=== PATIENT | male | born 1935 | race Caucasian/White ===

== ENCOUNTER → 2016-10-24 | Outpatient (CLI) | payer BC ==
[~2016-10-24] MED LIST: ADVIN25/60 INH; ALBU1AER9 INH; ALEN70TA4 PO; AMOX875T PO; ASPI81TA85 PO; CALC500C70 PO; CELE100C PO; CELE1CAP30 PO; CHOL100010 PO; CLB100 PO; DOXY100C76 PO; FBR PO; FERR325T51 PO; FLUO20CA35 PO; FURO40TA3 PO; IPRASOL4 INH; LEVO150T9 PO; MCRK20 PO; MULT-845 PO; OMEP20CA9 PO; OXGN; POTA20TA16 PO; PRVHFAIN INH; SPRIN/30 INH; SULF800T23 PO; TAMS0.4C59 PO; VERA1TAB53 PO
[2016-10-24 12:26] LABS: ALT/SGPT 86 U/L (12-78); BLOOD UREA NITROGEN 23 mg/dl (7-18); BUN/CREATININE RATIO 17.8 (10-20); CALCIUM 8.8 mg/dl (8.5-10.1); CARBON DIOXIDE 26 mmol/L (21-32); CHLORIDE 109 mmol/L (98-107); GLUCOSE 76 mg/dl (70-99); MAGNESIUM 2.1 mg/dl (1.8-2.4); POTASSIUM 3.9 mmol/L (3.5-5.1); SODIUM 144 mmol/L (136-145)
[2016-10-24 12:29] LABS: ALKALINE PHOSPHATASE 66 U/L (45-117); AST/SGOT 42 U/L (15-37)
== END | disposition home or self-care (01) ==
LOC: C.LAB1850 10:48
PROVIDERS: ATTEND Internal Medicine
DX: E77.8 Other disorders of glycoprotein metabolism (principal)

== ENCOUNTER → 2016-12-01 | Outpatient (CLI) | payer BC ==
--- NOTE | 2016-12-01 16:40 | DIAGNOSTIC IMAGING REPORT ---
CHEST 2 VIEWS ROUTINE CLINICAL HISTORY: R05 [id number] Wheezing dyspnea COMPARISON STUDY: 05/20/2016 FINDINGS: Mild stable cardiomegaly. Chronic atelectatic change versus basilar fibrotic change left base. Lungs otherwise appear clear. Diaphragms smooth. IMPRESSION: Mild cardia megaly. Chronic change left base. No acute process. Electronically signed by: Jose Boogie M.D. 12/01/2016 4:39 PM Dictated Date/Time: 12/01/2016 4:38 PM
== END | disposition home or self-care (01) ==
LOC: C.RAD1850 16:19
PROVIDERS: ATTEND Nurse Practitioner Adult Health
DX: R06.2 Wheezing (principal); R05 Cough; R74.0 Nonspecific elevation of levels of transaminase and lactic acid dehydrogenase [LDH]

== ENCOUNTER → 2016-12-01 | Outpatient (CLI) | payer BC | END | disposition home or self-care (01) | LOC: C.LAB1850 14:34 | PROVIDERS: ATTEND Internal Medicine | DX: R74.0 Nonspecific elevation of levels of transaminase and lactic acid dehydrogenase [LDH] (principal) ==

== ENCOUNTER → 2017-01-01 | Outpatient (CLI) | payer BC ==
[~2017-01-01] MED LIST changes: +ASPI81TA28 PO; +CALC600T9 PO; +CLB/200 PO; +FRS/40 PO; +FSM70 PO; +MULT-1093 PO; +PRLSR20 PO; +RANI150T3 PO; +VNTHFA/IN INH; +VRPSR180 PO
== END | disposition home or self-care (01) ==
LOC: C.LAB1850 10:36
PROVIDERS: ATTEND Internal Medicine Pulmonary Disease
DX: J44.0 Chronic obstructive pulmonary disease with (acute) lower respiratory infection (principal)

== ENCOUNTER → 2017-03-26 | Outpatient (CLI) | payer BC ==
[~2017-03-26] MED LIST changes: -ASPI81TA28 PO; -CALC600T9 PO; -CELE100C PO; -CLB/200 PO; -FERR325T51 PO; -FLUO20CA35 PO; -FRS/40 PO; -FSM70 PO; -MULT-1093 PO; -PRLSR20 PO; -RANI150T3 PO; -SULF800T23 PO; -VNTHFA/IN INH; -VRPSR180 PO
[2017-03-26 12:23] LABS: BASO % 0.3 %; BASO ABS # 0.03 K/uL (0-0.2); COMPLETE YES; EOS % 1.5 %; HEMATOCRIT 45.2 % (42-52); IG% 0.8 %; LYMPH % 13.9 %; LYMPH ABS # 1.49 K/uL (1.2-3.4); MEAN CELL VOLUME 93.2 fL (80-100); MEAN CORPUSCULAR HEMOGLOBIN 30.1 pg (25-34); MEAN CORPUSCULAR HGB CONC 32.3 g/dl (32-36); MEAN PLATELET VOLUME 12.5 fL (7.4-10.4); MONO % 11.8 %; NEUT % 71.7 %; PLATELET COUNT 228 K/uL (130-400); RED BLOOD COUNT 4.85 M/uL (4.7-6.1); WHITE BLOOD COUNT 10.73 K/uL (4.8-10.8)
[2017-03-26 12:43] LABS: ALT/SGPT 30 U/L (12-78); AST/SGOT 19 U/L (15-37); BLOOD UREA NITROGEN 20 mg/dl (7-18); BUN/CREATININE RATIO 14.1 (10-20); CARBON DIOXIDE 29 mmol/L (21-32); CHLORIDE 109 mmol/L (98-107); GLUCOSE 81 mg/dl (70-99); MAGNESIUM 2.3 mg/dl (1.8-2.4); SODIUM 144 mmol/L (136-145)
[2017-03-26 12:54] LABS: ALB/GLOB RATIO 0.8 (0.9-2); ALKALINE PHOSPHATASE 67 U/L (45-117)
== END | disposition home or self-care (01) ==
LOC: C.LAB1850 10:22
PROVIDERS: ATTEND Internal Medicine
DX: L03.116 Cellulitis of left lower limb (principal); R25.2 Cramp and spasm; E03.9 Hypothyroidism, unspecified; R23.8 Other skin changes

== ENCOUNTER → 2017-03-26 | Day surgery (SDC) | payer BC ==
[2017-03-03 15:03] VITALS: Ht 177.8 cm; Wt 105.5 kg
[~2017-03-26] VITALS: Ht 177.8 cm; Wt 105.5 kg
[~2017-03-26] MED LIST changes: +BUPIVACAINE 0.25% 2.5MG/ML PF 10 ML VIAL ONE; +CELE100C PO; +FLUO20CA35 PO; +LIDOCAINE HCL 1% MPF 5 ML VIAL ONE; +SULF800T23 PO
--- NOTE | 2017-03-26 14:42 | History & Physical Bridge - SC ---
H&P Re-Evaluation Bridge Note: I have examined the patient, reviewed the History & Physical and in the interval since the performance of the History & Physical I have noted the following changes of clinical significance: No changes noted
[2017-03-26 15:13] VITALS: TEMP 36.6
--- NOTE | 2017-03-26 15:24 | [facility] Operative Report ---
Operative Report Date of Service Mar 26, 2017. Operative Report DATE OF OPERATION: 03/26/2017 PREOPERATIVE DIAGNOSES: Chronic low back pain, bilateral L4-L5 and L5-S1 facet arthropathy. POSTOPERATIVE DIAGNOSIS: Same. PROCEDURE: Bialteral L4-L5 and L5-S1 medial branch blocks. INDICATIONS: The patient is a 81-year-old white male who presents with chronic low back pain. Decision was meant that this is also a pain generator at these facet levels and he presents today for a medial branch block to confirm that this is indeed generating the pain for the patient. PHYSICAL EXAMINATION: Pleasant male seated comfortably, in no apparent distress. He has discomfort with extension, and extension/rotation. He has normal lower extremity strength and sensation. Negative seated straight leg raises. CONSENT: Verbal and written consent was obtained from the patient. Risks and benefits were reviewed. Risks include but are not limited to epidural abscess and allergic reaction and wishes to proceed. PROCEDURE: The patient was taken back to the special procedures room of the [facility] where he was maintained in a prone position. Backside was cleansed with Betadine x3 and a dry sterile dressing was applied. Fluoroscope was used to identify the left L4, L5 transverse process junctions and sacral ala and the overlying skin was anesthetized with 2.5 mL of lidocaine 1% with a 25 gauge 1.5-inch needle. A 25 gauge 3.5 inch spinal needle was then directed targeting each transverse process junction, first at L4 then at L5, then the sacral ala He then underwent injection after negative aspiration of 1 mL of bupivacaine 0.25%. At each level, injection was well tolerated. Fluoroscope was used to identify the right L4, L5 transverse process junctions and sacral ala and the overlying skin was anesthetized with 2.5 mL of lidocaine 1% with a 25 gauge 1.5-inch needle. A 25 gauge 3.5 inch spinal needle was then directed targeting each transverse process junction, first at L4 then at L5, then the sacral ala He then underwent injection after negative aspiration of 1 mL of bupivacaine 0.25%. At each level, injection was well tolerated. DISPOSITION: 1. The patient is taken out into the discharge recovery area where he will be discharged home once discharge criteria have been met. 2. Follow up in the [facility] office in 2-4 weeks. I attest to the content of the Intraoperative Record and any orders documented therein. Any exceptions are noted below. I attest to the content of the Intraoperative Record and any orders documented therein. Any exceptions are noted below.
--- NOTE | 2017-03-26 15:26 | Discharge Instructions ---
Discharge Instructions Date of Service Mar 26, 2017. Visit Reason for Visit: Low Back Pain Discharge Discharge Diagnosis / Problem: Low back pain Discharge Goals Goal(s): Decrease discomfort, Improve function Activity Recommendations Activity Limitations: resume your previous activity Anesthesia . Post Anesthesia Instructions: If you have had General Anesthesia or IV Sedation: * Do not drive today. * Resume driving when surgeon permits. * Do not make important decisions or sign legal documents today. * Call surgeon for: 1. Temperature elevations greater than 101 degrees F. 2. Uncontrollable pain. 3. Excessive bleeding. 4. Persistent nausea and vomiting. 5. Medication intolerance (nausea, vomiting or rash). * For nausea and vomiting use only clear liquids such as: tea, soda, bouillon until nausea subsides, then gradually increase diet as tolerated. * If you have any concerns or questions, call your surgeon's office. If physician is unavailable and it is an emergency, call 911 or go to the nearest emergency room. . Diet Recommendations Recommended Home Diet: resume previous diet Procedures Procedures Performed: Bilateral L4-5, L5-S1 Medial branch Blocks. Pending Studies Studies pending at discharge: no Medical Emergencies . Who to Call and When: Medical Emergencies: If at any time you feel your situation is an emergency, please call 911 immediately. . Non-Emergent Contact Non-Emergency issues call your: Specialist . . "Provider Documentation" section prepared by Cody Mclaughlin. .
[2017-03-26 15:28] VITALS: BP 148/89; PULSE 86; O2SAT 95
== END | disposition home or self-care (01) ==
LOC: X.SURG 13:56
PROVIDERS: ATTEND Physical Medicine & Rehabilitation
DX: M54.5 Low back pain (principal); M12.9 Arthropathy, unspecified; E03.9 Hypothyroidism, unspecified; I10 Essential (primary) hypertension; J44.9 Chronic obstructive pulmonary disease, unspecified; Z79.82 Long term (current) use of aspirin; Z79.899 Other long term (current) drug therapy; L03.116 Cellulitis of left lower limb; R25.2 Cramp and spasm; R23.8 Other skin changes

== ENCOUNTER 2017-03-31 17:39 | Inpatient (IN) | payer BC, OTHER ==
[~2017-03-31] VITALS: Ht 177.8 cm; Wt 104.7 kg
[~2017-03-31 17:39] MED LIST changes: -AMOX875T PO; -BUPIVACAINE 0.25% 2.5MG/ML PF 10 ML VIAL ONE; -CELE100C PO; -CELE1CAP30 PO; -FLUO20CA35 PO; -LIDOCAINE HCL 1% MPF 5 ML VIAL ONE; -POTA20TA16 PO; -PRVHFAIN INH; -SULF800T23 PO; -TAMS0.4C59 PO
[2017-03-31] MEDS ORDERED: CEFTRIAXONE SOD INJ 1 GM ADDVIAL IV STA (18:20)
[2017-03-31] MEDS ORDERED: VANCOMYCIN INJ 2,000 MG in SODIUM CHLORIDE 0.9% 250ML 250 ML IV STA (18:28)
[2017-03-31] MEDS ORDERED: VANCOMYCIN INJ 2,000 MG in SODIUM CHLORIDE 0.9% 500ML 500 ML IV STA (19:02)
[2017-03-31] MEDS ORDERED: CHOL100010 PO (19:03)
[2017-03-31] MEDS ORDERED: CELE1CAP30 PO (19:03)
[2017-03-31] MEDS ORDERED: AMOX875T PO (19:03)
[2017-03-31] MEDS ORDERED: PRVHFAIN INH (19:03)
[2017-03-31] MEDS ORDERED: POTA20TA16 PO (19:03)
[2017-03-31 19:31] LABS: BASO % 0.2 %; BASO ABS # 0.02 K/uL (0-0.2); COMPLETE YES; EOS % 1.1 %; IG% 0.5 %; LYMPH % 13.7 %; LYMPH ABS # 1.25 K/uL (1.2-3.4); MEAN CELL VOLUME 90.6 fL (80-100); MEAN CORPUSCULAR HEMOGLOBIN 29.4 pg (25-34); MEAN CORPUSCULAR HGB CONC 32.5 g/dl (32-36); MEAN PLATELET VOLUME 12.1 fL (7.4-10.4); MONO % 11.4 %; NEUT % 73.1 %; PLATELET COUNT 220 K/uL (130-400); WHITE BLOOD COUNT 9.12 K/uL (4.8-10.8)
[2017-03-31 19:53] LABS: BUN/CREATININE RATIO 15.3 (10-20); CALCIUM 8.8 mg/dl (8.5-10.1); CREATININE 1.3 mg/dl (0.60-1.40); POTASSIUM 3.7 mmol/L (3.5-5.1)
--- NOTE | 2017-03-31 20:37 | EMERGENCY ROOM VISIT NOTE ---
History First contact with patient: 17:56 Chief Complaint: LEG PAIN,LEG INJURY Stated Complaint: INFECTED RIGHT LEG History of Present Illness The patient is a 81 year old male with Hx significant for MRSA in previous encounter who presents to the Emergency Room with complaints of RLE Cellulitis. Patient was seen by PCP a week ago and was placed on 7 day course of Augmentin of which patient was due to finish tmr. While on Augmentin, RLE cellulitis has worsened with associated pain , drainage of pus from an erupted vesicle. Patient has been dressing it daily without applying any medication and has already been referred to outpatient wound clinic. Patient talked to Dr. Hawkins yesterday who advised him to go into ED. No fever, chills, N/V, abdominal pain , change in stool He has no hx of Diabetes or PVD. Review of Systems Pt denies headache, change in vision, fevers, chest pain, shortness of breath, nausea, vomiting, diarrhea, pain with urination, and melena. Past Medical/Surgical History Medical Problems: (1) Benign hypertension (2) Chronic obstructive lung disease Social History Smoking Status: Former Smoker Alcohol Use: none Drug Use: none Marital Status: Housing Status: lives with family Occupation Status: employed Current/Historical Medications Scheduled Alendronate Sodium (Fosamax), 70 MG PO WK Amoxicillin & Pot Clavulanate (Augmentin 875-125 mg), 1 TAB PO Q12 Aspirin (Aspirin Dr), 81 MG PO HS Calcium/Vitamin D (Os-Ash 500 Plus D), 1 TAB PO QAM Celecoxib (Celecoxib), 200 MG PO BID Cholecalciferol (Vitamin D), 1,000 UNITS PO HS Doxycycline Monohydrate (Monodox), 100 MG PO UD Fluticasone Prop/Salmeterol (Advair Diskus 250/50 60 Dose), 1 PUFF INH BID Furosemide (Lasix), 40 MG PO QAM Home O2 Therapy (Oxygen), 2 LITERS NA HS Ipratropium-Albuterol (Duoneb), 1 TREATMENT INH QID Levothyroxine Sodium (Levothyroxine Sodium), 150 MCG PO QAM Multiple Vitamins W/ Minerals (Centrum Silver Adult 50+), 1 TAB PO QAM Omeprazole (Prilosec), 20 MG PO Q2D Potassium Ext Rel (Klor-Con), 20 MEQ PO QAM Tiotropium [place] (Spiriva Handihaler), 1 CAP INH QAM Verapamil Hcl (Verapamil Hcl Er), 180 MG PO HS Scheduled PRN Albuterol (Ventolin Hfa), 2 PUFFS INH Q4 PRN for SOB/Wheezing Allergies Coded Allergies: Clarithromycin (Verified Allergy, Intermediate, RASH, 03/31/17) Physical Exam Vital Signs Date Time Temp Pulse Resp B/P (MAP) Pulse Ox O2 Delivery O2 Flow Rate FiO2 03/31/17 19:35 98 20 139/91 90 Room Air 03/31/17 17:45 36.6 103 20 143/87 93 Room Air Physical Exam GENERAL: alert, well appearing, , no distress, non-toxic EYE EXAM: normal conjunctiva, PERRL and EOM's grossly intact OROPHARYNX: no exudate, no erythema, lips, buccal mucosa, and tongue normal and mucous membranes are moist NECK: supple, no adenopathy, non-tender LUNGS: Clear to auscultation. Normal chest wall mechanics HEART: no murmurs, S1 normal and S2 normal ABDOMEN: abdomen soft, non-tender, normo-active bowel sounds, no masses, no rebound or guarding. BACK: Back is symmetrical on inspection and there is no deformity, no midline tenderness, no CVA tenderness. SKIN: Distal anterior RLE; 4x5 cm area of ruptured vesicle, surrounding erythema, tenderness to palpation UPPER EXTREMITIES: upper extremities are grossly normal. NEURO EXAM: Normal sensorium, cranial nerves II-XII grossly intact, normal speech, no gross weakness of arms, no gross weakness of legs. Medical Decision & Procedures Laboratory Results 03/31/17 19:07 Red Blood Count 5.30, Mean Corpuscular Volume 90.6, Mean Corpuscular Hemoglobin 29.4, Mean Corpuscular Hemoglobin Concent 32.5, Mean Platelet Volume 12.1, Neutrophils (%) (Auto) 73.1, Lymphocytes (%) (Auto) 13.7, Monocytes (%) (Auto) 11.4, Eosinophils (%) (Auto) 1.1, Basophils (%) (Auto) 0.2, Neutrophils # (Auto ) 6.66, Lymphocytes # (Auto) 1.25, Monocytes # (Auto) 1.04, Eosinophils # (Auto ) 0.10, Basophils # (Auto) 0.02 03/31/17 19:07 Test 03/31/17 19:07 White Blood Count 9.12 K/uL (4.8-10.8) Red Blood Count 5.30 M/uL (4.7-6.1) Hemoglobin 15.6 g/dL (14.0-18.0) Hematocrit 48.0 % (42-52) Mean Corpuscular Volume 90.6 fL (80-100) Mean Corpuscular Hemoglobin 29.4 pg (25-34) Mean Corpuscular Hemoglobin Concent 32.5 g/dl (32-36) Platelet Count 220 K/uL (130-400) Mean Platelet Volume 12.1 fL (7.4-10.4) Neutrophils (%) (Auto) 73.1 % Lymphocytes (%) (Auto) 13.7 % Monocytes (%) (Auto) 11.4 % Eosinophils (%) (Auto) 1.1 % Basophils (%) (Auto) 0.2 % Neutrophils # (Auto) 6.66 K/uL (1.4-6.5) Lymphocytes # (Auto) 1.25 K/uL (1.2-3.4) Monocytes # (Auto) 1.04 K/uL (0.11-0.59) Eosinophils # (Auto) 0.10 K/uL (0-0.5) Basophils # (Auto) 0.02 K/uL (0-0.2) RDW Standard Deviation 44.8 fL (36.4-46.3) RDW Coefficient of Variation 13.7 % (11.5-14.5) Immature Granulocyte % (Auto) 0.5 % Immature Granulocyte # (Auto) 0.05 K/uL (0.00-0.02) Anion Gap 6.0 mmol/L (3-11) Est Creatinine Clear Calc Drug Dose 55.3 ml/min Estimated GFR () 59.7 Estimated GFR (Non- 51.5 BUN/Creatinine Ratio 15.3 (10-20) Calcium Level 8.8 mg/dl (8.5-10.1) Medications Administered Medications (Trade) Dose Ordered Sig/Kellie Route Start Time Stop Time Status Last Admin Dose Admin Ceftriaxone Sodium (Rocephin Inj) 1 gm NOW STAT IV 03/31/17 18:20 03/31/17 18:27 DC 03/31/17 19:37 1 GM Vancomycin HCl 2000 mg/Sodium Chloride 540 ml @ 200 mls/hr NOW STAT IV 03/31/17 19:02 03/31/17 21:43 03/31/17 19:37 200 MLS/HR Medical Decision 81 yo M with hx significant for Postive MRSA, presenting with RLE Cellulitis after failed outpatient treatment with Augmentin, nontoxic, afebrile with normal white count CBC unremarkable Blood cx's ordered Started IV Rocephin 1 gm Started Vancomycin 2 gm Wound cx ordered Based on failure of outpatient treatment and progressive nature of cellulitis, the decision was made that patient would benefit from admission. I discussed case with Dr. Maradiaga who agreed to evaluate patient for admission. Impression Primary Impression: Cellulitis of right leg Departure Information Dispostion Admitted as an inpatient Referrals Pro,Tyler Gomez M.D. (PCP) Patient Instructions My [facility] Resident Tracking Resident Involvement: Resident Care Provided Care Provided: Adult ED
--- NOTE | 2017-03-31 21:32 | EMERGENCY ROOM VISIT NOTE ---
History Report prepared by Nael: Domenica Simpson Under the Supervision of: Dr. Mark Rubio M.D. First contact with patient: 17:50 Chief Complaint: LEG PAIN,LEG INJURY Stated Complaint: INFECTED RIGHT LEG History of Present Illness The patient is a 81 year old male who presents to the Emergency Room with complaints of a constant right leg infection beginning 1 week ago. The patient states that the wound started as a blister that may have come from a bug bite and gradually worsened. He complains of redness, drainage, and pain in the surrounding area. He reports that he saw his doctor 5 days ago and had the wound lanced. He notes that he has been on a 7 day course of Augmentin for 6 days and has not had relief of his symptoms. The patient does not believe that his doctor cultured the wound. He notes a history of COPD and MRSA in his lungs. Pt denies LOC, headache, fevers, chills, diaphoresis, visual changes, neck pain, chest pain, breathing difficulties, nausea, vomiting, abdominal pain , back pain, melena, hematochezia, urinary symptoms, numbness, weakness, lymphadenopathy, rash, or other complaints. Source of History: patient Onset: 1 week ago Position: leg (right) Quality: other (infection) Timing: constant, worsening Note: He complains of redness, drainage, and pain in the surrounding area. Review of Systems See HPI for pertinent positives and negatives. A total of ten systems were reviewed and were otherwise negative. Past Medical & Surgical Medical Problems: (1) Benign hypertension (2) Chronic obstructive lung disease Family History No pertinent family history stated. Social History Smoking Status: Former Smoker Alcohol Use: none Drug Use: none Marital Status: Housing Status: lives with family Occupation Status: employed Current/Historical Medications Scheduled Alendronate Sodium (Fosamax), 70 MG PO WK Amoxicillin & Pot Clavulanate (Augmentin 875-125 mg), 1 TAB PO Q12 Aspirin (Aspirin Dr), 81 MG PO HS Calcium/Vitamin D (Os-Ash 500 Plus D), 1 TAB PO QAM Celecoxib (Celecoxib), 200 MG PO BID Cholecalciferol (Vitamin D), 1,000 UNITS PO HS Doxycycline Monohydrate (Monodox), 100 MG PO UD Fluticasone Prop/Salmeterol (Advair Diskus 250/50 60 Dose), 1 PUFF INH BID Furosemide (Lasix), 40 MG PO QAM Home O2 Therapy (Oxygen), 2 LITERS NA HS Ipratropium-Albuterol (Duoneb), 1 TREATMENT INH QID Levothyroxine Sodium (Levothyroxine Sodium), 150 MCG PO QAM Multiple Vitamins W/ Minerals (Centrum Silver Adult 50+), 1 TAB PO QAM Omeprazole (Prilosec), 20 MG PO Q2D Potassium Ext Rel (Klor-Con), 20 MEQ PO QAM Tiotropium [place] (Spiriva Handihaler), 1 CAP INH QAM Verapamil Hcl (Verapamil Hcl Er), 180 MG PO HS Scheduled PRN Albuterol (Ventolin Hfa), 2 PUFFS INH Q4 PRN for SOB/Wheezing Allergies Coded Allergies: Clarithromycin (Verified Allergy, Intermediate, RASH, 03/31/17) Physical Exam Vital Signs Date Time Temp Pulse Resp B/P (MAP) Pulse Ox O2 Delivery O2 Flow Rate FiO2 03/31/17 19:35 98 20 139/91 90 Room Air 03/31/17 17:45 36.6 103 20 143/87 93 Room Air Physical Exam GENERAL: Awake, alert, well-appearing, in no distress HENT: Normocephalic, atraumatic. Oropharynx unremarkable. EYES: Normal conjunctiva. Sclera non-icteric. NECK: Supple. No nuchal rigidity. FROM. No JVD. RESPIRATORY: Scattered rhonchi CARDIAC: Regular rate, normal rhythm. Extremities warm and well perfused. Pulses equal. ABDOMEN: Soft, non-distended. No tenderness to palpation. No rebound or guarding. No masses. RECTAL: Deferred. MUSCULOSKELETAL: Chest examination reveals no tenderness. The back is symmetrical on inspection without obvious abnormality. There is no CVA tenderness to palpation. No joint edema. LOWER EXTREMITIES: 2+ lower extremity edema, slightly worse on the right. Erythema from the right knee to ankle joint anteriorly. Grade 2 ulcer 4 by 5cm, mild serous drainage, warm and slightly tender to the touch. NEURO: Normal sensorium. No sensory or motor deficits noted. SKIN: No rash or jaundice noted. Medical Decision & Procedures Laboratory Results 03/31/17 19:07 Red Blood Count 5.30, Mean Corpuscular Volume 90.6, Mean Corpuscular Hemoglobin 29.4, Mean Corpuscular Hemoglobin Concent 32.5, Mean Platelet Volume 12.1, Neutrophils (%) (Auto) 73.1, Lymphocytes (%) (Auto) 13.7, Monocytes (%) (Auto) 11.4, Eosinophils (%) (Auto) 1.1, Basophils (%) (Auto) 0.2, Neutrophils # (Auto ) 6.66, Lymphocytes # (Auto) 1.25, Monocytes # (Auto) 1.04, Eosinophils # (Auto ) 0.10, Basophils # (Auto) 0.02 03/31/17 19:07 Test 03/31/17 19:07 White Blood Count 9.12 K/uL (4.8-10.8) Red Blood Count 5.30 M/uL (4.7-6.1) Hemoglobin 15.6 g/dL (14.0-18.0) Hematocrit 48.0 % (42-52) Mean Corpuscular Volume 90.6 fL (80-100) Mean Corpuscular Hemoglobin 29.4 pg (25-34) Mean Corpuscular Hemoglobin Concent 32.5 g/dl (32-36) Platelet Count 220 K/uL (130-400) Mean Platelet Volume 12.1 fL (7.4-10.4) Neutrophils (%) (Auto) 73.1 % Lymphocytes (%) (Auto) 13.7 % Monocytes (%) (Auto) 11.4 % Eosinophils (%) (Auto) 1.1 % Basophils (%) (Auto) 0.2 % Neutrophils # (Auto) 6.66 K/uL (1.4-6.5) Lymphocytes # (Auto) 1.25 K/uL (1.2-3.4) Monocytes # (Auto) 1.04 K/uL (0.11-0.59) Eosinophils # (Auto) 0.10 K/uL (0-0.5) Basophils # (Auto) 0.02 K/uL (0-0.2) RDW Standard Deviation 44.8 fL (36.4-46.3) RDW Coefficient of Variation 13.7 % (11.5-14.5) Immature Granulocyte % (Auto) 0.5 % Immature Granulocyte # (Auto) 0.05 K/uL (0.00-0.02) Anion Gap 6.0 mmol/L (3-11) Est Creatinine Clear Calc Drug Dose 55.3 ml/min Estimated GFR () 59.7 Estimated GFR (Non- 51.5 BUN/Creatinine Ratio 15.3 (10-20) Calcium Level 8.8 mg/dl (8.5-10.1) Laboratory results reviewed by me Medications Administered Medications (Trade) Dose Ordered Sig/Kellie Route Start Time Stop Time Status Last Admin Dose Admin Ceftriaxone Sodium (Rocephin Inj) 1 gm NOW STAT IV 03/31/17 18:20 03/31/17 18:27 DC 03/31/17 19:37 1 GM Vancomycin HCl 2000 mg/Sodium Chloride 540 ml @ 200 mls/hr NOW STAT IV 03/31/17 19:02 03/31/17 21:43 03/31/17 19:37 200 MLS/HR ED Course 1750: The patient was evaluated in room B9. A complete history and physical exam was performed. 0: Rocephin Inj 1gm IV. 1827: Vancomycin HCl 2000mg/Sodium Chloride 290ml @ 25mls/hr IV. 2015: Discussed the patient's case with Dr. Maradiaga of [facility] [place]. The patient will be evaluated for further treatment and disposition. 2123: Upon reexamination, the patient was doing well. I discussed the test results and treatment plan with him. The patient will be evaluated for further management. Medical Decision Medication Reconciliation: I attest that I have personally reviewed the patient' s current medication list Patient was found to have a slightly elevated blood pressure due to circumstances. I do not believe that the patient requires hypertension monitoring. Triage Nursing notes reviewed. The patient's presentation and history were concerning for leg swelling. Etiologies such as cellulitis, DVT, joint effusion, infection, trauma, muscular , lymphedema, idiopathic, CHF, as well as others were entertained. The patient was evaluated. His leg was erythematous. His condition is worsening despite 6 days of oral antibiotics as an outpatient. His history is concerning for MRSA. Cultures were obtained. Labs performed. His CBC and chemistry panel were unremarkable. The patient was given Rocephin and vancomycin. I discussed further treatment in the hospital as he is failing outpatient management. The patient was in agreement. Consultation was made with internal medicine. The patient was evaluated in the Emergency Room for further management. The patient was seen and examined with Dr. Bucio, resident physician. We discussed the case and treatments ordered, reviewed the results, and determine the disposition. Please refer to the resident's note for additional details. I have been directly involved with the management and disposition as well as independently evaluated the patient as documented in this note. Consults Time Called: 2011 Consulting Physician: Dr. Maradiaga - [facility] [place] Returned Call: 2015 Discussed the patient's case with Dr. Maradiaga of [facility] [place]. The patient will be evaluated for further treatment and disposition. Impression Primary Impression: Cellulitis of right leg Additional Impression: Failure of outpatient treatment Scribe Attestation The scribe's documentation has been prepared under my direction and personally reviewed by me in its entirety. I confirm that the note above accurately reflects all work, treatment, procedures, and medical decision making performed by me. Departure Information Dispostion Being Evaluated By Hospitalist Referrals Tyler Hawkins M.D. (PCP) Patient Instructions My [facility] Problem Qualifiers
[2017-03-31] MEDS ORDERED: ACETAMINOPHEN 325 MG TAB PO PRN (21:45)
[2017-03-31] MEDS ORDERED: ONDANSETRON INJ 2 MG/ML 2 ML VIAL IV PRN (21:45)
--- NOTE | 2017-03-31 22:10 | History and Physical ---
History & Physical Date & Time of Service: Mar 31, 2017 at 21:53 Chief Complaint: Infected Right Leg Primary Care Physician: Tyler Hawkins M.D. History of Present Illness Source: patient Mr Wesley is an 81 year old male with bilateral lower extremity venous stasis who presents with worsening cellulitis despite outpatient oral antibiotics therapy. He initially noticed an ulcer on his right lower nielsen on March 16. He say his PCP who tried to take off a fluid sample on March 19 but it ended up popping and it was fully drained. He followed up on March 26 and had some surrounding erythematous changes so was started on augmentin. He has been compliant on this since then however the erythema has increased in size. He was seen by his PCP again yesterday and made a referral to wound care clinic (appt on Thursday), however it has continued to get worse since then and so he was advised by his PCP to come to the ER. He had a previous respiratory sputum sample growing MRSA in December performed due to chronic bronchitis but he was unaware of this result until last week when he saw Dr Mclaughlin for his spinal stenosis. He denies any increase in his back pain since the injections for spinal stenosis. He notes increased leg swelling over the last month by around 20-25%. He notes being less active during this time due to spinal stenosis and this ongoing infection. He denies any liver, heart of kidney problems. His PCP did increase his dose of lasix during this time but it has not made any difference. The patient intermittently wears compression stockings. He denies any fevers, joint or muscle pains. Past Medical/Surgical History Medical Problems: COPD Night time oxygen requirement of 2L Benign HTN Spinal stenosis Bilateral venous stasis Hypothyroidism Osteoporosis Surgical History: Bilateral cataract surgery Left intertrochanteric fracture s/p repair with IM nail Left knee medial hemiarthroplasty Social History Smoking Status: Former Smoker (30-40 pack-years) Smokeless Tobacco Use: No Alcohol Use: socially Drug Use: none Marital Status: Occupational Status: employed Immunizations History of Influenza Vaccine: N/A History of Tetanus Vaccine?: Yes History of Pneumococcal: Yes History of Hepatitis B Vaccine: No Multi-Drug Resistant Organisms History of MDRO: Yes Type of MDRO: MRSA Allergies Coded Allergies: Clarithromycin (Verified Allergy, Intermediate, RASH, 03/31/17) Home Medications Scheduled Alendronate Sodium (Fosamax), 70 MG PO WK Amoxicillin & Pot Clavulanate (Augmentin 875-125 mg), 1 TAB PO Q12 Aspirin (Aspirin Dr), 81 MG PO HS Calcium/Vitamin D (Os-Ash 500 Plus D), 1 TAB PO QAM Celecoxib (Celecoxib), 200 MG PO BID Cholecalciferol (Vitamin D), 1,000 UNITS PO HS Doxycycline Monohydrate (Monodox), 100 MG PO UD Fluticasone Prop/Salmeterol (Advair Diskus 250/50 60 Dose), 1 PUFF INH BID Furosemide (Lasix), 40 MG PO QAM Home O2 Therapy (Oxygen), 2 LITERS NA HS Ipratropium-Albuterol (Duoneb), 1 TREATMENT INH QID Levothyroxine Sodium (Levothyroxine Sodium), 150 MCG PO QAM Multiple Vitamins W/ Minerals (Centrum Silver Adult 50+), 1 TAB PO QAM Omeprazole (Prilosec), 20 MG PO Q2D Potassium Ext Rel (Klor-Con), 20 MEQ PO QAM Tiotropium [place] (Spiriva Handihaler), 1 CAP INH QAM Verapamil Hcl (Verapamil Hcl Er), 180 MG PO HS Scheduled PRN Albuterol (Ventolin Hfa), 2 PUFFS INH Q4 PRN for SOB/Wheezing Review of Systems Constitutional: No fever, No chills Eyes: No worsening of vision Respiratory: + dyspnea on exertion (chronic, no worse than normal, COPD), No cough, No shortness of breath Cardiovascular: No chest pain Abdomen: No pain, No nausea, No vomiting, No diarrhea, No constipation, No GI bleeding Musculoskeletal: No joint pain, No muscle pain Genitourinary - Male: No hematuria, No dysuria, No urinary frequency, No urinary urgency Physical Exam Vital Signs Date Time Temp Pulse Resp B/P (MAP) Pulse Ox O2 Delivery O2 Flow Rate FiO2 03/31/17 21:35 84 20 152/87 96 Room Air 03/31/17 19:35 98 20 139/91 90 Room Air 03/31/17 17:45 36.6 103 20 143/87 93 Room Air General Appearance: no apparent distress, + obese Eyes: normal inspection (pupils equal) Neck: supple, no JVD Respiratory/Chest: chest non-tender, lungs clear, normal breath sounds, no respiratory distress, no accessory muscle use Cardiovascular: regular rate, rhythm, no murmur, normal peripheral pulses Abdomen/GI: normal bowel sounds, non tender, soft Extremities/Musculoskelatal: no calf tenderness, normal capillary refill, + pedal edema (3+ bilaterally to mid thigh) Neurologic/Psych: manager library II-XII nml as tested (no facial droop), no motor/sensory deficits (no peripheral neuropathy or foot ulcers noted) Skin: + pertinent finding (erythematous region marked covering 25-50% of RLE around a 4cm circular anterior ulcer on right nielsen) Diagnostics Laboratory Results Results Past 24 Hours Test 03/31/17 19:07 Range/Units White Blood Count 9.12 4.8-10.8 K/uL Red Blood Count 5.30 4.7-6.1 M/uL Hemoglobin 15.6 14.0-18.0 g/dL Hematocrit 48.0 42-52 % Mean Corpuscular Volume 90.6 80-100 fL Mean Corpuscular Hemoglobin 29.4 25-34 pg Mean Corpuscular Hemoglobin Concent 32.5 32-36 g/dl Platelet Count 220 130-400 K/uL Mean Platelet Volume 12.1 7.4-10.4 fL Neutrophils (%) (Auto) 73.1 % Lymphocytes (%) (Auto) 13.7 % Monocytes (%) (Auto) 11.4 % Eosinophils (%) (Auto) 1.1 % Basophils (%) (Auto) 0.2 % Neutrophils # (Auto) 6.66 1.4-6.5 K/uL Lymphocytes # (Auto) 1.25 1.2-3.4 K/uL Monocytes # (Auto) 1.04 0.11-0.59 K/uL Eosinophils # (Auto) 0.10 0-0.5 K/uL Basophils # (Auto) 0.02 0-0.2 K/uL RDW Standard Deviation 44.8 36.4-46.3 fL RDW Coefficient of Variation 13.7 11.5-14.5 % Immature Granulocyte % (Auto) 0.5 % Immature Granulocyte # (Auto) 0.05 0.00-0.02 K/uL Sodium Level 140 136-145 mmol/L Potassium Level 3.7 3.5-5.1 mmol/L Chloride Level 106 98-107 mmol/L Carbon Dioxide Level 28 21-32 mmol/L Anion Gap 6.0 3-11 mmol/L Blood Urea Nitrogen 20 7-18 mg/dl Creatinine 1.30 0.60-1.40 mg/dl Est Creatinine Clear Calc Drug Dose 55.3 ml/min Estimated GFR () 59.7 Estimated GFR (Non- 51.5 BUN/Creatinine Ratio 15.3 10-20 Random Glucose 91 70-99 mg/dl Calcium Level 8.8 8.5-10.1 mg/dl Microbiology Results 03/31/17 Blood Culture, Received Pending 03/31/17 Blood Culture, Received Pending 03/31/17 Gram Stain, Received Pending 03/31/17 Wound Culture, Received Pending Impression Assessment and Plan 81 year old male, not immunosuppressed, failed outpatient treatment for cellulitis with augmentin, Hx of MRSA sputum sample in December (no previous MRSA soft tissue infections), complicated by bilateral venous stasis and nielsen ulcer. Cellulitis - need for MRSA coverage given previous sputum sample positive - Vanc + ceftriaxone given in the ER. Will continue treatment with IV vancomycin - Suspect he can be transitioned to PO antibiotics in the next 1-2 days to cover MRSA - blood cultures taken Ulcer of right nielsen - consult wound care nurse for dressing regimen. - elevate leg as below - wound culture taken Bilateral leg edema - venous stasis - cut down lasix back to 20 mg daily as no real benefit with venous stasis and likely to make CKD worse. Echo with mild diastolic dysfunction in May 2016, LVEF 70%, no significant right heart failure to explain the longstanding swelling. Recent LFTs normal with mildly reduced albumin also unlikely to be a major cause. CKD stage 3a also unlikely to be major cause. - b/l venous doppler to rule out DVT - elevate legs - if US for DVT b/l negative then can use compression stocking/MANAN/SCD on left leg. Non acute medical problems - osteoporosis, HTN, COPD, spinal stenosis, hypothyroidism - no change to outpatient medical regimens VTE Prophylaxis - enoxaparin 40 mg SQ daily Code - Full as dully discussed with the patient and his . Disposition - admission criteria met for cellulitis with failed outpatient antibiotics Resident Physician Supervision Note: I was present with Dr. Wu during the history and exam. I discussed the case with the resident and agree with the findings and plan as documented in the note. Any exceptions or clarifications are listed here: 81 y/o M Hx chronic LE edema, CKD and MRSA infection. Developed cellulitis of RLE 1 week prior which was treated with Augmentin to no avail. He has a large shallow ulcer on his L nielsen - denies fevers or rigors. OE AAO x 3 S1,2 R - very faint sounds CTAB NT, ND, BS+ Edema cellulitis and shallow ulcer of LLE P: Placed on Vanc and Ceftriaxone - area delineated CKD may be worsening vs acute injury - IVF - recheck BMP AM Wound care consulted Documented By: Ivan Maradiaga Level of Care Telemetry Resuscitation Status FULL RESUSCITATION VTE Prophylaxis VTE Risk Assessment Done? Y/N: Yes Risk Level: High Given or contraindicated: Enoxaparin (Lovenox)SQ Additional Copies To Tyler Hawkins M.D. Resident Tracking Resident Involvement: Resident Care Provided Care Provided: Adult ED
[2017-03-31] MEDS ORDERED: ALBUTEROL HFA 8 GM INHALER INH PRN (22:15)
[2017-03-31 23:00] VITALS: BP 145/93; PULSE 89; TEMP 36.6; O2SAT 94; Ht 177.8 cm; Wt 104.7 kg
[2017-03-31] MEDS ORDERED: VANCOMYCIN CONSULT ACTIVE PRN (23:45)
[2017-04-01] MEDS: FLUTICASONE/SALMETEROL 250/50 (ADVAIR) 14 PUFF/1 INHALER INH SCH ×3 (00:27→20:09)
[2017-04-01] MEDS: CHOLECALCIFEROL 1000 INTER.UNIT TAB PO SCH ×2 (00:28→21:51)
[2017-04-01] MEDS: VERAPAMIL HCL 180 MG TABCR PO SCH ×2 (00:28→21:51)
[2017-04-01] MEDS: CeleBREX 200 MG CAP PO SCH ×3 (00:28→20:10)
[2017-04-01] MEDS: ASPIRIN 81 MG ECTAB PO SCH ×2 (00:28→21:51)
[2017-04-01] MEDS ORDERED: VANCOMYCIN INJ 1,500 MG in SODIUM CHLORIDE 0.9% 500ML 500 ML IV SCH ×2 (06:00→22:00)
[2017-04-01] MEDS: LEVOTHYROXINE 150 MCG TAB PO SCH (06:10)
--- NOTE | 2017-04-01 07:17 | DIAGNOSTIC IMAGING REPORT ---
VENOUS DOPPLER LWR EXT BILA CLINICAL HISTORY: 81 years-old Male presenting with bilateral edematous legs with right sided cellulitis. TECHNIQUE: Real-time grayscale and color and spectral Doppler ultrasound imaging of the bilateral lower extremities was performed. Compression and augmentation were also utilized. COMPARISON: 07/30/2015. FINDINGS: Right: Common femoral vein: Patent. Femoral vein: Patent. Greater saphenous vein: Patent. Popliteal vein: Patent. Calf veins: Poorly visualized secondary to subcutaneous edema. Left: Common femoral vein: Patent. Femoral vein: Patent. Greater saphenous vein: Patent. Popliteal vein: Patent. Calf veins: Poorly visualized secondary to subcutaneous edema. IMPRESSION: No evidence of deep venous thrombosis. Electronically signed by: Tony Caal M.D. 04/01/2017 7:16 AM Dictated Date/Time: 04/01/2017 7:15 AM
[2017-04-01 07:25] VITALS: BP 111/71; PULSE 83; TEMP 36.6; O2SAT 91
[2017-04-01] MEDS ORDERED: IV FLUIDS COMPLETED PRN (07:45)
[2017-04-01] MEDS: CEROVITE ADV FORMULA TAB PO SCH (08:04)
[2017-04-01] MEDS: TIOTROPIUM BROMIDE 5 PUFF/90 MCG INH INH SCH (08:04)
[2017-04-01] MEDS: FUROSEMIDE 20 MG TAB PO SCH (08:04)
[2017-04-01] MEDS: POTASSIUM CHLORIDE 20 MEQ TABCR PO SCH (08:04)
[2017-04-01] MEDS: CALCIUM 600MG + VIT D 400 IU TAB PO SCH (08:04)
[2017-04-01] MEDS: PANTOprazole SOD 40 MG TAB PO SCH (08:04)
[2017-04-01 08:17] LABS: PARTIAL THROMBOPLASTIN RATIO 1.2; PROTHROMBIN TIME (PATIENT) 10.7 SECONDS (9.0-12.0)
[2017-04-01] MEDS: ENOXAPARIN 40 MG/0.4 ML SYR SQ SCH (09:01)
[2017-04-01 10:08] LABS: HEMATOCRIT 40.7 % (42-52); MEAN CELL VOLUME 90.6 fL (80-100); MEAN CORPUSCULAR HEMOGLOBIN 30.7 pg (25-34); MEAN CORPUSCULAR HGB CONC 33.9 g/dl (32-36); MEAN PLATELET VOLUME 12.2 fL (7.4-10.4); PLATELET COUNT 188 K/uL (130-400); RED BLOOD COUNT 4.49 M/uL (4.7-6.1); WHITE BLOOD COUNT 12.03 K/uL (4.8-10.8)
[2017-04-01 10:17] LABS: CREATININE 1.1 mg/dl (0.60-1.40)
[2017-04-01 10:18] LABS: CALCIUM 8.4 mg/dl (8.5-10.1); POTASSIUM 3.9 mmol/L (3.5-5.1)
--- NOTE | 2017-04-01 11:01 | Pharmacy Progress Note ---
Pharmacy Abx Initial Consult Date of Service Apr 01, 2017. Pharmacy Dosing Scope Date of Consult: 03/31/17 Consultation requested by: Dr. Wu Pharmacy is consulted to initiate vancomycin IV dosing therapy, order appropriate labs and adjust drug dose/frequency. Subjective The patient is a 81 year old male admitted on Mar 31, 2017. Objective Height (Feet): 5 Height (Inches): 10.00 Weight (Kilograms): 104.700 (BMI 33.1) Vital Signs (Past 12Hrs) Vital Signs Past 12 Hours Date Time Temp Pulse Resp B/P (MAP) Pulse Ox O2 Delivery O2 Flow Rate FiO2 04/01/17 08:00 Room Air 04/01/17 07:25 36.6 83 20 111/71 (84) 91 Room Air 03/31/17 23:00 36.6 89 16 145/93 94 Room Air Lab Results (24Hrs) Laboratory Tests (24 Hours) Test 03/31/17 19:07 04/01/17 07:39 White Blood Count 9.12 K/uL (4.8-10.8) 12.03 K/uL (4.8-10.8) H Red Blood Count 5.30 M/uL (4.7-6.1) Hemoglobin 15.6 g/dL (14.0-18.0) Hematocrit 48.0 % (42-52) Mean Corpuscular Volume 90.6 fL (80-100) Mean Corpuscular Hemoglobin 29.4 pg (25-34) Mean Corpuscular Hemoglobin Concent 32.5 g/dl (32-36) Platelet Count 220 K/uL (130-400) Mean Platelet Volume 12.1 fL (7.4-10.4) H Neutrophils (%) (Auto) 73.1 % Lymphocytes (%) (Auto) 13.7 % Monocytes (%) (Auto) 11.4 % Eosinophils (%) (Auto) 1.1 % Basophils (%) (Auto) 0.2 % Neutrophils # (Auto) 6.66 K/uL (1.4-6.5) H Lymphocytes # (Auto) 1.25 K/uL (1.2-3.4) Monocytes # (Auto) 1.04 K/uL (0.11-0.59) H Eosinophils # (Auto) 0.10 K/uL (0-0.5) Basophils # (Auto) 0.02 K/uL (0-0.2) Micro Results Date/Time Source Procedure Growth Status 03/31/17 19:21 Blood Blood Culture Pending Received 03/31/17 19:07 Blood Blood Culture Pending Received 03/31/17 19:30 Skin Leg Right Lower Gram Stain - Final Resulted 03/31/17 19:30 Skin Leg Right Lower Wound Culture Pending Resulted Risk Factors for Resistance * History of infection with a multidrug-resistant organism: MRSA sputum 12/2016 * Antimicrobial use within the last 90 days: Augmentin since 03/26/17 for cellulitis Assessment & Plan Assessment 81 year old male admitted with b/l LE cellulitis, failed outpatient treatment with Augmentin With history of MRSA, patient initiated on vancomycin Plan Vancomycin IV * Loading dose: 2000 mg (19 mg/kg) - given last night * Maintenance dose: 1500 mg IV (14 mg/kg) every 18 hours initially ordered; however, I have changed this to q16h for improvement in SCr * Est PK parameters: Vd ~ 0.7 L/kg, Terry ~0.058, t1/2 ~ 11.9 hrs * Goal trough level for cellulitis : 10 to 15 mcg/mL * Trough level ordered for 04/03/17 prior to the 5th overall dose * A less than traditional dose and/or extended dosing interval have been selected due to likelihood of drug accumulation in obese patient Pharmacy will continue to follow and will adjust dose/frequency as necessary. Thank you.
--- NOTE | 2017-04-01 14:25 | Hospitalist Progress Note ---
Hospitalist Progress Note Date of Service Apr 01, 2017. Subjective Pt evaluation today including: conversation w/ patient, physical exam, chart review, lab review, review of inpatient medication list PO Intake: Tolerating PO diet Voiding: no voiding problems Patient reports feeling much better compared to when he first arrived. He states that when he came to the ER, he was not able to walk on his right leg due to the pain and swelling, but he has been able to walk today. He states that he only has intermittent pain in the RLE now. He describes the pain as an intermittent sharp, shooting pain that varies in intensity, but can be as severe as a 8 or 9 out of 10. He denies any pain at this moment. He states the erythema has also improved. The patient admits to some wheezing, but he states this is at his baseline secondary to his COPD. The patient denies fevers , chills, sweats, chest pain, palpitations, claudication, cough, shortness of breath, nausea, vomiting, abdominal pain, dysuria, hematuria, urinary retention , paralysis, weakness, numbness and tingling. Additional Comments: See HPI for pertinent positives and negatives. All other systems reviewed and negative. Objective Vital Signs Date Time Temp Pulse Resp B/P (MAP) Pulse Ox O2 Delivery O2 Flow Rate FiO2 04/01/17 08:00 Room Air 04/01/17 07:25 36.6 83 20 111/71 (84) 91 Room Air 03/31/17 23:00 36.6 89 16 145/93 94 Room Air 03/31/17 21:35 84 20 152/87 96 Room Air 03/31/17 19:35 98 20 139/91 90 Room Air 03/31/17 17:45 36.6 103 20 143/87 93 Room Air Physical Exam Notes: General appearance: +Obese. Well-developed, well-nourished, no apparent distress Head: Normocephalic, atraumatic Eyes: Normal inspection, PERRL, EOMI ENT: Normal ENT inspection, hearing grossly normal, pharynx normal Neck: Supple, no JVD, trachea midline Respiratory/Chest: +Diffuse wheezing. Normal breath sounds, no respiratory distress Cardiovascular: Regular rate & rhythm, no gallop, no murmur Abdomen/GI: Normal bowel sounds, non-tender, soft Extremities/Musculoskeletal: +2-3+ pitting edema in lower extremities bilaterally, R>L from feet up the lower legs. Erythema of RLE improved, original erythema delineated with marker. Non-tender to palpation. Neurological/Psych: Alert, normal mood/affect, oriented x 3 Skin: Normal color, warm/dry, no rash Laboratory Results Last 24 Hours Test 03/31/17 19:07 04/01/17 07:39 White Blood Count 9.12 K/uL 12.03 K/uL Red Blood Count 5.30 M/uL 4.49 M/uL Hemoglobin 15.6 g/dL 13.8 g/dL Hematocrit 48.0 % 40.7 % Mean Corpuscular Volume 90.6 fL 90.6 fL Mean Corpuscular Hemoglobin 29.4 pg 30.7 pg Mean Corpuscular Hemoglobin Concent 32.5 g/dl 33.9 g/dl Platelet Count 220 K/uL 188 K/uL Mean Platelet Volume 12.1 fL 12.2 fL Neutrophils (%) (Auto) 73.1 % Lymphocytes (%) (Auto) 13.7 % Monocytes (%) (Auto) 11.4 % Eosinophils (%) (Auto) 1.1 % Basophils (%) (Auto) 0.2 % Neutrophils # (Auto) 6.66 K/uL Lymphocytes # (Auto) 1.25 K/uL Monocytes # (Auto) 1.04 K/uL Eosinophils # (Auto) 0.10 K/uL Basophils # (Auto) 0.02 K/uL RDW Standard Deviation 44.8 fL 45.0 fL RDW Coefficient of Variation 13.7 % 13.6 % Immature Granulocyte % (Auto) 0.5 % Immature Granulocyte # (Auto) 0.05 K/uL Sodium Level 140 mmol/L 142 mmol/L Potassium Level 3.7 mmol/L 3.9 mmol/L Chloride Level 106 mmol/L 110 mmol/L Carbon Dioxide Level 28 mmol/L 26 mmol/L Anion Gap 6.0 mmol/L 6.0 mmol/L Blood Urea Nitrogen 20 mg/dl 19 mg/dl Creatinine 1.30 mg/dl 1.10 mg/dl Est Creatinine Clear Calc Drug Dose 55.3 ml/min 64.9 ml/min Estimated GFR () 59.7 73.1 Estimated GFR (Non- 51.5 63.1 BUN/Creatinine Ratio 15.3 17.0 Random Glucose 91 mg/dl 98 mg/dl Calcium Level 8.8 mg/dl 8.4 mg/dl Prothrombin Time 10.7 SECONDS Prothromb Time International Ratio 1.0 Activated Partial Thromboplast Time 31.3 SECONDS Partial Thromboplastin Ratio 1.2 Assessment and Plan 81 y/o male with a history of COPD, HTN, CKD stage II-III, spinal stenosis, bilateral venous stasis, hypothyroidism and osteoporosis who presents with RLE cellulitis and R nielsen ulcer after failing outpatient treatment. RLE cellulitis and R nielsen ulcer--improving -Admitted to med/surg -Continue vancomycin IV -Blood cultures pending -H/o MRSA -Wound care nurse on board for ulcer, covered in Optifoam -Wound culture positive for staph aureus, sensitivities pending -Pt scheduled to f/u at wound care clinic ThursdayApril 06 COPD--stable -Continue Spiriva qd and Advair BID -Oxygen 2L NC at night HTN--stable -Continue verapamil 180 mg PO qhs CKD stage III--stable -Baseline creatinine 1.1-1.3, remains stable at baseline Bilateral venous stasis w/edema--stable -Continue Lasix 20 mg PO qd -Continue MANAN hose -Doppler ultrasound negative for DVT bilaterally Hypothyroidism -Continue Synthroid 150 mcg PO qd Osteoporosis -Fosamax 70 mg PO weekly -Continue calcium and vitamin D supplements DVT prophylaxis -Enoxaparin 40 mg SC q24h -MANAN lozano Code Status -Level I, FULL RESUSCITATION STATUS
[2017-04-01 15:45] VITALS: BP 130/80; PULSE 77; TEMP 36.5; O2SAT 90
[2017-04-01 23:56] VITALS: BP 124/80; PULSE 90; TEMP 36.2; O2SAT 90
[2017-04-02 00:15] VITALS: O2SAT 94
[2017-04-02] MEDS: LEVOTHYROXINE 150 MCG TAB PO SCH (06:15)
[2017-04-02 07:19] VITALS: BP 114/70; PULSE 77; TEMP 36.8; O2SAT 93
[2017-04-02 07:19] LABS: HEMATOCRIT 41.1 % (42-52); MEAN CELL VOLUME 90.3 fL (80-100); MEAN CORPUSCULAR HEMOGLOBIN 29.9 pg (25-34); MEAN CORPUSCULAR HGB CONC 33.1 g/dl (32-36); MEAN PLATELET VOLUME 12.4 fL (7.4-10.4); PLATELET COUNT 200 K/uL (130-400); RED BLOOD COUNT 4.55 M/uL (4.7-6.1)
[2017-04-02 07:58] LABS: BUN/CREATININE RATIO 13.8 (10-20); CALCIUM 8.6 mg/dl (8.5-10.1); CREATININE 1.2 mg/dl (0.60-1.40); POTASSIUM 3.8 mmol/L (3.5-5.1)
[2017-04-02] MEDS: CALCIUM 600MG + VIT D 400 IU TAB PO SCH (08:15)
[2017-04-02] MEDS: CeleBREX 200 MG CAP PO SCH (08:15)
[2017-04-02] MEDS: POTASSIUM CHLORIDE 20 MEQ TABCR PO SCH (08:15)
[2017-04-02] MEDS: FLUTICASONE/SALMETEROL 250/50 (ADVAIR) 14 PUFF/1 INHALER INH SCH (08:15)
[2017-04-02] MEDS: TIOTROPIUM BROMIDE 5 PUFF/90 MCG INH INH SCH (08:15)
[2017-04-02] MEDS: FUROSEMIDE 20 MG TAB PO SCH (08:16)
[2017-04-02] MEDS: PANTOprazole SOD 40 MG TAB PO SCH (08:16)
[2017-04-02] MEDS: CEROVITE ADV FORMULA TAB PO SCH (08:16)
[2017-04-02] MEDS: ENOXAPARIN 40 MG/0.4 ML SYR SQ SCH (08:16)
--- NOTE | 2017-04-02 09:29 | Progress Note ---
Subjective Date of Service: Apr 02, 2017. 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 Review of Systems Constitutional: No fever, No chills, No sweats, No weight loss, No weakness, No fatigue, No problem reported Eyes: No worsening of vision, No eye pain, No redness, No discharge, No diplopia ENT: No hearing loss, No unusual epistaxis, No nasal symptoms, No sore throat, No tinnitus, No dental problems, No trouble swallowing Respiratory: No cough, No sputum, No wheezing, No shortness of breath, No dyspnea on exertion, No dyspnea at rest, No hemoptysis Cardiac: No chest pain, No orthopnea, No PND, No edema, No claudication, No palpitations Abdomen: No pain, No nausea, No vomiting, No diarrhea, No constipation Musculoskeletal: No joint pain, No muscle pain, No swelling, No calf pain Male : No dysuria, No urinary frequency, No incontinence, No nocturia more than once/night, No slowing stream, No hematuria Neurologic: No memory loss, No paralysis, No weakness, No numbness/tingling, No vertigo, No balance problems Psychiatric: No depression symptoms, No anhedonism, No anxiety, No insomnia, No substance abuse Heme: No abnormal bleeding/bruising, No clotting problems, No swollen lymph nodes, No night sweats Endo: No fatigue, No excessive thirst, No excessive urination Skin: + see HPI, + rash, No itch, No new/changing skin lesions, No color change , No bleeding Objective Vital Signs Date Time Temp Pulse Resp B/P (MAP) Pulse Ox O2 Delivery O2 Flow Rate FiO2 04/02/17 08:00 Room Air 04/02/17 07:19 36.8 77 18 114/70 (85) 93 Room Air 04/02/17 00:15 94 Room Air 2.0 Nasal Cannula 04/01/17 23:56 36.2 90 20 124/80 (95) 90 Room Air 04/01/17 16:00 Room Air 04/01/17 15:45 36.5 77 20 130/80 (97) 90 Room Air Physical Exam General Appearance: WD/WN, no apparent distress Eyes: normal inspection, PERRL, EOMI, sclerae normal ENT: normal ENT inspection, hearing grossly normal, pharynx normal Neck: supple, no adenopathy, thyroid normal, no JVD, no carotid bruits, trachea midline Respiratory/Chest: chest non-tender, lungs clear, normal breath sounds, no respiratory distress, no accessory muscle use Cardiovascular: regular rate, rhythm, no edema, no gallop, no JVD, no murmur Abdomen: normal bowel sounds, non tender, soft, no organomegaly, no pulsatile mass Extremities: normal range of motion, non-tender, normal inspection, no pedal edema, no calf tenderness, normal capillary refill, pelvis stable Neurologic/Psychiatric: extra hand II-XII nml as tested, no motor/sensory deficits, alert, normal mood/affect, oriented x 3 Skin: normal color, warm/dry, + rash (right lower extremity swelling and erythema has improved, anterior nielsen 1.51.5 cm laceration still has a lot of drainage associated with local red, drainage is not yellow) Lymphatic: no adenopathy Laboratory Results Last 24 Hours Test 04/02/17 06:38 White Blood Count 9.40 K/uL Red Blood Count 4.55 M/uL Hemoglobin 13.6 g/dL Hematocrit 41.1 % Mean Corpuscular Volume 90.3 fL Mean Corpuscular Hemoglobin 29.9 pg Mean Corpuscular Hemoglobin Concent 33.1 g/dl RDW Standard Deviation 44.9 fL RDW Coefficient of Variation 13.6 % Platelet Count 200 K/uL Mean Platelet Volume 12.4 fL Sodium Level 142 mmol/L Potassium Level 3.8 mmol/L Chloride Level 111 mmol/L Carbon Dioxide Level 23 mmol/L Anion Gap 8.0 mmol/L Blood Urea Nitrogen 17 mg/dl Creatinine 1.20 mg/dl Est Creatinine Clear Calc Drug Dose 59.5 ml/min Estimated GFR () 65.8 Estimated GFR (Non- 56.8 BUN/Creatinine Ratio 13.8 Random Glucose 101 mg/dl Calcium Level 8.6 mg/dl Assessment and Plan 81 y/o male with admitted on 03/31/2017 with RLE cellulitis and R nielsen ulcer after failing outpatient treatment. has a history of COPD, HTN, CKD stage II-III, spinal stenosis, bilateral venous stasis, hypothyroidism and osteoporosis RLE cellulitis and R anterior nielsen ulcer-- stable /improving Wound culture shows gram-positive staph aureus, final sensitivity is pending Patient has a history of MRSA, and failed outpatient Augmentin treatment -Continue med/surg -Continue vancomycin IV -Blood cultures pending -H/o MRSA -Wound care nurse on board for ulcer, covered in Optifoam -Wound culture positive for staph aureus, continue follow-up sensitivities -Pt scheduled to f/u at wound care clinic ThursdayApril 06, I encouraged patient to keep the appointment - Has rule out DVT COPD chronic O2 needed and nighttime when sleep, stable HTN- CKD stage III- Bilateral venous stasis w/edema Hypothyroidism Osteoporosis The above condition is stable continue current medication DVT prophylaxis -Enoxaparin 40 mg SC q24h -MANAN lozano Code Status -Level I, FULL RESUSCITATION STATUS Discussed with patient and about a care plan, answer all questions, planning to discharge home after the sensitivity come back, options include Bactrim or Zyvox, if dc with Zyvox , which possible need to communication with insurance company for their co-pay Continued [facility] stay due to: home environment unsafe for pt Discharge planning: home
[2017-04-02] MEDS ORDERED: SULF800T23 PO (11:19)
--- NOTE | 2017-04-02 11:19 | Discharge Instructions ---
Discharge Instructions Date of Service Apr 02, 2017. Admission Reason for Admission: Cellulitis Of Rt Leg, Failure Of Outpatient... Discharge Discharge Diagnosis / Problem: RLE cellulitis and R anterior nielsen ulcer MRSA infection Discharge Goals Goal(s): Decrease discomfort, Improve function, Increase independence, Improve disease control, Improve nutritional status, Learn about illness, Diagnostic testing, Therapeutic intervention, Prevent Disease Progression, Specific goals Activity Recommendations Activity Limitations: resume your previous activity . Instructions / Follow-Up Instructions / Follow-Up you have right lower ext cellulitis and Right anterior nielsen ulcer- with MRSA infection Wound culture shows MRSA sensitive to Bactrim you need to continue with Bactrim for 10 days -Wound care nurse on board for ulcer, covered in Optifoam -Wound culture positive for staph aureus, continue follow-up sensitivities - has scheduled to f/u at wound care clinic ThursdayApril 06, I am planning to move the appointment to tomorrow if possible. please keep the appointment you have COPD chronic O2 needed and nighttime when sleep, you need to keep using oxygen - you need to follow up with your primary care physician in 1 week, - take medication as instructed, never overdose or any misuse, or take with alcohol, because misuse of medicine may cause organ damage or , call your primary care physician if have questions of medicaitons. - call your primary care physician OR go to local emergency room if has any fever/chill, chest pain, shortness of breathing, nausea/vomiting/abdominal pain , facial droop/slurry speech/local weakness, or if has any questions. - fall precaution - diet as instructed - you need to follow up with your subspecialist - you should understand that it is important to follow up the above instruction , and "not following the above instruction" may cause delayed or missed care of your medical conditions which may cause permanent organ damage and even . Current Hospital Diet Patient's current hospital diet: Regular Diet, Low Sodium Diet (2gm Na) Discharge Diet Recommended Diet: Low Sodium Diet (2gm Na) Procedures Procedures Performed: no Pending Studies Studies pending at discharge: no Medical Emergencies . Who to Call and When: Medical Emergencies: If at any time you feel your situation is an emergency, please call 911 immediately. . Non-Emergent Contact Non-Emergency issues call your: Primary Care Provider . . "Provider Documentation" section prepared by Taiwo Beltrán. . VTE Core Measure Inpt VTE Proph given/why not?: Enoxaparin (Lovenox)SQ
[2017-04-02 11:27] VITALS: BP 114/70; PULSE 77; TEMP 36.8; O2SAT 93
--- NOTE | 2017-04-02 11:30 | Discharge Summary ---
Discharge Summary Date of Service Apr 02, 2017. Discharge Summary Admission Date: Mar 31, 2017 at 21:49 Discharge Date: Apr 02, 2017 Discharge Disposition: Home Principal Diagnosis: right lower ext cellulitis and Right anterior nielsen ulcer- with MRSA infecti Problems/Secondary Diagnoses: (1) Venous stasis dermatitis of both lower extremities Status: Chronic Immunizations: Have You Had Influenza Vaccine: N/A History of Tetanus Vaccine?: Yes History of Pneumococcal: Yes History of Hepatitis B Vaccine: No Procedures: No Consultations: No Medication Reconciliation New Medications: Sulfamethoxazole-Trimethoprim (Bactrim Ds 800MG/160MG) 1 Tab Tab 1 TAB PO BID for 10 Days, #20 TAB Continued Medications: Albuterol (Ventolin Hfa) 60 Puffs/5400 Mcg Aers 2 PUFFS INH Q4 PRN for SOB/Wheezing Alendronate Sodium (Fosamax) 70 Mg Tab 70 MG PO WK, TAB Aspirin (Aspirin Dr) 81 Mg Tab 81 MG PO HS Calcium/Vitamin D (Os-Ash 500 Plus D) Tab 1 TAB PO QAM, TAB Celecoxib (Celecoxib) 200 Mg Cap 200 MG PO BID Cholecalciferol (Vitamin D) 1,000 Unit Tab 1000 UNITS PO HS Fluticasone Prop/Salmeterol (Advair Diskus 250/50 60 Dose) 1 Ea Aerp 1 PUFF INH BID, INHALER Furosemide (Lasix) 40 Mg Tab 40 MG PO QAM, TAB Home O2 Therapy (Oxygen) Gas 2 LITERS NA HS Ipratropium-Albuterol (Duoneb) 3 Ml Nebu 1 TREATMENT INH QID, INHA Levothyroxine Sodium (Levothyroxine Sodium) 150 Mcg Tab 150 MCG PO QAM Multiple Vitamins W/ Minerals (Centrum Silver Adult 50+) 1 Tab Tab 1 TAB PO QAM Omeprazole (Prilosec) 20 Mg Cap 20 MG PO Q2D, CAP Potassium Ext Rel (Klor-Con) 20 Meq Tabcr 20 MEQ PO QAM, TAB Tiotropium Napavine (Spiriva Handihaler) 30 Puff/540 Mcg Aerp 1 CAP INH QAM, INHALER Verapamil Hcl (Verapamil Hcl Er) 180 Mg Tab 180 MG PO HS Discontinued Medications: Amoxicillin & Pot Clavulanate (Augmentin 875-125 mg) 1 Tab Tab 1 TAB PO Q12, #14 TAB Doxycycline Monohydrate (Monodox) 100 Mg Cap 100 MG PO UD, CAP TAKE ONE CAP 2X PER DAY FOR THE FIRST TEN DAYS OF EACH MONTH Discharge Exam See today's progress note Physical Exam: General Appearance: + pertinent finding (See today's progress note) Hospital Course 81 y/o male with admitted on 03/31/2017 with RLE cellulitis and R nielsen ulcer after failing outpatient treatment. has a history of COPD, HTN, CKD stage II-III, spinal stenosis, bilateral venous stasis, hypothyroidism and osteoporosis RLE cellulitis and R anterior nielsen ulcer-- stable /improving Wound culture shows gram-positive staph aureus, which is MRSA, sensitive to Bactrim Patient has a history of MRSA, and failed outpatient Augmentin treatment -Continue med/surg -Continue vancomycin IV -Blood cultures pending -H/o MRSA -Wound care nurse on board for ulcer, covered in Optifoam -Wound culture positive for staph aureus, which is MRSA infection, sensitive to Bactrim, will give 1 dose of Bactrim now and discharged home with oral Bactrim for 10 days -Pt scheduled to f/u at wound care clinic ThursdayApril 06, has talked to Navigator to move the appointment to tomorrow , I encouraged patient to keep the appointment - Has rule out DVT COPD chronic O2 needed and nighttime when sleep, stable HTN- CKD stage III- Bilateral venous stasis w/edema Hypothyroidism Osteoporosis The above condition is stable continue current medication DVT prophylaxis -Enoxaparin 40 mg SC q24h -MANAN marta Code Status -Level I, FULL RESUSCITATION STATUS Discussed with patient and about a care plan, answer all questions, planning to discharge home after the sensitivity come back, options include Bactrim or Zyvox, if dc with Zyvox , I belt picker Bactrim because no sensitivity come back which is MRSA and sensitive to Bactrim Instructions / Follow-Up you have right lower ext cellulitis and Right anterior nielsen ulcer- with MRSA infection Wound culture shows MRSA sensitive to Bactrim you need to continue with Bactrim for 10 days -Wound care nurse on board for ulcer, covered in Optifoam -Wound culture positive for staph aureus, continue follow-up sensitivities - has scheduled to f/u at wound care clinic ThursdayApril 06, I am planning to move the appointment to tomorrow if possible. please keep the appointment you have COPD chronic O2 needed and nighttime when sleep, you need to keep using oxygen - you need to follow up with your primary care physician in 1 week, - take medication as instructed, never overdose or any misuse, or take with alcohol, because misuse of medicine may cause organ damage or , call your primary care physician if have questions of medicaitons. - call your primary care physician OR go to local emergency room if has any fever/chill, chest pain, shortness of breathing, nausea/vomiting/abdominal pain , facial droop/slurry speech/local weakness, or if has any questions. - fall precaution - diet as instructed - you need to follow up with your subspecialist - you should understand that it is important to follow up the above instruction , and "not following the above instruction" may cause delayed or missed care of your medical conditions which may cause permanent organ damage and even . Total Time Spent: Less than 30 minutes This includes examination of the patient, discharge planning, medication reconciliation, and communication with other providers. Discharge Instructions Please refer to the electronic Patient Visit Report (Discharge Instructions) for additional information.
[2017-04-02] MEDS ORDERED: SULFAMETHOXAZOLE/TRIMETHOPRIM DS 800/160MG TAB PO ONE (12:00)
[2017-04-02] MEDS ORDERED: SULFAMETHOXAZOLE/TRIMETHOPRIM DS 800/160MG TAB PO SCH (21:00)
[2017-04-03] MEDS ORDERED: VANCOMYCIN TROUGH SCH (05:30)
[2017-04-03] MEDS ORDERED: CELE100C PO (13:18)
[2017-04-03] MEDS ORDERED: DOXY100C76 PO (13:18)
[2017-04-06] MEDS ORDERED: ALENDRONATE SODIUM 70 MG TAB PO SCH (06:00)
[2017-05-07] MEDS ORDERED: FLUO20CA35 PO (07:49)
== END 2017-04-02 12:05 | disposition home or self-care (01) | DRG 603 ==
LOC: C.EDB 17:41 → C.MS4W 21:49 → ENRESERV 22:12
PROVIDERS: ADMIT Internal Medicine; ATTEND Hospitalist
DX: L03.115 Cellulitis of right lower limb (principal); L97.919 Non-pressure chronic ulcer of unspecified part of right lower leg with unspecified severity; B95.62 Methicillin resistant Staphylococcus aureus infection as the cause of diseases classified elsewhere; I87.8 Other specified disorders of veins; J44.9 Chronic obstructive pulmonary disease, unspecified; E03.9 Hypothyroidism, unspecified; M81.0 Age-related osteoporosis without current pathological fracture; I12.9 Hypertensive chronic kidney disease with stage 1 through stage 4 chronic kidney disease, or unspecified chronic kidney disease; N18.3 Chronic kidney disease, stage 3 (moderate); E66.9 Obesity, unspecified; Z51.81 Encounter for therapeutic drug level monitoring; Z79.899 Other long term (current) drug therapy; Z79.82 Long term (current) use of aspirin; Z86.14 Personal history of Methicillin resistant Staphylococcus aureus infection; Z68.33 Body mass index [BMI] 33.0-33.9, adult; Z87.891 Personal history of nicotine dependence

== ENCOUNTER → 2017-04-13 | Outpatient (CLI) | payer BC, OTHER ==
[~2017-04-13] MED LIST changes: -ALBU1AER9 INH; +CELE100C PO; +CELE1CAP30 PO; -CLB100 PO; -FBR PO; +FLUO20CA35 PO; -MCRK20 PO; +POTA20TA16 PO; +PRVHFAIN INH; +SULF800T23 PO
--- NOTE | 2017-04-14 06:37 | PAP/PSG TECHNICIAN REPORT ---
[facility] Mine Surveyor Polysomnogram Report Study name: None Report date: 04/14/2017 Study date: 04/13/2017 Referring Physician: JOSE EDWARDS DO, DO Name: NICOLAS WESLEY Interpreting Physician: Jose Edwards D.O. Date of : 1935 Mine Surveyor: [facility]. Sex: Male Age: 81 Study Type: PSG Weight: 234 lbs Height: 81 years, Height 5' 11" BMI: 32.63 Medications: ADVAIR DISKUS 500-50 MCG/DOSE, ALENDRONATE 70 MG, ASPIRIN 81 MG, CALCIUM+D, CELECOXIB 200 MG, DOXYCYCLINE HYCLATE 100 MG, FUROSEMIDE 40 MG, LEVOTHYROXINE 150 MCG, MULTI VIT, OMEPRAZOLE 20 MG, O2 2 LPM WITH EXERTION, POTASSIUM CHLORIDE 20 MEQ, SPIRIVA HANDIHALER 18 MCG, VETOLIN HFA, VERAPAMIL 180 MG, VIT D 1000 UNIT Patient History 81 yr-old male here for a baseline study. He has a history of COPD and longstanding respiratory problems. His Monroe scale is 7. The test was started on room air. ETCO2 testing was not utilized during this study. Room 5 Parameters Monitored NPSG: E1-M2, E2-M1, Fp1-M2, Fp2-M1, F3-M2, F4-M2, F4-M1, C3-M2, C4-M2, C4-M1, O1-M2, O2-M2, O2-M1, T3-M2, T4-M1, P3-M2, P4-M1, CHIN1, CHIN2, HR, EKG, Legs, PFLOW, SNOR, FLOW, CFLOW, Tidal Volume, THOR, ABDO, SpO2, PLTH, CPRESS, ETCO2 Wave, ETCO2, pH Sleep Architecture Sleep Stages Time at Lights Off 10:59:44 PM STAGES Time (min.) TST (%) Time at Lights On 5:51:44 AM Wake 124.0 -- Total Recording Time (TRT) 412.00 min. N1 46.5 16 Total Sleep Period (TSP) 336.5 min. N2 209.5 73 Total Sleep Time (TST) 288.0min. N3 0.0 0 Awake Time 124.0 min. REM 32.0 11 Wake after Sleep Onset 48.5 min. Sleep Efficiency (SE) 70 % Sleep Onset Latency (CHRIS) 75.5 min. Number of Stage 1 Shifts None Awakenings 17 Stage Changes 79 Number of REM periods 3 REM 32.0 11 REM Latency 84.0 min. NREM 256.0 89 Body Position Analysis Supine Right Left Side Prone Vertical Total Sleep Time (min.) 1.6 28.0 260.0 288.00 0.0 3.7 Total Sleep Time (%) 0% 10% 90% 100 0% N/A% Total Sleep Time REM (min.) 0.0 0.0 32.0 None 0.0 0.0 Total Sleep Time NREM (min.) 0.0 28.0 228.0 None 0.0 0.0 Intermittent Wake (min.) 1.6 42.8 75.9 None 0.0 3.7 Total Sleep Period (%) 0% None None None None None Arousals Myoclonus (PLM) * Events Count Index Events Count Index Spontaneous 19 4 Events Awake (PLMW) 208 100.6 Respiratory 4 1.5 Events Asleep w/ Arousal (PLMA) 29 6.0 PLM 29 6 Events Asleep w/o Arousal (PLMS) 448 93.3 Snoring 7 1 Total Asleep 477 99.4 Total 59 12 Total 685 100 Respiratory Analysis * CA OA MA CH H RERA Total Count 0 0 0 0 37 3 37 Index 0.0 0.0 0.0 0 7.7 1 8.3 Mean Duration 0.0 0.0 0.0 0.00 20.2 20.2 20.2 Longest Duration 0.0 0.0 0.0 0.00 0.0 21.9 52.6 Respiratory Event Summary Total Supine ~Supine Right Left Prone REM NREM Apneas Count 0 N/A 0 0 0 N/A 0 0 Index 0.0 N/A 0 0.0 0.0 N/A 0 0 Hypopneas (4% Desat) Count 37 N/A 37 1 36 N/A 20 17 Index 7.7 N/A 8 2.1 8.3 N/A 37.5 4.0 Apneas & All Hypopneas Count 37 N/A 37 1 36 N/A 20 17 Index 7.7 N/A 8 2 8 N/A 37.5 4.0 Respiratory Events (Shirt Folding Machine Operator+All Hyp+RERA) Count 37 N/A 40 1 39 N/A 20 17 Index 8.3 N/A 8 2.1 9.0 N/A 39.4 4.5 Respiratory Related Arousal Count 4 N/A 7 0 7 N/A 2 5 Index 1.5 N/A 1 0 2 N/A 4 1 Snoring Analysis Supine Right Left Prone REM NREM Total Snore duration 5.3 min Snores count N/A 11 168 N/A 5 174 179 Snore mean duration 1.8 Sec Snores index N/A 24 39 N/A 9.4 40.8 37.3 TST with snoring (%) 1.8% Desaturation Event Summary: Minimum %SpO2 Event Count Mean/Min/Max Duration(sec.) Desaturation Index % Time In Bed > 90 6 28.7 / 12.0 / 50.5 65.6 1.3 86 - 90 43 30.0 / 8.3 / 60.0 13.2 47.9 81 - 85 22 29.1 / 9.3 / 59.8 6.9 46.6 76 - 80 5 27.9 / 11.0 / 47.5 23.2 3.1 71 - 75 0 N/A 0.0 1.0 66 - 70 0 N/A 0.0 0.0 61 - 65 0 N/A 0.0 0.0 56 - 60 0 N/A 0.0 0.0 51 - 55 0 N/A 0.0 0.0 < 50 0 N/A 0.0 0.0 Total REM NREM Awake <50% 0.0 min. 0.0 min. 0.0 min. 0.0 min. 51 - 60% 0.0 min. 0.0 min. 0.0 min. 0.0 min. 61 - 70% 0.0 min. 0.0 min. 0.0 min. 0.0 min. 71 - 80% 17.1 min. 14.5 min. 0.0 min. 2.6 min. 81 - 90% 387.1 min. 17.5 min. 256.0 min. 113.6 min. 91 - 100% 5.5 min. 0.0 min. 0.0 min. 5.5 min. Average 86 81 85 87 Minimum SpO2 73 73 82 73 Desaturation Event Index 9.0 35.6 5.9 9.2 # Desat. Events below 89% 60 19 24 17 Time(%) with Saturation below 89% 89.6 7.7 61.3 20.6 Time(min.) with Saturation below 89% 367.3 31.7 251.3 84.3 Time (mins) REM (mins) NREM (mins) % of TST SpO2 Below 90% 43 19 N24 99.6 SpO2 Below 88% 21 0 0 91 Heart Rate Analysis Min (bpm) Max (bpm) Average (bpm) Awake 61 145 93 NREM 67 105 89 REM 69 105 92 Overall 67 105 89 Supplemental O2 Values Minimum O2 level: None Value Start Time End Time Mine Surveyor Comments Mr. Wesley slept in the right and left positions. Cardiac arrhythmias were noted (please refer to the printouts). PLMs were noted throughout the study. No bruxism noted. Snoring was noted and scored as a 2 on a scale of 1 through 5. (0=no snoring, 5=snoring loud enough to be heard through a closed door or down the rueda way) He did not wake up to use the restroom during the night. Mr. Wesley stated that he slept about the same as usual. The final report will be interpreted and signed by a sleep physician. The completed physician report will then be placed in the patient medical record. Therapy (cm H2O) 0 TIB (min.) 412.0 TST (min.) 288.0 Sleep Onset (min.) 75.5 REM Onset From Sleep (min.) 84.0 Sleep Efficiency % 70 Wakefulness (%) 30 Wakefulness (min.) 124.0 NREM 1 (%) 16 NREM 1 (min.) 46.5 NREM 2 (%) 73 NREM 2 (min.) 209.5 NREM 3 (%) 0 NREM 3 (min.) 0.0 REM (%) 11 REM (min.) 32.0 # Arousals 59 Arousal Index 12 # Snore 179 Snore Index 37.3 AHI 7.7 AHI Supine N/A AHI Non-Supine 8 NREM AHI 4.0 REM AHI 37.5 RDI 8.3 # Obstructive Apnea 0 # Central Apnea 0 # Mixed Apnea 0 # Hypopneas 37 RERAs 3 Total Respiratory Events 40 Time Below SpO2 89% (min.) 283.0 Mean NREM SpO2 (%) 85 Mean REM SpO2 (%) 81 Mean Sleep SpO2 (%) 85 Min NREM SpO2 (%) 82 Min REM SpO2 (%) 73 Position Supine (min.) 1.6 Position Non-supine (min.) 288.0 LM Index Sleep 99.4 LM Index NREM 106.6 LM Index REM 41.3 Mean Heart Rate (bpm) 89 Min Heart Rate (bpm) 67
--- NOTE | 2017-04-23 15:13 | Sleep Study ---
Sleep Study Report Date of Service: 04/13/2017 Sleep Study Report Clinical data: The patient is an 81-year-old male with COPD. He does have nocturnal hypoxia, shortness of breath, and peripheral edema. He snores. His BMI is 32.63. The Orlando score is 7 out of a possible 24. This was an in-lab diagnostic sleep study. Sleep architecture: The total sleep period was 336.5 minutes. The total sleep time was 288 minutes. The sleep efficiency was moderately reduced to 70%. The sleep latency was prolonged to 75.5 minutes. Wake after sleep onset was 48.5 minutes. The REM latency was 84 minutes. Sleep consisted of stage N1 16%, stage N2 73%, stage N3 0%, stage REM 11%. Arousal data: The patient had a total of 59 arousals including 19 spontaneous arousals, 4 respiratory arousals, 29 PLM arousals, and 7 snoring arousals. The arousal index was 12. PLM data: The patient had a total of 477 periodic limb movements of sleep for an index of 99.4. There were 29 arousals associated with limb movements for a PLM arousal index of 6.0. EKG: The underlying cardiac rhythm was normal sinus. There were frequent PACs throughout the study. The cardiac rates ranged from 67-105. The average heart rate was 89 beats per minute. Respiratory data: Patient had a total of 37 respiratory events, all hypopneas. Hypopneas were scored according to the 4% desaturation rule. The mean duration of the hypopneas was 20.2 seconds. He also had 3 RERAs. The apnea-hypopnea index was mildly elevated at 7.7. This reflects mild sleep apnea. Oximetry data: The average saturation was 86%. The minimum saturation was 73%. The patient had a total of 367.3 minutes with saturations less than 89%. Snow Removal/Plowing comments: The patient slept in the right and left positions. Cardiac arrhythmias were noted. PLMS were noted. No bruxism noted. Snoring was noted and scored as a 2 on a scale of 1 through 5. He did not wake up to use the restroom during the night. The patient stated that he slept about the same as usual. Impressions: 1. Obstructive sleep apnea-mild 2. Periodic limb movement disorder 3. Cardiac arrhythmia-PACs Comments: The patient had a moderate decrease in sleep efficiency. This was in large part related to his difficulty falling asleep. The sleep latency was severely prolonged to 75.5 minutes. There was just a modest number of arousals. The apnea-hypopnea index was mildly elevated. This would reflect mild sleep apnea. This may be more significant however in a patient who has COPD. His oxygen saturation was low for almost the entire night. The patient does have hypertension as a comorbidity. Treatment would be advised in light of his apnea associated with COPD. Recommendations: 1. Consideration is given to a trial of nasal CPAP. 2. Weight loss is advised in light of the elevation of body mass index of 32.63. 3. Further suggestions will be made following the trial of nasal CPAP. 4. It is suggested that a serum ferritin level be checked to rule out iron deficiency as a contributing cause to his limb movement disorder. 5. Would treat the underlying sleep disordered breathing 1st. Then assess any effect of the limb movement disorder and decide about treatment later on. Copies To 1: Jose Bedoya DO; ,Tyler Gomez M.D.
== END | disposition home or self-care (01) ==
LOC: C.NEUR 21:00
PROVIDERS: ATTEND Internal Medicine Pulmonary Disease
DX: G47.33 Obstructive sleep apnea (adult) (pediatric) (principal)

== ENCOUNTER → 2017-05-28 | Day surgery (SDC) | payer BC ==
[2017-05-07 07:49] VITALS: Ht 177.8 cm; Wt 105.5 kg
[~2017-05-28] VITALS: Ht 177.8 cm; Wt 105.5 kg
[~2017-05-28] MED LIST changes: +BUPIVACAINE 0.25% 2.5MG/ML PF 10 ML VIAL ONE; -CELE100C PO; -DOXY100C76 PO; +IOPAMIDOL INJ 61% 15 ML VIAL ONE; +LIDOCAINE HCL 1% MPF 5 ML VIAL ONE; +SODIUM CHLORIDE 0.9% INJ 10 ML VIAL ONE; -SULF800T23 PO
[2017-05-28 14:06] VITALS: TEMP 36.5
--- NOTE | 2017-05-28 14:10 | Discharge Instructions ---
Discharge Instructions Date of Service May 28, 2017. Visit Reason for Visit: Lumbar Facet Arthropathy Discharge Discharge Diagnosis / Problem: low back pain Discharge Goals Goal(s): Decrease discomfort, Improve function Activity Recommendations Activity Limitations: resume your previous activity Anesthesia . Post Anesthesia Instructions: If you have had General Anesthesia or IV Sedation: * Do not drive today. * Resume driving when surgeon permits. * Do not make important decisions or sign legal documents today. * Call surgeon for: 1. Temperature elevations greater than 101 degrees F. 2. Uncontrollable pain. 3. Excessive bleeding. 4. Persistent nausea and vomiting. 5. Medication intolerance (nausea, vomiting or rash). * For nausea and vomiting use only clear liquids such as: tea, soda, bouillon until nausea subsides, then gradually increase diet as tolerated. * If you have any concerns or questions, call your surgeon's office. If physician is unavailable and it is an emergency, call 911 or go to the nearest emergency room. . Diet Recommendations Recommended Home Diet: no limitations Procedures Procedures Performed: Lumbar Epidural Steroid Injection Pending Studies Studies pending at discharge: no Medical Emergencies . Who to Call and When: Medical Emergencies: If at any time you feel your situation is an emergency, please call 911 immediately. . Non-Emergent Contact Non-Emergency issues call your: Specialist . . "Provider Documentation" section prepared by Cody Mclaughlin. .
[2017-05-28 14:18] VITALS: BP 159/88; PULSE 96; O2SAT 94
--- NOTE | 2017-05-28 14:37 | OPERATIVE REPORT ---
DATE OF OPERATION: 05/28/2017 PREOPERATIVE DIAGNOSIS: Chronic low back pain, lumbar facet arthropathy. POSTOPERATIVE DIAGNOSIS: Same. PROCEDURE: Bilateral L4-L5, L5-S1 medial branch blocks under fluoroscopic guidance. SURGEON: Dr. Cody Mclaughlin. INDICATIONS: The patient is an 82-year-old white male who presents today for a second diagnostic medial branch block. He had one done a little more than a month ago and he had good relief of pain following the block. The next morning the pain returned. He presents today for a second block as required by his insurance company to confirm it. PHYSICAL EXAMINATION: GENERAL: Pleasant male seated comfortably in no apparent distress. MUSCULOSKELETAL EXAMINATION: Lumbar paraspinal muscles were palpated. He has some facet tenderness that is worse with extension. He had no issues with forward flexion. He had normal motor and sensory examination of the lower extremities. CONSENT: Verbal and written consent was obtained from the patient. Risks and benefits were reviewed. Risks include but are not limited to epidural abscess and allergic reaction. He wishes to proceed. PROCEDURE: The patient was taken back to the special procedures room of the [facility] where he was maintained in a prone position. Backside was cleansed with Betadine x3 and a dry sterile dressing was applied. Fluoroscope was used to identify the left L4 transverse process junction, left L5 transverse process junction and the left sacral ala. The overlying skin was anesthetized with 1.5 mL of lidocaine 1% with a 25 gauge 1.5-inch needle at each site. A 25 gauge 3.5 inch spinal needle was then directed to the bony target at each area and then injected with negative aspiration with 1 mL of bupivacaine 0.25% at the L4 transverse process junction, L5 transverse process junction and the sacral ala. The right L4 transverse process junction and the right L5 transverse process junction and the right sacral ala were then fluoroscopically identified. Overlying skin was anesthetized with 1.5 mL of lidocaine 1% with a 25 gauge 1.5-inch needle at each site. A 25 gauge 3.5 inch spinal needle was then directed under fluoroscopic guidance contacting bone at each site, injected with 1 mL bupivacaine 0.25% at the L4 transverse process junction, L5 transverse process junction and right sacral ala. Injections were well tolerated. DISPOSITION: He was taken out into the discharge recovery area where he has been asked to keep a pain diary for the next 24 hours and he will follow up in the office to determine the efficacy of the block. I attest to the content of the Intraoperative Record and any orders documented therein. Any exception s are noted below.
== END | disposition home or self-care (01) ==
LOC: X.SURG 12:31
PROVIDERS: ATTEND Physical Medicine & Rehabilitation
DX: M47.897 Other spondylosis, lumbosacral region (principal); Z79.899 Other long term (current) drug therapy

== ENCOUNTER → 2017-06-09 | Outpatient (CLI) | payer BC ==
[~2017-06-09] MED LIST changes: -BUPIVACAINE 0.25% 2.5MG/ML PF 10 ML VIAL ONE; -IOPAMIDOL INJ 61% 15 ML VIAL ONE; -LIDOCAINE HCL 1% MPF 5 ML VIAL ONE; -SODIUM CHLORIDE 0.9% INJ 10 ML VIAL ONE
[2017-06-09 09:32] LABS: BASO % 0.2 %; BASO ABS # 0.02 K/uL (0-0.2); COMPLETE YES; EOS % 1.2 %; HEMATOCRIT 46.2 % (42-52); IG% 0.5 %; LYMPH % 18.6 %; LYMPH ABS # 1.61 K/uL (1.2-3.4); MEAN CELL VOLUME 90.8 fL (80-100); MEAN CORPUSCULAR HEMOGLOBIN 28.7 pg (25-34); MEAN CORPUSCULAR HGB CONC 31.6 g/dl (32-36); MEAN PLATELET VOLUME 12.2 fL (7.4-10.4); MONO % 12.6 %; NEUT % 66.9 %; PLATELET COUNT 178 K/uL (130-400); RED BLOOD COUNT 5.09 M/uL (4.7-6.1); WHITE BLOOD COUNT 8.67 K/uL (4.8-10.8)
[2017-06-09 09:58] LABS: ALB/GLOB RATIO 0.9 (0.9-2); ALKALINE PHOSPHATASE 61 U/L (45-117); ALT/SGPT 28 U/L (12-78); AST/SGOT 16 U/L (15-37); BLOOD UREA NITROGEN 18 mg/dl (7-18); BUN/CREATININE RATIO 14.2 (10-20); CALCIUM 8.8 mg/dl (8.5-10.1); CARBON DIOXIDE 29 mmol/L (21-32); CHLORIDE 109 mmol/L (98-107); CHOLESTEROL 118 mg/dl (0-200); CHOLESTEROL/HDL RATIO 2.5; GLUCOSE 89 mg/dl (70-99); HDL CHOLESTEROL 47 mg/dl; LDL CHOLESTEROL CALCULATED 58 mg/dl; SODIUM 143 mmol/L (136-145); TRIGLYCERIDES 66 mg/dl (0-150); URIC ACID 7.3 mg/dl (2.6-7.2); VERY LOW DENSITY LIPOPROT CALC 13 mg/dl
[2017-06-09 10:07] LABS: FERRITIN 31.8 ng/ml (8.0-388.0)
== END | disposition home or self-care (01) ==
LOC: C.LAB1850 07:55
PROVIDERS: ATTEND Internal Medicine
DX: G47.61 Periodic limb movement disorder (principal); E77.8 Other disorders of glycoprotein metabolism; N40.1 Benign prostatic hyperplasia with lower urinary tract symptoms; E03.9 Hypothyroidism, unspecified; M10.9 Gout, unspecified

== ENCOUNTER → 2017-07-10 | Outpatient (CLI) | payer BC ==
[~2017-07-10] MED LIST changes: -ALEN70TA4 PO; +ASPI81TA28 PO; -ASPI81TA85 PO; -CALC500C70 PO; +CALC600T9 PO; -CELE1CAP30 PO; +CLB/200 PO; +DOXY100C76 PO; +FRS/40 PO; +FSM70 PO; -FURO40TA3 PO; +MULT-1093 PO; -MULT-845 PO; -OMEP20CA9 PO; +PRLSR20 PO; -PRVHFAIN INH; +RANI150T3 PO; -VERA1TAB53 PO; +VNTHFA/IN INH; +VRPSR180 PO
[2017-07-10 10:08] LABS: BASO % 0.1 %; BASO ABS # 0.01 K/uL (0-0.2); COMPLETE YES; HEMATOCRIT 43.6 % (42-52); IG% 0.4 %; LYMPH % 16.4 %; LYMPH ABS # 1.51 K/uL (1.2-3.4); MEAN CELL VOLUME 90.1 fL (80-100); MEAN CORPUSCULAR HGB CONC 34.4 g/dl (32-36); MEAN PLATELET VOLUME 12.6 fL (7.4-10.4); MONO % 11.8 %; NEUT % 70.3 %; PLATELET COUNT 191 K/uL (130-400); RED BLOOD COUNT 4.84 M/uL (4.7-6.1); WHITE BLOOD COUNT 9.18 K/uL (4.8-10.8)
== END | disposition home or self-care (01) ==
LOC: C.LAB1850 09:30
PROVIDERS: ATTEND Internal Medicine Pulmonary Disease
DX: J44.9 Chronic obstructive pulmonary disease, unspecified (principal)

== ENCOUNTER → 2017-07-29 | Day surgery (SDC) | payer BC ==
[2017-07-06 09:48] VITALS: Ht 177.8 cm; Wt 105.5 kg
[~2017-07-29] VITALS: Ht 177.8 cm; Wt 105.5 kg
[~2017-07-29] MED LIST changes: +BUPIVACAINE 0.25% 2.5MG/ML PF 10 ML VIAL ONE; +LIDOCAINE HCL 1% 20 ML VIAL ONE
[2017-07-29 15:05] VITALS: TEMP 37.2
--- NOTE | 2017-07-29 15:09 | Discharge Instructions ---
Discharge Instructions Date of Service Jul 29, 2017. Visit Reason for Visit: Lumbar Facet Arthropathy Discharge Discharge Diagnosis / Problem: low back pain Discharge Goals Goal(s): Decrease discomfort, Improve function Activity Recommendations Activity Limitations: resume your previous activity Anesthesia . Post Anesthesia Instructions: If you have had General Anesthesia or IV Sedation: * Do not drive today. * Resume driving when surgeon permits. * Do not make important decisions or sign legal documents today. * Call surgeon for: 1. Temperature elevations greater than 101 degrees F. 2. Uncontrollable pain. 3. Excessive bleeding. 4. Persistent nausea and vomiting. 5. Medication intolerance (nausea, vomiting or rash). * For nausea and vomiting use only clear liquids such as: tea, soda, bouillon until nausea subsides, then gradually increase diet as tolerated. * If you have any concerns or questions, call your surgeon's office. If physician is unavailable and it is an emergency, call 911 or go to the nearest emergency room. . Diet Recommendations Recommended Home Diet: resume previous diet Procedures Procedures Performed: BILATERAL L4-5, L5-S1 RADIO FREQUENCY DENERVATION Pending Studies Studies pending at discharge: no Medical Emergencies . Who to Call and When: Medical Emergencies: If at any time you feel your situation is an emergency, please call 911 immediately. . Non-Emergent Contact Non-Emergency issues call your: Specialist . . "Provider Documentation" section prepared by Cody Mclaughlin. .
[2017-07-29 15:15] VITALS: BP 145/91; PULSE 88; O2SAT 93
--- NOTE | 2017-07-29 15:22 | OPERATIVE REPORT ---
DATE OF OPERATION: 07/29/2017 PREOPERATIVE DIAGNOSIS: Chronic low back pain, lumbar facet arthropathy. POSTOPERATIVE DIAGNOSIS: Same. PROCEDURE: Bilateral L4-L5, L5-S1 radiofrequency facet denervations. SURGEON: Dr. Cody Mclaughlin. INDICATIONS: The patient is an 82-year-old white male who underwent bilateral L4-L5, L5-S1 medial branch blocks x2 that were successful with relieving his pain 80% relief. He presents today for a denervation to be done at the same sites. PHYSICAL EXAMINATION: Pleasant male seated comfortably. He has some tenderness to palpation of his lower lumbar paraspinal muscles, extension, rotation causes increased discomfort, no issues with flexion. He has normal lower extremity strength. CONSENT: Verbal and written consent was obtained from the patient. Risks and benefits were reviewed. Risks include but are not limited to abscess, allergic reaction, nerve denervation. He wishes to proceed. PROCEDURE: The patient was taken back to the special procedures room of the [facility] where he was maintained in a prone position. Backside was cleansed with Betadine x3 and a dry sterile dressing was applied. Fluoroscope was used to identify the left L4 transverse process junction and the left L5 transverse process junction and the left sacral ala. The overlying skin was anesthetized with mL lidocaine 1% with a 25 gauge 1.5-inch needle at each site. A 22 gauge 10 cm Gwyn needle contacted the bony target at each site. He had sensory stimulation done and it was able to provoke discomfort at a level of 0.2 at L4, 0.3 at L5 and 0.4 volts at the sacral ala. Motor stimulation did not provoke any lower extremity motion but robust paraspinal spasms more apparent at L4 and L5 than the ala. He underwent anesthetization with 1 mL lidocaine at each site prior to denervation. Denervation was done at each site x2, first at L4, then 5, then the sacral ala, 100 seconds, 80 degrees x2. This was followed by bupivacaine 0.25% 1 mL at each site following the denervation. Then the right sacral ala, the right L5 transverse process junction and the right L4 transverse process junction were fluoroscopically identified. Overlying skin was anesthetized with 1 mL lidocaine 1% with a 25 gauge 1.5-inch needle at each site. A 10 cm Gwyn needle was then contacting bony target at each site. Sensory stimulation was noted to provoke symptoms at L4 0.2 volts, 0.2 volts at L5 and 0.3 volts at the right sacral ala. Each site was then anesthetized with additional 1 mL lidocaine 1% and a denervation was done first at L4, then L5 and then the sacral ala, 100 seconds, 80 degrees x2 at each site and then this was followed by bupivacaine 0.25% 1 mL injection. He tolerated the procedure well. DISPOSITION: 1. The patient is discharged to the discharge recovery area where he will be discharged home once discharge criteria have been met. 2. Follow up in the [facility] office in 2-4 weeks. I attest to the content of the Intraoperative Record and any orders documented therein. Any exception s are noted below.
== END | disposition home or self-care (01) ==
LOC: X.SURG 12:55
PROVIDERS: ATTEND Physical Medicine & Rehabilitation
DX: M47.817 Spondylosis without myelopathy or radiculopathy, lumbosacral region (principal)

== ENCOUNTER → 2017-08-31 | Outpatient (CLI) | payer BC ==
[~2017-08-31] MED LIST changes: -BUPIVACAINE 0.25% 2.5MG/ML PF 10 ML VIAL ONE; -FLUO20CA35 PO; -LIDOCAINE HCL 1% 20 ML VIAL ONE
--- NOTE | 2017-08-31 15:16 | DIAGNOSTIC IMAGING REPORT ---
CHEST 2 VIEWS ROUTINE CLINICAL HISTORY: J44.9 Chronic obstructive pulmonary [id number] Atypical chest pain COMPARISON STUDY: 12/01/2016, October 2015 FINDINGS: The heart is mildly enlarged. There is stable bibasilar atelectasis/scarring. There is no failure. There is no focal pulmonary consolidation. A 12 mm density projected over the mid posterior dorsal spine remains unchanged from October 2015. This likely represents a bony summation[. There are no pleural effusions. IMPRESSION: No active disease in the chest. Electronically signed by: Mike Goff M.D. 08/31/2017 3:14 PM Dictated Date/Time: 08/31/2017 3:13 PM
[2017-08-31 15:54] LABS: BASO % 0.1 %; BASO ABS # 0.02 K/uL (0-0.2); COMPLETE YES; EOS % 0.1 %; HEMATOCRIT 42.7 % (42-52); IG% 1.4 %; LYMPH % 10.2 %; LYMPH ABS # 1.39 K/uL (1.2-3.4); MEAN CELL VOLUME 91.8 fL (80-100); MEAN CORPUSCULAR HEMOGLOBIN 30.8 pg (25-34); MEAN CORPUSCULAR HGB CONC 33.5 g/dl (32-36); MEAN PLATELET VOLUME 12.2 fL (7.4-10.4); MONO % 12.7 %; NEUT % 75.5 %; PLATELET COUNT 165 K/uL (130-400); RED BLOOD COUNT 4.65 M/uL (4.7-6.1); WHITE BLOOD COUNT 13.66 K/uL (4.8-10.8)
[2017-08-31 16:16] LABS: BLOOD UREA NITROGEN 26 mg/dl (7-18); BUN/CREATININE RATIO 24.8 (10-20); CALCIUM 8.9 mg/dl (8.5-10.1); CARBON DIOXIDE 28 mmol/L (21-32); CHLORIDE 108 mmol/L (98-107); CREATININE 1.03 mg/dl (0.60-1.40); GLUCOSE 101 mg/dl (70-99); POTASSIUM 4.2 mmol/L (3.5-5.1); SODIUM 139 mmol/L (136-145)
== END | disposition home or self-care (01) ==
LOC: C.RAD1850 15:02
PROVIDERS: ATTEND Nurse Practitioner Adult Health
DX: E03.9 Hypothyroidism, unspecified (principal); J44.9 Chronic obstructive pulmonary disease, unspecified; R07.89 Other chest pain

== ENCOUNTER → 2017-09-04 | Outpatient (CLI) | payer BC ==
--- NOTE | 2017-09-04 13:01 | DIAGNOSTIC IMAGING REPORT ---
LUMBAR SPINE W/O CONTRAST CLINICAL HISTORY: 82 years-old Male with LUMBAR FACET ARTHROPATHY. Chronic low back pain COMPARISON: CT abdomen and pelvis 06/10/2007. TECHNIQUE: Multiplanar, multi sequence MRI of the lumbar spine was performed without intravenous contrast. FINDINGS: The large field view tester equipment localizer images demonstrate mild urinary bladder distention and urinary bladder wall thickening. Intratrochanteric nail of the left femur is noted. No aortic aneurysm, acute intra-abdominal or paraspinal abnormality identified. Nonspecific mildly enlarged right periaortic lymph node measures 1.4 x 1.2 cm seen on image 7 series 6, previously measuring 1.3 x 1.0 cm on study dated 06/10/2007. 4 mm retrolisthesis L2 on L3 and 3 mm retrolisthesis L3 on L4 is unchanged dating back to at least 2006. These findings are likely secondary to long-standing facet disease as described below. Multilevel discogenic degenerative changes, endplate spurring and facet arthropathy. Signal within the cord is within normal limits. No significant bone marrow or soft tissue edema, acute fracture or subluxation. Endplate degenerative changes are seen most prominently at L2-L3 and L3-L4. T12-L1: No central canal or neural foraminal stenosis. Mild spondylosis and moderate facet arthropathy. L1-L2: Mild intervertebral disc space narrowing with mild spondylitic spurring and moderate facet arthrosis. No central canal or foraminal narrowing. L2-L3: Moderate intervertebral disc space narrowing with spondylitic spurring, retrolisthesis and broad-based posterior disc bulge with moderate facet arthrosis and mild ligamentum flavum thickening. Mild central canal, mild right and mild to moderate left foraminal narrowing. L3-L4: Posterior spondylitic spurring with moderate to severe intervertebral disc space narrowing, moderate facet arthrosis with small right facet effusion and ligamentum flavum thickening. Broad-based posterior disc bulge with superimposed central disc protrusion which extends caudally 7 mm causing moderate to severe central canal stenosis with central canal narrowed to 6 mm in AP dimension. Severe left and moderate to severe right foraminal narrowing. L4-L5: Moderate intervertebral disc space narrowing with spondylitic spurring, circumferential annular disc bulge and left paracentral/left foraminal disc protrusion and annular fissure with severe facet arthrosis and ligamentum flavum thickening. Findings cause severe central canal narrowing measuring 5 mm in AP dimension. There is also severe left lateral recess narrowing with moderate to severe left and mild to moderate right foraminal narrowing. L5-S1: Severe facet arthrosis with small facet effusions, small circumferential annular disc bulge with posterior spondylitic spurring. Mild inferior foraminal narrowing on the right. Left foramen and central canal are patent. IMPRESSION: 1. At L4-L5 circumferential annular disc bulge and left paracentral/left foraminal disc protrusion, annular fissure with severe facet arthrosis and ligamentum flavum thickening causes severe central canal and severe left lateral recess narrowing with moderate to severe left and mild to moderate right foraminal narrowing. 2. At L3-L4 discogenic degeneration, facet arthrosis and ligamentum flavum thickening with superimposed central disc protrusion causes moderate to severe central canal stenosis with severe left and moderate to severe right foraminal narrowing. 3. No acute fracture or subluxation identified. The above report was generated using voice recognition software. It may contain grammatical, syntax or spelling errors. Electronically signed by: Ady Will M.D. 09/04/2017 1:00 PM Dictated Date/Time: 09/04/2017 10:05 AM
== END | disposition home or self-care (01) ==
LOC: C.MRI 08:53
PROVIDERS: ATTEND Physical Medicine & Rehabilitation
DX: M12.88 Other specific arthropathies, not elsewhere classified, other specified site (principal); M51.26 Other intervertebral disc displacement, lumbar region

== ENCOUNTER → 2017-09-25 | Outpatient (CLI) | payer BC ==
[2017-09-25 09:37] LABS: BASO % 0.3 %; BASO ABS # 0.02 K/uL (0-0.2); EOS % 2.6 %; EOS ABS # 0.18 K/uL (0-0.5); HEMATOCRIT 43.8 % (42-52); HEMOGLOBIN 14.8 g/dL (14.0-18.0); IG# 0.03 K/uL (0.00-0.02); LYMPH % 22.4 %; LYMPH ABS # 1.57 K/uL (1.2-3.4); MEAN CELL VOLUME 91.6 fL (80-100); MEAN CORPUSCULAR HGB CONC 33.8 g/dl (32-36); MEAN PLATELET VOLUME 12.2 fL (7.4-10.4); MONO % 13.7 %; MONO ABS # 0.96 K/uL (0.11-0.59); NEUT % 60.6 %; NEUT ABS # 4.26 K/uL (1.4-6.5); PLATELET COUNT 226 K/uL (130-400); RED CELL DISTRIBUTION WIDTH CV 14.2 % (11.5-14.5); RED CELL DISTRIBUTION WIDTH SD 48.2 fL (36.4-46.3); WHITE BLOOD COUNT 7.02 K/uL (4.8-10.8)
[2017-09-25 10:03] LABS: ALT/SGPT 25 U/L (12-78); BLOOD UREA NITROGEN 27 mg/dl (7-18); CALCIUM 8.8 mg/dl (8.5-10.1); CARBON DIOXIDE 24 mmol/L (21-32); CHOLESTEROL 113 mg/dl (0-200); CREATININE 1.16 mg/dl (0.60-1.40); GLUCOSE 94 mg/dl (70-99); POTASSIUM 3.8 mmol/L (3.5-5.1); SODIUM 142 mmol/L (136-145); URIC ACID 8.2 mg/dl (2.6-7.2)
[2017-09-25 10:12] LABS: ALKALINE PHOSPHATASE 55 U/L (45-117); AST/SGOT 16 U/L (15-37); LDL CHOLESTEROL CALCULATED 60 mg/dl; TOTAL PROTEIN 6.7 gm/dl (6.4-8.2)
== END | disposition home or self-care (01) ==
LOC: C.LAB1850 08:38
PROVIDERS: ATTEND Internal Medicine
DX: E03.9 Hypothyroidism, unspecified (principal); M10.9 Gout, unspecified; N40.1 Benign prostatic hyperplasia with lower urinary tract symptoms; G47.61 Periodic limb movement disorder

== ENCOUNTER → 2017-10-29 | Outpatient (CLI) | payer BC ==
--- NOTE | 2017-10-29 15:30 | DIAGNOSTIC IMAGING REPORT ---
LEG LENGTH STUDY (WHOLE LEG) HISTORY: 82 years-old Male LEG LENTH DISCREPANCY COMPARISON: None available TECHNIQUE: 5 radiographs of the lower extremities were obtained for a length length study FINDINGS: Left hip hardware is present with an intratrochanteric nail with intramedullary maddy. Left hip medial joint space hemiarthroplasty is noted. Degenerative changes are seen within the bilateral femoral acetabular joints and knees. The right lower extremity measured from the femoral head to the tibial plafond measures 93.4 cm. The left lower extremity measured from the femoral head to the tibial plafond measures 92.2 cm. IMPRESSION: The right lower extremity measures 1.2 cm longer than the left. The above report was generated using voice recognition software. It may contain grammatical, syntax or spelling errors. Electronically signed by: Ady Will M.D. 10/29/2017 3:29 PM Dictated Date/Time: 10/29/2017 3:26 PM
== END | disposition home or self-care (01) ==
LOC: C.RAD 14:47
PROVIDERS: ATTEND Neuromusculoskeletal Medicine & OMM
DX: M21.70 Unequal limb length (acquired), unspecified site (principal)

== ENCOUNTER 2018-10-05 18:15 | Inpatient (IN) ==
[2018-10-05] MEDS ORDERED: methylPREDNISolone 125 MG/2 ML VIAL IV STA (18:35)
[2018-10-05] MEDS ORDERED: ALBUT/IPRATROP 3MG/0.5MG NEB 3 ML VIAL NEB STA ×3 (18:35→20:53)
[2018-10-05 19:37] LABS: Basophils # (auto) 0.02 K/uL (0-0.2); Basophils % (auto) 0.2 %; Eosinophils # (auto) 0.13 K/uL (0-0.5); Eosinophils % (auto) 1.5 %; Hematocrit (blood only) 41.4 % (42-52); Hemoglobin 13.8 g/dL (14.0-18.0); Immature Granulocytes # (auto) 0.04 K/uL (0.00-0.02); Immature Granulocytes % (auto) 0.5 %; Lymphocytes # (auto) 1.57 K/uL (1.2-3.4); Lymphocytes % (auto) 18.3 %; Mean Corpuscular Hgb Conc 33.3 g/dL (32-36); Mean Corpuscular Volume 93.7 fL (80-100); Mean Platelet Volume 11.9 fL (7.4-10.4); Monocytes # (auto) 1.05 K/uL (0.11-0.59); Monocytes % (auto) 12.2 %; Neutrophils # (auto) 5.77 K/uL (1.4-6.5); Neutrophils % (auto) 67.3 %; Platelet Count 165 K/uL (130-400); RDW Coefficient of Variation 14.1 % (11.5-14.5); Red Blood Count 4.42 M/uL (4.7-6.1); White Blood Count 8.58 K/uL (4.8-10.8)
[2018-10-05 20:04] LABS: BUN Creatinine Ratio 16.5 (10-20); Blood Urea Nitrogen 24 mg/dl (7-18); Calcium 8.8 mg/dl (8.5-10.1); Carbon Dioxide 25 mmol/L (21-32); Chloride 108 mmol/L (98-107); Creatinine Clr Calc Pharmacy 47.5 ml/min; Est GFR (African American) 52.5; Est GFR (Non-African American) 45.3; Glucose 93 mg/dl (70-99); NT Pro B Type Natriuretic Pept 136 pg/ml (0-1800); Potassium 4.1 mmol/L (3.5-5.1); Sodium 141 mmol/L (136-145); Troponin I < 0.015 ng/ml (0-0.045)
[2018-10-05 20:06] LABS: Influenza A virus by PCR Neg for Influ A (Neg); Influenza B virus by PCR Neg for Influ B (Neg)
--- NOTE | 2018-10-05 21:02 | XRay Report ---
XR chest 2V routine CLINICAL HISTORY: Shortness of breath. COMPARISON STUDY: Chest radiograph August 31, 2017. FINDINGS: There is no pneumothorax or pleural effusion. Linear bibasilar opacities favor atelectasis. There is no evidence for pulmonary edema. Elevation/eventration of the right hemidiaphragm is unchan ged. Cardiomediastinal silhouette is stable. There is no evidence for pulmonary edema. IMPRESSION: 1. No acute cardiopulmonary findings. 2. Linear bibasilar opacities suggestive of atelectasis. Electronically signed by: Conner Villalpando M.D. 10/05/2018 9:01 PM
--- NOTE | 2018-10-05 22:03 | Emergency Department Note ---
Entered by Nichelle Caceres acting as a scribe for History of Present Illness General Chief complaint: Cough Stated complaint: DEEP COUGH, LOW OXYGEN Time Seen by Provider: 10/05/18 18:30 Source: patient Mode of arrival: ambulatory Limitations: no limitations History of Present Illness Provider complaint: Cough Onset (ago): day(s) (5-7 days) Location: chest Severity: moderate Pain Consistency: + constant Exacerbated By: + none Associated symptoms: + denies other symptoms Patient is a 83 year old male presenting to the ED with cough beginning 5-7 days ago. Patient was sent in by PCP after his cough has been moderate and worsening since onset. Patient states that he does have a history of COPD, and is on Advair and albuterol. He shares that his oxygen sats were 88% and he only uses oxygen at home during the night. Patient denies any chest pain, coughing up phlegm or blood, nausea, vomiting, swelling in the legs, abd pain, or any other complaints or concerns at this time. He lastly shares he is on baby aspirin. Patient did receive the flu shot. Home Medications Home Medications Medication Instructions Recorded Confirmed Type albuterol sulfate 2 puff INHALATION QID PRN 08/02/18 10/05/18 History aspirin 81 mg PO HS 08/02/18 10/05/18 History calcium carbonate-vitamin D3 1 tab PO QAM 08/02/18 10/05/18 History [Calcium 500 + D] celecoxib [Celebrex] 200 mg PO BID 08/02/18 10/05/18 History cholecalciferol (vitamin D3) 1,000 units PO Q2D 08/02/18 10/05/18 History furosemide 40 mg PO QAM 08/02/18 10/05/18 History levothyroxine 150 mcg PO QAM 08/02/18 10/05/18 History magnesium 250 mg PO Q2D 08/02/18 10/05/18 History multivitamin 1 tab PO QPM 08/02/18 10/05/18 History verapamil 180 mg PO QPM 08/02/18 10/05/18 History alendronate 70 mg PO WK 10/05/18 10/05/18 History doxycycline hyclate 100 mg PO BID 10/05/18 10/05/18 History fluticasone-salmeterol [Advair 1 puff INHALATION BID 10/05/18 10/05/18 History Diskus] gabapentin See Label Instructions .ROUTE 10/05/18 10/05/18 History .COMPLEX methocarbamol 500 mg PO Q8H PRN 10/05/18 10/05/18 History potassium chloride 20 meq PO QAM 10/05/18 10/05/18 History ranitidine HCl 300 mg PO AMHS 10/05/18 10/05/18 History tiotropium bromide [Spiriva with 18 mcg INHALATION QAM 10/05/18 10/05/18 History HandiHaler] Allergies Allergy/AdvReac Type Severity Reaction Status Date / Time clarithromycin Allergy Intermediate RASH Verified 08/19/18 12:43 Past Med/Surg History Medical History Chronic obstructive pulmonary disease Fluid retention in legs GERD (gastroesophageal reflux disease) Hypertension Hypothyroidism Osteoarthritis Sleep apnea cpap Surgical History History of cholecystectomy History of colonoscopy History of herniorrhaphy left inguinal History of partial knee replacement left History of tonsillectomy History of tooth extraction Family History Other No significant family history Social History Current Living Situation: Spouse Feels Safe at Home: Yes Smoking Status: Former smoker Second Hand Exposure: No Hx Alcohol Use: No Hx Substance Use: No Beliefs That Will Affect Care: None Preferred Language: Qatari Communication Ability: Effective Review of Systems See HPI for pertinent positives & negatives. and A total of 10 systems reviewed and were otherwise negative Physical Exam Vital Signs Vital Signs - 24 hr 10/05/18 18:25 10/05/18 19:43 Temperature 36.6 C Temperature Source Oral Sepsis Recent Fever Within 48 Hours No Sepsis New/Unexplained Change in Mental Status No Sepsis Action Taken by Nursing No Action Required Pulse Rate 88 Pulse Rate [Apical] 79 Pulse Rhythm [Apical] Regular Pulse Strength [Apical] Normal Respiratory Rate 20 16 Respiratory Effort / Characteristics Non-Labored Spontaneous Non-Labored Respiratory Depth Normal Normal Respiratory Pattern Regular Blood Pressure 149/91 H Blood Pressure [Right Arm] 145/93 H Blood Pressure Mean 110 Blood Pressure Mean [Right Arm] 110 Blood Pressure Position Sitting Blood Pressure Position [Right Arm] Lying Pulse Oximetry 88 L 100 Oxygen Delivery Method Room Air Aerosol Mask GENERAL: He is oriented to person, place, and time. He appears well-developed and well-nourished. He does not appear distressed. HENT: Exam performed. Head: Normocephalic and atraumatic. Right Ear: External ear normal. No mastoid tenderness. Left Ear: External ear normal. No mastoid tenderness. Mouth/Throat: The oropharynx is clear and moist. No trismus in the jaw. No dental abscesses or uvula swelling. No oropharyngeal exudate or tonsillar abscesses. EYES: Conjunctivae and EOM are normal. Pupils are equal, round, and reactive to light. Right eye exhibits no discharge. Left eye exhibits no discharge. No scleral icterus. NECK: Normal range of motion. Neck supple. No JVD present. No spinous process tenderness present. No carotid bruit present. No rigidity. No tracheal deviation and normal range of motion present. No Brudzinski's sign and no Kernig 's sign noted. CV: Normal rate, regular rhythm, normal heart sounds and intact distal pulses. There is no peripheral edema. Palpable radial pulses bue. PULM/CHEST: Effort normal and breath sounds normal. No respiratory distress. No stridor. He has no rales. Diffuse expiratory wheezes. Chest Wall: He exhibits no tenderness. ABD: The abdomen is soft. Bowel sounds are normal. He has no distension. No mass is present. There is no tenderness. There is no rebound, no guarding, no Yuan's sign and no tenderness at McBurney's point. Rovsig negative. MUSC/SKEL: Normal range of motion. There is no tenderness or deformity. 1+ bilateral pitting edema LYMPH: No cervical adenopathy. NEURO: He is alert and oriented to person, place, and time. He has normal strength. No cranial nerve deficit or sensory deficit. Coordination and gait normal. GCS eye subscore is 4. GCS verbal subscore is 5. GCS motor subscore is 6. cerbellar tests wnl. SKIN: Skin is warm and dry. He is not diaphoretic. PSYCH: He has a normal mood and affect. His behavior is normal. Judgment and thought content normal. Course 180: Took command call regarding patient case. Patient has been having cough and worsening SOB. Patient has a history of COPD. Patient is on advair and albuterol. Ox sat was 88%. Patient is on oxygen at home at night 183: Past medical records reviewed. The patient was evaluated in room B12B, and a complete history and physical examination were performed. 1937: Reassessed patient who reports mild improvement in breathing status post nebulizer. Repeat lung exam shows diffuse expiratory wheezes. Repeat nebulizer. 2054: Labs and imaging within normal limits. Repeat lung exam shows few expiratory wheezes. Labs and imaging within normal limits. Patient will be admitted under Dr. Theodore service. Administered Medications Discontinued Medications Albuterol (Duoneb) 3 ml NEB NOW STA Stop: 10/05/18 18:36 Last Admin: 10/05/18 19:23 Dose: 3 ml Albuterol (Duoneb) 3 ml NEB NOW STA Stop: 10/05/18 19:39 Last Admin: 10/05/18 19:42 Dose: 3 ml Albuterol (Duoneb) 3 ml NEB NOW STA Stop: 10/05/18 20:54 Last Admin: 10/05/18 21:28 Dose: 3 ml Methylprednisolone (Solumedrol) 125 mg IV NOW STA Stop: 10/05/18 18:36 Last Admin: 10/05/18 19:24 Dose: 125 mg Medical Decision Making Medical Records Attestation: I reviewed the patient's medical records. Home Medications Current Medication List: was personally reviewed by me Laboratory Data Attestation: I reviewed the patient's lab results. Result diagrams: 10/05/18 19:20 10/05/18 19:20 Lab Results 10/05/18 10/05/18 10/05/18 Range/Units 19:20 19:20 19:26 WBC 8.58 (4.8-10.8) K/uL RBC 4.42 L (4.7-6.1) M/uL Hgb 13.8 L (14.0-18.0) g/dL Hct 41.4 L (42-52) % MCV 93.7 (80-100) fL MCH 31.2 (25-34) pg MCHC 33.3 (32-36) g/dL RDW Std Deviation 48.0 H (36.4-46.3) fL RDW Coeff of Jordan 14.1 (11.5-14.5) % Plt Count 165 (130-400) K/uL MPV 11.9 H (7.4-10.4) fL Immature Gran % (Auto) 0.5 % Neut % (Auto) 67.3 % Lymph % (Auto) 18.3 % [place] % (Auto) 12.2 % Eos % (Auto) 1.5 % Baso % (Auto) 0.2 % Immature Gran # (Auto) 0.04 H (0.00-0.02) K/uL Neut # (Auto) 5.77 (1.4-6.5) K/uL Lymph # (Auto) 1.57 (1.2-3.4) K/uL [place] # (Auto) 1.05 H (0.11-0.59) K/uL Eos # (Auto) 0.13 (0-0.5) K/uL Baso # (Auto) 0.02 (0-0.2) K/uL Sodium 141 (136-145) mmol/L Potassium 4.1 (3.5-5.1) mmol/L Chloride 108 H (98-107) mmol/L Carbon Dioxide 25 (21-32) mmol/L Anion Gap 8.0 (3-11) BUN 24 H (7-18) mg/dl Creatinine 1.43 H (0.6-1.4) mg/dl Est Cr Clr Drug Dosing 47.5 ml/min Est GFR ( Amer) 52.5 Est GFR (Non-Af Amer) 45.3 BUN/Creatinine Ratio 16.5 (10-20) Glucose 93 (70-99) mg/dl Calcium 8.8 (8.5-10.1) mg/dl Troponin I < 0.015 (0-0.045) ng/ml NT-Pro-B Natriuret Pep 136 (0-1800) pg/ml Influenza Type A (PCR) Neg for Influ A (Neg) Influenza Type B (PCR) Neg for Influ B (Neg) Imaging Data Radiologist's Impression: XR chest 2V routine CLINICAL HISTORY: Shortness of breath. COMPARISON STUDY: Chest radiograph August 31, 2017. FINDINGS: There is no pneumothorax or pleural effusion. Linear bibasilar opacities favor atelectasis. There is no evidence for pulmonary edema. Elevation /eventration of the right hemidiaphragm is unchanged. Cardiomediastinal silhouette is stable. There is no evidence for pulmonary edema. IMPRESSION: 1. No acute cardiopulmonary findings. 2. Linear bibasilar opacities suggestive of atelectasis. Electronically signed by: Conner Villalpando M.D. 10/05/2018 9:01 PM ECG Data Attestation: I personally reviewed and interpreted this ECG as follows: Indication: other (cough) Rate (beats per minute): 78 Rhythm: sinus rhythm Findings: + other (PRS, QRS, & QTC within normal limits); no ST depression and no ST elevation MDM Narrative 180: Took command call regarding patient case. Patient has been having cough and worsening SOB. Patient has a history of COPD. Patient is on advair and albuterol. Ox sat was 88%. Patient is on oxygen at home at night 1831: Past medical records reviewed. The patient was evaluated in room B12B, and a complete history and physical examination were performed. 1937: Reassessed patient who reports mild improvement in breathing status post nebulizer. Repeat lung exam shows diffuse expiratory wheezes. Repeat nebulizer. 2054: Labs and imaging within normal limits. Repeat lung exam shows few expiratory wheezes. Labs and imaging within normal limits. Patient will be admitted under Dr. Theodore service. Impression & Plan Hypoxia, COPD exacerbation Discharge Plan Visit Data Chief Complaint: Cough Stated Complaint: DEEP COUGH, LOW OXYGEN ED Provider: Rich Orozco Discharge Problem: Hypoxia, COPD exacerbation Forms Stand Alone Forms: My [facility] Prescriptions Prescriptions: No Action methocarbamol 500 mg tablet 500 mg PO Q8H PRN (Reason: Pain) RF: 0 ranitidine HCl 300 mg tablet 300 mg PO AMHS RF: 0 alendronate 70 mg tablet 70 mg PO WK RF: 0 potassium chloride 20 mEq tablet,ER particles/crystals 20 meq PO QAM RF: 0 fluticasone-salmeterol [Advair Diskus] 500-50 mcg/dose blister with device 1 puff Inhalation BID RF: 0 gabapentin 100 mg capsule See Label Instructions .ROUTE .COMPLEX RF: 0 doxycycline hyclate 100 mg tablet 100 mg PO BID RF: 0 tiotropium bromide [Spiriva with HandiHaler] 18 mcg capsule, w/inhalation device 18 mcg Inhalation QAM RF: 0 multivitamin Tablet 1 tab PO QPM RF: 0 celecoxib [Celebrex] 200 mg Capsule 200 mg PO BID RF: 0 furosemide 40 mg Tablet 40 mg PO QAM RF: 0 verapamil 180 mg Tablet Extended Release 180 mg PO QPM RF: 0 aspirin 81 mg Tablet,Delayed Release (Dr/Ec) 81 mg PO HS RF: 0 magnesium 250 mg Tablet 250 mg PO Q2D RF: 0 albuterol sulfate 90 mcg/actuation Hfa Aerosol Inhaler 2 puff INHALATION QID PRN (Reason: Shortness Of Breath Or Wheezing) RF: 0 calcium carbonate-vitamin D3 [Calcium 500 + D] 500 mg(1,250mg) -200 unit Tablet 1 tab PO QAM RF: 0 cholecalciferol (vitamin D3) 1,000 unit Tablet 1,000 units PO Q2D RF: 0 levothyroxine 150 mcg Capsule 150 mcg PO QAM RF: 0 The scribe's documentation has been prepared under my direction and personally reviewed by me in its entirety. I confirm that the note above accurately reflects all work, treatment, procedures, and medical decision making performed by me.
--- NOTE | 2018-10-05 23:17 | History & Physical Report ---
Date of Service October 05, 2018 Assessment & Plan (1) COPD exacerbation: COPD exacerbation with hypoxia-- Admit to telemetry for close oxygen monitoring. Patient was given Solu-Medrol 125 mg IV in the ED along with duo nebs x3. Placed on Solu-Medrol 40 mg IV every 8 hours, Pulmicort Respules 0.5 mg inhaled twice daily. Duonebs every 4 hours while awake and every 2 hours when necessary. Guaifenesin extended release 600 mg p.o. twice daily. Sputum Gram stain and culture Continue doxycycline 100 mg p.o. twice daily. Nasal cannula 2 L oxygen, titrate to keep pulse ox around 94% Present on Admission?: Yes (2) Hypoxia: See above Present on Admission?: Yes (3) Acute kidney injury: Hypertension/acute kidney injury/fluid overload-- Creatinine mildly increased to 1.43 upon admission. Repeat laboratories in the a.m. Continue verapamil 80 mg p.o. every afternoon Hold oral furosemide. Give furosemide 40 mg IV now and every morning. Continue potassium and magnesium supplements. Present on Admission?: Yes (4) Hypertension: See above Present on Admission?: Yes (5) Hypothyroidism: Continue levothyroxine sodium 150 mcg p.o. every morning Present on Admission?: Yes (6) GERD (gastroesophageal reflux disease): Continue ranitidine 300 mg p.o. twice daily Present on Admission?: Yes History of Present Illness Chief Complaint: Presents emergency department with shortness of breath and nonproductive cough over the past week. Primary Care Provider: Tyler Hawkins MD The patient is a 83-year-old male with a past medical history including COPD, who reports 1 week of persistent shortness of breath and nonproductive cough, worse with exercise. He does use 2 L nasal cannula of oxygen at bedtime, and also uses Advair twice daily, and albuterol nebulizers in the morning and in the evening on a regular basis. He has not increased either of these during this sick interval. He has NOT had any recent travels or sick exposures. He follows with Dr. bedoya from pulmonology and Dr. Hawkins from internal medicine. Allergies Allergy/AdvReac Type Severity Reaction Status Date / Time clarithromycin Allergy Intermediate RASH Verified 08/19/18 12:43 Home Medications Home Medications Medication Instructions Recorded Confirmed Type albuterol sulfate 2 puff INHALATION QID PRN 08/02/18 10/05/18 History aspirin 81 mg PO HS 08/02/18 10/05/18 History calcium carbonate-vitamin D3 1 tab PO QAM 08/02/18 10/05/18 History [Calcium 500 + D] celecoxib [Celebrex] 200 mg PO BID 08/02/18 10/05/18 History cholecalciferol (vitamin D3) 1,000 units PO Q2D 08/02/18 10/05/18 History furosemide 40 mg PO QAM 08/02/18 10/05/18 History levothyroxine 150 mcg PO QAM 08/02/18 10/05/18 History magnesium 250 mg PO Q2D 08/02/18 10/05/18 History multivitamin 1 tab PO QPM 08/02/18 10/05/18 History verapamil 180 mg PO QPM 08/02/18 10/05/18 History alendronate 70 mg PO WK 10/05/18 10/05/18 History doxycycline hyclate 100 mg PO BID 10/05/18 10/05/18 History fluticasone-salmeterol [Advair 1 puff INHALATION BID 10/05/18 10/05/18 History Diskus] gabapentin See Label Instructions .ROUTE 10/05/18 10/05/18 History .COMPLEX methocarbamol 500 mg PO Q8H PRN 10/05/18 10/05/18 History potassium chloride 20 meq PO QAM 10/05/18 10/05/18 History ranitidine HCl 300 mg PO AMHS 10/05/18 10/05/18 History tiotropium bromide [Spiriva with 18 mcg INHALATION QAM 10/05/18 10/05/18 History HandiHaler] Past Med/Surg History Medical History Chronic obstructive pulmonary disease Fluid retention in legs GERD (gastroesophageal reflux disease) Hypertension Hypothyroidism Osteoarthritis Sleep apnea cpap Surgical History History of cholecystectomy History of colonoscopy History of herniorrhaphy left inguinal History of partial knee replacement left History of tonsillectomy History of tooth extraction Family History Other No significant family history Social History Current Living Situation: Spouse Other Information That Helps Us Care for You: No Feels Safe at Home: Yes Safety Concerns: Feels Safe At This Time Smoking Status: Unknown if ever smoked Hx Alcohol Use: No Hx Substance Use: No Beliefs That Will Affect Care: None Preferred Language: Frisian Communication Ability: Effective Campus Administrative Assistant Required: No Review of Systems The patient denies chest pain, palpitations, lower extremity swelling, sore throat, fevers, chills, sweats, weight change, fatigue, nausea, vomiting, diarrhea , constipation, abdominal pain, pelvic pain, blood in urine or stool, dysuria, urinary frequency or urgency, lightheadedness, dizziness, headache, memory loss, loss of consciousness, rash, abnormal bruising or bleeding, imbalance, focal or generalized weakness, numbness or tingling in arms or legs, generalized arthralgias or myalgias, back or neck pain, or night sweats. The review of systems is otherwise negative other than for that already noted above, and at least 10 systems have been reviewed. Physical Exam 2 Vital Signs (Past 24 Hours): Last Vital Signs Temp 36.6 C 10/05/18 18:25 Pulse 85 10/05/18 22:07 Resp 16 10/05/18 22:07 BP 147/84 H 10/05/18 22:07 Pulse Ox 97 10/05/18 22:07 Physical Exam: The patient is awake, alert and oriented 3, well developed and well nourished, normocephalic and atraumatic, lying in bed and in no acute distress. HEENT--PERRL, EOMI, mucous membranes and oropharynx dry. Neck--supple. No JVD. No bruits. Thyroid normal, trachea midline, no adenopathy. Heart--normal S1 and S2. No murmurs, rubs or gallops. Lungs--few coarse breath sounds with scattered wheezes bilaterally. Overall diminished. Abdomen--normal bowel sounds and soft. Nontender. Nondistended, no hernias or masses, no organomegaly. Extremities--no cyanosis or clubbing. No edema. There are good distal pulses b/ l. Dermatologic--normal skin turgor, normal color, no abnormal lymph nodes, no rash. Neurologic--cranial nerves II through XII grossly intact. Rheumatologic--normal range of motion. Psychiatric--normal affect. Results & Data Laboratory Results Laboratory Results WBC 8.58 K/uL (4.8-10.8) 10/05/18 19:20 RBC 4.42 M/uL (4.7-6.1) L 10/05/18 19:20 Hgb 13.8 g/dL (14.0-18.0) L 10/05/18 19:20 Hct 41.4 % (42-52) L 10/05/18 19:20 MCV 93.7 fL (80-100) 10/05/18 19:20 MCH 31.2 pg (25-34) 10/05/18 19:20 MCHC 33.3 g/dL (32-36) 10/05/18 19:20 RDW Std Deviation 48.0 fL (36.4-46.3) H 10/05/18: RDW Coeff of [place] 14.1 % (11.5-14.5) 10/05/18 19:20 Plt Count 165 K/uL (130-400) 10/05/18 19:20 MPV 11.9 fL (7.4-10.4) H 10/05/18 19:20 Immature Gran % (Auto) 0.5 % 10/05/18 19:20 Neut % (Auto) 67.3 % 10/05/18 19:20 Lymph % (Auto) 18.3 % 10/05/18 19:20 [place] % (Auto) 12.2 % 10/05/18 19:20 Eos % (Auto) 1.5 % 10/05/18 19:20 Baso % (Auto) 0.2 % 10/05/18 19:20 Immature Gran # (Auto) 0.04 K/uL (0.00-0.02) H 10/05/18 19:20 Neut # (Auto) 5.77 K/uL (1.4-6.5) 10/05/18 19:20 Lymph # (Auto) 1.57 K/uL (1.2-3.4) 10/05/18 19:20 [place] # (Auto) 1.05 K/uL (0.11-0.59) H 10/05/18 19:20 Eos # (Auto) 0.13 K/uL (0-0.5) 10/05/18 19:20 Baso # (Auto) 0.02 K/uL (0-0.2) 10/05/18 19:20 Sodium 141 mmol/L (136-145) 10/05/18 19:20 Potassium 4.1 mmol/L (3.5-5.1) 10/05/18 19:20 Chloride 108 mmol/L (98-107) H 10/05/18 19:20 Carbon Dioxide 25 mmol/L (21-32) 10/05/18 19:20 Anion Gap 8.0 (3-11) 10/05/18 19:20 BUN 24 mg/dl (7-18) H 10/05/18 19:20 Creatinine 1.43 mg/dl (0.6-1.4) H 10/05/18 19:20 Est Cr Clr Drug Dosing 47.5 ml/min 10/05/18 19:20 Est GFR ( Amer) 52.5 10/05/18 19:20 Est GFR (Non-Af Amer) 45.3 10/05/18 19:20 BUN/Creatinine Ratio 16.5 (10-20) 10/05/18 19:20 Glucose 93 mg/dl (70-99) 10/05/18 19:20 Calcium 8.8 mg/dl (8.5-10.1) 10/05/18 19:20 Troponin I < 0.015 ng/ml (0-0.045) 10/05/18 19:20 NT-Pro-B Natriuret Pep 136 pg/ml (0-1800) 10/05/18 19:20 Influenza Type A (PCR) Neg for Influ A (Neg) 10/05/18 19:26 Influenza Type B (PCR) Neg for Influ B (Neg) 10/05/18 19:26 [phone] Report Patient: NICOLAS YU FAdmit Date: 10/05/18 MR#: [id number] Acct ID:[id number]: Date: [facility] Zip: [place] [id number] Age: 83Location: ED Sex: M Room/Bed: Att Phy: Diagnosis: DEEP COUGH, LOW OXYGEN [place] Phy: Tyler Hawkins, MDService Date: 10/05/18 Fam Phy: Jose Bedoya, DOInterpreting Phy: Conner Villalpando MD Admit Phy: Ordering Phy: Rich Orozco M.D. cc: ~ XR chest 2V routine CLINICAL HISTORY: Shortness of breath. COMPARISON STUDY: Chest radiograph August 31, 2017. FINDINGS: There is no pneumothorax or pleural effusion. Linear bibasilar opacities favor atelectasis. There is no evidence for pulmonary edema. Elevation /eventration of the right hemidiaphragm is unchanged. Cardiomediastinal silhouette is stable. There is no evidence for pulmonary edema. IMPRESSION: 1. No acute cardiopulmonary findings. 2. Linear bibasilar opacities suggestive of atelectasis. Electronically signed by: Conner Villalpando M.D. 10/05/2018 9:01 PM Dictated: 10/05/182058 Transcribed: 10/05/182058 Code Status & VTE Plan Code Status Full code VTE Prophylaxis Plan VTE Prophylaxis will be ordered: Yes
[2018-10-06] MEDS ORDERED: ACETAMINOPHEN 325 MG TAB PO PRN (00:34)
[2018-10-06] MEDS ORDERED: POLYETHYLENE (MIRALAX) 17 GM PACK PO PRN (00:34)
[2018-10-06] MEDS ORDERED: MAGNESIUM HYDROXIDE SUSP 30 ML UDC PO PRN (00:34)
[2018-10-06] MEDS ORDERED: METHOCARBAMOL 500 MG TABLET PO PRN (00:34)
[2018-10-06] MEDS ORDERED: ONDANSETRON INJ 2 MG/ML 2 ML VIAL IV PRN (00:34)
[2018-10-06] MEDS ORDERED: ACETAMINOPHEN 1000 MG/100 ML IV IV PRN (00:34)
[2018-10-06] MEDS ORDERED: ALUMINUM/MAGNESIUM SUSP 30 ML UDC PO PRN (00:34)
[2018-10-06] MEDS ORDERED: FUROSEMIDE 40 MG in SYRINGE 0 ML IV SCH ×2 (00:34→09:00)
[2018-10-06] MEDS: LEVOTHYROXINE SODIUM 150 MCG TABLET PO SCH (05:27)
[2018-10-06] MEDS: methylPREDNISolone 40 MG in SYRINGE 0 ML IV SCH ×2 (05:27→11:32)
[2018-10-06] MEDS: ALBUT/IPRATROP 3MG/0.5MG NEB 3 ML VIAL NEB SCH ×4 (06:55→20:02)
[2018-10-06] MEDS: BUDESONIDE 0.5 MG/2 ML VIAL (PULMICORT) NEB SCH ×2 (06:55→20:02)
[2018-10-06 07:26] LABS: Hematocrit (blood only) 45.3 % (42-52); Hemoglobin 15.1 g/dL (14.0-18.0); Immature Granulocytes # (auto) 0.02 K/uL (0.00-0.02); Immature Granulocytes % (auto) 0.2 %; Lymphocytes # (auto) 0.72 K/uL (1.2-3.4); Mean Corpuscular Hgb Conc 33.3 g/dL (32-36); Mean Corpuscular Volume 92.4 fL (80-100); Monocytes # (auto) 0.04 K/uL (0.11-0.59); Monocytes % (auto) 0.4 %; Neutrophils # (auto) 8.23 K/uL (1.4-6.5); Neutrophils % (auto) 91.4 %; Platelet Count 189 K/uL (130-400); RDW Coefficient of Variation 13.8 % (11.5-14.5); RDW Standard Deviation 46.6 fL (36.4-46.3); White Blood Count 9.01 K/uL (4.8-10.8)
[2018-10-06 07:40] LABS: INR 1.1 (0.9-1.1); Partial Thromboplastin Ratio 1.1; Partial Thromboplastin Time 29.4 Seconds (21.0-31.0); Prothrombin Time 10.6 Seconds (9.0-12.0)
[2018-10-06 07:58] LABS: Albumin Level 3.3 gm/dl (3.4-5.0); BUN Creatinine Ratio 14.5 (10-20); Calcium 8.8 mg/dl (8.5-10.1); Creatinine Clr Calc Pharmacy 42.8 ml/min; Est GFR (African American) 46.5; Est GFR (Non-African American) 40.1; Potassium 4.4 mmol/L (3.5-5.1)
[2018-10-06 08:01] LABS: Albumin Globulin Ratio 0.8 (0.9-2); Bilirubin,Total 0.7 mg/dl (0.2-1); Globulin 4.2 gm/dl (2.5-4.0); Total Protein 7.5 gm/dl (6.4-8.2)
[2018-10-06] MEDS: POTASSIUM CHLORIDE 20 MEQ TABCR PO SCH (08:58)
[2018-10-06] MEDS: GABAPENTIN 300 MG CAP PO SCH ×3 (08:58→21:23)
[2018-10-06] MEDS: CALCIUM 600MG + VIT D 400 IU TAB PO SCH (08:58)
[2018-10-06] MEDS: CeleBREX 200 MG CAP PO SCH ×2 (08:58→21:22)
[2018-10-06] MEDS: DOXYCYCLINE HYCLATE 100 MG CAP PO SCH ×2 (08:59→21:21)
[2018-10-06] MEDS ORDERED: MAGNESIUM OXIDE 400 MG TAB PO SCH (09:00)
[2018-10-06] MEDS ORDERED: CHOLECALCIFEROL 1,000 UNITS TAB PO SCH (09:00)
--- NOTE | 2018-10-06 15:51 | Hospitalist Progress Note ---
Date of Service October 06, 2018 Assessment & Plan (1) COPD exacerbation: COPD exacerbation with hypoxia-- much improved today, no wheezing on exam, no respiratory distress oxygen titrated down to 1L will continue Solu Medrol 40mg IV q8 today, start Prednisone tomorrow AM continue Duonebs every 4 hours while awake and every 2 hours when necessary. Guaifenesin extended release 600 mg p.o. twice daily. Continue doxycycline 100 mg p.o. twice daily (takes chronically, no signs of purulence so would not provide additional coverage) (2) Acute on chronic diastolic (congestive) heart failure: presumed to have diastolic HF, no known history of systolic dysfunction will check echo excellent response to Lasix 40mg IV last night and this morning will hold off on further IV diuretics check Cr tomorrow AM as it went up to 1.58 today (3) Hypoxia: due to both COPD exacerbation and acute heart failure in honesty, could all be due to volume overload titrate oxygen as tolerated (4) Acute kidney injury: Cr was 1.3 on admission, lily to 1.58 with Lasix IV volume overloaded on admission repeat Cr tomorrow (5) Hypertension: stable on Verapamil (6) Hypothyroidism: Continue levothyroxine sodium 150 mcg p.o. every morning (7) GERD (gastroesophageal reflux disease): Continue ranitidine 300 mg p.o. twice daily Subjective patient says his breathing is much improved he responded really well to the lasix, urinating all night and all morning edema in legs is down a lot says his weight was up by about 7 lbs when checked at his PCP office says his breathing got really bad 4 days ago with non-productive cough asked him about chronic Doxycycline use, says Dr. Silva put him on it years ago, since then he has not had bronchitis reviewed labs, Cr up to 1.58 with the Lasix IV electrolytes stable, CBC normal Review of Systems All systems reviewed & are unremarkable except as noted in HPI & below Constitutional: + fatigue and + weakness; no fever and no sweats Respiratory: + cough and + dyspnea on exertion Cardiovascular: + edema (much less) Physical Exam 2 Vital Signs (Past 24 Hours): Last Vital Signs Temp 36.8 C 10/06/18 15:37 Pulse 104 H 10/06/18 15:37 Resp 19 10/06/18 15:37 BP 113/70 10/06/18 15:37 Pulse Ox 95 10/06/18 15:37 Constitutional: WD/WN, vitals as above Eyes: PERRL, conjunctivae normal, anicteric sclerae ENMT: external ear and nose normal, oropharynx normal Neck: trachea midline, no thyromegaly Respiratory: normal respiratory effort, lungs clear to auscultation Auscultation: no rales and no wheezes Cardiovascular: Rate/Rhythm: regular rate and regular rhythm Heart Sounds: normal S1 and normal S2 Vessels: normal peripheral pulses Extremities: + edema (1+ pitting in ankles) Gastrointestinal (Abdomen): normal bowel sounds, soft, nontender, no hepatosplenomegaly Musculoskeletal: no cyanosis or clubbing, extremities motor strength 5/5 Skin: no rashes, warm and dry Neurologic: patellar DTR's 2+ bilat, sensation intact and PERRL, EOMI, accommodation nl, no face palsy, no dysarthria Psychiatric: A+Ox3, euthymic affect Lymphatic: no cervical or axillary lymphadenopathy Results & Data Laboratory Results Laboratory Results - last 24 hr 10/05/18 10/05/18 10/05/18 19:20 19:20 19:26 WBC 8.58 RBC 4.42 L Hgb 13.8 L Hct 41.4 L MCV 93.7 MCH 31.2 MCHC 33.3 RDW Std Deviation 48.0 H RDW Coeff of [place] 14.1 Plt Count 165 MPV 11.9 H Immature Gran % (Auto) 0.5 Neut % (Auto) 67.3 Lymph % (Auto) 18.3 [place] % (Auto) 12.2 Eos % (Auto) 1.5 Baso % (Auto) 0.2 Immature Gran # (Auto) 0.04 H Neut # (Auto) 5.77 Lymph # (Auto) 1.57 [place] # (Auto) 1.05 H Eos # (Auto) 0.13 Baso # (Auto) 0.02 PT INR APTT PTT Ratio Sodium 141 Potassium 4.1 Chloride 108 H Carbon Dioxide 25 Anion Gap 8.0 BUN 24 H Creatinine 1.43 H Est Cr Clr Drug Dosing 47.5 Est GFR ( Amer) 52.5 Est GFR (Non-Af Amer) 45.3 BUN/Creatinine Ratio 16.5 Glucose 93 Calcium 8.8 Total Bilirubin AST ALT Alkaline Phosphatase Troponin I < 0.015 NT-Pro-B Natriuret Pep 136 Total Protein Albumin Globulin Albumin/Globulin Ratio Influenza Type A (PCR) Neg for Influ A Influenza Type B (PCR) Neg for Influ B 10/06/18 10/06/18 10/06/18 07:05 07:05 07:05 WBC 9.01 RBC 4.90 Hgb 15.1 Hct 45.3 MCV 92.4 MCH 30.8 MCHC 33.3 RDW Std Deviation 46.6 H RDW Coeff of [place] 13.8 Plt Count 189 MPV 12.0 H Immature Gran % (Auto) 0.2 Neut % (Auto) 91.4 Lymph % (Auto) 8.0 [place] % (Auto) 0.4 Eos % (Auto) 0.0 Baso % (Auto) 0.0 Immature Gran # (Auto) 0.02 Neut # (Auto) 8.23 H Lymph # (Auto) 0.72 L [place] # (Auto) 0.04 L Eos # (Auto) 0.00 Baso # (Auto) 0.00 PT 10.6 INR 1.1 APTT 29.4 PTT Ratio 1.1 Sodium 139 Potassium 4.4 Chloride 107 Carbon Dioxide 26 Anion Gap 6.0 BUN 23 H Creatinine 1.58 H Est Cr Clr Drug Dosing 42.8 Est GFR ( Amer) 46.5 Est GFR (Non-Af Amer) 40.1 BUN/Creatinine Ratio 14.5 Glucose 148 H Calcium 8.8 Total Bilirubin 0.7 AST 16 ALT 23 Alkaline Phosphatase 61 Troponin I NT-Pro-B Natriuret Pep Total Protein 7.5 Albumin 3.3 L Globulin 4.2 H Albumin/Globulin Ratio 0.8 L Influenza Type A (PCR) Influenza Type B (PCR) Medications Administered Current Inpatient Medications Acetaminophen (Ofirmev) 1,000 mg IV Q8H PRN PRN Reason: Pain or Fever Stop: 11/05/18 00:33 Acetaminophen (Tylenol) 650 mg PO Q4H PRN PRN Reason: Pain or Fever Stop: 11/05/18 00:33 Last Admin: 10/06/18 09:03 Dose: 650 mg Al Hydrox/Mg Hydrox/Simethicone (Maalox) 15 ml PO Q4H PRN PRN Reason: Dyspepsia Stop: 11/05/18 00:33 Albuterol (Duoneb) 3 ml NEB QIDR [facility] Stop: 11/05/18 07:59 Last Admin: 10/06/18 15:18 Dose: 3 ml Aspirin (Ecotrin Ectab) 81 mg PO HS [facility] Stop: 11/05/18 20:59 Budesonide (Pulmicort Respules) 0.5 mg NEB BIDR [facility] Stop: 11/05/18 07:59 Last Admin: 10/06/18 06:55 Dose: 0.5 mg Celecoxib (Celebrex) 200 mg PO BID [facility] Stop: 11/05/18 08:59 Last Admin: 10/06/18 08:58 Dose: 200 mg Doxycycline Hyclate (Vibramycin) 100 mg PO BID [facility] Stop: 10/13/18 08:59 Last Admin: 10/06/18 08:59 Dose: 100 mg Furosemide (Lasix) 40 mg PO QAM [facility] Stop: 11/06/18 08:59 Gabapentin (Neurontin) 300 mg PO TID [facility] Stop: 11/05/18 08:59 Last Admin: 10/06/18 13:17 Dose: 300 mg Methylprednisolone 40 mg/ (Syringe) 0.64 mls @ 1.5 mls/min IV Q8H [facility] Stop: 11/05/18 03:59 Last Admin: 10/06/18 11:32 Dose: 1.5 mls/min Levothyroxine Sodium (Synthroid) 150 mcg PO DAILYBB [facility] Stop: 11/05/18 06:29 Last Admin: 10/06/18 05:27 Dose: 150 mcg Magnesium Hydroxide (Milk Of Magnesia) 30 ml PO Q12H PRN PRN Reason: Constipation Stop: 11/05/18 00:33 Magnesium Oxide (Mag-Ox) 400 mg PO Q2D@0900 [facility] Stop: 11/05/18 08:59 Last Admin: 10/06/18 08:58 Dose: 400 mg Methocarbamol (Robaxin) 500 mg PO Q8H PRN PRN Reason: Pain Stop: 11/05/18 00:33 Multivitamins (Multivitamin Tab) 1 tab PO QPM [facility] Stop: 11/05/18 20:59 Multivitamins/Minerals (Caltrate Plus) 1 tab PO QAM [facility] Stop: 11/05/18 08:59 Last Admin: 10/06/18 08:58 Dose: 1 tab Ondansetron HCl (Zofran) 4 mg IV Q6H PRN PRN Reason: NAUSEA/VOMITING Stop: 11/05/18 00:33 Polyethylene Glycol (Miralax Powder Packet) 17 gm PO DAILY PRN PRN Reason: Constipation Stop: 11/05/18 00:33 Potassium Chloride (Klor-Con M20) 20 meq PO QAM [facility] Stop: 11/05/18 08:59 Last Admin: 10/06/18 08:58 Dose: 20 meq Ranitidine HCl (Zantac) 300 mg PO AMHS [facility] Stop: 11/05/18 08:59 Last Admin: 10/06/18 08:57 Dose: 300 mg Verapamil HCl (Calan Sr) 180 mg PO QPM [facility] Stop: 11/05/18 20:59 Vitamin D (Vitamin D3) 1,000 units PO Q2D [facility] Stop: 11/05/18 08:59 Last Admin: 10/06/18 08:58 Dose: 1,000 units
--- NOTE | 2018-10-06 17:56 | Pulmonary Consultation ---
Date of Consultation October 06, 2018 Assessment & Plan (1) COPD exacerbation: Impression: 1. Mild acute exacerbation of COPD, gold level 2, grade B. 2. Bibasilar linear atelectasis secondary to mucoid impaction. 3. History of diastolic heart failure. Plan: 1. Continue with prednisone 40 mg p.o. daily, for 7 days, then stop it, no need to taper. 2. May discontinue doxycycline after 5 days. Treatment for possible acute on chronic bronchitis. 3. No evidence of pneumonia. 4. Continue current bronchodilators. 5. Wean the oxygen to off and do pulse oximetry on exercise. 6. Patient can be discharged home. 7. Thank you for the kind referral, will follow as needed. History of Present Illness Reason for Consultation: Shortness of breath Requesting Physician: Dr. Wyatt Attending Physician: Henry Wyatt, DO History of Present Illness Dear Dr. Wyatt: Thank you for your kind referral Mrs. Wesley to pulmonary service. This is 83- year-old gentleman with a history of COPD, has been followed by Dr. kim, has been on oxygen only at night, was intubated several years ago for pneumonia in our institution, presented to the hospital with increasing shortness of breath, accompanied with dry cough for the past week. He denies any travel and has not been visited by sick contact. The patient has been using his inhaler which include Advair and albuterol. Recently he was started also on Spiriva. The patient did not have any chest pain, no hemoptysis reported. No abdominal pain no heartburn no nausea or vomiting no change in bowel movements or urine habits and no increased swelling in his lower extremities. The rest of his review of system otherwise was unremarkable. Allergies Allergy/AdvReac Type Severity Reaction Status Date / Time clarithromycin Allergy Intermediate RASH Verified 08/19/18 12:43 Home Medications Home Medications Medication Instructions Recorded Confirmed Type albuterol sulfate 2 puff INHALATION QID PRN 08/02/18 10/05/18 History aspirin 81 mg PO HS 08/02/18 10/05/18 History calcium carbonate-vitamin D3 1 tab PO QAM 08/02/18 10/05/18 History [Calcium 500 + D] celecoxib [Celebrex] 200 mg PO BID 08/02/18 10/05/18 History cholecalciferol (vitamin D3) 1,000 units PO Q2D 08/02/18 10/05/18 History furosemide 40 mg PO QAM 08/02/18 10/05/18 History levothyroxine 150 mcg PO QAM 08/02/18 10/05/18 History magnesium 250 mg PO Q2D 08/02/18 10/05/18 History multivitamin 1 tab PO QPM 08/02/18 10/05/18 History verapamil 180 mg PO QPM 08/02/18 10/05/18 History alendronate 70 mg PO WK 10/05/18 10/05/18 History doxycycline hyclate 100 mg PO BID 10/05/18 10/05/18 History fluticasone-salmeterol [Advair 1 puff INHALATION BID 10/05/18 10/05/18 History Diskus] gabapentin See Label Instructions .ROUTE 10/05/18 10/05/18 History .COMPLEX methocarbamol 500 mg PO Q8H PRN 10/05/18 10/05/18 History potassium chloride 20 meq PO QAM 10/05/18 10/05/18 History ranitidine HCl 300 mg PO AMHS 10/05/18 10/05/18 History tiotropium bromide [Spiriva with 18 mcg INHALATION QAM 10/05/18 10/05/18 History HandiHaler] Patient History Medical History Hypertension (Chronic) Chronic obstructive pulmonary disease Fluid retention in legs GERD (gastroesophageal reflux disease) Hypothyroidism Osteoarthritis Sleep apnea cpap Surgical History History of cholecystectomy History of colonoscopy History of herniorrhaphy left inguinal History of partial knee replacement left History of tonsillectomy History of tooth extraction Family History Other No significant family history Social History marital status: Current Living Situation: Spouse Other Information That Helps Us Care for You: No Feels Safe at Home: Yes Safety Concerns: Feels Safe At This Time Smoking Status: Unknown if ever smoked Hx Alcohol Use: No Hx Substance Use: No Beliefs That Will Affect Care: None Communication Ability: Effective Review of Systems Review of system otherwise was unremarkable including 14 systems. Physical Exam 2 Vital Signs (Past 24 Hours): Last Vital Signs Temp 36.8 C 10/06/18 15:37 Pulse 100 H 10/06/18 17:37 Resp 19 10/06/18 15:37 BP 113/70 10/06/18 15:37 Pulse Ox 95 10/06/18 15:37 Physical Exam: Vital signs are stable, O2 saturation 95% on 1 L, S1-S2 regular rate and rhythm, rhonchi bilaterally, abdomen is benign, no edema. Results & Data Laboratory Results His labs were reviewed which showed stable CBC, CO2 of 26 and BUN/creatinine 23 and 1.58. The rest of his labs are acceptable. Diagnostic Findings Chest x-ray with hyperinflated lungs, small linear atelectasis noted.
[2018-10-06] MEDS ORDERED: MULTIVITAMIN TAB PO SCH (21:00)
[2018-10-06] MEDS ORDERED: VERAPAMIL HCL 180 MG TABCR PO SCH (21:00)
[2018-10-06] MEDS ORDERED: ASPIRIN 81 MG ECTAB PO SCH (21:00)
[2018-10-07] MEDS: LEVOTHYROXINE SODIUM 150 MCG TABLET PO SCH (05:55)
[2018-10-07] MEDS: BUDESONIDE 0.5 MG/2 ML VIAL (PULMICORT) NEB SCH (06:59)
[2018-10-07] MEDS: ALBUT/IPRATROP 3MG/0.5MG NEB 3 ML VIAL NEB SCH ×2 (07:00→11:01)
[2018-10-07] MEDS: CeleBREX 200 MG CAP PO SCH (07:50)
[2018-10-07] MEDS: CALCIUM 600MG + VIT D 400 IU TAB PO SCH (07:50)
[2018-10-07] MEDS: DOXYCYCLINE HYCLATE 100 MG CAP PO SCH (07:51)
[2018-10-07] MEDS: GABAPENTIN 300 MG CAP PO SCH (07:51)
[2018-10-07] MEDS: POTASSIUM CHLORIDE 20 MEQ TABCR PO SCH (07:51)
[2018-10-07 07:59] LABS: Hematocrit (blood only) 41.1 % (42-52); Hemoglobin 13.7 g/dL (14.0-18.0); Immature Granulocytes # (auto) 0.08 K/uL (0.00-0.02); Immature Granulocytes % (auto) 0.4 %; Lymphocytes # (auto) 1.03 K/uL (1.2-3.4); Lymphocytes % (auto) 5.3 %; Mean Corpuscular Hgb Conc 33.3 g/dL (32-36); Mean Corpuscular Volume 92.6 fL (80-100); Mean Platelet Volume 12.4 fL (7.4-10.4); Monocytes # (auto) 1.81 K/uL (0.11-0.59); Monocytes % (auto) 9.4 %; Neutrophils # (auto) 16.37 K/uL (1.4-6.5); Neutrophils % (auto) 84.9 %; Platelet Count 179 K/uL (130-400); RDW Coefficient of Variation 14.1 % (11.5-14.5); RDW Standard Deviation 47.7 fL (36.4-46.3); Red Blood Count 4.44 M/uL (4.7-6.1); White Blood Count 19.29 K/uL (4.8-10.8)
[2018-10-07 08:11] LABS: Albumin Level 2.9 gm/dl (3.4-5.0); BUN Creatinine Ratio 22.9 (10-20); Calcium 8.7 mg/dl (8.5-10.1); Creatinine Clr Calc Pharmacy 45.5 ml/min; Est GFR (African American) 50.3; Est GFR (Non-African American) 43.4; Magnesium 2.6 mg/dl (1.8-2.4); Potassium 4.4 mmol/L (3.5-5.1)
[2018-10-07 08:14] LABS: Albumin Globulin Ratio 0.8 (0.9-2); Bilirubin,Total 0.4 mg/dl (0.2-1); Globulin 3.6 gm/dl (2.5-4.0); Total Protein 6.5 gm/dl (6.4-8.2)
[2018-10-07 08:20] LABS: INR 1.1 (0.9-1.1); Prothrombin Time 10.6 Seconds (9.0-12.0)
[2018-10-07] MEDS ORDERED: FUROSEMIDE 40 MG TAB PO SCH (09:00)
[2018-10-07] MEDS ORDERED: predniSONE 20 MG TAB PO SCH (09:00)
--- NOTE | 2018-10-07 13:02 | Pulmonology Progress Note ---
Date of Service October 07, 2018 Assessment & Plan (1) COPD exacerbation: Impression: 1. Mild acute exacerbation of COPD, gold level 2, grade B. 2. Bibasilar linear atelectasis secondary to mucoid impaction. 3. History of diastolic heart failure. Plan: 1. Continue with prednisone 40 mg p.o. daily, for 7 days, then stop it, no need to taper. 2. May discontinue doxycycline after 5 days. Treatment for possible acute on chronic bronchitis. 3. No evidence of pneumonia. 4. Continue current bronchodilators. 5. Continue oxygen nocturnally. 6. Patient can be discharged home. 7. Ambulate the patient off oxygen. 8. Follow-up with Dr. kim as an outpatient. Thank you, will follow as needed. Subjective Improving, ambulatory, off oxygen, no events overnight. He is 91% on room air. Physical Exam 2 Vital Signs (Past 24 Hours): Last Vital Signs Temp 36.7 C 10/07/18 11:46 Pulse 87 10/07/18 11:46 Resp 18 10/07/18 11:46 BP 111/64 10/07/18 11:46 Pulse Ox 91 10/07/18 11:46 Physical Exam: Vital signs are stable, S1-S2 regular rate and rhythm, lungs are distant clear, minimal rhonchi due to mucoid impaction, abdomen is benign, no edema. Neurologically he is intact. Results & Data Laboratory Results Labs showed leukocytosis, this is steroids related, BUN/creatinine 34-1.48. Diagnostic Findings No new imaging.
--- NOTE | 2018-10-12 15:03 | Discharge Summary ---
Date of Service October 07, 2018 Admission HPI Per Admitting Provider The patient is a 83-year-old male with a past medical history including COPD, who reports 1 week of persistent shortness of breath and nonproductive cough, worse with exercise. He does use 2 L nasal cannula of oxygen at bedtime, and also uses Advair twice daily, and albuterol nebulizers in the morning and in the evening on a regular basis. He has not increased either of these during this sick interval. He has NOT had any recent travels or sick exposures. He follows with Dr. kim from pulmonology and Dr. Hawkins from internal medicine. Admission Exam Per Admitting Provider The patient is awake, alert and oriented 3, well developed and well nourished, normocephalic and atraumatic, lying in bed and in no acute distress. HEENT--PERRL, EOMI, mucous membranes and oropharynx dry. Neck--supple. No JVD. No bruits. Thyroid normal, trachea midline, no adenopathy. Heart--normal S1 and S2. No murmurs, rubs or gallops. Lungs--few coarse breath sounds with scattered wheezes bilaterally. Overall diminished. Abdomen--normal bowel sounds and soft. Nontender. Nondistended, no hernias or masses, no organomegaly. Extremities--no cyanosis or clubbing. No edema. There are good distal pulses b/ l. Dermatologic--normal skin turgor, normal color, no abnormal lymph nodes, no rash. Neurologic--cranial nerves II through XII grossly intact. Rheumatologic--normal range of motion. Psychiatric--normal affect. Principal Diagnosis COPD exacerbation Discharge Exam Constitutional WD/WN, vitals as above Eyes PERRL, conjunctivae normal, anicteric sclerae ENMT external ear and nose normal, oropharynx normal Neck trachea midline, no thyromegaly Respiratory normal respiratory effort, lungs clear to auscultation Auscultation: no rales and no wheezes Cardiovascular Rate/Rhythm: regular rate and regular rhythm Heart Sounds: normal S1 and normal S2 Vessels: normal peripheral pulses Gastrointestinal (Abdomen) normal bowel sounds, soft, nontender, no hepatosplenomegaly Musculoskeletal no cyanosis or clubbing, extremities motor strength 5/5 Skin no rashes, warm and dry Neurologic patellar DTR's 2+ bilat, sensation intact and PERRL, EOMI, accommodation nl, no face palsy, no dysarthria Psychiatric A+Ox3, euthymic affect Lymphatic no cervical or axillary lymphadenopathy Discharge Data Allergies Allergy/AdvReac Type Severity Reaction Status Date / Time clarithromycin Allergy Intermediate RASH Verified 08/19/18 12:43 Consultations 10/05/18 20:53 ED Decision to Admit Stat 10/06/18 00:34 Consult Case Management - Discharge Planning Routine Consult Pulmonology Routine Hospital Course (1) COPD exacerbation: COPD exacerbation with hypoxia-- resolving on the day of discharge, no wheezing on exam, no respiratory distress breathing room air without distress treated with Solu Medrol 40mg IV q8, change to Prednisone 40mg daily, complete a 7 day total course, no need to taper treated with nebulizers while admitted, no need to continue on discharge Guaifenesin extended release 600 mg p.o. twice daily. Continue doxycycline 100 mg p.o. twice daily (takes chronically, no signs of purulence so would not provide additional coverage) (2) Acute on chronic diastolic (congestive) heart failure: presumed to have diastolic HF, no known history of systolic dysfunction ECHO: EF 65-70%, no significant valve disease, mild pulmonary hypertension excellent response to Lasix 40mg IV for two doses will hold off on further IV diuretics Cr stable on discharge recommend continuing Lasix 40mg PO daily to maintain euvolemia instructions for heart failure given recommend following 2L daily fluid restriction patient will buy a new scale with digital readout and weigh himself daily weight dropped by 4 pounds during admission (3) Hypoxia: due to both COPD exacerbation and acute heart failure in honesty, could all be due to volume overload titrated off of oxygen, breathing room air on discharge (4) Acute kidney injury: Cr was 1.3 on admission, lily to 1.58 with Lasix IV volume overloaded on admission Cr 1.4 on discharge, ALFONSO resolved (5) Hypertension: stable on Verapamil (6) Hypothyroidism: Continue levothyroxine sodium 150 mcg p.o. every morning (7) GERD (gastroesophageal reflux disease): Continue ranitidine 300 mg p.o. twice daily Total Time Total Time Spent Total Time Spent (In Minutes): 40 minutes Total Time Includes: Examination of the Patient, Discharge Planning, Medication Reconciliation and Communication With Other Providers (DR. Kenney) Discharge Plan Discharge Items Patient Disposition: Home - Self-Care Reason For Visit: COPD EXACERBATION Discharge Diagnosis: COPD exacerbation/bronchitis Acute diastolic heart failure, volume retention Condition: Good Discharge Goals: Decrease discomfort, Improve disease control and Learn about illness Activity: Resume your previous activity Non-emergency contact: Primary Care Provider and Sales Associate Fishing Call non-emergency contact if: you have any medication questions, your symptoms worsen and you have a fever Follow-up/Referrals: Tyler Hawkins MD [Primary Care Provider] - 10/13/18 11:00 am (Please, follow up at Dr. Hawkins's office with his associate, Katrina NOBLE, on ThursdayOctober 13 at 11:00 am. *If you need to change this appointment, call their office at [phone].) Diet: Heart Healthy and Low Sodium (2gm) Fluids: 2000ml (8 cups) Other Ambulatory Orders: Basic Metabolic Panel (Routine) Timeframe: 1 Week Location: Determined by Patient Ordered By: Henry Girard Provider Instructions: Medications: - PREDNISONE: 40mg daily, starting tomorrow, take for 5 days total, no need to taper - LASIX: use 40mg daily as prescribed COPD exacerbation, acute bronchitis based off of increased cough, increased shortness of breath responded well to steroids and breathing treatments finish 5 more days of Prednisone, continue taking doxycycline Acute diastolic heart failure, volume overload your weight was 230 lbs when you were admitted treated with Lasix 40mg IV for two doses with excellent response weight is 126 lbs today as we discussed, you need to get a new scale with digital read out step on the scale every morning after you urinate, before you eat/drink if your weight is up by 2-3 pounds from your baseline, then that represents fluid retention call Dr. Hawkins for recommendations, can likely double up on lasix that day to get fluid off follow a low salt diet, follow a fluid restriction of 2000mL a day follow up with Dr. Hawkins next week, call his office today to schedule a hospital follow up recommend checking BMP next week at his office Prescriptions: Continue methocarbamol 500 mg tablet 500 mg PO Q8H PRN (Reason: Pain) RF: 0 ranitidine HCl 300 mg tablet 300 mg PO AMHS RF: 0 alendronate 70 mg tablet 70 mg PO WK RF: 0 potassium chloride 20 mEq tablet,ER particles/crystals 20 meq PO QAM RF: 0 fluticasone-salmeterol 500-50 mcg/dose blister with device 1 puff Inhalation BID RF: 0 gabapentin 100 mg capsule See Label Instructions .ROUTE .COMPLEX RF: 0 doxycycline hyclate 100 mg tablet 100 mg PO BID RF: 0 tiotropium bromide 18 mcg capsule, w/inhalation device 18 mcg Inhalation QAM RF: 0 multivitamin Tablet 1 tab PO QPM RF: 0 celecoxib [Celebrex] 200 mg Capsule 200 mg PO BID RF: 0 furosemide 40 mg Tablet 40 mg PO QAM RF: 0 verapamil 180 mg Tablet Extended Release 180 mg PO QPM RF: 0 aspirin 81 mg Tablet,Delayed Release (Dr/Ec) 81 mg PO HS RF: 0 magnesium 250 mg Tablet 250 mg PO Q2D RF: 0 albuterol sulfate 90 mcg/actuation Hfa Aerosol Inhaler 2 puff INHALATION QID PRN (Reason: Shortness Of Breath Or Wheezing) RF: 0 calcium carbonate-vitamin D3 [Calcium 500 + D] 500 mg(1,250mg) -200 unit Tablet 1 tab PO QAM RF: 0 cholecalciferol (vitamin D3) 1,000 unit Tablet 1,000 units PO Q2D RF: 0 levothyroxine 150 mcg Capsule 150 mcg PO QAM RF: 0 Stand-Alone Forms: [facility]/Other Patient Handouts: Prednisone Oral tablet Discharge Orders: Discharge Order (Routine); Ordered 10/07/18 Ordered By: Henry Wyatt Admission Data Admit Date/Time: 10/05/18 23:16 Attending Provider: Henry Wyatt Admit Provider: Jimmie Baires Primary Care Provider: Tyler Hawkins Other Providers: Alice Kenney Service: Telemetry Other Interventions: Discharge Summary Assessment (RN) Last Done: 10/07/18 13:39 DC Date/Time DO NOT enter until pt leaves facility: 10/07/18 14:18
== END 2018-10-07 14:18 | disposition home or self-care (01) | DRG 190 ==
LOC: ED 18:15 → SUATTDRO 23:16 → 2S 23:16
DX: Z87.891 Personal history of nicotine dependence; Z79.51 Long term (current) use of inhaled steroids; Z88.1 Allergy status to other antibiotic agents; Z79.2 Long term (current) use of antibiotics; Z79.82 Long term (current) use of aspirin; I11.0 Hypertensive heart disease with heart failure; I50.33 Acute on chronic diastolic (congestive) heart failure; J98.09 Other diseases of bronchus, not elsewhere classified; K21.9 Gastro-esophageal reflux disease without esophagitis; Z79.1 Long term (current) use of non-steroidal anti-inflammatories (NSAID); J44.1 Chronic obstructive pulmonary disease with (acute) exacerbation; R09.02 Hypoxemia; E03.9 Hypothyroidism, unspecified; J44.0 Chronic obstructive pulmonary disease with (acute) lower respiratory infection; J98.11 Atelectasis; N17.9 Acute kidney failure, unspecified; J20.9 Acute bronchitis, unspecified; Z99.81 Dependence on supplemental oxygen; Z79.899 Other long term (current) drug therapy

== ENCOUNTER 2020-06-22 14:24 | Inpatient (IN) ==
[2020-06-22] MEDS ORDERED: IBUPROFEN 600 MG TAB PO STA (15:03)
[2020-06-22] MEDS ORDERED: SODIUM CHLORIDE 0.9% 500 ML IV ONE (15:06)
--- NOTE | 2020-06-22 15:12 | Emergency Department Note ---
Impression & Plan Weakness, Sepsis, Breathlessness, Pneumonia ED Provider Note Provider: Shaggy Cooper MD DATE OF SERVICE:06/22/2020 CHIEF COMPLAINT: Weakness, shortness of breath HISTORY OF PRESENT ILLNESS: Patient is a 85-year-old gentleman history of COPD, hypothyroidism, diastolic heart failure, cellulitis, hypertension presenting here from home today with the onset of shortness of breath and weakness after breakfast today. Patient is doing well yesterday and this morning he was sat down to have breakfast. Patient states he need to go the bathroom and upon trying to get up from the table to go to the bathroom he felt significantly weak. Denies any trauma or falls. Denies any syncope. Denies any pain including chest pain or abdominal pain. Denies focal numbness or weakness states his legs just felt like rubber. States he is active and losing weight of last several months denies significant fluid gain. States his breathing began to feel short. Patient states he normally wears oxygen at night but not during the day. States he felt a bit feverish and took Tylenol at 11 AM. REVIEW OF SYSTEMS: A total of 10 review of systems was obtained and negative except as stated above in the HPI. PAST MEDICAL HISTORY: As noted above MEDICATIONS: Reviewed home medication list SOCIAL HISTORY: Lives at home by himself, former smoker PHYSICAL EXAM: GENERAL: alert and oriented sitting on stretcher with mask in place. Head: normocephalic and atraumatic EYES: No injection, discharge or icterus. NECK: Trachea midline. Supple. ENT: Mucous membranes pink and moist. Pharynx without exudate but some slight erythema. LUNGS: Airway patent. No retractions with some mild tachypnea. Diffuse expiratory wheeze appreciated. HEART: Regular and tachycardic rate and rhythm. No chest wall tenderness ABDOMEN: Soft and non-tender, without guarding or rebound. SKIN: Acyanotic, warm, dry, without rashes EXTREMITIES: Lower extremities and compression stockings bilaterally without significant tenderness. NEUROLOGICAL: No focal deficits. No aphasia. No facial droop or slurred speech. EK bpm sinus tachycardia with occasional PAC and PVC. No acute ST segment elevation or depression. CONTINUOUS CARDIAC MONITORING: was ordered and showed a heart rate of 120's bpm in sinus tachycardia with PVC PAC, later into the 110's Patient's laboratory studies and imaging reviewed. Differential includes Viral syndrome, otitis, pharyngitis, pneumonia, influenza, meningitis, urinary tract infection, sepsis, bacteremia, as well as other pathologies. IMPRESSION/MEDICAL DECISION MAKING: Patient presents and is now febrile with tachycardia and some shortness of breath and generalized weakness. Concern for possible infectious source. Cultures and lactate ordered. Coronavirus testing ordered. Benign abdomen. Denies chest pain. EKG appears to show sinus tach with ectopy but do not lavonne rly see evidence of atrial fibrillation at this point. Given a small fluid bolus. VBG was obtained. D-dimer sent to help include PE. Chest x-ray questions a possible left basilar opacity versus atelectasis per radiology and on my review. White blood cell count of almost 21 noted with shift. No significant lactate abnormality. However given his fever tachycardia tachypnea concern for infection given empiric dose of cefepime. Patient noted to have normal renal function. proBNP not significantly and troponin is within normal eyes. Given IV fluid. D-dimer was significantly elevated and CT of the chest was completed to look for possible PE and further defy pulmonary parenchymal process. PE negative per radiology. Groundglass opacities left greater than right noted at the base of the lungs question atelectasis but in this clinical context concern for possible infection/pneumonia. Changes consistent with bronchitis are noted. He is wheezy on exam and given albuterol/ipratropium now coronavirus rapid test is negative. Procalcitonin mildly elevated. Lactate slightly elevated. Given the patient's symptoms believe further inpatient treatment and monitoring is indicated. Discussed with the patient who is in agreement and the hospitalist was contacted. Fever has broken with some Motrin here. Patient again is not been significantly hypotensive here. Patient continues to be tachycardic while with regular ectopy but does not appear again to be in atrial fibrillation. Patient states he will call and update his family via the phone in the room. DIAGNOSIS: sepsis, weakness, shortness of breath, pneumonia DISPOSITION: Hospitalist will evaluate Patient was agreeable with this plan. Past Med/Surg History Medical History (Updated 06/22/20 @ 17:21 by Shaggy Cooper M.D.) BPH (benign prostatic hyperplasia) Chronic obstructive pulmonary disease Diastolic CHF Fluid retention in legs GERD (gastroesophageal reflux disease) History of cellulitis Hypertension Hypothyroidism Left lumbar radiculopathy Lumbar spinal stenosis On home oxygen therapy 02 2LPM AT Osteoarthritis Osteoporosis, unspecified Personal history of MRSA (methicillin resistant Staphylococcus aureus) Sleep apnea cpap Spinal stenosis Surgical History History of cardiac cath 12/2019 - [place] - increased edema - no stents/angioplasty History of cholecystectomy History of colonoscopy History of herniorrhaphy left inguinal History of partial knee replacement left History of tonsillectomy History of tooth extraction Hx of surgical procedure LEFT FEMUR FX WITH REPAIR Family History Mother Cerebral atherosclerosis Father Diverticulosis Other No significant family history Denies family history of Ovarian cancer Prostate cancer Myocardial infarction Breast cancer Colorectal cancer Social History Smoking Status: Former smoker packs per day: 1; Cigarettes Per Day: 20; Number of Years Since Quit: 14; Second Hand Exposure: No; Hx Alcohol Use: Yes Alcohol type: beer Hx Substance Use: No Preferred Language: Finnish Communication Ability: Effective Visual Impairment: No Limitations Hearing Ability: Normal Certified Juvenile Probation Officer Required: No Beliefs That Will Affect Care: None marital status: Current Living Situation: Spouse current occupational status: retired Feels Safe at Home: Yes Dental Care, Regularly: No Physical Activity Frequency: 1-2 Times per Week Seatbelt Use: always Sunscreen Use: Yes Assistive Devices: Cane, Denture - Upper, Denture - Lower and Oxygen - Continuous Allergies Allergies Allergy/AdvReac Type Severity Reaction Status Date / Time clarithromycin Allergy Intermediate RASH Verified 06/22/20 16:53 Home Meds Home Medications Medication Instructions Recorded Confirmed albuterol sulfate 2 puff INHALATION QID PRN 08/02/18 06/22/20 magnesium 250 mg PO DAILY 08/02/18 06/22/20 multivitamin 1 tab PO WK 08/02/18 06/22/20 cholecalciferol (vitamin D3) 25 1,000 units PO DAILY tab 05/30/19 06/22/20 mcg (1,000 unit) tablet gabapentin 300 mg capsule 300 mg PO TID 05/30/19 06/22/20 Oxygen Home #1 ea 08/17/19 06/12/20 levothyroxine 150 mcg PO QAM 05/07/20 06/22/20 Trelegy Ellipta 1 puffs INH Q24W 06/22/20 06/22/20 calcium carbonate-vitamin D3 1 tab PO QAM 06/22/20 06/22/20 [Calcium 500 With D] psyllium husk (with sugar) [Fiber 1 tbsp PO DAILY 06/22/20 06/22/20 (psyllium husk/sugar)] verapamil 180 mg PO HS 06/22/20 06/22/20 Previous Rx's Medication Instructions Recorded ipratropium 0.5 mg-albuterol 3 mg 3 ml INH QID PRN #1080 ml 08/17/19 (2.5 mg base)/3 mL nebulization soln omeprazole magnesium 20 mg 20 mg PO QAM #90 tab 10/05/19 tablet,delayed release potassium chloride 20 mEq 20 meq PO QAM #90 tab 10/05/19 tablet,extended release(part/cryst) doxycycline hyclate 100 mg tablet 100 mg PO BID #60 tab 02/21/20 ciclopirox 8 % topical solution 1 applic TOPICAL DAILY #6.6 ml 06/12/20 Results & Data (ED) Vital Signs Vital Signs - 24 hr 06/22/20 14:50 06/22/20 15:14 06/22/20 15:20 Temperature 38.2 C H Temperature Source Oral Pulse Rate 117 H 124 H Respiratory Rate 22 24 Respiratory Effort / Characteristics Non-Labored Spontaneous Respiratory Depth Normal Respiratory Pattern Regular Blood Pressure 130/83 109/64 Blood Pressure Mean 98 75 Pulse Oximetry 99 99 98 Oxygen Delivery Method Nasal Cannula Nasal Cannula Nasal Cannula Oxygen Flow Rate 4 4 3 Sepsis Recent Fever Within 48 Hours Yes Sepsis New/Unexplained Change in Mental Status N/A Sepsis Action Taken by Nursing Physician Notified 06/22/20 15:30 06/22/20 16:15 06/22/20 16:21 Temperature 37.1 C Temperature Source Oral Pulse Rate 129 H 117 H Respiratory Rate 22 24 Respiratory Effort / Characteristics Respiratory Depth Respiratory Pattern Blood Pressure 112/65 99/59 L Blood Pressure Mean 79 63 Pulse Oximetry 98 99 Oxygen Delivery Method Nasal Cannula Nasal Cannula Oxygen Flow Rate 3 3 Sepsis Recent Fever Within 48 Hours Sepsis New/Unexplained Change in Mental Status Sepsis Action Taken by Nursing 06/22/20 16:30 Temperature Temperature Source Pulse Rate 117 H Respiratory Rate 24 Respiratory Effort / Characteristics Respiratory Depth Respiratory Pattern Blood Pressure 109/63 Blood Pressure Mean 86 Pulse Oximetry 99 Oxygen Delivery Method Nasal Cannula Oxygen Flow Rate 2 Sepsis Recent Fever Within 48 Hours Sepsis New/Unexplained Change in Mental Status Sepsis Action Taken by Nursing Laboratory Data Result diagrams: 06/22/20 14:42 06/22/20 14:42 Lab Results 06/22/20 06/22/20 06/22/20 Range/Units 14:42 14:42 14:42 WBC 20.97 H (4.8-10.8) K/uL RBC 5.04 (4.7-6.1) M/uL Hgb 15.6 (14.0-18.0) g/dL Hct 46.2 (42-52) % MCV 91.7 (80-100) fL MCH 31.0 (25-34) pg MCHC 33.8 (32-36) g/dL RDW Std Deviation 45.8 (36.4-46.3) fL RDW Coeff of [place] 13.7 (11.5-14.5) % Plt Count 154 (130-400) K/uL MPV 11.5 H (7.4-10.4) fL Immature Gran % (Auto) 0.3 % Neut % (Auto) 94.1 % Lymph % (Auto) 3.4 % [place] % (Auto) 2.1 % Eos % (Auto) 0.1 % Baso % (Auto) 0.0 % Neut # (Auto) 19.70 H (1.4-6.5) K/uL Lymph # (Auto) 0.71 L (1.2-3.4) K/uL [place] # (Auto) 0.45 (0.11-0.59) K/uL Eos # (Auto) 0.03 (0-0.5) K/uL Baso # (Auto) 0.01 (0-0.2) K/uL Immature Gran # (Auto) 0.07 H (0.00-0.02) K/uL PT 10.4 (9.0-12.0) Seconds INR 1.0 (0.9-1.1) APTT 28.8 (21.0-31.0) Seconds PTT Ratio 1.0 D-Dimer 5690 H* (0-500) ug/L FEU VBG pH (7.36-7.41) VBG pCO2 (38-50) mmHg VBG pO2 mmHg VBG HCO3 mmol/L VBG O2 Saturation % VBG Base Excess mEq/L Barometric Pressure mm/Hg Sodium 140 (136-145) mmol/L Potassium 3.6 (3.5-5.1) mmol/L Chloride 110 H (98-107) mmol/L Carbon Dioxide 25 (21-32) mmol/L Anion Gap 5.0 (3-11) BUN 26 H (7-18) mg/dl Creatinine 1.04 (0.6-1.4) mg/dl Est Cr Clr Drug Dosing 61.6 ml/min Est GFR ( Amer) 76.1 Est GFR (Non-Af Amer) 65.6 BUN/Creatinine Ratio 25.2 H (10-20) Glucose 85 (70-99) mg/dl Lactate (0.4-2.0) mmol/L Calcium 8.8 (8.5-10.1) mg/dl Magnesium 2.0 (1.8-2.4) mg/dl Total Bilirubin 1.2 H (0.2-1) mg/dl AST 18 (15-37) U/L ALT 25 (12-78) U/L Alkaline Phosphatase 61 (45-117) U/L Troponin I < 0.015 (0-0.045) ng/ml NT-Pro-B Natriuret Pep 296 (0-1800) pg/ml Total Protein 6.7 (6.4-8.2) gm/dl Albumin 2.9 L (3.4-5.0) gm/dl Globulin 3.8 (2.5-4.0) gm/dl Albumin/Globulin Ratio 0.8 L (0.9-2) Procalcitonin (0-0.5) ng/ml COVID-19 Eval Order COVID-19 PCR (Negative) Influ A Molecular Assay (Negative) Influ B Molecular Assay (Negative) 06/22/20 06/22/20 06/22/20 Range/Units 14:42 14:42 14:42 WBC (4.8-10.8) K/uL RBC (4.7-6.1) M/uL Hgb (14.0-18.0) g/dL Hct (42-52) % MCV (80-100) fL MCH (25-34) pg MCHC (32-36) g/dL RDW Std Deviation (36.4-46.3) fL RDW Coeff of Jordan (11.5-14.5) % Plt Count (130-400) K/uL MPV (7.4-10.4) fL Immature Gran % (Auto) % Neut % (Auto) % Lymph % (Auto) % [place] % (Auto) % Eos % (Auto) % Baso % (Auto) % Neut # (Auto) (1.4-6.5) K/uL Lymph # (Auto) (1.2-3.4) K/uL [place] # (Auto) (0.11-0.59) K/uL Eos # (Auto) (0-0.5) K/uL Baso # (Auto) (0-0.2) K/uL Immature Gran # (Auto) (0.00-0.02) K/uL PT (9.0-12.0) Seconds INR (0.9-1.1) APTT (21.0-31.0) Seconds PTT Ratio D-Dimer (0-500) ug/L FEU VBG pH (7.36-7.41) VBG pCO2 (38-50) mmHg VBG pO2 mmHg VBG HCO3 mmol/L VBG O2 Saturation % VBG Base Excess mEq/L Barometric Pressure mm/Hg Sodium (136-145) mmol/L Potassium (3.5-5.1) mmol/L Chloride (98-107) mmol/L Carbon Dioxide (21-32) mmol/L Anion Gap (3-11) BUN (7-18) mg/dl Creatinine (0.6-1.4) mg/dl Est Cr Clr Drug Dosing ml/min Est GFR ( Amer) Est GFR (Non-Af Amer) BUN/Creatinine Ratio (10-20) Glucose (70-99) mg/dl Lactate (0.4-2.0) mmol/L Calcium (8.5-10.1) mg/dl Magnesium (1.8-2.4) mg/dl Total Bilirubin (0.2-1) mg/dl AST (15-37) U/L ALT (12-78) U/L Alkaline Phosphatase (45-117) U/L Troponin I (0-0.045) ng/ml NT-Pro-B Natriuret Pep (0-1800) pg/ml Total Protein (6.4-8.2) gm/dl Albumin (3.4-5.0) gm/dl Globulin (2.5-4.0) gm/dl Albumin/Globulin Ratio (0.9-2) Procalcitonin 0.87 H (0-0.5) ng/ml COVID-19 Eval Order Covid19 Done at [facility] COVID-19 PCR NEGATIVE (Negative) Influ A Molecular Assay (Negative) Influ B Molecular Assay (Negative) 06/22/20 06/22/20 06/22/20 Range/Units 15:52 15:52 Unknown WBC (4.8-10.8) K/uL RBC (4.7-6.1) M/uL Hgb (14.0-18.0) g/dL Hct (42-52) % MCV (80-100) fL MCH (25-34) pg MCHC (32-36) g/dL RDW Std Deviation (36.4-46.3) fL RDW Coeff of Jordan (11.5-14.5) % Plt Count (130-400) K/uL MPV (7.4-10.4) fL Immature Gran % (Auto) % Neut % (Auto) % Lymph % (Auto) % [place] % (Auto) % Eos % (Auto) % Baso % (Auto) % Neut # (Auto) (1.4-6.5) K/uL Lymph # (Auto) (1.2-3.4) K/uL [place] # (Auto) (0.11-0.59) K/uL Eos # (Auto) (0-0.5) K/uL Baso # (Auto) (0-0.2) K/uL Immature Gran # (Auto) (0.00-0.02) K/uL PT (9.0-12.0) Seconds INR (0.9-1.1) APTT (21.0-31.0) Seconds PTT Ratio D-Dimer (0-500) ug/L FEU VBG pH 7.35 L (7.36-7.41) VBG pCO2 50 (38-50) mmHg VBG pO2 23 mmHg VBG HCO3 27 mmol/L VBG O2 Saturation < 60.0 % VBG Base Excess 0.4 mEq/L Barometric Pressure 734.0 mm/Hg Sodium (136-145) mmol/L Potassium (3.5-5.1) mmol/L Chloride (98-107) mmol/L Carbon Dioxide (21-32) mmol/L Anion Gap (3-11) BUN (7-18) mg/dl Creatinine (0.6-1.4) mg/dl Est Cr Clr Drug Dosing ml/min Est GFR ( Amer) Est GFR (Non-Af Amer) BUN/Creatinine Ratio (10-20) Glucose (70-99) mg/dl Lactate 2.2 H* (0.4-2.0) mmol/L Calcium (8.5-10.1) mg/dl Magnesium (1.8-2.4) mg/dl Total Bilirubin (0.2-1) mg/dl AST (15-37) U/L ALT (12-78) U/L Alkaline Phosphatase (45-117) U/L Troponin I (0-0.045) ng/ml NT-Pro-B Natriuret Pep (0-1800) pg/ml Total Protein (6.4-8.2) gm/dl Albumin (3.4-5.0) gm/dl Globulin (2.5-4.0) gm/dl Albumin/Globulin Ratio (0.9-2) Procalcitonin (0-0.5) ng/ml COVID-19 Eval Order COVID-19 PCR (Negative) Influ A Molecular Assay Negative (Negative) Influ B Molecular Assay Negative (Negative) Administered Medications Discontinued Medications Sodium Chloride (Nss) 500 mls @ 999 mls/hr IV .Q31M ONE Stop: 06/22/20 15:36 Last Infusion: 06/22/20 16:15 Dose: 0 mls/hr Documented by: [id number] Admin: 06/22/20 15:20 Dose: 999 mls/hr Documented by: [id number] Cefepime HCl (Maxipime) 2,000 mg in 20 mls @ 5 mls/min IV NOW STA; Protocol Stop: 06/22/20 15:43 Last Admin: 06/22/20 16:15 Dose: 5 mls/min Documented by: [id number] Sodium Chloride (Nss 1000ml) 1,000 mls @ 999 mls/hr IV .Q1H1M ONE Stop: 06/22/20 16:58 Last Admin: 06/22/20 16:15 Dose: 999 mls/hr Documented by: [id number] Ibuprofen (Ibuprofen 600 Mg Tab) 600 mg PO NOW STA Stop: 06/22/20 15:04 Last Admin: 06/22/20 15:20 Dose: 600 mg Documented by: [id number] Ioversol (Optiray 320 125ml) 115 ml IV ONCE ONE Stop: 06/22/20 16:47 Last Admin: 06/22/20 16:47 Dose: 115 ml Documented by: [id number] Discharge Plan Visit Data Chief Complaint: Illness ED Provider: Shaggy Cooper Discharge Problem: Weakness, Sepsis, Breathlessness, Pneumonia Patient Disposition: Being Evaluated by Hospitalist Forms Stand Alone Forms: My [facility] Prescriptions Prescriptions: No Action gabapentin 300 mg capsule 300 mg PO TID RF: 0 ciclopirox 8 % solution 1 applic topical DAILY Qty: 6.6 RF: 2 (DME) Oxygen Home Liters Per Minute See Rx Instructions .ROUTE .MEDSUPPLY Qty: 1 RF: 0 ipratropium-albuterol 0.5 mg-3 mg(2.5 mg base)/3 mL solution for nebulization 3 ml INH QID PRN (Reason: shortness of breath) Qty: 1080 RF: 3 Prilosec OTC 20 mg tablet,delayed release (DR/EC) 20 mg PO QAM Qty: 90 RF: 3 potassium chloride 20 mEq tablet,ER particles/crystals 20 meq PO QAM Qty: 90 RF: 3 doxycycline hyclate 100 mg tablet 100 mg PO BID Qty: 60 RF: 3 levothyroxine 150 mcg tablet 150 mcg PO QAM RF: 0 calcium carbonate-vitamin D3 [Calcium 500 With D] 500 mg(1,250mg) -400 unit Tablet 1 tab PO QAM RF: 0 Fiber (psyllium husk/sugar) 3.4 gram/11 gram Powder 1 tbsp PO DAILY RF: 0 verapamil 180 mg tablet extended release 180 mg PO HS RF: 0 Trelegy Ellipta 100-62.5-25 mcg blister with device 1 puffs INH Q24W RF: 0 multivitamin Tablet 1 tab PO WK RF: 0 magnesium 250 mg Tablet 250 mg PO DAILY RF: 0 albuterol sulfate 90 mcg/actuation Hfa Aerosol Inhaler 2 puff INHALATION QID PRN (Reason: Shortness Of Breath Or Wheezing) RF: 0 cholecalciferol (vitamin D3) 1,000 unit (25 mcg) tablet 1,000 units PO DAILY RF: 0 Referrals Referrals: Tyler Hawkins MD [Primary Care Provider] - Discharge Problem: Sepsis Qualifiers: Sepsis type: sepsis due to unspecified organism Sepsis acute organ dysfunction status: unspecified Qualified Code(s): A41.9 - Sepsis, unspecified organism Pneumonia Qualifiers: Pneumonia type: due to unspecified organism Laterality: bilateral Lung location: lower lobe of lung Qualified Code(s): J18.9 - Pneumonia, unspecified organism
--- NOTE | 2020-06-22 15:23 | XRay Report ---
XR chest 1V portable CLINICAL HISTORY: SEPSIS COMPARISON STUDY: 12/21/2019 FINDINGS: The heart is enlarged. There are chronic reticulonodular opacities. There are increasing op acities the left lung base, likely atelectatic although an infectious/inflammatory process cannot be excluded. There is no overt failure. There is no lobar consolidation IMPRESSION: 1. Cardiomegaly 2. Chronic reticulonodular opacities 3. Increasing left basilar opacities likely atelectatic although a superimposed infectious/inflammato ry process cannot be excluded ACT 112: Negative or not required by law. Electronically signed by: Mike Goff M.D. 06/22/2020 3:21 PM
[2020-06-22 15:34] LABS: Basophils # (auto) 0.01 K/uL (0-0.2); Eosinophils # (auto) 0.03 K/uL (0-0.5); Eosinophils % (auto) 0.1 %; Hematocrit (blood only) 46.2 % (42-52); Hemoglobin 15.6 g/dL (14.0-18.0); Immature Granulocytes # (auto) 0.07 K/uL (0.00-0.02); Immature Granulocytes % (auto) 0.3 %; Lymphocytes # (auto) 0.71 K/uL (1.2-3.4); Lymphocytes % (auto) 3.4 %; Mean Corpuscular Hgb Conc 33.8 g/dL (32-36); Mean Corpuscular Volume 91.7 fL (80-100); Mean Platelet Volume 11.5 fL (7.4-10.4); Monocytes # (auto) 0.45 K/uL (0.11-0.59); Monocytes % (auto) 2.1 %; Neutrophils % (auto) 94.1 %; Platelet Count 154 K/uL (130-400); RDW Coefficient of Variation 13.7 % (11.5-14.5); RDW Standard Deviation 45.8 fL (36.4-46.3); Red Blood Count 5.04 M/uL (4.7-6.1); White Blood Count 20.97 K/uL (4.8-10.8)
[2020-06-22 15:35] LABS: Alanine Aminotransferase 25 U/L (12-78); Albumin Level 2.9 gm/dl (3.4-5.0); Aspartate Aminotransferase 18 U/L (15-37); BUN Creatinine Ratio 25.2 (10-20); Blood Urea Nitrogen 26 mg/dl (7-18); Calcium 8.8 mg/dl (8.5-10.1); Carbon Dioxide 25 mmol/L (21-32); Chloride 110 mmol/L (98-107); Creatinine Clr Calc Pharmacy 61.6 ml/min; Est GFR (African American) 76.1; Est GFR (Non-African American) 65.6; Glucose 85 mg/dl (70-99); Potassium 3.6 mmol/L (3.5-5.1); Sodium 140 mmol/L (136-145)
[2020-06-22] MEDS ORDERED: CEFEPIME 2,000 MG/20 ML VIAL IV STA (15:40)
[2020-06-22 15:42] LABS: Albumin Globulin Ratio 0.8 (0.9-2); Alkaline Phosphatase 61 U/L (45-117); Bilirubin,Total 1.2 mg/dl (0.2-1); Globulin 3.8 gm/dl (2.5-4.0); NT Pro B Type Natriuretic Pept 296 pg/ml (0-1800); Total Protein 6.7 gm/dl (6.4-8.2); Troponin I < 0.015 ng/ml (0-0.045)
[2020-06-22] MEDS ORDERED: SODIUM CHLORIDE 0.9% 1000ML 1,000 ML IV ONE (15:58)
[2020-06-22 16:12] LABS: Base Excess VBG 0.4 mEq/L; HCO3 VBG 27 mmol/L; Oxygen Saturation VBG < 60.0 %; PCO2 VBG 50 mmHg (38-50); PO2 VBG 23 mmHg; pH VBG 7.35 (7.36-7.41)
[2020-06-22 16:14] LABS: Partial Thromboplastin Time 28.8 Seconds (21.0-31.0); Prothrombin Time 10.4 Seconds (9.0-12.0)
[2020-06-22 16:20] LABS: D Dimer 5690 ug/L FEU (0-500)
[2020-06-22 16:21] LABS: Influenza A virus by PCR Negative (Negative); Influenza B virus by PCR Negative (Negative)
--- NOTE | 2020-06-22 16:34 | Electrocardiogram Report ---
Test Reason : Blood Pressure : / mmHG Vent. Rate : 119 BPM Atrial Rate : 119 BPM P-R Int : 132 ms QRS Dur : 066 ms QT Int : 312 ms P-R-T Axes : 022 -43 028 degrees QTc Int : 438 ms Sinus tachycardia with Premature supraventricular complexes and with occasional Premature ventricular complexes Left axis deviation Anterior infarct , age undetermined Abnormal ECG When compared with ECG of 25-SEP-2019 11:24, Premature ventricular complexes are now Present Confirmed by Stas Patton ([id number]) on 06/22/2020 4:34:08 PM Referred By: REFERRED SELF Confirmed By:Yefri Patton
[2020-06-22] MEDS ORDERED: OPTIRAY 320 125ml IV ONE (16:46)
--- NOTE | 2020-06-22 17:07 | CT Scan Report ---
CT angio chest PE protocol CT DOSE: 566.40 mGycm HISTORY: 85 years-old Male with PE, tachy, sob, +dimer. Acute tachycardia with shortness of breath and elevated d-dimer level TECHNIQUE: Multiple CTA images of the chest were obtained after the intravenous administration of 115 ml Optiray 320. Coronal and sagittal MIPS were obtained from the axial data set and were submitted for review. All measurements were obtained according to NASCET criteria. A dose lowering technique w as utilized adhering to the principles of ALARA. COMPARISON: Chest radiograph of same day, CT abdomen 06/10/2007 FINDINGS: CTA: Mild cardiomegaly. There is no pericardial effusion. Moderate mixed plaque of the thoracic aorta with out aneurysm or dissection. Patency of the imaged great vessels. The pulmonary artery is opacified to the level of the segmental branches. The subsegmental branches are not well evaluated the lung bases secondary to contrast bolus timing and respiratory motion. No filling defects identified to suggest thromboembolic disease. CT CHEST: No adenopathy. No pneumothorax or pleural effusion. Moderate emphysema with bronchial wall thickening . Left greater than right bibasilar groundglass densities. Lingula 8 mm subpleural nodule of the ling airam, image 142 series 4 is new from prior. Central airways are patent. No acute process of the imaged upper abdomen. Hepatic steatosis. Soft tissues are unremarkable. 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 Degenerative changes of the shoulders and spine. IMPRESSION: 1. Cardiomegaly without evidence of pulmonary thromboembolic disease. 2. Moderate emphysema with bronchitis. 3. Left greater than right bibasilar groundglass densities suggest atelectasis. 4. No adenopathy or pleural effusion. 5. 8 mm subpleural solid nodule of the lingula is new from 2011. Follow-up guidelines provided below. 6. Hepatic steatosis. Please refer to below summary of Fleischner criteria recommendations for follow-up of incidental CT n odules (Raymundo Trinh, Guidelines for management of small pulmonary nodules detected on CT scans: A sta tement from the Fleischner Society, Radiology 237: [phone].) SOLID NODULES Solitary nodule size: 6-8 mm * Low risk patients: follow-up at 6-12 months, then consider further follow-up at 18-24 months * high risk patients: initial follow-up CT at 6-12 months and then at 18-24 months if no change Solitary nodule size: >8 mm * either low or high risk patients - consider follow-up CT at 3 months, and/or CT-PET, and/or biopsy Note: newly detected indeterminate nodule in persons 35 years of age or older. * Low risk patients: minimal or absent history of smoking and/or other known risk factors * high risk patients: history of smoking or of other known risk factors (e.g. first degree relative with lung cancer, or exposure to asbestos, radon, uranium) * if a nodule up to 8 mm is partly solid or is ground glass further follow-up is required after 24 m onths to exclude possible slow growing adenocarcinoma (DINORAH) ACT 112: Negative or not required by law. The above report was generated using voice recognition software. It may contain grammatical, syntax o r spelling errors. Electronically signed by: Ady Will M.D. 06/22/2020 5:06 PM
[2020-06-22] MEDS ORDERED: ALBUT/IPRATROP 3MG/0.5MG NEB 3 ML VIAL NEB STA (17:17)
--- NOTE | 2020-06-22 17:57 | History & Physical Report ---
Date of Service June 22, 2020 Assessment & Plan (1) Sepsis: - Admit to med surg with tele - tachycardic, febrile, with leukocytosis, hypoxic requiring increased supplemental O2, lactic acid elevated, pro calcitonin elevated, hypotensive with BP of 99/59 - Possible source is pna with history of COPD, bronchitis - ruling out other sources of infection including urinary tract infection, UA has not yet been obtained but is ordered - Sputum culture, mucinex, xopenex QID and Q2H prn - Wean O2 prn, wears 2 L HS at baseline, currently sats at 96% on RA after second neb treatment, he does have a neb machine at home but did not use it today - Influenza swab neg, MRSA swab ordered, COVID-19 neg - WBC at time of admission = 20.97 - BCx x 2, follow - given dose of cefepime in the ER, continue IV cefepime and IV Vanco for broad coverage given history of MRSA - Febrile with T-max = 38.2 on admission, now improved - Lactic acid = 2.2 on admission, Procalcitonin 0.87-follow lactate - CXR reviewed, CTA reviewed and neg for PE, emphysema-possible underlying infectious etiology however patient is without respiratory symptoms other than initial oxygen requirement which is now improved - Given 1.5 L NSS total, continue NSS @ 80ml/hr x 1L. Monitor leg edema. (2) Weakness: Full strength and examination Most likely secondary to febrile illness No evidence of focal neurological deficit or cauda equina syndrome (3) Pneumonia: -Possible with history of COPD, bronchitis - ruling out other sources of infection as well -Check MRSA swab, hx of such on cultures Check sputum culture, follow blood cultures Antibiotics as above with cefepime and vancomycin Hold home doxycycline (4) Hypoxia: With acute respiratory failure with hypoxia secondary to COPD exacerbation and pneumonia Supplemental O2, bronchodilators and steroids as below (5) COPD exacerbation: - Started IV solumedrol, give 60 mg IV now and continue with BID dosing - Cont Trelegy ellipta - Sputum culture - Supportive therapy as above (6) Diastolic CHF: - Chronic - Hx of BLE edema and has been on Lasix 40 mg p.o. daily for this, last taken yesterday. He has significant 2+ leg edema on exam however with sepsis presentation we will continue volume resuscitation as above Hold home Lasix (7) Hypertension: -History of such, with low blood pressures here secondary to sepsis -Hold home verapamil 180 mg at bedtime, holding lasix (8) Hypoalbuminemia: -History of such, consider nutrition consult, 2.9 on admission - initiate boost (9) Osteoporosis, unspecified: - hx of such, cont Vit D and calcium supplements (10) Spinal stenosis: - Hx of such - no pain, able to perform straight leg raise without pain or difficulty. (11) BPH (benign prostatic hyperplasia): - Follow UA and Ucx (12) DVT prophylaxis: - teds, scds, heparin subq CODE: Full Dispo: From home, likely to remain in the hospital x 2 days History of Present Illness Chief Complaint: Lower extremity weakness Primary Care Provider: Tyler Hawkins MD This is an 85-year-old male with PMHx of COPD, emphysema, bronchitis, PRISCILA, on supplemental oxygen at bedtime, HTN, lower extremity swelling, osteoporosis, BPH, spinal stenosis, hypothyroidism, obesity, GERD who presents to the ER with acute onset of weakness. Patient was at home in his normal state of health earlier this morning when he suddenly developed leg weakness bilaterally this afternoon. Pt was attempting to go to the bathroom and nearly collapsed because he was so weak. He denies lightheadedness, dizziness, or LOC. He notes that his former PCP had given him a routine prescription to take doxycycline 100 mg twice daily once a month years ago, for recurrent bronchitis, and that he recently completed his monthly regimen of this 1 week ago. He admits to a bout of shortness of breath this afternoon where he felt that he was hyperventilating. He denies any complaints of fever, chills or sweats. He denies any chest pain, chest heaviness, palpitations or flutter. He denies any cough, runny nose, sneezing, or fever, however he was found to be febrile upon arrival in the ER. COVID-19 test was conducted in the ER and is negative. He denies any known sick contacts. He denies gastric symptoms and denies urinary incontinence, frequency or burning. Interestingly, he reports weight loss of 20 lbs within the past 3 months. He weighed 229 pounds at the end of February during a visit with his PCP, Dr. Hawkins and weighed himself today and he was 209 pounds. He denies attempting to lose weight on purpose, has a fairly good appetite, and attributes this to increased activity. In the ER, he was febrile, tachycardic, hypotensive borderline, had an elevated lactate and leukocytosis at 20,000. He was also found to be hypoxic and had an elevated d-dimer. His procalcitonin was also mildly elevated. A CT angiogram of the chest showed left greater than right bibasilar groundglass densities, 8 mm lingula pulmonary nodule, and was negative for PE. He was given a nebulizer treatment, cefepime, and IV fluids with improvement. He will be admitted for sepsis most likely secondary to pneumonia. Allergies Allergy/AdvReac Type Severity Reaction Status Date / Time clarithromycin Allergy Intermediate RASH Verified 06/22/20 16:53 Home Medications Home Medications Medication Instructions Recorded Confirmed Type albuterol sulfate 2 puff INHALATION QID PRN 08/02/18 06/22/20 History magnesium 250 mg PO DAILY 08/02/18 06/22/20 History multivitamin 1 tab PO WK 08/02/18 06/22/20 History cholecalciferol (vitamin D3) 25 1,000 units PO DAILY tab 05/30/19 06/22/20 History mcg (1,000 unit) tablet gabapentin 300 mg capsule 300 mg PO TID 05/30/19 06/22/20 History Oxygen Home #1 ea 08/17/19 06/12/20 History ipratropium 0.5 mg-albuterol 3 mg 3 ml INH QID PRN #1080 ml 08/17/19 06/22/20 Rx (2.5 mg base)/3 mL nebulization soln omeprazole magnesium 20 mg 20 mg PO QAM #90 tab 10/05/19 06/22/20 Rx tablet,delayed release potassium chloride 20 mEq 20 meq PO QAM #90 tab 10/05/19 06/22/20 Rx tablet,extended release(part/cryst) doxycycline hyclate 100 mg tablet 100 mg PO BID #60 tab 02/21/20 06/22/20 Rx levothyroxine 150 mcg PO QAM 05/07/20 06/22/20 History ciclopirox 8 % topical solution 1 applic TOPICAL DAILY #6.6 ml 06/12/20 06/22/20 Rx Trelegy Ellipta 1 puffs INH Q24W 06/22/20 06/22/20 History calcium carbonate-vitamin D3 1 tab PO QAM 06/22/20 06/22/20 History [Calcium 500 With D] furosemide 40 mg PO DAILY 06/22/20 06/22/20 History psyllium husk (with sugar) [Fiber 1 tbsp PO DAILY 06/22/20 06/22/20 History (psyllium husk/sugar)] verapamil 180 mg PO HS 06/22/20 06/22/20 History Past Med/Surg History Medical History (Updated 06/22/20 @ 18:13 by Coni Kelly PA-C) BPH (benign prostatic hyperplasia) Chronic obstructive pulmonary disease Diastolic CHF Fluid retention in legs GERD (gastroesophageal reflux disease) History of cellulitis Hypertension Hypothyroidism Left lumbar radiculopathy Lumbar spinal stenosis On home oxygen therapy 02 2LPM AT HS Osteoarthritis Osteoporosis, unspecified Personal history of MRSA (methicillin resistant Staphylococcus aureus) Sleep apnea cpap Spinal stenosis Surgical History History of cardiac cath 12/2019 - [place] - increased edema - no stents/angioplasty History of cholecystectomy History of colonoscopy History of herniorrhaphy left inguinal History of partial knee replacement left History of tonsillectomy History of tooth extraction Hx of surgical procedure LEFT FEMUR FX WITH REPAIR Family History Mother Cerebral atherosclerosis Father Diverticulosis Other No significant family history Denies family history of Ovarian cancer Prostate cancer Myocardial infarction Breast cancer Colorectal cancer Social History Smoking Status: Former smoker packs per day: 1; Cigarettes Per Day: 20; Number of Years Since Quit: 14; Second Hand Exposure: No; Hx Alcohol Use: Yes Alcohol type: beer Hx Substance Use: No Preferred Language: Latvian Communication Ability: Effective Visual Impairment: No Limitations Hearing Ability: Normal Energy Director Required: No Beliefs That Will Affect Care: None marital status: Current Living Situation: Spouse current occupational status: retired Feels Safe at Home: Yes Dental Care, Regularly: No Physical Activity Frequency: 1-2 Times per Week Seatbelt Use: always Sunscreen Use: Yes Assistive Devices: Cane, Denture - Upper, Denture - Lower and Oxygen - Continuous Review of Systems Review of Systems: Constitutional: No fever, sweats or chills Eyes: No diplopia, no worsening or blurred vision ENT: normal hearing, no trouble swallowing Respiratory: As per HPI- no cough, sputum, dyspnea at rest or on exertion Cardiovascular: No chest pain, tightness or palpitations Abdomen: No pain, nausea, vomiting, diarrhea or constipation Musculoskeletal: No joint pain, calf pain, + BLE swelling, takes oral water pill daily Neurologic: + BLE weakness as described in HPI, numbness/tingling, or balance problems Psychiatric: No anxiety or depression Skin: No rash or itch Physical Exam Physical Exam: General: awake, alert, no apparent distress, obese, BMI 32.6 Head: Normocephalic, atraumatic ENT: PERRL, EOMI, no pharyngeal exudate, mucous membranes moist Chest: + Getting nebulizer at beginning of visit, diffuse wheezing throughout lung brown, inspiratory and expiratory, + rales left >right, on room air with O2 sats at 96% Cardiac: + Sinus tachycardic with HR in the 110s, no murmur, no JVD, normal peripheral pulses, good capillary refill Abdominal: NABS x 4 quadrants, soft, nondistended, nontender to palpation, no rebound or guarding Extremities: Normal inspection, 2+ pitting edema BLE, no erythema, calfs nontender to palpation Psych: Normal mood and affect Neuro: AAO x 3, strength intact bilaterally and rated 5/5, able to perform straight leg raise, no motor deficits, speech is clear, no peripheral sensory deficits Results & Data Results & Data ([facility]) Vital Signs (Past 12 Hours) Vital Signs Temp Pulse Resp BP Pulse Ox 06/22/20 17:36 26 H 95 06/22/20 17:30 114 H 19 100/66 95 06/22/20 17:00 113 H 22 117/73 92 06/22/20 16:30 117 H 24 109/63 99 06/22/20 16:21 37.1 C 06/22/20 16:15 117 H 24 99/59 L 99 06/22/20 15:30 129 H 22 112/65 98 06/22/20 15:20 124 H 24 109/64 98 06/22/20 15:14 99 06/22/20 14:50 38.2 C H 117 H 22 130/83 99 Laboratory Results 06/22/20 06/22/20 06/22/20 Range/Units Unknown 17:56 15:52 WBC (4.8-10.8) K/uL RBC (4.7-6.1) M/uL Hgb (14.0-18.0) g/dL Hct (42-52) % MCV (80-100) fL MCH (25-34) pg MCHC (32-36) g/dL RDW Std Deviation (36.4-46.3) fL RDW Coeff of Jordan (11.5-14.5) % Plt Count (130-400) K/uL MPV (7.4-10.4) fL Immature Gran % (Auto) % Neut % (Auto) % Lymph % (Auto) % [place] % (Auto) % Eos % (Auto) % Baso % (Auto) % Neut # (Auto) (1.4-6.5) K/uL Lymph # (Auto) (1.2-3.4) K/uL [place] # (Auto) (0.11-0.59) K/uL Eos # (Auto) (0-0.5) K/uL Baso # (Auto) (0-0.2) K/uL Immature Gran # (Auto) (0.00-0.02) K/uL PT (9.0-12.0) Seconds INR (0.9-1.1) APTT (21.0-31.0) Seconds PTT Ratio D-Dimer (0-500) ug/L FEU VBG pH 7.35 L (7.36-7.41) VBG pCO2 50 (38-50) mmHg VBG pO2 23 mmHg VBG HCO3 27 mmol/L VBG O2 Saturation < 60.0 % VBG Base Excess 0.4 mEq/L Barometric Pressure 734.0 mm/Hg Sodium (136-145) mmol/L Potassium (3.5-5.1) mmol/L Chloride (98-107) mmol/L Carbon Dioxide (21-32) mmol/L Anion Gap (3-11) BUN (7-18) mg/dl Creatinine (0.6-1.4) mg/dl Est Cr Clr Drug Dosing ml/min Est GFR ( Amer) Est GFR (Non-Af Amer) BUN/Creatinine Ratio (10-20) Glucose (70-99) mg/dl Lactate 3.6 H* (0.4-2.0) mmol/L Calcium (8.5-10.1) mg/dl Magnesium (1.8-2.4) mg/dl Total Bilirubin (0.2-1) mg/dl AST (15-37) U/L ALT (12-78) U/L Alkaline Phosphatase (45-117) U/L Troponin I (0-0.045) ng/ml NT-Pro-B Natriuret Pep (0-1800) pg/ml Total Protein (6.4-8.2) gm/dl Albumin (3.4-5.0) gm/dl Globulin (2.5-4.0) gm/dl Albumin/Globulin Ratio (0.9-2) Procalcitonin (0-0.5) ng/ml COVID-19 Eval Order COVID-19 PCR (Negative) Influ A Molecular Assay Negative (Negative) Influ B Molecular Assay Negative (Negative) 06/22/20 06/22/20 06/22/20 Range/Units 15:52 14:42 14:42 WBC (4.8-10.8) K/uL RBC (4.7-6.1) M/uL Hgb (14.0-18.0) g/dL Hct (42-52) % MCV (80-100) fL MCH (25-34) pg MCHC (32-36) g/dL RDW Std Deviation (36.4-46.3) fL RDW Coeff of Jordan (11.5-14.5) % Plt Count (130-400) K/uL MPV (7.4-10.4) fL Immature Gran % (Auto) % Neut % (Auto) % Lymph % (Auto) % [place] % (Auto) % Eos % (Auto) % Baso % (Auto) % Neut # (Auto) (1.4-6.5) K/uL Lymph # (Auto) (1.2-3.4) K/uL [place] # (Auto) (0.11-0.59) K/uL Eos # (Auto) (0-0.5) K/uL Baso # (Auto) (0-0.2) K/uL Immature Gran # (Auto) (0.00-0.02) K/uL PT (9.0-12.0) Seconds INR (0.9-1.1) APTT (21.0-31.0) Seconds PTT Ratio D-Dimer (0-500) ug/L FEU VBG pH (7.36-7.41) VBG pCO2 (38-50) mmHg VBG pO2 mmHg VBG HCO3 mmol/L VBG O2 Saturation % VBG Base Excess mEq/L Barometric Pressure mm/Hg Sodium (136-145) mmol/L Potassium (3.5-5.1) mmol/L Chloride (98-107) mmol/L Carbon Dioxide (21-32) mmol/L Anion Gap (3-11) BUN (7-18) mg/dl Creatinine (0.6-1.4) mg/dl Est Cr Clr Drug Dosing ml/min Est GFR ( Amer) Est GFR (Non-Af Amer) BUN/Creatinine Ratio (10-20) Glucose (70-99) mg/dl Lactate 2.2 H* (0.4-2.0) mmol/L Calcium (8.5-10.1) mg/dl Magnesium (1.8-2.4) mg/dl Total Bilirubin (0.2-1) mg/dl AST (15-37) U/L ALT (12-78) U/L Alkaline Phosphatase (45-117) U/L Troponin I (0-0.045) ng/ml NT-Pro-B Natriuret Pep (0-1800) pg/ml Total Protein (6.4-8.2) gm/dl Albumin (3.4-5.0) gm/dl Globulin (2.5-4.0) gm/dl Albumin/Globulin Ratio (0.9-2) Procalcitonin (0-0.5) ng/ml COVID-19 Eval Order Covid19 Done at [facility] COVID-19 PCR NEGATIVE (Negative) Influ A Molecular Assay (Negative) Influ B Molecular Assay (Negative) 06/22/20 06/22/20 06/22/20 Range/Units 14:42 14:42 14:42 WBC (4.8-10.8) K/uL RBC (4.7-6.1) M/uL Hgb (14.0-18.0) g/dL Hct (42-52) % MCV (80-100) fL MCH (25-34) pg MCHC (32-36) g/dL RDW Std Deviation (36.4-46.3) fL RDW Coeff of Jordan (11.5-14.5) % Plt Count (130-400) K/uL MPV (7.4-10.4) fL Immature Gran % (Auto) % Neut % (Auto) % Lymph % (Auto) % [place] % (Auto) % Eos % (Auto) % Baso % (Auto) % Neut # (Auto) (1.4-6.5) K/uL Lymph # (Auto) (1.2-3.4) K/uL [place] # (Auto) (0.11-0.59) K/uL Eos # (Auto) (0-0.5) K/uL Baso # (Auto) (0-0.2) K/uL Immature Gran # (Auto) (0.00-0.02) K/uL PT 10.4 (9.0-12.0) Seconds INR 1.0 (0.9-1.1) APTT 28.8 (21.0-31.0) Seconds PTT Ratio 1.0 D-Dimer 5690 H* (0-500) ug/L FEU VBG pH (7.36-7.41) VBG pCO2 (38-50) mmHg VBG pO2 mmHg VBG HCO3 mmol/L VBG O2 Saturation % VBG Base Excess mEq/L Barometric Pressure mm/Hg Sodium 140 (136-145) mmol/L Potassium 3.6 (3.5-5.1) mmol/L Chloride 110 H (98-107) mmol/L Carbon Dioxide 25 (21-32) mmol/L Anion Gap 5.0 (3-11) BUN 26 H (7-18) mg/dl Creatinine 1.04 (0.6-1.4) mg/dl Est Cr Clr Drug Dosing 61.6 ml/min Est GFR ( Amer) 76.1 Est GFR (Non-Af Amer) 65.6 BUN/Creatinine Ratio 25.2 H (10-20) Glucose 85 (70-99) mg/dl Lactate (0.4-2.0) mmol/L Calcium 8.8 (8.5-10.1) mg/dl Magnesium 2.0 (1.8-2.4) mg/dl Total Bilirubin 1.2 H (0.2-1) mg/dl AST 18 (15-37) U/L ALT 25 (12-78) U/L Alkaline Phosphatase 61 (45-117) U/L Troponin I < 0.015 (0-0.045) ng/ml NT-Pro-B Natriuret Pep 296 (0-1800) pg/ml Total Protein 6.7 (6.4-8.2) gm/dl Albumin 2.9 L (3.4-5.0) gm/dl Globulin 3.8 (2.5-4.0) gm/dl Albumin/Globulin Ratio 0.8 L (0.9-2) Procalcitonin 0.87 H (0-0.5) ng/ml COVID-19 Eval Order COVID-19 PCR (Negative) Influ A Molecular Assay (Negative) Influ B Molecular Assay (Negative) 06/22/20 Range/Units 14:42 WBC 20.97 H (4.8-10.8) K/uL RBC 5.04 (4.7-6.1) M/uL Hgb 15.6 (14.0-18.0) g/dL Hct 46.2 (42-52) % MCV 91.7 (80-100) fL MCH 31.0 (25-34) pg MCHC 33.8 (32-36) g/dL RDW Std Deviation 45.8 (36.4-46.3) fL RDW Coeff of Jordan 13.7 (11.5-14.5) % Plt Count 154 (130-400) K/uL MPV 11.5 H (7.4-10.4) fL Immature Gran % (Auto) 0.3 % Neut % (Auto) 94.1 % Lymph % (Auto) 3.4 % [place] % (Auto) 2.1 % Eos % (Auto) 0.1 % Baso % (Auto) 0.0 % Neut # (Auto) 19.70 H (1.4-6.5) K/uL Lymph # (Auto) 0.71 L (1.2-3.4) K/uL [place] # (Auto) 0.45 (0.11-0.59) K/uL Eos # (Auto) 0.03 (0-0.5) K/uL Baso # (Auto) 0.01 (0-0.2) K/uL Immature Gran # (Auto) 0.07 H (0.00-0.02) K/uL PT (9.0-12.0) Seconds INR (0.9-1.1) APTT (21.0-31.0) Seconds PTT Ratio D-Dimer (0-500) ug/L FEU VBG pH (7.36-7.41) VBG pCO2 (38-50) mmHg VBG pO2 mmHg VBG HCO3 mmol/L VBG O2 Saturation % VBG Base Excess mEq/L Barometric Pressure mm/Hg Sodium (136-145) mmol/L Potassium (3.5-5.1) mmol/L Chloride (98-107) mmol/L Carbon Dioxide (21-32) mmol/L Anion Gap (3-11) BUN (7-18) mg/dl Creatinine (0.6-1.4) mg/dl Est Cr Clr Drug Dosing ml/min Est GFR ( Amer) Est GFR (Non-Af Amer) BUN/Creatinine Ratio (10-20) Glucose (70-99) mg/dl Lactate (0.4-2.0) mmol/L Calcium (8.5-10.1) mg/dl Magnesium (1.8-2.4) mg/dl Total Bilirubin (0.2-1) mg/dl AST (15-37) U/L ALT (12-78) U/L Alkaline Phosphatase (45-117) U/L Troponin I (0-0.045) ng/ml NT-Pro-B Natriuret Pep (0-1800) pg/ml Total Protein (6.4-8.2) gm/dl Albumin (3.4-5.0) gm/dl Globulin (2.5-4.0) gm/dl Albumin/Globulin Ratio (0.9-2) Procalcitonin (0-0.5) ng/ml COVID-19 Eval Order COVID-19 PCR (Negative) Influ A Molecular Assay (Negative) Influ B Molecular Assay (Negative) Diagnostic Findings CT angio chest PE protocol CT DOSE: 566.40 mGycm HISTORY: 85 years-old Male with PE, tachy, sob, +dimer. Acute tachycardia with shortness of breath and elevated d-dimer level TECHNIQUE: Multiple CTA images of the chest were obtained after the intravenous administration of 115 ml Optiray 320. Coronal and sagittal MIPS were obtained from the axial data set and were submitted for review. All measurements were obtained according to NASCET criteria. A dose lowering technique was utilized adhering to the principles of ALARA. COMPARISON: Chest radiograph of same day, CT abdomen 06/10/2007 FINDINGS: CTA: Mild cardiomegaly. There is no pericardial effusion. Moderate mixed plaque of the thoracic aorta without aneurysm or dissection. Patency of the imaged great vessels. The pulmonary artery is opacified to the level of the segmental branches. The subsegmental branches are not well evaluated the lung bases secondary to contrast bolus timing and respiratory motion. No filling defects identified to suggest thromboembolic disease. CT CHEST: No adenopathy. No pneumothorax or pleural effusion. Moderate emphysema with bronchial wall thickening. Left greater than right bibasilar groundglass densities. Lingula 8 mm subpleural nodule of the lingula, image 142 series 4 is new from prior. Central airways are patent. No acute process of the imaged upper abdomen. Hepatic steatosis. Soft tissues are unremarkable. 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 Degenerative changes of the shoulders and spine. IMPRESSION: 1. Cardiomegaly without evidence of pulmonary thromboembolic disease. 2. Moderate emphysema with bronchitis. 3. Left greater than right bibasilar groundglass densities suggest atelectasis. 4. No adenopathy or pleural effusion. 5. 8 mm subpleural solid nodule of the lingula is new from 2011. Follow-up guidelines provided below. 6. Hepatic steatosis. XR chest 1V portable CLINICAL HISTORY: SEPSIS COMPARISON STUDY: 12/21/2019 FINDINGS: The heart is enlarged. There are chronic reticulonodular opacities. There are increasing opacities the left lung base, likely atelectatic although an infectious/inflammatory process cannot be excluded. There is no overt failure . There is no lobar consolidation IMPRESSION: 1. Cardiomegaly 2. Chronic reticulonodular opacities 3. Increasing left basilar opacities likely atelectatic although a superimposed infectious/inflammatory process cannot be excluded ECG Additional Comments: ECG on 06/22/2020 at 1439 with sinus tachycardia with PACs and PVCs left axis deviation, anterior infarct, age undetermined Code Status & VTE Plan Code Status Full code-discussed with the patient at bedside VTE Prophylaxis Plan VTE Prophylaxis will be ordered: Yes Supervising Physician Co-Signing Physician Notes PA Supervision Note: I personally saw and examined the patient. I verified all huerta points and agree with ODALIS Kelly with the following exceptions and/or additions: This patient is an 85-year-old male with a history of COPD, GERD, spinal stenosis, here with lower extremity weakness and shortness of breath. Found to be hypoxic, septic with likely pneumonia. Also with lactic acidosis. He denies any acute lower back pain, no bowel or bladder symptoms. No numbness or tingling in the legs. He feels generally weak like he cannot stand up, however he is easily able to move his extremities during strength testing and has pretty good strength throughout. He reports cough with sputum production which is not much different from before. No urinary symptoms. History and ROS reviewed as above Vitals reviewed Gen: AAOx3, NAD HEENT: Anicteric sclerae, EOMI, oropharynx clear CV: Regular rhythm, mildly tachycardic, no mgr nl S1S2 Pulm: With positive crackles and rhonchi at the left lower lung field, otherwise a few expiratory wheezes in the upper airways Abd: +BS soft NT ND no masses or hernias, with large incisional right upper quadrant surgical scar as well as right sided periumbilical vertical incisional scar Ext: 2+ pitting edema legs to the knees bilaterally Skin: No rashes, warm/dry Neuro: Full strength throughout lower extremities, sensation intact light touch throughout Laboratory values reviewed Imaging reviewed ECG reviewed 85-year-old male with history as above, here with sepsis likely pneumonia with acute respiratory failure with hypoxia. IV fluids for volume resuscitation and hold home antihypertensives -Broad-spectrum antibiotics with cefepime and vancomycin given history of MRSA and chronic lung disease Follow sputum cultures, blood cultures Awaiting UA with urine culture as needed Pulmonary toilet as above PG Care Time/CCT Total # of Minutes Spent Total Time Spent with Patient: Total time spent is greater than 50% in coordination of care (as documented) at patient's floor/unit and/or counseling patient: Coding Level of Care Code 18529 Initial Inpt Care Lvl 3 Diagnoses Sepsis A41.9 Sepsis acute organ dysfunction status: unspecified Sepsis type: sepsis due to unspecified organism Weakness R53.1 Pneumonia J18.9 Laterality: bilateral Lung location: lower lobe of lung Pneumonia type: due to unspecified organism Hypoxia R09.02 COPD exacerbation J44.1 Diastolic CHF I50.30 Hypertension I10 Hypoalbuminemia E88.09 Osteoporosis, unspecified M81.0 Spinal stenosis M48.00 BPH (benign prostatic hyperplasia) N40.0 DVT prophylaxis Z29.9 (1) Sepsis Sepsis acute organ dysfunction status: unspecified Sepsis type: sepsis due to unspecified organism Qualified Code(s): A41.9 - Sepsis, unspecified organism (2) Pneumonia Laterality: bilateral Lung location: lower lobe of lung Pneumonia type: due to unspecified organism Qualified Code(s): J18.9 - Pneumonia, unspecified organism
[2020-06-22] MEDS ORDERED: methylPREDNISolone 125 MG/2 ML VIAL IV STA (18:01)
[2020-06-22] MEDS ORDERED: SODIUM CHLORIDE 0.9% 1000ML 1,000 ML IV SCH (18:30)
[2020-06-22] MEDS ORDERED: ALBUT/IPRATROP 3MG/0.5MG NEB 3 ML VIAL INH PRN (20:14)
[2020-06-22] MEDS ORDERED: VANCOMYCIN CONSULT ACTIVE PRN (20:14)
[2020-06-22] MEDS ORDERED: ALBUTEROL HFA 8 GM INHALER INH PRN (20:14)
[2020-06-22] MEDS ORDERED: NON-FORMULARY MEDICATION (Doxycycline Hyclate 100 MG) PO SCH ×2 (20:14→21:00)
[2020-06-22] MEDS ORDERED: NON-FORMULARY MEDICATION (Fluticasone-Umeclidin-Vilanter [Trelegy Ellipta] 1 PUFFS) INH SCH (20:14)
[2020-06-22] MEDS ORDERED: ACETAMINOPHEN 325 MG TAB PO PRN (20:14)
[2020-06-22] MEDS ORDERED: ONDANSETRON INJ 2 MG/ML 2 ML VIAL IV PRN (20:14)
[2020-06-22] MEDS ORDERED: VERAPAMIL HCL 180 MG TABCR PO SCH (21:00)
[2020-06-22] MEDS ORDERED: DOXYCYCLINE HYCLATE 100 MG CAP PO SCH (21:00)
[2020-06-22] MEDS ORDERED: VANCOMYCIN HCL 2,000 MG in SODIUM CHLORIDE 0.9% 500 ML IV ONE (21:30)
[2020-06-22] MEDS: LEVALBUTEROL HCL 1.25 MG/3 ML NEB NEB SCH (22:15)
[2020-06-22] MEDS: guaiFENesin 600 MG TABCR PO SCH (22:24)
[2020-06-22] MEDS: GABAPENTIN 300 MG CAP PO SCH (22:25)
[2020-06-22] MEDS: HEPARIN SOD 5,000 UNIT/0.5 ML VIAL SQ SCH (22:26)
[2020-06-22 22:51] LABS: Appearance Urine Clear (Clear); Bilirubin Urine Negative (Negative); Blood Urine Negative (Negative); Color Urine Yellow; Glucose Urine UA Negative (Negative); Ketones Urine Negative (Negative); Leukocyte Esterase Urine Negative (Negative); Nitrite Urine Negative (Negative); Protein Urine Negative (Negative); Specific Gravity Urine > 1.045 (1.000-1.030); Urobilinogen Urine Negative (Negative); pH Urine 6.5 (4.5-7.5)
[2020-06-23] MEDS: LEVALBUTEROL HCL 1.25 MG/3 ML NEB NEB SCH ×4 (01:19→19:17)
[2020-06-23] MEDS: CEFEPIME 2,000 MG in SYRINGE 0 ML IV SCH ×2 (04:17→16:02)
[2020-06-23] MEDS: methylPREDNISolone 60 MG in SYRINGE 0 ML IV SCH ×2 (05:23→17:38)
[2020-06-23] MEDS: HEPARIN SOD 5,000 UNIT/0.5 ML VIAL SQ SCH ×3 (05:23→21:03)
[2020-06-23] MEDS: LEVOTHYROXINE SODIUM 150 MCG TABLET PO SCH (05:23)
[2020-06-23] MEDS ORDERED: methylPREDNISolone 40 MG in SYRINGE 0 ML IV SCH (06:00)
[2020-06-23 06:09] LABS: Hematocrit (blood only) 40.6 % (42-52); Hemoglobin 13.4 g/dL (14.0-18.0); Mean Corpuscular Hemoglobin 30.7 pg (25-34); Mean Corpuscular Volume 92.9 fL (80-100); Mean Platelet Volume 11.6 fL (7.4-10.4); Platelet Count 152 K/uL (130-400); RDW Coefficient of Variation 13.9 % (11.5-14.5); RDW Standard Deviation 47.4 fL (36.4-46.3); Red Blood Count 4.37 M/uL (4.7-6.1); White Blood Count 29.09 K/uL (4.8-10.8)
[2020-06-23 06:52] LABS: Albumin Globulin Ratio 0.6 (0.9-2); Albumin Level 2.1 gm/dl (3.4-5.0); BUN Creatinine Ratio 20.7 (10-20); Bilirubin,Total 1.1 mg/dl (0.2-1); Calcium 7.4 mg/dl (8.5-10.1); Creatinine Clr Calc Pharmacy 57.3 ml/min; Est GFR (African American) 71.1; Est GFR (Non-African American) 61.3; Globulin 3.4 gm/dl (2.5-4.0); Potassium 4.4 mmol/L (3.5-5.1); Total Protein 5.5 gm/dl (6.4-8.2)
[2020-06-23] MEDS: guaiFENesin 600 MG TABCR PO SCH ×2 (07:52→21:02)
[2020-06-23] MEDS: CHOLECALCIFEROL 1,000 UNITS 25 MCG TAB PO SCH (07:52)
[2020-06-23] MEDS: PANTOprazole 40 MG TAB PO SCH (07:52)
[2020-06-23] MEDS: FLUTICASONE FUROATE 100MCG 14 PUFFS/INHALER INH SCH (07:52)
[2020-06-23] MEDS: UMECLIDINIUM/VILANTEROL 62.5/25MCG 7 PUFFS/INHALER INH SCH (07:52)
[2020-06-23] MEDS: PSYLLIUM 58.6% POWDER PACKET PO SCH (07:53)
[2020-06-23] MEDS: MULTIVITAMIN TAB PO SCH (07:53)
[2020-06-23] MEDS: CALCIUM 600MG + VIT D 400 IU TAB PO SCH (07:53)
[2020-06-23] MEDS: MAGNESIUM OXIDE 400 MG TAB PO SCH (07:53)
[2020-06-23] MEDS: GABAPENTIN 300 MG CAP PO SCH ×3 (07:53→21:04)
[2020-06-23] MEDS ORDERED: POTASSIUM CHLORIDE 20 MEQ TABCR PO SCH (09:00)
--- NOTE | 2020-06-23 11:23 | Pharmacy Report ---
Pharmacy Abx Initial Consult - Date of Service June 23, 2020 - Pharmacy Dosing Scope Date of Consult: 06/22 Consultation requested by: Chayito Kelly Pharmacy is consulted to initiate vancomyinc/cefepime IV/PO dosing therapy, order appropriate labs and adjust drug dose/frequency. - Subjective The patient is a 85 year old M admitted on 06/22/20 17:35. - Objective Height: 5 ft 8 in Weight: 100 kg Vital Signs (Past 12hrs): Vital Signs Temp Pulse Pulse Resp BP Pulse Ox 06/23/20 07:52 36.6 C 100 H 18 123/79 98 06/23/20 07:30 89 06/23/20 07:12 88 19 93 06/23/20 03:26 36.5 C 98 H 19 102/65 96 06/23/20 01:28 112 H 06/23/20 01:20 95 H 16 95 Lab Results (24hrs): Laboratory Tests (24 Hours) 06/23/20 06/23/20 06/22/20 05:43 05:43 14:42 WBC 29.09 H Neut # (Auto) Creatinine 1.10 Est Cr Clr Drug Dosing 57.3 Procalcitonin 0.87 H 06/22/20 06/22/20 14:42 14:42 WBC 20.97 H Neut # (Auto) 19.70 H Creatinine 1.04 Est Cr Clr Drug Dosing 61.6 Procalcitonin Micro Results: 06/22/20 15:52 Aerobic Blood Culture - Pending Blood Anaerobic Blood Culture - Pending 06/22/20 15:36 Aerobic Blood Culture - Pending Blood Anaerobic Blood Culture - Pending - Assessment & Plan Assessment 85 year old male started empirically on vancomycin/cefepime for possible pneumonia. MRSA swab positive, blood cultures pending. Plan Vancomycin IV * Received vancomycin 2000 mg x 1 last evening as loading dose (~20 mg/kg) * Started on vancomycin 1500 (~15 mg/kg) iv q 18 hrs to achieve estimated trough ~15-20 mcg/ml * Estimated kinetics: t1/2~14 hrs, ke~0.06hr-1, CrCl ~57 ml/min * Plan to obtain trough if continued >48 hrs Pharmacy will continue to follow and will adjust dose/frequency as necessary. Thank you.
--- NOTE | 2020-06-23 12:40 | Hospitalist Progress Note ---
Date of Service June 23, 2020 Assessment & Plan (1) Sepsis: - Admit to med surg with tele - tachycardic, febrile, with leukocytosis, hypoxic requiring increased supplemental O2, lactic acid elevated, pro calcitonin elevated, hypotensive with BP of 99/59 -Most likely source is pna with history of COPD, bronchitis -with rhonchi and crackles left greater than right on examination Chest x-ray with chronic reticulonodular opacities and increasing left basilar opacities likely atelectatic although a superimposed infectious/inflammatory process cannot be excluded. CT angiogram negative for PE and with Left greater than right bibasilar groundglass densities MRSA swab is positive. COVID-19 and influenza swabs are negative. Procalcitonin was mildly elevated at 0.87. Lactate was also elevated Now weaned off oxygen during daytime Leukocytosis worsened by corticosteroid use. Is now afebrile -Collect sputum culture -Follow blood cultures-no growth to date -Continue mucinex, xopenex QID and Q2H prn -Follow CBC -Continue cefepime and vancomycin for now -Received IV fluids for hypotension which is now resolved and fluids have since been discontinued (2) Weakness: Presented with bilateral lower extremity weakness that came on fairly acutely in the setting of a febrile illness Is now much improved Full strength upon examination Most likely secondary to febrile illness No evidence of focal neurological deficit or cauda equina syndrome PT/OT consultations (3) Pneumonia: -Left lower lobe -As above Check sputum culture, follow blood cultures Antibiotics as above with cefepime and vancomycin. He just completed his usual 10 days of doxycycline for the month at home prior to admission-no need to cover further with atypicals (4) Hypoxia: With acute on chronic respiratory failure with hypoxia secondary to COPD exacerbation and pneumonia Normally wears O2 at bedtime but was requiring it during the day when he first came here Now weaned off oxygen Supplemental O2, bronchodilators and steroids as below (5) COPD exacerbation: With diffuse wheezing upon admission Now improved with starting IV solumedrol, will continue with 60 mg IV BID dosing - Cont Trelegy ellipta - Sputum culture - Supportive therapy as above Mucinex Nebulizer (6) Diastolic CHF: - Chronic - Hx of BLE edema and has been on Lasix 40 mg p.o. daily for this, last taken the day prior to admission. He has significant 2+ leg edema on exam however with sepsis presentation was given volume resuscitation as above Continue to hold home Lasix but can likely restart tomorrow (7) Hypertension: -History of such, with low blood pressures here secondary to sepsis which are now improved with volume resuscitation -Continue to hold home verapamil 180 mg at bedtime, holding lasix but may restart tomorrow (8) Hypoalbuminemia: -History of such, albumin 2.9 on admission - initiate boost (9) Osteoporosis, unspecified: - hx of such, cont Vit D and calcium supplements (10) Spinal stenosis: - Hx of such - no pain, able to perform straight leg raise without pain or difficulty. Full strength in lower extremities Continue home gabapentin (11) BPH (benign prostatic hyperplasia): No acute issues Urinalysis without evidence for infection (12) Pulmonary nodule: 8 mm lingular nodule Needs follow-up as an outpatient (13) GERD (gastroesophageal reflux disease): Continue PPI (14) Hypothyroidism: Continue levothyroxine (15) DVT prophylaxis: - teds, scds, heparin subq CODE: Full Dispo: From home, likely to remain in the hospital x 2 days Admission and Anticipated Discharge Date Admission Date: June 22, 2020 Subjective Patient feeling much stronger today. He was able to walk with a walker to the bathroom get washed up and back. He is still coughing up sputum. Is weaned off oxygen and reports he only wears it at nighttime. Denies any chest pains or shortness of breath. No abdominal pains. No nausea vomiting. He is eating lunch when I saw him. Denies any diarrhea. Telemetry with normal sinus rhythm, sinus tachycardia, rates 90s to 100s, PACs Review of Systems Review of Systems: All systems reviewed & are unremarkable except as noted in HPI & below Physical Exam Constitutional: WD/WN, vitals as above Eyes: + anicteric sclerae Neck: trachea midline, no thyromegaly Respiratory: normal respiratory effort Auscultation: + crackles (Bibasilar) and + rhonchi (Left base); no wheezes Cardiovascular: Rate/Rhythm: regular rate and regular rhythm Heart Sounds: no murmur Extremities: + edema (1+ pitting edema in the legs to the knees bilaterally unchanged from previous, with compression stockings in place) Chest (Breasts): Chest: normal inspection of chest Gastrointestinal (Abdomen): normal bowel sounds, soft, nontender, no hepatosplenomegaly Musculoskeletal: Extremities: extremities normal to inspection; no cyanosis and no clubbing Skin: no rashes, warm and dry Neurologic: moves all extremities and awake; no focal motor deficits Psychiatric: A+Ox3, euthymic affect Lymphatic: no lymphedema Results & Data Results & Data ([facility]) Vital Signs (Past 12 Hours) Vital Signs Temp Pulse Pulse Resp BP Pulse Ox 06/23/20 11:32 36.4 C L 105 H 18 127/81 97 06/23/20 07:52 36.6 C 100 H 18 123/79 98 06/23/20 07:30 89 06/23/20 07:12 88 19 93 06/23/20 03:26 36.5 C 98 H 19 102/65 96 06/23/20 01:28 112 H 06/23/20 01:20 95 H 16 95 Laboratory Results 06/23/20 06/23/20 06/22/20 Range/Units 05:43 05:43 Unknown WBC 29.09 H (4.8-10.8) K/uL RBC 4.37 L (4.7-6.1) M/uL Hgb 13.4 L (14.0-18.0) g/dL Hct 40.6 L (42-52) % MCV 92.9 (80-100) fL MCH 30.7 (25-34) pg MCHC 33.0 (32-36) g/dL RDW Std Deviation 47.4 H (36.4-46.3) fL RDW Coeff of [place] 13.9 (11.5-14.5) % Plt Count 152 (130-400) K/uL MPV 11.6 H (7.4-10.4) fL Immature Gran % (Auto) % Neut % (Auto) % Lymph % (Auto) % [place] % (Auto) % Eos % (Auto) % Baso % (Auto) % Neut # (Auto) (1.4-6.5) K/uL Lymph # (Auto) (1.2-3.4) K/uL [place] # (Auto) (0.11-0.59) K/uL Eos # (Auto) (0-0.5) K/uL Baso # (Auto) (0-0.2) K/uL Immature Gran # (Auto) (0.00-0.02) K/uL PT (9.0-12.0) Seconds INR (0.9-1.1) APTT (21.0-31.0) Seconds PTT Ratio D-Dimer (0-500) ug/L FEU VBG pH (7.36-7.41) VBG pCO2 (38-50) mmHg VBG pO2 mmHg VBG HCO3 mmol/L VBG O2 Saturation % VBG Base Excess mEq/L Barometric Pressure mm/Hg Sodium 143 (136-145) mmol/L Potassium 4.4 D (3.5-5.1) mmol/L Chloride 114 H (98-107) mmol/L Carbon Dioxide 22 (21-32) mmol/L Anion Gap 7.0 (3-11) BUN 23 H (7-18) mg/dl Creatinine 1.10 (0.6-1.4) mg/dl Est Cr Clr Drug Dosing 57.3 ml/min Est GFR ( Amer) 71.1 Est GFR (Non-Af Amer) 61.3 BUN/Creatinine Ratio 20.7 H (10-20) Glucose 143 H (70-99) mg/dl Lactate (0.4-2.0) mmol/L Calcium 7.4 L D (8.5-10.1) mg/dl Magnesium (1.8-2.4) mg/dl Total Bilirubin 1.1 H (0.2-1) mg/dl AST 13 L (15-37) U/L ALT 19 (12-78) U/L Alkaline Phosphatase 44 L (45-117) U/L Troponin I (0-0.045) ng/ml NT-Pro-B Natriuret Pep (0-1800) pg/ml Total Protein 5.5 L (6.4-8.2) gm/dl Albumin 2.1 L (3.4-5.0) gm/dl Globulin 3.4 (2.5-4.0) gm/dl Albumin/Globulin Ratio 0.6 L (0.9-2) Procalcitonin (0-0.5) ng/ml Urine Color Yellow Urine Appearance Clear (Clear) Urine pH 6.5 (4.5-7.5) Ur Specific [place] > 1.045 H (1.000-1.030) Urine Protein Negative (Negative) Urine Glucose (UA) Negative (Negative) Urine Ketones Negative (Negative) Urine Blood Negative (Negative) Urine Nitrite Negative (Negative) Urine Bilirubin Negative (Negative) Urine Urobilinogen Negative (Negative) Ur Leukocyte Esterase Negative (Negative) Nasal Screen MRSA (PCR) (Negative) COVID-19 Eval Order COVID-19 PCR (Negative) Influ A Molecular Assay (Negative) Influ B Molecular Assay (Negative) 06/22/20 06/22/20 06/22/20 Range/Units Unknown Unknown 17:56 WBC (4.8-10.8) K/uL RBC (4.7-6.1) M/uL Hgb (14.0-18.0) g/dL Hct (42-52) % MCV (80-100) fL MCH (25-34) pg MCHC (32-36) g/dL RDW Std Deviation (36.4-46.3) fL RDW Coeff of [place] (11.5-14.5) % Plt Count (130-400) K/uL MPV (7.4-10.4) fL Immature Gran % (Auto) % Neut % (Auto) % Lymph % (Auto) % [place] % (Auto) % Eos % (Auto) % Baso % (Auto) % Neut # (Auto) (1.4-6.5) K/uL Lymph # (Auto) (1.2-3.4) K/uL [place] # (Auto) (0.11-0.59) K/uL Eos # (Auto) (0-0.5) K/uL Baso # (Auto) (0-0.2) K/uL Immature Gran # (Auto) (0.00-0.02) K/uL PT (9.0-12.0) Seconds INR (0.9-1.1) APTT (21.0-31.0) Seconds PTT Ratio D-Dimer (0-500) ug/L FEU VBG pH (7.36-7.41) VBG pCO2 (38-50) mmHg VBG pO2 mmHg VBG HCO3 mmol/L VBG O2 Saturation % VBG Base Excess mEq/L Barometric Pressure mm/Hg Sodium (136-145) mmol/L Potassium (3.5-5.1) mmol/L Chloride (98-107) mmol/L Carbon Dioxide (21-32) mmol/L Anion Gap (3-11) BUN (7-18) mg/dl Creatinine (0.6-1.4) mg/dl Est Cr Clr Drug Dosing ml/min Est GFR ( Amer) Est GFR (Non-Af Amer) BUN/Creatinine Ratio (10-20) Glucose (70-99) mg/dl Lactate 3.6 H* (0.4-2.0) mmol/L Calcium (8.5-10.1) mg/dl Magnesium (1.8-2.4) mg/dl Total Bilirubin (0.2-1) mg/dl AST (15-37) U/L ALT (12-78) U/L Alkaline Phosphatase (45-117) U/L Troponin I (0-0.045) ng/ml NT-Pro-B Natriuret Pep (0-1800) pg/ml Total Protein (6.4-8.2) gm/dl Albumin (3.4-5.0) gm/dl Globulin (2.5-4.0) gm/dl Albumin/Globulin Ratio (0.9-2) Procalcitonin (0-0.5) ng/ml Urine Color Urine Appearance (Clear) Urine pH (4.5-7.5) Ur Specific [place] (1.000-1.030) Urine Protein (Negative) Urine Glucose (UA) (Negative) Urine Ketones (Negative) Urine Blood (Negative) Urine Nitrite (Negative) Urine Bilirubin (Negative) Urine Urobilinogen (Negative) Ur Leukocyte Esterase (Negative) Nasal Screen MRSA (PCR) Positive A (Negative) COVID-19 Eval Order COVID-19 PCR (Negative) Influ A Molecular Assay Negative (Negative) Influ B Molecular Assay Negative (Negative) 06/22/20 06/22/20 06/22/20 Range/Units 15:52 15:52 14:42 WBC (4.8-10.8) K/uL RBC (4.7-6.1) M/uL Hgb (14.0-18.0) g/dL Hct (42-52) % MCV (80-100) fL MCH (25-34) pg MCHC (32-36) g/dL RDW Std Deviation (36.4-46.3) fL RDW Coeff of [place] (11.5-14.5) % Plt Count (130-400) K/uL MPV (7.4-10.4) fL Immature Gran % (Auto) % Neut % (Auto) % Lymph % (Auto) % [place] % (Auto) % Eos % (Auto) % Baso % (Auto) % Neut # (Auto) (1.4-6.5) K/uL Lymph # (Auto) (1.2-3.4) K/uL [place] # (Auto) (0.11-0.59) K/uL Eos # (Auto) (0-0.5) K/uL Baso # (Auto) (0-0.2) K/uL Immature Gran # (Auto) (0.00-0.02) K/uL PT (9.0-12.0) Seconds INR (0.9-1.1) APTT (21.0-31.0) Seconds PTT Ratio D-Dimer (0-500) ug/L FEU VBG pH 7.35 L (7.36-7.41) VBG pCO2 50 (38-50) mmHg VBG pO2 23 mmHg VBG HCO3 27 mmol/L VBG O2 Saturation < 60.0 % VBG Base Excess 0.4 mEq/L Barometric Pressure 734.0 mm/Hg Sodium (136-145) mmol/L Potassium (3.5-5.1) mmol/L Chloride (98-107) mmol/L Carbon Dioxide (21-32) mmol/L Anion Gap (3-11) BUN (7-18) mg/dl Creatinine (0.6-1.4) mg/dl Est Cr Clr Drug Dosing ml/min Est GFR ( Amer) Est GFR (Non-Af Amer) BUN/Creatinine Ratio (10-20) Glucose (70-99) mg/dl Lactate 2.2 H* (0.4-2.0) mmol/L Calcium (8.5-10.1) mg/dl Magnesium (1.8-2.4) mg/dl Total Bilirubin (0.2-1) mg/dl AST (15-37) U/L ALT (12-78) U/L Alkaline Phosphatase (45-117) U/L Troponin I (0-0.045) ng/ml NT-Pro-B Natriuret Pep (0-1800) pg/ml Total Protein (6.4-8.2) gm/dl Albumin (3.4-5.0) gm/dl Globulin (2.5-4.0) gm/dl Albumin/Globulin Ratio (0.9-2) Procalcitonin (0-0.5) ng/ml Urine Color Urine Appearance (Clear) Urine pH (4.5-7.5) Ur Specific [place] (1.000-1.030) Urine Protein (Negative) Urine Glucose (UA) (Negative) Urine Ketones (Negative) Urine Blood (Negative) Urine Nitrite (Negative) Urine Bilirubin (Negative) Urine Urobilinogen (Negative) Ur Leukocyte Esterase (Negative) Nasal Screen MRSA (PCR) (Negative) COVID-19 Eval Order COVID-19 PCR NEGATIVE (Negative) Influ A Molecular Assay (Negative) Influ B Molecular Assay (Negative) 06/22/20 06/22/20 06/22/20 Range/Units 14:42 14:42 14:42 WBC (4.8-10.8) K/uL RBC (4.7-6.1) M/uL Hgb (14.0-18.0) g/dL Hct (42-52) % MCV (80-100) fL MCH (25-34) pg MCHC (32-36) g/dL RDW Std Deviation (36.4-46.3) fL RDW Coeff of [place] (11.5-14.5) % Plt Count (130-400) K/uL MPV (7.4-10.4) fL Immature Gran % (Auto) % Neut % (Auto) % Lymph % (Auto) % [place] % (Auto) % Eos % (Auto) % Baso % (Auto) % Neut # (Auto) (1.4-6.5) K/uL Lymph # (Auto) (1.2-3.4) K/uL [place] # (Auto) (0.11-0.59) K/uL Eos # (Auto) (0-0.5) K/uL Baso # (Auto) (0-0.2) K/uL Immature Gran # (Auto) (0.00-0.02) K/uL PT (9.0-12.0) Seconds INR (0.9-1.1) APTT (21.0-31.0) Seconds PTT Ratio D-Dimer (0-500) ug/L FEU VBG pH (7.36-7.41) VBG pCO2 (38-50) mmHg VBG pO2 mmHg VBG HCO3 mmol/L VBG O2 Saturation % VBG Base Excess mEq/L Barometric Pressure mm/Hg Sodium 140 (136-145) mmol/L Potassium 3.6 (3.5-5.1) mmol/L Chloride 110 H (98-107) mmol/L Carbon Dioxide 25 (21-32) mmol/L Anion Gap 5.0 (3-11) BUN 26 H (7-18) mg/dl Creatinine 1.04 (0.6-1.4) mg/dl Est Cr Clr Drug Dosing 61.6 ml/min Est GFR ( Amer) 76.1 Est GFR (Non-Af Amer) 65.6 BUN/Creatinine Ratio 25.2 H (10-20) Glucose 85 (70-99) mg/dl Lactate (0.4-2.0) mmol/L Calcium 8.8 (8.5-10.1) mg/dl Magnesium 2.0 (1.8-2.4) mg/dl Total Bilirubin 1.2 H (0.2-1) mg/dl AST 18 (15-37) U/L ALT 25 (12-78) U/L Alkaline Phosphatase 61 (45-117) U/L Troponin I < 0.015 (0-0.045) ng/ml NT-Pro-B Natriuret Pep 296 (0-1800) pg/ml Total Protein 6.7 (6.4-8.2) gm/dl Albumin 2.9 L (3.4-5.0) gm/dl Globulin 3.8 (2.5-4.0) gm/dl Albumin/Globulin Ratio 0.8 L (0.9-2) Procalcitonin 0.87 H (0-0.5) ng/ml Urine Color Urine Appearance (Clear) Urine pH (4.5-7.5) Ur Specific [place] (1.000-1.030) Urine Protein (Negative) Urine Glucose (UA) (Negative) Urine Ketones (Negative) Urine Blood (Negative) Urine Nitrite (Negative) Urine Bilirubin (Negative) Urine Urobilinogen (Negative) Ur Leukocyte Esterase (Negative) Nasal Screen MRSA (PCR) (Negative) COVID-19 Eval Order Covid19 Done at [facility] COVID-19 PCR (Negative) Influ A Molecular Assay (Negative) Influ B Molecular Assay (Negative) 06/22/20 06/22/20 Range/Units 14:42 14:42 WBC 20.97 H (4.8-10.8) K/uL RBC 5.04 (4.7-6.1) M/uL Hgb 15.6 (14.0-18.0) g/dL Hct 46.2 (42-52) % MCV 91.7 (80-100) fL MCH 31.0 (25-34) pg MCHC 33.8 (32-36) g/dL RDW Std Deviation 45.8 (36.4-46.3) fL RDW Coeff of [place] 13.7 (11.5-14.5) % Plt Count 154 (130-400) K/uL MPV 11.5 H (7.4-10.4) fL Immature Gran % (Auto) 0.3 % Neut % (Auto) 94.1 % Lymph % (Auto) 3.4 % [place] % (Auto) 2.1 % Eos % (Auto) 0.1 % Baso % (Auto) 0.0 % Neut # (Auto) 19.70 H (1.4-6.5) K/uL Lymph # (Auto) 0.71 L (1.2-3.4) K/uL [place] # (Auto) 0.45 (0.11-0.59) K/uL Eos # (Auto) 0.03 (0-0.5) K/uL Baso # (Auto) 0.01 (0-0.2) K/uL Immature Gran # (Auto) 0.07 H (0.00-0.02) K/uL PT 10.4 (9.0-12.0) Seconds INR 1.0 (0.9-1.1) APTT 28.8 (21.0-31.0) Seconds PTT Ratio 1.0 D-Dimer 5690 H* (0-500) ug/L FEU VBG pH (7.36-7.41) VBG pCO2 (38-50) mmHg VBG pO2 mmHg VBG HCO3 mmol/L VBG O2 Saturation % VBG Base Excess mEq/L Barometric Pressure mm/Hg Sodium (136-145) mmol/L Potassium (3.5-5.1) mmol/L Chloride (98-107) mmol/L Carbon Dioxide (21-32) mmol/L Anion Gap (3-11) BUN (7-18) mg/dl Creatinine (0.6-1.4) mg/dl Est Cr Clr Drug Dosing ml/min Est GFR ( Amer) Est GFR (Non-Af Amer) BUN/Creatinine Ratio (10-20) Glucose (70-99) mg/dl Lactate (0.4-2.0) mmol/L Calcium (8.5-10.1) mg/dl Magnesium (1.8-2.4) mg/dl Total Bilirubin (0.2-1) mg/dl AST (15-37) U/L ALT (12-78) U/L Alkaline Phosphatase (45-117) U/L Troponin I (0-0.045) ng/ml NT-Pro-B Natriuret Pep (0-1800) pg/ml Total Protein (6.4-8.2) gm/dl Albumin (3.4-5.0) gm/dl Globulin (2.5-4.0) gm/dl Albumin/Globulin Ratio (0.9-2) Procalcitonin (0-0.5) ng/ml Urine Color Urine Appearance (Clear) Urine pH (4.5-7.5) Ur Specific [place] (1.000-1.030) Urine Protein (Negative) Urine Glucose (UA) (Negative) Urine Ketones (Negative) Urine Blood (Negative) Urine Nitrite (Negative) Urine Bilirubin (Negative) Urine Urobilinogen (Negative) Ur Leukocyte Esterase (Negative) Nasal Screen MRSA (PCR) (Negative) COVID-19 Eval Order COVID-19 PCR (Negative) Influ A Molecular Assay (Negative) Influ B Molecular Assay (Negative) PG Care Time/CCT Total # of Minutes Spent Total Time Spent with Patient: Total time spent is greater than 50% in coordination of care (as documented) at patient's floor/unit and/or counseling patient: Coding Level of Care Code 77140 Subseq Hosp Care Lvl 3 Diagnoses Sepsis A41.9 Sepsis acute organ dysfunction status: unspecified Sepsis type: sepsis due to unspecified organism Weakness R53.1 Pneumonia J18.9 Laterality: bilateral Lung location: lower lobe of lung Pneumonia type: due to unspecified organism Hypoxia R09.02 COPD exacerbation J44.1 Diastolic CHF I50.30 Hypertension I10 Hypoalbuminemia E88.09 Osteoporosis, unspecified M81.0 Spinal stenosis M48.00 BPH (benign prostatic hyperplasia) N40.0 Pulmonary nodule R91.1 GERD (gastroesophageal reflux disease) K21.9 Hypothyroidism E03.9 DVT prophylaxis Z29.9 (1) Sepsis Sepsis acute organ dysfunction status: unspecified Sepsis type: sepsis due to unspecified organism Qualified Code(s): A41.9 - Sepsis, unspecified organism (2) Pneumonia Laterality: bilateral Lung location: lower lobe of lung Pneumonia type: due to unspecified organism Qualified Code(s): J18.9 - Pneumonia, unspecified organism
[2020-06-23] MEDS: VANCOMYCIN HCL 1,500 MG in SODIUM CHLORIDE 0.9% 500 ML IV SCH (16:02)
[2020-06-24] MEDS: LEVALBUTEROL HCL 1.25 MG/3 ML NEB NEB SCH ×3 (00:33→13:15)
[2020-06-24] MEDS: CEFEPIME 2,000 MG in SYRINGE 0 ML IV SCH (04:49)
[2020-06-24] MEDS: LEVOTHYROXINE SODIUM 150 MCG TABLET PO SCH (04:50)
[2020-06-24] MEDS: HEPARIN SOD 5,000 UNIT/0.5 ML VIAL SQ SCH (04:50)
[2020-06-24] MEDS: methylPREDNISolone 60 MG in SYRINGE 0 ML IV SCH (05:20)
[2020-06-24] MEDS: PANTOprazole 40 MG TAB PO SCH (05:21)
[2020-06-24 07:59] LABS: Hematocrit (blood only) 38.9 % (42-52); Hemoglobin 12.9 g/dL (14.0-18.0); Mean Corpuscular Hemoglobin 30.3 pg (25-34); Mean Corpuscular Hgb Conc 33.2 g/dL (32-36); Mean Corpuscular Volume 91.3 fL (80-100); Mean Platelet Volume 11.7 fL (7.4-10.4); Platelet Count 154 K/uL (130-400); RDW Coefficient of Variation 14.2 % (11.5-14.5); RDW Standard Deviation 46.9 fL (36.4-46.3); Red Blood Count 4.26 M/uL (4.7-6.1); White Blood Count 26.17 K/uL (4.8-10.8)
[2020-06-24 08:27] LABS: BUN Creatinine Ratio 21.8 (10-20); Calcium 8.3 mg/dl (8.5-10.1); Creatinine Clr Calc Pharmacy 48.1 ml/min; Est GFR (Non-African American) 49.2
[2020-06-24] MEDS: FLUTICASONE FUROATE 100MCG 14 PUFFS/INHALER INH SCH (08:38)
[2020-06-24] MEDS: CALCIUM 600MG + VIT D 400 IU TAB PO SCH (08:38)
[2020-06-24] MEDS: guaiFENesin 600 MG TABCR PO SCH (08:38)
[2020-06-24] MEDS: UMECLIDINIUM/VILANTEROL 62.5/25MCG 7 PUFFS/INHALER INH SCH (08:38)
[2020-06-24] MEDS: GABAPENTIN 300 MG CAP PO SCH (08:39)
[2020-06-24] MEDS: MAGNESIUM OXIDE 400 MG TAB PO SCH (08:39)
[2020-06-24] MEDS: CHOLECALCIFEROL 1,000 UNITS 25 MCG TAB PO SCH (08:39)
[2020-06-24] MEDS: PSYLLIUM 58.6% POWDER PACKET PO SCH (08:39)
[2020-06-24] MEDS: MULTIVITAMIN TAB PO SCH (08:39)
[2020-06-24] MEDS ORDERED: NON-FORMULARY MEDICATION (Fluticasone-Umeclidin-Vilanter [Trelegy Ellipta] 1 PUFFS) INH SCH (09:00)
[2020-06-24] MEDS: VANCOMYCIN HCL 1,500 MG in SODIUM CHLORIDE 0.9% 500 ML IV SCH (10:49)
--- NOTE | 2020-06-24 12:35 | Discharge Summary ---
Date of Service June 24, 2020 Admission HPI Per Admitting Provider This is an 85-year-old male with PMHx of COPD, emphysema, bronchitis, PRISCILA, on supplemental oxygen at bedtime, HTN, lower extremity swelling, osteoporosis, BPH, spinal stenosis, hypothyroidism, obesity, GERD who presents to the ER with acute onset of weakness. Patient was at home in his normal state of health earlier this morning when he suddenly developed leg weakness bilaterally this afternoon. Pt was attempting to go to the bathroom and nearly collapsed because he was so weak. He denies lightheadedness, dizziness, or LOC. He notes that his former PCP had given him a routine prescription to take doxycycline 100 mg twice daily once a month years ago, for recurrent bronchitis, and that he recently completed his monthly regimen of this 1 week ago. He admits to a bout of shortness of breath this afternoon where he felt that he was hyperventilating. He denies any complaints of fever, chills or sweats. He denies any chest pain, chest heaviness, palpitations or flutter. He denies any cough, runny nose, sneezing, or fever, however he was found to be febrile upon arrival in the ER. COVID-19 test was conducted in the ER and is negative. He denies any known sick contacts. He denies gastric symptoms and denies urinary incontinence, frequency or burning. Interestingly, he reports weight loss of 20 lbs within the past 3 months. He weighed 229 pounds at the end of February during a visit with his PCP, Dr. Hawkins and weighed himself today and he was 209 pounds. He denies attempting to lose weight on purpose, has a fairly good appetite, and attributes this to increased activity. In the ER, he was febrile, tachycardic, hypotensive borderline, had an elevated lactate and leukocytosis at 20,000. He was also found to be hypoxic and had an elevated d-dimer. His procalcitonin was also mildly elevated. A CT angiogram of the chest showed left greater than right bibasilar groundglass densities, 8 mm lingula pulmonary nodule, and was negative for PE. He was given a nebulizer treatment, cefepime, and IV fluids with improvement. He will be admitted for sepsis most likely secondary to pneumonia. Principal Diagnosis Sepsis, pneumonia, lower extremity weakness Discharge Exam Constitutional WD/WN, vitals as above Eyes + anicteric sclerae Neck trachea midline, no thyromegaly Respiratory normal respiratory effort Auscultation: + crackles (Bibasilar, mild and improved from previous) and + wheezes (Mild bilateral wheezes in the middle lung brown); no rhonchi Cardiovascular Rate/Rhythm: regular rate and regular rhythm Heart Sounds: no murmur Extremities: + edema (Trace pitting edema in the legs to the knees bilaterally improved from previous, with compression stockings in place) Chest (Breasts) Chest: normal inspection of chest Gastrointestinal (Abdomen) normal bowel sounds, soft, nontender, no hepatosplenomegaly Musculoskeletal Extremities: extremities normal to inspection; no cyanosis and no clubbing Skin no rashes, warm and dry Neurologic moves all extremities and awake; no focal motor deficits Psychiatric A+Ox3, euthymic affect Lymphatic no lymphedema Discharge Data Allergies Allergy/AdvReac Type Severity Reaction Status Date / Time clarithromycin Allergy Intermediate RASH Verified 06/22/20 16:53 Consultations 06/22/20 17:20 ED Decision to Admit Stat 06/22/20 20:14 Consult Case Management - Discharge Planning Routine Ordered Studies 06/22/20 16:21 CT angio chest PE protocol Stat Chest x-ray Hospital Course (1) Sepsis: -Patient presented with generalized weakness especially in the lower extremities and was found to be tachycardic, febrile, with leukocytosis, hypoxic requiring increased supplemental O2, lactic acid elevated, pro calcitonin elevated, hypotensive with BP of 99/59 on admission -Most likely source is pna with history of COPD, bronchitis -with rhonchi and crackles left greater than right on examination Chest x-ray with chronic reticulonodular opacities and increasing left basilar opacities likely atelectatic although a superimposed infectious/inflammatory process cannot be excluded. CT angiogram negative for PE and with Left greater than right bibasilar groundglass densities MRSA swab is positive. COVID-19 and influenza swabs are negative. Procalcitonin was mildly elevated at 0.87. Lactate was also elevated Now weaned off oxygen during daytime and doing much better Lung exam is improved, generalized weakness is significantly improved Remains afebrile blood cultures are without growth at the 48-hour hdarmesh prior to discharge Leukocytosis worsened by corticosteroid use Sputum culture was contaminated with saliva and was not recollected Hypotension improved with IV fluid resuscitation -Follow blood cultures after discharge-no growth to date -Continue mucinex, bronchodilators and usual home inhalers at home Received cefepime and vancomycin but will discharged home on 5 more days of renally dosed levofloxacin and 5 more days of doxycycline to cover for MRSA Stable for discharge to home (2) Weakness: Presented with bilateral lower extremity weakness that came on fairly acutely in the setting of a febrile illness Is now much improved and he is walking independently. PT/OT saw him and recommends returning home Full strength upon examination Most likely secondary to febrile illness No evidence of focal neurological deficit or cauda equina syndrome He declines having home health services (3) Pneumonia: -Left lower lobe -As above Check sputum culture, follow blood cultures Antibiotics as above Should follow chest x-ray to resolution as an outpatient (4) Hypoxia: With acute on chronic respiratory failure with hypoxia secondary to COPD exacerbation and pneumonia Normally wears O2 at bedtime but was requiring it during the day when he first came here Now weaned off oxygen during the daytime Supplemental O2, bronchodilators and steroids as below (5) COPD exacerbation: With diffuse wheezing upon admission which is now improved but still continues and he reports chronic daily wheezing Received IV Solu-Medrol will send home with prednisone burst of 40 mg once daily for 3 more days - Cont Trelegy ellipta -Continue Mucinex Has flutter valve Nebulizer at home (6) Diastolic CHF: - Chronic - Hx of BLE edema and has been on Lasix 40 mg p.o. daily for this, last taken the day prior to admission. Restart home Lasix which was held on admission for hypotension (7) Hypertension: -History of such, with low blood pressures here secondary to sepsis which are now improved with volume resuscitation -His home verapamil 180 mg at bedtime was held for hypotension and can be restarted upon discharge-holding this may have contributed to a mild sinus tachycardia Continue home Lasix upon discharge (8) Hypoalbuminemia: -History of such, albumin 2.9 on admission - initiate boost (9) Osteoporosis, unspecified: - hx of such, cont Vit D and calcium supplements (10) Spinal stenosis: - Hx of such - no pain, able to perform straight leg raise without pain or difficulty. Full strength in lower extremities Continue home gabapentin (11) BPH (benign prostatic hyperplasia): No acute issues Urinalysis without evidence for infection (12) Pulmonary nodule: 8 mm lingular nodule Needs follow-up as an outpatient Will refer to lung nodule clinic (13) GERD (gastroesophageal reflux disease): Continue PPI (14) Hypothyroidism: Continue levothyroxine (15) DVT prophylaxis: - teds, scds, heparin subq CODE: Full Dispo: Stable for discharge to home. He declines having home health services initiated as he feels he does not need it. Total Time Total Time Spent Total Time Spent (In Minutes): 35 minutes Total Time Includes: Examination of the Patient, Discharge Planning and Medication Reconciliation Discharge Plan Discharge Items Patient Disposition: Home - Self-Care Reason For Visit: PNEUMONIA Discharge Diagnosis: Pneumonia, sepsis, lower extremity weakness Condition on Discharge: Good Activity: As commented below Lifting: Gradually increase as tolerated Bathing: No limitations Exercise/Sports: Gradually increase as tolerated Weightbearing: Full weightbearing Non-emergency contact: Primary Care Provider Call non-emergency contact if: you have any medication questions, your symptoms worsen, you have a fever and your temperature is above 101 Follow-up/Referrals: Pro,Tyler Gomez MD [Primary Care Provider] - (Please follow-up within 1-2 weeks) Diet: Heart Healthy Addtl Attending Provider Instructions: You were admitted with pneumonia and sepsis. This was the cause of the weakness and near legs as you had a fever. Your fevers have resolved and you are not growing any bacteria so far in your bloodstream. Your pneumonia is improving. You will be discharged home with 2 antibiotics: 1 is called levofloxacin 750 mg by mouth every other day with the first dose being on the morning of 06/1220 and the last dose being on the morning of 06/29/2020. The other one is doxycycline 100 mg please take this twice daily for 5 more days and then return to your usual once a month cycle of 10 days. Please also finish out a course of prednisone for 3 more days. Please follow-up with your primary care physician within 1 to 2 weeks after discharge. Pending Studies at Discharge: Yes (Final blood culture results-no growth to date) Stand-Alone Forms: [facility] Medications and DC Order Prescriptions: New guaifenesin [Mucinex] 600 mg Tablet Extended Release 12hr 1,200 mg PO Q12 7 Days Qty: 28 RF: 0 prednisone 20 mg tablet 40 mg PO DAILY 3 Days Qty: 6 RF: 0 doxycycline hyclate 100 mg tablet 100 mg PO BID 5 Days Qty: 10 RF: 0 levofloxacin 750 mg tablet 750 mg PO Q48H Qty: 3 RF: 0 Continued gabapentin 300 mg capsule 300 mg PO TID RF: 0 ciclopirox 8 % solution 1 applic topical DAILY Qty: 6.6 RF: 2 (DME) Oxygen Home Liters Per Minute See Rx Instructions .ROUTE .MEDSUPPLY Qty: 1 RF: 0 ipratropium-albuterol 0.5 mg-3 mg(2.5 mg base)/3 mL solution for nebulization 3 ml INH QID PRN (Reason: shortness of breath) Qty: 1080 RF: 3 Prilosec OTC 20 mg tablet,delayed release (DR/EC) 20 mg PO QAM Qty: 90 RF: 3 potassium chloride 20 mEq tablet,ER particles/crystals 20 meq PO QAM Qty: 90 RF: 3 levothyroxine 150 mcg tablet 150 mcg PO QAM RF: 0 calcium carbonate-vitamin D3 [Calcium 500 With D] 500 mg(1,250mg) -400 unit Tablet 1 tab PO QAM RF: 0 Fiber (psyllium husk/sugar) 3.4 gram/11 gram Powder 1 tbsp PO DAILY RF: 0 verapamil 180 mg tablet extended release 180 mg PO HS RF: 0 Trelegy Ellipta 100-62.5-25 mcg blister with device 1 puffs INH Q24W RF: 0 furosemide 40 mg tablet 40 mg PO DAILY RF: 0 multivitamin Tablet 1 tab PO WK RF: 0 magnesium 250 mg Tablet 250 mg PO DAILY RF: 0 albuterol sulfate 90 mcg/actuation Hfa Aerosol Inhaler 2 puff INHALATION QID PRN (Reason: Shortness Of Breath Or Wheezing) RF: 0 cholecalciferol (vitamin D3) 1,000 unit (25 mcg) tablet 1,000 units PO DAILY RF: 0 doxycycline hyclate 100 mg tablet 100 mg PO BID Qty: 60 RF: 3 Discharge Orders: Discharge Order (Routine); Ordered 06/24/20 Ordered By: Lien Urban Admission Data Admit Date/Time: 06/22/20 17:35 Attending Provider: Lien Urban Admit Provider: Lien Urban Primary Care Provider: Tyler Hawkins Other Providers: Edmundo Pickett Coding Level of Care Code D/C Day Management >30 mins Diagnoses Sepsis A41.9 Sepsis acute organ dysfunction status: unspecified Sepsis type: sepsis due to unspecified organism Weakness R53.1 Pneumonia J18.9 Laterality: bilateral Lung location: lower lobe of lung Pneumonia type: due to unspecified organism Hypoxia R09.02 COPD exacerbation J44.1 Diastolic CHF I50.30 Hypertension I10 Hypoalbuminemia E88.09 Osteoporosis, unspecified M81.0 Spinal stenosis M48.00 BPH (benign prostatic hyperplasia) N40.0 Pulmonary nodule R91.1 GERD (gastroesophageal reflux disease) K21.9 Hypothyroidism E03.9 DVT prophylaxis Z29.9
[2020-06-25] MEDS ORDERED: VANCOMYCIN TROUGH ONE (03:30)
== END 2020-06-24 14:30 | disposition home or self-care (01) | DRG 871 ==
LOC: ED 14:24 → 2N 17:35

== ENCOUNTER 2020-10-18 22:24 | Inpatient (IN) ==
[2020-10-18] MEDS ORDERED: ACETAMINOPHEN 500 MG TAB PO STA (23:05)
[2020-10-18] MEDS ORDERED: SODIUM CHLORIDE 0.9% 1000ML 1,000 ML IV ONE (23:05)
--- NOTE | 2020-10-18 23:15 | Emergency Department Note ---
Impression & Plan Cellulitis of left leg, Sepsis ED Provider Note Name: NICOLAS YU Age: 85 Sex: M Arrives Via: Walk-In Informant: Patient ED Provider: Taiwo Valle MD Chief Complaint: Left leg pain Impression: Cellulitis of left leg Sepsis Medical Decision Makin yr old male with history of COPD, PRISCILA, CHF, GERD, Hypothyroid, MRSA, Spinal Stenosis, Gout who notes previous episodes of cellulitis left leg but nothing recently. Arrives for evaluation of left leg pain. On exam cellulitis left leg from ankle to mid thich. Edema noted but no compartment syndrome no crepitus at this time. Labs with elevated WBC consistent with infection and in setting of leukocytosis, tachycardia and infection he is septic though not shock. Lactate OK, BP OK thus would not given 30ml/kg IV fluids as with CHF history could cause more harm. Was given some IV fluids with improvement of HR. Broad spectrum abx given as well after cultures obtained. US left leg negative for DVT. Hospitalist in to evaluate further. Prior Medical Record and Triage/Nursing Notes reviewed by Me Additional history obtained from chart Differentials:Cellulitis, sepsis, lymphedema, DVT, Compartment, Nec fasc, chf, amongst others Vital Signs: reviewed and remarkable for tachycarida Interventions: IV lock , nss bolus, vanco iv, cefepime IV, tylenol po Labs:Reviewed and remarkable for WBC 19, lactate & procal Imaging:X ray results are stated below per my interpretation: Chest: 1 view: No infiltrate, no effusion, large cardiac border, US doppler left leg: per stat rad no DVT. Edema noted EKG:Per My Interpretation: Indication Sepsis: Sinus Tach 109 bpm, qtc 460. PAC noted. No Ischemia. Compared to EKG 06/22/20, no significant changes. Cardiac/Tele Monitoring: Cardiac Monitoring: An Order was placed for continuous cardiac monitoring. The monitor shows a rate of 120 with a sinus tach rhythm. Consults:Dr Dequan ZAMORA Hospitalist Plan: Disposition:Hospitalization. Condition: Fair History of Present Illness:85 yr old male arrives for evaluation of left leg pain. Patient notes increasing left calf pain this evening. When he looked at it he realized there was redness spreading to his inner thigh. Notes pain gradually worsening throughout the evening. It improved with laying back, worse with sitting up. No inciting evening. Recalls no injury. No medications prior to arrival. Denies fevers, chills, nausea, vomiting, cp, sob, syncope, diaphoresis, headache, abdominal pain, back pain, urinary/bowel issues, nor other symptoms. No history of DVT. Usually wears compressions socks due to CHF history. Admits history of cellulitis on legs, but has never been hospitalized and can not recall last time he was on any antibiotics. ROS: See above HPI for pertinent positives & negatives. A total of 10 systems reviewed and were otherwise negative. Past Medical History:COPD, PRISCILA, CHF, GERD, Hypothyroid, MRSA, Spinal Stenosis, Gout Past Surgical History:Lumbar surgeryamongst others, see below Family History:Mother CVA, Father Diverticulitis Social History:Retired, former smoker, no drugs, no alcohol. Home Medications:See Below Allergies:Clarithromycin Vitals:Blood Pressure: 165/96, Pulse 122, RR 20, T 37.0C, O2 90% on RA Physical Exam: GENERAL: Patient is uncomfortable appearing and in mild distress. EYES: No scleral icterus, unremarkable pupils. ENT: Mucous membranes moist, no nasal congestion. NECK: No masses appreciated, nomeningismus, trachea is midline. RESPIRATORY: No dyspnea. Clear to auscultation and equal bilaterally. No wheeze, no rhonchi. CARDIOVASCULAR: Tachy.No murmurs, rubs, gallops appreciated. GASTROINTESTINAL: Abdomen soft, non-tender, no peritonitis.Bowel sounds positive.No masses appreciated. BACK: Mild edema low back. No midline tenderness, no CVA tenderness EXTREMITIES: Mild edema right leg, moderate edema left leg. Cellulitis like red rash from ankle to inner mid thigh left leg. Mild left calf TTP. No crepitus. Normal motion all extremities, no cyanosis NEUROLOGIC: Alert and oriented, no acute motor or sensory deficits, no focal weakness, cranial nerves grossly intact. SKIN: No rash, no jaundice, no diaphoresis. PSYCH: Appropriate GCS: 15 ED Course: Times/Reassessments: improving heart rate, mild spread of cellulitis noted, no crepitus nor compartment syndrome on exam Taiwo Valle MD Past Med/Surg History Medical History (Updated 10/19/20 @ 05:23 by Taiwo Valle MD) BPH (benign prostatic hyperplasia) Chronic obstructive pulmonary disease Diastolic CHF Fluid retention in legs GERD (gastroesophageal reflux disease) History of cellulitis Hypertension Hypothyroidism Hypothyroidism (acquired) Left lumbar radiculopathy Lumbar spinal stenosis On home oxygen therapy 02 2LPM AT HS Osteoarthritis Osteoporosis, unspecified Personal history of MRSA (methicillin resistant Staphylococcus aureus) Pulmonary nodule Sleep apnea cpap Spinal stenosis Surgical History History of cardiac cath 12/2019 - [place] - increased edema - no stents/angioplasty History of cholecystectomy History of colonoscopy History of herniorrhaphy left inguinal History of partial knee replacement left History of tonsillectomy History of tooth extraction Hx of surgical procedure LEFT FEMUR FX WITH REPAIR Family History Mother Cerebral atherosclerosis Father Diverticulosis Other No significant family history Denies family history of Ovarian cancer Prostate cancer Myocardial infarction Breast cancer Colorectal cancer Social History Smoking Status: Former smoker packs per day: 1; Years Smoked: 40; Cigarettes Per Day: 20; Number of Years Since Quit: 14; Second Hand Exposure: No; Hx Alcohol Use: Yes Alcohol type: beer Hx Substance Use: No Preferred Language: Monegasque Communication Ability: Effective Visual Impairment: No Limitations Hearing Ability: Normal Continuing Education Director Required: No Beliefs That Will Affect Care: None marital status: Current Living Situation: Spouse current occupational status: retired Feels Safe at Home: Yes Dental Care, Regularly: No Physical Activity Frequency: 1-2 Times per Week Seatbelt Use: always Sunscreen Use: Yes Assistive Devices: Cane, CPAP, Denture - Upper, Denture - Lower and Glasses Allergies Allergies Allergy/AdvReac Type Severity Reaction Status Date / Time clarithromycin Allergy Intermediate RASH Verified 10/18/20 23:49 Home Meds Home Medications Medication Instructions Recorded Confirmed albuterol sulfate 2 puff INHALATION QID PRN 08/02/18 10/18/20 magnesium 250 mg PO DAILY 08/02/18 10/18/20 cholecalciferol (vitamin D3) 25 1,000 units PO DAILY tab 05/30/19 10/18/20 mcg (1,000 unit) tablet Oxygen Home #1 ea 08/17/19 10/05/20 levothyroxine 150 mcg PO QAM 05/07/20 10/18/20 Fiber (psyllium husk/sugar) 1 tbsp PO DAILY 06/22/20 10/18/20 Trelegy Ellipta 1 puffs INH DAILY 06/22/20 10/18/20 calcium carbonate-vitamin D3 1 tab PO QAM 06/22/20 10/18/20 [Calcium 500 With D] furosemide 40 mg PO DAILY 06/22/20 10/18/20 verapamil 180 mg PO HS 06/22/20 10/18/20 multivitamin 1 tab PO DAILY tab 09/04/20 10/18/20 Previous Rx's Medication Instructions Recorded ipratropium 0.5 mg-albuterol 3 mg 3 ml INH QID PRN #1080 ml 08/17/19 (2.5 mg base)/3 mL nebulization soln omeprazole magnesium 20 mg 20 mg PO QAM #90 tab 10/05/19 tablet,delayed release potassium chloride 20 mEq 20 meq PO QAM #90 tab 10/05/19 tablet,extended release(part/cryst) ciclopirox 8 % topical solution 1 applic TOPICAL DAILY #6.6 ml 06/12/20 doxycycline hyclate 100 mg PO BID #60 tab 06/24/20 Results & Data (ED) Vital Signs Vital Signs - 24 hr 10/18/20 22:28 10/18/20 23:47 10/19/20 00:00 Temperature 37.0 C Temperature Source Temporal Artery Scan Pulse Rate 122 H 90 99 H Pulse Rate from SpO2 Sensor 99 H 100 H Respiratory Rate 20 21 21 Respiratory Depth Normal Blood Pressure 165/96 H 140/81 150/88 H Blood Pressure Mean 119 100 108 Pulse Oximetry 90 93 92 Oxygen Delivery Method Room Air Sepsis Recent Fever Within 48 Hours No Sepsis New/Unexplained Change in Mental Status N/A Sepsis Action Taken by Nursing No Action Required 10/19/20 00:50 10/19/20 01:00 Temperature Temperature Source Pulse Rate 96 H Pulse Rate from SpO2 Sensor 96 H 101 H Respiratory Rate 23 25 H Respiratory Depth Blood Pressure 147/88 H 158/97 H Blood Pressure Mean 107 117 Pulse Oximetry 93 90 Oxygen Delivery Method Sepsis Recent Fever Within 48 Hours Sepsis New/Unexplained Change in Mental Status Sepsis Action Taken by Nursing Laboratory Data Result diagrams: 10/18/20 23:24 10/18/20 23:24 Lab Results 02/04/21 02/04/21 02/04/21 Range/Units 23:24 23:24 23:24 WBC (4.8-10.8) K/uL RBC (4.7-6.1) M/uL Hgb (14.0-18.0) g/dL Hct (42-52) % MCV (80-100) fL MCH (25-34) pg MCHC (32-36) g/dL RDW Std Deviation (36.4-46.3) fL RDW Coeff of [place] (11.5-14.5) % Plt Count (130-400) K/uL MPV (7.4-10.4) fL Immature Gran % (Auto) % Neut % (Auto) % Lymph % (Auto) % [place] % (Auto) % Eos % (Auto) % Baso % (Auto) % Neut # (Auto) (1.4-6.5) K/uL Lymph # (Auto) (1.2-3.4) K/uL [place] # (Auto) (0.11-0.59) K/uL Eos # (Auto) (0-0.5) K/uL Baso # (Auto) (0-0.2) K/uL Immature Gran # (Auto) (0.00-0.02) K/uL PT (9.0-12.0) Seconds INR (0.9-1.1) Sodium 147 H (136-145) mmol/L Potassium 4.1 (3.5-5.1) mmol/L Chloride 115 H (98-107) mmol/L Carbon Dioxide 29 (21-32) mmol/L Anion Gap 3.0 (3-11) BUN 21 H (7-18) mg/dl Creatinine 1.05 (0.6-1.4) mg/dl Est Cr Clr Drug Dosing 60.2 ml/min Est GFR ( Amer) 75.2 Est GFR (Non-Af Amer) 64.9 BUN/Creatinine Ratio 20.1 H (10-20) Glucose 105 H (70-99) mg/dl Lactate 1.7 (0.4-2.0) mmol/L Calcium 8.6 (8.5-10.1) mg/dl Magnesium 2.2 (1.8-2.4) mg/dl Total Bilirubin 0.7 (0.2-1) mg/dl Direct Bilirubin 0.2 (0-0.2) mg/dl AST 13 L (15-37) U/L ALT 21 (12-78) U/L Alkaline Phosphatase 63 (45-117) U/L Troponin I < 0.015 (0-0.045) ng/ml NT-Pro-B Natriuret Pep 228 (0-1800) pg/ml Total Protein 7.5 (6.4-8.2) gm/dl Albumin 3.1 L (3.4-5.0) gm/dl Procalcitonin 0.10 (0-0.5) ng/ml Urine Color Urine Appearance (Clear) Urine pH (4.5-7.5) Ur Specific [place] (1.000-1.030) Urine Protein (Negative) Urine Glucose (UA) (Negative) Urine Ketones (Negative) Urine Blood (Negative) Urine Nitrite (Negative) Urine Bilirubin (Negative) Urine Urobilinogen (Negative) Ur Leukocyte Esterase (Negative) COVID-19 Eval Order SARS-CoV-2, RNA, NAAT (NEGATIVE) 10/18/20 10/18/20 10/18/20 Range/Units 23:24 23:24 23:44 WBC 19.18 H (4.8-10.8) K/uL RBC 4.99 (4.7-6.1) M/uL Hgb 15.2 (14.0-18.0) g/dL Hct 46.3 (42-52) % MCV 92.8 (80-100) fL MCH 30.5 (25-34) pg MCHC 32.8 (32-36) g/dL RDW Std Deviation 49.4 H (36.4-46.3) fL RDW Coeff of [place] 14.7 H (11.5-14.5) % Plt Count 225 (130-400) K/uL MPV 11.7 H (7.4-10.4) fL Immature Gran % (Auto) 0.3 % Neut % (Auto) 87.8 % Lymph % (Auto) 5.7 % [place] % (Auto) 5.8 % Eos % (Auto) 0.3 % Baso % (Auto) 0.1 % Neut # (Auto) 16.83 H (1.4-6.5) K/uL Lymph # (Auto) 1.09 L (1.2-3.4) K/uL [place] # (Auto) 1.12 H (0.11-0.59) K/uL Eos # (Auto) 0.06 (0-0.5) K/uL Baso # (Auto) 0.02 (0-0.2) K/uL Immature Gran # (Auto) 0.06 H (0.00-0.02) K/uL PT 9.8 (9.0-12.0) Seconds INR 1.0 (0.9-1.1) Sodium (136-145) mmol/L Potassium (3.5-5.1) mmol/L Chloride (98-107) mmol/L Carbon Dioxide (21-32) mmol/L Anion Gap (3-11) BUN (7-18) mg/dl Creatinine (0.6-1.4) mg/dl Est Cr Clr Drug Dosing ml/min Est GFR ( Amer) Est GFR (Non-Af Amer) BUN/Creatinine Ratio (10-20) Glucose (70-99) mg/dl Lactate (0.4-2.0) mmol/L Calcium (8.5-10.1) mg/dl Magnesium (1.8-2.4) mg/dl Total Bilirubin (0.2-1) mg/dl Direct Bilirubin (0-0.2) mg/dl AST (15-37) U/L ALT (12-78) U/L Alkaline Phosphatase (45-117) U/L Troponin I (0-0.045) ng/ml NT-Pro-B Natriuret Pep (0-1800) pg/ml Total Protein (6.4-8.2) gm/dl Albumin (3.4-5.0) gm/dl Procalcitonin (0-0.5) ng/ml Urine Color Urine Appearance (Clear) Urine pH (4.5-7.5) Ur Specific [place] (1.000-1.030) Urine Protein (Negative) Urine Glucose (UA) (Negative) Urine Ketones (Negative) Urine Blood (Negative) Urine Nitrite (Negative) Urine Bilirubin (Negative) Urine Urobilinogen (Negative) Ur Leukocyte Esterase (Negative) COVID[facility]19 [facility] SARS-CoV-2, RNA, NAAT (NEGATIVE) 10/18/20 10/18/20 Range/Units 23:44 23:45 WBC (4.8-10.8) K/uL RBC (4.7-6.1) M/uL Hgb (14.0-18.0) g/dL Hct (42-52) % MCV (80-100) fL MCH (25-34) pg MCHC (32-36) g/dL RDW Std Deviation (36.4-46.3) fL RDW Coeff of [place] (11.5-14.5) % Plt Count (130-400) K/uL MPV (7.4-10.4) fL Immature Gran % (Auto) % Neut % (Auto) % Lymph % (Auto) % [place] % (Auto) % Eos % (Auto) % Baso % (Auto) % Neut # (Auto) (1.4-6.5) K/uL Lymph # (Auto) (1.2-3.4) K/uL [place] # (Auto) (0.11-0.59) K/uL Eos # (Auto) (0-0.5) K/uL Baso # (Auto) (0-0.2) K/uL Immature Gran # (Auto) (0.00-0.02) K/uL PT (9.0-12.0) Seconds INR (0.9-1.1) Sodium (136-145) mmol/L Potassium (3.5-5.1) mmol/L Chloride (98-107) mmol/L Carbon Dioxide (21-32) mmol/L Anion Gap (3-11) BUN (7-18) mg/dl Creatinine (0.6-1.4) mg/dl Est Cr Clr Drug Dosing ml/min Est GFR ( Amer) Est GFR (Non-Af Amer) BUN/Creatinine Ratio (10-20) Glucose (70-99) mg/dl Lactate (0.4-2.0) mmol/L Calcium (8.5-10.1) mg/dl Magnesium (1.8-2.4) mg/dl Total Bilirubin (0.2-1) mg/dl Direct Bilirubin (0-0.2) mg/dl AST (15-37) U/L ALT (12-78) U/L Alkaline Phosphatase (45-117) U/L Troponin I (0-0.045) ng/ml NT-Pro-B Natriuret Pep (0-1800) pg/ml Total Protein (6.4-8.2) gm/dl Albumin (3.4-5.0) gm/dl Procalcitonin (0-0.5) ng/ml Urine Color Dark Yellow Urine Appearance Clear (Clear) Urine pH 6.5 (4.5-7.5) Ur Specific [place] 1.022 (1.000-1.030) Urine Protein Negative (Negative) Urine Glucose (UA) Negative (Negative) Urine Ketones Negative (Negative) Urine Blood Negative (Negative) Urine Nitrite Negative (Negative) Urine Bilirubin Negative (Negative) Urine Urobilinogen Negative (Negative) Ur Leukocyte Esterase Negative (Negative) COVID-19 Eval Order SARS-CoV-2, RNA, NAAT NEGATIVE (NEGATIVE) Administered Medications Discontinued Medications Acetaminophen (Acetaminophen 500 Mg Tab) 1,000 mg PO NOW STA Stop: 10/18/20 23:06 Last Admin: 10/18/20 23:58 Dose: 1,000 mg Documented by: [id number] Sodium Chloride (Nss 1000ml) 1,000 mls @ 999 mls/hr IV .[id number] ONE Stop: 10/19/20 00:05 Last Infusion: 10/19/20 01:06 Dose: 0 mls/hr Documented by: [id number] Admin: 10/19/20 00:03 Dose: 999 mls/hr Documented by: [id number] Cefepime HCl (Maxipime) 2,000 mg in 20 mls @ 5 mls/min IV NOW STA Stop: 10/18/20 23:51 Last Admin: 10/18/20 23:58 Dose: 5 mls/min Documented by: [id number] Vancomycin HCl 2,000 mg/ (Sodium Chloride) 540 mls @ 200 mls/hr IV NOW ONE Stop: 10/19/20 02:29 Last Infusion: 10/19/20 04:39 Dose: 0 mls/hr Documented by: [id number] Admin: 10/19/20 01:06 Dose: 200 mls/hr Documented by: [id number] Piperacillin Sod/Tazobactam (Sod 3.375 gm/ Dextrose) 115 mls @ 230 mls/hr IV ONE ONE Stop: 10/19/20 04:29 Last Infusion: 10/19/20 05:14 Dose: 0 mls/hr Documented by: [id number] Admin: 10/19/20 04:34 Dose: 230 mls/hr Documented by: [id number] Discharge Plan Visit Data Chief Complaint: Leg Injury/Pain Stated Complaint: LEFT LEG PAIN ED Provider: Taiwo Valle Discharge Problem: Cellulitis of left leg, Sepsis Patient Disposition: Admitted As Inpatient Discharge Instructions Interventions: ED Discharge Assessment Last Done: 10/19/20 02:12 Discharge Problem: Sepsis Qualifiers: Sepsis type: sepsis due to unspecified organism Sepsis acute organ dysfunction status: without acute organ dysfunction Qualified Code(s): A41.9 - Sepsis, unspecified organism
[2020-10-18 23:39] LABS: Basophils # (auto) 0.02 K/uL (0-0.2); Basophils % (auto) 0.1 %; Eosinophils # (auto) 0.06 K/uL (0-0.5); Eosinophils % (auto) 0.3 %; Hematocrit (blood only) 46.3 % (42-52); Hemoglobin 15.2 g/dL (14.0-18.0); Immature Granulocytes # (auto) 0.06 K/uL (0.00-0.02); Immature Granulocytes % (auto) 0.3 %; Lymphocytes # (auto) 1.09 K/uL (1.2-3.4); Lymphocytes % (auto) 5.7 %; Mean Corpuscular Hemoglobin 30.5 pg (25-34); Mean Corpuscular Hgb Conc 32.8 g/dL (32-36); Mean Corpuscular Volume 92.8 fL (80-100); Mean Platelet Volume 11.7 fL (7.4-10.4); Monocytes # (auto) 1.12 K/uL (0.11-0.59); Monocytes % (auto) 5.8 %; Neutrophils # (auto) 16.83 K/uL (1.4-6.5); Neutrophils % (auto) 87.8 %; Platelet Count 225 K/uL (130-400); RDW Coefficient of Variation 14.7 % (11.5-14.5); RDW Standard Deviation 49.4 fL (36.4-46.3); Red Blood Count 4.99 M/uL (4.7-6.1); White Blood Count 19.18 K/uL (4.8-10.8)
[2020-10-18 23:47] LABS: Prothrombin Time 9.8 Seconds (9.0-12.0)
[2020-10-18] MEDS ORDERED: VANCOMYCIN CONSULT ACTIVE PRN (23:48)
[2020-10-18] MEDS ORDERED: VANCOMYCIN HCL 2,000 MG in SODIUM CHLORIDE 0.9% 500 ML IV ONE (23:48)
[2020-10-18] MEDS ORDERED: CEFEPIME 2,000 MG/20 ML VIAL IV STA (23:48)
[2020-10-18 23:54] LABS: Appearance Urine Clear (Clear); Bilirubin Urine Negative (Negative); Blood Urine Negative (Negative); Color Urine Dark Yellow; Glucose Urine UA Negative (Negative); Ketones Urine Negative (Negative); Leukocyte Esterase Urine Negative (Negative); Nitrite Urine Negative (Negative); Protein Urine Negative (Negative); Specific Gravity Urine 1.022 (1.000-1.030); Urobilinogen Urine Negative (Negative); pH Urine 6.5 (4.5-7.5)
[2020-10-19 00:01] LABS: Alanine Aminotransferase 21 U/L (12-78); Albumin Level 3.1 gm/dl (3.4-5.0); Aspartate Aminotransferase 13 U/L (15-37); BUN Creatinine Ratio 20.1 (10-20); Bilirubin Direct 0.2 mg/dl (0-0.2); Blood Urea Nitrogen 21 mg/dl (7-18); Calcium 8.6 mg/dl (8.5-10.1); Carbon Dioxide 29 mmol/L (21-32); Chloride 115 mmol/L (98-107); Creatinine Clr Calc Pharmacy 60.2 ml/min; Est GFR (African American) 75.2; Est GFR (Non-African American) 64.9; Glucose 105 mg/dl (70-99); Magnesium 2.2 mg/dl (1.8-2.4); Potassium 4.1 mmol/L (3.5-5.1); Sodium 147 mmol/L (136-145)
[2020-10-19 00:06] LABS: Alkaline Phosphatase 63 U/L (45-117); Bilirubin,Total 0.7 mg/dl (0.2-1); NT Pro B Type Natriuretic Pept 228 pg/ml (0-1800); Total Protein 7.5 gm/dl (6.4-8.2); Troponin I < 0.015 ng/ml (0-0.045)
--- NOTE | 2020-10-19 01:08 | History & Physical Report ---
Date of Service October 19, 2020 Assessment & Plan (1) Cellulitis of left lower extremity: Cellulitis of left lower extremity/chronic venous stasis dermatitis- Placed on vancomycin IV and Zosyn IV Continue furosemide 40 mg p.o. daily. May need to be increased Present on Admission?: Yes (2) Hypothyroidism: Continue levothyroxine sodium 50 mcg Present on Admission?: Yes (3) GERD (gastroesophageal reflux disease): Change omeprazole to pantoprazole per formulary interchange Present on Admission?: Yes (4) Diastolic CHF: Continue furosemide Present on Admission?: Yes (5) COPD (chronic obstructive pulmonary disease): Continue Duonebs every 2 hours when necessary. Present on Admission?: Yes (6) PRISCILA (obstructive sleep apnea): CPAP at at bedtime as needed Present on Admission?: Yes (7) Gout: Monitor for potential flareup Present on Admission?: Yes (8) Hypertension: Continue verapamil Present on Admission?: Yes History of Present Illness Chief Complaint: She presents to the emergency department for assessment of left leg pain and swelling, with erythema extending from ankle to to knee and then up medially along thigh. Primary Care Provider: Tyler Hawkins MD The patient is an 85-year-old male with a past medical history including overlap syndrome, hypothyroidism, GERD, pulmonary nodule, diastolic CHF, pneumonia, left lower extremity radiculopathy, chronic venous stasis dermatitis, COPD, PRISCILA, hypoalbuminemia, gout, periodic limb movement, gait disturbance, status post left partial knee replacement, spinal stenosis, osteoporosis, BPH, history of MRSA and hypertension. Patient presents with symptoms as noted above, that developed earlier in the day and worsened throughout the day and into the evening. He reports that he does wear compression socks routinely. He denies any recent trauma or travel. He has had a history of cellulitis in the past, but has never required hospitalization Allergies Allergy/AdvReac Type Severity Reaction Status Date / Time clarithromycin Allergy Intermediate RASH Verified 10/18/20 23:49 Home Medications Medication Instructions Recorded Confirmed Type albuterol sulfate 2 puff INHALATION QID PRN 08/02/18 10/18/20 History magnesium 250 mg PO DAILY 08/02/18 10/18/20 History cholecalciferol (vitamin D3) 25 1,000 units PO DAILY tab 05/30/19 10/18/20 History mcg (1,000 unit) tablet Oxygen Home #1 ea 12/04/19 01/22/21 History ipratropium 0.5 mg-albuterol 3 mg 3 ml INH QID PRN #1080 ml 08/17/19 10/18/20 Rx (2.5 mg base)/3 mL nebulization soln omeprazole magnesium 20 mg 20 mg PO QAM #90 tab 10/05/19 10/18/20 Rx tablet,delayed release potassium chloride 20 mEq 20 meq PO QAM #90 tab 10/05/19 10/18/20 Rx tablet,extended release(part/cryst) levothyroxine 150 mcg PO QAM 05/07/20 10/18/20 History ciclopirox 8 % topical solution 1 applic TOPICAL DAILY #6.6 ml 06/12/20 10/18/20 Rx Fiber (psyllium husk/sugar) 1 tbsp PO DAILY 06/22/20 10/18/20 History Trelegy Ellipta 1 puffs INH DAILY 06/22/20 10/18/20 History calcium carbonate-vitamin D3 1 tab PO QAM 06/22/20 10/18/20 History [Calcium 500 With D] furosemide 40 mg PO DAILY 06/22/20 10/18/20 History verapamil 180 mg PO HS 06/22/20 10/18/20 History doxycycline hyclate 100 mg PO BID #60 tab 06/24/20 10/18/20 Rx multivitamin 1 tab PO DAILY tab 09/04/20 10/18/20 History Past Med/Surg History Medical History (Updated 10/19/20 @ 01:46 by Jimmie Baires MD) BPH (benign prostatic hyperplasia) Chronic obstructive pulmonary disease Diastolic CHF Fluid retention in legs GERD (gastroesophageal reflux disease) History of cellulitis Hypertension Hypothyroidism Hypothyroidism (acquired) Left lumbar radiculopathy Lumbar spinal stenosis On home oxygen therapy 02 2LPM AT HS Osteoarthritis Osteoporosis, unspecified Personal history of MRSA (methicillin resistant Staphylococcus aureus) Pulmonary nodule Sleep apnea cpap Spinal stenosis Surgical History History of cardiac cath 12/2019 - [place] - increased edema - no stents/angioplasty History of cholecystectomy History of colonoscopy History of herniorrhaphy left inguinal History of partial knee replacement left History of tonsillectomy History of tooth extraction Hx of surgical procedure LEFT FEMUR FX WITH REPAIR Family History Mother Cerebral atherosclerosis Father Diverticulosis Other No significant family history Denies family history of Ovarian cancer Prostate cancer Myocardial infarction Breast cancer Colorectal cancer Social History Smoking Status: Former smoker packs per day: 1; Years Smoked: 40; Cigarettes Per Day: 20; Number of Years Since Quit: 14; Second Hand Exposure: No; Hx Alcohol Use: Yes Alcohol type: beer Hx Substance Use: No Preferred Language: [place] Communication Ability: Effective Visual Impairment: No Limitations Hearing Ability: Normal 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 Insoles Required: No Beliefs That Will Affect Care: None marital status: Current Living Situation: Spouse current occupational status: retired Feels Safe at Home: Yes Dental Care, Regularly: No Physical Activity Frequency: 1-2 Times per Week Seatbelt Use: always Sunscreen Use: Yes Assistive Devices: Glasses, Oxygen - at Night and Walker Review of Systems Review of Systems: The patient denies chest pain, palpitations, shortness of breath, dyspnea on exertion, cough, sore throat, fevers, chills, sweats, fatigue, nausea, vomiting, diarrhea , constipation, abdominal pain, pelvic pain, blood in urine or stool, dysuria, urinary frequency or urgency, lightheadedness, dizziness, headache, memory loss, loss of consciousness, abnormal bruising or bleeding, imbalance, focal or generalized weakness, numbness or tingling in arms , generalized arthralgias or myalgias, back or neck pain, or night sweats. The review of systems is otherwise negative other than for that already noted above, and at least 10 systems have been reviewed. Physical Exam Physical Exam: The patient is awake, alert and oriented 3, well developed and well nourished, normocephalic and atraumatic, lying in bed and in no acute distress. HEENT--PERRL, EOMI, mucous membranes and oropharynx normal. Neck--supple. No JVD. No bruits. Thyroid normal, trachea midline, no adenopathy. Heart--normal S1 and S2. No murmurs, rubs or gallops. Lungs--clear bilaterally, no respiratory distress, no accessory muscle use. Abdomen--normal bowel sounds and soft. Nontender. Nondistended, no hernias or masses, no organomegaly. Extremities/dermatologic--no cyanosis or clubbing. Left lower extremity with 2+ pretibial pitting edema, vacuoles, moderately severe erythema extending from ankle to knee and then medially up thigh. --Right lower extremity with a few small vacuoles and 1+ pretibial pitting edema Neurologic--cranial nerves II through XII grossly intact. Rheumatologic--normal range of motion. Psychiatric--normal affect. Results & Data Results & Data ([facility]) Vital Signs (Past 12 Hours) Vital Signs Temp Pulse Resp BP Pulse Ox 10/18/20 22:28 98.6 F 122 H 20 165/96 H 90 Laboratory Results Laboratory Results WBC 19.18 K/uL (4.8-10.8) H 10/18/20 23:24 RBC 4.99 M/uL (4.7-6.1) 10/18/20 23:24 Hgb 15.2 g/dL (14.0-18.0) 10/18/20 23:24 Hct 46.3 % (42-52) 10/18/20 23:24 MCV 92.8 fL (80-100) 10/18/20 23:24 MCH 30.5 pg (25-34) 10/18/20 23:24 MCHC 32.8 g/dL (32-36) 10/18/20 23:24 RDW Std Deviation 49.4 fL (36.4-46.3) H 10/18/20 23:24 RDW Coeff of [place] 14.7 % (11.5-14.5) H 10/18/20 23:24 Plt Count 225 K/uL (130-400) 10/18/20 23:24 MPV 11.7 fL (7.4-10.4) H 10/18/20 23:24 Immature Gran % (Auto) 0.3 % 10/18/20 23:24 Neut % (Auto) 87.8 % 10/18/20 23:24 Lymph % (Auto) 5.7 % 10/18/20 23:24 [place] % (Auto) 5.8 % 10/18/20 23:24 Eos % (Auto) 0.3 % 10/18/20 23:24 Baso % (Auto) 0.1 % 10/18/20 23:24 Neut # (Auto) 16.83 K/uL (1.4-6.5) H 10/18/20 23:24 Lymph # (Auto) 1.09 K/uL (1.2-3.4) L 10/18/20 23:24 [place] # (Auto) 1.12 K/uL (0.11-0.59) H 10/18/20 23:24 Eos # (Auto) 0.06 K/uL (0-0.5) 10/18/20 23:24 Baso # (Auto) 0.02 K/uL (0-0.2) 10/18/20 23:24 Immature Gran # (Auto) 0.06 K/uL (0.00-0.02) H 10/18/20 23:24 PT 9.8 Seconds (9.0-12.0) 10/18/20 23:24 INR 1.0 (0.9-1.1) 10/18/20 23:24 Sodium 147 mmol/L (136-145) H 10/18/20 23:24 Potassium 4.1 mmol/L (3.5-5.1) 10/18/20 23:24 Chloride 115 mmol/L (98-107) H 10/18/20 23:24 Carbon Dioxide 29 mmol/L (21-32) 10/18/20 23:24 Anion Gap 3.0 (3-11) 10/18/20 23:24 BUN 21 mg/dl (7-18) H 10/18/20 23:24 Creatinine 1.05 mg/dl (0.6-1.4) 10/18/20 23:24 Est Cr Clr Drug Dosing 60.2 ml/min 10/18/20 23:24 Est GFR ( Amer) 75.2 10/18/20 23:24 Est GFR (Non-Af Amer) 64.9 10/18/20 23:24 BUN/Creatinine Ratio 20.1 (10-20) H 10/18/20 23:24 Glucose 105 mg/dl (70-99) H 10/18/20 23:24 Lactate 1.7 mmol/L (0.4-2.0) 10/18/20 23:24 Calcium 8.6 mg/dl (8.5-10.1) 10/18/20 23:24 Magnesium 2.2 mg/dl (1.8-2.4) 10/18/20 23:24 Total Bilirubin 0.7 mg/dl (0.2-1) 10/18/20 23:24 Direct Bilirubin 0.2 mg/dl (0-0.2) 10/18/20 23:24 AST 13 U/L (15-37) L 10/18/20 23:24 ALT 21 U/L (12-78) 10/18/20 23:24 Alkaline Phosphatase 63 U/L (45-117) 10/18/20 23:24 Troponin I < 0.015 ng/ml (0-0.045) 10/18/20 23:24 NT-Pro-B Natriuret Pep 228 pg/ml (0-1800) 10/18/20 23:24 Total Protein 7.5 gm/dl (6.4-8.2) 10/18/20 23:24 Albumin 3.1 gm/dl (3.4-5.0) L 10/18/20 23:24 Procalcitonin 0.10 ng/ml (0-0.5) 10/18/20 23:24 Urine Color Dark Yellow 10/18/20 23:45 Urine Appearance Clear (Clear) 10/18/20 23:45 Urine pH 6.5 (4.5-7.5) 10/18/20 23:45 Ur Specific [place] 1.022 (1.000-1.030) 10/18/20 23:45 Urine Protein Negative (Negative) 10/18/20 23:45 Urine Glucose (UA) Negative (Negative) 10/18/20 23:45 Urine Ketones Negative (Negative) 10/18/20 23:45 Urine Blood Negative (Negative) 10/18/20 23:45 Urine Nitrite Negative (Negative) 10/18/20 23:45 Urine Bilirubin Negative (Negative) 10/18/20 23:45 Urine Urobilinogen Negative (Negative) 10/18/20 23:45 Ur Leukocyte Esterase Negative (Negative) 10/18/20 23:45 COVID-19 Eval Order Covid19 [facility]Now [facility] 10/18/20 23:44 SARS-CoV-2, RNA, NAAT NEGATIVE (NEGATIVE) 10/18/20 23:44 Code Status & VTE Plan Code Status Full code VTE Prophylaxis Plan VTE Prophylaxis will be ordered: Yes PG Care Time/CCT Total # of Minutes Spent Total Time Spent with Patient: Total time spent is greater than 50% in coordination of care (as documented) at patient's floor/unit and/or counseling patient: Coding Level of Care Code 49583 Initial Inpt Care Lvl 3 Diagnoses Cellulitis of left lower extremity L03.116 Hypothyroidism E03.9 GERD (gastroesophageal reflux disease) K21.9 Diastolic CHF I50.30 COPD (chronic obstructive pulmonary disease) J44.9 PRISCILA (obstructive sleep apnea) G47.33 Gout M10.9 Hypertension I10
[2020-10-19] MEDS ORDERED: VANCOMYCIN CONSULT ACTIVE PRN (03:08)
[2020-10-19] MEDS ORDERED: ALBUT/IPRATROP 3MG/0.5MG NEB 3 ML VIAL INH PRN (03:08)
[2020-10-19] MEDS ORDERED: ACETAMINOPHEN 325 MG TAB PO PRN (03:08)
[2020-10-19] MEDS ORDERED: ONDANSETRON INJ 2 MG/ML 2 ML VIAL IV PRN (03:08)
[2020-10-19] MEDS ORDERED: VANCOMYCIN HCL 1,000 MG in SODIUM CHLORIDE 0.9% 250 ML IV SCH (03:08)
[2020-10-19] MEDS ORDERED: PIPERACILL/TAZOBAC CONSULT ACTIVE PRN (03:08)
[2020-10-19] MEDS ORDERED: PIPERACILLIN/TAZOBACTAM 3.375 GM in DEXTROSE 5% 100 ML IV ONE (04:00)
[2020-10-19] MEDS: LEVOTHYROXINE SODIUM 150 MCG TABLET PO SCH (06:31)
--- NOTE | 2020-10-19 07:14 | Ultrasound Report ---
ULTRASOUND LEFT LOWER EXTREMITY VENOUS CLINICAL HISTORY: Left leg swelling. Cellulitis. COMPARISON STUDY: Bilateral lower extremity venous ultrasound dated 09/25/2019. TECHNIQUE: Real-time, grayscale, and color Doppler sonography of the deep veins of the left lower ext remity was performed from the inguinal crease to the calf. Compression and augmentation were utilized . FINDINGS: There is no sonographic evidence of deep venous thrombosis identified in the left lower ext remity. The common femoral, superficial femoral, and popliteal veins are patent and normally compress ible. The greater saphenous vein and the profunda femoris vein at the junction with the common femora l vein are clear. The visualized calf veins are patent. Soft tissue edema is noted in the calf. IMPRESSION: There is no sonographic evidence of deep venous thrombosis identified in the left lower e xtremity. ACT 112: Negative or not required by law. Electronically signed by: Roosevelt Hairston M.D. 10/19/2020 7:13 AM
--- NOTE | 2020-10-19 07:50 | XRay Report ---
SINGLE VIEW CHEST CLINICAL HISTORY: Sepsis. FINDINGS: An AP, portable, upright chest radiograph is compared to study dated 07/20/2020 and correlat ed with chest CT dated 06/22/2020. The heart is enlarged noting atherosclerotic calcification of the t horacic aorta. There is prominence of the pulmonary vasculature. Emphysema and chronic interstitial t hickening are similar to previous. There is bibasilar scarring/atelectasis. No airspace consolidation is seen typical for pneumonia and there is no large pleural effusion. No pneumothorax is seen. The s keletal structures are osteopenic. The bony thorax is grossly intact. Degenerative change is noted in the shoulders and thoracic spine. IMPRESSION: 1. Cardiomegaly, emphysema, and chronic parenchymal changes as above. 2. There is prominence of the pulmonary vasculature. Correlate clinically for evidence of mild conges tive failure. 3. No airspace consolidation or large pleural effusion is identified. ACT 112: Negative or not required by law. Electronically signed by: Roosevelt Hairston M.D. 10/19/2020 7:49 AM
[2020-10-19] MEDS: CICLOPIROX~ORDER AWAITING ACTION SCH ×3 (08:46→23:28)
[2020-10-19] MEDS: FLUTICASONE FUROATE 100MCG 14 PUFFS/INHALER INH SCH (08:48)
[2020-10-19] MEDS: UMECLIDINIUM/VILANTEROL 62.5/25MCG 7 PUFFS/INHALER INH SCH (08:48)
[2020-10-19] MEDS: FUROSEMIDE 40 MG TAB PO SCH (08:49)
[2020-10-19] MEDS: PSYLLIUM 58.6% POWDER PACKET PO SCH (08:49)
[2020-10-19] MEDS: CHOLECALCIFEROL 1,000 UNITS 25 MCG TAB PO SCH (08:49)
[2020-10-19] MEDS: POTASSIUM CHLORIDE CRTAB 20 MEQ TABCR PO SCH (08:49)
[2020-10-19] MEDS: PANTOprazole 40 MG TAB PO SCH (08:49)
[2020-10-19] MEDS: MAGNESIUM OXIDE 400 MG TAB PO SCH (08:49)
[2020-10-19] MEDS: CALCIUM 600MG + VIT D 400 IU TAB PO SCH (08:49)
[2020-10-19] MEDS: MULTIVITAMIN TAB PO SCH (08:49)
[2020-10-19] MEDS: ENOXAPARIN INJ 40 MG/0.4 ML SYR SQ SCH (08:50)
[2020-10-19] MEDS: SODIUM CHLORIDE 0.45 % 1,000 ML IV SCH ×2 (09:05→21:59)
[2020-10-19] MEDS: PIPERACILLIN/TAZOBACTAM 3.375 GM in DEXTROSE 5% 100 ML IV SCH ×2 (09:07→17:06)
--- NOTE | 2020-10-19 09:33 | Pharmacy Report ---
Pharmacy Abx Dose Short Note - Date of Service October 19, 2020 - Assessment & Plan Assessment 85 year old M admitted wit LE cellulitis. Started on vancomycin and zosyn. Blood cultures x 2 are pending. Hx of MRSA in leg cx's Plan Vancomycin * Received loading dose of vancomycin 2000 mg x 1 (~20 mg/kg) x 1 this AM * Will start maintenance dose of vancomycin 1250 mg (~13 mg/kg) IV q 16 hrs to achieve an estimated trough ~15 mcg/ml (goal for cellulitis) * Estimated kinetics: t1/2~13 hrs, ke~0.05hr-1, CrCl ~60.2 * Will order trough if plan is to continue >48 hrs or sooner if renal function changes Zosyn * 3.375 gm iv q 8 hrs - crcl >20 / no change Pharmacy will continue to follow and will adjust dose/frequency as necessary. Thank you.
--- NOTE | 2020-10-19 13:32 | Electrocardiogram Report ---
Test Reason : Blood Pressure : / mmHG Vent. Rate : 109 BPM Atrial Rate : 109 BPM P-R Int : 158 ms QRS Dur : 076 ms QT Int : 342 ms P-R-T Axes : 030 -32 013 degrees QTc Int : 460 ms Sinus tachycardia with Premature supraventricular complexes Left axis deviation Anterior infarct (cited on or before 22-JUN-2020) Abnormal ECG When compared with ECG of 22-JUN-2020 14:39, Premature ventricular complexes are no longer Present Confirmed by Tyler Ward ([id number]) on 10/19/2020 1:32:19 PM Referred By: REFERRED SELF Confirmed By:Tyler Ward
--- NOTE | 2020-10-19 14:34 | Hospitalist Progress Note ---
Date of Service October 19, 2020 Assessment & Plan (1) Cellulitis of left lower extremity: Cellulitis of left lower extremity/chronic venous stasis dermatitis- Continue vancomycin IV and Zosyn IV Left lower extremity venous Doppler negative for DVT . Continue furosemide 40 mg p.o. daily. (2) Hypothyroidism: Continue levothyroxine sodium 50 mcg (3) GERD (gastroesophageal reflux disease): Change omeprazole to pantoprazole per formulary interchange (4) Diastolic CHF: Continue furosemide. Chronic. Stable (5) COPD (chronic obstructive pulmonary disease): Continue Duonebs every 2 hours when necessary. (6) PRISCILA (obstructive sleep apnea): CPAP at at bedtime as needed (7) Gout: Monitor for potential flareup (8) Hypertension: Continue verapamil (9) Hypernatremia: Serum osmolarity pending. Hypotonic IV fluids. Serial labs Disposition: Eventual discharge to home Admission and Anticipated Discharge Date Admission Date: October 19, 2020 Subjective Alert and pleasant. No complaints. White blood cell count noted to be 19,000. Sodium 147 and chloride 115. Hypotonic IV fluids ordered. Serial lab studies also ordered. Left lower extremity venous Doppler negative for DVT. He remains on vancomycin and Zosyn, day 1. Review of Systems Review of Systems: Constitutional-no fever or chills ENT-no blurred vision, no double vision, no epistaxis, no sore throat Respiratory-no cough, no wheezing, no shortness of breath Cardiac-no palpitations, no chest pain, no syncope GI-no nausea, vomiting, diarrhea, melena, hematochezia -no urinary retention, no urinary incontinence, no dysuria, no hematuria Musculoskeletal-tender, swollen left lower extremity below the knee Skin-no bruising, no rashes, no pruritus Neuro-no isolated weakness, no paresthesia, no weakness Psych-no depression, no anxiety Physical Exam Physical Exam: General-alert and oriented x3, no fevers, no chills HEENT-head atraumatic and normocephalic, TMs intact bilaterally, pupils equal and reactive to light, extraocular muscles intact Neck-no lymphadenopathy or thyromegaly, trachea midline Chest-clear to auscultation percussion. No rales wheezing or rhonchi Cardiac-regular rate and rhythm, normal S1 and S2, no murmurs Abdomen-normal bowel sounds, nontender, no hepatosplenomegaly Extremities-swollen, tender, erythematous left lower extremity below the knee Neuro-cranial nerves II through XII intact, motor and sensory function within normal limits, strength symmetrical 5/5, no focal deficits Psych-normal affect, normal mood Results & Data Results & Data ([facility]) Vital Signs (Past 12 Hours) Vital Signs Temp Pulse Resp BP Pulse Ox 10/19/20 07:56 37 C 84 16 133/78 93 10/19/20 03:45 36.8 C 101 H 16 145/79 H 92 Laboratory Results 10/18/20 23:24 10/18/20 23:24 PG Care Time/CCT Total # of Minutes Spent Total Time Spent with Patient: Total time spent is greater than 50% in coordination of care (as documented) at patient's floor/unit and/or counseling patient: Coding Level of Care Code 67224 Subseq Hosp Care Lvl 3 Diagnoses Cellulitis of left lower extremity L03.116 Hypothyroidism E03.9 GERD (gastroesophageal reflux disease) K21.9 Diastolic CHF I50.30 COPD (chronic obstructive pulmonary disease) J44.9 PRISCILA (obstructive sleep apnea) G47.33 Gout M10.9 Hypertension I10 Hypernatremia E87.0
[2020-10-19] MEDS: VANCOMYCIN HCL 1,250 MG in SODIUM CHLORIDE 0.9% 250 ML IV SCH (15:36)
[2020-10-19] MEDS: VERAPAMIL HCL 180 MG TABCR PO SCH (20:39)
[2020-10-20] MEDS: PIPERACILLIN/TAZOBACTAM 3.375 GM in DEXTROSE 5% 100 ML IV SCH ×3 (00:05→16:11)
[2020-10-20] MEDS: LEVOTHYROXINE SODIUM 150 MCG TABLET PO SCH (05:48)
[2020-10-20 05:56] LABS: Basophils # (auto) 0.01 K/uL (0-0.2); Basophils % (auto) 0.1 %; Hematocrit (blood only) 41.9 % (42-52); Hemoglobin 13.7 g/dL (14.0-18.0); Immature Granulocytes # (auto) 0.04 K/uL (0.00-0.02); Immature Granulocytes % (auto) 0.4 %; Lymphocytes # (auto) 1.14 K/uL (1.2-3.4); Lymphocytes % (auto) 11.5 %; Mean Corpuscular Hgb Conc 32.7 g/dL (32-36); Mean Corpuscular Volume 91.7 fL (80-100); Mean Platelet Volume 11.9 fL (7.4-10.4); Monocytes # (auto) 0.99 K/uL (0.11-0.59); Neutrophils # (auto) 7.62 K/uL (1.4-6.5); Platelet Count 205 K/uL (130-400); RDW Coefficient of Variation 14.8 % (11.5-14.5); RDW Standard Deviation 49.7 fL (36.4-46.3); Red Blood Count 4.57 M/uL (4.7-6.1)
[2020-10-20 06:45] LABS: BUN Creatinine Ratio 12.3 (10-20); Calcium 8.1 mg/dl (8.5-10.1); Creatinine Clr Calc Pharmacy 55.8 ml/min; Est GFR (African American) 69.5; Potassium 3.9 mmol/L (3.5-5.1)
[2020-10-20] MEDS: VANCOMYCIN HCL 1,250 MG in SODIUM CHLORIDE 0.9% 250 ML IV SCH (08:25)
[2020-10-20] MEDS: UMECLIDINIUM/VILANTEROL 62.5/25MCG 7 PUFFS/INHALER INH SCH (08:26)
[2020-10-20] MEDS: FLUTICASONE FUROATE 100MCG 14 PUFFS/INHALER INH SCH (08:26)
[2020-10-20] MEDS: ENOXAPARIN INJ 40 MG/0.4 ML SYR SQ SCH (08:26)
[2020-10-20] MEDS: PANTOprazole 40 MG TAB PO SCH (08:26)
[2020-10-20] MEDS: MAGNESIUM OXIDE 400 MG TAB PO SCH (08:27)
[2020-10-20] MEDS: CALCIUM 600MG + VIT D 400 IU TAB PO SCH (08:27)
[2020-10-20] MEDS: POTASSIUM CHLORIDE CRTAB 20 MEQ TABCR PO SCH (08:28)
[2020-10-20] MEDS: CHOLECALCIFEROL 1,000 UNITS 25 MCG TAB PO SCH (08:28)
[2020-10-20] MEDS: FUROSEMIDE 40 MG TAB PO SCH (08:28)
[2020-10-20] MEDS: PSYLLIUM 58.6% POWDER PACKET PO SCH (08:29)
[2020-10-20] MEDS: MULTIVITAMIN TAB PO SCH (08:29)
[2020-10-20] MEDS: CICLOPIROX~ORDER AWAITING ACTION SCH ×2 (08:31→16:47)
[2020-10-20] MEDS: SODIUM CHLORIDE 0.45 % 1,000 ML IV SCH (11:03)
--- NOTE | 2020-10-20 16:30 | Hospitalist Progress Note ---
Date of Service October 20, 2020 Assessment & Plan (1) Cellulitis of left lower extremity: Cellulitis of left lower extremity/chronic venous stasis dermatitis- Started on vancomycin IV and Zosyn IV on admission, will d/c vanco (last dose 10/20 10am) given prelim blood cx neg Left lower extremity venous Doppler negative for DVT . Continue furosemide 40 mg p.o. daily. (2) Hypothyroidism: Continue levothyroxine sodium 50 mcg (3) GERD (gastroesophageal reflux disease): Change omeprazole to pantoprazole per formulary interchange (4) Diastolic CHF: Continue furosemide. Chronic. Stable (5) COPD (chronic obstructive pulmonary disease): Continue Duonebs every 2 hours when necessary. (6) PRISCILA (obstructive sleep apnea): CPAP at at bedtime as needed (7) Gout: Monitor for potential flareup (8) Hypertension: Continue verapamil (9) Hypernatremia: Serum osmolarity pending. Hypotonic IV fluids. Serial labs Disposition: Eventual discharge to home PT recs for HHPT, OT without further needs Admission and Anticipated Discharge Date Admission Date: October 19, 2020 Subjective Pt states the LLE redness is somewhat improved, but the swelling is about the same or slightly better. He states he has not had pain to the LE, just tightness with the swelling. He has not been on abx with this. Otherwise feels fine. Pt denies fever, SOB, chest pain, abd pain, n/v/c/d. Review of Systems Review of Systems: Pertinent positives and negatives reviewed in HPI--all others negative Physical Exam Constitutional: WD/WN, vitals as above Eyes: normal visual brown by confrontation and + anicteric sclerae Neck: normal visual inspection and trachea midline Respiratory: normal respiratory effort, lungs clear to auscultation Cardiovascular: Rate/Rhythm: regular rate and regular rhythm Extremities: + edema (LLE) Gastrointestinal (Abdomen): Inspection/Auscultation: abdomen not distended Percussion/Palpation: abdomen soft; abdomen nontender Musculoskeletal: Head/Neck/Chest: normocephalic and head atraumatic peripheral pulses intact Skin: + skin tightening and + erythema (appears to be regressing from marker lines) Neurologic: awake; not confused Speech / Cognition: normal speech Psychiatric: A+Ox3, euthymic affect Results & Data Results & Data ([facility]) Vital Signs (Past 12 Hours) Vital Signs Temp Pulse Pulse Resp BP Pulse Ox 10/20/20 15:47 36.7 C 90 19 118/74 93 10/20/20 07:41 36.7 C 59 L 18 136/80 91 PG Care Time/CCT Total # of Minutes Spent Total Time Spent with Patient: Total time spent is greater than 50% in coordination of care (as documented) at patient's floor/unit and/or counseling patient: Coding Level of Care Code 62276 Subseq Hosp Care Lvl 3 Diagnoses Cellulitis of left lower extremity L03.116 Hypothyroidism E03.9 GERD (gastroesophageal reflux disease) K21.9 Diastolic CHF I50.30 COPD (chronic obstructive pulmonary disease) J44.9 PRISCILA (obstructive sleep apnea) G47.33 Gout M10.9 Hypertension I10 Hypernatremia E87.0
[2020-10-20] MEDS: VERAPAMIL HCL 180 MG TABCR PO SCH (20:06)
[2020-10-21] MEDS: PIPERACILLIN/TAZOBACTAM 3.375 GM in DEXTROSE 5% 100 ML IV SCH ×4 (00:01→23:09)
[2020-10-21] MEDS: SODIUM CHLORIDE 0.45 % 1,000 ML IV SCH ×2 (00:01→13:10)
[2020-10-21] MEDS: CICLOPIROX~ORDER AWAITING ACTION SCH ×4 (00:02→23:08)
[2020-10-21] MEDS: LEVOTHYROXINE SODIUM 150 MCG TABLET PO SCH (05:26)
[2020-10-21 06:36] LABS: Basophils # (auto) 0.01 K/uL (0-0.2); Basophils % (auto) 0.1 %; Eosinophils # (auto) 0.22 K/uL (0-0.5); Eosinophils % (auto) 2.2 %; Hematocrit (blood only) 42.5 % (42-52); Hemoglobin 13.9 g/dL (14.0-18.0); Immature Granulocytes # (auto) 0.06 K/uL (0.00-0.02); Immature Granulocytes % (auto) 0.6 %; Lymphocytes % (auto) 12.8 %; Mean Corpuscular Hgb Conc 32.7 g/dL (32-36); Mean Corpuscular Volume 91.8 fL (80-100); Mean Platelet Volume 11.9 fL (7.4-10.4); Monocytes % (auto) 12.8 %; Neutrophils # (auto) 7.24 K/uL (1.4-6.5); Neutrophils % (auto) 71.5 %; Platelet Count 205 K/uL (130-400); RDW Coefficient of Variation 14.8 % (11.5-14.5); RDW Standard Deviation 50.1 fL (36.4-46.3); Red Blood Count 4.63 M/uL (4.7-6.1); White Blood Count 10.13 K/uL (4.8-10.8)
[2020-10-21 07:07] LABS: BUN Creatinine Ratio 9.8 (10-20); Calcium 8.6 mg/dl (8.5-10.1); Creatinine Clr Calc Pharmacy 53.4 ml/min; Est GFR (Non-African American) 56.9; Potassium 3.6 mmol/L (3.5-5.1)
[2020-10-21] MEDS: FLUTICASONE FUROATE 100MCG 14 PUFFS/INHALER INH SCH (08:13)
[2020-10-21] MEDS: UMECLIDINIUM/VILANTEROL 62.5/25MCG 7 PUFFS/INHALER INH SCH (08:13)
[2020-10-21] MEDS: PSYLLIUM 58.6% POWDER PACKET PO SCH (08:21)
[2020-10-21] MEDS: ENOXAPARIN INJ 40 MG/0.4 ML SYR SQ SCH (08:21)
[2020-10-21] MEDS: CHOLECALCIFEROL 1,000 UNITS 25 MCG TAB PO SCH (08:22)
[2020-10-21] MEDS: POTASSIUM CHLORIDE CRTAB 20 MEQ TABCR PO SCH (08:22)
[2020-10-21] MEDS: PANTOprazole 40 MG TAB PO SCH (08:22)
[2020-10-21] MEDS: FUROSEMIDE 40 MG TAB PO SCH (08:22)
[2020-10-21] MEDS: MULTIVITAMIN TAB PO SCH (08:22)
[2020-10-21] MEDS: MAGNESIUM OXIDE 400 MG TAB PO SCH (08:23)
[2020-10-21] MEDS: CALCIUM 600MG + VIT D 400 IU TAB PO SCH (08:23)
--- NOTE | 2020-10-21 15:16 | Hospitalist Progress Note ---
Date of Service October 21, 2020 Assessment & Plan (1) Cellulitis of left lower extremity: Cellulitis of left lower extremity/chronic venous stasis dermatitis- Started on vancomycin IV and Zosyn IV on admission, will d/c vanco (last dose 10/20 10am) given prelim blood cx neg Left lower extremity venous Doppler negative for DVT . Continue furosemide 40 mg p.o. daily. Pt tolerating PO without issue, d/c IVF (2) Hypothyroidism: Continue levothyroxine sodium 50 mcg (3) GERD (gastroesophageal reflux disease): Change omeprazole to pantoprazole per formulary interchange (4) Diastolic CHF: Continue furosemide. Chronic. Stable (5) COPD (chronic obstructive pulmonary disease): Continue Duonebs every 2 hours when necessary. (6) PRISCILA (obstructive sleep apnea): CPAP at at bedtime as needed (7) Gout: Monitor for potential flareup (8) Hypertension: Continue verapamil (9) Hypernatremia: Serum osmolarity pending. Hypotonic IV fluids. Serial labs Disposition: Eventual discharge to home PT recs for HHPT, OT without further needs Admission and Anticipated Discharge Date Admission Date: October 19, 2020 Subjective Pt feels much better today. L LE swelling is more improved. He also noted that his L LE redness was better. His LE are both bright red while he is sitting bedside. He states that this happens when he is on his feet for a prolonged period of time, which he had just come back from the bathroom and washing up. He states it will improve over time with being seated and/or legs up. Pt denies fever, SOB, chest pain, abd pain, n/v/c/d, LE pain. Review of Systems Review of Systems: Pertinent positives and negatives reviewed in HPI--all others negative Physical Exam Constitutional: WD/WN, vitals as above Eyes: normal visual brown by confrontation and + anicteric sclerae Neck: normal visual inspection and trachea midline Respiratory: normal respiratory effort, lungs clear to auscultation Cardiovascular: Rate/Rhythm: regular rate and regular rhythm Extremities: + edema (LLE is improving) Gastrointestinal (Abdomen): Inspection/Auscultation: abdomen not distended Percussion/Palpation: abdomen soft; abdomen nontender Musculoskeletal: Head/Neck/Chest: normocephalic and head atraumatic Skin: + skin tightening and + erythema (b/l LE redness that is improving from the thighs down as pt is seated) Neurologic: awake; not confused Speech / Cognition: normal speech Psychiatric: A+Ox3, euthymic affect Results & Data Results & Data ([facility]) Vital Signs (Past 12 Hours) Vital Signs Temp Pulse Resp BP Pulse Ox 10/21/20 14:42 37.0 C 90 16 137/89 94 10/21/20 07:23 36.8 C 99 H 16 138/93 90 PG Care Time/CCT Total # of Minutes Spent Total Time Spent with Patient: Total time spent is greater than 50% in coordination of care (as documented) at patient's floor/unit and/or counseling patient: Coding Level of Care Code 22434 Subseq Hosp Care Lvl 3 Diagnoses Cellulitis of left lower extremity L03.116 Hypothyroidism E03.9 GERD (gastroesophageal reflux disease) K21.9 Diastolic CHF I50.30 COPD (chronic obstructive pulmonary disease) J44.9 PRISCILA (obstructive sleep apnea) G47.33 Gout M10.9 Hypertension I10 Hypernatremia E87.0
[2020-10-21] MEDS: VERAPAMIL HCL 180 MG TABCR PO SCH (20:37)
[2020-10-22] MEDS: LEVOTHYROXINE SODIUM 150 MCG TABLET PO SCH (05:46)
[2020-10-22 06:06] LABS: Basophils # (auto) 0.01 K/uL (0-0.2); Basophils % (auto) 0.1 %; Eosinophils # (auto) 0.22 K/uL (0-0.5); Eosinophils % (auto) 2.4 %; Hematocrit (blood only) 43.8 % (42-52); Hemoglobin 14.3 g/dL (14.0-18.0); Immature Granulocytes # (auto) 0.05 K/uL (0.00-0.02); Immature Granulocytes % (auto) 0.5 %; Lymphocytes # (auto) 1.46 K/uL (1.2-3.4); Lymphocytes % (auto) 15.7 %; Mean Corpuscular Hemoglobin 29.9 pg (25-34); Mean Corpuscular Hgb Conc 32.6 g/dL (32-36); Mean Corpuscular Volume 91.6 fL (80-100); Mean Platelet Volume 11.4 fL (7.4-10.4); Monocytes # (auto) 1.24 K/uL (0.11-0.59); Monocytes % (auto) 13.4 %; Neutrophils # (auto) 6.29 K/uL (1.4-6.5); Neutrophils % (auto) 67.9 %; Platelet Count 213 K/uL (130-400); RDW Coefficient of Variation 14.6 % (11.5-14.5); RDW Standard Deviation 49.5 fL (36.4-46.3); Red Blood Count 4.78 M/uL (4.7-6.1); White Blood Count 9.27 K/uL (4.8-10.8)
[2020-10-22 06:32] LABS: BUN Creatinine Ratio 10.3 (10-20); Calcium 8.7 mg/dl (8.5-10.1); Creatinine Clr Calc Pharmacy 53.8 ml/min; Est GFR (African American) 66.7; Est GFR (Non-African American) 57.5; Potassium 3.6 mmol/L (3.5-5.1)
[2020-10-22] MEDS: PIPERACILLIN/TAZOBACTAM 3.375 GM in DEXTROSE 5% 100 ML IV SCH (08:03)
[2020-10-22] MEDS: CICLOPIROX~ORDER AWAITING ACTION SCH ×3 (08:03→22:00)
[2020-10-22] MEDS: CALCIUM 600MG + VIT D 400 IU TAB PO SCH (08:05)
[2020-10-22] MEDS: POTASSIUM CHLORIDE CRTAB 20 MEQ TABCR PO SCH (08:06)
[2020-10-22] MEDS: FUROSEMIDE 40 MG TAB PO SCH (08:06)
[2020-10-22] MEDS: MULTIVITAMIN TAB PO SCH (08:07)
[2020-10-22] MEDS: ENOXAPARIN INJ 40 MG/0.4 ML SYR SQ SCH (08:07)
[2020-10-22] MEDS: MAGNESIUM OXIDE 400 MG TAB PO SCH (08:07)
[2020-10-22] MEDS: PANTOprazole 40 MG TAB PO SCH (08:08)
[2020-10-22] MEDS: CHOLECALCIFEROL 1,000 UNITS 25 MCG TAB PO SCH (08:08)
[2020-10-22] MEDS: UMECLIDINIUM/VILANTEROL 62.5/25MCG 7 PUFFS/INHALER INH SCH (08:09)
[2020-10-22] MEDS: PSYLLIUM 58.6% POWDER PACKET PO SCH (08:11)
[2020-10-22] MEDS: FLUTICASONE FUROATE 100MCG 14 PUFFS/INHALER INH SCH (08:11)
--- NOTE | 2020-10-22 11:06 | Hospitalist Progress Note ---
Date of Service October 22, 2020 Assessment & Plan (1) Cellulitis of left lower extremity: Cellulitis of left lower extremity/chronic venous stasis dermatitis- Started on vancomycin IV and Zosyn IV on admission, will d/c vanco (last dose 10/20 10am) given blood cx neg, d/c zosyn on 10/22 with last dose around 8a -> keflex QID Left lower extremity venous Doppler negative for DVT Continue furosemide 40 mg p.o. daily. Should likely f/u with [facility] on d/c. Pt has been active with them in the past Pt with chronic LE discoloration that appears gravity dependent. It is most marked when or after pt has been standing. Less severe with seated with LE propped. Resolves with lying down. Pt states he has been worked up for this with cardiology in the past and there is no clear reason for the skin color changes. (2) Hypothyroidism: Continue levothyroxine sodium 50 mcg (3) GERD (gastroesophageal reflux disease): Change omeprazole to pantoprazole per formulary interchange (4) Diastolic CHF: Continue furosemide. Chronic. Stable (5) COPD (chronic obstructive pulmonary disease): Continue Duonebs every 2 hours PRN (6) PRISCILA (obstructive sleep apnea): CPAP at at bedtime as needed (7) Gout: Monitor for potential flareup (8) Hypertension: Continue verapamil (9) Hypernatremia: Improved Disposition: Eventual discharge to home PT recs for HHPT, OT without further needs Admission and Anticipated Discharge Date Admission Date: October 19, 2020 Subjective Pt feels his LE swelling is much better today. He has been OOB to chair this AM, so he has the b/l LE purplish discoloration that he notes when he is not lying down. He states he did not really look closely at his legs this AM to note the regression from marker lines, but he felt it was definitely better last night. Pt denies fever, SOB, chest pain, abd pain, n/v/c/d, LE pain. Review of Systems Review of Systems: Pertinent positives and negatives reviewed in HPI--all others negative Physical Exam Constitutional: WD/WN, vitals as above Eyes: normal visual brown by confrontation and + anicteric sclerae Neck: normal visual inspection and trachea midline Respiratory: normal respiratory effort, lungs clear to auscultation Cardiovascular: Rate/Rhythm: regular rate and regular rhythm Extremities: + edema (LLE is improved to 1+, noted b/l) Gastrointestinal (Abdomen): Inspection/Auscultation: abdomen not distended Percussion/Palpation: abdomen soft; abdomen nontender Musculoskeletal: Head/Neck/Chest: normocephalic and head atraumatic Skin: + skin tightening and + erythema (b/l LE redness that is less than yesterday given pt is seated with feet up) Cannot assess regression from marker lines due to gravity dependent discoloration Neurologic: awake; not confused Speech / Cognition: normal speech Psychiatric: A+Ox3, euthymic affect Results & Data Results & Data ([facility]) Vital Signs (Past 12 Hours) Vital Signs Temp Pulse Resp BP Pulse Ox 10/22/20 08:02 36.4 C L 79 16 137/88 93 PG Care Time/CCT Total # of Minutes Spent Total Time Spent with Patient: Total time spent is greater than 50% in coordination of care (as documented) at patient's floor/unit and/or counseling patient: Coding Level of Care Code 28231 Subseq Hosp Care Lvl 3 Diagnoses Cellulitis of left lower extremity L03.116 Hypothyroidism E03.9 GERD (gastroesophageal reflux disease) K21.9 Diastolic CHF I50.30 COPD (chronic obstructive pulmonary disease) J44.9 PRISCILA (obstructive sleep apnea) G47.33 Gout M10.9 Hypertension I10 Hypernatremia E87.0
[2020-10-22] MEDS: cephALEXin 500 MG CAP PO SCH ×3 (13:49→20:47)
[2020-10-22] MEDS: VERAPAMIL HCL 180 MG TABCR PO SCH (20:47)
[2020-10-23] MEDS: LEVOTHYROXINE SODIUM 150 MCG TABLET PO SCH (05:46)
--- NOTE | 2020-10-23 07:54 | Discharge Summary ---
Date of Service October 23, 2020 Admission HPI Per Admitting Provider The patient is an 85-year-old male with a past medical history including overlap syndrome, hypothyroidism, GERD, pulmonary nodule, diastolic CHF, pneumonia, left lower extremity radiculopathy, chronic venous stasis dermatitis, COPD, PRISCILA, hypoalbuminemia, gout, periodic limb movement, gait disturbance, status post left partial knee replacement, spinal stenosis, osteoporosis, BPH, history of MRSA and hypertension. Patient presents with symptoms as noted above, that developed earlier in the day and worsened throughout the day and into the evening. He reports that he does wear compression socks routinely. He denies any recent trauma or travel. He has had a history of cellulitis in the past, but has never required hospitalization Principal Diagnosis cellulitis Discharge Exam Constitutional well developed and well nourished; no acute distress Eyes PERRL, conjunctivae normal, anicteric sclerae ENMT Mouth: oral mucous membranes not dry Respiratory normal respiratory effort; no respiratory distress and no labored breathing Auscultation: lungs clear to auscultation bilaterally; no crackles, no rales, no rhonchi and no wheezes Cardiovascular Rate/Rhythm: regular rate and regular rhythm Heart Sounds: no murmur and no cardiac rub Vessels: normal peripheral pulses and radial pulses present; no JVD Extremities: no edema Gastrointestinal (Abdomen) Inspection/Auscultation: abdomen normal to inspection and normal bowel sounds; abdomen not distended Percussion/Palpation: abdomen soft; abdomen nontender, no guarding, abdomen not rigid and no hepatosplenomegaly Musculoskeletal Head/Neck/Chest: normocephalic and head atraumatic Spine: no cervical spinal tenderness, no cervical muscular tenderness, no thoracic spinal tenderness and no lumbar spinal tenderness Skin no rashes, warm and dry Neurologic CN's II-XI intact bilaterally and moves all extremities Motor/Sensory: no tremor and no sensory deficit Psychiatric Orientation: alert, oriented to person, oriented to place and oriented to time Apperance: appropriately groomed; not disheveled Affect: euthymic affect; no anxious affect and no tearful affect Discharge Data Allergies Allergy/AdvReac Type Severity Reaction Status Date / Time clarithromycin Allergy Intermediate RASH Verified 10/18/20 23:49 Consultations 10/19/20 00:41 ED Decision to Admit Stat 10/19/20 03:08 Consult Case Management - Discharge Planning Routine Ordered Studies 10/18/20 23:05 US venous doppler LE LT Urgent Hospital Course (1) Cellulitis of left lower extremity: Cellulitis of left lower extremity/chronic venous stasis dermatitis- Started on vancomycin IV and Zosyn IV on admission, will d/c vanco (last dose 10/20 10am) given blood cx neg, d/c zosyn on 10/22 with last dose around 8a -> keflex QID for 7 more days after discharge Left lower extremity venous Doppler negative for DVT Continue furosemide 40 mg p.o. daily. Should likely f/u with [facility] on d/c. Pt has been active with them in the past Pt with chronic LE discoloration that appears gravity dependent. It is most marked when or after pt has been standing. Less severe with seated with LE propped. Resolves with lying down. Pt states he has been worked up for this with cardiology in the past and there is no clear reason for the skin color changes. Referral to outpatient infectious disease for discussion of prevention of cellulitis (2) Hypothyroidism: Continue levothyroxine sodium 50 mcg (3) GERD (gastroesophageal reflux disease): Change omeprazole to pantoprazole per formulary interchange (4) Diastolic CHF: Continue furosemide. Chronic. Stable (5) COPD (chronic obstructive pulmonary disease): Continue Duonebs every 2 hours PRN (6) PRISCILA (obstructive sleep apnea): CPAP at at bedtime as needed (7) Gout: Monitor for potential flareup (8) Hypertension: Continue verapamil (9) Hypernatremia: Improved Disposition: Eventual discharge to home PT recs for HHPT, OT without further needs Total Time Total Time Spent Total Time Spent (In Minutes): 40 Total Time Includes: Examination of the Patient, Discharge Planning, Medication Reconciliation and Communication With Other Providers Discharge Plan Discharge Items Patient Disposition: Home - Home Health Services Reason For Visit: LLE CELLULITIS Discharge Diagnosis: skin infection (cellulitis) Activity: Resume your previous activity Non-emergency contact: Primary Care Provider Call non-emergency contact if: you have any medication questions Follow-up/Referrals: Tyler Hawkins MD [Primary Care Provider] - Diet: Regular Addtl Attending Provider Instructions: Continue to take keflex 500mg four times per daily for a total of 7 days You can resume doxycycline after finishing the keflex See infectious disease physician for discussion of snf prevention of leg cellulitis We have faxed a referral to a local infectious disease physician who will be contacting you to make an appointment Pending Studies at Discharge: No Stand-Alone Forms: My [facility], Smoking Cessation Medications and DC Order Prescriptions: New cephalexin 500 mg Capsule 500 mg PO QID 7 Days Qty: 28 RF: 0 Continued ciclopirox 8 % solution 1 applic topical DAILY Qty: 6.6 RF: 2 (DME) Oxygen Home Liters Per Minute See Rx Instructions .ROUTE .MEDSUPPLY Qty: 1 RF: 0 ipratropium-albuterol 0.5 mg-3 mg(2.5 mg base)/3 mL solution for nebulization 3 ml INH QID PRN (Reason: shortness of breath) Qty: 1080 RF: 3 Prilosec OTC 20 mg tablet,delayed release (DR/EC) 20 mg PO QAM Qty: 90 RF: 3 potassium chloride 20 mEq tablet,ER particles/crystals 20 meq PO QAM Qty: 90 RF: 3 levothyroxine 150 mcg tablet 150 mcg PO QAM RF: 0 calcium carbonate-vitamin D3 [Calcium 500 With D] 500 mg(1,250mg) -400 unit Tablet 1 tab PO QAM RF: 0 Fiber (psyllium husk/sugar) 3.4 gram/11 gram Powder 1 tbsp PO DAILY RF: 0 verapamil 180 mg tablet extended release 180 mg PO HS RF: 0 Trelegy Ellipta 100-62.5-25 mcg blister with device 1 puffs INH DAILY RF: 0 furosemide 40 mg tablet 40 mg PO DAILY RF: 0 doxycycline hyclate 100 mg tablet 100 mg PO BID Qty: 60 RF: 3 magnesium 250 mg Tablet 250 mg PO DAILY RF: 0 albuterol sulfate 90 mcg/actuation Hfa Aerosol Inhaler 2 puff INHALATION QID PRN (Reason: Shortness Of Breath Or Wheezing) RF: 0 cholecalciferol (vitamin D3) 1,000 unit (25 mcg) tablet 1,000 units PO DAILY RF: 0 multivitamin Tablet 1 tab PO DAILY RF: 0 Discharge Orders: Discharge Order (Routine); Ordered 10/23/20 Ordered By: Jesusita Shetty Admission Data Admit Date/Time: 10/19/20 01:07 Attending Provider: Jesusita Shetty Admit Provider: Jimmie Baires Primary Care Provider: Tyler Hawkins Other Providers: Jimmie Baires Coding Level of Care Code D/C Day Management >30 mins Diagnoses Cellulitis of left lower extremity L03.116 Hypothyroidism E03.9 GERD (gastroesophageal reflux disease) K21.9 Diastolic CHF I50.30 COPD (chronic obstructive pulmonary disease) J44.9 PRISCILA (obstructive sleep apnea) G47.33 Gout M10.9 Hypertension I10 Hypernatremia E87.0
[2020-10-23] MEDS: CICLOPIROX~ORDER AWAITING ACTION SCH ×2 (08:05→13:43)
[2020-10-23 08:19] LABS: Hematocrit (blood only) 45.8 % (42-52); Mean Corpuscular Hemoglobin 29.8 pg (25-34); Mean Corpuscular Hgb Conc 32.8 g/dL (32-36); Mean Corpuscular Volume 91.1 fL (80-100); Platelet Count 264 K/uL (130-400); RDW Coefficient of Variation 14.6 % (11.5-14.5); RDW Standard Deviation 49.2 fL (36.4-46.3); Red Blood Count 5.03 M/uL (4.7-6.1); White Blood Count 9.46 K/uL (4.8-10.8)
[2020-10-23 08:50] LABS: BUN Creatinine Ratio 15.6 (10-20); Creatinine Clr Calc Pharmacy 53.8 ml/min; Est GFR (African American) 66.7; Est GFR (Non-African American) 57.5; Potassium 3.6 mmol/L (3.5-5.1)
[2020-10-23] MEDS: UMECLIDINIUM/VILANTEROL 62.5/25MCG 7 PUFFS/INHALER INH SCH (09:05)
[2020-10-23] MEDS: FLUTICASONE FUROATE 100MCG 14 PUFFS/INHALER INH SCH (09:05)
[2020-10-23] MEDS: cephALEXin 500 MG CAP PO SCH ×2 (09:05→13:43)
[2020-10-23] MEDS: ENOXAPARIN INJ 40 MG/0.4 ML SYR SQ SCH (09:06)
[2020-10-23] MEDS: MAGNESIUM OXIDE 400 MG TAB PO SCH (09:07)
[2020-10-23] MEDS: PANTOprazole 40 MG TAB PO SCH (09:07)
[2020-10-23] MEDS: POTASSIUM CHLORIDE CRTAB 20 MEQ TABCR PO SCH (09:07)
[2020-10-23] MEDS: MULTIVITAMIN TAB PO SCH (09:08)
[2020-10-23] MEDS: PSYLLIUM 58.6% POWDER PACKET PO SCH (09:08)
[2020-10-23] MEDS: CHOLECALCIFEROL 1,000 UNITS 25 MCG TAB PO SCH (09:08)
[2020-10-23] MEDS: CALCIUM 600MG + VIT D 400 IU TAB PO SCH (09:08)
[2020-10-23] MEDS: FUROSEMIDE 40 MG TAB PO SCH (09:57)
[2020-10-23] MEDS ORDERED: cephALEXin 250 MG CAP PO SCH (17:00)
== END 2020-10-23 14:30 | disposition home health service (06) | DRG 603 ==
LOC: ED 22:24 → SUATTDRO 10-19 01:07 → 3N 10-19 01:07

== ENCOUNTER 2021-01-16 08:54 | Inpatient (IN) ==
[2021-01-16 09:49] LABS: Hematocrit (blood only) 47.5 % (42-52); Mean Corpuscular Hemoglobin 30.7 pg (25-34); Mean Corpuscular Hgb Conc 33.7 g/dL (32-36); Mean Corpuscular Volume 91.2 fL (80-100); Mean Platelet Volume 12.6 fL (7.4-10.4); Platelet Count 214 K/uL (130-400); RDW Standard Deviation 50.3 fL (36.4-46.3); Red Blood Count 5.21 M/uL (4.7-6.1); White Blood Count 28.79 K/uL (4.8-10.8)
[2021-01-16] MEDS ORDERED: ACETAMINOPHEN 500 MG TAB PO STA (09:49)
--- NOTE | 2021-01-16 09:56 | XRay Report ---
XR chest 1V portable CLINICAL HISTORY: Dyspnea COMPARISON STUDY: Chest radiograph October 18, 2020. FINDINGS: There is no pneumothorax or pleural effusion. Lung volumes are diminished. Enlargement of t he cardiac silhouette is unchanged. There is underlying emphysema, better depicted on prior chest CT. Right mid and upper lung airspace opacity is present. IMPRESSION: 1. Right mid and upper lung airspace opacity which favors pneumonia. Asymmetric pulmonary edema could appear similar although is considered less likely. Radiographic follow-up is recommended. 2. Emphysema. ACT 112: Negative or not required by law. Electronically signed by: Conner Villalpando M.D. 01/16/2021 9:55 AM
[2021-01-16 09:57] LABS: Alanine Aminotransferase 26 U/L (12-78); Albumin Level 2.8 gm/dl (3.4-5.0); Aspartate Aminotransferase 18 U/L (15-37); BUN Creatinine Ratio 17.7 (10-20); Blood Urea Nitrogen 24 mg/dl (7-18); Calcium 9.2 mg/dl (8.5-10.1); Carbon Dioxide 21 mmol/L (21-32); Chloride 109 mmol/L (98-107); Creatinine Clr Calc Pharmacy 45.2 ml/min; Est GFR (Non-African American) 47.4; Glucose 104 mg/dl (70-99); Potassium 4.1 mmol/L (3.5-5.1); Sodium 139 mmol/L (136-145)
[2021-01-16 10:02] LABS: Albumin Globulin Ratio 0.6 (0.9-2); Alkaline Phosphatase 74 U/L (45-117); Bilirubin,Total 1.7 mg/dl (0.2-1); Globulin 4.5 gm/dl (2.5-4.0); NT Pro B Type Natriuretic Pept 557 pg/ml (0-1800); Total Protein 7.3 gm/dl (6.4-8.2); Troponin I < 0.015 ng/ml (0-0.045)
[2021-01-16 10:09] LABS: Basophils # (auto) 0.02 K/uL (0-0.2); Basophils % (auto) 0.1 %; Eosinophils # (auto) 0.04 K/uL (0-0.5); Eosinophils % (auto) 0.1 %; Immature Granulocytes # (auto) 0.13 K/uL (0.00-0.02); Immature Granulocytes % (auto) 0.5 %; Lymphocytes # (auto) 1.32 K/uL (1.2-3.4); Lymphocytes % (auto) 4.6 %; Monocytes # (auto) 1.93 K/uL (0.11-0.59); Monocytes % (auto) 6.7 %; Neutrophils # (auto) 25.35 K/uL (1.4-6.5)
[2021-01-16] MEDS ORDERED: CEFEPIME 2,000 MG/20 ML VIAL IV STA (10:15)
[2021-01-16] MEDS ORDERED: DOXYCYCLINE HYCLATE 100 MG in DEXTROSE 5% 100 ML IV STA (10:15)
[2021-01-16] MEDS ORDERED: SODIUM CHLORIDE 0.9% 1000ML 1,000 ML IV STA (10:15)
[2021-01-16 10:16] LABS: INR 1.1 (0.9-1.1); Partial Thromboplastin Ratio 1.2; Partial Thromboplastin Time 31.9 Seconds (21.0-31.0); Prothrombin Time 10.7 Seconds (9.0-12.0)
[2021-01-16] MEDS ORDERED: SODIUM CHLORIDE 0.9% 1000ML 500 ML IV ONE (10:16)
--- NOTE | 2021-01-16 10:20 | Emergency Department Note ---
Impression & Plan Pneumonia, SIRS (systemic inflammatory response syndrome), Leukocytosis ED Provider Note INFORMANT: Patient ED PROVIDER(S): Mark Rubio MD CHIEF COMPLAINT: Shortness of breath PLAN: Disposition: Admitted Condition: Good Outpatient prescription management: none Referral: None MEDICAL DECISION MAKING: Patient presented with a productive cough. He was febrile. Vital signs were co ncerning. Chest x-ray was concerning for pneumonia. Patient has a significant leukocytosis. He was given cefepime and doxycycline after blood cultures. Patient is a mild lactic acidosis. He was gently hydrated. Remainder of his laboratory testing was unremarkable. His ECG did show a moderate tachycardia. Consultation was made with the hospitalist service. The patient was evaluated in the ER and admitted for further management. Triage Nursing notes reviewed and agree them. Vital Signs: reviewed and remarkable for hypoxia, fever and tachycardia Differential diagnosis: Reactive airway disease, pneumonia, pneumothorax, COPD, CHF, infections, cardiac ischemia, pulmonary embolism, musculoskeletal, gastrointestinal, as well as other pathologies. Diagnostics interpreted by me: ECG: Twelve-lead ECG reveals sinus tachycardia with premature supraventricular complexes at 133 bpm. There is anterior Q waves. Left axis deviation. No ST elevation or depression. Cardiac Monitoring: Cardiac monitoring ordered by me: The patient was placed on continuous cardiac monitoring and observed. It revealed a sinus tachycardic rhythm at 117 beats per minute without evidence of dysrhythmia. Imaging studies: Chest x-ray performed and is concerning for right-sided infiltrates. I refer you to the EMR for further details. HPI: The patient is a 85 year old male who presents to the Emergency Room with complaints of shortness of breath. This started a few days ago and is worsening. The patient also notes the following associated symptoms, productive cough with yellow-green sputum, fever. The patient has found no relieving factors. Current pain is rated as 0/10. Patient denies any sick contacts. Has a history of pneumonia last fall. This feels similar. Pt denies LOC, headache, diaphoresis, visual changes, neck pain, chest pain, nausea, vomiting, abdominal pain, back pain, melena, hematochezia, urinary symptoms, numbness, weakness, lymphadenopathy, rash, or other complaints. ROS: See above HPI for pertinent positives & negatives. A total of 10 systems reviewed and were otherwise negative. PAST MEDICAL HISTORY:See Below , pneumonia, COPD PAST SURGICAL HISTORY:See Below, FAMILY HISTORY:See Below SOCIAL HISTORY:See Below, retired HOME MEDICATIONS:See Below ALLERGIES:See Below VITALS:See Below PHYSICAL EXAMINATION: GENERAL: Awake, alert, dyspneic-appearing, in no distress HENT: Normocephalic, atraumatic. Oropharynx unremarkable. EYES: Normal conjunctiva. Sclera non-icteric. NECK: Inspection normal. Non-tender. Supple. No nuchal rigidity. FROM. No masses. RESPIRATORY: Clear to auscultation. No wheezes. No rales. Normal respiratory effort. CARDIAC: Tachycardic rate. Normal rhythm. No murmurs. No rubs. Extremities warm and well perfused. Pulses equal. No JVD. GI: Soft, non-distended. No tenderness to palpation. No rebound or guarding. No masses. RECTAL: Deferred. MUSCULOSKELETAL: Atraumatic. Chest examination reveals no tenderness. The back is symmetrical on inspection without obvious abnormality. There is no CVA tend erness to palpation. No joint edema. LOWER EXTREMITIES: Calves are equal size bilaterally and non-tender. 2+ edema. NEURO: Normal sensorium. No sensory or motor deficits noted. SKIN: Warm to the touch no rash or jaundice noted. Mark Rubio MD Past Med/Surg History Medical History BPH (benign prostatic hyperplasia) Cellulitis of left leg Chronic obstructive pulmonary disease Diastolic CHF Fluid retention in legs GERD (gastroesophageal reflux disease) History of bronchitis History of cellulitis Hypertension Hypothyroidism Hypothyroidism (acquired) Left lumbar radiculopathy Leg length discrepancy Lumbar spinal stenosis On home oxygen therapy 02 2LPM AT HS Osteoarthritis Osteoporosis, unspecified Personal history of MRSA (methicillin resistant Staphylococcus aureus) Pulmonary nodule Sepsis Sleep apnea cpap Spinal stenosis Urethral stricture Vitamin D deficiency Surgical History History of cardiac cath 12/2019 - [place] - increased edema - no stents/angioplasty History of cholecystectomy History of colonoscopy History of herniorrhaphy left inguinal History of partial knee replacement left History of tonsillectomy History of tooth extraction Hx of surgical procedure LEFT FEMUR FX WITH REPAIR Family History Mother Cerebral atherosclerosis Father Diverticulosis Other No significant family history Denies family history of Ovarian cancer Prostate cancer Myocardial infarction Breast cancer Colorectal cancer Social History Smoking Status: Former smoker Tobacco Type: Cigarettes packs per day: 1; Years Smoked: 40; Cigarettes Per Day: 20; Number of Years Since Quit: 14; Second Hand Exposure: No; Hx Alcohol Use: Yes Alcohol type: beer Hx Substance Use: No Preferred Language: Estonian Communication Ability: Effective Visual Impairment: No Limitations Hearing Ability: Normal Premium Representative Required: No Beliefs That Will Affect Care: None marital status: Current Living Situation: Spouse current occupational status: retired Other Information That Helps Us Care for You: No Feels Safe at Home: Yes Safety Concerns: Feels Safe At This Time Dental Care, Regularly: No Physical Activity Frequency: 1-2 Times per Week Seatbelt Use: always Sunscreen Use: Yes Assistive Devices: Cane, CPAP, Denture - Upper, Denture - Lower, Glasses and Walker Allergies Allergies Allergy/AdvReac Type Severity Reaction Status Date / Time clarithromycin Allergy Intermediate RASH Verified 01/16/21 11:09 Home Meds Home Medications Medication Instructions Recorded Confirmed magnesium 250 mg PO 3XWK 08/02/18 01/16/21 cholecalciferol (vitamin D3) 25 1,000 units PO QAM tab 05/30/19 01/16/21 mcg (1,000 unit) tablet Oxygen Home #1 ea 08/17/19 01/16/21 levothyroxine 150 mcg PO QAM 05/07/20 01/16/21 Fiber (psyllium husk-sugar) 1 tbsp PO QAM 06/22/20 01/16/21 calcium carbonate-vitamin D3 1 tab PO QAM 06/22/20 01/16/21 [Calcium 500 With D] furosemide 40 mg PO QAM 06/22/20 01/16/21 multivitamin 1 tab PO QAM tab 09/04/20 01/16/21 [id number] 1 inh INH QAM 01/16/21 01/16/21 [Trelegy Ellipta] Previous Rx's Medication Instructions Recorded ipratropium 0.5 mg-albuterol 3 mg 3 ml INH QID PRN #1080 ml 12/04/19 (2.5 mg base)/3 mL nebulization soln ciclopirox 8 % topical solution 1 applic TOPICAL DAILY #6.6 ml 06/12/20 omeprazole magnesium 20 mg 20 mg PO QAM #90 tab 10/29/20 tablet,delayed release potassium chloride 20 mEq 20 meq PO QAM #90 tab 10/29/20 tablet,extended release(part/cryst) albuterol sulfate 90 mcg/actuation 2 puff INHALATION Q4H PRN #8.5 g 10/30/20 aerosol inhaler verapamil 180 mg tablet,extended 180 mg PO HS #90 tab 12/27/20 release Results & Data (ED) Vital Signs Vital Signs - 24 hr 01/16/21 09:09 01/16/21 09:17 01/16/21 09:30 Temperature 37.7 C H Temperature Source Oral Pulse Rate 117 H 110 H Pulse Rate from SpO2 Sensor 125 H Respiratory Rate 24 34 H Respiratory Effort / Characteristics Spontaneous Labored Respiratory Depth Normal Respiratory Pattern Regular Blood Pressure 118/67 126/87 Blood Pressure Mean 84 100 Pulse Oximetry 89 L 87 L 96 Oxygen Delivery Method Room Air Nasal Cannula Oxygen Flow Rate 2 Sepsis Recent Fever Within 48 Hours No Sepsis New/Unexplained Change in Mental Status N/A Sepsis Action Taken by Nursing No Action Required Oxygen Flow Rate - Titration 2 Pulse Oximetry Post Tiitration 95 01/16/21 09:39 01/16/21 09:53 01/16/21 10:09 Temperature Temperature Source Pulse Rate 134 H 131 H Pulse Rate from SpO2 Sensor 112 H 124 H Respiratory Rate 23 21 Respiratory Effort / Characteristics Respiratory Depth Respiratory Pattern Blood Pressure 135/102 H 145/87 H Blood Pressure Mean 113 106 Pulse Oximetry 96 97 95 Oxygen Delivery Method Nasal Cannula Oxygen Flow Rate 2 2 2 Sepsis Recent Fever Within 48 Hours Sepsis New/Unexplained Change in Mental Status Sepsis Action Taken by Nursing Oxygen Flow Rate - Titration Pulse Oximetry Post Tiitration 01/16/21 10:30 01/16/21 11:00 01/16/21 11:30 Temperature Temperature Source Pulse Rate 115 H 111 H 103 H Pulse Rate from SpO2 Sensor 125 H 103 H 116 H Respiratory Rate 30 H 24 24 Respiratory Effort / Characteristics Respiratory Depth Respiratory Pattern Blood Pressure 122/86 130/76 122/89 Blood Pressure Mean 98 94 100 Pulse Oximetry 91 96 98 Oxygen Delivery Method Oxygen Flow Rate 2 3 3 Sepsis Recent Fever Within 48 Hours Sepsis New/Unexplained Change in Mental Status Sepsis Action Taken by Nursing Oxygen Flow Rate - Titration Pulse Oximetry Post Tiitration 01/16/21 12:00 01/16/21 13:00 Temperature Temperature Source Pulse Rate 90 87 Pulse Rate from SpO2 Sensor 113 H 112 H Respiratory Rate 24 24 Respiratory Effort / Characteristics Respiratory Depth Respiratory Pattern Blood Pressure 114/93 124/77 Blood Pressure Mean 100 92 Pulse Oximetry 99 96 Oxygen Delivery Method Oxygen Flow Rate 3 3 Sepsis Recent Fever Within 48 Hours Sepsis New/Unexplained Change in Mental Status Sepsis Action Taken by Nursing Oxygen Flow Rate - Titration Pulse Oximetry Post Tiitration Laboratory Data Result diagrams: 01/16/21 09:00 01/16/21 09:00 Lab Results 01/16/21 01/16/21 01/16/21 Range/Units 09:00 09:00 09:00 WBC 28.79 H (4.8-10.8) K/uL RBC 5.21 (4.7-6.1) M/uL Hgb 16.0 (14.0-18.0) g/dL Hct 47.5 (42-52) % MCV 91.2 (80-100) fL MCH 30.7 (25-34) pg MCHC 33.7 (32-36) g/dL RDW Std Deviation 50.3 H (36.4-46.3) fL RDW Coeff of [place] 15.0 H (11.5-14.5) % Plt Count 214 (130-400) K/uL MPV 12.6 H (7.4-10.4) fL Immature Gran % (Auto) 0.5 % Neut % (Auto) 88.0 % Lymph % (Auto) 4.6 % [place] % (Auto) 6.7 % Eos % (Auto) 0.1 % Baso % (Auto) 0.1 % Neut # (Auto) 25.35 H (1.4-6.5) K/uL Lymph # (Auto) 1.32 (1.2-3.4) K/uL [place] # (Auto) 1.93 H (0.11-0.59) K/uL Eos # (Auto) 0.04 (0-0.5) K/uL Baso # (Auto) 0.02 (0-0.2) K/uL Immature Gran # (Auto) 0.13 H (0.00-0.02) K/uL PT 10.7 (9.0-12.0) Seconds INR 1.1 (0.9-1.1) APTT 31.9 H (21.0-31.0) Seconds PTT Ratio 1.2 Sodium 139 (136-145) mmol/L Potassium 4.1 (3.5-5.1) mmol/L Chloride 109 H (98-107) mmol/L Carbon Dioxide 21 (21-32) mmol/L Anion Gap 10.0 (3-11) BUN 24 H (7-18) mg/dl Creatinine 1.36 (0.6-1.4) mg/dl Est Cr Clr Drug Dosing 45.2 ml/min Est GFR ( Amer) 55.0 Est GFR (Non-Af Amer) 47.4 BUN/Creatinine Ratio 17.7 (10-20) Glucose 104 H (70-99) mg/dl Lactate (0.4-2.0) mmol/L Calcium 9.2 (8.5-10.1) mg/dl Total Bilirubin 1.7 H (0.2-1) mg/dl AST 18 (15-37) U/L ALT 26 (12-78) U/L Alkaline Phosphatase 74 (45-117) U/L Troponin I < 0.015 (0-0.045) ng/ml NT-Pro-B Natriuret Pep 557 (0-1800) pg/ml Total Protein 7.3 (6.4-8.2) gm/dl Albumin 2.8 L (3.4-5.0) gm/dl Globulin 4.5 H (2.5-4.0) gm/dl Albumin/Globulin Ratio 0.6 L (0.9-2) COVID-19 Eval Order SARS-CoV-2 (PCR) (Negative) Influenza Type A (PCR) (Neg) Influenza Type B (PCR) (Neg) RSV (RT-PCR) (Neg) 01/16/21 01/16/21 01/16/21 Range/Units 09:48 09:48 10:05 WBC (4.8-10.8) K/uL RBC (4.7-6.1) M/uL Hgb (14.0-18.0) g/dL Hct (42-52) % MCV (80-100) fL MCH (25-34) pg MCHC (32-36) g/dL RDW Std Deviation (36.4-46.3) fL RDW Coeff of [place] (11.5-14.5) % Plt Count (130-400) K/uL MPV (7.4-10.4) fL Immature Gran % (Auto) % Neut % (Auto) % Lymph % (Auto) % [place] % (Auto) % Eos % (Auto) % Baso % (Auto) % Neut # (Auto) (1.4-6.5) K/uL Lymph # (Auto) (1.2-3.4) K/uL [place] # (Auto) (0.11-0.59) K/uL Eos # (Auto) (0-0.5) K/uL Baso # (Auto) (0-0.2) K/uL Immature Gran # (Auto) (0.00-0.02) K/uL PT (9.0-12.0) Seconds INR (0.9-1.1) APTT (21.0-31.0) Seconds PTT Ratio Sodium (136-145) mmol/L Potassium (3.5-5.1) mmol/L Chloride (98-107) mmol/L Carbon Dioxide (21-32) mmol/L Anion Gap (3-11) BUN (7-18) mg/dl Creatinine (0.6-1.4) mg/dl Est Cr Clr Drug Dosing ml/min Est GFR ( Amer) Est GFR (Non-Af Amer) BUN/Creatinine Ratio (10-20) Glucose (70-99) mg/dl Lactate 2.5 H* (0.4-2.0) mmol/L Calcium (8.5-10.1) mg/dl Total Bilirubin (0.2-1) mg/dl AST (15-37) U/L ALT (12-78) U/L Alkaline Phosphatase (45-117) U/L Troponin I (0-0.045) ng/ml NT-Pro-B Natriuret Pep (0-1800) pg/ml Total Protein (6.4-8.2) gm/dl Albumin (3.4-5.0) gm/dl Globulin (2.5-4.0) gm/dl Albumin/Globulin Ratio (0.9-2) COVID-19 Eval Order CovFluRsv at [facility] SARS-CoV-2 (PCR) NEGATIVE (Negative) Influenza Type A (PCR) Negative (Neg) Influenza Type B (PCR) Negative (Neg) RSV (RT-PCR) Negative (Neg) 01/16/21 Range/Units 12:13 WBC (4.8-10.8) K/uL RBC (4.7-6.1) M/uL Hgb (14.0-18.0) g/dL Hct (42-52) % MCV (80-100) fL MCH (25-34) pg MCHC (32-36) g/dL RDW Std Deviation (36.4-46.3) fL RDW Coeff of [place] (11.5-14.5) % Plt Count (130-400) K/uL MPV (7.4-10.4) fL Immature Gran % (Auto) % Neut % (Auto) % Lymph % (Auto) % [place] % (Auto) % Eos % (Auto) % Baso % (Auto) % Neut # (Auto) (1.4-6.5) K/uL Lymph # (Auto) (1.2-3.4) K/uL [place] # (Auto) (0.11-0.59) K/uL Eos # (Auto) (0-0.5) K/uL Baso # (Auto) (0-0.2) K/uL Immature Gran # (Auto) (0.00-0.02) K/uL PT (9.0-12.0) Seconds INR (0.9-1.1) APTT (21.0-31.0) Seconds PTT Ratio Sodium (136-145) mmol/L Potassium (3.5-5.1) mmol/L Chloride (98-107) mmol/L Carbon Dioxide (21-32) mmol/L Anion Gap (3-11) BUN (7-18) mg/dl Creatinine (0.6-1.4) mg/dl Est Cr Clr Drug Dosing ml/min Est GFR ( Amer) Est GFR (Non-Af Amer) BUN/Creatinine Ratio (10-20) Glucose (70-99) mg/dl Lactate 1.2 (0.4-2.0) mmol/L Calcium (8.5-10.1) mg/dl Total Bilirubin (0.2-1) mg/dl AST (15-37) U/L ALT (12-78) U/L Alkaline Phosphatase (45-117) U/L Troponin I (0-0.045) ng/ml NT-Pro-B Natriuret Pep (0-1800) pg/ml Total Protein (6.4-8.2) gm/dl Albumin (3.4-5.0) gm/dl Globulin (2.5-4.0) gm/dl Albumin/Globulin Ratio (0.9-2) COVID-19 Eval Order SARS-CoV-2 (PCR) (Negative) Influenza Type A (PCR) (Neg) Influenza Type B (PCR) (Neg) RSV (RT-PCR) (Neg) Administered Medications Albuterol (Albut/Ipratrop 3mg/0.5mg Neb 3 Ml Vial) 3 ml INH QID PRN PRN Reason: shortness of breath Stop: 02/15/21 15:08 Last Admin: 01/16/21 16:09 Dose: 3 ml Documented by: [id number] Enoxaparin Sodium (Enoxaparin Inj 40 Mg/0.4 Ml Syr) 40 mg SQ Q24H ROSE Stop: 02/15/21 15:08 Last Admin: 01/16/21 16:54 Dose: 40 mg Documented by: [id number] Discontinued Medications Acetaminophen (Acetaminophen 500 Mg Tab) 1,000 mg PO NOW STA Stop: 01/16/21 09:50 Last Admin: 01/16/21 10:11 Dose: 1,000 mg Documented by: [id number] Sodium Chloride (Nss 1000ml) 1,000 mls @ 125 mls/hr IV .Q8H STA Stop: 01/16/21 18:14 Last Admin: 01/16/21 12:15 Dose: 125 mls/hr Documented by: [id number] Cefepime HCl (Maxipime) 2,000 mg in 20 mls @ 5 mls/min IV NOW STA; Protocol Stop: 01/16/21 10:18 Last Admin: 01/16/21 11:03 Dose: 5 mls/min Documented by: [id number] Doxycycline Hyclate 100 mg/ (Dextrose) 110 mls @ 50 mls/hr IV NOW STA Stop: 01/16/21 12:26 Last Infusion: 01/16/21 15:10 Dose: 0 mls/hr Documented by: [id number] Admin: 01/16/21 11:03 Dose: 50 mls/hr Documented by: [id number] Sodium Chloride (Nss 1000ml) 500 mls @ 999 mls/hr IV .Q31M ONE Stop: 01/16/21 10:46 Last Infusion: 01/16/21 15:10 Dose: 0 mls/hr Documented by: [id number] Admin: 01/16/21 11:03 Dose: 999 mls/hr Documented by: [id number] Imaging Data Radiologist's Impression: Chest X-Ray 01/16/21 09:36 XR chest 1V portable CLINICAL HISTORY: Dyspnea COMPARISON STUDY: Chest radiograph October 18, 2020. FINDINGS: There is no pneumothorax or pleural effusion. Lung volumes are diminished. Enlargement of the cardiac silhouette is unchanged. There is underlying emphysema, better depicted on prior chest CT. Right mid and upper lung airspace opacity is present. IMPRESSION: 1. Right mid and upper lung airspace opacity which favors pneumonia. Asymmetric pulmonary edema could appear similar although is considered less likely. Radiographic follow-up is recommended. 2. Emphysema. ACT 112: Negative or not required by law. Electronically signed by: Conner Villalpando M.D. 01/16/2021 9:55 AM Discharge Plan Visit Data Chief Complaint: Shortness of Breath/Dyspnea ED Provider: Mark Rubio Discharge Problem: Pneumonia, SIRS (systemic inflammatory response syndrome), Leukocytosis Patient Disposition: Admitted As Inpatient Discharge Instructions Interventions: ED Discharge Assessment Last Done: 01/16/21 14:35 Discharge Problem: Pneumonia Qualifiers: Pneumonia type: due to unspecified organism Laterality: right Lung location: unspecified part of lung Qualified Code(s): J18.9 - Pneumonia, unspecified organism Leukocytosis Qualifiers: Leukocytosis type: bandemia Qualified Code(s): D72.825 - Bandemia
--- NOTE | 2021-01-16 11:29 | Electrocardiogram Report ---
Test Reason : Blood Pressure : / mmHG Vent. 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
[2021-01-16 12:00] LABS: Influenza A virus by PCR Negative (Neg); Influenza B virus by PCR Negative (Neg); RSV by PCR Negative (Neg); SARS CoV2 RNA(COVID-19) InHosp NEGATIVE (Negative)
--- NOTE | 2021-01-16 12:40 | History & Physical Report ---
Date of Service January 16, 2021 Assessment & Plan (1) Pneumonia: With Sepsis Right middle and upper lobe pneumonia with productive green sputum, elevated WBC, and increase in oxygen on arrival - SIRS 3 QSofa- 1, Lactate 1.2- received 1L 0.9% saline in the ER with excellent response to sepsis on presentation - Mild increase in BUN and APTT - no evidence of further organ dysfunction - PORT score 104 Class IV after treatment - Continue Cefepime and Doxycycline- atypical and MRSA adequate - Sputum culture pending - blood culture pending - Can add steroids if patient respiratory status changes - No pleural effusion noted on XRay (2) Leukocytosis: Leukocytosis noted to 28 with predominant neutrophil of 25- was similar response to his previous PNA - favoring leukemoid reaction- recheck in the morning and if remains elevated will get peripheral smear - rest of cell lineage is normal (3) COPD (chronic obstructive pulmonary disease): Patient with overlap syndrome with COPD and Asthma componenet, with chronic respiratory failure with hypoxia, wears 2L with CPAP qhs - Continue Albuterol 2 Puff q6 scheduled for 24 hours - Continue Trelegy 1 puff daily - Continue Combivent nebs QID PRN - Continue home oxygen - Goal SPO2 88-92% (4) PRISCILA (obstructive sleep apnea): No acute needs - CPAP at night 4CM H20 or titrate to comfort and adequate VT (5) Diastolic CHF: No acute decompensation at this time - Appears slightly hypovolemic on exam - Continue lasix 40 mg daily- should be adequalty resuscitated by morning - Continue Verapamil (6) Hypertension: As above - Keep MAPS >65 - Continue medications as long as euvolemic and perfusion indices remain normal (7) Hypothyroidism: No acute needs - continue Synthroid (8) GERD (gastroesophageal reflux disease): Continue Omeprazole 20 daily - no acute needs (9) PVD (peripheral vascular disease): Chronic venous insufficiency with dermatitis and cellulitis in the past - He has venostasis changes to his legs but no open areas or signs of infection from this standpoint - He is wearing his compression hose- not prescription strength - Continue those with SCD's - He just received his SCD machine for home use yesterday but has not used it (10) MRSA (methicillin resistant Staphylococcus aureus): MRSA swab 07/03 positive - no repeat screening available - will resend nasal swab - contact precautions - blood and sputum cultures pending (11) Pulmonary nodule: The patient had a new nodule identified in June. Following with pulmonary, with planned repeat CT scan in 6 months which should have been in December -could consider getting CT Chest here (12) Osteoporosis, unspecified: No acute needs continue with Calcium Lisa D (13) DVT prophylaxis: Lovenox SQ, SCDs, TEDs Dispo-admit to med/surg History of Present Illness Chief Complaint: cough, fever, chills Primary Care Provider: Tyler Hawkins MD 85 YOM with past medical history of COPD, PRISCILA(CPAP 4), hypothyroidism, hfPref, HTN, GERD, PVD with chronic dermatitis, BPH, pulmonary nodule, pneumonia, gout, left partial knee replacement, spinal stenosis with osteopetrosis, MRSA history. Patient comes to the emergency room today after feeling fevers and chills on Thursday that progressed to cough and shortness of breath. The patient endorses that he started coughing up green colored sputum at that time. He started having more fevers and chills through Thursday and as above progressed through Thursday. In the ER he was tachypneic, tachycardic, and with SPO2 of 89. He is on home oxygen for COPD/PRISCILA only at nighttime. He had blood cultures drawn, was started on Cefepime and Doxycycline in the ER and given 1L 0.9% saline. He has responded well to IV antibiotics and resuscitation, with HR 90, stabilized RR in the 20s with SPO2 99%, no rigors, and is not conversationally dyspneic. Will send repeat MRSA swab as last one in May-Jun was positive. He will be admitted to medical surgical floor for antibiotic therapy. Patient has previously been on doxycycline for 1 month for chronic cellulitis of his bilateral feet, and recently doxy and Augmentin for left jaw pain/infection by his PCP. Currently no need to change therapy but will follow his response. Allergies Allergy/AdvReac Type Severity Reaction Status Date / Time clarithromycin Allergy Intermediate RASH Verified 01/16/21 11:09 Home Medications Medication Instructions Recorded Confirmed Type magnesium 250 mg PO 3XWK 08/02/18 01/16/21 History cholecalciferol (vitamin D3) 25 1,000 units PO QAM tab 05/30/19 01/16/21 History mcg (1,000 unit) tablet Oxygen Home #1 ea 08/17/19 01/16/21 History ipratropium 0.5 mg-albuterol 3 mg 3 ml INH QID PRN #1080 ml 08/17/19 01/16/21 Rx (2.5 mg base)/3 mL nebulization soln levothyroxine 150 mcg PO QAM 05/07/20 01/16/21 History ciclopirox 8 % topical solution 1 applic TOPICAL DAILY #6.6 ml 06/12/20 01/16/21 Rx Fiber (psyllium husk-sugar) 1 tbsp PO QAM 06/22/20 01/16/21 History calcium carbonate-vitamin D3 1 tab PO QAM 06/22/20 01/16/21 History [Calcium 500 With D] furosemide 40 mg PO QAM 06/22/20 01/16/21 History multivitamin 1 tab PO QAM tab 09/04/20 01/16/21 History omeprazole magnesium 20 mg 20 mg PO QAM #90 tab 10/29/20 01/16/21 Rx tablet,delayed release potassium chloride 20 mEq 20 meq PO QAM #90 tab 10/29/20 01/16/21 Rx tablet,extended release(part/cryst) albuterol sulfate 90 mcg/actuation 2 puff INHALATION Q4H PRN #8.5 g 10/30/20 01/16/21 Rx aerosol inhaler verapamil 180 mg tablet,extended 180 mg PO HS #90 tab 12/27/20 01/16/21 Rx release phkebjeosgh-dvcuzqxen-gieqanbu 1 inh INH QAM 01/16/21 01/16/21 History [Shazia Kimball] Past Med/Surg History Medical History BPH (benign prostatic hyperplasia) Cellulitis of left leg Chronic obstructive pulmonary disease Diastolic CHF Fluid retention in legs GERD (gastroesophageal reflux disease) History of bronchitis History of cellulitis Hypertension Hypothyroidism Hypothyroidism (acquired) Left lumbar radiculopathy Leg length discrepancy Lumbar spinal stenosis On home oxygen therapy 02 2LPM AT HS Osteoarthritis Osteoporosis, unspecified Personal history of MRSA (methicillin resistant Staphylococcus aureus) Pulmonary nodule Sepsis Sleep apnea cpap Spinal stenosis Urethral stricture Vitamin D deficiency Surgical History History of cardiac cath 12/2019 - [place] - increased edema - no stents/angioplasty History of cholecystectomy History of colonoscopy History of herniorrhaphy left inguinal History of partial knee replacement left History of tonsillectomy History of tooth extraction Hx of surgical procedure LEFT FEMUR FX WITH REPAIR Family History Mother Cerebral atherosclerosis Father Diverticulosis Other No significant family history Denies family history of Ovarian cancer Prostate cancer Myocardial infarction Breast cancer Colorectal cancer Social History Smoking Status: Former smoker Tobacco Type: Cigarettes packs per day: 1; Years Smoked: 40; Cigarettes Per Day: 20; Number of Years Since Quit: 14; Second Hand Exposure: No; Hx Alcohol Use: Yes Alcohol type: beer Hx Substance Use: No Preferred Language: Italian Communication Ability: Effective Visual Impairment: No Limitations Hearing Ability: Normal Electronic 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 Required: No Beliefs That Will Affect Care: None marital status: Current Living Situation: Spouse current occupational status: retired Other Information That Helps Us Care for You: No Feels Safe at Home: Yes Safety Concerns: Feels Safe At This Time Dental Care, Regularly: No Physical Activity Frequency: 1-2 Times per Week Seatbelt Use: always Sunscreen Use: Yes Assistive Devices: Cane, CPAP, Denture - Upper, Denture - Lower, Glasses and Walker Review of Systems Review of Systems: REVIEW OF SYSTEMS: Constitutional: (+) fever, sweats or chills Eyes: No diplopia, no worsening or blurred vision ENT: (+) difficulty hearing, no trouble swallowing Respiratory: (+) cough, sputum, dyspnea at rest or on exertion Cardiovascular: No chest pain, tightness or palpitations Abdomen: No pain, nausea, vomiting, diarrhea or constipation Musculoskeletal: No joint pain, calf pain, swelling Neurologic: No weakness, numbness/tingling, or balance problems Psychiatric: No anxiety or depression Skin: venous rubor to mid calf, no rash or itch Physical Exam Physical Exam: PHYSICAL EXAM: General: awake, alert, no apparent distress Head: Normocephalic, atraumatic ENT: PERRLA, EOMI, no pharyngeal exudate, mucous membranes moist Neuro: AAO x 3, speech clear and appropriate, strength intact bilaterally 5/5, sensation intact and equal all extremities and dermatomes, no pronator drift Chest: equal rise and fall of the chest, no accessory muscle use, no heaves or thrills, Rhonchi throughout with egophony right > left on auscultation, on 2lNC, Cardiac: Regular rate and rhythm, telemetry reviewed, skin warm dry, cap refill <3 seconds, peripheral pulses +2 no JVD, no murmur. +2 edema to lower bilateral extremities GI: NABS x 4 quadrants, soft, nontender to palpation, no rebound, guarding or tenderness : Spontaneously voiding, no pain, no CVA tenderness, Extremities: Normal inspection, no peripheral edema or erythema, calfs nontender to palpation Psych: Normal mood and affect Skin: no rash or erythema Results & Data Results & Data ([facility]) Vital Signs (Past 12 Hours) Vital Signs Temp Pulse Resp BP Pulse Ox 01/16/21 12:00 90 24 114/93 99 01/16/21 11:30 103 H 24 122/89 98 01/16/21 11:00 111 H 24 130/76 96 01/16/21 10:30 115 H 30 H 122/86 91 01/16/21 10:09 131 H 21 145/87 H 95 01/16/21 09:53 134 H 23 135/102 H 97 01/16/21 09:39 96 01/16/21 09:30 110 H 34 H 126/87 96 01/16/21 09:17 87 L 01/16/21 09:09 37.7 C H 117 H 24 118/67 89 L Laboratory Results Abnormal lab results 01/16/21 01/16/21 01/16/21 Range/Units 09:00 09:00 09:00 WBC 28.79 H (4.8-10.8) K/uL RDW Std Deviation 50.3 H (36.4-46.3) fL RDW Coeff of Jordan 15.0 H (11.5-14.5) % MPV 12.6 H (7.4-10.4) fL Neut # (Auto) 25.35 H (1.4-6.5) K/uL Aurora # (Auto) 1.93 H (0.11-0.59) K/uL Immature Gran # (Auto) 0.13 H (0.00-0.02) K/uL APTT 31.9 H (21.0-31.0) Seconds Chloride 109 H (98-107) mmol/L BUN 24 H (7-18) mg/dl Glucose 104 H (70-99) mg/dl Lactate (0.4-2.0) mmol/L Total Bilirubin 1.7 H (0.2-1) mg/dl Albumin 2.8 L (3.4-5.0) gm/dl Globulin 4.5 H (2.5-4.0) gm/dl Albumin/Globulin Ratio 0.6 L (0.9-2) 01/16/21 Range/Units 10:05 WBC (4.8-10.8) K/uL RDW Std Deviation (36.4-46.3) fL RDW Coeff of Jordan (11.5-14.5) % MPV (7.4-10.4) fL Neut # (Auto) (1.4-6.5) K/uL Aurora # (Auto) (0.11-0.59) K/uL Immature Gran # (Auto) (0.00-0.02) K/uL APTT (21.0-31.0) Seconds Chloride (98-107) mmol/L BUN (7-18) mg/dl Glucose (70-99) mg/dl Lactate 2.5 H* (0.4-2.0) mmol/L Total Bilirubin (0.2-1) mg/dl Albumin (3.4-5.0) gm/dl Globulin (2.5-4.0) gm/dl Albumin/Globulin Ratio (0.9-2) Diagnostic Findings Chest X-Ray 01/16/21 09:36 XR chest 1V portable CLINICAL HISTORY: Dyspnea COMPARISON STUDY: Chest radiograph October 18, 2020. FINDINGS: There is no pneumothorax or pleural effusion. Lung volumes are diminished. Enlargement of the cardiac silhouette is unchanged. There is underlying emphysema, better depicted on prior chest CT. Right mid and upper lung airspace opacity is present. IMPRESSION: 1. Right mid and upper lung airspace opacity which favors pneumonia. Asymmetric pulmonary edema could appear similar although is considered less likely. Radiographic follow-up is recommended. 2. Emphysema. Electronically signed by: Conner Villalpando M.D. 01/16/2021 9:55 AM Medications Administered Sodium Chloride (Nss 1000ml) 1,000 mls @ 125 mls/hr IV .Q8H STA Stop: 01/16/21 18:14 Last Admin: 01/16/21 12:15 Dose: 125 mls/hr Documented by: [id number] Discontinued Medications Acetaminophen (Acetaminophen 500 Mg Tab) 1,000 mg PO NOW STA Stop: 01/16/21 09:50 Last Admin: 01/16/21 10:11 Dose: 1,000 mg Documented by: [id number] Cefepime HCl (Maxipime) 2,000 mg in 20 mls @ 5 mls/min IV NOW STA; Protocol Stop: 01/16/21 10:18 Last Admin: 01/16/21 11:03 Dose: 5 mls/min Documented by: [id number] Doxycycline Hyclate 100 mg/ (Dextrose) 110 mls @ 50 mls/hr IV NOW STA Stop: 01/16/21 12:26 Last Admin: 01/16/21 11:03 Dose: 50 mls/hr Documented by: [id number] Sodium Chloride (Nss 1000ml) 500 mls @ 999 mls/hr IV .Q31M ONE Stop: 01/16/21 10:46 Last Admin: 01/16/21 11:03 Dose: 999 mls/hr Documented by: [id number] Home Medications magnesium 250 mg PO 3XWK 08/02/18 [History Confirmed 01/16/21] cholecalciferol (vitamin D3) 25 mcg (1,000 unit) tablet 1,000 units PO QAM tab 05/30/19 [History Confirmed 01/16/21] Oxygen Home #1 ea 08/17/19 [History Confirmed 01/16/21] ipratropium 0.5 mg-albuterol 3 mg (2.5 mg base)/3 mL nebulization soln 3 ml INH QID PRN #1080 ml 08/17/19 [Rx Confirmed 01/16/21] levothyroxine 150 mcg PO QAM 05/07/20 [History Confirmed 01/16/21] ciclopirox 8 % topical solution 1 applic TOPICAL DAILY #6.6 ml 06/12/20 [Rx Confirmed 01/16/21] Fiber (psyllium husk-sugar) 1 tbsp PO QAM 06/22/20 [History Confirmed 01/16/21] calcium carbonate-vitamin D3 [Calcium 500 With D] 1 tab PO QAM 06/22/20 [History Confirmed 01/16/21] furosemide 40 mg PO QAM 06/22/20 [History Confirmed 01/16/21] multivitamin 1 tab PO QAM tab 09/04/20 [History Confirmed 01/16/21] omeprazole magnesium 20 mg tablet,delayed release 20 mg PO QAM #90 tab 10/29/20 [Rx Confirmed 01/16/21] potassium chloride 20 mEq tablet,extended release(part/cryst) 20 meq PO QAM #90 tab 10/29/20 [Rx Confirmed 01/16/21] albuterol sulfate 90 mcg/actuation aerosol inhaler 2 puff INHALATION Q4H PRN #8.5 g 10/30/20 [Rx Confirmed 01/16/21] verapamil 180 mg tablet,extended release 180 mg PO HS #90 tab 12/27/20 [Rx Confirmed 01/16/21] cmyzmsobsue-gkmqmbctx-rilwfmlp [Trelegy Ellipta] 1 inh INH QAM 01/16/21 [History Confirmed 01/16/21] Active Medications Sodium Chloride (Nss 1000ml) 1,000 mls @ 125 mls/hr IV .Q8H STA Stop: 01/16/21 18:14 Last Admin: 01/16/21 12:15 Dose: 125 mls/hr Documented by: ECG Additional Comments: Vent. 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) Abnormal ECG When compared with ECG of 18-OCT-2020 23:32, No significant change was found Confirmed by Refugio Lynch ([id number]) on 01/16/2021 11:28:55 AM Code Status & VTE Plan Code Status CODE: FULL VTE: SCD's, TEDs, Lovenox 40 daily VTE Prophylaxis Plan VTE Prophylaxis will be ordered: Yes Supervising Physician Co-Signing Physician Notes AIDE Supervision note: I have personally seen and examined the patient and discussed and verified the huerta points of the history and physical along with the plan with AIDE Lee with the following exceptions and/or additions: Pt here with increasing cough and sputum production, SOB, headache and fevers at home for 4-5 days, found ot have RML and RUL PNA on CXR and sepsis. BPs stable. Is wheezing, coughing, requiring 3LNC here. Denies chest pain or nausea, no abd pain. History and ROS reviewed Vitals reviewed NAD, no facial swelling or masses RRR no mgr +diffuse wheezing and rhonchi with +crackles in right middle lung field, unlbaored breathing, on 3LNC currently Abd +BS SOft NT ND Ext 2+ pitting edema with compression stockings in place Labs and CXR reviewed personally, ECG reviewed 85 yo male with h/o COPD on chronic O2 hs, PRISCILA on CPAP, HTN, chroni diastolic CHF, here w/ Pneumonia and sepsis. volume resuscitate, continue Cefepime and doxy but could narrow coverage to ceftriaxone from Cefepime if improving tomorrow follow CBC, CMP, MRSA swab check Sputum cx, BCxs pending supplemental O2 and wean off as tolerated needs bronchodilators for diffuse wheezing, may need steroids if worsens PG Care Time/CCT Total # of Minutes Spent Total Time Spent with Patient: Total time spent is greater than 50% in coordination of care (as documented) at patient's floor/unit and/or counseling patient: Coding Level of Care Code 12668 Initial Inpt Care Lvl 3 Diagnoses Pneumonia J18.9 Laterality: right Lung location: unspecified part of lung Pneumonia type: due to unspecified organism Leukocytosis D72.825 Leukocytosis type: bandemia COPD (chronic obstructive pulmonary disease) 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 PRISCILA (obstructive sleep apnea) G47.33 Diastolic CHF I50.32 Heart failure chronicity: chronic Hypertension I10 Hypertension type: essential hypertension Hypothyroidism E03.9 Hypothyroidism type: unspecified GERD (gastroesophageal reflux disease) K21.9 Esophagitis presence: esophagitis presence not specified PVD (peripheral vascular disease) I73.9 MRSA (methicillin resistant Staphylococcus aureus) A49.02 Pulmonary nodule R91.1 Osteoporosis, unspecified M81.0 Osteoporosis type: unspecified Presence of current pathological fracture: unspecified DVT prophylaxis Z29.9 (1) Diastolic CHF Heart failure chronicity: chronic Qualified Code(s): I50.32 - Chronic diastolic (congestive) heart failure (2) Osteoporosis, unspecified Osteoporosis type: unspecified Presence of current pathological fracture: unspecified Qualified Code(s): M81.0 - Age-related osteoporosis without current pathological fracture (3) Hypothyroidism Hypothyroidism type: unspecified Qualified Code(s): E03.9 - Hypothyroidism, unspecified (4) Leukocytosis Leukocytosis type: bandemia Qualified Code(s): D72.825 - Bandemia (5) COPD (chronic obstructive pulmonary disease) COPD type: emphysema Emphysema type: unspecified Qualified Code(s): J43.9 - Emphysema, unspecified (6) GERD (gastroesophageal reflux disease) Esophagitis presence: esophagitis presence not specified Qualified Code(s): K21.9 - Gastro-esophageal reflux disease without esophagitis (7) Hypertension Hypertension type: essential hypertension Qualified Code(s): I10 - Essential (primary) hypertension (8) Pneumonia Laterality: right Lung location: unspecified part of lung Pneumonia type: due to unspecified organism Qualified Code(s): J18.9 - Pneumonia, unspecified organism
[2021-01-16] MEDS ORDERED: CEFEPIME CONSULT ACTIVE PRN (15:09)
[2021-01-16] MEDS ORDERED: ALBUT/IPRATROP 3MG/0.5MG NEB 3 ML VIAL INH PRN (15:09)
[2021-01-16] MEDS ORDERED: ONDANSETRON INJ 2 MG/ML 2 ML VIAL IV PRN (15:09)
[2021-01-16] MEDS ORDERED: POLYETHYLENE (MIRALAX) 17 GM PACK PO PRN (15:09)
[2021-01-16] MEDS: ENOXAPARIN INJ 40 MG/0.4 ML SYR SQ SCH (16:54)
[2021-01-16] MEDS ORDERED: ALBUTEROL HFA 8 GM INHALER INH SCH (18:00)
[2021-01-16 18:41] LABS: Appearance Urine Clear (Clear); Bacteria Urine Automated Negative (Negative); Bilirubin Urine Negative (Negative); Blood Urine Negative (Negative); Cast Urine Automated 0 /lpf (0-5); Color Urine Dark Yellow; Glucose Urine UA Negative (Negative); Ketones Urine Trace (Negative); Leukocyte Esterase Urine Negative (Negative); Nitrite Urine Negative (Negative); RBC Urine Automated 0-4 /hpf (0-4); Specific Gravity Urine 1.022 (1.000-1.030); Urobilinogen Urine Negative (Negative); pH Urine 7.5 (4.5-7.5)
[2021-01-16 18:54] LABS: Protein Urine Trace (Negative)
[2021-01-16] MEDS: ALBUTEROL HFA 8 GM INHALER INH SCH (19:33)
[2021-01-16] MEDS: DOXYCYCLINE HYCLATE 100 MG CAP PO SCH (20:50)
[2021-01-16] MEDS ORDERED: CEFEPIME 1,000 MG in SYRINGE 0 ML IV SCH (21:00)
[2021-01-16] MEDS: VERAPAMIL HCL 180 MG TABCR PO SCH (21:03)
[2021-01-17] MEDS: ALBUTEROL HFA 8 GM INHALER INH SCH ×4 (01:13→19:33)
[2021-01-17] MEDS: LEVOTHYROXINE SODIUM 150 MCG TABLET PO SCH (06:02)
[2021-01-17 06:25] LABS: BUN Creatinine Ratio 21.4 (10-20); Calcium 7.9 mg/dl (8.5-10.1); Creatinine Clr Calc Pharmacy 59.7 ml/min; Est GFR (Non-African American) 66.4; Magnesium 2.2 mg/dl (1.8-2.4); Potassium 4.1 mmol/L (3.5-5.1)
[2021-01-17 06:48] LABS: Basophils # (auto) 0.01 K/uL (0-0.2); Basophils % (auto) 0.1 %; Eosinophils # (auto) 0.02 K/uL (0-0.5); Eosinophils % (auto) 0.1 %; Hematocrit (blood only) 40.6 % (42-52); Hemoglobin 13.6 g/dL (14.0-18.0); Immature Granulocytes # (auto) 0.11 K/uL (0.00-0.02); Immature Granulocytes % (auto) 0.6 %; Lymphocytes # (auto) 0.88 K/uL (1.2-3.4); Lymphocytes % (auto) 4.6 %; Mean Corpuscular Hemoglobin 30.4 pg (25-34); Mean Corpuscular Hgb Conc 33.5 g/dL (32-36); Mean Corpuscular Volume 90.6 fL (80-100); Mean Platelet Volume 12.5 fL (7.4-10.4); Monocytes # (auto) 1.78 K/uL (0.11-0.59); Monocytes % (auto) 9.2 %; Neutrophils % (auto) 85.4 %; Platelet Count 176 K/uL (130-400); RDW Coefficient of Variation 15.2 % (11.5-14.5); RDW Standard Deviation 50.9 fL (36.4-46.3); Red Blood Count 4.48 M/uL (4.7-6.1)
[2021-01-17] MEDS ORDERED: ACETAMINOPHEN 500 MG TAB PO PRN (07:27)
[2021-01-17] MEDS: DOXYCYCLINE HYCLATE 100 MG CAP PO SCH ×2 (07:46→20:25)
[2021-01-17] MEDS ORDERED: NON-FORMULARY MEDICATION (Ciclopirox 8 % solution) TOP SCH (09:00)
[2021-01-17] MEDS: FLUTICASONE FUROATE 100MCG 14 PUFFS/INHALER INH SCH (09:26)
[2021-01-17] MEDS: UMECLIDINIUM/VILANTEROL 62.5/25MCG 7 PUFFS/INHALER INH SCH (09:27)
[2021-01-17] MEDS: POTASSIUM CHLORIDE CRTAB 20 MEQ TABCR PO SCH (09:27)
[2021-01-17] MEDS: CALCIUM 600MG + VIT D 400 IU TAB PO SCH (09:27)
[2021-01-17] MEDS: CHOLECALCIFEROL 1,000 UNITS 25 MCG TAB PO SCH (09:27)
[2021-01-17] MEDS ORDERED: CEFEPIME 2,000 MG in SYRINGE 0 ML IV SCH (10:00)
--- NOTE | 2021-01-17 10:09 | Hospitalist Progress Note ---
Date of Service January 17, 2021 Assessment & Plan (1) Pneumonia: With Sepsis Similar on presentation to his pneumonia last Temp 37.6 C last evening, 5/5 WBC improved to 19.3K from 28K on admission Blood cultures pending Chest x-ray with right upper lobe/right middle lobe opacity suggestive of pneumonia Repeat chest x-ray with progression of this pneumonia however patient states improvement since admission Continue on cefepime/doxycycline but could consider ceftriaxone if improvement tomorrow course worsening on chest x-ray (previously on Doxy/Augmentin for b/l LE cellulitis and jaw pain/infection) added flutter valve, incentive spirometer Mucinex 600 mg p.o. twice daily may need to increase to 1200 mg twice daily if needed We will discontinue IV fluids at this time sputum culture pending DuoNebs as needed Supplemental oxygen to maintain O2 sat greater than 92%currently 94% on 3 L nasal cannula (does utilize oxygen at night with his CPAP and has a portable concentrator at home if needed at discharge) Given diffuse wheezing -- will order prednisone 50mg daily for short burst/5 days given prior hospitalization with improvement requiring steroids as well Continue to monitor and provide supportive care (2) Leukocytosis: Leukocytosis noted to 28 with predominant neutrophil of 25- was similar response to his previous PNA [id number] on a.m. labs we will continue to monitor No further fever since last evening Continue to monitor (3) COPD (chronic obstructive pulmonary disease): Patient with overlap syndrome with COPD and Asthma component, with chronic respiratory failure with hypoxia, wears 2L with CPAP qhs - Continue Albuterol 2 Puff q6 scheduled for 24 hours - Continue Trelegy 1 puff daily - Continue Combivent nebs QID PRN - Continue home oxygen HS w CPAP QHS - Goal SPO2 88-92% Follows locally with Dr. Burt and will ask to weigh in if condition declines or sooner if needed (4) PRISCILA (obstructive sleep apnea): No acute needs - CPAP at night 4CM H20 or titrate to comfort and adequate VT (5) Diastolic CHF: No acute decompensation at this time however did have increased wheezing and resumed lasix this afternoon 40mg daily - Continue Verapamil 180mg HS Continue to monitor (6) Hypertension: As above - Keep MAPS >65 BP stable 134/80 Continue to monitor (7) Hypothyroidism: Last TSH 1.06 Sep 2020. Will repeat with AM labs Continue levothyroxine 150mcg daily (8) GERD (gastroesophageal reflux disease): Omeprazole 20 daily [facility] -- will place on protonix 40mg daily while inpatient Continue to monitor (9) PVD (peripheral vascular disease): Chronic venous insufficiency with dermatitis and cellulitis in the past - He has venostasis changes to his legs but no open areas or signs of infection from this standpoint - He is wearing his compression hose- not prescription strength - Continue those with SCD's - He just received his SCD machine for home use but has not used it (10) MRSA (methicillin resistant Staphylococcus aureus): MRSA swab 07/03 positive, repeat also positive. On Doxy as above which should help with MRSA coverage, but if condition worsens consider switching to Vancomycin - contact precautions - blood and sputum cultures pending as above (11) Pulmonary nodule: The patient had a new nodule identified in June. Following with pulmonary, with planned repeat CT scan in 6 months which should have been in December -could consider getting CT Chest here -- will hold off for now and see if needing input from pulm tomorrow (follows with Dr. Burt) and can obtain while inpatient if needed (12) Osteoporosis, unspecified: No acute needs continue with Calcium Lisa D (13) DVT prophylaxis: Lovenox SQ SCDs, TEDs Tbili -- elevated on admission, likely from dehydration. All other LFTs wnl. Repeat Tbili improved but will continue to monitor on AM labs PT/OT evals pending Dispo: continued inpatient stay Admission and Anticipated Discharge Date Admission Date: January 16, 2021 Subjective Patient evaluated this afternoon. He states that his breathing is improved from admission. Shortness of breath is decreased. He does have oxygen at home that he uses at night with his CPAP but does also have a portable concentrator if needed at discharge.. Continues to have a cough with productive sputum and sputum culture and Gram stain is pending at this time. He notes that he had similar symptoms of weakness when attempting to get out of bed last year when he also was diagnosed with pneumonia and spent approximately 3 to 4 days in the hospital.. He has been eating and drinking without difficulty. No chest pain, fevers since last evening, abdominal pain, nausea, vomiting, dysuria at this time. Discussed continuing incentive spirometer and flutter valve with addition of Mucinex to help thin secretions. Discussed chest x-ray with progression of right sided pneumonia however reported improvement may suggest lack of radiographic imaging and will repeat in the morning and ask pulmonary to weigh in if his condition declines. He typically follows with Dr. Burt from pulmo nology and he is on service this week. Questions and concerns addressed at this time. Review of Systems Review of Systems: All systems reviewed & are unremarkable except as noted in HPI & below Physical Exam Physical Exam: General: awake, alert, no apparent distress, sitting up in chair Head: Normocephalic, atraumatic ENT: PERRLA, EOMI, no pharyngeal exudate, mucous membranes moist Neuro: AAO x 3, speech clear and appropriate, strength intact bilaterally 5/5, sensation intact and equal all extremities and dermatomes, no pronator drift Chest: equal rise and fall of the chest, no accessory muscle use, no heaves or thrills, egophony right > left on auscultation, on 3L via NC, diffuse wheezing noted, primarily in upper anterior chest brown and diffusely posterior right lobe along with rhonchi Cardiac: Regular rate and rhythm, telemetry reviewed, skin warm dry, cap refill <3 seconds, peripheral pulses +2 no JVD, no murmur. +2 edema to lower bilateral extremities GI: NABS x 4 quadrants, soft, nontender to palpation, no rebound, guarding or tenderness : Spontaneously voiding, no pain, no CVA tenderness, Extremities: Normal inspection, no peripheral edema or erythema, calfs nontender to palpation Psych: Normal mood and affect Skin: no rash or erythema Results & Data Results & Data ([facility]) Vital Signs (Past 12 Hours) Vital Signs Temp Pulse Pulse Resp BP Pulse Ox Pulse Ox 01/17/21 07:39 37.2 C 114 H 18 134/80 91 01/17/21 07:37 96 H 18 91 01/17/21 07:26 91 01/17/21 01:14 106 H 108 H 18 90 01/16/21 22:24 37.6 C H 109 H 18 143/80 H 93 Laboratory Results 01/17/21 01/17/21 01/16/21 Range/Units 05:19 05:19 18:00 WBC 19.30 H (4.8-10.8) K/uL RBC 4.48 L (4.7-6.1) M/uL Hgb 13.6 L (14.0-18.0) g/dL Hct 40.6 L (42-52) % MCV 90.6 (80-100) fL MCH 30.4 (25-34) pg MCHC 33.5 (32-36) g/dL RDW Std Deviation 50.9 H (36.4-46.3) fL RDW Coeff of Jordan 15.2 H (11.5-14.5) % Plt Count 176 (130-400) K/uL MPV 12.5 H (7.4-10.4) fL Immature Gran % (Auto) 0.6 % Neut % (Auto) 85.4 % Lymph % (Auto) 4.6 % [place]oup % (Auto) 9.2 % Eos % (Auto) 0.1 % Baso % (Auto) 0.1 % Neut # (Auto) 16.50 H (1.4-6.5) K/uL Lymph # (Auto) 0.88 L (1.2-3.4) K/uL Loup # (Auto) 1.78 H (0.11-0.59) K/uL Eos # (Auto) 0.02 (0-0.5) K/uL Baso # (Auto) 0.01 (0-0.2) K/uL Immature Gran # (Auto) 0.11 H (0.00-0.02) K/uL PT (9.0-12.0) Seconds INR (0.9-1.1) APTT (21.0-31.0) Seconds PTT Ratio Sodium 143 (136-145) mmol/L Potassium 4.1 (3.5-5.1) mmol/L Chloride 113 H (98-107) mmol/L Carbon Dioxide 22 (21-32) mmol/L Anion Gap 8.0 (3-11) BUN 22 H (7-18) mg/dl Creatinine 1.03 (0.6-1.4) mg/dl Est Cr Clr Drug Dosing 59.7 ml/min Est GFR ( Amer) 77.0 Est GFR (Non-Af Amer) 66.4 BUN/Creatinine Ratio 21.4 H (10-20) Glucose 92 (70-99) mg/dl Lactate (0.4-2.0) mmol/L Calcium 7.9 L (8.5-10.1) mg/dl Magnesium 2.2 (1.8-2.4) mg/dl Urine Color Dark Yellow Urine Appearance Clear (Clear) Urine pH 7.5 (4.5-7.5) Ur Specific [place] 1.022 (1.000-1.030) Urine Protein Trace H (Negative) Urine Glucose (UA) Negative (Negative) Urine Ketones Trace H (Negative) Urine Blood Negative (Negative) Urine Nitrite Negative (Negative) Urine Bilirubin Negative (Negative) Urine Urobilinogen Negative (Negative) Ur Leukocyte Esterase Negative (Negative) Urine WBC (Auto) 1-5 (0-5) /hpf Urine RBC (Auto) 0-4 (0-4) /hpf U Hyaline Cast (Auto) 0 (0-5) /lpf U Epithel Cells (Auto) 10-20 H (0-5) /lpf Urine Bacteria (Auto) Negative (Negative) Nasal Screen MRSA (PCR) (Negative) COVID-19 Eval Order SARS-CoV-2 (PCR) (Negative) Influenza Type A (PCR) (Neg) Influenza Type B (PCR) (Neg) RSV (RT-PCR) (Neg) 01/16/21 01/16/21 01/16/21 Range/Units 17:00 12:13 10:05 WBC (4.8-10.8) K/uL RBC (4.7-6.1) M/uL Hgb (14.0-18.0) g/dL Hct (42-52) % MCV (80-100) fL MCH (25-34) pg MCHC (32-36) g/dL RDW Std Deviation (36.4-46.3) fL RDW Coeff of Jordan (11.5-14.5) % Plt Count (130-400) K/uL MPV (7.4-10.4) fL Immature Gran % (Auto) % Neut % (Auto) % Lymph % (Auto) % [place]oup % (Auto) % Eos % (Auto) % Baso % (Auto) % Neut # (Auto) (1.4-6.5) K/uL Lymph # (Auto) (1.2-3.4) K/uL Loup # (Auto) (0.11-0.59) K/uL Eos # (Auto) (0-0.5) K/uL Baso # (Auto) (0-0.2) K/uL Immature Gran # (Auto) (0.00-0.02) K/uL PT (9.0-12.0) Seconds INR (0.9-1.1) APTT (21.0-31.0) Seconds PTT Ratio Sodium (136-145) mmol/L Potassium (3.5-5.1) mmol/L Chloride (98-107) mmol/L Carbon Dioxide (21-32) mmol/L Anion Gap (3-11) BUN (7-18) mg/dl Creatinine (0.6-1.4) mg/dl Est Cr Clr Drug Dosing ml/min Est GFR ( Amer) Est GFR (Non-Af Amer) BUN/Creatinine Ratio (10-20) Glucose (70-99) mg/dl Lactate 1.2 2.5 H* (0.4-2.0) mmol/L Calcium (8.5-10.1) mg/dl Magnesium (1.8-2.4) mg/dl Urine Color Urine Appearance (Clear) Urine pH (4.5-7.5) Ur Specific [place] (1.000-1.030) Urine Protein (Negative) Urine Glucose (UA) (Negative) Urine Ketones (Negative) Urine Blood (Negative) Urine Nitrite (Negative) Urine Bilirubin (Negative) Urine Urobilinogen (Negative) Ur Leukocyte Esterase (Negative) Urine WBC (Auto) (0-5) /hpf Urine RBC (Auto) (0-4) /hpf U Hyaline Cast (Auto) (0-5) /lpf U Epithel Cells (Auto) (0-5) /lpf Urine Bacteria (Auto) (Negative) Nasal Screen MRSA (PCR) Positive A (Negative) COVID-19 Eval Order SARS-CoV-2 (PCR) (Negative) Influenza Type A (PCR) (Neg) Influenza Type B (PCR) (Neg) RSV (RT-PCR) (Neg) 01/16/21 01/16/21 01/16/21 Range/Units 09:48 09:48 09:00 WBC (4.8-10.8) K/uL RBC (4.7-6.1) M/uL Hgb (14.0-18.0) g/dL Hct (42-52) % MCV (80-100) fL MCH (25-34) pg MCHC (32-36) g/dL RDW Std Deviation (36.4-46.3) fL RDW Coeff of Jordan (11.5-14.5) % Plt Count (130-400) K/uL MPV (7.4-10.4) fL Immature Gran % (Auto) % Neut % (Auto) % Lymph % (Auto) % [place] % (Auto) % Eos % (Auto) % Baso % (Auto) % Neut # (Auto) (1.4-6.5) K/uL Lymph # (Auto) (1.2-3.4) K/uL [place]oup # (Auto) (0.11-0.59) K/uL Eos # (Auto) (0-0.5) K/uL Baso # (Auto) (0-0.2) K/uL Immature Gran # (Auto) (0.00-0.02) K/uL PT 10.7 (9.0-12.0) Seconds INR 1.1 (0.9-1.1) APTT 31.9 H (21.0-31.0) Seconds PTT Ratio 1.2 Sodium (136-145) mmol/L Potassium (3.5-5.1) mmol/L Chloride (98-107) mmol/L Carbon Dioxide (21-32) mmol/L Anion Gap (3-11) BUN (7-18) mg/dl Creatinine (0.6-1.4) mg/dl Est Cr Clr Drug Dosing ml/min Est GFR ( Amer) Est GFR (Non-Af Amer) BUN/Creatinine Ratio (10-20) Glucose (70-99) mg/dl Lactate (0.4-2.0) mmol/L Calcium (8.5-10.1) mg/dl Magnesium (1.8-2.4) mg/dl Urine Color Urine Appearance (Clear) Urine pH (4.5-7.5) Ur Specific [place] (1.000-1.030) Urine Protein (Negative) Urine Glucose (UA) (Negative) Urine Ketones (Negative) Urine Blood (Negative) Urine Nitrite (Negative) Urine Bilirubin (Negative) Urine Urobilinogen (Negative) Ur Leukocyte Esterase (Negative) Urine WBC (Auto) (0-5) /hpf Urine RBC (Auto) (0-4) /hpf U Hyaline Cast (Auto) (0-5) /lpf U Epithel Cells (Auto) (0-5) /lpf Urine Bacteria (Auto) (Negative) Nasal Screen MRSA (PCR) (Negative) COVID-19 Eval Order [facility]sv at [facility] SARS-CoV-2 (PCR) NEGATIVE (Negative) Influenza Type A (PCR) Negative (Neg) Influenza Type B (PCR) Negative (Neg) RSV (RT-PCR) Negative (Neg) 01/16/21 Range/Units 09:00 WBC (4.8-10.8) K/uL RBC (4.7-6.1) M/uL Hgb (14.0-18.0) g/dL Hct (42-52) % MCV (80-100) fL MCH (25-34) pg MCHC (32-36) g/dL RDW Std Deviation (36.4-46.3) fL RDW Coeff of Jordan (11.5-14.5) % Plt Count (130-400) K/uL MPV (7.4-10.4) fL Immature Gran % (Auto) 0.5 % Neut % (Auto) 88.0 % Lymph % (Auto) 4.6 % [place] % (Auto) 6.7 % Eos % (Auto) 0.1 % Baso % (Auto) 0.1 % Neut # (Auto) 25.35 H (1.4-6.5) K/uL Lymph # (Auto) 1.32 (1.2-3.4) K/uL [place] # (Auto) 1.93 H (0.11-0.59) K/uL Eos # (Auto) 0.04 (0-0.5) K/uL Baso # (Auto) 0.02 (0-0.2) K/uL Immature Gran # (Auto) 0.13 H (0.00-0.02) K/uL PT (9.0-12.0) Seconds INR (0.9-1.1) APTT (21.0-31.0) Seconds PTT Ratio Sodium (136-145) mmol/L Potassium (3.5-5.1) mmol/L Chloride (98-107) mmol/L Carbon Dioxide (21-32) mmol/L Anion Gap (3-11) BUN (7-18) mg/dl Creatinine (0.6-1.4) mg/dl Est Cr Clr Drug Dosing ml/min Est GFR ( Amer) Est GFR (Non-Af Amer) BUN/Creatinine Ratio (10-20) Glucose (70-99) mg/dl Lactate (0.4-2.0) mmol/L Calcium (8.5-10.1) mg/dl Magnesium (1.8-2.4) mg/dl Urine Color Urine Appearance (Clear) Urine pH (4.5-7.5) Ur Specific [place] (1.000-1.030) Urine Protein (Negative) Urine Glucose (UA) (Negative) Urine Ketones (Negative) Urine Blood (Negative) Urine Nitrite (Negative) Urine Bilirubin (Negative) Urine Urobilinogen (Negative) Ur Leukocyte Esterase (Negative) Urine WBC (Auto) (0-5) /hpf Urine RBC (Auto) (0-4) /hpf U Hyaline Cast (Auto) (0-5) /lpf U Epithel Cells (Auto) (0-5) /lpf Urine Bacteria (Auto) (Negative) Nasal Screen MRSA (PCR) (Negative) COVID-19 Eval Order SARS-CoV-2 (PCR) (Negative) Influenza Type A (PCR) (Neg) Influenza Type B (PCR) (Neg) RSV (RT-PCR) (Neg) Diagnostic Findings Chest X-Ray 01/17/21 10:08 XR chest 1V portable CLINICAL HISTORY: Pneumonia. Follow-up study. COMPARISON STUDY: 01/16/2021 FINDINGS: The cardiac and mediastinal contours remain stable. There are aggressive right upper lobe pulmonary airspace opacities consistent with a pneumonia. There are also progressive airspace opacities at the right lung base.[ IMPRESSION: 1. Progressive right lung pulmonary airspace opacities consistent with a worsening pneumonia. ACT 112: Negative or not required by law. Electronically signed by: Mike Goff M.D. 01/17/2021 11:27 AM PG Care Time/CCT Total # of Minutes Spent Total Time Spent with Patient: Total time spent is greater than 50% in coordination of care (as documented) at patient's floor/unit and/or counseling patient: Coding Level of Care Code 31003 Subseq Hosp Care Lvl 3 Diagnoses Pneumonia J18.9 Laterality: right Lung location: unspecified part of lung Pneumonia type: due to unspecified organism Leukocytosis D72.825 Leukocytosis type: bandemia COPD (chronic obstructive pulmonary disease) 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 PRISCILA (obstructive sleep apnea) G47.33 Diastolic CHF I50.32 Heart failure chronicity: chronic Hypertension I10 Hypertension type: essential hypertension Hypothyroidism E03.9 Hypothyroidism type: unspecified GERD (gastroesophageal reflux disease) K21.9 Esophagitis presence: esophagitis presence not specified PVD (peripheral vascular disease) I73.9 MRSA (methicillin resistant Staphylococcus aureus) A49.02 Pulmonary nodule R91.1 Osteoporosis, unspecified M81.0 Osteoporosis type: unspecified Presence of current pathological fracture: unspecified DVT prophylaxis Z29.9 (1) Pneumonia Laterality: right Lung location: unspecified part of lung Pneumonia type: due to unspecified organism Qualified Code(s): J18.9 - Pneumonia, unspecified organism (2) Leukocytosis Leukocytosis type: bandemia Qualified Code(s): D72.825 - Bandemia (3) COPD (chronic obstructive pulmonary disease) COPD type: emphysema Emphysema type: unspecified Qualified Code(s): J43.9 - Emphysema, unspecified (4) Diastolic CHF Heart failure chronicity: chronic Qualified Code(s): I50.32 - Chronic diastolic (congestive) heart failure (5) Hypertension Hypertension type: essential hypertension Qualified Code(s): I10 - Essential (primary) hypertension (6) Hypothyroidism Hypothyroidism type: unspecified Qualified Code(s): E03.9 - Hypothyroidism, unspecified (7) GERD (gastroesophageal reflux disease) Esophagitis presence: esophagitis presence not specified Qualified Code(s): K21.9 - Gastro-esophageal reflux disease without esophagitis (8) Osteoporosis, unspecified Osteoporosis type: unspecified Presence of current pathological fracture: unspecified Qualified Code(s): M81.0 - Age-related osteoporosis without current pathological fracture
[2021-01-17] MEDS ORDERED: SODIUM CHLORIDE 0.45 % 1,000 ML IV SCH (10:15)
[2021-01-17 10:42] LABS: Albumin Level 2.2 gm/dl (3.4-5.0); Bilirubin Direct 0.3 mg/dl (0-0.2); Bilirubin,Total 1.1 mg/dl (0.2-1); Total Protein 6.1 gm/dl (6.4-8.2)
--- NOTE | 2021-01-17 11:29 | XRay Report ---
XR chest 1V portable CLINICAL HISTORY: Pneumonia. Follow-up study. COMPARISON STUDY: 01/16/2021 FINDINGS: The cardiac and mediastinal contours remain stable. There are aggressive right upper lobe p ulmonary airspace opacities consistent with a pneumonia. There are also progressive airspace opacitie s at the right lung base.[ IMPRESSION: 1. Progressive right lung pulmonary airspace opacities consistent with a worsening pneumonia. ACT 112: Negative or not required by law. Electronically signed by: Mike Goff M.D. 01/17/2021 11:27 AM
[2021-01-17] MEDS: ENOXAPARIN INJ 40 MG/0.4 ML SYR SQ SCH (16:06)
[2021-01-17] MEDS: PANTOprazole 40 MG TAB PO SCH (16:07)
[2021-01-17] MEDS: FUROSEMIDE 40 MG TAB PO SCH (16:07)
[2021-01-17] MEDS: predniSONE 50 MG TAB PO SCH (16:07)
[2021-01-17] MEDS ORDERED: OPTIRAY 300 100mL IV ONE (17:41)
--- NOTE | 2021-01-17 18:05 | CT Scan Report ---
CT OF THE CHEST WITH IV CONTRAST CLINICAL HISTORY: f/u lingular nodule, pneumonia COMPARISON STUDY: Chest CT June 22, 2020. Chest radiograph performed earlier today. TECHNIQUE: Following IV administration of 89 mL of Optiray, helical axial images of the chest were o btained. Sagittal and coronal reconstructions were viewed as well as maximal intensity projections o n an independent 3-D workstation. Automated exposure control was utilized for the study. A dose low ering technique was utilized adhering to the principles of ALARA. CT DOSE: 617.88 mGy.cm FINDINGS: There has been interval development of multiple mildly enlarged mediastinal and bilateral hilar lymph nodes. Index right paratracheal lymph node on image 89 of 276 measures 1.5 cm. Index righ t hilar node on image 126 measures 1.4 cm in short axis diameter. There is moderate cardiomegaly. No thoracic aortic dissection is noted. There is no central pulmonary embolus. A small right pleural eff usion is noted. There is no pneumothorax. An 8 mm lingular nodule on image 143 is unchanged since cody or CT of June 22, 2020. There is moderate emphysema. Extensive right upper lobe consolidation is no dante. There are scattered additional airspace opacities within the lungs. Note is made of moderate bro nchial wall thickening with multifocal mucus plugging. No suspicious lesion is identified within visu alized portions of the bony thorax. Hepatic steatosis is noted. This exam is mildly compromised by mo tion artifact. IMPRESSION: 1. Extensive right upper lobe consolidation with additional mild multifocal opacities within the sharon noris of the lungs consistent with multifocal pneumonia. Follow-up chest CT in 3 months to ensure res olution is recommended. 2. No change in an 8 mm lingular nodule. This can be assessed on follow-up chest CT. 3. Moderate emphysema. 4. Small right pleural effusion. 5. Multiple mildly enlarged mediastinal and bilateral hilar lymph nodes which are likely reactive. Th kelsey should be assessed on follow-up chest CT. ACT 112: Negative or not required by law. Electronically signed by: Conner Villalpando M.D. 01/17/2021 6:03 PM
[2021-01-17] MEDS: guaiFENesin 600 MG TABCR PO SCH (20:25)
[2021-01-17] MEDS: BENZONATATE 100 MG CAPSULE PO SCH (20:25)
[2021-01-17] MEDS: VERAPAMIL HCL 180 MG TABCR PO SCH (20:25)
[2021-01-17] MEDS: CEFEPIME 2,000 MG in SYRINGE 0 ML IV SCH (22:03)
[2021-01-18] MEDS: ALBUTEROL HFA 8 GM INHALER INH SCH ×4 (00:02→18:20)
[2021-01-18] MEDS: LEVOTHYROXINE SODIUM 150 MCG TABLET PO SCH (05:47)
[2021-01-18 08:44] LABS: Hematocrit (blood only) 40.9 % (42-52); Hemoglobin 14.2 g/dL (14.0-18.0); Immature Granulocytes # (auto) 0.06 K/uL (0.00-0.02); Immature Granulocytes % (auto) 0.4 %; Lymphocytes # (auto) 0.74 K/uL (1.2-3.4); Lymphocytes % (auto) 5.4 %; Mean Corpuscular Hemoglobin 30.7 pg (25-34); Mean Corpuscular Hgb Conc 34.7 g/dL (32-36); Mean Corpuscular Volume 88.3 fL (80-100); Mean Platelet Volume 12.7 fL (7.4-10.4); Monocytes # (auto) 1.14 K/uL (0.11-0.59); Monocytes % (auto) 8.3 %; Neutrophils % (auto) 85.9 %; Platelet Count 179 K/uL (130-400); RDW Standard Deviation 48.6 fL (36.4-46.3); Red Blood Count 4.63 M/uL (4.7-6.1); White Blood Count 13.74 K/uL (4.8-10.8)
[2021-01-18] MEDS: DOXYCYCLINE HYCLATE 100 MG CAP PO SCH ×2 (08:55→20:27)
[2021-01-18 08:56] LABS: Albumin Level 1.9 gm/dl (3.4-5.0); BUN Creatinine Ratio 24.7 (10-20); Bilirubin,Total 0.9 mg/dl (0.2-1); Calcium 8.5 mg/dl (8.5-10.1); Creatinine Clr Calc Pharmacy 63.9 ml/min; Est GFR (African American) 81.7; Est GFR (Non-African American) 70.5; Thyroid Stimulating Hormone 0.651 uIu/ml (0.300-4.500); Total Protein 6.6 gm/dl (6.4-8.2)
--- NOTE | 2021-01-18 09:01 | Hospitalist Progress Note ---
Date of Service January 18, 2021 Assessment & Plan (1) Pneumonia: With Sepsis Similar on presentation to his pneumonia last * Temp 37.6 C 01/16 (no further temp) * WBC improved to 13.7K from 28K on admission * Blood cultures NGTD 48 hours -- follow * Chest x-ray with right upper lobe/right middle lobe opacity suggestive of pneumonia * Repeat chest x-ray with progression of this pneumonia however patient states improvement since admission * CT [facility] * -- will review with pulmonary today but discussed last evening to continue on current abx for now given improvement--> CAP and to continue current treatment course as outlined * Prednisone 50mg daily x 5 days * Continue on cefepime/doxycycline (day 3) but could consider ceftriaxone if improvement (previously on Doxy/Augmentin for b/l LE cellulitis and jaw pain/infection) * added flutter valve, incentive spirometer * Mucinex 600 mg p.o. twice daily may need to increase to 1200 mg twice daily if needed * Tessalon pearls prn cough * sputum culture pending -- light normal victor hugo, final report to follow * DuoNebs as needed * Supplemental oxygen to maintain O2 sat greater than 90% * -down to 2L today with SpO2 93% but was increased to 3L by RN. * -- patient typically around 91% at rest at home. Consider 2 step prior to d/c (already uses O2 with CPAP at night and has a portable concentrator at home if needed at discharge) Legionella urine antigen pending Continue to monitor and provide supportive care (2) Leukocytosis: Leukocytosis noted to 28 with predominant neutrophil of 25- was similar response to his previous PNA Improving Currently 13.7k -- also note patient now on prednisone as well No further fever since 01/16 Continue to monitor (3) COPD (chronic obstructive pulmonary disease): Patient with overlap syndrome with COPD and Asthma component, with chronic respiratory failure with hypoxia, wears 2L with CPAP qhs - Continue Albuterol 2 Puff q6 scheduled for 24 hours - Continue Trelegy 1 puff daily - Continue Combivent nebs QID PRN - Continue home oxygen HS w CPAP QHS - Goal SPO2 88-90% Prednisone 50mg daily for 5 days as above Follows locally with Dr. Burt and will ask to weigh in if condition declines or sooner if needed -- feels CT with CAP and continue current treatment (4) PRISCILA (obstructive sleep apnea): No acute needs - CPAP at night 4CM H20 or titrate to comfort and adequate VT (5) Diastolic CHF: No acute decompensation at this time however did have increased wheezing and resumed lasix 40mg daily Continue Verapamil 180mg HS Continue to monitor (6) Hypertension: As above BP stable 146/81 Continued verapamil 180mg HS Continue to monitor (7) Hypothyroidism: Last TSH 1.06 Sep 2020. 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 On Doxy as above which should help with MRSA coverage, but if condition worsens consider switching to Vancomycin - contact precautions - blood and sputum cultures as above (11) Pulmonary nodule: The patient had a new nodule identified in June. Following with pulmonary, with planned repeat CT scan in 6 months which should have been in December CT chest with 1. Extensive right upper lobe consolidation with additional mild multifocal opacities within the remainder of the lungs consistent with multifocal pn eumonia. Follow-up chest CT in 3 months to ensure resolution is recommended. 2. No change in an 8 mm lingular nodule. This can be assessed on follow-up chest CT. 3. Moderate emphysema. 4. Small right pleural effusion. 5. Multiple mildly enlarged mediastinal and bilateral hilar lymph nodes which are likely reactive. These should be assessed on follow-up chest CT. Will need follow up appointment with Dr. Burt at discharge (12) Osteoporosis, unspecified: No acute needs continue with Calcium, Vit D (13) DVT prophylaxis: Lovenox SQ SCDs, TEDs Tbili elevated on admission, likely from dehydration. All other LFTs wnl. R epeat Tbili improved but will continue to monitor on AM labs --> Resolved on repeat PT/OT evals -- recs for return home at d/c Dispo: continued inpatient stay (14) Acute and chronic respiratory failure: Admission and Anticipated Discharge Date Admission Date: January 16, 2021 Subjective Patient evaluated this afternoon. Breathing much improved. Tessalon pearls effective at helping with cough but wears off -- discussed can get several times daily and will have RN give dose now. He was on 2L NC this morning but unsure why increased to 3L. He denied having worsening shortness of breath and frequently checks his O2 sat at home. Typically at rest he runs around 91% and this does drop into the 80s with ambulation. Will have RN titrate back down as tolerated to maintain O2 sat 90% or supplemental for symptoms. No fever, chills, chest pain, abdominal pain, nausea or vomiting. Does use antifungal to nails and will have his bring that in today to resume treatment for onychomycosis. Review of Systems Review of Systems: All systems reviewed & are unremarkable except as noted in HPI & below Physical Exam Physical Exam: General: awake, alert, no apparent distress, sitting up in chair Head: Normocephalic, atraumatic ENT: PERRLA, EOMI, no pharyngeal exudate, mucous membranes moist Neuro: AAO x 3, speech clear and appropriate, strength intact bilaterally 5/5, sensation intact and equal all extremities and dermatomes, no pronator drift Chest: equal rise and fall of the chest, no accessory muscle use, no heaves or thrills, egophony right > left on auscultation, on 2L via NC, decreased wheezing noted, primarily in upper anterior chest brown and diffusely posterior right lobe along with rhonchi (also decreased) Cardiac: Regular rate and rhythm, telemetry reviewed, skin warm dry, cap refill <3 seconds, peripheral pulses +2 no JVD, no murmur. +1 edema to lower bilateral extremities GI: NABS x 4 quadrants, soft, nontender to palpation, no rebound, guarding or tenderness : Spontaneously voiding, no pain, no CVA tenderness, Extremities: Normal inspection, no peripheral edema or erythema, calfs nontender to palpation Psych: Normal mood and affect Skin: no rash or erythema Results & Data Results & Data ([facility]) Vital Signs (Past 12 Hours) Vital Signs Temp Pulse Resp BP BP Pulse Ox 01/18/21 07:54 36.7 C 87 16 146/81 H 93 01/18/21 07:14 86 16 95 01/18/21 00:03 99 H 20 90 01/17/21 22:34 37.1 C 101 H 18 134/83 91 Laboratory Results 01/18/21 01/18/21 01/18/21 Range/Units 08:09 08:09 00:54 WBC 13.74 H (4.8-10.8) K/uL RBC 4.63 L (4.7-6.1) M/uL Hgb 14.2 (14.0-18.0) g/dL Hct 40.9 L (42-52) % MCV 88.3 (80-100) fL MCH 30.7 (25-34) pg MCHC 34.7 (32-36) g/dL RDW Std Deviation 48.6 H (36.4-46.3) fL RDW Coeff of Jordan 15.0 H (11.5-14.5) % Plt Count 179 (130-400) K/uL MPV 12.7 H (7.4-10.4) fL Immature Gran % (Auto) 0.4 % Neut % (Auto) 85.9 % Lymph % (Auto) 5.4 % [place] % (Auto) 8.3 % Eos % (Auto) 0.0 % Baso % (Auto) 0.0 % Neut # (Auto) 11.80 H (1.4-6.5) K/uL Lymph # (Auto) 0.74 L (1.2-3.4) K/uL [place] # (Auto) 1.14 H (0.11-0.59) K/uL Eos # (Auto) 0.00 (0-0.5) K/uL Baso # (Auto) 0.00 (0-0.2) K/uL Immature Gran # (Auto) 0.06 H (0.00-0.02) K/uL Sodium 137 (136-145) mmol/L Potassium (3.5-5.1) mmol/L Chloride 108 H (98-107) mmol/L Carbon Dioxide 20 L (21-32) mmol/L Anion Gap 8.0 (3-11) BUN 24 H (7-18) mg/dl Creatinine 0.98 (0.6-1.4) mg/dl Est Cr Clr Drug Dosing 63.9 ml/min Est GFR ( Amer) 81.7 Est GFR (Non-Af Amer) 70.5 BUN/Creatinine Ratio 24.7 H (10-20) Glucose 113 H (70-99) mg/dl Calcium 8.5 (8.5-10.1) mg/dl Magnesium (1.8-2.4) mg/dl Total Bilirubin 0.9 (0.2-1) mg/dl Direct Bilirubin (0-0.2) mg/dl AST (15-37) U/L ALT 19 (12-78) U/L Alkaline Phosphatase 55 (45-117) U/L Total Protein 6.6 (6.4-8.2) gm/dl Albumin 1.9 L (3.4-5.0) gm/dl TSH 0.651 (0.300-4.500) uIu/ml Urine Legionella Ag Pending 01/17/21 Range/Units 05:19 WBC (4.8-10.8) K/uL RBC (4.7-6.1) M/uL Hgb (14.0-18.0) g/dL Hct (42-52) % MCV (80-100) fL MCH (25-34) pg MCHC (32-36) g/dL RDW Std Deviation (36.4-46.3) fL RDW Coeff of Jordan (11.5-14.5) % Plt Count (130-400) K/uL MPV (7.4-10.4) fL Immature Gran % (Auto) % Neut % (Auto) % Lymph % (Auto) % [place] % (Auto) % Eos % (Auto) % Baso % (Auto) % Neut # (Auto) (1.4-6.5) K/uL Lymph # (Auto) (1.2-3.4) K/uL [place] # (Auto) (0.11-0.59) K/uL Eos # (Auto) (0-0.5) K/uL Baso # (Auto) (0-0.2) K/uL Immature Gran # (Auto) (0.00-0.02) K/uL Sodium (136-145) mmol/L Potassium (3.5-5.1) mmol/L Chloride (98-107) mmol/L Carbon Dioxide (21-32) mmol/L Anion Gap (3-11) BUN (7-18) mg/dl Creatinine (0.6-1.4) mg/dl Est Cr Clr Drug Dosing ml/min Est GFR ( Amer) Est GFR (Non-Af Amer) BUN/Creatinine Ratio (10-20) Glucose (70-99) mg/dl Calcium (8.5-10.1) mg/dl Magnesium (1.8-2.4) mg/dl Total Bilirubin 1.1 H (0.2-1) mg/dl Direct Bilirubin 0.3 H (0-0.2) mg/dl AST 13 L (15-37) U/L ALT 21 (12-78) U/L Alkaline Phosphatase 55 (45-117) U/L Total Protein 6.1 L (6.4-8.2) gm/dl Albumin 2.2 L (3.4-5.0) gm/dl TSH (0.300-4.500) uIu/ml Urine Legionella Ag PG Care Time/CCT Total # of Minutes Spent Total Time Spent with Patient: Total time spent is greater than 50% in co ordination of care (as documented) at patient's floor/unit and/or counseling patient: Coding Level of Care Code 45507 Subseq Hosp Care Lvl 3 Diagnoses Pneumonia J18.9 Laterality: right Lung location: unspecified part of lung Pneumonia type: due to unspecified organism Leukocytosis D72.825 Leukocytosis type: bandemia COPD (chronic obstructive pulmonary disease) 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 PRISCILA (obstructive sleep apnea) G47.33 Diastolic CHF I50.32 Heart failure chronicity: chronic Hypertension I10 Hypertension type: essential hypertension Hypothyroidism E03.9 Hypothyroidism type: unspecified GERD (gastroesophageal reflux disease) K21.9 Esophagitis presence: esophagitis presence not specified PVD (peripheral vascular disease) I73.9 MRSA (methicillin resistant Staphylococcus aureus) A49.02 Pulmonary nodule R91.1 Osteoporosis, unspecified M81.0 Osteoporosis type: unspecified Presence of current pathological fracture: unspecified DVT prophylaxis Z29.9 Acute and chronic respiratory failure J96.20 (1) Diastolic CHF Heart failure chronicity: chronic Qualified Code(s): I50.32 - Chronic diastolic (congestive) heart failure (2) Osteoporosis, unspecified Osteoporosis type: unspecified Presence of current pathological fracture: unspecified Qualified Code(s): M81.0 - Age-related osteoporosis without current pathological fracture (3) Hypothyroidism Hypothyroidism type: unspecified Qualified Code(s): E03.9 - Hypothyroidism, unspecified (4) Leukocytosis Leukocytosis type: bandemia Qualified Code(s): D72.825 - Bandemia (5) COPD (chronic obstructive pulmonary disease) COPD type: emphysema Emphysema type: unspecified Qualified Code(s): J43.9 - Emphysema, unspecified (6) GERD (gastroesophageal reflux disease) Esophagitis presence: esophagitis presence not specified Qualified Code(s): K21.9 - Gastro-esophageal reflux disease without esophagitis (7) Hypertension Hypertension type: essential hypertension Qualified Code(s): I10 - Essential (primary) hypertension (8) Pneumonia Laterality: right Lung location: unspecified part of lung Pneumonia type: due to unspecified organism Qualified Code(s): J18.9 - Pneumonia, unspecified organism
[2021-01-18] MEDS: BENZONATATE 100 MG CAPSULE PO SCH ×3 (09:46→20:27)
[2021-01-18] MEDS: CALCIUM 600MG + VIT D 400 IU TAB PO SCH (09:47)
[2021-01-18] MEDS: CHOLECALCIFEROL 1,000 UNITS 25 MCG TAB PO SCH (09:47)
[2021-01-18] MEDS: FUROSEMIDE 40 MG TAB PO SCH (09:48)
[2021-01-18] MEDS: FLUTICASONE FUROATE 100MCG 14 PUFFS/INHALER INH SCH (09:48)
[2021-01-18] MEDS: guaiFENesin 600 MG TABCR PO SCH ×2 (09:48→20:28)
[2021-01-18] MEDS: PANTOprazole 40 MG TAB PO SCH (09:48)
[2021-01-18] MEDS: POTASSIUM CHLORIDE CRTAB 20 MEQ TABCR PO SCH (09:49)
[2021-01-18] MEDS: UMECLIDINIUM/VILANTEROL 62.5/25MCG 7 PUFFS/INHALER INH SCH (09:49)
[2021-01-18] MEDS: predniSONE 50 MG TAB PO SCH (09:49)
[2021-01-18] MEDS: CEFEPIME 2,000 MG in SYRINGE 0 ML IV SCH ×2 (10:44→18:21)
[2021-01-18 11:06] LABS: Potassium 3.8 mmol/L (3.5-5.1)
[2021-01-18 11:13] LABS: Bilirubin Direct 0.2 mg/dl (0-0.2); Magnesium 2.3 mg/dl (1.8-2.4)
[2021-01-18] MEDS: ENOXAPARIN INJ 40 MG/0.4 ML SYR SQ SCH (14:58)
[2021-01-18] MEDS: VERAPAMIL HCL 180 MG TABCR PO SCH (20:27)
[2021-01-19] MEDS: ALBUTEROL HFA 8 GM INHALER INH SCH ×4 (01:05→18:54)
[2021-01-19] MEDS: CEFEPIME 2,000 MG in SYRINGE 0 ML IV SCH ×2 (02:49→08:54)
[2021-01-19] MEDS: LEVOTHYROXINE SODIUM 150 MCG TABLET PO SCH (06:01)
[2021-01-19 07:05] LABS: Basophils # (auto) 0.01 K/uL (0-0.2); Basophils % (auto) 0.1 %; Hematocrit (blood only) 39.2 % (42-52); Hemoglobin 13.3 g/dL (14.0-18.0); Immature Granulocytes # (auto) 0.06 K/uL (0.00-0.02); Immature Granulocytes % (auto) 0.4 %; Lymphocytes # (auto) 0.62 K/uL (1.2-3.4); Lymphocytes % (auto) 4.5 %; Mean Corpuscular Hemoglobin 30.3 pg (25-34); Mean Corpuscular Hgb Conc 33.9 g/dL (32-36); Mean Corpuscular Volume 89.3 fL (80-100); Mean Platelet Volume 11.6 fL (7.4-10.4); Monocytes # (auto) 1.54 K/uL (0.11-0.59); Monocytes % (auto) 11.1 %; Neutrophils # (auto) 11.62 K/uL (1.4-6.5); Neutrophils % (auto) 83.9 %; Platelet Count 197 K/uL (130-400); RDW Coefficient of Variation 14.8 % (11.5-14.5); RDW Standard Deviation 48.2 fL (36.4-46.3); Red Blood Count 4.39 M/uL (4.7-6.1); White Blood Count 13.85 K/uL (4.8-10.8)
[2021-01-19 07:27] LABS: BUN Creatinine Ratio 26.5 (10-20); Calcium 8.5 mg/dl (8.5-10.1); Creatinine Clr Calc Pharmacy 47.1 ml/min; Est GFR (African American) 56.5; Est GFR (Non-African American) 48.7; Magnesium 2.4 mg/dl (1.8-2.4); Potassium 4.1 mmol/L (3.5-5.1)
[2021-01-19] MEDS: DOXYCYCLINE HYCLATE 100 MG CAP PO SCH ×2 (08:48→21:00)
[2021-01-19] MEDS: guaiFENesin 600 MG TABCR PO SCH ×2 (08:48→21:00)
[2021-01-19] MEDS: FLUTICASONE FUROATE 100MCG 14 PUFFS/INHALER INH SCH (08:48)
[2021-01-19] MEDS: UMECLIDINIUM/VILANTEROL 62.5/25MCG 7 PUFFS/INHALER INH SCH (08:48)
[2021-01-19] MEDS: BENZONATATE 100 MG CAPSULE PO SCH ×3 (08:48→21:00)
[2021-01-19] MEDS: FUROSEMIDE 40 MG TAB PO SCH (08:49)
[2021-01-19] MEDS: POTASSIUM CHLORIDE CRTAB 20 MEQ TABCR PO SCH (08:49)
[2021-01-19] MEDS: CALCIUM 600MG + VIT D 400 IU TAB PO SCH (08:50)
[2021-01-19] MEDS: CHOLECALCIFEROL 1,000 UNITS 25 MCG TAB PO SCH (08:50)
[2021-01-19] MEDS: predniSONE 50 MG TAB PO SCH (08:50)
[2021-01-19] MEDS: PANTOprazole 40 MG TAB PO SCH (08:50)
--- NOTE | 2021-01-19 09:35 | Hospitalist Progress Note ---
Date of Service January 19, 2021 Assessment & Plan (1) Pneumonia: With Sepsis Similar on presentation to his pneumonia last * Temp 37.6 C 01/16 (no further temp) * WBC improved to 13.7K from 28K on admission -- about the same today but on steroids, no fever * Blood cultures NGTD 48 hours -- follow * Chest x-ray with right upper lobe/right middle lobe opacity suggestive of pneumonia * Repeat chest x-ray with progression of this pneumonia however patient states improvement since admission * CT Chest * -- will review with pulmonary--> agreed CAP and to continue current treatment course as outlined * Prednisone 50mg daily x 5 days (on day 3) * Continue on cefepime/doxycycline (day 4) but could consider ceftriaxone if improvement (previously on Doxy/Augmentin for b/l LE cellulitis and jaw pain/infection in past couple months) --> will place on PO 01/20 to complete 7- 10 day course * added flutter valve, incentive spirometer * Mucinex 600 mg p.o. twice daily may need to increase to 1200 mg twice daily if needed * Tessalon pearls prn cough * sputum culture pending -- light normal victor hugo, final report to follow * DuoNebs as needed * Supplemental oxygen to maintain O2 sat greater than 90% * -down to room air with SpO2 91% * -- patient typically around 91% at rest at home. * Will get 2 step prior to d/c (already uses O2 with CPAP at night and has a portable concentrator at home if needed at discharge) Legionella urine antigen pending Continue to monitor and provide supportive care (2) Leukocytosis: Leukocytosis noted to 28 with predominant neutrophil of 25- was similar response to his previous PNA Improving Currently 13k -- also note patient now on prednisone as well No further fever since 01/16 Continue to monitor (3) COPD (chronic obstructive pulmonary disease): Patient with overlap syndrome with COPD and Asthma component, with chronic respiratory failure with hypoxia, wears 2L with CPAP qhs - Continue Albuterol 2 Puff q6 scheduled for 24 hours - Continue Trelegy 1 puff daily - Continue Combivent nebs QID PRN - Continue home oxygen HS w CPAP QHS - Goal SPO2 88-90% Prednisone 50mg daily for 5 days as above Follows locally with Dr. Burt and will ask to weigh in if condition declines or sooner if needed -- feels CT with CAP and continue current treatment (4) PRISCILA (obstructive sleep apnea): No acute needs - CPAP at night 4CM H20 or titrate to comfort and adequate VT (5) Diastolic CHF: No acute decompensation at this time however did have increased wheezing and resumed lasix 40mg daily Continue Verapamil 180mg HS Continue to monitor (6) Hypertension: As above BP stable 132/76 Continued verapamil 180mg HS Continue to monitor (7) Hypothyroidism: Last TSH 1.06 Sep 2020. 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 On Doxy as above which should help with MRSA coverage, but if condition worsens consider switching to Vancomycin - contact precautions - blood and sputum cultures as above (11) Pulmonary nodule: The patient had a new nodule identified in June. Following with pulmonary, with planned repeat CT scan in 6 months which should have been in December CT chest with 1. Extensive right upper lobe consolidation with additional mild multifocal opacities within the remainder of the lungs consistent with multifocal pneumonia. Follow-up chest CT in 3 months to ensure resolution is recommended. 2. No change in an 8 mm lingular nodule. This can be assessed on follow-up chest CT. 3. Moderate emphysema. 4. Small right pleural effusion. 5. Multiple mildly enlarged mediastinal and bilateral hilar lymph nodes which are likely reactive. These should be assessed on follow-up chest CT. Will need follow up appointment with Dr. Burt at discharge (12) Osteoporosis, unspecified: No acute needs continue with Calcium, Vit D (13) DVT prophylaxis: Lovenox SQ SCDs, TEDs Tbili elevated on admission, likely from dehydration. All other LFTs wnl. R epeat Tbili improved but will continue to monitor on AM labs --> Resolved on repeat PT/OT evals -- recs for return home at d/c Dispo: continued inpatient stay possible d/c tomorrow on oral agents CM arranged home health (14) Acute and chronic respiratory failure: Admission and Anticipated Discharge Date Admission Date: January 16, 2021 Subjective Patient evaluated this afternoon. Feeling better. Breathing improved. Now off of oxygen. Cough controlled, decreased. No fever, chills, chest pain, abdominal pain, nausea, vomiting, dysuria at this time. Plans on possible d/c on oral abx tomorrow and will get 2step prior to d/c. Home health set up. Questions/concerns addressed. Review of Systems Review of Systems: All systems reviewed & are unremarkable except as noted in HPI & below Physical Exam Physical Exam: General: awake, alert, no apparent distress, sitting up in chair Head: Normocephalic, atraumatic ENT: PERRLA, EOMI, no pharyngeal exudate, mucous membranes moist Neuro: AAO x 3, speech clear and appropriate, strength intact bilaterally 5/5, sensation intact and equal all extremities and dermatomes, no pronator drift Chest: equal rise and fall of the chest, no accessory muscle use, no heaves or thrills, egophony right > left on auscultation, on ROOM AIR, decreased wheezing noted, primarily in upper POSTERIOR lung brown (minimal anterior upper wheezing) and RLL rhonchi imporved Cardiac: Regular rate and rhythm, skin warm dry, cap refill <3 seconds, peripheral pulses +2 no JVD, no murmur. +1 edema to lower bilateral extremities GI: NABS x 4 quadrants, soft, nontender to palpation, no rebound, guarding or tenderness : Spontaneously voiding, no pain, no CVA tenderness, using urinal currently Extremities: Normal inspection, no peripheral erythema, calfs nontender to palpation. 1+ edema b/l LE with SCDs on Psych: Normal mood and affect Skin: no rash or erythema Results & Data Results & Data ([facility]) Vital Signs (Past 12 Hours) Vital Signs Temp Pulse Resp BP Pulse Ox 01/19/21 08:00 36.6 C 91 H 16 132/76 91 01/19/21 07:46 86 18 95 01/19/21 01:05 94 H 18 90 01/18/21 23:42 36.3 C L 94 H 16 128/78 93 Laboratory Results 01/19/21 01/19/21 01/18/21 Range/Units 06:46 06:46 10:30 WBC 13.85 H (4.8-10.8) K/uL RBC 4.39 L (4.7-6.1) M/uL Hgb 13.3 L (14.0-18.0) g/dL Hct 39.2 L (42-52) % MCV 89.3 (80-100) fL MCH 30.3 (25-34) pg MCHC 33.9 (32-36) g/dL RDW Std Deviation 48.2 H (36.4-46.3) fL RDW Coeff of Jordan 14.8 H (11.5-14.5) % Plt Count 197 (130-400) K/uL MPV 11.6 H (7.4-10.4) fL Immature Gran % (Auto) 0.4 % Neut % (Auto) 83.9 % Lymph % (Auto) 4.5 % [place] % (Auto) 11.1 % Eos % (Auto) 0.0 % Baso % (Auto) 0.1 % Neut # (Auto) 11.62 H (1.4-6.5) K/uL Lymph # (Auto) 0.62 L (1.2-3.4) K/uL [place] # (Auto) 1.54 H (0.11-0.59) K/uL Eos # (Auto) 0.00 (0-0.5) K/uL Baso # (Auto) 0.01 (0-0.2) K/uL Immature Gran # (Auto) 0.06 H (0.00-0.02) K/uL Sodium 140 (136-145) mmol/L Potassium 4.1 3.8 (3.5-5.1) mmol/L Chloride 110 H (98-107) mmol/L Carbon Dioxide 24 (21-32) mmol/L Anion Gap 6.0 (3-11) BUN 35 H (7-18) mg/dl Creatinine 1.33 D (0.6-1.4) mg/dl Est Cr Clr Drug Dosing 47.1 ml/min Est GFR ( Amer) 56.5 Est GFR (Non-Af Amer) 48.7 BUN/Creatinine Ratio 26.5 H (10-20) Glucose 119 H (70-99) mg/dl Calcium 8.5 (8.5-10.1) mg/dl Magnesium 2.4 2.3 (1.8-2.4) mg/dl Direct Bilirubin 0.2 (0-0.2) mg/dl AST 11 L (15-37) U/L PG Care Time/CCT Total # of Minutes Spent Total Time Spent with Patient: Total time spent is greater than 50% in coordination of care (as documented) at patient's floor/unit and/or counseling patient: Coding Level of Care Code 67412 Subseq Hosp Care Lvl 3 Diagnoses Pneumonia J18.9 Laterality: right Lung location: unspecified part of lung Pneumonia type: due to unspecified organism Leukocytosis D72.825 Leukocytosis type: bandemia COPD (chronic obstructive pulmonary disease) 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 PRISCILA (obstructive sleep apnea) G47.33 Diastolic CHF I50.32 Heart failure chronicity: chronic Hypertension I10 Hypertension type: essential hypertension Hypothyroidism E03.9 Hypothyroidism type: unspecified GERD (gastroesophageal reflux disease) K21.9 Esophagitis presence: esophagitis presence not specified PVD (peripheral vascular disease) I73.9 MRSA (methicillin resistant Staphylococcus aureus) A49.02 Pulmonary nodule R91.1 Osteoporosis, unspecified M81.0 Osteoporosis type: unspecified Presence of current pathological fracture: unspecified DVT prophylaxis Z29.9 Acute and chronic respiratory failure J96.20 (1) Diastolic CHF Heart failure chronicity: chronic Qualified Code(s): I50.32 - Chronic diastolic (congestive) heart failure (2) Osteoporosis, unspecified Osteoporosis type: unspecified Presence of current pathological fracture: unspecified Qualified Code(s): M81.0 - Age-related osteoporosis without current pathological fracture (3) Hypothyroidism Hypothyroidism type: unspecified Qualified Code(s): E03.9 - Hypothyroidism, unspecified (4) Leukocytosis Leukocytosis type: bandemia Qualified Code(s): D72.825 - Bandemia (5) COPD (chronic obstructive pulmonary disease) COPD type: emphysema Emphysema type: unspecified Qualified Code(s): J43.9 - Emphysema, unspecified (6) GERD (gastroesophageal reflux disease) Esophagitis presence: esophagitis presence not specified Qualified Code(s): K21.9 - Gastro-esophageal reflux disease without esophagitis (7) Hypertension Hypertension type: essential hypertension Qualified Code(s): I10 - Essential (primary) hypertension (8) Pneumonia Laterality: right Lung location: unspecified part of lung Pneumonia type: due to unspecified organism Qualified Code(s): J18.9 - Pneumonia, unspecified organism
[2021-01-19] MEDS ORDERED: SODIUM CHLORIDE 0.9% 1000ML 1,000 ML IV SCH (10:00)
[2021-01-19] MEDS: ENOXAPARIN INJ 40 MG/0.4 ML SYR SQ SCH (14:45)
[2021-01-19] MEDS: AMOXICILLIN/CLAVULANATE 875 MG TAB PO SCH (17:14)
[2021-01-19] MEDS: VERAPAMIL HCL 180 MG TABCR PO SCH (21:00)
[2021-01-19] MEDS ORDERED: CEFEPIME 2,000 MG in SYRINGE 0 ML IV SCH (22:00)
[2021-01-20] MEDS: ALBUTEROL HFA 8 GM INHALER INH SCH ×2 (01:11→07:33)
[2021-01-20] MEDS: LEVOTHYROXINE SODIUM 150 MCG TABLET PO SCH (05:42)
[2021-01-20 06:58] LABS: Basophils # (auto) 0.01 K/uL (0-0.2); Basophils % (auto) 0.1 %; Hematocrit (blood only) 42.9 % (42-52); Hemoglobin 14.2 g/dL (14.0-18.0); Immature Granulocytes # (auto) 0.11 K/uL (0.00-0.02); Immature Granulocytes % (auto) 0.8 %; Lymphocytes % (auto) 6.1 %; Mean Corpuscular Hemoglobin 30.4 pg (25-34); Mean Corpuscular Hgb Conc 33.1 g/dL (32-36); Mean Corpuscular Volume 91.9 fL (80-100); Mean Platelet Volume 12.1 fL (7.4-10.4); Monocytes # (auto) 1.65 K/uL (0.11-0.59); Monocytes % (auto) 12.5 %; Neutrophils # (auto) 10.59 K/uL (1.4-6.5); Neutrophils % (auto) 80.5 %; Platelet Count 273 K/uL (130-400); RDW Coefficient of Variation 14.9 % (11.5-14.5); RDW Standard Deviation 50.2 fL (36.4-46.3); Red Blood Count 4.67 M/uL (4.7-6.1); White Blood Count 13.16 K/uL (4.8-10.8)
[2021-01-20 07:31] LABS: Albumin Level 2.4 gm/dl (3.4-5.0); BUN Creatinine Ratio 25.9 (10-20); Calcium 9.1 mg/dl (8.5-10.1); Creatinine Clr Calc Pharmacy 50.9 ml/min; Est GFR (African American) 62.1; Est GFR (Non-African American) 53.6
[2021-01-20 07:35] LABS: Albumin Globulin Ratio 0.5 (0.9-2); Bilirubin,Total 0.5 mg/dl (0.2-1); Globulin 4.6 gm/dl (2.5-4.0)
[2021-01-20] MEDS: AMOXICILLIN/CLAVULANATE 875 MG TAB PO SCH (07:39)
[2021-01-20] MEDS: DOXYCYCLINE HYCLATE 100 MG CAP PO SCH (07:39)
[2021-01-20] MEDS: UMECLIDINIUM/VILANTEROL 62.5/25MCG 7 PUFFS/INHALER INH SCH (07:39)
[2021-01-20] MEDS: FLUTICASONE FUROATE 100MCG 14 PUFFS/INHALER INH SCH (07:39)
[2021-01-20] MEDS: guaiFENesin 600 MG TABCR PO SCH (07:40)
[2021-01-20] MEDS: BENZONATATE 100 MG CAPSULE PO SCH (07:40)
[2021-01-20] MEDS: predniSONE 50 MG TAB PO SCH (07:40)
[2021-01-20] MEDS: POTASSIUM CHLORIDE CRTAB 20 MEQ TABCR PO SCH (07:40)
[2021-01-20] MEDS: CALCIUM 600MG + VIT D 400 IU TAB PO SCH (07:41)
[2021-01-20] MEDS: PANTOprazole 40 MG TAB PO SCH (07:41)
[2021-01-20] MEDS: CHOLECALCIFEROL 1,000 UNITS 25 MCG TAB PO SCH (07:41)
--- NOTE | 2021-01-20 08:27 | Discharge Summary ---
Date of Service January 20, 2021 Admission HPI Per Admitting Provider 85 YOM with past medical history of COPD, PRISCILA(CPAP 4), hypothyroidism, hfPref, HTN, GERD, PVD with chronic dermatitis, BPH, pulmonary nodule, pneumonia, gout, left partial knee replacement, spinal stenosis with osteopetrosis, MRSA history. Patient comes to the emergency room today after feeling fevers and chills on Thursday that progressed to cough and shortness of breath. The patient endorses that he started coughing up green colored sputum at that time. He started having more fevers and chills through Thursday and as above progressed through Thursday. In the ER he was tachypneic, tachycardic, and with SPO2 of 89. He is on home oxygen for COPD/PRISCILA only at nighttime. He had blood cultures drawn, was started on Cefepime and Doxycycline in the ER and given 1L 0.9% saline. He has responded well to IV antibiotics and resuscitation, with HR 90, stabilized RR in the 20s with SPO2 99%, no rigors, and is not conversationally dyspneic. Will send repeat MRSA swab as last one in May-Jun was positive. He will be admitted to medical surgical floor for antibiotic therapy. Patient has previously been on doxycycline for 1 month for chronic cellulitis of his bilateral feet, and recently doxy and Augmentin for left jaw pain/infection by his PCP. Currently no need to change therapy but will follow his response. Admission Exam Per Admitting Provider PHYSICAL EXAM: General: awake, alert, no apparent distress Head: Normocephalic, atraumatic ENT: PERRLA, EOMI, no pharyngeal exudate, mucous membranes moist Neuro: AAO x 3, speech clear and appropriate, strength intact bilaterally 5/5, sensation intact and equal all extremities and dermatomes, no pronator drift Chest: equal rise and fall of the chest, no accessory muscle use, no heaves or thrills, Rhonchi throughout with egophony right > left on auscultation, on 2lNC, Cardiac: Regular rate and rhythm, telemetry reviewed, skin warm dry, cap refill <3 seconds, peripheral pulses +2 no JVD, no murmur. +2 edema to lower bilateral extremities GI: NABS x 4 quadrants, soft, nontender to palpation, no rebound, guarding or tenderness : Spontaneously voiding, no pain, no CVA tenderness, Extremities: Normal inspection, no peripheral edema or erythema, calfs nontender to palpation Psych: Normal mood and affect Skin: no rash or erythema Principal Diagnosis COMMUNITY ACQUIRED PNEUMONIA Discharge Exam General: awake, alert, NAD, dressed and sitting up in chair eating breakfast. Head: Normocephalic, atraumatic ENT: PERRLA, EOMI, no pharyngeal exudate, mucous membranes slightly dry Neuro: AAO x 3, speech clear and appropriate, strength intact bilaterally 5/5, sensation intact and equal all extremities and dermatomes, no pronator drift Resp: equal rise and fall of the chest, no accessory muscle use, no heaves or thrills, no cough, on ROOM AIR. Faint posterior RUL crackles, minimal faint RUL anterior wheezing. RLL rhonchi Cardiac: RRR, no r/m/g, chronic venous insufficiency, non-pitting edema LE, trace pedal edema. cap refill <3 seconds. GI: NABS x 4 quadrants, soft, nontender to palpation, no rebound, guarding or tenderness : Spontaneously voiding, no pain, no CVA tenderness, using urinal currently Extremities: Normal inspection, no peripheral erythema, calfs nontender to palpation. trace edema dante hose on Psych: Normal mood and affect, AOx3 Skin: no rash or erythema Discharge Data Allergies Allergy/AdvReac Type Severity Reaction Status Date / Time clarithromycin Allergy Intermediate RASH Verified 01/16/21 11:09 Consultations 01/16/21 10:49 ED Decision to Admit Stat Ordered Studies 01/16 ECHO 01/17/21 15:42 CT chest diagnostic w con Routine CXR 01/20 CXR Hospital Course (1) Pneumonia: With Sepsis Similar on presentation to his pneumonia last * Temp 37.6 C 01/16 * WBC 28k on admission and continued to improve * No further fever * BCx NGTD -- final still pending. Legionella urine antigen pending at d/c * CXR with RUL/RML opacity c/w PNA, repeat improving * CT Chest obtained -- reviewed by pulmonary and c/w CAP * Cefepime/Doxy with transition to Augmentin/Doxy 01/19 and continued at discharge to complete course * Prednisone 50mg x 5 days -- 1 more day at d/c * Flutter valve, incentive spirometer, Mucinex BID, albuterol * Tessalon pearls prn cough * Duonebs * Sputum cx light normal victor hugo * Supplemental O2 as needed * -- titrated to room air, 95%. 2step prior to d/c without need with ambulation (2) Leukocytosis: * WBC 28k on admission and continued to decline with treatment. See above (3) COPD (chronic obstructive pulmonary disease): * Patient with overlap syndrome with COPD and Asthma component, with chronic respiratory failure with hypoxia, wears 2L with CPAP qhs * - Continue Albuterol 2 Puff q6 scheduled for 24 hours * - Continue Trelegy 1 puff daily * - Continue Combivent nebs QID PRN * - Continue home oxygen HS w CPAP QHS Prednisone 50mg daily for 5 days as above Follows locally with Dr. Burt and will ask to weigh in if condition declines or sooner if needed -- feels CT with CAP and continue current treatment. Follow up routine outpatient and will need follow-up CT for multiple mildly enlarged mediastinal/bilateral hilar lymph nodes (likely reactive) (4) PRISCILA (obstructive sleep apnea): * No acute needs * CPAP at night 4CM H20 or titrate to comfort and adequate VT (5) Diastolic CHF: * No acute decompensation * Lasix 40mg daily (held day of d/c for some mild dehydration and to resume in AM) * Continue Verapamil 180mg HS (6) Hypertension: * As above * BP stable * Continued verapamil 180mg HS, lasix (7) Hypothyroidism: * Last TSH 1.06 Sep 2020. Repeat wnl * Continued levothyroxine 150mcg daily (8) GERD (gastroesophageal reflux disease): * Omeprazole 20 daily [employer]ILDING [employer] -- protonix 40mg daily while inpatient (9) PVD (peripheral vascular disease): * Chronic venous insufficiency with dermatitis and cellulitis in the past * - He has venostasis changes to his legs but no open areas or signs of infection from this standpoint * - He is wearing his compression hose- not prescription strength * - Continue those with SCD's * - He just received his SCD machine for home use but has not used it -- to continue at d/c (10) MRSA (methicillin resistant Staphylococcus aureus): * MRSA swab 07/03 positive, repeat also positive. * On Doxy as above which should help with MRSA coverage * Contact precautions maintained. BCx, sputum as above * Consider tx w mupirocin in future to help get rid (11) Pulmonary nodule: * The patient had a new nodule identified in June. * Following with pulmonary, with planned repeat CT scan in 6 months which should have been in December * CT chest with * 1. Extensive right upper lobe consolidation with additional mild multifocal opacities within the remainder of the lungs consistent with multifocal pneumonia. Follow-up chest CT in 3 months to ensure resolution is recommended. * 2. No change in an 8 mm lingular nodule. This can be assessed on follow-up chest CT. * 3. Moderate emphysema. * 4. Small right pleural effusion. * 5. Multiple mildly enlarged mediastinal and bilateral hilar lymph nodes which are likely reactive. These should be assessed on follow-up chest CT. * Will need follow up appointment with Dr. Burt at discharge (12) Osteoporosis, unspecified: * No acute needs continue with Calcium, Vit D (instructed to hold while on Doxy) (13) Acute and chronic respiratory failure: (14) DVT prophylaxis: * Lovenox SQ while inpatient * SCDs, TEDs Discharged home with home health arranged by case management. I certify that this patient is under my care and that I, or a physicians reading assistant working with me, had a face to-face encounter that meets the home health [id number] encounter requirements with this patient. The encounter with the patient was in whole, or in part, for the following medical condition, which is the primary reason for home health care (list medical condition): pneumonia I certify that, based on my findings, the following services are medically necessary home health services: My clinical findings support the need for the above services because: PT Assessment for Endurance / Balance / Strength PT Eval for Safety and Mobility PT Gait and Balance Training, Strengthening and Safety Further, I certify that my clinical findings support that this patient is homebound (i.e. absences from home require considerable and taxing effort and are for medical reasons or yazdanism services or infrequently or of short duration when for other reasons) because: Assistance of 1 Person for Ambulation/Activities Certification for Home Health Services: Based on the above findings, I certify that this patient is confined to the home and needs intermittent halfway care, physical therapy and/or speech therapy or continues to need occupational therapy. The patient is under my care, and I have initiated the establishment of the plan of care. This patient will be followed by a physician who will periodically review the plan of care. Total Time Total Time Spent Total Time Spent (In Minutes): 70 Discharge Plan Discharge Items Patient Disposition: Home - Home Health Services Reason For Visit: PNEUMONIA Discharge Diagnosis: Community acquired pneumonia Goals: You have been hospitalized for an acute medical problem. During your stay at [facility], we have made an effort to correct the problem that brought you to the hospital while keeping you as comfortable as possible. Medications were used to bring your condition under control and your discharge instructions will include directions for any medications you should take after leaving the hospital. Please make sure you see your Primary Care Provider as part of your follow up plan. Activity: Resume your previous activity Non-emergency contact: Primary Care Provider and Non Profit Job Titles Call non-emergency contact if: you have any medication questions, your symptoms worsen and you have a fever Follow-up/Referrals: Tyler Hawkins MD [Primary Care Provider] - Cody Burt MD [Physician] - (2-4 weeks) Diet: Heart Healthy Addtl Attending Provider Instructions: You have been hospitalized and found to have a pneumonia. You were placed on IV antibiotics and oral steroids and are being sent home on the following: * Augmentin 1 tablet by mouth twice daily for another 5 days after this evenings dose (you have been provided with tablet of this for tonight and can brass pickler prescription tomorrow to continue for 5 more days/10 pills total) * Doxycycline 100mg tablet by mouth twice daily for another 2 days after this evening's dose (please hold your calcium supplementations while completing this course and take with a full glass of water) * Prednisone 50mg by mouth for another 1 day * You should continue mucinex twice daily during this time to help thin secretions as well. Your Lasix was held today due to some dehydration but you may resume this tomorrow. You may continue to use your inhaler every 6 hours as needed and would strongly encourage you to use your nebulizer several times daily for the next couple of days until you are feeling better. CAT scan of your chest was done while inpatient which did not show any increase in the size of nodule from prior study. Imaging was reviewed by Dr. Burt during hospitalization and he felt this was community acquired pneumonia and to continue current antibiotics. A 2 step was done prior to discharge to see if he needs supplemental oxygen use at discharge with activity and this was negative. You will need to have follow up with Dr. Burt in the next couple weeks to monitor your progress. You have been set up for home health at discharge. Please follow up with your primary care provider in the next week to monitor your progress post-discharge. Please return to the emergency department with any worsening shortness of breath, fever, chest pain, or for any other symptoms that are concerning for you. It has been a pleasure being a part of the medical team providing for you while you have been in the hospital. Take care! Pending Studies at Discharge: Yes Studies:: Blood cultures -- no growth to date Legionella Urine Antigen Stand-Alone Forms: My [facility] Medications and DC Order Prescriptions: New doxycycline hyclate 100 mg Capsule 100 mg PO BID@0800,2000 2 Days Qty: 5 RF: 0 benzonatate [Tessalon Perles] 100 mg Capsule 100 mg PO TID PRN (Reason: cough) Qty: 12 RF: 0 prednisone 50 mg Tablet 50 mg PO QAM 1 Days Qty: 1 RF: 0 amoxicillin-pot clavulanate [Augmentin] 875-125 mg Tablet 1 tab PO BIDM 5 Days Qty: 11 RF: 0 guaifenesin [Mucinex] 600 mg Tablet Extended Release 12hr 600 mg PO Q12 5 Days Qty: 10 RF: 0 Continued potassium chloride 20 mEq tablet,ER particles/crystals 20 meq PO QAM Qty: 90 RF: 3 Prilosec OTC 20 mg tablet,delayed release (DR/EC) 20 mg PO QAM Qty: 90 RF: 3 albuterol sulfate [Ventolin HFA] 90 mcg/actuation HFA aerosol inhaler 2 puff inhalation Q4H PRN (Reason: shortness of breath or wheezing) Qty: 8.5 RF: 5 verapamil 180 mg tablet extended release 180 mg PO HS Qty: 90 RF: 3 ciclopirox 8 % solution 1 applic topical DAILY Qty: 6.6 RF: 2 (DME) Oxygen Home Liters Per Minute See Rx Instructions .ROUTE .MEDSUPPLY Qty: 1 RF: 0 ipratropium-albuterol 0.5 mg-3 mg(2.5 mg base)/3 mL solution for nebulization 3 ml INH QID PRN (Reason: shortness of breath) Qty: 1080 RF: 3 levothyroxine 150 mcg tablet 150 mcg PO QAM RF: 0 calcium carbonate-vitamin D3 [Calcium 500 With D] 500 mg(1,250mg) -400 unit Tablet 1 tab PO QAM RF: 0 Fiber (psyllium husk-sugar) 3.4 gram/11 gram Powder 1 tbsp PO QAM RF: 0 furosemide 40 mg tablet 40 mg PO QAM RF: 0 magnesium 250 mg Tablet 250 mg PO 3XWK RF: 0 cholecalciferol (vitamin D3) 1,000 unit (25 mcg) tablet 1,000 units PO QAM RF: 0 multivitamin Tablet 1 tab PO QAM RF: 0 Trelegy Ellipta 100-62.5-25 mcg blister with device 1 inh INH QAM RF: 0 Discharge Orders: Discharge Order (Routine); Ordered 01/20/21 Ordered By: Fanny Silveira/Other Patient Handouts: Preventing Pneumonia Admission Data Admit Date/Time: 01/16/21 13:01 Attending Provider: Edmundo Pickett Admit Provider: Lien Urban Primary Care Provider: Tyler Hawkins Other Providers: Lien Urban Other Interventions: Discharge Summary Assessment (RN) Last Done: 01/20/21 10:42 Coding Level of Care Code D/C Day Management >30 mins Diagnoses Pneumonia J18.9 Laterality: right Lung location: unspecified part of lung Pneumonia type: due to unspecified organism Leukocytosis D72.825 Leukocytosis type: bandemia COPD (chronic obstructive pulmonary disease) 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 PRISCILA (obstructive sleep apnea) G47.33 Diastolic CHF I50.32 Heart failure chronicity: chronic Hypertension I10 Hypertension type: essential hypertension Hypothyroidism E03.9 Hypothyroidism type: unspecified GERD (gastroesophageal reflux disease) K21.9 Esophagitis presence: esophagitis presence not specified PVD (peripheral vascular disease) I73.9 MRSA (methicillin resistant Staphylococcus aureus) A49.02 Pulmonary nodule R91.1 Osteoporosis, unspecified M81.0 Osteoporosis type: unspecified Presence of current pathological fracture: unspecified Acute and chronic respiratory failure J96.20 DVT prophylaxis Z29.9
--- NOTE | 2021-01-20 09:03 | XRay Report ---
XR chest 1V portable CLINICAL HISTORY: f/u PNA COMPARISON STUDY: Chest radiograph and chest CT January 17, 2021. FINDINGS: There is no pneumothorax. Right upper lobe consolidation has slightly improved. Additional bibasilar opacities are similar to prior exam. There is no evidence for pulmonary edema. Cardiomegaly is noted. Underlying emphysema is better depicted on prior chest CT. There are trace bilateral pleur al effusions. IMPRESSION: 1. Mild improvement in right upper lobe consolidation suggestive of pneumonia. Continued radiographic follow-up to ensure complete resolution is recommended. No significant change in bibasilar opacities . 2. Trace bilateral pleural effusions ACT 112: Negative or not required by law. Electronically signed by: Conner Villalpando M.D. 01/20/2021 9:02 AM
[2021-01-20] MEDS ORDERED: AMOXICILLIN/CLAVULANATE 875 MG TAB PO SCH (10:45)
== END 2021-01-20 12:27 | disposition home health service (06) | DRG 871 ==
LOC: ED 08:54 → SUATTDRO 13:01 → 3N 13:01

== ENCOUNTER 2021-02-23 19:43 | Inpatient (IN) ==
[2021-02-23] MEDS ORDERED: MoRPHine SULFATE 2 MG/ML CARP IV PRN (20:56)
[2021-02-23] MEDS ORDERED: MoRPHine SULFATE 4 MG/ML 1 ML CARP\\VIAL IV PRN (20:56)
[2021-02-23] MEDS ORDERED: SODIUM CHLORIDE 0.9% 1000ML 1,000 ML IV SCH (21:00)
[2021-02-23 22:04] LABS: Basophils # (auto) 0.01 K/uL (0-0.2); Basophils % (auto) 0.1 %; Eosinophils # (auto) 0.14 K/uL (0-0.5); Eosinophils % (auto) 1.2 %; Hematocrit (blood only) 45.9 % (42-52); Immature Granulocytes # (auto) 0.17 K/uL (0.00-0.02); Immature Granulocytes % (auto) 1.5 %; Lymphocytes # (auto) 1.08 K/uL (1.2-3.4); Lymphocytes % (auto) 9.5 %; Mean Corpuscular Hemoglobin 30.5 pg (25-34); Mean Corpuscular Hgb Conc 32.7 g/dL (32-36); Mean Corpuscular Volume 93.3 fL (80-100); Mean Platelet Volume 12.2 fL (7.4-10.4); Monocytes # (auto) 1.16 K/uL (0.11-0.59); Monocytes % (auto) 10.2 %; Neutrophils # (auto) 8.81 K/uL (1.4-6.5); Neutrophils % (auto) 77.5 %; Platelet Count 257 K/uL (130-400); RDW Coefficient of Variation 15.3 % (11.5-14.5); RDW Standard Deviation 52.6 fL (36.4-46.3); Red Blood Count 4.92 M/uL (4.7-6.1); White Blood Count 11.37 K/uL (4.8-10.8)
[2021-02-23 22:16] LABS: INR 0.9 (0.9-1.1); Partial Thromboplastin Time 25.2 Seconds (21.0-31.0); Prothrombin Time 9.5 Seconds (9.0-12.0)
[2021-02-23 22:20] LABS: Albumin Level 2.9 gm/dl (3.4-5.0); BUN Creatinine Ratio 23.9 (10-20); Calcium 8.9 mg/dl (8.5-10.1); Creatinine Clr Calc Pharmacy 63.7 ml/min; Est GFR (African American) 84.9 ml/min; Est GFR (Non-African American) 73.2 ml/min; Potassium 4.2 mmol/L (3.5-5.1)
[2021-02-23 22:23] LABS: Albumin Globulin Ratio 0.6 (0.9-2); Bilirubin,Total 0.8 mg/dl (0.2-1); Globulin 4.6 gm/dl (2.5-4.0); Total Protein 7.5 gm/dl (6.4-8.2)
[2021-02-23 23:04] LABS: Appearance Urine Clear (Clear); Bacteria Urine Automated Negative (Negative); Blood Urine Negative (Negative); Cast Urine Automated 0 /lpf (0-5); Color Urine Dark Yellow; Glucose Urine UA Negative (Negative); Ketones Urine Trace (Negative); Leukocyte Esterase Urine Negative (Negative); Nitrite Urine Negative (Negative); Protein Urine Trace (Negative); RBC Urine Automated 0-4 /hpf (0-4); Specific Gravity Urine 1.024 (1.000-1.030); Urobilinogen Urine Negative (Negative); pH Urine 6.5 (4.5-7.5)
[2021-02-23 23:05] LABS: Bilirubin Urine 1+ (Negative)
--- NOTE | 2021-02-24 00:12 | History & Physical Report ---
Date of Service February 24, 2021 Assessment & Plan (1) Closed hip fracture: Isma Wesley is a 85-year-old male with past medical history significant for COPD, GERD, hypertension, obstructive sleep apnea, recent pneumonia; who presents following a mechanical fall while trying to walk up steps earlier today. Right femoral neck fracture: -XR in ED of pelvis demonstrating concern for right femoral neck fracture -Orthopedic surgery consulted: Recommended XR femur and CT pelvis; potential fix ation in a.m. dependent on dedicated femur films and CT -CT pelvis demonstrating right femoral neck fracture that is displaced, angulated, and impacted; no acute pelvic fractures -NPO for potential surgery in a.m. COPD: -Transition home inhalers to hospital formulary -At baseline utilizes 2 L nasal cannula at night and with activity Hypothyroidism: -Hold home oral regimen GERD: -Hold home oral regimen Hypertension: -Hold home oral regimen CODE STATUS: Full code Diet: NPO for surgery (2) Hypothyroidism (acquired): (3) GERD (gastroesophageal reflux disease): (4) Hypertension: History of Present Illness Primary Care Provider: Tyler Hawkins MD Isma Wesley is a 85-year-old male with past medical history significant for COPD, GERD, hypertension, obstructive sleep apnea, recent pneumonia; who presents following a mechanical fall while trying to walk up steps earlier today. Was walking up the steps when he missed a step and landed on his right side. Had no loss of consciousness, dizziness, heart palpitations, chest pain, shortness of breath. Remembers the entirety of the event, had no bowel or bladder incontinence. X-ray of the pelvis demonstrating femoral neck fracture in ED. Allergies Allergy/AdvReac Type Severity Reaction Status Date / Time clarithromycin Allergy Intermediate RASH Verified 01/16/21 11:09 Home Medications Medication Instructions Recorded Confirmed Type magnesium 250 mg PO 3XWK 08/02/18 02/23/21 History cholecalciferol (vitamin D3) 25 1,000 units PO QAM tab 05/30/19 02/23/21 History mcg (1,000 unit) tablet Oxygen Home #1 ea 08/17/19 02/23/21 History ipratropium 0.5 mg-albuterol 3 mg 3 ml INH QID PRN #1080 ml 08/17/19 02/23/21 Rx (2.5 mg base)/3 mL nebulization soln levothyroxine 150 mcg PO QAM 05/07/20 02/23/21 History calcium carbonate-vitamin D3 1 tab PO QAM 06/22/20 02/23/21 History [Calcium 500 With D] multivitamin 1 tab PO QAM tab 09/04/20 02/23/21 History omeprazole magnesium 20 mg 20 mg PO QAM #90 tab 10/29/20 02/23/21 Rx tablet,delayed release potassium chloride 20 mEq 20 meq PO QAM #90 tab 10/29/20 02/23/21 Rx tablet,extended release(part/cryst) verapamil 180 mg tablet,extended 180 mg PO HS #90 tab 12/27/20 02/23/21 Rx release Trelegy Ellipta 1 inh INH QAM 01/16/21 02/23/21 History albuterol sulfate 90 mcg/actuation 2 puff INHALATION Q4H PRN #8.5 g 02/04/21 02/23/21 Rx aerosol inhaler benzonatate 100 mg capsule 100 mg PO TID PRN #12 cap 02/04/21 02/23/21 Rx furosemide 40 mg tablet 40 mg PO QAM #90 tab 02/13/21 02/23/21 Rx Past Med/Surg History Medical History BPH (benign prostatic hyperplasia) Cellulitis of left leg Chronic obstructive pulmonary disease Diastolic CHF Fluid retention in legs GERD (gastroesophageal reflux disease) History of bronchitis History of cellulitis Hypertension Hypothyroidism Hypothyroidism (acquired) Left lumbar radiculopathy Leg length discrepancy Lumbar spinal stenosis On home oxygen therapy 02 2LPM AT HS Osteoarthritis Osteoporosis, unspecified Personal history of MRSA (methicillin resistant Staphylococcus aureus) Pulmonary nodule Sepsis Sleep apnea cpap Spinal stenosis Urethral stricture Vitamin D deficiency Surgical History History of cardiac cath 12/2019 - [place] - increased edema - no stents/angioplasty History of cholecystectomy History of colonoscopy History of herniorrhaphy left inguinal History of partial knee replacement left History of tonsillectomy History of tooth extraction Hx of surgical procedure LEFT FEMUR FX WITH REPAIR Family History Mother Cerebral atherosclerosis Father Diverticulosis Other No significant family history Denies family history of Ovarian cancer Prostate cancer Myocardial infarction Breast cancer Colorectal cancer Social History Smoking Status: Former smoker Tobacco Type: Cigarettes and Pipe packs per day: 1; Years Smoked: 40; Cigarettes Per Day: 20; Number of Years Since Quit: 14; Second Hand Exposure: No; Do You Dip or Chew Tobacco: No; Hx Alcohol Use: Yes Alcohol type: beer Hx Substance Use: No Preferred Language: Tajik Communication Ability: Effective Visual Impairment: No Limitations Hearing Ability: Normal Grain Scooper Required: No Beliefs That Will Affect Care: None marital status: Current Living Situation: Spouse current occupational status: retired Other Information That Helps Us Care for You: No Feels Safe at Home: Yes Safety Concerns: Feels Safe At This Time Dental Care, Regularly: No Physical Activity Frequency: 1-2 Times per Week Seatbelt Use: always Sunscreen Use: Yes Assistive Devices: Cane, CPAP, Denture - Upper, Denture - Lower, Glasses and Walker Review of Systems Review of Systems: All systems reviewed & are unremarkable except as noted in HPI & below Physical Exam Constitutional: WD/WN, vitals as above Eyes: PERRL, conjunctivae normal, anicteric sclerae Respiratory: normal respiratory effort, lungs clear to auscultation Auscultation: no crackles, no rales, no rhonchi and no wheezes Cardiovascular: Rate/Rhythm: regular rate and regular rhythm Heart Sounds: no gallop, no murmur and no cardiac rub Vessels: normal peripheral pulses Extremities: + edema Gastrointestinal (Abdomen): Inspection/Auscultation: normal bowel sounds; abdomen not distended Percussion/Palpation: abdomen soft; abdomen nontender and no guarding Musculoskeletal: Hip: no effusion, no skin erythema, no ecchymosis and no surgical incision Skin: no rashes, warm and dry Neurologic: PERRL, EOMI, accommodation nl, no face palsy, no dysarthria CN's II-XI intact bilaterally and moves all extremities Psychiatric: Orientation: alert and oriented x 3 Results & Data Results & Data ([facility]) Vital Signs (Past 12 Hours) Vital Signs Temp Pulse Resp BP BP Pulse Ox 02/23/21 23:09 101 H 23 94 02/23/21 23:08 101 H 21 165/105 H 93 02/23/21 23:00 103 H 16 175/100 H 165/105 H 95 02/23/21 22:30 100 H 27 H 165/128 H 93 02/23/21 22:00 86 27 H 93 02/23/21 21:30 97 H 21 180/111 H 93 02/23/21 21:00 88 18 180/107 H 02/23/21 20:30 91 H 15 176/131 H 02/23/21 20:00 91 H 17 170/105 H 95 02/23/21 19:48 96 H 19 164/122 H 95 02/23/21 19:44 85 L 02/23/21 19:43 36.7 C 109 H 16 175/112 H 85 L Laboratory Results 02/23/21 02/23/21 02/23/21 Range/Units 22:41 21:53 21:53 WBC (4.8-10.8) K/uL RBC (4.7-6.1) M/uL Hgb (14.0-18.0) g/dL Hct (42-52) % MCV (80-100) fL MCH (25-34) pg MCHC (32-36) g/dL RDW Std Deviation (36.4-46.3) fL RDW Coeff of Jordan (11.5-14.5) % Plt Count (130-400) K/uL MPV (7.4-10.4) fL Immature Gran % (Auto) % Neut % (Auto) % Lymph % (Auto) % [place] % (Auto) % Eos % (Auto) % Baso % (Auto) % Neut # (Auto) (1.4-6.5) K/uL Lymph # (Auto) (1.2-3.4) K/uL Coryell # (Auto) (0.11-0.59) K/uL Eos # (Auto) (0-0.5) K/uL Baso # (Auto) (0-0.2) K/uL Immature Gran # (Auto) (0.00-0.02) K/uL PT 9.5 (9.0-12.0) Seconds INR 0.9 (0.9-1.1) APTT 25.2 (21.0-31.0) Seconds PTT Ratio 1.0 Sodium 142 (136-145) mmol/L Potassium 4.2 (3.5-5.1) mmol/L Chloride 111 H (98-107) mmol/L Carbon Dioxide 24 (21-32) mmol/L Anion Gap 7.0 (3-11) BUN 23 H (7-18) mg/dl Creatinine 0.95 (0.6-1.4) mg/dl Est Cr Clr Drug Dosing 63.7 ml/min Est GFR ( Amer) 84.9 ml/min Est GFR (Non-Af Amer) 73.2 ml/min BUN/Creatinine Ratio 23.9 H (10-20) Glucose 96 (70-99) mg/dl Calcium 8.9 (8.5-10.1) mg/dl Total Bilirubin 0.8 (0.2-1) mg/dl AST 26 (15-37) U/L ALT 23 (12-78) U/L Alkaline Phosphatase 61 (45-117) U/L Total Protein 7.5 (6.4-8.2) gm/dl Albumin 2.9 L (3.4-5.0) gm/dl Globulin 4.6 H (2.5-4.0) gm/dl Albumin/Globulin Ratio 0.6 L (0.9-2) Urine Color Dark Yellow Urine Appearance Clear (Clear) Urine pH 6.5 (4.5-7.5) Ur Specific Wood 1.024 (1.000-1.030) Urine Protein Trace H (Negative) Urine Glucose (UA) Negative (Negative) Urine Ketones Trace H (Negative) Urine Blood Negative (Negative) Urine Nitrite Negative (Negative) Urine Bilirubin 1+ H (Negative) Urine Urobilinogen Negative (Negative) Ur Leukocyte Esterase Negative (Negative) Urine WBC (Auto) 1-5 (0-5) /hpf Urine RBC (Auto) 0-4 (0-4) /hpf U Hyaline Cast (Auto) 0 (0-5) /lpf U Epithel Cells (Auto) 5-10 H (0-5) /lpf Urine Bacteria (Auto) Negative (Negative) COVID-19 Eval Order SARS-CoV-2 (PCR) (Negative) Blood Type Antibody Screen 02/23/21 02/23/21 02/23/21 Range/Units 21:53 21:53 21:30 WBC 11.37 H (4.8-10.8) K/uL RBC 4.92 (4.7-6.1) M/uL Hgb 15.0 (14.0-18.0) g/dL Hct 45.9 (42-52) % MCV 93.3 (80-100) fL MCH 30.5 (25-34) pg MCHC 32.7 (32-36) g/dL RDW Std Deviation 52.6 H (36.4-46.3) fL RDW Coeff of Jordan 15.3 H (11.5-14.5) % Plt Count 257 (130-400) K/uL MPV 12.2 H (7.4-10.4) fL Immature Gran % (Auto) 1.5 % Neut % (Auto) 77.5 % Lymph % (Auto) 9.5 % Coryell % (Auto) 10.2 % Eos % (Auto) 1.2 % Baso % (Auto) 0.1 % Neut # (Auto) 8.81 H (1.4-6.5) K/uL Lymph # (Auto) 1.08 L (1.2-3.4) K/uL Coryell # (Auto) 1.16 H (0.11-0.59) K/uL Eos # (Auto) 0.14 (0-0.5) K/uL Baso # (Auto) 0.01 (0-0.2) K/uL Immature Gran # (Auto) 0.17 H (0.00-0.02) K/uL PT (9.0-12.0) Seconds INR (0.9-1.1) APTT (21.0-31.0) Seconds PTT Ratio Sodium (136-145) mmol/L Potassium (3.5-5.1) mmol/L Chloride (98-107) mmol/L Carbon Dioxide (21-32) mmol/L Anion Gap (3-11) BUN (7-18) mg/dl Creatinine (0.6-1.4) mg/dl Est Cr Clr Drug Dosing ml/min Est GFR ( Amer) ml/min Est GFR (Non-Af Amer) ml/min BUN/Creatinine Ratio (10-20) Glucose (70-99) mg/dl Calcium (8.5-10.1) mg/dl Total Bilirubin (0.2-1) mg/dl AST (15-37) U/L ALT (12-78) U/L Alkaline Phosphatase (45-117) U/L Total Protein (6.4-8.2) gm/dl Albumin (3.4-5.0) gm/dl Globulin (2.5-4.0) gm/dl Albumin/Globulin Ratio (0.9-2) Urine Color Urine Appearance (Clear) Urine pH (4.5-7.5) Ur Specific Wood (1.000-1.030) Urine Protein (Negative) Urine Glucose (UA) (Negative) Urine Ketones (Negative) Urine Blood (Negative) Urine Nitrite (Negative) Urine Bilirubin (Negative) Urine Urobilinogen (Negative) Ur Leukocyte Esterase (Negative) Urine WBC (Auto) (0-5) /hpf Urine RBC (Auto) (0-4) /hpf U Hyaline Cast (Auto) (0-5) /lpf U Epithel Cells (Auto) (0-5) /lpf Urine Bacteria (Auto) (Negative) COVID-19 Eval Order SARS-CoV-2 (PCR) NEGATIVE (Negative) Blood Type A Positive Antibody Screen NEGATIVE 02/23/21 Range/Units 21:30 WBC (4.8-10.8) K/uL RBC (4.7-6.1) M/uL Hgb (14.0-18.0) g/dL Hct (42-52) % MCV (80-100) fL MCH (25-34) pg MCHC (32-36) g/dL RDW Std Deviation (36.4-46.3) fL RDW Coeff of Jordan (11.5-14.5) % Plt Count (130-400) K/uL MPV (7.4-10.4) fL Immature Gran % (Auto) % Neut % (Auto) % Lymph % (Auto) % [place] % (Auto) % Eos % (Auto) % Baso % (Auto) % Neut # (Auto) (1.4-6.5) K/uL Lymph # (Auto) (1.2-3.4) K/uL [place] # (Auto) (0.11-0.59) K/uL Eos # (Auto) (0-0.5) K/uL Baso # (Auto) (0-0.2) K/uL Immature Gran # (Auto) (0.00-0.02) K/uL PT (9.0-12.0) Seconds INR (0.9-1.1) APTT (21.0-31.0) Seconds PTT Ratio Sodium (136-145) mmol/L Potassium (3.5-5.1) mmol/L Chloride (98-107) mmol/L Carbon Dioxide (21-32) mmol/L Anion Gap (3-11) BUN (7-18) mg/dl Creatinine (0.6-1.4) mg/dl Est Cr Clr Drug Dosing ml/min Est GFR ( Amer) ml/min Est GFR (Non-Af Amer) ml/min BUN/Creatinine Ratio (10-20) Glucose (70-99) mg/dl Calcium (8.5-10.1) mg/dl Total Bilirubin (0.2-1) mg/dl AST (15-37) U/L ALT (12-78) U/L Alkaline Phosphatase (45-117) U/L Total Protein (6.4-8.2) gm/dl Albumin (3.4-5.0) gm/dl Globulin (2.5-4.0) gm/dl Albumin/Globulin Ratio (0.9-2) Urine Color Urine Appearance (Clear) Urine pH (4.5-7.5) Ur Specific Wood (1.000-1.030) Urine Protein (Negative) Urine Glucose (UA) (Negative) Urine Ketones (Negative) Urine Blood (Negative) Urine Nitrite (Negative) Urine Bilirubin (Negative) Urine Urobilinogen (Negative) Ur Leukocyte Esterase (Negative) Urine WBC (Auto) (0-5) /hpf Urine RBC (Auto) (0-4) /hpf U Hyaline Cast (Auto) (0-5) /lpf U Epithel Cells (Auto) (0-5) /lpf Urine Bacteria (Auto) (Negative) COVID-19 Eval Order Covid19 at [facility] SARS-CoV-2 (PCR) (Negative) Blood Type Antibody Screen Diagnostic Findings CT HEAD: Involutional and chronic small vessel ischemic changes. No ICH, mass-effect, or edema. No skull fracture. Sinuses and mastoid air cells are clear. Radiologist: Lulú Boggs M.D. CT C SPINE: Osteopenia and degenerative changes. No acute fracture or subluxation. Radiologist: Lulú Boggs M.D. CT PELVIS: Displaced, angled, and impacted fracture of the right femoral neck. There is diffuse osteopenia. Severe degenerative facet arthrosis is seen in the lumbosacral junction. Left hip screw attached to femur maddy spanning an old healed left proximal femur fracture. No acute pelvic fracture is seen. Severe diverticulosis of the sigmoid colon. No acute inflammatory changes are seen involving the bowel. The urinary bladder is decompressed by Carrero catheter. Radiologist: Shaggy Valerio MD Supervising Physician Co-Signing Physician Notes Attending addendum: I have physically seen this patient, have supervised the medical residents activities, and agree with the H&P unless as otherwise noted. Assessment and Plan: Closed right hip fracture- N.p.o. after midnight Geriatric hip fracture protocol order set COPD- Baseline 2 L nasal cannula oxygen, with pulse ox target 92% DuoNebs every 2 hours as needed Continue home inhalers GERD- Famotidine 20 mg IV every 12 hours- Hypertension- Medications on hold due to relatively low blood pressure- Remaining orders and notations as noted Resident Activity Tracking Resident Involvement: Resident Care Provided Care Provided: Adult Hospital Medicine (1) Closed hip fracture Encounter type: initial encounter Laterality: right Qualified Code(s): S72.001A - Fracture of unspecified part of neck of right femur, initial encounter for closed fracture (2) GERD (gastroesophageal reflux disease) Esophagitis presence: esophagitis presence not specified Qualified Code(s): K21.9 - Gastro-esophageal reflux disease without esophagitis (3) Hypertension Hypertension type: essential hypertension Qualified Code(s): I10 - Essential (primary) hypertension
[2021-02-24] MEDS ORDERED: MoRPHine SULFATE 2 MG/ML CARP IV PRN (00:47)
[2021-02-24] MEDS ORDERED: MoRPHine SULFATE 4 MG/ML 1 ML CARP\\VIAL IV PRN (00:47)
--- NOTE | 2021-02-24 00:49 | Emergency Department Note ---
History of Present Illness General Chief complaint: Fall Stated complaint: FALL/HIP PAIN Time Seen by Provider: 02/23/21 20:10 History of Present Illness Provider complaint: Fall right hip pain Onset (ago): hour(s) 1 Location: lower extremity and right Radiation: non-radiation Severity: mild Pain Consistency: + constant Maximum Pain Intensity: 1 Current Pain Intensity: 1 Quality: + stabbing, + aching, + sharp and + dull Relieved By: + none Exacerbated By: + none Associated symptoms: no chest pain, no cough, no diaphoresis, no fever/chills, no headaches, no nausea/vomiting, no rash, no shortness of breath, no syncope and no weakness 85-year-old male presents emergency department status post fall.Patient reports he fell from his RV and tripped approximately 1 hour ago. Patient reporting pain in his right hip. Patient reports he did hit his head but did not have any loss of consciousness. Patient is not on any blood thinners. Patient reports no headache. Patient reports he also hit his elbow but is not having any elbow pain. Home Medications Medication Instructions Recorded Confirmed Type magnesium 250 mg PO 3XWK 08/02/18 02/23/21 History cholecalciferol (vitamin D3) 25 1,000 units PO QAM tab 05/30/19 02/23/21 History mcg (1,000 unit) tablet Oxygen Home #1 ea 08/17/19 02/23/21 History ipratropium 0.5 mg-albuterol 3 mg 3 ml INH QID PRN #1080 ml 08/17/19 02/23/21 Rx (2.5 mg base)/3 mL nebulization soln levothyroxine 150 mcg PO QAM 05/07/20 02/23/21 History calcium carbonate-vitamin D3 1 tab PO QAM 06/22/20 02/23/21 History [Calcium 500 With D] multivitamin 1 tab PO QAM tab 09/04/20 02/23/21 History omeprazole magnesium 20 mg 20 mg PO QAM #90 tab 10/29/20 02/23/21 Rx tablet,delayed release potassium chloride 20 mEq 20 meq PO QAM #90 tab 10/29/20 02/23/21 Rx tablet,extended release(part/cryst) verapamil 180 mg tablet,extended 180 mg PO HS #90 tab 12/27/20 02/23/21 Rx release Trelegy Ellipta 1 inh INH QAM 01/16/21 02/23/21 History albuterol sulfate 90 mcg/actuation 2 puff INHALATION Q4H PRN #8.5 g 02/04/21 02/23/21 Rx aerosol inhaler benzonatate 100 mg capsule 100 mg PO TID PRN #12 cap 02/04/21 02/23/21 Rx furosemide 40 mg tablet 40 mg PO QAM #90 tab 02/13/21 02/23/21 Rx Allergies Allergy/AdvReac Type Severity Reaction Status Date / Time clarithromycin Allergy Intermediate RASH Verified 01/16/21 11:09 Past Med/Surg History Medical History BPH (benign prostatic hyperplasia) Cellulitis of left leg Chronic obstructive pulmonary disease Diastolic CHF Fluid retention in legs GERD (gastroesophageal reflux disease) History of bronchitis History of cellulitis Hypertension Hypothyroidism Hypothyroidism (acquired) Left lumbar radiculopathy Leg length discrepancy Lumbar spinal stenosis On home oxygen therapy 02 2LPM AT HS Osteoarthritis Osteoporosis, unspecified Personal history of MRSA (methicillin resistant Staphylococcus aureus) Pulmonary nodule Sepsis Sleep apnea cpap Spinal stenosis Urethral stricture Vitamin D deficiency Surgical History History of cardiac cath 12/2019 - [place] - increased edema - no stents/angioplasty History of cholecystectomy History of colonoscopy History of herniorrhaphy left inguinal History of partial knee replacement left History of tonsillectomy History of tooth extraction Hx of surgical procedure LEFT FEMUR FX WITH REPAIR Family History Mother Cerebral atherosclerosis Father Diverticulosis Other No significant family history Denies family history of Ovarian cancer Prostate cancer Myocardial infarction Breast cancer Colorectal cancer Social History Smoking Status: Former smoker Tobacco Type: Cigarettes and Pipe packs per day: 1; Years Smoked: 40; Cigarettes Per Day: 20; Number of Years Since Quit: 14; Second Hand Exposure: No; Hx Alcohol Use: Yes Alcohol type: beer Hx Substance Use: No Preferred Language: Danish Communication Ability: Effective Visual Impairment: No Limitations Hearing Ability: Normal 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 Required: No Beliefs That Will Affect Care: None marital status: Current Living Situation: Spouse current occupational status: retired Feels Safe at Home: Yes Dental Care, Regularly: No Physical Activity Frequency: 1-2 Times per Week Seatbelt Use: always Sunscreen Use: Yes Assistive Devices: None Review of Systems A total of 10 systems reviewed and were otherwise negative Physical Exam Vital Signs Vital Signs - 24 hr 02/23/21 19:43 02/23/21 19:44 02/23/21 19:48 Temperature 36.7 C Temperature Source Oral Pulse Rate 109 H 96 H Pulse Rate from SpO2 Sensor 96 H Respiratory Rate 16 19 Respiratory Effort / Characteristics Non-Labored Spontaneous Respiratory Depth Normal Respiratory Pattern Regular Blood Pressure 175/112 H 164/122 H Blood Pressure [Right Arm] Blood Pressure Mean 133 136 Blood Pressure Mean [Right Arm] Blood Pressure Position Lying Blood Pressure Position [Right Arm] Pulse Oximetry 85 L 85 L 95 Oxygen Delivery Method Room Air Nasal Cannula Oxygen Flow Rate 3 Sepsis Recent Fever Within 48 Hours No Sepsis New/Unexplained Change in Mental Status No Sepsis Action Taken by Nursing No Action Required Oxygen Flow Rate - Titration 3 Pulse Oximetry Post Tiitration 95 02/23/21 20:00 02/23/21 20:30 02/23/21 21:00 Temperature Temperature Source Pulse Rate 91 H 91 H 88 Pulse Rate from SpO2 Sensor 91 H Respiratory Rate 17 15 18 Respiratory Effort / Characteristics Respiratory Depth Respiratory Pattern Blood Pressure 170/105 H 176/131 H 180/107 H Blood Pressure [Right Arm] Blood Pressure Mean 126 146 131 Blood Pressure Mean [Right Arm] Blood Pressure Position Blood Pressure Position [Right Arm] Pulse Oximetry 95 Oxygen Delivery Method Oxygen Flow Rate 3 Sepsis Recent Fever Within 48 Hours Sepsis New/Unexplained Change in Mental Status Sepsis Action Taken by Nursing Oxygen Flow Rate - Titration Pulse Oximetry Post Tiitration 02/23/21 21:30 02/23/21 22:00 02/23/21 22:30 Temperature Temperature Source Pulse Rate 97 H 86 100 H Pulse Rate from SpO2 Sensor 100 H 97 H 102 H Respiratory Rate 21 27 H 27 H Respiratory Effort / Characteristics Respiratory Depth Respiratory Pattern Blood Pressure 180/111 H 165/128 H Blood Pressure [Right Arm] Blood Pressure Mean 134 140 Blood Pressure Mean [Right Arm] Blood Pressure Position Blood Pressure Position [Right Arm] Pulse Oximetry 93 93 93 Oxygen Delivery Method Nasal Cannula Oxygen Flow Rate 3 3 3 Sepsis Recent Fever Within 48 Hours Sepsis New/Unexplained Change in Mental Status Sepsis Action Taken by Nursing Oxygen Flow Rate - Titration Pulse Oximetry Post Tiitration 02/23/21 23:00 02/23/21 23:08 02/23/21 23:09 Temperature Temperature Source Pulse Rate 103 H 101 H 101 H Pulse Rate from SpO2 Sensor 96 H 99 H 100 H Respiratory Rate 16 21 23 Respiratory Effort / Characteristics Non-Labored Spontaneous Respiratory Depth Normal Respiratory Pattern Blood Pressure 175/100 H 165/105 H Blood Pressure [Right Arm] 165/105 H Blood Pressure Mean 125 125 Blood Pressure Mean [Right Arm] 125 Blood Pressure Position Blood Pressure Position [Right Arm] Lying Pulse Oximetry 95 93 94 Oxygen Delivery Method Nasal Cannula Oxygen Flow Rate 3 3 Sepsis Recent Fever Within 48 Hours Sepsis New/Unexplained Change in Mental Status Sepsis Action Taken by Nursing Oxygen Flow Rate - Titration Pulse Oximetry Post Tiitration 02/24/21 00:00 02/24/21 00:30 Temperature Temperature Source Pulse Rate 103 H 103 H Pulse Rate from SpO2 Sensor 103 H 100 H Respiratory Rate 26 H 23 Respiratory Effort / Characteristics Respiratory Depth Respiratory Pattern Blood Pressure 173/89 H Blood Pressure [Right Arm] Blood Pressure Mean 117 Blood Pressure Mean [Right Arm] Blood Pressure Position Blood Pressure Position [Right Arm] Pulse Oximetry 93 95 Oxygen Delivery Method Oxygen Flow Rate Sepsis Recent Fever Within 48 Hours Sepsis New/Unexplained Change in Mental Status Sepsis Action Taken by Nursing Oxygen Flow Rate - Titration Pulse Oximetry Post Tiitration Physical Exam GENERAL: He is oriented to person, place, and time. He appears well-developed and well-nourished. He does not appear distressed. HENT: Exam performed. - Head: Normocephalic and atraumatic. - Right Ear: External ear normal. No mastoid tenderness. - Left Ear: External ear normal. No mastoid tenderness. - Mouth/Throat: The oropharynx is clear and moist. No trismus in the jaw. No dental abscesses or uvula swelling. No oropharyngeal exudate or tonsillar abscesses. EYES: Conjunctivae and EOM are normal. Pupils are equal, round, and reactive to light. Right eye exhibits no discharge. Left eye exhibits no discharge. No scleral icterus. NECK: Normal range of motion. Neck supple. No JVD present. No spinous process tenderness present. No carotid bruit present. No rigidity. No tracheal deviation and normal range of motion present. No Brudzinski's sign and no Kernig's sign noted. CV: Normal rate, regular rhythm, normal heart sounds and intact distal pulses. There is no peripheral edema. Palpable radial pulses bue. PULM/CHEST: Effort normal and breath sounds normal. No respiratory distress. No stridor. He has no wheezes. He has no rales. - Chest Wall: He exhibits no tenderness. ABD: The abdomen is soft. Bowel sounds are normal. He has no distension. No mass is present. There is no tenderness. There is no rebound, no guarding, no Yuan's sign and no tenderness at McBurney's point. Rovsig negative. MUSC/SKEL: Pain on palpation of the right hip. Right lower extremity is sh ortened and externally rotated. Left elbow skin tear full range of motion of left elbow. NEURO: GCS eye subscore is 4. GCS verbal subscore is 5. GCS motor subscore is 6. Course Course 2010: The patient was evaluated in room B5. A complete history and physical exam was performed Cardiac monitoring: An order was placed for continuous cardiac monitoring. The monitor shows a rate of 100 with sinus rhythm Patient hypoxic on arrival. Patient reports he does wear oxygen at night. Clinically the patient has a right hip fracture. We will plan on admitting the patient to the hospital service. Patient states he has Dr. Valerio is an orthopedist who did his previous hip. We will admit the patient to the medicine service after labs and CT of the head and C-spine are cleared Dr. Valerio will be on consult. 0047: CT of the head and C-spine within normal limits. X-ray does show right hip fracture. Chest x-ray negative for pneumothorax or rib fracture. Labs within normal limits. Patient will be admitted to the [facility] hospitalist team. Administered Medications Sodium Chloride (Nss 1000ml) 1,000 mls @ 75 mls/hr IV .[id number] [facility] Stop: 02/24/21 10:19 Last Admin: 02/23/21 22:26 Dose: 75 mls/hr Documented by: [id number] Morphine Sulfate (Morphine Sulfate 2 Mg/Ml Carp) 2 mg IV Q4 PRN PRN Reason: Moderate Pain (Rating 3,4,5,6) Stop: 03/09/21 20:55 Last Admin: 02/23/21 22:27 Dose: 2 mg Documented by: [id number] Medical Decision Making Laboratory Data Result diagrams: 02/23/21 21:53 02/23/21 21:53 Lab Results 02/23/21 02/23/21 02/23/21 Range/Units 21:30 21:30 21:53 WBC (4.8-10.8) K/uL RBC (4.7-6.1) M/uL Hgb (14.0-18.0) g/dL Hct (42-52) % MCV (80-100) fL MCH (25-34) pg MCHC (32-36) g/dL RDW Std Deviation (36.4-46.3) fL RDW Coeff of [place] (11.5-14.5) % Plt Count (130-400) K/uL MPV (7.4-10.4) fL Immature Gran % (Auto) % Neut % (Auto) % Lymph % (Auto) % [place] % (Auto) % Eos % (Auto) % Baso % (Auto) % Neut # (Auto) (1.4-6.5) K/uL Lymph # (Auto) (1.2-3.4) K/uL [place] # (Auto) (0.11-0.59) K/uL Eos # (Auto) (0-0.5) K/uL Baso # (Auto) (0-0.2) K/uL Immature Gran # (Auto) (0.00-0.02) K/uL PT (9.0-12.0) Seconds INR (0.9-1.1) APTT (21.0-31.0) Seconds PTT Ratio Sodium (136-145) mmol/L Potassium (3.5-5.1) mmol/L Chloride (98-107) mmol/L Carbon Dioxide (21-32) mmol/L Anion Gap (3-11) BUN (7-18) mg/dl Creatinine (0.6-1.4) mg/dl Est Cr Clr Drug Dosing ml/min Est GFR ( Amer) ml/min Est GFR (Non-Af Amer) ml/min BUN/Creatinine Ratio (10-20) Glucose (70-99) mg/dl Calcium (8.5-10.1) mg/dl Total Bilirubin (0.2-1) mg/dl AST (15-37) U/L ALT (12-78) U/L Alkaline Phosphatase (45-117) U/L Total Protein (6.4-8.2) gm/dl Albumin (3.4-5.0) gm/dl Globulin (2.5-4.0) gm/dl Albumin/Globulin Ratio (0.9-2) Urine Color Urine Appearance (Clear) Urine pH (4.5-7.5) Ur Specific [place] (1.000-1.030) Urine Protein (Negative) Urine Glucose (UA) (Negative) Urine Ketones (Negative) Urine Blood (Negative) Urine Nitrite (Negative) Urine Bilirubin (Negative) Urine Urobilinogen (Negative) Ur Leukocyte Esterase (Negative) Urine WBC (Auto) (0-5) /hpf Urine RBC (Auto) (0-4) /hpf U Hyaline Cast (Auto) (0-5) /lpf U Epithel Cells (Auto) (0-5) /lpf Urine Bacteria (Auto) (Negative) COVID-19 Eval Order Covid19 at [facility] SARS-CoV-2 (PCR) NEGATIVE (Negative) Blood Type A Positive Antibody Screen NEGATIVE 02/23/21 02/23/21 02/23/21 Range/Units 21:53 21:53 21:53 WBC 11.37 H (4.8-10.8) K/uL RBC 4.92 (4.7-6.1) M/uL Hgb 15.0 (14.0-18.0) g/dL Hct 45.9 (42-52) % MCV 93.3 (80-100) fL MCH 30.5 (25-34) pg MCHC 32.7 (32-36) g/dL RDW Std Deviation 52.6 H (36.4-46.3) fL RDW Coeff of [place] 15.3 H (11.5-14.5) % Plt Count 257 (130-400) K/uL MPV 12.2 H (7.4-10.4) fL Immature Gran % (Auto) 1.5 % Neut % (Auto) 77.5 % Lymph % (Auto) 9.5 % [place] % (Auto) 10.2 % Eos % (Auto) 1.2 % Baso % (Auto) 0.1 % Neut # (Auto) 8.81 H (1.4-6.5) K/uL Lymph # (Auto) 1.08 L (1.2-3.4) K/uL [place] # (Auto) 1.16 H (0.11-0.59) K/uL Eos # (Auto) 0.14 (0-0.5) K/uL Baso # (Auto) 0.01 (0-0.2) K/uL Immature Gran # (Auto) 0.17 H (0.00-0.02) K/uL PT 9.5 (9.0-12.0) Seconds INR 0.9 (0.9-1.1) APTT 25.2 (21.0-31.0) Seconds PTT Ratio 1.0 Sodium 142 (136-145) mmol/L Potassium 4.2 (3.5-5.1) mmol/L Chloride 111 H (98-107) mmol/L Carbon Dioxide 24 (21-32) mmol/L Anion Gap 7.0 (3-11) BUN 23 H (7-18) mg/dl Creatinine 0.95 (0.6-1.4) mg/dl Est Cr Clr Drug Dosing 63.7 ml/min Est GFR ( Amer) 84.9 ml/min Est GFR (Non-Af Amer) 73.2 ml/min BUN/Creatinine Ratio 23.9 H (10-20) Glucose 96 (70-99) mg/dl Calcium 8.9 (8.5-10.1) mg/dl Total Bilirubin 0.8 (0.2-1) mg/dl AST 26 (15-37) U/L ALT 23 (12-78) U/L Alkaline Phosphatase 61 (45-117) U/L Total Protein 7.5 (6.4-8.2) gm/dl Albumin 2.9 L (3.4-5.0) gm/dl Globulin 4.6 H (2.5-4.0) gm/dl Albumin/Globulin Ratio 0.6 L (0.9-2) Urine Color Urine Appearance (Clear) Urine pH (4.5-7.5) Ur Specific [place] (1.000-1.030) Urine Protein (Negative) Urine Glucose (UA) (Negative) Urine Ketones (Negative) Urine Blood (Negative) Urine Nitrite (Negative) Urine Bilirubin (Negative) Urine Urobilinogen (Negative) Ur Leukocyte Esterase (Negative) Urine WBC (Auto) (0-5) /hpf Urine RBC (Auto) (0-4) /hpf U Hyaline Cast (Auto) (0-5) /lpf U Epithel Cells (Auto) (0-5) /lpf Urine Bacteria (Auto) (Negative) COVID-19 Eval Order SARS-CoV-2 (PCR) (Negative) Blood Type Antibody Screen 02/23/21 Range/Units 22:41 WBC (4.8-10.8) K/uL RBC (4.7-6.1) M/uL Hgb (14.0-18.0) g/dL Hct (42-52) % MCV (80-100) fL MCH (25-34) pg MCHC (32-36) g/dL RDW Std Deviation (36.4-46.3) fL RDW Coeff of [place] (11.5-14.5) % Plt Count (130-400) K/uL MPV (7.4-10.4) fL Immature Gran % (Auto) % Neut % (Auto) % Lymph % (Auto) % [place] % (Auto) % Eos % (Auto) % Baso % (Auto) % Neut # (Auto) (1.4-6.5) K/uL Lymph # (Auto) (1.2-3.4) K/uL [place] # (Auto) (0.11-0.59) K/uL Eos # (Auto) (0-0.5) K/uL Baso # (Auto) (0-0.2) K/uL Immature Gran # (Auto) (0.00-0.02) K/uL PT (9.0-12.0) Seconds INR (0.9-1.1) APTT (21.0-31.0) Seconds PTT Ratio Sodium (136-145) mmol/L Potassium (3.5-5.1) mmol/L Chloride (98-107) mmol/L Carbon Dioxide (21-32) mmol/L Anion Gap (3-11) BUN (7-18) mg/dl Creatinine (0.6-1.4) mg/dl Est Cr Clr Drug Dosing ml/min Est GFR ( Amer) ml/min Est GFR (Non-Af Amer) ml/min BUN/Creatinine Ratio (10-20) Glucose (70-99) mg/dl Calcium (8.5-10.1) mg/dl Total Bilirubin (0.2-1) mg/dl AST (15-37) U/L ALT (12-78) U/L Alkaline Phosphatase (45-117) U/L Total Protein (6.4-8.2) gm/dl Albumin (3.4-5.0) gm/dl Globulin (2.5-4.0) gm/dl Albumin/Globulin Ratio (0.9-2) Urine Color Dark Yellow Urine Appearance Clear (Clear) Urine pH 6.5 (4.5-7.5) Ur Specific [place] 1.024 (1.000-1.030) Urine Protein Trace H (Negative) Urine Glucose (UA) Negative (Negative) Urine Ketones Trace H (Negative) Urine Blood Negative (Negative) Urine Nitrite Negative (Negative) Urine Bilirubin 1+ H (Negative) Urine Urobilinogen Negative (Negative) Ur Leukocyte Esterase Negative (Negative) Urine WBC (Auto) 1-5 (0-5) /hpf Urine RBC (Auto) 0-4 (0-4) /hpf U Hyaline Cast (Auto) 0 (0-5) /lpf U Epithel Cells (Auto) 5-10 H (0-5) /lpf Urine Bacteria (Auto) Negative (Negative) COVID-19 Eval Order SARS-CoV-2 (PCR) (Negative) Blood Type Antibody Screen Imaging Data My Impression: Pelvis x-ray: Right hip fracture Chest x-ray negative. Airway clear. No pneumothorax. No consolidation. No cardiomegaly or cephalization.. No free air under the diaphragm. No fractures of the skeletal structures. Radiologist's Impression: Preliminary Findings Only See Final Report For Complete Findings CT C SPINE: Osteopenia and degenerative changes. No acute fracture or subluxation. Radiologist: Lulú Boggs M.D. Study ready at 23:17 and initial results transmitted at 23:44 Preliminary Findings Only See Final Report For Complete Findings CT HEAD: Involutional and chronic small vessel ischemic changes. No ICH, mass-effect, or edema. No skull fracture. Sinuses and mastoid air cells are clear. Radiologist: Lulú Boggs M.D. Study ready at 23:22 and initial results transmitted at 23:44 ECG Data Indication: + other (preop) Rate (beats per minute): 97 Rhythm: + normal sinus ECG Intervals/blocks: + Normal QRS, + Normal SC and + Normal QT-c ECG ST segments: + Normal ST segments [facility] Narrative 2009: The patient was evaluated in room B5. A complete history and physical exam was performed Cardiac monitoring: An order was placed for continuous cardiac monitoring. The monitor shows a rate of 100 with sinus rhythm Patient hypoxic on arrival. Patient reports he does wear oxygen at night. Clinically the patient has a right hip fracture. We will plan on admitting the patient to the hospital service. Patient states he has Dr. Valerio is an orthopedist who did his previous hip. We will admit the patient to the medicine service after labs and CT of the head and C-spine are cleared Dr. Valerio will be on consult. 0047: CT of the head and C-spine within normal limits. X-ray does show right hip fracture. Chest x-ray negative for pneumothorax or rib fracture. Labs within nor mal limits. Patient will be admitted to the [facility] hospitalist team. Impression & Plan Closed hip fracture Discharge Plan Visit Data Chief Complaint: Fall Stated Complaint: FALL/HIP PAIN ED Provider: Rich Orozco Discharge Problem: Closed hip fracture Patient Disposition: Admitted As Inpatient Forms Stand Alone Forms: My [facility] Prescriptions Prescriptions: No Action potassium chloride 20 mEq tablet,ER particles/crystals 20 meq PO QAM Qty: 90 RF: 3 Prilosec OTC 20 mg tablet,delayed release (DR/EC) 20 mg PO QAM Qty: 90 RF: 3 verapamil 180 mg tablet extended release 180 mg PO HS Qty: 90 RF: 3 benzonatate [Tessalon Perles] 100 mg capsule 100 mg PO TID PRN (Reason: cough) Qty: 12 RF: 0 albuterol sulfate [Ventolin HFA] 90 mcg/actuation HFA aerosol inhaler 2 puff inhalation Q4H PRN (Reason: shortness of breath or wheezing) Qty: 8.5 RF: 5 furosemide 40 mg tablet 40 mg PO QAM Qty: 90 RF: 3 (DME) Oxygen Home Liters Per Minute See Rx Instructions .ROUTE .MEDSUPPLY Qty: 1 RF: 0 ipratropium-albuterol 0.5 mg-3 mg(2.5 mg base)/3 mL solution for nebulization 3 ml INH QID PRN (Reason: shortness of breath) Qty: 1080 RF: 3 levothyroxine 150 mcg tablet 150 mcg PO QAM RF: 0 calcium carbonate-vitamin D3 [Calcium 500 With D] 500 mg(1,250mg) -400 unit Tablet 1 tab PO QAM RF: 0 magnesium 250 mg Tablet 250 mg PO 3XWK RF: 0 cholecalciferol (vitamin D3) 1,000 unit (25 mcg) tablet 1,000 units PO QAM RF: 0 multivitamin Tablet 1 tab PO QAM RF: 0 Trelegy Ellipta 100-62.5-25 mcg blister with device 1 inh INH QAM RF: 0 Referrals Referrals: Tyler Hawkins MD [Primary Care Provider] - Discharge Problem: Closed hip fracture Qualifiers: Encounter type: initial encounter Laterality: right Qualified Code(s): S72.001A - Fracture of unspecified part of neck of right femur, initial encounter for closed fracture
[2021-02-24] MEDS ORDERED: ALBUTEROL HFA 8 GM INHALER INH PRN (02:13)
[2021-02-24] MEDS ORDERED: ALBUT/IPRATROP 3MG/0.5MG NEB 3 ML VIAL INH PRN (02:13)
[2021-02-24 06:03] LABS: Basophils # (auto) 0.01 K/uL (0-0.2); Basophils % (auto) 0.1 %; Eosinophils % (auto) 1.6 %; Hematocrit (blood only) 42.6 % (42-52); Hemoglobin 13.7 g/dL (14.0-18.0); Immature Granulocytes # (auto) 0.06 K/uL (0.00-0.02); Immature Granulocytes % (auto) 0.5 %; Lymphocytes # (auto) 0.82 K/uL (1.2-3.4); Lymphocytes % (auto) 6.6 %; Mean Corpuscular Hgb Conc 32.2 g/dL (32-36); Mean Corpuscular Volume 93.2 fL (80-100); Monocytes # (auto) 1.49 K/uL (0.11-0.59); Monocytes % (auto) 11.9 %; Neutrophils # (auto) 9.92 K/uL (1.4-6.5); Neutrophils % (auto) 79.3 %; Platelet Count 204 K/uL (130-400); RDW Standard Deviation 51.5 fL (36.4-46.3); Red Blood Count 4.57 M/uL (4.7-6.1)
[2021-02-24 06:26] LABS: BUN Creatinine Ratio 24.5 (10-20); Calcium 8.3 mg/dl (8.5-10.1); Creatinine Clr Calc Pharmacy 85.9 ml/min; Est GFR (African American) 98.2 ml/min; Est GFR (Non-African American) 84.7 ml/min; Phosphorus 2.8 mg/dl (2.5-4.9); Potassium 3.9 mmol/L (3.5-5.1)
--- NOTE | 2021-02-24 07:01 | XRay Report ---
XR chest 1V portable CLINICAL HISTORY: Trauma COMPARISON STUDY: 01/20/2021 FINDINGS: The heart is enlarged. There are persistent but improving multifocal airspace opacities. Tr sonja pleural effusions are suspected. There is no pneumothorax.[ IMPRESSION: Cardiomegaly and persistent but improving bilateral pulmonary airspace opacities. Trace p leural effusions. ACT 112: Negative or not required by law. Electronically signed by: Mike Goff M.D. 02/24/2021 7:00 AM
--- NOTE | 2021-02-24 07:15 | CT Scan Report ---
CT head/brain wo con CLINICAL HISTORY: Head pain status post trauma COMPARISON STUDY: No previous studies for comparison. TECHNIQUE: Axial CT of the brain is performed from the vertex to the skull base. IV contrast was not administered for this examination. A dose lowering technique was utilized adhering to the principles of ALARA. CT DOSE: FINDINGS: No intra or extra-axial mass lesions are visualized. There is no CT evidence of acute cortical infarc tion. There is no evidence of midline shift. There is no acute hemorrhage. No calvarial fractures ar e visualized. There are patchy white matter hypodensities likely on a small vessel basis. There is mild ventricular prominence, finding which is felt to be secondary to volume loss There is no evidence of acute sinusitis IMPRESSION: No acute intracranial findings ACT 112: Negative or not required by law. Electronically signed by: Mike Goff M.D. 02/24/2021 7:14 AM
--- NOTE | 2021-02-24 07:28 | Hospitalist Progress Note ---
Date of Service February 24, 2021 Assessment & Plan (1) Closed hip fracture: Isma Wesley is a 85-year-old male with past medical history significant for COPD, GERD, hypertension, obstructive sleep apnea, recent pneumonia, who was admitted to [facility] on 02/24 for right femoral neck fracture s/p mechanical fall. Right femoral neck fracture: - XR in ED of pelvis/femur demonstrating concern for right femoral neck fracture, CT pelvis confirming displaced/angulated/impacted R fem neck fx without other fractures - Orthopedic surgery consulted: planning for right hemiarthroplasty this morning - NPO for surgery today COPD with chronic respiratory failure: - Transition home inhalers to hospital formulary - At baseline utilizes 2 L nasal cannula at night and with activity Hypothyroidism: - Hold home oral regimen for now, re-start Synthroid 150mcg PO QAM after surgery GERD: -Hold home oral regimen for now, start Protonix 20mg PO QAM after surgery Hypertension: -Hold home oral regimen for now, re-start Verapamil/Lasix/Potassium after surgery Hypoalbuminemia -Dietary consult. CODE STATUS: Full code DVT ppx: will be started after surgery FEN/GI: NPO for surgery today Dispo: med/tele (2) Hypothyroidism (acquired): (3) GERD (gastroesophageal reflux disease): (4) Hypertension: Admission and Anticipated Discharge Date Admission Date: February 24, 2021 Supervising Physician Co-Signing Physician Notes Resident Physician Supervision Note: I independently interviewed and examined the patient and verified the huerta history and physical, reviewed labs and image studies and agree with resident Dr. Sweeney findings and care plan. Subjective Pain controlled with total of Morphine 8mg IV overnight. Patient reports minimal pain currently. Denies fever/chills, chest pain, palpitations, SOB, N/V, abdominal pain. Review of Systems Review of Systems: Pertinent positives and negatives mentioned in HPI. Physical Exam Physical Exam: See today's H&P for physical exam Results & Data Results & Data ([facility]) Vital Signs (Past 12 Hours) Vital Signs Temp Pulse Pulse Resp BP BP Pulse Ox 02/24/21 02:22 36.9 C 114 H 20 159/99 H 93 02/24/21 02:13 36.9 C 114 H 20 159/99 H 93 02/24/21 01:43 106 H 16 167/114 H 98 02/24/21 01:11 110 H 24 02/24/21 01:00 103 H 24 143/91 H 96 02/24/21 00:30 103 H 23 95 02/24/21 00:00 103 H 26 H 173/89 H 93 02/23/21 23:09 101 H 23 94 02/23/21 23:08 101 H 21 165/105 H 93 02/23/21 23:00 103 H 16 175/100 H 165/105 H 95 02/23/21 22:30 100 H 27 H 165/128 H 93 02/23/21 22:00 86 27 H 93 02/23/21 21:30 97 H 21 180/111 H 93 02/23/21 21:00 88 18 180/107 H 02/23/21 20:30 91 H 15 176/131 H 02/23/21 20:00 91 H 17 170/105 H 95 02/23/21 19:48 96 H 19 164/122 H 95 02/23/21 19:44 85 L 02/23/21 19:43 36.7 C 109 H 16 175/112 H 85 L Resident Activity Tracking Resident Involvement: Resident Care Provided Care Provided: Adult Hospital Medicine (1) Closed hip fracture Encounter type: initial encounter Laterality: right Qualified Code(s): S72.001A - Fracture of unspecified part of neck of right femur, initial encounter for closed fracture (2) GERD (gastroesophageal reflux disease) Esophagitis presence: esophagitis presence not specified Qualified Code(s): K21.9 - Gastro-esophageal reflux disease without esophagitis (3) Hypertension Hypertension type: essential hypertension Qualified Code(s): I10 - Essential (primary) hypertension
[2021-02-24] MEDS ORDERED: VANCOMYCIN CONSULT ACTIVE PRN ×2 (07:53→13:11)
[2021-02-24] MEDS ORDERED: METOPROLOL TARTRATE 1 MG/ML VIAL IV STA (08:01)
--- NOTE | 2021-02-24 08:01 | Orthopedic Consultation ---
Date of Consultation February 24, 2021 Assessment & Plan (1) Closed hip fracture: Discussed the diagnosis with the patient. He is a candidate for hemiarthroplasty of the right hip in order to regain the ability to walk. He is at elevated risk for complication because of his age, venous stasis changes in that leg, low albumin level, and history of MRSA. We will plan on using Ancef and vancomycin for perioperative antibiotics. After reviewing the risks and benefits of surgery, alternatives to surgery, and expected outcomes he elects to proceed. All questions were answered. Informed consent was signed. Surgical site was marked. Plan on taking him to the operating room this morning. He has been n.p.o. since midnight last night. He will be readmitted to the floor after surgery to the internal medicine service. Present on Admission?: Yes (2) MRSA (methicillin resistant Staphylococcus aureus): (3) Venous stasis dermatitis of both lower extremities: (4) Hypoalbuminemia: History of Present Illness Reason for Consultation: Right femoral neck fracture Attending Physician: Ernestine Peng MD History of Present Illness Isma Wesley is a 85-year-old male with past medical history significant for COPD, GERD, hypertension, obstructive sleep apnea, recent pneumonia; who presents following a mechanical fall while trying to walk up steps earlier today. Was walking up the steps when he missed a step and landed on his right side. Had no loss of consciousness, dizziness, heart palpitations, chest pain, shortness of breath. Remembers the entirety of the event, had no bowel or bladder incontinence. X-ray of the pelvis demonstrating femoral neck fracture in ED. he was admitted to internal medicine overnight. Orthopedics was consulted for management of his femoral neck fracture. Patient was seen and examined on the floor this morning. He reports pain in the right hip but not in any other locations in his body. Denies any numbness or tingling down his leg. He reports that the redness he has in the lower leg and swelling is something he has had for a long period of time. He says he wears compression stockings for this. Denies any fevers or chills. Denies numbness or tingling down in the leg. Says he uses a cane at baseline. Lives with his in a house where he says he can live on one floor but the house actually has 3 stories. Allergies Allergy/AdvReac Type Severity Reaction Status Date / Time clarithromycin Allergy Intermediate RASH Verified 01/16/21 11:09 Home Medications Medication Instructions Recorded Confirmed Type magnesium 250 mg PO 3XWK 08/02/18 02/23/21 History cholecalciferol (vitamin D3) 25 1,000 units PO QAM tab 05/30/19 02/23/21 History mcg (1,000 unit) tablet Oxygen Home #1 ea 08/17/19 02/23/21 History ipratropium 0.5 mg-albuterol 3 mg 3 ml INH QID PRN #1080 ml 08/17/19 02/23/21 Rx (2.5 mg base)/3 mL nebulization soln levothyroxine 150 mcg PO QAM 05/07/20 02/23/21 History calcium carbonate-vitamin D3 1 tab PO QAM 06/22/20 02/23/21 History [Calcium 500 With D] multivitamin 1 tab PO QAM tab 09/04/20 02/23/21 History omeprazole magnesium 20 mg 20 mg PO QAM #90 tab 10/29/20 02/23/21 Rx tablet,delayed release potassium chloride 20 mEq 20 meq PO QAM #90 tab 10/29/20 02/23/21 Rx tablet,extended release(part/cryst) verapamil 180 mg tablet,extended 180 mg PO HS #90 tab 12/27/20 02/23/21 Rx release Trelegy Ellipta 1 inh INH QAM 01/16/21 02/23/21 History albuterol sulfate 90 mcg/actuation 2 puff INHALATION Q4H PRN #8.5 g 02/04/21 02/23/21 Rx aerosol inhaler benzonatate 100 mg capsule 100 mg PO TID PRN #12 cap 02/04/21 02/23/21 Rx furosemide 40 mg tablet 40 mg PO QAM #90 tab 02/13/21 02/23/21 Rx Patient History Medical History BPH (benign prostatic hyperplasia) Cellulitis of left leg Chronic obstructive pulmonary disease Diastolic CHF Fluid retention in legs GERD (gastroesophageal reflux disease) History of bronchitis History of cellulitis Hypertension Hypothyroidism Hypothyroidism (acquired) Left lumbar radiculopathy Leg length discrepancy Lumbar spinal stenosis On home oxygen therapy 02 2LPM AT HS Osteoarthritis Osteoporosis, unspecified Personal history of MRSA (methicillin resistant Staphylococcus aureus) Pulmonary nodule Sepsis Sleep apnea cpap Spinal stenosis Urethral stricture Vitamin D deficiency Surgical History History of cardiac cath 12/2019 - [place] - increased edema - no stents/angioplasty History of cholecystectomy History of colonoscopy History of herniorrhaphy left inguinal History of partial knee replacement left History of tonsillectomy History of tooth extraction Hx of surgical procedure LEFT FEMUR FX WITH REPAIR Family History Mother Cerebral atherosclerosis Father Diverticulosis Other No significant family history Denies family history of Ovarian cancer Prostate cancer Myocardial infarction Breast cancer Colorectal cancer Social History Smoking Status: Former smoker Tobacco Type: Cigarettes and Pipe packs per day: 1; Years Smoked: 40; Cigarettes Per Day: 20; Number of Years Since Quit: 14; Second Hand Exposure: No; Do You Dip or Chew Tobacco: No; Hx Alcohol Use: Yes Alcohol type: beer Hx Substance Use: No Preferred Language: Bahamian Communication Ability: Effective Visual Impairment: No Limitations Hearing Ability: Normal Qa Auditor Required: No Beliefs That Will Affect Care: None marital status: Current Living Situation: Spouse current occupational status: retired Other Information That Helps Us Care for You: No Feels Safe at Home: Yes Safety Concerns: Feels Safe At This Time Dental Care, Regularly: No Physical Activity Frequency: 1-2 Times per Week Seatbelt Use: always Sunscreen Use: Yes Assistive Devices: Cane, CPAP, Denture - Upper, Denture - Lower, Glasses and Walker Review of Systems Review of Systems: All systems reviewed & are unremarkable except as noted in HPI & below Physical Exam Physical Exam: Pleasant male, sitting up in bed in no acute distress. Alert and oriented x3. Wearing his nasal cannula oxygen. Right lower extremity exam reveals the patient to have shortened and externally rotated right leg. He has some erythema along the leg below the knee that appears to be consistent with venous stasis changes. He has significant pitting edema below the knee and onto the dorsum of the foot. He has some scaly dry skin along the toes that appears consistent with tinea pedis. He is able to wiggle his toes. He has a palpable dorsalis pedis pulse. Sensation intact in the dorsal and plantar aspects of the foot to light touch. Skin is intact around the hip with no lacerations or redness. Results & Data ([facility]) Vital Signs (Past 12 Hours) Vital Signs Temp Pulse Pulse Resp BP BP Pulse Ox 02/24/21 02:22 36.9 C 114 H 20 159/99 H 93 02/24/21 02:13 36.9 C 114 H 20 159/99 H 93 02/24/21 01:43 106 H 16 167/114 H 98 02/24/21 01:11 110 H 24 02/24/21 01:00 103 H 24 143/91 H 96 02/24/21 00:30 103 H 23 95 02/24/21 00:00 103 H 26 H 173/89 H 93 02/23/21 23:09 101 H 23 94 02/23/21 23:08 101 H 21 165/105 H 93 02/23/21 23:00 103 H 16 175/100 H 165/105 H 95 02/23/21 22:30 100 H 27 H 165/128 H 93 02/23/21 22:00 86 27 H 93 02/23/21 21:30 97 H 21 180/111 H 93 02/23/21 21:00 88 18 180/107 H 02/23/21 20:30 91 H 15 176/131 H 02/23/21 20:00 91 H 17 170/105 H 95 Diagnostic Findings X-rays done of the pelvis and right femur yesterday are reviewed. I also reviewed his CT scan of his pelvis. He has a displaced right femoral neck fracture. (1) Closed hip fracture Encounter type: initial encounter Laterality: right Qualified Code(s): S72.001A - Fracture of unspecified part of neck of right femur, initial encounter for closed fracture
--- NOTE | 2021-02-24 08:05 | CT Scan Report ---
CT OF THE CERVICAL SPINE CLINICAL HISTORY: Neck pain status post trauma COMPARISON STUDY: No previous studies for comparison. CT DOSE: 1101.57 mGy.cm TECHNIQUE: CT scan of the cervical spine was performed from the skull base to the thoracic inlet. Claudine ges are reviewed in the axial, sagittal, and coronal planes. IV contrast was not administered for thi s examination. A dose lowering technique was utilized adhering to the principles of ALARA. FINDINGS: The visualized portions of the lung apices reveal no evidence of pneumothorax. There is apical emphys tracy with presumed areas of apical scarring The prevertebral soft tissues are normal. No fractures or subluxations are visualized. There are moderate multilevel degenerative changes. There is multilevel spinal stenosis. IMPRESSION: No evidence of acute fracture or traumatic subluxation. ACT 112: Negative or not required by law. Electronically signed by: Mike Goff M.D. 02/24/2021 8:03 AM
--- NOTE | 2021-02-24 08:24 | XRay Report ---
XR elbow LT min 3V routine CLINICAL HISTORY: Left elbow pain status post trauma COMPARISON: None. DISCUSSION: There is slight prominence of the anterior humeral fat pad. No acute fractures or disloca tions are visualized on the provided images. There is mild soft tissue edema. If symptoms persist, re peat imaging could be obtained to help exclude an occult fracture. There are tiny subcutaneous calcif ications within the soft tissues medial and posterior to the proximal ulna. IMPRESSION: 1. Slight prominence of the anterior humeral fat pad, but no fractures or dislocations are visualized on the provided images. ACT 112: Negative or not required by law. Electronically signed by: Mike Goff M.D. 02/24/2021 8:22 AM
--- NOTE | 2021-02-24 08:27 | CT Scan Report ---
CT pelvis wo con CLINICAL HISTORY: Right femur fracture. COMPARISON STUDY: Pelvis radiograph February 23, 2021. Right femur radiographs February 24, 2021. TECHNIQUE: Axial images of the pelvis and hips were obtained without intravenous contrast. Sagittal a nd coronal reconstructed reviewed. Automated exposure control was utilized for the study. A dose low ering technique was utilized adhering to the principles of ALARA. FINDINGS: A Carrero balloon within the bladder is noted. The bladder is collapsed. There is extensive s igmoid diverticulosis. The sacroiliac joints and symphysis pubis are intact. Old, healed intertrochan teric fracture of the left femur is noted. Trochanteric nail is in place. There is an acute comminute d displaced and angulated right femoral neck fracture. This represents a subcapital fracture which ex tends into the femoral head. No additional acute fractures are identified on this examination. There are no suspicious osseous lesions. IMPRESSION: Acute comminuted displaced and angulated right femoral neck fracture. ACT 112: Negative or not required by law. Electronically signed by: Conner Villalpando M.D. 02/24/2021 8:26 AM
--- NOTE | 2021-02-24 08:29 | XRay Report ---
XR femur RT 2V routine CLINICAL HISTORY: Right femur pain status post trauma COMPARISON: None DISCUSSION: There is a mildly displaced impacted subcapital right hip fracture. No additional fractur es are visualized. IMPRESSION: Acute subcapital right hip fracture. ACT 112: Negative or not required by law. Electronically signed by: Mike Goff M.D. 02/24/2021 8:28 AM
[2021-02-24] MEDS ORDERED: VANCOMYCIN HCL 2,000 MG in SODIUM CHLORIDE 0.9% 500 ML IV SCH (08:30)
[2021-02-24] MEDS ORDERED: ceFAZolin 2000MG 2,000 MG/15 ML SYR IV SCH (08:30)
--- NOTE | 2021-02-24 08:32 | XRay Report ---
XR pelvis 1-2V routine CLINICAL HISTORY: Pain status post trauma COMPARISON: 02/17/2013 DISCUSSION: There is an old internally fixated intertrochanteric left hip fracture with a femoral nec k nail and intramedullary maddy. There is an acute right femoral neck fracture. IMPRESSION: 1. Acute displaced right femoral neck fracture 2. Postsurgical changes of an old internally fixated intertrochanteric left hip fracture ACT 112: Negative or not required by law. Electronically signed by: Mike Goff M.D. 02/24/2021 8:31 AM
[2021-02-24] MEDS ORDERED: ROPIVACAINE 0.5% HCL/PF 150 MG, BUPIVACAINE 0.75% MPF 20 ML, EPINEPHrine 0.15 MG, Ketor... INFIL SCH (09:00)
--- NOTE | 2021-02-24 10:01 | Electrocardiogram Report ---
Test Reason : Blood Pressure : / mmHG Vent. Rate : 097 BPM Atrial Rate : 097 BPM P-R Int : 142 ms QRS Dur : 078 ms QT Int : 368 ms P-R-T Axes : 037 -30 008 degrees QTc Int : 467 ms Normal sinus rhythm Left axis deviation Poor R wave progression, consider anterior CA vs. lead placement vs. LVH Abnormal ECG When compared with ECG of 16-JAN-2021 09:11, Premature supraventricular complexes are no longer Present Confirmed by Yovani Izquierdo ([id number]) on 02/24/2021 10:01:21 AM Referred By: REFERRED SELF Confirmed By:Yovani Izquierdo
--- NOTE | 2021-02-24 10:25 | Anesthesiology Consultation ---
Date of Service February 24, 2021 Assessment & Plan Chart Review Chart Review: Acceptable Risk for Surgery and Patient NOT seen in Pre Admission Testing Consults Requested none ASA ASA4 History Surgery Operation Date: 02/24/21 11:00 Proposed Procedures p Right Total Hip Arthroplasty Uncemented - Tony Pradhan MD Height/Weight Height: 5 ft 8 in Weight: 101.741 kg Allergies Allergy/AdvReac Type Severity Reaction Status Date / Time clarithromycin Allergy Intermediate RASH Verified 01/16/21 11:09 Medications Home Medications Medication Instructions Recorded Confirmed Last Taken magnesium 250 mg PO 3XWK 08/02/18 02/23/21 01/14/21 cholecalciferol (vitamin D3) 25 1,000 units PO QAM tab 05/30/19 02/23/2101/02 mcg (1,000 unit) tablet Oxygen Home #1 ea 08/17/19 02/23/21 08/31/19 ipratropium 0.5 mg-albuterol 3 mg 3 ml INH QID PRN #1080 ml 08/17/19 02/23/21 01/14/21 (2.5 mg base)/3 mL nebulization soln levothyroxine 150 mcg PO QAM 05/07/20 02/23/21 01/15/21 calcium carbonate-vitamin D3 1 tab PO QAM 06/22/20 02/23/21 01/15/21 [Calcium 500 With D] multivitamin 1 tab PO QAM tab 09/04/20 02/23/21 01/15/21 omeprazole magnesium 20 mg 20 mg PO QAM #90 tab 10/29/20 02/23/21 01/15/21 tablet,delayed release potassium chloride 20 mEq 20 meq PO QAM #90 tab 10/29/20 02/23/21 01/15/21 tablet,extended release(part/cryst) verapamil 180 mg tablet,extended 180 mg PO HS #90 tab 12/27/20 02/23/21 01/15/21 release Trelegy Ellipta 1 inh INH QAM 01/16/21 02/23/21 01/15/21 albuterol sulfate 90 mcg/actuation 2 puff INHALATION Q4H PRN #8.5 g 02/04/21 02/23/21 Unknown aerosol inhaler benzonatate 100 mg capsule 100 mg PO TID PRN #12 cap 02/04/21 02/23/21 Unknown furosemide 40 mg tablet 40 mg PO QAM #90 tab 02/13/21 02/23/21 Unknown Active Medications Generic Name Dose Route Start Last Admin Trade Name Freq PRN Reason Stop Dose Admin Morphine Sulfate 2 mg 02/24/21 00:47 02/24/21 05:31 Morphine Sulfate 2 Mg/Ml Carp IV 03/10/21 00:46 2 mg Q2H PRN Administration Pain (3,4,5,6) Past Medical History Medical History BPH (benign prostatic hyperplasia) Cellulitis of left leg Chronic obstructive pulmonary disease Diastolic CHF Fluid retention in legs GERD (gastroesophageal reflux disease) History of bronchitis History of cellulitis Hypertension Hypothyroidism Hypothyroidism (acquired) Left lumbar radiculopathy Leg length discrepancy Lumbar spinal stenosis On home oxygen therapy 02 2LPM AT HS Osteoarthritis Osteoporosis, unspecified Personal history of MRSA (methicillin resistant Staphylococcus aureus) Pulmonary nodule Sepsis Sleep apnea cpap Spinal stenosis Urethral stricture Vitamin D deficiency Exercise / Class Metabolic Activity III < 4 Walking/Shop/Light housework Past Family History Family History Mother Cerebral atherosclerosis Father Diverticulosis Other No significant family history Denies family history of Ovarian cancer Prostate cancer Myocardial infarction Breast cancer Colorectal cancer Past Surgical History Surgical History History of cardiac cath 12/2019 - [place] - [place] edema - no stents/angioplasty History of cholecystectomy History of colonoscopy History of herniorrhaphy left inguinal History of partial knee replacement left History of tonsillectomy History of tooth extraction Hx of surgical procedure LEFT FEMUR FX WITH REPAIR Past Anesthesia History No Hx of Anesthesia Complications and No Family Hx of Anesthesia Complications History of PONV No Hx of PONV and No Hx of Motion Sickness Social History Smoking Status: Former smoker Smoking cigarettes per day: 20 Do You Dip or Chew Tobacco: No Hx Alcohol Use: Yes Alcohol type: beer alcohol intake frequency: holidays/special occasions only Hx Substance Use: No substance use type: does not use Physical Exam Vital Signs Last Vital Signs Temp 37.3 C 02/24/21 08:37 Pulse 104 H 02/24/21 08:37 Resp 16 02/24/21 08:37 BP 154/98 H 02/24/21 08:37 Pulse Ox 96 02/24/21 08:37 Testing Laboratory Results 02/24/21 05:37 02/24/21 05:37 PT 9.5 Seconds (9.0-12.0) 02/23/21 21:53 INR 0.9 (0.9-1.1) 02/23/21 21:53 APTT 25.2 Seconds (21.0-31.0) 02/23/21 21:53 Urine Color Dark Yellow 02/23/21 22:41 Urine Appearance Clear (Clear) 02/23/21 22:41 Urine pH 6.5 (4.5-7.5) 02/23/21 22:41 Ur Specific [place] 1.024 (1.000-1.030) 02/23/21 22:41 Urine Protein Trace (Negative) H 02/23/21 22:41 Urine Glucose (UA) Negative (Negative) 02/23/21 22:41 Urine Ketones Trace (Negative) H 02/23/21 22:41 Urine Nitrite Negative (Negative) 02/23/21 22:41 Ur Leukocyte Esterase Negative (Negative) 02/23/21 22:41 Urine WBC (Auto) 1-5 /hpf (0-5) 02/23/21 22:41 Urine RBC (Auto) 0-4 /hpf (0-4) 02/23/21 22:41 U Hyaline Cast (Auto) 0 /lpf (0-5) 02/23/21 22:41 U Epithel Cells (Auto) 5-10 /lpf (0-5) H 02/23/21 22:41 Urine Bacteria (Auto) Negative (Negative) 02/23/21 22:41 Blood Type A Positive 02/23/21 21:53 Antibody Screen NEGATIVE 02/23/21 21:53 Electrocardiogram Date: 02/23/21 Findings: + NSR @ (at 97) and + poor R wave progression Chest X-Ray Date: 02/23/21 Findings: + cardiomegaly and + infiltrate (improving B/L airspace opacities) Echocardiogram Date: 10/07/18 EF: 65% LV Function: normal RWMA: + none Valvular Disease: + no significant valvular disease and + pertinent finding (mild pulmonary HTN) Pulmonary Function Test Date: 12/22/20 Findings: no responds to Bronchodilators (no response to bronchodilators) moderate airflow obstruction
[2021-02-24] MEDS ORDERED: MIDAZOLAM HCL 1 MG/ML 2ML VIAL ONE (10:37)
[2021-02-24] MEDS ORDERED: fentaNYL citrate 100 MCG/2 ML VIAL ONE (10:37)
[2021-02-24] MEDS ORDERED: ESMOLOL HCL INJ 10 MG/ML 10ML VIAL IV ONE (12:03)
[2021-02-24] MEDS ORDERED: KETAMINE 50 MG/5 ML SYRINGE ONE (12:33)
[2021-02-24] MEDS ORDERED: PROPOFOL IV EMULSION 10 MG/ML 20 ML VIAL IV ONE (12:34)
[2021-02-24] MEDS: UMECLIDINIUM/VILANTEROL 62.5/25MCG 7 PUFFS/INHALER INH SCH (12:41)
[2021-02-24] MEDS: FLUTICASONE FUROATE 100MCG 14 PUFFS/INHALER INH SCH (12:41)
--- NOTE | 2021-02-24 12:57 | Post Operative Brief Note ---
Immediate Post Op Note v1 Date of Surgery February 24, 2021 Pre & Post Diagnosis Operation Date: 02/24/21 11:00 Pre-Op Diagnosis: RIGHT HIP FRACTURE Post-Op Diagnosis: RIGHT HIP FRACTURE I identified the patient and participated in the time-out.: Yes Procedure Operation Date: 02/24/21 11:00 Actual Procedures p Right Bipolar Hip Hemiarthroplasty Uncemented(Right) - Tony Pradhan MD Surgeon Tony Pradhan MD Knock Out Hand MADAY Ruth PA-C. No resident or fellow was available to assist. Estimated Blood Loss 100 Findings Consistent with Post-Op Diagnosis
[2021-02-24] MEDS ORDERED: ALUMINUM/MAGNESIUM SUSP 30 ML UDC PO PRN (13:11)
[2021-02-24] MEDS ORDERED: ONDANSETRON INJ 2 MG/ML 2 ML VIAL IV PRN ×2 (13:11→13:25)
[2021-02-24] MEDS ORDERED: MAGNESIUM HYDROXIDE SUSP 30 ML UDC PO PRN (13:11)
[2021-02-24] MEDS ORDERED: oxyCODONE HCL IR 5 MG TAB (IMMEDIATE RELEASE) PO PRN (13:11)
[2021-02-24] MEDS ORDERED: diphenhydrAMINE 50 MG/ML VIAL IV PRN (13:11)
[2021-02-24] MEDS ORDERED: bisacodyL 10 MG SUPP PR PRN (13:11)
[2021-02-24] MEDS ORDERED: METOCLOPRAMIDE HCL INJ 5 MG/ML 2 ML VIAL IV PRN (13:11)
[2021-02-24] MEDS ORDERED: NALOXONE HCL 0.4 MG/1 ML VIAL/CARP IV PRN ×2 (13:11→13:25)
--- NOTE | 2021-02-24 13:11 | Operative Report ---
Post Operative Report Pre & Post Diagnosis Operation Date: 02/24/21 11:00 Pre-Op Diagnosis: RIGHT HIP FRACTURE Post-Op Diagnosis: RIGHT HIP FRACTURE I identified the patient and participated in the time-out.: Yes Procedure Operation Date: 02/24/21 11:00 Actual Procedures p Right Bipolar Hip Hemiarthroplasty Uncemented(Right) - Tony Pradhan MD Surgeon Tony Pradhan MD Canceling Machine Operator MADAY Ruth PA-C. No resident or fellow was available to assist. Estimated Blood Loss 100 Findings Consistent with Post-Op Diagnosis Specimens femoral head Complications none Disposition Accompanied Patient To Recovery: No Disposition: PCU Description of Procedure I was present during the entire case assisting with positioning, prepping, draping, retraction, wound closure, dressing and abduction pillow placement. No fellow present. Please see Dr. Pradhan procedure note for specifics of the case. I attest to the content of the Intraoperative Record and any orders documented therein. Any exceptions are noted below.
[2021-02-24] MEDS ORDERED: BENZONATATE 100 MG CAPSULE PO PRN (13:17)
[2021-02-24] MEDS: METOPROLOL TARTRATE 1 MG/ML VIAL IV PRN ×2 (13:21→13:35)
[2021-02-24] MEDS ORDERED: LABETALOL HCL IV 5 MG/ML 20ML IV PRN (13:25)
[2021-02-24] MEDS ORDERED: PROMETHAZINE HCL 12.5 MG in SODIUM CHLORIDE 0.9% 50 ML IV PRN (13:25)
[2021-02-24] MEDS ORDERED: FLUMAZENIL 0.1 MG/1 ML 10 ML VIAL IV PRN (13:25)
[2021-02-24] MEDS ORDERED: METOPROLOL TARTRATE 1 MG/ML VIAL IV ONE (13:25)
[2021-02-24] MEDS ORDERED: ATROPINE SULFATE 0.1 MG/ML 10ML SYR IV PRN (13:25)
[2021-02-24] MEDS ORDERED: ePHEDrine sulfate 50 MG/ML AMP IV PRN (13:25)
[2021-02-24] MEDS ORDERED: NON-FORMULARY MEDICATION (Oxygen Home Liters per Minute) SCH (13:30)
--- NOTE | 2021-02-24 13:44 | XRay Report ---
XR pelvis 1-2V routine CLINICAL HISTORY: Post Surgical COMPARISON: CT of the pelvis February 24, 2021. FINDINGS: Alignment of the right hip arthroplasty is anatomic. There is no periprosthetic fracture o r unexpected radiopaque foreign body. Healed intertrochanteric fracture of the left femur status post internal fixation is noted. IMPRESSION: Expected findings following right hip arthroplasty. ACT 112: Negative or not required by law. Electronically signed by: Conner Villalpando M.D. 02/24/2021 1:42 PM
--- NOTE | 2021-02-24 14:08 | Anesthesiology Progress Note ---
Date of Service February 24, 2021 Anesthesia Post Procedure Vital Signs Vital Signs: Temp Pulse Pulse Pulse Resp BP BP 02/24/21 14:00 103 H 24 111/66 02/24/21 13:50 106 H 24 99/67 L 02/24/21 13:40 108 H 24 94/67 L 02/24/21 13:35 112 H 117/74 02/24/21 13:30 100 H 22 117/74 02/24/21 13:21 125 H 103/62 02/24/21 13:20 120 H 22 103/62 02/24/21 13:12 36.7 C 118 H 20 100/68 02/24/21 08:37 37.3 C 104 H 16 154/98 H 02/24/21 08:09 37.2 C 02/24/21 07:50 115 H 18 161/102 H 02/24/21 02:22 36.9 C 114 H 20 159/99 H 02/24/21 02:13 36.9 C 114 H 20 159/99 H 02/24/21 01:43 106 H 16 167/114 H 02/24/21 01:11 110 H 24 02/24/21 01:00 103 H 24 143/91 H 02/24/21 00:30 103 H 23 02/24/21 00:00 103 H 26 H 173/89 H 02/23/21 23:09 101 H 23 02/23/21 23:08 101 H 21 165/105 H 02/23/21 23:00 103 H 16 175/100 H 165/105 H 02/23/21 22:30 100 H 27 H 165/128 H 02/23/21 22:00 86 27 H 02/23/21 21:30 97 H 21 180/111 H 02/23/21 21:00 88 18 180/107 H 02/23/21 20:30 91 H 15 176/131 H 02/23/21 20:00 91 H 17 170/105 H 02/23/21 19:48 96 H 19 164/122 H 02/23/21 19:44 02/23/21 19:43 36.7 C 109 H 16 175/112 H Pulse Ox 02/24/21 14:00 94 02/24/21 13:50 94 02/24/21 13:40 94 02/24/21 13:35 02/24/21 13:30 95 02/24/21 13:21 02/24/21 13:20 96 02/24/21 13:12 97 02/24/21 08:37 96 02/24/21 08:09 02/24/21 07:50 96 02/24/21 02:22 93 02/24/21 02:13 93 02/24/21 01:43 98 02/24/21 01:11 02/24/21 01:00 96 02/24/21 00:30 95 02/24/21 00:00 93 02/23/21 23:09 94 02/23/21 23:08 93 02/23/21 23:00 95 02/23/21 22:30 93 02/23/21 22:00 93 02/23/21 21:30 93 02/23/21 21:00 02/23/21 20:30 02/23/21 20:00 95 02/23/21 19:48 95 02/23/21 19:44 85 L 02/23/21 19:43 85 L Pain Intensity Right Hip: Pain Intensity: 5 Transfer of Care Handoff Completed per policy Notes Mental Status: alert / awake / arousable Patient Amnestic to Procedure: Yes Nausea / Vomiting: adequately controlled Pain: adequately controlled Airway Patency, RR, SpO2: stable & adequate BP & HR: stable & adequate Hydration State: stable & adequate Neuraxial Anesthesia: was administered and sensory block is resolving Anesthetic Complications: no major complications apparent
[2021-02-24] MEDS: SODIUM CHLORIDE 0.9% 1000ML 1,000 ML IV SCH (15:26)
[2021-02-24] MEDS: ACETAMINOPHEN 500 MG TAB PO SCH ×2 (15:35→21:03)
[2021-02-24] MEDS: KETOROLAC TROMETHAMINE 15 MG/ML VIAL IV SCH ×2 (15:36→21:02)
[2021-02-24] MEDS: ceFAZolin 2000MG 2,000 MG/15 ML SYR IV SCH (17:35)
[2021-02-24] MEDS ORDERED: TRANEXAMIC ACID / 0.7% NACL 1,000 MG/100 ML BAG IV SCH (19:14)
--- NOTE | 2021-02-24 19:42 | Billing Data ---
Date of Service February 24, 2021 Coding Level of Care Code 58872 Initial Inpt Care Lvl 3
[2021-02-24] MEDS: VERAPAMIL HCL 180 MG TABCR PO SCH (21:01)
[2021-02-24] MEDS: ASPIRIN 81 MG ECTAB PO SCH (21:01)
[2021-02-24] MEDS: DOCUSATE SODIUM 100 MG CAP PO SCH (21:02)
[2021-02-24] MEDS: SENNA 8.6 MG TAB PO SCH (21:02)
[2021-02-24] MEDS ORDERED: VANCOMYCIN HCL 1,500 MG in SODIUM CHLORIDE 0.9% 500 ML IV SCH (22:00)
--- NOTE | 2021-02-24 22:28 | Operative Report (OR) ---
DATE OF OPERATION: 02/24/2021 PREOPERATIVE DIAGNOSIS: Right displaced femoral neck fracture. POSTOPERATIVE DIAGNOSIS: Right displaced femoral neck fracture. OPERATION PERFORMED: Right hip hemiarthroplasty, uncemented. SURGEON: Tony rPadhan MD SHIPPING MANAGER: Traci Ruth PA-C. No resident or fellow was available to assist. ESTIMATED BLOOD LOSS: 100 mL. INTRAVENOUS FLUIDS: 1000 mL of crystalloid. SPECIMENS: None. COMPLICATIONS: None. IMPLANTS: 1. [place] size 5 standard offset femoral stem. 2. Articul/Nap[place]on metal femoral head, 28 mm outer diameter with a +1.5 mm offset. 3. 50 mm bipolar self centering head. INDICATIONS: The patient is an 85-year-old male who fell at home yesterday evening. He was brought to the Emergency Room with inability to ambulate. Complained of right hip pain. X-rays were obtained demonstrating a displaced femoral neck fracture. He was admitted to the hospital to the internal medicine service. I saw him this morning. Discussed diagnosis with him. Surgery is indicated to restore his ability to ambulate. I had a long discussion with him about the risks and benefits of surgery, alternatives to surgery, and expected outcomes. After reviewing all these, he elected to proceed with surgery. All questions were answered. Informed consent was signed. OPERATIVE FINDINGS: Bipolar hemiarthroplasty was performed through a posterior approach. DESCRIPTION OF THE OPERATION: The patient was identified in the preoperative holding area where surgical site was marked. He was brought to the main operating room where spinal anesthesia was performed in his hospital bed. He was then carefully moved on to the operating room table. He was moved up into the lateral decubitus position. Axillary roll was placed. All bony prominences were padded. Perioperative antibiotics were administered. He was prepped and draped in normal sterile fashion. 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 Prior to incision, multidisciplinary timeout was called. All in the room were in agreement. We began by making a 12 cm long incision for posterior approach of the hip. I dissected down through subcutaneous tissues to the level of fascia. Fascia was incised in line with the incision. Charnley bow was placed. Trochanteric bursa and fatty tissues were bluntly swept off of the piriformis and short external rotators to expose the posterior aspect of the hip. Piriformis and short external rotators were then released off the capsule. An L-shaped capsulotomy was made. The hip was dislocated out through the femoral neck fracture, which was immediately visible. A saw was used to freshen up his femoral neck. We then exposed the acetabulum. The femoral head was removed with a corkscrew. We inspected the acetabulum. There was no ligamentum teres that needed to be removed. We irrigated out the acetabulum and then trialed with a 50 mm bipolar trial. This gave us a good suction fit. Next, the proximal femur was exposed. The boxing and pressing supervisor was used followed by the intramedullary guide. Lateralizing reamer was used. We then reamed all the way up to a size 5, which had a good cortical chatter. We then broached him all the way up to a size 5. This had excellent torsional stability. It sat at the level of the neck cut. We did use a calcar planer. We then trialed with a +1.5 offset head. The hip was reduced. Leg lengths showed him to be just a touch longer on this side than the other side. However, he was shortened from a previous intramedullary nail on his contralateral side, so this was not unexpected. He had excellent stability, being stable in the sleeper position. No impingement in external rotation and extension. At 90 degrees of hip flexion, he could be internally rotated approximately 75 degrees before levering out of the cup. I was very happy with the stability exam. Therefore, I removed the femoral trial. I irrigated out the femoral canal. The femoral canal was dried. The real size 5 standard offset [place] femoral stem was opened up and gently impacted down into the femur. It sat at the same level as the broach. Therefore, the bipolar was assembled on the back table and was tapped down on the trunnion. The hip was atraumatically reduced. The wound was then irrigated out with copious amounts of sterile Betadine solution. Periarticular injection cocktail was placed in the soft tissues. We then began to close. #2 Vicryl was used to close the piriformis, short external rotators and posterior capsule of the limb back through 2 drill holes in the posterior aspect of the greater trochanter. Fascia was run with a looped #1 PDS. The subcutaneous layer was closed with running #1 PDS. The skin was closed with a 2-0 Vicryl in the deep dermis and Dermabond and ZipLine for the skin. Silverlon dressing was placed followed by a compressive dressing. He was then placed in the supine position, transferred to the hospital bed and then moved to the recovery room in stable condition. POSTOPERATIVE COURSE: The patient will be readmitted to the hospital. He will be weightbearing as tolerated with posterior hip precautions. He will be on aspirin for DVT prophylaxis. I attest to the content of the Intraoperative Record and any orders documented therein. Any exception s are noted below.
[2021-02-25] MEDS: ceFAZolin 2000MG 2,000 MG/15 ML SYR IV SCH (01:14)
[2021-02-25] MEDS: KETOROLAC TROMETHAMINE 15 MG/ML VIAL IV SCH ×2 (01:14→08:21)
[2021-02-25] MEDS: SODIUM CHLORIDE 0.9% 1000ML 1,000 ML IV SCH (01:39)
[2021-02-25] MEDS: ACETAMINOPHEN 500 MG TAB PO SCH ×3 (05:59→21:14)
[2021-02-25] MEDS: LEVOTHYROXINE SODIUM 150 MCG TABLET PO SCH (06:00)
[2021-02-25 06:06] LABS: Eosinophils # (auto) 0.01 K/uL (0-0.5); Eosinophils % (auto) 0.1 %; Hematocrit (blood only) 39.4 % (42-52); Hemoglobin 12.6 g/dL (14.0-18.0); Immature Granulocytes # (auto) 0.06 K/uL (0.00-0.02); Immature Granulocytes % (auto) 0.4 %; Lymphocytes # (auto) 0.72 K/uL (1.2-3.4); Lymphocytes % (auto) 5.1 %; Mean Corpuscular Hemoglobin 30.1 pg (25-34); Mean Platelet Volume 11.9 fL (7.4-10.4); Monocytes # (auto) 1.07 K/uL (0.11-0.59); Monocytes % (auto) 7.6 %; Neutrophils # (auto) 12.28 K/uL (1.4-6.5); Neutrophils % (auto) 86.8 %; Platelet Count 188 K/uL (130-400); RDW Coefficient of Variation 14.9 % (11.5-14.5); RDW Standard Deviation 51.2 fL (36.4-46.3); Red Blood Count 4.19 M/uL (4.7-6.1); White Blood Count 14.14 K/uL (4.8-10.8)
[2021-02-25 06:44] LABS: Creatinine Clr Calc Pharmacy 56.8 ml/min; Est GFR (African American) 69.5 ml/min; Magnesium 2.1 mg/dl (1.8-2.4); Potassium 4.4 mmol/L (3.5-5.1)
[2021-02-25 06:48] LABS: Phosphorus 3.9 mg/dl (2.5-4.9)
[2021-02-25] MEDS ORDERED: dexAMETHasone 4 MG TAB PO SCH (08:00)
[2021-02-25] MEDS ORDERED: MULTIVITAMIN TAB PO SCH (09:00)
[2021-02-25] MEDS: ASPIRIN 81 MG ECTAB PO SCH ×2 (09:13→20:55)
[2021-02-25] MEDS: CALCIUM 600MG + VIT D 400 IU TAB PO SCH (09:14)
[2021-02-25] MEDS: CHOLECALCIFEROL 1,000 UNITS 25 MCG TAB PO SCH (09:14)
[2021-02-25] MEDS: DOCUSATE SODIUM 100 MG CAP PO SCH ×2 (09:14→20:57)
[2021-02-25] MEDS: PANTOprazole 40 MG TAB PO SCH (09:15)
[2021-02-25] MEDS: POTASSIUM CHLORIDE CRTAB 20 MEQ TABCR PO SCH (09:15)
[2021-02-25] MEDS: FUROSEMIDE 40 MG TAB PO SCH (09:15)
[2021-02-25] MEDS: MULTIVITAMIN TAB PO SCH (09:15)
[2021-02-25] MEDS: MAGNESIUM OXIDE 400 MG TAB PO SCH (09:15)
[2021-02-25] MEDS: FLUTICASONE FUROATE 100MCG 14 PUFFS/INHALER INH SCH (09:16)
[2021-02-25] MEDS: UMECLIDINIUM/VILANTEROL 62.5/25MCG 7 PUFFS/INHALER INH SCH (09:17)
--- NOTE | 2021-02-25 10:21 | Hospitalist Progress Note ---
Date of Service February 25, 2021 Assessment & Plan (1) Closed hip fracture: Isma Wesley is a 85-year-old male with past medical history significant for COPD, GERD, hypertension, obstructive sleep apnea, recent pneumonia, who was admitted to [facility] on 02/24 for right femoral neck fracture s/p mechanical fall. Right femoral neck fracture s/p hemiarthroplasty Right hemiarthroplasty performed 02/24 Plan per ortho: Weightbearing as tolerated with walker assistance Abduction pillow use x6 weeks Ice with EZ wrap Keep silverlon dressing in place Total hip precautions DVT ppx with MANAN stockings and aspirin Plan for discharge to rehab facility for at least one week before transitioning home with home health services Follow up at [facility] in two weeks Continue oxycodone 5-10mg PO q4h prn COPD Patient is on 2L NC at nighttime and none during the day nor with exertion Patient currently satting well on 4L NC; wean as tolerated Transition home inhalers to hospital formulary Hypothyroidism Continue synthroid GERD Continue protonix Hold home oral regimen for now, start Protonix 20mg PO QAM after surgery Hypertension Continue verapamil, lasix FEN: heart healthy diet Code status: full code DVT ppx: MANAN stockings Isolation: none Dispo: med/surg tele (2) Hypothyroidism (acquired): (3) GERD (gastroesophageal reflux disease): (4) Hypertension: Admission and Anticipated Discharge Date Admission Date: February 24, 2021 Supervising Physician Co-Signing Physician Notes I also saw the patient concur with the resident physician and confirmed huerta portions of history and physical examination. Agree with the impression and plan as noted in the resident documentation. Upon our visit this morning, the patient states that his pain is well controlled. He walked with physical therapy around the room and to the bathroom. He does have chronic venous stasis changes of the lower extremities bilaterally; trace amount edema which she states is his usual. Exam 144/88, 89, 20, 36.5, 95% on nasal cannula 4 L/min Of note the patient is on 2 L/min of nocturnal oxygen at home Heart regular rate and rhythm Lungs clear throughout Chronic venous stasis changes of the lower extremities bilaterally; no tenderness or warmth appreciated. Trace edema of the lower extremities bilaterally Data Hemoglobin 12.6, white blood count 14.4 BUN 26, creatinine 1.12 Assessment and Plan Closed right hip fracture Status post hemiarthroplasty Physical therapy Pain control COPD Baseline 2 L nasal cannula oxygen, with pulse ox target 92% DuoNebs every 2 hours as needed Continue home inhalers Else per resident documentation Subjective Patient seen and evaluated at bedside this morning. RN reported low urine output overnight; this morning, patient is on his second tall cup of water and reports urinating without issue. Patient feels well and has no acute complaints. Denies CP, SOB, nausea, vomiting, worsening edema, leg pain, dizziness, confusion, or other symptoms. Review of Systems Review of Systems: See HPI Physical Exam Physical Exam: Constitutional: well-appearing, no acute distress CV: regular rhythm, no murmur appreciated, extremities well-perfused Resp: CTABL, no wheezes/rales/rhonchi appreciated, no increased work of breathing MSK: right hip dressing CDI, see ortho progress note for strength testing Skin: thickened reddish skin on BL LE, 2+ pitting edema BL Neuro: AOx4, no focal neurological deficits appreciated Results & Data Results & Data ([facility]) Vital Signs (Past 12 Hours) Vital Signs Temp Pulse Pulse Resp BP BP Pulse Ox 02/25/21 09:11 110/71 02/25/21 07:32 36.4 C L 88 20 129/72 91 02/25/21 06:15 83 16 90 02/25/21 03:37 37.0 C 90 18 122/77 92 Resident Activity Tracking Resident Involvement: Resident Care Provided Care Provided: Adult Hospital Medicine (1) Closed hip fracture Encounter type: initial encounter Laterality: right Qualified Code(s): S72.001A - Fracture of unspecified part of neck of right femur, initial encounter for closed fracture (2) GERD (gastroesophageal reflux disease) Esophagitis presence: esophagitis presence not specified Qualified Code(s): K21.9 - Gastro-esophageal reflux disease without esophagitis (3) Hypertension Hypertension type: essential hypertension Qualified Code(s): I10 - Essential (primary) hypertension
--- NOTE | 2021-02-25 15:02 | Orthopedic Progress Note ---
Date of Service February 25, 2021 Assessment & Plan (1) S/P hip hemiarthroplasty: PT/OT Weightbearing as tolerated with walker assistance Abduction pillow use x6 weeks Ice with E Z wrap Keep Silverlon dressing in place DVT prophylaxis with MANAN stockings and aspirin Pain control with p.o. medication Total hip precautions Patient plans on being discharged to a rehab facility for least 1 week and then May transition to in-home health services Follow-up at [facility] in 2 weeks. With questions contact clinic at [phone] Admission and Anticipated Discharge Date Admission Date: February 24, 2021 Subjective This 85-year-old male is day 1 status post right hip hemiarthroplasty following a fracture. Patient states his pain is well controlled with p.o. pain m edication. He states that he has been up moving around easily with his walker. At times he does experience some pain in the hip when he is ambulating. Patient denies chest pain, shortness of breath, fever, chills, sweats, lethargy, numbness or tingling in his right lower extremity, nausea, vomiting or diarrhea. He states he has moved his bowels twice and urinated multiple times. He states that he is chronically short of breath due to COPD but has not experienced anything out of the ordinary. Review of Systems Review of Systems: All systems reviewed & are unremarkable except as noted in Subjective Physical Exam Physical Exam: Right hip: Silverlon dressing is clean dry and intact. Patient is able to perform an active straight leg raise test. He is able to actively dorsi and plantarflex his foot and has no pain with applied resistance. Light passive internal rotation causes some tension. Passive external rotation causes no pain. Knee range of motion from 0 to 90 degrees. Quad strength 3 out of 5. Patient does have venous stasis dermatitis in both lower extremities with 2+ pitting edema. Peripheral pulses are palpable. He is neurovascularly intact in right lower extremity. Results & Data ([facility]) Vital Signs (Past 12 Hours) Vital Signs Temp Pulse Pulse Resp BP BP Pulse Ox 02/25/21 11:13 02/25/21 11:03 36.4 C L 98 H 24 115/77 02/25/21 09:11 110/71 02/25/21 07:32 36.4 C L 88 20 129/72 91 02/25/21 06:15 83 16 90 02/25/21 03:37 37.0 C 90 18 122/77 92 Pulse Ox Pulse Ox Pulse Ox 02/25/21 11:13 94 92 77 L 02/25/21 11:03 02/25/21 09:11 02/25/21 07:32 02/25/21 06:15 02/25/21 03:37 Laboratory Results 02/25/21 02/25/21 Range/Units 05:46 05:46 WBC 14.14 H (4.8-10.8) K/uL RBC 4.19 L (4.7-6.1) M/uL Hgb 12.6 L (14.0-18.0) g/dL Hct 39.4 L (42-52) % MCV 94.0 (80-100) fL MCH 30.1 (25-34) pg MCHC 32.0 (32-36) g/dL RDW Std Deviation 51.2 H (36.4-46.3) fL RDW Coeff of Jordan 14.9 H (11.5-14.5) % Plt Count 188 (130-400) K/uL MPV 11.9 H (7.4-10.4) fL Immature Gran % (Auto) 0.4 % Neut % (Auto) 86.8 % Lymph % (Auto) 5.1 % Aiken % (Auto) 7.6 % Eos % (Auto) 0.1 % Baso % (Auto) 0.0 % Neut # (Auto) 12.28 H (1.4-6.5) K/uL Lymph # (Auto) 0.72 L (1.2-3.4) K/uL Aiken # (Auto) 1.07 H (0.11-0.59) K/uL Eos # (Auto) 0.01 (0-0.5) K/uL Baso # (Auto) 0.00 (0-0.2) K/uL Immature Gran # (Auto) 0.06 H (0.00-0.02) K/uL Sodium 141 (136-145) mmol/L Potassium 4.4 (3.5-5.1) mmol/L Chloride 111 H (98-107) mmol/L Carbon Dioxide 23 (21-32) mmol/L Anion Gap 7.0 (3-11) BUN 26 H (7-18) mg/dl Creatinine 1.12 D (0.6-1.4) mg/dl Est Cr Clr Drug Dosing 56.8 ml/min Est GFR ( Amer) 69.5 ml/min Est GFR (Non-Af Amer) 60.0 ml/min BUN/Creatinine Ratio 23.0 H (10-20) Glucose 102 H (70-99) mg/dl Calcium 8.0 L (8.5-10.1) mg/dl Phosphorus 3.9 D (2.5-4.9) mg/dl Magnesium 2.1 (1.8-2.4) mg/dl
[2021-02-25] MEDS: SENNA 8.6 MG TAB PO SCH (20:55)
[2021-02-25] MEDS: VERAPAMIL HCL 180 MG TABCR PO SCH (20:56)
[2021-02-25] MEDS: CeleBREX 200 MG CAP PO SCH (20:57)
[2021-02-26] MEDS: ACETAMINOPHEN 500 MG TAB PO SCH ×3 (05:45→21:59)
[2021-02-26] MEDS: LEVOTHYROXINE SODIUM 150 MCG TABLET PO SCH (05:46)
--- NOTE | 2021-02-26 08:05 | Hospitalist Progress Note ---
Date of Service February 26, 2021 Assessment & Plan (1) Closed hip fracture: Isma Wesley is a 85-year-old male with past medical history significant for COPD, GERD, hypertension, obstructive sleep apnea, recent pneumonia, who was admitted to [facility] on 02/24 for right femoral neck fracture s/p mechanical fall. Right femoral neck fracture s/p hemiarthroplasty Right hemiarthroplasty performed 02/24 Plan per ortho: Weightbearing as tolerated with walker assistance Abduction pillow use x6 weeks Ice with EZ wrap Keep silverlon dressing in place Total hip precautions DVT ppx with MANAN stockings and aspirin Plan for discharge to rehab facility for at least one week before transitioning home with home health services Follow up at [facility] in two weeks Continue oxycodone 5-10mg PO q4h prn PE Patient with exertional desaturation to mid-70s on 02/26 CTA (02/26) notable for small nonocclusive thrombus within left upper lobe branch of pulmonary artery which could represent subacute or old pulmonary embolus BL LE doppler ordered (02/26) Will discuss with orthopedics Holding off on further anticoagulation at this time Pulmonary opacities on CTA CTA (02/26) with multifocal pulmonary opacities, slightly improved, within the right upper lobe a new within inferior peripheral aspect of the right upper lobe - most likely represent infectious/inflammatory process Patient afebrile and without other signs/symptoms of infection Per radiology recommendation, follow-up in 4-6 weeks to document resolution COPD Patient is on 2L NC at nighttime and none during the day nor with exertion Patient currently satting well on 4L NC; wean as tolerated Transition home inhalers to hospital formulary Hypothyroidism Continue synthroid GERD Continue protonix Hypertension Continue verapamil, lasix FEN: heart healthy diet Code status: full code DVT ppx: MANAN stockings, ASA Isolation: none Dispo: med/surg tele (2) Hypothyroidism (acquired): (3) GERD (gastroesophageal reflux disease): (4) Hypertension: Admission and Anticipated Discharge Date Admission Date: February 24, 2021 Supervising Physician Co-Signing Physician Notes I saw the patient independent of the resident physician performed my own history and exam. I discussed the patient with the resident physician. I agree with the impression plan as noted in the resident documentation and as summarized below. Upon my visit this morning, he was working with physical therapy. It was noted that during ambulation from the bedside chair to the desk, approximately 10 feet, the patient's pulse oximetry reading dropped from greater than 95% to the upper 70s, despite being on oxygen. Additionally, the patient was speaking on the phone he was noted to have conversational dyspnea. The patient tells me that it would not be unusual for him to have dyspnea with exertion or an occasional pause during conversation, but he also symptoms today are slightly worse than his baseline. Based on his decreased oxygenation, ordered a CT scan to exclude pulmonary embolism. Exam 135/82, 95, 16, 36.5, 96% on nasal cannula 2 L/min Heart regular rate and rhythm Lungs with mid to end expiratory wheezing; decreased air exchange Chronic venous stasis changes of the lower extremities bilaterally; no tenderness or warmth appreciated. Trace edema of the lower extremities bilaterally Data CT scan of the chest done this afternoon shows small, nonocclusive thrombus within the left upper branch of pulmonary artery possibly representing subacute or old pulmonary emboli. Multifocal pulmonary opacities Small bilateral pleural effusion Slightly prominent mediastinal lymph nodes, suggestive of reactive lymphadenopathy. Assessment and Plan Hypoxia History of COPD, acute aspiration on chronic Subacute nonocclusive thrombus I think given the patient's significant drop in oxygenation with minimal activity, have to consider the pulmonary emboli as the source He does have a multifocal pulmonary opacities, though suspect if this was infection, he would have other signs or symptoms consistent with pulmonary infection By examination today, also seems to be in a COPD flare (tight, mid and expiratory wheezing). Begin systemic anticoagulation with Lovenox Add intravenous steroids for COPD exacerbation Incentive spirometry Low threshold to add antibiotics should clinical course suggest infection Check lower extremity Dopplers; this information may help determine chronicity of pulmonary emboli Closed right hip fracture Status post hemiarthroplasty Physical therapy Pain control Else per resident documentation Subjective Patient seen and evaluated at bedside this morning. No acute events overnight. Patient feels well this morning and has no complaints. Patient's hip pain and back pain are improving. Patient was found to be hypoxic this morning and CTA was ordered. Patient notes his SOB feels like it is at baseline, and has not been any better or worse today or recently. Denies CP, abdominal pain, lightheadedness, dizziness, calf pain/tenderness, palpitations, sweating, or other symptoms. Review of Systems Review of Systems: See HPI Physical Exam Physical Exam: Constitutional: well-appearing, no acute distress CV: regular rhythm, no murmur appreciated, extremities well-perfused Resp: CTABL, no wheezes/rales/rhonchi appreciated, no increased work of breathing MSK: right hip dressing CDI, see ortho progress note for strength testing Skin: thickened reddish skin on BL LE, 2+ pitting edema BL Neuro: AOx4, no focal neurological deficits appreciated Results & Data Results & Data ([facility]) Vital Signs (Past 12 Hours) Vital Signs Temp Pulse Resp BP Pulse Ox 02/26/21 06:09 36.7 C 88 16 146/84 H 91 02/25/21 22:53 37.1 C 74 16 126/79 91 Resident Activity Tracking Resident Involvement: Resident Care Provided Care Provided: Adult Hospital Medicine (1) Closed hip fracture Encounter type: initial encounter Laterality: right Qualified Code(s): S72.001A - Fracture of unspecified part of neck of right femur, initial encounter for closed fracture (2) GERD (gastroesophageal reflux disease) Esophagitis presence: esophagitis presence not specified Qualified Code(s): K21.9 - Gastro-esophageal reflux disease without esophagitis (3) Hypertension Hypertension type: essential hypertension Qualified Code(s): I10 - Essential (primary) hypertension
[2021-02-26] MEDS: ASPIRIN 81 MG ECTAB PO SCH ×2 (08:34→21:57)
[2021-02-26] MEDS: MULTIVITAMIN TAB PO SCH (08:34)
[2021-02-26] MEDS: CeleBREX 200 MG CAP PO SCH ×2 (08:34→21:58)
[2021-02-26] MEDS: PANTOprazole 40 MG TAB PO SCH (08:35)
[2021-02-26] MEDS: CHOLECALCIFEROL 1,000 UNITS 25 MCG TAB PO SCH (08:35)
[2021-02-26] MEDS: POTASSIUM CHLORIDE CRTAB 20 MEQ TABCR PO SCH (08:35)
[2021-02-26] MEDS: DOCUSATE SODIUM 100 MG CAP PO SCH ×2 (08:35→21:58)
[2021-02-26] MEDS: TAMSULOSIN HCL 0.4 MG CAP PO PRN (08:36)
[2021-02-26] MEDS: FUROSEMIDE 40 MG TAB PO SCH (08:37)
[2021-02-26] MEDS: CALCIUM 600MG + VIT D 400 IU TAB PO SCH (08:37)
[2021-02-26] MEDS: UMECLIDINIUM/VILANTEROL 62.5/25MCG 7 PUFFS/INHALER INH SCH (08:38)
[2021-02-26] MEDS: FLUTICASONE FUROATE 100MCG 14 PUFFS/INHALER INH SCH (08:38)
--- NOTE | 2021-02-26 09:18 | Orthopedic Progress Note ---
Date of Service February 26, 2021 Assessment & Plan (1) S/P hip hemiarthroplasty: PT/OT Weightbearing as tolerated with walker assistance Abduction pillow use x6 weeks Ice with E Z wrap Keep Silverlon dressing in place DVT prophylaxis with MANAN stockings and aspirin Pain control with p.o. medication Total hip precautions Patient plans on being discharged to a rehab facility for least 1 week and then May transition to in-home health services Follow-up at [facility] orthopedics in 2 weeks. With questions contact clinic at [phone] Admission and Anticipated Discharge Date Admission Date: February 24, 2021 Subjective This 85-year-old male is day 2 status post right hip hemiarthroplasty following fracture. States he is doing very well. States his pain is well controlled with p.o. medication. He states that he prefers to go to [facility] for rehab but is awaiting insurance approval. Currently he denies chest pain, shortness of breath, fever, chills, sweats, lethargy, numbness or tingling in his right lower extremity, nausea, vomiting or diarrhea Review of Systems Review of Systems: All systems reviewed & are unremarkable except as noted in Subjective Physical Exam Physical Exam: Right hip: Silverlon dressing is clean dry and intact. Patient is able to perform an active straight leg raise test. He is able to actively dorsi and plantarflex his foot and has no pain with applied resistance. Light passive internal rotation causes some tension. Passive external rotation causes no pain. Knee range of motion from 0 to 90 degrees. Quad strength 3 out of 5. Patient does have venous stasis dermatitis in both lower extremities with 2+ pitting edema. Peripheral pulses are palpable. He is neurovascularly intact in right lower extremity. Results & Data ([facility]) Vital Signs (Past 12 Hours) Vital Signs Temp Pulse Resp BP Pulse Ox 02/26/21 06:09 36.7 C 88 16 146/84 H 91 02/25/21 22:53 37.1 C 74 16 126/79 91
[2021-02-26] MEDS ORDERED: OPTIRAY 350 500ml IV ONE (11:02)
--- NOTE | 2021-02-26 11:31 | CT Scan Report ---
CT ANGIOGRAM OF THE CHEST CLINICAL HISTORY: PE SHORTNESS OF BREATH COMPARISON STUDY: February 13, 2021 TECHNIQUE: Following the IV administration of 118 mL of Optiray, CT angiogram of the thorax was perfo rmed from the thoracic inlet to the lung bases utilizing the pulmonary embolus protocol. Images are r eviewed in the axial, sagittal, and coronal planes. IV contrast was administered without complication . MIP imaging was performed. A dose lowering technique was utilized adhering to the principles of [place] CORNELIO. CT DOSE: 839.62 mGy.cm FINDINGS: There is small nonocclusive thrombosis is seen within left upper lobe pulmonary artery branch. Overal l evaluation is limited due to suboptimal opacification within main pulmonary artery. Evaluation of s mall peripheral branches of the pulmonary arteries limited due to respiratory motion artifact. Mild interval dilatation of the main pulmonary artery is seen measuring 3.4 cm in diameter when obdulio red to recent prior study. No evidence of right heart strain. No cardiomegaly or pericardial effusion seen. Severe coronary calc ifications are seen. There is no axillary, supra clavicle or internal mammary lymphadenopathy seen. Multiple mediastinal a nd hilar lymph nodes are slightly prominent measuring up to 1.1 cm in short axis. Thoracic aorta is normal in caliber with extensive partially calcified plaques within its wall. Tracheobronchial tree is patent. Mild diffuse thickening of bronchial rios are seen bilaterally. Moderate centrilobular upper lobe predominant emphysema is seen. Previously seen irregular mass within right upper lobe appear less dense since prior study and show o pacified vessels coursing through it most likely representing improvement of infectious/inflammatory process. Previously seen satellite nodule is again demonstrated and seen on image 201, series 4. Interval development of peripheral groundglass attenuation at the inferior aspect of the right upper lobe which might represent infiltrative process/pneumonia. Interval development of the small bilateral pleural effusion. Evaluation of pulmonary parenchyma is limited due to respiratory motion artifact. Limited evaluation of upper abdominal viscera shows no evidence of acute abnormalities. Evaluation of osseous structures shows multilevel degenerative changes of the spine and diffuse osteo penia. IMPRESSION: 1. Small nonocclusive thrombus is seen within left upper lobe branch of pulmonary artery which could represent subacute or old pulmonary embolus. 2. Interval dilatation of the main pulmonary artery which could be seen in pulmonary hypertension. N o evidence of right heart strain. 3. Multifocal pulmonary opacities, slightly improved within the right upper lobe a new within inferi or peripheral aspect of the right upper lobe most likely represent infectious/inflammatory process. S hort-term follow-up in 4-6 weeks is recommended to document resolution. 4. Interval development of small bilateral pleural effusion. 5. Emphysema. 6. Slightly prominent mediastinal lymph nodes, likely reactive. ACT 112: Negative or not required by law. The above report was generated using voice recognition software. It may contain grammatical, syntax o r spelling errors. Electronically signed by: Kayla Orellana DO 02/26/2021 11:30 AM
[2021-02-26] MEDS ORDERED: methylPREDNISolone 60 MG in SYRINGE 0 ML IV ONE (17:15)
--- NOTE | 2021-02-26 17:49 | Ultrasound Report ---
BILATERAL LOWER EXTREMITY VENOUS DOPPLER CLINICAL HISTORY: subacute PE COMPARISON STUDY: Left lower extremity venous Doppler ultrasound October 19, 2020. Right lower extre mity venous Doppler ultrasound November 02, 2019. TECHNIQUE: Sonography of the deep venous system of the bilateral lower extremities was performed. Co mpression and augmentation were evaluated. FINDINGS: This exam is mildly compromised due to difficulty positioning. The bilateral common femoral , superficial femoral and popliteal veins were compressible. Augmentation was normal. Flow was shown within the deep calf vessels. IMPRESSION: No evidence of deep venous thrombus within the bilateral lower extremities. ACT 112: Negative or not required by law. Electronically signed by: Conner Villalpando M.D. 02/26/2021 5:48 PM
[2021-02-26] MEDS ORDERED: ENOXAPARIN 100 MG/1ML SYR SQ SCH (18:00)
[2021-02-26] MEDS: SENNA 8.6 MG TAB PO SCH (21:58)
[2021-02-26] MEDS: VERAPAMIL HCL 180 MG TABCR PO SCH (21:58)
[2021-02-27] MEDS: LEVOTHYROXINE SODIUM 150 MCG TABLET PO SCH (05:27)
[2021-02-27] MEDS: ACETAMINOPHEN 500 MG TAB PO SCH ×3 (05:27→22:25)
[2021-02-27 06:18] LABS: Basophils # (auto) 0.01 K/uL (0-0.2); Basophils % (auto) 0.1 %; Immature Granulocytes # (auto) 0.13 K/uL (0.00-0.02); Immature Granulocytes % (auto) 0.9 %; Lymphocytes # (auto) 0.85 K/uL (1.2-3.4); Lymphocytes % (auto) 6.1 %; Mean Corpuscular Hemoglobin 30.8 pg (25-34); Mean Corpuscular Hgb Conc 33.3 g/dL (32-36); Mean Corpuscular Volume 92.3 fL (80-100); Mean Platelet Volume 12.3 fL (7.4-10.4); Monocytes # (auto) 1.26 K/uL (0.11-0.59); Neutrophils % (auto) 83.9 %; Platelet Count 245 K/uL (130-400); RDW Coefficient of Variation 14.6 % (11.5-14.5); RDW Standard Deviation 49.5 fL (36.4-46.3); Red Blood Count 4.55 M/uL (4.7-6.1); White Blood Count 13.95 K/uL (4.8-10.8)
[2021-02-27 06:54] LABS: BUN Creatinine Ratio 24.3 (10-20); Calcium 8.8 mg/dl (8.5-10.1); Creatinine Clr Calc Pharmacy 51.3 ml/min; Est GFR (African American) 61.5 ml/min; Est GFR (Non-African American) 53.1 ml/min
[2021-02-27] MEDS: CHOLECALCIFEROL 1,000 UNITS 25 MCG TAB PO SCH (08:59)
[2021-02-27] MEDS: CALCIUM 600MG + VIT D 400 IU TAB PO SCH (08:59)
[2021-02-27] MEDS: MAGNESIUM OXIDE 400 MG TAB PO SCH (08:59)
[2021-02-27] MEDS: PANTOprazole 40 MG TAB PO SCH (08:59)
[2021-02-27] MEDS: ASPIRIN 81 MG ECTAB PO SCH ×2 (08:59→20:35)
[2021-02-27] MEDS: FUROSEMIDE 40 MG TAB PO SCH (09:00)
[2021-02-27] MEDS: POTASSIUM CHLORIDE CRTAB 20 MEQ TABCR PO SCH (09:00)
[2021-02-27] MEDS: CeleBREX 200 MG CAP PO SCH ×2 (09:00→20:35)
[2021-02-27] MEDS: DOCUSATE SODIUM 100 MG CAP PO SCH ×2 (09:00→20:34)
[2021-02-27] MEDS: UMECLIDINIUM/VILANTEROL 62.5/25MCG 7 PUFFS/INHALER INH SCH (09:01)
[2021-02-27] MEDS: MULTIVITAMIN TAB PO SCH (09:01)
[2021-02-27] MEDS: FLUTICASONE FUROATE 100MCG 14 PUFFS/INHALER INH SCH (09:01)
[2021-02-27] MEDS: predniSONE 20 MG TAB PO SCH (09:02)
--- NOTE | 2021-02-27 09:26 | Orthopedic Progress Note ---
Date of Service February 27, 2021 Assessment & Plan (1) S/P hip hemiarthroplasty: PT/OT Weightbearing as tolerated with walker assistance Abduction pillow use x6 weeks Ice with E Z wrap Keep Silverlon dressing in place DVT prophylaxis with MANAN stockings and aspirin Pain control with p.o. medication Total hip precautions Patient plans on being discharged to a rehab facility for least 1 week and then May transition to in-home health services Follow-up at [facility] orthopedics in 2 weeks. With questions contact clinic at [phone] Admission and Anticipated Discharge Date Admission Date: February 24, 2021 Subjective Patient sitting up in bed, no complaints of pain right hip. Tolerating regular diet. Denies shortness of breath, chest pain, lightheadedness, dizziness. Physical Exam Physical Exam: Right hip incision clean, dry and intact. Silverlon in place. 1+ Edema in right leg to foot. No calf or thigh tenderness. Strength 5/5 at ankle. Distal pulses 1+, sensation normal. Calf supple. Able to actively do gentle flexion and extension of right knee and right ankle ankle. No pain with log rolling of his right hip. Results & Data ([facility]) Vital Signs (Past 12 Hours) Vital Signs Temp Pulse Resp BP Pulse Ox 02/27/21 08:06 36.5 C 95 H 20 148/89 H 93 02/26/21 22:00 36.9 C 85 20 152/94 H 95 Laboratory Results 02/27/21 02/27/21 02/27/21 Range/Units 06:53 05:58 05:58 WBC 13.95 H (4.8-10.8) K/uL RBC 4.55 L (4.7-6.1) M/uL Hgb 14.0 (14.0-18.0) g/dL Hct 42.0 (42-52) % MCV 92.3 (80-100) fL MCH 30.8 (25-34) pg MCHC 33.3 (32-36) g/dL RDW Std Deviation 49.5 H (36.4-46.3) fL RDW Coeff of Jordan 14.6 H (11.5-14.5) % Plt Count 245 (130-400) K/uL MPV 12.3 H (7.4-10.4) fL Immature Gran % (Auto) 0.9 % Neut % (Auto) 83.9 % Lymph % (Auto) 6.1 % Montague % (Auto) 9.0 % Eos % (Auto) 0.0 % Baso % (Auto) 0.1 % Neut # (Auto) 11.70 H (1.4-6.5) K/uL Lymph # (Auto) 0.85 L (1.2-3.4) K/uL Montague # (Auto) 1.26 H (0.11-0.59) K/uL Eos # (Auto) 0.00 (0-0.5) K/uL Baso # (Auto) 0.01 (0-0.2) K/uL Immature Gran # (Auto) 0.13 H (0.00-0.02) K/uL Sodium 137 (136-145) mmol/L Potassium 4.8 (3.5-5.1) mmol/L Chloride 108 H (98-107) mmol/L Carbon Dioxide 23 (21-32) mmol/L Anion Gap 6.0 (3-11) BUN 30 H (7-18) mg/dl Creatinine 1.24 (0.6-1.4) mg/dl Est Cr Clr Drug Dosing 51.3 ml/min Est GFR ( Amer) 61.5 ml/min Est GFR (Non-Af Amer) 53.1 ml/min BUN/Creatinine Ratio 24.3 H (10-20) Glucose 106 H (70-99) mg/dl Calcium 8.8 (8.5-10.1) mg/dl
--- NOTE | 2021-02-27 09:44 | Hospitalist Progress Note ---
Date of Service February 27, 2021 Assessment & Plan (1) Closed hip fracture: Isma Wesley is a 85-year-old male with past medical history significant for COPD, GERD, hypertension, obstructive sleep apnea, recent pneumonia, who was admitted to [facility] on 02/24 for right femoral neck fracture s/p mechanical fall. Right femoral neck fracture s/p hemiarthroplasty Right hemiarthroplasty performed 02/24 Plan per ortho: Weightbearing as tolerated with walker assistance Abduction pillow use x6 weeks Ice with EZ wrap Keep silverlon dressing in place Total hip precautions DVT ppx with MANAN stockings and aspirin Plan for discharge to rehab facility for at least one week before transitioning home with home health services Follow up at [facility] Orthopedics in two weeks Continue oxycodone 5-10mg PO q4h prn Pulmonary embolism Patient with exertional desaturation to mid-70s on 02/26 CTA (02/26) notable for small nonocclusive thrombus within left upper lobe branch of pulmonary artery which could represent subacute or old pulmonary embolus BL LE doppler (02/26) without evidence of DVT Per discussion with pulmonology, given LE doppler findings, reasonable to withhold anticoagulation beyond ASA and MANAN stockings Pulmonary opacities on CTA CTA (02/26) with multifocal pulmonary opacities, slightly improved, within the right upper lobe a new within inferior peripheral aspect of the right upper lobe - most likely represent infectious/inflammatory process Patient afebrile and without other signs/symptoms of infection Per radiology recommendation, follow-up in 4-6 weeks to document resolution COPD Home oxygen regimen: 2L NC at nighttime and none during the day nor with exertion Patient currently satting well on 4L NC; wean as tolerated Short steroid course - IV solumedrol discontinued, continue prednisone 40mg qd Transition home inhalers to hospital formulary Positive MRSA nasal swab MRSA nasal swab positive 01/16/21 Contact precautions Hypothyroidism Continue synthroid GERD Continue protonix Hypertension Continue verapamil, lasix FEN: [regular diet], [LR @ 80mL/hr] Code status: full code DVT ppx: ASA, MANAN stockings Isolation: contact Dispo: med/surg (2) Hypothyroidism (acquired): (3) GERD (gastroesophageal reflux disease): (4) Hypertension: Admission and Anticipated Discharge Date Admission Date: February 24, 2021 Supervising Physician Co-Signing Physician Notes I saw the patient independent of the resident physician performed my own history and exam. I discussed the patient with the resident physician. I agree with the impression plan as noted in the resident documentation and as summarized below. Patient tells me this morning that he had less shortness of breath with ambulation; he describes making 3 trips between his bed and the desk in his room (yesterday one trip caused significant dyspnea). Exam 148/89, 95, 20, 36.5, 93% on nasal cannula 3 L/min Heart regular rate and rhythm Lungs are improved -wheezing heard yesterday has essentially resolved, except for some very mild end expiratory wheeze. Chronic venous stasis changes of the lower extremities bilaterally; no tenderness or warmth appreciated. Assessment and Plan Hypoxia History of COPD, acute aspiration on chronic Subacute nonocclusive thrombus The patient has marked improvement in his dyspnea today. Upon my examination, the wheezing noted on yesterday's exam has essentially resolved. Reviewed CT scan with his blast setter; with his improvement, and the subacute, nonocclusive thrombus, reasonable to discontinue systemic anticoagulation. Continue post arthroplasty DVT prophylaxis I suspect the addition of steroids provided the improvement Closed right hip fracture Status post hemiarthroplasty Physical therapy Pain control Else per resident documentation Subjective Patient seen and evaluated at bedside this morning. No acute events overnight. Patient feels well this morning. Reports hip pain is 0/10 at rest and 3-4/10 with exertion. Reports SOB unchanged from baseline, no better nor worse than . Patient denies CP, abdominal pain, nausea, vomiting, lightheadedness, dizziness, or other symptoms. Review of Systems Review of Systems: See HPI Results & Data Results & Data ([facility]) Vital Signs (Past 12 Hours) Vital Signs Temp Pulse Resp BP Pulse Ox 02/27/21 08:06 36.5 C 95 H 20 148/89 H 93 02/26/21 22:00 36.9 C 85 20 152/94 H 95 Resident Activity Tracking Resident Involvement: Resident Care Provided Care Provided: Adult Hospital Medicine (1) Closed hip fracture Encounter type: initial encounter Laterality: right Qualified Code(s): S72.001A - Fracture of unspecified part of neck of right femur, initial encounter for closed fracture (2) GERD (gastroesophageal reflux disease) Esophagitis presence: esophagitis presence not specified Qualified Code(s): K21.9 - Gastro-esophageal reflux disease without esophagitis (3) Hypertension Hypertension type: essential hypertension Qualified Code(s): I10 - Essential (primary) hypertension
[2021-02-27] MEDS ORDERED: ENOXAPARIN 100 MG/1ML SYR SQ SCH (12:00)
[2021-02-27] MEDS: SENNA 8.6 MG TAB PO SCH (20:34)
[2021-02-27] MEDS: VERAPAMIL HCL 180 MG TABCR PO SCH (20:36)
[2021-02-28] MEDS: ACETAMINOPHEN 500 MG TAB PO SCH ×3 (05:50→20:46)
[2021-02-28] MEDS: LEVOTHYROXINE SODIUM 150 MCG TABLET PO SCH (05:50)
[2021-02-28 06:15] LABS: BUN Creatinine Ratio 31.3 (10-20); Calcium 8.5 mg/dl (8.5-10.1); Creatinine Clr Calc Pharmacy 64.2 ml/min; Est GFR (African American) 80.7 ml/min; Est GFR (Non-African American) 69.6 ml/min; Potassium 4.5 mmol/L (3.5-5.1)
[2021-02-28] MEDS: CHOLECALCIFEROL 1,000 UNITS 25 MCG TAB PO SCH (08:21)
[2021-02-28] MEDS: MULTIVITAMIN TAB PO SCH (08:21)
[2021-02-28] MEDS: UMECLIDINIUM/VILANTEROL 62.5/25MCG 7 PUFFS/INHALER INH SCH (08:21)
[2021-02-28] MEDS: FUROSEMIDE 40 MG TAB PO SCH (08:21)
[2021-02-28] MEDS: ASPIRIN 81 MG ECTAB PO SCH ×2 (08:21→20:45)
[2021-02-28] MEDS: FLUTICASONE FUROATE 100MCG 14 PUFFS/INHALER INH SCH (08:21)
[2021-02-28] MEDS: PANTOprazole 40 MG TAB PO SCH (08:21)
[2021-02-28] MEDS: CALCIUM 600MG + VIT D 400 IU TAB PO SCH (08:21)
[2021-02-28] MEDS: CeleBREX 200 MG CAP PO SCH ×2 (08:21→20:46)
[2021-02-28] MEDS: DOCUSATE SODIUM 100 MG CAP PO SCH ×2 (08:22→20:45)
[2021-02-28] MEDS: POTASSIUM CHLORIDE CRTAB 20 MEQ TABCR PO SCH (08:22)
[2021-02-28] MEDS: predniSONE 20 MG TAB PO SCH (08:22)
--- NOTE | 2021-02-28 10:19 | Orthopedic Progress Note ---
Date of Service February 28, 2021 Assessment & Plan (1) S/P hip hemiarthroplasty: Patient is awaiting transfer to [facility]. A bed is available tomorrow. He is hoping to go. Continue PT/OT. Leave the Silverlon dressing in place until rechecked in the office for staple removal. Patient's O2 sat is 85% on 3 L nasal cannula this morning. This will be addressed by the hospitalist service. Patient currently states he has no hip pain and is only sore. He also denies being significantly short of breath this morning. We will recheck him tomorrow prior to any discharge. Admission and Anticipated Discharge Date Admission Date: February 24, 2021 Subjective Patient is seen in his room this morning. He currently denies any complaints. States his hip is sore but denies any shalini pain. He currently has a cough. He states he is hoping to go to [facility] tomorrow. Review of Systems Review of Systems: Unchanged from yesterday. Physical Exam Physical Exam: General: Well-developed, elderly white male, in no acute distress. Sitting in a chair. Finishing breakfast. Alert and conversive. Skin: Warm and dry with good turgor. Right hip has a Silverlon dressing in plac e. No bleedthrough. Moderate ecchymosis present around the hip incision. Expected postsurgical edema. No skin breakdown. Musculoskeletal: Patient has intact motor function actively with the right hip. He is able to actively flex as well as Adduct and Abduct the hip. Intact motor function to the knee and ankle as well. Neurologic: Gross sensation is intact across the right leg by soft touch. Peripheral pulses are 1+. Results & Data ([facility]) Vital Signs (Past 12 Hours) Vital Signs Temp Pulse Resp BP Pulse Ox 02/28/21 08:05 115 H 85 L 02/28/21 07:41 36.4 C L 89 18 158/89 H 97 02/27/21 22:56 36.4 C L 87 18 151/91 H 96
--- NOTE | 2021-02-28 15:09 | Hospitalist Progress Note ---
Date of Service February 28, 2021 Assessment & Plan (1) Closed hip fracture: Isma Wesley is a 85-year-old male with past medical history significant for COPD, GERD, hypertension, obstructive sleep apnea, recent pneumonia, who was admitted to [facility] on 02/24 for right femoral neck fracture s/p mechanical fall. Right femoral neck fracture s/p hemiarthroplasty Right hemiarthroplasty performed 02/24 Plan per ortho: Weightbearing as tolerated with walker assistance Abduction pillow use x6 weeks Ice with EZ wrap Keep silverlon dressing in place Total hip precautions DVT ppx with MANAN stockings and aspirin bid Plan for discharge to rehab facility for at least one week before transitioning home with home health services Follow up at [facility] Orthopedics in two weeks Continue oxycodone 5-10mg PO q4h prn Pulmonary embolism Patient with exertional desaturation to mid-70s on 02/26 CTA (02/26) notable for small nonocclusive thrombus within left upper lobe branch of pulmonary artery which could represent subacute or old pulmonary embolus BL LE doppler (02/26) without evidence of DVT Per discussion with pulmonology, given LE doppler findings, reasonable to withhold anticoagulation beyond ASA and MANAN stockings Pulmonary opacities on CTA CTA (02/26) with multifocal pulmonary opacities, slightly improved, within the right upper lobe a new within inferior peripheral aspect of the right upper lobe - most likely represent infectious/inflammatory process Patient afebrile and without other signs/symptoms of infection Per radiology recommendation, follow-up in 4-6 weeks to document resolution COPD Home oxygen regimen: 2L NC at nighttime and none during the day nor with exertion Patient currently satting well on 4L NC; wean as tolerated Short steroid course - IV solumedrol discontinued, continue prednisone 40mg qd through 03/02 Transition home inhalers to hospital formulary Positive MRSA nasal swab MRSA nasal swab positive 01/16/21 Contact precautions Hypothyroidism Continue synthroid GERD Continue protonix Hypertension Continue verapamil, lasix FEN: heart healthy diet Code status: full code DVT ppx: ASA, MANAN stockings Isolation: contact Dispo: med/surg (2) Hypothyroidism (acquired): (3) GERD (gastroesophageal reflux disease): (4) Hypertension: Admission and Anticipated Discharge Date Admission Date: February 24, 2021 Supervising Physician Co-Signing Physician Notes I saw the patient independent of the resident physician performed my own history and exam. I discussed the patient with the resident physician. I agree with the impression plan as noted in the resident documentation and as summarized below. Patient continues to feel better with less shortness of breath with ambulation. Patient was ambulatory in the hallway today; per his report, his oxygen level remained in the low 90s. Exam 158/99, 90, 20, 36.6, 99% on 3 L via nasal cannula Heart regular rate and rhythm Lungs slightly rhonchorous, transmitted upper airway sounds; very and expiratory wheeze. No crackles. Chronic venous stasis changes of the lower extremities bilaterally; pressure stockings are applied Data BUN 31, creatinine 0.99. Assessment and Plan Hypoxia History of COPD, acute aspiration on chronic Subacute nonocclusive thrombus Continues to improve from a pulmonary standpoint; he has been on nocturnal oxygen prior to his admission, but I suspect when he goes home he may need oxygen with activity as well He will need follow-up with pulmonary medicine after he is discharged from inpatient rehabilitation Continue post arthroplasty DVT prophylaxis I suspect the addition of steroids provided the greatest improvement in terms of his pulmonary status over the past couple days Closed right hip fracture Status post hemiarthroplasty Physical therapy -awaiting authorization for inpatient rehabilitation Pain control seems good Else per resident documentation Subjective Patient seen and evaluated at bedside this morning. No acute events overnight. Patient feels well today and has no complaints. Reports feeling the same today as he has the past few days. SOB unchanged. Hip pain well-controlled. Has been working well with PT and is eager for DC. Awaiting insurance authorization for [employer]. Patient denies CP, SOB, abdominal pain, nausea, vomiting, lightheadedness, dizziness, confusion, dysuria, diarrhea, or other symptoms. Review of Systems Review of Systems: See HPI Physical Exam Physical Exam: Constitutional: well-appearing, no acute distress CV: regular rhythm, no murmur appreciated, extremities well-perfused Resp: CTABL, no wheezes/rales/rhonchi appreciated, no increased work of breathing MSK: right hip dressing CDI, see ortho progress note for strength testing Skin: thickened reddish skin on BL LE, pitting edema BL Neuro: AOx4, no focal neurological deficits appreciated Results & Data Results & Data ([facility]) Vital Signs (Past 12 Hours) Vital Signs Temp Pulse Resp BP Pulse Ox 02/28/21 08:05 115 H 85 L 06/17/21 07:41 36.4 C L 89 18 158/89 H 97 Resident Activity Tracking Resident Involvement: Resident Care Provided Care Provided: Adult Hospital Medicine (1) Closed hip fracture Encounter type: initial encounter Laterality: right Qualified Code(s): S72.001A - Fracture of unspecified part of neck of right femur, initial encounter for closed fracture (2) GERD (gastroesophageal reflux disease) Esophagitis presence: esophagitis presence not specified Qualified Code(s): K21.9 - Gastro-esophageal reflux disease without esophagitis (3) Hypertension Hypertension type: essential hypertension Qualified Code(s): I10 - Essential (primary) hypertension
[2021-02-28] MEDS: SENNA 8.6 MG TAB PO SCH (20:46)
[2021-02-28] MEDS: VERAPAMIL HCL 180 MG TABCR PO SCH (20:46)
[2021-03-01] MEDS: LEVOTHYROXINE SODIUM 150 MCG TABLET PO SCH (05:32)
[2021-03-01] MEDS: ACETAMINOPHEN 500 MG TAB PO SCH ×3 (05:32→21:59)
[2021-03-01] MEDS: MULTIVITAMIN TAB PO SCH (08:46)
[2021-03-01] MEDS: CeleBREX 200 MG CAP PO SCH ×2 (08:46→20:46)
[2021-03-01] MEDS: predniSONE 20 MG TAB PO SCH (08:46)
[2021-03-01] MEDS: FUROSEMIDE 40 MG TAB PO SCH (08:47)
[2021-03-01] MEDS: CALCIUM 600MG + VIT D 400 IU TAB PO SCH (08:47)
[2021-03-01] MEDS: CHOLECALCIFEROL 1,000 UNITS 25 MCG TAB PO SCH (08:47)
[2021-03-01] MEDS: PANTOprazole 40 MG TAB PO SCH (08:47)
[2021-03-01] MEDS: POTASSIUM CHLORIDE CRTAB 20 MEQ TABCR PO SCH (08:47)
[2021-03-01] MEDS: DOCUSATE SODIUM 100 MG CAP PO SCH ×2 (08:47→20:46)
[2021-03-01] MEDS: ASPIRIN 81 MG ECTAB PO SCH ×2 (08:47→20:45)
[2021-03-01] MEDS: MAGNESIUM OXIDE 400 MG TAB PO SCH (08:48)
--- NOTE | 2021-03-01 11:23 | Orthopedic Progress Note ---
Date of Service March 01, 2021 Assessment & Plan (1) S/P hip hemiarthroplasty: PT/OT Weightbearing as tolerated with walker assistance Abduction pillow use x6 weeks Ice with E Z wrap Keep Silverlon dressing in place DVT prophylaxis with MANAN stockings and aspirin Pain control with p.o. medication Total hip precautions Plan on discharge to [facility] today for inpatient rehab Follow-up at [facility] orthopedics in 2 weeks. With questions contact clinic at [phone] Admission and Anticipated Discharge Date Admission Date: February 24, 2021 Subjective This 85-year-old male is day 5 status post right hip hemiarthroplasty following fracture. He states that he still feels short of breath but states it is hip pain is well controlled. He states that he talk with case management this morning and was advised that there is a bed available [facility] and he plans on going there for inpatient rehab. Currently he denies any chest pain, fever, chills, sweats, lethargy, numbness or tingling in his right lower extremity, nausea, vomiting, diarrhea or difficulty urinating Review of Systems Review of Systems: All systems reviewed & are unremarkable except as noted in Subjective Physical Exam Physical Exam: Right hip: Silverlon dressing is clean dry and intact. Patient is able to perform an active straight leg raise test. He is able to actively dorsi and plantarflex his foot and has no pain with applied resistance. Light passive internal rotation causes some tension. Passive external rotation causes no pain. Knee range of motion from 0 to 90 degrees. Quad strength 3 out of 5. Patient does have venous stasis dermatitis in both lower extremities with 2+ pitting edema. Peripheral pulses are palpable. He is neurovascularly intact in right lower extremity. Results & Data ([facility]) Vital Signs (Past 12 Hours) Vital Signs Temp Pulse Resp BP Pulse Ox 03/01/21 08:59 97 03/01/21 08:55 97 03/01/21 07:15 36.7 C 96 H 18 147/82 H 95
[2021-03-01] MEDS: FLUTICASONE FUROATE 100MCG 14 PUFFS/INHALER INH SCH (11:36)
[2021-03-01] MEDS: UMECLIDINIUM/VILANTEROL 62.5/25MCG 7 PUFFS/INHALER INH SCH (11:37)
--- NOTE | 2021-03-01 14:42 | Hospitalist Progress Note ---
Date of Service March 01, 2021 Assessment & Plan (1) Closed hip fracture: Isma Wesley is a 85-year-old male with past medical history significant for COPD, GERD, hypertension, obstructive sleep apnea, recent pneumonia, who was admitted to [facility] on 02/24 for right femoral neck fracture s/p mechanical fall. Right femoral neck fracture s/p hemiarthroplasty Right hemiarthroplasty performed 02/24 Plan per ortho: Weightbearing as tolerated with walker assistance Abduction pillow use x6 weeks Ice with EZ wrap Keep silverlon dressing in place Total hip precautions DVT ppx with MANAN stockings and aspirin bid Plan for discharge to rehab facility for at least one week before transitioning home with home health services Follow up at [facility] in two weeks Continue PT/OT Continue oxycodone 5-10mg PO q4h prn Pulmonary embolism 02/26: Patient with exertional desaturation to mid-70s; CTA notable for small nonocclusive thrombus within left upper lobe branch of pulmonary artery which could represent subacute or old pulmonary embolus BL LE doppler (02/26) without evidence of DVT Per discussion with pulmonology, given LE doppler findings, reasonable to withhold anticoagulation beyond ASA and MANAN stockings Pulmonary opacities on CTA CTA (02/26) with multifocal pulmonary opacities, slightly improved, within the right upper lobe a new within inferior peripheral aspect of the right upper lobe - most likely represent infectious/inflammatory process Patient afebrile and without other signs/symptoms of infection Per radiology recommendation, follow-up in 4-6 weeks to document resolution COPD Home oxygen regimen: 2L NC at nighttime and none during the day nor with exertion Patient currently satting well on 4L NC; wean as tolerated Short steroid course - IV solumedrol discontinued, continue prednisone 40mg qd through 03/02 Transition home inhalers to hospital formulary Positive MRSA nasal swab MRSA nasal swab positive 01/16/21 Contact precautions Hypothyroidism Continue synthroid GERD Continue protonix Hypertension Continue verapamil, lasix FEN: heart healthy diet Code status: full code DVT ppx: ASA, MANAN stockings Isolation: contact Dispo: med/surg (2) Hypothyroidism (acquired): (3) GERD (gastroesophageal reflux disease): (4) Hypertension: Admission and Anticipated Discharge Date Admission Date: February 24, 2021 Supervising Physician Co-Signing Physician Notes Patient seen and examined with PGY-1 Dr. Parada. Agree with history, exam findings, assessment and plan of care. In brief, Mr. Wesley ia 85 year old male with history of COPD, GERD, HTN, PRISCILA admitted with right femoral neck fracture following a mechanical fall. Feeling well. No complaints today. VS and nursing notes reviewed. Well appearing. Heart with regular rate and rhythm. Lungs are clear to auscultation. No wheezes, ronchi or rales. 1. Right femoral neck fracture s/p right hemiarthroplasty on 02/24. Care per ortho. Follow up in 2 weeks with ortho. 2. PE. Small thrombus in left upper lobe branch of pulmonary arterysubacute or old PE. No DVT on Doppler. Ok to not anticoagulated beyond ASA? 3. COPD. Home O2 is 2L. continue pred 40mg--end date 03/02. Dispo: pending bed at [facility]. Subjective Patient seen and evaluated at bedside this morning. No acute events overnight. Patient reports no change in symptoms or new symptoms. Again, patient reports his SOB is unchanged from baseline. Patient reports his hip pain is well- controlled at this time. Patient worked with PT yesterday and was able to walk a bit farther than he had been able to the day before. Patient denies any dizziness, lightheadedness, or CP during his walk. Patient has no complaints or new symptoms today. Patient was scheduled for discharge today to [facility], but [facility] notified CM that they had to give patient's bed to a community member. Patient has been told he will "definitely" have a bed at [facility] tomorrow. CM following. Patient denies CP, bdominal pain, nausea, vomiting, lightheadedness, dizziness, back pain, weakness, confusion, dysuria, diarrhea, or other symptoms. Review of Systems Review of Systems: See HPI Physical Exam Physical Exam: Constitutional: well-appearing, no acute distress CV: regular rhythm, no murmur appreciated, extremities well-perfused Resp: CTABL, no wheezes/rales/rhonchi appreciated, no increased work of breathing MSK: right hip dressing CDI, see ortho progress note for strength testing Skin: thickened reddish skin on BL LE, pitting edema BL Neuro: AOx4, no focal neurological deficits appreciated Results & Data Results & Data ([facility]) Vital Signs (Past 12 Hours) Vital Signs Temp Pulse Resp BP Pulse Ox 03/01/21 08:59 97 03/01/21 08:55 97 03/01/21 07:15 36.7 C 96 H 18 147/82 H 95 Resident Activity Tracking Resident Involvement: Resident Care Provided Care Provided: Adult Hospital Medicine (1) Closed hip fracture Encounter type: initial encounter Laterality: right Qualified Code(s): S72.001A - Fracture of unspecified part of neck of right femur, initial encounter for closed fracture (2) GERD (gastroesophageal reflux disease) Esophagitis presence: esophagitis presence not specified Qualified Code(s): K21.9 - Gastro-esophageal reflux disease without esophagitis (3) Hypertension Hypertension type: essential hypertension Qualified Code(s): I10 - Essential (primary) hypertension
[2021-03-01] MEDS: SENNA 8.6 MG TAB PO SCH (20:47)
[2021-03-01] MEDS: VERAPAMIL HCL 180 MG TABCR PO SCH (20:47)
[2021-03-02] MEDS: ACETAMINOPHEN 500 MG TAB PO SCH ×2 (05:37→13:59)
[2021-03-02] MEDS: LEVOTHYROXINE SODIUM 150 MCG TABLET PO SCH (05:37)
[2021-03-02] MEDS: FLUTICASONE FUROATE 100MCG 14 PUFFS/INHALER INH SCH (09:28)
[2021-03-02] MEDS: FUROSEMIDE 40 MG TAB PO SCH (09:29)
[2021-03-02] MEDS: PANTOprazole 40 MG TAB PO SCH (09:29)
[2021-03-02] MEDS: UMECLIDINIUM/VILANTEROL 62.5/25MCG 7 PUFFS/INHALER INH SCH (09:29)
[2021-03-02] MEDS: POTASSIUM CHLORIDE CRTAB 20 MEQ TABCR PO SCH (09:29)
[2021-03-02] MEDS: CHOLECALCIFEROL 1,000 UNITS 25 MCG TAB PO SCH (09:29)
[2021-03-02] MEDS: ASPIRIN 81 MG ECTAB PO SCH (09:30)
[2021-03-02] MEDS: TAMSULOSIN HCL 0.4 MG CAP PO PRN (09:30)
[2021-03-02] MEDS: MULTIVITAMIN TAB PO SCH (09:30)
[2021-03-02] MEDS: CALCIUM 600MG + VIT D 400 IU TAB PO SCH (09:30)
[2021-03-02] MEDS: predniSONE 20 MG TAB PO SCH (09:30)
[2021-03-02] MEDS: DOCUSATE SODIUM 100 MG CAP PO SCH (09:30)
[2021-03-02] MEDS: CeleBREX 200 MG CAP PO SCH (09:30)
--- NOTE | 2021-03-02 16:45 | Discharge Summary ---
Date of Service March 02, 2021 Admission HPI Per Admitting Provider Isma Wesley is a 85-year-old male with past medical history significant for COPD, GERD, hypertension, obstructive sleep apnea, recent pneumonia; who presents following a mechanical fall while trying to walk up steps earlier today. Was walking up the steps when he missed a step and landed on his right side. Had no loss of consciousness, dizziness, heart palpitations, chest pain, shortness of breath. Remembers the entirety of the event, had no bowel or bladder incontinence. X-ray of the pelvis demonstrating femoral neck fracture in ED. Admission Exam Per Admitting Provider Constitutional: WD/WN, vitals as above Eyes: PERRL, conjunctivae normal, anicteric sclerae Respiratory: normal respiratory effort, lungs clear to auscultation Auscultation: no crackles, no rales, no rhonchi and no wheezes Cardiovascular: Rate/Rhythm: regular rate and regular rhythm Heart Sounds: no gallop, no murmur and no cardiac rub Vessels: normal peripheral pulses Extremities: + edema Gastrointestinal (Abdomen): Inspection/Auscultation: normal bowel sounds; abdomen not distended Percussion/Palpation: abdomen soft; abdomen nontender and no guarding Musculoskeletal: Hip: no effusion, no skin erythema, no ecchymosis and no surgical incision Skin: no rashes, warm and dry Neurologic: PERRL, EOMI, accommodation nl, no face palsy, no dysarthria CN's II-XI intact bilaterally and moves all extremities Psychiatric: Orientation: alert and oriented x 3 Principal Diagnosis Hip fracture Discharge Exam Constitutional: well-appearing, no acute distress CV: regular rhythm, no murmur appreciated, extremities well-perfused Resp: CTABL, no wheezes/rales/rhonchi appreciated, no increased work of breathing MSK: right hip dressing CDI, see ortho progress note for strength testing Skin: thickened reddish skin on BL LE, pitting edema BL Neuro: AOx4, no focal neurological deficits appreciated Discharge Data Allergies Allergy/AdvReac Type Severity Reaction Status Date / Time clarithromycin Allergy Intermediate RASH Verified 01/16/21 11:09 Consultations 02/23/21 23:51 ED Decision to Admit Stat 02/24/21 02:13 Consult Orthopedic Surgery Stat Procedures Performed Operation Date: 02/24/21 11:00 Actual Procedures p Right Bipolar Hip Hemiarthroplasty Uncemented(Right) - Tony Pradhan MD Ordered Studies 02/23/21 20:16 CT cervical spine wo con Urgent CT head/brain wo con Stat 02/24/21 00:07 CT pelvis wo con Urgent 02/26/21 10:18 CT angio chest PE protocol Stat 02/26/21 16:05 US venous doppler LE BI Stat Hospital Course (1) Closed hip fracture: Isma Wesley is a 85-year-old male with past medical history significant for COPD, GERD, hypertension, obstructive sleep apnea, recent pneumonia, who was admitted to [facility] on 02/24 for right femoral neck fracture s/p mechanical fall. Right femoral neck fracture s/p hemiarthroplasty Right hemiarthroplasty performed 02/24 Plan per ortho: Weightbearing as tolerated with walker assistance Abduction pillow use x6 weeks Ice with EZ wrap Keep silverlon dressing in place Total hip precautions DVT ppx with MANAN stockings and aspirin bid Plan for discharge to rehab facility for at least one week before transitioning home with home health services Follow up at [facility] in two weeks Continue PT/OT Pain has been adequately controlled with APAP 650mg PO q6h prn Pulmonary embolism 02/26: Patient with exertional desaturation to mid-70s; CTA notable for small nonocclusive thrombus within left upper lobe branch of pulmonary artery which could represent subacute or old pulmonary embolus BL LE doppler (02/26) without evidence of DVT Per discussion with pulmonology, given LE doppler findings, reasonable to withhold anticoagulation beyond ASA and MANAN stockings Pulmonary opacities on CTA CTA (02/26) with multifocal pulmonary opacities, slightly improved, within the right upper lobe a new within inferior peripheral aspect of the right upper lobe - most likely represent infectious/inflammatory process Patient afebrile and without other signs/symptoms of infection Per radiology recommendation, follow-up in 4-6 weeks to document resolution COPD Home oxygen regimen: 2L NC at nighttime and none during the day nor with exertion Patient currently satting well on 4L NC; wean as tolerated Short steroid course - IV solumedrol discontinued, continue prednisone 40mg qd through 03/02 Transition home inhalers to hospital formulary Positive MRSA nasal swab MRSA nasal swab positive 01/16/21 Contact precautions Hypothyroidism Continue synthroid GERD Continue protonix Hypertension Continue verapamil, lasix FEN: heart healthy diet Code status: full code DVT ppx: ASA, MANAN stockings Isolation: contact Dispo: med/surg (2) Hypothyroidism (acquired): (3) GERD (gastroesophageal reflux disease): (4) Hypertension: Total Time Total Time Spent Total Time Spent (In Minutes): see attending documentation Discharge Plan Discharge Items Patient Disposition: Transfer Custodial Fac Reason For Visit: RIGHT HIP Discharge Diagnosis: Right hip fracture Activity: Resume your previous activity Non-emergency contact: Primary Care Provider Call non-emergency contact if: your symptoms worsen Follow-up/Referrals: Tyler Hawkins MD [Primary Care Provider] - Diet: Heart Healthy Addtl Attending Provider Instructions: Isma Wesley is a 85-year-old male with past medical history significant for COPD, GERD, hypertension, obstructive sleep apnea, recent pneumonia, who was admitted to [facility] on 02/24 for right femoral neck fracture s/p mechanical fall. Right femoral neck fracture s/p hemiarthroplasty Right hemiarthroplasty performed 02/24 Plan per ortho: Weightbearing as tolerated with walker assistance Abduction pillow use x6 weeks Ice with EZ wrap Keep silverlon dressing in place Total hip precautions DVT ppx with MANAN stockings and aspirin Plan for discharge to rehab facility for at least one week before transitioning home with home health services Follow up at [facility] in two weeks Continue oxycodone 5-10mg PO q4h prn PE Patient with exertional desaturation to mid-70s on 02/26 CTA (02/26) notable for small nonocclusive thrombus within left upper lobe branch of pulmonary artery which could represent subacute or old pulmonary embolus BL LE doppler (02/26) without evidence of DVT Discussed case with pulmonology - given negative LE doppler, patient does not require anticoagulation beyond prior plan of ASA and MANAN stockings Pulmonary opacities on CTA CTA (02/26) with multifocal pulmonary opacities, slightly improved, within the right upper lobe a new within inferior peripheral aspect of the right upper lobe - most likely represent infectious/inflammatory process Patient afebrile and without other signs/symptoms of infection Per radiology recommendation, follow-up in 4-6 weeks to document resolution COPD Patient is on 2L NC at nighttime and none during the day nor with exertion Desaturation noted as above, possibly 2/2 to COPD rather than PE; patient currently satting well on 3L NC; wean as tolerated Solumedrol 60mg IV given once (02/26) resulting in improvement in SOB and clearer lung sounds; converted on 02/27 to oral prednisone 40mg, continue x4 days Transition home inhalers to hospital formulary Hypothyroidism Continue synthroid GERD Continue protonix Hypertension Continue verapamil, lasix Pending Studies at Discharge: No Stand-Alone Forms: [facility] Skilled Items Patient informed of condition?: Yes DNR: No Discharge Level of Care: Skilled Communicable Disease: No Discharge Prognosis: Stable Lines: None Urinary Catheter: No Medications and DC Order Prescriptions: Continued potassium chloride 20 mEq tablet,ER particles/crystals 20 meq PO QAM Qty: 90 RF: 3 Prilosec OTC 20 mg tablet,delayed release (DR/EC) 20 mg PO QAM Qty: 90 RF: 3 verapamil 180 mg tablet extended release 180 mg PO HS Qty: 90 RF: 3 benzonatate [Tessalon Perles] 100 mg capsule 100 mg PO TID PRN (Reason: cough) Qty: 12 RF: 0 albuterol sulfate [Ventolin HFA] 90 mcg/actuation HFA aerosol inhaler 2 puff inhalation Q4H PRN (Reason: shortness of breath or wheezing) Qty: 8.5 RF: 5 furosemide 40 mg tablet 40 mg PO QAM Qty: 90 RF: 3 (DME) Oxygen Home Liters Per Minute See Rx Instructions .ROUTE .MEDSUPPLY Qty: 1 RF: 0 ipratropium-albuterol 0.5 mg-3 mg(2.5 mg base)/3 mL solution for nebulization 3 ml INH QID PRN (Reason: shortness of breath) Qty: 1080 RF: 3 levothyroxine 150 mcg tablet 150 mcg PO QAM RF: 0 calcium carbonate-vitamin D3 [Calcium 500 With D] 500 mg(1,250mg) -400 unit Tablet 1 tab PO QAM RF: 0 magnesium 250 mg Tablet 250 mg PO 3XWK RF: 0 cholecalciferol (vitamin D3) 1,000 unit (25 mcg) tablet 1,000 units PO QAM RF: 0 multivitamin Tablet 1 tab PO QAM RF: 0 Trelegy Ellipta 100-62.5-25 mcg blister with device 1 inh INH QAM RF: 0 Discharge Orders: Discharge Order (Routine); Ordered 03/02/21 Ordered By: Roque Parada Admission Data Admit Date/Time: 02/24/21 00:50 Attending Provider: Bailee Mac Admit Provider: Antonio Beasley Primary Care Provider: Tyler Hawkins Other Providers: Jimmie Baires ; Tony Pradhan ; [facility] ; [facility] [place] Other Interventions: Discharge Summary Assessment (RN) Last Done: 03/02/21 11:57 Resident Activity Tracking Resident Involvement: Resident Care Provided Care Provided: Adult Hospital Medicine
== END 2021-03-02 15:17 | DRG 521 ==
LOC: ED 19:43 → 3E 02-24 00:50 → SUATTDRO 02-24 00:50 → 3E 02-24 01:43

== ENCOUNTER 2021-03-25 16:54 | Inpatient (IN) ==
--- NOTE | 2021-03-25 18:50 | Emergency Department Note ---
Impression & Plan CHF (congestive heart failure), Dependence on nocturnal oxygen therapy, Cellulitis ED Provider Note NAME: NICOLAS YU AGE: 85 SEX: M : 1935 ARRIVES VIA: Walk-In INFORMANT: patient, ED PROVIDER(S): Roque Diaz MD Chief Complaint: Lower extremity swelling HPI: Patient does present with concern for increasing lower extremity swelling. The patient has noticed this over the last 4 to 5 days. The patient did have a weight that was taken on Thursday which was 225 pounds and the patient states befo re that he was 221. The patient had doubled up on his Lasix 40 mg taking 80 mg daily for the last 3 days without much improvement in symptoms. Patient does have chronic shortness of breath which is relatively unchanged. The patient does follow with Dr. Burt for history of COPD. The patient does have a "COPD cough" which the patient states is not atypical for him. The patient denies any known sick contacts or recent travel. Patient denies any fevers or chills. The patient has noticed increasing lower extremity swelling but without increase in urine output. Patient denies any fevers or chills. He has noticed increasing redness to the lower extremities. The patient denies any recent trauma. 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 The patient is on nighttime oxygen but does not feel as though he needs that right now. ROS: See HPI for pertinent positives and negatives. A total of 10 systems were reviewed and otherwise negative. Past medical history: See below Surgical history: See below Social history: See below Physical Exam: GENERAL: NAD, non-toxic. EYE EXAM: Normal conjunctiva. PERRL, no anisocoria and EOM's grossly intact w/o pain. NECK: Supple, no nuchal rigidity, no adenopathy, non-tender. No signs of meningismus. LUNGS: Expiratory wheezing throughout. Normal chest wall mechanics. HEART: NSR, no MRG. ABDOMEN: Abdomen soft, non-tender, normo-active bowel sounds, no masses, no rebound or guarding. BACK: No CVA TTP. SKIN: No rashes and no bruising. UPPER EXTREMITIES: Upper extremities are grossly normal. LOWER EXTREMITIES: Grossly normal, 3+ bilateral lower extremity edema with blanching erythema, no crepitus, mild discomfort. Compartments are soft. NEURO EXAM: A&O x3, cranial nerves II-XII grossly intact, normal speech, moves all 4 extremities on command w/o issue. Differential diagnoses: Reactive airway disease, pneumonia, pneumothorax, COPD, CHF, infections, cardiac ischemia, pulmonary embolism, musculoskeletal, gastrointestinal, as well as other pathologies. Course: Patient was seen and evaluated the bedside. Full history physical exam was performed. EKG interpreted by me Sinus tachycardia, rate of 120, normal intervals, left axis deviation. No obvious ST changes. Imaging Studies: See below Cardiac monitoring: An order was placed for continuous cardiac monitoring. The monitor shows a rate of 110 with sinus tachycardia rhythm. MDM: Patient was seen due to concern for increasing lower extremity edema. The patient does not complain of acute shortness of breath at this time and is oxygen dependent at nighttime. The patient does complain of some chronic cough but was unchanged from prior. The patient does not complain of acute dyspnea. Patient has been tried to double up on his Lasix for the last 3 days without i mprovement is lower extremity edema. Blood work is obtained. Patient was also started on Rocephin due to concern for cellulitis. As per the on-call hospitalist and the patient was admitted to the medicine service by Dr. Jo. Past Med/Surg History Medical History BPH (benign prostatic hyperplasia) Cellulitis of left leg Chronic obstructive pulmonary disease Diastolic CHF Fluid retention in legs GERD (gastroesophageal reflux disease) History of bronchitis History of cellulitis Hypertension Hypothyroidism Hypothyroidism (acquired) Left lumbar radiculopathy Leg length discrepancy Lumbar spinal stenosis On home oxygen therapy 02 2LPM AT HS Osteoarthritis Osteoporosis, unspecified Personal history of MRSA (methicillin resistant Staphylococcus aureus) Pulmonary nodule Sepsis Sleep apnea cpap Spinal stenosis Urethral stricture Vitamin D deficiency Surgical History History of cardiac cath 12/2019 - [place] - increased edema - no stents/angioplasty History of cholecystectomy History of colonoscopy History of herniorrhaphy left inguinal History of partial knee replacement left History of tonsillectomy History of tooth extraction Hx of surgical procedure LEFT FEMUR FX WITH REPAIR Family History Mother Cerebral atherosclerosis Father Diverticulosis Other No significant family history Denies family history of Ovarian cancer Prostate cancer Myocardial infarction Breast cancer Colorectal cancer Social History Smoking Status: Former smoker Tobacco Type: Cigarettes and Pipe packs per day: 1; Years Smoked: 40; Cigarettes Per Day: 20; Number of Years Since Quit: 14; Second Hand Exposure: No; Do You Dip or Chew Tobacco: No; Hx Alcohol Use: No Hx Substance Use: No Preferred Language: Upper Sorbian Communication Ability: Effective Visual Impairment: No Limitations Hearing Ability: Normal Supervisor Electric Required: No Beliefs That Will Affect Care: None marital status: Current Living Situation: Spouse current occupational status: retired Other Information That Helps Us Care for You: No Feels Safe at Home: Yes Safety Concerns: Feels Safe At This Time Dental Care, Regularly: No Physical Activity Frequency: 1-2 Times per Week Seatbelt Use: always Sunscreen Use: Yes Assistive Devices: None, Denture - Upper, Denture - Lower and Oxygen - Continuous Allergies Allergies Allergy/AdvReac Type Severity Reaction Status Date / Time clarithromycin Allergy Intermediate RASH Verified 03/25/21 19:25 Home Meds Home Medications Medication Instructions Recorded Confirmed magnesium 250 mg PO 3XWK 08/02/18 03/25/21 cholecalciferol (vitamin D3) 25 1,000 units PO QAM tab 05/30/19 03/25/21 mcg (1,000 unit) tablet Oxygen Home #1 ea 08/17/19 03/21/21 levothyroxine 150 mcg PO QAM 05/07/20 03/25/21 calcium carbonate-vitamin D3 1 tab PO QAM 06/22/20 03/25/21 [Calcium 500 With D] multivitamin 1 tab PO QAM tab 09/04/20 03/25/21 Trelegy Ellipta 1 inh INH QAM 01/16/21 03/25/21 acetaminophen [Tylenol Extra 1,000 mg PO DIRECTED PRN 03/25/21 03/25/21 Strength] oxycodone 2.5 mg PO Q4H PRN 03/25/21 03/25/21 psyllium husk 1 tbsp PO DAILY 03/25/21 03/25/21 Previous Rx's Medication Instructions Recorded ipratropium 0.5 mg-albuterol 3 mg 3 ml INH QID PRN #1080 ml 08/17/19 (2.5 mg base)/3 mL nebulization soln omeprazole magnesium 20 mg 20 mg PO QAM #90 tab 10/29/20 tablet,delayed release potassium chloride 20 mEq 20 meq PO QAM #90 tab 10/29/20 tablet,extended release(part/cryst) verapamil 180 mg tablet,extended 180 mg PO HS #90 tab 12/27/20 release albuterol sulfate 90 mcg/actuation 2 puff INHALATION Q4H PRN #8.5 g 02/04/21 aerosol inhaler furosemide 40 mg tablet 40 mg PO QAM #90 tab 02/13/21 benzonatate 100 mg capsule 100 mg PO TID PRN #12 cap 03/21/21 promethazine-DM 6.25 mg-15 mg/5 mL 5 ml PO Q6H PRN #473 ml 03/21/21 oral syrup Results & Data (ED) Vital Signs Vital Signs - 24 hr 03/25/21 19:37 03/25/21 19:56 03/25/21 20:00 Pulse Rate 118 H 118 H Pulse Rate from SpO2 Sensor 117 H Pulse Rhythm Regular Respiratory Rate 30 H 30 H Blood Pressure 143/88 H Blood Pressure Mean 106 Pulse Oximetry Oxygen Delivery Method Room Air Oxygen Flow Rate 03/25/21 20:10 03/25/21 20:30 03/25/21 21:00 Pulse Rate 114 H 115 H Pulse Rate from SpO2 Sensor 113 H 114 H Pulse Rhythm Respiratory Rate 31 H 20 Blood Pressure 132/86 160/81 H Blood Pressure Mean 101 107 Pulse Oximetry 93 98 97 Oxygen Delivery Method Nasal Cannula Oxygen Flow Rate 3 03/25/21 21:30 Pulse Rate Pulse Rate from SpO2 Sensor 126 H Pulse Rhythm Respiratory Rate Blood Pressure 155/117 H Blood Pressure Mean 129 Pulse Oximetry 98 Oxygen Delivery Method Oxygen Flow Rate Home Medications Current Medication List: was personally reviewed by me Laboratory Data Attestation: I reviewed the patient's lab results. Result diagrams: 03/26/21 07:04 03/26/21 07:04 Lab Results 03/25/21 03/25/21 03/25/21 Range/Units 19:44 19:44 19:44 WBC 13.47 H (4.8-10.8) K/uL RBC 4.26 L (4.7-6.1) M/uL Hgb 12.7 L (14.0-18.0) g/dL Hct 40.4 L (42-52) % MCV 94.8 (80-100) fL MCH 29.8 (25-34) pg MCHC 31.4 L (32-36) g/dL RDW Std Deviation 49.8 H (36.4-46.3) fL RDW Coeff of [place] 14.4 (11.5-14.5) % Plt Count 431 H (130-400) K/uL MPV 11.1 H (7.4-10.4) fL Immature Gran % (Auto) 0.5 % Neut % (Auto) 72.9 % Lymph % (Auto) 13.1 % [place] % (Auto) 12.4 % Eos % (Auto) 1.0 % Baso % (Auto) 0.1 % Neut # (Auto) 9.80 H (1.4-6.5) K/uL Lymph # (Auto) 1.77 (1.2-3.4) K/uL [place] # (Auto) 1.67 H (0.11-0.59) K/uL Eos # (Auto) 0.14 (0-0.5) K/uL Baso # (Auto) 0.02 (0-0.2) K/uL Immature Gran # (Auto) 0.07 H (0.00-0.02) K/uL ESR (0-20) mm/hr Sodium 140 (136-145) mmol/L Potassium (3.5-5.1) mmol/L Chloride 107 (98-107) mmol/L Carbon Dioxide 28 (21-32) mmol/L Anion Gap 5.0 (3-11) BUN 19 H (7-18) mg/dl Creatinine 1.13 (0.6-1.4) mg/dl Est Cr Clr Drug Dosing Not Reportable Est GFR ( Amer) 68.8 ml/min Est GFR (Non-Af Amer) 59.4 ml/min BUN/Creatinine Ratio 16.7 (10-20) Glucose 86 (70-99) mg/dl Lactate (0.4-2.0) mmol/L Calcium 8.5 (8.5-10.1) mg/dl Magnesium (1.8-2.4) mg/dl Total Bilirubin 0.8 (0.2-1) mg/dl AST (15-37) U/L ALT 12 (12-78) U/L Alkaline Phosphatase 69 (45-117) U/L Troponin I < 0.015 (0-0.045) ng/ml C-Reactive Protein (0-0.29) mg/dl NT-Pro-B Natriuret Pep 496 (0-1800) pg/ml Total Protein 7.8 (6.4-8.2) gm/dl Albumin 2.2 L (3.4-5.0) gm/dl Globulin 5.6 H (2.5-4.0) gm/dl Albumin/Globulin Ratio 0.4 L (0.9-2) COVID-19 Eval Order Covid19 at [facility] SARS-CoV-2 (PCR) (Negative) 03/25/21 03/25/21 03/25/21 Range/Units 19:44 21:26 21:26 WBC (4.8-10.8) K/uL RBC (4.7-6.1) M/uL Hgb (14.0-18.0) g/dL Hct (42-52) % MCV (80-100) fL MCH (25-34) pg MCHC (32-36) g/dL RDW Std Deviation (36.4-46.3) fL RDW Coeff of Jordan (11.5-14.5) % Plt Count (130-400) K/uL MPV (7.4-10.4) fL Immature Gran % (Auto) % Neut % (Auto) % Lymph % (Auto) % [place] % (Auto) % Eos % (Auto) % Baso % (Auto) % Neut # (Auto) (1.4-6.5) K/uL Lymph # (Auto) (1.2-3.4) K/uL [place] # (Auto) (0.11-0.59) K/uL Eos # (Auto) (0-0.5) K/uL Baso # (Auto) (0-0.2) K/uL Immature Gran # (Auto) (0.00-0.02) K/uL ESR (0-20) mm/hr Sodium (136-145) mmol/L Potassium 3.5 (3.5-5.1) mmol/L Chloride (98-107) mmol/L Carbon Dioxide (21-32) mmol/L Anion Gap (3-11) BUN (7-18) mg/dl Creatinine (0.6-1.4) mg/dl Est Cr Clr Drug Dosing Est GFR ( Amer) ml/min Est GFR (Non-Af Amer) ml/min BUN/Creatinine Ratio (10-20) Glucose (70-99) mg/dl Lactate 1.3 (0.4-2.0) mmol/L Calcium (8.5-10.1) mg/dl Magnesium 2.1 (1.8-2.4) mg/dl Total Bilirubin (0.2-1) mg/dl AST 13 L (15-37) U/L ALT (12-78) U/L Alkaline Phosphatase (45-117) U/L Troponin I (0-0.045) ng/ml C-Reactive Protein 13.40 H (0-0.29) mg/dl NT-Pro-B Natriuret Pep (0-1800) pg/ml Total Protein (6.4-8.2) gm/dl Albumin (3.4-5.0) gm/dl Globulin (2.5-4.0) gm/dl Albumin/Globulin Ratio (0.9-2) COVID-19 Eval Order SARS-CoV-2 (PCR) NEGATIVE (Negative) 03/25/21 Range/Units 21:26 WBC (4.8-10.8) K/uL RBC (4.7-6.1) M/uL Hgb (14.0-18.0) g/dL Hct (42-52) % MCV (80-100) fL MCH (25-34) pg MCHC (32-36) g/dL RDW Std Deviation (36.4-46.3) fL RDW Coeff of [place] (11.5-14.5) % Plt Count (130-400) K/uL MPV (7.4-10.4) fL Immature Gran % (Auto) % Neut % (Auto) % Lymph % (Auto) % [place] % (Auto) % Eos % (Auto) % Baso % (Auto) % Neut # (Auto) (1.4-6.5) K/uL Lymph # (Auto) (1.2-3.4) K/uL [place] # (Auto) (0.11-0.59) K/uL Eos # (Auto) (0-0.5) K/uL Baso # (Auto) (0-0.2) K/uL Immature Gran # (Auto) (0.00-0.02) K/uL ESR 112 H (0-20) mm/hr Sodium (136-145) mmol/L Potassium (3.5-5.1) mmol/L Chloride (98-107) mmol/L Carbon Dioxide (21-32) mmol/L Anion Gap (3-11) BUN (7-18) mg/dl Creatinine (0.6-1.4) mg/dl Est Cr Clr Drug Dosing Est GFR ( Amer) ml/min Est GFR (Non-Af Amer) ml/min BUN/Creatinine Ratio (10-20) Glucose (70-99) mg/dl Lactate (0.4-2.0) mmol/L Calcium (8.5-10.1) mg/dl Magnesium (1.8-2.4) mg/dl Total Bilirubin (0.2-1) mg/dl AST (15-37) U/L ALT (12-78) U/L Alkaline Phosphatase (45-117) U/L Troponin I (0-0.045) ng/ml C-Reactive Protein (0-0.29) mg/dl NT-Pro-B Natriuret Pep (0-1800) pg/ml Total Protein (6.4-8.2) gm/dl Albumin (3.4-5.0) gm/dl Globulin (2.5-4.0) gm/dl Albumin/Globulin Ratio (0.9-2) COVID-19 Eval Order SARS-CoV-2 (PCR) (Negative) Administered Medications Acetaminophen (Acetaminophen 325 Mg Tab) 650 mg PO Q4H PRN PRN Reason: Pain or Fever Stop: 04/24/21 23:20 Last Admin: 03/26/21 14:11 Dose: 650 mg Documented by: [id number] Fluticasone Furoate (Fluticasone Furoate 100mcg 14 Puffs/Inhaler) 1 puffs INH DAILY [facility] Stop: 04/25/21 08:59 Last Admin: 03/26/21 08:31 Dose: 1 puffs Documented by: [id number] Guaifenesin/Dextromethorphan (Guaifenesin/Dextrom Syrup 100mg/10mg 5ml Udc) 5 ml PO Q6H PRN PRN Reason: cough Last Admin: 03/26/21 08:32 Dose: 5 ml Documented by: [id number] Heparin Sodium (Porcine) (Heparin Sod 5,000 Unit/0.5 Ml Vial) 5,000 units SQ Q8 [facility] Stop: 04/24/21 23:20 Last Admin: 03/26/21 14:11 Dose: 5,000 units Documented by: [id number] Admin: 03/26/21 05:53 Dose: 5,000 units Documented by: [id number] Admin: 03/26/21 00:58 Dose: 5,000 units Documented by: [id number] Ceftriaxone Sodium 2,000 mg/ (Dextrose) 70 mls @ 140 mls/hr IV Q24H [facility]; Protocol Stop: 04/02/21 17:59 Last Admin: 03/26/21 18:15 Dose: 140 mls/hr Documented by: [id number] Vancomycin HCl 1,250 mg/ (Sodium Chloride) 275 mls @ 200 mls/hr IV Q18H [facility] Stop: 04/02/21 13:59 Last Infusion: 03/26/21 15:40 Dose: 0 mls/hr Documented by: [id number] Admin: 03/26/21 14:15 Dose: 200 mls/hr Documented by: [id number] Levothyroxine Sodium (Levothyroxine Sodium 150 Mcg Tablet) 150 mcg PO DAILYBB [facility] Stop: 04/25/21 06:29 Last Admin: 03/26/21 05:50 Dose: 150 mcg Documented by: [id number] Multivitamins/Minerals (Calcium 600mg + Vit D 400 Iu Tab) 1 tab PO QAM [facility] Stop: 04/25/21 08:59 Last Admin: 03/26/21 08:30 Dose: 1 tab Documented by: [id number] Pantoprazole Sodium (Pantoprazole 40 Mg Tab) 40 mg PO QAM [facility] Stop: 04/25/21 08:59 Last Admin: 03/26/21 08:31 Dose: 40 mg Documented by: [id number] Umeclidinium/Vilanterol (Umeclidinium/Vilanterol 62.5/25mcg 7 Puffs/Inhaler) 1 puffs INH DAILY [facility] Stop: 04/25/21 08:59 Last Admin: 03/26/21 08:31 Dose: 1 puffs Documented by: [id number] Discontinued Medications Furosemide (Furosemide 40 Mg/4 Ml Vial) 40 mg IV NOW STA Stop: 03/25/21 20:38 Last Admin: 03/25/21 20:55 Dose: 40 mg Documented by: [id number] Ceftriaxone Sodium (Rocephin) 2,000 mg in 70 mls @ 140 mls/hr IV NOW STA Stop: 03/25/21 19:29 Last Infusion: 03/25/21 20:48 Dose: 140 mls/hr Documented by: [id number] Admin: 03/25/21 19:46 Dose: 140 mls/hr Documented by: [id number] Albumin Human (Albumin 25%) 12.5 gm in 50 mls @ 50 mls/hr IV Q1H [facility] Stop: 03/25/21 22:44 Last Infusion: 03/25/21 22:46 Dose: 50 mls/hr Documented by: [id number] Admin: 03/25/21 21:43 Dose: 50 mls/hr Documented by: [id number] Infusion: 03/25/21 21:43 Dose: 50 mls/hr Documented by: [id number] Admin: 03/25/21 20:55 Dose: 50 mls/hr Documented by: [id number] Lactated Ringer's (Lr) 250 mls @ 999 mls/hr IV .Q16M ONE Stop: 03/25/21 22:11 Last Infusion: 03/26/21 00:42 Dose: 0 mls/hr Documented by: [id number] Admin: 03/26/21 00:27 Dose: 999 mls/hr Documented by: [id number] Vancomycin HCl 2,500 mg/ (Sodium Chloride) 550 mls @ 190 mls/hr IV NOW ONE Stop: 03/26/21 02:38 Last Infusion: 03/26/21 04:09 Dose: 0 mls/hr Documented by: [id number] Admin: 03/26/21 01:03 Dose: 190 mls/hr Documented by: [id number] Lactated Ringer's (Lr) 1,000 mls @ 100 mls/hr IV .Q10H ONE Stop: 03/26/21 09:20 Last Infusion: 03/26/21 10:22 Dose: 0 mls/hr Documented by: [id number] Admin: 03/26/21 00:28 Dose: 100 mls/hr Documented by: [id number] Ioversol (Optiray 320 100ml) 120 ml IV ONCE ONE Stop: 03/26/21 16:41 Last Admin: 03/26/21 16:40 Dose: 120 ml Documented by: [id number] Potassium Chloride (Potassium Chloride Crtab 20 Meq Tabcr) 40 meq PO NOW STA Stop: 03/25/21 23:22 Last Admin: 03/26/21 00:56 Dose: 40 meq Documented by: [id number] Discharge Plan Visit Data Chief Complaint: Swelling/Edema to Extremity Stated Complaint: REFERRED BY PCP, SWELLING IN LEGS ED Provider: Roque Diaz Discharge Problem: CHF (congestive heart failure), Dependence on nocturnal oxygen therapy, Cellulitis Patient Disposition: Admitted As Inpatient Discharge Instructions Interventions: ED Discharge Assessment Last Done: 03/25/21 22:23 Discharge Problem: CHF (congestive heart failure) Qualifiers: Heart failure type: unspecified Heart failure chronicity: acute on chronic Qualified Code(s): I50.9 - Heart failure, unspecified Cellulitis Qualifiers: Site of cellulitis: extremity Site of cellulitis of extremity: lower extremity Laterality: unspecified laterality Qualified Code(s): L03.119 - Cellulitis of unspecified part of limb
[2021-03-25] MEDS ORDERED: cefTRIAXone SODIUM 2,000 MG/70 ML BAG IV STA (19:00)
--- NOTE | 2021-03-25 19:41 | XRay Report ---
XR chest 1V portable CLINICAL HISTORY: Dyspnea COMPARISON STUDY: Chest CT February 26, 2021. FINDINGS: Right upper lobe airspace opacity is noted. This has decreased since chest radiograph and c hest CT of January 17, 2021. This is similar or slightly improved since chest CT of February 26, 2021. A 3.2 c m left suprahilar opacity is noted. There is cardiomegaly. No pneumothorax is present. Equivocal left pleural effusion is present. There is emphysema. Cardiomediastinal silhouette is stable. Kyphotic po sitioning is noted. IMPRESSION: 1. Interval development of a 3.2 cm left suprahilar opacity. This could reflect mild airspace diseas e or pulmonary vessels. 2. Persistent right upper lobe airspace opacity which favors a resolving infectious process however r adiographic follow up to ensure complete resolution is recommended. ACT 112: Negative or not required by law. Electronically signed by: Conner Villalpando M.D. 03/25/2021 7:40 PM
[2021-03-25 20:01] LABS: Basophils # (auto) 0.02 K/uL (0-0.2); Basophils % (auto) 0.1 %; Eosinophils # (auto) 0.14 K/uL (0-0.5); Hematocrit (blood only) 40.4 % (42-52); Hemoglobin 12.7 g/dL (14.0-18.0); Immature Granulocytes # (auto) 0.07 K/uL (0.00-0.02); Immature Granulocytes % (auto) 0.5 %; Lymphocytes # (auto) 1.77 K/uL (1.2-3.4); Lymphocytes % (auto) 13.1 %; Mean Corpuscular Hemoglobin 29.8 pg (25-34); Mean Corpuscular Hgb Conc 31.4 g/dL (32-36); Mean Corpuscular Volume 94.8 fL (80-100); Mean Platelet Volume 11.1 fL (7.4-10.4); Monocytes # (auto) 1.67 K/uL (0.11-0.59); Monocytes % (auto) 12.4 %; Neutrophils % (auto) 72.9 %; Platelet Count 431 K/uL (130-400); RDW Coefficient of Variation 14.4 % (11.5-14.5); RDW Standard Deviation 49.8 fL (36.4-46.3); Red Blood Count 4.26 M/uL (4.7-6.1); White Blood Count 13.47 K/uL (4.8-10.8)
[2021-03-25 20:28] LABS: Alanine Aminotransferase 12 U/L (12-78); Albumin Level 2.2 gm/dl (3.4-5.0); BUN Creatinine Ratio 16.7 (10-20); Blood Urea Nitrogen 19 mg/dl (7-18); Calcium 8.5 mg/dl (8.5-10.1); Carbon Dioxide 28 mmol/L (21-32); Chloride 107 mmol/L (98-107); Est GFR (African American) 68.8 ml/min; Est GFR (Non-African American) 59.4 ml/min; Glucose 86 mg/dl (70-99); Sodium 140 mmol/L (136-145)
[2021-03-25 20:34] LABS: Albumin Globulin Ratio 0.4 (0.9-2); Alkaline Phosphatase 69 U/L (45-117); Bilirubin,Total 0.8 mg/dl (0.2-1); Globulin 5.6 gm/dl (2.5-4.0); NT Pro B Type Natriuretic Pept 496 pg/ml (0-1800); Total Protein 7.8 gm/dl (6.4-8.2); Troponin I < 0.015 ng/ml (0-0.045)
[2021-03-25] MEDS ORDERED: FUROSEMIDE 40 MG/4 ML VIAL IV STA (20:37)
[2021-03-25] MEDS: ALBUMIN 25% 12.5 GM/50 ML VIAL IV SCH ×2 (20:55→21:43)
[2021-03-25 21:48] LABS: Potassium 3.5 mmol/L (3.5-5.1)
--- NOTE | 2021-03-25 21:51 | History & Physical Report ---
Date of Service March 25, 2021 Assessment & Plan (1) Cellulitis: Bilateral lower extremity cellulitis - Component of PVD with vascular congestion - beefy red erythema extending proximal - CRP-13, ESR-112, PCT, Lactate-1.3 - Rocephin 1gm daily - Vancomycin pharmacy to dose - MRSA history- repeat MRSA swab - LRINEC- 1 (2) Sepsis: SIRS- 3, qSOFA- 1 - source leg cellulitis - ABX as above - WBC 13, NLR 5:1 - LR 250 ml bolus - Continue with LR 100 ml overnight - no other evidence of organ involvement- resuscitate accordingly with UO and perfusion - warm and dry (3) S/P hip hemiarthroplasty: Stable completed rehab - continue with PT/OT while in house (4) Diastolic CHF: As above - Continue verapamil as long as hemodynamically stable - Continue diuresing for lower extremity edema as long as hemodynamically stable - received 40mg Lasix in EMD- K3.5- replete with 40meq K orally (5) Hypertension: As above (6) COPD (chronic obstructive pulmonary disease): Continue albuterol/atrovent HFA - albuterol prn - Continue trelegy or equivalent - not an acute exacerbation - Would repeat diagnostic CT scan of the chest to evaluate RUL and MING (7) PRISCILA (obstructive sleep apnea): CPAP while in house (8) Hypothyroidism (acquired): Continue synthroid (9) PVD (peripheral vascular disease): Bilateral Doppler of lower extremity (10) Pulmonary embolism: Non-occlusive left upper lobe branch PE following hip replacement - evaluated and continue with ASA was recommended (11) MRSA (methicillin resistant Staphylococcus aureus): Chronic- last tested in January - repeat nasal swab - isolation precautions - Vancomycin added as above History of Present Illness Primary Care Provider: Tyler Hawkins MD 85f YOM with past medical history of: MRSA, GERD, PVD, hypothyroidism, HFpEF, HTN, COPD, PRISCILA, Pneumonia, s/p fracture of right hip repair, subacute PE in MING pulmonary branch. Patient comes in today for 3 day history of worsening lower extremity leg swelling, progressive errythma and pain, and increase in cough. Patient is s/p right hip arthroplasty that went to [facility] for rehab and was discharged to home on . He endorses that he has not had on his MANAN hose or compression stockings for the past week, but noticed increase in swelling and erythema to the legs over the past 3 days. This is associated with felling chilled. He feels as his breathing is about the same and no change in his dyspnea, cough, or sputum production. In the EMD he received routing labs, CXR, ECG, performed. He was given 40mg IV Lasix, 1GM Ceftriaxone, and albumin. Patient will be admitted to PCU for lower extremity cellulitis treatment, intravascular repleted through PM, following of biomarkers. Blood cultures being obtained(after abx administration), CRP, Lactate, ESR and PCT. Allergies Allergy/AdvReac Type Severity Reaction Status Date / Time clarithromycin Allergy Intermediate RASH Verified 03/25/21 19:25 Home Medications Medication Instructions Recorded Confirmed Type magnesium 250 mg PO 3XWK 08/02/18 03/25/21 History cholecalciferol (vitamin D3) 25 1,000 units PO QAM tab 05/30/19 03/25/21 History mcg (1,000 unit) tablet Oxygen Home #1 ea 08/17/19 03/21/21 History ipratropium 0.5 mg-albuterol 3 mg 3 ml INH QID PRN #1080 ml 08/17/19 03/25/21 Rx (2.5 mg base)/3 mL nebulization soln levothyroxine 150 mcg PO QAM 05/07/20 03/25/21 History calcium carbonate-vitamin D3 1 tab PO QAM 06/22/20 03/25/21 History [Calcium 500 With D] multivitamin 1 tab PO QAM tab 09/04/20 03/25/21 History omeprazole magnesium 20 mg 20 mg PO QAM #90 tab 10/29/20 03/25/21 Rx tablet,delayed release potassium chloride 20 mEq 20 meq PO QAM #90 tab 10/29/20 03/25/21 Rx tablet,extended release(part/cryst) verapamil 180 mg tablet,extended 180 mg PO HS #90 tab 12/27/20 03/25/21 Rx release Trelegy Ellipta 1 inh INH QAM 01/16/21 03/25/21 History albuterol sulfate 90 mcg/actuation 2 puff INHALATION Q4H PRN #8.5 g 02/04/21 03/25/21 Rx aerosol inhaler furosemide 40 mg tablet 40 mg PO QAM #90 tab 02/13/21 03/25/21 Rx benzonatate 100 mg capsule 100 mg PO TID PRN #12 cap 03/21/21 03/25/21 Rx promethazine-DM 6.25 mg-15 mg/5 mL 5 ml PO Q6H PRN #473 ml 03/21/21 03/25/21 Rx oral syrup acetaminophen [Tylenol Extra 1,000 mg PO DIRECTED PRN 03/25/21 03/25/21 History Strength] oxycodone 2.5 mg PO Q4H PRN 03/25/21 03/25/21 History psyllium husk 1 tbsp PO DAILY 03/25/21 03/25/21 History Past Med/Surg History Medical History BPH (benign prostatic hyperplasia) Cellulitis of left leg Chronic obstructive pulmonary disease Diastolic CHF Fluid retention in legs GERD (gastroesophageal reflux disease) History of bronchitis History of cellulitis Hypertension Hypothyroidism Hypothyroidism (acquired) Left lumbar radiculopathy Leg length discrepancy Lumbar spinal stenosis On home oxygen therapy 02 2LPM AT Osteoarthritis Osteoporosis, unspecified Personal history of MRSA (methicillin resistant Staphylococcus aureus) Pulmonary nodule Sepsis Sleep apnea cpap Spinal stenosis Urethral stricture Vitamin D deficiency Surgical History History of cardiac cath 12/2019 - [place] - increased edema - no stents/angioplasty History of cholecystectomy History of colonoscopy History of herniorrhaphy left inguinal History of partial knee replacement left History of tonsillectomy History of tooth extraction Hx of surgical procedure LEFT FEMUR FX WITH REPAIR Family History Mother Cerebral atherosclerosis Father Diverticulosis Other No significant family history Denies family history of Ovarian cancer Prostate cancer Myocardial infarction Breast cancer Colorectal cancer Social History Smoking Status: Former smoker Tobacco Type: Cigarettes and Pipe packs per day: 1; Years Smoked: 40; Cigarettes Per Day: 20; Number of Years Since Quit: 14; Second Hand Exposure: No; Do You Dip or Chew Tobacco: No; Hx Alcohol Use: No Hx Substance Use: No Preferred Language: Kiswahili Communication Ability: Effective Visual Impairment: No Limitations Hearing Ability: Normal Licensing Analyst Required: No Beliefs That Will Affect Care: None marital status: Current Living Situation: Spouse current occupational status: retired Other Information That Helps Us Care for You: No Feels Safe at Home: Yes Safety Concerns: Feels Safe At This Time Dental Care, Regularly: No Physical Activity Frequency: 1-2 Times per Week Seatbelt Use: always Sunscreen Use: Yes Assistive Devices: None, Denture - Upper, Denture - Lower and Oxygen - Continuous Review of Systems Review of Systems: REVIEW OF SYSTEMS: Constitutional: (+) chills, No fever, sweats Eyes: No diplopia, no worsening or blurred vision ENT: normal hearing, no trouble swallowing Respiratory: (+) cough, sputum, NO increase in dyspnea at rest or on exertion Cardiovascular: No chest pain, tightness or palpitations Abdomen: No pain, nausea, vomiting, diarrhea or constipation Musculoskeletal: (+) chronic back pain, and right hip pain controlled, (+) calf pain, swelling Neurologic: No weakness, numbness/tingling, or balance problems Psychiatric: No anxiety or depression Skin:(+) errythema and tenderness Physical Exam Physical Exam: PHYSICAL EXAM: General: awake, alert, no apparent distress Head: Normocephalic, atraumatic ENT: PERRL, EOMI, no pharyngeal exudate, mucous membranes moist Neuro: AAO x 3, speech clear and appropriate, strength intact bilaterally 5/5, sensation intact and equal all extremities and dermatomes, no pronator drift Chest: equal rise and fall of the chest, no accessory muscle use, no heaves or thrills, Clear to auscultation, on room air, Cardiac: Regular rate and rhythm, telemetry reviewed, skin warm dry, cap refill <3 seconds, peripheral pulses +2 no JVD, no murmur, no JVD, no edema GI: NABS x 4 quadrants, soft, nontender to palpation, no rebound, guarding or tenderness, tympany on percussion : Spontaneously voiding, no pain, no CVA tenderness, condom catheter in place Extremities: Normal inspection, no peripheral edema or erythema, calfs nontender to palpation Psych: Normal mood and affect Skin: erythema extending from midfoot proximal to the knees with surrounding mottling to knees Results & Data Results & Data ([facility]) Vital Signs (Past 12 Hours) Vital Signs Temp Pulse Resp BP Pulse Ox 03/25/21 20:30 114 H 31 H 132/86 98 03/25/21 20:10 93 03/25/21 20:00 118 H 30 H 143/88 H 03/25/21 19:37 118 H 30 H 03/25/21 16:57 37.3 C 112 H 20 118/73 93 Laboratory Results Abnormal Labs 03/25/21 03/25/21 03/25/21 19:44 19:44 21:26 WBC 13.47 H RBC 4.26 L Hgb 12.7 L Hct 40.4 L MCHC 31.4 L RDW Std Deviation 49.8 H Plt Count 431 H MPV 11.1 H Neut # (Auto) 9.80 H [place] # (Auto) 1.67 H Immature Gran # (Auto) 0.07 H ESR BUN 19 H AST 13 L C-Reactive Protein 13.40 H Albumin 2.2 L Globulin 5.6 H Albumin/Globulin Ratio 0.4 L 03/25/21 21:26 WBC RBC Hgb Hct MCHC RDW Std Deviation Plt Count MPV Neut # (Auto) [place] # (Auto) Immature Gran # (Auto) ESR 112 H BUN AST C-Reactive Protein Albumin Globulin Albumin/Globulin Ratio Diagnostic Findings Chest X-Ray 03/25/21 18:59 XR chest 1V portable CLINICAL HISTORY: Dyspnea COMPARISON STUDY: Chest CT February 26, 2021. FINDINGS: Right upper lobe airspace opacity is noted. This has decreased since chest radiograph and chest CT of January 17, 2021. This is similar or slightly improved since chest CT of February 26, 2021. A 3.2 cm left suprahilar opacity is noted. There is cardiomegaly. No pneumothorax is present. Equivocal left pleural effusion is present. There is emphysema. Cardiomediastinal silhouette is stable. Kyphotic positioning is noted. IMPRESSION: 1. Interval development of a 3.2 cm left suprahilar opacity. This could reflect mild airspace disease or pulmonary vessels. 2. Persistent right upper lobe airspace opacity which favors a resolving infectious process however radiographic follow up to ensure complete resolution is recommended. ACT 112: Negative or not required by law. Electronically signed by: Conner Villalpando M.D. 03/25/2021 7:40 PM Medications Administered Albumin Human (Albumin 25%) 12.5 gm in 50 mls @ 50 mls/hr IV Q1H ROSE Stop: 03/25/21 22:44 Last Admin: 03/25/21 21:43 Dose: 50 mls/hr Documented by: [id number] Infusion: 03/25/21 21:43 Dose: 50 mls/hr Documented by: [id number] Admin: 03/25/21 20:55 Dose: 50 mls/hr Documented by: [id number] Discontinued Medications Furosemide (Furosemide 40 Mg/4 Ml Vial) 40 mg IV NOW STA Stop: 03/25/21 20:38 Last Admin: 03/25/21 20:55 Dose: 40 mg Documented by: [id number] Ceftriaxone Sodium (Rocephin) 2,000 mg in 70 mls @ 140 mls/hr IV NOW STA Stop: 03/25/21 19:29 Last Infusion: 03/25/21 20:48 Dose: 140 mls/hr Documented by: [id number] Admin: 03/25/21 19:46 Dose: 140 mls/hr Documented by: [id number] ECG Additional Comments: sinus tachycardia with PAC and left axis deviation. Code Status & VTE Plan Code Status CODE: FULL VTE: SCD, Heparin 5000units q8 subq VTE Prophylaxis Plan VTE Prophylaxis will be ordered: Yes Supervising Physician Co-Signing Physician Notes Attending addendum: I have physically seen this patient, have supervised the PER's activities, and agree with the H&P unless as otherwise noted. Assessment and Plan: Bilateral lower extremity cellulitis- Vancomycin IV and ceftriaxone IV Control lower extremity edema HFpEF/hypertension- Continue verapamil. Continue Lasix IV for diuresis of lower extremity edema Follow serial BMP and magnesium level Remaining orders and notations as noted PG Care Time/CCT Total # of Minutes Spent Total Time Spent with Patient: Total time spent is greater than 50% in coordination of care (as documented) at patient's floor/unit and/or counseling patient: Coding Level of Care Code 89672 Initial Inpt Care Lvl 3 Diagnoses Cellulitis L03.119 Laterality: unspecified laterality Site of cellulitis: extremity Site of cellulitis of extremity: lower extremity Sepsis A41.9 Sepsis acute organ dysfunction status: unspecified Sepsis type: sepsis due to unspecified organism S/P hip hemiarthroplasty Z96.649 Diastolic CHF I50.32 Heart failure chronicity: chronic Hypertension I10 Hypertension type: essential hypertension COPD (chronic obstructive pulmonary disease) 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 PRISCILA (obstructive sleep apnea) G47.33 Hypothyroidism (acquired) E03.9 PVD (peripheral vascular disease) I73.9 Pulmonary embolism I26.99 Acute cor pulmonale presence: unspecified Chronicity: unspecified Pulmonary embolism type: unspecified MRSA (methicillin resistant Staphylococcus aureus) A49.02 (1) Diastolic CHF Heart failure chronicity: chronic Qualified Code(s): I50.32 - Chronic diastolic (congestive) heart failure (2) Cellulitis Laterality: unspecified laterality Site of cellulitis: extremity Site of cellulitis of extremity: lower extremity Qualified Code(s): L03.119 - Cellulitis of unspecified part of limb (3) Sepsis Sepsis acute organ dysfunction status: unspecified Sepsis type: sepsis due to unspecified organism Qualified Code(s): A41.9 - Sepsis, unspecified organism (4) COPD (chronic obstructive pulmonary disease) COPD type: emphysema Emphysema type: unspecified Qualified Code(s): J43.9 - Emphysema, unspecified (5) Pulmonary embolism Acute cor pulmonale presence: unspecified Chronicity: unspecified Pulmonary embolism type: unspecified Qualified Code(s): I26.99 - Other pulmonary embolism without acute cor pulmonale (6) Hypertension Hypertension type: essential hypertension Qualified Code(s): I10 - Essential (primary) hypertension
[2021-03-25 21:53] LABS: C Reactive Protein 13.4 mg/dl (0-0.29); Magnesium 2.1 mg/dl (1.8-2.4)
[2021-03-25] MEDS ORDERED: LACTATED RINGER'S 250 ML IV ONE (21:56)
[2021-03-25] MEDS ORDERED: VANCOMYCIN CONSULT ACTIVE PRN ×2 (22:01→23:21)
[2021-03-25] MEDS ORDERED: LACTATED RINGER'S 1,000 ML IV ONE (23:21)
[2021-03-25] MEDS ORDERED: ONDANSETRON INJ 2 MG/ML 2 ML VIAL IV PRN (23:21)
[2021-03-25] MEDS ORDERED: ALBUTEROL HFA 8 GM INHALER INH PRN (23:21)
[2021-03-25] MEDS ORDERED: POLYETHYLENE (MIRALAX) 17 GM PACK PO PRN (23:21)
[2021-03-25] MEDS ORDERED: POTASSIUM CHLORIDE CRTAB 20 MEQ TABCR PO STA (23:21)
[2021-03-25] MEDS ORDERED: ACETAMINOPHEN HOME PACK 500 MG TABLET PO PRN (23:21)
[2021-03-25] MEDS ORDERED: ALBUT/IPRATROP 3MG/0.5MG NEB 3 ML VIAL INH PRN (23:21)
[2021-03-25] MEDS ORDERED: VANCOMYCIN HCL 2,500 MG in SODIUM CHLORIDE 0.9% 500 ML IV ONE (23:45)
[2021-03-25] MEDS ORDERED: PATIENT'S WEIGHT NEEDED SCH (23:45)
[2021-03-26] MEDS: HEPARIN SOD 5,000 UNIT/0.5 ML VIAL SQ SCH ×3 (00:58→14:11)
[2021-03-26] MEDS: LEVOTHYROXINE SODIUM 150 MCG TABLET PO SCH (05:50)
--- NOTE | 2021-03-26 07:07 | Ultrasound Report ---
BILATERAL LOWER EXTREMITY VENOUS DOPPLER HISTORY: Bilateral lower extremity edema. cellulitis evaluate for DVT COMPARISON STUDY: None. FINDINGS: There is normal compressibility, flow, and augmentation within the bilateral lower extremit y deep venous systems. IMPRESSION: No DVT within the right or left lower extremity. ACT 112: Negative or not required by law. Electronically signed by: Amandeep Monsivais M.D. 03/26/2021 7:06 AM
[2021-03-26 07:27] LABS: Basophils # (auto) 0.02 K/uL (0-0.2); Basophils % (auto) 0.2 %; Eosinophils # (auto) 0.14 K/uL (0-0.5); Eosinophils % (auto) 1.5 %; Hematocrit (blood only) 34.7 % (42-52); Immature Granulocytes # (auto) 0.04 K/uL (0.00-0.02); Immature Granulocytes % (auto) 0.4 %; Lymphocytes # (auto) 1.04 K/uL (1.2-3.4); Lymphocytes % (auto) 11.1 %; Mean Corpuscular Hgb Conc 31.7 g/dL (32-36); Mean Corpuscular Volume 91.6 fL (80-100); Mean Platelet Volume 10.7 fL (7.4-10.4); Monocytes # (auto) 1.36 K/uL (0.11-0.59); Monocytes % (auto) 14.6 %; Neutrophils # (auto) 6.73 K/uL (1.4-6.5); Neutrophils % (auto) 72.2 %; Platelet Count 353 K/uL (130-400); RDW Coefficient of Variation 14.3 % (11.5-14.5); RDW Standard Deviation 47.5 fL (36.4-46.3); Red Blood Count 3.79 M/uL (4.7-6.1); White Blood Count 9.33 K/uL (4.8-10.8)
[2021-03-26 07:55] LABS: BUN Creatinine Ratio 16.2 (10-20); Creatinine Clr Calc Pharmacy 64.9 ml/min; Est GFR (African American) 81.7 ml/min; Est GFR (Non-African American) 70.5 ml/min; Potassium 3.6 mmol/L (3.5-5.1)
[2021-03-26] MEDS: CALCIUM 600MG + VIT D 400 IU TAB PO SCH (08:30)
[2021-03-26] MEDS: FLUTICASONE FUROATE 100MCG 14 PUFFS/INHALER INH SCH (08:31)
[2021-03-26] MEDS: PANTOprazole 40 MG TAB PO SCH (08:31)
[2021-03-26] MEDS: UMECLIDINIUM/VILANTEROL 62.5/25MCG 7 PUFFS/INHALER INH SCH (08:31)
[2021-03-26] MEDS: guaiFENesin/DEXTROM SYRUP 100MG/10MG 5ML UDC PO PRN (08:32)
[2021-03-26] MEDS ORDERED: NON-FORMULARY MEDICATION (Fluticasone-Umeclidin-Vilanter [Trelegy Ellipta] 100-62.5-25 mcg INH SCH (09:00)
--- NOTE | 2021-03-26 09:26 | Pharmacy Report ---
Pharmacy Abx Dose Short Note - Date of Service March 26, 2021 - Assessment & Plan Assessment 85 year old M ordered vancomycin and ceftriaxone IV for treatment of b/l lower extremity cellulitis * history of MRSA (MRSA isolated from L leg culture December 2019), MRSA nasal swab drawn this admission was positive * recent admission in February 2021 for right femoral neck fracture s/p hemiarthroplasty with discharge to group home facility * pending Plan Vancomycin * 2500 mg IV loading dose administered 03/26 @ 0103 * Start 1250 mg (12.5 mg/kg) IV q18h * predicted AUC = 512, trough = 16.3 mcg/mL * Goal trough level ~ 15 mcg/mL, Goal AUC 400 - 600 * Trough level ordered for 03/27 @ 0730 Pharmacy will continue to follow and will adjust dose/frequency as necessary. Thank you.
[2021-03-26] MEDS ORDERED: VANCOMYCIN HCL 1,250 MG in SODIUM CHLORIDE 0.9% 250 ML IV SCH (14:00)
[2021-03-26] MEDS: ACETAMINOPHEN 325 MG TAB PO PRN ×2 (14:11→21:14)
[2021-03-26] MEDS: VANCOMYCIN HCL 1,250 MG in SODIUM CHLORIDE 0.9% 250 ML IV SCH (14:15)
[2021-03-26] MEDS ORDERED: OPTIRAY 320 100ml IV ONE (16:40)
--- NOTE | 2021-03-26 17:16 | CT Scan Report ---
CT ANGIOGRAPHY OF THE CHEST, PULMONARY EMBOLUS PROTOCOL CLINICAL HISTORY: tachy; PE/infiltrates on CT 02/26 COMPARISON STUDY: Chest CT February 26, 2021. Chest radiograph March 25, 2021. TECHNIQUE: Following IV administration of 120 mL of Optiray, helical axial images of the chest were o btained utilizing the pulmonary embolus protocol. Maximal intensity projections and sagittal and cor onal reformats were viewed on an independent 3D workstation. IV contrast was administered without co mplication. Automated exposure control was utilized for the study. A dose lowering technique was ut ilized adhering to the principles of ALARA. CT DOSE: 519.24 mGycm FINDINGS: No central pulmonary embolus is present. A linear filling defect within a segmental branch to the anterior segment of the left upper lobe on axial image 134 of [address] of February 26, 2021. No additional pulmonary emboli are identified. Mild cardiomegaly is noted. There is no pericar dial effusion. There are small bilateral pleural effusions. These have slightly decreased. No pneumot horax is present. Lungs are suboptimally assessed due to respiratory motion. Underlying emphysema is again noted. Secretions within the airways are noted with diffuse bronchial wall thickening, most neno dent within the lower lobes. Left upper lobe airspace opacity has developed since CT of February 26, 2021 . Persistent right upper lobe airspace opacity is noted. This has decreased since CT of January 17, 2021 a nd is similar or slightly increased since prior chest CT of February 26, 2021. Bilateral lower lobe and l ingular opacities have mildly increased. Multiple mildly enlarged mediastinal and is of slightly incr eased in size. IMPRESSION: 1. No central pulmonary embolus. Interval development of a small linear filling defect within a segme ntal branch of the left upper lobe since CT of February 26, 2021. This represents a small pulmonary embol us, likely subacute. 2. Upper lobe airspace opacity, new since chest CT of February 26, 2021. Persistent right upper lobe airs pace opacity which also favors an infectious process. Increase in bilateral lower lobe and lingular o pacities which are also likely infectious. A follow up chest CT in 3 months to ensure resolution is r ecommended. 3. Diffuse bronchial wall thickening with multifocal secretions, most pronounced within the bilateral lower lobes and lingula. 4. Emphysema. 5. Small bilateral pleural effusions. 6. Mildly enlarged mediastinal lymph nodes which are likely reactive. These can be assessed on follow -up chest CT. ACT 112: Negative or not required by law. Electronically signed by: Conner Villalpando M.D. 03/26/2021 5:15 PM
[2021-03-26] MEDS: cefTRIAXone SODIUM 2,000 MG in DEXTROSE 5% 50 ML IV SCH (18:15)
--- NOTE | 2021-03-26 18:23 | Electrocardiogram Report ---
Test Reason : Blood Pressure : / mmHG Vent. Rate : 120 BPM Atrial Rate : 120 BPM P-R Int : 136 ms QRS Dur : 072 ms QT Int : 330 ms P-R-T Axes : 095 -31 052 degrees QTc Int : 466 ms Poor data quality, interpretation may be adversely affected Sinus tachycardia with Premature supraventricular complexes Left axis deviation Poor R wave progression, consider anterior IA vs. lead placement vs. LVH Abnormal ECG When compared with ECG of 23-FEB-2021 22:21, Premature supraventricular complexes are now Present Confirmed by Stas Patton ([id number]) on 03/26/2021 6:23:44 PM Referred By: Carmella Davalos Confirmed By:Yefri Patton
[2021-03-26] MEDS ORDERED: Heparin IV Adult Wt-Based Standard *NO* Bolus Protocol ONE (19:35)
[2021-03-26] MEDS: VERAPAMIL HCL 180 MG TABCR PO SCH (21:14)
[2021-03-26 21:50] LABS: Partial Thromboplastin Ratio 1.2; Partial Thromboplastin Time 30.6 Seconds (21.0-31.0)
[2021-03-26] MEDS: HEPARIN SODIUM/DEXTROSE 25,000 UNITS/500 ML BAG IV SCH (22:06)
[2021-03-26] MEDS: DOXYCYCLINE HYCLATE 100 MG in DEXTROSE 5% 100 ML IV SCH (23:34)
--- NOTE | 2021-03-27 01:12 | Hospitalist Progress Note ---
Date of Service March 26, 2021 Assessment & Plan (1) Cellulitis: b/l legs. cont rocephin. cont vanco for MRSA Coverage ([employer] swab indeed is positive for MRSA). elevate the legs. diurese as tolerated. (of note - doxy being added is for atypical coverage of lungs). (2) Pulmonary embolism: Non-occlusive left upper lobe branch PE following hip replacement was found on 02/26/21. Not treated with anticoagulation at that time. Tachycardia may be reflective of new, additional PEs. Certainly at risk of more VTE given his immobility, etc. THUS - CTA chest obtained -- another MING PE was found, felt to be separate/new from the other PE seen on 02/26/21. Will place on heparin infusion, no bolus, and ask for Dr Burt's opinion tomorrow re: the solitary PE. (3) Sepsis: 2nd cellulitis b/l legs. can't rule out pneumonia. follow cultures. (4) S/P hip hemiarthroplasty: right, s/p fall. 02/24/21 by [facility]. from ortho standpoint doing ok with hip and completed a course of rehab at [facility] recently. (5) Diastolic CHF: clinically he has significant LE edema - this is chronic - and doesn't necessarily reflect decompensation of his diastolic CHF. consider IV lasix tomorrow, however, for removal of edema from legs. edema control will hasten his cellulitis. (6) Hypertension: controlled (7) COPD (chronic obstructive pulmonary disease): cont nebs/inhalers I believe that the wheezes & rales heard in both lungs today are due to the pneumonia in b/l upper lobes as seen on CT chest this is in a background of heavy tobacco use and COPD (8) PRISCILA (obstructive sleep apnea): CPAP (9) Hypothyroidism (acquired): Continue synthroid TSH wnl 01/2021 (10) Abnormal chest CT: in February [address] showed a RUL infiltrate. Given his lung sounds on exam, the February CT, and his cxr findings I obtained a repeat CTA chest today. There are now b/l upper lobe infiltrates. There is also a new PE in the MING. Cause of infiltrates?? sed rate >100, CRP also high. inflammatory ([employer]PER[employer])? bacterial? viral? other? rocephin/vanco are for cellulitis but will also cover the lungs for pneumonia. doxycycline added for atypical coverage for lungs. will ask Dr Burt from pulmonary to see tomorrow to comment on CT chest, labs, etc. (11) Lymphedema: chronic, severe, bilateral venogram of legs during heart cath in 2019 showed normal venous flow, etc. no DVT either leg this admission cont diuretics will need to see lymphedema specialist post-d/c for compression, etc. (12) DVT prophylaxis: stop SC heparin placing on IV heparin as above updated at bedside today Admission and Anticipated Discharge Date Admission Date: March 25, 2021 Subjective patient states he has had LE edema for 20-30 years. reports he had a normal venogram of legs in the last year (no venous insufficiency?). both he and ( at bedside during the visit) report legs look similar in comparison to yesterday (significant b/l erythema). although patient has cough and dyspnea he states both are at baseline he usually only uses NC O2 at night-time after getting home from [facility] (was rehabbing there s/p ORIF of right hip Fx) he was quite immobile per eating well per the nursing flow sheets tele - sinus tach with ectopy; no flutter or fib Review of Systems Constitutional: + fatigue; no fever, no chills and no anorexia Respiratory: + cough, + dyspnea and + wheezing Cardiovascular: + edema; no chest pain Gastrointestinal: no abdominal pain Genitourinary: no difficulty urinating Physical Exam Constitutional: no acute distress and no altered mental status sitting in chair comfortably ENMT: external ear and nose normal, oropharynx normal Respiratory: no respiratory distress Auscultation: + crackles (extensive b/l ), + rhonchi (with course BS b/l ) and + wheezes (b/l ) Cardiovascular: Rate/Rhythm: + tachycardic and + irregularly irregular Heart Sounds: normal S1 and normal S2; no murmur Vessels: posterior tibial pulses present and dorsalis pedis pulses present; no JVD Extremities: + edema (3+ edema b/l, all the way to the knees); + abnormal capillary refill (mottling noted of b/l distal thighs and knee regions ) Gastrointestinal (Abdomen): normal bowel sounds, soft, nontender, no hepato splenomegaly Musculoskeletal: right hip incision well-healed Skin: deep, warm erythema of both shins extending from just above the ankles proximally to the tibial plateau region b/l; no skin openings/ulcers; background of venous stasis changes Psychiatric: A+Ox3, euthymic affect Results & Data Results & Data ([facility]) Vital Signs (Past 12 Hours) Vital Signs Temp Pulse Pulse Resp BP Pulse Ox 03/26/21 23:32 93 H 97 03/26/21 23:00 36.4 C L 93 H 18 115/82 98 03/26/21 19:27 37.0 C 106 H 32 H 113/90 96 03/26/21 15:19 36.5 C 110 H 20 109/70 95 03/26/21 14:58 115 H Laboratory Results Laboratory Results - last 24 hr 03/25/21 03/26/21 03/26/21 23:20 07:04 07:04 WBC 9.33 RBC 3.79 L Hgb 11.0 L Hct 34.7 L MCV 91.6 MCH 29.0 MCHC 31.7 L RDW Std Deviation 47.5 H RDW Coeff of [place] 14.3 Plt Count 353 MPV 10.7 H Immature Gran % (Auto) 0.4 Neut % (Auto) 72.2 Lymph % (Auto) 11.1 [place] % (Auto) 14.6 Eos % (Auto) 1.5 Baso % (Auto) 0.2 Neut # (Auto) 6.73 H Lymph # (Auto) 1.04 L [place] # (Auto) 1.36 H Eos # (Auto) 0.14 Baso # (Auto) 0.02 Immature Gran # (Auto) 0.04 H APTT PTT Ratio Sodium 140 Potassium 3.6 Chloride 107 Carbon Dioxide 27 Anion Gap 6.0 BUN 16 Creatinine 0.98 Est Cr Clr Drug Dosing 64.9 Est GFR ( Amer) 81.7 Est GFR (Non-Af Amer) 70.5 BUN/Creatinine Ratio 16.2 Glucose 82 Calcium 8.0 L Magnesium 2.0 Procalcitonin Nasal Screen MRSA (PCR) Positive A 03/26/21 03/26/21 07:04 21:29 WBC RBC Hgb Hct MCV MCH MCHC RDW Std Deviation RDW Coeff of [place] Plt Count MPV Immature Gran % (Auto) Neut % (Auto) Lymph % (Auto) [place] % (Auto) Eos % (Auto) Baso % (Auto) Neut # (Auto) Lymph # (Auto) [place] # (Auto) Eos # (Auto) Baso # (Auto) Immature Gran # (Auto) APTT 30.6 PTT Ratio 1.2 Sodium Potassium Chloride Carbon Dioxide Anion Gap BUN Creatinine Est Cr Clr Drug Dosing Est GFR ( Amer) Est GFR (Non-Af Amer) BUN/Creatinine Ratio Glucose Calcium Magnesium Procalcitonin 0.15 Nasal Screen MRSA (PCR) PG Care Time/CCT Total # of Minutes Spent Total Time Spent with Patient: Total time spent is greater than 50% in coordination of care (as documented) at patient's floor/unit and/or counseling patient: Coding Level of Care Code 28881 Subseq Hosp Care Lvl 3 Diagnoses Cellulitis L03.119 Site of cellulitis: extremity Site of cellulitis of extremity: lower extremity Laterality: unspecified laterality Pulmonary embolism I26.99 Pulmonary embolism type: unspecified Chronicity: unspecified Acute cor pulmonale presence: unspecified Sepsis A41.9 Sepsis type: sepsis due to unspecified organism Sepsis acute organ dysfunction status: unspecified S/P hip hemiarthroplasty Z96.649 Diastolic CHF I50.32 Heart failure chronicity: chronic Hypertension I10 Hypertension type: essential hypertension COPD (chronic obstructive pulmonary disease) 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 PRISCILA (obstructive sleep apnea) G47.33 Hypothyroidism (acquired) E03.[address] R93.89 Lymphedema I89.0 DVT prophylaxis Z29.9 (1) Cellulitis Site of cellulitis: extremity Site of cellulitis of extremity: lower extremity Laterality: unspecified laterality Qualified Code(s): L03.119 - Cellulitis of unspecified part of limb (2) Sepsis Sepsis type: sepsis due to unspecified organism Sepsis acute organ dysfunction status: unspecified Qualified Code(s): A41.9 - Sepsis, unspecified organism (3) Diastolic CHF Heart failure chronicity: chronic Qualified Code(s): I50.32 - Chronic diastolic (congestive) heart failure (4) Hypertension Hypertension type: essential hypertension Qualified Code(s): I10 - Essential (primary) hypertension (5) COPD (chronic obstructive pulmonary disease) COPD type: emphysema Emphysema type: unspecified Qualified Code(s): J43.9 - Emphysema, unspecified (6) Pulmonary embolism Pulmonary embolism type: unspecified Chronicity: unspecified Acute cor pulmonale presence: unspecified Qualified Code(s): I26.99 - Other pulmonary embolism without acute cor pulmonale
[2021-03-27 04:26] LABS: Basophils # (auto) 0.02 K/uL (0-0.2); Basophils % (auto) 0.2 %; Eosinophils # (auto) 0.31 K/uL (0-0.5); Eosinophils % (auto) 3.5 %; Hematocrit (blood only) 33.9 % (42-52); Hemoglobin 10.8 g/dL (14.0-18.0); Immature Granulocytes % (auto) 1.1 %; Lymphocytes # (auto) 1.08 K/uL (1.2-3.4); Lymphocytes % (auto) 12.2 %; Mean Corpuscular Hgb Conc 31.9 g/dL (32-36); Mean Corpuscular Volume 90.9 fL (80-100); Mean Platelet Volume 10.3 fL (7.4-10.4); Monocytes # (auto) 1.33 K/uL (0.11-0.59); Platelet Count 324 K/uL (130-400); RDW Coefficient of Variation 14.1 % (11.5-14.5); RDW Standard Deviation 46.9 fL (36.4-46.3); Red Blood Count 3.73 M/uL (4.7-6.1); White Blood Count 8.84 K/uL (4.8-10.8)
[2021-03-27 04:44] LABS: BUN Creatinine Ratio 18.8 (10-20); Calcium 7.9 mg/dl (8.5-10.1); Creatinine Clr Calc Pharmacy 71.5 ml/min; Est GFR (Non-African American) 78.5 ml/min; Magnesium 1.9 mg/dl (1.8-2.4); Potassium 3.5 mmol/L (3.5-5.1)
[2021-03-27 05:00] LABS: Partial Thromboplastin Ratio 2.1
[2021-03-27] MEDS: LEVOTHYROXINE SODIUM 150 MCG TABLET PO SCH (05:52)
[2021-03-27] MEDS ORDERED: VANCOMYCIN TROUGH ONE (07:30)
[2021-03-27] MEDS: ACETAMINOPHEN 325 MG TAB PO PRN (08:33)
[2021-03-27] MEDS: UMECLIDINIUM/VILANTEROL 62.5/25MCG 7 PUFFS/INHALER INH SCH (08:33)
[2021-03-27] MEDS: FLUTICASONE FUROATE 100MCG 14 PUFFS/INHALER INH SCH (08:33)
[2021-03-27] MEDS: PANTOprazole 40 MG TAB PO SCH (08:34)
[2021-03-27] MEDS: guaiFENesin/DEXTROM SYRUP 100MG/10MG 5ML UDC PO PRN ×2 (08:34→20:49)
[2021-03-27] MEDS: CALCIUM 600MG + VIT D 400 IU TAB PO SCH (08:34)
[2021-03-27] MEDS: VANCOMYCIN HCL 1,250 MG in SODIUM CHLORIDE 0.9% 250 ML IV SCH (08:35)
--- NOTE | 2021-03-27 08:42 | Pulmonary Consultation ---
Date of Consultation March 27, 2021 Assessment & Plan (1) Abnormal chest CT: Impression: 85-year-old male with obstructive lung disease and sleep disordered breathing/overlap syndrome admitted with lower extremity swelling and erythema, possibly due to cellulitis. He has evidence of volume overload on his exam. He has a history of heart failure with preserved ejection fraction. He was noted to have bilateral upper lobe patchy opacities as well as some mediastinal adenopathy and some narrowing of his bronchus intermedius. The differential of the upper lobe opacities would include etiologies such as atypical pulmonary edema, pulmonary hemorrhage, diffuse parenchymal lung disease, interstitial lung disease. Aspiration would be less likely given the location of the infiltrates. Recommendations: 1. Abnormal CT scan: I did discussion with the patient. Options at this point time would be to aggressively treat him with antibiotics diuretics and steroids and follow him clinically. Alternatively, we could pursue bronchoscopy with BAL and endobronchial ultrasound with transbronchial needle aspiration of the mediastinal nodes. Given the patient's advanced age, he would like to pursue a conservative approach which I think is reasonable. We will hold off on bronchoscopy for now. Patient is already on with aggressive antibiotics and with a normal procalcitonin normal white blood cell count and lack of fever, I do not think additional antibiotics or broadening antibiotics are required to cover pulmonary source. Management of the patient's cellulitis is deferred to the primary admitting service 2. We will check echocardiogram as well as BNP level. Initiate diuretics with Lasix 40 mg IV daily. Follow kidney function and electrolytes. 3. Start prednisone 40 mg a day. Anticipate 5-day course. Continue inhalers, currently on Flovent as well as Anoro. Initiate mucus and hypertonic saline with flutter valve for pulmonary toilet 4. Continue supplemental oxygen titrated to keep oxygen saturations at or above 88%. 5. Continue CPAP at night. 6. Patient will require a follow-up CT scan in approximately 6 to 8 weeks. If these abnormalities persist would have a low threshold for proceeding with PET scanning and consideration for invasive procedures such as bronchoscopy at that point time. 7. Subsegmental PE: Agree with anticoagulation. Would recommend 3 months of anticoagulation given the subsegmental location of the filling defect. We will follow up on echocardiogram and BNP level. The above recommendations and plan were discussed with the patient in detail at the time of evaluation. He expressed understanding and is in agreement with the plan. (2) CHF (congestive heart failure): Heart failure chronicity: acute on chronic Heart failure type: unspecified Qualified Code(s): I50.9 - Heart failure, unspecified (3) Pulmonary embolism: Pulmonary embolism type: unspecified Chronicity: unspecified Acute cor pulmonale presence: unspecified Qualified Code(s): I26.99 - Other pulmonary embolism without acute cor pulmonale History of Present Illness Attending Physician: Uday Kong History of Present Illness Asked by hospitalist to evaluate this patient with known obstructive lung disease and recent diagnosis of PE with abnormal chest CT. History is obtained from review electronic medical record as well as discussion with patient. This 85-year-old male has a history of moderate obstructive lung disease and overlap syndrome with mild sleep disordered breathing. He is on CPAP at home. He uses oxygen conjunction with his CPAP. I last saw him about 6 months ago. He was doing relatively well at that point time his PFTs have been stable. Unfortunately since I saw him last he suffered a fall with an associated hip fracture which required surgical repair. He was [place] to [place] [facility]. While there he was not using his CPAP only supplemental oxygen. He was diagnosed with pneumonia and a small PE about a month ago. He was elected to not be treated for the PE. He presented to the emergency room 2 days ago with progressive lower extremity edema with erythema and pain and coughing. He was diagnosed with lower extremity cellulitis and placed on Rocephin doxycycline and vancomycin. His ESR and CRP were elevated. He continued to have an oxygen requirement remained tachycardic so repeat CT angiogram was performed which showed a persistent filling defect and an upper lobe subsegmental pulmonary artery. He has been initiated on heparin. He denies syncope presyncope or palpitations. He has not been diuresed. The CT scan also demonstrated persistent upper lobe infiltrates on the right with new upper lobe infiltrates on the left as well as some nonspecific mediastinal adenopathy. The patient reports that his breathing is actually doing pretty good. He is coughing a small amount of clear to green phlegm in the morning. He does report some wheezing. Allergies Allergy/AdvReac Type Severity Reaction Status Date / Time clarithromycin Allergy Intermediate RASH Verified 03/25/21 19:25 Home Medications Medication Instructions Recorded Confirmed Type magnesium 250 mg tablet 250 mg PO [id number] 08/02/18 03/25/21 History cholecalciferol (vitamin D3) 25 1,000 units PO QAM tab 05/30/19 03/25/21 History mcg (1,000 unit) tablet Oxygen Home #1 ea 08/17/19 03/21/21 History ipratropium 0.5 mg-albuterol 3 mg 3 ml INH QID PRN #1080 ml 08/17/19 03/25/21 Rx (2.5 mg base)/3 mL nebulization soln levothyroxine 150 mcg tablet 150 mcg PO QAM 05/07/20 03/25/21 History calcium carbonate 500 mg (1,250 1 tab PO QAM 06/22/20 03/25/21 History mg)-vitamin D3 400 unit tablet (Calcium 500 With D) multivitamin 1 tab PO QAM tab 09/04/20 03/25/21 History omeprazole magnesium 20 mg 20 mg PO QAM #90 tab 10/29/20 03/25/21 Rx tablet,delayed release (Prilosec OTC) potassium chloride 20 mEq 20 meq PO QAM #90 tab 10/29/20 03/25/21 Rx tablet,extended release(part/cryst) verapamil 180 mg tablet,extended 180 mg PO HS #90 tab 12/27/20 03/25/21 Rx release fluticasone fur. 100 mcg-umeclid 1 inh INH QAM 01/16/21 03/25/21 History 62.5 mcg-vilant 25 mcg inhalat.powder (Trelegy Ellipta) albuterol sulfate 90 mcg/actuation 2 puff INHALATION Q4H PRN #8.5 g 02/04/21 03/25/21 Rx aerosol inhaler (Ventolin HFA) furosemide 40 mg tablet 40 mg PO QAM #90 tab 02/13/21 03/25/21 Rx benzonatate 100 mg capsule 100 mg PO TID PRN #12 cap 03/21/21 03/25/21 Rx (Tessalon Perles) promethazine-DM 6.25 mg-15 mg/5 mL 5 ml PO Q6H PRN #473 ml 03/21/21 03/25/21 Rx oral syrup acetaminophen 500 mg tablet 1,000 mg PO DIRECTED PRN 03/25/21 03/25/21 History (Tylenol Extra Strength) oxycodone 5 mg tablet 2.5 mg PO Q4H PRN 03/25/21 03/25/21 History psyllium husk 3 gram/5.4 gram oral 1 tbsp PO DAILY 03/25/21 03/25/21 History powder Patient History Medical History BPH (benign prostatic hyperplasia) Cellulitis of left leg Chronic obstructive pulmonary disease Diastolic CHF Fluid retention in legs GERD (gastroesophageal reflux disease) History of bronchitis History of cellulitis Hypertension Hypothyroidism Hypothyroidism (acquired) Left lumbar radiculopathy Leg length discrepancy Lumbar spinal stenosis On home oxygen therapy 02 2LPM AT Osteoarthritis Osteoporosis, unspecified Personal history of MRSA (methicillin resistant Staphylococcus aureus) Pulmonary nodule Sepsis Sleep apnea cpap Spinal stenosis Urethral stricture Vitamin D deficiency Surgical History History of cardiac cath 12/2019 - [place] - increased edema - no stents/angioplasty History of cholecystectomy History of colonoscopy History of herniorrhaphy left inguinal History of partial knee replacement left History of tonsillectomy History of tooth extraction Hx of surgical procedure LEFT FEMUR FX WITH REPAIR Family History Mother Cerebral atherosclerosis Father Diverticulosis Other No significant family history Denies family history of Ovarian cancer Prostate cancer Myocardial infarction Breast cancer Colorectal cancer Social History Smoking Status: Former smoker Tobacco Type: Cigarettes and Pipe packs per day: 1; Years Smoked: 40; Cigarettes Per Day: 20; Number of Years Since Quit: 14; Second Hand Exposure: No; Do You Dip or Chew Tobacco: No; Hx Alcohol Use: No Hx Substance Use: No Preferred Language: Malay Communication Ability: Effective Visual Impairment: No Limitations Hearing Ability: Normal 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 No additions or deletions Physical Exam Constitutional: WD/WN, vitals as above Neck: trachea midline, no thyromegaly Respiratory: normal respiratory effort, lungs clear to auscultation no respiratory distress and no labored breathing Auscultation: + wheezes Cardiovascular: RRR, no murmur, no edema Gastrointestinal (Abdomen): normal bowel sounds, soft, nontender, no hepatosplenomegaly Musculoskeletal: Extremities: extremities normal to inspection Skin: no rashes, warm and dry Neurologic: Nonfocal exam Lymphatic: no cervical lymphadenopathy Results & Data Results & Data ([facility]) Vital Signs (Past 12 Hours) Vital Signs Temp Pulse Pulse Resp BP Pulse Ox 03/27/21 08:27 36.9 C 107 H 27 H 133/69 93 03/27/21 07:44 91 H 03/27/21 04:00 37.1 C 96 H 18 123/76 99 03/26/21 23:32 93 H 97 03/26/21 23:00 36.4 C L 93 H 18 115/82 98 Laboratory Results 03/27/21 04:17 03/27/21 04:[address] scan independently reviewed. Small linear filling defect consistent with subacute PE identified. Some nonspecific mediastinal and hilar adenopathy. Airway thickening throughout with specific focal area of narrowing within the bronchus intermedius. Patchy parenchymal airspace opacities in the bilateral u pper lobes slightly progressed compared to prior CT scan from about a month ago. PG Care Time/CCT Total # of Minutes Spent Total Time Spent with Patient: Total time spent is greater than 50% in coordin ation of care (as documented) at patient's floor/unit and/or counseling patient: Coding Level of Care Code 31640 Initial Inpt Care Lvl [address] R93.89 CHF (congestive heart failure) I50.9 Heart failure chronicity: acute on chronic Heart failure type: unspecified Pulmonary embolism I26.99 Pulmonary embolism type: unspecified Chronicity: unspecified Acute cor pulmonale presence: unspecified Time Spent (min) 45
[2021-03-27] MEDS ORDERED: FUROSEMIDE 40 MG in SYRINGE 0 ML IV SCH (09:00)
[2021-03-27] MEDS: guaiFENesin 600 MG TABCR PO SCH ×2 (09:36→20:42)
[2021-03-27] MEDS: predniSONE 20 MG TAB PO SCH ×2 (09:36→20:41)
--- NOTE | 2021-03-27 10:18 | Pharmacy Report ---
Pharmacy Abx Dose Short Note - Date of Service March 27, 2021 - Assessment & Plan Assessment 85 year old M ordered vancomycin and ceftriaxone IV for treatment of b/l lower extremity cellulitis, possible pneumonia * history of MRSA (MRSA isolated from L leg culture December 2019), MRSA nasal swab drawn this admission was positive * recent admission in February 2021 for right femoral neck fracture s/p hemiarthroplasty with discharge to custodial facility * doxycycline added on 03/26 for coverage of atypical pneumonia Plan Vancomycin * Trough level drawn this AM resulted at 15 mcg/mL. Calculated AUC = 457. * Goal AUC = 400 - 600 * Continue dose of 1250 mg IV every 18 hours * Will repeat trough will continued therapy Pharmacy will continue to follow and will adjust dose/frequency as necessary. Thank you.
[2021-03-27] MEDS: DOXYCYCLINE HYCLATE 100 MG in DEXTROSE 5% 100 ML IV SCH ×2 (11:34→22:58)
[2021-03-27] MEDS: HEPARIN SODIUM/DEXTROSE 25,000 UNITS/500 ML BAG IV SCH (16:19)
[2021-03-27] MEDS: cefTRIAXone SODIUM 2,000 MG in DEXTROSE 5% 50 ML IV SCH (17:11)
[2021-03-27] MEDS: SODIUM CHLOR 7% 4 ML NEB NEB SCH (19:20)
[2021-03-27] MEDS: VERAPAMIL HCL 180 MG TABCR PO SCH (20:41)
--- NOTE | 2021-03-27 23:03 | Hospitalist Progress Note ---
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 (5) Diastolic CHF: Plan: acute/chronic (6) Hypertension: Plan: controlled (7) COPD (chronic obstructive pulmonary disease): Plan: with exacerbation improved today (8) PRISCILA (obstructive sleep apnea): Plan: on CPAP (9) Hypothyroidism (acquired): Plan: TSH wnl 01/2021 (10) Abnormal chest CT: Plan: b/l upper lobe infiltrates, with some new infiltration since 02/26/[address] Burt's consultation (11) Lymphedema: Plan: chronic for several decades once cellulitis is improved - compression no DVT on duplex studies (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 autoimmune disease? (13) DVT prophylaxis: Plan: 1. cellulitis - cont rocephin, cont vanco. 2. ?bacterial pneumonia b/l upper lobes - cont rocephin, doxy (atypical coverage), vanco (pt is MRSA+). 3. cont PO prednisone for COPD. 4. mouth soreness - magic mouthwash qid swish/spit. 5. PT, OT. 6. cont diuresis. 7. cont heparin for PE; check roman of novel agents tomorrow and switch to such if cost is not an issue. Plan - 3 months of Rx. updated at bedside Admission and Anticipated Discharge Date Admission Date: March 25, 2021 Subjective patient feeling better today thinks legs are less red today no significant pain coughing, mild dyspnea - but thinks it is close to "normal" for him remains on NC O2 tolerating heparin - no bleeding from any location eating very well - 100% of meals tele overnight wnl at bedside questions answered Review of Systems Constitutional: no fever, no chills and no anorexia Ear, Nose, Mouth, Throat: sore "gums" Respiratory: + cough, + dyspnea and + wheezing; no hemoptysis Cardiovascular: + edema; no chest pain Gastrointestinal: no abdominal pain, no nausea and no vomiting Integumentary: + erythema Physical Exam Constitutional: no acute distress and no altered mental status ENMT: Mouth: + oral mucosal abnormality (no obvious thrush but mucosa minimally irritated) Respiratory: no respiratory distress Auscultation: + crackles (bases - improved today ), + rhonchi (much improved today) and + wheezes (b/l - improved today) Cardiovascular: Rate/Rhythm: + tachycardic and + irregularly irregular Heart Sounds: normal S1 and normal S2; no murmur Vessels: posterior tibial pulses present and dorsalis pedis pulses present; no JVD Extremities: + edema (3+ edema b/l, all the way to the knees) Gastrointestinal (Abdomen): normal bowel sounds, soft, nontender, no hepatosplenomegaly Skin: cellulitis b/l shins -- less intensely red today b/l; receding at superior most portions of the cellulitis. ??livedo reticularis b/l distal thighs?? -- mottled appearing skin b/l -- symmetric Psychiatric: A+Ox3, euthymic affect Results & Data Results & Data ([facility]) Vital Signs (Past 12 Hours) Vital Signs Temp Pulse Pulse Resp BP Pulse Ox 03/27/21 19:38 36.8 C 101 H 18 125/81 93 03/27/21 18:56 102 H 18 96 03/27/21 15:56 92 H 03/27/21 15:36 36.3 C L 93 H 27 H 136/76 96 03/27/21 11:40 36.3 C L 97 H 18 152/95 H 96 Laboratory Results Laboratory Results - last 24 hr 03/27/21 03/27/21 03/27/21 04:17 04:17 04:17 WBC 8.84 RBC 3.73 L Hgb 10.8 L Hct 33.9 L MCV 90.9 MCH 29.0 MCHC 31.9 L RDW Std Deviation 46.9 H RDW Coeff of [place] 14.1 Plt Count 324 MPV 10.3 Immature Gran % (Auto) 1.1 Neut % (Auto) 68.0 Lymph % (Auto) 12.2 [place] % (Auto) 15.0 Eos % (Auto) 3.5 Baso % (Auto) 0.2 Neut # (Auto) 6.00 Lymph # (Auto) 1.08 L [place] # (Auto) 1.33 H Eos # (Auto) 0.31 Baso # (Auto) 0.02 Immature Gran # (Auto) 0.10 H APTT 54.0 H* PTT Ratio 2.1 Sodium 139 Potassium 3.5 Chloride 107 Carbon Dioxide 29 Anion Gap 3.0 BUN 17 Creatinine 0.89 Est Cr Clr Drug Dosing 71.5 Est GFR ( Amer) 91.0 Est GFR (Non-Af Amer) 78.5 BUN/Creatinine Ratio 18.8 Glucose 104 H Calcium 7.9 L Magnesium 1.9 NT-Pro-B Natriuret Pep Vancomycin Trough 03/27/21 03/27/21 07:26 07:26 WBC RBC Hgb Hct MCV MCH MCHC RDW Std Deviation RDW Coeff of [place] Plt Count MPV Immature Gran % (Auto) Neut % (Auto) Lymph % (Auto) [place] % (Auto) Eos % (Auto) Baso % (Auto) Neut # (Auto) Lymph # (Auto) [place] # (Auto) Eos # (Auto) Baso # (Auto) Immature Gran # (Auto) APTT PTT Ratio Sodium Potassium Chloride Carbon Dioxide Anion Gap BUN Creatinine Est Cr Clr Drug Dosing Est GFR ( Amer) Est GFR (Non-Af Amer) BUN/Creatinine Ratio Glucose Calcium Magnesium NT-Pro-B Natriuret Pep 435 Vancomycin Trough 15.0 PG Care Time/CCT Total # of Minutes Spent Total Time Spent with Patient: Total time spent is greater than 50% in coordination of care (as documented) at patient's floor/unit and/or counseling patient: Coding Level of Care Code 00305 Subseq Hosp Care Lvl 3 Diagnoses Cellulitis L03.119 Laterality: unspecified laterality Site of cellulitis: extremity Site of cellulitis of extremity: lower extremity Pulmonary embolism I26.99 Acute cor pulmonale presence: unspecified Chronicity: unspecified Pulmonary embolism type: unspecified Sepsis A41.9 Sepsis acute organ dysfunction status: unspecified Sepsis type: sepsis due to unspecified organism S/P hip hemiarthroplasty Z96.649 Diastolic CHF I50.32 Heart failure chronicity: chronic Hypertension I10 Hypertension type: essential hypertension COPD (chronic obstructive pulmonary disease) 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 PRISCILA (obstructive sleep apnea) G47.33 Hypothyroidism (acquired) E03.[address] R93.89 Lymphedema I89.0 DVT prophylaxis Z29.9 Livedo reticularis R23.1 (1) Diastolic CHF Heart failure chronicity: chronic Qualified Code(s): I50.32 - Chronic diastolic (congestive) heart failure (2) Cellulitis Laterality: unspecified laterality Site of cellulitis: extremity Site of cellulitis of extremity: lower extremity Qualified Code(s): L03.119 - Cellulitis of unspecified part of limb (3) Sepsis Sepsis acute organ dysfunction status: unspecified Sepsis type: sepsis due to unspecified organism Qualified Code(s): A41.9 - Sepsis, unspecified organism (4) COPD (chronic obstructive pulmonary disease) COPD type: emphysema Emphysema type: unspecified Qualified Code(s): J43.9 - Emphysema, unspecified (5) Pulmonary embolism Acute cor pulmonale presence: unspecified Chronicity: unspecified Pulmonary embolism type: unspecified Qualified Code(s): I26.99 - Other pulmonary embolism without acute cor pulmonale (6) Hypertension Hypertension type: essential hypertension Qualified Code(s): I10 - Essential (primary) hypertension
[2021-03-28] MEDS: VANCOMYCIN HCL 1,250 MG in SODIUM CHLORIDE 0.9% 250 ML IV SCH ×2 (02:00→19:39)
[2021-03-28] MEDS: LEVOTHYROXINE SODIUM 150 MCG TABLET PO SCH (05:12)
[2021-03-28] MEDS: SODIUM CHLOR 7% 4 ML NEB NEB SCH ×2 (07:07→19:07)
[2021-03-28 08:02] LABS: Partial Thromboplastin Ratio 2.5
[2021-03-28 08:22] LABS: BUN Creatinine Ratio 13.2 (10-20); Calcium 8.1 mg/dl (8.5-10.1); Creatinine Clr Calc Pharmacy 62.2 ml/min; Est GFR (Non-African American) 66.4 ml/min; Potassium 4.3 mmol/L (3.5-5.1)
--- NOTE | 2021-03-28 08:47 | Pulmonology Progress Note ---
Date of Service March 28, 2021 Assessment & Plan (1) Abnormal chest CT: Plan: Impression: 85-year-old male with obstructive lung disease and sleep disordered breathing/overlap syndrome admitted with lower extremity swelling and erythema, possibly due to cellulitis. He has evidence of volume overload on his exam. He has a history of heart failure with preserved ejection fraction. He was noted to have bilateral upper lobe patchy opacities as well as some medias tinal adenopathy and some narrowing of his bronchus intermedius. The differential of the upper lobe opacities would include etiologies such as atypical pulmonary edema, pulmonary hemorrhage, diffuse parenchymal lung disease, interstitial lung disease. Aspiration would be less likely given the location of the infiltrates. He is clinically improved with diuresis. Recommendations: 1. Abnormal CT scan: Patient I have elected to pursue a conservative approach with diuresis and clinical follow-up. Please refer to prior notes. 2. BNP was normal. Echocardiogram not yet resulted. His I's and O's remain positive despite initiation of Lasix yesterday 3. Continue prednisone 40 mg a day. Anticipate 5-day course. Continue inhalers, currently on Flovent as well as Anoro. Continue Mucinex and hypertonic saline with flutter valve for pulmonary toilet 4. Continue supplemental oxygen titrated to keep oxygen saturations at or above 88%. Oxygenation improved today 5. Continue CPAP at night. 6. Patient will require a follow-up CT scan in approximately 6 to 8 weeks. If these abnormalities persist would have a low threshold for proceeding with PET scanning and consideration for invasive procedures such as bronchoscopy at that point time. 7. Subsegmental PE: Agree with anticoagulation. Would recommend 3 months of anticoagulation given the subsegmental location of the filling defect. When he is felt to be clinically appropriate, he can be dismissed to rehab and I would be happy to see him back in the outpatient clinical setting with follow-up imaging in 6 to 8 weeks as noted (2) CHF (congestive heart failure): Heart failure chronicity: acute on chronic Heart failure type: unspecified Qualified Code(s): I50.9 - Heart failure, unspecified (3) Pulmonary embolism: Pulmonary embolism type: unspecified Chronicity: unspecified Acute cor pulmonale presence: unspecified Qualified Code(s): I26.99 - Other pulmonary embolism without acute cor pulmonale Admission and Anticipated Discharge Date Admission Date: March 25, 2021 Subjective Patient seen and examined. EMR reviewed. He states he feels better this morning. He is coughing less. His oxygen requirement has been weaned down. Continues to report intermittent wheezing. He has been up to the chair and ambulatory. No chest pain or palpitations. Review of Systems Review of Systems: Unchanged from prior and negative except as noted in HPI Physical Exam Constitutional: WD/WN, vitals as above Neck: trachea midline, no thyromegaly Respiratory: normal respiratory effort, lungs clear to auscultation no respiratory distress and no labored breathing Auscultation: + wheezes Cardiovascular: RRR, no murmur, no edema Gastrointestinal (Abdomen): normal bowel sounds, soft, nontender, no hepatosplenomegaly Musculoskeletal: Extremities: extremities normal to inspection Skin: no rashes, warm and dry Neurologic: Nonfocal exam Lymphatic: no cervical lymphadenopathy Results & Data Results & Data ([facility]) Vital Signs (Past 12 Hours) Vital Signs Temp Pulse Pulse Resp BP Pulse Ox 03/28/21 08:03 36.8 C 66 20 141/58 H 100 03/28/21 07:08 91 H 20 95 03/28/21 04:33 36.8 C 89 18 112/67 97 03/28/21 00:13 37.1 C 103 H 20 133/74 94 03/27/21 23:43 100 H I/O: +1.7 L last 24 hours, cumulative 2.25 L since admission Laboratory Results 03/27/21 04:17 03/28/21 07:18 Diagnostic Findings No new imaging PG Care Time/CCT Total # of Minutes Spent Total Time Spent with Patient: Total time spent is greater than 50% in coordination of care (as documented) at patient's floor/unit and/or counseling patient: Coding Level of Care Code 55104 Subseq Hosp Care Lvl [address] R93.89 CHF (congestive heart failure) I50.9 Heart failure chronicity: acute on chronic Heart failure type: unspecified Pulmonary embolism I26.99 Pulmonary embolism type: unspecified Chronicity: unspecified Acute cor pulmonale presence: unspecified
[2021-03-28] MEDS ORDERED: FUROSEMIDE 40 MG in SYRINGE 0 ML IV SCH (09:00)
[2021-03-28] MEDS: HEPARIN SODIUM/DEXTROSE 25,000 UNITS/500 ML BAG IV SCH (09:13)
[2021-03-28] MEDS: guaiFENesin 600 MG TABCR PO SCH ×2 (09:16→20:32)
[2021-03-28] MEDS: predniSONE 20 MG TAB PO SCH ×2 (09:16→20:32)
[2021-03-28] MEDS: CALCIUM 600MG + VIT D 400 IU TAB PO SCH (09:16)
[2021-03-28] MEDS: FLUTICASONE FUROATE 100MCG 14 PUFFS/INHALER INH SCH (09:16)
[2021-03-28] MEDS: PANTOprazole 40 MG TAB PO SCH (09:16)
[2021-03-28] MEDS: UMECLIDINIUM/VILANTEROL 62.5/25MCG 7 PUFFS/INHALER INH SCH (09:17)
[2021-03-28] MEDS: DOXYCYCLINE HYCLATE 100 MG in DEXTROSE 5% 100 ML IV SCH ×2 (11:51→22:37)
--- NOTE | 2021-03-28 12:27 | XCELERA ---
[id number]
[2021-03-28] MEDS ORDERED: VANCOMYCIN TROUGH ONE (13:30)
[2021-03-28] MEDS: cefTRIAXone SODIUM 2,000 MG in DEXTROSE 5% 50 ML IV SCH (17:15)
[2021-03-28] MEDS ORDERED: FUROSEMIDE 40 MG in SYRINGE 0 ML IV ONE (18:15)
[2021-03-28] MEDS: VERAPAMIL HCL 180 MG TABCR PO SCH (20:31)
--- NOTE | 2021-03-28 21:16 | Hospitalist Progress Note ---
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 inflammatory? other? 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 autoimmune disease? improved on exam today, with right leg more improved than left leg (13) DVT prophylaxis: Plan: 1. cellulitis - cont rocephin, cont vanco. 2. ?bacterial pneumonia b/l upper lobes - cont rocephin, doxy (atypical coverage), vanco (pt is MRSA+). Plan 5 days of Rx for this. 3. cont PO prednisone for COPD. 4. mouth soreness - magic mouthwash qid swish/spit. this issue is better today. 5. PT, OT. 6. cont diuresis. increase lasix to 40mg am, 40mg afternoon. 7. cont heparin for PE today and change to ?eliquis or xarelto in am. 8. labs in am. updated at bedside yesterday Admission and Anticipated Discharge Date Admission Date: March 25, 2021 Subjective tele overnight sinus tach w/ ectopy pt sitting in chair during visit states he is overall feeling good thinks legs have improved once again especially on right leg denies pain in any location coughing, but no dyspnea at rest; REID is at baseline eating well Review of Systems Constitutional: no fever, no chills and no anorexia Respiratory: + dyspnea on exertion, + sputum production and + wheezing; no hemoptysis Cardiovascular: + edema; no chest pain, no dyspnea at rest and no orthopnea Gastrointestinal: no abdominal pain, no nausea and no vomiting Physical Exam Constitutional: no acute distress and no altered mental status ENMT: external ear and nose normal, oropharynx normal Respiratory: Auscultation: + diminished lung sounds (Bases), + crackles (Bases) and + wheezes Cardiovascular: Rate/Rhythm: + tachycardic and + irregularly irregular Heart Sounds: normal S1 and normal S2; no murmur Vessels: posterior tibial pulses present and dorsalis pedis pulses present; no JVD Extremities: + edema (2-3+ edema b/l, all the way to the knees) Gastrointestinal (Abdomen): normal bowel sounds, soft, nontender, no hepatosplenomegaly Skin: cellulitis b/l legs much improved with erythema receding from the knees b/l; less intensely red; there is a ?small hematoma area on the left lateral nielsen; there is hyperpigmentation in a large patch on proximal left nielsen; ?livedo reticularis b/l distal thighs, L>R, improved today Psychiatric: A+Ox3, euthymic affect Results & Data Results & Data ([facility]) Vital Signs (Past 12 Hours) Vital Signs Temp Pulse Pulse Resp BP Pulse Ox 03/28/21 19:57 36.7 C 99 H 18 147/86 H 98 03/28/21 19:07 86 18 94 03/28/21 16:00 36.5 C 66 18 129/65 98 03/28/21 12:17 86 03/28/21 11:53 36.8 C 108 H 20 125/79 95 Laboratory Results Laboratory Results - last 24 hr 03/28/21 03/28/21 03/28/21 07:18 07:18 15:49 APTT 66.0 H* PTT Ratio 2.5 Sodium 138 Potassium 4.3 D Chloride 105 Carbon Dioxide 28 Anion Gap 5.0 BUN 14 Creatinine 1.03 Est Cr Clr Drug Dosing 62.2 Est GFR ( Amer) 77.0 Est GFR (Non-Af Amer) 66.4 BUN/Creatinine Ratio 13.2 Glucose 128 H Calcium 8.1 L Magnesium 2.0 Vancomycin Trough 17.4 Diagnostic Findings echo - preserve EF, preserved RV function, pulm HTN PG Care Time/CCT Total # of Minutes Spent Total Time Spent with Patient: Total time spent is greater than 50% in coordination of care (as documented) at patient's floor/unit and/or counseling patient: Coding Level of Care Code 18315 Subseq Hosp Care Lvl 3 Diagnoses Cellulitis L03.119 Laterality: unspecified laterality Site of cellulitis: extremity Site of cellulitis of extremity: lower extremity Pulmonary embolism I26.99 Acute cor pulmonale presence: unspecified Chronicity: unspecified Pulmonary embolism type: unspecified Sepsis A41.9 Sepsis acute organ dysfunction status: unspecified Sepsis type: sepsis due to unspecified organism S/P hip hemiarthroplasty Z96.649 Diastolic CHF I50.32 Heart failure chronicity: chronic Hypertension I10 Hypertension type: essential hypertension COPD (chronic obstructive pulmonary disease) 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 PRISCILA (obstructive sleep apnea) G47.33 Hypothyroidism (acquired) E03.[address] R93.89 Lymphedema I89.0 Livedo reticularis R23.1 DVT prophylaxis Z29.9 (1) Diastolic CHF Heart failure chronicity: chronic Qualified Code(s): I50.32 - Chronic diastolic (congestive) heart failure (2) Cellulitis Laterality: unspecified laterality Site of cellulitis: extremity Site of cellulitis of extremity: lower extremity Qualified Code(s): L03.119 - Cellulitis of unspecified part of limb (3) Sepsis Sepsis acute organ dysfunction status: unspecified Sepsis type: sepsis due to unspecified organism Qualified Code(s): A41.9 - Sepsis, unspecified organism (4) COPD (chronic obstructive pulmonary disease) COPD type: emphysema Emphysema type: unspecified Qualified Code(s): J43.9 - Emphysema, unspecified (5) Pulmonary embolism Acute cor pulmonale presence: unspecified Chronicity: unspecified Pulmonary embolism type: unspecified Qualified Code(s): I26.99 - Other pulmonary embolism without acute cor pulmonale (6) Hypertension Hypertension type: essential hypertension Qualified Code(s): I10 - Essential (primary) hypertension
[2021-03-28] MEDS: ACETAMINOPHEN 325 MG TAB PO PRN (23:37)
[2021-03-29] MEDS: HEPARIN SODIUM/DEXTROSE 25,000 UNITS/500 ML BAG IV SCH ×2 (00:25→17:35)
[2021-03-29] MEDS: LEVOTHYROXINE SODIUM 150 MCG TABLET PO SCH (05:29)
[2021-03-29 06:42] LABS: Partial Thromboplastin Ratio 2.5; Partial Thromboplastin Time 65.5 Seconds (21.0-31.0)
[2021-03-29 06:52] LABS: BUN Creatinine Ratio 18.6 (10-20); Est GFR (African American) 75.2 ml/min; Est GFR (Non-African American) 64.9 ml/min; Potassium 3.7 mmol/L (3.5-5.1)
[2021-03-29 06:54] LABS: C Reactive Protein 5.41 mg/dl (0-0.29)
[2021-03-29] MEDS: SODIUM CHLOR 7% 4 ML NEB NEB SCH ×2 (07:09→19:15)
--- NOTE | 2021-03-29 08:51 | Pulmonology Progress Note ---
Date of Service March 29, 2021 Assessment & Plan (1) Abnormal chest CT: Plan: Impression: 85-year-old male with obstructive lung disease and sleep disordered breathing/overlap syndrome admitted with lower extremity swelling and erythema, possibly due to cellulitis. He has evidence of volume overload on his exam. He has a history of heart failure with preserved ejection fraction. He was noted to have bilateral upper lobe patchy opacities as well as some medias tinal adenopathy and some narrowing of his bronchus intermedius. The differential of the upper lobe opacities would include etiologies such as atypical pulmonary edema, pulmonary hemorrhage, diffuse parenchymal lung disease, interstitial lung disease. Aspiration would be less likely given the location of the infiltrates. He is clinically improved with diuresis. Recommendations: 1. Abnormal CT scan: Patient I have elected to pursue a conservative approach with diuresis and clinical follow-up. Please refer to prior notes. 2. BNP was normal. Echocardiogram not yet resulted. His I's and O's are now even. Follow renal function. 3. Continue prednisone 40 mg a day. Anticipate 5-day course. Continue inhalers, currently on Flovent as well as Anoro. Continue Mucinex and hypertonic saline with flutter valve for pulmonary toilet 4. Continue supplemental oxygen titrated to keep oxygen saturations at or above 88%. Oxygenation improved today 5. Continue CPAP at night. 6. Patient will require a follow-up CT scan in approximately 6 to 8 weeks. If these abnormalities persist would have a low threshold for proceeding with PET scanning and consideration for invasive procedures such as bronchoscopy at that point time. 7. Subsegmental PE: Agree with anticoagulation. Would recommend 3 months of anticoagulation given the subsegmental location of the filling defect. Okay to transition to oral anticoagulants at this point time. 8. Pulmonary hypertension: Suspect secondary WHO class II and III. Could be adversely affected by the current PE. Consideration for repeat echocardiogram in 3 to 6 months may be appropriate. Do not think the patient requires vasodilators or right heart catheterization at this point time. Continue diuretics as tolerated. When he is felt to be clinically appropriate, he can be dismissed to rehab and I would be happy to see him back in the outpatient clinical setting with follow-up imaging in 6 to 8 weeks as noted (2) CHF (congestive heart failure): Heart failure chronicity: acute on chronic Heart failure type: unspecified Qualified Code(s): I50.9 - Heart failure, unspecified (3) Pulmonary embolism: Pulmonary embolism type: unspecified Chronicity: unspecified Acute cor pulmonale presence: unspecified Qualified Code(s): I26.99 - Other pulmonary embolism without acute cor pulmonale Admission and Anticipated Discharge Date Admission Date: March 25, 2021 Subjective Patient seen and examined. EMR reviewed. He states he is feeling better this morning. He was able to ambulate for short distances yesterday without difficulty. He remains on oxygen. He is coughing less. He continues to experience intermittent wheezing. He is tolerating a diet. He overall feels that his respiratory status and overall clinical status are improved. Review of Systems Review of Systems: Unchanged from prior and negative except as noted in HPI Physical Exam Constitutional: WD/WN, vitals as above Neck: trachea midline, no thyromegaly Respiratory: normal respiratory effort, lungs clear to auscultation no respiratory distress and no labored breathing Auscultation: + wheezes Cardiovascular: RRR, no murmur, no edema Gastrointestinal (Abdomen): normal bowel sounds, soft, nontender, no hepatosplenomegaly Musculoskeletal: Extremities: extremities normal to inspection Skin: no rashes, warm and dry Lymphatic: no cervical lymphadenopathy Results & Data Results & Data ([facility]) Vital Signs (Past 12 Hours) Vital Signs Temp Pulse Pulse Resp BP BP Pulse Ox 03/29/21 07:56 93 H 03/29/21 07:44 36.8 C 90 22 133/72 99 03/29/21 07:09 81 18 98 03/29/21 03:58 36.4 C L 110 H 18 137/75 94 03/29/21 00:53 95 H 03/28/21 23:22 36.8 C 93 H 18 134/89 94 Laboratory Results 03/27/21 04:17 03/29/21 06:01 Diagnostic Findings Echocardiogram showed an ejection fraction of 50 to 55% with normal LV motion. Right ventricle was borderline enlarged with normal right ventricular systolic function. Study was technically limited by acoustic windows. Mild aortic insufficiency was noted. Right ventricular systolic pressure estimated at 40-50 PG Care Time/CCT Total # of Minutes Spent Total Time Spent with Patient: Total time spent is greater than 50% in coordination of care (as documented) at patient's floor/unit and/or counseling patient: Coding Level of Care Code 26630 Subseq Hosp Care Lvl [address] R93.89 CHF (congestive heart failure) I50.9 Heart failure chronicity: acute on chronic Heart failure type: unspecified Pulmonary embolism I26.99 Pulmonary embolism type: unspecified Chronicity: unspecified Acute cor pulmonale presence: unspecified
[2021-03-29] MEDS: FUROSEMIDE 40 MG in SYRINGE 0 ML IV SCH ×2 (08:54→17:35)
[2021-03-29] MEDS: UMECLIDINIUM/VILANTEROL 62.5/25MCG 7 PUFFS/INHALER INH SCH (08:54)
[2021-03-29] MEDS: FLUTICASONE FUROATE 100MCG 14 PUFFS/INHALER INH SCH (08:54)
[2021-03-29] MEDS: CALCIUM 600MG + VIT D 400 IU TAB PO SCH (09:00)
[2021-03-29] MEDS: guaiFENesin 600 MG TABCR PO SCH ×2 (09:00→20:08)
[2021-03-29] MEDS: PANTOprazole 40 MG TAB PO SCH (09:00)
[2021-03-29] MEDS: predniSONE 20 MG TAB PO SCH ×2 (09:00→20:08)
[2021-03-29] MEDS: guaiFENesin/DEXTROM SYRUP 100MG/10MG 5ML UDC PO PRN (09:00)
--- NOTE | 2021-03-29 09:42 | Pharmacy Report ---
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) Day # 4 IV Vancomycin Day # 3 Doxycycline (changed to PO today) Day # 5 IV Ceftriaxone Procal negative, WBC normal, afebrile Plan Vancomycin * Trough level of 17.4 mcg/mL is therapeutic, this was drawn 3 hours early, but will still be therapeutic for dose * Continue dose of 1250 mg IV every 18 hours * Goal trough level for cellulitis : 15 mcg/mL * Further levels to be ordered based on duration of therapy, currently ordered for 7 days Doxycycline 100mg PO BID, continue until 03/31 for 5 days treatment Ceftriaxone 2g IV Q24H x 5 days, treatment complete after dose today at 1800 Pharmacy will continue to follow and will adjust dose/frequency as necessary. Thank you.
[2021-03-29] MEDS: DOXYCYCLINE HYCLATE 100 MG CAP PO SCH ×2 (11:54→20:08)
[2021-03-29] MEDS ORDERED: VANCOMYCIN TROUGH ONE (13:30)
[2021-03-29] MEDS: VANCOMYCIN HCL 1,250 MG in SODIUM CHLORIDE 0.9% 250 ML IV SCH (14:33)
[2021-03-29] MEDS: cefTRIAXone SODIUM 2,000 MG in DEXTROSE 5% 50 ML IV SCH (17:34)
[2021-03-29] MEDS: VERAPAMIL HCL 180 MG TABCR PO SCH (20:08)
[2021-03-29] MEDS: APIXABAN 5 MG TABLET PO SCH (20:08)
--- NOTE | 2021-03-29 20:54 | Hospitalist Progress Note ---
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 (6) Hypertension: Plan: controlled (7) COPD (chronic obstructive pulmonary disease): Plan: with exacerbation improving (8) PRISCILA (obstructive sleep apnea): Plan: on CPAP (9) Hypothyroidism (acquired): Plan: TSH wnl 01/2021 (10) Abnormal chest CT: Plan: b/l upper lobe infiltrates, with some new infiltration since 02/26/[address] Burt's consultation ?pneumonia? inflammatory? other? 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 autoimmune disease? again improved on exam today, with right leg more improved than left leg (13) DVT prophylaxis: Plan: 1. cellulitis - can stop rocephin. cont vanco 1 more day. 2. ?bacterial pneumonia b/l upper lobes - can stop rocephin (5-day course). cont doxy (atypical coverage) for 5 total days. vanco (pt is MRSA+) remains which will cover lungs & legs. 3. cont PO prednisone for COPD. 4. mouth soreness - magic mouthwash qid swish/spit. this issue is better today. 5. cont PT, OT. 6. cont diuresis with lasix 40mg am, 40mg afternoon. fluid restrict to 1500cc/day. 7. eliquis cost $20/month; start eliquis tonight 5mg BID. stop heparin IV. 8. labs in am. updated by phone this evening Admission and Anticipated Discharge Date Admission Date: March 25, 2021 Subjective patient feeling good again states his legs are improved no pain in any location breathing is near-baseline; states that walking to bathroom causes REID eating well cough unchanged denies cp, abd pain telemetry - HRs improving, now lower 100s Review of Systems Constitutional: no fever, no chills, no fatigue and no anorexia Respiratory: + cough, + dyspnea on exertion and + wheezing Cardiovascular: + edema; no chest pain Gastrointestinal: no abdominal pain, no nausea and no vomiting Physical Exam Constitutional: no acute distress and no altered mental status ENMT: external ear and nose normal, oropharynx normal Respiratory: no respiratory distress Auscultation: + diminished lung sounds (Bases), + crackles (Bases, about 1/[address] up back posteriorly) and + wheezes (present b/l, but improving ) Cardiovascular: Rate/Rhythm: + tachycardic and + irregularly irregular Heart Sounds: normal S1 and normal S2; no murmur Vessels: posterior tibial pulses present and dorsalis pedis pulses present; no JVD Extremities: + edema (2-3+ edema b/l-- no change ) Gastrointestinal (Abdomen): normal bowel sounds, soft, nontender, no hepatospl enomegaly Skin: lacy, mottled appearance of thighs - L>R - modestly improved from prior exams. b/l LE cellulitis IMPROVED - no warmth, redness resolving, retreating. Psychiatric: A+Ox3, euthymic affect Results & Data Results & Data ([facility]) Vital Signs (Past 12 Hours) Vital Signs Temp Pulse Pulse Resp BP Pulse Ox 03/29/21 19:42 36.9 C 93 H 19 138/73 97 03/29/21 19:15 87 18 98 03/29/21 15:25 90 03/29/21 15:17 36.7 C 91 H 22 160/87 H 97 03/29/21 12:05 36.8 C 97 H 22 137/73 99 Laboratory Results Laboratory Results - last 24 hr 03/29/21 03/29/21 03/29/21 06:01 06:01 06:01 ESR 67 H APTT 65.5 H* PTT Ratio 2.5 Sodium 137 Potassium 3.7 Chloride 105 Carbon Dioxide 29 Anion Gap 3.0 BUN 20 H Creatinine 1.05 Est Cr Clr Drug Dosing 61.0 Est GFR ( Amer) 75.2 Est GFR (Non-Af Amer) 64.9 BUN/Creatinine Ratio 18.6 Glucose 124 H Calcium 8.0 L C-Reactive Protein 5.41 H PG Care Time/CCT Total # of Minutes Spent Total Time Spent with Patient: Total time spent is greater than 50% in coordination of care (as documented) at patient's floor/unit and/or counseling patient: Coding Level of Care Code 32001 Subseq Hosp Care Lvl 3 Diagnoses Cellulitis L03.119 Laterality: unspecified laterality Site of cellulitis: extremity Site of cellulitis of extremity: lower extremity Pulmonary embolism I26.99 Acute cor pulmonale presence: unspecified Chronicity: unspecified Pulmonary embolism type: unspecified Sepsis A41.9 Sepsis acute organ dysfunction status: unspecified Sepsis type: sepsis due to unspecified organism S/P hip hemiarthroplasty Z96.649 Diastolic CHF I50.32 Heart failure chronicity: chronic Hypertension I10 Hypertension type: essential hypertension COPD (chronic obstructive pulmonary disease) 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 PRISCILA (obstructive sleep apnea) G47.33 Hypothyroidism (acquired) E03.[address] R93.89 Lymphedema I89.0 Livedo reticularis R23.1 DVT prophylaxis Z29.9 (1) Diastolic CHF Heart failure chronicity: chronic Qualified Code(s): I50.32 - Chronic diastolic (congestive) heart failure (2) Cellulitis Laterality: unspecified laterality Site of cellulitis: extremity Site of cellulitis of extremity: lower extremity Qualified Code(s): L03.119 - Cellulitis of unspecified part of limb (3) Sepsis Sepsis acute organ dysfunction status: unspecified Sepsis type: sepsis due to unspecified organism Qualified Code(s): A41.9 - Sepsis, unspecified organism (4) COPD (chronic obstructive pulmonary disease) COPD type: emphysema Emphysema type: unspecified Qualified Code(s): J43.9 - Emphysema, unspecified (5) Pulmonary embolism Acute cor pulmonale presence: unspecified Chronicity: unspecified Pulmonary embolism type: unspecified Qualified Code(s): I26.99 - Other pulmonary embolism without acute cor pulmonale (6) Hypertension Hypertension type: essential hypertension Qualified Code(s): I10 - Essential (primary) hypertension
[2021-03-30] MEDS: LEVOTHYROXINE SODIUM 150 MCG TABLET PO SCH (06:44)
[2021-03-30] MEDS: SODIUM CHLOR 7% 4 ML NEB NEB SCH ×2 (07:14→19:29)
[2021-03-30 07:46] LABS: BUN Creatinine Ratio 22.1 (10-20); Calcium 8.4 mg/dl (8.5-10.1); Creatinine Clr Calc Pharmacy 58.6 ml/min; Est GFR (African American) 71.9 ml/min
[2021-03-30] MEDS: VANCOMYCIN HCL 1,250 MG in SODIUM CHLORIDE 0.9% 250 ML IV SCH (08:32)
[2021-03-30] MEDS: predniSONE 20 MG TAB PO SCH ×2 (08:32→20:13)
[2021-03-30] MEDS: guaiFENesin 600 MG TABCR PO SCH ×2 (08:32→20:12)
[2021-03-30] MEDS: PANTOprazole 40 MG TAB PO SCH (08:32)
[2021-03-30] MEDS: FUROSEMIDE 40 MG in SYRINGE 0 ML IV SCH (08:33)
[2021-03-30] MEDS: CALCIUM 600MG + VIT D 400 IU TAB PO SCH (08:33)
[2021-03-30] MEDS: UMECLIDINIUM/VILANTEROL 62.5/25MCG 7 PUFFS/INHALER INH SCH (08:33)
[2021-03-30] MEDS: APIXABAN 5 MG TABLET PO SCH ×2 (08:33→20:12)
[2021-03-30] MEDS: FLUTICASONE FUROATE 100MCG 14 PUFFS/INHALER INH SCH (08:33)
[2021-03-30] MEDS: DOXYCYCLINE HYCLATE 100 MG CAP PO SCH ×2 (10:55→20:12)
--- NOTE | 2021-03-30 14:21 | Hospitalist Progress Note ---
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 inflammatory? other? 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 autoimmune disease? still remains on b/l anterior thighs sed rate and crp both improved yesterday (13) DVT prophylaxis: Plan: 1. cellulitis - stop IV vanco. Transition to keflex with doxy. 2. ?bacterial pneumonia b/l upper lobes - s/p 5-day course of rocephin, now discontinued. s/p 6 days of IV vanco - to be stopped tonight. cont doxy -- will provide some MRSA coverage of lungs and atypical coverage. 3. cont PO prednisone for COPD. 4. mouth soreness - magic mouthwash qid swish/spit. this issue is better today. 5. cont PT, OT. 6. cont diuresis with lasix but increase to 60mg am, 60mg afternoon. fluid restrict to 1500cc/day. 7. cont eliquis 10mg BID x 7 days, then 5mg BID thereafter. plan 3 months of Rx for MING pulmonary embolus. 8. labs in am. updated by phone 03/29 Admission and Anticipated Discharge Date Admission Date: March 25, 2021 Subjective tele stable overnight sinus tach - low 100s sitting in chair -states he is feeling well during my visit I took off his O2 waited 5-10 minutes -- O2 sats stayed 97% in RA cough improved dyspnea improved eating well LE edema modestly improved especially on right Review of Systems Constitutional: no fever and no chills Respiratory: + dyspnea on exertion (no worse than baseline) Cardiovascular: no chest pain Gastrointestinal: no abdominal pain, no nausea, no vomiting and no diarrhea/loose stools Physical Exam Constitutional: no acute distress and no altered mental status ENMT: external ear and nose normal, oropharynx normal Respiratory: no respiratory distress Auscultation: + diminished lung sounds (Bases), + crackles (Bases - modestly improved today ) and + wheezes (minimal today b/l ) Cardiovascular: Rate/Rhythm: + tachycardic and + irregularly irregular Heart Sounds: normal S1 and normal S2; no murmur Vessels: posterior tibial pulses present and dorsalis pedis pulses present; no JVD Extremities: + edema (2+ edema b/l; minimal amount of hematoma left lateral distal leg ) Gastrointestinal (Abdomen): normal bowel sounds, soft, nontender, no hepatosplenomegaly Skin: cellulitis right nielsen much improved; no warmth; pink in color. cellulitis left nielsen also improving albeit not as quickly as RLE. [id number] there is less intensely red skin. slight hematoma left lateral distal leg. area of hyperpigmentation left mid-nielsen. again seen is mottled skin distal thighs, L>R -- livedo reticularis ?? Psychiatric: A+Ox3, euthymic affect Results & Data Results & Data ([facility]) Vital Signs (Past 12 Hours) Vital Signs Temp Pulse Pulse Resp BP Pulse Ox 03/30/21 11:45 36.4 C L 47 L 24 136/76 91 03/30/21 08:00 87 03/30/21 07:40 36.5 C 86 20 127/68 99 03/30/21 07:14 94 H 18 95 03/30/21 02:50 36.8 C 107 H 21 157/95 H 96 Laboratory Results Laboratory Results - last 24 hr 03/30/21 06:39 Sodium 141 Potassium 4.0 Chloride 108 H Carbon Dioxide 29 Anion Gap 4.0 BUN 24 H Creatinine 1.09 Est Cr Clr Drug Dosing 58.6 Est GFR ( Amer) 71.9 Est GFR (Non-Af Amer) 62.0 BUN/Creatinine Ratio 22.1 H Glucose 111 H Calcium 8.4 L PG Care Time/CCT Total # of Minutes Spent Total Time Spent with Patient: Total time spent is greater than 50% in coordination of care (as documented) at patient's floor/unit and/or counseling patient: Coding Level of Care Code 31434 Subseq Hosp Care Lvl 3 Diagnoses Cellulitis L03.119 Laterality: unspecified laterality Site of cellulitis: extremity Site of cellulitis of extremity: lower extremity Pulmonary embolism I26.99 Acute cor pulmonale presence: unspecified Chronicity: unspecified Pulmonary embolism type: unspecified Sepsis A41.9 Sepsis acute organ dysfunction status: unspecified Sepsis type: sepsis due to unspecified organism S/P hip hemiarthroplasty Z96.649 Diastolic CHF I50.32 Heart failure chronicity: chronic Hypertension I10 Hypertension type: essential hypertension COPD (chronic obstructive pulmonary disease) 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 PRISCILA (obstructive sleep apnea) G47.33 Hypothyroidism (acquired) E03.[address] R93.89 Lymphedema I89.0 Livedo reticularis R23.1 DVT prophylaxis Z29.9 (1) Diastolic CHF Heart failure chronicity: chronic Qualified Code(s): I50.32 - Chronic diastolic (congestive) heart failure (2) Cellulitis Laterality: unspecified laterality Site of cellulitis: extremity Site of cellulitis of extremity: lower extremity Qualified Code(s): L03.119 - Cellulitis of unspecified part of limb (3) Sepsis Sepsis acute organ dysfunction status: unspecified Sepsis type: sepsis due to unspecified organism Qualified Code(s): A41.9 - Sepsis, unspecified organism (4) COPD (chronic obstructive pulmonary disease) COPD type: emphysema Emphysema type: unspecified Qualified Code(s): J43.9 - Emphysema, unspecified (5) Pulmonary embolism Acute cor pulmonale presence: unspecified Chronicity: unspecified Pulmonary embolism type: unspecified Qualified Code(s): I26.99 - Other pulmonary embolism without acute cor pulmonale (6) Hypertension Hypertension type: essential hypertension Qualified Code(s): I10 - Essential (primary) hypertension
[2021-03-30] MEDS: ACETAMINOPHEN 325 MG TAB PO PRN (15:14)
--- NOTE | 2021-03-30 15:24 | XRay Report ---
XR chest 2V PA/lateral HISTORY: b/l infiltrates, interval change COMPARISON: Chest 03/25/2021. Chest CTA 03/26/2021. FINDINGS: There are low lung volumes. No pneumothorax. No pleural fusions. The cardiac silhouette rem ains mildly enlarged. Emphysema. Biapical and bibasilar airspace opacities are similar to the prior s tudy. The interstitial thickening/edema has resolved. IMPRESSION: No change in the biapical and bibasilar airspace opacities. However, the interstitial edema has resol frank in the interval. ACT 112: Negative or not required by law. Electronically signed by: Amandeep Monsivais M.D. 03/30/2021 3:23 PM
[2021-03-30] MEDS: FUROSEMIDE 60 MG in SYRINGE 0 ML IV SCH (18:31)
[2021-03-30] MEDS: VERAPAMIL HCL 180 MG TABCR PO SCH (20:12)
[2021-03-31] MEDS: LEVOTHYROXINE SODIUM 150 MCG TABLET PO SCH (05:55)
[2021-03-31] MEDS: SODIUM CHLOR 7% 4 ML NEB NEB SCH ×2 (06:58→19:38)
[2021-03-31 07:22] LABS: Hematocrit (blood only) 35.6 % (42-52); Hemoglobin 11.2 g/dL (14.0-18.0); Mean Corpuscular Hemoglobin 28.6 pg (25-34); Mean Corpuscular Hgb Conc 31.5 g/dL (32-36); Mean Platelet Volume 11.1 fL (7.4-10.4); Platelet Count 363 K/uL (130-400); RDW Coefficient of Variation 13.9 % (11.5-14.5); RDW Standard Deviation 45.8 fL (36.4-46.3); Red Blood Count 3.91 M/uL (4.7-6.1); White Blood Count 15.75 K/uL (4.8-10.8)
[2021-03-31 07:39] LABS: BUN Creatinine Ratio 29.8 (10-20); Calcium 8.3 mg/dl (8.5-10.1); Creatinine Clr Calc Pharmacy 65.8 ml/min; Est GFR (African American) 82.7 ml/min; Est GFR (Non-African American) 71.4 ml/min; Potassium 3.7 mmol/L (3.5-5.1)
[2021-03-31] MEDS: ADVANCED PROBIOTIC 1250 MG CAPSULE PO SCH (08:11)
[2021-03-31] MEDS: cephALEXin 500 MG CAP PO SCH ×3 (08:11→21:25)
[2021-03-31] MEDS: FUROSEMIDE 60 MG in SYRINGE 0 ML IV SCH ×2 (08:12→16:36)
[2021-03-31] MEDS: CALCIUM 600MG + VIT D 400 IU TAB PO SCH (08:12)
[2021-03-31] MEDS: guaiFENesin 600 MG TABCR PO SCH ×2 (08:12→21:25)
[2021-03-31] MEDS: predniSONE 20 MG TAB PO SCH ×2 (08:12→21:25)
[2021-03-31] MEDS: APIXABAN 5 MG TABLET PO SCH ×2 (08:12→21:25)
[2021-03-31] MEDS: UMECLIDINIUM/VILANTEROL 62.5/25MCG 7 PUFFS/INHALER INH SCH (08:13)
[2021-03-31] MEDS: FLUTICASONE FUROATE 100MCG 14 PUFFS/INHALER INH SCH (08:13)
[2021-03-31] MEDS: PANTOprazole 40 MG TAB PO SCH (08:13)
[2021-03-31] MEDS: DOXYCYCLINE HYCLATE 100 MG CAP PO SCH ×2 (11:11→21:25)
--- NOTE | 2021-03-31 14:10 | Pulmonology Progress Note ---
Date of Service March 31, 2021 Assessment & Plan (1) Abnormal chest CT: Plan: Impression: 85-year-old male with obstructive lung disease and sleep disordered breathing/overlap syndrome admitted with lower extremity swelling and erythema, possibly due to cellulitis. He has evidence of volume overload on his exam. He has a history of heart failure with preserved ejection fraction. He was noted to have bilateral upper lobe patchy opacities as well as some medias tinal adenopathy and some narrowing of his bronchus intermedius. The differential of the upper lobe opacities would include etiologies such as atypical pulmonary edema, pulmonary hemorrhage, diffuse parenchymal lung disease, interstitial lung disease. Aspiration would be less likely given the location of the infiltrates. He is clinically improved with diuresis. Recommendations: 1. Abnormal CT scan: Patient I have elected to pursue a conservative approach with diuresis and clinical follow-up. Please refer to prior notes. 2. Continue diuresis. He is almost 2 L negative over the last 48 hours with no increase in serum creatinine. Would continue attempts at diuresis as tolerated. 3. Continue prednisone 40 mg a day. Anticipate 5-day course. Continue inhalers, currently on Flovent as well as Anoro. Continue Mucinex and hypertonic saline with flutter valve for pulmonary toilet 4. Continue supplemental oxygen titrated to keep oxygen saturations at or above 88%. Oxygenation improved today 5. Continue CPAP at night. 6. Patient will require a follow-up CT scan in approximately 6 to 8 weeks. If these abnormalities persist would have a low threshold for proceeding with PET s dmitriy and consideration for invasive procedures such as bronchoscopy at that point time. 7. Subsegmental PE: Agree with anticoagulation. Would recommend 3 months of anticoagulation given the subsegmental location of the filling defect. Okay to transition to oral anticoagulants at this point time. 8. Pulmonary hypertension: Suspect secondary WHO class II and III. Could be adversely affected by the current PE. Consideration for repeat echocardiogram in 3 to 6 months may be appropriate. Do not think the patient requires vasodilators or right heart catheterization at this point time. Continue diuretics as tolerated. Patient appears to be stable from a pulmonary standpoint close to his baseline. I would be happy to see him back in the clinic with follow-up imaging as noted above. I think his antibiotics can be discontinued from a pulmonary standpoint once he is completed 5 days. Pulmonary will sign off at this point in time. Feel free to contact us if we can be of additional assistance. (2) CHF (congestive heart failure): Heart failure chronicity: acute on chronic Heart failure type: unspecified Qualified Code(s): I50.9 - Heart failure, unspecified (3) Pulmonary embolism: Pulmonary embolism type: unspecified Chronicity: unspecified Acute cor pulmonale presence: unspecified Qualified Code(s): I26.99 - Other pulmonary embolism without acute cor pulmonale Admission and Anticipated Discharge Date Admission Date: March 25, 2021 Subjective Patient seen and examined. He is awake alert and conversant sitting up in a chair at bedside. He is off oxygen. He feels his respiratory status is improved. He is not coughing. He is not expectorating phlegm. He is unclear if he is wheezing. He remains fairly sedentary currently. Review of Systems Review of Systems: Unchanged from prior and negative except as noted in HPI Physical Exam Constitutional: WD/WN, vitals as above Neck: trachea midline, no thyromegaly Respiratory: normal respiratory effort, lungs clear to auscultation no respiratory distress and no labored breathing Auscultation: + wheezes Cardiovascular: Rate/Rhythm: regular rate Heart Sounds: normal S1 and normal S2; no murmur Extremities: + edema Gastrointestinal (Abdomen): normal bowel sounds, soft, nontender, no hepatosplenomegaly Musculoskeletal: Extremities: extremities normal to inspection Skin: no rashes, warm and dry Lymphatic: no cervical lymphadenopathy Results & Data Results & Data ([facility]) Vital Signs (Past 12 Hours) Vital Signs Temp Pulse Pulse Resp BP BP Pulse Ox 03/31/21 11:47 36.6 C 97 H 24 154/85 H 93 03/31/21 09:25 88 03/31/21 07:57 36.4 C L 92 H 24 132/76 98 03/31/21 06:59 94 H 18 95 03/31/21 03:00 36.5 C 88 18 150/92 H 97 I/O: -1218 Laboratory Results 03/31/21 06:51 03/31/21 06:51 Diagnostic Findings No updated imaging PG Care Time/CCT Total # of Minutes Spent Total Time Spent with Patient: Total time spent is greater than 50% in coordination of care (as documented) at patient's floor/unit and/or counseling patient: Coding Level of Care Code 23881 Subseq Hosp Care Lvl [address] R93.89 CHF (congestive heart failure) I50.9 Heart failure chronicity: acute on chronic Heart failure type: unspecified Pulmonary embolism I26.99 Pulmonary embolism type: unspecified Chronicity: unspecified Acute cor pulmonale presence: unspecified
--- NOTE | 2021-03-31 21:07 | Hospitalist Progress Note ---
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 inflammatory? other? 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 autoimmune disease? still remains on b/l anterior thighs despite diuresis, prednisone, etc continue to follow (13) DVT prophylaxis: Plan: 1. cellulitis - cont keflex with doxy x 5 days then stop. day #1/5 today. 2. ?bacterial pneumonia b/l upper lobes - s/p 5-day course of rocephin, now discontinued. s/p 6 days of IV vanco - now stopped. will be on doxy for #1 -- this will provide some MRSA coverage of lungs and aty pical coverage. 3. cont PO prednisone for COPD. last dose TONIGHT then stop. 4. mouth soreness - magic mouthwash qid swish/spit. this issue seems resolved. oral exam today wnl. 5. cont PT, OT. last set of notes indicate he can go home with HH at discharge. 6. cont diuresis with lasix 60mg am, 60mg afternoon. fluid restrict to 1500cc/day. 7. cont eliquis 10mg BID x 7 days, then 5mg BID thereafter. plan 3 months of Rx for MING pulmonary embolus. day #2 today of the 10mg dose. 8. labs in am. updated by phone 03/29, and at bedside today Admission and Anticipated Discharge Date Admission Date: March 25, 2021 Subjective patient feeling well today no complaints eating well less dyspnea less cough legs feeling good remains in RA during the day; using NC O2 at HS (does this at home as well) tele with NSR or sinus tach low 100s no dysrhythmia Review of Systems Constitutional: no fever, no chills, no fatigue and no anorexia Respiratory: + cough and + wheezing; no hemoptysis Cardiovascular: + edema; no chest pain and no orthopnea Gastrointestinal: no abdominal pain, no nausea, no vomiting and no diarrhea/loose stools Physical Exam Constitutional: no acute distress and no altered mental status ENMT: external ear and nose normal, oropharynx normal (no thrush plaques seen ) Respiratory: no respiratory distress Auscultation: + crackles (Bases - no change today) and + wheezes (b/l - no change today ) Cardiovascular: Rate/Rhythm: regular rate and + irregularly irregular Heart Sounds: normal S1 and normal S2; no murmur Vessels: posterior tibial pulses present and dorsalis pedis pulses present; no JVD Extremities: + edema (2+ edema b/l; minimal amount of unchanged hematoma left lateral distal leg ) Gastrointestinal (Abdomen): normal bowel sounds, soft, nontender, no hepatosplenomegaly Skin: 1. resolved cellulitis RLE nielsen. 2. minimal cellulitis left nielsen. hyperpigmented skin on the superior most portion of the pink skin region on nielsen - this has improved from previous. mild hematoma on left lateral nielsen - no changes. 3. no warmth either leg. 4. still with mild mottling b/l thighs, L>R Psychiatric: A+Ox3, euthymic affect Results & Data Results & Data ([facility]) Vital Signs (Past 12 Hours) Vital Signs Temp Pulse Pulse Resp BP Pulse Ox 03/31/21 19:38 76 18 91 03/31/21 19:30 36.5 C 99 H 18 142/91 H 94 03/31/21 15:09 36.9 C 94 H 18 134/80 93 03/31/21 14:57 96 H 03/31/21 11:47 36.6 C 97 H 24 154/85 H 93 03/31/21 09:25 88 Laboratory Results Laboratory Results - last 24 hr 03/31/21 03/31/21 06:51 06:51 WBC 15.75 H RBC 3.91 L Hgb 11.2 L Hct 35.6 L MCV 91.0 MCH 28.6 MCHC 31.5 L RDW Std Deviation 45.8 RDW Coeff of Jordan 13.9 Plt Count 363 MPV 11.1 H Sodium 141 Potassium 3.7 Chloride 108 H Carbon Dioxide 29 Anion Gap 5.0 BUN 29 H Creatinine 0.97 Est Cr Clr Drug Dosing 65.8 Est GFR ( Amer) 82.7 Est GFR (Non-Af Amer) 71.4 BUN/Creatinine Ratio 29.8 H Glucose 112 H Calcium 8.3 L PG Care Time/CCT Total # of Minutes Spent Total Time Spent with Patient: Total time spent is greater than 50% in coordination of care (as documented) at patient's floor/unit and/or counseling patient: Coding Level of Care Code 50271 Subseq Hosp Care Lvl 3 Diagnoses Cellulitis L03.119 Site of cellulitis: extremity Site of cellulitis of extremity: lower extremity Laterality: unspecified laterality Pulmonary embolism I26.99 Pulmonary embolism type: unspecified Chronicity: unspecified Acute cor pulmonale presence: unspecified Sepsis A41.9 Sepsis type: sepsis due to unspecified organism Sepsis acute organ dysfunction status: unspecified S/P hip hemiarthroplasty Z96.649 Diastolic CHF I50.32 Heart failure chronicity: chronic Hypertension I10 Hypertension type: essential hypertension COPD (chronic obstructive pulmonary disease) 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 PRISCILA (obstructive sleep apnea) G47.33 Hypothyroidism (acquired) E03.[address] R93.89 Lymphedema I89.0 Livedo reticularis R23.1 DVT prophylaxis Z29.9 (1) Cellulitis Site of cellulitis: extremity Site of cellulitis of extremity: lower extremity Laterality: unspecified laterality Qualified Code(s): L03.119 - Cellulitis of unspecified part of limb (2) Pulmonary embolism Pulmonary embolism type: unspecified Chronicity: unspecified Acute cor pulmonale presence: unspecified Qualified Code(s): I26.99 - Other pulmonary embolism without acute cor pulmonale (3) Sepsis Sepsis type: sepsis due to unspecified organism Sepsis acute organ dysfunction status: unspecified Qualified Code(s): A41.9 - Sepsis, unspecified organism (4) Diastolic CHF Heart failure chronicity: chronic Qualified Code(s): I50.32 - Chronic diastolic (congestive) heart failure (5) Hypertension Hypertension type: essential hypertension Qualified Code(s): I10 - Essential (primary) hypertension (6) COPD (chronic obstructive pulmonary disease) COPD type: emphysema Emphysema type: unspecified Qualified Code(s): J43.9 - Emphysema, unspecified
[2021-03-31] MEDS: VERAPAMIL HCL 180 MG TABCR PO SCH (21:26)
[2021-04-01] MEDS: LEVOTHYROXINE SODIUM 150 MCG TABLET PO SCH (06:42)
[2021-04-01] MEDS: SODIUM CHLOR 7% 4 ML NEB NEB SCH ×2 (07:36→19:20)
[2021-04-01] MEDS: ADVANCED PROBIOTIC 1250 MG CAPSULE PO SCH (08:14)
[2021-04-01] MEDS: APIXABAN 5 MG TABLET PO SCH ×2 (08:14→21:50)
[2021-04-01] MEDS: cephALEXin 500 MG CAP PO SCH ×3 (08:14→21:51)
[2021-04-01] MEDS: PANTOprazole 40 MG TAB PO SCH (08:14)
[2021-04-01] MEDS: guaiFENesin 600 MG TABCR PO SCH ×2 (08:15→21:53)
[2021-04-01] MEDS: CALCIUM 600MG + VIT D 400 IU TAB PO SCH (08:15)
[2021-04-01] MEDS: FLUTICASONE FUROATE 100MCG 14 PUFFS/INHALER INH SCH (08:16)
[2021-04-01] MEDS: UMECLIDINIUM/VILANTEROL 62.5/25MCG 7 PUFFS/INHALER INH SCH (08:17)
[2021-04-01] MEDS: FUROSEMIDE 60 MG in SYRINGE 0 ML IV SCH ×2 (08:17→16:45)
[2021-04-01] MEDS: DOXYCYCLINE HYCLATE 100 MG CAP PO SCH ×2 (08:17→21:52)
[2021-04-01] MEDS: ACETAMINOPHEN 325 MG TAB PO PRN (09:44)
--- NOTE | 2021-04-01 09:48 | Hospitalist Progress Note ---
Date of Service April 01, 2021 Assessment & Plan (1) Cellulitis: Plan: b/l legs - shins Appears as venous status dermatitis changes at present, patient reports much improved since admission Will monitor small hematoma on left leg now on Eliquis s/p 5 days of IV rocephin, now switched to Keflex s/p 6 days of IV vanco - now switched to doxycycline cont keflex with doxy x 5 days then stop. day #1/5 today. 8. labs in am. updated by phone 03/29, and at bedside today (2) Pulmonary embolism: Plan: MING b/l LE venous duplex neg for DVT recent right hip ORIF for hip fracture cont eliquis 10mg BID x 7 days, then 5mg BID thereafter. plan 3 months of Rx for MING pulmonary embolus. day #3 today of the 10mg dose. 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 (8) Acute heart failure with preserved ejection fraction: Plan: cont diuresis with lasix 60mg am, 60mg afternoon. fluid restrict to 1500cc/day. BUN increasing however this may be due to steroids. Cr stable. Patient reports urine output has dropped off with lasix today. (9) Hematoma of left lower leg: Plan: Continue to monitor while on Eliquis. If expanding may need to discontinue for a few days. (10) PRISCILA (obstructive sleep apnea): Plan: on CPAP with 2 L O2 (11) Hypothyroidism (acquired): Plan: TSH wnl 01/2021 (12) Abnormal chest CT: Plan: b/l upper lobe infiltrates, with some new infiltration since 02/26/[address] Burt's consultation Possible pneumonia - doxy + ceftriaxone/keflex as above inflammatory? other? most recent cxr continues to show these upper lobe infiltrates see Dr Burt's note - he likely will need repeat CT chest in 6-8 weeks with plans for PET-CT or bronch if these areas persist (13) Lymphedema: Plan: chronic for several decades no DVT on duplex studies (14) Livedo reticularis: Plan: b/l thighs - suspected patient just noted this in the last couple of weeks with high sed rate -- vasculitis?? autoimmune disease? still remains on b/l anterior thighs despite diuresis, prednisone, etc continue to follow (15) DVT prophylaxis: Plan: Eliquis as above Admission and Anticipated Discharge Date Admission Date: March 25, 2021 Subjective Less shortness of breath. No chest pain. Feeling well. Does note some pain on lateral left calf. Sinus tachy in 140-150s with minimal exertion but otherwise in 90s at rest. Physical Exam Constitutional: well developed and well nourished; no acute distress and no altered mental status Eyes: + anicteric sclerae; normal pupil size ENMT: external ear and nose normal, oropharynx normal Respiratory: normal respiratory effort; no respiratory distress Auscultation: + diminished lung sounds (bibasal) and + crackles (to mid-zone); no wheezes Cardiovascular: Rate/Rhythm: regular rate and regular rhythm Heart Sounds: no murmur Vessels: no JVD Extremities: + edema (2+ edema b/l; hematoma left lateral distal leg (reported on prior exams)) Gastrointestinal (Abdomen): normal bowel sounds, soft, nontender, no hepatosplenomegaly Skin: B/L venous dematitis changes. No warmth to either leg. Mild hematoma on left lateral leg (noted on prior exams) Neurologic: awake; not confused Psychiatric: A+Ox3, euthymic affect Results & Data Results & Data ([facility]) Vital Signs (Past 12 Hours) Vital Signs Temp Pulse Pulse Resp BP BP Pulse Ox 04/01/21 08:40 36.5 C 104 H 18 152/89 H 95 04/01/21 08:00 89 04/01/21 07:32 96 H 18 97 04/01/21 03:00 36.8 C 82 19 148/83 H 97 03/31/21 23:42 101 H 03/31/21 23:01 36.8 C 95 H 19 162/92 H 92 PG Care Time/CCT Total # of Minutes Spent Total Time Spent with Patient: Total time spent is greater than 50% in coordination of care (as documented) at patient's floor/unit and/or counseling patient: Coding Level of Care Code 93662 Subseq Hosp Care Lvl 2 Diagnoses Cellulitis L03.119 Laterality: unspecified laterality Site of cellulitis: extremity Site of cellulitis of extremity: lower extremity Pulmonary embolism I26.99 Acute cor pulmonale presence: unspecified Chronicity: unspecified Pulmonary embolism type: unspecified Sepsis A41.9 Sepsis acute organ dysfunction status: unspecified Sepsis type: sepsis due to unspecified organism S/P hip hemiarthroplasty Z96.649 Diastolic CHF I50.32 Heart failure chronicity: chronic Hypertension I10 Hypertension type: essential hypertension COPD (chronic obstructive pulmonary disease) 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 PRISCILA (obstructive sleep apnea) G47.33 Hypothyroidism (acquired) E03.[address] R93.89 Lymphedema I89.0 Livedo reticularis R23.1 DVT prophylaxis Z29.9 Acute heart failure with preserved ejection fraction I50.31 Hematoma of left lower leg S80.12XA (1) Diastolic CHF Heart failure chronicity: chronic Qualified Code(s): I50.32 - Chronic diastolic (congestive) heart failure (2) Cellulitis Laterality: unspecified laterality Site of cellulitis: extremity Site of cellulitis of extremity: lower extremity Qualified Code(s): L03.119 - Cellulit is of unspecified part of limb (3) Sepsis Sepsis acute organ dysfunction status: unspecified Sepsis type: sepsis due to unspecified organism Qualified Code(s): A41.9 - Sepsis, unspecified organism (4) COPD (chronic obstructive pulmonary disease) COPD type: emphysema Emphysema type: unspecified Qualified Code(s): J43.9 - Emphysema, unspecified (5) Pulmonary embolism Acute cor pulmonale presence: unspecified Chronicity: unspecified Pulmonary embolism type: unspecified Qualified Code(s): I26.99 - Other pulmonary embolism without acute cor pulmonale (6) Hypertension Hypertension type: essential hypertension Qualified Code(s): I10 - Essential (primary) hypertension
[2021-04-01] MEDS: VERAPAMIL HCL 180 MG TABCR PO SCH (21:55)
[2021-04-02] MEDS: LEVOTHYROXINE SODIUM 150 MCG TABLET PO SCH (05:37)
[2021-04-02] MEDS: SODIUM CHLOR 7% 4 ML NEB NEB SCH (07:06)
[2021-04-02 08:09] LABS: Basophils # (auto) 0.02 K/uL (0-0.2); Basophils % (auto) 0.1 %; Eosinophils # (auto) 0.05 K/uL (0-0.5); Eosinophils % (auto) 0.3 %; Hematocrit (blood only) 37.8 % (42-52); Hemoglobin 11.9 g/dL (14.0-18.0); Immature Granulocytes # (auto) 0.47 K/uL (0.00-0.02); Immature Granulocytes % (auto) 3.1 %; Lymphocytes # (auto) 1.47 K/uL (1.2-3.4); Lymphocytes % (auto) 9.7 %; Mean Corpuscular Hemoglobin 29.2 pg (25-34); Mean Corpuscular Hgb Conc 31.5 g/dL (32-36); Mean Corpuscular Volume 92.6 fL (80-100); Mean Platelet Volume 11.2 fL (7.4-10.4); Monocytes # (auto) 1.98 K/uL (0.11-0.59); Monocytes % (auto) 13.1 %; Neutrophils % (auto) 73.7 %; Platelet Count 351 K/uL (130-400); RDW Coefficient of Variation 14.2 % (11.5-14.5); RDW Standard Deviation 48.2 fL (36.4-46.3); Red Blood Count 4.08 M/uL (4.7-6.1); White Blood Count 15.09 K/uL (4.8-10.8)
[2021-04-02 08:27] VITALS: TEMP 97.7
[2021-04-02 08:36] LABS: BUN Creatinine Ratio 34.3 (10-20); Calcium 8.4 mg/dl (8.5-10.1); Creatinine Clr Calc Pharmacy 63.4 ml/min; Est GFR (African American) 80.7 ml/min; Est GFR (Non-African American) 69.6 ml/min; Potassium 3.2 mmol/L (3.5-5.1)
[2021-04-02] MEDS: APIXABAN 5 MG TABLET PO SCH (09:32)
[2021-04-02] MEDS: cephALEXin 500 MG CAP PO SCH ×2 (09:33→12:59)
[2021-04-02] MEDS: CALCIUM 600MG + VIT D 400 IU TAB PO SCH (09:33)
[2021-04-02] MEDS: ADVANCED PROBIOTIC 1250 MG CAPSULE PO SCH (09:34)
[2021-04-02] MEDS: guaiFENesin 600 MG TABCR PO SCH (09:34)
[2021-04-02] MEDS: DOXYCYCLINE HYCLATE 100 MG CAP PO SCH (09:36)
[2021-04-02] MEDS: PANTOprazole 40 MG TAB PO SCH (09:37)
[2021-04-02] MEDS: UMECLIDINIUM/VILANTEROL 62.5/25MCG 7 PUFFS/INHALER INH SCH (09:38)
[2021-04-02] MEDS: FLUTICASONE FUROATE 100MCG 14 PUFFS/INHALER INH SCH (09:39)
[2021-04-02] MEDS: guaiFENesin/DEXTROM SYRUP 100MG/10MG 5ML UDC PO PRN (12:05)
[2021-04-02 12:19] VITALS: BP 125/73; O2SAT 92
--- NOTE | 2021-04-02 13:58 | Discharge Summary ---
Date of Service April 02, 2021 Admission HPI Per Admitting Provider 85f YOM with past medical history of: MRSA, GERD, PVD, hypothyroidism, HFpEF, HTN, COPD, PRISCILA, Pneumonia, s/p fracture of right hip repair, subacute PE in MING pulmonary branch. Patient comes in today for 3 day history of worsening lower extremity leg swelling, progressive errythma and pain, and increase in cough. Patient is s/p right hip arthroplasty that went to [facility] for rehab and was discharged to home on . He endorses that he has not had on his MANAN hose or compression stockings for the past week, but noticed increase in swelling and erythema to the legs over the past 3 days. This is associated with felling chilled. He feels as his breathing is about the same and no change in his dyspnea, cough, or sputum production. In the EMD he received routing labs, CXR, ECG, performed. He was given 40mg IV Lasix, 1GM Ceftriaxone, and albumin. Patient will be admitted to PCU for lower extremity cellulitis treatment, intravascular repleted through PM, following of biomarkers. Blood cultures being obtained(after abx administration), CRP, Lactate, ESR and PCT. Admission Exam Per Admitting Provider General: awake, alert, no apparent distress Head: Normocephalic, atraumatic ENT: PERRL, EOMI, no pharyngeal exudate, mucous membranes moist Neuro: AAO x 3, speech clear and appropriate, strength intact bilaterally 5/5, sensation intact and equal all extremities and dermatomes, no pronator drift Chest: equal rise and fall of the chest, no accessory muscle use, no heaves or thrills, Clear to auscultation, on room air, Cardiac: Regular rate and rhythm, telemetry reviewed, skin warm dry, cap refill <3 seconds, peripheral pulses +2 no JVD, no murmur, no JVD, no edema GI: NABS x 4 quadrants, soft, nontender to palpation, no rebound, guarding or tenderness, tympany on percussion : Spontaneously voiding, no pain, no CVA tenderness, condom catheter in place Extremities: Normal inspection, no peripheral edema or erythema, calfs nontender to palpation Psych: Normal mood and affect Skin: erythema extending from midfoot proximal to the knees with surrounding mottling to knees Principal Diagnosis Cellulitis Pulmonary embolism Bacterial pneumonia Acute heart failure with preserved ejection fraction Discharge Exam Constitutional well developed and well nourished; no acute distress and no altered mental status Eyes + anicteric sclerae; normal pupil size ENMT external ear and nose normal, oropharynx normal Respiratory normal respiratory effort; no respiratory distress Auscultation: + diminished lung sounds (bibasal) and + crackles (to mid-zone); no wheezes Cardiovascular Rate/Rhythm: regular rate and regular rhythm Heart Sounds: no murmur Vessels: no JVD Extremities: + edema (2+ edema b/l; hematoma left lateral distal leg (reported on prior exams)) Gastrointestinal (Abdomen) normal bowel sounds, soft, nontender, no hepatosplenomegaly Neurologic awake; not confused Psychiatric A+Ox3, euthymic affect Discharge Data Allergies Allergy/AdvReac Type Severity Reaction Status Date / Time clarithromycin Allergy Intermediate RASH Verified 03/25/21 19:25 Consultations 03/25/21 20:37 ED Decision to Admit Stat 03/26/21 19:52 Consult Pulmonology Routine Ordered Studies 03/25/21 21:52 US venous doppler LE BI Routine IMPRESSION: No DVT within the right or left lower extremity. 03/26/21 14:41 CT angio chest PE protocol Routine IMPRESSION: 1. No central pulmonary embolus. Interval development of a small linear filling defect within a segmental branch of the left upper lobe since CT of February 26, 2021. This represents a small pulmonary embolus, likely subacute. 2. Upper lobe airspace opacity, new since chest CT of February 26, 2021. Persistent right upper lobe airspace opacity which also favors an infectious process. Increase in bilateral lower lobe and lingular opacities which are also likely infectious. A follow up chest CT in 3 months to ensure resolution is recommended. 3. Diffuse bronchial wall thickening with multifocal secretions, most pronounced within the bilateral lower lobes and lingula. 4. Emphysema. 5. Small bilateral pleural effusions. 6. Mildly enlarged mediastinal lymph nodes which are likely reactive. These can be assessed on follow-up chest CT. Hospital Course (1) Cellulitis: (2) Pulmonary embolism: (3) Sepsis: (4) S/P hip hemiarthroplasty: (5) Diastolic CHF: (6) Hypertension: (7) COPD (chronic obstructive pulmonary disease): (8) Acute heart failure with preserved ejection fraction: (9) Hematoma of left lower leg: (10) PRISCILA (obstructive sleep apnea): (11) Hypothyroidism (acquired): (12) Abnormal chest CT: (13) Lymphedema: (14) Livedo reticularis: (15) DVT prophylaxis: Isma Wesley is an 85 year old male admitted to [facility] from March 25-2020 due to bilateral leg swelling, pain and cough. He was diagnosed with the following: Cellulitis treated with IV ceftraixone and vancomycin switched to Keflex and doxycycline on discharge for a further three days. Pulmonary embolism treated with intravenous heparin during admission and switched to Eliquis on discharge. Recommend continuation of Eliquis for 3 months per pulmonology recommendations. Bacterial pneumonia seen on CT. Treated with antibiotics as above COPD exacerbation treated with nebulizers and steroids. Steroids course completed prior to discharge. He should have a follow up CT scan in approximately 6 to 8 weeks per pulmonology recommendations. Acute heart failure with preserved ejection fraction treated with increased doses of Lasix and will be discharged on slightly elevated Lasix dosing of 60mg PO daily. Acute hypoxic respiratory failure - Continue to use O2 as needed for exertion and at night. Left leg hematoma - small, not getting worse on heparin or Eliquis, follow up as outpatient Total Time Total Time Spent Total Time Spent (In Minutes): 45 Discharge Plan Discharge Items Patient Disposition: Home - Home Health Services Reason For Visit: CELLULITIS Discharge Diagnosis: Cellulitis Pulmonary embolism Bacterial pneumonia Acute heart failure with preserved ejection fraction Activity: Resume your previous activity Non-emergency contact: Primary Care Provider Call non-emergency contact if: you have any medication questions and your symptoms worsen Follow-up/Referrals: Tyler Hawkins MD [Primary Care Provider] - 04/10/21 2:15 pm Diet: Heart Healthy and Low Sodium (2gm) Addtl Attending Provider Instructions: You were admitted to [facility] from March 25-2020 due to bilateral leg swelling, pain and cough. You were diagnosed with the following: Cellulitis treated with intravenous antibiotics switched to Keflex and doxycycline on discharge. Please continue antibiotics for 3 more days as prescribed. Pulmonary embolism treated with intravenous heparin during admission and switched to Eliquis on discharge. Recommend continuation of Eliquis for 3 hilton hs. Bacterial pneumonia seen on CT. Treated with antibiotics as above COPD exacerbation treated with nebulizers and steroids. Steroids discontinued da y prior to discharge. Use nebulizers as needed. Please have follow up CT scan in approximately 6 to 8 weeks per pulmonology recommendations. Acute heart failure with preserved ejection fraction treated with increased doses of Lasix and will be discharged on slightly elevated Lasix dosing of 60mg PO daily. Continue to use O2 as needed for exertion and at night. Please follow up with you primary care physician in the next 1-2 weeks Pending Studies at Discharge: No Stand-Alone Forms: [facility], Smoking Cessation Medications and DC Order Prescriptions: New apixaban 5 mg tablet See Rx Instructions .ROUTE .COMPLEX Qty: 60 RF: 0 Continued potassium chloride 20 mEq tablet,ER particles/crystals 20 meq PO QAM Qty: 90 RF: 3 Prilosec OTC 20 mg tablet,delayed release (DR/EC) 20 mg PO QAM Qty: 90 RF: 3 verapamil 180 mg tablet extended release 180 mg PO HS Qty: 90 RF: 3 albuterol sulfate [Ventolin HFA] 90 mcg/actuation HFA aerosol inhaler 2 puff inhalation Q4H PRN (Reason: shortness of breath or wheezing) Qty: 8.5 RF: 5 (DME) Oxygen Home Liters Per Minute See Rx Instructions .ROUTE .MEDSUPPLY Qty: 1 RF: 0 ipratropium-albuterol 0.5 mg-3 mg(2.5 mg base)/3 mL solution for nebulization 3 ml INH QID PRN (Reason: shortness of breath) Qty: 1080 RF: 3 benzonatate [Tessalon Perles] 100 mg capsule 100 mg PO TID PRN (Reason: cough) Qty: 12 RF: 0 promethazine-DM 6.25-15 mg/5 mL syrup 5 ml PO Q6H PRN (Reason: cough) Qty: 473 RF: 0 levothyroxine 150 mcg tablet 150 mcg PO QAM RF: 0 calcium carbonate-vitamin D3 [Calcium 500 With D] 500 mg(1,250mg) -400 unit Tablet 1 tab PO QAM RF: 0 magnesium 250 mg Tablet 250 mg PO 3XWK RF: 0 cholecalciferol (vitamin D3) 1,000 unit (25 mcg) tablet 1,000 units PO QAM RF: 0 multivitamin Tablet 1 tab PO QAM RF: 0 Trelegy Ellipta 100-62.5-25 mcg blister with device 1 inh INH QAM RF: 0 acetaminophen [Tylenol Extra Strength] 500 mg Tablet 1,000 mg PO DIRECTED PRN (Reason: Pain) RF: 0 oxycodone 5 mg tablet 2.5 mg PO Q4H PRN (Reason: Pain) RF: 0 psyllium husk 3 gram/5.4 gram Powder 1 tbsp PO DAILY RF: 0 Changed furosemide 40 mg tablet 60 mg PO QAM Qty: 90 RF: 3 Discharge Orders: Discharge Order (Routine); Ordered 04/02/21 Ordered By: Uday Wu Admission Data Admit Date/Time: 03/25/21 21:38 Attending Provider: Uday Wu Admit Provider: Cruzito Lee Primary Care Provider: Tyler Hawkins Other Providers: Jimmie Baires ; Cody Burt Other Interventions: Discharge Summary Assessment (RN) Last Done: 04/02/21 14:01 Coding Level of Care Code D/C DAY MANAGEMENT >30 MINS Diagnoses Cellulitis L03.119 Laterality: unspecified laterality Site of cellulitis: extremity Site of cellulitis of extremity: lower extremity Pulmonary embolism I26.99 Acute cor pulmonale presence: unspecified Chronicity: unspecified Pulmonary embolism type: unspecified Sepsis A41.9 Sepsis acute organ dysfunction status: unspecified Sepsis type: sepsis due to unspecified organism S/P hip hemiarthroplasty Z96.649 Diastolic CHF I50.32 Heart failure chronicity: chronic Hypertension I10 Hypertension type: essential hypertension COPD (chronic obstructive pulmonary disease) 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 Acute heart failure with preserved ejection fraction I50.31 Hematoma of left lower leg S80.12XA PRISCILA (obstructive sleep apnea) G47.33 Hypothyroidism (acquired) E03.[address] R93.89 Lymphedema I89.0 Livedo reticularis R23.1 DVT prophylaxis Z29.9
[2021-04-02 14:02] VITALS: PULSE 105
== END 2021-04-02 14:57 | disposition home health service (06) | DRG 871 ==
LOC: ED 16:54 → 2S 21:38 → SUATTDRO 21:38 → 2S 22:23 → 2N 04-01 18:45

== ENCOUNTER 2021-04-23 13:42 | Inpatient (IN) ==
[2021-04-23 16:06] LABS: Basophils # (auto) 0.01 K/uL (0-0.2); Basophils % (auto) 0.1 %; Eosinophils # (auto) 0.43 K/uL (0-0.5); Eosinophils % (auto) 3.5 %; Hematocrit (blood only) 36.7 % (42-52); Hemoglobin 11.6 g/dL (14.0-18.0); Immature Granulocytes # (auto) 0.04 K/uL (0.00-0.02); Immature Granulocytes % (auto) 0.3 %; Lymphocytes # (auto) 1.08 K/uL (1.2-3.4); Lymphocytes % (auto) 8.7 %; Mean Corpuscular Hemoglobin 28.4 pg (25-34); Mean Corpuscular Hgb Conc 31.6 g/dL (32-36); Mean Corpuscular Volume 89.7 fL (80-100); Mean Platelet Volume 10.6 fL (7.4-10.4); Monocytes # (auto) 1.57 K/uL (0.11-0.59); Monocytes % (auto) 12.7 %; Neutrophils # (auto) 9.25 K/uL (1.4-6.5); Neutrophils % (auto) 74.7 %; Platelet Count 382 K/uL (130-400); RDW Coefficient of Variation 15.3 % (11.5-14.5); RDW Standard Deviation 49.6 fL (36.4-46.3); Red Blood Count 4.09 M/uL (4.7-6.1); White Blood Count 12.38 K/uL (4.8-10.8)
--- NOTE | 2021-04-23 16:10 | XRay Report ---
XR chest 1V portable HISTORY: Shortness of breath. COMPARISON: Chest 04/02/2021. FINDINGS: There are low lung volumes. No pneumothorax. The cardiac silhouette remains mildly enlarged . Small bilateral pleural effusions. There is diffuse interstitial/vascular thickening consistent wit h mild pulmonary edema. Left basilar densities are noted. IMPRESSION: 1. Cardiomegaly with small bilateral pleural effusions and mild interstitial pulmonary edema. 2. Left basilar densities are nonspecific but favor atelectasis from the pleural effusion. A pneumoni a could also have a similar appearance in the appropriate clinical setting. ACT 112: Negative or not required by law. Electronically signed by: Amandeep Monsivais M.D. 04/23/2021 4:09 PM
[2021-04-23 16:33] LABS: Alanine Aminotransferase 11 U/L (12-78); Albumin Level 2.3 gm/dl (3.4-5.0); Aspartate Aminotransferase 16 U/L (15-37); BUN Creatinine Ratio 14.3 (10-20); Blood Urea Nitrogen 17 mg/dl (7-18); Calcium 8.6 mg/dl (8.5-10.1); Carbon Dioxide 27 mmol/L (21-32); Chloride 106 mmol/L (98-107); Creatinine Clr Calc Pharmacy 54.6 ml/min; Est GFR (African American) 64.6 ml/min; Est GFR (Non-African American) 55.8 ml/min; Glucose 98 mg/dl (70-99); Potassium 3.7 mmol/L (3.5-5.1); Sodium 141 mmol/L (136-145)
[2021-04-23 16:38] LABS: Albumin Globulin Ratio 0.5 (0.9-2); Alkaline Phosphatase 66 U/L (45-117); Bilirubin,Total 0.4 mg/dl (0.2-1); Globulin 4.8 gm/dl (2.5-4.0); NT Pro B Type Natriuretic Pept 490 pg/ml (0-1800); Total Protein 7.1 gm/dl (6.4-8.2); Troponin I < 0.015 ng/ml (0-0.045)
[2021-04-23] MEDS ORDERED: VANCOMYCIN CONSULT ACTIVE PRN ×2 (17:16→20:38)
[2021-04-23] MEDS ORDERED: VANCOMYCIN HCL 2,250 MG in SODIUM CHLORIDE 0.9% 500 ML IV ONE (17:16)
--- NOTE | 2021-04-23 17:25 | Emergency Department Note ---
History of Present Illness General Chief complaint: Swelling/Edema to Extremity Stated complaint: SEEPING EDEMA Time Seen by Provider: 04/23/21 15:13 Source: patient Mode of arrival: wheelchair Limitations: no limitations History of Present Illness Provider complaint: Increased leg swelling and weakness Onset (ago): week(s) 2 Severity: moderate Exacerbated By: + movement Associated symptoms: + denies other symptoms Treatments prior to arrival: other This is an 85-year-old male presents emergency department at the direction of his PCP due to concern for increasing volume overload and worsening lower extremity edema and erythema. Patient states he has chronic lower extremity edema, he does typically wear compression stockings. He states last week they increased his Lasix dosing from 40 to 80 mg. He states that has not helped. He states the chronic redness he has to his legs seems worse this week and they also began weeping. Patient denies fevers and chills. States he has been slightly more short of breath and has had a slightly worsening cough. Patient states he wears oxygen at night only, not during the day. Patient was noted here to be hypoxic and was placed on oxygen and reports he is feeling better. Patient does have a history of MRSA. Patient does have a history of COPD and does take breathing treatments daily. Pt seen during a time of high acuity and national emergency pandemic while wearing PPE. Home Medications Medication Instructions Recorded Confirmed Type magnesium 250 mg tablet 250 mg PO [id number] 08/02/18 04/23/21 History cholecalciferol (vitamin D3) 25 1,000 units PO QAM tab 05/30/19 04/23/21 History mcg (1,000 unit) tablet Oxygen Home #1 ea 08/17/19 04/18/21 History ipratropium 0.5 mg-albuterol 3 mg 3 ml INH QID PRN #1080 ml 08/17/19 04/23/21 Rx (2.5 mg base)/3 mL nebulization soln levothyroxine 150 mcg tablet 150 mcg PO QAM 05/07/20 04/23/21 History calcium carbonate 500 mg (1,250 1 tab PO QAM 06/22/20 04/23/21 History mg)-vitamin D3 400 unit tablet (Calcium 500 With D) multivitamin 1 tab PO QAM tab 09/04/20 04/23/21 History omeprazole magnesium 20 mg 20 mg PO QAM #90 tab 10/29/20 04/23/21 Rx tablet,delayed release (Prilosec OTC) potassium chloride 20 mEq 20 meq PO QAM #90 tab 10/29/20 04/23/21 Rx tablet,extended release(part/cryst) verapamil 180 mg tablet,extended 180 mg PO HS #90 tab 12/27/20 04/23/21 Rx release fluticasone fur. 100 mcg-umeclid 1 inh INH QAM 01/16/21 04/23/21 History 62.5 mcg-vilant 25 mcg inhalat.powder (Trelegy Ellipta) albuterol sulfate 90 mcg/actuation 2 puff INHALATION Q4H PRN #8.5 g 02/04/21 04/23/21 Rx aerosol inhaler (Ventolin HFA) benzonatate 100 mg capsule 100 mg PO TID PRN #12 cap 03/21/21 04/23/21 Rx (Tessalon Perles) promethazine-DM 6.25 mg-15 mg/5 mL 5 ml PO Q6H PRN #473 ml 03/21/21 04/23/21 Rx oral syrup acetaminophen 500 mg tablet 1,000 mg PO Q6 PRN 03/25/21 04/23/21 History (Tylenol Extra Strength) oxycodone 5 mg tablet 2.5 mg PO Q4H PRN 03/25/21 04/23/21 History psyllium husk 3 gram/5.4 gram oral 1 tbsp PO DAILY 03/25/21 04/23/21 History powder apixaban 5 mg tablet 5 mg PO BID 04/23/21 04/23/21 History furosemide 40 mg tablet 80 mg PO QAM 04/23/21 04/23/21 History Allergies Allergy/AdvReac Type Severity Reaction Status Date / Time clarithromycin Allergy Intermediate RASH Verified 04/23/21 16:37 Past Med/Surg History Medical History BPH (benign prostatic hyperplasia) Cellulitis of left leg Chronic obstructive pulmonary disease Diastolic CHF Fluid retention in legs GERD (gastroesophageal reflux disease) History of bronchitis History of cellulitis Hypertension Hypothyroidism Hypothyroidism (acquired) Left lumbar radiculopathy Leg length discrepancy Lumbar spinal stenosis On home oxygen therapy 02 2LPM AT HS Osteoarthritis Osteoporosis, unspecified Personal history of MRSA (methicillin resistant Staphylococcus aureus) Pulmonary nodule Sepsis Sleep apnea cpap Spinal stenosis Urethral stricture Vitamin D deficiency Surgical History History of cardiac cath 12/2019 - [place] - increased edema - no stents/angioplasty History of cholecystectomy History of colonoscopy History of herniorrhaphy left inguinal History of partial knee replacement left History of tonsillectomy History of tooth extraction Hx of surgical procedure LEFT FEMUR FX WITH REPAIR Family History Mother Cerebral atherosclerosis Father Diverticulosis Other No significant family history Denies family history of Ovarian cancer Prostate cancer Myocardial infarction Breast cancer Colorectal cancer Social History Smoking Status: Former smoker (1 PACK/DAY, FURTHER DETAILS NOT KNOWN) Tobacco Type: Cigarettes and Pipe packs per day: 1; Years Smoked: 40; Cigarettes Per Day: 20; Number of Years Since Quit: 14; Second Hand Exposure: No; Hx Alcohol Use: No Hx Substance Use: No Preferred Language: [place] Citizen Communication Ability: Effective Visual Impairment: No Limitations Hearing Ability: Normal Underwriting Intern Required: No Beliefs That Will Affect Care: None marital status: Current Living Situation: Spouse current occupational status: retired Feels Safe at Home: Yes Dental Care, Regularly: No Physical Activity Frequency: 1-2 Times per Week Seatbelt Use: always Sunscreen Use: Yes Assistive Devices: None, Denture - Upper, Denture - Lower and Oxygen - Continuous Review of Systems A total of 10 systems reviewed and were otherwise negative All systems reviewed & are unremarkable except as noted in HPI & below Physical Exam Vital Signs Vital Signs - 24 hr 04/23/21 13:45 04/23/21 14:58 04/23/21 16:16 Temperature 36.7 C Temperature Source Temporal Artery Scan Pulse Rate 109 H 105 H 103 H Pulse Rate from SpO2 Sensor Pulse Rhythm Regular Respiratory Rate 20 26 H 23 Respiratory Effort / Characteristics Non-Labored Spontaneous Respiratory Depth Normal Respiratory Pattern Regular Blood Pressure 100/62 123/73 Blood Pressure Mean 74 89 Pulse Oximetry 90 78 L 96 Oxygen Delivery Method Room Air Room Air Nasal Cannula Oxygen Flow Rate 3 Sepsis Recent Fever Within 48 Hours No Sepsis New/Unexplained Change in Mental Status No Sepsis Action Taken by Nursing No Action Required 04/23/21 17:36 04/23/21 18:00 Temperature Temperature Source Pulse Rate 104 H 103 H Pulse Rate from SpO2 Sensor 103 H 96 H Pulse Rhythm Respiratory Rate 21 17 Respiratory Effort / Characteristics Respiratory Depth Respiratory Pattern Blood Pressure 124/71 108/66 Blood Pressure Mean 88 80 Pulse Oximetry 96 97 Oxygen Delivery Method Oxygen Flow Rate Sepsis Recent Fever Within 48 Hours Sepsis New/Unexplained Change in Mental Status Sepsis Action Taken by Nursing GENERAL: alert, well appearing, well nourished, no distress, non-toxic, wearing NC EYE EXAM: normal conjunctiva, PERRL and EOM's grossly intact OROPHARYNX: no exudate, no erythema, lips, buccal mucosa, and tongue normal and mucous membranes are moist NECK: supple, no nuchal rigidity, no adenopathy, non-tender LUNGS: Clear to auscultation. Normal chest wall mechanics, b/l scattered rhonchi and rales HEART: no murmurs, S1 normal and S2 normal ABDOMEN: abdomen soft, non-tender, normo-active bowel sounds, no masses, no rebound or guarding. Pitting edema noted presacral and around lower abdominal wall. BACK: Back is symmetrical on inspection and there is no deformity, no midline tenderness, no CVA tenderness. SKIN: no rashes and no bruising UPPER EXTREMITIES: upper extremities are grossly normal. FROM, nml pulses b/l. LOWER EXTREMITIES: 4+ b/l pitting edema extending up into bilateral proximal lower extremities. Erythema nearly circumferential. Wraps noted to bilateral lower extremities with faint yellow fluid absorbed into the dressing. No open ulcerations. FROM, nml pulses b/l. NEURO EXAM: Normal sensorium, cranial nerves II-XII grossly intact, normal speech, no gross weakness of arms, no gross weakness of legs. No pronator drift. Finger to nose intact. Gross sensation intact. Course Administered Medications Acetaminophen (Acetaminophen 325 Mg Tab) 650 mg PO Q4H PRN PRN Reason: Pain or Fever Stop: 05/23/21 20:37 Last Admin: 04/24/21 21:33 Dose: 650 mg Documented by: [id number] Admin: 04/24/21 04:33 Dose: 650 mg Documented by: [id number] Albuterol (Albut/Ipratrop 3mg/0.5mg Neb 3 Ml Vial) 3 ml NEB QIDR [facility] Stop: 05/23/21 18:59 Last Admin: 04/24/21 19:30 Dose: 3 ml Documented by: [id number] Admin: 04/24/21 15:12 Dose: 3 ml Documented by: [id number] Admin: 04/24/21 11:01 Dose: 3 ml Documented by: [id number] Admin: 04/24/21 07:09 Dose: 3 ml Documented by: [id number] Admin: 04/23/21 19:25 Dose: 3 ml Documented by: [id number] Apixaban (Apixaban 5 Mg Tablet) 5 mg PO BID [facility] Stop: 05/23/21 20:59 Last Admin: 04/24/21 20:42 Dose: 5 mg Documented by: [id number] Admin: 04/24/21 09:10 Dose: 5 mg Documented by: [id number] Admin: 04/23/21 21:35 Dose: 5 mg Documented by: [id number] Benzonatate (Benzonatate 100 Mg Capsule) 100 mg PO TID PRN PRN Reason: cough Stop: 05/23/21 20:37 Last Admin: 04/24/21 21:30 Dose: 100 mg Documented by: [id number] Fluticasone Furoate (Fluticasone Furoate 100mcg 14 Puffs/Inhaler) 1 puffs INH DAILY [facility] Stop: 05/24/21 08:59 Last Admin: 04/24/21 09:11 Dose: 1 puffs Documented by: [id number] Vancomycin HCl 1,250 mg/ (Sodium Chloride) 275 mls @ 200 mls/hr IV Q16H [facility] Stop: 05/01/21 05:59 Last Infusion: 04/24/21 10:47 Dose: 0 mls/hr Documented by: [id number] Admin: 04/24/21 09:06 Dose: 200 mls/hr Documented by: [id number] Ceftriaxone Sodium 2,000 mg/ (Dextrose) 70 mls @ 100 mls/hr IV DAILY@2130 [facility]; Protocol Stop: 04/30/21 21:29 Last Infusion: 04/24/21 21:32 Dose: 0 mls/hr Documented by: [id number] Admin: 04/24/21 20:47 Dose: 100 mls/hr Documented by: [id number] Infusion: 04/24/21 00:57 Dose: 0 mls/hr Documented by: [id number] Admin: 04/24/21 00:13 Dose: 100 mls/hr Documented by: [id number] Furosemide 40 mg/ Syringe 4 mls @ 4 mls/min IV [id number] [facility] Stop: 05/24/21 16:59 Last Admin: 04/24/21 17:39 Dose: 4 mls/min Documented by: [id number] Levothyroxine Sodium (Levothyroxine Sodium 150 Mcg Tablet) 150 mcg PO DAILYBB [facility] Stop: 05/24/21 06:29 Last Admin: 04/24/21 06:27 Dose: 150 mcg Documented by: [id number] Magnesium Oxide (Magnesium Oxide 400 Mg Tab) 400 mg PO MoWeFr@0900 [facility] Stop: 05/24/21 08:59 Last Admin: 04/24/21 09:12 Dose: 400 mg Documented by: [id number] Multivitamins (Multivitamin Tab) 1 tab PO QAM [facility] Stop: 05/24/21 08:59 Last Admin: 04/24/21 09:12 Dose: 1 tab Documented by: [id number] Multivitamins/Minerals (Calcium 600mg + Vit D 400 Iu Tab) 1 tab PO QAM [facility] Stop: 05/24/21 08:59 Last Admin: 04/24/21 09:10 Dose: 1 tab Documented by: [id number] Nystatin (Nystatin Powder 15gm Btl) 1 appln EXT TID [facility] Stop: 05/24/21 13:59 Last Admin: 04/24/21 20:43 Dose: 1 appln Documented by: [id number] Admin: 04/24/21 14:04 Dose: 1 appln Documented by: [id number] Pantoprazole Sodium (Pantoprazole 40 Mg Tab) 40 mg PO QAM [facility] Stop: 05/24/21 08:59 Last Admin: 04/24/21 09:12 Dose: 40 mg Documented by: [id number] Potassium Chloride (Potassium Chloride Crtab 20 Meq Tabcr) 40 meq PO TID [facility] Stop: 05/24/21 13:59 Last Admin: 04/24/21 20:42 Dose: 40 meq Documented by: [id number] Admin: 04/24/21 14:02 Dose: 40 meq Documented by: [id number] Psyllium Hydrophilic Mucilloid (Psyllium 58.6% Powder Packet) 1 pkt PO DAILY [facility] Stop: 05/24/21 08:59 Last Admin: 04/24/21 09:11 Dose: 1 pkt Documented by: [id number] Umeclidinium/Vilanterol (Umeclidinium/Vilanterol 62.5/25mcg 7 Puffs/Inhaler) 1 puffs INH DAILY [facility] Stop: 05/24/21 08:59 Last Admin: 04/24/21 09:12 Dose: 1 puffs Documented by: [id number] Verapamil HCl (Verapamil Hcl 180 Mg Tabcr) 180 mg PO HS [facility] Stop: 05/23/21 20:59 Last Admin: 04/24/21 20:43 Dose: 180 mg Documented by: [id number] Admin: 04/23/21 21:35 Dose: 180 mg Documented by: [id number] Vitamin D (Cholecalciferol 1,000 Units 25 Mcg Tab) 1,000 units PO QAM [facility] Stop: 05/24/21 08:59 Last Admin: 04/24/21 09:10 Dose: 1,000 units Documented by: [id number] Discontinued Medications Furosemide (Furosemide 40 Mg/4 Ml Vial) Confirm Administered Dose 40 mg IV .STK- MED ONE Stop: 04/24/21 17:39 Last Admin: 04/24/21 17:39 Dose: Not Given Documented by: [id number] Vancomycin HCl 2,250 mg/ (Sodium Chloride) 545 mls @ 200 mls/hr IV NOW ONE Stop: 04/23/21 19:59 Last Infusion: 04/23/21 23:20 Dose: 0 mls/hr Documented by: [id number] Admin: 04/23/21 18:31 Dose: 200 mls/hr Documented by: [id number] Albumin Human (Albumin 25%) 12.5 gm in 50 mls @ 50 mls/hr IV Q6H [facility] Stop: 04/24/21 03:59 Last Infusion: 04/24/21 06:05 Dose: 0 mls/hr Documented by: [id number] Admin: 04/24/21 04:27 Dose: 50 mls/hr Documented by: [id number] Infusion: 04/23/21 23:04 Dose: 0 mls/hr Documented by: [id number] Admin: 04/23/21 21:19 Dose: 50 mls/hr Documented by: [id number] Furosemide 40 mg/ Syringe 4 mls @ 4 mls/min IV Q12H [facility] Stop: 05/23/21 20:59 Last Admin: 04/24/21 09:11 Dose: 4 mls/min Documented by: [id number] Admin: 04/23/21 21:19 Dose: 4 mls/min Documented by: [id number] Potassium Chloride (Potassium Chloride Crtab 20 Meq Tabcr) 20 meq PO BID [facility] Stop: 05/23/21 20:59 Last Admin: 04/24/21 09:12 Dose: 20 meq Documented by: [id number] Admin: 04/23/21 21:35 Dose: 20 meq Documented by: [id number] Medical Decision Making Differential Diagnosis Differential diagnosis includees etiologies such as cellulitis, abscess, MRSA infection, DVT, necrotizing fasciitis, dermatitis, drug eruption, as well as others were entertained. Medical Records Attestation: I reviewed the patient's medical records. Home Medications Current Medication List: was personally reviewed by me Laboratory Data Attestation: I reviewed the patient's lab results. Result diagrams: 04/24/21 08:12 04/24/21 08:12 Lab Results 04/23/21 04/23/21 04/23/21 Range/Units 15:42 15:42 15:42 WBC 12.38 H (4.8-10.8) K/uL RBC 4.09 L (4.7-6.1) M/uL Hgb 11.6 L (14.0-18.0) g/dL Hct 36.7 L (42-52) % MCV 89.7 (80-100) fL MCH 28.4 (25-34) pg MCHC 31.6 L (32-36) g/dL RDW Std Deviation 49.6 H (36.4-46.3) fL RDW Coeff of [place] 15.3 H (11.5-14.5) % Plt Count 382 (130-400) K/uL MPV 10.6 H (7.4-10.4) fL Immature Gran % (Auto) 0.3 % Neut % (Auto) 74.7 % Lymph % (Auto) 8.7 % [place] % (Auto) 12.7 % Eos % (Auto) 3.5 % Baso % (Auto) 0.1 % Neut # (Auto) 9.25 H (1.4-6.5) K/uL Lymph # (Auto) 1.08 L (1.2-3.4) K/uL [place] # (Auto) 1.57 H (0.11-0.59) K/uL Eos # (Auto) 0.43 (0-0.5) K/uL Baso # (Auto) 0.01 (0-0.2) K/uL Immature Gran # (Auto) 0.04 H (0.00-0.02) K/uL Sodium 141 (136-145) mmol/L Potassium 3.7 (3.5-5.1) mmol/L Chloride 106 (98-107) mmol/L Carbon Dioxide 27 (21-32) mmol/L Anion Gap 8.0 (3-11) BUN 17 (7-18) mg/dl Creatinine 1.19 (0.6-1.4) mg/dl Est Cr Clr Drug Dosing 54.6 ml/min Est GFR ( Amer) 64.6 ml/min Est GFR (Non-Af Amer) 55.8 ml/min BUN/Creatinine Ratio 14.3 (10-20) Glucose 98 (70-99) mg/dl Calcium 8.6 (8.5-10.1) mg/dl Magnesium 2.0 (1.8-2.4) mg/dl Total Bilirubin 0.4 (0.2-1) mg/dl AST 16 (15-37) U/L ALT 11 L (12-78) U/L Alkaline Phosphatase 66 (45-117) U/L Troponin I < 0.015 (0-0.045) ng/ml NT-Pro-B Natriuret Pep 490 (0-1800) pg/ml Total Protein 7.1 (6.4-8.2) gm/dl Albumin 2.3 L (3.4-5.0) gm/dl Globulin 4.8 H (2.5-4.0) gm/dl Albumin/Globulin Ratio 0.5 L (0.9-2) Procalcitonin 0.24 (0-0.5) ng/ml COVID-19 Eval Order SARS-CoV-2 (PCR) (Negative) 04/23/21 04/23/21 Range/Units 16:15 16:15 WBC (4.8-10.8) K/uL RBC (4.7-6.1) M/uL Hgb (14.0-18.0) g/dL Hct (42-52) % MCV (80-100) fL MCH (25-34) pg MCHC (32-36) g/dL RDW Std Deviation (36.4-46.3) fL RDW Coeff of [place] (11.5-14.5) % Plt Count (130-400) K/uL MPV (7.4-10.4) fL Immature Gran % (Auto) % Neut % (Auto) % Lymph % (Auto) % [place] % (Auto) % Eos % (Auto) % Baso % (Auto) % Neut # (Auto) (1.4-6.5) K/uL Lymph # (Auto) (1.2-3.4) K/uL [place] # (Auto) (0.11-0.59) K/uL Eos # (Auto) (0-0.5) K/uL Baso # (Auto) (0-0.2) K/uL Immature Gran # (Auto) (0.00-0.02) K/uL Sodium (136-145) mmol/L Potassium (3.5-5.1) mmol/L Chloride (98-107) mmol/L Carbon Dioxide (21-32) mmol/L Anion Gap (3-11) BUN (7-18) mg/dl Creatinine (0.6-1.4) mg/dl Est Cr Clr Drug Dosing ml/min Est GFR ( Amer) ml/min Est GFR (Non-Af Amer) ml/min BUN/Creatinine Ratio (10-20) Glucose (70-99) mg/dl Calcium (8.5-10.1) mg/dl Magnesium (1.8-2.4) mg/dl Total Bilirubin (0.2-1) mg/dl AST (15-37) U/L ALT (12-78) U/L Alkaline Phosphatase (45-117) U/L Troponin I (0-0.045) ng/ml NT-Pro-B Natriuret Pep (0-1800) pg/ml Total Protein (6.4-8.2) gm/dl Albumin (3.4-5.0) gm/dl Globulin (2.5-4.0) gm/dl Albumin/Globulin Ratio (0.9-2) Procalcitonin (0-0.5) ng/ml COVID-19 Eval Order Covid19 at [facility] SARS-CoV-2 (PCR) NEGATIVE (Negative) Imaging Data Radiologist's Impression: Chest X-Ray 04/23/21 15:37 XR chest 1V portable HISTORY: Shortness of breath. COMPARISON: Chest 04/02/2021. FINDINGS: There are low lung volumes. No pneumothorax. The cardiac silhouette remains mildly enlarged. Small bilateral pleural effusions. There is diffuse interstitial/vascular thickening consistent with mild pulmonary edema. Left basilar densities are noted. IMPRESSION: 1. Cardiomegaly with small bilateral pleural effusions and mild interstitial pulmonary edema. 2. Left basilar densities are nonspecific but favor atelectasis from the pleural effusion. A pneumonia could also have a similar appearance in the appropriate clinical setting. ACT 112: Negative or not required by law. Electronically signed by: Amandeep Monsivais M.D. 04/23/2021 4:09 PM ECG Data Attestation: I personally reviewed and interpreted this ECG as follows: Indication: + back/shoulder pain Rate (beats per minute): 105 Rhythm: + sinus tachycardia ECG Intervals/blocks: + Normal QRS and + Prolonged QT ECG [place]: + Left axis deviation ECG ST segments: + Normal ST segments MDM Narrative This is an 85-year-old male presents emergency department complaining of increased lower extremity edema, redness, and being instructed by his PCP to come to the emergency room as a precaution due to concern for failure of outpatient treatment and worsening infection. Patient has previously had cellulitis of his lower extremities. Patient does have history of MRSA. C oncerned due to increased edema patient does have evolving anasarca here. Patient does have history of CHF as well as COPD, does require chronic oxygen therapy. Patient typically does not require oxygen during the day however due to noted hypoxia at triage she was placed on oxygen here and did feel markedly improved. Patient started on vancomycin due to history of MRSA. No evidence of bacteremia/sepsis at this time. Patient's Lasix had recently been increased and patient has not had any improvement in his edema. I suspect some of this is from his hypoalbuminemia in addition. Patient's renal function intact, H&H stable compared to prior. No evidence of ACS. Discussed all results with patient and at bedside, they verbalized understanding and were in agreement with plan. Case discussed with hospitalist. An order was placed for continuous cardiac monitoring. The monitor shows a rate of _101_ with _sinus tachycardia_ rhythm. Impression & Plan Cellulitis of both lower extremities, Chronic respiratory failure with hypoxia, Acute on chronic diastolic (congestive) heart failure, Pulmonary edema, Failure of outpatient treatment Discharge Plan Visit Data Chief Complaint: Swelling/Edema to Extremity Stated Complaint: SEEPING EDEMA ED Provider: Chery Pires Discharge Problem: Cellulitis of both lower extremities, Chronic respiratory failure with hypoxia, Acute on chronic diastolic (congestive) heart failure, Pulmonary edema, Failure of outpatient treatment Patient Disposition: Admitted As Inpatient Discharge Instructions Interventions: ED Discharge Assessment Last Done: 04/23/21 20:17 Discharge Problem: Pulmonary edema Qualifiers: Chronicity: chronic Qualified Code(s): J81.1 - Chronic pulmonary edema
--- NOTE | 2021-04-23 18:35 | History & Physical Report ---
Date of Service April 23, 2021 Assessment & Plan (1) Cellulitis of both lower extremities: Plan: Cellulitis of bilateral lower extremities/MRSA/lymphedema/generalized edema- Vancomycin IV per pharmacokinetic monitoring Ceftriaxone 2 g IV daily Furosemide 40 mg IV every 12 hours Albumin 25 g IV every 6 hours x4 doses Increase Klor-Con from 20 mEq every morning to twice daily Follow serial CBC with differential, magnesium and chemistry profile (2) MRSA (methicillin resistant Staphylococcus aureus): Plan: See above (3) Edema due to hypoalbuminemia: Plan: See above (4) Lymphedema: Plan: See above Patient would likely benefit long-term from application of UNNA boots (5) Hypertension: Plan: Continue verapamil (6) Pulmonary embolism: Plan: Continue apixaban (7) GERD (gastroesophageal reflux disease): Plan: Continue omeprazole/pantoprazole (8) COPD (chronic obstructive pulmonary disease): Plan: Duonebs every 4 hours while awake and every 2 hours when necessary. (9) PRISCILA (obstructive sleep apnea): Plan: CPAP at bedtime as needed (10) Hypothyroidism: Plan: Continue levothyroxine 50 mcg daily History of Present Illness Chief Complaint: The patient presents to the emergency department due to worsening lower extremity swelling, seeping, redness and warmth Primary Care Provider: Tyler Hawkins MD The patient is an 85-year-old male with a past medical history including HFpEF, livedo reticularis, lymphedema, pulmonary embolism, sepsis, pulmonary nodule, MRSA, PVD, SIRS, vitamin D deficiency, hypothyroidism, overlap syndrome, GERD, COPD O2 dependency, hypoalbuminemia, gout, BPH with LUTS and hypertension. Patient presents to the emergency department with progressively worsening swelling and seepage of lower extremities along with redness and warmth. His is been bandaging his lower extremities bilaterally. In general he feels fatigued and generally weak. Allergies Allergy/AdvReac Type Severity Reaction Status Date / Time clarithromycin Allergy Intermediate RASH Verified 04/23/21 16:37 Home Medications Medication Instructions Recorded Confirmed Type magnesium 250 mg tablet 250 mg PO 3XWK 08/02/18 04/23/21 History cholecalciferol (vitamin D3) 25 1,000 units PO QAM tab 05/30/19 04/23/21 History mcg (1,000 unit) tablet Oxygen Home #1 ea 08/17/19 04/18/21 History ipratropium 0.5 mg-albuterol 3 mg 3 ml INH QID PRN #1080 ml 08/17/19 04/23/21 Rx (2.5 mg base)/3 mL nebulization soln levothyroxine 150 mcg tablet 150 mcg PO QAM 05/07/20 04/23/21 History calcium carbonate 500 mg (1,250 1 tab PO QAM 06/22/20 04/23/21 History mg)-vitamin D3 400 unit tablet (Calcium 500 With D) multivitamin 1 tab PO QAM tab 09/04/20 04/23/21 History omeprazole magnesium 20 mg 20 mg PO QAM #90 tab 10/29/20 04/23/21 Rx tablet,delayed release (Prilosec OTC) potassium chloride 20 mEq 20 meq PO QAM #90 tab 10/29/20 04/23/21 Rx tablet,extended release(part/cryst) verapamil 180 mg tablet,extended 180 mg PO HS #90 tab 12/27/20 04/23/21 Rx release fluticasone fur. 100 mcg-umeclid 1 inh INH QAM 01/16/21 04/23/21 History 62.5 mcg-vilant 25 mcg inhalat.powder (Trelegy Ellipta) albuterol sulfate 90 mcg/actuation 2 puff INHALATION Q4H PRN #8.5 g 02/04/21 04/23/21 Rx aerosol inhaler (Ventolin HFA) benzonatate 100 mg capsule 100 mg PO TID PRN #12 cap 03/21/21 04/23/21 Rx (Haim Keith) promethazine-DM 6.25 mg-15 mg/5 mL 5 ml PO Q6H PRN #473 ml 03/21/21 04/23/21 Rx oral syrup acetaminophen 500 mg tablet 1,000 mg PO Q6 PRN 03/25/21 04/23/21 History (Tylenol Extra Strength) oxycodone 5 mg tablet 2.5 mg PO Q4H PRN 03/25/21 04/23/21 History psyllium husk 3 gram/5.4 gram oral 1 tbsp PO DAILY 03/25/21 04/23/21 History powder apixaban 5 mg tablet 5 mg PO BID 04/23/21 04/23/21 History furosemide 40 mg tablet 80 mg PO QAM 04/23/21 04/23/21 History Past Med/Surg History Medical History BPH (benign prostatic hyperplasia) Cellulitis of left leg Chronic obstructive pulmonary disease Diastolic CHF Fluid retention in legs GERD (gastroesophageal reflux disease) History of bronchitis History of cellulitis Hypertension Hypothyroidism Hypothyroidism (acquired) Left lumbar radiculopathy Leg length discrepancy Lumbar spinal stenosis On home oxygen therapy 02 2LPM AT HS Osteoarthritis Osteoporosis, unspecified Personal history of MRSA (methicillin resistant Staphylococcus aureus) Pulmonary nodule Sepsis Sleep apnea cpap Spinal stenosis Urethral stricture Vitamin D deficiency Surgical History History of cardiac cath 12/2019 - [place] - increased edema - no stents/angioplasty History of cholecystectomy History of colonoscopy History of herniorrhaphy left inguinal History of partial knee replacement left History of tonsillectomy History of tooth extraction Hx of surgical procedure LEFT FEMUR FX WITH REPAIR Family History Mother Cerebral atherosclerosis Father Diverticulosis Other No significant family history Denies family history of Ovarian cancer Prostate cancer Myocardial infarction Breast cancer Colorectal cancer Social History Smoking Status: Never smoker Tobacco Type: Cigarettes and Pipe packs per day: 1; Years Smoked: 40; Cigarettes Per Day: 20; Number of Years Since Quit: 14; Second Hand Exposure: No; Hx Alcohol Use: No Hx Substance Use: No Preferred Language: Mosotho Communication Ability: Effective Visual Impairment: No Limitations Hearing Ability: Normal Tax Professional Required: No Beliefs That Will Affect Care: None marital status: Current Living Situation: Spouse current occupational status: retired Feels Safe at Home: Yes Dental Care, Regularly: No Physical Activity Frequency: 1-2 Times per Week Seatbelt Use: always Sunscreen Use: Yes Assistive Devices: Glasses, Oxygen - at Night and Walker Review of Systems 2 Review of Systems: The patient denies chest pain, palpitations, cough, lower extremity swelling, sore throat, fevers, chills, sweats, nausea, vomiting, diarrhea , constipation, abdominal pain, pelvic pain, blood in urine or stool, dysuria, urinary frequency or urgency, lightheadedness, dizziness, headache, memory loss, loss of consciousness, focal weakness, numbness or tingling in arms, generalized arthralgias or myalgias, back or neck pain, or night sweats. The review of systems is otherwise negative other than for that already noted above, and at least 10 systems have been reviewed. Physical Exam Physical Exam: The patient is awake, alert and oriented 3, well developed and well nourished, normocephalic and atraumatic, lying in bed and in no acute distress. HEENT--PERRL, EOMI, mucous membranes and oropharynx dry. Neck--supple. No JVD. No bruits. Thyroid normal, trachea midline, no adenopathy. Heart--normal S1 and S2. No murmurs, rubs or gallops. Lungs--Few coarse breath sounds bilaterally. No respiratory distress, no accessory muscle use. Abdomen--normal bowel sounds and soft. Nontender. Nondistended. Morbidly obese Extremities/Dermatologic-3+ bilateral pretibial pitting edema. Moderately severe erythema and warmth. Weeping lesions anterior shins wrapped bilaterally Neurologic--cranial nerves II through XII grossly intact. Rheumatologic--limited range of motion due to body habitus Psychiatric--normal affect. Results & Data Results & Data ([facility]) Vital Signs (Past 12 Hours) Vital Signs Temp Pulse Resp BP Pulse Ox 04/23/21 17:36 104 H 21 124/71 96 04/23/21 16:16 103 H 23 123/73 96 04/23/21 14:58 105 H 26 H 78 L 04/23/21 13:45 98.1 F 109 H 20 100/62 90 Laboratory Results Laboratory Results WBC 12.38 K/uL (4.8-10.8) H 04/23/21 15:42 RBC 4.09 M/uL (4.7-6.1) L 04/23/21 15:42 Hgb 11.6 g/dL (14.0-18.0) L 04/23/21 15:42 Hct 36.7 % (42-52) L 04/23/21 15:42 MCV 89.7 fL (80-100) 04/23/21 15:42 MCH 28.4 pg (25-34) 04/23/21 15:42 MCHC 31.6 g/dL (32-36) L 04/23/21 15:42 RDW Std Deviation 49.6 fL (36.4-46.3) H 04/23/21 15:42 RDW Coeff of Jordan 15.3 % (11.5-14.5) H 04/23/21 15:42 Plt Count 382 K/uL (130-400) 04/23/21 15:42 MPV 10.6 fL (7.4-10.4) H 04/23/21 15:42 Immature Gran % (Auto) 0.3 % 04/23/21 15:42 Neut % (Auto) 74.7 % 04/23/21 15:42 Lymph % (Auto) 8.7 % 04/23/21 15:42 Mayes % (Auto) 12.7 % 04/23/21 15:42 Eos % (Auto) 3.5 % 04/23/21 15:42 Baso % (Auto) 0.1 % 04/23/21 15:42 Neut # (Auto) 9.25 K/uL (1.4-6.5) H 04/23/21 15:42 Lymph # (Auto) 1.08 K/uL (1.2-3.4) L 04/23/21 15:42 Mayes # (Auto) 1.57 K/uL (0.11-0.59) H 04/23/21 15:42 Eos # (Auto) 0.43 K/uL (0-0.5) 04/23/21 15:42 Baso # (Auto) 0.01 K/uL (0-0.2) 04/23/21 15:42 Immature Gran # (Auto) 0.04 K/uL (0.00-0.02) H 04/23/21 15:42 Sodium 141 mmol/L (136-145) 04/23/21 15:42 Potassium 3.7 mmol/L (3.5-5.1) 04/23/21 15:42 Chloride 106 mmol/L (98-107) 04/23/21 15:42 Carbon Dioxide 27 mmol/L (21-32) 04/23/21 15:42 Anion Gap 8.0 (3-11) 04/23/21 15:42 BUN 17 mg/dl (7-18) 04/23/21 15:42 Creatinine 1.19 mg/dl (0.6-1.4) 04/23/21 15:42 Est Cr Clr Drug Dosing 54.6 ml/min 04/23/21 15:42 Est GFR ( Amer) 64.6 ml/min 04/23/21 15:42 Est GFR (Non-Af Amer) 55.8 ml/min 04/23/21 15:42 BUN/Creatinine Ratio 14.3 (10-20) 04/23/21 15:42 Glucose 98 mg/dl (70-99) 04/23/21 15:42 Calcium 8.6 mg/dl (8.5-10.1) 04/23/21 15:42 Magnesium 2.0 mg/dl (1.8-2.4) 04/23/21 15:42 Total Bilirubin 0.4 mg/dl (0.2-1) 04/23/21 15:42 AST 16 U/L (15-37) 04/23/21 15:42 ALT 11 U/L (12-78) L 04/23/21 15:42 Alkaline Phosphatase 66 U/L (45-117) 04/23/21 15:42 Troponin I < 0.015 ng/ml (0-0.045) 04/23/21 15:42 NT-Pro-B Natriuret Pep 490 pg/ml (0-1800) 04/23/21 15:42 Total Protein 7.1 gm/dl (6.4-8.2) 04/23/21 15:42 Albumin 2.3 gm/dl (3.4-5.0) L 04/23/21 15:42 Globulin 4.8 gm/dl (2.5-4.0) H 04/23/21 15:42 Albumin/Globulin Ratio 0.5 (0.9-2) L 04/23/21 15:42 Procalcitonin 0.24 ng/ml (0-0.5) 04/23/21 15:42 COVID-19 Eval Order Covid19 at [facility] [place] 04/23/21 16:15 SARS-CoV-2 (PCR) NEGATIVE (Negative) 04/23/21 16:15 Impressions Chest X-Ray 04/23/21 15:37 XR chest 1V portable HISTORY: Shortness of breath. COMPARISON: Chest 04/02/2021. FINDINGS: There are low lung volumes. No pneumothorax. The cardiac silhouette remains mildly enlarged. Small bilateral pleural effusions. There is diffuse interstitial/vascular thickening consistent with mild pulmonary edema. Left basilar densities are noted. IMPRESSION: 1. Cardiomegaly with small bilateral pleural effusions and mild interstitial pulmonary edema. 2. Left basilar densities are nonspecific but favor atelectasis from the pleural effusion. A pneumonia could also have a similar appearance in the appropriate clinical setting. ACT 112: Negative or not required by law. Electronically signed by: Amandeep Monsivais M.D. 04/23/2021 4:09 PM Code Status & VTE Plan Code Status Full code VTE Prophylaxis Plan VTE Prophylaxis will be ordered: Yes PG Care Time/CCT Total # of Minutes Spent Total Time Spent with Patient: Total time spent is greater than 50% in coordination of care (as documented) at patient's floor/unit and/or counseling patient: Coding Level of Care Code 68059 Initial Inpt Care Lvl 3 Diagnoses Pulmonary embolism I26.99 Pulmonary embolism type: unspecified Chronicity: unspecified Acute cor pulmonale presence: unspecified Cellulitis of both lower extremities L03.115; L03.116 MRSA (methicillin resistant Staphylococcus aureus) A49.02 Hypothyroidism E03.9 Hypothyroidism type: unspecified GERD (gastroesophageal reflux disease) K21.9 Esophagitis presence: esophagitis presence not specified COPD (chronic obstructive pulmonary disease) 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 Hypertension I10 Hypertension type: essential hypertension Lymphedema I89.0 PRISCILA (obstructive sleep apnea) G47.33 Edema due to hypoalbuminemia E88.09 (1) Pulmonary embolism Pulmonary embolism type: unspecified Chronicity: unspecified Acute cor pulmonale presence: unspecified Qualified Code(s): I26.99 - Other pulmonary embolism without acute cor pulmonale (2) Hypothyroidism Hypothyroidism type: unspecified Qualified Code(s): E03.9 - Hypothyroidism, unspecified (3) GERD (gastroesophageal reflux disease) Esophagitis presence: esophagitis presence not specified Qualified Code(s): K21.9 - Gastro-esophageal reflux disease without esophagitis (4) COPD (chronic obstructive pulmonary disease) COPD type: emphysema Emphysema type: unspecified Qualified Code(s): J43.9 - Emphysema, unspecified (5) Hypertension Hypertension type: essential hypertension Qualified Code(s): I10 - Essential (primary) hypertension
[2021-04-23] MEDS: ALBUT/IPRATROP 3MG/0.5MG NEB 3 ML VIAL NEB SCH (19:25)
[2021-04-23] MEDS ORDERED: oxyCODONE HCL IR 5 MG TAB (IMMEDIATE RELEASE) PO PRN (20:38)
[2021-04-23] MEDS ORDERED: ONDANSETRON INJ 2 MG/ML 2 ML VIAL IV PRN (20:38)
[2021-04-23] MEDS ORDERED: BENZONATATE 100 MG CAPSULE PO PRN (20:38)
[2021-04-23] MEDS ORDERED: ACETAMINOPHEN 500 MG TAB PO PRN (20:41)
[2021-04-23] MEDS ORDERED: PROMETHAZINE HCL SYRUP 6.25 MG/5 ML PO PRN (20:52)
[2021-04-23] MEDS: FUROSEMIDE 40 MG in SYRINGE 0 ML IV SCH (21:19)
[2021-04-23] MEDS: ALBUMIN 25% 12.5 GM/50 ML VIAL IV SCH (21:19)
[2021-04-23] MEDS: POTASSIUM CHLORIDE CRTAB 20 MEQ TABCR PO SCH (21:35)
[2021-04-23] MEDS: APIXABAN 5 MG TABLET PO SCH (21:35)
[2021-04-23] MEDS: VERAPAMIL HCL 180 MG TABCR PO SCH (21:35)
[2021-04-24] MEDS: cefTRIAXone SODIUM 2,000 MG in DEXTROSE 5% 50 ML IV SCH ×2 (00:13→20:47)
[2021-04-24] MEDS: ALBUMIN 25% 12.5 GM/50 ML VIAL IV SCH (04:27)
[2021-04-24] MEDS: ACETAMINOPHEN 325 MG TAB PO PRN ×2 (04:33→21:33)
[2021-04-24] MEDS: LEVOTHYROXINE SODIUM 150 MCG TABLET PO SCH (06:27)
[2021-04-24] MEDS: ALBUT/IPRATROP 3MG/0.5MG NEB 3 ML VIAL NEB SCH ×4 (07:09→19:30)
--- NOTE | 2021-04-24 08:58 | Pharmacy Report ---
Pharmacy Abx Dose Short Note - Date of Service April 24, 2021 - Assessment & Plan Assessment 85 year old M receiving IV Vancomycin + Ceftriaxone for treatment of bilateral lower extremity cellulitis. Pt was therapeutic last month on Vancomycin 1250mg IV Q18h, will continue similar dosing based on current renal function. Also treated with IV Doxy and Ceftriaxone during admission last month for cellulitis. Hx MRSA BC pending, afebrile, WBC 12.38 Plan Vancomycin * 2250mg IV (21mg/kg) x1 dose on 04/23 at 1830, then * 1250mg IV Q16H starting today at 0800 * Goal trough level for cellulitis : ~15 mcg/mL * Trough level ordered for: 04/25/21 Ceftriaxone 2g IV Q24H for wt> 80kg Pharmacy will continue to follow and will adjust dose/frequency as necessary. Thank you.
[2021-04-24] MEDS ORDERED: MAGNESIUM OXIDE 400 MG TAB PO SCH (09:00)
[2021-04-24] MEDS ORDERED: NON-FORMULARY MEDICATION (Fluticasone-Umeclidin-Vilanter [Trelegy Ellipta] 100-62.5-25 mcg INH SCH (09:00)
[2021-04-24] MEDS: VANCOMYCIN HCL 1,250 MG in SODIUM CHLORIDE 0.9% 250 ML IV SCH (09:06)
[2021-04-24] MEDS: APIXABAN 5 MG TABLET PO SCH ×2 (09:10→20:42)
[2021-04-24] MEDS: CHOLECALCIFEROL 1,000 UNITS 25 MCG TAB PO SCH (09:10)
[2021-04-24] MEDS: CALCIUM 600MG + VIT D 400 IU TAB PO SCH (09:10)
[2021-04-24] MEDS: FUROSEMIDE 40 MG in SYRINGE 0 ML IV SCH ×2 (09:11→17:39)
[2021-04-24] MEDS: FLUTICASONE FUROATE 100MCG 14 PUFFS/INHALER INH SCH (09:11)
[2021-04-24] MEDS: PSYLLIUM 58.6% POWDER PACKET PO SCH (09:11)
[2021-04-24] MEDS: UMECLIDINIUM/VILANTEROL 62.5/25MCG 7 PUFFS/INHALER INH SCH (09:12)
[2021-04-24] MEDS: PANTOprazole 40 MG TAB PO SCH (09:12)
[2021-04-24] MEDS: MULTIVITAMIN TAB PO SCH (09:12)
[2021-04-24] MEDS: POTASSIUM CHLORIDE CRTAB 20 MEQ TABCR PO SCH ×3 (09:12→20:42)
[2021-04-24 09:15] LABS: Basophils # (auto) 0.02 K/uL (0-0.2); Basophils % (auto) 0.3 %; Eosinophils # (auto) 0.35 K/uL (0-0.5); Eosinophils % (auto) 5.3 %; Hematocrit (blood only) 34.8 % (42-52); Hemoglobin 10.7 g/dL (14.0-18.0); Immature Granulocytes # (auto) 0.01 K/uL (0.00-0.02); Immature Granulocytes % (auto) 0.2 %; Lymphocytes # (auto) 0.83 K/uL (1.2-3.4); Lymphocytes % (auto) 12.5 %; Mean Corpuscular Hemoglobin 27.4 pg (25-34); Mean Corpuscular Hgb Conc 30.7 g/dL (32-36); Monocytes # (auto) 0.69 K/uL (0.11-0.59); Monocytes % (auto) 10.4 %; Neutrophils # (auto) 4.73 K/uL (1.4-6.5); Neutrophils % (auto) 71.3 %; Platelet Count 354 K/uL (130-400); RDW Coefficient of Variation 15.3 % (11.5-14.5); RDW Standard Deviation 49.2 fL (36.4-46.3); Red Blood Count 3.91 M/uL (4.7-6.1); White Blood Count 6.63 K/uL (4.8-10.8)
[2021-04-24 09:46] LABS: Albumin Level 2.4 gm/dl (3.4-5.0); BUN Creatinine Ratio 17.5 (10-20); Calcium 8.2 mg/dl (8.5-10.1); Creatinine Clr Calc Pharmacy 63.4 ml/min; Est GFR (African American) 78.8 ml/min; Magnesium 1.8 mg/dl (1.8-2.4); Potassium 3.4 mmol/L (3.5-5.1)
[2021-04-24 09:49] LABS: Albumin Globulin Ratio 0.6 (0.9-2); Bilirubin,Total 0.6 mg/dl (0.2-1); Globulin 3.9 gm/dl (2.5-4.0); Total Protein 6.3 gm/dl (6.4-8.2)
--- NOTE | 2021-04-24 13:08 | Hospitalist Progress Note ---
Date of Service April 24, 2021 Assessment & Plan (1) Cellulitis of both lower extremities: Plan: Admitted to [facility] in March for same. During that admission - Rx with rocephin/vanco. 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 Cont rocephin/vanco. Chronic lymphedema is a big culprit in this issue. (2) Edema due to hypoalbuminemia: Plan: 2nd to low albumin, lymphedema, acute/chronic diastolic CHF, etc. Cont IV lasix BID. (3) Lymphedema: Plan: See above (4) Hypertension: Plan: Continue verapamil Could be contributing to edema (5) Pulmonary embolism: Plan: Continue apixaban Dx March with such (6) GERD (gastroesophageal reflux disease): Plan: Continue PPI (7) COPD (chronic obstructive pulmonary disease): Plan: cont NC O2. cont diuresis - may have component of pulmonary edema. had very abnormal CT chest 1 month ago with b/l upper lobe infiltrates of uncertain etiology. associated with VERY HIGH sed rate. repeat ESR and CRP. Consider repeat chest CT this admission. cont inhalers/nebs. (8) PRISCILA (obstructive sleep apnea): Plan: CPAP at bedtime (9) Hypothyroidism: Plan: Continue levothyroxine 50 mcg daily TSH January 2021 wnl (10) Chronic respiratory failure with hypoxia: Plan: stable on home O2 amount (11) Acute on chronic diastolic (congestive) heart failure: Plan: cont IV lasix (12) Candidal diaper rash: Plan: nystatin powder TID apply to penile head (balanitis) as well Plan: increase K supplementation due to diuresis will need PT, OT dysuria -- check u/a Admission and Anticipated Discharge Date Admission Date: April 23, 2021 Subjective patient reports breathing is "ok" plenty of cough - some sputum production REID is at baseline wheezing is at baseline c/o dysuria - "I might have a kidney infection" also w/ rash in groin b/l legs with red skin - no change from yesterday per him no pain in legs edema persists Review of Systems Review of Systems: gen - no fevers/chills CV - no chest pain pulm - no hemoptysis abd/gi - no pain, nausea, or emesis Physical Exam Physical Exam: gen - coughing, audible wheezing, NAD; frail-appearing mouth - no thrush neck - no JVD heart - tachy, irregular, s1 s2 lungs - diffuse wheezing b/l; diffuse rales b/l; course BS throughout abd - soft NT ND BS+ - uncircumcised; mild balanitis ext - 3+ edema to the thighs, pulses 2+ b/l skin - candidal rash in groin, penis; b/l cellulitis with warm erythema from ankles to just below the knees; mild extension of pink erythema lateral right thigh psych - a/o x 3 Results & Data Results & Data ([facility]) Vital Signs (Past 12 Hours) Vital Signs Temp Pulse Pulse Resp BP Pulse Ox 04/24/21 11:34 37.0 C 106 H 18 123/78 91 04/24/21 11:02 103 H 16 76 L 04/24/21 08:13 36.7 C 103 H 18 116/67 96 04/24/21 07:57 92 H 04/24/21 07:10 94 H 19 97 04/24/21 04:00 36.8 C 88 18 97/62 L 100 Laboratory Results Laboratory Results - last 24 hr 04/23/21 04/23/21 04/23/21 15:42 15:42 15:42 WBC 12.38 H RBC 4.09 L Hgb 11.6 L Hct 36.7 L MCV 89.7 MCH 28.4 MCHC 31.6 L RDW Std Deviation 49.6 H RDW Coeff of Jordan 15.3 H Plt Count 382 MPV 10.6 H Immature Gran % (Auto) 0.3 Neut % (Auto) 74.7 Lymph % (Auto) 8.7 Bay % (Auto) 12.7 Eos % (Auto) 3.5 Baso % (Auto) 0.1 Neut # (Auto) 9.25 H Lymph # (Auto) 1.08 L Bay # (Auto) 1.57 H Eos # (Auto) 0.43 Baso # (Auto) 0.01 Immature Gran # (Auto) 0.04 H Sodium 141 Potassium 3.7 Chloride 106 Carbon Dioxide 27 Anion Gap 8.0 BUN 17 Creatinine 1.19 Est Cr Clr Drug Dosing 54.6 Est GFR ( Amer) 64.6 Est GFR (Non-Af Amer) 55.8 BUN/Creatinine Ratio 14.3 Glucose 98 Calcium 8.6 Magnesium 2.0 Total Bilirubin 0.4 AST 16 ALT 11 L Alkaline Phosphatase 66 Troponin I < 0.015 C-Reactive Protein NT-Pro-B Natriuret Pep 490 Total Protein 7.1 Albumin 2.3 L Globulin 4.8 H Albumin/Globulin Ratio 0.5 L Procalcitonin 0.24 COVID-19 Eval Order SARS-CoV-2 (PCR) 04/23/21 04/23/21 04/24/21 16:15 16:15 08:12 WBC 6.63 RBC 3.91 L Hgb 10.7 L Hct 34.8 L MCV 89.0 MCH 27.4 MCHC 30.7 L RDW Std Deviation 49.2 H RDW Coeff of Jordan 15.3 H Plt Count 354 MPV 11.0 H Immature Gran % (Auto) 0.2 Neut % (Auto) 71.3 Lymph % (Auto) 12.5 Bay % (Auto) 10.4 Eos % (Auto) 5.3 Baso % (Auto) 0.3 Neut # (Auto) 4.73 Lymph # (Auto) 0.83 L Bay # (Auto) 0.69 H Eos # (Auto) 0.35 Baso # (Auto) 0.02 Immature Gran # (Auto) 0.01 Sodium Potassium Chloride Carbon Dioxide Anion Gap BUN Creatinine Est Cr Clr Drug Dosing Est GFR ( Amer) Est GFR (Non-Af Amer) BUN/Creatinine Ratio Glucose Calcium Magnesium Total Bilirubin AST ALT Alkaline Phosphatase Troponin I C-Reactive Protein NT-Pro-B Natriuret Pep Total Protein Albumin Globulin Albumin/Globulin Ratio Procalcitonin COVID-19 Eval Order Covid19 at [facility] SARS-CoV-2 (PCR) NEGATIVE 04/24/21 04/24/21 08:12 08:12 WBC RBC Hgb Hct MCV MCH MCHC RDW Std Deviation RDW Coeff of Jordan Plt Count MPV Immature Gran % (Auto) Neut % (Auto) Lymph % (Auto) Bay % (Auto) Eos % (Auto) Baso % (Auto) Neut # (Auto) Lymph # (Auto) Bay # (Auto) Eos # (Auto) Baso # (Auto) Immature Gran # (Auto) Sodium 141 Potassium 3.4 L Chloride 108 H Carbon Dioxide 25 Anion Gap 8.0 BUN 18 Creatinine 1.01 Est Cr Clr Drug Dosing 63.4 Est GFR ( Amer) 78.8 Est GFR (Non-Af Amer) 68.0 BUN/Creatinine Ratio 17.5 Glucose 88 Calcium 8.2 L Magnesium 1.8 Total Bilirubin 0.6 AST 11 L ALT 9 L Alkaline Phosphatase 50 Troponin I C-Reactive Protein 9.21 H NT-Pro-B Natriuret Pep Total Protein 6.3 L Albumin 2.4 L Globulin 3.9 Albumin/Globulin Ratio 0.6 L Procalcitonin COVID-19 Eval Order SARS-CoV-2 (PCR) PG Care Time/CCT Total # of Minutes Spent Total Time Spent with Patient: Total time spent is greater than 50% in coordination of care (as documented) at patient's floor/unit and/or counseling patient: Coding Level of Care Code 25150 Subseq Hosp Care Lvl 3 Diagnoses Cellulitis of both lower extremities L03.115; L03.116 Edema due to hypoalbuminemia E88.09 Lymphedema I89.0 Hypertension I10 Hypertension type: essential hypertension Pulmonary embolism I26.99 Acute cor pulmonale presence: unspecified Chronicity: unspecified Pulmonary embolism type: unspecified GERD (gastroesophageal reflux disease) K21.9 Esophagitis presence: esophagitis presence not specified COPD (chronic obstructive pulmonary disease) 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 PRISCILA (obstructive sleep apnea) G47.33 Hypothyroidism E03.9 Hypothyroidism type: unspecified Chronic respiratory failure with hypoxia J96.11 Acute on chronic diastolic (congestive) heart failure I50.33 Candidal diaper rash B37.2; L22 (1) Hypothyroidism Hypothyroidism type: unspecified Qualified Code(s): E03.9 - Hypothyroidism, unspecified (2) COPD (chronic 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
--- NOTE | 2021-04-24 14:01 | Electrocardiogram Report ---
Test Reason : Blood Pressure : / mmHG Vent. Rate : 096 BPM Atrial Rate : 096 BPM P-R Int : 160 ms QRS Dur : 078 ms QT Int : 416 ms P-R-T Axes : 051 -22 004 degrees QTc Int : 525 ms Sinus rhythm Poor R wave progression, consider anterior OH vs. lead placement vs. LVH Prolonged QT Abnormal ECG Confirmed by Stas Patton ([id number]) on 04/24/2021 2:01:17 PM Referred By: Tyler Hawkins Confirmed By:Yefri Patton
[2021-04-24] MEDS: NYSTATIN POWDER 15GM BTL EXT SCH ×2 (14:04→20:43)
--- NOTE | 2021-04-24 14:08 | Electrocardiogram Report ---
Test Reason : Blood Pressure : / mmHG Vent. Rate : 105 BPM Atrial Rate : 105 BPM P-R Int : 142 ms QRS Dur : 080 ms QT Int : 376 ms P-R-T Axes : 025 -28 017 degrees QTc Int : 496 ms Poor data quality, interpretation may be adversely affected Sinus tachycardia Poor R wave progression, consider anterior NM vs. lead placement vs. LVH Abnormal ECG When compared with ECG of 25-MAR-2021 19:32, Premature supraventricular complexes are no longer Present Confirmed by Stas Patton ([id number]) on 04/24/2021 2:07:03 PM Referred By: Tyler Hawkins Confirmed By:Yefri Patton
[2021-04-24] MEDS ORDERED: FUROSEMIDE 40 MG/4 ML VIAL IV ONE (17:38)
[2021-04-24] MEDS: VERAPAMIL HCL 180 MG TABCR PO SCH (20:43)
[2021-04-25] MEDS: VANCOMYCIN HCL 1,250 MG in SODIUM CHLORIDE 0.9% 250 ML IV SCH ×2 (00:01→17:14)
[2021-04-25] MEDS: LEVOTHYROXINE SODIUM 150 MCG TABLET PO SCH (06:03)
[2021-04-25] MEDS: ALBUT/IPRATROP 3MG/0.5MG NEB 3 ML VIAL NEB SCH ×3 (07:00→19:55)
[2021-04-25 08:42] LABS: BUN Creatinine Ratio 13.3 (10-20); Calcium 8.2 mg/dl (8.5-10.1); Creatinine Clr Calc Pharmacy 62.3 ml/min; Est GFR (African American) 77.9 ml/min; Est GFR (Non-African American) 67.2 ml/min; Magnesium 1.6 mg/dl (1.8-2.4); Potassium 3.8 mmol/L (3.5-5.1)
[2021-04-25] MEDS: CHOLECALCIFEROL 1,000 UNITS 25 MCG TAB PO SCH (09:19)
[2021-04-25] MEDS: PSYLLIUM 58.6% POWDER PACKET PO SCH (09:19)
[2021-04-25] MEDS: FUROSEMIDE 40 MG in SYRINGE 0 ML IV SCH ×2 (09:19→16:49)
[2021-04-25] MEDS: MULTIVITAMIN TAB PO SCH (09:20)
[2021-04-25] MEDS: CALCIUM 600MG + VIT D 400 IU TAB PO SCH (09:20)
[2021-04-25] MEDS: APIXABAN 5 MG TABLET PO SCH ×2 (09:20→20:30)
[2021-04-25] MEDS: NYSTATIN POWDER 15GM BTL EXT SCH ×3 (09:20→20:31)
[2021-04-25] MEDS: PANTOprazole 40 MG TAB PO SCH (09:20)
[2021-04-25] MEDS: POTASSIUM CHLORIDE CRTAB 20 MEQ TABCR PO SCH ×3 (09:21→20:31)
[2021-04-25] MEDS: MAGNESIUM SULFATE / D5W 1 GM/100 ML BAG IV SCH ×2 (10:30→12:34)
[2021-04-25 11:34] LABS: Appearance Urine Clear (Clear); Bilirubin Urine Negative (Negative); Blood Urine Negative (Negative); Color Urine Yellow; Glucose Urine UA Negative (Negative); Ketones Urine Negative (Negative); Leukocyte Esterase Urine Negative (Negative); Nitrite Urine Negative (Negative); Protein Urine Negative (Negative); Urobilinogen Urine Negative (Negative)
[2021-04-25] MEDS: MAGNESIUM OXIDE 400 MG TAB PO SCH (11:58)
[2021-04-25] MEDS: FLUTICASONE FUROATE 100MCG 14 PUFFS/INHALER INH SCH (11:59)
[2021-04-25] MEDS: UMECLIDINIUM/VILANTEROL 62.5/25MCG 7 PUFFS/INHALER INH SCH (11:59)
--- NOTE | 2021-04-25 13:28 | Electrocardiogram Report ---
Test Reason : Blood Pressure : / mmHG Vent. Rate : 082 BPM Atrial Rate : 082 BPM P-R Int : 154 ms QRS Dur : 080 ms QT Int : 404 ms P-R-T Axes : 038 -26 013 degrees QTc Int : 472 ms Sinus rhythm with Fusion complexes and Premature atrial complexes Abnormal ECG When compared with ECG of 24-APR-2021 06:34, Fusion complexes are now Present Premature atrial complexes are now Present QT has shortened Confirmed by Stas Patton ([id number]) on 04/25/2021 1:27:55 PM Referred By: Tyler Hawkins Confirmed By:Yefri Patton
[2021-04-25] MEDS ORDERED: VANCOMYCIN TROUGH ONE (15:30)
[2021-04-25] MEDS: BENZONATATE 100 MG CAPSULE PO SCH ×2 (17:14→20:30)
--- NOTE | 2021-04-25 19:18 | Pharmacy Report ---
Pharmacy Abx Dose Short Note - Date of Service April 25, 2021 - Assessment & Plan Assessment 85 year old M receiving Vancomycin + Ceftriaxone for treatment of SST Day # 3 of antimicrobial therapy. Plan Vancomycin * Trough level of 18.8 mcg/mL is therapeutic; however, this level was obtained 1.5 hrs later than indicated therefore true trough is likely higher * BMI is close to 35 putting patient at risk for vancomycin accumulation once stead state is reached. * Will decrease dose and lengthen interval slightly; new regimen: 1000 mg every 18 hours * Start time: 11:00 on 04/26/2021 * Exposure target: AUC24 (range)400-600 mg/L.hr * AUC24,ss: 470 mg/L.hr * PAUC*: 79 % * Ctrough,ss: 15.3 mg/L * Pconc*: 17 % * Tox.: 11 % * Will recheck trough level prior to the 4th dose on 04/28 @ 1630 Pharmacy will continue to follow and will adjust dose/frequency as necessary. Thank you.
[2021-04-25] MEDS: guaiFENesin 600 MG TABCR PO SCH (20:31)
[2021-04-25] MEDS: VERAPAMIL HCL 180 MG TABCR PO SCH (20:33)
[2021-04-25] MEDS: cefTRIAXone SODIUM 2,000 MG in DEXTROSE 5% 50 ML IV SCH (20:36)
--- NOTE | 2021-04-25 22:42 | Hospitalist Progress Note ---
Date of Service April 25, 2021 Assessment & Plan (1) Cellulitis of both lower extremities: Plan: Admitted to [facility] in March for same. During that admission - Rx with rocephin/vanco. Cellulitis improved w/ that combo then. And he is improving once again- legs better today. 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 Cont rocephin/vanco. Chronic lymphedema is a big culprit in this recurrent issue. Cont diuresis as tolerated. (2) Edema due to hypoalbuminemia: Plan: 2nd to low albumin, lymphedema, acute/chronic diastolic CHF, etc. Cont IV lasix BID. daily bmp. (3) Lymphedema: Plan: See above (4) Hypertension: Plan: Continue verapamil Could be contributing to edema (5) Pulmonary embolism: Plan: Continue apixaban Dx March with such Rx - [address] Burt (6) GERD (gastroesophageal reflux disease): Plan: Continue PPI (7) COPD (chronic obstructive pulmonary disease): Plan: cont NC O2. cont diuresis - likely has component of pulmonary edema. had very abnormal CT chest 1 month ago with b/l upper lobe infiltrates of uncertain etiology. associated with VERY HIGH sed rate then (112). 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 if pulmonary exam and symptoms don't improve w/ diuresis then REPEAT CHEST CT this admission (8) PRISCILA (obstructive sleep apnea): Plan: CPAP at bedtime (9) Hypothyroidism: Plan: Continue levothyroxine 50 mcg daily TSH January 2021 wnl (10) Chronic respiratory failure with hypoxia: Plan: stable on home O2 amount (11) Acute on chronic diastolic (congestive) heart failure: Plan: cont IV lasix improving (12) Candidal diaper rash: Plan: nystatin powder TID apply to penile head (balanitis) as well (13) Elevated sed rate: Plan: see #7 above strongly consider repeat chest CT this admission Plan: dysuria improving ua not suggestive of UTI updated at bedside PT, OT Admission and Anticipated Discharge Date Admission Date: April 23, 2021 Subjective patient continues with cough and wheezing he states that throughout the summer his breathing has never really returned to baseline if anything it has been worse, chronically, for much of this summer he is pleased that his edema of the arms/legs is better he thinks his legs look better still eating well tele - sinus tach was at bedside -- asks for PT/OT Review of Systems Constitutional: + fatigue; no fever, no chills and no anorexia Respiratory: + cough, + sputum production and + wheezing; no hemoptysis Cardiovascular: + edema; no chest pain Gastrointestinal: no abdominal pain, no nausea and no vomiting Genitourinary: no dysuria (resolved ) Physical Exam Physical Exam: gen - coughing, audible wheezing, NAD; frail-appearing - but no worse than previous mouth - no thrush neck - no JVD heart - tachy, irregular, s1 s2, no murmur lungs - diffuse wheezing b/l; moderate rales b/l; course BS throughout but airation improved from yesterday abd - soft NT ND BS+ ext - 2-3+ edema to the thighs, pulses 2+ b/l skin - b/l cellulitis with warm, pink erythema from ankles to just below the knees -- improved today; mild extension of pink erythema lateral right thigh but this is improved; background of stasis changes b/l legs; previous (suspected) levido reticularis of thighs not present psych - a/o x 3 Results & Data Results & Data ([facility]) Vital Signs (Past 12 Hours) Vital Signs Temp Pulse Pulse Resp BP BP Pulse Ox 04/25/21 19:56 103 H 18 98 04/25/21 19:26 37.0 C 104 H 20 127/81 94 04/25/21 15:39 105 H 04/25/21 14:57 37.5 C 109 H 16 124/63 90 04/25/21 11:51 36.7 C 104 H 20 124/73 100 04/25/21 11:02 104 H 20 79 L Laboratory Results Laboratory Results - last 24 hr 04/25/21 04/25/21 04/25/21 07:41 07:41 10:35 ESR 93 H Sodium 140 Potassium 3.8 Chloride 109 H Carbon Dioxide 26 Anion Gap 5.0 BUN 14 Creatinine 1.02 Est Cr Clr Drug Dosing 62.3 Est GFR ( Amer) 77.9 Est GFR (Non-Af Amer) 67.2 BUN/Creatinine Ratio 13.3 Glucose 91 Calcium 8.2 L Magnesium 1.6 L Urine Color Yellow Urine Appearance Clear Urine pH 7.0 Ur Specific [place] 1.010 Urine Protein Negative Urine Glucose (UA) Negative Urine Ketones Negative Urine Blood Negative Urine Nitrite Negative Urine Bilirubin Negative Urine Urobilinogen Negative Ur Leukocyte Esterase Negative Vancomycin Trough 04/25/21 16:50 ESR Sodium Potassium Chloride Carbon Dioxide Anion Gap BUN Creatinine Est Cr Clr Drug Dosing Est GFR ( Amer) Est GFR (Non-Af Amer) BUN/Creatinine Ratio Glucose Calcium Magnesium Urine Color Urine Appearance Urine pH Ur Specific [place] Urine Protein Urine Glucose (UA) Urine Ketones Urine Blood Urine Nitrite Urine Bilirubin Urine Urobilinogen Ur Leukocyte Esterase Vancomycin Trough 18.8 PG Care Time/CCT Total # of Minutes Spent Total Time Spent with Patient: Total time spent is greater than 50% in coordination of care (as documented) at patient's floor/unit and/or counseling patient: Coding Level of Care Code 31712 Subseq Hosp Care Lvl 3 Diagnoses Cellulitis of both lower extremities L03.115; L03.116 Edema due to hypoalbuminemia E88.09 Lymphedema I89.0 Hypertension I10 Hypertension type: essential hypertension Pulmonary embolism I26.99 Acute cor pulmonale presence: unspecified Chronicity: unspecified Pulmonary embolism type: unspecified GERD (gastroesophageal reflux disease) K21.9 Esophagitis presence: esophagitis presence not specified COPD (chronic obstructive pulmonary disease) 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 PRISCILA (obstructive sleep apnea) G47.33 Hypothyroidism E03.9 Hypothyroidism type: unspecified Chronic respiratory failure with hypoxia J96.11 Acute on chronic diastolic (congestive) heart failure I50.33 Candidal diaper rash B37.2; L22 Elevated sed rate R70.0 (1) Hypothyroidism Hypothyroidism type: unspecified Qualified Code(s): E03.9 - Hypothyroidism, unspecified (2) COPD (chronic 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
[2021-04-26] MEDS: LEVOTHYROXINE SODIUM 150 MCG TABLET PO SCH (05:36)
[2021-04-26] MEDS: ALBUT/IPRATROP 3MG/0.5MG NEB 3 ML VIAL NEB SCH ×2 (07:30→19:40)
[2021-04-26] MEDS: FUROSEMIDE 40 MG in SYRINGE 0 ML IV SCH ×2 (08:03→16:07)
[2021-04-26] MEDS: PSYLLIUM 58.6% POWDER PACKET PO SCH (08:04)
[2021-04-26] MEDS: APIXABAN 5 MG TABLET PO SCH ×2 (08:04→22:27)
[2021-04-26] MEDS: CHOLECALCIFEROL 1,000 UNITS 25 MCG TAB PO SCH (08:04)
[2021-04-26] MEDS: CALCIUM 600MG + VIT D 400 IU TAB PO SCH (08:04)
[2021-04-26] MEDS: BENZONATATE 100 MG CAPSULE PO SCH ×3 (08:04→22:27)
[2021-04-26] MEDS: ACETAMINOPHEN 325 MG TAB PO PRN (08:04)
[2021-04-26] MEDS: POTASSIUM CHLORIDE CRTAB 20 MEQ TABCR PO SCH ×3 (08:04→22:29)
[2021-04-26] MEDS: MAGNESIUM OXIDE 400 MG TAB PO SCH (08:05)
[2021-04-26] MEDS: PANTOprazole 40 MG TAB PO SCH (08:05)
[2021-04-26] MEDS: UMECLIDINIUM/VILANTEROL 62.5/25MCG 7 PUFFS/INHALER INH SCH (08:05)
[2021-04-26] MEDS: NYSTATIN POWDER 15GM BTL EXT SCH ×3 (08:05→22:28)
[2021-04-26] MEDS: MULTIVITAMIN TAB PO SCH (08:05)
[2021-04-26] MEDS: FLUTICASONE FUROATE 100MCG 14 PUFFS/INHALER INH SCH (08:05)
[2021-04-26] MEDS: guaiFENesin 600 MG TABCR PO SCH ×2 (08:05→22:27)
[2021-04-26 09:05] LABS: BUN Creatinine Ratio 13.7 (10-20); Calcium 8.5 mg/dl (8.5-10.1); Creatinine Clr Calc Pharmacy 59.9 ml/min; Est GFR (African American) 74.3 ml/min; Est GFR (Non-African American) 64.1 ml/min; Magnesium 2.1 mg/dl (1.8-2.4); Potassium 4.3 mmol/L (3.5-5.1)
[2021-04-26] MEDS: VANCOMYCIN HCL 1,000 MG in SODIUM CHLORIDE 0.9% 250 ML IV SCH (10:51)
--- NOTE | 2021-04-26 19:38 | Hospitalist Progress Note ---
Date of Service April 26, 2021 Assessment & Plan (1) Cellulitis of both lower extremities: Plan: Isma is an 85-year-old male with a past medical history of bilateral cellulitis, COPD, diastolic CHF, and chronic lymphedema who presents with evidence of fluid overload and bilateral cellulitis. Bilateral cellulitis Recent admission to [facility] in March 2021 for similar Patient treated with Rocephin/Vanco with improvement at that time Patient currently on Rocephin/Vanco and improving. 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 - No history of Pseudomonas colonization or DM, trial conversion of Keflex/doxycycline tomorrow anticipate 7-day course with extension as needed on clinical progression Chronic lymphedema management as below Continue Lasix 40 mg twice daily, (2) Edema due to hypoalbuminemia: Plan: 2nd to low albumin, lymphedema, acute/chronic diastolic CHF, etc. -Cont IV lasix BID, patient not euvolemic -daily bmp. (3) COPD (chronic obstructive pulmonary disease): Plan: With superimposed pulmonary edema, progressing well Continue nasal cannula oxygen as needed goal greater than 90% Patient with abnormal CT 1 month ago with bilateral pleural infiltrates and very high sed rate. Sed rate downtrending, will to interpret in the setting of acute cellulitis Continue inhalers/nebs Patient with continued O2 requirement, will repeat sed rate and repeat CT chest tomorrow (4) Lymphedema: Plan: See above (5) Hypertension: Plan: Continue verapamil Could be contributing to edema (6) Pulmonary embolism: Plan: -Continue apixaban -Dx March with such -Rx - [address] Burt (7) GERD (gastroesophageal reflux disease): Plan: Continue PPI (8) PRISCILA (obstructive sleep apnea): Plan: CPAP at bedtime (9) Hypothyroidism: Plan: Continue levothyroxine 50 mcg daily TSH January 2021 wnl (10) Chronic respiratory failure with hypoxia: Plan: stable on home O2 amount (11) Acute on chronic diastolic (congestive) heart failure: Plan: cont IV lasix improving (12) Candidal diaper rash: Plan: nystatin powder TID apply to penile head (balanitis) as well (13) Elevated sed rate: Plan: Repeat a.m. CT-chest repeat pending Plan: Per PT when medically ready can return home with home health services Admission and Anticipated Discharge Date Admission Date: April 23, 2021 Poncho Ashby is seen at the bedside this afternoon. he reports he feels well, and the swelling in his legs have improved but is still present. He reports that he is not in pain today, and overall feels well. Reports no shortness of breath at time of assessment. Denies chest pain/chest pressure. Denies fever and chills. Reports that he is so far happy with his progress, and feels 90 to 95% back to his baseline. Is able to walk with PT OT today, see assessment and plan for further Review of Systems Review of Systems: 10 point review of systems negative except as noted in HPI Physical Exam Physical Exam: General: A&Ox3. NAD. Cooperative. HEENT: Atraumatic, normocephalic. Pulm: Bibasilar left greater than right crackles appreciated, moderate air movement. No respiratory distress. Cardiac: Intermittently irregular, mildly tachycardic, -mrg. Radial pulses intact and symmetrical. Abdominal: Nontender, nondistended, soft. BS present. Extremities: Bilateral lower leg thickening, signs of chronic venous stasis, dressings in place clean and dry. Dressings lifted, skin warm and pink bilaterally, minimally tender to the touch. Pitting edema without weeping present. PT pulse 2+ bilaterally. Results & Data Results & Data ([facility]) Vital Signs (Past 12 Hours) Vital Signs Temp Pulse Pulse Resp BP BP Pulse Ox 04/26/21 15:28 36.8 C 107 H 20 120/80 91 04/26/21 15:06 104 H 04/26/21 13:57 90 04/26/21 11:53 36.4 C L 104 H 20 107/73 93 04/26/21 08:00 37.0 C 103 H 20 122/74 90 04/26/21 07:32 37.0 C 103 H 20 122/74 90 04/26/21 07:31 102 H 16 90 04/26/21 07:29 100 H PG Care Time/CCT Total # of Minutes Spent Total Time Spent with Patient: Total time spent is greater than 50% in coordination of care (as documented) at patient's floor/unit and/or counseling patient: Coding Level of Care Code 13023 Subseq Hosp Care Lvl 3 Diagnoses Cellulitis of both lower extremities L03.115; L03.116 Edema due to hypoalbuminemia E88.09 Lymphedema I89.0 Hypertension I10 Hypertension type: essential hypertension Pulmonary embolism I26.99 Pulmonary embolism type: unspecified Chronicity: unspecified Acute cor pulmonale presence: unspecified GERD (gastroesophageal reflux disease) K21.9 Esophagitis presence: esophagitis presence not specified COPD (chronic obstructive pulmonary disease) 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 PRISCILA (obstructive sleep apnea) G47.33 Hypothyroidism E03.9 Hypothyroidism type: unspecified Chronic respiratory failure with hypoxia J96.11 Acute on chronic diastolic (congestive) heart failure I50.33 Candidal diaper rash B37.2; L22 Elevated sed rate R70.0 (1) Hypertension Hypertension type: essential hypertension Qualified Code(s): I10 - Essential (primary) hypertension (2) Pulmonary embolism Pulmonary embolism type: unspecified Chronicity: unspecified Acute cor pulmonale presence: unspecified Qualified Code(s): I26.99 - Other pulmonary embolism without acute cor pulmonale (3) GERD (gastroesophageal reflux disease) Esophagitis presence: esophagitis presence not specified Qualified Code(s): K21.9 - Gastro-esophageal reflux disease without esophagitis (4) COPD (chronic obstructive pulmonary disease) COPD type: emphysema Emphysema type: unspecified Qualified Code(s): J43.9 - Emphysema, unspecified (5) Hypothyroidism Hypothyroidism type: unspecified Qualified Code(s): E03.9 - Hypothyroidism, unspecified
[2021-04-26] MEDS: VERAPAMIL HCL 180 MG TABCR PO SCH (22:30)
[2021-04-26] MEDS: cefTRIAXone SODIUM 2,000 MG in DEXTROSE 5% 50 ML IV SCH (22:47)
[2021-04-27] MEDS: VANCOMYCIN HCL 1,000 MG in SODIUM CHLORIDE 0.9% 250 ML IV SCH ×2 (04:22→23:10)
[2021-04-27 06:08] LABS: Basophils # (auto) 0.02 K/uL (0-0.2); Basophils % (auto) 0.2 %; Eosinophils # (auto) 0.36 K/uL (0-0.5); Eosinophils % (auto) 3.4 %; Hematocrit (blood only) 35.3 % (42-52); Hemoglobin 10.9 g/dL (14.0-18.0); Immature Granulocytes # (auto) 0.04 K/uL (0.00-0.02); Immature Granulocytes % (auto) 0.4 %; Lymphocytes # (auto) 0.99 K/uL (1.2-3.4); Lymphocytes % (auto) 9.4 %; Mean Corpuscular Hemoglobin 27.4 pg (25-34); Mean Corpuscular Hgb Conc 30.9 g/dL (32-36); Mean Corpuscular Volume 88.7 fL (80-100); Mean Platelet Volume 11.2 fL (7.4-10.4); Monocytes # (auto) 1.31 K/uL (0.11-0.59); Monocytes % (auto) 12.4 %; Neutrophils # (auto) 7.82 K/uL (1.4-6.5); Neutrophils % (auto) 74.2 %; Platelet Count 370 K/uL (130-400); RDW Coefficient of Variation 15.1 % (11.5-14.5); RDW Standard Deviation 48.8 fL (36.4-46.3); Red Blood Count 3.98 M/uL (4.7-6.1); White Blood Count 10.54 K/uL (4.8-10.8)
[2021-04-27] MEDS: LEVOTHYROXINE SODIUM 150 MCG TABLET PO SCH (06:26)
[2021-04-27 06:28] LABS: BUN Creatinine Ratio 16.7 (10-20); C Reactive Protein 9.15 mg/dl (0-0.29); Calcium 8.5 mg/dl (8.5-10.1); Est GFR (African American) 71.9 ml/min; Potassium 4.4 mmol/L (3.5-5.1)
--- NOTE | 2021-04-27 07:03 | Hospitalist Progress Note ---
Date of Service April 27, 2021 Assessment & Plan (1) Cellulitis of both lower extremities: Plan: Isma is an 85-year-old male with a past medical history of bilateral cellulitis, COPD, diastolic CHF, and chronic lymphedema who presents with evidence of fluid overload and bilateral cellulitis. Bilateral cellulitis Recent admission to [facility] in March 2021 for similar Patient treated with Rocephin/Vanco with improvement at that time Patient currently on Rocephin/Vanco and improving. 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 - No history of Pseudomonas colonization or DM, antibiotics converted to Unasyn/doxycycline for coverage of anaerobes as noted in my consolidation section, if doing well may convert to Augmentin/doxycycline on discharge Chronic lymphedema management as below Continue Lasix 40 mg twice daily, (2) Lung consolidation: Plan: - CT:C: Emphysema with chronic bronchitis comment tracheobronchial secretions and bibasilar mucous plugging. Biapical airspace opacities appear similar to mildly improved from 03/26/2021, likely on an infectious or inflammatory basis. Persistent bibasilar consolidation with new airspace opacities of the superior segment left lower lobe. Findings are suggestive of pneumonia versus aspiration pneumonitis. Unchanged mediastinal and hilar adenopathy, likely reactive. Small pleural effusions. - CRP approximately [address] re-demonstrates biapical airspace opacities mildly improved, but with persistent bibasilar consolidation and new airspace opacities of the left lower lobe which could be consistent with pneumonia versus aspiration pneumonitis. Patient endorses chronic cough which may have worsened in the last week or 2. Current antibiotic regimen does not cover anaerobes, Rocephin broadened to Unasyn for additional coverage.CRP interpretation complicated by bilateral cellulitis. Patient previously discussed CT findings with pulmonology, low threshold for proceeding with PET scan versus bronchoscopy discussed, patient prefers to proceed with conservative measures but may consider as outpatient pending clinical course. (3) Edema due to hypoalbuminemia: Plan: 2nd to low albumin, lymphedema, acute/chronic diastolic CHF, etc. -Cont IV lasix BID, patient not euvolemic -daily bmp. (4) COPD (chronic obstructive pulmonary disease): Plan: With superimposed pulmonary edema, progressing well Continue nasal cannula oxygen as needed goal greater than 90% Patient with abnormal CT 1 month ago with bilateral pleural infiltrates and very high sed rate. Sed rate previously downtrending,difficult to interpret in the setting of acute cellulitis Continue inhalers/nebs Patient with continued O2 requirement, CT as noted in consolidation section (5) Lymphedema: Plan: See above (6) Hypertension: Plan: Continue verapamil Could be contributing to edema (7) Pulmonary embolism: Plan: -Continue apixaban -Dx March with such -Rx - [address] Burt (8) GERD (gastroesophageal reflux disease): Plan: Continue PPI (9) PRISCILA (obstructive sleep apnea): Plan: CPAP at bedtime (10) Hypothyroidism: Plan: Continue levothyroxine 50 mcg daily TSH January 2021 wnl (11) Chronic respiratory failure with hypoxia: Plan: stable on home O2 amount (12) Acute on chronic diastolic (congestive) heart failure: Plan: cont IV lasix improving (13) Candidal diaper rash: Plan: nystatin powder TID apply to penile head (balanitis) as well Plan: Per PT when medically ready can return home with home health services Admission and Anticipated Discharge Date Admission Date: April 23, 2021 Subjective Mr. Wesley is seen at bedside. He reports he continues to feel "okay ", feels his legs are doing well. He denies pain in his legs or extremities at time of visit. Reports no new cough, endorses that he has a chronic intermittent cough from COPD. On further history he reports he thinks the cough worsened in the last week to month and has become somewhat more frequent, but minimally productive. He denies difficulty eating/swallowing, and denies any aspiration events. Reports that he is aware that there were some opacities on his chest CT scan in March but had not had follow-up on these since.Denies fever, chills overnight. Denies nausea/vomiting. No additional questions or concerns at time of bedside visit Review of Systems Review of Systems: Constitutional: Denies fever, chills, malaise Eyes: Denies vision change ENT: Denies ear pain, sore throat, sinus pain Cardiovascular: Denies Chest pain, chest pressure, palpitations Respiratory: See HPI gastrointestinal: Denies abdominal pain, nausea, vomiting, constipation, diarrhea Genitourinary: Denies dysuria, urinary frequency Musculoskeletal: Denies acute focal weakness, muscle aches/pain, joint aches/pain Integumentary: Versus bilateral leg cellulitis, denies other skin changes. Neurological: Denies headache, numbness, tingling, focal weakness Physical Exam Physical Exam: General: A&Ox3. NAD. Cooperative. HEENT: Atraumatic, normocephalic. Pulm: Poor air movement in the bases bilaterally, some crackles. Otherwise moderate air movement, no rhonchi symmetrical chest rise. No increase work of breathing. No respiratory distress. Cardiac: RRR, -mrg. Radial pulses intact and symmetrical. Abdominal: Nontender, nondistended, soft. BS present. Extremities: Bilateral lower leg warmth/erythema with dressings in place clean dry and intact. During the dressings skin continues to be warm and pink, minimally tender, with slightly increased warmth on exam. Pitting edema is present. PT pulse intact bilaterally. Results & Data Results & Data ([facility]) Vital Signs (Past 12 Hours) Vital Signs Temp Pulse Pulse Resp BP Pulse Ox 04/27/21 04:18 37.0 C 106 H 18 97/60 L 90 04/27/21 01:26 120 H 04/26/21 23:32 37.0 C 115 H 20 148/87 H 90 04/26/21 19:51 36.9 C 111 H 18 106/70 91 04/26/21 19:40 120 H 24 95 PG Care Time/CCT Total # of Minutes Spent Total Time Spent with Patient: Total time spent is greater than 50% in coordination of care (as documented) at patient's floor/unit and/or counseling patient: Coding Level of Care Code 12163 Subseq Hosp Care Lvl 3 Diagnoses Cellulitis of both lower extremities L03.115; L03.116 Edema due to hypoalbuminemia E88.09 COPD (chronic obstructive pulmonary disease) 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 Lymphedema I89.0 Hypertension I10 Hypertension type: essential hypertension Pulmonary embolism I26.99 Acute cor pulmonale presence: unspecified Chronicity: unspecified Pulmonary embolism type: unspecified GERD (gastroesophageal reflux disease) K21.9 Esophagitis presence: esophagitis presence not specified PRISCILA (obstructive sleep apnea) G47.33 Hypothyroidism E03.9 Hypothyroidism type: unspecified Chronic respiratory failure with hypoxia J96.11 Acute on chronic diastolic (congestive) heart failure I50.33 Candidal diaper rash B37.2; L22 Lung consolidation J18.1 (1) Hypothyroidism Hypothyroidism type: unspecified Qualified Code(s): E03.9 - Hypothyroidism, unspecified (2) COPD (chronic 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
[2021-04-27] MEDS: ALBUT/IPRATROP 3MG/0.5MG NEB 3 ML VIAL NEB SCH ×2 (07:40→19:22)
[2021-04-27] MEDS: UMECLIDINIUM/VILANTEROL 62.5/25MCG 7 PUFFS/INHALER INH SCH (08:23)
[2021-04-27] MEDS: FLUTICASONE FUROATE 100MCG 14 PUFFS/INHALER INH SCH (08:23)
[2021-04-27] MEDS: NYSTATIN POWDER 15GM BTL EXT SCH ×3 (08:23→21:48)
[2021-04-27] MEDS: PSYLLIUM 58.6% POWDER PACKET PO SCH (08:24)
[2021-04-27] MEDS: BENZONATATE 100 MG CAPSULE PO SCH ×3 (08:24→21:46)
[2021-04-27] MEDS: APIXABAN 5 MG TABLET PO SCH ×2 (08:24→21:46)
[2021-04-27] MEDS: MULTIVITAMIN TAB PO SCH (08:24)
[2021-04-27] MEDS: guaiFENesin 600 MG TABCR PO SCH ×2 (08:24→21:47)
[2021-04-27] MEDS: FUROSEMIDE 40 MG in SYRINGE 0 ML IV SCH ×2 (08:24→17:19)
[2021-04-27] MEDS: POTASSIUM CHLORIDE CRTAB 20 MEQ TABCR PO SCH ×3 (08:25→21:48)
[2021-04-27] MEDS: CALCIUM 600MG + VIT D 400 IU TAB PO SCH (08:25)
[2021-04-27] MEDS: CHOLECALCIFEROL 1,000 UNITS 25 MCG TAB PO SCH (08:25)
[2021-04-27] MEDS: PANTOprazole 40 MG TAB PO SCH (08:25)
[2021-04-27] MEDS: MAGNESIUM OXIDE 400 MG TAB PO SCH (08:25)
--- NOTE | 2021-04-27 09:19 | CT Scan Report ---
CT chest diagnostic wo con CT DOSE: 484.73 mGy.cm CLINICAL HISTORY: 85 years-old Male with Hypoxia, past bilateral infiltrates with elev CRP. Acute hy poxia with pulmonary opacities TECHNIQUE: Multiaxial CT images of the chest were performed without contrast. A dose lowering techni que was utilized adhering to the principles of ALARA. COMPARISON: Chest radiograph 04/23/2021, CTA chest 03/26/2021 FINDINGS: Unremarkable thyroid. Mildly enlarged paratracheal, subcarinal and hilar lymph nodes redemo nstrated which appear unchanged from comparison including index right paratracheal lymph node on imag e 107 measuring 1.3 cm. Subcarinal lymph nodes measure up to 1.3 cm. The heart is mildly enlarged. No pericardial effusion. Moderate coronary artery and thoracic aortic calcifications without thoracic a ortic aneurysm. Small layering pleural effusions. Emphysema. No pneumothorax. Respiratory motion artifact limits eval uation of the lung parenchyma. Bilateral upper lobe airspace opacities are redemonstrated which have slightly improved from comparison study. There are new airspace opacities of the superior segment lef t lower lobe with bibasilar consolidation, similar to the comparison study with slightly improved aer ation of the basal right lower lobe. Bronchial wall thickening suggestive of bronchitis with mild bib asilar mucous plugging. Tracheobronchial secretions. No pneumoperitoneum. No acute process of the imaged upper abdomen. Hepatic steatosis. Heterogeneity o f the liver is partially imaged and may be secondary to fatty infiltration. Unremarkable soft tissues . No acute fracture. Degenerative changes of the shoulders and spine. IMPRESSION: 1. Emphysema with chronic bronchitis comment tracheobronchial secretions and bibasilar mucous pluggin g. 2. Biapical airspace opacities appear similar to mildly improved from 03/26/2021, likely on an infecti ous or inflammatory basis. 3. Persistent bibasilar consolidation with new airspace opacities of the superior segment left lower lobe. Findings are suggestive of pneumonia versus aspiration pneumonitis. 4. Unchanged mediastinal and hilar adenopathy, likely reactive. 5. Small pleural effusions. ACT 112: Negative or not required by law. Electronically signed by: Denver Will M.D. 04/27/2021 9:17 AM
[2021-04-27] MEDS: AMPICILLIN/SULBACTAM SOD 3,000 MG in 0.9 % SODIUM CHLORIDE 100 ML IV SCH ×3 (11:57→23:04)
[2021-04-27] MEDS: VERAPAMIL HCL 180 MG TABCR PO SCH (21:47)
[2021-04-28] MEDS: AMPICILLIN/SULBACTAM SOD 3,000 MG in 0.9 % SODIUM CHLORIDE 100 ML IV SCH ×4 (05:34→23:59)
[2021-04-28] MEDS: LEVOTHYROXINE SODIUM 150 MCG TABLET PO SCH (05:35)
[2021-04-28 06:18] LABS: Basophils # (auto) 0.02 K/uL (0-0.2); Basophils % (auto) 0.2 %; Eosinophils # (auto) 0.53 K/uL (0-0.5); Eosinophils % (auto) 6.5 %; Hematocrit (blood only) 32.5 % (42-52); Hemoglobin 10.2 g/dL (14.0-18.0); Immature Granulocytes # (auto) 0.05 K/uL (0.00-0.02); Immature Granulocytes % (auto) 0.6 %; Lymphocytes # (auto) 1.05 K/uL (1.2-3.4); Lymphocytes % (auto) 12.8 %; Mean Corpuscular Hemoglobin 27.8 pg (25-34); Mean Corpuscular Hgb Conc 31.4 g/dL (32-36); Mean Corpuscular Volume 88.6 fL (80-100); Mean Platelet Volume 10.6 fL (7.4-10.4); Monocytes # (auto) 0.96 K/uL (0.11-0.59); Monocytes % (auto) 11.7 %; Neutrophils # (auto) 5.57 K/uL (1.4-6.5); Neutrophils % (auto) 68.2 %; Platelet Count 323 K/uL (130-400); RDW Coefficient of Variation 15.3 % (11.5-14.5); RDW Standard Deviation 49.4 fL (36.4-46.3); Red Blood Count 3.67 M/uL (4.7-6.1); White Blood Count 8.18 K/uL (4.8-10.8)
[2021-04-28 06:53] LABS: BUN Creatinine Ratio 19.2 (10-20); C Reactive Protein 7.84 mg/dl (0-0.29); Calcium 8.3 mg/dl (8.5-10.1); Creatinine Clr Calc Pharmacy 58.2 ml/min; Est GFR (African American) 71.9 ml/min; Potassium 4.3 mmol/L (3.5-5.1)
--- NOTE | 2021-04-28 07:03 | Discharge Summary ---
Date of Service April 28, 2021 Admission HPI Per Admitting Provider The patient is an 85-year-old male with a past medical history including HFpEF, livedo reticularis, lymphedema, pulmonary embolism, sepsis, pulmonary nodule, MRSA, PVD, SIRS, vitamin D deficiency, hypothyroidism, overlap syndrome, GERD, COPD O2 dependency, hypoalbuminemia, gout, BPH with LUTS and hypertension. Patient presents to the emergency department with progressively worsening swelling and seepage of lower extremities along with redness and warmth. His is been bandaging his lower extremities bilaterally. In general he feels fatigued and generally weak. Discharge Data Allergies Allergy/AdvReac Type Severity Reaction Status Date / Time clarithromycin Allergy Intermediate RASH Verified 04/23/21 16:37 Consultations 04/23/21 17:43 ED Decision to Admit Stat Ordered Studies 04/27/21 19:38 CT chest diagnostic wo con Routine Hospital Course (1) Cellulitis of both lower extremities: Isma is an 85-year-old male with a past medical history of bilateral cellulitis, COPD, diastolic CHF, and chronic lymphedema who presents with evidence of fluid overload and bilateral cellulitis. Bilateral cellulitis Recent admission to [facility] in March 2021 for similar Patient treated with Rocephin/Vanco with improvement at that time Patient currently on Rocephin/Vanco and improving. 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 - No history of Pseudomonas colonization or DM, antibiotics converted to Unasyn/doxycycline for coverage of anaerobes as noted in my consolidation section, if doing well may convert to Augmentin/doxycycline on discharge Chronic lymphedema management as below Continue Lasix 40 mg twice daily, (2) Lung consolidation: - CT:C: Emphysema with chronic bronchitis comment tracheobronchial secretions and bibasilar mucous plugging. Biapical airspace opacities appear similar to mildly improved from 03/26/2021, likely on an infectious or inflammatory basis. Persistent bibasilar consolidation with new airspace opacities of the superior segment left lower lobe. Findings are suggestive of pneumonia versus aspiration pneumonitis. Unchanged mediastinal and hilar adenopathy, likely reactive. Small pleural effusions. - CRP approximately [address] re-demonstrates biapical airspace opacities mildly improved, but with persistent bibasilar consolidation and new airspace opacities of the left lower lobe which could be consistent with pneumonia versus aspiration pneumonitis. Patient endorses chronic cough which may have worsened in the last week or 2. Current antibiotic regimen does not cover anaerobes, Rocephin broadened to Unasyn for additional coverage.CRP interpretation complicated by bilateral cellulitis. Patient previously discussed CT findings with pulmonology, low threshold for proceeding with PET scan versus bronchoscopy discussed, patient prefers to proceed with conservative measures but may consider as outpatient pending clinical course. (3) Edema due to hypoalbuminemia: 2nd to low albumin, lymphedema, acute/chronic diastolic CHF, etc. -Cont IV lasix BID, patient not euvolemic -daily bmp. (4) COPD (chronic obstructive pulmonary disease): With superimposed pulmonary edema, progressing well Continue nasal cannula oxygen as needed goal greater than 90% Patient with abnormal CT 1 month ago with bilateral pleural infiltrates and very high sed rate. Sed rate previously downtrending,difficult to interpret in the setting of acute cellulitis Continue inhalers/nebs Patient with continued O2 requirement, CT as noted in consolidation section (5) Lymphedema: See above (6) Hypertension: Continue verapamil Could be contributing to edema (7) Pulmonary embolism: -Continue apixaban -Dx March with such -Rx - [address] Burt (8) GERD (gastroesophageal reflux disease): Continue PPI (9) PRISCILA (obstructive sleep apnea): CPAP at bedtime (10) Hypothyroidism: Continue levothyroxine 50 mcg daily TSH January 2021 wnl (11) Chronic respiratory failure with hypoxia: stable on home O2 amount (12) Acute on chronic diastolic (congestive) heart failure: cont IV lasix improving (13) Candidal diaper rash: nystatin powder TID apply to penile head (balanitis) as well Per PT when medically ready can return home with home health services Discharge Plan Discharge Items Reason For Visit: B/L LE CELLULITIS Follow-up/Referrals: ProTyler MD [Primary Care Provider] - Medications and DC Order Prescriptions: No Action potassium chloride 20 mEq tablet,ER particles/crystals 20 meq PO QAM Qty: 90 RF: 3 Prilosec OTC 20 mg tablet,delayed release (DR/EC) 20 mg PO QAM Qty: 90 RF: 3 verapamil 180 mg tablet extended release 180 mg PO HS Qty: 90 RF: 3 albuterol sulfate [Ventolin HFA] 90 mcg/actuation HFA aerosol inhaler 2 puff inhalation Q4H PRN (Reason: shortness of breath or wheezing) Qty: 8.5 RF: 5 (DME) Oxygen Home Liters Per Minute See Rx Instructions .ROUTE .MEDSUPPLY Qty: 1 RF: 0 ipratropium-albuterol 0.5 mg-3 mg(2.5 mg base)/3 mL solution for nebulization 3 ml INH QID PRN (Reason: shortness of breath) Qty: 1080 RF: 3 benzonatate [Tessalon Perles] 100 mg capsule 100 mg PO TID PRN (Reason: cough) Qty: 12 RF: 0 promethazine-DM 6.25-15 mg/5 mL syrup 5 ml PO Q6H PRN (Reason: cough) Qty: 473 RF: 0 levothyroxine 150 mcg tablet 150 mcg PO QAM RF: 0 calcium carbonate-vitamin D3 [Calcium 500 With D] 500 mg(1,250mg) -400 unit Tablet 1 tab PO QAM RF: 0 magnesium 250 mg Tablet 250 mg PO 3XWK RF: 0 cholecalciferol (vitamin D3) 1,000 unit (25 mcg) tablet 1,000 units PO QAM RF: 0 multivitamin Tablet 1 tab PO QAM RF: 0 Trelegy Ellipta 100-62.5-25 mcg blister with device 1 inh INH QAM RF: 0 apixaban 5 mg tablet 5 mg PO BID RF: 0 furosemide 40 mg tablet 80 mg PO QAM RF: 0 acetaminophen [Tylenol Extra Strength] 500 mg Tablet 1,000 mg PO Q6 PRN (Reason: Pain) RF: 0 oxycodone 5 mg tablet 2.5 mg PO Q4H PRN (Reason: Pain) RF: 0 psyllium husk 3 gram/5.4 gram Powder 1 tbsp PO DAILY RF: 0 Admission Data Admit Date/Time: 04/23/21 18:15 Attending Provider: Tony Mcqueen Admit Provider: Jimmie Baires Primary Care Provider: Tyler Hawkins Other Providers: Jimmie Baires Coding Diagnoses Cellulitis of both lower extremities L03.115; L03.116 Lung consolidation J18.1 Edema due to hypoalbuminemia E88.09 COPD (chronic obstructive pulmonary disease) 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 Lymphedema I89.0 Hypertension I10 Hypertension type: essential hypertension Pulmonary embolism I26.99 Pulmonary embolism type: unspecified Chronicity: unspecified Acute cor pulmonale presence: unspecified GERD (gastroesophageal reflux disease) K21.9 Esophagitis presence: esophagitis presence not specified PRISCILA (obstructive sleep apnea) G47.33 Hypothyroidism E03.9 Hypothyroidism type: unspecified Chronic respiratory failure with hypoxia J96.11 Acute on chronic diastolic (congestive) heart failure I50.33 Candidal diaper rash B37.2; L22
[2021-04-28] MEDS: ALBUT/IPRATROP 3MG/0.5MG NEB 3 ML VIAL NEB SCH ×2 (07:26→20:04)
[2021-04-28] MEDS: NYSTATIN POWDER 15GM BTL EXT SCH ×3 (08:28→20:18)
[2021-04-28] MEDS: MAGNESIUM OXIDE 400 MG TAB PO SCH (08:28)
[2021-04-28] MEDS: APIXABAN 5 MG TABLET PO SCH ×2 (08:28→20:16)
[2021-04-28] MEDS: CALCIUM 600MG + VIT D 400 IU TAB PO SCH (08:28)
[2021-04-28] MEDS: MULTIVITAMIN TAB PO SCH (08:28)
[2021-04-28] MEDS: BENZONATATE 100 MG CAPSULE PO SCH ×3 (08:28→20:16)
[2021-04-28] MEDS: FLUTICASONE FUROATE 100MCG 14 PUFFS/INHALER INH SCH (08:28)
[2021-04-28] MEDS: guaiFENesin 600 MG TABCR PO SCH ×2 (08:28→20:17)
[2021-04-28] MEDS: CHOLECALCIFEROL 1,000 UNITS 25 MCG TAB PO SCH (08:28)
[2021-04-28] MEDS: FUROSEMIDE 40 MG in SYRINGE 0 ML IV SCH ×2 (08:28→17:15)
[2021-04-28] MEDS: PANTOprazole 40 MG TAB PO SCH (08:29)
[2021-04-28] MEDS: POTASSIUM CHLORIDE CRTAB 20 MEQ TABCR PO SCH ×3 (08:29→20:15)
[2021-04-28] MEDS: UMECLIDINIUM/VILANTEROL 62.5/25MCG 7 PUFFS/INHALER INH SCH (08:29)
[2021-04-28] MEDS: PSYLLIUM 58.6% POWDER PACKET PO SCH (08:29)
--- NOTE | 2021-04-28 16:11 | Hospitalist Progress Note ---
Date of Service April 28, 2021 Assessment & Plan (1) Cellulitis of both lower extremities: Plan: Isma is an 85-year-old male with a past medical history of bilateral cellulitis, COPD, diastolic CHF, and chronic lymphedema who presents with evidence of fluid overload and bilateral cellulitis. Bilateral cellulitis Recent admission to [facility] in March 2021 for similar Patient treated with Rocephin/Vanco with improvement at that time Patient currently on Rocephin/Vanco and improving. 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 - No history of Pseudomonas colonization or DM, antibiotics converted to Unasyn/doxycycline for coverage of anaerobes as noted in my consolidation section, if doing well anticipate convert to Augmentin/doxycycline on discharge Chronic lymphedema management as below Continue Lasix 40 mg twice daily, (2) Lung consolidation: Plan: - CT:C: Emphysema with chronic bronchitis comment tracheobronchial secretions and bibasilar mucous plugging. Biapical airspace opacities appear similar to mildly improved from 03/26/2021, likely on an infectious or inflammatory basis. Persistent bibasilar consolidation with new airspace opacities of the superior segment left lower lobe. Findings are suggestive of pneumonia versus aspiration pneumonitis. Unchanged mediastinal and hilar adenopathy, likely reactive. Small pleural effusions. - CRP improved today, continue to trend as outpatient Chest CT re-demonstrates biapical airspace opacities mildly improved, but with persistent bibasilar consolidation and new airspace opacities of the left lower lobe which could be consistent with pneumonia versus aspiration pneumonitis. Patient endorses chronic cough which may have worsened in the last week or 2. Current antibiotic regimen does not cover anaerobes, Rocephin broadened to Unasyn for additional coverage.CRP interpretation complicated by bilateral cellulitis. Patient previously discussed CT findings with pulmonology, low threshold for proceeding with PET scan versus bronchoscopy discussed, patient prefers to proceed with conservative measures but may consider as outpatient pending clinical course. (3) Edema due to hypoalbuminemia: Plan: 2nd to low albumin, lymphedema, acute/chronic diastolic CHF -daily bmp. - Baseline weight ~96-97kg by review, currently remains 101kg with approximately 500 cc output every shift -Creatinine stable, continue Lasix twice daily and steady diuresis (4) COPD (chronic obstructive pulmonary disease): Plan: With superimposed pulmonary edema, progressing well Continue nasal cannula oxygen as needed goal greater than 90% Patient with abnormal CT 1 month ago with bilateral pleural infiltrates and very high sed rate. Continue inhalers/nebs Patient with continued O2 requirement, CT as noted in consolidation section, see discussion and lung consolidation (5) Lymphedema: Plan: See above (6) Hypertension: Plan: Continue verapamil Could be contributing to edema (7) Pulmonary embolism: Plan: -Continue apixaban -Dx March with such -Rx - [address] Burt (8) GERD (gastroesophageal reflux disease): Plan: Continue PPI (9) PRISCILA (obstructive sleep apnea): Plan: CPAP at bedtime (10) Hypothyroidism: Plan: Continue levothyroxine 50 mcg daily TSH January 2021 wnl (11) Chronic respiratory failure with hypoxia: Plan: stable on home O2 amount (12) Acute on chronic diastolic (congestive) heart failure: Plan: -cont IV lasix -improving (13) Candidal diaper rash: Plan: -nystatin powder TID -apply to penile head (balanitis) as well Plan: Per PT when medically ready can return home with home health services. Appears improved from it awaiting return to baseline oxygen requirements with steady diuresis for fluid overload Admission and Anticipated Discharge Date Admission Date: April 23, 2021 Poncho Ashby reports that he feels "okay "today, slightly better than yesterday. He reports his breathing is improving, but he continues to need oxygen and reports he only needs oxygen at night at home. He is not short of breath at rest. Has not had chest pain, chest pressure, sweats, fever, chills today. His legs are comfortable, and denies pain from these. Continues to have a cough productive for clearyellow sputum. Denies leg pain, feels his legs are still more swollen than normal but is elevating them for at least 20 minutes several times a day which seems to help Review of Systems Review of Systems: Constitutional: Denies fever, chills, malaise Eyes: Denies vision change ENT: Denies ear pain, sore throat, sinus pain Cardiovascular: Denies Chest pain, chest pressure, palpitations Respiratory: See HPI gastrointestinal: Denies abdominal pain, nausea, vomiting, constipation, diarrhea Genitourinary: Denies dysuria, urinary frequency Musculoskeletal: Denies acute focal weakness, muscle aches/pain, joint aches/pain Integumentary: Endorses bilateral leg cellulitis, denies other skin changes. Neurological: Denies headache, numbness, tingling, focal weakness Physical Exam Physical Exam: General: A&Ox3. NAD. Cooperative. HEENT: Atraumatic, normocephalic. Pulm: Improved aeration today, better air movement in bases but increased crackles/rales appreciated. No increase in work of breathing. No respiratory distress. Cardiac: RRR, -mrg. Radial pulses intact and symmetrical. Abdominal: Nontender, nondistended, soft. BS present. Extremities: Bilateral lower leg warmth/erythema with dressings in place clean dry and intact. Underneath dressings skin is warm, dry, nontender today, no overlying erythema.. Pitting edema is present. PT pulse intact bilaterally. Results & Data Results & Data ([facility]) Vital Signs (Past 12 Hours) Vital Signs Temp Pulse Pulse Resp BP BP Pulse Ox 04/28/21 15:27 36.8 C 99 H 18 108/63 94 04/28/21 11:29 36.4 C L 97 H 16 112/63 93 04/28/21 07:37 36.9 C 100 H 18 125/73 98 04/28/21 07:26 102 H 20 95 04/28/21 07:22 84 PG Care Time/CCT Total # of Minutes Spent Total Time Spent with Patient: Total time spent is greater than 50% in coordination of care (as documented) at patient's floor/unit and/or counseling patient: Coding Level of Care Code 84055 Subseq Hosp Care Lvl 3 Diagnoses Cellulitis of both lower extremities L03.115; L03.116 Lung consolidation J18.1 Edema due to hypoalbuminemia E88.09 COPD (chronic obstructive pulmonary disease) 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 Lymphedema I89.0 Hypertension I10 Hypertension type: essential hypertension Pulmonary embolism I26.99 Acute cor pulmonale presence: unspecified Chronicity: unspecified Pulmonary embolism type: unspecified GERD (gastroesophageal reflux disease) K21.9 Esophagitis presence: esophagitis presence not specified PRISCILA (obstructive sleep apnea) G47.33 Hypothyroidism E03.9 Hypothyroidism type: unspecified Chronic respiratory failure with hypoxia J96.11 Acute on chronic diastolic (congestive) heart failure I50.33 Candidal diaper rash B37.2; L22 (1) Hypothyroidism Hypothyroidism type: unspecified Qualified Code(s): E03.9 - Hypothyroidism, unspecified (2) COPD (chronic 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
[2021-04-28] MEDS ORDERED: VANCOMYCIN TROUGH ONE (16:30)
[2021-04-28] MEDS: DOXYCYCLINE HYCLATE 100 MG in DEXTROSE 5% 100 ML IV SCH (17:15)
[2021-04-28] MEDS: VERAPAMIL HCL 180 MG TABCR PO SCH (20:16)
[2021-04-29] MEDS: DOXYCYCLINE HYCLATE 100 MG in DEXTROSE 5% 100 ML IV SCH (04:04)
[2021-04-29] MEDS: LEVOTHYROXINE SODIUM 150 MCG TABLET PO SCH (06:03)
[2021-04-29] MEDS: AMPICILLIN/SULBACTAM SOD 3,000 MG in 0.9 % SODIUM CHLORIDE 100 ML IV SCH ×2 (06:03→11:51)
[2021-04-29] MEDS: ALBUT/IPRATROP 3MG/0.5MG NEB 3 ML VIAL NEB SCH ×2 (07:07→19:26)
[2021-04-29] MEDS: PANTOprazole 40 MG TAB PO SCH (08:24)
[2021-04-29] MEDS: MULTIVITAMIN TAB PO SCH (08:24)
[2021-04-29] MEDS: CALCIUM 600MG + VIT D 400 IU TAB PO SCH (08:24)
[2021-04-29] MEDS: CHOLECALCIFEROL 1,000 UNITS 25 MCG TAB PO SCH (08:24)
[2021-04-29] MEDS: BENZONATATE 100 MG CAPSULE PO SCH ×3 (08:24→20:30)
[2021-04-29] MEDS: guaiFENesin 600 MG TABCR PO SCH ×2 (08:24→20:32)
[2021-04-29] MEDS: POTASSIUM CHLORIDE CRTAB 20 MEQ TABCR PO SCH ×3 (08:25→20:32)
[2021-04-29] MEDS: APIXABAN 5 MG TABLET PO SCH ×2 (08:25→20:30)
[2021-04-29] MEDS: MAGNESIUM OXIDE 400 MG TAB PO SCH (08:25)
[2021-04-29] MEDS: UMECLIDINIUM/VILANTEROL 62.5/25MCG 7 PUFFS/INHALER INH SCH (08:26)
[2021-04-29] MEDS: FLUTICASONE FUROATE 100MCG 14 PUFFS/INHALER INH SCH (08:26)
[2021-04-29] MEDS: NYSTATIN POWDER 15GM BTL EXT SCH ×3 (08:27→20:32)
[2021-04-29] MEDS: FUROSEMIDE 40 MG in SYRINGE 0 ML IV SCH (08:27)
[2021-04-29] MEDS: PSYLLIUM 58.6% POWDER PACKET PO SCH (08:27)
[2021-04-29 08:36] LABS: Calcium 8.3 mg/dl (8.5-10.1); Creatinine Clr Calc Pharmacy 56.9 ml/min; Est GFR (African American) 70.3 ml/min; Est GFR (Non-African American) 60.7 ml/min
[2021-04-29 09:18] LABS: Basophils # (auto) 0.02 K/uL (0-0.2); Basophils % (auto) 0.3 %; Eosinophils # (auto) 0.52 K/uL (0-0.5); Eosinophils % (auto) 7.4 %; Hematocrit (blood only) 33.8 % (42-52); Hemoglobin 10.6 g/dL (14.0-18.0); Immature Granulocytes # (auto) 0.03 K/uL (0.00-0.02); Immature Granulocytes % (auto) 0.4 %; Lymphocytes # (auto) 1.18 K/uL (1.2-3.4); Lymphocytes % (auto) 16.8 %; Mean Corpuscular Hemoglobin 27.9 pg (25-34); Mean Corpuscular Hgb Conc 31.4 g/dL (32-36); Mean Corpuscular Volume 88.9 fL (80-100); Monocytes # (auto) 0.91 K/uL (0.11-0.59); Neutrophils # (auto) 4.36 K/uL (1.4-6.5); Neutrophils % (auto) 62.1 %; Platelet Count 326 K/uL (130-400); RDW Coefficient of Variation 15.3 % (11.5-14.5); RDW Standard Deviation 48.8 fL (36.4-46.3); White Blood Count 7.02 K/uL (4.8-10.8)
--- NOTE | 2021-04-29 15:35 | Hospitalist Progress Note ---
Date of Service April 29, 2021 Assessment & Plan (1) Cellulitis of both lower extremities: Plan: Isma is an 85-year-old male with a past medical history of bilateral cellulitis, COPD, diastolic CHF, and chronic lymphedema who presents with evidence of fluid overload and bilateral cellulitis. Bilateral cellulitis Recent admission to [facility] in March 2021 for similar Patient treated with Rocephin/Vanco with improvement at that time Patient initially on Rocephin/Vanco and improving. 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 - No history of Pseudomonas colonization or DM, antibiotics converted to Unasyn/doxycycline for coverage of anaerobes as noted in my consolidation section, change to Augmentin/doxycycline today Chronic lymphedema management as below Continue Lasix 80mg PO BID for time being to remove excess fluid (2) Lung consolidation: Plan: - CT:C: Emphysema with chronic bronchitis comment tracheobronchial secretions and bibasilar mucous plugging. Biapical airspace opacities appear similar to mildly improved from 03/26/2021, likely on an infectious or inflammatory basis. Persistent bibasilar consolidation with new airspace opacities of the superior segment left lower lobe. Findings are suggestive of pneumonia versus aspiration pneumonitis. Unchanged mediastinal and hilar adenopathy, likely reactive. Small pleural effusions. - CRP improved today, continue to trend as outpatient Chest CT re-demonstrates biapical airspace opacities mildly improved, but with persistent bibasilar consolidation and new airspace opacities of the left lower lobe which could be consistent with pneumonia versus aspiration pneumonitis. Patient endorses chronic cough which may have worsened in the last week or two. should follow up with pulmonology, consider PET vs bronchoscopy outpatient will discharge on Doxy and Augmentin (3) Edema due to hypoalbuminemia: Plan: 2nd to low albumin, lymphedema, acute/chronic diastolic CHF -daily bmp, Cr is stable today - Baseline weight ~96-97kg by review, currently remains 100kg -Creatinine stable, continue Lasix 80mg PO twice daily and steady diuresis (4) COPD (chronic obstructive pulmonary disease): Plan: With superimposed pulmonary edema, progressing well Continue nasal cannula oxygen as needed goal greater than 90% Patient with abnormal CT 1 month ago with bilateral pleural infiltrates and very high sed rate. Continue inhalers/nebs Patient with continued O2 requirement, CT as noted in consolidation section, see discussion and lung consolidation likely needs a two step tomorrow prior to discharge (5) Lymphedema: Plan: See above (6) Hypertension: Plan: Continue verapamil Could be contributing to edema (7) Pulmonary embolism: Plan: -Continue apixaban -Dx March with such -Rx - [address] Burt (8) GERD (gastroesophageal reflux disease): Plan: Continue PPI (9) PRISCILA (obstructive sleep apnea): Plan: CPAP at bedtime (10) Hypothyroidism: Plan: Continue levothyroxine 50 mcg daily TSH January 2021 wnl (11) Chronic respiratory failure with hypoxia: Plan: normally only wears 2L at night will get two step in AM (12) Acute on chronic diastolic (congestive) heart failure: Plan: -cont Lasix 80mg PO BID -improving (13) Candidal diaper rash: Plan: -nystatin powder TID -apply to penile head (balanitis) as well Plan: two step in AM and discharge to home will need pulm follow up Admission and Anticipated Discharge Date Admission Date: April 23, 2021 Subjective patient doing okay, ambulated with therapy, HR running in 100's and saturations dropped to 83% on exertion while on 2L he says that he really does not feel any different in terms of breathing no chest pain or pressure, eating fairly well making a little more urine than normal with the Lasix 40mg IV BID his legs are not sore, no fever/chills, no nausea c/o IV site burning, discussed changing to PO medications will try to get down to room air as he only uses oxygen at night at baseline, might need a two step tomorrow Review of Systems Review of Systems: All systems reviewed & are unremarkable except as noted in Subjective Respiratory: + dyspnea on exertion; no cough, no dyspnea and no wheezing Cardiovascular: + edema; no chest pain Integumentary: + erythema (lower legs bilaterally) Physical Exam Constitutional: well developed, well nourished and comfortable; no acute distress Neck: trachea midline, no thyromegaly Respiratory: normal respiratory effort; no respiratory distress, no labored breathing, no cough and not tachypneic Auscultation: lungs clear to auscultation bilaterally Cardiovascular: Rate/Rhythm: regular rhythm and + tachycardic Heart Sounds: normal S1 and normal S2; no murmur Extremities: normal capillary refill and + edema Gastrointestinal (Abdomen): normal bowel sounds, soft, nontender, no hepatosplenomegaly Musculoskeletal: no cyanosis or clubbing, extremities motor strength 5/5 Skin: + erythema (lower legs bilaterally, wrapped, warm, not tender) Neurologic: normal touch/pain/proprioception, CN's II-XI intact bilaterally, moves all extremities and awake; no focal motor deficits Psychiatric: A+Ox3, euthymic affect Results & Data Results & Data ([facility]) Vital Signs (Past 12 Hours) Vital Signs Temp Pulse Pulse Resp BP BP Pulse Ox 04/29/21 14:00 108 H 04/29/21 11:01 37.0 C 105 H 20 128/72 93 04/29/21 08:06 37.1 C 101 H 18 116/71 91 04/29/21 07:07 103 H 17 93 04/29/21 07:00 95 H 04/29/21 05:50 74 165/69 H 04/29/21 04:38 36.8 C 99 H 20 111/67 90 Laboratory Results Laboratory Results - last 24 hr 04/29/21 04/29/21 07:16 07:16 WBC 7.02 RBC 3.80 L Hgb 10.6 L Hct 33.8 L MCV 88.9 MCH 27.9 MCHC 31.4 L RDW Std Deviation 48.8 H RDW Coeff of [place] 15.3 H Plt Count 326 MPV 11.0 H Immature Gran % (Auto) 0.4 Neut % (Auto) 62.1 Lymph % (Auto) 16.8 [place] % (Auto) 13.0 Eos % (Auto) 7.4 Baso % (Auto) 0.3 Neut # (Auto) 4.36 Lymph # (Auto) 1.18 L [place] # (Auto) 0.91 H Eos # (Auto) 0.52 H Baso # (Auto) 0.02 Immature Gran # (Auto) 0.03 H Sodium 140 Potassium 4.0 Chloride 108 H Carbon Dioxide 25 Anion Gap 7.0 BUN 19 H Creatinine 1.11 Est Cr Clr Drug Dosing 56.9 Est GFR ( Amer) 70.3 Est GFR (Non-Af Amer) 60.7 BUN/Creatinine Ratio 17.0 Glucose 88 Calcium 8.3 L Medications Administered Current Inpatient Medications Acetaminophen (Acetaminophen 325 Mg Tab) 650 mg PO Q4H PRN PRN Reason: Pain or Fever Stop: 05/23/21 20:37 Last Admin: 04/26/21 08:04 Dose: 650 mg Documented by: Albuterol (Albut/Ipratrop 3mg/0.5mg Neb 3 Ml Vial) 3 ml NEB BIDR [facility] Stop: 05/25/21 18:59 Last Admin: 04/29/21 07:07 Dose: 3 ml Documented by: Apixaban (Apixaban 5 Mg Tablet) 5 mg PO BID [facility] Stop: 05/23/21 20:59 Last Admin: 04/29/21 08:25 Dose: 5 mg Documented by: Benzonatate (Benzonatate 100 Mg Capsule) 100 mg PO TID [facility] Stop: 05/25/21 15:59 Last Admin: 04/29/21 14:13 Dose: 100 mg Documented by: Fluticasone Furoate (Fluticasone Furoate 100mcg 14 Puffs/Inhaler) 1 puffs INH DAILY [facility] Stop: 05/24/21 08:59 Last Admin: 04/29/21 08:26 Dose: 1 puffs Documented by: Guaifenesin (Guaifenesin 600 Mg Tabcr) 1,200 mg PO Q12 [facility] Stop: 05/25/21 20:59 Last Admin: 04/29/21 08:24 Dose: 1,200 mg Documented by: Furosemide 40 mg/ Syringe 4 mls @ 4 mls/min IV BID17 [facility] Stop: 05/24/21 16:59 Last Admin: 04/29/21 08:27 Dose: 4 mls/min Documented by: Ampicillin Sodium/Sulbactam Sodium 3,000 mg/ Sodium Chloride 108 mls @ 200 mls/hr IV Q6H [facility]; Protocol Stop: 05/04/21 11:59 Last Infusion: 04/29/21 12:24 Dose: Infused Documented by: Doxycycline Hyclate 100 mg/ (Dextrose) 110 mls @ 50 mls/hr IV Q12H [facility]; Protocol Stop: 05/05/21 16:59 Last Infusion: 04/29/21 06:18 Dose: Infused Documented by: Levothyroxine Sodium (Levothyroxine Sodium 150 Mcg Tablet) 150 mcg PO DAILYBB [facility] Stop: 05/24/21 06:29 Last Admin: 04/29/21 06:03 Dose: 150 mcg Documented by: Magnesium Oxide (Magnesium Oxide 400 Mg Tab) 400 mg PO DAILY [facility] Stop: 05/25/21 10:29 Last Admin: 04/29/21 08:25 Dose: 400 mg Documented by: Multivitamins (Multivitamin Tab) 1 tab PO QAM [facility] Stop: 05/24/21 08:59 Last Admin: 04/29/21 08:24 Dose: 1 tab Documented by: Multivitamins/Minerals (Calcium 600mg + Vit D 400 Iu Tab) 1 tab PO QAM [facility] Stop: 05/24/21 08:59 Last Admin: 04/29/21 08:24 Dose: 1 tab Documented by: Nystatin (Nystatin Powder 15gm Btl) 1 appln EXT TID [facility] Stop: 05/24/21 13:59 Last Admin: 04/29/21 14:13 Dose: 1 appln Documented by: Ondansetron HCl (Ondansetron Inj 2 Mg/Ml 2 Ml Vial) 4 mg IV Q6H PRN PRN Reason: Nausea Stop: 05/23/21 20:37 Oxycodone HCl (Oxycodone Hcl Ir 5 Mg Tab (Immediate Release)) 2.5 mg PO Q4H PRN PRN Reason: Pain Stop: 05/07/21 20:37 Pantoprazole Sodium (Pantoprazole 40 Mg Tab) 40 mg PO QAM [facility] Stop: 05/24/21 08:59 Last Admin: 04/29/21 08:24 Dose: 40 mg Documented by: Potassium Chloride (Potassium Chloride Crtab 20 Meq Tabcr) 40 meq PO TID [facility] Stop: 05/24/21 13:59 Last Admin: 04/29/21 14:13 Dose: 40 meq Documented by: Promethazine HCl (Promethazine Hcl Syrup 6.25 Mg/5 Ml) 6.25 mg PO Q6H PRN PRN Reason: cough Stop: 05/23/21 20:51 Psyllium Hydrophilic Mucilloid (Psyllium 58.6% Powder Packet) 1 pkt PO DAILY [facility] Stop: 05/24/21 08:59 Last Admin: 04/29/21 08:27 Dose: 1 pkt Documented by: Umeclidinium/Vilanterol (Umeclidinium/Vilanterol 62.5/25mcg 7 Puffs/Inhaler) 1 puffs INH DAILY [facility] Stop: 05/24/21 08:59 Last Admin: 04/29/21 08:26 Dose: 1 puffs Documented by: Verapamil HCl (Verapamil Hcl 180 Mg Tabcr) 180 mg PO HS [facility] Stop: 05/23/21 20:59 Last Admin: 04/28/21 20:16 Dose: 180 mg Documented by: Vitamin D (Cholecalciferol 1,000 Units 25 Mcg Tab) 1,000 units PO QAM [facility] Stop: 05/24/21 08:59 Last Admin: 04/29/21 08:24 Dose: 1,000 units Documented by: PG Care Time/CCT Total # of Minutes Spent Total Time Spent with Patient: Total time spent is greater than 50% in coordination of care (as documented) at patient's floor/unit and/or counseling patient: Coding Level of Care Code 27553 Subseq Hosp Care Lvl 3 Diagnoses Cellulitis of both lower extremities L03.115; L03.116 Lung consolidation J18.1 Edema due to hypoalbuminemia E88.09 COPD (chronic obstructive pulmonary disease) 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 Lymphedema I89.0 Hypertension I10 Hypertension type: essential hypertension Pulmonary embolism I26.99 Acute cor pulmonale presence: unspecified Chronicity: unspecified Pulmonary embolism type: unspecified GERD (gastroesophageal reflux disease) K21.9 Esophagitis presence: esophagitis presence not specified PRISCILA (obstructive sleep apnea) G47.33 Hypothyroidism E03.9 Hypothyroidism type: unspecified Chronic respiratory failure with hypoxia J96.11 Acute on chronic diastolic (congestive) heart failure I50.33 Candidal diaper rash B37.2; L22 (1) Hypothyroidism Hypothyroidism type: unspecified Qualified Code(s): E03.9 - Hypothyroidism, unspecified (2) COPD (chronic 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
[2021-04-29] MEDS: FUROSEMIDE 80 MG TAB PO SCH (17:24)
[2021-04-29] MEDS: AMOXICILLIN/CLAVULANATE 875 MG TAB PO SCH (17:24)
[2021-04-29] MEDS: DOXYCYCLINE HYCLATE 100 MG CAP PO SCH (20:31)
[2021-04-29] MEDS: VERAPAMIL HCL 180 MG TABCR PO SCH (21:44)
[2021-04-30] MEDS: LEVOTHYROXINE SODIUM 150 MCG TABLET PO SCH (06:01)
[2021-04-30] MEDS: ALBUT/IPRATROP 3MG/0.5MG NEB 3 ML VIAL NEB SCH ×2 (07:35→19:30)
[2021-04-30] MEDS: AMOXICILLIN/CLAVULANATE 875 MG TAB PO SCH ×2 (08:00→17:45)
[2021-04-30] MEDS: MAGNESIUM OXIDE 400 MG TAB PO SCH (08:02)
[2021-04-30] MEDS: BENZONATATE 100 MG CAPSULE PO SCH ×3 (08:02→21:05)
[2021-04-30] MEDS: POTASSIUM CHLORIDE CRTAB 20 MEQ TABCR PO SCH ×3 (08:02→21:06)
[2021-04-30] MEDS: guaiFENesin 600 MG TABCR PO SCH ×2 (08:03→22:17)
[2021-04-30] MEDS: FUROSEMIDE 80 MG TAB PO SCH ×2 (08:03→17:45)
[2021-04-30] MEDS: APIXABAN 5 MG TABLET PO SCH ×2 (08:03→21:05)
[2021-04-30] MEDS: DOXYCYCLINE HYCLATE 100 MG CAP PO SCH ×2 (08:03→22:17)
[2021-04-30] MEDS: UMECLIDINIUM/VILANTEROL 62.5/25MCG 7 PUFFS/INHALER INH SCH (08:04)
[2021-04-30] MEDS: FLUTICASONE FUROATE 100MCG 14 PUFFS/INHALER INH SCH (08:04)
[2021-04-30] MEDS: PSYLLIUM 58.6% POWDER PACKET PO SCH (08:06)
[2021-04-30] MEDS: CALCIUM 600MG + VIT D 400 IU TAB PO SCH (08:06)
[2021-04-30] MEDS: CHOLECALCIFEROL 1,000 UNITS 25 MCG TAB PO SCH (08:07)
[2021-04-30] MEDS: NYSTATIN POWDER 15GM BTL EXT SCH ×3 (08:07→21:07)
[2021-04-30] MEDS: PANTOprazole 40 MG TAB PO SCH (08:07)
[2021-04-30] MEDS: MULTIVITAMIN TAB PO SCH (08:07)
[2021-04-30 08:18] LABS: BUN Creatinine Ratio 15.7 (10-20); Calcium 8.3 mg/dl (8.5-10.1); Creatinine Clr Calc Pharmacy 53.8 ml/min; Est GFR (Non-African American) 56.9 ml/min; Potassium 3.7 mmol/L (3.5-5.1)
[2021-04-30] MEDS: dilTIAZem ER 180 MG CAPCR PO SCH (08:29)
--- NOTE | 2021-04-30 10:09 | Hospitalist Progress Note ---
Date of Service April 30, 2021 Assessment & Plan (1) Acute on chronic diastolic (congestive) heart failure: Plan: -cont Lasix 80mg PO BID -add Zaroxolyn 5mg qAM fluid restrict to 1500mL day daily weight, I/O's suspect he has a few more liters to give until euvolemic (2) Cellulitis of both lower extremities: Plan: Isma is an 85-year-old male with a past medical history of bilateral cellulitis, COPD, diastolic CHF, and chronic lymphedema who presents with evidence of fluid overload and bilateral cellulitis. Bilateral cellulitis Recent admission to [facility] in March 2021 for similar Patient treated with Rocephin/Vanco with improvement at that time Patient initially on Rocephin/Vanco and improving. 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 - No history of Pseudomonas colonization or DM, antibiotics converted to Unasyn/doxycycline for coverage of anaerobes as noted in my consolidation section, change to Augmentin/doxycycline on 04/29, would complete a full two weeks of treatment, last day 05/07 Chronic lymphedema management as below Continue Lasix 80mg PO BID for time being to remove excess fluid, still with pitting edema, will make him prone to infections (3) Lung consolidation: Plan: - CT:C: Emphysema with chronic bronchitis comment tracheobronchial secretions and bibasilar mucous plugging. Biapical airspace opacities appear similar to mildly improved from 03/26/2021, likely on an infectious or inflammatory basis. Persistent bibasilar consolidation with new airspace opacities of the superior segment left lower lobe. Findings are suggestive of pneumonia versus aspiration pneumonitis. Unchanged mediastinal and hilar adenopathy, likely reactive. Small pleural effusions. - CRP improved today, continue to trend as outpatient Chest CT re-demonstrates biapical airspace opacities mildly improved, but with persistent bibasilar consolidation and new airspace opacities of the left lower lobe which could be consistent with pneumonia versus aspiration pneumonitis. Patient endorses chronic cough which may have worsened in the last week or two. should follow up with pulmonology, consider PET vs bronchoscopy outpatient will discharge on Doxy and Augmentin (4) Edema due to hypoalbuminemia: Plan: 2nd to low albumin, lymphedema, acute/chronic diastolic CHF -daily bmp, Cr is stable today - Baseline weight ~96-97kg by review, today he is 99kg -Creatinine stable, continue Lasix 80mg PO twice daily and steady diuresis add Zaroxolyn 5mg qAM prior to Lasix fluid restrict to 1500mL a day (5) COPD (chronic obstructive pulmonary disease): Plan: With superimposed pulmonary edema, progressing well Continue nasal cannula oxygen as needed goal greater than 90% Patient with abnormal CT 1 month ago with bilateral pleural infiltrates and very high sed rate. Continue inhalers/nebs Patient with continued O2 requirement, CT as noted in consolidation section, see discussion and lung consolidation 2 step today, he required 3L at rest and 6L on exertion, not ready to go home, too much oxygen required try to improve with diuresis and antibiotics (6) Lymphedema: Plan: See above (7) Hypertension: Plan: change Verapamil to Diltiazem to try to provide better HR control slightly tachy in 100's monitor BP, stable this morning at 8am (8) Pulmonary embolism: Plan: -Continue apixaban -Dx March with such -Rx - [address] Burt (9) GERD (gastroesophageal reflux disease): Plan: Continue PPI (10) PRISCILA (obstructive sleep apnea): Plan: CPAP at bedtime (11) Hypothyroidism: Plan: Continue levothyroxine 50 mcg daily TSH January 2021 wnl (12) Chronic respiratory failure with hypoxia: Plan: normally only wears 2L at night this morning he needed 3L at rest and 6L on exertion can arrange for home oxygen but need to tune him up further (13) Candidal diaper rash: Plan: -nystatin powder TID -apply to penile head (balanitis) as well Plan: keep in hospital for further diuresis, home in 2 days potentially Admission and Anticipated Discharge Date Admission Date: April 23, 2021 Subjective patient had 2 step this morning, required 3L at rest and 6L on exertion still breathing heavy, recovering he admits that he is more short of breath than normal, typically he does not wear oxygen at home legs with pitting edema to knees, still volume overloaded discussed that he has been in and out of the hospital, if we let him go home he will be back I would like to keep him, aggressively diurese him and monitor renal function, he agrees with plan no chest pain/pressure, no fever, admits to dyspnea at rest and worse on exertion able to walk in the room with no assistance Review of Systems Review of Systems: All systems reviewed & are unremarkable except as noted in Subjective Physical Exam Constitutional: well developed, well nourished and comfortable; no acute distress Neck: trachea midline, no thyromegaly Respiratory: normal respiratory effort; no respiratory distress, no labored breathing, no cough and not tachypneic Auscultation: lungs clear to a uscultation bilaterally Cardiovascular: Rate/Rhythm: regular rhythm and + tachycardic Heart Sounds: normal S1 and normal S2; no murmur Extremities: normal capillary refill and + edema (pitting to the knees bilaterally) Gastrointestinal (Abdomen): normal bowel sounds, soft, nontender, no hepatosplenomegaly Musculoskeletal: no cyanosis or clubbing, extremities motor strength 5/5 Skin: + erythema (lower legs bilaterally, wrapped, warm, not tender) Neurologic: normal touch/pain/proprioception, CN's II-XI intact bilaterally, moves all extremities and awake; no focal motor deficits Psychiatric: A+Ox3, euthymic affect Results & Data Results & Data ([facility]) Vital Signs (Past 12 Hours) Vital Signs Temp Pulse Pulse Pulse Pulse Pulse Pulse 04/30/21 07:35 04/30/21 07:34 36.8 C 04/30/21 07:00 103 H 105 H 104 H 129 H 128 H 130 H 04/29/21 23:08 36.9 C Pulse Pulse Pulse Pulse Resp Resp Resp 04/30/21 07:35 73 23 04/30/21 07:34 101 H 20 04/30/21 07:00 122 H 101 H 106 H 18 18 04/29/21 23:08 113 H 22 Resp Resp Resp Resp Resp Resp Resp 04/30/21 07:35 04/30/21 07:34 04/30/21 07:00 18 24 24 25 H 24 19 18 04/29/21 23:08 BP Pulse Ox Pulse Ox Pulse Ox Pulse Ox Pulse Ox Pulse Ox 04/30/21 07:35 95 04/30/21 07:34 121/69 92 04/30/21 07:00 83 L 87 L 91 87 L 87 L 04/29/21 23:08 118/64 92 Pulse Ox Pulse Ox Pulse Ox Pulse Ox 04/30/21 07:35 04/30/21 07:34 04/30/21 07:00 90 86 L 95 81 L 04/29/21 23:08 Laboratory Results Laboratory Results - last 24 hr 04/30/21 07:18 Sodium 140 Potassium 3.7 Chloride 107 Carbon Dioxide 27 Anion Gap 6.0 BUN 18 Creatinine 1.17 Est Cr Clr Drug Dosing 53.8 Est GFR ( Amer) 66.0 Est GFR (Non-Af Amer) 56.9 BUN/Creatinine Ratio 15.7 Glucose 89 Calcium 8.3 L Medications Administered Current Inpatient Medications Acetaminophen (Acetaminophen 325 Mg Tab) 650 mg PO Q4H PRN PRN Reason: Pain or Fever Stop: 05/23/21 20:37 Last Admin: 04/26/21 08:04 Dose: 650 mg Documented by: Albuterol (Albut/Ipratrop 3mg/0.5mg Neb 3 Ml Vial) 3 ml NEB BIDR [facility] Stop: 05/25/21 18:59 Last Admin: 04/30/21 07:35 Dose: 3 ml Documented by: Amoxicillin/Clavulanate Potassium (Amoxicillin/Clavulanate 875 Mg Tab) 1 tab PO BIDM [facility] Stop: 05/04/21 16:59 Last Admin: 04/30/21 08:00 Dose: 1 tab Documented by: Apixaban (Apixaban 5 Mg Tablet) 5 mg PO BID [facility] Stop: 05/23/21 20:59 Last Admin: 04/30/21 08:03 Dose: 5 mg Documented by: Benzonatate (Benzonatate 100 Mg Capsule) 100 mg PO TID [facility] Stop: 05/25/21 15:59 Last Admin: 04/30/21 08:02 Dose: 100 mg Documented by: Diltiazem HCl (Diltiazem Er 180 Mg Capcr) 180 mg PO QAM [facility] Stop: 05/30/21 08:59 Last Admin: 04/30/21 08:29 Dose: 180 mg Documented by: Doxycycline Hyclate (Doxycycline Hyclate 100 Mg Cap) 100 mg PO BID [facility] Stop: 05/05/21 20:59 Last Admin: 04/30/21 08:03 Dose: 100 mg Documented by: Fluticasone Furoate (Fluticasone Furoate 100mcg 14 Puffs/Inhaler) 1 puffs INH DAILY [facility] Stop: 05/24/21 08:59 Last Admin: 04/30/21 08:04 Dose: 1 puffs Documented by: Furosemide (Furosemide 80 Mg Tab) 80 mg PO BID17 [facility] Stop: 05/29/21 16:59 Last Admin: 04/30/21 08:03 Dose: 80 mg Documented by: Guaifenesin (Guaifenesin 600 Mg Tabcr) 1,200 mg PO Q12 [facility] Stop: 05/25/21 20:59 Last Admin: 04/30/21 08:03 Dose: 1,200 mg Documented by: Levothyroxine Sodium (Levothyroxine Sodium 150 Mcg Tablet) 150 mcg PO DAILYBB [facility] Stop: 05/24/21 06:29 Last Admin: 04/30/21 06:01 Dose: 150 mcg Documented by: Magnesium Oxide (Magnesium Oxide 400 Mg Tab) 400 mg PO DAILY [facility] Stop: 05/25/21 10:29 Last Admin: 04/30/21 08:02 Dose: 400 mg Documented by: Metolazone (Metolazone 5 Mg Tablet) 5 mg PO QAM [facility] Stop: 05/31/21 08:59 Multivitamins (Multivitamin Tab) 1 tab PO QAM [facility] Stop: 05/24/21 08:59 Last Admin: 04/30/21 08:07 Dose: 1 tab Documented by: Multivitamins/Minerals (Calcium 600mg + Vit D 400 Iu Tab) 1 tab PO QAM [facility] Stop: 05/24/21 08:59 Last Admin: 04/30/21 08:06 Dose: 1 tab Documented by: Nystatin (Nystatin Powder 15gm Btl) 1 appln EXT TID [facility] Stop: 05/24/21 13:59 Last Admin: 04/30/21 08:07 Dose: 1 appln Documented by: Ondansetron HCl (Ondansetron Inj 2 Mg/Ml 2 Ml Vial) 4 mg IV Q6H PRN PRN Reason: Nausea Stop: 05/23/21 20:37 Oxycodone HCl (Oxycodone Hcl Ir 5 Mg Tab (Immediate Release)) 2.5 mg PO Q4H PRN PRN Reason: Pain Stop: 05/07/21 20:37 Pantoprazole Sodium (Pantoprazole 40 Mg Tab) 40 mg PO QAM [facility] Stop: 05/24/21 08:59 Last Admin: 04/30/21 08:07 Dose: 40 mg Documented by: Potassium Chloride (Potassium Chloride Crtab 20 Meq Tabcr) 20 meq PO TID [facility] Stop: 05/30/21 13:59 Promethazine HCl (Promethazine Hcl Syrup 6.25 Mg/5 Ml) 6.25 mg PO Q6H PRN PRN Reason: cough Stop: 05/23/21 20:51 Psyllium Hydrophilic Mucilloid (Psyllium 58.6% Powder Packet) 1 pkt PO DAILY [facility] Stop: 05/24/21 08:59 Last Admin: 04/30/21 08:06 Dose: 1 pkt Documented by: Umeclidinium/Vilanterol (Umeclidinium/Vilanterol 62.5/25mcg 7 Puffs/Inhaler) 1 puffs INH DAILY [facility] Stop: 05/24/21 08:59 Last Admin: 04/30/21 08:04 Dose: 1 puffs Documented by: Vitamin D (Cholecalciferol 1,000 Units 25 Mcg Tab) 1,000 units PO QAM [facility] Stop: 05/24/21 08:59 Last Admin: 04/30/21 08:07 Dose: 1,000 units Documented by: PG Care Time/CCT Total # of Minutes Spent Total Time Spent with Patient: Total time spent is greater than 50% in coordination of care (as documented) at patient's floor/unit and/or counseling patient: Coding Level of Care Code 84300 Subseq Hosp Care Lvl 3 Diagnoses Cellulitis of both lower extremities L03.115; L03.116 Lung consolidation J18.1 Edema due to hypoalbuminemia E88.09 COPD (chronic obstructive pulmonary disease) 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 Lymphedema I89.0 Hypertension I10 Hypertension type: essential hypertension Pulmonary embolism I26.99 Acute cor pulmonale presence: unspecified Chronicity: unspecified Pulmonary embolism type: unspecified GERD (gastroesophageal reflux disease) K21.9 Esophagitis presence: esophagitis presence not specified PRISCILA (obstructive sleep apnea) G47.33 Hypothyroidism E03.9 Hypothyroidism type: unspecified Chronic respiratory failure with hypoxia J96.11 Acute on chronic diastolic (congestive) heart failure I50.33 Candidal diaper rash B37.2; L22 (1) Hypothyroidism Hypothyroidism type: unspecified Qualified Code(s): E03.9 - Hypothyroidism, unspecified (2) COPD (chronic 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
[2021-05-01] MEDS: LEVOTHYROXINE SODIUM 150 MCG TABLET PO SCH (05:34)
[2021-05-01] MEDS: ALBUT/IPRATROP 3MG/0.5MG NEB 3 ML VIAL NEB SCH ×2 (07:21→19:46)
[2021-05-01] MEDS: PSYLLIUM 58.6% POWDER PACKET PO SCH (07:43)
[2021-05-01] MEDS: UMECLIDINIUM/VILANTEROL 62.5/25MCG 7 PUFFS/INHALER INH SCH (07:43)
[2021-05-01] MEDS: FLUTICASONE FUROATE 100MCG 14 PUFFS/INHALER INH SCH (07:43)
[2021-05-01] MEDS: NYSTATIN POWDER 15GM BTL EXT SCH ×3 (07:44→20:04)
[2021-05-01] MEDS: CHOLECALCIFEROL 1,000 UNITS 25 MCG TAB PO SCH (07:44)
[2021-05-01] MEDS: BENZONATATE 100 MG CAPSULE PO SCH ×3 (07:45→20:01)
[2021-05-01] MEDS: POTASSIUM CHLORIDE CRTAB 20 MEQ TABCR PO SCH ×3 (07:45→20:04)
[2021-05-01] MEDS: guaiFENesin 600 MG TABCR PO SCH ×2 (07:45→20:02)
[2021-05-01] MEDS: MULTIVITAMIN TAB PO SCH (07:45)
[2021-05-01] MEDS: FUROSEMIDE 80 MG TAB PO SCH ×2 (07:45→16:19)
[2021-05-01] MEDS: dilTIAZem ER 180 MG CAPCR PO SCH (07:45)
[2021-05-01] MEDS: DOXYCYCLINE HYCLATE 100 MG CAP PO SCH ×2 (07:45→20:02)
[2021-05-01] MEDS: metOLazone 5 MG TABLET PO SCH (07:45)
[2021-05-01] MEDS: PANTOprazole 40 MG TAB PO SCH (07:45)
[2021-05-01] MEDS: APIXABAN 5 MG TABLET PO SCH ×2 (07:46→20:01)
[2021-05-01] MEDS: CALCIUM 600MG + VIT D 400 IU TAB PO SCH (07:46)
[2021-05-01] MEDS: AMOXICILLIN/CLAVULANATE 875 MG TAB PO SCH ×2 (07:46→16:19)
[2021-05-01] MEDS: MAGNESIUM OXIDE 400 MG TAB PO SCH (07:47)
[2021-05-01 08:09] LABS: BUN Creatinine Ratio 14.8 (10-20); Calcium 8.5 mg/dl (8.5-10.1); Creatinine Clr Calc Pharmacy 50.2 ml/min; Est GFR (African American) 62.3 ml/min; Est GFR (Non-African American) 53.7 ml/min; Potassium 3.5 mmol/L (3.5-5.1)
--- NOTE | 2021-05-01 10:38 | Hospitalist Progress Note ---
Date of Service May 01, 2021 Assessment & Plan (1) Acute on chronic diastolic (congestive) heart failure: Plan: -cont Lasix 80mg PO BID -continue Zaroxolyn 5mg qAM fluid restrict to 1500mL day daily weight, I/O's, he is negative 1000mL the past 24 hours Cr is 1.2 and K is 3.5, repeat BMP tomorrow likely send home on increased Lasix dose for a few days at home will need to weigh himself every morning (2) Cellulitis of both lower extremities: Plan: Isma is an 85-year-old male with a past medical history of bilateral cellulitis, COPD, diastolic CHF, and chronic lymphedema who presents with evidence of fluid overload and bilateral cellulitis. Bilateral cellulitis Recent admission to [facility] in March 2021 for similar Patient treated with Rocephin/Vanco with improvement at that time Patient initially on Rocephin/Vanco and improving. 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 - No history of Pseudomonas colonization or DM, antibiotics converted to Unas yn/doxycycline for coverage of anaerobes as noted in my consolidation section, change to Augmentin/doxycycline on 04/29, would complete a full two weeks of treatment, last day 05/07 Chronic lymphedema management as below Continue Lasix 80mg PO BID for time being to remove excess fluid, still with pitting edema, will make him prone to infections (3) Lung consolidation: Plan: - CT:C: Emphysema with chronic bronchitis comment tracheobronchial secretions and bibasilar mucous plugging. Biapical airspace opacities appear similar to mildly improved from 03/26/2021, likely on an infectious or inflammatory basis. Persistent bibasilar consolidation with new airspace opacities of the superior segment left lower lobe. Findings are suggestive of pneumonia versus aspiration pneumonitis. Unchanged mediastinal and hilar adenopathy, likely reactive. Small pleural effusions. - CRP improved today, continue to trend as outpatient Chest CT re-demonstrates biapical airspace opacities mildly improved, but with persistent bibasilar consolidation and new airspace opacities of the left lower lobe which could be consistent with pneumonia versus aspiration pneumonitis. Patient endorses chronic cough which may have worsened in the last week or two. should follow up with pulmonology, consider PET vs bronchoscopy outpatient will discharge on Doxy and Augmentin, take until 05/07 (4) Edema due to hypoalbuminemia: Plan: 2nd to low albumin, lymphedema, acute/chronic diastolic CHF -daily bmp, Cr is stable today - Baseline weight ~96-97kg by review, today he is 97.8kg but has edema, so maybe his dry weight is a little less than previously thought -Creatinine stable, continue Lasix 80mg PO twice daily and steady diuresis continue Zaroxolyn 5mg qAM prior to Lasix fluid restrict to 1500mL a day (5) COPD (chronic obstructive pulmonary disease): Plan: With superimposed pulmonary edema, progressing well Continue nasal cannula oxygen as needed goal greater than 90% Patient with abnormal CT 1 month ago with bilateral pleural infiltrates and very high sed rate. Continue inhalers/nebs Patient with continued O2 requirement, CT as noted in consolidation section, see discussion and lung consolidation 2 step 04/30, he required 3L at rest and 6L on exertion, not ready to go home, too much oxygen required try to improve with diuresis and antibiotics down to room air today at rest, improving (6) Lymphedema: Plan: See above (7) Hypertension: Plan: change Verapamil to Diltiazem to try to provide better HR control still slightly tachy in 100's monitor BP, stable this morning at 8am prior EKG showed sinus tachycardia, PACs, never found to have afib (8) Pulmonary embolism: Plan: -Continue apixaban -Dx March with such -Rx - [address] Burt (9) GERD (gastroesophageal reflux disease): Plan: Continue PPI (10) PRISCILA (obstructive sleep apnea): Plan: CPAP at bedtime (11) Hypothyroidism: Plan: Continue levothyroxine 50 mcg daily TSH January 2021 wnl (12) Chronic respiratory failure with hypoxia: Plan: normally only wears 2L at night this morning down to room air at rest (13) Candidal diaper rash: Plan: -nystatin powder TID -apply to penile head (balanitis) as well Plan: keep in hospital for further diuresis, home tomorrow is likely Admission and Anticipated Discharge Date Admission Date: April 23, 2021 Subjective reviewed labs, Cr is 1.2 and K is 3.5, tolerating diuresis, negative 1000mL based on I/O breathing is stable, eating fairly well coughing less he still has erythema and edema in his legs, he has them elevated with recliner no fever/chills, no nausea, no diarrhea discussed going home tomorrow as he is off oxygen at this time, he agrees with plan Review of Systems Review of Systems: All systems reviewed & are unremarkable except as noted in Subjective Respiratory: + cough and + dyspnea on exertion; no dyspnea Cardiovascular: + edema; no chest pain and no palpitations Integumentary: + erythema (bilateral lower legs) Physical Exam Constitutional: well developed, well nourished and comfortable; no acute distress Neck: trachea midline, no thyromegaly Respiratory: normal respiratory effort; no respiratory distress, no labored breathing, no cough and not tachypneic Auscultation: lungs clear to auscultation bilaterally Cardiovascular: Rate/Rhythm: regular rhythm and + tachycardic Heart Sounds: normal S1 and normal S2; no murmur Extremities: normal capillary refill and + edema (pitting to the knees bilaterally) Gastrointestinal (Abdomen): normal bowel sounds, soft, nontender, no hepatosplenomegaly Musculoskeletal: no cyanosis or clubbing, extremities motor strength 5/5 Skin: + erythema (lower legs bilaterally, wrapped, warm, not tender) Neurologic: normal touch/pain/proprioception, CN's II-XI intact bilaterally, moves all extremities and awake; no focal motor deficits Psychiatric: A+Ox3, euthymic affect Results & Data Results & Data ([facility]) Vital Signs (Past 12 Hours) Vital Signs Temp Pulse Resp BP BP Pulse Ox 05/01/21 07:35 36.7 C 105 H 20 122/75 95 05/01/21 07:21 101 H 20 93 04/30/21 23:00 36.9 C 104 H 20 100/59 L 92 Laboratory Results Laboratory Results - last 24 hr 05/01/21 07:07 Sodium 141 Potassium 3.5 Chloride 106 Carbon Dioxide 28 Anion Gap 6.0 BUN 18 Creatinine 1.22 Est Cr Clr Drug Dosing 50.2 Est GFR ( Amer) 62.3 Est GFR (Non-Af Amer) 53.7 BUN/Creatinine Ratio 14.8 Glucose 92 Calcium 8.5 Medications Administered Current Inpatient Medications Acetaminophen (Acetaminophen 325 Mg Tab) 650 mg PO Q4H PRN PRN Reason: Pain or Fever Stop: 05/23/21 20:37 Last Admin: 04/26/21 08:04 Dose: 650 mg Documented by: Albuterol (Albut/Ipratrop 3mg/0.5mg Neb 3 Ml Vial) 3 ml NEB BIDR [facility] Stop: 05/25/21 18:59 Last Admin: 05/01/21 07:21 Dose: 3 ml Documented by: Amoxicillin/Clavulanate Potassium (Amoxicillin/Clavulanate 875 Mg Tab) 1 tab PO BIDM [facility] Stop: 05/04/21 16:59 Last Admin: 05/01/21 07:46 Dose: 1 tab Documented by: Apixaban (Apixaban 5 Mg Tablet) 5 mg PO BID [facility] Stop: 05/23/21 20:59 Last Admin: 05/01/21 07:46 Dose: 5 mg Documented by: Benzonatate (Benzonatate 100 Mg Capsule) 100 mg PO TID [facility] Stop: 05/25/21 15:59 Last Admin: 05/01/21 07:45 Dose: 100 mg Documented by: Diltiazem HCl (Diltiazem Er 180 Mg Capcr) 180 mg PO QAM [facility] Stop: 05/30/21 08:59 Last Admin: 05/01/21 07:45 Dose: 180 mg Documented by: Doxycycline Hyclate (Doxycycline Hyclate 100 Mg Cap) 100 mg PO BID [facility] Stop: 05/05/21 20:59 Last Admin: 05/01/21 07:45 Dose: 100 mg Documented by: Fluticasone Furoate (Fluticasone Furoate 100mcg 14 Puffs/Inhaler) 1 puffs INH DAILY [facility] Stop: 05/24/21 08:59 Last Admin: 05/01/21 07:43 Dose: 1 puffs Documented by: Furosemide (Furosemide 80 Mg Tab) 80 mg PO BID17 [facility] Stop: 05/29/21 16:59 Last Admin: 05/01/21 07:45 Dose: 80 mg Documented by: Guaifenesin (Guaifenesin 600 Mg Tabcr) 1,200 mg PO Q12 [facility] Stop: 05/25/21 20:59 Last Admin: 05/01/21 07:45 Dose: 1,200 mg Documented by: Levothyroxine Sodium (Levothyroxine Sodium 150 Mcg Tablet) 150 mcg PO DAILYBB [facility] Stop: 05/24/21 06:29 Last Admin: 05/01/21 05:34 Dose: 150 mcg Documented by: Magnesium Oxide (Magnesium Oxide 400 Mg Tab) 400 mg PO DAILY [facility] Stop: 05/25/21 10:29 Last Admin: 05/01/21 07:47 Dose: 400 mg Documented by: Metolazone (Metolazone 5 Mg Tablet) 5 mg PO Q24H [facility] Stop: 05/31/21 08:29 Last Admin: 05/01/21 07:45 Dose: 5 mg Documented by: Multivitamins (Multivitamin Tab) 1 tab PO QAM [facility] Stop: 05/24/21 08:59 Last Admin: 05/01/21 07:45 Dose: 1 tab Documented by: Multivitamins/Minerals (Calcium 600mg + Vit D 400 Iu Tab) 1 tab PO QAM [facility] Stop: 05/24/21 08:59 Last Admin: 05/01/21 07:46 Dose: 1 tab Documented by: Nystatin (Nystatin Powder 15gm Btl) 1 appln EXT TID [facility] Stop: 05/24/21 13:59 Last Admin: 05/01/21 07:44 Dose: 1 appln Documented by: Ondansetron HCl (Ondansetron Inj 2 Mg/Ml 2 Ml Vial) 4 mg IV Q6H PRN PRN Reason: Nausea Stop: 05/23/21 20:37 Oxycodone HCl (Oxycodone Hcl Ir 5 Mg Tab (Immediate Release)) 2.5 mg PO Q4H PRN PRN Reason: Pain Stop: 05/07/21 20:37 Pantoprazole Sodium (Pantoprazole 40 Mg Tab) 40 mg PO QAM [facility] Stop: 05/24/21 08:59 Last Admin: 05/01/21 07:45 Dose: 40 mg Documented by: Potassium Chloride (Potassium Chloride Crtab 20 Meq Tabcr) 20 meq PO TID [facility] Stop: 05/30/21 13:59 Last Admin: 05/01/21 07:45 Dose: 20 meq Documented by: Promethazine HCl (Promethazine Hcl Syrup 6.25 Mg/5 Ml) 6.25 mg PO Q6H PRN PRN Reason: cough Stop: 05/23/21 20:51 Psyllium Hydrophilic Mucilloid (Psyllium 58.6% Powder Packet) 1 pkt PO DAILY [facility] Stop: 05/24/21 08:59 Last Admin: 05/01/21 07:43 Dose: 1 pkt Documented by: Umeclidinium/Vilanterol (Umeclidinium/Vilanterol 62.5/25mcg 7 Puffs/Inhaler) 1 puffs INH DAILY [facility] Stop: 05/24/21 08:59 Last Admin: 05/01/21 07:43 Dose: 1 puffs Documented by: Vitamin D (Cholecalciferol 1,000 Units 25 Mcg Tab) 1,000 units PO QAM [facility] Stop: 05/24/21 08:59 Last Admin: 05/01/21 07:44 Dose: 1,000 units Documented by: PG Care Time/CCT Total # of Minutes Spent Total Time Spent with Patient: Total time spent is greater than 50% in coordination of care (as documented) at patient's floor/unit and/or counseling patient: Coding Level of Care Code 51789 Subseq Hosp Care Lvl 3 Diagnoses Acute on chronic diastolic (congestive) heart failure I50.33 Cellulitis of both lower extremities L03.115; L03.116 Lung consolidation J18.1 Edema due to hypoalbuminemia E88.09 COPD (chronic obstructive pulmonary disease) 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 Lymphedema I89.0 Hypertension I10 Hypertension type: essential hypertension Pulmonary embolism I26.99 Pulmonary embolism type: unspecified Chronicity: unspecified Acute cor pulmonale presence: unspecified GERD (gastroesophageal reflux disease) K21.9 Esophagitis presence: esophagitis presence not specified PRISCILA (obstructive sleep apnea) G47.33 Hypothyroidism E03.9 Hypothyroidism type: unspecified Chronic respiratory failure with hypoxia J96.11 Candidal diaper rash B37.2; L22 (1) COPD (chronic obstructive pulmonary disease) COPD type: emphysema Emphysema type: unspecified Qualified Code(s): J43.9 - Emphysema, unspecified (2) Hypertension Hypertension type: essential hypertension Qualified Code(s): I10 - Essential (primary) hypertension (3) Pulmonary embolism Pulmonary embolism type: unspecified Chronicity: unspecified Acute cor pulmonale presence: unspecified Qualified Code(s): I26.99 - Other pulmonary embolism without acute cor pulmonale (4) GERD (gastroesophageal reflux disease) Esophagitis presence: esophagitis presence not specified Qualified Code(s): K21.9 - Gastro-esophageal reflux disease without esophagitis (5) Hypothyroidism Hypothyroidism type: unspecified Qualified Code(s): E03.9 - Hypothyroidism, unspecified
[2021-05-02] MEDS: LEVOTHYROXINE SODIUM 150 MCG TABLET PO SCH (05:29)
[2021-05-02] MEDS: ALBUT/IPRATROP 3MG/0.5MG NEB 3 ML VIAL NEB SCH (07:10)
[2021-05-02 08:02] LABS: Hematocrit (blood only) 34.8 % (42-52); Hemoglobin 10.9 g/dL (14.0-18.0); Mean Corpuscular Hemoglobin 27.3 pg (25-34); Mean Corpuscular Hgb Conc 31.3 g/dL (32-36); Mean Corpuscular Volume 87.2 fL (80-100); Mean Platelet Volume 10.7 fL (7.4-10.4); Platelet Count 340 K/uL (130-400); RDW Coefficient of Variation 15.2 % (11.5-14.5); RDW Standard Deviation 48.4 fL (36.4-46.3); Red Blood Count 3.99 M/uL (4.7-6.1); White Blood Count 10.41 K/uL (4.8-10.8)
[2021-05-02] MEDS: POTASSIUM CHLORIDE CRTAB 20 MEQ TABCR PO SCH ×2 (08:18→13:55)
[2021-05-02] MEDS: APIXABAN 5 MG TABLET PO SCH (08:18)
[2021-05-02] MEDS: CALCIUM 600MG + VIT D 400 IU TAB PO SCH (08:18)
[2021-05-02] MEDS: guaiFENesin 600 MG TABCR PO SCH (08:18)
[2021-05-02] MEDS: dilTIAZem ER 180 MG CAPCR PO SCH (08:19)
[2021-05-02] MEDS: PANTOprazole 40 MG TAB PO SCH (08:19)
[2021-05-02] MEDS: PSYLLIUM 58.6% POWDER PACKET PO SCH (08:19)
[2021-05-02] MEDS: AMOXICILLIN/CLAVULANATE 875 MG TAB PO SCH (08:19)
[2021-05-02] MEDS: metOLazone 5 MG TABLET PO SCH (08:20)
[2021-05-02] MEDS: DOXYCYCLINE HYCLATE 100 MG CAP PO SCH (08:20)
[2021-05-02] MEDS: MULTIVITAMIN TAB PO SCH (08:20)
[2021-05-02] MEDS: CHOLECALCIFEROL 1,000 UNITS 25 MCG TAB PO SCH (08:20)
[2021-05-02] MEDS: MAGNESIUM OXIDE 400 MG TAB PO SCH (08:20)
[2021-05-02] MEDS: BENZONATATE 100 MG CAPSULE PO SCH ×2 (08:20→13:55)
[2021-05-02] MEDS: UMECLIDINIUM/VILANTEROL 62.5/25MCG 7 PUFFS/INHALER INH SCH (08:21)
[2021-05-02] MEDS: FLUTICASONE FUROATE 100MCG 14 PUFFS/INHALER INH SCH (08:21)
[2021-05-02] MEDS: FUROSEMIDE 80 MG TAB PO SCH (08:21)
[2021-05-02] MEDS: NYSTATIN POWDER 15GM BTL EXT SCH ×2 (08:22→13:56)
[2021-05-02 08:38] LABS: BUN Creatinine Ratio 15.6 (10-20); Calcium 8.9 mg/dl (8.5-10.1); Creatinine Clr Calc Pharmacy 47.2 ml/min; Est GFR (African American) 57.7 ml/min; Est GFR (Non-African American) 49.8 ml/min; Magnesium 2.2 mg/dl (1.8-2.4)
--- NOTE | 2021-05-03 22:13 | Discharge Summary ---
Date of Service May 02, 2021 Admission HPI Per Admitting Provider The patient is an 85-year-old male with a past medical history including HFpEF, livedo reticularis, lymphedema, pulmonary embolism, sepsis, pulmonary nodule, MRSA, PVD, SIRS, vitamin D deficiency, hypothyroidism, overlap syndrome, GERD, COPD O2 dependency, hypoalbuminemia, gout, BPH with LUTS and hypertension. Patient presents to the emergency department with progressively worsening swelling and seepage of lower extremities along with redness and warmth. His is been bandaging his lower extremities bilaterally. In general he feels fatigued and generally weak. Principal Diagnosis Bilateral lower extremity cellulitis Acute on chronic diastolic heart failure Acute on chronic hypoxic respiratory failure Discharge Exam Constitutional well developed, well nourished and comfortable; no acute distress Neck trachea midline, no thyromegaly Respiratory normal respiratory effort; no respiratory distress, no labored breathing, no cough and not tachypneic Auscultation: lungs clear to auscultation bilaterally Cardiovascular Rate/Rhythm: regular rate and regular rhythm Heart Sounds: normal S1 and normal S2; no murmur Extremities: normal capillary refill and + edema (pitting to mid shins, ankles bilaterally, much improved) Gastrointestinal (Abdomen) normal bowel sounds, soft, nontender, no hepatosplenomegaly Musculoskeletal no cyanosis or clubbing, extremities motor strength 5/5 Skin + turgor decreased, + crusts, + dry skin (no open ulcers or wounds) and + erythema (lower legs bilaterally, venous stasis changes); no rashes and no wound Neurologic normal touch/pain/proprioception, CN's II-XI intact bilaterally, moves all extremities and awake; no focal motor deficits Psychiatric A+Ox3, euthymic affect Discharge Data Allergies Allergy/AdvReac Type Severity Reaction Status Date / Time clarithromycin Allergy Intermediate RASH Verified 04/23/21 16:37 Consultations 04/23/21 17:43 ED Decision to Admit Stat Ordered Studies 04/27/21 19:38 CT chest diagnostic wo con Routine Hospital Course (1) Acute on chronic diastolic (congestive) heart failure: - treated with Lasix 80mg PO BID for several days, he normally takes 80mg daily - for two days prior to discharge, added Zaroxolyn 5mg qAM 30 minutes prior to Lasix, worked quite well fluid restrict to 1500mL day daily weight, I/O's, negative fluid balance and weight is trending down Cr is stable and K is > 3.5 plan for home: daily weights, fluid restrict to 1800mL a day, CHF instructions provided Lasix 80mg daily on MWF will use Zaroxolyn 5mg 30 min prior to Lasix follow up with PCP next week, recommend checking BMP apply compression stockings during the day, keep legs elevated often, whenever sitting (2) Cellulitis of both lower extremities: Isma is an 85-year-old male with a past medical history of bilateral cellulitis, COPD, diastolic CHF, and chronic lymphedema who presents with evidence of fluid overload and bilateral cellulitis. Bilateral cellulitis Recent admission to [facility] in March 2021 for similar Patient treated with Rocephin/Vanco with improvement at that time Patient initially on Rocephin/Vanco and improving. 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 - No history of Pseudomonas colonization or DM, antibiotics converted to Unasyn/doxycycline for coverage of anaerobes as noted in my consolidation section, change to Augmentin/doxycycline on 04/29 7 more days on discharge legs are red but not hot, skin is dry, flaking skin, no evidence of open wounds or ulcers compression during the day, keep legs elevated home nursing will be arranged to help patient use Lasix and Zaroxolyn to keep fluid levels down, prevent excessive edema that could lead to blistering and more infection (3) Lung consolidation: - CT:C: Emphysema with chronic bronchitis comment tracheobronchial secretions and bibasilar mucous plugging. Biapical airspace opacities appear similar to mildly improved from 03/26/2021, likely on an infectious or inflammatory basis. Persistent bibasilar consolidation with new airspace opaci ties of the superior segment left lower lobe. Findings are suggestive of pneumonia versus aspiration pneumonitis. Unchanged mediastinal and hilar adenopathy, likely reactive. Small pleural effusions. - CRP improved today, continue to trend as outpatient Chest CT re-demonstrates biapical airspace opacities mildly improved, but with persistent bibasilar consolidation and new airspace opacities of the left lower lobe which could be consistent with pneumonia versus aspiration pneumonitis. Patient endorses chronic cough which may have worsened in the last week or two. should follow up with pulmonology, consider PET vs bronchoscopy outpatient (4) Edema due to hypoalbuminemia: 2nd to low albumin, lymphedema, acute/chronic diastolic CHF -daily bmp, Cr has been stable despite aggressive diuresis, volume overloaded - Baseline weight ~96-97kg by review, today he is 97.8kg but has edema, so maybe his dry weight is a little less than previously thought see diastolic HF above for plan (5) COPD (chronic obstructive pulmonary disease): With superimposed pulmonary edema, progressing well Continue nasal cannula oxygen as needed goal greater than 90% Patient with abnormal CT 1 month ago with bilateral pleural infiltrates and very high sed rate. Continue inhalers/nebs Patient with continued O2 requirement, CT as noted in consolidation section, see discussion and lung consolidation 2 step 8/, he required 3L at rest and 6L on exertion, not ready to go home, too much oxygen required now down to room air at rest at times but using 2L intermittently will go home on 2L at rest and 4L on exertion suspect he has progressed to point of needing continuous oxygen (6) Lymphedema: See above (7) Hypertension: changed Verapamil to Diltiazem to try to provide better HR control HR is 80-100 at rest monitor BP, stable several EKG showed sinus tachycardia, PACs, never found to have afib was also on monitor for a few days, no afib (8) Pulmonary embolism: -Continue apixaban -Dx March with such -Rx - [address] Burt (9) GERD (gastroesophageal reflux disease): Continue PPI (10) PRISCILA (obstructive sleep apnea): CPAP at bedtime (11) Hypothyroidism: Continue levothyroxine 50 mcg daily TSH January 2021 wnl (12) Chronic respiratory failure with hypoxia: formerly on 2L at night and with activity now will be on 2L continuous, increase to 4L on exertion (13) Candidal diaper rash: -nystatin powder TID -apply to penile head (balanitis) as well continue for a week after discharge discharge to home, home health follow up with PCP next week should check BMP needs to follow up with pulmonology in next few weeks for lung consolidation, saw Dr. Burt in the past I certify that this patient is under my care and that I, or a physicians casting assistant working with me, had a face to-face encounter that meets the home health [id number] encounter requirements with this patient. The encounter with the patient was in whole, or in part, for the following medical condition, which is the primary reason for home health care (list medical condition): I certify that, based on my findings, the following services are medically necessary home health services: My clinical findings support the need for the above services because: OT Assess ADL Status and Restore Function w ADLs PT Assessment for Endurance / Balance / Strength Skilled Nsg Assessment Further, I certify that my clinical findings support that this patient is homebound (i.e. absences from home require considerable and taxing effort and are for medical reasons or jewish services or infrequently or of short duration when for other reasons) because: Certification for Home Health Services: Based on the above findings, I certify that this patient is confined to the home and needs intermittent nursing home care, physical therapy and/or speech therapy or continues to need occupational therapy. The patient is under my care, and I have initiated the establishment of the plan of care. This patient will be followed by a physician who will periodically review the plan of care. Total Time Total Time Spent Total Time Spent (In Minutes): 35 Total Time Includes: Examination of the Patient, Discharge Planning and Medication Reconciliation Discharge Plan Discharge Items Patient Disposition: Home - Home Health Services Reason For Visit: B/L LE CELLULITIS Discharge Diagnosis: Bilateral lower extremity cellulitis Acute on chronic diastolic heart failure Condition on Discharge: Good Goals: use Lasix and Zaroxolyn to keep fluid off complete course of antibiotics use compression stockings on legs during the day Activity: Resume your previous activity Weightbearing: Full weightbearing Non-emergency contact: Primary Care Provider Call non-emergency contact if: you have any medication questions Follow-up/Referrals: Tyler Hawkins MD [Primary Care Provider] - 05/08/21 10:15 am Diet: Heart Healthy Fluids: 1800ml (7 cups) Addtl Attending Provider Instructions: Medications: - DOXYCYCLINE and AUGMENTIN: antibiotics for lower extremity cellulitis, take for 7 more days, next doses due this evening - ZAROXOLYN: this is diuretic that will help Lasix work more effectively take on Thursday, Thursday and Thursday only, make sure you take this 30 minutes prior to Lasix to maximize the effect - DILTIAZEM: this replaces Verapamil, better at controlling heart rate and you responded well to it, 180mg daily - NYSTATIN: continue to use powder for fungal rash, apply to areas that are affected Lower extremity cellulitis, edema no open wounds, recommend using compression stockings during the day and keeping legs elevated whenever you are seated finish 7 more days of antibiotics no fever/chills, normal WBC and skin looks much better Acute on chronic diastolic heart failure responded well to Lasix 80mg twice a day and the addition of Zaroxolyn in the morning on discharge, can go back to Lasix 80mg daily I want you to take the Zaroxolyn on Thursday, Thursday and Thursday mornings, 30 minutes prior to Lasix you can start this tomorrow since it is Thursday and next dose would be Thursday I want you to take extra potassium on Thursday and Thursday as well, 40mEq in the morning follow up with Dr. Hawkins next week home health will resume visits also, you qualify to use oxygen now continuously, use 2L at all times, you can increase to 4L on exertion Pending Studies at Discharge: No Stand-Alone Forms: My [facility] [employer], Smoking Cessation Medications and DC Order Prescriptions: New doxycycline hyclate 100 mg Capsule 100 mg PO BID 7 Days Qty: 14 RF: 0 diltiazem HCl [Tiazac] 180 mg Capsule,Extended Release 24 Hr 180 mg PO QAM 30 Days Qty: 30 RF: 3 metolazone 5 mg Tablet 5 mg PO 3XWK Qty: 30 RF: 3 amoxicillin-pot clavulanate [Augmentin] 875-125 mg Tablet 1 tab PO BIDM 7 Days Qty: 14 RF: 0 nystatin [Nystop] 100,000 unit/gram Powder 1 applic EXT TID 7 Days Qty: 60 RF: 1 Continued Prilosec OTC 20 mg tablet,delayed release (DR/EC) 20 mg PO QAM Qty: 90 RF: 3 albuterol sulfate [Ventolin HFA] 90 mcg/actuation HFA aerosol inhaler 2 puff inhalation Q4H PRN (Reason: shortness of breath or wheezing) Qty: 8.5 RF: 5 ipratropium-albuterol 0.5 mg-3 mg(2.5 mg base)/3 mL solution for nebulization 3 ml INH QID PRN (Reason: shortness of breath) Qty: 1080 RF: 3 benzonatate [Tessalon Perles] 100 mg capsule 100 mg PO TID PRN (Reason: cough) Qty: 12 RF: 0 promethazine-DM 6.25-15 mg/5 mL syrup 5 ml PO Q6H PRN (Reason: cough) Qty: 473 RF: 0 levothyroxine 150 mcg tablet 150 mcg PO QAM RF: 0 calcium carbonate-vitamin D3 [Calcium 500 With D] 500 mg(1,250mg) -400 unit Tablet 1 tab PO QAM RF: 0 magnesium 250 mg Tablet 250 mg PO 3XWK RF: 0 cholecalciferol (vitamin D3) 1,000 unit (25 mcg) tablet 1,000 units PO QAM RF: 0 multivitamin Tablet 1 tab PO QAM RF: 0 Trelegy Ellipta 100-62.5-25 mcg blister with device 1 inh INH QAM RF: 0 furosemide 40 mg tablet 80 mg PO QAM RF: 0 potassium chloride 20 mEq tablet,ER particles/crystals 20 meq PO QAM Qty: 90 RF: 3 acetaminophen [Tylenol Extra Strength] 500 mg Tablet 1,000 mg PO Q6 PRN (Reason: Pain) RF: 0 oxycodone 5 mg tablet 2.5 mg PO Q4H PRN (Reason: Pain) RF: 0 psyllium husk 3 gram/5.4 gram Powder 1 tbsp PO DAILY RF: 0 Discontinued verapamil 180 mg tablet extended release 180 mg PO HS Qty: 90 RF: 3 (DME) Oxygen Home Liters Per Minute See Rx Instructions .ROUTE .MEDSUPPLY Qty: 1 RF: 0 No Action apixaban 5 mg tablet 5 mg PO BID Qty: 60 RF: 2 (DME) Oxygen Home Liters Per Minute See Rx Instructions .ROUTE RF: 0 Discharge Orders: Discharge Order (Routine); Ordered 05/02/21 Ordered By: Henry Wyatt Admission Data Admit Date/Time: 04/23/21 18:15 Attending Provider: Henry Wyatt Admit Provider: Jimmie Baires Primary Care Provider: Tyler Hawkins. Other Providers: Jimmie Baires Other Interventions: Discharge Summary Assessment (RN) Last Done: 05/02/21 15:42 Coding Level of Care Code D/C DAY MANAGEMENT >30 MINS Diagnoses Acute on chronic diastolic (congestive) heart failure I50.33 Cellulitis of both lower extremities L03.115; L03.116 Lung consolidation J18.1 Edema due to hypoalbuminemia E88.09 COPD (chronic obstructive pulmonary disease) 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 Lymphedema I89.0 Hypertension I10 Hypertension type: essential hypertension Pulmonary embolism I26.99 Acute cor pulmonale presence: unspecified Chronicity: unspecified Pulmonary embolism type: unspecified GERD (gastroesophageal reflux disease) K21.9 Esophagitis presence: esophagitis presence not specified PRISCILA (obstructive sleep apnea) G47.33 Hypothyroidism E03.9 Hypothyroidism type: unspecified Chronic respiratory failure with hypoxia J96.11 Candidal diaper rash B37.2; L22
== END 2021-05-02 16:22 | disposition home health service (06) | DRG 602 ==
LOC: ED 13:42 → SUATTDRO 18:15 → 2N 18:15
DX: Z86.14 Personal history of Methicillin resistant Staphylococcus aureus infection; L03.115 Cellulitis of right lower limb; I11.0 Hypertensive heart disease with heart failure; Z88.1 Allergy status to other antibiotic agents; E03.9 Hypothyroidism, unspecified; N40.0 Benign prostatic hyperplasia without lower urinary tract symptoms; I27.82 Chronic pulmonary embolism; I50.33 Acute on chronic diastolic (congestive) heart failure; L22 Diaper dermatitis; J43.9 Emphysema, unspecified; E88.09 Other disorders of plasma-protein metabolism, not elsewhere classified; J96.11 Chronic respiratory failure with hypoxia; Z87.891 Personal history of nicotine dependence; L03.116 Cellulitis of left lower limb; I89.0 Lymphedema, not elsewhere classified; K21.9 Gastro-esophageal reflux disease without esophagitis

== ENCOUNTER 2022-10-04 05:17 | Inpatient (IN) ==
[2022-10-04 06:05] LABS: Basophils # (auto) 0.05 K/uL (0-0.2); Basophils % (auto) 0.4 %; Eosinophils # (auto) 0.13 K/uL (0-0.50); Eosinophils % (auto) 1.1 %; Hematocrit (blood only) 45.1 % (40.1-51.0); Hemoglobin 14.6 g/dl (14.0-18.0); Immature Granulocytes # (auto) 0.17 K/uL (0.00-0.02); Immature Granulocytes % (auto) 1.5 %; Lymphocytes # (auto) 2.09 K/uL (1.2-3.4); Lymphocytes % (auto) 18.3 %; Mean Corpuscular Hemoglobin 28.1 pg (25.0-34.0); Mean Corpuscular Hgb Conc 32.4 g/dL (32.0-36.0); Mean Corpuscular Volume 86.9 fL (80.0-100.0); Mean Platelet Volume 12.6 fL (9.4-12.4); Monocytes % (auto) 10.5 %; Neutrophils # (auto) 7.77 K/uL (1.4-6.5); Neutrophils % (auto) 68.2 %; Platelet Count 284 K/uL (130-400); RDW Coefficient of Variation 14.7 % (11.5-14.5); RDW Standard Deviation 46.8 fL (36.4-46.3); Red Blood Count 5.19 M/uL (4.63-6.08); White Blood Count 11.41 K/ul (4.8-10.8)
[2022-10-04 06:11] LABS: Calcium 8.9 mg/dl (8.5-10.1); Potassium 2.8 mmol/L (3.5-5.1)
[2022-10-04 06:16] LABS: BUN Creatinine Ratio 16.8 (10-20); Creatinine Clr Calc Pharmacy 39.8 ml/min; Est GFR (African American) 48.6 ml/min; Est GFR (Non-African American) 41.9 ml/min
[2022-10-04 06:19] LABS: Partial Thromboplastin Ratio 1.1; Partial Thromboplastin Time 29.1 Seconds (21.0-31.0); Prothrombin Time 10.8 Seconds (9.0-12.0)
--- NOTE | 2022-10-04 07:38 | Emergency Department Note ---
Impression & Plan CHI (closed head injury), Contusion of face, Contusion of elbow, Skin tear, Syncope, Elbow fracture, Elevated troponin, Cellulitis, Acute hypokalemia ED Provider Note ED Provider Note NAME: NICOLAS YU AGE:87 SEX: Male : 1935 ARRIVES VIA: EMS INFORMANT: Patient ED PROVIDER(s): Chery Pires DO CHIEF COMPLAINT: Fall, head injury, elbow pain HPI: This is an 87-year-old male presents from home after a fall. Patient states he woke and needed to use the bathroom. He states he got to the bathroom and remembers sitting on the toilet and the next thing he knew he was laying on the bathroom floor. He does not recall feeling dizzy or lightheaded while walking to the bathroom or upon being seated. He states he had difficulty getting up and realized he was bleeding. Patient states he does not use on a anticoagulation. He states he has pain at the right elbow and at the left shoulder. He denies headaches, dizziness, vision changes, vomiting, chest pain, shortness of breath. He denies any lower extremity pain or injury. PAST MEDICAL HISTORY:See Below PAST SURGICAL HISTORY:See Below FAMILY HISTORY:See Below SOCIAL HISTORY:See Below HOME MEDICATIONS:See Below ALLERGIES:See Below VITALS:See Below PHYSICAL EXAMINATION: GENERAL: alert, well appearing, well nourished, no distress, non-toxic HEAD: nc, multiple areas of facial contusion and dried blood present, mild facial bone tenderness along the right zygomatic arch, and no midface instability, no hall signs, no raccoon eyes EYE EXAM: normal conjunctiva, PERRL and EOM's grossly intact OROPHARYNX: no exudate, no erythema, lips, buccal mucosa, and tongue normal and mucous membranes are moist NECK: supple, no nuchal rigidity, no adenopathy, non-tender LUNGS: Clear to auscultation. Normal chest wall mechanics, no w/r/r HEART: no murmurs, S1 normal and S2 normal ABDOMEN: abdomen soft, non-tender, normo-active bowel sounds, no masses, no rebound or guarding. BACK: Back is symmetrical on inspection and there is no deformity, no midline tenderness, no CVA tenderness. SKIN: no rashes, petechiae, orbruising UPPER EXTREMITIES: upper extremities are grossly normal. FROM, nml pulses b/l. Contusions noted bilaterally to hands, forearms, and elbow, skin tear noted over right lateral elbow, small skin tears noted along dorsal aspect of hands bilaterally, no joint effusions, no obvious deformities, pain with palpation over the lateral epicondyle the right upper extremity LOWER EXTREMITIES: 2+ pitting edema. FROM, nml pulses b/l. Bilateral erythema noted nearly circumferential and extending superiorly along the lateral aspect of the knee with diffuse scaly dermatitis bilaterally NEURO EXAM: Normal sensorium, cranial nerves II-XII grossly intact, normal speech, no facial droop,nogross weakness of arms, no gross weakness of legs. Gross sensation intact. No ataxia. Vital Signs: reviewed and remarkable Differential Diagnosis: Closed head injury, fracture, cellulitis, CHF, ICH, subluxation, dislocation, syncope, as well as others were considered MEDICAL DECISION MAKING: This is an 87-year-old male presents emergency department following a syncopal event and fall at home. Patient had no prodromal symptoms, no prior similar episodes. Due to head injury, bruising, and skin tear, and concern for events patient contacted 911 and was brought to the emergency room. Patient was afebrile and hemodynamically stable. He does wear oxygen chronically. Patient sent for CT and x-ray imaging to rule out acute traumatic injury. Possible avulsion fracture noted on x-ray of the right elbow. Skin tears repaired at bedside mostly with Steri-Strips however a few stitches to loosely approximate the skin tear on the right upper extremity were also placed. The right upper extremity was splinted due to concern for possible fracture noted and accompanying pain on exam. CBC and BMP had been ordered and sent by night shift supervisor prior to my arrival and evaluation. Additional labs were added after discussion with the patient due to concern for the syncope with no prodromal symptoms and no obvious etiology. Patient found to have a markedly elevated troponin although denied chest pain and shortness of breath, and EKG did not reveal any acute changes. Patient then sent for CT angiography of the chest. This did not reveal any acute pathology. Case discussed with hospitalist for additional evaluation and management. Patient was made aware of all results, verbalized understanding, and was in agreement with the plan. Patient was also given IV antibiotics due to concern for evolving cellulitis of the lower extremities and urinalysis still pending at that time in case of occult UTI. Patient given oral potassium repletion. Consultation(s): 1352: Discussed with Dr. Mcqueen. ER Treatment Provided: See below Diagnostics Interpreted By Me: -ECG: Sinus tachycardia at 108, normal QRS, prolonged QTC, leftward axis, PVCs, nonspecific ST/T wave change -Cardiac Monitoring: An order was placed for continuous cardiac monitoring. The monitor shows a rate of 95 with normal sinus rhythm. -Laboratory studies: As stated above and show below. -Imaging studies: [] Triage Nursing Note Reviewed Prior/Outside Records Reviewed Procedures: skin tear repair Skin tear at right forearm copiously irrigated and skin reapproximated. Skin tear measured 4cm x 7cm. Lidocaine used for local anesthetic which patient tolerated well, total of 8 mL of lidocaine was injected. Steri-Strips used to outline the skin tear and to reinforce placement of stitches for loose approximation. 4 stitches placed using 4-0 nylon in interrupted fashion. Patient tolerated the procedure well. Area was then dressed with Xeroform and bandage prior to splinting of the right upper extremity. Critical Care: Critical care of 42 min performed to assess and manage high likelihood of life- threatening cardiac or vascular emergency, involving labs and imaging performed with assessment to evaluate syncope diagnosis with frequent reassessment. This time includes bedside time, treatment discussions with patient/family/consultants, documentation time and excludes procedure time. Past Med/Surg History Medical History Acute on chronic diastolic (congestive) heart failure Back problem BPH (benign prostatic hyperplasia) Candidal diaper rash Cellulitis Cellulitis Cellulitis of both lower extremities Cellulitis of left leg Chronic obstructive pulmonary disease Fluid retention in legs GERD (gastroesophageal reflux disease) History of bronchitis History of cellulitis Hypertension Hypothyroidism Hypothyroidism (acquired) Left lumbar radiculopathy Leg length discrepancy Livedo reticularis Lumbar spinal stenosis On home oxygen therapy 02 2LPM AT HS Osteoarthritis Osteoporosis, unspecified Personal history of MRSA (methicillin resistant Staphylococcus aureus) Pulmonary edema Pulmonary nodule Sepsis Sepsis Sleep apnea cpap Spinal stenosis Urethral stricture Vitamin D deficiency Surgical History History of cardiac cath 12/2019 - [place] - increased edema - no stents/angioplasty History of cholecystectomy History of colonoscopy History of herniorrhaphy left inguinal History of partial knee replacement left History of tonsillectomy History of tooth extraction Hx of surgical procedure LEFT FEMUR FX WITH REPAIR Family History Mother Cerebral atherosclerosis Father Diverticulosis Other No significant family history Denies family history of Ovarian cancer Prostate cancer Myocardial infarction Breast cancer Colorectal cancer Social History Smoking Status: Never smoker Tobacco Type: Cigarettes Age Started Using Tobacco: 22; packs per day: 1; Cigarettes Per Day: 20; Second Hand Exposure: No; Hx Alcohol Use: No Hx Substance Use: Yes Last Used Substance: Hours (ago) Last Used Substance Other:: medical marijuana for back pain last used at 0400 Preferred Language: Cameroonian Communication Ability: Effective Visual Impairment: No Limitations Hearing Ability: Normal 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: No Beliefs That Will Affect Care: None marital status: Current Living Situation: Spouse current occupational status: retired Feels Safe at Home: Yes Safety Concerns: Feels Safe At This Time Dental Care, Regularly: No Physical Activity Frequency: 1-2 Times per Week Seatbelt Use: always Sunscreen Use: Yes Assistive Devices: Denture - Upper, Denture - Lower, Glasses, Oxygen - at Night and Walker Allergies Allergies Allergy/AdvReac Type Severity Reaction Status Date / Time clarithromycin Allergy Intermediate RASH Verified 10/04/22 14:47 Home Meds Home Medications Medication Instructions Recorded Confirmed magnesium 250 mg tablet 250 mg PO 3XWK 08/02/18 10/04/22 cholecalciferol (vitamin D3) 25 1,000 units PO QAM 05/30/19 10/04/22 mcg (1,000 unit) tablet calcium carbonate 500 mg-vitamin 1 tab PO QAM 06/22/20 10/04/22 D3 10 mcg (400 unit) tablet (Calcium 500 With D) multivitamin 1 tab PO QAM 09/04/20 10/04/22 acetaminophen 500 mg tablet 1,000 mg PO Q6 PRN Pain 03/25/21 10/04/22 (Tylenol Extra Strength) Oxygen Home 05/03/21 09/17/22 psyllium husk 3 gram/5.4 gram oral 1 tbsp PO DAILY PRN Constipation 08/31/21 01/21/23 powder oxycodone 5 mg tablet 2.5 mg PO Q4H PRN Pain 10/04/22 10/04/22 Previous Rx's Medication Instructions Recorded furosemide 40 mg tablet 80 mg PO DAILY #180 tabs 07/16/21 ciclopirox 8 % topical solution 1 applic topical DAILY #6.6 mL 08/06/21 promethazine-DM 6.25 mg-15 mg/5 mL 5 ml PO Q6H PRN cough #473 mL 09/24/21 oral syrup omeprazole magnesium 20 mg 20 mg PO QAM #90 tabs 11/08/21 tablet,delayed release (Prilosec OTC) levothyroxine 150 mcg tablet 150 mcg PO QAM #90 tabs 02/03/22 potassium chloride 20 mEq 40 meq PO 3XWK #72 tabs 03/25/22 tablet,extended release(part/cryst) albuterol sulfate 90 mcg/actuation 2 puff inhalation Q4H PRN 04/18/22 aerosol inhaler (Ventolin HFA) shortness of breath or wheezing #8.5 grams diltiazem HCl 180 mg capsule,24 180 mg PO QAM 90 days #90 caps 04/22/22 hr,extended release (Tiazac) fluticasone fur. 100 mcg-umeclid 1 inh inhalation QAM #3 Inhalers 08/26/22 62.5 mcg-vilant 25 mcg inhalat.powder (Trelegy Ellipta) Results & Data (ED) Vital Signs Vital Signs - 24 hr 10/04/22 05:27 10/04/22 05:47 10/04/22 07:26 Temperature 36.8 C Temperature Source Oral Pulse Rate 97 H 95 H Pulse Rate [Apical] 96 H Pulse Rhythm Regular Regular Pulse Rhythm [Apical] Pulse Strength Normal Respiratory Rate 20 20 20 Respiratory Effort / Characteristics Non-Labored Spontaneous Non-Labored Spontaneous Respiratory Depth Normal Normal Respiratory Pattern Regular Regular Blood Pressure 149/87 H Blood Pressure [Left Arm] 137/84 Blood Pressure Mean 107 Blood Pressure Mean [Left Arm] 101 Blood Pressure Position Lying Blood Pressure Position [Left Arm] Sitting Pulse Oximetry 93 93 96 Oxygen Delivery Method Nasal Cannula Nasal Cannula Room Air Oxygen Flow Rate 2 3 Sepsis Recent Fever Within 48 Hours No Sepsis New/Unexplained Change in Mental Status N/A Sepsis Action Taken by Nursing No Action Required 10/04/22 09:26 10/04/22 11:00 Temperature Temperature Source Pulse Rate Pulse Rate [Apical] 84 114 H Pulse Rhythm Pulse Rhythm [Apical] Irregular Pulse Strength Respiratory Rate 18 14 Respiratory Effort / Characteristics Non-Labored Spontaneous Respiratory Depth Normal Respiratory Pattern Regular Blood Pressure Blood Pressure [Left Arm] 113/72 Blood Pressure Mean Blood Pressure Mean [Left Arm] 85 Blood Pressure Position Blood Pressure Position [Left Arm] Pulse Oximetry 97 98 Oxygen Delivery Method Room Air Room Air Oxygen Flow Rate Sepsis Recent Fever Within 48 Hours Sepsis New/Unexplained Change in Mental Status Sepsis Action Taken by Nursing Laboratory Data 10/04/22 05:27 10/04/22 05:27 Lab Results 10/04/22 10/04/22 10/04/22 Range/Units 05:27 05:27 05:27 WBC 11.41 H (4.8-10.8) K/ul RBC 5.19 (4.63-6.08) M/uL Hgb 14.6 (14.0-18.0) g/dl Hct 45.1 (40.1-51.0) % MCV 86.9 (80.0-100.0) fL MCH 28.1 (25.0-34.0) pg MCHC 32.4 (32.0-36.0) g/dL RDW Std Deviation 46.8 H (36.4-46.3) fL RDW Coeff of Jordan 14.7 H (11.5-14.5) % Plt Count 284 (130-400) K/uL MPV 12.6 H (9.4-12.4) fL Immature Gran % (Auto) 1.5 % Neut % (Auto) 68.2 % Lymph % (Auto) 18.3 % [place] % (Auto) 10.5 % Eos % (Auto) 1.1 % Baso % (Auto) 0.4 % Neut # (Auto) 7.77 H (1.4-6.5) K/uL Lymph # (Auto) 2.09 (1.2-3.4) K/uL [place] # (Auto) 1.20 H (0.24-0.82) K/uL Eos # (Auto) 0.13 (0-0.50) K/uL Baso # (Auto) 0.05 (0-0.2) K/uL Immature Gran # (Auto) 0.17 H (0.00-0.02) K/uL PT 10.8 (9.0-12.0) Seconds INR 1.0 (0.9-1.1) APTT 29.1 (21.0-31.0) Seconds PTT Ratio 1.1 Sodium 139 (136-145) mmol/L Potassium 2.8 L (3.5-5.1) mmol/L Chloride 97 L (98-107) mmol/L Carbon Dioxide 33 H (21-32) mmol/L Anion Gap 9 (3-11) BUN 25 H (6-23) mg/dl Creatinine 1.49 H (0.6-1.4) mg/dl Est Cr Clr Drug Dosing 39.8 ml/min Est GFR ( Amer) 48.6 ml/min Est GFR (Non-Af Amer) 41.9 ml/min BUN/Creatinine Ratio 16.8 (10-20) Glucose 110 H (70-99(Fasting)) mg/dl Calcium 8.9 (8.5-10.1) mg/dl Magnesium (1.7-2.4) mg/dl Total Bilirubin (0.2-1.0) mg/dl Direct Bilirubin (0-0.2) mg/dl AST (13-39) U/L ALT (7-52) U/L Alkaline Phosphatase (34-104) U/L Troponin I High Sens (0-20) pg/ml Total Protein (6.0-8.3) gm/dl Albumin (3.4-5.0) gm/dl 10/04/22 Range/Units 05:27 WBC (4.8-10.8) K/ul RBC (4.63-6.08) M/uL Hgb (14.0-18.0) g/dl Hct (40.1-51.0) % MCV (80.0-100.0) fL MCH (25.0-34.0) pg MCHC (32.0-36.0) g/dL RDW Std Deviation (36.4-46.3) fL RDW Coeff of Jordan (11.5-14.5) % Plt Count (130-400) K/uL MPV (9.4-12.4) fL Immature Gran % (Auto) % Neut % (Auto) % Lymph % (Auto) % [place] % (Auto) % Eos % (Auto) % Baso % (Auto) % Neut # (Auto) (1.4-6.5) K/uL Lymph # (Auto) (1.2-3.4) K/uL [place] # (Auto) (0.24-0.82) K/uL Eos # (Auto) (0-0.50) K/uL Baso # (Auto) (0-0.2) K/uL Immature Gran # (Auto) (0.00-0.02) K/uL PT (9.0-12.0) Seconds INR (0.9-1.1) APTT (21.0-31.0) Seconds PTT Ratio Sodium (136-145) mmol/L Potassium (3.5-5.1) mmol/L Chloride (98-107) mmol/L Carbon Dioxide (21-32) mmol/L Anion Gap (3-11) BUN (6-23) mg/dl Creatinine (0.6-1.4) mg/dl Est Cr Clr Drug Dosing ml/min Est GFR ( Amer) ml/min Est GFR (Non-Af Amer) ml/min BUN/Creatinine Ratio (10-20) Glucose (70-99(Fasting)) mg/dl Calcium (8.5-10.1) mg/dl Magnesium 2.4 (1.7-2.4) mg/dl Total Bilirubin 1.1 H (0.2-1.0) mg/dl Direct Bilirubin 0.3 H (0-0.2) mg/dl AST 17 (13-39) U/L ALT 8 (7-52) U/L Alkaline Phosphatase 77 (34-104) U/L Troponin I High Sens 559.8 H* (0-20) pg/ml Total Protein 7.3 (6.0-8.3) gm/dl Albumin 3.4 (3.4-5.0) gm/dl Administered Medications Calcium Carbonate (Calcium Carbonate 500 Mg Chewable Tab) 500 mg PO Q4H PRN PRN Reason: Indigestion Stop: 11/04/22 11:05 Last Admin: 10/05/22 11:19 Dose: 500 mg Documented By: [id number] Calcium/Vitamin D (Calcium 600mg + Vit D 400 Iu Tab) 1 tab PO QAM [facility] Stop: 11/04/22 08:59 Last Admin: 10/05/22 08:07 Dose: 1 tab Documented By: [id number] Diltiazem HCl (Diltiazem Hcl 180 Mg Capcr) 180 mg PO QAM [facility] Stop: 11/04/22 08:59 Last Admin: 10/05/22 08:07 Dose: 180 mg Documented By: [id number] Enoxaparin Sodium (Enoxaparin Inj 40 Mg/0.4 Ml Syr) 40 mg SQ Q24H [facility] Stop: 11/03/22 16:59 Last Admin: 10/04/22 17:50 Dose: 40 mg Documented By: [id number] Fluticasone Furoate (Fluticasone Furoate 100mcg 14 Puffs/Inhaler) 1 puffs INH QAM [facility] Stop: 11/04/22 08:59 Last Admin: 10/05/22 08:08 Dose: 1 puffs Documented By: [id number] Potassium Chloride/Sodium Chloride (Normal Saline W/20 Meq Kcl) 20 meq in 1,000 mls @ 80 mls/hr IV .[id number] [facility]; Protocol Stop: 11/04/22 08:44 Last Admin: 10/05/22 10:00 Dose: 80 mls/hr Documented By: [id number] Levothyroxine Sodium (Levothyroxine Sodium 150 Mcg Tablet) [facility] Stop: 11/04/22 06:29 Last Admin: 10/05/22 06:31 Dose: 150 mcg Documented By: MARIELA Miscellaneous (Order Awaiting Actio:Ciclopirox 8 % Solution) 1 each N/A QS [facility] Stop: 11/04/22 00:00 Last Admin: 10/05/22 07:47 Dose: Not Given Documented By: [id number] Admin: 10/05/22 01:41 Dose: Not Given Documented By: MARIELA Oxycodone HCl (Oxycodone Hcl Ir 5 Mg Tab (Immediate Release)) 5 mg PO Q4H PRN PRN Reason: moderate-severe pain Stop: 10/18/22 16:33 Last Admin: 10/05/22 11:36 Dose: 5 mg Documented By: [id number] Admin: 10/04/22 18:07 Dose: 5 mg Documented By: [id number] Pantoprazole Sodium (Pantoprazole 40 Mg Tab) 40 mg PO DAILY [facility] Stop: 11/04/22 08:59 Last Admin: 10/05/22 08:07 Dose: 40 mg Documented By: [id number] Potassium Chloride (Potassium Chloride Crtab 20 Meq Tabcr) 20 meq PO BID [facility] Stop: 11/03/22 20:59 Last Admin: 10/05/22 08:07 Dose: 20 meq Documented By: [id number] Admin: 10/04/22 20:30 Dose: 20 meq Documented By: MARIELA Psyllium Hydrophilic Mucilloid (Psyllium Or Guar Gum Fiber Powder Packet) 1 pkt PO DAILY PRN PRN Reason: Constipation Stop: 11/03/22 16:58 Last Admin: 10/05/22 08:13 Dose: 1 pkt Documented By: [id number] Umeclidinium/Vilanterol (Umeclidinium/Vilanterol 62.5/25mcg 7 Puffs/Inhaler) 1 puffs INH DAILY [facility] Stop: 11/04/22 08:59 Last Admin: 10/05/22 08:08 Dose: 1 puffs Documented By: [id number] Vitamin D (Cholecalciferol 1,000 Units 25 Mcg Tab) 1,000 units PO QAM [facility] Stop: 11/04/22 08:59 Last Admin: 10/05/22 08:07 Dose: 1,000 units Documented By: [id number] Discontinued Medications Sodium Chloride (Nss 1000ml) 1,000 mls @ 125 mls/hr IV .Q8H [facility] Stop: 11/03/22 06:59 Last Infusion: 10/04/22 17:00 Dose: 0 mls/hr Documented By: [id number] Admin: 10/04/22 16:58 Dose: Not Given Documented By: [id number] Admin: 10/04/22 08:51 Dose: 125 mls/hr Documented By: RAIZA Acetaminophen (Ofirmev) 1,000 mg in 100 mls @ 400 mls/hr IV NOW STA Stop: 10/04/22 09:17 Last Infusion: 10/04/22 10:27 Dose: 0 mls/hr Documented By: Admin: 10/04/22 09:42 Dose: 400 mls/hr Documented By: RAIZA Ceftriaxone Sodium 1,000 mg/ (Dextrose) 50 mls @ 100 mls/hr IV NOW STA Stop: 10/04/22 10:41 Last Infusion: 10/04/22 11:49 Dose: 0 mls/hr Documented By: Admin: 10/04/22 11:15 Dose: 100 mls/hr Documented By: [email or web address] Lactated Ringer's (Lr) 1,000 mls @ 125 mls/hr IV .Q8H [facility] Stop: 10/05/22 00:33 Last Infusion: 10/05/22 01:42 Dose: 0 mls/hr Documented By: Admin: 10/04/22 17:50 Dose: 125 mls/hr Documented By: [id number] Ioversol (Optiray 320 500ml) 102 ml IV ONCE ONE Stop: 10/04/22 13:04 Last Admin: 10/04/22 13:03 Dose: 102 ml Documented By: [email or web address] Lidocaine HCl (Lidocaine 2% Local 50 Ml Vial) Confirm Administered Dose 50 ml .ROUTE .STK-MED ONE Stop: 10/04/22 10:03 Last Admin: 10/04/22 10:35 Dose: Not Given Documented By: RAIZA Oxycodone HCl (Oxycodone Hcl Ir 5 Mg Tab (Immediate Release)) 5 mg PO NOW STA Stop: 10/04/22 10:13 Last Admin: 10/04/22 10:33 Dose: 5 mg Documented By: RAIZA Potassium Chloride (Potassium Chloride Crtab 20 Meq Tabcr) 40 meq PO NOW STA Stop: 10/04/22 11:46 Last Admin: 10/04/22 14:02 Dose: Not Given Documented By: TRUNG Potassium Chloride (Potassium Chloride 10 Meq Tabcr) Confirm Administered Dose 40 meq PO .STK-MED ONE Stop: 10/04/22 14:01 Last Admin: 10/04/22 14:02 Dose: 40 meq Documented By: TRUNG Imaging Data Radiologist's Impression: Cervical Spine CT 10/04/22 05:50 CT cervical spine wo con CLINICAL HISTORY: fall with head strike. TECHNIQUE: Multidetector row helical CT of the cervical spine was performed without administration of intravenous contrast. Coronal and sagittal reformations were obtained. Automated dose lowering techniques and/or adjustment according to patient size were utilized for this exam. Comparison: None available at the time of this dictation CT cervical spine 02/23/2021 FINDINGS: No acute fractures or subluxations are identified. Degenerative changes are seen in the visualized spine. The alignment is normal. Biapical scarring is seen. IMPRESSION: Degenerative changes without evidence of acute bony injury. ACT 112: Negative or not required by law. Electronically signed by: Henry Ellsworth M.D. 10/04/2022 9:[address] 10/04/22 05:51 CT head/brain wo con CLINICAL HISTORY: fall with head strike Technique: Contiguous axial CT images of the head were acquired from the base of the skull to the vertex without intravenous contrast administration. Images were viewed in brain, subdural and bone windows. Automated dose lowering techniques and/or adjustment according to patient size were utilized for this exam. Comparison: Comparison is made to CT head 02/23/2021 Findings: Areas of decreased attenuation are present in the periventricular and subcortical white matter bilaterally consistent with small vessel ischemic disease. Generalized cerebral atrophy with commensurate enlargement of the ventricles, sulci, and cisterns is also present. There is no acute intracranial hemorrhage or evidence of acute territorial infarction. No shift of the midline structures, mass effect, or extra-axial abnormalities are shown. Atherosclerotic calcifications are present in the intracranial segments of the internal carotid arteries. Right maxillary fluid is noted. The orbits appear normal. There are no acute fractures of the calvaria. Scalp swelling is seen in the right maxilla. Impression: Right maxillary soft tissue swelling and maxillary sinus disease. ACT 112: Negative or not required by law. Electronically signed by: Henry Ellsworth M.D. 10/04/2022 9:41 AM Chest X-Ray 10/04/22 06:58 XR chest 1V portable CLINICAL HISTORY: trauma TECHNIQUE: Single frontal radiograph of the chest was obtained. Comparison: Comparison is made to rib series 09/17/2022 FINDINGS: No lines and tubes are seen. The cardiomediastinal silhouette is normal. Atelectasis is seen in the right lung base. Mild emphysema is seen. No evidence of pleural effusion or pneumothorax. IMPRESSION: No acute chest disease. ACT 112: Negative or not required by law. Electronically signed by: Henry Ellsworth M.D. 10/04/2022 8:06 AM Elbow X-Ray 10/04/22 06:58 XR elbow RT min 3V routine CLINICAL HISTORY: trauma TECHNIQUE: 3 views of the right elbow were obtained. Comparison: Comparison is made to left elbow radiograph 02/23/2021 FINDINGS: There is a bony fragment about the lateral epicondyle with a questionable linear lucency in the upper condyle. Joint spaces are well-preserved. There is slight prominence of the anterior humeral fat pad. No soft tissue abnormality is seen. IMPRESSION: Slight prominence of the anterior humeral fat pad. There is an age-indeterminate calcific density about the lateral condyle. Recommend correlation with physical exam to exclude avulsion fracture. ACT 112: Negative or not required by law. Electronically signed by: Henry Ellsworth M.D. 10/04/2022 8:14 AM Hand X-Ray 10/04/22 06:58 XR hand RT min 3V routine CLINICAL HISTORY: trauma TECHNIQUE: 3 views of the right hand were obtained. Comparison: None available at the time of this dictation. FINDINGS: There is no evidence of an acute fracture. Degenerative changes are seen in the joints. Soft tissue swelling is seen most prominently in the second digit. IMPRESSION: Degenerative changes are seen without evidence of acute abnormality. ACT 112: Negative or not required by law. Electronically signed by: Hnery Ellsworth M.D. 10/04/2022 8:21 AM Pelvis X-Ray 10/04/22 06:58 XR pelvis 1-2V routine CLINICAL HISTORY: trauma TECHNIQUE: A single frontal view of the pelvis was obtained. Comparison: Comparison is made to pelvis radiograph 10/22/2021 FINDINGS: Right hip total arthroplasty and left trochanteric nail are seen. Degenerative changes are seen in the visualized spine. No soft tissue abnormality is seen. IMPRESSION: Degenerative changes without evidence of acute abnormality. ACT 112: Negative or not required by law. Electronically signed by: Henry Ellsworth M.D. 10/04/2022 8:03 AM Shoulder X-Ray 10/04/22 06:58 XR shoulder LT min 2V routine CLINICAL HISTORY: trauma TECHNIQUE: 3 views of the left shoulder were obtained. Comparison: None available at the time of this dictation. FINDINGS: There is no evidence of an acute fracture. Joint spaces are well-preserved. The overlying soft tissues are unremarkable. The visualized portions of the lungs are clear. IMPRESSION: No evidence of acute osseous injury. ACT 112: Negative or not required by law. Electronically signed by: Henry Ellsworth M.D. 10/04/2022 8:[address] 10/04/22 10:12 CT facial bones wo con CLINICAL HISTORY: trauma TECHNIQUE: Multidetector row helical CT of the maxillofacial bones was performed without administration of intravenous contrast, and processed with bone and soft tissue algorithms. Coronal and sagittal reformations were obtained. Automated dose lowering techniques and/or adjustment according to patient size were utilized for this exam. CT DOSE: 718.91 mGy.cm Comparison: Comparison is made to CT head 10/04/2022 FINDINGS: Nasal bones are normal. The mandible is intact. The temporomandibular joints are anatomically aligned. Pterygoid plates are intact. Zygomatic arches are intact. The globes are normal and symmetric, without proptosis, obvious disruption or lens dislocation. There is no orbital radiopaque foreign body. The orbital rios are intact. The retrobulbar fat is without evidence of disruption. Extraocular muscles are normal and symmetric. Optic nerve sheath complexes are normal in course and caliber. Right maxillary sinus disease is seen. IMPRESSION: No acute facial fracture. Right maxillary sinus disease. ACT 112: Negative or not required by law. Electronically signed by: Henry Ellsworht M.D. 10/04/2022 11:09 AM Chest CTA 10/04/22 12:28 CT angio chest PE protocol CLINICAL HISTORY: PE TECHNIQUE: Multidetector row helical CT of the chest was performed with angiographic protocol. Coronal and sagittal reformations were obtained. Coronal and sagittal MIPS were obtained from the axial data set and were submitted for review. Automated dose lowering techniques and/or adjustment according to patient size were utilized for this exam. CT DOSE: 492.10 mGy.cm Comparison: Comparison is made to CT chest 05/31/2021 FINDINGS: Lungs and pleura: Diffuse centrilobular emphysema is seen most prominent in the upper lobes. Bronchial wall thickening and atelectasis are seen most prominently in the lower lobes. Scattered groundglass opacities are seen. Heart and pericardium: There is cardiomegaly without evidence of pericardial effusion. Vessels: No evidence of pulmonary embolism. Pulmonary trunk measures 34 mm in diameter. Mediastinum and marsha: Subcentimeter lymph nodes are seen. Chest wall and lower neck: Unremarkable. Abdomen: Unremarkable. Bones: Degenerative changes in the thoracic spine. IMPRESSION: 1. No pulmonary embolus is seen. 2. A few scattered groundglass opacities may represent pneumonia with reactive mediastinal lymph nodes. 3. Cardiomegaly and pulmonary hypertension. ACT 112: Negative or not required by law. Electronically signed by: Henry Ellsworth M.D. 10/04/2022 1:18 PM Discharge Plan Visit Data Chief Complaint: Fall Stated Complaint: FALL w/ MULTIPLE SKIN TEARS AND ABRASIONS ED Provider: Chery Pires Discharge Problem: CHI (closed head injury), Contusion of face, Contusion of elbow, Skin tear, Syncope, Elbow fracture, Elevated troponin, Cellulitis, Acute hypokalemia Patient Disposition: Admitted As Inpatient Discharge Instructions Interventions: ED Discharge Assessment Last Done: 10/04/22 16:15
--- NOTE | 2022-10-04 08:05 | XRay Report ---
XR pelvis 1-2V routine CLINICAL HISTORY: trauma TECHNIQUE: A single frontal view of the pelvis was obtained. Comparison: Comparison is made to pelvis radiograph 10/22/2021 FINDINGS: Right hip total arthroplasty and left trochanteric nail are seen. Degenerative changes are seen in th e visualized spine. No soft tissue abnormality is seen. IMPRESSION: Degenerative changes without evidence of acute abnormality. ACT 112: Negative or not required by law. Electronically signed by: Henry Ellsworth M.D. 10/04/2022 8:03 AM
--- NOTE | 2022-10-04 08:07 | XRay Report ---
XR chest 1V portable CLINICAL HISTORY: trauma TECHNIQUE: Single frontal radiograph of the chest was obtained. Comparison: Comparison is made to rib series 09/17/2022 FINDINGS: No lines and tubes are seen. The cardiomediastinal silhouette is normal. Atelectasis is seen in the r ight lung base. Mild emphysema is seen. No evidence of pleural effusion or pneumothorax. IMPRESSION: No acute chest disease. ACT 112: Negative or not required by law. Electronically signed by: Henry Ellsworth M.D. 10/04/2022 8:06 AM
--- NOTE | 2022-10-04 08:08 | XRay Report ---
XR shoulder LT min 2V routine CLINICAL HISTORY: trauma TECHNIQUE: 3 views of the left shoulder were obtained. Comparison: None available at the time of this dictation. FINDINGS: There is no evidence of an acute fracture. Joint spaces are well-preserved. The overlying soft tissue s are unremarkable. The visualized portions of the lungs are clear. IMPRESSION: No evidence of acute osseous injury. ACT 112: Negative or not required by law. Electronically signed by: Henry Ellsworth M.D. 10/04/2022 8:06 AM
--- NOTE | 2022-10-04 08:16 | XRay Report ---
XR elbow RT min 3V routine CLINICAL HISTORY: trauma TECHNIQUE: 3 views of the right elbow were obtained. Comparison: Comparison is made to left elbow radiograph 02/23/2021 FINDINGS: There is a bony fragment about the lateral epicondyle with a questionable linear lucency in the upper condyle. Joint spaces are well-preserved. There is slight prominence of the anterior humeral fat pad . No soft tissue abnormality is seen. IMPRESSION: Slight prominence of the anterior humeral fat pad. There is an age-indeterminate calcific density abo ut the lateral condyle. Recommend correlation with physical exam to exclude avulsion fracture. ACT 112: Negative or not required by law. Electronically signed by: Henry Ellsworth M.D. 10/04/2022 8:14 AM
--- NOTE | 2022-10-04 08:24 | XRay Report ---
XR hand RT min 3V routine CLINICAL HISTORY: trauma TECHNIQUE: 3 views of the right hand were obtained. Comparison: None available at the time of this dictation. FINDINGS: There is no evidence of an acute fracture. Degenerative changes are seen in the joints. Soft tissue s welling is seen most prominently in the second digit. IMPRESSION: Degenerative changes are seen without evidence of acute abnormality. ACT 112: Negative or not required by law. Electronically signed by: Henry Ellsworth M.D. 10/04/2022 8:21 AM
[2022-10-04] MEDS: SODIUM CHLORIDE 0.9% 1000ML 1,000 ML IV SCH ×2 (08:51→16:58)
[2022-10-04] MEDS ORDERED: ACETAMINOPHEN 1,000 MG/100 ML VIAL IV STA (09:03)
--- NOTE | 2022-10-04 09:42 | CT Scan Report ---
CT head/brain wo con CLINICAL HISTORY: fall with head strike Technique: Contiguous axial CT images of the head were acquired from the base of the skull to the yg lanette without intravenous contrast administration. Images were viewed in brain, subdural and [facility]. Automated dose lowering techniques and/or adjustment according to patient size were utilized for this exam. Comparison: Comparison is made to CT head 02/23/2021 Findings: Areas of decreased attenuation are present in the periventricular and subcortical white matter bilate rally consistent with small vessel ischemic disease. Generalized cerebral atrophy with commensurate e nlargement of the ventricles, sulci, and cisterns is also present. There is no acute intracranial hem orrhage or evidence of acute territorial infarction. No shift of the midline structures, mass effect, or extra-axial abnormalities are shown. Atherosclerotic calcifications are present in the intracran ial segments of the internal carotid arteries. Right maxillary fluid is noted. The orbits appear normal. There are no acute fractures of the calvar ia. Scalp swelling is seen in the right maxilla. Impression: Right maxillary soft tissue swelling and maxillary sinus disease. ACT 112: Negative or not required by law. Electronically signed by: Henry Ellsworth M.D. 10/04/2022 9:41 AM
--- NOTE | 2022-10-04 09:48 | CT Scan Report ---
CT cervical spine wo con CLINICAL HISTORY: fall with head strike. TECHNIQUE: Multidetector row helical CT of the cervical spine was performed without administration of intravenous contrast. Coronal and sagittal reformations were obtained. Automated dose lowering techn iques and/or adjustment according to patient size were utilized for this exam. Comparison: None available at the time of this dictation CT cervical spine 02/23/2021 FINDINGS: No acute fractures or subluxations are identified. Degenerative changes are seen in the visualized sp ine. The alignment is normal. Biapical scarring is seen. IMPRESSION: Degenerative changes without evidence of acute bony injury. ACT 112: Negative or not required by law. Electronically signed by: Henry Ellsworth M.D. 10/04/2022 9:45 AM
[2022-10-04] MEDS ORDERED: LIDOCAINE 2% LOCAL 50 ML VIAL ONE (10:02)
[2022-10-04] MEDS ORDERED: oxyCODONE HCL IR 5 MG TAB (IMMEDIATE RELEASE) PO STA (10:12)
[2022-10-04] MEDS ORDERED: cefTRIAXone SODIUM 1,000 MG in DEXTROSE 5% AD-VAN 50 ML IV STA (10:12)
--- NOTE | 2022-10-04 11:11 | CT Scan Report ---
CT facial bones wo con CLINICAL HISTORY: trauma TECHNIQUE: Multidetector row helical CT of the maxillofacial bones was performed without administrati on of intravenous contrast, and processed with bone and soft tissue algorithms. Coronal and sagittal reformations were obtained. Automated dose lowering techniques and/or adjustment according to patient size were utilized for this exam. CT DOSE: 718.91 mGy.cm Comparison: Comparison is made to CT head 10/04/2022 FINDINGS: Nasal bones are normal. The mandible is intact. The temporomandibular joints are anatomically aligned . Pterygoid plates are intact. Zygomatic arches are intact. The globes are normal and symmetric, without proptosis, obvious disruption or lens dislocation. Ther e is no orbital radiopaque foreign body. The orbital rios are intact. The retrobulbar fat is without evidence of disruption. Extraocular muscles are normal and symmetric. Optic nerve sheath complexes are normal in course and caliber. Right maxillary sinus disease is seen. IMPRESSION: No acute facial fracture. Right maxillary sinus disease. ACT 112: Negative or not required by law. Electronically signed by: Henry Ellsworth M.D. 10/04/2022 11:09 AM
[2022-10-04] MEDS ORDERED: POTASSIUM CHLORIDE CRTAB 20 MEQ TABCR PO STA (11:45)
[2022-10-04 12:06] LABS: Albumin Level 3.4 gm/dl (3.4-5.0); Bilirubin Direct 0.3 mg/dl (0-0.2); Bilirubin,Total 1.1 mg/dl (0.2-1.0); Magnesium 2.4 mg/dl (1.7-2.4); Total Protein 7.3 gm/dl (6.0-8.3)
--- NOTE | 2022-10-04 12:12 | History & Physical Report ---
Date of Service October 04, 2022 Assessment & Plan (1) Syncope: Plan: - Patient synopsized last evening while on the toilet at home having a BM. - Initial suspicion was for PE due to elevated trop of 500 and a history of subsegmental PE in March 2021, He is tachycardic without hypoxia or hypotension. - Chest CTA: No pulmonary embolus is seen. A few scattered ground-glass opacities may represent pneumonia with reactive mediastinal lymph nodes. Cardiomegaly and pulmonary hypertension. - Suspect syncope 2/2 dehydration/volume loss with laxative use over past day in combo with Lasix 80mg daily and metolazone 3x/week. - Initial troponin 559, EKG showing sinus tach with PACs, QTc 522. Patient without any chest pain, palpitations, shortness of breath, lightheadedness, dizziness. - With lymphedema but no evidence to date of HF or cardiac component to edema. His renal function is elevated and potassium low. Appears dry on exam. - IVF LR 125cc/hr,potassium repletion. Hold diuretics for now - Update echo. Carotid dopplers. Trend troponin. - Orthostatic VS daily. (2) Acute on chronic kidney failure: Plan: - Creatinine 1.49, baseline over the past year 1.21.3. - Hold Lasix, metolazone for now. - IVF 125 cc/hour x1 L. - BMP in a.m. - Avoid nephrotoxins, renally dose medications as able. (3) Lymphedema: Plan: - PSYCHIATRIC LPN--> Lasix 80 mg, metolazone 5 mg daily with potassium 40 mill equivalents 3 times/week. - Hold diuretics for now given ALFONSO and hyperkalemia, no evidence of volume overload on exam. - Patient has been evaluated by vascular in the past. He does have some evidence of mild reflux which may be amenable to ablation. - Echo March 2021: LV SF normal, borderline RV enlargement, mild AR, RVSP elevated 40 to 50 mmHg. EF 50-55%. - Seen by heart failure clinic in April 2021, his leg edema is not felt to be cardiac, rather thought to be 2/2 lymphedema as his proBNP has been normal, echo with preserved EF and no valvular disease. Right heart cath in 2019: Normal right and left sided filling pressures. Normal PA pressures. Normal cardiac output. No IVC/bilateral iliac obstructive venous disease. - Strict I/Os, daily weights. (4) Lower leg edema: (5) Hypokalemia: Plan: - Potassium 2.8, on Lasix and metolazone with potassium supplementation. Ordered 4meq KCl in ED; will follow w/ KCl 20 mEq BID. - BMP in AM. - QTc 522, monitor K and Mg daily. Avoid meds known to prolong QT. (6) Avulsion injury of right elbow region: Plan: - Pain in right elbow after a syncopal episode last evening. - Elbow XR: Slight prominence of the anterior humeral fat pad. There is an age- indeterminate calcific density about the lateral condyle. Recommend correlation with physical exam to exclude avulsion fracture. - He is having ongoing pain in the right elbow,received Tylenol and oxycodone so far, pain now minimal. In sling. Continue tylenol for now wit oxycodone for moderate-severe pain. - Orthopedic surgery consulted, appreciate their assistance and recommendations. (7) COPD (chronic obstructive pulmonary disease): (8) PRISCILA (obstructive sleep apnea): (9) Chronic respiratory failure with hypoxia: Plan: - COPD/PRISCILA/chronic respiratory failure with hypoxia. - On his usual 2 L NC on arrival,now room air 98%. No evidence of exacerbation. CXR shows no acute chest disease. - Continue home inhalers, 23 L NC as needed. - Incentive spirometry. (10) Hypertension: Plan: -Continue diltiazem. (11) Hypothyroidism: Plan: - Continue levothyroxine. (12) BPH (benign prostatic hyperplasia): Plan: - Monitor output, bladder scan prn. - Straight cath for >300 cc PVR. Carrero catheter is staigfht cath requires 2+times. (13) GERD (gastroesophageal reflux disease): Plan: -Continue PPI daily. Plan - Admit to medicine with telemetry. - SCDs, Lovenox for VTE ppx. - Full Code. History of Present Illness Chief Complaint: syncopal event last evening Primary Care Provider: Tyler Hawkins MD Isma Wesley is an 87-year-old male with a past medical history of COPD, PRISCILA, chronic respiratory failure with hypoxia on oxygen at night, HFpEF, hypertension, GERD, and hypothyroidism who is presenting today after fall at home. Patient was walking to the bathroom last evening and made it to the toilet, was having a bowel movement when he suddenly passed out to the floor, with near immediate regain of consciousness. He notes he took 2 stool softeners last evening due to constipation. He denies experiencing any chest pain, palpit ations, shortness of breath, lightheadedness, dizziness, abdominal pain, nausea, or vomiting prior to the episode or since. He was able to get himself off the floor with some difficulty and pain specifically to his left shoulder and right elbow and had some bleeding from his arm due to a skin tear. Did not hit his head, not having any head pain. He is not on any blood thinners. No other complaints at this time besides the slightly elevated 1.49, baseline over past year 1.21.3. On presentation, patient has been tachycardic 90-110s, he is mildly hypertensive otherwise vital signs within normal limits, he is on his usual 2 LNC and afebrile. Labs notable for a white count of 11 with a mild left shift, potassium 2.8, creatinine up to 1.49, baseline 1.21.3. Glucose 110. No other electrolyte abnormalities. Imaging which included head CT, face CT, left shoulder x-ray, pelvis x-ray, right hand and right elbow x-ray, CXR is only remarkable for slight prominence of the anterior humeral fat pad and an age-indeterminate calcific density about the lateral condyle, concerning for possible avulsion fracture. Allergies Allergy/AdvReac Type Severity Reaction Status Date / Time clarithromycin Allergy Intermediate RASH Verified 10/04/22 14:47 Home Medications Medication Instructions Recorded Confirmed Type magnesium 250 mg tablet 250 mg PO 3XWK 08/02/18 10/04/22 History cholecalciferol (vitamin D3) 25 1,000 units PO QAM 05/30/19 10/04/22 History mcg (1,000 unit) tablet calcium carbonate 500 mg-vitamin 1 tab PO QAM 06/22/20 10/04/22 History D3 10 mcg (400 unit) tablet (Calcium 500 With D) multivitamin 1 tab PO QAM 09/04/20 10/04/22 History acetaminophen 500 mg tablet 1,000 mg PO Q6 PRN Pain 03/25/21 10/04/22 History (Tylenol Extra Strength) Oxygen Home 05/03/21 09/17/22 History psyllium husk 3 gram/5.4 gram oral 1 tbsp PO DAILY PRN Constipation 05/14/21 10/04/22 History powder furosemide 40 mg tablet 80 mg PO DAILY #180 tabs 07/16/21 10/04/22 Rx ciclopirox 8 % topical solution 1 applic topical DAILY #6.6 mL 08/06/21 10/04/22 Rx promethazine-DM 6.25 mg-15 mg/5 mL 5 ml PO Q6H PRN cough #473 mL 09/24/21 10/04/22 Rx oral syrup omeprazole magnesium 20 mg 20 mg PO QAM #90 tabs 11/08/21 10/04/22 Rx tablet,delayed release (Prilosec OTC) levothyroxine 150 mcg tablet 150 mcg PO QAM #90 tabs 02/03/22 10/04/22 Rx potassium chloride 20 mEq 40 meq PO 3XWK #72 tabs 03/25/22 10/04/22 Rx tablet,extended release(part/cryst) albuterol sulfate 90 mcg/actuation 2 puff inhalation Q4H PRN 04/18/22 10/04/22 Rx aerosol inhaler (Ventolin HFA) shortness of breath or wheezing #8.5 grams diltiazem HCl 180 mg capsule,24 180 mg PO QAM 90 days #90 caps 04/22/22 10/04/22 Rx hr,extended release (Tiazac) fluticasone fur. 100 mcg-umeclid 1 inh inhalation QAM #3 Inhalers 08/26/22 10/04/22 Rx 62.5 mcg-vilant 25 mcg inhalat.powder (Trelegy Ellipta) oxycodone 5 mg tablet 2.5 mg PO Q4H PRN Pain 10/04/22 10/04/22 History Past Med/Surg History Medical History Acute on chronic diastolic (congestive) heart failure Back problem BPH (benign prostatic hyperplasia) Candidal diaper rash Cellulitis Cellulitis Cellulitis of both lower extremities Cellulitis of left leg Chronic obstructive pulmonary disease Fluid retention in legs GERD (gastroesophageal reflux disease) History of bronchitis History of cellulitis Hypertension Hypothyroidism Hypothyroidism (acquired) Left lumbar radiculopathy Leg length discrepancy Livedo reticularis Lumbar spinal stenosis On home oxygen therapy 02 2LPM AT Osteoarthritis Osteoporosis, unspecified Personal history of MRSA (methicillin resistant Staphylococcus aureus) Pulmonary edema Pulmonary nodule Sepsis Sepsis Sleep apnea cpap Spinal stenosis Urethral stricture Vitamin D deficiency Surgical History History of cardiac cath 12/2019 - [place] - increased edema - no stents/angioplasty History of cholecystectomy History of colonoscopy History of herniorrhaphy left inguinal History of partial knee replacement left History of tonsillectomy History of tooth extraction Hx of surgical procedure LEFT FEMUR FX WITH REPAIR Family History Mother Cerebral atherosclerosis Father Diverticulosis Other No significant family history Denies family history of Ovarian cancer Prostate cancer Myocardial infarction Breast cancer Colorectal cancer Social History Smoking Status: Never smoker Tobacco Type: Cigarettes Age Started Using Tobacco: 22; packs per day: 1; Cigarettes Per Day: 20; Second Hand Exposure: No; Hx Alcohol Use: No Hx Substance Use: No Preferred Language: Kosovan Communication Ability: Effective Visual Impairment: No Limitations Hearing Ability: Normal 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 Required: No Beliefs That Will Affect Care: None marital status: Current Living Situation: Spouse current occupational status: retired Feels Safe at Home: Yes Dental Care, Regularly: No Physical Activity Frequency: 1-2 Times per Week Seatbelt Use: always Sunscreen Use: Yes Assistive Devices: Oxygen - Continuous Review of Systems Review of Systems: Constitutional: No fever/chills, weakness, fatigue, myalgias, anorexia, night sweats Eyes: No diplopia, no worsening or blurred vision ENT: normal hearing, no trouble swallowing Respiratory: No cough, sputum, dyspnea at rest or on exertion Cardiovascular: No chest pain, tightness or palpitations Abdomen: No pain, nausea, vomiting, diarrhea or constipation : Denies dysuria, hematuria, increased urgency/frequency, urinary retention Musculoskeletal: Has bilateral chronic shoulder pain, new right elbow pain s/p fall; no other joint pain, calf pain, swelling Neurologic: No weakness, numbness/tingling, or balance problems Psychiatric: No anxiety or depression Skin: No rash or itch Physical Exam Physical Exam: General: awake, alert, no apparent distress Head: Normocephalic, atraumatic ENT: PERRL, EOMI, no pharyngeal exudate, mucous membranes moist Chest: Clear to auscultation, on room air, no adventitious breath sounds Cardiac: Regular rate and rhythm, no murmur, no JVD, normal peripheral pulses, good capillary refill Abdominal: NABS x 4 quadrants, soft, nontender to palpation, no rebound, guarding or tenderness Extremities: right arm in sign with some TTP of elbow, ROM limited secondary to pain; b/l le edema, erythema without pain; otherwise normal inspection, no peripheral edema or erythema elswehere, calfs nontender to palpation Psych: Normal mood and affect Neuro: AAO x 3, strength intact bilaterally and rated 5/5, no motor deficits, speech is clear, no peripheral sensory deficits Skin: no rash or erythema Results & Data Results & Data ([facility]) Vital Signs (Past 12 Hours) Vital Signs Temp Pulse Pulse Resp BP BP Pulse Ox 10/04/22 11:00 114 H 14 113/72 98 10/04/22 09:26 84 18 97 10/04/22 07:26 96 H 20 137/84 96 10/04/22 05:47 95 H 20 93 10/04/22 05:27 36.8 C 97 H 20 149/87 H 93 O2 Del Method O2 Flow Rate 10/04/22 11:00 Room Air 10/04/22 09:26 Room Air 10/04/22 07:26 Room Air 10/04/22 05:47 Nasal Cannula 3 10/04/22 05:27 Nasal Cannula 2 Laboratory Results Abnormal lab results 10/04/22 10/04/22 10/04/22 Range/Units 05:27 05:27 05:27 WBC 11.41 H (4.8-10.8) K/ul RDW Std Deviation 46.8 H (36.4-46.3) fL RDW Coeff of Jordan 14.7 H (11.5-14.5) % MPV 12.6 H (9.4-12.4) fL Neut # (Auto) 7.77 H (1.4-6.5) K/uL Harding # (Auto) 1.20 H (0.24-0.82) K/uL Immature Gran # (Auto) 0.17 H (0.00-0.02) K/uL Potassium 2.8 L (3.5-5.1) mmol/L Chloride 97 L (98-107) mmol/L Carbon Dioxide 33 H (21-32) mmol/L BUN 25 H (6-23) mg/dl Creatinine 1.49 H (0.6-1.4) mg/dl Glucose 110 H (70-99(Fasting)) mg/dl Total Bilirubin 1.1 H (0.2-1.0) mg/dl Direct Bilirubin 0.3 H (0-0.2) mg/dl Troponin I High Sens 559.8 H* (0-20) pg/ml Diagnostic Findings Cervical Spine CT 10/04/22 05:50 CT cervical spine wo con CLINICAL HISTORY: fall with head strike. TECHNIQUE: Multidetector row helical CT of the cervical spine was performed without administration of intravenous contrast. Coronal and sagittal reformations were obtained. Automated dose lowering techniques and/or adjustment according to patient size were utilized for this exam. Comparison: None available at the time of this dictation CT cervical spine 02/23/2021 FINDINGS: No acute fractures or subluxations are identified. Degenerative changes are seen in the visualized spine. The alignment is normal. Biapical scarring is seen. IMPRESSION: Degenerative changes without evidence of acute bony injury. ACT 112: Negative or not required by law. Electronically signed by: Henry Ellsworth M.D. 10/04/2022 9:[address] 10/04/22 05:51 CT head/brain wo con CLINICAL HISTORY: fall with head strike Technique: Contiguous axial CT images of the head were acquired from the base of the skull to the vertex without intravenous contrast administration. Images were viewed in brain, subdural and bone windows. Automated dose lowering techniques and/or adjustment according to patient size were utilized for this exam. Comparison: Comparison is made to CT head 02/23/2021 Findings: Areas of decreased attenuation are present in the periventricular and subcortical white matter bilaterally consistent with small vessel ischemic disease. Generalized cerebral atrophy with commensurate enlargement of the ventricles, sulci, and cisterns is also present. There is no acute intracranial hemorrhage or evidence of acute territorial infarction. No shift of the midline structures, mass effect, or extra-axial abnormalities are shown. Atherosclerotic calcifications are present in the intracranial segments of the internal carotid arteries. Right maxillary fluid is noted. The orbits appear normal. There are no acute fractures of the calvaria. Scalp swelling is seen in the right maxilla. Impression: Right maxillary soft tissue swelling and maxillary sinus disease. ACT 112: Negative or not required by law. Electronically signed by: Henry Ellsworth M.D. 10/04/2022 9:41 AM Chest X-Ray 10/04/22 06:58 XR chest 1V portable CLINICAL HISTORY: trauma TECHNIQUE: Single frontal radiograph of the chest was obtained. Comparison: Comparison is made to rib series 09/17/2022 FINDINGS: No lines and tubes are seen. The cardiomediastinal silhouette is normal. Atelectasis is seen in the right lung base. Mild emphysema is seen. No evidence of pleural effusion or pneumothorax. IMPRESSION: No acute chest disease. ACT 112: Negative or not required by law. Electronically signed by: Henry Ellsworth M.D. 10/04/2022 8:06 AM Elbow X-Ray 10/04/22 06:58 XR elbow RT min 3V routine CLINICAL HISTORY: trauma TECHNIQUE: 3 views of the right elbow were obtained. Comparison: Comparison is made to left elbow radiograph 02/23/2021 FINDINGS: There is a bony fragment about the lateral epicondyle with a questionable linear lucency in the upper condyle. Joint spaces are well-preserved. There is slight prominence of the anterior humeral fat pad. No soft tissue abnormality is seen. IMPRESSION: Slight prominence of the anterior humeral fat pad. There is an age-indeterminate calcific density about the lateral condyle. Recommend correlation with physical exam to exclude avulsion fracture. ACT 112: Negative or not required by law. Electronically signed by: Henry Ellsworth M.D. 10/04/2022 8:14 AM Hand X-Ray 10/04/22 06:58 XR hand RT min 3V routine CLINICAL HISTORY: trauma TECHNIQUE: 3 views of the right hand were obtained. Comparison: None available at the time of this dictation. FINDINGS: There is no evidence of an acute fracture. Degenerative changes are seen in the joints. Soft tissue swelling is seen most prominently in the second digit. IMPRESSION: Degenerative changes are seen without evidence of acute abnormality. ACT 112: Negative or not required by law. Electronically signed by: Henry Ellsworth M.D. 10/04/2022 8:21 AM Pelvis X-Ray 10/04/22 06:58 XR pelvis 1-2V routine CLINICAL HISTORY: trauma TECHNIQUE: A single frontal view of the pelvis was obtained. Comparison: Comparison is made to pelvis radiograph 10/22/2021 FINDINGS: Right hip total arthroplasty and left trochanteric nail are seen. Degenerative changes are seen in the visualized spine. No soft tissue abnormality is seen. IMPRESSION: Degenerative changes without evidence of acute abnormality. ACT 112: Negative or not required by law. Electronically signed by: Henry Ellsworth M.D. 10/04/2022 8:03 AM Shoulder X-Ray 10/04/22 06:58 XR shoulder LT min 2V routine CLINICAL HISTORY: trauma TECHNIQUE: 3 views of the left shoulder were obtained. Comparison: None available at the time of this dictation. FINDINGS: There is no evidence of an acute fracture. Joint spaces are well-preserved. The overlying soft tissues are unremarkable. The visualized portions of the lungs are clear. IMPRESSION: No evidence of acute osseous injury. ACT 112: Negative or not required by law. Electronically signed by: Henry Ellsworth M.D. 10/04/2022 8:[address] 10/04/22 10:12 CT facial bones wo con CLINICAL HISTORY: trauma TECHNIQUE: Multidetector row helical CT of the maxillofacial bones was performed without administration of intravenous contrast, and processed with bone and soft tissue algorithms. Coronal and sagittal reformations were obtained. Automated dose lowering techniques and/or adjustment according to patient size were utilized for this exam. CT DOSE: 718.91 mGy.cm Comparison: Comparison is made to CT head 10/04/2022 FINDINGS: Nasal bones are normal. The mandible is intact. The temporomandibular joints are anatomically aligned. Pterygoid plates are intact. Zygomatic arches are intact. The globes are normal and symmetric, without proptosis, obvious disruption or lens dislocation. There is no orbital radiopaque foreign body. The orbital rios are intact. The retrobulbar fat is without evidence of disruption. Extraocular muscles are normal and symmetric. Optic nerve sheath complexes are normal in course and caliber. Right maxillary sinus disease is seen. IMPRESSION: No acute facial fracture. Right maxillary sinus disease. ACT 112: Negative or not required by law. Electronically signed by: Henry Ellsworth M.D. 10/04/2022 11:09 AM Chest CTA 10/04/22 12:28 CT angio chest PE protocol CLINICAL HISTORY: PE TECHNIQUE: Multidetector row helical CT of the chest was performed with angiographic protocol. Coronal and sagittal reformations were obtained. Coronal and sagittal MIPS were obtained from the axial data set and were submitted for review. Automated dose lowering techniques and/or adjustment according to patient size were utilized for this exam. CT DOSE: 492.10 mGy.cm Comparison: Comparison is made to CT chest 05/31/2021 FINDINGS: Lungs and pleura: Diffuse centrilobular emphysema is seen most prominent in the upper lobes. Bronchial wall thickening and atelectasis are seen most prominently in the lower lobes. Scattered groundglass opacities are seen. Heart and pericardium: There is cardiomegaly without evidence of pericardial effusion. Vessels: No evidence of pulmonary embolism. Pulmonary trunk measures 34 mm in diameter. Mediastinum and marsha: Subcentimeter lymph nodes are seen. Chest wall and lower neck: Unremarkable. Abdomen: Unremarkable. Bones: Degenerative changes in the thoracic spine. IMPRESSION: 1. No pulmonary embolus is seen. 2. A few scattered groundglass opacities may represent pneumonia with reactive mediastinal lymph nodes. 3. Cardiomegaly and pulmonary hypertension. ACT 112: Negative or not required by law. Electronically signed by: Henry Ellsworth M.D. 10/04/2022 1:18 PM ECG Additional Comments: Sinus tachycardia with frequent Premature ventricular complexes Left axis deviation Anterolateral infarct (cited on or before 04-OCT-2022) Abnormal ECG When compared with ECG of 18-MAR-2022 17:18, Significant changes have occurred. Code Status & VTE Plan Code Status Full Code. Supervising Physician Co-Signing Physician Notes Patient seen and examined, chart reviewed, case discussed with Salina Cleveland PA-C and I agree with the assessment and plan as above except as otherwise noted Labs and images reviewed Isma is a 87-year-old male with history of PRISCILA, chronic respiratory failure on home oxygen, heart failure with preserved ejection fraction, hypertension, COPD, GERD, thyroidism who presented after an episode of syncope while on the toilet and which occurred without chest pain, chest pressure, shortness of breath, difficulty breathing, lightheadedness, dizziness, or prodrome. He reports he often misses some doses of diuresis, but did take all doses last week and is felt dry despite some residual leg swelling in ER CT head without acute findings. Patient with past history of PE which completed 3 months of anticoagulation, repeat CTA does not show evidence of CT. Given negative CTA, lack of chest pain, symptoms with episode occurring with micturition and walking? Orthostatic versus vasovagal in the setting of diuresis and hypovolemia. Clinically patient is with bilateral pitting edema at the bedside, lungs are clear. Suspect has venous stasis, discussed venous stasis precautions leg wrapping and elevations. Troponins trended, patient is chest pain-free. DDx does include cardiac arrhythmia with episode of hypoperfusion, continue on telemetry. XR with possible avulsion injury of right elbow, orthopedics fo llowing. Neurovascularly intact. No evidence of acute COPD exacerbation. Acute on chronic CKD with evidence of hypovolemia, hold diuretics. Renally adjust as needed. PG Care Time/CCT Total # of Minutes Spent Total Time Spent with Patient: Total time spent is greater than 50% in coordination of care (as documented) at patient's floor/unit and/or counseling patient: Coding Level of Care Code 19982 INT INP/OBS CARE 2/55MIN Diagnoses Syncope R55 Acute on chronic kidney failure N17.9; N18.9 Lymphedema I89.0 Lower leg edema R60.0 Hypokalemia E87.6 Avulsion injury of right elbow region COPD (chronic obstructive pulmonary disease) 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 PRISCILA (obstructive sleep apnea) G47.33 Chronic respiratory failure with hypoxia J96.11 Hypertension I10 Hypertension type: essential hypertension Hypothyroidism E03.9 Hypothyroidism type: unspecified BPH (benign prostatic hyperplasia) N40.0 GERD (gastroesophageal reflux disease) K21.9 Esophagitis presence: esophagitis presence not specified (1) Hypothyroidism Hypothyroidism type: unspecified Qualified Code(s): E03.9 - Hypothyroidism, unspecified (2) COPD (chronic 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
[2022-10-04 12:30] LABS: Troponin I High Sensitivity 559.8 pg/ml (0-20)
[2022-10-04] MEDS ORDERED: OPTIRAY 320 500ml IV ONE (13:03)
--- NOTE | 2022-10-04 13:21 | CT Scan Report ---
CT angio chest PE protocol CLINICAL HISTORY: PE TECHNIQUE: Multidetector row helical CT of the chest was performed with angiographic protocol. Hayden l and sagittal reformations were obtained. Coronal and sagittal MIPS were obtained from the axial ruslan a set and were submitted for review. Automated dose lowering techniques and/or adjustment according to patient size were utilized for this exam. CT DOSE: 492.10 mGy.cm Comparison: Comparison is made to CT chest 05/31/2021 FINDINGS: Lungs and pleura: Diffuse centrilobular emphysema is seen most prominent in the upper lobes. Bronchia l wall thickening and atelectasis are seen most prominently in the lower lobes. Scattered groundglass opacities are seen. Heart and pericardium: There is cardiomegaly without evidence of pericardial effusion. Vessels: No evidence of pulmonary embolism. Pulmonary trunk measures 34 mm in diameter. Mediastinum and marsha: Subcentimeter lymph nodes are seen. Chest wall and lower neck: Unremarkable. Abdomen: Unremarkable. Bones: Degenerative changes in the thoracic spine. IMPRESSION: 1. No pulmonary embolus is seen. 2. A few scattered groundglass opacities may represent pneumonia with reactive mediastinal lymph nod es. 3. Cardiomegaly and pulmonary hypertension. ACT 112: Negative or not required by law. Electronically signed by: Henry Ellsworth M.D. 10/04/2022 1:18 PM
[2022-10-04] MEDS ORDERED: POTASSIUM CHLORIDE 10 MEQ TABCR PO ONE (14:00)
--- NOTE | 2022-10-04 15:37 | Electrocardiogram Report ---
Test Reason : Blood Pressure : / mmHG Vent. Rate : 108 BPM Atrial Rate : 108 BPM P-R Int : 162 ms QRS Dur : 092 ms QT Int : 390 ms P-R-T Axes : 045 -38 016 degrees QTc Int : 522 ms Sinus tachycardia with frequent Premature ventricular complexes and PAC's Left axis deviation Anterolateral infarct (cited on or before 04-OCT-2022)vs lead placement Abnormal ECG When compared with ECG of 18-MAR-2022 17:18, PVc's are present Confirmed by Yovani Izquierdo ([id number]) on 10/04/2022 3:36:51 PM Referred By: REFERRED SELF Confirmed By:Yovani Izquierdo
[2022-10-04] MEDS ORDERED: LACTATED RINGER'S 1,000 ML IV SCH (16:34)
[2022-10-04] MEDS ORDERED: ALBUTEROL HFA 8 GM INHALER INH PRN (16:34)
[2022-10-04] MEDS ORDERED: PSYLLIUM or GUAR GUM FIBER POWDER PACKET PO PRN (16:59)
[2022-10-04] MEDS: ENOXAPARIN INJ 40 MG/0.4 ML SYR SQ SCH (17:50)
--- NOTE | 2022-10-04 17:55 | Ultrasound Report ---
ULTRASOUND OF THE CAROTID ARTERIES CLINICAL HISTORY: syncope, elevated troponin COMPARISON: None available at the time of this dictation. TECHNIQUE: Real-time, grayscale, and color Doppler sonography of the carotid arteries is performed. I mages are reviewed in the transverse and longitudinal planes. FINDINGS: The carotid arteries are patent bilaterally and demonstrate antegrade flow. There is mild atheroscler otic plaque on the right and mild atherosclerotic plaque on the left. Normal doppler arterial wavefor ms are seen throughout. Velocity measurements are listed below. Common carotid peak systolic velocity (cm/sec): RIGHT: 42 LEFT: 40 ICA peak systolic velocity (cm/sec): RIGHT: 64 LEFT: 76 ICA/CC peak systolic ratio: RIGHT: 1.5 LEFT: 1.9 Antegrade flow was shown in the vertebral arteries. The external carotid arteries are patent. IMPRESSION: 1. There is no sonographic evidence of hemodynamically significant stenosis in the right or left car otid arterial system. 2. Antegrade flow is shown in the vertebral arteries. Society of Radiologists in Ultrasound consensus guidelines: Normal: ICA PSV is <125 cm/sec and no plaque or intimal thickening is visible sonographically additional criteria include ICA/CCA PSV ratio <2.0 and ICA EDV <40 cm/sec <50% ICA stenosis: ICA PSV is <125 cm/sec and plaque or intimal thickening is visible sonographically additional criteria include ICA/CCA PSV ratio <2.0 and ICA EDV <40 cm/sec 50-69% ICA stenosis: ICA PSV is 125-230 cm/sec and plaque is visible sonographically additional criteria include ICA/CCA PSV ratio of 2.0-4.0 and ICA EDV of 40-100 cm/sec ?70% ICA stenosis but less than near occlusion: ICA PSV is >230 cm/sec and visible plaque and luminal narrowing are seen at lockett-scale and color Dopp ler ultrasound (the higher the Doppler parameters lie above the threshold of 230 cm/sec, the greater the likelihood of severe disease) additional criteria include ICA/CCA PSV ratio >4 and ICA EDV >100 cm/sec ACT 112: Negative or not required by law. Electronically signed by: Henry Ellsworth M.D. 10/04/2022 5:53 PM
[2022-10-04] MEDS: oxyCODONE HCL IR 5 MG TAB (IMMEDIATE RELEASE) PO PRN (18:07)
[2022-10-04] MEDS: POTASSIUM CHLORIDE CRTAB 20 MEQ TABCR PO SCH (20:30)
[2022-10-04 23:03] LABS: Appearance Urine Clear (Clear); Bacteria Urine Automated Negative (Negative); Bilirubin Urine Negative (Negative); Blood Urine Negative (Negative); Color Urine Yellow; Glucose Urine UA Negative (Negative); Ketones Urine Trace (Negative); Leukocyte Esterase Urine Negative (Negative); Nitrite Urine Negative (Negative); Protein Urine Trace (Negative); RBC Urine Automated 0-4 /hpf (0-4); Specific Gravity Urine > 1.045 (1.000-1.030); Urobilinogen Urine Negative (Negative); pH Urine 6.5 (4.5-7.5)
[2022-10-05] MEDS: [UNRECOGNIZED DRUG - REMARK] SCH ×3 (01:41→15:02)
[2022-10-05 04:50] LABS: Basophils # (auto) 0.03 K/uL (0-0.2); Basophils % (auto) 0.3 %; Eosinophils # (auto) 0.19 K/uL (0-0.50); Hematocrit (blood only) 41.2 % (40.1-51.0); Hemoglobin 13.2 g/dl (14.0-18.0); Immature Granulocytes # (auto) 0.05 K/uL (0.00-0.02); Immature Granulocytes % (auto) 0.5 %; Lymphocytes # (auto) 0.87 K/uL (1.2-3.4); Lymphocytes % (auto) 9.3 %; Mean Corpuscular Hemoglobin 28.2 pg (25.0-34.0); Mean Platelet Volume 11.8 fL (9.4-12.4); Monocytes # (auto) 1.12 K/uL (0.24-0.82); Neutrophils # (auto) 7.05 K/uL (1.4-6.5); Neutrophils % (auto) 75.9 %; Platelet Count 240 K/uL (130-400); RDW Coefficient of Variation 14.8 % (11.5-14.5); RDW Standard Deviation 47.7 fL (36.4-46.3); Red Blood Count 4.68 M/uL (4.63-6.08); White Blood Count 9.31 K/ul (4.8-10.8)
[2022-10-05 05:16] LABS: BUN Creatinine Ratio 15.8 (10-20); Calcium 8.5 mg/dl (8.5-10.1); Creatinine Clr Calc Pharmacy 43.8 ml/min; Est GFR (African American) 55.7 ml/min; Est GFR (Non-African American) 48.1 ml/min; Magnesium 2.2 mg/dl (1.7-2.4); Potassium 3.3 mmol/L (3.5-5.1)
[2022-10-05] MEDS: LEVOTHYROXINE SODIUM 150 MCG TABLET PO SCH (06:31)
[2022-10-05] MEDS: PANTOprazole 40 MG TAB PO SCH (08:07)
[2022-10-05] MEDS: CALCIUM 600MG + VIT D 400 IU TAB PO SCH (08:07)
[2022-10-05] MEDS: CHOLECALCIFEROL 1,000 UNITS 25 MCG TAB PO SCH (08:07)
[2022-10-05] MEDS: dilTIAZem HCL 180 MG CAPCR PO SCH (08:07)
[2022-10-05] MEDS: POTASSIUM CHLORIDE CRTAB 20 MEQ TABCR PO SCH ×2 (08:07→20:39)
[2022-10-05] MEDS: UMECLIDINIUM/VILANTEROL 62.5/25MCG 7 PUFFS/INHALER INH SCH (08:08)
[2022-10-05] MEDS: FLUTICASONE FUROATE 100MCG 14 PUFFS/INHALER INH SCH (08:08)
[2022-10-05] MEDS: NSS + 20MEQ KCL 20 MEQ/1,000 ML BAG IV SCH ×2 (10:00→22:55)
[2022-10-05] MEDS: CALCIUM CARBONATE 500 MG CHEWABLE TAB PO PRN (11:19)
[2022-10-05] MEDS: oxyCODONE HCL IR 5 MG TAB (IMMEDIATE RELEASE) PO PRN ×2 (11:36→22:28)
--- NOTE | 2022-10-05 11:53 | Hospitalist Progress Note ---
Date of Service October 05, 2022 Assessment & Plan (1) Syncope: Plan: Appears to be due to transient hypotension although ventricular dysrhythmia cannot be ruled out especially with elevated troponin that is not trending and does not appear related to acute coronary syndrome. I wonder if the COVID- vaccine caused subclinical myocarditis and resultant elevated troponin levels. He states he passed out before he was straining to have a bowel movement, although vasovagal syncope is in the differential. Chest CTA negative for PE and carotid Dopplers revealed no significant stenoses. Cardiac echo results noted. Moderate LVH with normal ejection fraction and no regional wall motion abnormalities noted. Continue telemetry. OT and PT evaluations ordered. (2) Acute on chronic kidney failure: Plan: Continue IV fluids. Hold diuretics. Monitor intake and output. Serial lab studies. (3) Lymphedema: Plan: Chronic bilateral lower extremity venous stasis changes and mild edema. This does not appear to be due to CHF. Diuretics are on hold. Leg elevation should help. (4) Lower leg edema: Plan: Appears to be due to chronic venous insufficiency and stasis rather than CHF. Diuretics are currently on hold. Leg elevation should help (5) Hypokalemia: Plan: Improving with replacement therapy. Diuretics are on hold. Serial lab studies. (6) Avulsion injury of right elbow region: Plan: He has no current pain and he has normal range of motion. I doubt if he has an acute evulsion fracture. Appreciate orthopedic consultation and recommendations. Immobilizing brace has been removed. (7) COPD (chronic obstructive pulmonary disease): Plan: COPD is currently stable. However, he appears to have bronchitis. Sputum culture has been requested. If there is any significant growth, he may be a candidate for antibiotic therapy (8) PRISCILA (obstructive sleep apnea): Plan: Will use CPAP as needed at bedtime (9) Chronic respiratory failure with hypoxia: Plan: Currently stable. Continue oxygen per nasal cannula to maintain saturation greater than 90%. (10) Hypertension: Plan: Treated with diltiazem and diuretics. Diuretics are now on hold. (11) Hypothyroidism: Plan: Continue levothyroxine replacement therapy (12) BPH (benign prostatic hyperplasia): Plan: Currently voiding without incident. We will follow. (13) GERD (gastroesophageal reflux disease): Plan: Continue PPI daily. Plan To be determined. OT and PT assessments requested Admission and Anticipated Discharge Date Admission Date: October 04, 2022 Subjective Alert and oriented. No distress. He denies any pain in the right elbow and has normal range of motion. I doubt if he has suffered an acute avulsion fracture. Orthopedic evaluation noted. Immobilizing brace has been removed. He has symptoms consistent with bronchitis. Sputum culture will be obtained. He may need IV antibiotics while hospitalized. We will continue IV hydration with potassium supplementation. He has some nausea and Zofran has been ordered along with Tums. Cardiac echo reveals moderate LVH with no regional wall motion abnormalities and normal systolic function. Carotid Dopplers negative for significant stenosis. Chest CTA negative for PE. Creatinine down slightly to 1.3 with rehydration. Potassium improved to 3.3. We will follow. Troponin elevation is not trending and could possibly be related to recent COVID-vaccine. No evidence of acute coronary syndrome. OT and PT assessments requested Review of Systems Review of Systems: Constitutional-no fever or chills ENT-no blurred vision, no double vision, no epistaxis, no sore throat Respiratory-occasionally productive cough with purulent sputum. No hemoptysis. No wheezing, no shortness of breath Cardiac-no palpitations, no chest pain GI-no vomiting, diarrhea, melena, hematochezia. Currently complaining of nausea -no urinary retention, no urinary incontinence, no dysuria, no hematuria Musculoskeletal-denies right elbow pain despite x-ray appearance. Tenderness in the right facial area from falling and bruising. Skin-right facial ecchymoses noted from falling Neuro-no isolated weakness, no paresthesia, no weakness Psych-no depression, no anxiety Physical Exam Physical Exam: General-alert and oriented x3, no fevers, no chills HEENT-right facial bruising noted from recent fall. Pupils equal and reactive to light, extraocular muscles intact Neck-no lymphadenopathy or thyromegaly, trachea midline Chest-midline rhonchi. No wheezing. No dullness Cardiac-regular rate and rhythm, normal S1 and S2 Abdomen-normal bowel sounds, nontender, no hepatosplenomegaly Extremities-mild chronic bilateral lower extremity edema unchanged per patient Neuro-cranial nerves II through XII intact, motor and sensory function within normal limits, strength symmetrical , no focal deficits Psych-normal affect, normal mood Results & Data Results & Data ([facility]) Vital Signs (Past 12 Hours) Vital Signs Temp Pulse Pulse Resp BP Pulse Ox O2 Del Method 01/22/23 11:18 36.7 C 99 H 22 137/91 95 Nasal Cannula 10/05/22 08:00 Nasal Cannula 10/05/22 07:53 93 H 10/05/22 07:36 36.5 C 103 H 17 143/87 H 95 Nasal Cannula 10/05/22 03:39 36.4 C L 101 H 20 119/75 96 Nasal Cannula O2 Flow Rate 10/05/22 11:18 2 10/05/22 08:00 2 10/05/22 07:53 10/05/22 07:36 2 10/05/22 03:39 2 Laboratory Results 10/05/22 04:43 10/05/22 04:43 PG Care Time/CCT Total # of Minutes Spent Total Time Spent with Patient: Total time spent is greater than 50% in coordination of care (as documented) at patient's floor/unit and/or counseling patient: Coding Level of Care Code 59283 SUB INP/OBS CARE 3/50MIN Diagnoses Syncope R55 Acute on chronic kidney failure N17.9; N18.9 Lymphedema I89.0 Lower leg edema R60.0 Hypokalemia E87.6 Avulsion injury of right elbow region COPD (chronic obstructive pulmonary disease) 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 PRISCILA (obstructive sleep apnea) G47.33 Chronic respiratory failure with hypoxia J96.11 Hypertension I10 Hypertension type: essential hypertension Hypothyroidism E03.9 Hypothyroidism type: unspecified BPH (benign prostatic hyperplasia) N40.0 GERD (gastroesophageal reflux disease) K21.9 Esophagitis presence: esophagitis presence not specified (1) COPD (chronic obstructive pulmonary disease) COPD type: emphysema Emphysema type: unspecified Qualified Code(s): J43.9 - Emphysema, unspecified (2) Hypertension Hypertension type: essential hypertension Qualified Code(s): I10 - Essential (primary) hypertension (3) Hypothyroidism Hypothyroidism type: unspecified Qualified Code(s): E03.9 - Hypothyroidism, unspecified (4) GERD (gastroesophageal reflux disease) Esophagitis presence: esophagitis presence not specified Qualified Code(s): K21.9 - Gastro-esophageal reflux disease without esophagitis
--- NOTE | 2022-10-05 12:33 | Orthopedic Consultation ---
Date of Service October 05, 2022 Assessment & Plan (1) Avulsion injury of right elbow region: Stable impact-type injury to lateral epicondyle of right elbow. Stable joint. Treat symptomatically. - Removed splint - may be WBAT and ROMAT. - Sling for comfort - Wound care to olecranon skin laceration - daily dressing changes. Wound check for sutures in 2-3 weeks. - Contact with further questions. Dispo: Established care with [facility]. Cross. Was scheduled 10/06 for R shoulder evaluation. Should contact clinic to reschedule 2 weeks from discharge to ensure elbow followup. History of Present Illness Reason for Consultation: right elbow injury Requesting Physician: . Attending Physician: Sukhjinder Cheung MD 87 yo M PMHx COPD, PRISCILA, chronic respiratory failure with hypoxia on oxygen at night, HFpEF, admitted after syncope and fall in his bathroom. Impacted his right side onto tub, include face, right arm, and flank. Sustained facial and R elbow laceration. Small cortical avulsion finding on radiographs for elbow pain. Patient reports no prior history of elbow pain or injury. Extensive bruising and swelling. Elbow lac treated in ED with debridement and closure. Denies numbness and tingling. Elbow splinted in ED. Separately, he was scheduled for shoulder evaluation this week with Dr. Cross. Wants to reschedule. Allergies Allergy/AdvReac Type Severity Reaction Status Date / Time clarithromycin Allergy Intermediate RASH Verified 10/04/22 14:47 Home Medications Medication Instructions Recorded Confirmed Type magnesium 250 mg tablet 250 mg PO 3XWK 08/02/18 10/04/22 History cholecalciferol (vitamin D3) 25 1,000 units PO QAM 05/30/19 10/04/22 History mcg (1,000 unit) tablet calcium carbonate 500 mg-vitamin 1 tab PO QAM 06/22/20 10/04/22 History D3 10 mcg (400 unit) tablet (Calcium 500 With D) multivitamin 1 tab PO QAM 09/04/20 10/04/22 History acetaminophen 500 mg tablet 1,000 mg PO Q6 PRN Pain 03/25/21 10/04/22 History (Tylenol Extra Strength) Oxygen Home 05/03/21 09/17/22 History psyllium husk 3 gram/5.4 gram oral 1 tbsp PO DAILY PRN Constipation 05/14/21 10/04/22 History powder furosemide 40 mg tablet 80 mg PO DAILY #180 tabs 07/16/21 10/04/22 Rx ciclopirox 8 % topical solution 1 applic topical DAILY #6.6 mL 08/06/21 10/04/22 Rx promethazine-DM 6.25 mg-15 mg/5 mL 5 ml PO Q6H PRN cough #473 mL 09/24/21 10/04/22 Rx oral syrup omeprazole magnesium 20 mg 20 mg PO QAM #90 tabs 11/08/21 10/04/22 Rx tablet,delayed release (Prilosec OTC) levothyroxine 150 mcg tablet 150 mcg PO QAM #90 tabs 02/03/22 10/04/22 Rx potassium chloride 20 mEq 40 meq PO 3XWK #72 tabs 03/25/22 10/04/22 Rx tablet,extended release(part/cryst) albuterol sulfate 90 mcg/actuation 2 puff inhalation Q4H PRN 04/18/22 10/04/22 Rx aerosol inhaler (Ventolin HFA) shortness of breath or wheezing #8.5 grams diltiazem HCl 180 mg capsule,24 180 mg PO QAM 90 days #90 caps 04/22/22 10/04/22 Rx hr,extended release (Tiazac) fluticasone fur. 100 mcg-umeclid 1 inh inhalation QAM #3 Inhalers 08/26/22 10/04/22 Rx 62.5 mcg-vilant 25 mcg inhalat.powder (Trelegy Ellipta) oxycodone 5 mg tablet 2.5 mg PO Q4H PRN Pain 10/04/22 10/04/22 History Past Med/Surg History Medical History Acute on chronic diastolic (congestive) heart failure Back problem BPH (benign prostatic hyperplasia) Candidal diaper rash Cellulitis Cellulitis Cellulitis of both lower extremities Cellulitis of left leg Chronic obstructive pulmonary disease Fluid retention in legs GERD (gastroesophageal reflux disease) History of bronchitis History of cellulitis Hypertension Hypothyroidism Hypothyroidism (acquired) Left lumbar radiculopathy Leg length discrepancy Livedo reticularis Lumbar spinal stenosis On home oxygen therapy 02 2LPM AT Osteoarthritis Osteoporosis, unspecified Personal history of MRSA (methicillin resistant Staphylococcus aureus) Pulmonary edema Pulmonary nodule Sepsis Sepsis Sleep apnea cpap Spinal stenosis Urethral stricture Vitamin D deficiency Surgical History History of cardiac cath 12/2019 - [place] - increased edema - no stents/angioplasty History of cholecystectomy History of colonoscopy History of herniorrhaphy left inguinal History of partial knee replacement left History of tonsillectomy History of tooth extraction Hx of surgical procedure LEFT FEMUR FX WITH REPAIR Family History Mother Cerebral atherosclerosis Father Diverticulosis Other No significant family history Denies family history of Ovarian cancer Prostate cancer Myocardial infarction Breast cancer Colorectal cancer Social History Smoking Status: Never smoker Tobacco Type: Cigarettes Age Started Using Tobacco: 22; packs per day: 1; Cigarettes Per Day: 20; Second Hand Exposure: No; Hx Alcohol Use: No Hx Substance Use: Yes Last Used Substance: Hours (ago) Last Used Substance Other:: medical marijuana for back pain last used at 0400 Preferred Language: Macanese Communication Ability: Effective Visual Impairment: No Limitations Hearing Ability: Normal Weaver Dobby Loom Required: No Beliefs That Will Affect Care: None marital status: Current Living Situation: Spouse current occupational status: retired Feels Safe at Home: Yes Safety Concerns: Feels Safe At This Time Dental Care, Regularly: No Physical Activity Frequency: 1-2 Times per Week Seatbelt Use: always Sunscreen Use: Yes Assistive Devices: Denture - Upper, Denture - Lower, Glasses, Oxygen - at Night and Walker Review of Systems All systems reviewed & are unremarkable except as noted in HPI & below. Physical Exam Gen: Facial ecchymosis and closed laceration, pleasant, NAD, good historian with exception of LOC after fall. RUE: splint taken down for exam. Ecchymosis about elbow and dependent/ulnar forearm. FAROM digits/wrist against resistance with no pain. FAROM of elbow flex/ex/pro/sup with no discomfort. Focal tenderness at site of fracture, just proximal to lateral epicondyle. Laceration is more distal and dorsal elbow. Elbow is stable to varus/valgus stress at 0 and 30deg. No significant/palpable effusion. Constitutional WD/WN, vitals as above Respiratory normal respiratory effort; no respiratory distress Cardiovascular Extremities: normal capillary refill; no edema Chest (Breasts) Chest: normal inspection of chest Skin no rashes, warm and dry Psychiatric A+Ox3, euthymic affect Results & Data Results & Data Laboratory Results . Diagnostic Findings Right shoulder, elbow, hand radiographs reviewed. Agree with radiologist. The R elbow views show cortical irregularity and a mineralized fragment near lateral epicondyle. He is tender in this area. Appears to be an impact type fracture/avulsion. Joint is congruent. PG Care Time/CCT Total # of Minutes Spent Total Time Spent with Patient: Total time spent is greater than 50% in coordination of care (as documented) at patient's floor/unit and/or counseling patient: Coding Level of Care Code INP/OBS CONSULT LVL 3, 45 MIN Diagnoses Avulsion injury of right elbow region
[2022-10-05] MEDS: ENOXAPARIN INJ 40 MG/0.4 ML SYR SQ SCH (18:15)
[2022-10-05] MEDS: ONDANSETRON INJ 2 MG/ML 2 ML VIAL IV PRN (22:22)
[2022-10-06] MEDS: [UNRECOGNIZED DRUG - REMARK] SCH ×3 (01:20→15:15)
[2022-10-06] MEDS: LEVOTHYROXINE SODIUM 150 MCG TABLET PO SCH (06:01)
[2022-10-06 06:44] LABS: BUN Creatinine Ratio 14.3 (10-20); Creatinine Clr Calc Pharmacy 40.2 ml/min; Est GFR (African American) 49.4 ml/min; Est GFR (Non-African American) 42.6 ml/min; Potassium 4.4 mmol/L (3.5-5.1)
[2022-10-06] MEDS: PANTOprazole 40 MG TAB PO SCH (07:58)
[2022-10-06] MEDS: POTASSIUM CHLORIDE CRTAB 20 MEQ TABCR PO SCH (07:58)
[2022-10-06] MEDS: CHOLECALCIFEROL 1,000 UNITS 25 MCG TAB PO SCH (07:58)
[2022-10-06] MEDS: MAGNESIUM OXIDE 400 MG TAB PO SCH (07:58)
[2022-10-06] MEDS: dilTIAZem HCL 180 MG CAPCR PO SCH (07:59)
[2022-10-06] MEDS: UMECLIDINIUM/VILANTEROL 62.5/25MCG 7 PUFFS/INHALER INH SCH (07:59)
[2022-10-06] MEDS: FLUTICASONE FUROATE 100MCG 14 PUFFS/INHALER INH SCH (07:59)
[2022-10-06] MEDS: CALCIUM 600MG + VIT D 400 IU TAB PO SCH (07:59)
[2022-10-06] MEDS: NSS + 20MEQ KCL 20 MEQ/1,000 ML BAG IV SCH (10:13)
--- NOTE | 2022-10-06 14:28 | Hospitalist Progress Note ---
Date of Service October 06, 2022 Assessment & Plan (1) Syncope: Plan: Appears to be due to transient hypotension although ventricular dysrhythmia cannot be ruled out especially with elevated troponin that is not trending and does not appear related to acute coronary syndrome. No arrhythmias noted thus far He states he passed out before he was straining to have a bowel movement, therefore vasovagal syncope is in the differential. May have been somewhat over diuresed Received some IV fluids here but will now restart Lasix Chest CTA negative for PE and carotid Dopplers revealed no significant stenoses. Cardiac echo results noted. Moderate LVH with normal ejection fraction and no regional wall motion abnormalities noted. Continue telemetry. (2) Acute on chronic kidney failure: Plan: Creatinine slightly up to 1.4 but I feel that he needs diuresis Restart Lasix Stop all IV fluids Follow BMP Avoid nephrotoxins and renally dose medications (3) Cellulitis: Plan: Bilateral lower extremity cellulitis with significant erythema and warmth No fevers, no leukocytosis Start ceftriaxone and daptomycin Monitor for improvement Start ammonium lactate for ichthyosis Start clotrimazole on the feet for tinea pedis (4) Lymphedema: Plan: Thought to be lymphedema but unclear reason? Could be venous reflux as per patient he is seen by vascular medicine in the past Restart diuretics (5) Elevated troponin: Plan: Persistently elevated in the 500s to 600s No wall motion abnormalities on echocardiogram Consult cardiology appreciated No chest pain, no ECG changes (6) Early satiety: Plan: Reports gaseous distention and low appetite for many months Seen by PCP and was referred to GI but has no appointment to the end of November Check CT abdomen/pelvis Keep follow-up appointment with GI as an outpatient (7) Lower leg edema: Plan: Appears to be due to chronic venous insufficiency and stasis Restart Lasix only at this point MANAN Brown during the day after cellulitis resolved (8) Hypokalemia: Plan: Improved with replacement Holding metolazone Restarting Lasix Follow BMP (9) Avulsion injury of right elbow region: Plan: He has no current pain and he has normal range of motion. Appreciate orthopedic surgery consultation-recommend treating symptomatically, no need for splint but can use sling for comfort Can be weight-bear as tolerated and range of motion as tolerated Continue wound care to skin laceration over olecranon with daily dressing changes, wound check for sutures in 2-3 weeks Already had appointment scheduled with Dr. Cross which will need to be rescheduled for right shoulder evaluation-he can follow-up with Dr. Cross for the elbow as well (10) COPD (chronic obstructive pulmonary disease): Plan: COPD is currently stable. However, he appears to have bronchitis. Sputum culture has been requested. Starting ceftriaxone as above for cellulitis which may also cover for this (11) PRISCILA (obstructive sleep apnea): Plan: Will use O2 hs (12) Chronic respiratory failure with hypoxia: Plan: Acute on chronic. Usually only needs nocturnal O2 With PULM HTN on ECHO, preserved EF requiring daytime 1L NC O2 Has a h/o COPD could be volume overload-restarting diuretics Continue oxygen per nasal cannula to maintain saturation greater than 90%. (13) Hypertension: Plan: Treated with diltiazem and diuretics. (14) Hypothyroidism: Plan: Continue levothyroxine replacement therapy TSH 2.8 in 05/2022 (15) BPH (benign prostatic hyperplasia): Plan: Currently voiding without incident. We will follow. (16) GERD (gastroesophageal reflux disease): Plan: Continue PPI daily. Plan DVT prophylaxis-Lovenox Disposition-continued stay on telemetry PT/OT consults placed Admission and Anticipated Discharge Date Admission Date: October 04, 2022 Subjective Patient reports the redness and heat in his legs is new from previous. He has a long history of recurrent cellulitis. Denies any further lightheadedness, no shortness of breath but remains on oxygen during the day. Has a long history of COPD. No significant pain in the right elbow. Telemetry with normal sinus rhythm and PACs, rates in the 90s Review of Systems Review of Systems: All systems reviewed & are unremarkable except as noted in HPI & below Physical Exam Constitutional: WD/WN, vitals as above Eyes: + anicteric sclerae Neck: trachea midline, no thyromegaly Respiratory: normal respiratory effort; no cough Auscultation: + wheezes; no crackles and no rhonchi Cardiovascular: Rate/Rhythm: regular rate and regular rhythm Extremities: + edema (2+ pitting edema of the lower extremities bilaterally to the thighs) Chest (Breasts): Chest: normal inspection of chest Gastrointestinal (Abdomen): normal bowel sounds, soft, nontender, no hepatosplenomegaly Skin: + lesion (Multiple small blister lesions on legs), + dry skin (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) Vital Signs (Past 12 Hours) Vital Signs Temp Pulse Pulse Resp BP Pulse Ox O2 Del Method 10/06/22 12:05 37.1 C 98 H 24 120/75 92 Nasal Cannula 10/06/22 10:35 Nasal Cannula 10/06/22 08:57 100 H 10/06/22 06:25 36.8 C 99 H 18 100/67 96 Nasal Cannula 10/06/22 03:21 36.7 C 126 H 22 135/79 92 Nasal Cannula 10/06/22 02:53 91 H O2 Flow Rate 10/06/22 12:05 2 10/06/22 10:35 1 10/06/22 08:57 10/06/22 06:25 2 10/06/22 03:21 6 10/06/22 02:53 Laboratory Results Labs reviewed PG Care Time/CCT Total # of Minutes Spent Total Time Spent with Patient: Total time spent is greater than 50% in coordination of care (as documented) at patient's floor/unit and/or counseling patient: Coding Level of Care Code 06356 SUB INP/OBS CARE 3/50MIN Diagnoses Syncope R55 Acute on chronic kidney failure N17.9; N18.9 Cellulitis L03.90 Lymphedema I89.0 Elevated troponin R77.8 Early satiety R68.81 Lower leg edema R60.0 Hypokalemia E87.6 Avulsion injury of right elbow region COPD (chronic obstructive pulmonary disease) 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 PRISCILA (obstructive sleep apnea) G47.33 Chronic respiratory failure with hypoxia J96.11 Hypertension I10 Hypertension type: essential hypertension Hypothyroidism E03.9 Hypothyroidism type: unspecified BPH (benign prostatic hyperplasia) N40.0 GERD (gastroesophageal reflux disease) K21.9 Esophagitis presence: esophagitis presence not specified (1) Hypothyroidism Hypothyroidism type: unspecified Qualified Code(s): E03.9 - Hypothyroidism, unspecified (2) COPD (chronic 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
[2022-10-06] MEDS: CLOTRIMAZOLE 1% CR 15 GM TUBE EXT SCH ×2 (14:59→21:54)
[2022-10-06] MEDS: FUROSEMIDE 40 MG TAB PO SCH (14:59)
[2022-10-06] MEDS: DAPTOmycin 325 MG in SYRINGE 0 ML IV SCH (14:59)
[2022-10-06] MEDS: cefTRIAXone SODIUM 2,000 MG in DEXTROSE 5% 50 ML IV SCH (15:51)
[2022-10-06] MEDS: oxyCODONE HCL IR 5 MG TAB (IMMEDIATE RELEASE) PO PRN ×2 (15:53→23:30)
--- NOTE | 2022-10-06 16:08 | CT Scan Report ---
CT OF THE ABDOMEN AND PELVIS WITHOUT CONTRAST CLINICAL HISTORY: Lower extremity edema,low appetite,assess for mass. COMPARISON STUDY: CT of the pelvis February 24, 2021. Abdominal series September 17, 2022. CT of the abdomen June 10, 2007. TECHNIQUE: Axial images of the abdomen and pelvis were obtained without IV contrast. Images were revi ewed in the axial, sagittal, and coronal planes. Automated exposure control was utilized for the flakita dy. A dose lowering technique was utilized adhering to the principles of ALARA. FINDINGS: Emphysema, bronchiectasis, bronchial wall thickening and scattered nodular opacities within the lower lungs are similar to prior chest CT. The opacities may be chronic. There is a trace left p leural effusion. No pneumatosis, free air or portal venous gas is present. Evaluation of the abdomen and pelvis is suboptimal on this unenhanced exam. Geographic hepatic steatosis is greatest within the right hepatic lobe. There is no biliary or pancreatic ductal dilatation. The gallbladder is not visu alized. Patchy enhancement of the kidneys is noted from recent contrast-enhanced CT. There is contras t within the bladder. Bladder wall is irregular with numerous bladder diverticula. These findings are chronic. There is no hydronephrosis. Unenhanced images of the spleen, adrenal glands and pancreas ar e unremarkable with exception of pancreatic glandular atrophy. There is no evidence for a bowel obstr uction. Extensive colonic diverticulosis is noted without evidence for acute diverticulitis. Body wal l edema is noted. There is trace presacral edema. There is no lymphadenopathy. No mass is present. Pr oximal left femoral internal fixation and right hip arthroplasty are present. There is an old L5 comp ression fracture. No acute fractures within the visualized skeletal structures are noted. IMPRESSION: 1. No abdominal mass or lymphadenopathy. 2. No bowel obstruction. No bowel wall thickening. 3. Colonic diverticulosis without evidence for acute diverticulitis. 4. Hepatic steatosis. 5. Body wall edema. Trace left pleural effusion. ACT 112: Negative or not required by law. Electronically signed by: Conner Villalpando M.D. 10/06/2022 4:07 PM
[2022-10-06] MEDS: ENOXAPARIN INJ 40 MG/0.4 ML SYR SQ SCH (17:07)
--- NOTE | 2022-10-06 17:14 | Cardiology Consultation ---
Date of Consultation October 06, 2022 Assessment & Plan (1) Syncope: (2) Elevated troponin: Plan 1. Syncope: Very possibly vagally mediated given the circumstances. Also possibly orthostatic or even hypoxemia related. However, from a cardiac standpoint there is some concern about an arrhythmia. He does have some ectopy on his EKG. No significant arrhythmias on telemetry. Given the episode and the elevated biomarkers would seem reasonable to provide some outpatient monitoring and repeat troponins. 2. Elevated troponin: Unclear etiology. No symptoms suggestive of an acute coronary syndrome. No rise and fall typical of an acute coronary syndrome or recent event. I do not believe this is related to overt heart failure. Possibly a myocarditis, but again no other symptoms. Preserved LV systolic function and wall motion. 3. Cor pulmonale: Does have some element of right ventricular enlargement. Likely secondary to his lung disease. This may account for some element of lower extremity edema as well. Treatment will be adequate oxygenation and p.r.n. diuretics History of Present Illness Reason for Consultation: Elevated troponin Requesting Physician: Wilmar Attending Physician: Lien Urban MD History of Present Illness The patient is an 87-year-old gentleman with a history of spinal stenosis who was admitted to the hospital with an episode of syncope. Patient states that for few weeks sees had some gastrointestinal disturbance that may have been eating and drinking somewhat less than usual. At nighttime he also wears supplemental oxygen due to COPD. Last evening he took his oxygen off to go to the bathroom. He states that he had just begun to have a bowel movement when he fell off of the toilet. He cannot remember many of these events but did suffer an injury to the right side of his body. Afterwards he felt poorly due to the injury but did not endorse symptoms of dizziness or palpitations. He has not had symptoms of chest pain or worsening shortness of breath recently. He recalls 1 episode of syncope quite remotely. He generally does not have symptoms of palpitations or dizziness. His ambulation is significantly curtailed both by his lung disease and spinal stenosis. He generally uses a walker for ambulation. Allergies Allergy/AdvReac Type Severity Reaction Status Date / Time clarithromycin Allergy Intermediate RASH Verified 10/04/22 14:47 Home Medications Medication Instructions Recorded Confirmed Type magnesium 250 mg tablet 250 mg PO 3XWK 08/02/18 10/04/22 History cholecalciferol (vitamin D3) 25 1,000 units PO QAM 05/30/19 10/04/22 History mcg (1,000 unit) tablet calcium carbonate 500 mg-vitamin 1 tab PO QAM 06/22/20 10/04/22 History D3 10 mcg (400 unit) tablet (Calcium 500 With D) multivitamin 1 tab PO QAM 09/04/20 10/04/22 History acetaminophen 500 mg tablet 1,000 mg PO Q6 PRN Pain 03/25/21 10/04/22 History (Tylenol Extra Strength) Oxygen Home 05/03/21 09/17/22 History psyllium husk 3 gram/5.4 gram oral 1 tbsp PO DAILY PRN Constipation 05/14/21 10/04/22 History powder furosemide 40 mg tablet 80 mg PO DAILY #180 tabs 07/16/21 10/04/22 Rx ciclopirox 8 % topical solution 1 applic topical DAILY #6.6 mL 08/06/21 10/04/22 Rx promethazine-DM 6.25 mg-15 mg/5 mL 5 ml PO Q6H PRN cough #473 mL 09/24/21 10/04/22 Rx oral syrup omeprazole magnesium 20 mg 20 mg PO QAM #90 tabs 11/08/21 10/04/22 Rx tablet,delayed release (Prilosec OTC) levothyroxine 150 mcg tablet 150 mcg PO QAM #90 tabs 02/03/22 10/04/22 Rx potassium chloride 20 mEq 40 meq PO 3XWK #72 tabs 03/25/22 10/04/22 Rx tablet,extended release(part/cryst) albuterol sulfate 90 mcg/actuation 2 puff inhalation Q4H PRN 04/18/22 10/04/22 Rx aerosol inhaler (Ventolin HFA) shortness of breath or wheezing #8.5 grams diltiazem HCl 180 mg capsule,24 180 mg PO QAM 90 days #90 caps 04/22/22 10/04/22 Rx hr,extended release (Tiazac) fluticasone fur. 100 mcg-umeclid 1 inh inhalation QAM #3 Inhalers 08/26/22 10/04/22 Rx 62.5 mcg-vilant 25 mcg inhalat.powder (Trelegy Ellipta) oxycodone 5 mg tablet 2.5 mg PO Q4H PRN Pain 10/04/22 10/04/22 History Patient History Medical History Acute on chronic diastolic (congestive) heart failure Back problem BPH (benign prostatic hyperplasia) Candidal diaper rash Cellulitis Cellulitis Cellulitis of both lower extremities Cellulitis of left leg Chronic obstructive pulmonary disease Fluid retention in legs GERD (gastroesophageal reflux disease) History of bronchitis History of cellulitis Hypertension Hypothyroidism Hypothyroidism (acquired) Left lumbar radiculopathy Leg length discrepancy Livedo reticularis Lumbar spinal stenosis On home oxygen therapy 02 2LPM AT HS Osteoarthritis Osteoporosis, unspecified Personal history of MRSA (methicillin resistant Staphylococcus aureus) Pulmonary edema Pulmonary nodule Sepsis Sepsis Sleep apnea cpap Spinal stenosis Urethral stricture Vitamin D deficiency Surgical History History of cardiac cath 12/2019 - [place] - increased edema - no stents/angioplasty History of cholecystectomy History of colonoscopy History of herniorrhaphy left inguinal History of partial knee replacement left History of tonsillectomy History of tooth extraction Hx of surgical procedure LEFT FEMUR FX WITH REPAIR Family History Mother Cerebral atherosclerosis Father Diverticulosis Other No significant family history Denies family history of Ovarian cancer Prostate cancer Myocardial infarction Breast cancer Colorectal cancer Social History Smoking Status: Never smoker Tobacco Type: Cigarettes Age Started Using Tobacco: 22; packs per day: 1; Cigarettes Per Day: 20; Second Hand Exposure: No; Hx Alcohol Use: No Hx Substance Use: Yes Last Used Substance: Hours (ago) Last Used Substance Other:: medical marijuana for back pain last used at 0400 Preferred Language: Palauan Communication Ability: Effective Visual Impairment: No Limitations Hearing Ability: Normal Dialysis Registered Nurse Required: No Beliefs That Will Affect Care: None marital status: Current Living Situation: Spouse current occupational status: retired Feels Safe at Home: Yes Safety Concerns: Feels Safe At This Time Dental Care, Regularly: No Physical Activity Frequency: 1-2 Times per Week Seatbelt Use: always Sunscreen Use: Yes Assistive Devices: Cane, Oxygen - at Night and Walker Review of Systems Review of Systems: Per HPI. He did not endorse any recent constitutional symptoms such as fevers or chills. No upper respiratory symptoms. He does not do work outside. He does have some lower extremity edema and erythema. Physical Exam Physical Exam: The patient is alert and oriented. Mood and affect appeared normal. He answered all questions appropriately. HEENT: Pupils are equal and reactive to light and accommodation. Extraocular movements are intact. The sclerae are anicteric. Neuro: Cranial nerves intact Lungs: Clear to auscultation bilaterally. He has good air movement without use of accessory muscles. No rales wheezes or rhonchi. Cardiac: Heart demonstrates a regular rate and rhythm. Normal S1 and S2. No murmurs on examination. Pulses: The patient has palpable radial pulses bilaterally that are equal in intensity Extremities: There was no evidence of hypoperfusion. There is no cyanosis or clubbing. Moderate lower extremity edema with some weeping and significant erythema bilaterally. Skin: I did not appreciate any rashes on examination today. Results & Data ([facility]) Vital Signs (Past 12 Hours) Vital Signs Temp Pulse Pulse Resp BP Pulse Ox O2 Del Method 10/06/22 16:00 36.2 C L 90 18 117/71 91 Nasal Cannula 10/06/22 15:16 83 10/06/22 12:05 37.1 C 98 H 24 120/75 92 Nasal Cannula 10/06/22 10:35 Nasal Cannula 10/06/22 08:57 100 H 10/06/22 06:25 36.8 C 99 H 18 100/67 96 Nasal Cannula O2 Flow Rate 10/06/22 16:00 1 10/06/22 15:16 10/06/22 12:05 2 10/06/22 10:35 1 10/06/22 08:57 10/06/22 06:25 2 Laboratory Results Abnormal Lab Results 10/06/22 06:08 Sodium 136 Potassium 4.4 D Chloride 104 Carbon Dioxide 27 Anion Gap 5 BUN 21 Creatinine 1.47 H Est Cr Clr Drug Dosing 40.2 Est GFR ( Amer) 49.4 Est GFR (Non-Af Amer) 42.6 BUN/Creatinine Ratio 14.3 Glucose 105 H Calcium 8.0 L Diagnostic Findings Echocardiogram performed 10/05/2022: Normal LV systolic function with ejection fraction of 50-55%. Moderate LVH. Normal left ventricular wall motion. No significant valvular heart disease. ECG Additional Comments: EKG demonstrated normal sinus rhythm with occasional ectopy. Some PACs conducted with aberrancy and 1 PVC. PG Care Time/CCT Total # of Minutes Spent Total Time Spent with Patient: Total time spent is greater than 50% in coordination of care (as documented) at patient's floor/unit and/or counseling patient: Coding Level of Care Code 68282 INT INP/OBS CARE 3/75MIN Diagnoses Syncope R55 Elevated troponin R77.8
[2022-10-06] MEDS: AMMONIUM LACTATE 12% LOTION 225 GM BTL EXT SCH (21:53)
[2022-10-07] MEDS: [UNRECOGNIZED DRUG - REMARK] SCH ×3 (00:09→15:44)
[2022-10-07 06:32] LABS: Calcium 8.2 mg/dl (8.5-10.1)
[2022-10-07 06:37] LABS: BUN Creatinine Ratio 15.3 (10-20); Creatinine Clr Calc Pharmacy 43.3 ml/min; Est GFR (African American) 53.7 ml/min; Est GFR (Non-African American) 46.4 ml/min
[2022-10-07] MEDS: LEVOTHYROXINE SODIUM 150 MCG TABLET PO SCH (06:38)
[2022-10-07] MEDS: CHOLECALCIFEROL 1,000 UNITS 25 MCG TAB PO SCH (08:52)
[2022-10-07] MEDS: PANTOprazole 40 MG TAB PO SCH (08:52)
[2022-10-07] MEDS: CALCIUM 600MG + VIT D 400 IU TAB PO SCH (08:52)
[2022-10-07] MEDS: AMMONIUM LACTATE 12% LOTION 225 GM BTL EXT SCH ×2 (08:52→21:34)
[2022-10-07] MEDS: dilTIAZem HCL 180 MG CAPCR PO SCH (08:52)
[2022-10-07] MEDS: UMECLIDINIUM/VILANTEROL 62.5/25MCG 7 PUFFS/INHALER INH SCH (08:53)
[2022-10-07] MEDS: FUROSEMIDE 40 MG TAB PO SCH (08:53)
[2022-10-07] MEDS: FLUTICASONE FUROATE 100MCG 14 PUFFS/INHALER INH SCH (08:53)
[2022-10-07] MEDS: CLOTRIMAZOLE 1% CR 15 GM TUBE EXT SCH ×2 (08:53→21:34)
[2022-10-07] MEDS: cefTRIAXone SODIUM 2,000 MG in DEXTROSE 5% 50 ML IV SCH (09:04)
[2022-10-07] MEDS: oxyCODONE HCL IR 5 MG TAB (IMMEDIATE RELEASE) PO PRN (09:19)
[2022-10-07] MEDS: DAPTOmycin 325 MG in SYRINGE 0 ML IV SCH (15:33)
--- NOTE | 2022-10-07 15:36 | Hospitalist Progress Note ---
Date of Service October 07, 2022 Assessment & Plan (1) Syncope: Plan: Appears to be due to transient hypotension although ventricular dysrhythmia cannot be ruled out especially with elevated troponin that is not trending and does not appear related to acute coronary syndrome. No arrhythmias noted thus far He states he passed out before he was straining to have a bowel movement, therefore vasovagal syncope is in the differential. May have been somewhat over diuresed Received some IV fluids here initially but have since restarted Lasix for significant volume overload Chest CTA negative for PE but showed bronchial wall thickening and atelectasis with groundglass opacities scattered Carotid Dopplers revealed no significant stenoses. Cardiac echo results noted. Moderate LVH with normal ejection fraction and no regional wall motion abnormalities noted. Continue telemetry. (2) Acute on chronic kidney failure: Plan: CKD stage III Creatinine slightly up to 1.4 but has actually improved with diuresis today down to 1.3 Continue Lasix at lower dose of 40 mg daily Hold home metolazone Follow BMP Avoid nephrotoxins and renally dose medications (3) Cellulitis: Plan: Bilateral lower extremity cellulitis with significant erythema and warmth noted on 10/06-started ceftriaxone and daptomycin No fevers, no leukocytosis Now with gram-negative rods growing out of sputum-change ceftriaxone to cefepime and will continue daptomycin Monitor for improvement Continue ammonium lactate for ichthyosis Continue clotrimazole on the feet for tinea pedis Follow CBC (4) Lymphedema: Plan: Thought to be lymphedema but unclear reason? Could be venous reflux as per patient he is seen by vascular medicine in the past Continue Lasix and watch renal function Follow-up with interventional cardiology potentially as an outpatient (5) Elevated troponin: Plan: Persistently elevated in the 500s to 600s No wall motion abnormalities on echocardiogram Consult cardiology appreciated-Possible ACUTE myocarditis No chest pain, no ECG changes (6) Early satiety: Plan: Reports gaseous distention and low appetite for many months Seen by PCP and was referred to GI but has no appointment to the end of November Checked CT abdomen/pelvis which showed fatty liver but no other significant findings Keep follow-up appointment with GI as an outpatient for endoscopy Patient requests simethicone and will also start laxative for constipation (7) Lower leg edema: Plan: Appears to be due to chronic venous insufficiency and stasis Continue Lasix Elevation, MANAN hose during the day after cellulitis resolved (8) Hypokalemia: Plan: Resolved with replacement and with holding metolazone Continue Lasix Follow BMP, magnesium (9) Avulsion injury of right elbow region: Plan: He has no current pain and he has normal range of motion. Appreciate orthopedic surgery consultation-recommend treating symptomatically, no need for splint but can use sling for comfort Can be weight-bear as tolerated and range of motion as tolerated Continue wound care to skin laceration over olecranon with daily dressing changes, wound check for sutures in 2-3 weeks Already had appointment scheduled with Dr. Cross which will need to be rescheduled for right shoulder evaluation-he can follow-up with Dr. Cross for the elbow as well (10) COPD (chronic obstructive pulmonary disease): Plan: COPD is currently stable. However, he appears to have bronchitis. Sputum culture now growing gram-negative rods With a history of Pseudomonas in the urine-switch ceftriaxone to cefepime Follow final sputum culture (11) PRISCILA (obstructive sleep apnea): Plan: Will use O2 hs (12) Chronic respiratory failure with hypoxia: Plan: Acute on chronic. Usually only needs nocturnal O2 With PULM HTN on ECHO, preserved EF requiring daytime 1L NC O2 Has a h/o COPD could be volume overload-restarting diuretics Continue oxygen per nasal cannula to maintain saturation greater than 90%. Will need two-step walk test prior to discharge if goes home but if goes to rehab this can be done there (13) Hypertension: Plan: Treated with diltiazem and diuretics. (14) Hypothyroidism: Plan: Continue levothyroxine replacement therapy TSH 2.8 in 05/2022 (15) BPH (benign prostatic hyperplasia): Plan: Currently voiding without incident. We will follow. (16) GERD (gastroesophageal reflux disease): Plan: Continue PPI daily. (17) Skin tear: Plan: As above, needs suture removal in 2 weeks (18) Contusion of face: Plan: Ecchymosis on right side of the face from fall Monitor Plan DVT prophylaxis-Lovenox Disposition-continued stay on telemetry PT/OT consults placed, referrals made to rehab. Not medically stable for discharge yet but perhaps in the next 2 days Discussed all care with his at the bedside on 10/07 Admission and Anticipated Discharge Date Admission Date: October 04, 2022 Subjective Patient reports feeling a little bit better. Still having redness and warmth in the legs. Denies shortness of breath. Is coughing up a lot more sputum today and was able to give a sample. No chest pains. Telemetry with normal sinus rhythm and PACs with rates in the 90s Review of Systems Review of Systems: All systems reviewed & are unremarkable except as noted in HPI & below Physical Exam Constitutional: WD/WN, vitals as above Eyes: + anicteric sclerae Neck: trachea midline, no thyromegaly Respiratory: normal respiratory effort; no cough Auscultation: no crackles, no rhonchi and no wheezes Cardiovascular: Rate/Rhythm: regular rate and regular rhythm Extremities: + edema (2+ pitting edema of the lower extremities bilaterally to the thighs) Chest (Breasts): Chest: normal inspection of chest Gastrointestinal (Abdomen): normal bowel sounds, soft, nontender, no hepatosplenomegaly Skin: + lesion (Multiple small blister lesions on legs), + dry skin (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) and + erythema (Bilateral legs circumferential erythema, not improved) Neurologic: moves all extremities and awake; no focal motor deficits Psychiatric: A+Ox3, euthymic affect Results & Data Results & Data ([facility]) Vital Signs (Past 12 Hours) Vital Signs Temp Pulse Resp BP Pulse Ox O2 Del Method O2 Flow Rate 10/07/22 15:08 36.4 C L 97 H 17 115/75 95 Nasal Cannula 2 10/07/22 10:51 36.4 C L 93 H 18 126/76 96 Nasal Cannula 2 10/07/22 07:08 36.4 C L 85 18 101/68 96 Room Air 10/07/22 03:58 36.8 C 86 137/90 99 Nasal Cannula 2 Laboratory Results Labs reviewed PG Care Time/CCT Total # of Minutes Spent Total Time Spent with Patient: Total time spent is greater than 50% in coordination of care (as documented) at patient's floor/unit and/or counseling patient: Coding Level of Care Code 32268 SUB INP/OBS CARE 3/50MIN Diagnoses Syncope R55 Acute on chronic kidney failure N17.9; N18.9 Cellulitis L03.90 Lymphedema I89.0 Elevated troponin R77.8 Early satiety R68.81 Lower leg edema R60.0 Hypokalemia E87.6 Avulsion injury of right elbow region COPD (chronic obstructive pulmonary disease) 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 PRISCILA (obstructive sleep apnea) G47.33 Chronic respiratory failure with hypoxia J96.11 Hypertension I10 Hypertension type: essential hypertension Hypothyroidism E03.9 Hypothyroidism type: unspecified BPH (benign prostatic hyperplasia) N40.0 GERD (gastroesophageal reflux disease) K21.9 Esophagitis presence: esophagitis presence not specified Skin tear Contusion of face S00.83XA (1) Hypothyroidism Hypothyroidism type: unspecified Qualified Code(s): E03.9 - Hypothyroidism, unspecified (2) COPD (chronic 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
[2022-10-07] MEDS: CEFEPIME 2,000 MG in SYRINGE 0 ML IV SCH (16:45)
[2022-10-07] MEDS: SENNA 8.6 MG TAB PO SCH (16:45)
[2022-10-07] MEDS: ENOXAPARIN INJ 40 MG/0.4 ML SYR SQ SCH (16:45)
[2022-10-08] MEDS: [UNRECOGNIZED DRUG - REMARK] SCH ×4 (00:14→23:01)
[2022-10-08] MEDS: CEFEPIME 2,000 MG in SYRINGE 0 ML IV SCH ×2 (05:58→16:12)
[2022-10-08] MEDS: LEVOTHYROXINE SODIUM 150 MCG TABLET PO SCH (05:59)
[2022-10-08 07:38] LABS: BUN Creatinine Ratio 15.6 (10-20); Calcium 8.6 mg/dl (8.5-10.1); Est GFR (African American) 54.7 ml/min; Est GFR (Non-African American) 47.2 ml/min; Potassium 3.8 mmol/L (3.5-5.1)
[2022-10-08] MEDS: AMMONIUM LACTATE 12% LOTION 225 GM BTL EXT SCH ×2 (12:42→20:22)
--- NOTE | 2022-10-08 12:43 | Hospitalist Progress Note ---
Date of Service October 08, 2022 Assessment & Plan (1) Syncope: Plan: Appears to be due to transient hypotension although ventricular dysrhythmia cannot be ruled out especially with elevated troponin that is not trending and does not appear related to acute coronary syndrome. No arrhythmias noted thus far He states he passed out before he was straining to have a bowel movement, therefore vasovagal syncope is in the differential. May have been somewhat over diuresed Received some IV fluids here initially but have since restarted Lasix for significant volume overload Chest CTA negative for PE but showed bronchial wall thickening and atelectasis with groundglass opacities scattered Carotid Dopplers revealed no significant stenoses. Cardiac echo results noted. Moderate LVH with normal ejection fraction and no regional wall motion abnormalities noted. Continue telemetry. Plan for outpt 30 day cardiac event monitor-arranged through Nurse Navigator -also will arrange outpt Cardiology follow up (2) Acute on chronic kidney failure: Plan: CKD stage III Creatinine slightly up to 1.4 but has actually continued to improve each day with diuresis today down to 1.3 and stable Continue Lasix but increase back to home dose of 80 mg daily continue to hold home metolazone Follow BMP Avoid nephrotoxins and renally dose medications (3) Cellulitis: Plan: Bilateral lower extremity cellulitis with significant erythema and warmth noted on 10/06-started ceftriaxone and daptomycin No fevers, no leukocytosis Erythema and warmth improving on 10/08 Ceftriaxone changed to Cefepime to cover for Pseudomonas growing in sputum -continue daptomycin -continue to monitor for improvement -Continue ammonium lactate for ichthyosis -Continue clotrimazole on the feet for tinea pedis -Follow CBC, BMP (4) Lymphedema: Plan: Thought to be lymphedema but unclear reason? Could be venous reflux as per patient he is seen by vascular medicine in the past Continue Lasix and watch renal function Follow-up with interventional cardiology potentially as an outpatient (5) Elevated troponin: Plan: Persistently elevated in the 500s to 600s No wall motion abnormalities on echocardiogram Consult cardiology appreciated-Possible ACUTE myocarditis No chest pain, no ECG changes f/u with Cardiology as an outpt (6) Early satiety: Plan: Reports gaseous distention and low appetite for many months Seen by PCP and was referred to GI but has no appointment to the end of November Checked CT abdomen/pelvis which showed fatty liver but no other significant findings Keep follow-up appointment with GI as an outpatient for endoscopy -continue simethicone and will also continue laxative for constipation (7) Lower leg edema: Plan: Appears to be due to chronic venous insufficiency and stasis 3L positive on I/Os increase Lasix to home dose of 80mg Stephanie, MANAN osullivane during the day after cellulitis resolved (8) Hypokalemia: Plan: Resolved with replacement and with holding metolazone Continue Lasix Follow BMP, magnesium (9) Avulsion injury of right elbow region: Plan: He has no current pain and he has normal range of motion. Appreciate orthopedic surgery consultation-recommend treating symptomatically, no need for splint but can use sling for comfort Can be weight-bear as tolerated and range of motion as tolerated Continue wound care to skin laceration over olecranon with daily dressing changes, wound check for sutures in 2-3 weeks Already had appointment scheduled with Dr. Cross which will need to be rescheduled for right shoulder evaluation-he can follow-up with Dr. Cross for the elbow as well (10) COPD (chronic obstructive pulmonary disease): Plan: COPD is currently stable. However, he appears to have bronchitis. Sputum culture now growing Pseudomonas -continue cefepime for now nad will convert to po Levaquin on discharge to complete 7 day course (11) PRISCILA (obstructive sleep apnea): Plan: Will use O2 hs (12) Chronic respiratory failure with hypoxia: Plan: Acute on chronic. Usually only needs nocturnal O2 With PULM HTN on ECHO, preserved EF requiring daytime 1L NC O2 Has a h/o COPD could be volume overload-restarting diuretics Continue oxygen per nasal cannula to maintain saturation greater than 90%. Will need two-step walk test prior to discharge if goes home but if goes to rehab this can be done there (13) Hypertension: Plan: Treated with diltiazem and diuretics. (14) Hypothyroidism: Plan: Continue levothyroxine replacement therapy TSH 2.8 in 05/2022 (15) BPH (benign prostatic hyperplasia): Plan: Currently voiding without incident. We will follow. (16) GERD (gastroesophageal reflux disease): Plan: Continue PPI daily. (17) Skin tear: Plan: As above, needs suture removal in 2 weeks (18) Contusion of face: Plan: Ecchymosis on right side of the face from fall Monitor Plan DVT prophylaxis-Lovenox Disposition-continued stay on telemetry PT/OT consults placed, referrals made to rehab. Not medically stable for discharge yet but perhaps in the next 2 days Discussed all care with his at the bedside on 10/07 Admission and Anticipated Discharge Date Admission Date: October 04, 2022 Subjective Pt reports feeling a little better each day, legs less red today. Not coughing up as much sputum today. No SOB or CP. Eating well. Still no BM and never received the Gas X for gas ordered yesterday. Tele with NSR, PACs, rate 80-100s Review of Systems Review of Systems: All systems reviewed & are unremarkable except as noted in HPI & below Physical Exam Constitutional: WD/WN, vitals as above Eyes: + anicteric sclerae Neck: trachea midline, no thyromegaly Respiratory: normal respiratory effort; no cough Auscultation: + rhonchi (bilat) and + wheezes (bilat); no crackles Cardiovascular: Rate/Rhythm: regular rate and regular rhythm Extremities: + edema (2+ pitting edema of the lower extremities bilaterally,slightly improved) Chest (Breasts): Chest: normal inspection of chest Gastrointestinal (Abdomen): normal bowel sounds, soft, nontender, no hepatosplenomegaly Skin: + lesion (Multiple small blister lesions on legs), + dry skin (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) and + erythema (Bilateral legs circumferential erythema but less than previous) Neurologic: moves all extremities and awake; no focal motor deficits Psychiatric: A+Ox3, euthymic affect Results & Data Results & Data ([facility]) Vital Signs (Past 12 Hours) Vital Signs Temp Pulse Resp BP Pulse Ox O2 Del Method O2 Flow Rate 10/08/22 11:54 Nasal Cannula 2 10/08/22 11:20 36.3 C L 99 H 17 131/77 91 Nasal Cannula 2 10/08/22 07:19 36.5 C 94 H 19 147/72 H 96 Nasal Cannula 2 10/08/22 04:00 36.3 C L 89 20 127/77 95 Nasal Cannula 2 Laboratory Results 10/08/22 Range/Units 06:29 Sodium 135 L (136-145) mmol/L Potassium 3.8 (3.5-5.1) mmol/L Chloride 100 (98-107) mmol/L Carbon Dioxide 30 (21-32) mmol/L Anion Gap 5 (3-11) BUN 21 (6-23) mg/dl Creatinine 1.35 (0.6-1.4) mg/dl Est Cr Clr Drug Dosing 44.0 ml/min Est GFR ( Amer) 54.7 ml/min Est GFR (Non-Af Amer) 47.2 ml/min BUN/Creatinine Ratio 15.6 (10-20) Glucose 91 (70-99(Fasting)) mg/dl Calcium 8.6 (8.5-10.1) mg/dl PG Care Time/CCT Total # of Minutes Spent Total Time Spent with Patient: Total time spent is greater than 50% in coordination of care (as documented) at patient's floor/unit and/or counseling patient: Coding Level of Care Code 48182 SUB INP/OBS CARE 2/35MIN Diagnoses Syncope R55 Acute on chronic kidney failure N17.9; N18.9 Cellulitis L03.90 Lymphedema I89.0 Elevated troponin R77.8 Early satiety R68.81 Lower leg edema R60.0 Hypokalemia E87.6 Avulsion injury of right elbow region COPD (chronic obstructive pulmonary disease) 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 PRISCILA (obstructive sleep apnea) G47.33 Chronic respiratory failure with hypoxia J96.11 Hypertension I10 Hypertension type: essential hypertension Hypothyroidism E03.9 Hypothyroidism type: unspecified BPH (benign prostatic hyperplasia) N40.0 GERD (gastroesophageal reflux disease) K21.9 Esophagitis presence: esophagitis presence not specified Skin tear Contusion of face S00.83XA (1) Hypothyroidism Hypothyroidism type: unspecified Qualified Code(s): E03.9 - Hypothyroidism, unspecified (2) COPD (chronic 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
[2022-10-08] MEDS: CALCIUM 600MG + VIT D 400 IU TAB PO SCH (12:51)
[2022-10-08] MEDS: CHOLECALCIFEROL 1,000 UNITS 25 MCG TAB PO SCH (12:51)
[2022-10-08] MEDS: CLOTRIMAZOLE 1% CR 15 GM TUBE EXT SCH ×2 (12:52→20:22)
[2022-10-08] MEDS: dilTIAZem HCL 180 MG CAPCR PO SCH (12:52)
[2022-10-08] MEDS: FLUTICASONE FUROATE 100MCG 14 PUFFS/INHALER INH SCH (12:52)
[2022-10-08] MEDS: PANTOprazole 40 MG TAB PO SCH (12:53)
[2022-10-08] MEDS: UMECLIDINIUM/VILANTEROL 62.5/25MCG 7 PUFFS/INHALER INH SCH (12:53)
[2022-10-08] MEDS: FUROSEMIDE 80 MG TAB PO SCH (12:53)
[2022-10-08] MEDS: SENNA 8.6 MG TAB PO SCH (12:53)
[2022-10-08] MEDS: MAGNESIUM OXIDE 400 MG TAB PO SCH (12:53)
[2022-10-08] MEDS: DAPTOmycin 325 MG in SYRINGE 0 ML IV SCH (16:11)
[2022-10-08] MEDS: ENOXAPARIN INJ 40 MG/0.4 ML SYR SQ SCH (16:12)
[2022-10-08] MEDS: ONDANSETRON INJ 2 MG/ML 2 ML VIAL IV PRN (17:43)
[2022-10-08] MEDS: oxyCODONE HCL IR 5 MG TAB (IMMEDIATE RELEASE) PO PRN (17:43)
[2022-10-09] MEDS: CEFEPIME 2,000 MG in SYRINGE 0 ML IV SCH ×2 (05:30→17:28)
[2022-10-09] MEDS: LEVOTHYROXINE SODIUM 150 MCG TABLET PO SCH (05:48)
[2022-10-09 08:10] LABS: BUN Creatinine Ratio 16.1 (10-20); Calcium 8.3 mg/dl (8.5-10.1); Creatinine Clr Calc Pharmacy 47.7 ml/min; Est GFR (African American) 60.6 ml/min; Est GFR (Non-African American) 52.3 ml/min; Magnesium 1.8 mg/dl (1.7-2.4); Potassium 3.6 mmol/L (3.5-5.1)
[2022-10-09] MEDS: FLUTICASONE FUROATE 100MCG 14 PUFFS/INHALER INH SCH (08:40)
[2022-10-09] MEDS: PANTOprazole 40 MG TAB PO SCH (08:40)
[2022-10-09] MEDS: UMECLIDINIUM/VILANTEROL 62.5/25MCG 7 PUFFS/INHALER INH SCH (08:40)
[2022-10-09] MEDS: FUROSEMIDE 80 MG TAB PO SCH (08:41)
[2022-10-09] MEDS: CHOLECALCIFEROL 1,000 UNITS 25 MCG TAB PO SCH (08:41)
[2022-10-09] MEDS: CALCIUM 600MG + VIT D 400 IU TAB PO SCH (08:41)
[2022-10-09] MEDS: SENNA 8.6 MG TAB PO SCH (08:41)
[2022-10-09] MEDS: CLOTRIMAZOLE 1% CR 15 GM TUBE EXT SCH ×2 (08:42→21:02)
[2022-10-09] MEDS: [UNRECOGNIZED DRUG - REMARK] SCH ×2 (08:42→17:28)
[2022-10-09] MEDS: AMMONIUM LACTATE 12% LOTION 225 GM BTL EXT SCH ×2 (08:42→21:01)
[2022-10-09] MEDS: dilTIAZem HCL 180 MG CAPCR PO SCH (08:42)
[2022-10-09] MEDS: SIMETHICONE 80 MG CHEW PO PRN (08:46)
[2022-10-09] MEDS: POLYETHYLENE (MIRALAX) 17 GM PACK PO PRN (08:46)
[2022-10-09] MEDS ORDERED: MAGNESIUM SULFATE / D5W 1 GM/100 ML BAG IV ONE (09:11)
[2022-10-09 09:28] LABS: Basophils # (auto) 0.03 K/uL (0-0.2); Basophils % (auto) 0.4 %; Eosinophils # (auto) 0.19 K/uL (0-0.50); Eosinophils % (auto) 2.5 %; Hematocrit (blood only) 35.9 % (42.0-52.0); Hemoglobin 11.6 g/dl (14.0-18.0); Immature Granulocytes # (auto) 0.05 K/uL (0.01-0.20); Immature Granulocytes % (auto) 0.7 %; Lymphocytes # (auto) 0.87 K/uL (1.2-3.4); Lymphocytes % (auto) 11.6 %; Mean Corpuscular Hemoglobin 28.2 pg (25.0-34.0); Mean Corpuscular Hgb Conc 32.3 g/dL (32.0-36.0); Mean Corpuscular Volume 87.1 fL (80.0-100.0); Mean Platelet Volume 12.5 fL (9.4-12.4); Monocytes # (auto) 0.95 K/uL (0.11-0.59); Monocytes % (auto) 12.7 %; Neutrophils # (auto) 5.41 K/uL (1.40-6.50); Neutrophils % (auto) 72.1 %; Platelet Count 255 K/uL (130-400); RDW Coefficient of Variation 14.6 % (11.5-14.5); RDW Standard Deviation 46.7 fL (36.4-46.3); Red Blood Count 4.12 M/uL (4.70-6.10)
[2022-10-09] MEDS: oxyCODONE HCL IR 5 MG TAB (IMMEDIATE RELEASE) PO PRN (13:37)
[2022-10-09] MEDS: DAPTOmycin 325 MG in SYRINGE 0 ML IV SCH (14:40)
[2022-10-09] MEDS: ENOXAPARIN INJ 40 MG/0.4 ML SYR SQ SCH (17:28)
--- NOTE | 2022-10-09 19:19 | Hospitalist Progress Note ---
Date of Service October 09, 2022 Assessment & Plan (1) Syncope: Plan: Appears to be due to transient hypotension although ventricular dysrhythmia cannot be ruled out-no ventricular arrhythmias thus far on telemetry He states he passed out before he was straining to have a bowel movement, therefore vasovagal syncope is in the differential. May have been somewhat over diuresed Received some IV fluids here initially but have since restarted Lasix for significant volume overload Chest CTA negative for PE but showed bronchial wall thickening and atelectasis with groundglass opacities scattered Carotid Dopplers revealed no significant stenoses. Cardiac echo results noted. Moderate LVH with normal ejection fraction and no regional wall motion abnormalities noted. Continue telemetry. Plan for outpt 30 day cardiac event monitor-arranged through Nurse Navigator -also will arrange outpt Cardiology follow up (2) Acute on chronic kidney failure: Plan: CKD stage III Creatinine slightly up to 1.4 but has actually continued to improve each day with diuresis today down to 1.2 Continue Lasix 80 mg daily continue to hold home metolazone Follow BMP Avoid nephrotoxins and renally dose medications (3) Cellulitis: Plan: Bilateral lower extremity cellulitis with significant erythema and warmth from ankles up to knees bilaterally noted on 10/06-started ceftriaxone and daptomycin No fevers, no leukocytosis Erythema and warmth improving Ceftriaxone changed to Cefepime to cover for Pseudomonas growing in sputum -continue daptomycin -continue to monitor for improvement -Continue ammonium lactate for ichthyosis -Continue clotrimazole on the feet for tinea pedis -Follow CBC, BMP (4) Lymphedema: Plan: Thought to be lymphedema but unclear reason? Could be venous reflux -seen by vascular medicine in the past with only mild reflux of the greater saphenous veins Had right and left-sided heart catheterization in 2019-normal right-sided pressures at that time Continue Lasix and watch renal function Follow-up with interventional cardiology potentially as an outpatient for repeat venous studies of the lower extremities (5) Elevated troponin: Plan: Persistently elevated in the 500s to 600s No wall motion abnormalities on echocardiogram Consult cardiology appreciated-Possible ACUTE myocarditis No chest pain, no ECG changes f/u with Cardiology as an outpt (6) Early satiety: Plan: Reports gaseous distention and low appetite for many months Seen by PCP and was referred to GI but has no appointment to the end of November Checked CT abdomen/pelvis which showed fatty liver but no other significant findings Keep follow-up appointment with GI as an outpatient for endoscopy -continue simethicone and will also continue laxative for constipation Advised to discontinue home fiber supplement-as this can cause a lot of gas (7) Lower leg edema: Plan: Appears to be due to chronic venous insufficiency and stasis versus lymphedema Now only 800 mL positive on I/Os for the hospital stay which is much improved Continue Lasix home dose of 80mg Stephanie MANAN hose during the day after cellulitis resolved (8) Hypokalemia: Plan: Resolved with replacement and with holding metolazone Continue Lasix Follow BMP, magnesium (9) Avulsion injury of right elbow region: Plan: He has no current pain and he has normal range of motion. Appreciate orthopedic surgery consultation-recommend treating symptomatically, no need for splint but can use sling for comfort Can be weight-bear as tolerated and range of motion as tolerated Continue wound care to skin laceration over olecranon with daily dressing changes, wound check for sutures in 2-3 weeks Already had appointment scheduled with Dr. Cross which will need to be rescheduled for right shoulder evaluation-he can follow-up with Dr. Cross for the elbow as well (10) COPD (chronic obstructive pulmonary disease): Plan: COPD is currently stable. However, he appears to have bronchitis. Sputum culture now growing Pseudomonas -Received cefepime times 3 days and now will convert to po Levaquin to complete 7 day course-last day of treatment will be 10/13 (11) PRISCILA (obstructive sleep apnea): Plan: Will use O2 hs (12) Chronic respiratory failure with hypoxia: Plan: Acute on chronic. Usually only needs nocturnal O2 With PULM HTN on ECHO, preserved EF requiring daytime 1-2 L NC O2 Has a h/o COPD Continue diuretics Continue oxygen per nasal cannula to maintain saturation greater than 90%. Will need two-step walk test prior to discharge if goes home but if goes to rehab this can be done there (13) Hypertension: Plan: Treated with diltiazem and diuretics. (14) Hypothyroidism: Plan: Continue levothyroxine replacement therapy TSH 2.8 in 05/2022 (15) BPH (benign prostatic hyperplasia): Plan: Currently voiding without incident. We will follow. (16) GERD (gastroesophageal reflux disease): Plan: Continue PPI daily. (17) Skin tear: Plan: As above, needs suture removal in 2 weeks from the arm (18) Contusion of face: Plan: Ecchymosis on right side of the face from fall Monitor Plan DVT prophylaxis-Lovenox Disposition-continued stay on telemetry PT/OT consults placed, referrals made to rehab. Not medically stable for discharge yet but perhaps in the next 2 days Discussed all care with his at the bedside on 10/07 Admission and Anticipated Discharge Date Admission Date: October 04, 2022 Subjective Patient feeling fine today. Still has a cough but not bringing up as much sputum. No chest pains. No shortness of breath over his usual. Reports he is always wheezing. Still no bowel movement in 4 days. Telemetry with normal sinus rhythm, sinus tachycardia, PACs and PVCs. Rates in the 90s to 100s. Review of Systems Review of Systems: All systems reviewed & are unremarkable except as noted in HPI & below Physical Exam Constitutional: WD/WN, vitals as above Eyes: + anicteric sclerae Neck: trachea midline, no thyromegaly Respiratory: normal respiratory effort; no cough Auscultation: + rhonchi (bilat) and + wheezes (bilat); no crackles Cardiovascular: Rate/Rhythm: regular rate and regular rhythm Extremities: + edema (2+ pitting edema of the lower extremities bilaterally,slightly improved) Chest (Breasts): Chest: normal inspection of chest Gastrointestinal (Abdomen): normal bowel sounds, soft, nontender, no hepatosplenomegaly Skin: + lesion (Multiple small blister lesions on legs), + dry skin (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10) M/uL Hgb 11.6 L (14.0-18.0) g/dl Hct 35.9 L (42.0-52.0) % MCV 87.1 (80.0-100.0) fL MCH 28.2 (25.0-34.0) pg MCHC 32.3 (32.0-36.0) g/dL RDW Std Deviation 46.7 H (36.4-46.3) fL RDW Coeff of Jordan 14.6 H (11.5-14.5) % Plt Count 255 (130-400) K/uL MPV 12.5 H (9.4-12.4) fL Immature Gran % (Auto) 0.7 % Neut % (Auto) 72.1 % Lymph % (Auto) 11.6 % Dewitt % (Auto) 12.7 % Eos % (Auto) 2.5 % Baso % (Auto) 0.4 % Neut # (Auto) 5.41 (1.40-6.50) K/uL Lymph # (Auto) 0.87 L (1.2-3.4) K/uL Dewitt # (Auto) 0.95 H (0.11-0.59) K/uL Eos # (Auto) 0.19 (0-0.50) K/uL Baso # (Auto) 0.03 (0-0.2) K/uL Immature Gran # (Auto) 0.05 (0.01-0.20) K/uL Sodium 137 (136-145) mmol/L Potassium 3.6 (3.5-5.1) mmol/L Chloride 100 (98-107) mmol/L Carbon Dioxide 32 (21-32) mmol/L Anion Gap 5 (3-11) BUN 20 (6-23) mg/dl Creatinine 1.24 (0.6-1.4) mg/dl Est Cr Clr Drug Dosing 47.7 ml/min Est GFR ( Amer) 60.6 ml/min Est GFR (Non-Af Amer) 52.3 ml/min BUN/Creatinine Ratio 16.1 (10-20) Glucose 89 (70-99(Fasting)) mg/dl Calcium 8.3 L (8.5-10.1) mg/dl Magnesium 1.8 (1.7-2.4) mg/dl PG Care Time/CCT Total # of Minutes Spent Total Time Spent with Patient: Total time spent is greater than 50% in coordination of care (as documented) at patient's floor/unit and/or counseling patient: Coding Level of Care Code 89023 SUB INP/OBS CARE 2/35MIN Diagnoses Syncope R55 Acute on chronic kidney failure N17.9; N18.9 Cellulitis L03.90 Lymphedema I89.0 Elevated troponin R77.8 Early satiety R68.81 Lower leg edema R60.0 Hypokalemia E87.6 Avulsion injury of right elbow region COPD (chronic obstructive pulmonary disease) 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 PRISCILA (obstructive sleep apnea) G47.33 Chronic respiratory failure with hypoxia J96.11 Hypertension I10 Hypertension type: essential hypertension Hypothyroidism E03.9 Hypothyroidism type: unspecified BPH (benign prostatic hyperplasia) N40.0 GERD (gastroesophageal reflux disease) K21.9 Esophagitis presence: esophagitis presence not specified Skin tear Contusion of face S00.83XA (1) Hypothyroidism Hypothyroidism type: unspecified Qualified Code(s): E03.9 - Hypothyroidism, unspecified (2) COPD (chronic 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
[2022-10-10] MEDS: [UNRECOGNIZED DRUG - REMARK] SCH ×3 (00:24→15:15)
[2022-10-10] MEDS: LEVOTHYROXINE SODIUM 150 MCG TABLET PO SCH (05:26)
[2022-10-10] MEDS: MAGNESIUM OXIDE 400 MG TAB PO SCH (08:00)
[2022-10-10] MEDS: FUROSEMIDE 80 MG TAB PO SCH (08:01)
[2022-10-10] MEDS: dilTIAZem HCL 180 MG CAPCR PO SCH (08:01)
[2022-10-10] MEDS: PANTOprazole 40 MG TAB PO SCH (08:01)
[2022-10-10] MEDS: CHOLECALCIFEROL 1,000 UNITS 25 MCG TAB PO SCH (08:01)
[2022-10-10] MEDS: CALCIUM 600MG + VIT D 400 IU TAB PO SCH (08:01)
[2022-10-10] MEDS: SENNA 8.6 MG TAB PO SCH (08:01)
[2022-10-10] MEDS: FLUTICASONE FUROATE 100MCG 14 PUFFS/INHALER INH SCH (08:01)
[2022-10-10] MEDS: UMECLIDINIUM/VILANTEROL 62.5/25MCG 7 PUFFS/INHALER INH SCH (08:01)
[2022-10-10] MEDS: POLYETHYLENE (MIRALAX) 17 GM PACK PO PRN (08:06)
[2022-10-10] MEDS: AMMONIUM LACTATE 12% LOTION 225 GM BTL EXT SCH ×2 (08:07→19:50)
[2022-10-10] MEDS: CLOTRIMAZOLE 1% CR 15 GM TUBE EXT SCH ×2 (08:07→19:50)
[2022-10-10 09:16] LABS: Calcium 8.7 mg/dl (8.5-10.1); Magnesium 1.9 mg/dl (1.7-2.4); Potassium 3.8 mmol/L (3.5-5.1)
[2022-10-10 09:21] LABS: BUN Creatinine Ratio 17.3 (10-20); Creatinine Clr Calc Pharmacy 46.9 ml/min; Est GFR (African American) 58.9 ml/min; Est GFR (Non-African American) 50.8 ml/min
[2022-10-10] MEDS: levoFLOXacin 750 MG TAB PO SCH (11:06)
[2022-10-10] MEDS: CALCIUM CARBONATE 500 MG CHEWABLE TAB PO PRN (11:10)
[2022-10-10] MEDS: SIMETHICONE 80 MG CHEW PO PRN (12:20)
--- NOTE | 2022-10-10 12:35 | Hospitalist Progress Note ---
Date of Service October 10, 2022 Assessment & Plan (1) Syncope: Plan: Appears to be due to transient hypotension although ventricular dysrhythmia cannot be ruled out-no ventricular arrhythmias thus far on telemetry He states he passed out before he was straining to have a bowel movement, therefore vasovagal syncope is in the differential. May have been somewhat over diuresed Received some IV fluids here initially but have since restarted Lasix for significant volume overload Chest CTA negative for PE but showed bronchial wall thickening and atelectasis with groundglass opacities scattered Carotid Dopplers revealed no significant stenoses. Cardiac echo results noted. Moderate LVH with normal ejection fraction and no regional wall motion abnormalities noted. Continue telemetry. Plan for outpt 30 day cardiac event monitor-arranged through Nurse Navigator -also will arrange outpt Cardiology follow up Currently stable (2) Acute on chronic kidney failure: Plan: CKD stage III Creatinine slightly up to 1.4 but has actually continued to improve each day with diuresis today down to 1.2 Continue Lasix 80 mg daily continue to hold home metolazone Follow BMP Avoid nephrotoxins and renally dose medications Currently stable (3) Cellulitis: Plan: Bilateral lower extremity cellulitis with significant erythema and warmth from ankles up to knees bilaterally noted on 10/06-started ceftriaxone and daptomycin No fevers, no leukocytosis Erythema and warmth improving Ceftriaxone changed to Cefepime to cover for Pseudomonas growing in sputum -continue daptomycin. Will discontinue at discharge. Continue oral Levaquin -continue to monitor for improvement -Continue ammonium lactate for ichthyosis -Continue clotrimazole on the feet for tinea pedis -Follow CBC, BMP (4) Lymphedema: Plan: Thought to be lymphedema but unclear reason? Could be venous reflux -seen by vascular medicine in the past with only mild reflux of the greater saphenous veins Had right and left-sided heart catheterization in 2019-normal right-sided pressures at that time Continue Lasix and watch renal function Follow-up with interventional cardiology potentially as an outpatient for repeat venous studies of the lower extremities (5) Elevated troponin: Plan: Persistently elevated in the 500s to 600s No wall motion abnormalities on echocardiogram Consult cardiology appreciated-asymptomatic myocarditis is a consideration No chest pain, no ECG changes f/u with Cardiology as an outpt (6) Early satiety: Plan: Reports gaseous distention and low appetite for many months Seen by PCP and was referred to GI but has no appointment to the end of November Checked CT abdomen/pelvis which showed fatty liver but no other significant fi ndings Keep follow-up appointment with GI as an outpatient for endoscopy -continue simethicone and will also continue laxative for constipation Advised to discontinue home fiber supplement-as this can cause a lot of gas (7) Lower leg edema: Plan: Appears to be due to chronic venous insufficiency and stasis versus lymphedema Now only 800 mL positive on I/Os for the hospital stay which is much improved Continue Lasix home dose of 80mg Elevation, MANAN hose during the day after cellulitis resolved (8) Hypokalemia: Plan: Resolved with replacement and with holding metolazone Continue Lasix Follow BMP, magnesium (9) Avulsion injury of right elbow region: Plan: He has no current pain and he has normal range of motion. Appreciate orthopedic surgery consultation-recommend treating symptomatically, no need for splint but can use sling for comfort Can be weight-bear as tolerated and range of motion as tolerated Continue wound care to skin laceration over olecranon with daily dressing martinez es, wound check for sutures in 2-3 weeks Already had appointment scheduled with Dr. Cross which will need to be rescheduled for right shoulder evaluation-he can follow-up with Dr. Cross for the elbow as well (10) COPD (chronic obstructive pulmonary disease): Plan: COPD is currently stable. However, he appears to have bronchitis. Sputum culture now growing Pseudomonas -Received cefepime times 3 days and now will convert to po Levaquin to complete 7 day course-last day of treatment will be 10/13 (11) PRISCILA (obstructive sleep apnea): Plan: Will use O2 hs (12) Chronic respiratory failure with hypoxia: Plan: Acute on chronic. Usually only needs nocturnal O2 With PULM HTN on ECHO, preserved EF requiring daytime 1-2 L NC O2 Has a h/o COPD Continue diuretics Continue oxygen per nasal cannula to maintain saturation greater than 90%. (13) Hypertension: Plan: Treated with diltiazem and diuretics. (14) Hypothyroidism: Plan: Continue levothyroxine replacement therapy TSH 2.8 in 05/2022 (15) BPH (benign prostatic hyperplasia): Plan: Currently voiding without incident. We will follow. (16) GERD (gastroesophageal reflux disease): Plan: Continue PPI daily. (17) Skin tear: Plan: As above. Needs suture removal in 2 weeks from the arm (18) Contusion of face: Plan: Ecchymosis on right side of the face from fall. Expect this to eventually resolve Plan DVT prophylaxis-Lovenox Disposition- peer to peer evaluation requested today, October 10. Hopeful discharge to inpatient rehab at [facility] Discussed all care with his at the bedside on 10/07 Admission and Anticipated Discharge Date Admission Date: October 04, 2022 Subjective Alert and oriented. Peer to peer conversation pending so he can get discharged to inpatient rehab program. No new problems. He remains on intravenous daptomycin at this time along with oral Levaquin. IV daptomycin will be discontinued at discharge. White blood cell count is trending down. Review of Systems Review of Systems: Constitutional-no fever or chills ENT-no blurred vision, no double vision, no epistaxis, no sore throat Respiratory-no cough, no wheezing, no shortness of breath Cardiac-no palpitations, no chest pain, no syncope GI-no nausea, vomiting, diarrhea, melena, hematochezia -no urinary retention, no urinary incontinence, no dysuria, no hematuria Musculoskeletal-no joint pain, no muscle tenderness Skin- chronic venous stasis changes bilateral lower extremities below the knees. Erythema has improved greatly with antibiotic therapy Neuro-no isolated weakness, no paresthesia, no weakness Psych-no depression, no anxiety Physical Exam Physical Exam: General-alert and oriented x3, no fevers, no chills HEENT-right facial bruising noted from recent fall. Pupils equal and reactive to light, extraocular muscles intact Neck-no lymphadenopathy or thyromegaly, trachea midline Chest-midline rhonchi. No wheezing. No dullness Cardiac-regular rate and rhythm, normal S1 and S2 Abdomen-normal bowel sounds, nontender, no hepatosplenomegaly Extremities-mild chronic bilateral lower extremity edema unchanged per patient . Bilateral lower extremity erythema has improved considerably with antibiotic therapy Neuro-cranial nerves II through XII intact, motor and sensory function within normal limits, strength symmetrical , no focal deficits Psych-normal affect, normal mood Results & Data Results & Data ([facility]) Vital Signs (Past 12 Hours) Vital Signs Temp Pulse Pulse Resp BP Pulse Ox O2 Del Method 10/10/22 11:07 36.4 C L 103 H 24 130/81 97 Nasal Cannula 10/10/22 09:00 Nasal Cannula 10/10/22 07:49 94 H 10/10/22 06:54 36.5 C 89 19 127/78 98 Nasal Cannula 10/10/22 02:58 36.8 C 75 18 117/79 96 Nasal Cannula O2 Flow Rate 10/10/22 11:07 2 10/10/22 09:00 2 10/10/22 07:49 10/10/22 06:54 10/10/22 02:58 2 Laboratory Results 10/09/22 06:36 10/10/22 08:30 PG Care Time/CCT Total # of Minutes Spent Total Time Spent with Patient: Total time spent is greater than 50% in coordination of care (as documented) at patient's floor/unit and/or counseling patient: Coding Level of Care Code 82594 SUB INP/OBS CARE 3/50MIN Diagnoses Syncope R55 Acute on chronic kidney failure N17.9; N18.9 Cellulitis L03.90 Lymphedema I89.0 Elevated troponin R77.8 Early satiety R68.81 Lower leg edema R60.0 Hypokalemia E87.6 Avulsion injury of right elbow region COPD (chronic obstructive pulmonary disease) 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 PRISCILA (obstructive sleep apnea) G47.33 Chronic respiratory failure with hypoxia J96.11 Hypertension I10 Hypertension type: essential hypertension Hypothyroidism E03.9 Hypothyroidism type: unspecified BPH (benign prostatic hyperplasia) N40.0 GERD (gastroesophageal reflux disease) K21.9 Esophagitis presence: esophagitis presence not specified Skin tear Contusion of face S00.83XA (1) COPD (chronic obstructive pulmonary disease) COPD type: emphysema Emphysema type: unspecified Qualified Code(s): J43.9 - Emphysema, unspecified (2) Hypertension Hypertension type: essential hypertension Qualified Code(s): I10 - Essential (primary) hypertension (3) Hypothyroidism Hypothyroidism type: unspecified Qualified Code(s): E03.9 - Hypothyroidism, unspecified (4) GERD (gastroesophageal reflux disease) Esophagitis presence: esophagitis presence not specified Qualified Code(s): K21.9 - Gastro-esophageal reflux disease without esophagitis
[2022-10-10] MEDS: ONDANSETRON INJ 2 MG/ML 2 ML VIAL IV PRN ×2 (13:06→19:43)
[2022-10-10] MEDS: DAPTOmycin 325 MG in SYRINGE 0 ML IV SCH (14:53)
[2022-10-10] MEDS: ENOXAPARIN INJ 40 MG/0.4 ML SYR SQ SCH (18:18)
[2022-10-10] MEDS: ACETAMINOPHEN 325 MG TAB PO PRN (19:42)
[2022-10-11] MEDS: LEVOTHYROXINE SODIUM 150 MCG TABLET PO SCH (05:36)
[2022-10-11] MEDS: [UNRECOGNIZED DRUG - REMARK] SCH ×3 (07:37→15:05)
[2022-10-11] MEDS: dilTIAZem HCL 180 MG CAPCR PO SCH (08:20)
[2022-10-11] MEDS: AMMONIUM LACTATE 12% LOTION 225 GM BTL EXT SCH ×2 (08:20→20:49)
[2022-10-11] MEDS: FUROSEMIDE 80 MG TAB PO SCH (08:20)
[2022-10-11] MEDS: CALCIUM 600MG + VIT D 400 IU TAB PO SCH (08:20)
[2022-10-11] MEDS: CHOLECALCIFEROL 1,000 UNITS 25 MCG TAB PO SCH (08:20)
[2022-10-11] MEDS: UMECLIDINIUM/VILANTEROL 62.5/25MCG 7 PUFFS/INHALER INH SCH (08:21)
[2022-10-11] MEDS: SENNA 8.6 MG TAB PO SCH (08:21)
[2022-10-11] MEDS: CLOTRIMAZOLE 1% CR 15 GM TUBE EXT SCH ×2 (08:21→20:49)
[2022-10-11] MEDS: FLUTICASONE FUROATE 100MCG 14 PUFFS/INHALER INH SCH (08:21)
[2022-10-11] MEDS: PANTOprazole 40 MG TAB PO SCH (08:21)
[2022-10-11] MEDS ORDERED: OPTIRAY 350 100ml IV ONE (12:17)
--- NOTE | 2022-10-11 12:28 | CT Scan Report ---
RIGHT TIBIA/FIBULAR CT with intravenous contrast CT DOSE: 266.33 mGy.cm HISTORY: Right lower leg swelling, erythema, tenderness TECHNIQUE: Multiaxial CT images of the right tibia/fibula were performed and reformatted in the sagit aundrea and coronal plane following the intravenous administration of 87 cc of Optiray 350. A dose lower ing technique was utilized adhering to the principles of ALARA. COMPARISON: None. FINDINGS: No fracture or dislocation within the right tibia or fibula. No destructive changes to sugg est an osteomyelitis. Small pretibial calcifications which may be vascular. Mild diffuse muscular atr ophy. Otherwise, the muscular compartments are within normal limits. Mild vascular calcifications are noted. There is diffuse skin thickening and extensive subcutaneous edema throughout the right lower leg. No peripheral enhancing fluid collections to suggest an abscess. Within the proximal anterolater al subcutaneous soft tissues there is a lobular hyperdense collection measuring approximately 9.0 x 5 .4 x 1.6 cm. This favors a subcutaneous hematoma. No soft tissue gas identified. IMPRESSION: 1. Diffuse skin thickening and extensive subcutaneous edema throughout the right lower leg. 2. Within the proximal anterolateral subcutaneous soft tissues there is a lobular hyperdense collecti on measuring approximately 9.0 x 5.4 x 1.6 cm. This favors a subcutaneous hematoma. No definite absce ss at this time. 3. No fracture or dislocation within the right lower leg. ACT 112: Negative or not required by law. Electronically signed by: mAandeep Monsivais M.D. 10/11/2022 12:26 PM
[2022-10-11] MEDS: FUROSEMIDE 40 MG/4 ML VIAL IV SCH (12:48)
--- NOTE | 2022-10-11 12:59 | Hospitalist Progress Note ---
Date of Service October 11, 2022 Assessment & Plan (1) Syncope: Plan: Appears to be due to transient hypotension although ventricular dysrhythmia cannot be ruled out-no ventricular arrhythmias thus far on telemetry He states he passed out before he was straining to have a bowel movement, therefore vasovagal syncope is in the differential. May have been somewhat over diuresed Received some IV fluids here initially but have since restarted Lasix for significant volume overload Chest CTA negative for PE but showed bronchial wall thickening and atelectasis with groundglass opacities scattered Carotid Dopplers revealed no significant stenoses. Cardiac echo results noted. Moderate LVH with normal ejection fraction and no regional wall motion abnormalities noted. Continue telemetry. Plan for outpt 30 day cardiac event monitor-arranged through Nurse Navigator -also will arrange outpt Cardiology follow up Currently stable (2) Acute on chronic kidney failure: Plan: CKD stage III Creatinine slightly up to 1.4 but has actually continued to improve each day with diuresis today down to 1.2 Continue Lasix 80 mg daily continue to hold home metolazone Follow BMP Avoid nephrotoxins and renally dose medications Currently stable (3) Cellulitis: Plan: Bilateral lower extremity cellulitis with significant erythema and warmth from ankles up to knees bilaterally noted on 10/06-started ceftriaxone and daptomycin No fevers, no leukocytosis Erythema and warmth improving Ceftriaxone changed to Cefepime to cover for Pseudomonas growing in sputum -continue daptomycin. Will discontinue at discharge. Continue oral Levaquin -continue to monitor for improvement -Continue ammonium lactate for ichthyosis -Continue clotrimazole on the feet for tinea pedis -Follow CBC, BMP (4) Lymphedema: Plan: Thought to be lymphedema but unclear reason? Could be venous reflux -seen by vascular medicine in the past with only mild reflux of the greater saphenous veins Had right and left-sided heart catheterization in 2019-normal right-sided pressures at that time Continue Lasix and watch renal function Follow-up with interventional cardiology potentially as an outpatient for repeat venous studies of the lower extremities (5) Elevated troponin: Plan: Persistently elevated in the 500s to 600s No wall motion abnormalities on echocardiogram Consult cardiology appreciated-asymptomatic myocarditis is a consideration No chest pain, no ECG changes f/u with Cardiology as an outpt (6) Early satiety: Plan: Reports gaseous distention and low appetite for many months Seen by PCP and was referred to GI but has no appointment to the end of November Checked CT abdomen/pelvis which showed fatty liver but no other significant fi ndings Keep follow-up appointment with GI as an outpatient for endoscopy -continue simethicone and will also continue laxative for constipation Advised to discontinue home fiber supplement-as this can cause a lot of gas (7) Lower leg edema: Plan: Appears to be due to chronic venous insufficiency and stasis versus lymphedema Now only 800 mL positive on I/Os for the hospital stay which is much improved Continue Lasix home dose of 80mg Elevation, MANAN hose during the day after cellulitis resolved (8) Hypokalemia: Plan: Resolved with replacement and with holding metolazone Continue Lasix Follow BMP, magnesium (9) Avulsion injury of right elbow region: Plan: He has no current pain and he has normal range of motion. Appreciate orthopedic surgery consultation-recommend treating symptomatically, no need for splint but can use sling for comfort. Can be weight-bear as tolerated and range of motion as tolerated. Continue wound care to skin laceration over olecranon with daily dressing changes, wound check for sutures in 2-3 weeks. Already had appointment scheduled with Dr. Cross which will need to be rescheduled for right shoulder evaluation-he can follow-up with Dr. Cross for the elbow as well (10) COPD (chronic obstructive pulmonary disease): Plan: COPD is currently stable. However, he appears to have bronchitis. Sputum culture now growing Pseudomonas. Received cefepime times 3 days and now on po Levaquin to complete 7 day course-last day of treatment will be 10/13 (11) PRISCILA (obstructive sleep apnea): Plan: Will use O2 hs (12) Chronic respiratory failure with hypoxia: Plan: Acute on chronic. Usually only needs nocturnal O2. With PULM HTN on ECHO, preserved EF . Requiring daytime 1-2 L NC O2. Continue diuretics. Continue oxygen per nasal cannula to maintain saturation greater than 90%. (13) Hypertension: Plan: Treated with diltiazem and diuretics. (14) Hypothyroidism: Plan: Continue levothyroxine replacement therapy. TSH 2.8 in 05/2022 (15) BPH (benign prostatic hyperplasia): Plan: Currently voiding without incident. We will follow. (16) GERD (gastroesophageal reflux disease): Plan: Continue PPI daily. (17) Skin tear: Plan: As above. Needs suture removal in 2 weeks from the arm (18) Contusion of face: Plan: Ecchymosis on right side of the face from fall. Expect this to eventually resolve (19) Hematoma of right lower extremity: Plan: No intervention needed at this time. We will follow Plan DVT prophylaxis-Lovenox Disposition- insurance denied IPR placement. Case management pursuing SNF placement. Admission and Anticipated Discharge Date Admission Date: October 04, 2022 Subjective Alert and oriented. He did mention the penile edema and what appears to be anasarca elsewhere. We will switch oral Lasix to IV Lasix for diuresis. The right lateral lower leg fluid collection appears to be hematoma rather than abscess. No intervention needed at this time. IPR placement was denied by insurance. Case management pursuing SNF placement. Review of Systems Review of Systems: Constitutional-no fever or chills ENT-no blurred vision, no double vision, no epistaxis, no sore throat Respiratory-no cough, no wheezing, no shortness of breath Cardiac-no palpitations, no chest pain, no syncope GI-no nausea, vomiting, diarrhea, melena, hematochezia -no urinary retention, no urinary incontinence, no dysuria, no hematuria Musculoskeletal-diffuse erythema involving bilateral lower extremities below the knees associated with edema. Fluctuant tender area right lateral lower ex tremity just below the knee. Skin- chronic venous stasis changes bilateral lower extremities below the knees. Erythema has improved with antibiotic therapy Neuro-no isolated weakness, no paresthesia, no weakness Psych-no depression, no anxiety Physical Exam Physical Exam: General-alert and oriented x3, no fevers, no chills HEENT-right facial bruising noted from recent fall. Pupils equal and reactive to light, extraocular muscles intact Neck-no lymphadenopathy or thyromegaly, trachea midline Chest-midline rhonchi. No wheezing. No dullness Cardiac-regular rate and rhythm, normal S1 and S2 Abdomen-normal bowel sounds, nontender, no hepatosplenomegaly Extremities-mild chronic bilateral lower extremity edema unchanged per patient . Bilateral lower extremity erythema has improved considerably with antibiotic therapy. There is a tender fluctuant area along the lateral aspect of the right lower extremity Neuro-cranial nerves II through XII intact, motor and sensory function within normal limits, strength symmetrical , no focal deficits Psych-normal affect, normal mood Results & Data Results & Data ([facility]) Vital Signs (Past 12 Hours) Vital Signs Temp Pulse Pulse Resp BP Pulse Ox O2 Del Method 10/11/22 08:00 Nasal Cannula 10/11/22 07:36 36.7 C 103 H 20 140/84 96 Nasal Cannula 10/11/22 07:16 94 H 10/11/22 03:02 36.5 C 94 H 18 120/71 94 Nasal Cannula O2 Flow Rate 10/11/22 08:00 2 10/11/22 07:36 2 10/11/22 07:16 10/11/22 03:02 Laboratory Results 10/09/22 06:36 10/10/22 08:30 PG Care Time/CCT Total # of Minutes Spent Total Time Spent with Patient: Total time spent is greater than 50% in coordination of care (as documented) at patient's floor/unit and/or counseling patient: Coding Level of Care Code 88803 SUB INP/OBS CARE 3/50MIN Diagnoses Syncope R55 Acute on chronic kidney failure N17.9; N18.9 Cellulitis L03.90 Lymphedema I89.0 Elevated troponin R77.8 Early satiety R68.81 Lower leg edema R60.0 Hypokalemia E87.6 Avulsion injury of right elbow region COPD (chronic obstructive pulmonary disease) 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 PRISCILA (obstructive sleep apnea) G47.33 Chronic respiratory failure with hypoxia J96.11 Hypertension I10 Hypertension type: essential hypertension Hypothyroidism E03.9 Hypothyroidism type: unspecified BPH (benign prostatic hyperplasia) N40.0 GERD (gastroesophageal reflux disease) K21.9 Esophagitis presence: esophagitis presence not specified Skin tear Contusion of face S00.83XA Hematoma of right lower extremity S80.11XA (1) COPD (chronic obstructive pulmonary disease) COPD type: emphysema Emphysema type: unspecified Qualified Code(s): J43.9 - Emphysema, unspecified (2) Hypertension Hypertension type: essential hypertension Qualified Code(s): I10 - Essential (primary) hypertension (3) Hypothyroidism Hypothyroidism type: unspecified Qualified Code(s): E03.9 - Hypothyroidism, unspecified (4) GERD (gastroesophageal reflux disease) Esophagitis presence: esophagitis presence not specified Qualified Code(s): K21.9 - Gastro-esophageal reflux disease without esophagitis
[2022-10-11] MEDS: ENOXAPARIN INJ 30 MG/0.3 ML SYR SQ SCH (14:29)
[2022-10-11] MEDS: DAPTOmycin 325 MG in SYRINGE 0 ML IV SCH (14:29)
[2022-10-11] MEDS: ACETAMINOPHEN 325 MG TAB PO PRN (14:37)
[2022-10-12] MEDS: [UNRECOGNIZED DRUG - REMARK] SCH ×3 (00:39→14:14)
[2022-10-12] MEDS: FUROSEMIDE 40 MG/4 ML VIAL IV SCH ×2 (05:25→16:55)
[2022-10-12] MEDS: LEVOTHYROXINE SODIUM 150 MCG TABLET PO SCH (05:29)
[2022-10-12] MEDS: UMECLIDINIUM/VILANTEROL 62.5/25MCG 7 PUFFS/INHALER INH SCH (08:21)
[2022-10-12] MEDS: FLUTICASONE FUROATE 100MCG 14 PUFFS/INHALER INH SCH (08:21)
[2022-10-12] MEDS: AMMONIUM LACTATE 12% LOTION 225 GM BTL EXT SCH ×2 (08:21→21:17)
[2022-10-12] MEDS: CLOTRIMAZOLE 1% CR 15 GM TUBE EXT SCH ×2 (08:22→21:18)
[2022-10-12] MEDS: CALCIUM 600MG + VIT D 400 IU TAB PO SCH (08:22)
[2022-10-12] MEDS: dilTIAZem HCL 180 MG CAPCR PO SCH (08:22)
[2022-10-12] MEDS: PANTOprazole 40 MG TAB PO SCH (08:22)
[2022-10-12] MEDS: SENNA 8.6 MG TAB PO SCH (08:22)
[2022-10-12] MEDS: CHOLECALCIFEROL 1,000 UNITS 25 MCG TAB PO SCH (08:22)
[2022-10-12 10:00] LABS: Basophils # (auto) 0.03 K/uL (0-0.2); Basophils % (auto) 0.4 %; Eosinophils # (auto) 0.16 K/uL (0-0.50); Hematocrit (blood only) 38.8 % (42.0-52.0); Hemoglobin 12.5 g/dl (14.0-18.0); Immature Granulocytes # (auto) 0.09 K/uL (0.01-0.20); Immature Granulocytes % (auto) 1.1 %; Lymphocytes # (auto) 1.26 K/uL (1.2-3.4); Lymphocytes % (auto) 15.5 %; Mean Corpuscular Hemoglobin 27.9 pg (25.0-34.0); Mean Corpuscular Hgb Conc 32.2 g/dL (32.0-36.0); Mean Corpuscular Volume 86.6 fL (80.0-100.0); Mean Platelet Volume 11.5 fL (9.4-12.4); Monocytes # (auto) 1.24 K/uL (0.11-0.59); Monocytes % (auto) 15.3 %; Neutrophils # (auto) 5.33 K/uL (1.40-6.50); Neutrophils % (auto) 65.7 %; Platelet Count 304 K/uL (130-400); RDW Coefficient of Variation 14.7 % (11.5-14.5); RDW Standard Deviation 46.7 fL (36.4-46.3); Red Blood Count 4.48 M/uL (4.70-6.10); White Blood Count 8.11 K/ul (4.8-10.8)
[2022-10-12] MEDS: ENOXAPARIN INJ 30 MG/0.3 ML SYR SQ SCH (12:35)
[2022-10-12 13:58] LABS: Calcium 8.7 mg/dl (8.5-10.1); Potassium 3.3 mmol/L (3.5-5.1)
[2022-10-12 14:04] LABS: BUN Creatinine Ratio 16.9 (10-20); Creatinine Clr Calc Pharmacy 43.3 ml/min; Est GFR (African American) 54.2 ml/min; Est GFR (Non-African American) 46.8 ml/min
[2022-10-12] MEDS: levoFLOXacin 750 MG TAB PO SCH (14:09)
[2022-10-12] MEDS: DAPTOmycin 325 MG in SYRINGE 0 ML IV SCH (14:09)
--- NOTE | 2022-10-12 14:36 | Hospitalist Progress Note ---
Date of Service October 12, 2022 Assessment & Plan (1) Syncope: Plan: Appears to be due to transient hypotension. no recurrence. Telemetry. Chest CTA negative for PE. Carotid Dopplers revealed no significant stenoses. Cardiac echo results noted. Moderate LVH with normal ejection fraction and no regional wall motion abnormalities noted. (2) Acute on chronic kidney failure: Plan: CKD stage III. Now resolved. Monitor intake and output. Serial labs (3) Cellulitis: Plan: Bilateral lower extremity cellulitis with significant erythema and warmth from ankles up to knees bilaterally noted on 10/06-started ceftriaxone and daptomycin No fevers, no leukocytosis. Improving.Ceftriaxone changed to Cefepime to cover for Pseudomonas growing in sputum. Continue daptomycin. Will discontinue at discharge. Continue oral Levaquin (4) Lymphedema: Plan: Bilateral lower extremities due to chronic venous insufficiency. Continue Lasix and watch renal function. (5) Elevated troponin: Plan: No evidence of acute coronary syndrome. No wall motion abnormalities on echocardiogram. No acute EKG changes. No chest pain (6) Early satiety: Plan: Reports gaseous distention and low appetite for many months. Seen by PCP and was referred to GI but has no appointment to the end of November. Checked CT abdomen/pelvis which showed fatty liver but no other significant findings. Keep follow-up appointment with GI as an outpatient for endoscopy. Continue simethicone and will also continue laxative for constipation (7) Lower leg edema: Plan: Appears to be due to chronic venous insufficiency and stasis versus lymphedema. Continue diuresis with IV Lasix. Elevation, MANAN hose during the day after cellulitis resolved (8) Hypokalemia: Plan: Oral potassium replacement. Serial labs (9) Avulsion injury of right elbow region: Plan: He has no current pain and he has normal range of motion. Appreciate orthopedic surgery consultation-recommend treating symptomatically, no need for splint but can use sling for comfort. Can be weight-bear as tolerated and range of motion as tolerated. Continue wound care to skin laceration over olecranon with daily dressing changes, wound check for sutures in 2-3 weeks. Already had appointment scheduled with Dr. Cross which will need to be rescheduled for right shoulder evaluation-he can follow-up with Dr. Cross for the elbow as well (10) COPD (chronic obstructive pulmonary disease): Plan: COPD is currently stable. However, he appears to have bronchitis. Sputum culture growing Pseudomonas. Received cefepime times 3 days and now on po Levaquin to complete 7 day course-last day of treatment will be 10/13 (11) PRISCILA (obstructive sleep apnea): Plan: Will use O2 hs (12) Chronic respiratory failure with hypoxia: Plan: Acute on chronic. Usually only needs nocturnal O2. With PULM HTN on ECHO, preserved EF . Requiring daytime 1-2 L NC O2. Continue diuretics. Continue oxygen per nasal cannula to maintain saturation greater than 90%. (13) Hypertension: Plan: Treated with diltiazem and diuretics. (14) Hypothyroidism: Plan: Continue levothyroxine replacement therapy. TSH 2.8 in 05/2022 (15) BPH (benign prostatic hyperplasia): Plan: Currently voiding without incident. We will follow. (16) GERD (gastroesophageal reflux disease): Plan: Continue PPI daily. (17) Skin tear: Plan: As above. Needs suture removal in 2 weeks from the arm (18) Contusion of face: Plan: Ecchymosis on right side of the face from fall. Expect this to eventually r esolve (19) Hematoma of right lower extremity: Plan: No intervention needed at this time. We will follow Plan DVT prophylaxis-Lovenox Disposition- insurance denied IPR placement. Case management pursuing SNF placement. Admission and Anticipated Discharge Date Admission Date: October 04, 2022 Subjective Alert and oriented. No acute distress. Brisk diuresis with IV Lasix. Hemodynamically stable. Potassium is slightly low at 3.3 and will be replaced Review of Systems Review of Systems: Constitutional-no fever or chills ENT-no blurred vision, no double vision, no epistaxis, no sore throat Respiratory-no cough, no wheezing, no shortness of breath Cardiac-no palpitations, no chest pain, no syncope GI-no nausea, vomiting, diarrhea, melena, hematochezia -no urinary retention, no urinary incontinence, no dysuria, no hematuria Musculoskeletal-diffuse erythema involving bilateral lower extremities below the knees associated with edema. Fluctuant tender area right lateral lower extremity just below the knee. Skin- chronic venous stasis changes bilateral lower extremities below the knees. Erythema has improved with antibiotic therapy Neuro-no isolated weakness, no paresthesia, no weakness Psych-no depression, no anxiety Physical Exam Physical Exam: General-alert and oriented x3, no fevers, no chills HEENT-right facial bruising noted from recent fall. Pupils equal and reactive to light, extraocular muscles intact Neck-no lymphadenopathy or thyromegaly, trachea midline Chest-midline rhonchi. No wheezing. No dullness Cardiac-regular rate and rhythm, normal S1 and S2 Abdomen-normal bowel sounds, nontender, no hepatosplenomegaly Extremities-mild chronic bilateral lower extremity edema unchanged per patient . Bilateral lower extremity erythema has improved considerably with antibiotic therapy. There is a tender fluctuant area along the lateral aspect of the right lower extremity Neuro-cranial nerves II through XII intact, motor and sensory function within normal limits, strength symmetrical , no focal deficits Psych-normal affect, normal mood Results & Data Results & Data ([facility]) Vital Signs (Past 12 Hours) Vital Signs Temp Pulse Pulse Resp BP Pulse Ox O2 Del Method 10/12/22 13:35 92 H 10/12/22 11:34 36.5 C 98 H 20 116/67 98 Nasal Cannula 10/12/22 07:36 Nasal Cannula 10/12/22 07:36 36.5 C 98 H 20 118/61 97 Nasal Cannula 10/12/22 07:12 92 H 10/12/22 03:25 37.0 C 86 18 132/76 97 Nasal Cannula O2 Flow Rate 10/12/22 13:35 10/12/22 11:34 2 10/12/22 07:36 2 10/12/22 07:36 2 10/12/22 07:12 10/12/22 03:25 Laboratory Results 10/12/22 09:37 10/12/22 09:37 PG Care Time/CCT Total # of Minutes Spent Total Time Spent with Patient: Total time spent is greater than 50% in coordination of care (as documented) at patient's floor/unit and/or counseling patient: Coding Level of Care Code 07680 SUB INP/OBS CARE 3/50MIN Diagnoses Syncope R55 Acute on chronic kidney failure N17.9; N18.9 Cellulitis L03.90 Lymphedema I89.0 Elevated troponin R77.8 Early satiety R68.81 Lower leg edema R60.0 Hypokalemia E87.6 Avulsion injury of right elbow region COPD (chronic obstructive pulmonary disease) 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 PRISCILA (obstructive sleep apnea) G47.33 Chronic respiratory failure with hypoxia J96.11 Hypertension I10 Hypertension type: essential hypertension Hypothyroidism E03.9 Hypothyroidism type: unspecified BPH (benign prostatic hyperplasia) N40.0 GERD (gastroesophageal reflux disease) K21.9 Esophagitis presence: esophagitis presence not specified Skin tear Contusion of face S00.83XA Hematoma of right lower extremity S80.11XA (1) Hypothyroidism Hypothyroidism type: unspecified Qualified Code(s): E03.9 - Hypothyroidism, unspecified (2) COPD (chronic 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
[2022-10-12] MEDS: POTASSIUM CHLORIDE CRTAB 20 MEQ TABCR PO SCH (21:18)
[2022-10-13] MEDS: [UNRECOGNIZED DRUG - REMARK] SCH ×3 (00:03→17:08)
[2022-10-13] MEDS: oxyCODONE HCL IR 5 MG TAB (IMMEDIATE RELEASE) PO PRN (00:47)
[2022-10-13] MEDS: FUROSEMIDE 40 MG/4 ML VIAL IV SCH ×2 (05:56→17:42)
[2022-10-13] MEDS: LEVOTHYROXINE SODIUM 150 MCG TABLET PO SCH (05:56)
[2022-10-13 08:17] LABS: Calcium 8.5 mg/dl (8.5-10.1); Potassium 3.2 mmol/L (3.5-5.1)
[2022-10-13 08:23] LABS: Creatinine Clr Calc Pharmacy 46.2 ml/min; Est GFR (African American) 58.3 ml/min; Est GFR (Non-African American) 50.3 ml/min
[2022-10-13] MEDS: SENNA 8.6 MG TAB PO SCH (08:42)
[2022-10-13] MEDS: MAGNESIUM OXIDE 400 MG TAB PO SCH (08:42)
[2022-10-13] MEDS: dilTIAZem HCL 180 MG CAPCR PO SCH (08:42)
[2022-10-13] MEDS: CALCIUM 600MG + VIT D 400 IU TAB PO SCH (08:42)
[2022-10-13] MEDS: POTASSIUM CHLORIDE CRTAB 20 MEQ TABCR PO SCH ×3 (08:42→21:48)
[2022-10-13] MEDS: PANTOprazole 40 MG TAB PO SCH (08:42)
[2022-10-13] MEDS: CHOLECALCIFEROL 1,000 UNITS 25 MCG TAB PO SCH (08:42)
[2022-10-13] MEDS: AMMONIUM LACTATE 12% LOTION 225 GM BTL EXT SCH ×2 (08:43→21:48)
[2022-10-13] MEDS: CLOTRIMAZOLE 1% CR 15 GM TUBE EXT SCH ×2 (08:43→21:48)
[2022-10-13] MEDS: FLUTICASONE FUROATE 100MCG 14 PUFFS/INHALER INH SCH (08:43)
[2022-10-13] MEDS: UMECLIDINIUM/VILANTEROL 62.5/25MCG 7 PUFFS/INHALER INH SCH (08:43)
[2022-10-13] MEDS: ENOXAPARIN INJ 30 MG/0.3 ML SYR SQ SCH (14:36)
--- NOTE | 2022-10-13 14:59 | Hospitalist Progress Note ---
Date of Service October 13, 2022 Assessment & Plan (1) Syncope: Plan: Appears to be due to transient hypotension. No recurrence. Continue telemetry. Chest CTA negative for PE. Carotid Dopplers revealed no significant stenoses. Cardiac echo results noted. Moderate LVH with normal ejection fraction and no regional wall motion abnormalities noted. (2) Acute on chronic kidney failure: Plan: CKD stage III. Now resolved. Monitor intake and output. Serial labs (3) Cellulitis: Plan: Bilateral lower extremity cellulitis with significant erythema and warmth from ankles up to knees bilaterally noted on 10/06-started ceftriaxone and daptomycin No fevers, no leukocytosis. Improving. Ceftriaxone has been changed to Cefepime to cover for Pseudomonas growing in sputum. Continue daptomycin. Will discontinue daptomycin at discharge. Continue oral Levaquin (4) Lymphedema: Plan: Bilateral lower extremities due to chronic venous insufficiency. Continue Lasix and watch renal function. (5) Elevated troponin: Plan: No evidence of acute coronary syndrome. No wall motion abnormalities on echocardiogram. No acute EKG changes. No chest pain (6) Early satiety: Plan: Reports gaseous distention and low appetite for many months. Seen by PCP and was referred to GI but has no appointment to the end of November. Checked CT abdomen/pelvis which showed fatty liver but no other significant findings. Keep follow-up appointment with GI as an outpatient for endoscopy. Continue simethicone and will also continue laxative for constipation (7) Lower leg edema: Plan: Appears to be due to chronic venous insufficiency and stasis versus lymphedema. Continue diuresis with IV Lasix. Elevation (8) Hypokalemia: Plan: Oral potassium replacement uptitrated today, October 13. Serial labs (9) Avulsion injury of right elbow region: Plan: He has no current pain and he has normal range of motion. Appreciate orthopedic surgery consultation-recommend treating symptomatically, no need for splint but can use sling for comfort. Can be weight-bear as tolerated and range of motion as tolerated. Continue wound care to skin laceration over olecranon with daily dressing changes, wound check for sutures in 2-3 weeks. Already had appointment scheduled with Dr. Cross which will need to be rescheduled for right shoulder evaluation-he can follow-up with Dr. Cross for the elbow as well (10) COPD (chronic obstructive pulmonary disease): Plan: COPD is currently stable. However, he appears to have bronchitis. Sputum culture growing Pseudomonas. Received cefepime times 3 days and now on po Levaquin to complete 7 day course-last day of treatment will be 10/13 (11) PRISCILA (obstructive sleep apnea): Plan: Will use O2 hs (12) Chronic respiratory failure with hypoxia: Plan: Acute on chronic. Usually only needs nocturnal O2. Pulm HTN noted on ECHO, preserved EF . Requiring 1-2 L NC O2. Continue diuretics. Continue oxygen per nasal cannula to maintain saturation greater than 90%. (13) Hypertension: Plan: Treated with diltiazem and diuretics. (14) Hypothyroidism: Plan: Continue levothyroxine replacement therapy. TSH 2.8 in 05/2022 (15) BPH (benign prostatic hyperplasia): Plan: Currently voiding without incident. We will follow. (16) GERD (gastroesophageal reflux disease): Plan: Continue PPI daily. (17) Skin tear: Plan: As above. Needs suture removal in 2 weeks from the arm (18) Contusion of face: Plan: Ecchymosis on right side of the face from fall. Expect this to eventually resolve (19) Hematoma of right lower extremity: Plan: Noted on lateral aspect of right calf. No intervention needed at this time. We will follow Plan DVT prophylaxis-Lovenox Disposition- insurance denied IPR placement. Case management pursuing SNF placement. Possible discharge to [facility] tomorrow, October 14 Admission and Anticipated Discharge Date Admission Date: October 04, 2022 Subjective Alert and oriented. No new problems. Potassium remains low at 3.2 and oral supplementation dosing increased. Possible discharge to [facility] tomorrow, October 14. Insurance denied inpatient rehabilitation. He remains on intravenous daptomycin which will be discontinued at discharge. He is also on oral Levaquin which will be continued. Intravenous Lasix will continue until discharge then he can be switched back to oral dosing. He remains on oxygen at 2 L/min with saturation 96%. This is his baseline. Cardiac echo reveals moderate LVH with normal ejection fraction. Review of Systems Review of Systems: Constitutional-no fever or chills ENT-no blurred vision, no double vision, no epistaxis, no sore throat Respiratory-no cough, no wheezing, no shortness of breath Cardiac-no palpitations, no chest pain, no syncope GI-no nausea, vomiting, diarrhea, melena, hematochezia -no urinary retention, no urinary incontinence, no dysuria, no hematuria Musculoskeletal-diffuse erythema involving bilateral lower extremities below the knees associated with edema. Fluctuant tender area right lateral lower extremity just below the knee. Skin- chronic venous stasis changes bilateral lower extremities below the knees. Erythema has improved with antibiotic therapy Neuro-no isolated weakness, no paresthesia, no weakness Psych-no depression, no anxiety Physical Exam Physical Exam: General-alert and oriented x3, no fevers, no chills HEENT-right facial bruising noted from recent fall. Pupils equal and reactive to light, extraocular muscles intact Neck-no lymphadenopathy or thyromegaly, trachea midline Chest-midline rhonchi. No wheezing. No dullness Cardiac-regular rate and rhythm, normal S1 and S2 Abdomen-normal bowel sounds, nontender, no hepatosplenomegaly Extremities-mild chronic bilateral lower extremity edema unchanged per patient . Bilateral lower extremity erythema has improved considerably with antibiotic therapy. There is a tender fluctuant area along the lateral aspect of the right lower extremity Neuro-cranial nerves II through XII intact, motor and sensory function within normal limits, strength symmetrical , no focal deficits Psych-normal affect, normal mood Results & Data Results & Data ([facility]) Vital Signs (Past 12 Hours) Vital Signs Temp Pulse Pulse Resp BP BP Pulse Ox 10/13/22 11:51 36.6 C 101 H 19 123/64 92 10/13/22 07:42 36.7 C 102 H 18 129/77 96 10/13/22 07:00 90 10/13/22 05:55 93 H 107/69 10/13/22 03:35 36.7 C 91 H 18 126/78 97 O2 Del Method O2 Flow Rate 10/13/22 11:51 Nasal Cannula 2 10/13/22 07:42 Nasal Cannula 2 10/13/22 07:00 10/13/22 05:55 10/13/22 03:35 Nasal Cannula Laboratory Results 10/12/22 09:37 10/13/22 07:10 PG Care Time/CCT Total # of Minutes Spent Total Time Spent with Patient: Total time spent is greater than 50% in coordination of care (as documented) at patient's floor/unit and/or counseling patient: Coding Level of Care Code 37819 SUB INP/OBS CARE 3/50MIN Diagnoses Syncope R55 Acute on chronic kidney failure N17.9; N18.9 Cellulitis L03.90 Lymphedema I89.0 Elevated troponin R77.8 Early satiety R68.81 Lower leg edema R60.0 Hypokalemia E87.6 Avulsion injury of right elbow region COPD (chronic obstructive pulmonary disease) 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 PRISCILA (obstructive sleep apnea) G47.33 Chronic respiratory failure with hypoxia J96.11 Hypertension I10 Hypertension type: essential hypertension Hypothyroidism E03.9 Hypothyroidism type: unspecified BPH (benign prostatic hyperplasia) N40.0 GERD (gastroesophageal reflux disease) K21.9 Esophagitis presence: esophagitis presence not specified Skin tear Contusion of face S00.83XA Hematoma of right lower extremity S80.11XA (1) Hypothyroidism Hypothyroidism type: unspecified Qualified Code(s): E03.9 - Hypothyroidism, unspecified (2) COPD (chronic 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
[2022-10-14] MEDS: [UNRECOGNIZED DRUG - REMARK] SCH ×3 (00:05→15:23)
[2022-10-14] MEDS: LEVOTHYROXINE SODIUM 150 MCG TABLET PO SCH (06:00)
[2022-10-14] MEDS: FUROSEMIDE 40 MG/4 ML VIAL IV SCH ×2 (06:00→16:28)
[2022-10-14 07:26] LABS: BUN Creatinine Ratio 21.8 (10-20); Calcium 8.7 mg/dl (8.5-10.1); Creatinine Clr Calc Pharmacy 49.6 ml/min; Est GFR (African American) 63.7 ml/min; Potassium 3.7 mmol/L (3.5-5.1)
[2022-10-14] MEDS: AMMONIUM LACTATE 12% LOTION 225 GM BTL EXT SCH ×2 (07:48→21:46)
[2022-10-14] MEDS: UMECLIDINIUM/VILANTEROL 62.5/25MCG 7 PUFFS/INHALER INH SCH (07:49)
[2022-10-14] MEDS: CLOTRIMAZOLE 1% CR 15 GM TUBE EXT SCH ×2 (07:49→21:45)
[2022-10-14] MEDS: SENNA 8.6 MG TAB PO SCH (07:50)
[2022-10-14] MEDS: CALCIUM 600MG + VIT D 400 IU TAB PO SCH (07:50)
[2022-10-14] MEDS: POTASSIUM CHLORIDE CRTAB 20 MEQ TABCR PO SCH ×2 (07:50→21:46)
[2022-10-14] MEDS: PANTOprazole 40 MG TAB PO SCH (07:51)
[2022-10-14] MEDS: dilTIAZem HCL 180 MG CAPCR PO SCH (07:51)
[2022-10-14] MEDS: CHOLECALCIFEROL 1,000 UNITS 25 MCG TAB PO SCH (07:51)
[2022-10-14] MEDS: FLUTICASONE FUROATE 100MCG 14 PUFFS/INHALER INH SCH (07:52)
--- NOTE | 2022-10-14 11:13 | Hospitalist Progress Note ---
Date of Service October 14, 2022 Assessment & Plan (1) Syncope: Plan: Likely vagally mediated. Had used the bathroom and had a BM at home, then proceeded to pass out. Chest CTA negative for PE. Carotid Dopplers without significant stenoses. Echo - preserved EF and no significant valvular idseae. Tele without arrhythmia. No recurrent events while hospitalized. (2) Acute on chronic kidney failure: Plan: Peak Cr 1.49 Today - 1.17 Thus, ALFONSO on CKD stage IIIa at baseline. BMP am in light of ongoing diuresis. (3) Cellulitis: Plan: b/l legs (shins) - extensive. 10/06-started ceftriaxone and daptomycin. Then Ceftriaxone changed to Cefepime to cover for Pseudomonas in sputum. Cefepime then changed to levaquin. Has completed 7+ days of IV therapy for gram negative coverage. 7 days of daptomycin. Given ongoing cellulitis added back abx today -- keflex TID + doxy BID. serial exams. (4) Lymphedema: Plan: Cont lasix (5) Elevated troponin: Plan: Patient with reproducible chest wall pain on exam today. Troponin remains elevated but only mildly. Troponin has never fully normalized while here. Significance and cause of such unceratin. Did see Dr Patton earlier in stay - see his note. No wall motion abnormalities on echocardiogram. No acute EKG changes today on repeat EKG. Plan to repeat the troponin in am. (6) Early satiety: Plan: Checked CT abdomen/pelvis which showed fatty liver but no other significant findings. Has f/u with GI within the next few weeks. EGD?? (7) Hypokalemia: Plan: replaced (8) Avulsion injury of right elbow region: Plan: Seen by ortho earlier this admission. no need for splint but can use sling for comfort. Can weight-bear as tolerated and range of motion as tolerated. Continue wound care to skin laceration. I applied 2 new steri-strips over the central portion of wound today to keep approximation intact. Other areas with sutures remain intact. wound check for sutures after d/c with orthopedics. Already had appointment scheduled with Dr. Cross which will need to be rescheduled for right shoulder evaluation-he can follow-up with Dr. Cross for the elbow as well. probably 1 week post-d/c. (9) COPD (chronic obstructive pulmonary disease): Plan: WITH EXACERBATION. 2nd to pseudomonas, pansens. 7 days of IV cefepime then PO levaquin. CXR today without significant findings but very poor air movement on exam. Added duonebs qid + saline nebs bid. Add solumedrol 40mg IV BID. (10) PRISCILA (obstructive sleep apnea): Plan: Will use O2 hs (11) Chronic respiratory failure with hypoxia: Plan: Usually only needs nocturnal O2. Now requiring [id number]. Suspect continuous need is due to #9. (12) Hypertension: Plan: Cont diltiazem and diuretics. (13) Hypothyroidism: Plan: Continue levothyroxine replacement therapy. TSH 2.8 in 05/2022 (14) BPH (benign prostatic hyperplasia): Plan: no LUTS (15) GERD (gastroesophageal reflux disease): Plan: Continue PPI daily. (16) Skin tear: Plan: Right elbow region - as above. Left hand dorsum - dressing changes. (17) Contusion of face: Plan: Ecchymosis on right side of the face from fall. Resolving. (18) Hematoma of right lower extremity: Plan: Noted on lateral aspect of right calf. No intervention needed at this time except warm compresses to hasten recovery. (19) Acute on chronic diastolic (congestive) heart failure: Plan: cont lasix 80mg BID labs in am re-eval in am Plan DVT prophylaxis-Lovenox dispo - [facility]- hold off on d/c today - too many active issues present left message for pt's on voicemail today Admission and Anticipated Discharge Date Admission Date: October 04, 2022 Subjective patient laying in recliner chair during the visit he continues with cough some sputum production has shortness of breath states all pulmonary symptoms are similar to baseline he does have home O2 but typically only uses such at night-time; here he has required it [id number] has mild leg pain on right near hematoma states legs are always a bit pink but the color today is worse than baseline (but improved from a few days ago when the legs were intensely red) continues mild right elbow pain also c/o pain over left hand at site of a skin ulceration eating fair Review of Systems Review of Systems: gen - no fevers or chills cv - had episode of chest discomfort when he was moving around and getting ready to go to radiology for cxr pulm - continued SOB/cough/wheezing GI - no abd pain or nausea/vomiting Physical Exam Physical Exam: gen - NAD, coughing at times mouth - MMM neck - no JVD heart - RRR, s1 s2 lungs - wheezing b/l, very poor air movement most of right lung, occasional crackle abd - soft NT ND BS+ ext - 1+ edema b/l ankles/distal legs; pulses 2+ b/l skin - healing skin tear/laceration right elbow region with sutures/steri strips in place; middle portion of wound with poor approximation; left hand dorsum - ulcer present between 4/5th fingers; no cellulitis; background of venous stasis b/l shins; cellulitis b/l legs; bruising right side of face chest - tender to palpation over sternum and sterno-costal margin b/l musculo - tender lateral epicondyle right elbow; mild swelling about the right elbow; large hematoma just below right knee, lateral aspect and wrapping posteriorly Results & Data Results & Data ([facility]) Vital Signs (Past 12 Hours) Vital Signs Temp Pulse Pulse Resp BP BP Pulse Ox 10/14/22 07:00 88 10/14/22 07:45 10/14/22 07:32 36.5 C 89 19 146/87 H 93 10/14/22 04:00 36.8 C 92 H 18 116/69 95 O2 Del Method O2 Flow Rate 10/14/22 07:00 10/14/22 07:45 Nasal Cannula 2 10/14/22 07:32 Nasal Cannula 2 10/14/22 04:00 Nasal Cannula Laboratory Results Laboratory Results - last 24 hr 10/14/22 06:41 Sodium 140 Potassium 3.7 Chloride 99 Carbon Dioxide 36 H Anion Gap 5 BUN 26 H Creatinine 1.19 Est Cr Clr Drug Dosing 49.6 Est GFR ( Amer) 63.7 Est GFR (Non-Af Amer) 55.0 BUN/Creatinine Ratio 21.8 H Glucose 95 Calcium 8.7 Diagnostic Findings Chest X-Ray 10/14/22 11:10 XR chest 2V PA/lateral HISTORY: 87 years-old Male decreased bs right, diffuse wheezing acute chest pain with wheezing COMPARISON: Chest radiograph 10/04/2022, CT abdomen pelvis 10/06/2022. TECHNIQUE: PA and lateral views of the chest FINDINGS: Cardiac silhouette is enlarged. No pneumothorax, large pleural effusion or overt pulmonary edema. Degenerative changes of the shoulders and spine. Chronic interstitial coarsening with mild subsegmental bibasilar densities. Degenerative changes of the shoulders and spine. IMPRESSION: 1. Cardiomegaly without pulmonary edema. 2. Emphysema with unchanged subsegmental bibasilar opacities favoring atelectasis/scarring. A mild pneumonitis could appear similarly. ACT 112: Negative or not required by law. The above report was generated using voice recognition software. It may contain grammatical, syntax or spelling errors. Electronically signed by: Denver Will M.D. 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 PRISCILA (obstructive sleep apnea) G47.33 Chronic respiratory failure with hypoxia J96.11 Hypertension I10 Hypertension type: essential hypertension Hypothyroidism E03.9 Hypothyroidism type: unspecified BPH (benign prostatic hyperplasia) N40.0 GERD (gastroesophageal reflux disease) K21.9 Esophagitis presence: esophagitis presence not specified Skin tear Contusion of face S00.83XA Hematoma of right lower extremity S80.11XA Acute on chronic diastolic (congestive) heart failure I50.33 (1) Hypothyroidism Hypothyroidism type: unspecified Qualified Code(s): E03.9 - Hypothyroidism, unspecified (2) COPD (chronic 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
[2022-10-14] MEDS: guaiFENesin 600 MG TABCR PO SCH ×2 (12:41→21:46)
[2022-10-14] MEDS: DOXYCYCLINE HYCLATE 100 MG CAP PO SCH ×2 (12:41→21:45)
[2022-10-14] MEDS: cephALEXin 500 MG CAP PO SCH ×2 (12:41→21:45)
[2022-10-14] MEDS: ENOXAPARIN INJ 30 MG/0.3 ML SYR SQ SCH (12:41)
[2022-10-14] MEDS: SODIUM CHLOR 7% 4 ML NEB NEB SCH ×2 (12:53→19:53)
--- NOTE | 2022-10-14 12:53 | XRay Report ---
XR chest 2V PA/lateral HISTORY: 87 years-old Male decreased bs right, diffuse wheezing acute chest pain with wheezing COMPARISON: Chest radiograph 10/04/2022, CT abdomen pelvis 10/06/2022. TECHNIQUE: PA and lateral views of the chest FINDINGS: Cardiac silhouette is enlarged. No pneumothorax, large pleural effusion or overt pulmonary edema. Deg enerative changes of the shoulders and spine. Chronic interstitial coarsening with mild subsegmental bibasilar densities. Degenerative changes of the shoulders and spine. IMPRESSION: 1. Cardiomegaly without pulmonary edema. 2. Emphysema with unchanged subsegmental bibasilar opacities favoring atelectasis/scarring. A mild pn eumonitis could appear similarly. ACT 112: Negative or not required by law. The above report was generated using voice recognition software. It may contain grammatical, syntax o r spelling errors. Electronically signed by: Denver Will M.D. 10/14/2022 12:52 PM
[2022-10-14] MEDS: oxyCODONE HCL IR 5 MG TAB (IMMEDIATE RELEASE) PO PRN (12:58)
[2022-10-14] MEDS: ALBUT/IPRATROP 3MG/0.5MG NEB 3 ML VIAL NEB SCH ×3 (13:06→19:53)
[2022-10-14] MEDS: methylPREDNISolone 40 MG in SYRINGE 0 ML IV SCH ×2 (14:17→21:45)
--- NOTE | 2022-10-14 16:10 | Electrocardiogram Report ---
Test Reason : Blood Pressure : / mmHG Vent. Rate : 101 BPM Atrial Rate : 127 BPM P-R Int : 000 ms QRS Dur : 078 ms QT Int : 394 ms P-R-T Axes : 000 -36 029 degrees QTc Int : 510 ms Sinus tachycardia with frequent , and consecutive Premature atrial complexes Left axis deviation Low voltage QRS Nonspecific ST abnormality Abnormal ECG When compared with ECG of 04-OCT-2022 12:34, No significant change Confirmed by Tyler Ward ([id number]) on 10/14/2022 4:10:12 PM Referred By: REFERRED SELF Confirmed By:Tyler Ward
--- NOTE | 2022-10-14 16:11 | Electrocardiogram Report ---
Test Reason : Blood Pressure : / mmHG Vent. Rate : 100 BPM Atrial Rate : 100 BPM P-R Int : 120 ms QRS Dur : 084 ms QT Int : 378 ms P-R-T Axes : 085 -35 006 degrees QTc Int : 487 ms Sinus rhythm with Premature atrial complexes in a pattern of bigeminy Left axis deviation Possible Anterior infarct , age undetermined Abnormal ECG When compared with ECG of 14-OCT-2022 12:50, (unconfirmed) Sinus rhythm has replaced Atrial fibrillation Confirmed by Tyler Ward ([id number]) on 10/14/2022 4:11:20 PM Referred By: REFERRED SELF Confirmed By:Tyler Ward
[2022-10-14] MEDS: DICLOFENAC SOD 1% GEL 100 GM TUBE EXT SCH ×2 (16:26→21:45)
[2022-10-15] MEDS: [UNRECOGNIZED DRUG - REMARK] SCH ×3 (02:17→17:44)
[2022-10-15] MEDS: LEVOTHYROXINE SODIUM 150 MCG TABLET PO SCH (05:53)
[2022-10-15] MEDS: SODIUM CHLOR 7% 4 ML NEB NEB SCH ×2 (07:12→22:15)
[2022-10-15] MEDS: ALBUT/IPRATROP 3MG/0.5MG NEB 3 ML VIAL NEB SCH ×4 (07:12→22:15)
[2022-10-15 07:38] LABS: Hematocrit (blood only) 37.7 % (42.0-52.0); Hemoglobin 12.5 g/dl (14.0-18.0); Mean Corpuscular Hemoglobin 28.2 pg (25.0-34.0); Mean Corpuscular Hgb Conc 33.2 g/dL (32.0-36.0); Mean Corpuscular Volume 85.1 fL (80.0-100.0); Mean Platelet Volume 11.8 fL (9.4-12.4); Platelet Count 304 K/uL (130-400); RDW Coefficient of Variation 14.6 % (11.5-14.5); RDW Standard Deviation 45.3 fL (36.4-46.3); Red Blood Count 4.43 M/uL (4.70-6.10); White Blood Count 12.62 K/ul (4.8-10.8)
[2022-10-15 08:16] LABS: BUN Creatinine Ratio 24.5 (10-20); Calcium 8.9 mg/dl (8.5-10.1); Creatinine Clr Calc Pharmacy 41.2 ml/min; Potassium 4.8 mmol/L (3.5-5.1); Troponin I High Sensitivity 346.7 pg/ml (0-20)
[2022-10-15] MEDS: DICLOFENAC SOD 1% GEL 100 GM TUBE EXT SCH ×4 (08:40→21:42)
[2022-10-15] MEDS: CLOTRIMAZOLE 1% CR 15 GM TUBE EXT SCH ×2 (08:40→21:42)
[2022-10-15] MEDS: FUROSEMIDE 40 MG/4 ML VIAL IV SCH (08:40)
[2022-10-15] MEDS: methylPREDNISolone 40 MG in SYRINGE 0 ML IV SCH ×2 (08:40→21:42)
[2022-10-15] MEDS: dilTIAZem HCL 180 MG CAPCR PO SCH (08:41)
[2022-10-15] MEDS: DOXYCYCLINE HYCLATE 100 MG CAP PO SCH ×2 (08:41→21:41)
[2022-10-15] MEDS: SENNA 8.6 MG TAB PO SCH (08:41)
[2022-10-15] MEDS: CALCIUM 600MG + VIT D 400 IU TAB PO SCH (08:41)
[2022-10-15] MEDS: guaiFENesin 600 MG TABCR PO SCH ×2 (08:41→21:41)
[2022-10-15] MEDS: MAGNESIUM OXIDE 400 MG TAB PO SCH (08:41)
[2022-10-15] MEDS: PANTOprazole 40 MG TAB PO SCH (08:41)
[2022-10-15] MEDS: AMMONIUM LACTATE 12% LOTION 225 GM BTL EXT SCH ×2 (08:41→21:42)
[2022-10-15] MEDS: POTASSIUM CHLORIDE CRTAB 20 MEQ TABCR PO SCH (08:41)
[2022-10-15] MEDS: cephALEXin 500 MG CAP PO SCH ×2 (08:41→21:43)
[2022-10-15] MEDS: CHOLECALCIFEROL 1,000 UNITS 25 MCG TAB PO SCH (08:41)
[2022-10-15] MEDS: UMECLIDINIUM/VILANTEROL 62.5/25MCG 7 PUFFS/INHALER INH SCH (08:42)
[2022-10-15] MEDS: FLUTICASONE FUROATE 100MCG 14 PUFFS/INHALER INH SCH (08:42)
[2022-10-15] MEDS: ENOXAPARIN INJ 30 MG/0.3 ML SYR SQ SCH (12:22)
[2022-10-15] MEDS: TRIAMCINOLONE ACET 0.1% CR 15 GM TUBE EXT SCH ×2 (13:35→21:42)
--- NOTE | 2022-10-15 20:47 | Hospitalist Progress Note ---
Date of Service October 15, 2022 Assessment & Plan (1) Syncope: Plan: Likely vagally mediated. Had used the bathroom and had a BM at home, then proceeded to pass out. Chest CTA negative for PE. Carotid Dopplers without significant stenoses. Echo - preserved EF and no significant valvular idseae. Tele without arrhythmia. No recurrent events while hospitalized. (2) Acute on chronic kidney failure: Plan: Peak Cr 1.49 Had normalized to 1.1 Now 1.4 today - likely from over-diuresis HOLD FURTHER IV LASIX repeat BMP am Thus, ALFONSO on CKD stage IIIa at baseline. BMP am in light of ongoing diuresis. (3) Cellulitis: Plan: b/l legs (shins) - extensive. 10/06-started ceftriaxone and daptomycin. Then Ceftriaxone changed to Cefepime to cover for Pseudomonas in sputum. Cefepime then changed to levaquin. Has completed 7+ days of IV therapy for gram negative coverage. 7 days of daptomycin - now d/c. Given ongoing cellulitis added back keflex TID + doxy BID on 10/14 - thus, day #2 of both. Probably will do 5-7 days of both abx. (4) Lymphedema: Plan: improved s/p aggressive diuresis while here (5) Elevated troponin: Plan: Patient with reproducible chest wall pain. Troponin remains elevated but only mildly. Troponin has never fully normalized while here. Significance and cause of such uncertain. Did see Dr Patton earlier in stay - see his note. No wall motion abnormalities on echocardiogram. Repeat troponin today is lower. Chest wall pain better with voltaren gel. Cont latter. (6) Early satiety: Plan: Checked CT abdomen/pelvis which showed fatty liver but no other significant findings. Has f/u with GI within the next few weeks. EGD?? (7) Hypokalemia: Plan: replaced resolved (8) Avulsion injury of right elbow region: Plan: Seen by ortho earlier this admission. no need for splint but can use sling for comfort. Can weight-bear as tolerated and range of motion as tolerated. Continue wound care to skin laceration. I applied 2 new steri-strips over the central portion of wound today to keep approximation intact. Other areas with sutures remain intact. wound check for sutures after d/c with orthopedics. Already had appointment scheduled with Dr. Cross which will need to be rescheduled for right shoulder evaluation-he can follow-up with Dr. Cross for the elbow as well. probably 1 week post-d/c. (9) COPD (chronic obstructive pulmonary disease): Plan: WITH EXACERBATION. 2nd to pseudomonas, pansens. 7 days of IV cefepime then PO levaquin. Added duonebs qid + saline nebs bid. Added solumedrol 40mg IV BID. After tonight's dose of solumedrol will stop and place on prednisone taper starting tomorrow. (10) PRISCILA (obstructive sleep apnea): Plan: O2 hs (11) Chronic respiratory failure with hypoxia: Plan: Usually only needs nocturnal O2. Now requiring [id number]. Suspect continuous need is due to #9. (12) Hypertension: Plan: Cont diltiazem (13) Hypothyroidism: Plan: Continue levothyroxine replacement therapy. TSH 2.8 in 05/2022 (14) BPH (benign prostatic hyperplasia): Plan: no LUTS (15) GERD (gastroesophageal reflux disease): Plan: Continue PPI daily. (16) Skin tear: Plan: Right elbow region - as above. Left hand dorsum - dressing changes. (17) Contusion of face: Plan: Ecchymosis on right side of the face from fall. Resolving. (18) Hematoma of right lower extremity: Plan: Noted on lateral aspect of right calf. No intervention needed at this time except warm compresses to hasten recovery. (19) Acute on chronic diastolic (congestive) heart failure: Plan: creatinine bumped overnight - resolved stop diuretics re-eval in am Plan DVT prophylaxis-Lovenox dispo - [facility] updated pt's by phone today hopefully d/c tomorrow Admission and Anticipated Discharge Date Admission Date: October 04, 2022 Subjective patient again sitting in recliner during the visit he overall feels decent today tele overnight NSR or sinus tach breathing is better still with mild cough but sputum is minimal chest wall pain is better with voltaren gel did use warm compress to RLE hematoma last pm - this helped discomfort feels that LE cellulitis is improved no new issues Review of Systems Review of Systems: gen - no fevers or chills cv - no orthopnea or PND pulm - no dyspnea at rest GI - no abd pain or nausea Physical Exam Physical Exam: gen - NAD, looks better today mouth - MMM neck - no JVD heart - RRR, s1 s2 lungs - wheezing but better than yesterday; air movement much improved; minimal crackles bases abd - soft NT ND BS+; body wall/left flank edema ext - <1+ edema b/l ankles/distal legs; pulses 2+ b/l skin - healing skin tear/laceration right elbow region with sutures/steri strips in place; background of venous stasis b/l shins; cellulitis b/l legs MUCH better - skin is pink and NOT warm; bruising right side of face chest - tenderness to palpation over sternum and sterno-costal margin b/l improved today musculo - large hematoma just below right knee, lateral aspect unchanged Results & Data Results & Data ([facility]) Vital Signs (Past 12 Hours) Vital Signs Temp Pulse Pulse Resp BP Pulse Ox O2 Del Method 10/15/22 16:30 107 H 10/15/22 16:30 Nasal Cannula 10/15/22 15:36 36.8 C 106 H 20 113/61 94 Nasal Cannula 10/15/22 14:55 104 H 18 94 Nasal Cannula 10/15/22 11:35 36.6 C 112 H 18 108/68 93 Nasal Cannula 10/15/22 10:45 110 H 20 93 Nasal Cannula O2 Flow Rate 10/15/22 16:30 10/15/22 16:30 2 10/15/22 15:36 2 10/15/22 14:55 2 10/15/22 11:35 2 10/15/22 10:45 2 Laboratory Results Laboratory Results - last 24 hr 10/15/22 10/15/22 06:51 06:51 WBC 12.62 H RBC 4.43 L Hgb 12.5 L Hct 37.7 L MCV 85.1 MCH 28.2 MCHC 33.2 RDW Std Deviation 45.3 RDW Coeff of [place] 14.6 H Plt Count 304 MPV 11.8 Sodium 138 Potassium 4.8 D Chloride 100 Carbon Dioxide 32 Anion Gap 6 BUN 35 H Creatinine 1.43 H Est Cr Clr Drug Dosing 41.2 Est GFR ( Amer) 51.0 Est GFR (Non-Af Amer) 44.0 BUN/Creatinine Ratio 24.5 H Glucose 149 H Calcium 8.9 Troponin I High Sens 346.7 H* PG Care Time/CCT Total # of Minutes Spent Total Time Spent with Patient: Total time spent is greater than 50% in coordination of care (as documented) at patient's floor/unit and/or counseling patient: Coding Level of Care Code 34608 SUB INP/OBS CARE 3/50MIN Diagnoses Syncope R55 Acute on chronic kidney failure N17.9; N18.9 Cellulitis L03.90 Lymphedema I89.0 Elevated troponin R77.8 Early satiety R68.81 Hypokalemia E87.6 Avulsion injury of right elbow region COPD (chronic obstructive pulmonary disease) 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 PRISCILA (obstructive sleep apnea) G47.33 Chronic respiratory failure with hypoxia J96.11 Hypertension I10 Hypertension type: essential hypertension Hypothyroidism E03.9 Hypothyroidism type: unspecified BPH (benign prostatic hyperplasia) N40.0 GERD (gastroesophageal reflux disease) K21.9 Esophagitis presence: esophagitis presence not specified Skin tear Contusion of face S00.83XA Hematoma of right lower extremity S80.11XA Acute on chronic diastolic (congestive) heart failure I50.33 (1) Hypothyroidism Hypothyroidism type: unspecified Qualified Code(s): E03.9 - Hypothyroidism, unspecified (2) COPD (chronic 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
[2022-10-16] MEDS: [UNRECOGNIZED DRUG - REMARK] SCH ×3 (04:12→16:25)
[2022-10-16] MEDS: LEVOTHYROXINE SODIUM 150 MCG TABLET PO SCH (05:57)
[2022-10-16] MEDS: ALBUT/IPRATROP 3MG/0.5MG NEB 3 ML VIAL NEB PRN ×2 (07:24→19:30)
[2022-10-16] MEDS: SODIUM CHLOR 7% 4 ML NEB NEB SCH ×2 (07:24→19:30)
[2022-10-16 09:00] LABS: Calcium 8.7 mg/dl (8.5-10.1); Potassium 4.5 mmol/L (3.5-5.1)
[2022-10-16 09:06] LABS: Creatinine Clr Calc Pharmacy 40.7 ml/min; Est GFR (African American) 50.2 ml/min; Est GFR (Non-African American) 43.3 ml/min
[2022-10-16] MEDS: PANTOprazole 40 MG TAB PO SCH (10:30)
[2022-10-16] MEDS: CHOLECALCIFEROL 1,000 UNITS 25 MCG TAB PO SCH (10:30)
[2022-10-16] MEDS: DOXYCYCLINE HYCLATE 100 MG CAP PO SCH ×2 (10:30→21:09)
[2022-10-16] MEDS: dilTIAZem HCL 180 MG CAPCR PO SCH (10:30)
[2022-10-16] MEDS: cephALEXin 500 MG CAP PO SCH ×2 (10:30→21:09)
[2022-10-16] MEDS: guaiFENesin 600 MG TABCR PO SCH ×2 (10:30→21:08)
[2022-10-16] MEDS: CALCIUM 600MG + VIT D 400 IU TAB PO SCH (10:30)
[2022-10-16] MEDS: SENNA 8.6 MG TAB PO SCH (10:30)
[2022-10-16] MEDS: FLUTICASONE FUROATE 100MCG 14 PUFFS/INHALER INH SCH (10:31)
[2022-10-16] MEDS: UMECLIDINIUM/VILANTEROL 62.5/25MCG 7 PUFFS/INHALER INH SCH (10:31)
[2022-10-16] MEDS: DICLOFENAC SOD 1% GEL 100 GM TUBE EXT SCH ×4 (10:32→21:09)
[2022-10-16] MEDS: CLOTRIMAZOLE 1% CR 15 GM TUBE EXT SCH ×2 (10:32→21:10)
[2022-10-16] MEDS: TRIAMCINOLONE ACET 0.1% CR 15 GM TUBE EXT SCH ×3 (10:32→21:10)
[2022-10-16] MEDS: AMMONIUM LACTATE 12% LOTION 225 GM BTL EXT SCH ×2 (10:33→21:09)
[2022-10-16] MEDS: ENOXAPARIN INJ 30 MG/0.3 ML SYR SQ SCH (13:29)
[2022-10-16] MEDS: ACETAMINOPHEN 325 MG TAB PO PRN (15:59)
[2022-10-16] MEDS: predniSONE 20 MG TAB PO SCH (15:59)
--- NOTE | 2022-10-16 22:02 | Hospitalist Progress Note ---
Date of Service October 16, 2022 Assessment & Plan (1) Syncope: Plan: Likely vagally mediated. Had used the bathroom and had a BM at home, then proceeded to pass out. Chest CTA negative for PE. Carotid Dopplers without significant stenoses. Echo - preserved EF and no significant valvular idseae. Tele without arrhythmia. No recurrent events while hospitalized. (2) Acute on chronic kidney failure: Plan: Peak Cr 1.49 Had normalized to 1.1 Then 1.4 again from over-diuresis cont to HOLD LASIX repeat BMP am BMP am in light of ongoing diuresis. baseline renal function is c/w stage 3 CKD (3) Cellulitis: Plan: b/l legs (shins) - resolved 10/06-started ceftriaxone and daptomycin. Then Ceftriaxone changed to Cefepime to cover for Pseudomonas in sputum. Cefepime then changed to levaquin. Has completed 7+ days of IV therapy for gram negative coverage. 7 days of daptomycin - now d/c. Added back keflex TID + doxy BID on 10/14 - thus, day #3 of both. Probably will do 7 days of both abx. (4) Lymphedema: Plan: improved s/p aggressive diuresis while here (5) Elevated troponin: Plan: Patient with reproducible chest wall pain. Troponin remains elevated but only mildly. Troponin has never fully normalized while here. Significance and cause of such uncertain. Did see Dr Patton earlier in stay - see his note. No wall motion abnormalities on echocardiogram. Chest wall pain essentially resolved with voltaren gel. (6) Early satiety: Plan: Checked CT abdomen/pelvis which showed fatty liver but no other significant findings. Has f/u with GI within the next few weeks. EGD?? other w/u? (7) Hypokalemia: Plan: replaced resolved (8) Avulsion injury of right elbow region: Plan: Seen by ortho earlier this admission. no need for splint but can use sling for comfort. Can weight-bear as tolerated and range of motion as tolerated. Continue wound care to skin laceration. I applied 2 new steri-strips over the central portion of wound today to keep approximation intact. Other areas with sutures remain intact. wound check for sutures after d/c with orthopedics. Already had appointment scheduled with Dr. Cross which will need to be rescheduled for right shoulder evaluation-he can follow-up with Dr. Cross for the elbow as well. probably 1 week post-d/c. (9) COPD (chronic obstructive pulmonary disease): Plan: WITH EXACERBATION. 2nd to pseudomonas, pansens. 7 days of IV cefepime then PO levaquin. Cont saline nebs. Stopped solumedrol 40mg IV BID --> changed to po prednisone this am 40mg daily. taper over 7 days or so. (10) PRISCILA (obstructive sleep apnea): Plan: O2 hs (11) Chronic respiratory failure with hypoxia: Plan: Usually only needs nocturnal O2. Now requiring [id number]. Suspect continuous need is due to #9. Cont continuous NC O2. (12) Hypertension: Plan: Cont diltiazem (13) Hypothyroidism: Plan: Continue levothyroxine replacement therapy. TSH 2.8 in 05/2022 (14) BPH (benign prostatic hyperplasia): Plan: no LUTS (15) GERD (gastroesophageal reflux disease): Plan: Continue PPI daily. (16) Skin tear: Plan: Right elbow region - as above. Left hand dorsum - dressing changes. (17) Contusion of face: Plan: Ecchymosis on right side of the face from fall. Resolving. (18) Hematoma of right lower extremity: Plan: Noted on lateral aspect of right calf. No intervention needed at this time except warm compresses to hasten recovery. improving slowly. (19) Acute on chronic diastolic (congestive) heart failure: Plan: acute component resolved hold diuretics due to rise in creatinine resume lasix once creatinine has improved Plan DVT prophylaxis-Lovenox dispo - [facility] - hopefully tomorrow updated pt's by phone yesterday and at bedside today sinus tach - chronic per records, and probably worsened by albuterol d/c albuterol Admission and Anticipated Discharge Date Admission Date: October 04, 2022 Subjective no changes overnight tele - sinus tach or NSR he feels decent today - breathing is about baseline mild cough only sputum has essentially resolved right elbow pain controlled he is pleased with appearance of his legs (cellulitis) used warm compress on RLE hematoma and this helped Review of Systems Review of Systems: gen - no fevers cv - chest wall musculoskeletal pain improved/nearly resolved pulm - no change in chronic REID GI - no nausea/emesis Physical Exam Physical Exam: gen - NAD, looks good today; sitting in recliner mouth - MMM neck - no JVD heart - RRR, s1 s2 lungs - mild wheezing but better than yesterday once again; air movement good; no rales today; decreased BS bases abd - soft NT ND BS+; body wall/b/l flank edema worse on Left ext - <1+ edema b/l ankles/distal legs; pulses 2+ b/l skin - healing skin tear/laceration right elbow region with sutures/steri strips in place; background of venous stasis b/l shins; cellulitis b/l legs resolved - skin is pink and NOT warm; bruising right side of face resolving; ulceration left hand dorsum scabbed over chest - tenderness to palpation over sternum resolved musculo - large hematoma just below right knee, lateral aspect -- smaller today Results & Data Results & [facility] ([facility]) Vital Signs (Past 12 Hours) Vital Signs Temp Pulse Pulse Resp BP BP Pulse Ox 10/16/22 19:43 36.5 C 97 H 20 121/72 97 10/16/22 19:31 96 H 16 96 10/16/22 16:00 112 H 10/16/22 15:20 36.5 C 100 H 20 134/85 98 10/16/22 10:58 36.4 C L 106 H 18 133/75 96 O2 Del Method O2 Flow Rate 10/16/22 19:43 Nasal Cannula 2.0 10/16/22 19:31 Nasal Cannula 2 10/16/22 16:00 10/16/22 15:20 Nasal Cannula 2 10/16/22 10:58 Nasal Cannula 2 Laboratory Results Laboratory Results - last 24 hr 10/16/22 06:54 Sodium 137 Potassium 4.5 Chloride 99 Carbon Dioxide 32 Anion Gap 6 BUN 45 H Creatinine 1.45 H Est Cr Clr Drug Dosing 40.7 Est GFR ( Amer) 50.2 Est GFR (Non-Af Amer) 43.3 BUN/Creatinine Ratio 31.0 H Glucose 141 H Calcium 8.7 PG Care Time/CCT Total # of Minutes Spent Total Time Spent with Patient: Total time spent is greater than 50% in coordination of care (as documented) at patient's floor/unit and/or counseling patient: Coding Level of Care Code 08537 SUB INP/OBS CARE 3/50MIN Diagnoses Syncope R55 Acute on chronic kidney failure N17.9; N18.9 Cellulitis L03.90 Lymphedema I89.0 Elevated troponin R77.8 Early satiety R68.81 Hypokalemia E87.6 Avulsion injury of right elbow region COPD (chronic obstructive pulmonary disease) 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 PRISCILA (obstructive sleep apnea) G47.33 Chronic respiratory failure with hypoxia J96.11 Hypertension I10 Hypertension type: essential hypertension Hypothyroidism E03.9 Hypothyroidism type: unspecified BPH (benign prostatic hyperplasia) N40.0 GERD (gastroesophageal reflux disease) K21.9 Esophagitis presence: esophagitis presence not specified Skin tear Contusion of face S00.83XA Hematoma of right lower extremity S80.11XA Acute on chronic diastolic (congestive) heart failure I50.33 (1) Hypothyroidism Hypothyroidism type: unspecified Qualified Code(s): E03.9 - Hypothyroidism, unspecified (2) COPD (chronic 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
[2022-10-17] MEDS: [UNRECOGNIZED DRUG - REMARK] SCH ×2 (00:20→08:32)
[2022-10-17] MEDS: LEVOTHYROXINE SODIUM 150 MCG TABLET PO SCH (05:42)
[2022-10-17] MEDS: SODIUM CHLOR 7% 4 ML NEB NEB SCH (06:49)
[2022-10-17 07:49] LABS: Hematocrit (blood only) 38.7 % (42.0-52.0); Hemoglobin 12.5 g/dl (14.0-18.0); Mean Corpuscular Hgb Conc 32.3 g/dL (32.0-36.0); Mean Corpuscular Volume 86.6 fL (80.0-100.0); Mean Platelet Volume 11.6 fL (9.4-12.4); Platelet Count 304 K/uL (130-400); RDW Coefficient of Variation 14.5 % (11.5-14.5); RDW Standard Deviation 46.1 fL (36.4-46.3); Red Blood Count 4.47 M/uL (4.70-6.10); White Blood Count 15.76 K/ul (4.8-10.8)
[2022-10-17] MEDS: AMMONIUM LACTATE 12% LOTION 225 GM BTL EXT SCH (08:32)
[2022-10-17] MEDS: ACETAMINOPHEN 325 MG TAB PO PRN (08:32)
[2022-10-17] MEDS: TRIAMCINOLONE ACET 0.1% CR 15 GM TUBE EXT SCH ×2 (08:33→12:30)
[2022-10-17] MEDS: CLOTRIMAZOLE 1% CR 15 GM TUBE EXT SCH (08:33)
[2022-10-17] MEDS: DICLOFENAC SOD 1% GEL 100 GM TUBE EXT SCH ×2 (08:33→12:30)
[2022-10-17] MEDS: DOXYCYCLINE HYCLATE 100 MG CAP PO SCH (08:34)
[2022-10-17] MEDS: dilTIAZem HCL 180 MG CAPCR PO SCH (08:34)
[2022-10-17] MEDS: CALCIUM 600MG + VIT D 400 IU TAB PO SCH (08:34)
[2022-10-17] MEDS: predniSONE 20 MG TAB PO SCH (08:34)
[2022-10-17] MEDS: guaiFENesin 600 MG TABCR PO SCH (08:34)
[2022-10-17] MEDS: cephALEXin 500 MG CAP PO SCH (08:34)
[2022-10-17] MEDS: SENNA 8.6 MG TAB PO SCH (08:34)
[2022-10-17] MEDS: CHOLECALCIFEROL 1,000 UNITS 25 MCG TAB PO SCH (08:34)
[2022-10-17] MEDS: MAGNESIUM OXIDE 400 MG TAB PO SCH (08:34)
[2022-10-17] MEDS: PANTOprazole 40 MG TAB PO SCH (08:35)
[2022-10-17] MEDS: UMECLIDINIUM/VILANTEROL 62.5/25MCG 7 PUFFS/INHALER INH SCH (08:35)
[2022-10-17] MEDS: FLUTICASONE FUROATE 100MCG 14 PUFFS/INHALER INH SCH (08:36)
[2022-10-17 08:50] LABS: BUN Creatinine Ratio 38.8 (10-20); Calcium 9.4 mg/dl (8.5-10.1); Est GFR (African American) 55.2 ml/min; Est GFR (Non-African American) 47.6 ml/min
[2022-10-17] MEDS ORDERED: FUROSEMIDE 80 MG TAB PO STA (11:25)
[2022-10-17] MEDS: ENOXAPARIN INJ 30 MG/0.3 ML SYR SQ SCH (12:30)
--- NOTE | 2022-10-17 15:18 | Discharge Summary ---
Date of Service October 17, 2022 Admission HPI Per Admitting Provider Isma Wesley is an 87-year-old male with a past medical history of COPD, PRISCILA, chronic respiratory failure with hypoxia on oxygen at night, HFpEF, hypertension, GERD, and hypothyroidism who is presenting today after fall at home. Patient was walking to the bathroom last evening and made it to the toilet, was having a bowel movement when he suddenly passed out to the floor, with near immediate regain of consciousness. He notes he took 2 stool softeners last evening due to constipation. He denies experiencing any chest pain, palpitations, shortness of breath, lightheadedness, dizziness, abdominal pain, nausea, or vomiting prior to the episode or since. He was able to get himself off the floor with some difficulty and pain specifically to his left shoulder and right elbow and had some bleeding from his arm due to a skin tear. Did not hit his head, not having any head pain. He is not on any blood thinners. No other complaints at this time besides the slightly elevated 1.49, baseline over past year 1.21.3. On presentation, patient has been tachycardic 90-110s, he is mildly hypertensive otherwise vital signs within normal limits, he is on his usual 2 LNC and afebrile. Labs notable for a white count of 11 with a mild left shift, potassium 2.8, creatinine up to 1.49, baseline 1.21.3. Glucose 110. No other electrolyte abnormalities. Imaging which included head CT, face CT, left shoulder x-ray, pelvis x-ray, right hand and right elbow x-ray, CXR is only remarkable for slight prominence of the anterior humeral fat pad and an age-indeterminate calcific density about the lateral condyle, concerning for possible avulsion fracture. Discharge Exam gen - NAD, looks good today; sitting in recliner mouth - MMM neck - no JVD heart - RRR, s1 s2 lungs - mild wheezing but better than yesterday once again; air movement good; no rales today; decreased BS bases abd - soft NT ND BS+; body wall/b/l flank edema worse on Left ext - <1+ edema b/l ankles/distal legs; pulses 2+ b/l skin - healing skin tear/laceration right elbow region with sutures/steri strips in place; background of venous stasis b/l shins; cellulitis b/l legs resolved - skin is pink and NOT warm; bruising right side of face resolving; ulceration left hand dorsum scabbed over chest - tenderness to palpation over sternum resolved musculo - large hematoma just below right knee, lateral aspect -- smaller today Discharge Data Allergies Allergy/AdvReac Type Severity Reaction Status Date / Time clarithromycin Allergy Intermediate RASH Verified 10/04/22 14:47 Consultations 10/04/22 14:10 ED Decision to Admit Stat 10/04/22 16:34 Consult Orthopedic Surgery Routine 10/06/22 14:28 Consult Cardiology Routine Ordered Studies 10/04/22 05:50 CT cervical spine wo con Urgent 10/04/22 05:51 CT head/brain wo con Urgent 10/04/22 10:12 CT facial bones wo con Stat 10/04/22 12:28 CT angio chest PE protocol Stat 10/04/22 16:34 US carotid doppler BI Routine 10/06/22 14:20 CT abd pelvis wo con Routine 10/11/22 11:46 CT leg [CT tib/fib RT w con] Urgent 10/17/22 12:02 US venous doppler LE Urgent Hospital Course (1) Syncope: Likely vagally mediated. Had used the bathroom and had a BM at home, then proceeded to pass out. Chest CTA negative for PE. Carotid Dopplers without significant stenoses. Echo - preserved EF and no significant valvular idseae. Tele without arrhythmia. No recurrent events while hospitalized. (2) Acute on chronic kidney failure: Peak Cr 1.49 Had normalized to 1.1 Then 1.4 again from over-diuresis cont to HOLD LASIX repeat BMP am BMP am in light of ongoing diuresis. baseline renal function is c/w stage 3 CKD (3) Cellulitis: b/l legs (shins) - resolved 10/06-started ceftriaxone and daptomycin. Then Ceftriaxone changed to Cefepime to cover for Pseudomonas in sputum. Cefepime then changed to levaquin. Has completed 7+ days of IV therapy for gram negative coverage. 7 days of daptomycin - now d/c. Added back keflex TID + doxy BID on 10/14 - thus, day #3 of both. Probably will do 7 days of both abx. (4) Lymphedema: improved s/p aggressive diuresis while here (5) Elevated troponin: Patient with reproducible chest wall pain. Troponin remains elevated but only mildly. Troponin has never fully normalized while here. Significance and cause of such uncertain. Did see Dr Patton earlier in stay - see his note. No wall motion abnormalities on echocardiogram. Chest wall pain essentially resolved with voltaren gel. (6) Early satiety: Checked CT abdomen/pelvis which showed fatty liver but no other significant findings. Has f/u with GI within the next few weeks. EGD?? other w/u? (7) Hypokalemia: replaced resolved (8) Avulsion injury of right elbow region: Seen by ortho earlier this admission. no need for splint but can use sling for comfort. Can weight-bear as tolerated and range of motion as tolerated. Continue wound care to skin laceration. I applied 2 new steri-strips over the central portion of wound today to keep approximation intact. Other areas with sutures remain intact. wound check for sutures after d/c with orthopedics. Already had appointment scheduled with Dr. Cross which will need to be rescheduled for right shoulder evaluation-he can follow-up with Dr. Cross for the elbow as well. probably 1 week post-d/c. (9) COPD (chronic obstructive pulmonary disease): WITH EXACERBATION. 2nd to pseudomonas, pansens. 7 days of IV cefepime then PO levaquin. Cont saline nebs. Stopped solumedrol 40mg IV BID --> changed to po prednisone this am 40mg daily. taper over 7 days or so. (10) PRISCILA (obstructive sleep apnea): O2 hs (11) Chronic respiratory failure with hypoxia: Usually only needs nocturnal O2. Now requiring [id number]. Suspect continuous need is due to #9. Cont continuous NC O2. (12) Hypertension: Cont diltiazem (13) Hypothyroidism: Continue levothyroxine replacement therapy. TSH 2.8 in 05/2022 (14) BPH (benign prostatic hyperplasia): no LUTS (15) GERD (gastroesophageal reflux disease): Continue PPI daily. (16) Skin tear: Right elbow region - as above. Left hand dorsum - dressing changes. (17) Contusion of face: Ecchymosis on right side of the face from fall. Resolving. (18) Hematoma of right lower extremity: Noted on lateral aspect of right calf. No intervention needed at this time except warm compresses to hasten recovery. improving slowly. (19) Acute on chronic diastolic (congestive) heart failure: acute component resolved hold diuretics due to rise in creatinine resume lasix once creatinine has improved Plan DVT prophylaxis-Lovenox dispo - [facility] - hopefully tomorrow updated pt's by phone yesterday and at bedside today sinus tach - chronic per records, and probably worsened by albuterol d/c albuterol Discharge Plan Discharge Items Patient Disposition: Transfer [facility] Reason For Visit: FALL WITH MULTIPLE SKIN TEARS AND ABRASIONS Discharge Diagnosis: 1. syncope after using the bathroom at home - vasovagal syncope suspected 2. fall with multiple skin tears, abrasions, and a right elbow laceration requiring suture repair 3. suspected avulsion fracture of right elbow 4. right leg hematoma due to fall 5. acute/chronic diastolic CHF 6. COPD exacerbation due to pseudomonas 7. bilateral leg cellulitis - resolving 8. acute hypoxic respiratory failure 2nd to #6 - resolved, stable in room air at rest at time of discharge; needs 2-step to determine if ambulatory oxygen is needed 9. hypothyroidism 10. contusion of face due to fall Activity: Resume your previous activity Activity Comment: as tolerated Weightbearing Comment: R arm: weight-bear as tolerated; range of motion as tolerated; sling prn Non-emergency contact: Primary Care Provider and Surgeon Call non-emergency contact if: you have any medication questions, your symptoms worsen and your pain is not controlled Follow-up/Referrals: Yariel Alfonso DO [Physician] - (first available appt; dx - early satiety. ) Pro,Tyler Gomez MD [Primary Care Provider] - Grabiel Cross DO [Physician] - (7-10 days for f/u of shoulder issues and recheck of right elbow laceration and right elbow avulsion fracture. ) Diet: Heart Healthy Fluids: 1800ml (7 cups) Addtl Attending Provider Instructions: Mr Wesley was hospitalized after having had a syncopal episode at home. He had a bowel movement which was followed by the syncope. He fell to the ground causing facial contusion, skin abrasions, laceration of the right elbow, avulsion fracture of right elbow, hematoma of right leg, and ulcer on left hand dorsum. Suspect vasovagal episode caused his syncope. Stay was complicated by COPD flare due to pseudomonas infection, acute/chronic diastolic CHF, bilateral leg cellulitis, and chest wall pain - thought to be due to his fall. Recommendations - 1. daily weights if possible please; please notify medical transcription editor if any weight gain of more than 2-3 pounds in 1-2 days. 2. NC O2 - 2 liters with sleep/naps; he may need O2 with activity/ambulation - will need walking ambulatory O2 test to determine. Ok to remove O2 when sitt ing, watching TV, etc. 3. warm compresses to right leg hematoma several times a day. 4. optifoam to left hand dorsum ulceration. 5. local wound care, if needed, to right elbow laceration. leave all sutures intact at this time. allow steri strips to naturally fall off. 6. sling to the right arm for comfort, if desired by patient. 7. consider 30-day event monitor to rule out arrhythmia as cause of syncope, but again I suspect it was a vasovagal episode. 8. CBC, BMP, and magnesium in 3-4 days for stability. Pending Studies at Discharge: No Stand-Alone Forms: My [facility] Skilled Items Patient informed of condition?: Yes DNR: No Discharge Level of Care: Skilled Communicable Disease: No Discharge Prognosis: Stable Lines: None Urinary Catheter: No Medications and DC Order Prescriptions: New doxycycline hyclate 100 mg Capsule 100 mg PO BID 4 Days Qty: 8 0RF ipratropium-albuterol 0.5 mg-3 mg(2.5 mg base)/3 mL Solution For Nebulization 3 ml NEB Q6H PRN (Reason: cough/wheeze/dyspnea) Qty: 1 0RF cephalexin 500 mg Capsule 500 mg PO BID 4 Days Qty: 8 0RF sodium chloride 7 % Solution For Nebulization 4 ml NEB BIDR 3 Days Qty: 120 0RF Rx Instructions: use twice daily for 3 days, then BID prn thereafter for cough/congestion/wheezing. diclofenac sodium [Voltaren Arthritis Pain] 1 % Gel 4 g EXT QID 5 Days Qty: 1 0RF Rx Instructions: apply to central chest wall at site of pain. sennosides [Senokot] 8.6 mg Tablet 8.6 mg PO QAM Qty: 30 0RF prednisone 10 mg tablet 10 mg PO .daily as directed Qty: 12 0RF Rx Instructions: start 2/4/23: 3 tabs daily x 2 days; 2 tabs daily x 2 days; 1 tab daily x 2 days. take w/ food. pantoprazole 40 mg Tablet,Delayed Release (Dr/Ec) 40 mg PO DAILY Qty: 30 2RF Continued furosemide 40 mg tablet 80 mg PO DAILY Qty: 180 3RF promethazine-DM 6.25-15 mg/5 mL syrup 5 ml PO Q6H PRN (Reason: cough) Qty: 473 0RF levothyroxine 150 mcg tablet 150 mcg PO QAM Qty: 90 3RF potassium chloride 20 mEq tablet,ER particles/crystals 40 meq PO 3XWK Qty: 72 3RF Rx Instructions: take 40mEq on Thursday, Thursday, Thursday diltiazem HCl [Tiazac] 180 mg capsule,extended release 24 hr 180 mg PO QAM 90 Days Qty: 90 3RF Trelegy Ellipta 100-62.5-25 mcg blister with device 1 inh INH QAM Qty: 3 3RF ciclopirox 8 % solution 1 applic topical DAILY Qty: 6.6 4RF Rx Instructions: Apply to affected nails daily. Do not wash nails for 8hr post application. Remove w/alcohol every 7 days calcium carbonate-vitamin D3 [Calcium 500 With D] 500 mg(1,250mg) -400 unit Tablet 1 tab PO QAM magnesium 250 mg Tablet 250 mg PO 3XWK Rx Instructions: Thursday,Thursday,Thursday cholecalciferol (vitamin D3) 1,000 unit (25 mcg) tablet 1,000 units PO QAM multivitamin Tablet 1 tab PO QAM acetaminophen [Tylenol Extra Strength] 500 mg Tablet 1,000 mg PO Q6 PRN (Reason: Pain) psyllium husk 3 gram/5.4 gram powder 1 tbsp PO DAILY PRN (Reason: Constipation) oxycodone 5 mg Tablet 2.5 mg PO Q4H PRN (Reason: Pain) Qty: 30 0RF Changed albuterol sulfate [Ventolin HFA] 90 mcg/actuation HFA aerosol inhaler 2 puff inhalation Q6H Qty: 8.5 5RF Discontinued Prilosec OTC 20 mg tablet,delayed release (DR/EC) 20 mg PO QAM Qty: 90 3RF (DME) Oxygen Home Liters Per Minute See Rx Instructions .Route Rx Instructions: Use 2L via nasal cannula continuously; may increase up to 4L with activity as needed. Discharge Orders: Discharge Order (Routine); Ordered 10/17/22 Ordered By: Uday Kong Admission Data Admit Date/Time: 10/04/22 14:00 Attending Provider: Uday Kong Admit Provider: Tony Mcqueen Primary Care Provider: Tyler Hawkins Other Providers: Tony Mcqueen ; Trevor Cruz ; [facility] ; [facility] ; [facility] ; Stas Patton Coding Diagnoses Syncope R55 Acute on chronic kidney failure N17.9; N18.9 Cellulitis L03.90 Lymphedema I89.0 Elevated troponin R77.8 Early satiety R68.81 Hypokalemia E87.6 Avulsion injury of right elbow region COPD (chronic obstructive pulmonary disease) 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 PRISCILA (obstructive sleep apnea) G47.33 Chronic respiratory failure with hypoxia J96.11 Hypertension I10 Hypertension type: essential hypertension Hypothyroidism E03.9 Hypothyroidism type: unspecified BPH (benign prostatic hyperplasia) N40.0 GERD (gastroesophageal reflux disease) K21.9 Esophagitis presence: esophagitis presence not specified Skin tear Contusion of face S00.83XA Hematoma of right lower extremity S80.11XA Acute on chronic diastolic (congestive) heart failure I50.33
--- NOTE | 2022-10-17 16:01 | Ultrasound Report ---
ULTRASOUND BILATERAL LOWER EXTREMITY VENOUS CLINICAL HISTORY: Lower extremity edema. COMPARISON STUDY: Bilateral lower extremity venous ultrasound dated 03/25/2021 TECHNIQUE: Real-time, grayscale, and color Doppler sonography of the deep veins of the right and left lower extremity was performed from the inguinal crease to the calf. Compression and augmentation wer e utilized. FINDINGS: There is no sonographic evidence of deep venous thrombosis identified in the right or left lower extremity. The common femoral, superficial femoral, and popliteal veins are patent and normally compressible bilaterally. The greater saphenous vein and the profunda femoris vein at the junction w ith the common femoral vein are clear in both legs. The visualized calf veins are patent bilaterally. Soft tissue edema is present in both legs. IMPRESSION: There is no sonographic evidence of deep venous thrombosis identified in the right or lef t lower extremity. ACT 112: Negative or not required by law. Electronically signed by: Roosevelt Hairston M.D. 10/17/2022 4:00 PM
== END 2022-10-17 17:02 | DRG 312 ==
LOC: ED 05:17 → 2S 14:00 → SUATTDRO 14:00 → 2S 16:15

== ENCOUNTER 2022-11-05 11:30 | Inpatient (IN) ==
[2022-11-05 12:28] LABS: Appearance Urine Clear (Clear); Bilirubin Urine Negative (Negative); Blood Urine Negative (Negative); Color Urine Yellow; Glucose Urine UA Negative (Negative); Ketones Urine Negative (Negative); Leukocyte Esterase Urine Negative (Negative); Nitrite Urine Negative (Negative); Protein Urine Negative (Negative); Specific Gravity Urine 1.013 (1.000-1.030); Urobilinogen Urine Negative (Negative); pH Urine 5.5 (4.5-7.5)
--- NOTE | 2022-11-05 12:28 | Emergency Department Note ---
Impression & Plan Chest pain, REID (dyspnea on exertion), Elevated troponin I level, Tachycardia, Light-headedness ED Provider Note Provider: Shaggy Cooper MD DATE OF SERVICE: 11/05/2022 CHIEF COMPLAINT: Irregular heart rate HISTORY OF PRESENT ILLNESS: Patient is a 87-year-old gentleman history of heart failure, PVD, gout, and osteoporosis presenting here today referred from his primary care doctor's office after calling in. Home health evidently noted an irregular heart rhythm yesterday and sent him here for further evaluation. Patient is home several days from [facility] after recent stay there and prior hospitalization here. Patient denies syncopized in her falling. States is chronic amount of cough but no change with this may be little bit of discomfort with the coughing at times. PAST MEDICAL HISTORY: As noted above MEDICATIONS: Reviewed home medications SOCIAL HISTORY: Lives at home with PHYSICAL EXAM: GENERAL: alert and oriented in no acute distress on stretcher Head: normocephalic and atraumatic EYES: No injection, discharge or icterus. PERRL, EOMI. NECK: Trachea midline. Supple. ENT: Mucous membranes pink and moist. LUNGS: Airway patent. No retractions. Breath sounds clear with good air entry bilaterally. HEA irregular tachycardic rate and rhythm. No chest wall tenderness ABDOMEN: Soft and non-tender, without guarding or rebound. SKIN: Acyanotic, warm, dry, with scattered contusions on the upper extremities. EXTREMITIES: 1-2+ edema of the lower extremities with some compression devices particular on the right lower extremity present. NEUROLOGICAL: No focal deficits moving all extremities. No aphasia. No facial droop or slurred speech. EK bpm sinus tachycardia with PACs. Left axis. No acute ST segment elevation or depression. QTc 451. CONTINUOUS CARDIAC MONITORING: was ordered and showed a heart rate of 100s-120s bpm in sinus rhythm with frequent PACs Patient's laboratory studies and imaging reviewed. Differential includes cardiac abnormalities and arrhythmia, infection, dehydration, metabolic abnormality, hypo/hyperglycemia, electrolyte disturbance, anemia, hypoxia, intracerebral event, toxicologic, neurologic, as well as other pathologies. IMPRESSION/MEDICAL DECISION MAKING: Patient noting some episodes of tachycardia. Referred by 's office after contacted by [facility]. Little bit of chest pain with deep breaths and certain movements. Recent hospitalization and then rehab stay home for several days. Does have some leg swelling. Not acutely altered and no trauma reported. Heart rate is elevated here but EKG and telemetry indicate sinus rhythm with PACs. Is somewhat tachycardic at times. Hypertensive here. Does seem to have some hypoxia on room air but is normally on. Chest x-ray obtained and reviewed and per my interpretation radiology report evidence of some interstitial disease but no pneumothorax or pneumonia clearly noted. [id number] arrived and state the patient was lightheaded earlier today. Review of EKG showed the patient does have a history of PACs on recent EKG similar to today. Slight anemia. Leukocytosis but recent similar leukocytosis noted. Negative urinalysis and COVID. TSH within normal limits. Chemistries and troponin with abnormalities and given difficult draw and hemolysis, placed a new 18-gauge IV and new labs were sent. Did receive or juice and crackers here for the low glucose. CT of the chest given his tachycardia and slight hypoxia was completed without evidence of PE with chronic bronchiectasis changes. [id number] does confirm the patient is complaining of some chest discomfort at times. What seems somewhat musculoskeletal, elevated troponin today on initial blood work is concerning and patient also having a fair amount of tachycardia. Again not atrial fibrillation. No hypoxia is also interesting but do not clearly see an infectious source. Does not seem that fluid overloaded. Repeat labs without significant hyponatremia, hy perkalemia, acute renal dysfunction, with a minimal hypocalcemia of 8.0. Troponin again in the 800s which appears to be much higher than previous baseline here. He is having some chest discomfort. Discussed with him and [id number] at bedside findings. Again difficult with tremor to truly appreciate clear pulse ox Pleth but seems to be weaned to room air with a forehead monitor. Attempted ambulation at bedside and does very very poorly. Did not take his morning dose of diltiazem in the process of getting here to the ER. This was ordered. Given the patient's significant fall risk due to his dyspnea and tachycardia with even just standing at bedside, discussed staying for further care. Hospitalist consulted. DIAGNOSIS: Palpitations, lightheadedness, chest discomfort, dyspnea on exertion DISPOSITION: Hospitalist will evaluate Patient was agreeable with this plan. Past Med/Surg History Medical History Acute and chronic respiratory failure Acute on chronic diastolic (congestive) heart failure Acute on chronic diastolic (congestive) heart failure Acute on chronic kidney failure Avulsion injury of right elbow region Back problem BPH (benign prostatic hyperplasia) Candidal diaper rash Cellulitis Cellulitis Cellulitis Cellulitis of both lower extremities Cellulitis of left leg Cellulitis of left lower extremity CHI (closed head injury) Chronic obstructive pulmonary disease Chronic respiratory failure with hypoxia Contusion of elbow Contusion of face COPD (chronic obstructive pulmonary disease) Early satiety Elevated troponin Fluid retention in legs GERD (gastroesophageal reflux disease) Hematoma of right lower extremity History of bronchitis History of cellulitis Hypernatremia Hypertension Hypothyroidism Hypothyroidism (acquired) Left lumbar radiculopathy Leg length discrepancy Livedo reticularis Lumbar spinal stenosis Lymphedema MRSA (methicillin resistant Staphylococcus aureus) On home oxygen therapy 02 2LPM AT HS PRISCILA (obstructive sleep apnea) Osteoarthritis Osteoporosis, unspecified Personal history of MRSA (methicillin resistant Staphylococcus aureus) Pulmonary edema Pulmonary nodule Sepsis Sepsis Skin tear Sleep apnea cpap Spinal stenosis Syncope Urethral stricture Vitamin D deficiency Surgical History History of cardiac cath 12/2019 - [place] - increased edema - no stents/angioplasty History of cholecystectomy History of colonoscopy History of herniorrhaphy left inguinal History of partial knee replacement left History of tonsillectomy History of tooth extraction Hx of surgical procedure LEFT FEMUR FX WITH REPAIR Family History Mother Cerebral atherosclerosis Father Diverticulosis Other No significant family history Denies family history of Ovarian cancer Prostate cancer Myocardial infarction Breast cancer Colorectal cancer Social History Smoking Status: Former smoker Tobacco Type: Cigarettes Age Started Using Tobacco: 22; packs per day: 1; Cigarettes Per Day: 20; Second Hand Exposure: No; Hx Alcohol Use: No Hx Substance Use: Yes Last Used Substance: Hours (ago) Last Used Substance Other:: medical marijuana for back pain last used at 0400 Preferred Language: Romanian Communication Ability: Effective Visual Impairment: No Limitations Hearing Ability: Normal [employer] Required: No Beliefs That Will Affect Care: None marital status: Current Living Situation: Spouse current occupational status: retired Feels Safe at Home: Yes Dental Care, Regularly: No Physical Activity Frequency: 1-2 Times per Week Seatbelt Use: always Sunscreen Use: Yes Assistive Devices: Cane, Oxygen - at Night and Walker Allergies Allergies Allergy/AdvReac Type Severity Reaction Status Date / Time clarithromycin Allergy Intermediate RASH Verified 10/23/22 13:42 Home Meds Home Medications Medication Instructions Recorded Confirmed magnesium 250 mg tablet 250 mg PO 3XWK 08/02/18 11/05/22 cholecalciferol (vitamin D3) 25 1,000 units PO QAM 05/30/19 11/05/22 mcg (1,000 unit) tablet multivitamin 1 tab PO QAM 09/04/20 11/05/22 acetaminophen 500 mg tablet 1,000 mg PO Q6 PRN Pain 03/25/21 11/05/22 (Tylenol Extra Strength) diclofenac sodium 1 % topical gel 2 g topical QID 10/23/22 11/05/22 metolazone 5 mg tablet 5 mg PO Q OTHER DAY 11/05/22 11/05/22 omeprazole 40 mg capsule,delayed 40 mg PO DAILY 11/05/22 11/05/22 release Previous Rx's Medication Instructions Recorded furosemide 40 mg tablet 80 mg PO DAILY #180 tabs 07/16/21 promethazine-DM 6.25 mg-15 mg/5 mL 5 ml PO Q6H PRN cough #473 mL 09/24/21 oral syrup levothyroxine 150 mcg tablet 150 mcg PO QAM #90 tabs 02/03/22 potassium chloride 20 mEq 40 meq PO 3XWK #72 tabs 03/25/22 tablet,extended release(part/cryst) diltiazem HCl 180 mg capsule,24 180 mg PO QAM 90 days #90 caps 04/22/22 hr,extended release (Tiazac) fluticasone fur. 100 mcg-umeclid 1 inh inhalation QAM #3 Inhalers 08/26/22 62.5 mcg-vilant 25 mcg inhalat.powder (Trelegy Ellipta) albuterol sulfate 90 mcg/actuation 2 puff inhalation Q6H #8.5 grams 10/17/22 aerosol inhaler (Ventolin HFA) ipratropium 0.5 mg-albuterol 3 mg 3 ml NEB Q6H PRN 10/17/22 (2.5 mg base)/3 mL nebulization cough/wheeze/dyspnea #1 box soln oxycodone 5 mg tablet 2.5 mg PO Q4H PRN Pain #30 tabs 10/17/22 pantoprazole 40 mg tablet,delayed 40 mg PO DAILY #30 tabs 10/17/22 release sennosides 8.6 mg tablet (Senokot) 8.6 mg PO QAM #30 tabs 10/17/22 Results & Data (ED) Vital Signs Vital Signs - 24 hr 11/05/22 11:47 11/05/22 12:51 11/05/22 11:41 Temperature 36.8 C Temperature Source Oral Pulse Rate 104 H 117 H 122 H Pulse Rate from SpO2 Sensor Pulse Rhythm Regular Pulse Strength Normal Respiratory Rate 17 17 Respiratory Effort / Characteristics Non-Labored Spontaneous Respiratory Depth Normal Respiratory Pattern Regular Blood Pressure 115/81 Blood Pressure Mean 92 Blood Pressure Position Lying Pulse Oximetry 95 Oxygen Delivery Method Room Air Sepsis Recent Fever Within 48 Hours No Sepsis New/Unexplained Change in Mental Status No Sepsis Action Taken by Nursing No Action Required 11/05/22 11:50 11/05/22 12:00 11/05/22 12:01 Temperature Temperature Source Pulse Rate 132 H 106 H Pulse Rate from SpO2 Sensor 101 H Pulse Rhythm Pulse Strength Respiratory Rate 22 26 H Respiratory Effort / Characteristics Respiratory Depth Respiratory Pattern Blood Pressure 152/88 H Blood Pressure Mean 109 Blood Pressure Position Pulse Oximetry 94 Oxygen Delivery Method Sepsis Recent Fever Within 48 Hours Sepsis New/Unexplained Change in Mental Status Sepsis Action Taken by Nursing 11/05/22 12:01 11/05/22 12:10 11/05/22 12:20 Temperature Temperature Source Pulse Rate 125 H 111 H 122 H Pulse Rate from SpO2 Sensor 108 H 103 H Pulse Rhythm Pulse Strength Respiratory Rate 17 15 18 Respiratory Effort / Characteristics Respiratory Depth Respiratory Pattern Blood Pressure Blood Pressure Mean Blood Pressure Position Pulse Oximetry 96 93 Oxygen Delivery Method Sepsis Recent Fever Within 48 Hours Sepsis New/Unexplained Change in Mental Status Sepsis Action Taken by Nursing 11/05/22 12:30 11/05/22 12:30 11/05/22 12:40 Temperature Temperature Source Pulse Rate 101 H 104 H Pulse Rate from SpO2 Sensor 95 H Pulse Rhythm Pulse Strength Respiratory Rate 20 18 Respiratory Effort / Characteristics Respiratory Depth Respiratory Pattern Blood Pressure 156/100 H Blood Pressure Mean 118 Blood Pressure Position Pulse Oximetry 92 Oxygen Delivery Method Sepsis Recent Fever Within 48 Hours Sepsis New/Unexplained Change in Mental Status Sepsis Action Taken by Nursing 11/05/22 12:50 11/05/22 13:00 11/05/22 13:01 Temperature Temperature Source Pulse Rate 104 H 118 H Pulse Rate from SpO2 Sensor 113 H 121 H Pulse Rhythm Pulse Strength Respiratory Rate 16 24 Respiratory Effort / Characteristics Respiratory Depth Respiratory Pattern Blood Pressure 170/122 H Blood Pressure Mean 138 Blood Pressure Position Pulse Oximetry 95 84 L Oxygen Delivery Method Sepsis Recent Fever Within 48 Hours Sepsis New/Unexplained Change in Mental Status Sepsis Action Taken by Nursing 11/05/22 13:01 11/05/22 13:10 11/05/22 13:20 Temperature Temperature Source Pulse Rate 131 H 138 H 114 H Pulse Rate from SpO2 Sensor 150 H 114 H Pulse Rhythm Pulse Strength Respiratory Rate 19 15 19 Respiratory Effort / Characteristics Respiratory Depth Respiratory Pattern Blood Pressure Blood Pressure Mean Blood Pressure Position Pulse Oximetry 92 92 Oxygen Delivery Method Sepsis Recent Fever Within 48 Hours Sepsis New/Unexplained Change in Mental Status Sepsis Action Taken by Nursing 11/05/22 13:30 11/05/22 13:40 11/05/22 13:50 Temperature Temperature Source Pulse Rate 113 H 141 H 118 H Pulse Rate from SpO2 Sensor 107 H 77 Pulse Rhythm Pulse Strength Respiratory Rate 19 20 19 Respiratory Effort / Characteristics Respiratory Depth Respiratory Pattern Blood Pressure 170/122 H Blood Pressure Mean 138 Blood Pressure Position Pulse Oximetry 92 93 Oxygen Delivery Method Sepsis Recent Fever Within 48 Hours Sepsis New/Unexplained Change in Mental Status Sepsis Action Taken by Nursing 11/05/22 14:12 11/05/22 14:12 11/05/22 14:20 Temperature Temperature Source Pulse Rate 112 H Pulse Rate from SpO2 Sensor 157 H Pulse Rhythm Pulse Strength Respiratory Rate 21 27 H Respiratory Effort / Characteristics Respiratory Depth Respiratory Pattern Blood Pressure 134/100 Blood Pressure Mean 111 Blood Pressure Position Pulse Oximetry 95 Oxygen Delivery Method Room Air Sepsis Recent Fever Within 48 Hours Sepsis New/Unexplained Change in Mental Status Sepsis Action Taken by Nursing 11/05/22 14:30 11/05/22 14:30 11/05/22 14:40 Temperature Temperature Source Pulse Rate 113 H 115 H Pulse Rate from SpO2 Sensor 112 H 98 H Pulse Rhythm Pulse Strength Respiratory Rate 19 16 Respiratory Effort / Characteristics Respiratory Depth Respiratory Pattern Blood Pressure 152/80 H Blood Pressure Mean 104 Blood Pressure Position Pulse Oximetry 99 97 Oxygen Delivery Method Sepsis Recent Fever Within 48 Hours Sepsis New/Unexplained Change in Mental Status Sepsis Action Taken by Nursing 11/05/22 14:50 11/05/22 15:00 11/05/22 15:00 Temperature Temperature Source Pulse Rate 131 H 107 H Pulse Rate from SpO2 Sensor 125 H 103 H Pulse Rhythm Pulse Strength Respiratory Rate 20 17 Respiratory Effort / Characteristics Respiratory Depth Respiratory Pattern Blood Pressure 136/101 H Blood Pressure Mean 112 Blood Pressure Position Pulse Oximetry 96 99 Oxygen Delivery Method Sepsis Recent Fever Within 48 Hours Sepsis New/Unexplained Change in Mental Status Sepsis Action Taken by Nursing 11/05/22 15:10 11/05/22 15:20 11/05/22 15:29 Temperature Temperature Source Pulse Rate 100 H 103 H 106 H Pulse Rate from SpO2 Sensor 108 H 103 H 99 H Pulse Rhythm Pulse Strength Respiratory Rate 15 17 16 Respiratory Effort / Characteristics Respiratory Depth Respiratory Pattern Blood Pressure Blood Pressure Mean Blood Pressure Position Pulse Oximetry 98 96 98 Oxygen Delivery Method Room Air Room Air Room Air Sepsis Recent Fever Within 48 Hours Sepsis New/Unexplained Change in Mental Status Sepsis Action Taken by Nursing 11/05/22 15:30 11/05/22 17:04 11/05/22 15:30 Temperature Temperature Source Pulse Rate 110 H 100 H Pulse Rate from SpO2 Sensor 96 H Pulse Rhythm Pulse Strength Respiratory Rate 18 Respiratory Effort / Characteristics Respiratory Depth Respiratory Pattern Blood Pressure 155/89 H Blood Pressure Mean 111 Blood Pressure Position Pulse Oximetry 99 Oxygen Delivery Method Room Air Sepsis Recent Fever Within 48 Hours Sepsis New/Unexplained Change in Mental Status Sepsis Action Taken by Nursing 11/05/22 15:40 11/05/22 15:50 11/05/22 16:00 Temperature Temperature Source Pulse Rate 98 H 132 H Pulse Rate from SpO2 Sensor 96 H 118 H Pulse Rhythm Pulse Strength Respiratory Rate 16 24 Respiratory Effort / Characteristics Respiratory Depth Respiratory Pattern Blood Pressure 164/97 H Blood Pressure Mean 119 Blood Pressure Position Pulse Oximetry 97 96 Oxygen Delivery Method Room Air Room Air Sepsis Recent Fever Within 48 Hours Sepsis New/Unexplained Change in Mental Status Sepsis Action Taken by Nursing 11/05/22 16:00 11/05/22 16:10 11/05/22 16:20 Temperature Temperature Source Pulse Rate 100 H 94 H 108 H Pulse Rate from SpO2 Sensor 105 H 103 H 107 H Pulse Rhythm Pulse Strength Respiratory Rate 21 16 17 Respiratory Effort / Characteristics Respiratory Depth Respiratory Pattern Blood Pressure Blood Pressure Mean Blood Pressure Position Pulse Oximetry 98 97 98 Oxygen Delivery Method Room Air Sepsis Recent Fever Within 48 Hours Sepsis New/Unexplained Change in Mental Status Sepsis Action Taken by Nursing 11/05/22 16:30 11/05/22 16:40 11/05/22 16:50 Temperature Temperature Source Pulse Rate 120 H 119 H 106 H Pulse Rate from SpO2 Sensor 113 H 118 H 89 Pulse Rhythm Pulse Strength Respiratory Rate 23 27 H 21 Respiratory Effort / Characteristics Respiratory Depth Respiratory Pattern Blood Pressure Blood Pressure Mean Blood Pressure Position Pulse Oximetry 99 98 97 Oxygen Delivery Method Sepsis Recent Fever Within 48 Hours Sepsis New/Unexplained Change in Mental Status Sepsis Action Taken by Nursing 11/05/22 17:00 11/05/22 17:10 11/05/22 17:20 Temperature Temperature Source Pulse Rate 119 H 160 H 131 H Pulse Rate from SpO2 Sensor 127 H 118 H 107 H Pulse Rhythm Pulse Strength Respiratory Rate 31 H 22 21 Respiratory Effort / Characteristics Respiratory Depth Respiratory Pattern Blood Pressure Blood Pressure Mean Blood Pressure Position Pulse Oximetry 97 93 100 Oxygen Delivery Method Sepsis Recent Fever Within 48 Hours Sepsis New/Unexplained Change in Mental Status Sepsis Action Taken by Nursing 11/05/22 17:30 Temperature Temperature Source Pulse Rate 109 H Pulse Rate from SpO2 Sensor 103 H Pulse Rhythm Pulse Strength Respiratory Rate 37 H Respiratory Effort / Characteristics Respiratory Depth Respiratory Pattern Blood Pressure Blood Pressure Mean Blood Pressure Position Pulse Oximetry 96 Oxygen Delivery Method Sepsis Recent Fever Within 48 Hours Sepsis New/Unexplained Change in Mental Status Sepsis Action Taken by Nursing Laboratory Data 11/05/22 12:07 11/05/22 12:07 Lab Results 11/05/22 11/05/22 11/05/22 Range/Units 12:07 12:07 12:07 WBC Cancelled RBC Cancelled Hgb Cancelled Hct Cancelled MCV Cancelled MCH Cancelled MCHC Cancelled RDW Std Deviation Cancelled RDW Coeff of Jordan Cancelled Plt Count Cancelled MPV Cancelled Immature Gran % (Auto) Cancelled Neut % (Auto) Cancelled Lymph % (Auto) Cancelled Benson % (Auto) Cancelled Eos % (Auto) Cancelled Baso % (Auto) Cancelled Neut # (Auto) Cancelled Lymph # (Auto) Cancelled Benson # (Auto) Cancelled Eos # (Auto) Cancelled Baso # (Auto) Cancelled Immature Gran # (Auto) Cancelled Absolute Nucleated RBC Cancelled Nucleated RBC % (auto) Cancelled Neutrophils % (Manual) Cancelled Band Neutrophils % Cancelled Lymphocytes % (Manual) Cancelled Prolymphocyte % Cancelled Reactive Lymphs % (Man) Cancelled Monocytes % (Manual) Cancelled Eosinophils % (Manual) Cancelled Basophils % (Manual) Cancelled Metamyelocytes % (Man) Cancelled Myelocytes % (Man) Cancelled Promyelocytes % (Man) Cancelled Blast Cells % (Manual) Cancelled Plasma Cell % (Manual) Cancelled Other Cells % Cancelled Nucleated RBC % Cancelled Neutrophils # (Manual) Cancelled Band Neutrophils # Cancelled Total Absolute Neuts Cancelled Lymphocytes # (Manual) Cancelled Prolymphocyte # Cancelled Reactive Lymphs # Cancelled Total Abs Lymphocytes Cancelled Monocytes # (Manual) Cancelled Eosinophils # (Manual) Cancelled Basophils # (Manual) Cancelled Metamyelocytes # (Man) Cancelled Myelocytes # (Manual) Cancelled Promyelocytes # (Man) Cancelled Blast Cells # (Man) Cancelled Plasma Cell # (Manual) Cancelled Other Cells # Cancelled Nucleated RBCs # (Man) Cancelled Hypersegmented Neuts Cancelled Hyposegmented Neuts Cancelled Hypogranular Neuts Cancelled Large Granular Lymphs Cancelled # Lrg Granular Lymphs Cancelled Hairy Cells Cancelled Smudge Cells Cancelled Toxic Granulation Cancelled Toxic Vacuolation Cancelled Dohle Bodies Cancelled Bernice Rods Cancelled Platelet Estimate Cancelled Hypogranular Platelets Cancelled Giant Platelets Cancelled Platelet Satelliting Cancelled RBC Morphology Cancelled Polychromasia Cancelled Hypochromasia Cancelled Poikilocytosis Cancelled Basophilic Stippling Cancelled Anisocytosis Cancelled Microcytosis Cancelled Macrocytosis Cancelled Spherocytes Cancelled Pappenheimer Bodies Cancelled Sickle Cells Cancelled Target Cells Cancelled Tear Drop Cells Cancelled Ovalocytes Cancelled Stomatocytes Cancelled [place] Bodies Cancelled Echinocytes Cancelled Acanthocytes (Spur) Cancelled Rouleaux Cancelled RBC Agglutinates Cancelled Schistocytes Cancelled [place]zary Cell Cancelled Sodium 143 (136-145) mmol/L Potassium TNP Chloride 119 H (98-107) mmol/L Carbon Dioxide 21 (21-32) mmol/L Anion Gap 3 (3-11) BUN 18 (6-23) mg/dl Creatinine 0.57 L (0.6-1.4) mg/dl Est Cr Clr Drug Dosing 101.4 ml/min Est GFR ( Amer) 107.8 ml/min Est GFR (Non-Af Amer) 93.0 ml/min BUN/Creatinine Ratio 31.6 H (10-20) Glucose 51 L* (70-99(Fasting)) mg/dl Calcium 5.9 L* (8.5-10.1) mg/dl Magnesium 1.5 L (1.7-2.4) mg/dl Total Bilirubin 0.5 (0.2-1.0) mg/dl AST TNP ALT 9 (7-52) U/L Alkaline Phosphatase 46 (34-104) U/L Troponin I High Sens 834.1 H* (0-20) pg/ml Total Protein 4.5 L (6.0-8.3) gm/dl Albumin 2.5 L (3.4-5.0) gm/dl Globulin 2.0 L (2.5-4.0) gm/dl Albumin/Globulin Ratio 1.3 (0.9-2) TSH 1.414 (0.300-4.500) uIu/ml Urine Color Urine Appearance (Clear) Urine pH (4.5-7.5) Ur Specific [place] (1.000-1.030) Urine Protein (Negative) Urine Glucose (UA) (Negative) Urine Ketones (Negative) Urine Blood (Negative) Urine Nitrite (Negative) Urine Bilirubin (Negative) Urine Urobilinogen (Negative) Ur Leukocyte Esterase (Negative) SARS-CoV-2, RNA, NAAT (NEGATIVE) Blood Parasites ID Cancelled 11/05/22 11/05/22 11/05/22 Range/Units 12:07 12:11 12:53 WBC 17.06 H RBC 4.95 Hgb 13.8 L Hct 42.6 MCV 86.1 MCH 27.9 MCHC 32.4 RDW Std Deviation 46.7 H RDW Coeff of Jordan 14.9 H Plt Count 223 MPV 11.4 Immature Gran % (Auto) 1.8 Neut % (Auto) 86.6 Lymph % (Auto) 4.4 Benson % (Auto) 7.0 Eos % (Auto) 0.1 Baso % (Auto) 0.1 Neut # (Auto) 14.77 H Lymph # (Auto) 0.75 L Benson # (Auto) 1.19 H Eos # (Auto) 0.02 Baso # (Auto) 0.02 Immature Gran # (Auto) 0.31 H Absolute Nucleated RBC Nucleated RBC % (auto) Neutrophils % (Manual) Band Neutrophils % Lymphocytes % (Manual) Prolymphocyte % Reactive Lymphs % (Man) Monocytes % (Manual) Eosinophils % (Manual) Basophils % (Manual) Metamyelocytes % (Man) Myelocytes % (Man) Promyelocytes % (Man) Blast Cells % (Manual) Plasma Cell % (Manual) Other Cells % Nucleated RBC % Neutrophils # (Manual) Band Neutrophils # Total Absolute Neuts Lymphocytes # (Manual) Prolymphocyte # Reactive Lymphs # Total Abs Lymphocytes Monocytes # (Manual) Eosinophils # (Manual) Basophils # (Manual) Metamyelocytes # (Man) Myelocytes # (Manual) Promyelocytes # (Man) Blast Cells # (Man) Plasma Cell # (Manual) Other Cells # Nucleated RBCs # (Man) Hypersegmented Neuts Hyposegmented Neuts Hypogranular Neuts Large Granular Lymphs # Lrg Granular Lymphs Hairy Cells Smudge Cells Toxic Granulation Toxic Vacuolation Dohle Bodies Bernice Rods Platelet Estimate Hypogranular Platelets Giant Platelets Platelet Satelliting RBC Morphology Polychromasia Hypochromasia Poikilocytosis Basophilic Stippling Anisocytosis Microcytosis Macrocytosis Spherocytes Pappenheimer Bodies Sickle Cells Target Cells Tear Drop Cells Ovalocytes Stomatocytes [place] Bodies Echinocytes Acanthocytes (Spur) Rouleaux RBC Agglutinates Schistocytes Sezary Cell Sodium (136-145) mmol/L Potassium Chloride (98-107) mmol/L Carbon Dioxide (21-32) mmol/L Anion Gap (3-11) BUN (6-23) mg/dl Creatinine (0.6-1.4) mg/dl Est Cr Clr Drug Dosing ml/min Est GFR ( Amer) ml/min Est GFR (Non-Af Amer) ml/min BUN/Creatinine Ratio (10-20) Glucose (70-99(Fasting)) mg/dl Calcium (8.5-10.1) mg/dl Magnesium (1.7-2.4) mg/dl Total Bilirubin (0.2-1.0) mg/dl AST ALT (7-52) U/L Alkaline Phosphatase (34-104) U/L Troponin I High Sens (0-20) pg/ml Total Protein (6.0-8.3) gm/dl Albumin (3.4-5.0) gm/dl Globulin (2.5-4.0) gm/dl Albumin/Globulin Ratio (0.9-2) TSH (0.300-4.500) uIu/ml Urine Color Yellow Urine Appearance Clear (Clear) Urine pH 5.5 (4.5-7.5) Ur Specific [place] 1.013 (1.000-1.030) Urine Protein Negative (Negative) Urine Glucose (UA) Negative (Negative) Urine Ketones Negative (Negative) Urine Blood Negative (Negative) Urine Nitrite Negative (Negative) Urine Bilirubin Negative (Negative) Urine Urobilinogen Negative (Negative) Ur Leukocyte Esterase Negative (Negative) SARS-CoV-2, RNA, NAAT NEGATIVE (NEGATIVE) Blood Parasites ID 11/05/22 Range/Units 14:12 WBC RBC Hgb Hct MCV MCH MCHC RDW Std Deviation RDW Coeff of Jordan Plt Count MPV Immature Gran % (Auto) Neut % (Auto) Lymph % (Auto) Benson % (Auto) Eos % (Auto) Baso % (Auto) Neut # (Auto) Lymph # (Auto) Benson # (Auto) Eos # (Auto) Baso # (Auto) Immature Gran # (Auto) Absolute Nucleated RBC Nucleated RBC % (auto) Neutrophils % (Manual) Band Neutrophils % Lymphocytes % (Manual) Prolymphocyte % Reactive Lymphs % (Man) Monocytes % (Manual) Eosinophils % (Manual) Basophils % (Manual) Metamyelocytes % (Man) Myelocytes % (Man) Promyelocytes % (Man) Blast Cells % (Manual) Plasma Cell % (Manual) Other Cells % Nucleated RBC % Neutrophils # (Manual) Band Neutrophils # Total Absolute Neuts Lymphocytes # (Manual) Prolymphocyte # Reactive Lymphs # Total Abs Lymphocytes Monocytes # (Manual) Eosinophils # (Manual) Basophils # (Manual) Metamyelocytes # (Man) Myelocytes # (Manual) Promyelocytes # (Man) Blast Cells # (Man) Plasma Cell # (Manual) Other Cells # Nucleated RBCs # (Man) Hypersegmented Neuts Hyposegmented Neuts Hypogranular Neuts Large Granular Lymphs # Lrg Granular Lymphs Hairy Cells Smudge Cells Toxic Granulation Toxic Vacuolation Dohle Bodies Bernice Rods Platelet Estimate Hypogranular Platelets Giant Platelets Platelet Satelliting RBC Morphology Polychromasia Hypochromasia Poikilocytosis Basophilic Stippling Anisocytosis Microcytosis Macrocytosis Spherocytes Pappenheimer Bodies Sickle Cells Target Cells Tear Drop Cells Ovalocytes Stomatocytes [place] Bodies Echinocytes Acanthocytes (Spur) Rouleaux RBC Agglutinates Schistocytes Sezary Cell Sodium 137 (136-145) mmol/L Potassium 3.7 Chloride 103 (98-107) mmol/L Carbon Dioxide 29 (21-32) mmol/L Anion Gap 5 (3-11) BUN 26 H (6-23) mg/dl Creatinine 0.88 D (0.6-1.4) mg/dl Est Cr Clr Drug Dosing 65.7 ml/min Est GFR ( Amer) 90.1 ml/min Est GFR (Non-Af Amer) 77.8 ml/min BUN/Creatinine Ratio 29.5 H (10-20) Glucose 94 (70-99(Fasting)) mg/dl Calcium 8.0 L D (8.5-10.1) mg/dl Magnesium (1.7-2.4) mg/dl Total Bilirubin 0.5 (0.2-1.0) mg/dl AST 10 L ALT 11 (7-52) U/L Alkaline Phosphatase 67 (34-104) U/L Troponin I High Sens 837.7 H* (0-20) pg/ml Total Protein 5.5 L D (6.0-8.3) gm/dl Albumin 3.1 L (3.4-5.0) gm/dl Globulin 2.4 L (2.5-4.0) gm/dl Albumin/Globulin Ratio 1.3 (0.9-2) TSH (0.300-4.500) uIu/ml Urine Color Urine Appearance (Clear) Urine pH (4.5-7.5) Ur Specific [place] (1.000-1.030) Urine Protein (Negative) Urine Glucose (UA) (Negative) Urine Ketones (Negative) Urine Blood (Negative) Urine Nitrite (Negative) Urine Bilirubin (Negative) Urine Urobilinogen (Negative) Ur Leukocyte Esterase (Negative) SARS-CoV-2, RNA, NAAT (NEGATIVE) Blood Parasites ID Administered Medications Discontinued Medications Aspirin (Aspirin 81 Mg Chew) 324 mg PO NOW STA Stop: 11/05/22 16:45 Last Admin: 11/05/22 17:08 Dose: 324 mg Documented By: NA Diltiazem HCl (Diltiazem Hcl 180 Mg Capcr) 180 mg PO ONCE ONE Stop: 11/05/22 16:38 Last Admin: 11/05/22 17:08 Dose: 180 mg Documented By: RAYSHAWN Magnesium Sulfate/Dextrose (Magnesium Sulfate / D5w) 1 gm in 100 mls @ 200 mls/hr IV Q30M ROSE Stop: 11/05/22 15:59 Last Infusion: 11/05/22 16:06 Dose: 0 mls/hr Documented By: Admin: 11/05/22 15:27 Dose: 200 mls/hr Documented By: Infusion: 11/05/22 15:27 Dose: 0 mls/hr Documented By: Admin: 11/05/22 14:53 Dose: 200 mls/hr Documented By: STANTON Ioversol (Optiray 320 500ml) 116 ml IV ONCE ONE Stop: 11/05/22 14:11 Last Admin: 11/05/22 14:04 Dose: 116 ml Documented By: [facility] Imaging Data Radiologist's Impression: Chest X-Ray 11/05/22 11:45 XR chest 1V portable CLINICAL HISTORY: cough, tachy TECHNIQUE: Single frontal radiograph of the chest was obtained. Comparison: Comparison is made to chest radiograph 10/14/2022 FINDINGS: No lines and tubes are seen. The cardiomediastinal silhouette is normal. Reticular interstitial opacities are seen. No evidence of pleural effusion or pneumothorax. IMPRESSION: No acute abnormalities and in particular no evidence of pneumonia. Interstitial lung disease is again noted. ACT 112: Negative or not required by law. Electronically signed by: Henry Ellsworth M.D. 11/05/2022 12:34 PM Chest CTA 11/05/22 13:44 CT angio chest PE protocol CLINICAL HISTORY: PE, tachy, CP TECHNIQUE: Multidetector row helical CT of the chest was performed with angiographic protocol. Coronal and sagittal reformations were obtained. Coronal and sagittal MIPS were obtained from the axial data set and were submitted for review. Automated dose lowering techniques and/or adjustment according to patient size were utilized for this exam. CT DOSE: 559.25 mGy.cm Comparison: Comparison is made to CT chest 10/04/2022 FINDINGS: Lungs and pleura: Bronchiectasis, bronchial wall thickening and emphysema are seen. Heart and pericardium: Heart size is normal. No pericardial effusion. Vessels: No evidence of pulmonary embolism. The pulmonary trunk measures 34 mm in diameter. Mediastinum and marsha: Subcentimeter lymph nodes are seen. Chest wall and lower neck: Unremarkable. Abdomen: Unremarkable. Bones: Degenerative changes in the thoracic spine. IMPRESSION: 1. No pulmonary embolus is seen. 2. Bronchiectasis and emphysema are unchanged from prior exam. ACT 112: Negative or not required by law. Electronically signed by: Henry Ellsworth M.D. 11/05/2022 2:27 PM Discharge Plan Visit Data Chief Complaint: Referred by Doctor Stated Complaint: REFERRED BY PCP, CARDIAC ASSESSMENT ED Provider: Shaggy Cooper Discharge Problem: Chest pain, REID (dyspnea on exertion), Elevated troponin I level, Tachycardia, Light-headedness Patient Disposition: Being Evaluated by Hospitalist Forms Stand Alone Forms: My [facility] [employer] Prescriptions Prescriptions: No Action furosemide 40 mg tablet 80 mg PO DAILY Qty: 180 3RF promethazine-DM 6.25-15 mg/5 mL syrup 5 ml PO Q6H PRN (Reason: cough) Qty: 473 0RF levothyroxine 150 mcg tablet 150 mcg PO QAM Qty: 90 3RF potassium chloride 20 mEq tablet,ER particles/crystals 40 meq PO 3XWK Qty: 72 3RF Rx Instructions: take 40mEq on Thursday, Thursday, Thursday diltiazem HCl [Tiazac] 180 mg capsule,extended release 24 hr 180 mg PO QAM 90 Days Qty: 90 3RF Trelegy Ellipta 100-62.5-25 mcg blister with device 1 inh INH QAM Qty: 3 3RF diclofenac sodium 1 % gel 2 g topical QID Rx Instructions: apply to single elbow, wrist or hand; for hand includes palm/fingers/back of hand magnesium 250 mg Tablet 250 mg PO 3XWK Rx Instructions: Thursday,Thursday,Thursday cholecalciferol (vitamin D3) 1,000 unit (25 mcg) tablet 1,000 units PO QAM multivitamin Tablet 1 tab PO QAM acetaminophen [Tylenol Extra Strength] 500 mg Tablet 1,000 mg PO Q6 PRN (Reason: Pain) ipratropium-albuterol 0.5 mg-3 mg(2.5 mg base)/3 mL Solution For Nebulization 3 ml NEB Q6H PRN (Reason: cough/wheeze/dyspnea) Qty: 1 0RF sennosides [Senokot] 8.6 mg Tablet 8.6 mg PO QAM Qty: 30 0RF pantoprazole 40 mg Tablet,Delayed Release (Dr/Ec) 40 mg PO DAILY Qty: 30 2RF albuterol sulfate [Ventolin HFA] 90 mcg/actuation HFA aerosol inhaler 2 puff inhalation Q6H Qty: 8.5 5RF oxycodone 5 mg Tablet 2.5 mg PO Q4H PRN (Reason: Pain) Qty: 30 0RF omeprazole 40 mg capsule,delayed release(DR/EC) 40 mg PO DAILY metolazone 5 mg tablet 5 mg PO Q OTHER DAY Rx Instructions: take 30 min before lasix Referrals Referrals: Tyler Hawkins MD [Primary Care Provider] -
--- NOTE | 2022-11-05 12:36 | XRay Report ---
XR chest 1V portable CLINICAL HISTORY: cough, tachy TECHNIQUE: Single frontal radiograph of the chest was obtained. Comparison: Comparison is made to chest radiograph 10/14/2022 FINDINGS: No lines and tubes are seen. The cardiomediastinal silhouette is normal. Reticular interstitial opaci ties are seen. No evidence of pleural effusion or pneumothorax. IMPRESSION: No acute abnormalities and in particular no evidence of pneumonia. Interstitial lung disease is again noted. ACT 112: Negative or not required by law. Electronically signed by: Henry Ellsworth M.D. 11/05/2022 12:34 PM
--- NOTE | 2022-11-05 12:45 | Electrocardiogram Report ---
Test Reason : Blood Pressure : / mmHG Vent. Rate : 107 BPM Atrial Rate : 107 BPM P-R Int : 124 ms QRS Dur : 072 ms QT Int : 338 ms P-R-T Axes : 055 -36 032 degrees QTc Int : 451 ms Sinus tachycardia with Premature atrial complexes Left axis deviation Minimal voltage criteria for LVH, may be normal variant Poor R wave progression, consider anterior UT vs. lead placement vs. LVH Abnormal ECG When compared with ECG of 14-OCT-2022 13:31, No significant change was found Confirmed by Stas Patton ([id number]) on 11/05/2022 12:44:57 PM Referred By: Tyler Hawkins Confirmed By:Yefri Patton
[2022-11-05 13:06] LABS: Alanine Aminotransferase 9 U/L (7-52); Albumin Globulin Ratio 1.3 (0.9-2); Albumin Level 2.5 gm/dl (3.4-5.0); Alkaline Phosphatase 46 U/L (34-104); Anion Gap 3 (3-11); BUN Creatinine Ratio 31.6 (10-20); Bilirubin,Total 0.5 mg/dl (0.2-1.0); Blood Urea Nitrogen 18 mg/dl (6-23); Calcium 5.9 mg/dl (8.5-10.1); Carbon Dioxide 21 mmol/L (21-32); Chloride 119 mmol/L (98-107); Creatinine Clr Calc Pharmacy 101.4 ml/min; Est GFR (African American) 107.8 ml/min; Glucose 51 mg/dl (70-99(Fasting)); Magnesium 1.5 mg/dl (1.7-2.4); Sodium 143 mmol/L (136-145); Total Protein 4.5 gm/dl (6.0-8.3); Troponin I High Sensitivity 834.1 pg/ml (0-20)
[2022-11-05 13:25] LABS: Basophils # (auto) 0.02 K/uL (0-0.2); Basophils % (auto) 0.1 %; Eosinophils # (auto) 0.02 K/uL (0-0.50); Eosinophils % (auto) 0.1 %; Hematocrit (blood only) 42.6 % (42.0-52.0); Hemoglobin 13.8 g/dl (14.0-18.0); Immature Granulocytes # (auto) 0.31 K/uL (0.01-0.20); Immature Granulocytes % (auto) 1.8 %; Lymphocytes # (auto) 0.75 K/uL (1.2-3.4); Lymphocytes % (auto) 4.4 %; Mean Corpuscular Hemoglobin 27.9 pg (25.0-34.0); Mean Corpuscular Hgb Conc 32.4 g/dL (32.0-36.0); Mean Corpuscular Volume 86.1 fL (80.0-100.0); Mean Platelet Volume 11.4 fL (9.4-12.4); Monocytes # (auto) 1.19 K/uL (0.11-0.59); Neutrophils # (auto) 14.77 K/uL (1.40-6.50); Neutrophils % (auto) 86.6 %; Platelet Count 223 K/uL (130-400); RDW Coefficient of Variation 14.9 % (11.5-14.5); RDW Standard Deviation 46.7 fL (36.4-46.3); Red Blood Count 4.95 M/uL (4.70-6.10); White Blood Count 17.06 K/ul (4.8-10.8)
[2022-11-05] MEDS ORDERED: OPTIRAY 320 500ml IV ONE (14:10)
--- NOTE | 2022-11-05 14:28 | CT Scan Report ---
CT angio chest PE protocol CLINICAL HISTORY: PE, tachy, CP TECHNIQUE: Multidetector row helical CT of the chest was performed with angiographic protocol. Hayden l and sagittal reformations were obtained. Coronal and sagittal MIPS were obtained from the axial ruslan a set and were submitted for review. Automated dose lowering techniques and/or adjustment according to patient size were utilized for this exam. CT DOSE: 559.25 mGy.cm Comparison: Comparison is made to CT chest 10/04/2022 FINDINGS: Lungs and pleura: Bronchiectasis, bronchial wall thickening and emphysema are seen. Heart and pericardium: Heart size is normal. No pericardial effusion. Vessels: No evidence of pulmonary embolism. The pulmonary trunk measures 34 mm in diameter. Mediastinum and marsha: Subcentimeter lymph nodes are seen. Chest wall and lower neck: Unremarkable. Abdomen: Unremarkable. Bones: Degenerative changes in the thoracic spine. IMPRESSION: 1. No pulmonary embolus is seen. 2. Bronchiectasis and emphysema are unchanged from prior exam. ACT 112: Negative or not required by law. Electronically signed by: Henry Ellsworth M.D. 11/05/2022 2:27 PM
[2022-11-05] MEDS: MAGNESIUM SULFATE / D5W 1 GM/100 ML BAG IV SCH ×2 (14:53→15:27)
[2022-11-05 15:13] LABS: Albumin Globulin Ratio 1.3 (0.9-2); Albumin Level 3.1 gm/dl (3.4-5.0); BUN Creatinine Ratio 29.5 (10-20); Bilirubin,Total 0.5 mg/dl (0.2-1.0); Creatinine Clr Calc Pharmacy 65.7 ml/min; Est GFR (African American) 90.1 ml/min; Est GFR (Non-African American) 77.8 ml/min; Globulin 2.4 gm/dl (2.5-4.0); Potassium 3.7 mmol/L (3.5-5.1); Total Protein 5.5 gm/dl (6.0-8.3)
[2022-11-05 15:18] LABS: Troponin I High Sensitivity 837.7 pg/ml (0-20)
[2022-11-05] MEDS ORDERED: dilTIAZem HCL 180 MG CAPCR PO ONE (16:37)
[2022-11-05] MEDS ORDERED: ASPIRIN 81 MG CHEW PO STA (16:44)
--- NOTE | 2022-11-05 17:37 | History & Physical Report ---
Date of Service November 05, 2022 Assessment & Plan (1) Generalized weakness: Plan: Low suspicion of new acute pathology. Suspect this tachycardia in the emergency room is due to not taking his diltiazem this morning. Most likely just needing more acute rehabilitation prior to returning back home +/- increased allergens at his house although he is currently denying worsening shortness of breath or cough. Elevated white blood count with left shift appears to occur frequently in his past without acute pathology and suspect is more related to his chronic bronchiectasis -however for further work-up will take blood cultures, sputum culture (given recent Pseudomonas aeruginosa on sputum) (2) Sinus tachycardia: Plan: Current tachycardia due to missing diltiazem today in setting of usual tachyca rdia also noticed during last admission Continue diltiazem ER 180mg PO daily (3) Elevated troponin I level: Plan: Appears to have a chronic elevation in his troponin not related to ACS or myocarditis Suspect acutely worse due to tachycardia from not using his diltiazem Will repeat in AM to check returning back to his prior levels (4) Bronchiectasis: Plan: Sputum culture to make sure he has cleared previous pseudomonas treated last admission (5) Chronic obstructive pulmonary disease: Plan: Wheezing on exam but no worsening shortness of breath or cough and chronic wheezing noted on prior pulmonology notes. Continue Anoro Ellipta (6) Hypothyroidism (acquired): Plan: TSH 1.414 Continue levothyroxine 150 mcg PO daily (7) Bilateral leg edema: Plan: Diastolic HF noted on previous notes however he has been seen by the heart failure clinic and determined not to have this. Suspected more lymphedema, low albumin, cor pulmonale and reduced mobility which is less likely to respond to diuretics likely leading worsening renal function while on these. Will continue his usual dose of furosemide 80mg PO daily as appears to be stable on this. (8) Leukocytosis: Plan VTE Prophylaxis - deferred on admission given likely short length of stay Diet - heart healthy Disposition - observation status to med/tele Admission and Anticipated Discharge Date Admission Date: Nov 05, 2022 History of Present Illness Chief Complaint: Generalized weakness Primary Care Provider: Tyler Hawkins MD Isma Wesley is an 87-year-old male who presents to the ER after home health nurse yesterday noted to have an irregular heart rate and his primary care physician recommended that he come to the ER for evaluation today. He was recently discharged from [facility] for acute rehabilitation just three days ago and since he has been getting progressively weak at home which he puts down to less ability to use his walked on his carpet at home although his son and [id number] feel he has declined more than this. He has bilateral leg edema which she feels is similar to his baseline. He was restarted on Lasix after pausing due a creatinine bump as last admission. It appears this caused a creatinine bump to 1.98 while at [facility] with a potassium decreased to 2.2. He reports his Lasix was held at that time as well but continued on discharge. He has not restarted on the metolazone. He reports no falls since going home. He denies any fevers, chills, worsening shortness of breath, cough, abdominal pain, diarrhea, constipation, nasal congestion, sinus pain. He was recently admitted from October 04 to October 17, 2022 due to vasovagal syncopal events at home. His troponins were elevated during this admission and he was evaluated by cardiology and not felt to be acute coronary syndrome at that time and echocardiogram showed no wall motion abnormalities. He was also noted to have a sinus tachycardia suspected due to increased cardiac output in the setting of chronic medical conditions such as COPD/bronchiectasis and use of bronchodilators. In the ER main concern was on ambulation for generalized weakness, lightheadedness and tachycardia exertion. He was therefore referred to medicine for admission and ongoing management. Allergies Allergy/AdvReac Type Severity Reaction Status Date / Time clarithromycin Allergy Intermediate RASH Verified 10/23/22 13:42 Home Medications Medication Instructions Recorded Confirmed Type magnesium 250 mg tablet 250 mg PO 3XWK 08/02/18 11/05/22 History cholecalciferol (vitamin D3) 25 1,000 units PO QAM 05/30/19 11/05/22 History mcg (1,000 unit) tablet multivitamin 1 tab PO QAM 09/04/20 11/05/22 History acetaminophen 500 mg tablet 1,000 mg PO Q6 PRN Pain 03/25/21 11/05/22 History (Tylenol Extra Strength) furosemide 40 mg tablet 80 mg PO DAILY #180 tabs 07/16/21 11/05/22 Rx promethazine-DM 6.25 mg-15 mg/5 mL 5 ml PO Q6H PRN cough #473 mL 09/24/21 11/05/22 Rx oral syrup levothyroxine 150 mcg tablet 150 mcg PO QAM #90 tabs 02/03/22 11/05/22 Rx potassium chloride 20 mEq 40 meq PO 3XWK #72 tabs 03/25/22 11/05/22 Rx tablet,extended release(part/cryst) diltiazem HCl 180 mg capsule,24 180 mg PO QAM 90 days #90 caps 04/22/22 11/05/22 Rx hr,extended release (Tiazac) fluticasone fur. 100 mcg-umeclid 1 inh inhalation QAM #3 Inhalers 08/26/22 11/05/22 Rx 62.5 mcg-vilant 25 mcg inhalat.powder (Trelegy Ellipta) albuterol sulfate 90 mcg/actuation 2 puff inhalation Q6H #8.5 grams 10/17/22 11/05/22 Rx aerosol inhaler (Ventolin HFA) ipratropium 0.5 mg-albuterol 3 mg 3 ml NEB Q6H PRN 10/17/22 11/05/22 Rx (2.5 mg base)/3 mL nebulization cough/wheeze/dyspnea #1 box soln oxycodone 5 mg tablet 2.5 mg PO Q4H PRN Pain #30 tabs 10/17/22 11/05/22 Rx pantoprazole 40 mg tablet,delayed 40 mg PO DAILY #30 tabs 10/17/22 11/05/22 Rx release sennosides 8.6 mg tablet (Senokot) 8.6 mg PO QAM #30 tabs 10/17/22 11/05/22 Rx diclofenac sodium 1 % topical gel 2 g topical QID 10/23/22 11/05/22 History metolazone 5 mg tablet 5 mg PO Q OTHER DAY 11/05/22 11/05/22 History omeprazole 40 mg capsule,delayed 40 mg PO DAILY 11/05/22 11/05/22 History release Past Med/Surg History Medical History (Updated 11/06/22 @ 07:57 by Uday Wu MD) Acute and chronic respiratory failure Acute on chronic diastolic (congestive) heart failure Acute on chronic diastolic (congestive) heart failure Acute on chronic kidney failure Avulsion injury of right elbow region Back problem BPH (benign prostatic hyperplasia) Candidal diaper rash Cellulitis Cellulitis Cellulitis Cellulitis of both lower extremities Cellulitis of left leg Cellulitis of left lower extremity CHI (closed head injury) Chronic obstructive pulmonary disease Chronic respiratory failure with hypoxia Contusion of elbow Contusion of face COPD (chronic obstructive pulmonary disease) Early satiety Elevated troponin Fluid retention in legs GERD (gastroesophageal reflux disease) Hematoma of right lower extremity History of bronchitis History of cellulitis Hypernatremia Hypertension Hypothyroidism Hypothyroidism (acquired) Left lumbar radiculopathy Leg length discrepancy Livedo reticularis Lumbar spinal stenosis Lymphedema MRSA (methicillin resistant Staphylococcus aureus) On home oxygen therapy 02 2LPM AT HS PRISCILA (obstructive sleep apnea) Osteoarthritis Osteoporosis, unspecified Personal history of MRSA (methicillin resistant Staphylococcus aureus) Pulmonary edema Pulmonary nodule Sepsis Sepsis Skin tear Sleep apnea cpap Spinal stenosis Syncope Urethral stricture Vitamin D deficiency Surgical History History of cardiac cath 12/2019 - [place] - increased edema - no stents/angioplasty History of cholecystectomy History of colonoscopy History of herniorrhaphy left inguinal History of partial knee replacement left History of tonsillectomy History of tooth extraction Hx of surgical procedure LEFT FEMUR FX WITH REPAIR Family History Mother Cerebral atherosclerosis Father Diverticulosis Other No significant family history Denies family history of Ovarian cancer Prostate cancer Myocardial infarction Breast cancer Colorectal cancer Social History Smoking Status: Never smoker Tobacco Type: Cigarettes Age Started Using Tobacco: 22; packs per day: 1; Cigarettes Per Day: 20; Second Hand Exposure: No; Hx Alcohol Use: No Hx Substance Use: Yes Last Used Substance: Unknown Last Used Substance Other:: medical marijuana for back pain Preferred Language: Armenian Communication Ability: Effective Visual Impairment: No Limitations Hearing Ability: Normal Hat Liner Required: No Beliefs That Will Affect Care: None marital status: Current Living Situation: Spouse current occupational status: retired Other Information That Helps Us Care for You: No Feels Safe at Home: Yes Safety Concerns: Feels Safe At This Time Dental Care, Regularly: No Physical Activity Frequency: 1-2 Times per Week Seatbelt Use: always Sunscreen Use: Yes Assistive Devices: Cane, Denture - Upper, Denture - Lower, Glasses, Oxygen - at Night and Walker Review of Systems Review of Systems: All systems reviewed & are unremarkable except as noted in HPI & below Physical Exam Constitutional: WD/WN, vitals as above Eyes: PERRL, conjunctivae normal, anicteric sclerae ENMT: external ear and nose normal, oropharynx normal Respiratory: normal respiratory effort Auscultation: + wheezes (mild end expiratory throughout); breath sounds present, no diminished lung sounds, no crackles, no rales and no rhonchi Cardiovascular: RRR, no murmur, no edema Gastrointestinal (Abdomen): normal bowel sounds, soft, nontender, no hepatosplenomegaly Musculoskeletal: no cyanosis or clubbing, extremities motor strength 5/5 Skin: no rashes, warm and dry Neurologic: moves all extremities and awake; no focal motor deficits (no lateralizing deficit) and not confused Psychiatric: A+Ox3, euthymic affect Results & Data Results & Data ([facility]) Vital Signs (Past 12 Hours) Vital Signs Temp Pulse Resp BP Pulse Ox O2 Del Method 11/05/22 17:30 109 H 37 H 96 11/05/22 17:20 131 H 21 100 11/05/22 17:10 160 H 22 93 11/05/22 17:00 119 H 31 H 97 11/05/22 16:50 106 H 21 97 11/05/22 16:40 119 H 27 H 98 11/05/22 16:30 120 H 23 99 11/05/22 16:20 108 H 17 98 11/05/22 16:10 94 H 16 97 11/05/22 16:00 100 H 21 98 Room Air 11/05/22 16:00 164/97 H 11/05/22 15:50 132 H 24 96 Room Air 11/05/22 15:40 98 H 16 97 Room Air 11/05/22 15:30 100 H 18 99 Room Air 11/05/22 17:04 110 H 11/05/22 15:30 155/89 H 11/05/22 15:29 106 H 16 98 Room Air 11/05/22 15:20 103 H 17 96 Room Air 11/05/22 15:10 100 H 15 98 Room Air 11/05/22 15:00 107 H 17 99 11/05/22 15:00 136/101 H 11/05/22 14:50 131 H 20 96 11/05/22 14:40 115 H 16 97 11/05/22 14:30 113 H 19 99 11/05/22 14:30 152/80 H 11/05/22 14:20 27 H 95 Room Air 11/05/22 14:12 112 H 21 11/05/22 14:12 134/100 11/05/22 13:50 118 H 19 170/122 H 93 11/05/22 13:40 141 H 20 92 11/05/22 13:30 113 H 19 11/05/22 13:20 114 H 19 92 11/05/22 13:10 138 H 15 92 11/05/22 13:01 131 H 19 11/05/22 13:01 170/122 H 11/05/22 13:00 118 H 24 84 L 11/05/22 12:50 104 H 16 95 11/05/22 12:40 104 H 18 11/05/22 12:30 101 H 20 92 11/05/22 12:30 156/100 H 11/05/22 12:20 122 H 18 11/05/22 12:10 111 H 15 93 11/05/22 12:01 125 H 17 96 11/05/22 12:01 152/88 H 11/05/22 12:00 106 H 26 H 94 11/05/22 11:50 132 H 22 11/05/22 11:41 122 H 17 11/05/22 12:51 117 H 11/05/22 11:47 36.8 C 104 H 17 115/81 95 Room Air Laboratory Results Abnormal lab results 11/05/22 11/05/22 11/05/22 Range/Units 12:07 12:53 14:12 WBC 17.06 H (4.8-10.8) K/ul Hgb 13.8 L (14.0-18.0) g/dl RDW Std Deviation 46.7 H (36.4-46.3) fL RDW Coeff of [place] 14.9 H (11.5-14.5) % Neut # (Auto) 14.77 H (1.40-6.50) K/uL Lymph # (Auto) 0.75 L (1.2-3.4) K/uL [place] # (Auto) 1.19 H (0.11-0.59) K/uL Immature Gran # (Auto) 0.31 H (0.01-0.20) K/uL Chloride 119 H (98-107) mmol/L BUN 26 H (6-23) mg/dl Creatinine 0.57 L (0.6-1.4) mg/dl BUN/Creatinine Ratio 31.6 H 29.5 H (10-20) Glucose 51 L* (70-99(Fasting)) mg/dl Calcium 5.9 L* 8.0 L D (8.5-10.1) mg/dl Magnesium 1.5 L (1.7-2.4) mg/dl AST 10 L (13-39) U/L Troponin I High Sens 834.1 H* 837.7 H* (0-20) pg/ml Total Protein 4.5 L 5.5 L D (6.0-8.3) gm/dl Albumin 2.5 L 3.1 L (3.4-5.0) gm/dl Globulin 2.0 L 2.4 L (2.5-4.0) gm/dl Diagnostic Findings XR chest 1V portable CLINICAL HISTORY: cough, tachy TECHNIQUE: Single frontal radiograph of the chest was obtained. Comparison: Comparison is made to chest radiograph 10/14/2022 FINDINGS: No lines and tubes are seen. The cardiomediastinal silhouette is normal. Reticular interstitial opacities are seen. No evidence of pleural effusion or pneumothorax. IMPRESSION: No acute abnormalities and in particular no evidence of pneumonia. Interstitial lung disease is again noted. CT angio chest PE protocol CLINICAL HISTORY: PE, tachy, CP TECHNIQUE: Multidetector row helical CT of the chest was performed with angiographic protocol. Coronal and sagittal reformations were obtained. Coronal and sagittal MIPS were obtained from the axial data set and were submitted for review. Automated dose lowering techniques and/or adjustment according to patient size were utilized for this exam. CT DOSE: 559.25 mGy.cm Comparison: Comparison is made to CT chest 10/04/2022 FINDINGS: Lungs and pleura: Bronchiectasis, bronchial wall thickening and emphysema are seen. Heart and pericardium: Heart size is normal. No pericardial effusion. Vessels: No evidence of pulmonary embolism. The pulmonary trunk measures 34 mm in diameter. Mediastinum and marsha: Subcentimeter lymph nodes are seen. Chest wall and lower neck: Unremarkable. Abdomen: Unremarkable. Bones: Degenerative changes in the thoracic spine. IMPRESSION: 1. No pulmonary embolus is seen. 2. Bronchiectasis and emphysema are unchanged from prior exam. Medications Administered ER medications given: Diltiazem 180 mg p.o. Aspirin 324 mg p.o. Magnesium sulfate 1 g IV x2 ECG Indication: SOB/dyspnea Rate (beats per minute): 107 Rhythm: sinus tachycardia Findings: + other (poor R wave progression) and + PAC Comparison ECG Date: from (Oct 14, 2022) Change: no significant change Code Status & VTE Plan Code Status Full VTE Prophylaxis Plan VTE Prophylaxis will be ordered: Yes PG Care Time/CCT Total # of Minutes Spent Total Time Spent with Patient: Total time spent is greater than 50% in coordination of care (as documented) at patient's floor/unit and/or counseling patient: Coding Level of Care Code 48951 INT INP/OBS CARE 2/55MIN Diagnoses Generalized weakness R53.1 Sinus tachycardia R00.0 Elevated troponin I level R77.8 Bronchiectasis J47.9 Chronic obstructive pulmonary disease J44.9 Hypothyroidism (acquired) E03.9 Bilateral leg edema R60.0 Leukocytosis D72.825 Leukocytosis type: bandemia (8) Leukocytosis Leukocytosis type: bandemia Qualified Code(s): D72.825 - Bandemia
[2022-11-05 20:47] LABS: C Reactive Protein 1.18 mg/dl (0-0.5)
[2022-11-05] MEDS ORDERED: NON-FORMULARY MEDICATION (Fluticasone-Umeclidin-Vilanter [Trelegy Ellipta] 100-62.5-25 mcg INH SCH (21:36)
[2022-11-05] MEDS: DICLOFENAC SOD 1% GEL 100 GM TUBE EXT SCH (22:36)
[2022-11-06] MEDS ORDERED: LEVALBUTEROL HCL 0.63 MG/3 ML NEB NEB PRN (01:32)
[2022-11-06] MEDS: LEVOTHYROXINE SODIUM 150 MCG TABLET PO SCH (06:11)
[2022-11-06] MEDS: FUROSEMIDE 80 MG TAB PO SCH (07:56)
[2022-11-06] MEDS: POTASSIUM CHLORIDE CRTAB 20 MEQ TABCR PO SCH (07:56)
[2022-11-06] MEDS: CHOLECALCIFEROL 1,000 UNITS 25 MCG TAB PO SCH (07:56)
[2022-11-06] MEDS: PANTOprazole 40 MG TAB PO SCH (07:57)
[2022-11-06] MEDS: dilTIAZem HCL 180 MG CAPCR PO SCH (07:57)
[2022-11-06] MEDS: SENNA 8.6 MG TAB PO SCH (07:57)
[2022-11-06] MEDS: FLUTICASONE FUROATE 100MCG 14 PUFFS/INHALER INH SCH (07:58)
[2022-11-06] MEDS: DICLOFENAC SOD 1% GEL 100 GM TUBE EXT SCH ×4 (07:58→21:54)
[2022-11-06] MEDS: UMECLIDINIUM/VILANTEROL 62.5/25MCG 7 PUFFS/INHALER INH SCH (07:58)
[2022-11-06 08:01] LABS: Basophils # (auto) 0.02 K/uL (0-0.2); Basophils % (auto) 0.1 %; Eosinophils # (auto) 0.03 K/uL (0-0.50); Eosinophils % (auto) 0.2 %; Hematocrit (blood only) 38.7 % (42.0-52.0); Hemoglobin 12.6 g/dl (14.0-18.0); Immature Granulocytes # (auto) 0.16 K/uL (0.01-0.20); Lymphocytes # (auto) 1.07 K/uL (1.2-3.4); Lymphocytes % (auto) 6.7 %; Mean Corpuscular Hemoglobin 27.5 pg (25.0-34.0); Mean Corpuscular Hgb Conc 32.6 g/dL (32.0-36.0); Mean Corpuscular Volume 84.5 fL (80.0-100.0); Mean Platelet Volume 11.8 fL (9.4-12.4); Monocytes # (auto) 1.03 K/uL (0.11-0.59); Monocytes % (auto) 6.4 %; Neutrophils # (auto) 13.74 K/uL (1.40-6.50); Neutrophils % (auto) 85.6 %; Platelet Count 221 K/uL (130-400); RDW Coefficient of Variation 14.9 % (11.5-14.5); RDW Standard Deviation 45.1 fL (36.4-46.3); Red Blood Count 4.58 M/uL (4.70-6.10); White Blood Count 16.05 K/ul (4.8-10.8)
[2022-11-06 08:26] LABS: Albumin Globulin Ratio 1.1 (0.9-2); Bilirubin,Total 0.9 mg/dl (0.2-1.0); Calcium 8.3 mg/dl (8.5-10.1); Creatinine Clr Calc Pharmacy 66.2 ml/min; Est GFR (African American) 90.1 ml/min; Est GFR (Non-African American) 77.8 ml/min; Globulin 2.7 gm/dl (2.5-4.0); Magnesium 2.4 mg/dl (1.7-2.4); Phosphorus 3.9 mg/dl (2.5-4.9); Potassium 3.8 mmol/L (3.5-5.1); Total Protein 5.7 gm/dl (6.0-8.3)
[2022-11-06 08:48] LABS: Troponin I High Sensitivity 817.5 pg/ml (0-20)
[2022-11-06] MEDS: ACETAMINOPHEN 325 MG TAB PO PRN ×2 (10:26→18:16)
[2022-11-06] MEDS ORDERED: VANCOMYCIN HCL 1,750 MG in SODIUM CHLORIDE 0.9% 500 ML IV ONE (10:59)
[2022-11-06] MEDS ORDERED: VANCOMYCIN CONSULT ACTIVE PRN (10:59)
[2022-11-06] MEDS ORDERED: PIPERACILLIN/TAZOBACTAM 3.375 GM (over 30 mins) IV ONE (11:15)
[2022-11-06] MEDS: LINEZOLID 600 MG TAB PO SCH ×2 (12:31→21:54)
--- NOTE | 2022-11-06 14:20 | Hospitalist Progress Note ---
Date of Service November 06, 2022 Assessment & Plan (1) Generalized weakness: Plan: Likely multifactorial, recently was in rehab after hopsitalization for PNA. I suspect he may still have some residual infection Although elevated wbc is non specific, however, he clinically looks weak, with shortness of breath Last sputum was positive for Pseudomonas, he completed a course of antibiotics. His MRSA nares is positive I will monitor cultures and start him emprirically on Zyvox to avoid the nephrotoxicity of vancomycin PT/OT (2) Sinus tachycardia: Plan: Now resolved, HR close to his baseline Continue diltiazem ER 180mg PO daily (3) Elevated troponin I level: Plan: Type 2 ME Appears to have a chronic elevation in his troponin not related to ACS or myocarditis Suspect acutely worse due to tachycardia from not using his diltiazem monitor (4) Bronchiectasis: Plan: Sputum culture to make sure he has cleared previous pseudomonas treated last admission MRSA nares was positive (5) Chronic obstructive pulmonary disease: Plan: Wheezing on exam but no worsening shortness of breath or cough and chronic wheezing noted on prior pulmonology notes. Continue Anoro Ellipta (6) Hypothyroidism (acquired): Plan: TSH 1.414 Continue levothyroxine 150 mcg PO daily (7) Bilateral leg edema: Plan: Diastolic HF noted on previous notes however he has been seen by the heart failure clinic and determined not to have this. Suspected more lymphedema, low albumin, cor pulmonale and reduced mobility which is less likely to respond to diuretics likely leading worsening renal function while on these. Will continue his usual dose of furosemide 80mg PO daily as appears to be stable on this. (8) Leukocytosis: Plan VTE Prophylaxis - deferred on admission given likely short length of stay Diet - heart healthy Disposition - observation status to med/tele Admission and Anticipated Discharge Date Admission Date: November 05, 2022 Subjective patient seen and examined, feels tired and still short of breath Review of Systems Review of Systems: All systems reviewed are negative, apart from the ones contained in the history. Physical Exam Physical Exam: The patient is awake, alert and oriented 3, well developed and well nourished, normocephalic and atraumatic, lying in bed and in no acute distress. HEENT--PERRL, EOMI, mucous membranes and oropharynx mildly dry Neck--supple. No JVD. No bruits. Thyroid normal, trachea midline, no adenopathy. Heart--normal S1 and S2. No murmurs, rubs or gallops. Lungs--reduced air entry on auscultation Abdomen--normal bowel sounds and soft. Mild epigastric and left sided abdominal pain Extremities--some leg edema Dermatologic--normal skin turgor, normal color, no abnormal lymph nodes, no rash. Neurologic--cranial nerves II through XII grossly intact. Rheumatologic--normal range of motion. Psychiatric--normal affect. Results & Data Results & Data ([facility]) Vital Signs (Past 12 Hours) Vital Signs Temp Pulse Pulse Resp BP BP Pulse Ox 11/06/22 07:15 80 11/06/22 09:54 11/06/22 07:57 98.1 F 107 H 16 142/98 H 95 11/06/22 03:41 98.2 F 97 H 18 138/82 93 O2 Del Method O2 Flow Rate 11/06/22 07:15 11/06/22 09:54 Room Air 11/06/22 07:57 Nasal Cannula 1 11/06/22 03:41 Nasal Cannula 1 PG Care Time/CCT Total # of Minutes Spent Total Time Spent with Patient: Total time spent is greater than 50% in coordination of care (as documented) at patient's floor/unit and/or counseling patient: Coding Level of Care Code 28728 SUB INP/OBS CARE 2/35MIN Diagnoses Generalized weakness R53.1 Sinus tachycardia R00.0 Elevated troponin I level R77.8 Bronchiectasis J47.9 Chronic obstructive pulmonary disease J44.9 Hypothyroidism (acquired) E03.9 Bilateral leg edema R60.0 Leukocytosis D72.825 Leukocytosis type: bandemia Time Spent (min) 35 (8) Leukocytosis Leukocytosis type: bandemia Qualified Code(s): D72.825 - Bandemia
[2022-11-06] MEDS: PIPERACILLIN/TAZOBACTAM 3.375 GM in DEXTROSE 5% 100 ML IV SCH (16:41)
[2022-11-07] MEDS: PIPERACILLIN/TAZOBACTAM 3.375 GM in DEXTROSE 5% 100 ML IV SCH ×2 (00:50→09:20)
[2022-11-07] MEDS: LEVOTHYROXINE SODIUM 150 MCG TABLET PO SCH (05:35)
[2022-11-07 07:15] LABS: BUN Creatinine Ratio 19.5 (10-20); Calcium 7.9 mg/dl (8.5-10.1); Creatinine Clr Calc Pharmacy 45.5 ml/min; Est GFR (African American) 58.3 ml/min; Est GFR (Non-African American) 50.3 ml/min; Potassium 3.8 mmol/L (3.5-5.1)
[2022-11-07 07:20] LABS: Hematocrit (blood only) 36.2 % (42.0-52.0); Hemoglobin 11.9 g/dl (14.0-18.0); Mean Corpuscular Hemoglobin 27.5 pg (25.0-34.0); Mean Corpuscular Hgb Conc 32.9 g/dL (32.0-36.0); Mean Corpuscular Volume 83.6 fL (80.0-100.0); Platelet Count 198 K/uL (130-400); RDW Coefficient of Variation 14.8 % (11.5-14.5); RDW Standard Deviation 45.5 fL (36.4-46.3); Red Blood Count 4.33 M/uL (4.70-6.10); White Blood Count 13.83 K/ul (4.8-10.8)
[2022-11-07] MEDS ORDERED: MAGNESIUM OXIDE 400 MG TAB PO SCH (09:00)
[2022-11-07] MEDS: POTASSIUM CHLORIDE CRTAB 20 MEQ TABCR PO SCH (09:15)
[2022-11-07] MEDS: SENNA 8.6 MG TAB PO SCH (09:15)
[2022-11-07] MEDS: FUROSEMIDE 80 MG TAB PO SCH (09:15)
[2022-11-07] MEDS: dilTIAZem HCL 180 MG CAPCR PO SCH (09:15)
[2022-11-07] MEDS: CHOLECALCIFEROL 1,000 UNITS 25 MCG TAB PO SCH (09:15)
[2022-11-07] MEDS: PANTOprazole 40 MG TAB PO SCH (09:15)
[2022-11-07] MEDS: LINEZOLID 600 MG TAB PO SCH (09:16)
[2022-11-07] MEDS: FLUTICASONE FUROATE 100MCG 14 PUFFS/INHALER INH SCH (09:16)
[2022-11-07] MEDS: UMECLIDINIUM/VILANTEROL 62.5/25MCG 7 PUFFS/INHALER INH SCH (09:16)
[2022-11-07] MEDS: ACETAMINOPHEN 325 MG TAB PO PRN (09:19)
--- NOTE | 2022-11-07 12:31 | Discharge Summary ---
Date of Service November 07, 2022 Admission HPI Per Admitting Provider Isma Wesley is an 87-year-old male who presents to the ER after home health nurse yesterday noted to have an irregular heart rate and his primary care physician recommended that he come to the ER for evaluation today. He was recently discharged from [facility] for acute rehabilitation just three days ago and since he has been getting progressively weak at home which he puts down to less ability to use his walked on his carpet at home although his son and [id number] feel he has declined more than this. He has bilateral leg edema which she feels is similar to his baseline. He was restarted on Lasix after pausing due a creatinine bump as last admission. It appears this caused a creatinine bump to 1.98 while at [facility] with a potassium decreased to 2.2. He reports his Lasix was held at that time as well but continued on discharge. He has not restarted on the metolazone. He reports no falls since going home. He denies any fevers, chills, worsening shortness of breath, cough, abdominal pain, diarrhea, constipation, nasal congestion, sinus pain. He was recently admitted from October 04 to October 17, 2022 due to vasovagal syncopal events at home. His troponins were elevated during this admission and he was evaluated by cardiology and not felt to be acute coronary syndrome at that time and echocardiogram showed no wall motion abnormalities. He was also noted to have a sinus tachycardia suspected due to increased cardiac output in the setting of chronic medical conditions such as COPD/bronchiectasis and use of bronchodilators. In the ER main concern was on ambulation for generalized weakness, lightheadedness and tachycardia exertion. He was therefore referred to medicine for admission and ongoing management. Principal Diagnosis weakness, pneumonia Discharge Exam The patient is awake, alert and oriented 3, well developed and well nourished, normocephalic and atraumatic, lying in bed and in no acute distress. HEENT--PERRL, EOMI, mucous membranes and oropharynx mildly dry Neck--supple. No JVD. No bruits. Thyroid normal, trachea midline, no adenopathy. Heart--normal S1 and S2. No murmurs, rubs or gallops. Lungs--reduced air entry on auscultation Abdomen--normal bowel sounds and soft. Mild epigastric and left sided abdominal pain Extremities--some leg edema Dermatologic--normal skin turgor, normal color, no abnormal lymph nodes, no rash. Neurologic--cranial nerves II through XII grossly intact. Rheumatologic--normal range of motion. Psychiatric--normal affect. Discharge Data Allergies Allergy/AdvReac Type Severity Reaction Status Date / Time clarithromycin Allergy Intermediate RASH Verified 10/23/22 13:42 Consultations 11/05/22 17:30 ED Decision to Admit Stat Ordered Studies 11/05/22 13:44 CT angio chest PE protocol Stat Hospital Course (1) Generalized weakness: Likely multifactorial, recently was in rehab after hopsitalization for PNA. I suspect he may still have some residual infection Although elevated wbc is non specific, however, he clinically looks weak, with shortness of breath Last sputum was positive for Pseudomonas, he completed a course of antibiotics. His MRSA nares is positive I will monitor cultures and start him emprirically on Zyvox to avoid the neph rotoxicity of vancomycin PT/OT (2) Sinus tachycardia: Now resolved, HR close to his baseline Continue diltiazem ER 180mg PO daily (3) Elevated troponin I level: Type 2 OR Appears to have a chronic elevation in his troponin not related to ACS or myocarditis Suspect acutely worse due to tachycardia from not using his diltiazem monitor (4) Bronchiectasis: Sputum culture to make sure he has cleared previous pseudomonas treated last admission MRSA nares was positive (5) Chronic obstructive pulmonary disease: Wheezing on exam but no worsening shortness of breath or cough and chronic wheezing noted on prior pulmonology notes. Continue Anoro Ellipta (6) Hypothyroidism (acquired): TSH 1.414 Continue levothyroxine 150 mcg PO daily (7) Bilateral leg edema: Diastolic HF noted on previous notes however he has been seen by the heart failure clinic and determined not to have this. Suspected more lymphedema, low albumin, cor pulmonale and reduced mobility which is less likely to respond to diuretics likely leading worsening renal function while on these. Will continue his usual dose of furosemide 80mg PO daily as appears to be stable on this. (8) Leukocytosis: Improving Plan VTE Prophylaxis - deferred on admission given likely short length of stay Diet - heart healthy Disposition - observation status to med/tele Total Time Total Time Spent Total Time Spent (In Minutes): 35 Discharge Plan Discharge Items Patient Disposition: Home - Self-Care Reason For Visit: GENERALIZED FATIGUE AND WEAKNESS Discharge Diagnosis: Weakness, Pneumonia Activity: Resume your previous activity Non-emergency contact: Primary Care Provider Call non-emergency contact if: you have any medication questions and your sym ptoms worsen Follow-up/Referrals: Tyler Hawkins MD [Primary Care Provider] - Diet: Regular Addtl Attending Provider Instructions: please make appointment to follow up with your regular PCP Pending Studies at Discharge: No Stand-Alone Forms: My Viki, Smoking Cessation Medications and DC Order Prescriptions: New linezolid 600 mg tablet 600 mg PO BID 5 Days Qty: 10 0RF Continued furosemide 40 mg tablet 80 mg PO DAILY Qty: 180 3RF promethazine-DM 6.25-15 mg/5 mL syrup 5 ml PO Q6H PRN (Reason: cough) Qty: 473 0RF levothyroxine 150 mcg tablet 150 mcg PO QAM Qty: 90 3RF potassium chloride 20 mEq tablet,ER particles/crystals 40 meq PO 3XWK Qty: 72 3RF Rx Instructions: take 40mEq on Thursday, Thursday, Thursday diltiazem HCl [Tiazac] 180 mg capsule,extended release 24 hr 180 mg PO QAM 90 Days Qty: 90 3RF Trelegy Ellipta 100-62.5-25 mcg blister with device 1 inh INH QAM Qty: 3 3RF diclofenac sodium 1 % gel 2 g topical QID Rx Instructions: apply to single elbow, wrist or hand; for hand includes palm/fingers/back of hand magnesium 250 mg Tablet 250 mg PO 3XWK Rx Instructions: Thursday,Thursday,Thursday cholecalciferol (vitamin D3) 1,000 unit (25 mcg) tablet 1,000 units PO QAM multivitamin Tablet 1 tab PO QAM acetaminophen [Tylenol Extra Strength] 500 mg Tablet 1,000 mg PO Q6 PRN (Reason: Pain) ipratropium-albuterol 0.5 mg-3 mg(2.5 mg base)/3 mL Solution For Nebulization 3 ml NEB Q6H PRN (Reason: cough/wheeze/dyspnea) Qty: 1 0RF sennosides [Senokot] 8.6 mg Tablet 8.6 mg PO QAM Qty: 30 0RF pantoprazole 40 mg Tablet,Delayed Release (Dr/Ec) 40 mg PO DAILY Qty: 30 2RF albuterol sulfate [Ventolin HFA] 90 mcg/actuation HFA aerosol inhaler 2 puff inhalation Q6H Qty: 8.5 5RF oxycodone 5 mg Tablet 2.5 mg PO Q4H PRN (Reason: Pain) Qty: 30 0RF omeprazole 40 mg capsule,delayed release(DR/EC) 40 mg PO DAILY metolazone 5 mg tablet 5 mg PO Q OTHER DAY Rx Instructions: take 30 min before lasix Discharge Orders: Discharge Order (Routine); Ordered 11/07/22 Ordered By: Te Bustillo Admission Data Admit Date/Time: 11/06/22 14:29 Attending Provider: Te Bustillo Admit Provider: Uday Wu Primary Care Provider: Tyler Hawkins Other Providers: Uday Wu ; [facility] Coding Level of Care Code HOSP INP/OBS DISCH >30 MIN Diagnoses Generalized weakness R53.1 Sinus tachycardia R00.0 Elevated troponin I level R77.8 Bronchiectasis J47.9 Chronic obstructive pulmonary disease J44.9 Hypothyroidism (acquired) E03.9 Bilateral leg edema R60.0 Leukocytosis D72.825 Leukocytosis type: bandemia Time Spent (min) 35
[2022-11-07] MEDS: DICLOFENAC SOD 1% GEL 100 GM TUBE EXT SCH (14:54)
== END 2022-11-07 15:40 | disposition home or self-care (01) | DRG 947 ==
LOC: ED 11:30 → 2W 11:30 → SUATTDRO 18:30 → 2W 20:30

== ENCOUNTER 2023-01-24 09:25 | Inpatient (IN) ==
[2023-01-24] MEDS ORDERED: SODIUM CHLORIDE 0.9% 1000ML 500 ML IV ONE (09:47)
[2023-01-24] MEDS ORDERED: LEVALBUTEROL 1.25 MG/3 ML NEB NEB STA (09:47)
[2023-01-24] MEDS ORDERED: CEFEPIME 2,000 MG/20 ML VIAL IV STA (09:51)
--- NOTE | 2023-01-24 10:06 | Emergency Department Note ---
Impression & Plan Sepsis, Pneumonia, Acute hypoxemic respiratory failure, URI (upper respiratory infection), Chronic indwelling Carrero catheter, Elevated troponin ED Provider Note ED Provider Note NAME: NICOLAS YU AGE:87 SEX: Male : 1935 ARRIVES VIA: EMS INFORMANT: Patient ED PROVIDER(s): Chery Pires DO CHIEF COMPLAINT: Unresponsive episode, trouble breathing HPI: This is an 87-year-old male presents emergency department via EMS due to an unresponsive episode and increased trouble breathing at home this morning. Per EMS patient was seated at the table when he slumped over and became unresponsive. No falls or injury. Patient had been noted to have increased trouble breathing additionally. On arrival here patient was 79% on room air, with increased tachypnea and adventitious lung sounds. Patient also noted by nursing staff to be tachycardic with an irregular rhythm and hypotensive. Patient denies any chest pain, palpitations, abdominal pain, headaches. He states he felt very weak and wobbly this morning. Patient states he is being treated by Dr. Burt of pulmonology for an ongoing lung infection and does take an antibiotic. Patient states he wears oxygen only at night and does use breathing treatments at home. PAST MEDICAL HISTORY:See Below PAST SURGICAL HISTORY:See Below FAMILY HISTORY:See Below SOCIAL HISTORY:See Below HOME MEDICATIONS:See Below ALLERGIES:See Below VITALS:See Below PHYSICAL EXAMINATION: GENERAL: alert, ill appearing, well nourished, no distress, non-toxic, Carrero catheter bag noted at bedside EYE EXAM: normal conjunctiva, PERRL and EOM's grossly intact OROPHARYNX: no exudate, no erythema, lips, buccal mucosa, and tongue normal and mucous membranes are moist NECK: supple, no nuchal rigidity, no adenopathy, non-tender LUNGS: Normal chest wall mechanics, no w/r, rhonchi noted b/l, increased WOB, patient on oxymask at 8 lpm HEART: no murmurs, S1 normal and S2 normal ABDOMEN: abdomen soft, non-tender, normo-active bowel sounds, no masses, no parrish ound or guarding. BACK: Back is symmetrical on inspection and there is no deformity, no midline tenderness, no CVA tenderness. SKIN: no rashes, petechiae, orbruising UPPER EXTREMITIES: upper extremities are grossly normal. FROM, nml pulses b/l. LOWER EXTREMITIES: No pitting edema. FROM, nml pulses b/l. NEURO EXAM: Normal sensorium, cranial nerves II-XII grossly intact, normal speech, no facial droop,nogross weakness of arms, no gross weakness of legs. Gross sensation intact. No ataxia. Vital Signs: reviewed and remarkable Differential Diagnosis: Sepsis, pneumonia, aspiration, syncope, dysrhythmia, UTI, pleural effusion, PE, CHF, ACS, ALFONSO, as well as others were considered MEDICAL DECISION MAKING: This is an ill-appearing 87-year-old male presents via EMS due to concern for increased weakness, unresponsive episode, difficulty breathing. Patient noted to be hypoxic on room air at 79%, hypotensive, and tachycardic with what appeared to be new onset atrial fibrillation. Patient does not typically wear oxygen during the day although does have significant pulmonary history. He was placed on an OxyMask, IV established, labs drawn and sent, EKG performed at bedside and interpreted by me, patient placed on telemetry. IV fluids started due to hypotension noted and concern for possible evolving sepsis. Chest x-ray performed at bedside and interpreted by me informally. Patient's blood pressure and heart rate did not proved with IV fluids. I did review the last cardiology note and despite extensive cardiac history additionally cannot find record of prior atrial fibrillation. Patient given empiric cefepime after cultures were drawn and sent. Patient does have an indwelling Carrero catheter, I suspect this is more likely the reason for the abnormal urinalysis. Patient did report feeling improved following nebulizer treatment here additionally. Patient did not have his morning medications which does include diltiazem which could be contributing to the elevated heart rate as well. Patient noted to have elevated troponin, I suspect this is secondary to the atrial fibrillation with RVR as well as the mild ALFONSO and accompanying infection. I do not suspect primary ACS. Case discussed with hospitalist for additional evaluation and management. Patient did receive a total of 30 ml/kg of IVF although slightly slower due to hx of CHF. Consultation(s): [] ER Treatment Provided: See below Diagnostics Interpreted By Me: -ECG: Atrial fibrillation at a rate of 150, leftward axis, normal QRS and QTc, nonspecific ST/T wave changes -Cardiac Monitoring: An order was placed for continuous cardiac monitoring. The monitor shows a rate of 142 with A-fib rhythm. -Laboratory studies: As stated above and show below. -Imaging studies: X-ray Chest: A single view study of the chest was reviewed and was negative for cardiomegaly, effusion, pulmonary edema, or wide mediastinum. Appearance of evolving infiltrate noted on the left. Triage Nursing Note Reviewed Prior/Outside Records Reviewed Critical Care: Critical care of 43 min performed to assess and manage high likelihood of life- threatening sepsis and, involving labs and imaging performed with assessment to evaluate sepsis and dysrhythmia diagnosis with frequent reassessment. This time includes bedside time, treatment discussions with patient/family/consultants, documentation time and excludes procedure time. Past Med/Surg History Medical History Acute and chronic respiratory failure Acute on chronic diastolic (congestive) heart failure Acute on chronic diastolic (congestive) heart failure Acute on chronic kidney failure Avulsion injury of right elbow region Back problem BPH (benign prostatic hyperplasia) Candidal diaper rash Cellulitis Cellulitis Cellulitis Cellulitis of both lower extremities Cellulitis of left leg Cellulitis of left lower extremity CHI (closed head injury) Chronic obstructive pulmonary disease Chronic respiratory failure with hypoxia Closed hip fracture Contusion of elbow Contusion of face COPD (chronic obstructive pulmonary disease) Early satiety Elevated troponin Fluid retention in legs GERD (gastroesophageal reflux disease) Hematoma of right lower extremity History of bronchitis History of cellulitis Hypernatremia Hypertension Hypothyroidism Hypothyroidism (acquired) Left lumbar radiculopathy Leg length discrepancy Livedo reticularis Lumbar spinal stenosis Lymphedema MRSA (methicillin resistant Staphylococcus aureus) On home oxygen therapy 02 2LPM AT HS PRISCILA (obstructive sleep apnea) Osteoarthritis Osteoporosis, unspecified Personal history of MRSA (methicillin resistant Staphylococcus aureus) Pulmonary edema Pulmonary nodule Sepsis Sepsis Skin tear Sleep apnea cpap Spinal stenosis Syncope Urethral stricture Vitamin D deficiency Surgical History History of cardiac cath 12/2019 - [place] - increased edema - no stents/angioplasty History of cholecystectomy History of colonoscopy History of herniorrhaphy left inguinal History of partial knee replacement left History of tonsillectomy History of tooth extraction Hx of surgical procedure LEFT FEMUR FX WITH REPAIR Family History Mother Cerebral atherosclerosis Father Diverticulosis Other No significant family history Denies family history of Ovarian cancer Prostate cancer Myocardial infarction Breast cancer Colorectal cancer Social History Smoking Status: Former smoker Tobacco Type: Cigarettes Age Started Using Tobacco: 22; packs per day: 1; Cigarettes Per Day: 20; Second Hand Exposure: No; Do You Dip or Chew Tobacco: No; Tobacco Cessation Education Requested by Patient: No Hx Alcohol Use: Yes Alcohol type: beer Hx Substance Use: Yes Last Used Substance: Unknown Last Used Substance Other:: medical marijuana Preferred Language: Spanish Communication Ability: Effective Visual Impairment: No Limitations Hearing Ability: Normal [employer] Super[employer] Required: No Beliefs That Will Affect Care: None marital status: Current Living Situation: Spouse current occupational status: retired Other Information That Helps Us Care for You: No Feels Safe at Home: Yes Safety Concerns: Feels Safe At This Time Dental Care, Regularly: No Physical Activity Frequency: 1-2 Times per Week Seatbelt Use: always Sunscreen Use: Yes Assistive Devices: CPAP, Denture - Upper, Denture - Lower, Glasses, Hearing Aid - Bilateral, Nebulizer, Oxygen - at Night and Walker Allergies Allergies Allergy/AdvReac Type Severity Reaction Status Date / Time clarithromycin Allergy Intermediate RASH Verified 01/22/23 11:11 Home Meds Home Medications Medication Instructions Recorded Confirmed magnesium 250 mg tablet 250 mg PO [id number] 08/02/18 01/24/23 cholecalciferol (vitamin D3) 25 1,000 units PO QAM 05/30/19 01/24/23 mcg (1,000 unit) tablet multivitamin 1 tab PO QAM 09/04/20 01/24/23 acetaminophen 500 mg tablet 1,000 mg PO Q6 PRN Pain 03/25/21 01/24/23 (Tylenol Extra Strength) diclofenac sodium 1 % topical gel 2 g topical QID 10/23/22 01/24/23 omeprazole 40 mg capsule,delayed 40 mg PO DAILY 11/05/22 01/24/23 release Oxygen Home 12/31/22 01/22/23 bumetanide 2 mg tablet 2 mg PO BID 12/31/22 01/24/23 sennosides 8.6 mg tablet (Senokot) 8.6 mg PO QAM 12/31/22 01/24/23 Previous Rx's Medication Instructions Recorded promethazine-DM 6.25 mg-15 mg/5 mL 5 ml PO Q6H PRN cough #473 mL 09/24/21 oral syrup levothyroxine 150 mcg tablet 150 mcg PO QAM #90 tabs 02/03/22 diltiazem HCl 180 mg capsule,24 180 mg PO QAM 90 days #90 caps 04/22/22 hr,extended release (Tiazac) fluticasone fur. 100 mcg-umeclid 1 inh inhalation QAM #3 Inhalers 08/26/22 62.5 mcg-vilant 25 mcg inhalat.powder (Trelegy Ellipta) albuterol sulfate 90 mcg/actuation 2 puff inhalation Q6H #8.5 grams 10/17/22 aerosol inhaler (Ventolin HFA) ipratropium 0.5 mg-albuterol 3 mg 3 ml NEB Q6H PRN 10/17/22 (2.5 mg base)/3 mL nebulization cough/wheeze/dyspnea #1 box soln mupirocin 2 % topical ointment 1 applic topical BID #22 grams 11/10/22 oxycodone 5 mg tablet 2.5 mg PO Q4H PRN Pain #30 tabs 11/20/22 tamsulosin 0.4 mg capsule 0.4 mg PO DAILY #30 caps 12/03/22 potassium chloride 20 mEq 20 meq PO DAILY #72 tabs 12/12/22 tablet,extended release(part/cryst) sodium chloride 3 % for 4 ml inhalation BID #120 mL 01/02/23 nebulization tobramycin 300 mg/5 mL in 0.225 % 300 mg (5 mL) inhalation BID 28 01/02/23 sodium chloride for nebulization days #280 mL (Josue) ciclopirox 8 % topical solution 1 applic topical DAILY #6.6 mL 01/15/23 finasteride 5 mg tablet 5 mg PO DAILY #30 tabs 01/21/23 Results & Data (ED) Vital Signs Vital Signs - 24 hr 01/24/23 09:35 01/24/23 09:37 01/24/23 09:47 Temperature 36.7 C Temperature Source Oral Pulse Rate 150 H 125 H Pulse Rate [Apical] Pulse Rhythm [Apical] Pulse Strength [Apical] Respiratory Rate 36 H Respiratory Effort / Characteristics Non-Labored Respiratory Depth Normal Respiratory Pattern Regular Blood Pressure 83/65 L Blood Pressure [Right Arm] Blood Pressure Mean 71 Blood Pressure Mean [Right Arm] Blood Pressure Position [Right Arm] Pulse Oximetry 79 L 99 Oxygen Delivery Method Room Air Oxymask Oxygen Flow Rate 8 Sepsis Recent Fever Within 48 Hours No Sepsis New/Unexplained Change in Mental Status No Sepsis Action Taken by Nursing Physician Notified Oxygen Flow Rate - Titration Pulse Oximetry Post Tiitration 01/24/23 09:45 01/24/23 10:00 01/24/23 10:30 Temperature Temperature Source Pulse Rate Pulse Rate [Apical] 119 H 140 H 132 H Pulse Rhythm [Apical] Pulse Strength [Apical] Respiratory Rate 30 H 30 H 29 H Respiratory Effort / Characteristics Spontaneous Non-Labored Spontaneous Spontaneous Respiratory Depth Normal Normal Normal Respiratory Pattern Blood Pressure Blood Pressure [Right Arm] 94/70 L 122/67 102/74 Blood Pressure Mean Blood Pressure Mean [Right Arm] 78 85 83 Blood Pressure Position [Right Arm] Pulse Oximetry 88 L 96 97 Oxygen Delivery Method Nasal Cannula Oxymask Room Air Oxygen Flow Rate 6 10 Sepsis Recent Fever Within 48 Hours Sepsis New/Unexplained Change in Mental Status Sepsis Action Taken by Nursing Oxygen Flow Rate - Titration Pulse Oximetry Post Tiitration 01/24/23 10:45 01/24/23 11:00 01/24/23 11:52 Temperature Temperature Source Pulse Rate Pulse Rate [Apical] 120 H 120 H Pulse Rhythm [Apical] Irregular Pulse Strength [Apical] Normal Respiratory Rate 25 H 18 Respiratory Effort / Characteristics Non-Labored Respiratory Depth Normal Normal Respiratory Pattern Regular Blood Pressure Blood Pressure [Right Arm] 122/67 133/73 Blood Pressure Mean Blood Pressure Mean [Right Arm] 85 93 Blood Pressure Position [Right Arm] Lying Pulse Oximetry 99 99 79 L Oxygen Delivery Method Oxymask Oxymask Oxymask Oxygen Flow Rate 10 0 Sepsis Recent Fever Within 48 Hours Sepsis New/Unexplained Change in Mental Status Sepsis Action Taken by Nursing Oxygen Flow Rate - Titration 7 Pulse Oximetry Post Tiitration 92 01/24/23 12:00 Temperature Temperature Source Pulse Rate Pulse Rate [Apical] 113 H Pulse Rhythm [Apical] Irregular Pulse Strength [Apical] Normal Respiratory Rate 22 Respiratory Effort / Characteristics Non-Labored Respiratory Depth Normal Respiratory Pattern Regular Blood Pressure Blood Pressure [Right Arm] 104/72 Blood Pressure Mean Blood Pressure Mean [Right Arm] 82 Blood Pressure Position [Right Arm] Lying Pulse Oximetry 95 Oxygen Delivery Method Oxymask Oxygen Flow Rate 7 Sepsis Recent Fever Within 48 Hours Sepsis New/Unexplained Change in Mental Status Sepsis Action Taken by Nursing Oxygen Flow Rate - Titration Pulse Oximetry Post Tiitration Laboratory Data 01/24/23 10:27 01/24/23 10:23 Lab Results 01/24/23 01/24/23 01/24/23 Range/Units 10:15 10:21 10:23 WBC (4.8-10.8) K/ul RBC (4.70-6.10) M/uL Hgb (14.0-18.0) g/dl Hct (42.0-52.0) % MCV (80.0-100.0) fL MCH (25.0-34.0) pg MCHC (32.0-36.0) g/dL RDW Std Deviation (36.4-46.3) fL RDW Coeff of Jordan (11.5-14.5) % Plt Count (130-400) K/uL MPV (9.4-12.4) fL Immature Gran % (Auto) % Neut % (Auto) % Lymph % (Auto) % [place] % (Auto) % Eos % (Auto) % Baso % (Auto) % Neut # (Auto) (1.40-6.50) K/uL Lymph # (Auto) (1.2-3.4) K/uL [place] # (Auto) (0.11-0.59) K/uL Eos # (Auto) (0-0.50) K/uL Baso # (Auto) (0-0.2) K/uL Immature Gran # (Auto) (0.01-0.20) K/uL ABG pH (7.35-7.45) ABG pCO2 (35-46) mmHg ABG pO2 (80-95) mmHg ABG HCO3 (19-24) mmol/L ABG O2 Saturation (90-95) % ABG Base Excess (-9-1.8) mEq/L Landon Test (Pos) Oxygen Given Sodium 140 (136-145) mmol/L Potassium 3.3 L (3.5-5.1) mmol/L Chloride 99 (98-107) mmol/L Carbon Dioxide 29 (21-32) mmol/L Anion Gap 12 H (3-11) BUN 22 (6-23) mg/dl Creatinine 1.60 H (0.6-1.4) mg/dl Est Cr Clr Drug Dosing 17.2 ml/min Est GFR ( Amer) 44.6 ml/min Est GFR (Non-Af Amer) 38.4 ml/min BUN/Creatinine Ratio 13.8 (10-20) Glucose 122 H (70-99(Fasting)) mg/dl Lactate 3.1 H* (0.4-2.0) mmol/L Calcium 8.7 (8.6-10.3) mg/dl Magnesium 2.0 (1.7-2.4) mg/dl Total Bilirubin 1.2 H (0.2-1.0) mg/dl Direct Bilirubin 0.2 (0-0.2) mg/dl AST 17 (13-39) U/L ALT 7 (7-52) U/L Alkaline Phosphatase 57 (34-104) U/L Troponin I High Sens 587.4 H* (0-20) pg/ml Total Protein 6.9 (6.0-8.3) gm/dl Albumin 3.2 L (3.4-5.0) gm/dl Procalcitonin (0-0.5) ng/ml Urine Color Dark Yellow Urine Appearance Turbid A (Clear) Urine pH 5.0 (4.5-7.5) Ur Specific [place] 1.014 (1.000-1.030) Urine Protein 3+ H (Negative) Urine Glucose (UA) Negative (Negative) Urine Ketones Negative (Negative) Urine Blood 3+ H (Negative) Urine Nitrite Negative (Negative) Urine Bilirubin Negative (Negative) Urine Urobilinogen Negative (Negative) Ur Leukocyte Esterase 3+ H (Negative) Urine WBC (Auto) >30 H (0-5) /hpf Urine RBC (Auto) >30 H (0-4) /hpf U Hyaline Cast (Auto) 1-5 (0-5) /lpf U Epithel Cells (Auto) >30 H (0-5) /lpf Urine Bacteria (Auto) 1+ H (Negative) Urine Mucus Present A (None Prsent) Urine Yeast Not Reportable Adenovirus (PCR) (NotDetected) B. pertussis DNA (PCR) (NotDetected) B.parapertussis DNA PCR (NotDetected) C. pneumoniae DNA (PCR) (NotDetected) Coronavirus OC43 (PCR) (NotDetected) Coronavirus HKU1 (PCR) (NotDetected) Coronavirus 229E (PCR) (NotDetected) SARS-CoV-2 (PCR) (NotDetected) Coronavirus NL63 (PCR) (NotDetected) Human Metapneumovir PCR (NotDetected) Influenza Type A (PCR) (NotDetected) Influenza Type B (PCR) (NotDetected) M. pneumoniae (PCR) (NotDetected) Parainfluenza 1 (PCR) (NotDetected) Parainfluenza 2 (PCR) (NotDetected) Parainfluenza 3 (PCR) (NotDetected) Parainfluenza 4 (PCR) (NotDetected) RSV (PCR) (NotDetected) Entero/Rhino (PCR) (NotDetected) 01/24/23 01/24/23 01/24/23 Range/Units 10:23 10:27 10:27 WBC 15.70 H (4.8-10.8) K/ul RBC 4.75 (4.70-6.10) M/uL Hgb 12.3 L (14.0-18.0) g/dl Hct 39.3 L (42.0-52.0) % MCV 82.7 (80.0-100.0) fL MCH 25.9 (25.0-34.0) pg MCHC 31.3 L (32.0-36.0) g/dL RDW Std Deviation 49.2 H (36.4-46.3) fL RDW Coeff of Jordan 16.5 H (11.5-14.5) % Plt Count 260 (130-400) K/uL MPV 11.9 (9.4-12.4) fL Immature Gran % (Auto) 2.4 % Neut % (Auto) 81.8 % Lymph % (Auto) 6.0 % [place] % (Auto) 9.1 % Eos % (Auto) 0.4 % Baso % (Auto) 0.3 % Neut # (Auto) 12.85 H (1.40-6.50) K/uL Lymph # (Auto) 0.94 L (1.2-3.4) K/uL [place] # (Auto) 1.43 H (0.11-0.59) K/uL Eos # (Auto) 0.06 (0-0.50) K/uL Baso # (Auto) 0.04 (0-0.2) K/uL Immature Gran # (Auto) 0.38 H (0.01-0.20) K/uL ABG pH 7.45 (7.35-7.45) ABG pCO2 44 (35-46) mmHg ABG pO2 89 (80-95) mmHg ABG HCO3 31 H (19-24) mmol/L ABG O2 Saturation 97.7 H (90-95) % ABG Base Excess 5.8 H (-9-1.8) mEq/L [place]andon Test Pos (Pos) Oxygen Given 11L Sodium (136-145) mmol/L Potassium (3.5-5.1) mmol/L Chloride (98-107) mmol/L Carbon Dioxide (21-32) mmol/L Anion Gap (3-11) BUN (6-23) mg/dl Creatinine (0.6-1.4) mg/dl Est Cr Clr Drug Dosing ml/min Est GFR ( Amer) ml/min Est GFR (Non-Af Amer) ml/min BUN/Creatinine Ratio (10-20) Glucose (70-99(Fasting)) mg/dl Lactate (0.4-2.0) mmol/L Calcium (8.6-10.3) mg/dl Magnesium (1.7-2.4) mg/dl Total Bilirubin (0.2-1.0) mg/dl Direct Bilirubin (0-0.2) mg/dl AST (13-39) U/L ALT (7-52) U/L Alkaline Phosphatase (34-104) U/L Troponin I High Sens (0-20) pg/ml Total Protein (6.0-8.3) gm/dl Albumin (3.4-5.0) gm/dl Procalcitonin 0.22 (0-0.5) ng/ml Urine Color Urine Appearance (Clear) Urine pH (4.5-7.5) Ur Specific [place] (1.000-1.030) Urine Protein (Negative) Urine Glucose (UA) (Negative) Urine Ketones (Negative) Urine Blood (Negative) Urine Nitrite (Negative) Urine Bilirubin (Negative) Urine Urobilinogen (Negative) Ur Leukocyte Esterase (Negative) Urine WBC (Auto) (0-5) /hpf Urine RBC (Auto) (0-4) /hpf U Hyaline Cast (Auto) (0-5) /lpf U Epithel Cells (Auto) (0-5) /lpf Urine Bacteria (Auto) (Negative) Urine Mucus (None Prsent) Urine Yeast Adenovirus (PCR) (NotDetected) B. pertussis DNA (PCR) (NotDetected) B.parapertussis DNA PCR (NotDetected) C. pneumoniae DNA (PCR) (NotDetected) Coronavirus OC43 (PCR) (NotDetected) Coronavirus HKU1 (PCR) (NotDetected) Coronavirus 229E (PCR) (NotDetected) SARS-CoV-2 (PCR) (NotDetected) Coronavirus NL63 (PCR) (NotDetected) Human Metapneumovir PCR (NotDetected) Influenza Type A (PCR) (NotDetected) Influenza Type B (PCR) (NotDetected) M. pneumoniae (PCR) (NotDetected) Parainfluenza 1 (PCR) (NotDetected) Parainfluenza 2 (PCR) (NotDetected) Parainfluenza 3 (PCR) (NotDetected) Parainfluenza 4 (PCR) (NotDetected) RSV (PCR) (NotDetected) Entero/Rhino (PCR) (NotDetected) 01/24/23 Range/Units 10:51 WBC (4.8-10.8) K/ul RBC (4.70-6.10) M/uL Hgb (14.0-18.0) g/dl Hct (42.0-52.0) % MCV (80.0-100.0) fL MCH (25.0-34.0) pg MCHC (32.0-36.0) g/dL RDW Std Deviation (36.4-46.3) fL RDW Coeff of Jordan (11.5-14.5) % Plt Count (130-400) K/uL MPV (9.4-12.4) fL Immature Gran % (Auto) % Neut % (Auto) % Lymph % (Auto) % [place] % (Auto) % Eos % (Auto) % Baso % (Auto) % Neut # (Auto) (1.40-6.50) K/uL Lymph # (Auto) (1.2-3.4) K/uL [place] # (Auto) (0.11-0.59) K/uL Eos # (Auto) (0-0.50) K/uL Baso # (Auto) (0-0.2) K/uL Immature Gran # (Auto) (0.01-0.20) K/uL ABG pH (7.35-7.45) ABG pCO2 (35-46) mmHg ABG pO2 (80-95) mmHg ABG HCO3 (19-24) mmol/L ABG O2 Saturation (90-95) % ABG Base Excess (-9-1.8) mEq/L [place] Test (Pos) Oxygen Given Sodium (136-145) mmol/L Potassium (3.5-5.1) mmol/L Chloride (98-107) mmol/L Carbon Dioxide (21-32) mmol/L Anion Gap (3-11) BUN (6-23) mg/dl Creatinine (0.6-1.4) mg/dl Est Cr Clr Drug Dosing ml/min Est GFR ( Amer) ml/min Est GFR (Non-Af Amer) ml/min BUN/Creatinine Ratio (10-20) Glucose (70-99(Fasting)) mg/dl Lactate (0.4-2.0) mmol/L Calcium (8.6-10.3) mg/dl Magnesium (1.7-2.4) mg/dl Total Bilirubin (0.2-1.0) mg/dl Direct Bilirubin (0-0.2) mg/dl AST (13-39) U/L ALT (7-52) U/L Alkaline Phosphatase (34-104) U/L Troponin I High Sens (0-20) pg/ml Total Protein (6.0-8.3) gm/dl Albumin (3.4-5.0) gm/dl Procalcitonin (0-0.5) ng/ml Urine Color Urine Appearance (Clear) Urine pH (4.5-7.5) Ur Specific [place] (1.000-1.030) Urine Protein (Negative) Urine Glucose (UA) (Negative) Urine Ketones (Negative) Urine Blood (Negative) Urine Nitrite (Negative) Urine Bilirubin (Negative) Urine Urobilinogen (Negative) Ur Leukocyte Esterase (Negative) Urine WBC (Auto) (0-5) /hpf Urine RBC (Auto) (0-4) /hpf U Hyaline Cast (Auto) (0-5) /lpf U Epithel Cells (Auto) (0-5) /lpf Urine Bacteria (Auto) (Negative) Urine Mucus (None Prsent) Urine Yeast Adenovirus (PCR) Not Detected (NotDetected) B. pertussis DNA (PCR) Not Detected (NotDetected) B.parapertussis DNA PCR Not Detected (NotDetected) C. pneumoniae DNA (PCR) Not Detected (NotDetected) Coronavirus OC43 (PCR) Not Detected (NotDetected) Coronavirus HKU1 (PCR) Not Detected (NotDetected) Coronavirus 229E (PCR) Not Detected (NotDetected) SARS-CoV-2 (PCR) Not Detected (NotDetected) Coronavirus NL63 (PCR) Not Detected (NotDetected) Human Metapneumovir PCR Not Detected (NotDetected) Influenza Type A (PCR) Not Detected (NotDetected) Influenza Type B (PCR) Not Detected (NotDetected) M. pneumoniae (PCR) Not Detected (NotDetected) Parainfluenza 1 (PCR) Not Detected (NotDetected) Parainfluenza 2 (PCR) Not Detected (NotDetected) Parainfluenza 3 (PCR) Not Detected (NotDetected) Parainfluenza 4 (PCR) Not Detected (NotDetected) RSV (PCR) Not Detected (NotDetected) Entero/Rhino (PCR) DETECTED A* (NotDetected) Administered Medications Sodium Chloride (Nss 1000ml) 1,000 mls @ 250 mls/hr IV .Q4H ROSE Stop: 02/23/23 10:14 Last Admin: 01/24/23 15:21 Dose: Not Given Documented By: Infusion: 01/24/23 14:50 Dose: 0 mls/hr Documented By: Infusion: 01/24/23 13:35 Dose: 250 mls/hr Documented By: Infusion: 01/24/23 13:30 Dose: 0 mls/hr Documented By: Admin: 01/24/23 12:09 Dose: 250 mls/hr Documented By: VIKI Heparin Sodium/Dextrose (Heparin Sodium/Dextrose) 25,000 units in 500 mls @ 18 mls/hr IV .Q24H [facility]; Protocol Stop: 02/23/23 14:29 Last Admin: 01/24/23 14:38 Dose: 900 units/hr, 18 mls/hr Documented By: MTP Co-signed By: CHRISTIANO Vancomycin HCl 2,000 mg/ (Sodium Chloride) 540 mls @ 200 mls/hr IV NOW ONE; Protocol Stop: 01/24/23 16:41 Last Admin: 01/24/23 14:25 Dose: 200 mls/hr Documented By: MTP Discontinued Medications Heparin Sodium (Porcine) (Heparin Sod (Porcine) 1000 Unit/Ml) 4,000 units IV NOW ONE Stop: 01/24/23 14:31 Last Admin: 01/24/23 15:25 Dose: 4,000 units Documented By: MTP Co-signed By: CHRISTIANO Heparin Sodium/Dextrose (Heparin Iv Adult Wt-Based Low-Dose With Bolus Protocol) 1 each IV Q15M [facility]; Protocol Stop: 01/24/23 14:31 Last Admin: 01/24/23 14:42 Dose: Not Given Documented By: Admin: 01/24/23 14:40 Dose: Not Given Documented By: Admin: 01/24/23 14:40 Dose: Not Given Documented By: CHRISTIANO Sodium Chloride (Nss 1000ml) 500 mls @ 999 mls/hr IV .Q31M ONE Stop: 01/24/23 10:17 Last Infusion: 01/24/23 10:44 Dose: 0 mls/hr Documented By: Admin: 01/24/23 10:06 Dose: 999 mls/hr Documented By: BRYCE Cefepime HCl (Maxipime) 2,000 mg in 20 mls @ 5 mls/min IV NOW STA; Protocol Stop: 01/24/23 09:54 Last Admin: 01/24/23 10:12 Dose: 5 mls/min Documented By: BRYCE Levalbuterol HCl (Levalbuterol 1.25 Mg/3 Ml Neb) 1.25 mg NEB NOW STA; Protocol Stop: 01/24/23 09:48 Last Admin: 01/24/23 10:04 Dose: 1.25 mg Documented By: Potassium Chloride (Potassium Chloride Crtab 20 Meq Tabcr) 40 meq PO NOW STA Stop: 01/24/23 12:52 Last Admin: 01/24/23 14:24 Dose: 40 meq Documented By: [facility] Imaging Data Radiologist's Impression: Chest X-Ray 01/24/23 09:47 XR chest 1V portable CLINICAL HISTORY: Sepsis TECHNIQUE: Single frontal radiograph of the chest was obtained. Comparison: Comparison is made to chest radiograph 12/31/2022 FINDINGS: No lines and tubes are seen. Calcified aortic knob is seen. Prominence and cephalization of the vasculature is seen. Airspace opacities are seen most prominently in the left midlung. No evidence of pleural effusion or pneumothorax. IMPRESSION: 1. Cardiomegaly and mild pulmonary edema. 2. Left midlung airspace opacity may represent atelectasis, pneumonia, and/or aspiration. ACT 112: Negative or not required by law. Electronically signed by: Henry Ellsworth M.D. 01/24/2023 10:06 AM Discharge Plan Visit Data Chief Complaint: Illness Stated Complaint: WEAKNESS, LETHARGIC, POSSIBLE SYNCOPE ED Provider: Chery Pires Discharge Problem: Sepsis, Pneumonia, Acute hypoxemic respiratory failure, URI (upper respiratory infection), Chronic indwelling Carrero catheter, Elevated troponin Patient Disposition: Admitted As Inpatient Discharge Instructions Interventions: ED Discharge Assessment Last Done: 01/24/23 12:46
[2023-01-24 10:35] LABS: Base Excess ABG 5.8 mEq/L (-9-1.8); HCO3 ABG 31 mmol/L (19-24); Oxygen Saturation ABG 97.7 % (90-95); PCO2 ABG 44 mmHg (35-46); PO2 ABG 89 mmHg (80-95); pH ABG 7.45 (7.35-7.45)
[2023-01-24 10:36] LABS: Allen Test Pos (Pos)
[2023-01-24 10:40] LABS: Basophils # (auto) 0.04 K/uL (0-0.2); Basophils % (auto) 0.3 %; Eosinophils # (auto) 0.06 K/uL (0-0.50); Eosinophils % (auto) 0.4 %; Hematocrit (blood only) 39.3 % (42.0-52.0); Hemoglobin 12.3 g/dl (14.0-18.0); Immature Granulocytes # (auto) 0.38 K/uL (0.01-0.20); Immature Granulocytes % (auto) 2.4 %; Lymphocytes # (auto) 0.94 K/uL (1.2-3.4); Mean Corpuscular Hemoglobin 25.9 pg (25.0-34.0); Mean Corpuscular Hgb Conc 31.3 g/dL (32.0-36.0); Mean Corpuscular Volume 82.7 fL (80.0-100.0); Mean Platelet Volume 11.9 fL (9.4-12.4); Monocytes # (auto) 1.43 K/uL (0.11-0.59); Monocytes % (auto) 9.1 %; Neutrophils # (auto) 12.85 K/uL (1.40-6.50); Neutrophils % (auto) 81.8 %; Platelet Count 260 K/uL (130-400); RDW Coefficient of Variation 16.5 % (11.5-14.5); RDW Standard Deviation 49.2 fL (36.4-46.3); Red Blood Count 4.75 M/uL (4.70-6.10)
[2023-01-24 10:50] LABS: Appearance Urine Turbid (Clear); Bilirubin Urine Negative (Negative); Blood Urine 3+ (Negative); Color Urine Dark Yellow; Epithelial Cell Urine Auto >30 /lpf (0-5); Glucose Urine UA Negative (Negative); Ketones Urine Negative (Negative); Leukocyte Esterase Urine 3+ (Negative); Nitrite Urine Negative (Negative); Protein Urine 3+ (Negative); Specific Gravity Urine 1.014 (1.000-1.030); Urobilinogen Urine Negative (Negative); WBC Urine Automated >30 /hpf (0-5)
[2023-01-24 10:53] LABS: Albumin Level 3.2 gm/dl (3.4-5.0); BUN Creatinine Ratio 13.8 (10-20); Bilirubin Direct 0.2 mg/dl (0-0.2); Bilirubin,Total 1.2 mg/dl (0.2-1.0); Calcium 8.7 mg/dl (8.6-10.3); Creatinine Clr Calc Pharmacy 17.2 ml/min; Est GFR (African American) 44.6 ml/min; Est GFR (Non-African American) 38.4 ml/min; Potassium 3.3 mmol/L (3.5-5.1); Total Protein 6.9 gm/dl (6.0-8.3)
[2023-01-24 11:03] LABS: Troponin I High Sensitivity 587.4 pg/ml (0-20)
[2023-01-24 11:10] LABS: Bacteria Urine Automated 1+ (Negative); Mucus Urine Present (None Prsent); RBC Urine Automated >30 /hpf (0-4)
--- NOTE | 2023-01-24 11:36 | History & Physical Report ---
Date of Service January 24, 2023 Assessment & Plan (1) Sepsis associated hypotension: Plan: Sepsis with elevated lactate, suspect due to UTI. DDx includes pneumonia CXR on admission with left midlung airspace opacity. Patient sounds diffusely coarse with trace end expiratory wheezes greatly improved following neb. He has been treated for bronchiectasis, and endorses he has had a chronic cough intermittently productive for light green sputum but that his cough and shortness of breath have actually not changed in the preceding 2 to 3 days let alone weeks, and feels he was actually "doing okay "and getting a little bit better on nebulized tobramycin since seeing pulmonology Patient has had Carrero placement following stricture dilation, urine is contaminated versus infected appearing with a large number of epithelial cells but 1+ bacteria and 3+ leukocyte esterase. Culture pending Patient has a history of pseudomonal sputum+ and urine culture. Will cover with broad-spectrum antibiotics with pseudomonal coverage, continue cefepime at this time. Procalcitonin is normal on admission Lactate repeat pending Patient received 1500 cc of fluid, 30 cc/kg approximately 1200 cc with body weight of 37 kg. Appears clinically hypovolemic. Patient has a history of heart failure with preserved ejection fracture, although echoes have shown normal RV and LV function with grade 1 diastolic dysfunction and is thought to have a predominant contribution of venous stasis/lymphedema to his lower extremity swelling. CXR does have mild pulmonary edema, cautious use of fluids and follow clinically. Creatinine is mildly elevated from baseline and is othe rwise noted, will hold diuretics Antihypertensives held Heart failure preserved ejection fraction, troponin elevation Echo 09/2022: LV normal size, EF 50-55%, moderate concentric LVH. No wall mot ion abnormalities. RV normal in size and function. RVSP 30-40 mmHg History of right heart cath 12/2019: Normal right and left-sided filling pressures, normal PA pressures, normal cardiac output. Last heart failure visit 12/12/2022. Suspected to have multifactorial fluid retention with predominant factor being hypoalbuminemia and lymphedema. Due to his pulmonary disease cor pulmonale was considered within the differential; however RV was normal in size and function and LV with normal size and function on echo. Patient was continued on Bumex 2 mg twice daily, with increased to 4 mg as needed for weight gain, and metolazone only as needed. Patient dry weight at that time 190 pounds. 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 Leg swelling is multifactorial with history of venous stasis. Continue compression stockings Troponin is mildly elevated at 587. Patient with A-fib RVR on admission. Suspect demand, patient denies chest pain at any point including at time of admission. Updated limited echo pending New onset A-fib A-fib with RVR up to 150 on admission, patient hypovolemic and hypotensive Heart rate significantly downtrending with fluids, [id number] at time of bedside assessment Initially hypotensive, BP improving to 1 [id number] following fluids We will continue maintenance fluids, cautious with aggressive fluids with history of HFpEF and hold if signs of worsening CHF develop [id number] of 4, prophylactic anticoagulation recommended. Patient denies bleeding complications/blood transfusions in the past. Will place on heparin on admission, recommend conversion/transition to DOAC if tolerating well for stroke prophylaxis at discharge. Patient appears hypotensive and hypovolemic, can resume diltiazem tomorrow if BP stable. May also add metoprolol for A-fib rate control once adequately rehydrated and BP tolerating. Rates have down trended to 901 20, suspect his low blood pressure is predominantly due to sepsis/hypotension rather than rate related at time of assessment COPD/PRISCILA/bronchiectasis Per pulm note 01/02/2023: Continued on hypertonic saline, nebulized tobramycin, steroids were continued with taper, and clinical pneumonia was not thought to be present at that time. Since his discharge 11/07/2022 patient had been clinically improving up until that appointment and x-ray showed stable basilar densities On home Trelegy, nebulized saline, tobramycin twice daily. Tobramycin held while on cefepime and inpatient, resume as outpatient CPAP nightly with evening oxygen Nebs as needed, Xopenex preferred due to tachycardia PFTs: FVC 2.96/77% predicted, FEV1 1.75/61% predicted, FEV1/FVC 59/78% predicted with insignificant bronchodilator response. ?UTI, Carrero in place for history of urinary retention Cystoscopy 01/19/2023: Pendulous urethra with strictures, strictures were dilated at that time. BPH present. Patient with Carrero placed, was to maintain for 1 week and then follow-up with urology pending this week for removal/PVR UA infected versus contaminated appearing, culture pending Antibiotics and fluids as otherwise noted Gastroparesis Gastric emptying study 60% retention after 4 hours prior eval Continue vitamin supplementation Small frequent meals, low-fat, low fiber diet. CKD Baseline creatinine appears around 1.3 Admitting creatinine 1.6 Renally dose medications, hold nephrotoxins, trend BMP daily Hypothyroidism Continue Synthroid TSH 01/2023 wnl DVT prophylaxis: Heparin with consideration of conversion to DOAC due to new onset A-fib Disposition: PCU CODE STATUS: Full code Diet: Low-salt, small frequent meals, low-fat, low fiber (2) Afib: (3) Urinary tract infection: (4) PRISCILA (obstructive sleep apnea): (5) GERD (gastroesophageal reflux disease): (6) COPD (chronic obstructive pulmonary disease): (7) Elevated troponin: (8) Hypothyroidism: (9) Hypertension: (10) Acute on chronic kidney failure: (11) (HFpEF) heart failure with preserved ejection fraction: History of Present Illness Primary Care Provider: Tyler Hawkins MD Isma is an 87-year-old male with a past medical history of COPD, PRISCILA, noct urnal hypoxia on oxygen, hypothyroidism, bronchiectasis, anemia, heart failure preserved ejection fraction, spinal stenosis, hypertension, gout last seen by pulmonology 01/02/23 for sleep disordered breathing, moderate obstructive lung disease, and follow-up of pneumonia following an admission for bronchiectasis with history of pseudomonal pneumonia who presents to the ER with hypotension, tachycardia, tachypnea, and increased oxygen requirements. Patient presented by EMS due to reduced consciousness, difficulty breathing, and slumping over at the table and becoming unresponsive during breakfast. On arrival to ER was hypoxic to 79% with coarse lung sounds and tachypnea, patient was found to be in A-fib which was new. Patient was treated with fluids, cefepime, and Xopenex. ER Lab Review: Leukocytosis of 15.7, increased from last 11.4, with left shift AB.4 5/44/89/HCO3 31 Potassium 3.3 Baseline creatinine appears around 1.3-1.45, admitting creatinine 1.6 Lactate elevated 3.1 High sensitive troponin 587 Procalcitonin 0.22 UA with 3+ leukocyte esterase, bacteria/epis pending BioFire: pending CXR: Cardiomegaly with mild pulmonary edema, left midlung airspace opacity appears new/increased from prior. Patient has had patchy bibasilar chronic densities on past x-rays Blood cultures pending, urine culture pending Sputum 10/06/2022: Pseudomonas aeruginosa without additional resistance Urine culture 11/28/2021: E. coli pansensitive, Pseudomonas with intermediate resistance to levofloxacin Multiple past E. coli urine cultures with pansensitivity Last EKG 12/31/2022: Sinus rhythm with PVCs. Of note computer read of this reported A-fib however P waves were clearly apparent and was consistent with sinus on provider review. Past EKGs reviewed, no prior A-fib appreciated. Poor R wave progression on past EKG Echo 10/05/2022: EF 50-55%, LV normal in size, moderate concentric LVH, RV normal in size and function, grade 1 diastolic dysfunction, no change in LV function compared to 03/2021 Received 1500 cc NSS, cefepime in ER. 30 cc/kg with body weight 36 equal ~1150-1200cc Isma is seen at the beside. He reports last night he felt much more tired' arms and legs like logs and just so tired.' No areas of focal weakness, no numbness and tingling 'just weak all over both arms and legs.' NOrmally no trouble with weakness. Reports in the last 2 weeks his breathing was actually 'not too bed was getting better with the tobramycin supposed to be 28 on and off getting close to 28 on'. Denies increased shortness of breath in the last 2 days. +continued cough, intermittently product for very light green sputum without recent change. Denies fevers, chills, sweats. No chest pain at any point. Denies palpitations/fluttering in chest. 'No afib that I've been told'. Is not on blood thinners. No history of bleeding problems. Denies nausea/vomiting/diarrhea. Reports he has been eating and drinking relatively normally the last few days. Denies dysuria. Has a cather in place which was placed by urology as outpatient. Is not sure if the output has changed at all. Was to followup for voiding trial this coming week. Feels better than when he came in, still feels very tired. No recent increase in leg swelling recently, has compression stockings on. No recent salt loads. Medical History: Reviewed Medications: Reviewed Surgical History: Reviewed Family history: Reviewed Allergies: Reviewed Social History: Denies tobacco use. Rare single beer use on social occasions, denies regular use. Code Status:Full Code Allergies Allergy/AdvReac Type Severity Reaction Status Date / Time clarithromycin Allergy Intermediate RASH Verified 01/22/23 11:11 Home Medications Medication Instructions Recorded Confirmed Type magnesium 250 mg tablet 250 mg PO 3XWK 08/02/18 01/24/23 History cholecalciferol (vitamin D3) 25 1,000 units PO QAM 05/30/19 01/24/23 History mcg (1,000 unit) tablet multivitamin 1 tab PO QAM 09/04/20 01/24/23 History acetaminophen 500 mg tablet 1,000 mg PO Q6 PRN Pain 03/25/21 01/24/23 History (Tylenol Extra Strength) promethazine-DM 6.25 mg-15 mg/5 mL 5 ml PO Q6H PRN cough #473 mL 09/24/21 01/24/23 Rx oral syrup levothyroxine 150 mcg tablet 150 mcg PO QAM #90 tabs 02/03/22 01/24/23 Rx diltiazem HCl 180 mg capsule,24 180 mg PO QAM 90 days #90 caps 04/22/22 01/24/23 Rx hr,extended release (Tiazac) fluticasone fur. 100 mcg-umeclid 1 inh inhalation QAM #3 Inhalers 08/26/22 01/24/23 Rx 62.5 mcg-vilant 25 mcg inhalat.powder (Trelegy Ellipta) albuterol sulfate 90 mcg/actuation 2 puff inhalation Q6H #8.5 grams 10/17/22 01/24/23 Rx aerosol inhaler (Ventolin HFA) ipratropium 0.5 mg-albuterol 3 mg 3 ml NEB Q6H PRN 10/17/22 01/24/23 Rx (2.5 mg base)/3 mL nebulization cough/wheeze/dyspnea #1 box soln diclofenac sodium 1 % topical gel 2 g topical QID 10/23/22 01/24/23 History omeprazole 40 mg capsule,delayed 40 mg PO DAILY 11/05/22 01/24/23 History release mupirocin 2 % topical ointment 1 applic topical BID #22 grams 11/10/22 01/24/23 Rx oxycodone 5 mg tablet 2.5 mg PO Q4H PRN Pain #30 tabs 11/20/22 01/24/23 Rx tamsulosin 0.4 mg capsule 0.4 mg PO DAILY #30 caps 12/03/22 01/24/23 Rx potassium chloride 20 mEq 20 meq PO DAILY #72 tabs 12/12/22 01/24/23 Rx tablet,extended release(part/cryst) Oxygen Home 12/31/22 01/22/23 History bumetanide 2 mg tablet 2 mg PO BID 12/31/22 01/24/23 History sennosides 8.6 mg tablet (Senokot) 8.6 mg PO QAM 12/31/22 01/24/23 History sodium chloride 3 % for 4 ml inhalation BID #120 mL 01/02/23 01/24/23 Rx nebulization tobramycin 300 mg/5 mL in 0.225 % 300 mg (5 mL) inhalation BID 28 01/02/23 01/24/23 Rx sodium chloride for nebulization days #280 mL (Josue) ciclopirox 8 % topical solution 1 applic topical DAILY #6.6 mL 01/15/23 01/24/23 Rx finasteride 5 mg tablet 5 mg PO DAILY #30 tabs 01/21/23 01/24/23 Rx Past Med/Surg History Medical History (Updated 01/24/23 @ 11:56 by Tony Mcqueen MD) Acute and chronic respiratory failure Acute on chronic diastolic (congestive) heart failure Acute on chronic diastolic (congestive) heart failure Acute on chronic kidney failure Avulsion injury of right elbow region Back problem BPH (benign prostatic hyperplasia) Candidal diaper rash Cellulitis Cellulitis Cellulitis Cellulitis of both lower extremities Cellulitis of left leg Cellulitis of left lower extremity CHI (closed head injury) Chronic obstructive pulmonary disease Chronic respiratory failure with hypoxia Closed hip fracture Contusion of elbow Contusion of face COPD (chronic obstructive pulmonary disease) Early satiety Elevated troponin Fluid retention in legs GERD (gastroesophageal reflux disease) Hematoma of right lower extremity History of bronchitis History of cellulitis Hypernatremia Hypertension Hypothyroidism Hypothyroidism (acquired) Left lumbar radiculopathy Leg length discrepancy Livedo reticularis Lumbar spinal stenosis Lymphedema MRSA (methicillin resistant Staphylococcus aureus) On home oxygen therapy 02 2LPM AT HS PRISCILA (obstructive sleep apnea) Osteoarthritis Osteoporosis, unspecified Personal history of MRSA (methicillin resistant Staphylococcus aureus) Pulmonary edema Pulmonary nodule Sepsis Sepsis Skin tear Sleep apnea cpap Spinal stenosis Syncope Urethral stricture Vitamin D deficiency Surgical History History of cardiac cath 12/2019 - [place] - increased edema - no stents/angioplasty History of cholecystectomy History of colonoscopy History of herniorrhaphy left inguinal History of partial knee replacement left History of tonsillectomy History of tooth extraction Hx of surgical procedure LEFT FEMUR FX WITH REPAIR Family History Mother Cerebral atherosclerosis Father Diverticulosis Other No significant family history Denies family history of Ovarian cancer Prostate cancer Myocardial infarction Breast cancer Colorectal cancer Social History Smoking Status: Former smoker Tobacco Type: Cigarettes Age Started Using Tobacco: 22; packs per day: 1; Cigarettes Per Day: 20; Second Hand Exposure: No; Do You Dip or Chew Tobacco: No; Hx Alcohol Use: No Hx Substance Use: Yes Last Used Substance: Unknown Last Used Substance Other:: medical marijuana for back pain Preferred Language: Wolof Communication Ability: Effective Visual Impairment: No Limitations Hearing Ability: Normal City Letter Carrier Required: No Beliefs That Will Affect Care: None marital status: Current Living Situation: Spouse current occupational status: retired Feels Safe at Home: Yes Dental Care, Regularly: No Physical Activity Frequency: 1-2 Times per Week Seatbelt Use: always Sunscreen Use: Yes Assistive Devices: Cane and Walker Review of Systems Review of Systems: All systems reviewed & are unremarkable except as noted in HPI & below Physical Exam Physical Exam: General: A&Ox3. NAD. Cooperative. HEENT: Atraumatic, normocephalic. Vision/hearing grossly intact Pulm:Diffusely coarse. Symmetrical chest rise. No increased work of breathing. No respiratory distress. Cardiac: irir, tachycardic. Radial pulses intact and symmetrical. No JVD. Abdominal: Nontender, nondistended, soft. BS present. Extremities: Warm, dry. 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 Patient feels qualitatively weak to hip flexion, but strength is intact with effort. Sensation of soft touch intact in hands feet bilaterally. Compression stockings are on feet bilaterally, underlying ankle pitting edema is present bilaterally. Results & Data Results & Data Vital Signs (Past 12 Hours) Vital Signs Temp Pulse Pulse Resp BP BP Pulse Ox 01/24/23 11:00 120 H 18 133/73 99 01/24/23 10:45 120 H 25 H 122/67 99 01/24/23 10:30 132 H 29 H 102/74 97 01/24/23 10:00 140 H 30 H 122/67 96 01/24/23 09:45 119 H 30 H 94/70 L 88 L 01/24/23 09:47 99 01/24/23 09:37 125 H 01/24/23 09:35 36.7 C 150 H 36 H 83/65 L 79 L O2 Del Method O2 Flow Rate 01/24/23 11:00 Oxymask 01/24/23 10:45 Oxymask 10 01/24/23 10:30 Room Air 01/24/23 10:00 Oxymask 10 01/24/23 09:45 Nasal Cannula 6 01/24/23 09:47 Oxymask 8 01/24/23 09:37 01/24/23 09:35 Room Air PG Care Time/CCT Total # of Minutes Spent Total Time Spent with Patient: Total time spent is greater than 50% in coordination of care (as documented) at patient's floor/unit and/or counseling patient: Coding Level of Care Code 74899 INT INP/OBS CARE 3/75MIN Diagnoses Sepsis associated hypotension A41.9; I95.9 Afib I48.91 Urinary tract infection N39.0; R31.9 Hematuria presence: with hematuria Urinary tract infection type: site unspecified PRISCILA (obstructive sleep apnea) G47.33 GERD (gastroesophageal reflux disease) K21.9 Esophagitis presence: esophagitis presence not specified COPD (chronic obstructive pulmonary disease) 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 Elevated troponin R77.8 Hypothyroidism E03.9 Hypothyroidism type: unspecified Hypertension I10 Hypertension type: essential hypertension Acute on chronic kidney failure N17.9; N18.9 (HFpEF) heart failure with preserved ejection fraction I50.30 (3) Urinary tract infection Hematuria presence: with hematuria Urinary tract infection type: site unspecified Qualified Code(s): N39.0 - Urinary tract infection, site not specified; R31.9 - Hematuria, unspecified (5) GERD (gastroesophageal reflux disease) Esophagitis presence: esophagitis presence not specified Qualified Code(s): K21.9 - Gastro-esophageal reflux disease without esophagitis (6) COPD (chronic obstructive pulmonary disease) COPD type: emphysema Emphysema type: unspecified Qualified Code(s): J43.9 - Emphysema, unspecified (8) Hypothyroidism Hypothyroidism type: unspecified Qualified Code(s): E03.9 - Hypothyroidism, unspecified (9) Hypertension Hypertension type: essential hypertension Qualified Code(s): I10 - Essential (primary) hypertension
[2023-01-24 11:47] LABS: Adenovirus PCR Not Detected (NotDetected); Bordetella parapertussis PCR Not Detected (NotDetected); Bordetella pertussis PCR Not Detected (NotDetected); Chlamydia pneumoniae PCR Not Detected (NotDetected); Coronavirus 229E PCR Not Detected (NotDetected); Coronavirus CoV-2 (COVID19)PCR Not Detected (NotDetected); Coronavirus HKU1 PCR Not Detected (NotDetected); Coronavirus NL63 PCR Not Detected (NotDetected); Coronavirus OC43PCR Not Detected (NotDetected); Human Metapneumovirus PCR Not Detected (NotDetected); Influenza A PCR Not Detected (NotDetected); Influenza B PCR Not Detected (NotDetected); Mycoplasma pneumoniae PCR Not Detected (NotDetected); Parainfluenza Virus 1 PCR Not Detected (NotDetected); Parainfluenza Virus 2 PCR Not Detected (NotDetected); Parainfluenza Virus 3 PCR Not Detected (NotDetected); Parainfluenza Virus 4 PCR Not Detected (NotDetected); Respiratory Syncytial VirusPCR Not Detected (NotDetected)
[2023-01-24] MEDS: SODIUM CHLORIDE 0.9% 1000ML 1,000 ML IV SCH ×3 (12:09→18:47)
[2023-01-24 12:22] LABS: Rhinovirus/Enterovirus PCR DETECTED (NotDetected)
[2023-01-24] MEDS ORDERED: VANCOMYCIN CONSULT ACTIVE PRN ×2 (12:22→13:31)
[2023-01-24] MEDS ORDERED: VANCOMYCIN HCL 750 MG in SODIUM CHLORIDE 0.9% 500 ML IV ONE (12:45)
[2023-01-24] MEDS ORDERED: POTASSIUM CHLORIDE CRTAB 20 MEQ TABCR PO STA (12:51)
[2023-01-24] MEDS ORDERED: METOPROLOL TARTRATE 1 MG/ML VIAL IV PRN (13:31)
[2023-01-24] MEDS ORDERED: PLASMA-LYTE A 1,000 ML IV SCH (13:31)
[2023-01-24] MEDS ORDERED: CEFEPIME 2,000 MG in SYRINGE 0 ML IV SCH (13:31)
[2023-01-24] MEDS ORDERED: oxyCODONE HCL IR 5 MG TAB (IMMEDIATE RELEASE) PO PRN (13:31)
[2023-01-24] MEDS ORDERED: VANCOMYCIN HCL 2,000 MG in SODIUM CHLORIDE 0.9% 500 ML IV ONE (14:00)
[2023-01-24] MEDS ORDERED: HEPARIN SOD (PORCINE) 1000 UNIT/ML IV ONE (14:30)
[2023-01-24] MEDS: HEPARIN SODIUM/DEXTROSE 25,000 UNITS/500 ML BAG IV SCH (14:38)
[2023-01-24] MEDS: Heparin IV Adult Wt-Based Low-Dose WITH Bolus Protocol IV SCH ×4 (14:40→18:21)
--- NOTE | 2023-01-24 15:06 | Pharmacy Report ---
Pharmacy PK ABX Note - Date of Service January 24, 2023 - Assessment and Plan Assessment 87 year old M receiving empiric vancomycin/cefepime for treatment of sepsis- possible urinary vs. pulmonary source. WBC 15.7, tachycardic (new onset A. fib), hypotensive, hypoxic on arrival. Patient with multiple antibiotics in last 90 days including doxycycline, augmentin, cefdinir, linezolid and inhaled tobramycin. Pertinent microbiologic data includes: Positive MRSA nasal swab 11/05/22. Past cultures include Pseudomonas (sputum); E. coli (urine), MRSA (leg culture) . Blood and urine cultures are pending at this time. Plan Vancomycin * Loading dose: 2000 mg IV x 1 * Maintenance dose: 1000 mg IV every 24 hours * Regimen is predicted to achieve target AUC/REGINALD of 400-600 mg/L.hr * Random level to be ordered if continued >48 hours Pharmacy will continue to follow and will adjust dose/frequency as necessary. Thank you. Pharmacy has transitioned to AUC monitoring for vancomycin. AUC/REGINALD is the preferred PK/PD target and is associated with decreased risk of nephrotoxicity compared to traditional trough targets.
[2023-01-24] MEDS: SODIUM CHLOR 7% 4 ML NEB INH SCH (18:57)
--- NOTE | 2023-01-24 21:05 | XCELERA ---
[id number] \\[id number]
[2023-01-24 21:06] LABS: Partial Thromboplastin Ratio 1.3; Partial Thromboplastin Time 37.1 Seconds (21.0-31.0)
[2023-01-24] MEDS: CEFEPIME 1,000 MG in SYRINGE 0 ML IV SCH (21:20)
[2023-01-25] MEDS ORDERED: VANCOMYCIN HCL 1,000 MG in SODIUM CHLORIDE 0.9% 250 ML IV SCH (02:00)
[2023-01-25] MEDS: VANCOMYCIN HCL 1,000 MG in SODIUM CHLORIDE 0.9% 250 ML IV SCH ×2 (02:00→14:04)
[2023-01-25 03:38] LABS: Basophils # (auto) 0.02 K/uL (0-0.2); Basophils % (auto) 0.2 %; Eosinophils # (auto) 0.23 K/uL (0-0.50); Eosinophils % (auto) 2.2 %; Hematocrit (blood only) 35.9 % (42.0-52.0); Hemoglobin 11.3 g/dl (14.0-18.0); Immature Granulocytes # (auto) 0.06 K/uL (0.01-0.20); Immature Granulocytes % (auto) 0.6 %; Lymphocytes # (auto) 1.08 K/uL (1.2-3.4); Lymphocytes % (auto) 10.5 %; Mean Corpuscular Hemoglobin 26.3 pg (25.0-34.0); Mean Corpuscular Hgb Conc 31.5 g/dL (32.0-36.0); Mean Corpuscular Volume 83.5 fL (80.0-100.0); Mean Platelet Volume 12.3 fL (9.4-12.4); Monocytes # (auto) 1.23 K/uL (0.11-0.59); Neutrophils # (auto) 7.66 K/uL (1.40-6.50); Neutrophils % (auto) 74.5 %; Platelet Count 224 K/uL (130-400); RDW Coefficient of Variation 16.6 % (11.5-14.5); RDW Standard Deviation 50.3 fL (36.4-46.3); White Blood Count 10.28 K/ul (4.8-10.8)
[2023-01-25 04:02] LABS: Partial Thromboplastin Ratio 1.3; Partial Thromboplastin Time 35.9 Seconds (21.0-31.0)
[2023-01-25 04:11] LABS: Albumin Globulin Ratio 0.8 (0.9-2); Albumin Level 2.6 gm/dl (3.4-5.0); BUN Creatinine Ratio 16.9 (10-20); Bilirubin,Total 0.7 mg/dl (0.2-1.0); Calcium 7.5 mg/dl (8.6-10.3); Creatinine Clr Calc Pharmacy 33.5 ml/min; Est GFR (African American) 40.8 ml/min; Est GFR (Non-African American) 35.2 ml/min; Globulin 3.1 gm/dl (2.5-4.0); Potassium 3.4 mmol/L (3.5-5.1); Total Protein 5.7 gm/dl (6.0-8.3)
[2023-01-25] MEDS ORDERED: HEPARIN SOD (PORCINE) 1000 UNIT/ML IV ONE (04:30)
[2023-01-25] MEDS: LEVOTHYROXINE SODIUM 150 MCG TABLET PO SCH (04:53)
[2023-01-25] MEDS: SODIUM CHLOR 7% 4 ML NEB INH SCH ×2 (07:07→19:10)
[2023-01-25] MEDS: PANTOprazole 40 MG TAB PO SCH (08:57)
[2023-01-25] MEDS: POTASSIUM CHLORIDE CRTAB 20 MEQ TABCR PO SCH (08:57)
[2023-01-25] MEDS: FLUTICASONE/VILANTEROL 100/25MCG 14 PUFFS/INHALER INH SCH (08:57)
[2023-01-25] MEDS ORDERED: UMECLIDINIUM/VILANTEROL 62.5/25MCG 7 PUFFS/INHALER INH SCH (09:00)
[2023-01-25] MEDS ORDERED: NON-FORMULARY MEDICATION (Fluticasone-Umeclidin-Vilanter [Trelegy Ellipta] 100-62.5-25 mcg INH SCH (09:00)
--- NOTE | 2023-01-25 09:51 | Hospitalist Progress Note ---
Date of Service January 25, 2023 Assessment & Plan (1) Severe sepsis: Plan: Severe sepsis with elevated lactate, and initially with hypotension, improving At this time, most suspicious of pneumonia as cause, however differential does include urinary tract infection, bacteremia CXR on admission with left midlung airspace opacity BCx pending Patient had Carrero placement following stricture dilation, UA contaminated appearing, urine culture with <1000 CFU Patient has a history of pseudomonal sputum+ and urine culture. Continue cefepime and add doxycycline for atypical pneumonia coverage Patient received 1500 cc of fluid; has a history of HFpEF so less fluids were given in favor of oral fluids (2) Acute hypoxemic respiratory failure: Plan: Patient with Hx COPD, most recent PFTs: FVC 2.96/77% predicted, FEV1 1.75/61% predicted, FEV1/FVC 59/78% predicted with insignificant bronchodilator response. Typically on 2LNC at nighttime only, currently on 4LNC to maintain O2 88-92% Perhaps 2/2 pneumonia? Treating with cefepime/doxy On home Trelegy, nebulized saline, tobramycin twice daily. Tobramycin held CPAP nightly Nebs as needed, Xopenex preferred due to intermittent tachycardia Abx as above, Mucinex As patient's clinical status continues to improve, will need two step to determine if he will require more than his typical home oxygen needs (3) COPD (chronic obstructive pulmonary disease): Plan: see above (4) Multifocal atrial tachycardia: Plan: Periods of atrial tachycardia in the setting of sepsis. Was initially on heparin gtt for concern for AFib Cardiology consulted and appreciate recommendations; do not suspect AFib but rather sinus tachy/ATach in setting of sepsis Anticoagulation discontinued Continue home diltiazem (5) Elevated troponin: Plan: See above. No evidence of ACS on EKG, no chest pain/pressure (6) Acute on chronic kidney failure: Plan: Creatinine baseline ~1.2; 1.72 today, continue to encourage PO fluids ALFONSO in the setting of hypotension and sepsis, anticipate improvement with infection treatment Renally dose medications, hold nephrotoxins, trend BMP daily (7) (HFpEF) heart failure with preserved ejection fraction: Plan: Echo 01/24/2023: LVEF 55-60%; unable to exclude WMA due to severe lung disease. Has previously been labeled Grade 1 diastolic dysfunction History of right heart cath 12/2019: Normal right and left-sided filling pressures, normal PA pressures, normal cardiac output [employer] Lasix/metolazone held due to sepsis/hypotension Low-sodium diet continued Patient has mild pulmonary edema, leg swelling appears at baseline and otherwise is clinically hypovolemic in the setting of suspected sepsis. Leg swelling is multifactorial with history of venous stasis. Continue compression stockings Troponin peaked in 800s and has since downtrended. Suspect demand, patient denies chest pain at any point including at time of admission (8) Urinary tract infection: Plan: Ruled out, UCx <1000 CFU Cystoscopy 01/19/2023: Pendulous urethra with strictures, strictures were dilated at that time. BPH present. Patient with Carrero placed, was to maintain for 1 week and then follow-up with urology pending this week for removal/PVR UA infected versus contaminated appearing, culture pending Antibiotics and fluids as otherwise noted (9) PRISCILA (obstructive sleep apnea): Plan: CPAP nightly (10) GERD (gastroesophageal reflux disease): Plan: PPI daily (11) Hypothyroidism: Plan: Continue home levothyroxine Plan DVT prophylaxis: Disposition: PCU CODE STATUS: Full code Diet: Low-salt, small frequent meals, low-fat, low fiber Admission and Anticipated Discharge Date Admission Date: January 24, 2023 Subjective No acute events overnight. Reports that his breathing is better today, still does not feel well compared to his baseline. Denies chest pain, abdominal pain, nausea. Review of Systems Review of Systems: All systems reviewed & are unremarkable except as noted in Subjective Physical Exam Constitutional: WD/WN, vitals as above Respiratory: Bilateral expiratory wheezes and rhonchi noted Cardiovascular: RRR, no murmur, no edema Gastrointestinal (Abdomen): normal bowel sounds, soft, nontender, no hepatosplenomegaly Skin: no rashes, warm and dry Psychiatric: A+Ox3, euthymic affect Results & Data Results & Data Vital Signs (Past 12 Hours) Vital Signs Temp Pulse Pulse Resp BP Pulse Ox O2 Del Method 01/25/23 07:00 101 H 01/25/23 07:38 36.4 C L 106 H 18 119/78 96 Room Air 01/25/23 07:08 105 H 18 97 Nasal Cannula 01/25/23 03:13 104 H 27 H 94 01/25/23 02:46 36.7 C 107 H 18 118/73 90 CPAP 01/24/23 22:35 76 28 H 90 01/24/23 23:02 98 H 01/24/23 22:58 36.6 C 100 H 20 111/76 92 CPAP O2 Flow Rate 01/25/23 07:00 01/25/23 07:38 01/25/23 07:08 4 01/25/23 03:13 5 01/25/23 02:46 01/24/23 22:35 4 01/24/23 23:02 01/24/23 22:58 PG Care Time/CCT Total # of Minutes Spent Total Time Spent with Patient: Total time spent is greater than 50% in coordination of care (as documented) at patient's floor/unit and/or counseling patient: Coding Level of Care Code 48562 SUB INP/OBS CARE 3/50MIN Diagnoses Severe sepsis A41.9; R65.20 Acute hypoxemic respiratory failure J96.01 COPD (chronic obstructive pulmonary disease) 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 Multifocal atrial tachycardia I47.1 Elevated troponin R77.8 Acute on chronic kidney failure N17.9; N18.9 (HFpEF) heart failure with preserved ejection fraction I50.30 Urinary tract infection N39.0; R31.9 Hematuria presence: with hematuria Urinary tract infection type: site unspecified PRISCILA (obstructive sleep apnea) G47.33 GERD (gastroesophageal reflux disease) K21.9 Esophagitis presence: esophagitis presence not specified Hypothyroidism E03.9 Hypothyroidism type: unspecified (3) COPD (chronic obstructive pulmonary disease) COPD type: emphysema Emphysema type: unspecified Qualified Code(s): J43.9 - Emphysema, unspecified (8) Urinary tract infection Hematuria presence: with hematuria Urinary tract infection type: site unspecified Qualified Code(s): N39.0 - Urinary tract infection, site not specified; R31.9 - Hematuria, unspecified (10) GERD (gastroesophageal reflux disease) Esophagitis presence: esophagitis presence not specified Qualified Code(s): K21.9 - Gastro-esophageal reflux disease without esophagitis (11) Hypothyroidism Hypothyroidism type: unspecified Qualified Code(s): E03.9 - Hypothyroidism, unspecified
[2023-01-25] MEDS: dilTIAZem HCL 180 MG CAPCR PO SCH (10:07)
[2023-01-25] MEDS: CEFEPIME 1,000 MG in SYRINGE 0 ML IV SCH (10:14)
--- NOTE | 2023-01-25 11:05 | Cardiology Consultation ---
Date of Consultation January 25, 2023 Assessment & Plan (1) Multifocal atrial tachycardia: (2) (HFpEF) heart failure with preserved ejection fraction: (3) Elevated troponin: Plan 1. Atrial arrhythmia: On presentation he was in a rapid irregular rhythm which was computer read as atrial fibrillation, but clearly atrial activity is present. I reviewed telemetry and although all times cannot be seen clearly it appears that his rhythm is a multifocal atrial tachycardia or sinus rhythm with periods of atrial tachycardia. I do not see any convincing evidence of atrial fibrillation or atrial flutter. This rhythm has gradually improved with initial treatment and I suspect was related to his high catecholamine levels at the time of his presentation. I would not treat this specifically at this time. I would not continue therapeutic anticoagulation. 2. Congestive heart failure: I do not believe he has had a significant exacerbation of heart failure, he does have chronic edema and that is still present. 3. Elevated troponin: He does have a significantly elevated troponin, however he does not have known coronary disease and there is no evidence of acute findings on his electrocardiogram. I think this elevation troponin is consistent with his presentation with sepsis and his rapid heart rate. I would not evaluate this further at this time. History of Present Illness Reason for Consultation: Atrial arrhythmia Attending Physician: Priyanka Dixon, History of Present Illness This is a 87-year-old male who has a history of of chronic venous insufficiency with lymphedema, recurrent cellulitis, history of pulmonary embolism, hypothyroidism, GERD, hypertension but is not typically followed by cardiology. He has been seen in our heart failure area since 2020. He did have a right heart catheterization on December 30, 2019 where he had normal right and left-sided filling pressures, I do not believe he has had a left heart catheterization. He presented to the emergency room on December 25, 2022 with sepsis I believe from pneumonia. An echocardiogram was done on January 24, 2023 which showed normal left ventricular size and wall thickness with an ejection fraction of 55 to 60%. There appeared to be grossly normal right ventricular function as well. An electrocardiogram was done on presentation on January 24, 2023 at 09 34, this electrocardiogram was computer read as atrial fibrillation with a rapid ventricular response although on review it is not, it is sinus rhythm with a multifocal atrial tachycardia. I discussed his presenting symptoms with him and he has very little recollection of the events surrounding his preadmission. He does however not recall having chest discomfort either before he became quite ill or since he came into the hospital. He does report that he has been having fairly good control of his heart failure by monitoring his leg swelling and using support stockings. Allergies Allergy/AdvReac Type Severity Reaction Status Date / Time clarithromycin Allergy Intermediate RASH Verified 01/22/23 11:11 Home Medications Medication Instructions Recorded Confirmed Type magnesium 250 mg tablet 250 mg PO 3XWK 08/02/18 01/24/23 History cholecalciferol (vitamin D3) 25 1,000 units PO QAM 05/30/19 01/24/23 History mcg (1,000 unit) tablet multivitamin 1 tab PO QAM 09/04/20 01/24/23 History acetaminophen 500 mg tablet 1,000 mg PO Q6 PRN Pain 03/25/21 01/24/23 History (Tylenol Extra Strength) promethazine-DM 6.25 mg-15 mg/5 mL 5 ml PO Q6H PRN cough #473 mL 09/24/21 01/24/23 Rx oral syrup levothyroxine 150 mcg tablet 150 mcg PO QAM #90 tabs 02/03/22 01/24/23 Rx diltiazem HCl 180 mg capsule,24 180 mg PO QAM 90 days #90 caps 04/22/22 01/24/23 Rx hr,extended release (Tiazac) fluticasone fur. 100 mcg-umeclid 1 inh inhalation QAM #3 Inhalers 08/26/22 01/24/23 Rx 62.5 mcg-vilant 25 mcg inhalat.powder (Trelegy Ellipta) albuterol sulfate 90 mcg/actuation 2 puff inhalation Q6H #8.5 grams 10/17/22 01/24/23 Rx aerosol inhaler (Ventolin HFA) ipratropium 0.5 mg-albuterol 3 mg 3 ml NEB Q6H PRN 10/17/22 01/24/23 Rx (2.5 mg base)/3 mL nebulization cough/wheeze/dyspnea #1 box soln diclofenac sodium 1 % topical gel 2 g topical QID 10/23/22 01/24/23 History omeprazole 40 mg capsule,delayed 40 mg PO DAILY 11/05/22 01/24/23 History release mupirocin 2 % topical ointment 1 applic topical BID #22 grams 11/10/22 01/24/23 Rx oxycodone 5 mg tablet 2.5 mg PO Q4H PRN Pain #30 tabs 11/20/22 01/24/23 Rx tamsulosin 0.4 mg capsule 0.4 mg PO DAILY #30 caps 12/03/22 01/24/23 Rx potassium chloride 20 mEq 20 meq PO DAILY #72 tabs 12/12/22 01/24/23 Rx tablet,extended release(part/cryst) Oxygen Home 12/31/22 01/22/23 History bumetanide 2 mg tablet 2 mg PO BID 12/31/22 01/24/23 History sennosides 8.6 mg tablet (Senokot) 8.6 mg PO QAM 12/31/22 01/24/23 History sodium chloride 3 % for 4 ml inhalation BID #120 mL 01/02/23 01/24/23 Rx nebulization tobramycin 300 mg/5 mL in 0.225 % 300 mg (5 mL) inhalation BID 28 01/02/23 01/24/23 Rx sodium chloride for nebulization days #280 mL (Josue) ciclopirox 8 % topical solution 1 applic topical DAILY #6.6 mL 01/15/23 01/24/23 Rx finasteride 5 mg tablet 5 mg PO DAILY #30 tabs 01/21/23 01/24/23 Rx Patient History Medical History Acute and chronic respiratory failure Acute on chronic diastolic (congestive) heart failure Acute on chronic diastolic (congestive) heart failure Acute on chronic kidney failure Avulsion injury of right elbow region Back problem BPH (benign prostatic hyperplasia) Candidal diaper rash Cellulitis Cellulitis Cellulitis Cellulitis of both lower extremities Cellulitis of left leg Cellulitis of left lower extremity CHI (closed head injury) Chronic obstructive pulmonary disease Chronic respiratory failure with hypoxia Closed hip fracture Contusion of elbow Contusion of face COPD (chronic obstructive pulmonary disease) Early satiety Elevated troponin Fluid retention in legs GERD (gastroesophageal reflux disease) Hematoma of right lower extremity History of bronchitis History of cellulitis Hypernatremia Hypertension Hypothyroidism Hypothyroidism (acquired) Left lumbar radiculopathy Leg length discrepancy Livedo reticularis Lumbar spinal stenosis Lymphedema MRSA (methicillin resistant Staphylococcus aureus) On home oxygen therapy 02 2LPM AT PRISCILA (obstructive sleep apnea) Osteoarthritis Osteoporosis, unspecified Personal history of MRSA (methicillin resistant Staphylococcus aureus) Pulmonary edema Pulmonary nodule Sepsis Sepsis Skin tear Sleep apnea cpap Spinal stenosis Syncope Urethral stricture Vitamin D deficiency Surgical History History of cardiac cath 12/2019 - [place] - increased edema - no stents/angioplasty History of cholecystectomy History of colonoscopy History of herniorrhaphy left inguinal History of partial knee replacement left History of tonsillectomy History of tooth extraction Hx of surgical procedure LEFT FEMUR FX WITH REPAIR Family History Mother Cerebral atherosclerosis Father Diverticulosis Other No significant family history Denies family history of Ovarian cancer Prostate cancer Myocardial infarction Breast cancer Colorectal cancer Social History Smoking Status: Former smoker Tobacco Type: Cigarettes Age Started Using Tobacco: 22; packs per day: 1; Cigarettes Per Day: 20; Second Hand Exposure: No; Do You Dip or Chew Tobacco: No; Tobacco Cessation Education Requested by Patient: No Hx Alcohol Use: Yes Alcohol type: beer Hx Substance Use: Yes Last Used Substance: Unknown Last Used Substance Other:: medical marijuana Preferred Language: Kinyarwanda Communication Ability: Effective Visual Impairment: No Limitations Hearing Ability: Normal Inventory Control Associate Required: No Beliefs That Will Affect Care: None marital status: Current Living Situation: Spouse current occupational status: retired Other Information That Helps Us Care for You: No Feels Safe at Home: Yes Safety Concerns: Feels Safe At This Time Dental Care, Regularly: No Physical Activity Frequency: 1-2 Times per Week Seatbelt Use: always Sunscreen Use: Yes Assistive Devices: CPAP, Denture - Upper, Denture - Lower, Glasses, Hearing Aid - Bilateral, Nebulizer, Oxygen - at Night and Walker Review of Systems Review of Systems: All systems reviewed & are unremarkable except as noted in HPI & below Physical Exam Physical Exam: Constitutional: Alert, cooperative and in minimal distress. HEENT: Unremarkable Neck: No jugular venous distention, carotid pulses are normal and equal bilaterally without bruits. Pulmonary: Expiratory wheezes and rhonchi bilaterally. Cardiac: Regular rhythm with no murmur, gallop or rub. Abdomen: Soft, nontender with normal bowel sounds. Extremities: +2 bilateral pretibial edema. Support stockings in place. Distal pulses intact. Neurologic: No focal findings. Gait was not tested. Skin: No rash, ecchymoses or petechiae. Results & Data Vital Signs (Past 12 Hours) Vital Signs Temp Pulse Pulse Resp BP Pulse Ox O2 Del Method 01/25/23 07:00 Nasal Cannula 01/25/23 10:06 106 H 134/81 92 Nasal Cannula 01/25/23 07:00 101 H 01/25/23 07:38 36.4 C L 106 H 18 119/78 96 Room Air 01/25/23 07:08 105 H 18 97 Nasal Cannula 01/25/23 03:13 104 H 27 H 94 01/25/23 02:46 36.7 C 107 H 18 118/73 90 CPAP 01/24/23 23:02 98 H O2 Flow Rate 01/25/23 07:00 4 01/25/23 10:06 4 01/25/23 07:00 01/25/23 07:38 01/25/23 07:08 4 01/25/23 03:13 5 01/25/23 02:46 01/24/23 23:02 Laboratory Results Cardiac Enzymes 01/24/23 01/24/23 01/24/23 Range/Units 10:23 12:40 20:21 AST (13-39) U/L Troponin I High Sens 587.4 H* 890.9 H* D 829.6 H* (0-20) pg/ml 01/25/23 01/25/23 01/25/23 Range/Units 03:10 03:10 08:18 AST 17 (13-39) U/L Troponin I High Sens 699.2 H* 676.8 H* (0-20) pg/ml Coagulation 01/24/23 01/25/23 Range/Units 20:21 03:10 APTT 37.1 H 35.9 H (21.0-31.0) Seconds CBC 01/25/23 Range/Units 03:10 WBC 10.28 (4.8-10.8) K/ul RBC 4.30 L (4.70-6.10) M/uL Hgb 11.3 L (14.0-18.0) g/dl Hct 35.9 L (42.0-52.0) % Plt Count 224 (130-400) K/uL Neut # (Auto) 7.66 H (1.40-6.50) K/uL Lymph # (Auto) 1.08 L (1.2-3.4) K/uL [place] # (Auto) 1.23 H (0.11-0.59) K/uL Eos # (Auto) 0.23 (0-0.50) K/uL Baso # (Auto) 0.02 (0-0.2) K/uL Comprehensive Metabolic Panel 01/25/23 Range/Units 03:10 Sodium 140 (136-145) mmol/L Potassium 3.4 L (3.5-5.1) mmol/L Chloride 104 (98-107) mmol/L Carbon Dioxide 27 (21-32) mmol/L BUN 29 H (6-23) mg/dl Creatinine 1.72 H (0.6-1.4) mg/dl Glucose 96 (70-99(Fasting)) mg/dl Calcium 7.5 L (8.6-10.3) mg/dl AST 17 (13-39) U/L ALT 7 (7-52) U/L Alkaline Phosphatase 48 (34-104) U/L Total Protein 5.7 L (6.0-8.3) gm/dl Albumin 2.6 L (3.4-5.0) gm/dl Intake and Output 01/24/23 01/25/23 01/25/23 22:59 06:59 14:59 Intake Total 1099.7 / 3573.033 1173.333 / 3573.033 Output Total 601 / 951 350 / 951 Balance 498.7 / 2622.033 823.333 / 2622.033 Intake: IV 659.7 / 2983.033 1173.333 / 2983.033 Heparin Sodium/Dextrose 25,000 119.7 / 271.033 151.333 / 271.033 units In 500 ml @ 1,150 UNITS/ HR 23 mls/hr IV .[id number] [facility] Rx #:[id number] Plasma-Lyte A 1,000 ml @ 80 mls 752 / 752 /hr IV .[id number] [facility] Rx#: [id number] Sodium Chloride 0.9% 1000ML 1, 0 / 650.0 000 ml @ 250 mls/hr IV .Q4H [facility] Rx#:[id number] Vancomycin HCl 1,000 mg In 270 / 270 Sodium Chloride 0.9% 250 ml @ 200 mls/hr IV Q12H [facility] Rx#: [id number] Vancomycin HCl 2,000 mg In 540 / 540 Sodium Chloride 0.9% 500 ml @ 200 mls/hr IV NOW ONE Rx#: [id number] Oral 440 / 590 Output: Urine Amount (Catheter) 600 / 950 350 / 950 Carrero/Indwelling 600 / 950 350 / 950 # Bowel Movements Other: Other Intake Source sips Weight 91.6 kg Weight Measurement Method Built in [facility] Diagnostic Findings Telemetry: Sinus rhythm with frequent episodes of PAT, on presentation it appeared to be a multifocal atrial tachycardia. I do not believe he has had atrial fibrillation or atrial flutter. PG Care Time/CCT Total # of Minutes Spent Total Time Spent with Patient: Total time spent is greater than 50% in coordination of care (as documented) at patient's floor/unit and/or counseling patient: Coding Level of Care Code 44091 INT INP/OBS CARE 2/55MIN Diagnoses Multifocal atrial tachycardia I47.1 (HFpEF) heart failure with preserved ejection fraction I50.30 Elevated troponin R77.8
[2023-01-25] MEDS ORDERED: CEFEPIME 1,000 MG in SYRINGE 0 ML IV ONE (11:30)
[2023-01-25] MEDS: DOXYCYCLINE HYCLATE 100 MG CAP PO SCH ×2 (11:32→21:21)
[2023-01-25 11:47] LABS: Partial Thromboplastin Ratio 1.5
[2023-01-25 12:10] LABS: Partial Thromboplastin Time 43.1 Seconds (21.0-31.0)
[2023-01-25] MEDS: HEPARIN SODIUM/DEXTROSE 25,000 UNITS/500 ML BAG IV SCH (12:24)
[2023-01-25] MEDS ORDERED: LEVALBUTEROL HCL 0.63 MG/3 ML NEB NEB PRN (18:27)
--- NOTE | 2023-01-25 20:42 | Electrocardiogram Report ---
Test Reason : Blood Pressure : / mmHG Vent. Rate : 150 BPM Atrial Rate : 000 BPM P-R Int : 000 ms QRS Dur : 080 ms QT Int : 266 ms P-R-T Axes : 000 -55 085 degrees QTc Int : 420 ms Atrial fibrillation with rapid ventricular response Left axis deviation Inferior infarct , age undetermined Anterolateral infarct , age undetermined Abnormal ECG When compared with ECG of 05-NOV-2022 11:37, Atrial fibrillation has replaced Sinus rhythm Confirmed by Refugio Lynch ([id number]) on 01/25/2023 8:41:55 PM Referred By: REFERRED SELF Confirmed By:Refugio Lynch
[2023-01-25] MEDS: guaiFENesin 600 MG TABCR PO SCH (21:21)
[2023-01-25] MEDS: HEPARIN SOD 5,000 UNIT/0.5 ML VIAL SQ SCH (21:22)
[2023-01-25] MEDS: CEFEPIME 2,000 MG in SYRINGE 0 ML IV SCH (21:22)
[2023-01-25] MEDS ORDERED: CALCIUM CARBONATE 500 MG CHEWABLE TAB PO PRN (23:06)
[2023-01-25] MEDS ORDERED: FAMOTIDINE 10 MG TABLET PO ONE (23:06)
[2023-01-26] MEDS ORDERED: VANCOMYCIN HCL 1,000 MG in SODIUM CHLORIDE 0.9% 250 ML IV SCH (02:00)
[2023-01-26] MEDS: LEVOTHYROXINE SODIUM 150 MCG TABLET PO SCH (05:00)
[2023-01-26 06:20] LABS: Basophils # (auto) 0.03 K/uL (0-0.2); Basophils % (auto) 0.3 %; Eosinophils # (auto) 0.38 K/uL (0-0.50); Eosinophils % (auto) 3.3 %; Hematocrit (blood only) 36.5 % (42.0-52.0); Hemoglobin 11.6 g/dl (14.0-18.0); Immature Granulocytes # (auto) 0.06 K/uL (0.01-0.20); Immature Granulocytes % (auto) 0.5 %; Lymphocytes # (auto) 0.74 K/uL (1.2-3.4); Lymphocytes % (auto) 6.5 %; Mean Corpuscular Hemoglobin 26.5 pg (25.0-34.0); Mean Corpuscular Hgb Conc 31.8 g/dL (32.0-36.0); Mean Corpuscular Volume 83.3 fL (80.0-100.0); Mean Platelet Volume 12.1 fL (9.4-12.4); Monocytes # (auto) 1.17 K/uL (0.11-0.59); Monocytes % (auto) 10.2 %; Neutrophils # (auto) 9.04 K/uL (1.40-6.50); Neutrophils % (auto) 79.2 %; Platelet Count 245 K/uL (130-400); RDW Coefficient of Variation 16.6 % (11.5-14.5); RDW Standard Deviation 50.5 fL (36.4-46.3); Red Blood Count 4.38 M/uL (4.70-6.10); White Blood Count 11.42 K/ul (4.8-10.8)
[2023-01-26 06:29] LABS: BUN Creatinine Ratio 14.8 (10-20); Calcium 8.3 mg/dl (8.6-10.3); Est GFR (African American) 38.1 ml/min; Est GFR (Non-African American) 32.9 ml/min; Potassium 3.6 mmol/L (3.5-5.1)
--- NOTE | 2023-01-26 06:29 | Electrocardiogram Report ---
Test Reason : Blood Pressure : / mmHG Vent. Rate : 109 BPM Atrial Rate : 109 BPM P-R Int : 156 ms QRS Dur : 080 ms QT Int : 360 ms P-R-T Axes : 020 -37 -08 degrees QTc Int : 484 ms Poor data quality, interpretation may be adversely affected Sinus tachycardia with Premature atrial complexes Left axis deviation Anterolateral infarct , age undetermined Abnormal ECG When compared with ECG of 24-JAN-2023 09:34, (unconfirmed) HR has decreased Confirmed by Refugio Lynch ([id number]) on 01/26/2023 6:29:02 AM Referred By: REFERRED SELF Confirmed By:Refugio Lynch
[2023-01-26 07:14] LABS: Partial Thromboplastin Ratio 1.1; Partial Thromboplastin Time 31.3 Seconds (21.0-31.0)
[2023-01-26] MEDS: SODIUM CHLOR 7% 4 ML NEB INH SCH (08:26)
[2023-01-26] MEDS: guaiFENesin 600 MG TABCR PO SCH ×2 (08:46→20:05)
[2023-01-26] MEDS: HEPARIN SOD 5,000 UNIT/0.5 ML VIAL SQ SCH ×2 (08:46→20:05)
[2023-01-26] MEDS: PANTOprazole 40 MG TAB PO SCH (08:46)
[2023-01-26] MEDS: dilTIAZem HCL 180 MG CAPCR PO SCH (08:46)
[2023-01-26] MEDS: DOXYCYCLINE HYCLATE 100 MG CAP PO SCH ×2 (08:46→20:05)
[2023-01-26] MEDS: FLUTICASONE/VILANTEROL 100/25MCG 14 PUFFS/INHALER INH SCH (08:46)
[2023-01-26] MEDS: POTASSIUM CHLORIDE CRTAB 20 MEQ TABCR PO SCH (08:46)
[2023-01-26] MEDS: UMECLIDINIUM BROMIDE 62.5MCG/BLISTER 7 PUFFS/INHALER INH SCH (08:47)
[2023-01-26] MEDS: CEFEPIME 2,000 MG in SYRINGE 0 ML IV SCH (09:32)
[2023-01-26] MEDS ORDERED: FUROSEMIDE 40 MG/4 ML VIAL IV ONE (10:15)
[2023-01-26] MEDS ORDERED: dilTIAZem HCl 5 MG/ML 5 ML VIAL IV STA ×2 (15:48→15:50)
[2023-01-26] MEDS ORDERED: dilTIAZem HCl 5 MG/ML 5 ML VIAL IV ONE (15:52)
--- NOTE | 2023-01-26 17:12 | Electrocardiogram Report ---
Test Reason : Blood Pressure : / mmHG Vent. Rate : 112 BPM Atrial Rate : 112 BPM P-R Int : 122 ms QRS Dur : 080 ms QT Int : 268 ms P-R-T Axes : 018 -34 015 degrees QTc Int : 365 ms Sinus tachycardia with Premature atrial complexes in a pattern of bigeminy Left axis deviation possible Inferior infarct , age undetermined Abnormal ECG When compared with ECG of 25-JAN-2023 10:02, Nonspecific T wave abnormality, worse in Lateral leads Confirmed by Stas Patton ([id number]) on 01/26/2023 5:12:06 PM Referred By: REFERRED SELF Confirmed By:Yefri Patton
[2023-01-26] MEDS: FUROSEMIDE 40 MG/4 ML VIAL IV SCH (17:15)
[2023-01-26] MEDS ORDERED: FUROSEMIDE INJ 20 MG/2 ML VIAL IV ONE (17:17)
--- NOTE | 2023-01-26 17:23 | Hospitalist Progress Note ---
Date of Service January 26, 2023 Assessment & Plan (1) Severe sepsis: Plan: Possible on admission. Now resolved. Blood and urine cultures are negative. He may have underlying pneumonia. He remains on intravenous cefepime and oral doxycycline for now. (2) Acute hypoxemic respiratory failure: Plan: Appears to be primarily due to acute exacerbation of chronic diastolic CHF. Diuresis underway with intravenous Lasix. Wean off oxygen as tolerated. Serial chest x-ray. Monitor intake and output. (3) COPD (chronic obstructive pulmonary disease): Plan: Acute exacerbation of COPD from CHF and possible underlying pneumonia. Cur rently treating both. Nebulizer treatments as needed. (4) Multifocal atrial tachycardia: Plan: Telemetry. Appreciate cardiology consultation and recommendations. Heparin drip has been discontinued. He is now on diltiazem which has been uptitrated and he still is requiring as needed IV diltiazem dosing. (5) Elevated troponin: Plan: No evidence of ACS on EKG. No chest pain/pressure. Suspect demand ischemia related to exacerbation of COPD, CHF, possible pneumonia (6) Acute on chronic kidney failure: Plan: Creatinine up slightly to 1.8. Will monitor intake and output. Serial labs. R enally dose medications, hold nephrotoxins (7) (HFpEF) heart failure with preserved ejection fraction: Plan: Acute exacerbation. Echo 01/24/2023: LVEF 55-60%. Currently on IV Lasix. Monitor intake and output. Serial chest x-ray (8) Urinary tract infection: Plan: Ruled out. Urine culture negative. Cystoscopy 01/19/2023: Pendulous urethra with strictures, strictures were dilated at that time. BPH present. Patient with Carrero placed, was to maintain for 1 week and then follow-up with urology pending this week for removal/PVR. (9) PRISCILA (obstructive sleep apnea): Plan: CPAP nightly (10) GERD (gastroesophageal reflux disease): Plan: PPI daily (11) Hypothyroidism: Plan: Continue home levothyroxine Plan To be determined. Hopeful discharge to home soon. Will obtain OT and PT assessments when appropriate Admission and Anticipated Discharge Date Admission Date: January 24, 2023 Subjective Alert and oriented. No distress. Chest x-ray reveals evidence of cardiomegaly and pulmonary edema consistent with acute on chronic diastolic CHF. He is now on intravenous Lasix. Diltiazem dosage has been uptitrated. Blood cultures and urine cultures are negative. Troponin is elevated but no evidence of acute coronary syndrome. Cardiac echo reveals normal ejection fraction with no regional wall motion abnormalities. Review of Systems Review of Systems: Constitutional-no fever or chills ENT-no blurred vision, no double vision, no epistaxis, no sore throat Respiratory-no cough, no wheezing. Shortness of breath with minimal exertion. Orthopnea Cardiac-no palpitations, no chest pain, no syncope GI-no nausea, vomiting, diarrhea, melena, hematochezia -no urinary retention, no urinary incontinence, no dysuria, no hematuria Musculoskeletal-no joint pain, no muscle tenderness Skin-no bruising, no rashes, no pruritus Neuro-no isolated weakness, no paresthesia, no weakness Psych-no depression, no anxiety Physical Exam Physical Exam: General-alert and oriented x3, no fevers, no chills HEENT-head atraumatic and normocephalic, pupils equal and reactive to light, extraocular muscles intact Neck-no lymphadenopathy or thyromegaly, trachea midline Chest-bibasilar inspiratory rales. No rhonchi. No wheezing Cardiac-irregular rhythm. Tachycardia. Normal S1 and S2 Abdomen-normal bowel sounds, nontender, no hepatosplenomegaly Extremities-mild peripheral edema bilateral lower extremities Neuro-cranial nerves II through XII intact, motor and sensory function within normal limits, strength symmetrical , no focal deficits Psych-normal affect, normal mood Results & Data Results & Data Vital Signs (Past 12 Hours) Vital Signs Temp Pulse Resp BP Pulse Ox Pulse Ox Pulse Ox 01/26/23 15:27 91 85 L 01/26/23 15:24 36.6 C 60 18 130/69 90 01/26/23 12:43 01/26/23 11:51 36.2 C L 108 H 19 142/82 H 01/26/23 09:10 84 01/26/23 09:00 01/26/23 09:00 01/26/23 08:27 111 H 20 96 01/26/23 08:03 36.7 C 99 H 18 138/80 93 Pulse Ox O2 Del Method O2 Del Method O2 Flow Rate O2 Flow Rate 01/26/23 15: 78 L 01/26/23 15:24 Nasal Cannula 4 01/26/23 12:43 Nasal Cannula 5 01/26/23 11:51 01/26/23 09:10 01/26/23 09:00 Nasal Cannula 5 01/26/23 09:00 Nasal Cannula 5 01/26/23 08:27 Nasal Cannula 5 01/26/23 08:03 Nasal Cannula 6 Laboratory Results 01/26/23 05:31 01/26/23 05:31 PG Care Time/CCT Total # of Minutes Spent Total Time Spent with Patient: Total time spent is greater than 50% in coordination of care (as documented) at patient's floor/unit and/or counseling patient: Coding Level of Care Code 33530 SUB INP/OBS CARE 3/50MIN Diagnoses Severe sepsis A41.9; R65.20 Acute hypoxemic respiratory failure J96.01 COPD (chronic obstructive pulmonary disease) 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 Multifocal atrial tachycardia I47.1 Elevated troponin R77.8 Acute on chronic kidney failure N17.9; N18.9 (HFpEF) heart failure with preserved ejection fraction I50.30 Urinary tract infection N39.0; R31.9 Hematuria presence: with hematuria Urinary tract infection type: site unspecified PRISCILA (obstructive sleep apnea) G47.33 GERD (gastroesophageal reflux disease) K21.9 Esophagitis presence: esophagitis presence not specified Hypothyroidism E03.9 Hypothyroidism type: unspecified (3) COPD (chronic obstructive pulmonary disease) COPD type: emphysema Emphysema type: unspecified Qualified Code(s): J43.9 - Emphysema, unspecified (8) Urinary tract infection Hematuria presence: with hematuria Urinary tract infection type: site unspecified Qualified Code(s): N39.0 - Urinary tract infection, site not specified; R31.9 - Hematuria, unspecified (10) GERD (gastroesophageal reflux disease) Esophagitis presence: esophagitis presence not specified Qualified Code(s): K21.9 - Gastro-esophageal reflux disease without esophagitis (11) Hypothyroidism Hypothyroidism type: unspecified Qualified Code(s): E03.9 - Hypothyroidism, unspecified
[2023-01-26] MEDS ORDERED: MELATONIN 3 MG TAB PO PRN (19:06)
[2023-01-26] MEDS: CEFEPIME 1,000 MG in SYRINGE 0 ML IV SCH (20:05)
[2023-01-26] MEDS: ACETAMINOPHEN 325 MG TAB PO PRN (21:27)
[2023-01-27] MEDS: LEVOTHYROXINE SODIUM 150 MCG TABLET PO SCH (05:29)
[2023-01-27] MEDS: FUROSEMIDE 40 MG/4 ML VIAL IV SCH ×2 (05:30→18:27)
[2023-01-27] MEDS: ACETAMINOPHEN 325 MG TAB PO PRN (06:18)
[2023-01-27 06:20] LABS: Basophils # (auto) 0.04 K/uL (0-0.2); Basophils % (auto) 0.4 %; Eosinophils # (auto) 0.36 K/uL (0-0.50); Eosinophils % (auto) 3.4 %; Hematocrit (blood only) 39.5 % (42.0-52.0); Hemoglobin 12.2 g/dl (14.0-18.0); Immature Granulocytes # (auto) 0.07 K/uL (0.01-0.20); Immature Granulocytes % (auto) 0.7 %; Lymphocytes # (auto) 0.92 K/uL (1.2-3.4); Lymphocytes % (auto) 8.7 %; Mean Corpuscular Hemoglobin 26.2 pg (25.0-34.0); Mean Corpuscular Hgb Conc 30.9 g/dL (32.0-36.0); Mean Corpuscular Volume 84.9 fL (80.0-100.0); Mean Platelet Volume 12.4 fL (9.4-12.4); Monocytes # (auto) 1.25 K/uL (0.11-0.59); Monocytes % (auto) 11.8 %; Neutrophils # (auto) 7.99 K/uL (1.40-6.50); Platelet Count 277 K/uL (130-400); RDW Coefficient of Variation 16.5 % (11.5-14.5); RDW Standard Deviation 50.4 fL (36.4-46.3); Red Blood Count 4.65 M/uL (4.70-6.10); White Blood Count 10.63 K/ul (4.8-10.8)
[2023-01-27 06:32] LABS: BUN Creatinine Ratio 14.9 (10-20); Calcium 8.7 mg/dl (8.6-10.3); Creatinine Clr Calc Pharmacy 29.9 ml/min; Est GFR (African American) 35.1 ml/min; Est GFR (Non-African American) 30.3 ml/min; Potassium 3.9 mmol/L (3.5-5.1)
[2023-01-27] MEDS: CEFEPIME 1,000 MG in SYRINGE 0 ML IV SCH (08:08)
[2023-01-27] MEDS: guaiFENesin 600 MG TABCR PO SCH ×2 (08:09→20:38)
[2023-01-27] MEDS: dilTIAZem HCL 180 MG CAPCR PO SCH (08:09)
[2023-01-27] MEDS: PANTOprazole 40 MG TAB PO SCH (08:09)
[2023-01-27] MEDS: DOXYCYCLINE HYCLATE 100 MG CAP PO SCH (08:09)
[2023-01-27] MEDS: POTASSIUM CHLORIDE CRTAB 20 MEQ TABCR PO SCH (08:10)
[2023-01-27] MEDS: FLUTICASONE/VILANTEROL 100/25MCG 14 PUFFS/INHALER INH SCH (08:10)
[2023-01-27] MEDS: HEPARIN SOD 5,000 UNIT/0.5 ML VIAL SQ SCH ×2 (08:10→20:38)
[2023-01-27] MEDS: UMECLIDINIUM BROMIDE 62.5MCG/BLISTER 7 PUFFS/INHALER INH SCH (08:11)
[2023-01-27] MEDS ORDERED: FUROSEMIDE 40 MG/4 ML VIAL IV SCH (09:00)
--- NOTE | 2023-01-27 11:36 | XRay Report ---
XR chest 1V portable HISTORY: 87 years-old Male CHF acute shortness of breath with reported heart failure COMPARISON: 01/24/2023 TECHNIQUE: AP view of the chest FINDINGS: Cardiac silhouette is enlarged. Emphysema with chronic interstitial coarsening. Pulmonary vascular co ngestion again noted. No pneumothorax. Mild blunting of the lateral costophrenic angles with persiste nt bibasilar densities. Degenerative changes of the shoulders and spine. IMPRESSION: 1. Cardiomegaly with mildly progressive pulmonary edema. 2. Emphysema. 3. Probable small pleural effusions with persistent mild bibasilar opacities. ACT 112: Negative or not required by law. The above report was generated using voice recognition software. It may contain grammatical, syntax o r spelling errors. Electronically signed by: Denver Will M.D. 01/27/2023 11:35 AM
--- NOTE | 2023-01-27 14:37 | Hospitalist Progress Note ---
Date of Service January 27, 2023 Assessment & Plan (1) Severe sepsis: Plan: Possible on admission. Now resolved. Blood and urine cultures are negative. He may have underlying pneumonia. He remains on intravenous cefepime and oral doxycycline for now. Chest CT scan without contrast today, January 27 (2) Acute hypoxemic respiratory failure: Plan: Appears to be primarily due to acute exacerbation of chronic diastolic CHF. Diuresis underway with intravenous Lasix. Wean down oxygen as tolerated. Seri al chest x-ray. Monitor intake and output. (3) COPD (chronic obstructive pulmonary disease): Plan: Acute exacerbation of COPD from CHF and possible underlying pneumonia. Currently treating both. Nebulizer treatments as needed. Chest CT scan today, January 27 (4) Multifocal atrial tachycardia: Plan: Telemetry. Appreciate cardiology consultation and recommendations. Heparin drip has been discontinued. He is now on diltiazem which has been uptitrated and he still is requiring as needed IV diltiazem dosing. (5) Elevated troponin: Plan: No evidence of ACS on EKG. No chest pain/pressure. Suspect demand ischemia related to exacerbation of COPD, CHF, possible pneumonia (6) Acute on chronic kidney failure: Plan: Creatinine up slightly to 1.9. Will monitor intake and output. Serial labs. Renally dose medications, hold nephrotoxins (7) (HFpEF) heart failure with preserved ejection fraction: Plan: Acute exacerbation. Echo 01/24/2023: LVEF 55-60%. Currently on IV Lasix. Monitor intake and output. Serial chest x-ray (8) Urinary tract infection: Plan: Ruled out. Urine culture negative. Cystoscopy 01/19/2023: Pendulous urethra with strictures, strictures were dilated at that time. BPH present. Patient with Carrero placed, was to maintain for 1 week and then follow-up with urology pending this week for removal/PVR. (9) PRISCILA (obstructive sleep apnea): Plan: CPAP nightly (10) GERD (gastroesophageal reflux disease): Plan: PPI daily (11) Hypothyroidism: Plan: Continue home levothyroxine Plan To be determined. OT and PT recommend rehab placement. Admission and Anticipated Discharge Date Admission Date: January 24, 2023 Subjective Awake and alert. No distress. Not much change. Chest x-ray looks about the same. Lasix dosage uptitrated. Will obtain chest CT scan without contrast to reevaluate lung brown. Review of Systems Review of Systems: Constitutional-no fever or chills ENT-no blurred vision, no double vision, no epistaxis, no sore throat Respiratory-no cough, no wheezing. Shortness of breath with minimal exertion. Orthopnea Cardiac-no palpitations, no chest pain, no syncope GI-no nausea, vomiting, diarrhea, melena, hematochezia -no urinary retention, no urinary incontinence, no dysuria, no hematuria Musculoskeletal-no joint pain, no muscle tenderness Skin-no bruising, no rashes, no pruritus Neuro-no isolated weakness, no paresthesia, no weakness Psych-no depression, no anxiety Physical Exam Physical Exam: General-alert and oriented x3, no fevers, no chills HEENT-head atraumatic and normocephalic, pupils equal and reactive to light, extraocular muscles intact Neck-no lymphadenopathy or thyromegaly, trachea midline Chest-bibasilar inspiratory rales. No rhonchi. No wheezing Cardiac-irregular rhythm. Tachycardia. Normal S1 and S2 Abdomen-normal bowel sounds, nontender, no hepatosplenomegaly Extremities-mild peripheral edema bilateral lower extremities Neuro-cranial nerves II through XII intact, motor and sensory function within normal limits, strength symmetrical , no focal deficits Psych-normal affect, normal mood Results & Data Results & Data Vital Signs (Past 12 Hours) Vital Signs Temp Pulse Pulse Resp BP Pulse Ox O2 Del Method 01/27/23 07:00 87 01/27/23 12:07 36.5 C 69 18 111/75 92 Nasal Cannula 01/27/23 08:00 Nasal Cannula 01/27/23 07:43 36.6 C 75 18 131/77 98 Nasal Cannula 01/27/23 06:28 Nasal Cannula 01/27/23 02:58 36.6 C 93 H 20 125/74 93 CPAP O2 Flow Rate 01/27/23 07:00 01/27/23 12:07 6 01/27/23 08:00 6 01/27/23 07:43 6 01/27/23 06:28 6 01/27/23 02:58 Laboratory Results 01/27/23 05:33 01/27/23 05:33 PG Care Time/CCT Total # of Minutes Spent Total Time Spent with Patient: Total time spent is greater than 50% in coordination of care (as documented) at patient's floor/unit and/or counseling patient: Coding Level of Care Code 18702 SUB INP/OBS CARE 50MIN Diagnoses Severe sepsis A41.9; R65.20 Acute hypoxemic respiratory failure J96.01 COPD (chronic obstructive pulmonary disease) 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 Multifocal atrial tachycardia I47.1 Elevated troponin R77.8 Acute on chronic kidney failure N17.9; N18.9 (HFpEF) heart failure with preserved ejection fraction I50.30 Urinary tract infection N39.0; R31.9 Hematuria presence: with hematuria Urinary tract infection type: site unspecified PRISCILA (obstructive sleep apnea) G47.33 GERD (gastroesophageal reflux disease) K21.9 Esophagitis presence: esophagitis presence not specified Hypothyroidism E03.9 Hypothyroidism type: unspecified (3) COPD (chronic obstructive pulmonary disease) COPD type: emphysema Emphysema type: unspecified Qualified Code(s): J43.9 - Emphysema, unspecified (8) Urinary tract infection Hematuria presence: with hematuria Urinary tract infection type: site unspecified Qualified Code(s): N39.0 - Urinary tract infection, site not specified; R31.9 - Hematuria, unspecified (10) GERD (gastroesophageal reflux disease) Esophagitis presence: esophagitis presence not specified Qualified Code(s): K21.9 - Gastro-esophageal reflux disease without esophagitis (11) Hypothyroidism Hypothyroidism type: unspecified Qualified Code(s): E03.9 - Hypothyroidism, unspecified
--- NOTE | 2023-01-27 16:15 | CT Scan Report ---
CT chest diagnostic wo con CLINICAL HISTORY: CHF, possible pneumonia TECHNIQUE: Multidetector row helical CT of the chest was performed. Coronal and sagittal reformations were obtained. Automated dose lowering techniques and/or adjustment according to patient size were u tilized for this exam. CT DOSE: 520.75 mGy.cm Comparison: Comparison is made to CT chest 11/05/2019 FINDINGS: Lungs and pleura: Emphysema and bronchial wall thickening are seen. Small bilateral pleural effusions with underlying atelectasis. Airspace opacities in the lower lobes likely represent atelectasis with or without superimposed aspiration/pneumonia. There is a 5 mm nodule in the right middle lobe (serie s 4 image 151) which was not seen in the prior exam. Heart and pericardium: Heart size is normal. No pericardial effusion. Vessels: The pulmonary trunk is enlarged measuring 35 mm in diameter. Mediastinum and marsha: Multiple mediastinal lymph nodes measure up to 11 mm. Chest wall and lower neck: Unremarkable. Abdomen: Unremarkable. Bones: Degenerative changes in the thoracic spine. Compression deformity of T4 has progressed from pr ior exam IMPRESSION: 1. Bilateral airspace opacities compatible with aspiration/pneumonia. Bilateral pleural effusions ar e seen with underlying atelectasis. 2. Diffuse emphysema and pulmonary hypertension. ACT 112: Negative or not required by law. Electronically signed by: Henry Ellsworth M.D. 01/27/2023 4:14 PM
[2023-01-27] MEDS ORDERED: PIPERACILLIN/TAZOBACTAM 4.5 GM in DEXTROSE 5% 100 ML IV ONE (18:00)
[2023-01-27] MEDS: PIPERACILLIN/TAZOBACTAM 4.5 GM in DEXTROSE 5% 100 ML IV SCH (23:12)
[2023-01-28] MEDS: LEVOTHYROXINE SODIUM 150 MCG TABLET PO SCH (05:49)
[2023-01-28] MEDS: FUROSEMIDE 40 MG/4 ML VIAL IV SCH ×2 (05:51→17:45)
[2023-01-28] MEDS: PIPERACILLIN/TAZOBACTAM 4.5 GM in DEXTROSE 5% 100 ML IV SCH ×3 (08:22→23:45)
[2023-01-28] MEDS: dilTIAZem HCL 180 MG CAPCR PO SCH (08:28)
[2023-01-28] MEDS: POTASSIUM CHLORIDE CRTAB 20 MEQ TABCR PO SCH (08:29)
[2023-01-28] MEDS: guaiFENesin 600 MG TABCR PO SCH ×2 (08:29→20:20)
[2023-01-28] MEDS: FLUTICASONE/VILANTEROL 100/25MCG 14 PUFFS/INHALER INH SCH (08:29)
[2023-01-28] MEDS: HEPARIN SOD 5,000 UNIT/0.5 ML VIAL SQ SCH ×2 (08:29→20:19)
[2023-01-28] MEDS: PANTOprazole 40 MG TAB PO SCH (08:29)
[2023-01-28] MEDS: UMECLIDINIUM BROMIDE 62.5MCG/BLISTER 7 PUFFS/INHALER INH SCH (08:30)
[2023-01-28 11:21] LABS: Basophils # (auto) 0.04 K/uL (0-0.2); Basophils % (auto) 0.4 %; Eosinophils # (auto) 0.36 K/uL (0-0.50); Eosinophils % (auto) 3.5 %; Hematocrit (blood only) 38.1 % (42.0-52.0); Hemoglobin 12.2 g/dl (14.0-18.0); Immature Granulocytes # (auto) 0.11 K/uL (0.01-0.20); Immature Granulocytes % (auto) 1.1 %; Lymphocytes # (auto) 0.85 K/uL (1.2-3.4); Lymphocytes % (auto) 8.2 %; Mean Corpuscular Hemoglobin 26.3 pg (25.0-34.0); Mean Corpuscular Volume 82.3 fL (80.0-100.0); Mean Platelet Volume 11.7 fL (9.4-12.4); Monocytes # (auto) 1.48 K/uL (0.11-0.59); Monocytes % (auto) 14.2 %; Neutrophils # (auto) 7.55 K/uL (1.40-6.50); Neutrophils % (auto) 72.6 %; Platelet Count 268 K/uL (130-400); RDW Coefficient of Variation 16.5 % (11.5-14.5); RDW Standard Deviation 48.6 fL (36.4-46.3); Red Blood Count 4.63 M/uL (4.70-6.10); White Blood Count 10.39 K/ul (4.8-10.8)
[2023-01-28 11:34] LABS: BUN Creatinine Ratio 16.8 (10-20); Calcium 8.9 mg/dl (8.6-10.3); Est GFR (African American) 31.3 ml/min; Potassium 3.7 mmol/L (3.5-5.1)
[2023-01-28] MEDS: POLYETHYLENE (MIRALAX) 17 GM PACK PO SCH (13:52)
--- NOTE | 2023-01-28 15:53 | Hospitalist Progress Note ---
Date of Service January 28, 2023 Assessment & Plan (1) Severe sepsis: Plan: Possible on admission. Now resolved. Blood and urine cultures are negative. He may have underlying pneumonia. He currently is on intravenous Zosyn. Chest CT scan without contrast on January 27 revealed bilateral opacities suspicious for pneumonia with atelectasis and emphysema and evidence of pulmonary arterial hypertension. (2) Acute hypoxemic respiratory failure: Plan: Appears to be primarily due to acute exacerbation of chronic diastolic CHF. Diuresis underway with intravenous Lasix. Wean down oxygen as tolerated. Serial chest x-ray. Monitor intake and output. Improved (3) COPD (chronic obstructive pulmonary disease): Plan: Acute exacerbation of COPD from CHF and possible underlying pneumonia. Currently treating both. Nebulizer treatments as needed. Chest CT scan completed on January 27 (4) Multifocal atrial tachycardia: Plan: Telemetry. Appreciate cardiology consultation and recommendations. Heparin drip has been discontinued. He is now on diltiazem which has been uptitrated (5) Elevated troponin: Plan: No evidence of ACS on EKG. No chest pain/pressure. Suspect demand ischemia related to exacerbation of COPD, CHF, possible pneumonia (6) Acute on chronic kidney failure: Plan: Creatinine up slightly to 2.1. Will monitor intake and output. Serial labs. Renally dose medications, hold nephrotoxins (7) (HFpEF) heart failure with preserved ejection fraction: Plan: Acute exacerbation. Echo 01/24/2023: LVEF 55-60%. Currently on IV Lasix. Monitor intake and output. Serial chest x-ray. Improving (8) Urinary tract infection: Plan: Ruled out. Urine culture negative. Cystoscopy 01/19/2023: Pendulous urethra with strictures, strictures were dilated at that time. BPH present. Patient with Carrero placed, was to maintain for 1 week and then follow-up with urology for removal/PVR. (9) PRISCILA (obstructive sleep apnea): Plan: CPAP nightly (10) GERD (gastroesophageal reflux disease): Plan: PPI daily (11) Hypothyroidism: Plan: Continue home levothyroxine Plan Probable discharge to [place] care tomorrow, January 29 Admission and Anticipated Discharge Date Admission Date: January 24, 2023 Subjective The patient looks better. He is sitting up in a chair and looks better. Oxygen requirements are down to 4 L. Brisk urine output with IV Lasix. We will repeat chest x-ray tomorrow. He probably can go to [facility] tomorrow and will remain on oxygen currently at 4 L/min. Creatinine is trending upward with diuresis but this cannot be prevented. It will be monitored daily. He is currently on intravenous Zosyn for suspected left lower lobe pneumonia. Review of Systems Review of Systems: Constitutional-no fever or chills ENT-no blurred vision, no double vision, no epistaxis, no sore throat Respiratory-no cough, no wheezing. Shortness of breath with minimal exertion. Orthopnea Cardiac-no palpitations, no chest pain, no syncope GI-no nausea, vomiting, diarrhea, melena, hematochezia -no urinary retention, no urinary incontinence, no dysuria, no hematuria Musculoskeletal-no joint pain, no muscle tenderness Skin-no bruising, no rashes, no pruritus Neuro-no isolated weakness, no paresthesia, no weakness Psych-no depression, no anxiety Physical Exam Physical Exam: General-alert and oriented x3, no fevers, no chills HEENT-head atraumatic and normocephalic, pupils equal and reactive to light, extraocular muscles intact Neck-no lymphadenopathy or thyromegaly, trachea midline Chest-bibasilar inspiratory rales. No rhonchi. No wheezing Cardiac-irregular rhythm. Tachycardia. Normal S1 and S2 Abdomen-normal bowel sounds, nontender, no hepatosplenomegaly Extremities-mild peripheral edema bilateral lower extremities Neuro-cranial nerves II through XII intact, motor and sensory function within normal limits, strength symmetrical , no focal deficits Psych-normal affect, normal mood Results & Data Results & Data Vital Signs (Past 12 Hours) Vital Signs Temp Pulse Resp BP Pulse Ox Pulse Ox O2 Del Method 01/28/23 15:07 36.6 C 72 19 111/64 93 Nasal Cannula 01/28/23 13:00 94 01/28/23 11:59 36.5 C 76 18 105/66 95 Nasal Cannula 01/28/23 09:00 92 01/28/23 08:00 Nasal Cannula 01/28/23 07:09 36.8 C 82 19 130/86 95 CPAP O2 Del Method O2 Flow Rate O2 Flow Rate 01/28/23 15:07 4 01/28/23 13:00 Nasal Cannula 4 01/28/23 11:59 4 01/28/23 09:00 Nasal Cannula 5 01/28/23 08:00 4 01/28/23 07:09 4 Laboratory Results 01/28/23 10:59 01/28/23 10:59 PG Care Time/CCT Total # of Minutes Spent Total Time Spent with Patient: Total time spent is greater than 50% in coordination of care (as documented) at patient's floor/unit and/or counseling patient: Coding Level of Care Code 77543 SUB INP/OBS CARE 3/50MIN Diagnoses Severe sepsis A41.9; R65.20 Acute hypoxemic respiratory failure J96.01 COPD (chronic obstructive pulmonary disease) 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 Multifocal atrial tachycardia I47.1 Elevated troponin R77.8 Acute on chronic kidney failure N17.9; N18.9 (HFpEF) heart failure with preserved ejection fraction I50.30 Urinary tract infection N39.0; R31.9 Hematuria presence: with hematuria Urinary tract infection type: site unspecified PRISCILA (obstructive sleep apnea) G47.33 GERD (gastroesophageal reflux disease) K21.9 Esophagitis presence: esophagitis presence not specified Hypothyroidism E03.9 Hypothyroidism type: unspecified (3) COPD (chronic obstructive pulmonary disease) COPD type: emphysema Emphysema type: unspecified Qualified Code(s): J43.9 - Emphysema, unspecified (8) Urinary tract infection Hematuria presence: with hematuria Urinary tract infection type: site unspecified Qualified Code(s): N39.0 - Urinary tract infection, site not specified; R31.9 - Hematuria, unspecified (10) GERD (gastroesophageal reflux disease) Esophagitis presence: esophagitis presence not specified Qualified Code(s): K21.9 - Gastro-esophageal reflux disease without esophagitis (11) Hypothyroidism Hypothyroidism type: unspecified Qualified Code(s): E03.9 - Hypothyroidism, unspecified
[2023-01-29] MEDS: FUROSEMIDE 40 MG/4 ML VIAL IV SCH ×2 (05:40→18:00)
[2023-01-29] MEDS: LEVOTHYROXINE SODIUM 150 MCG TABLET PO SCH (05:41)
--- NOTE | 2023-01-29 07:13 | XRay Report ---
XR chest 1V portable HISTORY: 87 years-old Male CHF acute shortness of breath COMPARISON: 01/27/2023 TECHNIQUE: AP view of the chest FINDINGS: Cardiac silhouette is enlarged. Pulmonary vascular congestion with interstitial coarsening. Bibasilar opacities are again noted with mildly progressed focal density within the right midlung. No pneumoth orax. Small pleural effusions. Emphysema. Degenerative changes of the shoulders and spine. IMPRESSION: 1. Cardiomegaly with pulmonary edema again noted. 2. Small pleural effusions with bibasilar atelectasis. 3. Mildly progressed right midlung opacity may represent asymmetric pulmonary edema versus pneumonia. 4. Emphysema. ACT 112: Negative or not required by law. The above report was generated using voice recognition software. It may contain grammatical, syntax o r spelling errors. Electronically signed by: Denver Will M.D. 01/29/2023 7:11 AM
[2023-01-29] MEDS: PIPERACILLIN/TAZOBACTAM 4.5 GM in DEXTROSE 5% 100 ML IV SCH ×3 (07:57→23:27)
[2023-01-29 08:04] LABS: Basophils # (auto) 0.04 K/uL (0-0.2); Basophils % (auto) 0.4 %; Eosinophils # (auto) 0.46 K/uL (0-0.50); Eosinophils % (auto) 4.8 %; Hematocrit (blood only) 37.7 % (42.0-52.0); Hemoglobin 11.9 g/dl (14.0-18.0); Immature Granulocytes # (auto) 0.12 K/uL (0.01-0.20); Immature Granulocytes % (auto) 1.3 %; Lymphocytes # (auto) 1.14 K/uL (1.2-3.4); Lymphocytes % (auto) 11.9 %; Mean Corpuscular Hemoglobin 26.4 pg (25.0-34.0); Mean Corpuscular Hgb Conc 31.6 g/dL (32.0-36.0); Mean Corpuscular Volume 83.6 fL (80.0-100.0); Monocytes # (auto) 1.15 K/uL (0.11-0.59); Neutrophils # (auto) 6.67 K/uL (1.40-6.50); Neutrophils % (auto) 69.6 %; Platelet Count 301 K/uL (130-400); RDW Coefficient of Variation 16.7 % (11.5-14.5); RDW Standard Deviation 50.6 fL (36.4-46.3); Red Blood Count 4.51 M/uL (4.70-6.10); White Blood Count 9.58 K/ul (4.8-10.8)
[2023-01-29] MEDS: POLYETHYLENE (MIRALAX) 17 GM PACK PO SCH (08:04)
[2023-01-29] MEDS: guaiFENesin 600 MG TABCR PO SCH ×2 (08:05→20:38)
[2023-01-29] MEDS: POTASSIUM CHLORIDE CRTAB 20 MEQ TABCR PO SCH (08:06)
[2023-01-29] MEDS: PANTOprazole 40 MG TAB PO SCH (08:06)
[2023-01-29] MEDS: UMECLIDINIUM BROMIDE 62.5MCG/BLISTER 7 PUFFS/INHALER INH SCH (08:06)
[2023-01-29] MEDS: HEPARIN SOD 5,000 UNIT/0.5 ML VIAL SQ SCH ×2 (08:07→20:39)
[2023-01-29] MEDS: FLUTICASONE/VILANTEROL 100/25MCG 14 PUFFS/INHALER INH SCH (08:07)
[2023-01-29] MEDS: dilTIAZem HCL 180 MG CAPCR PO SCH (08:07)
[2023-01-29 08:18] LABS: Calcium 8.9 mg/dl (8.6-10.3); Creatinine Clr Calc Pharmacy 25.2 ml/min; Est GFR (African American) 28.9 ml/min; Est GFR (Non-African American) 24.9 ml/min; Potassium 3.6 mmol/L (3.5-5.1)
--- NOTE | 2023-01-29 15:46 | Hospitalist Progress Note ---
Date of Service January 29, 2023 Assessment & Plan (1) Severe sepsis: Plan: Possible on admission. Now resolved. Blood and urine cultures are negative. He may have underlying pneumonia. He currently is on intravenous Zosyn. We will switch to oral Augmentin at discharge. Chest CT scan without contrast on January 27 revealed bilateral opacities suspicious for pneumonia with atelectasis and emphysema and evidence of pulmonary arterial hypertension. (2) Acute hypoxemic respiratory failure: Plan: Appears to be primarily due to acute exacerbation of chronic diastolic CHF. Diuresis underway with intravenous Lasix. Wean down oxygen as tolerated. Serial chest x-ray. Monitor intake and output. Improved (3) COPD (chronic obstructive pulmonary disease): Plan: Acute exacerbation of COPD from CHF and possible underlying pneumonia. Currently treating both. Nebulizer treatments as needed. Chest CT scan completed on January 27 (4) Multifocal atrial tachycardia: Plan: Telemetry. Appreciate cardiology consultation and recommendations. Heparin drip has been discontinued. He is now on diltiazem which has been uptitrated (5) Elevated troponin: Plan: No evidence of ACS on EKG. No chest pain/pressure. Suspect demand ischemia related to exacerbation of COPD, CHF, possible pneumonia (6) Acute on chronic kidney failure: Plan: Creatinine up slightly to 2.2. Will monitor intake and output. Serial labs. Renally dose medications, hold nephrotoxins (7) (HFpEF) heart failure with preserved ejection fraction: Plan: Acute exacerbation. Echo 01/24/2023: LVEF 55-60%. Currently on IV Lasix. Monitor intake and output. Serial chest x-ray. Improving (8) Urinary tract infection: Plan: Ruled out. Urine culture negative. Cystoscopy 01/19/2023: Pendulous urethra with strictures, strictures were dilated at that time. BPH present. Patient with Carrero placed, was to maintain for 1 week and then follow-up with urology for removal/PVR. Carrero catheter removed today, January 29. Will straight cath as needed (9) PRISCILA (obstructive sleep apnea): Plan: CPAP nightly (10) GERD (gastroesophageal reflux disease): Plan: PPI daily (11) Hypothyroidism: Plan: Continue home levothyroxine Plan Probable discharge to [place] care tomorrow, January 30 Admission and Anticipated Discharge Date Admission Date: January 24, 2023 Subjective Alert and oriented. CHF continues to improve. He remains on 4 L oxygen and this will be weaned down as tolerated. Carrero catheter will be removed and trial of voiding commence. He will be switched to oral Bumex at discharge hopefully tomorrow to [facility], January 30. He is currently on intravenous Zosyn which will be switched to oral antibiotic at discharge Review of Systems Review of Systems: Constitutional-no fever or chills ENT-no blurred vision, no double vision, no epistaxis, no sore throat Respiratory-no cough, no wheezing. Shortness of breath with minimal exertion. Orthopnea Cardiac-no palpitations, no chest pain, no syncope GI-no nausea, vomiting, diarrhea, melena, hematochezia -no urinary retention, no urinary incontinence, no dysuria, no hematuria Musculoskeletal-no joint pain, no muscle tenderness Skin-no bruising, no rashes, no pruritus Neuro-no isolated weakness, no paresthesia, no weakness Psych-no depression, no anxiety Physical Exam Physical Exam: General-alert and oriented x3, no fevers, no chills HEENT-head atraumatic and normocephalic, pupils equal and reactive to light, extraocular muscles intact Neck-no lymphadenopathy or thyromegaly, trachea midline Chest-bibasilar inspiratory rales. No rhonchi. No wheezing Cardiac-irregular rhythm. Tachycardia. Normal S1 and S2 Abdomen-normal bowel sounds, nontender, no hepatosplenomegaly Extremities-mild peripheral edema bilateral lower extremities GUFoley catheter in place Neuro-cranial nerves II through XII intact, motor and sensory function within normal limits, strength symmetrical , no focal deficits Psych-normal affect, normal mood Results & Data Results & Data Vital Signs (Past 12 Hours) Vital Signs Temp Pulse Resp BP Pulse Ox O2 Del Method O2 Flow Rate 01/29/23 08:00 Nasal Cannula 4 01/29/23 07:09 36.6 C 82 18 122/79 96 Nasal Cannula 4 Laboratory Results 01/29/23 07:13 01/29/23 07:13 PG Care Time/CCT Total # of Minutes Spent Total Time Spent with Patient: Total time spent is greater than 50% in coordination of care (as documented) at patient's floor/unit and/or counseling patient: Coding Level of Care Code 24611 SUB INP/OBS CARE 3/50MIN Diagnoses Severe sepsis A41.9; R65.20 Acute hypoxemic respiratory failure J96.01 COPD (chronic obstructive pulmonary disease) 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 Multifocal atrial tachycardia I47.1 Elevated troponin R77.8 Acute on chronic kidney failure N17.9; N18.9 (HFpEF) heart failure with preserved ejection fraction I50.30 Urinary tract infection N39.0; R31.9 Hematuria presence: with hematuria Urinary tract infection type: site unspecified PRISCILA (obstructive sleep apnea) G47.33 GERD (gastroesophageal reflux disease) K21.9 Esophagitis presence: esophagitis presence not specified Hypothyroidism E03.9 Hypothyroidism type: unspecified (3) COPD (chronic obstructive pulmonary disease) COPD type: emphysema Emphysema type: unspecified Qualified Code(s): J43.9 - Emphysema, unspecified (8) Urinary tract infection Hematuria presence: with hematuria Urinary tract infection type: site unspecified Qualified Code(s): N39.0 - Urinary tract infection, site not specified; R31.9 - Hematuria, unspecified (10) GERD (gastroesophageal reflux disease) Esophagitis presence: esophagitis presence not specified Qualified Code(s): K21.9 - Gastro-esophageal reflux disease without esophagitis (11) Hypothyroidism Hypothyroidism type: unspecified Qualified Code(s): E03.9 - Hypothyroidism, unspecified
[2023-01-29] MEDS: ACETAMINOPHEN 325 MG TAB PO PRN (23:30)
[2023-01-30] MEDS: LEVOTHYROXINE SODIUM 150 MCG TABLET PO SCH (05:30)
[2023-01-30] MEDS: FUROSEMIDE 40 MG/4 ML VIAL IV SCH (05:30)
[2023-01-30] MEDS: PIPERACILLIN/TAZOBACTAM 4.5 GM in DEXTROSE 5% 100 ML IV SCH (08:40)
[2023-01-30] MEDS: dilTIAZem HCL 180 MG CAPCR PO SCH (08:42)
[2023-01-30] MEDS: HEPARIN SOD 5,000 UNIT/0.5 ML VIAL SQ SCH (08:43)
[2023-01-30] MEDS: guaiFENesin 600 MG TABCR PO SCH (08:43)
[2023-01-30] MEDS: POTASSIUM CHLORIDE CRTAB 20 MEQ TABCR PO SCH (08:45)
[2023-01-30] MEDS: UMECLIDINIUM BROMIDE 62.5MCG/BLISTER 7 PUFFS/INHALER INH SCH (08:45)
[2023-01-30] MEDS: POLYETHYLENE (MIRALAX) 17 GM PACK PO SCH (08:45)
[2023-01-30] MEDS: FLUTICASONE/VILANTEROL 100/25MCG 14 PUFFS/INHALER INH SCH (08:46)
[2023-01-30] MEDS: PANTOprazole 40 MG TAB PO SCH (08:46)
[2023-01-30] MEDS: ACETAMINOPHEN 325 MG TAB PO PRN (08:50)
[2023-01-30 10:17] LABS: BUN Creatinine Ratio 17.5 (10-20); Calcium 9.1 mg/dl (8.6-10.3); Creatinine Clr Calc Pharmacy 27.4 ml/min; Est GFR (African American) 31.9 ml/min; Est GFR (Non-African American) 27.5 ml/min; Potassium 3.1 mmol/L (3.5-5.1)
--- NOTE | 2023-01-30 14:00 | Discharge Summary ---
Date of Service January 30, 2023 Admission HPI Per Admitting Provider Isma is an 87-year-old male with a past medical history of COPD, PRISCILA, nocturnal hypoxia on oxygen, hypothyroidism, bronchiectasis, anemia, heart failure preserved ejection fraction, spinal stenosis, hypertension, gout last seen by pulmonology 01/02/23 for sleep disordered breathing, moderate obstructive lung disease, and follow-up of pneumonia following an admission for bronchiectasis with history of pseudomonal pneumonia who presents to the ER with hypotension, tachycardia, tachypnea, and increased oxygen requirements. Patient presented by EMS due to reduced consciousness, difficulty breathing, and slumping over at the table and becoming unresponsive during breakfast. On arrival to ER was hypoxic to 79% with coarse lung sounds and tachypnea, patient was found to be in A-fib which was new. Patient was treated with fluids, cefepime, and Xopenex. ER Lab Review: Leukocytosis of 15.7, increased from last 11.4, with left shift AB.4 5/44/89/HCO3 31 Potassium 3.3 Baseline creatinine appears around 1.3-1.45, admitting creatinine 1.6 Lactate elevated 3.1 High sensitive troponin 587 Procalcitonin 0.22 UA with 3+ leukocyte esterase, bacteria/epis pending BioFire: pending CXR: Cardiomegaly with mild pulmonary edema, left midlung airspace opacity appears new/increased from prior. Patient has had patchy bibasilar chronic densities on past x-rays Blood cultures pending, urine culture pending Sputum 10/06/2022: Pseudomonas aeruginosa without additional resistance Urine culture 11/28/2021: E. coli pansensitive, Pseudomonas with intermediate resistance to levofloxacin Multiple past E. coli urine cultures with pansensitivity Last EKG 12/31/2022: Sinus rhythm with PVCs. Of note computer read of this reported A-fib however P waves were clearly apparent and was consistent with sinus on provider review. Past EKGs reviewed, no prior A-fib appreciated. Poor R wave progression on past EKG Echo 10/05/2022: EF 50-55%, LV normal in size, moderate concentric LVH, RV normal in size and function, grade 1 diastolic dysfunction, no change in LV function compared to 03/2021 Received 1500 cc NSS, cefepime in ER. 30 cc/kg with body weight 36 equal ~1150-1200cc Isma is seen at the beside. He reports last night he felt much more tired' arms and legs like logs and just so tired.' No areas of focal weakness, no numbness and tingling 'just weak all over both arms and legs.' NOrmally no trouble with weakness. Reports in the last 2 weeks his breathing was actually 'not too bed was getting better with the tobramycin supposed to be 28 on and off getting close to 28 on'. Denies increased shortness of breath in the last 2 days. +continued cough, intermittently product for very light green sputum without recent change. Denies fevers, chills, sweats. No chest pain at any point. Denies palpitations/fluttering in chest. 'No afib that I've been told'. Is not on blood thinners. No history of bleeding problems. Denies nausea/vomiting/diarrhea. Reports he has been eating and drinking relatively normally the last few days. Denies dysuria. Has a cather in place which was placed by urology as outpatient. Is not sure if the output has changed at all. Was to followup for voiding trial this coming week. Feels better than when he came in, still feels very tired. No recent increase in leg swelling recently, has compression stockings on. No recent salt loads. Medical History: Reviewed Medications: Reviewed Surgical History: Reviewed Family history: Reviewed Allergies: Reviewed Social History: Denies tobacco use. Rare single beer use on social occasions, denies regular use. Code Status:Full Code Principal Diagnosis Acute on chronic diastolic CHF, acute on chronic hypoxic respiratory failure, suspected left lower lobe pneumonia, sepsis, acute on chronic kidney disease, multifocal atrial tachycardia Discharge Exam General-alert and oriented x3, no fevers, no chills HEENT-head atraumatic and normocephalic, pupils equal and reactive to light, extraocular muscles intact Neck-no lymphadenopathy or thyromegaly, trachea midline Chest-bibasilar inspiratory rales. No rhonchi. No wheezing Cardiac-irregular rhythm. Tachycardia. Normal S1 and S2 Abdomen-normal bowel sounds, nontender, no hepatosplenomegaly Extremities-mild peripheral edema bilateral lower extremities GUFoley catheter in place Neuro-cranial nerves II through XII intact, motor and sensory function within normal limits, strength symmetrical , no focal deficits Psych-normal affect, normal mood Discharge Data Allergies Allergy/AdvReac Type Severity Reaction Status Date / Time clarithromycin Allergy Intermediate RASH Verified 01/22/23 11:11 Consultations 01/24/23 11:41 ED Decision to Admit Stat 01/25/23 09:47 Consult Cardiology Routine Ordered Studies 01/27/23 13:40 CT chest diagnostic wo con Urgent Hospital Course (1) Severe sepsis: Possible on admission. Now resolved. Blood and urine cultures are negative. He may have underlying pneumonia. He was treated while hospitalized with intravenous Zosyn. We will switch to oral Augmentin at discharge. Chest CT scan without contrast on January 27 revealed bilateral opacities suspicious for pneumonia with atelectasis and emphysema and evidence of pulmonary arterial hypertension. (2) Acute hypoxemic respiratory failure: Appears to be primarily due to acute exacerbation of chronic diastolic CHF. Diuresed with intravenous Lasix. Weaning down oxygen as tolerated. Serial chest x-ray. Monitor intake and output. Improved (3) COPD (chronic obstructive pulmonary disease): Acute exacerbation of COPD from CHF and possible underlying pneumonia. Currently treating both. Nebulizer treatments as needed. Chest CT scan completed on January 27 (4) Multifocal atrial tachycardia: Telemetry. Appreciate cardiology consultation and recommendations. Heparin drip has been discontinued. He is now on diltiazem which has been uptitrated (5) Elevated troponin: No evidence of ACS on EKG. No chest pain/pressure. Suspect demand ischemia related to exacerbation of COPD, CHF, possible pneumonia (6) Acute on chronic kidney failure: Creatinine up slightly. Will monitor intake and output. Serial labs. Renally dose medications, hold nephrotoxins (7) (HFpEF) heart failure with preserved ejection fraction: Acute exacerbation. Echo 01/24/2023: LVEF 55-60%. Treated while hospitalized with IV Lasix. Monitor intake and output. Serial chest x-ray. Improved (8) Urinary tract infection: Ruled out. Urine culture negative. Cystoscopy 01/19/2023: Pendulous urethra with strictures, strictures were dilated at that time. BPH present. Patient with Carrero placed, was to maintain for 1 week and then follow-up with urology for removal/PVR. Carrero catheter removed on January 29. Will straight cath as needed (9) PRISCILA (obstructive sleep apnea): CPAP nightly (10) GERD (gastroesophageal reflux disease): PPI daily (11) Hypothyroidism: Continue home levothyroxine Plan discharge to [facility] today, January 30 Total Time Total Time Spent Total Time Spent (In Minutes): 45 minutes Discharge Plan Discharge Items Patient Disposition: Transfer Snf Fac Reason For Visit: SEPSIS, SUSPECT UTI DDX INCLUDES PNA Discharge Diagnosis: Acute on chronic diastolic CHF, acute on chronic hypoxic respiratory failure, multifocal atrial tachycardia, acute on chronic kidney disease, suspected left lower lobe pneumonia, sepsis present on admission Activity: Resume your previous activity Non-emergency contact: Primary Care Provider Call non-emergency contact if: you have any medication questions Follow-up/Referrals: Tyler Hawkins MD [Primary Care Provider] - Diet: Regular and Heart Healthy Addtl Attending Provider Instructions: Take Augmentin for 1 week. Oxygen will be weaned down to baseline as tolerated Pending Studies at Discharge: No Stand-Alone Forms: My [facility] Skilled Items Patient informed of condition?: Yes DNR: Yes Discharge Level of Care: Skilled Communicable Disease: No Discharge Prognosis: Stable Lines: None Urinary Catheter: No Medications and DC Order Prescriptions: New amoxicillin-pot clavulanate 875-125 mg tablet 1 tab PO BID Qty: 14 0RF polyethylene glycol 3350 [Miralax] 17 gram Powder In Packet 17 g PO DAILY Qty: 0 0RF Continued promethazine-DM 6.25-15 mg/5 mL syrup 5 ml PO Q6H PRN (Reason: cough) Qty: 473 0RF levothyroxine 150 mcg tablet 150 mcg PO QAM Qty: 90 3RF diltiazem HCl [Tiazac] 180 mg capsule,extended release 24 hr 180 mg PO QAM 90 Days Qty: 90 3RF Trelegy Ellipta 100-62.5-25 mcg blister with device 1 inh INH QAM Qty: 3 3RF oxycodone 5 mg tablet 2.5 mg PO Q4H PRN (Reason: Pain) Qty: 30 0RF finasteride 5 mg tablet 5 mg PO DAILY Qty: 30 11RF tamsulosin 0.4 mg capsule 0.4 mg PO DAILY Qty: 30 2RF sodium chloride 3 % solution for nebulization 4 ml inhalation BID Qty: 120 3RF Rx Instructions: 28 days on, 28 days off tobramycin in 0.225 % NaCl [Josue] 300 mg/5 mL solution for nebulization 300 mg inhalation BID 28 Days Qty: 280 0RF Rx Instructions: separate doses by at least 6 hours ciclopirox 8 % solution 1 applic topical DAILY Qty: 6.6 4RF Rx Instructions: Apply to affected nails daily. Do not wash nails for 8hr post application. Remove w/alcohol every 7 days diclofenac sodium 1 % gel 2 g topical QID Rx Instructions: apply to single elbow, wrist or hand; for hand includes palm/fingers/back of hand mupirocin 2 % ointment 1 applic topical BID Qty: 22 0RF potassium chloride 20 mEq tablet,ER particles/crystals 20 meq PO DAILY Qty: 72 3RF bumetanide 2 mg tablet 2 mg PO BID Rx Instructions: May increase to 4 mg BID PRN for weight gain, edema, SOB sennosides [Senokot] 8.6 mg tablet 8.6 mg PO QAM (DME) Oxygen Home Liters Per Minute See Rx Instructions .Route Rx Instructions: As directed magnesium 250 mg Tablet 250 mg PO [id number] Rx Instructions: Thursday,Thursday,Thursday cholecalciferol (vitamin D3) 1,000 unit (25 mcg) tablet 1,000 units PO QAM multivitamin Tablet 1 tab PO QAM acetaminophen [Tylenol Extra Strength] 500 mg Tablet 1,000 mg PO Q6 PRN (Reason: Pain) ipratropium-albuterol 0.5 mg-3 mg(2.5 mg base)/3 mL Solution For Nebulization 3 ml NEB Q6H PRN (Reason: cough/wheeze/dyspnea) Qty: 1 0RF albuterol sulfate [Ventolin HFA] 90 mcg/actuation HFA aerosol inhaler 2 puff inhalation Q6H Qty: 8.5 5RF omeprazole 40 mg capsule,delayed release(DR/EC) 40 mg PO DAILY Discharge Orders: Discharge Order- CHF (Routine); Ordered 01/30/23 Ordered By: Sukhjinder Cheung Admission Data Admit Date/Time: 01/24/23 12:19 Attending Provider: Sukhjinder Cheung Admit Provider: Tony Mcqueen Primary Care Provider: Tyler Hawkins Other Providers: Tony Mcqueen ; Refugio Lynch ; [place],Care Coding Level of Care Code 72236 INP/OBS DISCH >30 MIN Diagnoses Severe sepsis A41.9; R65.20 Acute hypoxemic respiratory failure J96.01 COPD (chronic obstructive pulmonary disease) 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 Multifocal atrial tachycardia I47.1 Elevated troponin R77.8 Acute on chronic kidney failure N17.9; N18.9 (HFpEF) heart failure with preserved ejection fraction I50.30 Urinary tract infection N39.0; R31.9 Hematuria presence: with hematuria Urinary tract infection type: site unspecified PRISCILA (obstructive sleep apnea) G47.33 GERD (gastroesophageal reflux disease) K21.9 Esophagitis presence: esophagitis presence not specified Hypothyroidism E03.9 Hypothyroidism type: unspecified
[2023-01-30] MEDS ORDERED: POTASSIUM CHLORIDE CRTAB 20 MEQ TABCR PO SCH (21:00)
== END 2023-01-30 16:56 | DRG 871 ==
LOC: ED 09:25 → 4W 12:19 → SUATTDRO 12:19 → 4W 12:46

== ENCOUNTER 2023-02-11 18:52 | Inpatient (IN) ==
[2023-02-11] MEDS ORDERED: ALBUT/IPRATROP 3MG/0.5MG NEB 3 ML VIAL NEB STA (18:56)
--- NOTE | 2023-02-11 19:02 | Emergency Department Note ---
Impression & Plan Hypoxia ADMIT ED Provider Note HPI: The patient is an 87-year-old gentleman with history of diastolic CHF, nocturnal hypoxia on oxygen at night with 2 L nasal cannula, COPD, presents emergency department with chief complaint of shortness of breath that been worsening t hroughout the afternoon today. Patient states that his shortness of breath got acutely worse when he was ambulating to the restroom earlier today at [facility]. EMS was contacted and per their report, patient was hypoxic in the 60s on nasal cannula on their arrival, he was placed on a nonrebreather mask with good improvement however remained with increased work of breathing and tachypnea and therefore was switched to CPAP. On my initial assessment here in the ED patient states that his breathing feels much improved and now on a BiPAP mask. He is saturating in the 90s on BiPAP with slight tachypnea but improved work of breathing per EMS. Patient denies any chest pain. ROS: - Per HPI *Outpatient medications and allergy history reviewed. *Pertinent external medical records reviewed. PE: General: Alert, mild distress secondary to increased work of breathing, on BiPAP HEENT: Normocephalic, trachea midline Eyes: Extraocular eye movement is intact, no scleral erythema Pulmonary: Coarse breath sounds with bilateral expiratory wheezing, tachypnea Cardio: Tachycardic rate with regular rhythm GI: Abdomen is soft to palpation : No suprapubic tenderness MSK: No evidence of trauma or malformation of the extremities, no edema Skin: No evidence of rash Neuro: Alert, no focal deficits Psychiatric: Cooperative monitoring coordinator: (As interpreted by myself): - An order was placed for continuous cardiac monitoring - Patient was noted to be in sinus rhythm with a rate of 114 EKG: (As interpreted by myself): Rate: 136 Rhythm: Sinus tachycardia Intervals: Within normal limits ST changes: No ST elevation Time: 185 Interventions provided in ED: -IV Solu-Medrol, DuoNeb breathing treatment Differential Diagnosis: Sepsis secondary to pneumonia, COVID-19 infection with hypoxia, bacterial pneumonia, viral upper respiratory infection with hypoxia, COPD exacerbation with hypoxia, CHF exacerbation with hypoxia, ACS, amongst other potential pathologies. Medical Decision Making: The patient is an 87-year-old gentleman who presented to the emergency department in respiratory distress, stabilized on CPAP via EMS in route. On arrival here to the ED the patient exhibits coarse bilateral breath sounds with wheezing, his work of breathing is improved on CPAP and his oxygen saturation is in the high 90s. IV was established and lab work obtained, patient was maintained on site monitor. Lab work shows no leukocytosis, hemoglobin is stable at 11.6, platelet count is within normal limits, venous blood gas shows compensated pH at 7.38, PCO2 is slightly elevated at 62, CMP shows serum bicarbonate level at 33 suggesting metabolic compensation, troponin is elevated at 435, patient denies chest pain, this is actually downtrending from his discharge troponin levels from his last admission for sepsis earlier this month. BNP is only slightly elevated at 158. Chest x-ray shows a pattern of what appears to be multifocal pneumonia, COVID-19 testing returned positive. I suspect this is the source of the patient's symptoms. No leukocytosis, will avoid IV antibiotics at this time over low suspicion for infection without fever or leukocytosis and COVID-19 positive status. We will send procalcitonin. On my reassessment patient is much more comfortable on BiPAP, he is without increased work of breathing and his wheezing is improved. He was started on IV steroids for COVID-19 infection with hypoxia. [facility] hospitalist service was consulted for admission. Consultants: Hospitalist service, Dr. Menchaca Disposition discussion held by myself with: Patient * CRITICAL CARE TIME: ( 50 ) minutes -Stabilization of hypoxia with oxygen saturations in the low 70s on supplemental oxygen via EMS requiring noninvasive positive pressure ventilation for improvement, time spent at the bedside, interpretation of diagnostic studies, arrangement of admission Diagnosis: 1. Hypoxia, acute 2. COVID-19 infection, acute 3. COPD exacerbation with hypoxia 4. Elevated high-sensitivity troponin level Disposition: Admission Jose Schmidt DO Emergency Medicine Past Med/Surg History Medical History Acute and chronic respiratory failure Acute on chronic diastolic (congestive) heart failure Acute on chronic diastolic (congestive) heart failure Acute on chronic kidney failure Avulsion injury of right elbow region Back problem BPH (benign prostatic hyperplasia) Candidal diaper rash Cellulitis Cellulitis Cellulitis Cellulitis of both lower extremities Cellulitis of left leg Cellulitis of left lower extremity CHI (closed head injury) Chronic obstructive pulmonary disease Chronic respiratory failure with hypoxia Closed hip fracture Contusion of elbow Contusion of face COPD (chronic obstructive pulmonary disease) Early satiety Elevated troponin Fluid retention in legs GERD (gastroesophageal reflux disease) Hematoma of right lower extremity History of bronchitis History of cellulitis Hypernatremia Hypertension Hypothyroidism Hypothyroidism (acquired) Left lumbar radiculopathy Leg length discrepancy Livedo reticularis Lumbar spinal stenosis Lymphedema MRSA (methicillin resistant Staphylococcus aureus) On home oxygen therapy PRISCILA (obstructive sleep apnea) Osteoarthritis Osteoporosis, unspecified Personal history of MRSA (methicillin resistant Staphylococcus aureus) Pulmonary edema Pulmonary nodule Sepsis Sepsis Skin tear Sleep apnea Spinal stenosis Syncope Urethral stricture Vitamin D deficiency Surgical History History of cardiac cath History of cholecystectomy History of colonoscopy History of herniorrhaphy History of partial knee replacement History of tonsillectomy History of tooth extraction Hx of surgical procedure Family History Mother Cerebral atherosclerosis Father Diverticulosis Other No significant family history Denies family history of Ovarian cancer Prostate cancer Myocardial infarction Breast cancer Colorectal cancer Social History Smoking Status: Former smoker Tobacco Type: Cigarettes Age Started Using Tobacco: 22; packs per day: 1; Cigarettes Per Day: 20; Second Hand Exposure: No; Do You Dip or Chew Tobacco: No; Hx Alcohol Use: Yes Alcohol type: beer Hx Substance Use: Yes Last Used Substance: Unknown Last Used Substance Other:: medical marijuana Preferred Language: Malaysian Communication Ability: Effective Visual Impairment: No Limitations Hearing Ability: Normal Ink Technician Required: No Beliefs That Will Affect Care: None marital status: Current Living Situation: Spouse current occupational status: retired Feels Safe at Home: Yes Dental Care, Regularly: No Physical Activity Frequency: 1-2 Times per Week Seatbelt Use: always Sunscreen Use: Yes Assistive Devices: Denture - Upper, Denture - Lower, Glasses, Hearing Aid - Bilateral, Nebulizer, Oxygen - at Night and Walker Allergies Allergies Allergy/AdvReac Type Severity Reaction Status Date / Time clarithromycin Allergy Intermediate RASH Verified 02/11/23 20:47 Home Meds Home Medications Medication Instructions Recorded Confirmed magnesium 250 mg tablet 250 mg PO 3XWK 08/02/18 02/11/23 cholecalciferol (vitamin D3) 25 1,000 units PO QAM 05/30/19 02/11/23 mcg (1,000 unit) tablet multivitamin 1 tab PO QAM 09/04/20 02/11/23 diclofenac sodium 1 % topical gel 2 g topical QID 10/23/22 02/11/23 omeprazole 40 mg capsule,delayed 40 mg PO DAILY 11/05/22 02/11/23 release Oxygen Home 12/31/22 02/11/23 bumetanide 2 mg tablet 2 mg PO BID 12/31/22 02/11/23 sennosides 8.6 mg tablet (Senokot) 8.6 mg PO QAM 12/31/22 02/11/23 acetaminophen 325 mg tablet 650 mg PO Q6H PRN FEVER/PAIN 02/11/23 02/11/23 (Tylenol) polyethylene glycol 3350 17 gram 17 g PO DAILY PRN Constipation 02/11/23 02/11/23 oral powder packet (Miralax) tamsulosin 0.4 mg capsule 0.4 mg PO HS 02/11/23 02/11/23 Previous Rx's Medication Instructions Recorded promethazine-DM 6.25 mg-15 mg/5 mL 5 ml PO Q6H PRN cough #473 mL 09/24/21 oral syrup levothyroxine 150 mcg tablet 150 mcg PO QAM #90 tabs 02/03/22 diltiazem HCl 180 mg capsule,24 180 mg PO QAM 90 days #90 caps 04/22/22 hr,extended release (Tiazac) fluticasone fur. 100 mcg-umeclid 1 inh inhalation QAM #3 Inhalers 08/26/22 62.5 mcg-vilant 25 mcg inhalat.powder (Trelegy Ellipta) albuterol sulfate 90 mcg/actuation 2 puff inhalation Q6H #8.5 grams 10/17/22 aerosol inhaler (Ventolin HFA) ipratropium 0.5 mg-albuterol 3 mg 3 ml NEB Q6H PRN 10/17/22 (2.5 mg base)/3 mL nebulization cough/wheeze/dyspnea #1 box soln mupirocin 2 % topical ointment 1 applic topical BID #22 grams 11/10/22 oxycodone 5 mg tablet 2.5 mg PO Q4H PRN Pain #30 tabs 11/20/22 potassium chloride 20 mEq 20 meq PO DAILY #72 tabs 12/12/22 tablet,extended release(part/cryst) sodium chloride 3 % for 4 ml inhalation BID #120 mL 01/02/23 nebulization ciclopirox 8 % topical solution 1 applic topical DAILY #6.6 mL 01/15/23 finasteride 5 mg tablet 5 mg PO DAILY #30 tabs 01/21/23 tobramycin 300 mg/5 mL in 0.225 % 300 mg (5 mL) inhalation BID 28 02/02/23 sodium chloride for nebulization days #280 mL (Josue) Results & Data (ED) Vital Signs Vital Signs - 24 hr 02/11/23 19:06 02/11/23 19:14 02/11/23 19:25 Pulse Rate 143 H 145 H Pulse Rate [Apical] Pulse Rate from SpO2 Sensor 133 H Pulse Rhythm [Apical] Respiratory Rate 23 32 H Respiratory Effort / Characteristics Non-Labored Spontaneous Non-Labored Spontaneous Respiratory Depth Respiratory Pattern Regular Blood Pressure 148/94 H Blood Pressure [Right Arm] Blood Pressure Mean 112 Blood Pressure Mean [Right Arm] Blood Pressure Position Semi-fowlers Blood Pressure Position [Right Arm] Pulse Oximetry 97 98 Oxygen Delivery Method CPAP CPAP CPAP Fraction of Inspired Oxygen Sepsis Recent Fever Within 48 Hours Yes Sepsis New/Unexplained Change in Mental Status N/A Sepsis Action Taken by Nursing Previously Notified 02/11/23 19:29 02/11/23 19:00 02/11/23 19:06 Pulse Rate 150 H Pulse Rate [Apical] Pulse Rate from SpO2 Sensor Pulse Rhythm [Apical] Respiratory Rate 28 H 28 H Respiratory Effort / Characteristics Spontaneous Short of Breath Spontaneous Short of Breath Respiratory Depth Deep Respiratory Pattern Tachypnea Blood Pressure Blood Pressure [Right Arm] Blood Pressure Mean Blood Pressure Mean [Right Arm] Blood Pressure Position Blood Pressure Position [Right Arm] Pulse Oximetry 99 100 100 Oxygen Delivery Method CPAP BiPAP Fraction of Inspired Oxygen 40 40 Sepsis Recent Fever Within 48 Hours Sepsis New/Unexplained Change in Mental Status Sepsis Action Taken by Nursing 02/11/23 20:50 Pulse Rate Pulse Rate [Apical] 143 H Pulse Rate from SpO2 Sensor Pulse Rhythm [Apical] Regular Respiratory Rate 23 Respiratory Effort / Characteristics Respiratory Depth Respiratory Pattern Blood Pressure Blood Pressure [Right Arm] 132/91 Blood Pressure Mean Blood Pressure Mean [Right Arm] 104 Blood Pressure Position Blood Pressure Position [Right Arm] Semi-fowlers Pulse Oximetry 95 Oxygen Delivery Method CPAP Fraction of Inspired Oxygen Sepsis Recent Fever Within 48 Hours Sepsis New/Unexplained Change in Mental Status Sepsis Action Taken by Nursing Laboratory Data 02/11/23 19:00 02/11/23 19:00 Lab Results 02/11/23 02/11/23 02/11/23 Range/Units 19:00 19:00 19:00 WBC 10.53 (4.8-10.8) K/ul RBC 4.50 L (4.70-6.10) M/uL Hgb 11.6 L (14.0-18.0) g/dl Hct 37.9 L (42.0-52.0) % MCV 84.2 (80.0-100.0) fL MCH 25.8 (25.0-34.0) pg MCHC 30.6 L (32.0-36.0) g/dL RDW Std Deviation 50.1 H (36.4-46.3) fL RDW Coeff of Jordan 16.3 H (11.5-14.5) % Plt Count 313 (130-400) K/uL MPV 12.1 (9.4-12.4) fL Immature Gran % (Auto) 0.5 % Neut % (Auto) 84.4 % Lymph % (Auto) 4.9 % Arroyo % (Auto) 8.5 % Eos % (Auto) 1.5 % Baso % (Auto) 0.2 % Neut # (Auto) 8.89 H (1.40-6.50) K/uL Lymph # (Auto) 0.52 L (1.2-3.4) K/uL Arroyo # (Auto) 0.89 H (0.11-0.59) K/uL Eos # (Auto) 0.16 (0-0.50) K/uL Baso # (Auto) 0.02 (0-0.2) K/uL Immature Gran # (Auto) 0.05 (0.01-0.20) K/uL PT 10.9 (9.0-12.0) Seconds INR 1.0 (0.9-1.1) VBG pH (7.36-7.41) VBG pCO2 (38-50) mmHg VBG pO2 mmHg VBG HCO3 mmol/L VBG O2 Saturation % VBG Base Excess mEq/L Sodium (136-145) mmol/L Potassium (3.5-5.1) mmol/L Chloride (98-107) mmol/L Carbon Dioxide (21-32) mmol/L Anion Gap (3-11) BUN (6-23) mg/dl Creatinine (0.6-1.4) mg/dl Est Cr Clr Drug Dosing ml/min Est GFR ( Amer) ml/min Est GFR (Non-Af Amer) ml/min BUN/Creatinine Ratio (10-20) Glucose (70-99(Fasting)) mg/dl Calcium (8.6-10.3) mg/dl Total Bilirubin (0.2-1.0) mg/dl AST (13-39) U/L ALT (7-52) U/L Alkaline Phosphatase (34-104) U/L Troponin I High Sens (0-20) pg/ml B-Natriuretic Peptide 158 H (0-100) pg/ml Total Protein (6.0-8.3) gm/dl Albumin (3.4-5.0) gm/dl Globulin (2.5-4.0) gm/dl Albumin/Globulin Ratio (0.9-2) Urine Color Urine Appearance (Clear) Urine pH (4.5-7.5) Ur Specific Beverly (1.000-1.030) Urine Protein (Negative) Urine Glucose (UA) (Negative) Urine Ketones (Negative) Urine Blood (Negative) Urine Nitrite (Negative) Urine Bilirubin (Negative) Urine Urobilinogen (Negative) Ur Leukocyte Esterase (Negative) Urine WBC (Auto) (0-5) /hpf Urine RBC (Auto) (0-4) /hpf U Hyaline Cast (Auto) (0-5) /lpf U Epithel Cells (Auto) (0-5) /lpf Urine Bacteria (Auto) (Negative) SARS-CoV-2 (PCR) (Negative) Influenza Type A (PCR) (Neg) Influenza Type B (PCR) (Neg) RSV (RT-PCR) (Neg) 02/11/23 02/11/23 02/11/23 Range/Units 19:00 19:12 19:16 WBC (4.8-10.8) K/ul RBC (4.70-6.10) M/uL Hgb (14.0-18.0) g/dl Hct (42.0-52.0) % MCV (80.0-100.0) fL MCH (25.0-34.0) pg MCHC (32.0-36.0) g/dL RDW Std Deviation (36.4-46.3) fL RDW Coeff of Jordan (11.5-14.5) % Plt Count (130-400) K/uL MPV (9.4-12.4) fL Immature Gran % (Auto) % Neut % (Auto) % Lymph % (Auto) % Arroyo % (Auto) % Eos % (Auto) % Baso % (Auto) % Neut # (Auto) (1.40-6.50) K/uL Lymph # (Auto) (1.2-3.4) K/uL Arroyo # (Auto) (0.11-0.59) K/uL Eos # (Auto) (0-0.50) K/uL Baso # (Auto) (0-0.2) K/uL Immature Gran # (Auto) (0.01-0.20) K/uL PT (9.0-12.0) Seconds INR (0.9-1.1) VBG pH (7.36-7.41) VBG pCO2 (38-50) mmHg VBG pO2 mmHg VBG HCO3 mmol/L VBG O2 Saturation % VBG Base Excess mEq/L Sodium 139 (136-145) mmol/L Potassium 3.8 (3.5-5.1) mmol/L Chloride 98 (98-107) mmol/L Carbon Dioxide 33 H (21-32) mmol/L Anion Gap 8 (3-11) BUN 25 H (6-23) mg/dl Creatinine 1.63 H (0.6-1.4) mg/dl Est Cr Clr Drug Dosing 35.9 ml/min Est GFR ( Amer) 43.6 ml/min Est GFR (Non-Af Amer) 37.6 ml/min BUN/Creatinine Ratio 15.3 (10-20) Glucose 109 H (70-99(Fasting)) mg/dl Calcium 8.9 (8.6-10.3) mg/dl Total Bilirubin 0.5 (0.2-1.0) mg/dl AST 12 L (13-39) U/L ALT 6 L (7-52) U/L Alkaline Phosphatase 58 (34-104) U/L Troponin I High Sens 435.7 H* (0-20) pg/ml B-Natriuretic Peptide (0-100) pg/ml Total Protein 7.4 (6.0-8.3) gm/dl Albumin 3.3 L (3.4-5.0) gm/dl Globulin 4.1 H (2.5-4.0) gm/dl Albumin/Globulin Ratio 0.8 L (0.9-2) Urine Color Yellow Urine Appearance Clear (Clear) Urine pH 6.0 (4.5-7.5) Ur Specific Beverly 1.010 (1.000-1.030) Urine Protein Negative (Negative) Urine Glucose (UA) Negative (Negative) Urine Ketones Negative (Negative) Urine Blood Negative (Negative) Urine Nitrite Negative (Negative) Urine Bilirubin Negative (Negative) Urine Urobilinogen Negative (Negative) Ur Leukocyte Esterase Trace H (Negative) Urine WBC (Auto) 1-5 (0-5) /hpf Urine RBC (Auto) 0-4 (0-4) /hpf U Hyaline Cast (Auto) 1-5 (0-5) /lpf U Epithel Cells (Auto) 5-10 H (0-5) /lpf Urine Bacteria (Auto) Negative (Negative) SARS-CoV-2 (PCR) POSITIVE A* (Negative) Influenza Type A (PCR) Negative (Neg) Influenza Type B (PCR) Negative (Neg) RSV (RT-PCR) Negative (Neg) 02/11/23 Range/Units 19:18 WBC (4.8-10.8) K/ul RBC (4.70-6.10) M/uL Hgb (14.0-18.0) g/dl Hct (42.0-52.0) % MCV (80.0-100.0) fL MCH (25.0-34.0) pg MCHC (32.0-36.0) g/dL RDW Std Deviation (36.4-46.3) fL RDW Coeff of Jordan (11.5-14.5) % Plt Count (130-400) K/uL MPV (9.4-12.4) fL Immature Gran % (Auto) % Neut % (Auto) % Lymph % (Auto) % Arroyo % (Auto) % Eos % (Auto) % Baso % (Auto) % Neut # (Auto) (1.40-6.50) K/uL Lymph # (Auto) (1.2-3.4) K/uL Arroyo # (Auto) (0.11-0.59) K/uL Eos # (Auto) (0-0.50) K/uL Baso # (Auto) (0-0.2) K/uL Immature Gran # (Auto) (0.01-0.20) K/uL PT (9.0-12.0) Seconds INR (0.9-1.1) VBG pH 7.38 (7.36-7.41) VBG pCO2 62 H (38-50) mmHg VBG pO2 25 mmHg VBG HCO3 37 mmol/L VBG O2 Saturation < 60.0 % VBG Base Excess 9.5 mEq/L Sodium (136-145) mmol/L Potassium (3.5-5.1) mmol/L Chloride (98-107) mmol/L Carbon Dioxide (21-32) mmol/L Anion Gap (3-11) BUN (6-23) mg/dl Creatinine (0.6-1.4) mg/dl Est Cr Clr Drug Dosing ml/min Est GFR ( Amer) ml/min Est GFR (Non-Af Amer) ml/min BUN/Creatinine Ratio (10-20) Glucose (70-99(Fasting)) mg/dl Calcium (8.6-10.3) mg/dl Total Bilirubin (0.2-1.0) mg/dl AST (13-39) U/L ALT (7-52) U/L Alkaline Phosphatase (34-104) U/L Troponin I High Sens (0-20) pg/ml B-Natriuretic Peptide (0-100) pg/ml Total Protein (6.0-8.3) gm/dl Albumin (3.4-5.0) gm/dl Globulin (2.5-4.0) gm/dl Albumin/Globulin Ratio (0.9-2) Urine Color Urine Appearance (Clear) Urine pH (4.5-7.5) Ur Specific Beverly (1.000-1.030) Urine Protein (Negative) Urine Glucose (UA) (Negative) Urine Ketones (Negative) Urine Blood (Negative) Urine Nitrite (Negative) Urine Bilirubin (Negative) Urine Urobilinogen (Negative) Ur Leukocyte Esterase (Negative) Urine WBC (Auto) (0-5) /hpf Urine RBC (Auto) (0-4) /hpf U Hyaline Cast (Auto) (0-5) /lpf U Epithel Cells (Auto) (0-5) /lpf Urine Bacteria (Auto) (Negative) SARS-CoV-2 (PCR) (Negative) Influenza Type A (PCR) (Neg) Influenza Type B (PCR) (Neg) RSV (RT-PCR) (Neg) Administered Medications Discontinued Medications Albuterol (Albut/Ipratrop 3mg/0.5mg Neb 3 Ml Vial) 3 ml NEB NOW STA; Protocol Stop: 02/11/23 18:57 Last Admin: 02/11/23 19:06 Dose: 3 ml Documented By: HMR Methylprednisolone (Methylprednisolone 125 Mg/2 Ml Vial) 125 mg IV NOW STA Stop: 02/11/23 19:54 Last Admin: 02/11/23 20:03 Dose: 125 mg Documented By: AB Discharge Plan Visit Data Chief Complaint: Shortness of Breath/Dyspnea Stated Complaint: SHORTNESS OF BREATH ED Provider: Jose Schmidt Discharge Problem: Hypoxia Forms Stand Alone Forms: [facility] Prescriptions Prescriptions: No Action promethazine-DM 6.25-15 mg/5 mL syrup 5 ml PO Q6H PRN (Reason: cough) Qty: 473 0RF levothyroxine 150 mcg tablet 150 mcg PO QAM Qty: 90 3RF diltiazem HCl [Tiazac] 180 mg capsule,extended release 24 hr 180 mg PO QAM 90 Days Qty: 90 3RF Trelegy Ellipta 100-62.5-25 mcg blister with device 1 inh INH QAM Qty: 3 3RF tobramycin in 0.225 % NaCl [Josue] 300 mg/5 mL solution for nebulization 300 mg inhalation BID 28 Days Qty: 280 5RF Rx Instructions: separate doses by at least 6 hours 28 days on then 28 days off then repeat oxycodone 5 mg tablet 2.5 mg PO Q4H PRN (Reason: Pain) Qty: 30 0RF finasteride 5 mg tablet 5 mg PO DAILY Qty: 30 11RF sodium chloride 3 % solution for nebulization 4 ml inhalation BID Qty: 120 3RF Rx Instructions: 28 days on, 28 days off ciclopirox 8 % solution 1 applic topical DAILY Qty: 6.6 4RF Rx Instructions: Apply to affected nails daily. Do not wash nails for 8hr post application. Remove w/alcohol every 7 days diclofenac sodium 1 % gel 2 g topical QID Rx Instructions: apply to single elbow, wrist or hand; for hand includes palm/fingers/back of hand mupirocin 2 % ointment 1 applic topical BID Qty: 22 0RF potassium chloride 20 mEq tablet,ER particles/crystals 20 meq PO DAILY Qty: 72 3RF bumetanide 2 mg tablet 2 mg PO BID Rx Instructions: May increase to 4 mg BID PRN for weight gain, edema, SOB sennosides [Senokot] 8.6 mg tablet 8.6 mg PO QAM (DME) Oxygen Home Liters Per Minute See Rx Instructions .Route Rx Instructions: As directed magnesium 250 mg Tablet 250 mg PO [id number] Rx Instructions: Thursday,Thursday,Thursday cholecalciferol (vitamin D3) 1,000 unit (25 mcg) tablet 1,000 units PO QAM multivitamin Tablet 1 tab PO QAM ipratropium-albuterol 0.5 mg-3 mg(2.5 mg base)/3 mL Solution For Nebulization 3 ml NEB Q6H PRN (Reason: cough/wheeze/dyspnea) Qty: 1 0RF albuterol sulfate [Ventolin HFA] 90 mcg/actuation HFA aerosol inhaler 2 puff inhalation Q6H Qty: 8.5 5RF omeprazole 40 mg capsule,delayed release(DR/EC) 40 mg PO DAILY acetaminophen [Tylenol] 325 mg Tablet 650 mg PO Q6H PRN (Reason: FEVER/PAIN) polyethylene glycol 3350 [Miralax] 17 gram powder in packet 17 g PO DAILY PRN (Reason: Constipation) tamsulosin 0.4 mg capsule 0.4 mg PO HS Referrals Referrals: Pro,Tyler Gomez MD [Physician] -
[2023-02-11 19:25] LABS: Basophils # (auto) 0.02 K/uL (0-0.2); Basophils % (auto) 0.2 %; Eosinophils # (auto) 0.16 K/uL (0-0.50); Eosinophils % (auto) 1.5 %; Hematocrit (blood only) 37.9 % (42.0-52.0); Hemoglobin 11.6 g/dl (14.0-18.0); Immature Granulocytes # (auto) 0.05 K/uL (0.01-0.20); Immature Granulocytes % (auto) 0.5 %; Lymphocytes # (auto) 0.52 K/uL (1.2-3.4); Lymphocytes % (auto) 4.9 %; Mean Corpuscular Hemoglobin 25.8 pg (25.0-34.0); Mean Corpuscular Hgb Conc 30.6 g/dL (32.0-36.0); Mean Corpuscular Volume 84.2 fL (80.0-100.0); Mean Platelet Volume 12.1 fL (9.4-12.4); Monocytes # (auto) 0.89 K/uL (0.11-0.59); Monocytes % (auto) 8.5 %; Neutrophils # (auto) 8.89 K/uL (1.40-6.50); Neutrophils % (auto) 84.4 %; Platelet Count 313 K/uL (130-400); RDW Coefficient of Variation 16.3 % (11.5-14.5); RDW Standard Deviation 50.1 fL (36.4-46.3); White Blood Count 10.53 K/ul (4.8-10.8)
[2023-02-11 19:37] LABS: Appearance Urine Clear (Clear); Bacteria Urine Automated Negative (Negative); Bilirubin Urine Negative (Negative); Blood Urine Negative (Negative); Color Urine Yellow; Glucose Urine UA Negative (Negative); Ketones Urine Negative (Negative); Leukocyte Esterase Urine Trace (Negative); Nitrite Urine Negative (Negative); Protein Urine Negative (Negative); RBC Urine Automated 0-4 /hpf (0-4); Urobilinogen Urine Negative (Negative)
[2023-02-11 19:42] LABS: Albumin Globulin Ratio 0.8 (0.9-2); Albumin Level 3.3 gm/dl (3.4-5.0); BUN Creatinine Ratio 15.3 (10-20); Bilirubin,Total 0.5 mg/dl (0.2-1.0); Calcium 8.9 mg/dl (8.6-10.3); Creatinine Clr Calc Pharmacy 35.9 ml/min; Est GFR (African American) 43.6 ml/min; Est GFR (Non-African American) 37.6 ml/min; Globulin 4.1 gm/dl (2.5-4.0); Potassium 3.8 mmol/L (3.5-5.1); Total Protein 7.4 gm/dl (6.0-8.3)
[2023-02-11 19:43] LABS: Base Excess VBG 9.5 mEq/L; HCO3 VBG 37 mmol/L; Oxygen Saturation VBG < 60.0 %; PCO2 VBG 62 mmHg (38-50); PO2 VBG 25 mmHg; pH VBG 7.38 (7.36-7.41)
[2023-02-11 19:51] LABS: Troponin I High Sensitivity 435.7 pg/ml (0-20)
[2023-02-11] MEDS ORDERED: methylPREDNISolone 125 MG/2 ML VIAL IV STA (19:53)
[2023-02-11 19:59] LABS: Prothrombin Time 10.9 Seconds (9.0-12.0)
[2023-02-11 20:21] LABS: Influenza A virus by PCR Negative (Neg); Influenza B virus by PCR Negative (Neg); RSV by PCR Negative (Neg)
[2023-02-11 20:25] LABS: SARS CoV2 RNA(COVID-19) Ceph POSITIVE (Negative)
[2023-02-12] MEDS ORDERED: ALUMINUM/MAGNESIUM SUSP 30 ML UDC PO PRN (02:15)
[2023-02-12] MEDS ORDERED: ACETAMINOPHEN 325 MG TAB PO PRN ×2 (02:15)
[2023-02-12] MEDS ORDERED: POLYETHYLENE (MIRALAX) 17 GM PACK PO PRN (02:15)
[2023-02-12] MEDS ORDERED: BENZONATATE 100 MG CAPSULE PO PRN (02:38)
[2023-02-12] MEDS: ALBUTEROL HFA 8 GM INHALER INH SCH ×4 (03:09→19:05)
--- NOTE | 2023-02-12 05:38 | History & Physical Report ---
Date of Service February 12, 2023 Assessment & Plan (1) Acute hypoxemic respiratory failure: Plan: Patient presents to ED brought in by EMS from [facility] with complaints of worsening shortness of breath and found to be hypoxic upon initial evaluation. Patient started on nonrebreather mask and converted to CPAP and BiPAP subsequently in the ED and presently on nasal cannula to maintain oxygen sats over 90. Acute hypoxia likely secondary to underlying COVID-19 infection and accompanying underlying COPD. Continue supplemental oxygen to keep pulse oximetry over 90 IV steroids and bronchodilators as needed. (2) COVID-19: Plan: Patient presents with shortness of breath with accompanying significant hypoxia. Initial lab data shows no leukocytosis and venous blood gas shows compensated pH of 7.38. Initial chest [id number]-[id number] report shows multifocal pneumonic infiltrates consistent with COVID-19 infection. No elevation white count and proBNP not elevated. IV steroids and bronchodilators as needed Check LFTs and if within acceptable limits consider remdesivir. (3) Chronic obstructive pulmonary disease: Plan: Patient has a known history of underlying COPD and is on oxygen supplementation in nursing facility. Continue IV steroids and bronchodilators as needed Venous blood gas shows pH of 7.38 that indicates metabolic compensation along with bicarb of 33 Continue supplemental oxygen to keep sats over 90 (4) Elevated troponin: Plan: Patient noted to have elevated troponin level of 435 but no active chest pain and no acute EKG changes noted Patient also noted to have elevated high sensitive troponin of 600 a few weeks ago when he was discharged in the hospital. This elevated troponin is in a downward trend patient also has accompanying CKD we will check follow-up troponin to ensure that the troponin levels are not worsening Antiplatelet therapy with aspirin (5) Hypothyroidism (acquired): Plan: Continue levothyroxine 150 mcg daily Check TSH level (6) Hypertension: Plan: Continue home dose of long-acting Cardizem 180 mg daily Monitor blood pressure trend and titrate meds as tolerated Admission and Anticipated Discharge Date Admission Date: February 12, 2023 History of Present Illness Chief Complaint: Patient presents with worsening shortness of breath Primary Care Provider: Luciano Downing MD This is a 87-year-old male with past medical history significant history of diastolic CHF, COPD on home oxygen therapy with 2 L oxygen supplementation, hypothyroidism, hypertension, who presents to the emergency department brought in by EMS with complaints of worsening shortness of breath. [facility] lives [facility] and was reported to have worsening shortness of breath when he ambulated to the restroom and EMS was activated. Patient was reported to have initial oxygen saturation in the 60s and patient subsequently was placed on nasal cannula and nonrebreather mask and brought into ED for further evaluation. Patient was initially placed on nonrebreather mask and was switched to CPAP as patient had increased work of breathing and converted to BiPAP ventilation in the ED. Patient evaluated in the ED and found to have positive COVID-19 infection and found to have a chest x-ray indicating multifocal pneumonia. Patient is being continued on oxygen supplementation at this time via nasal cannula as is respiratory status has improved in the ED and patient is being admitted for further management at this time. Allergies Allergy/AdvReac Type Severity Reaction Status Date / Time clarithromycin Allergy Intermediate RASH Verified 02/11/23 20:47 Home Medications Medication Instructions Recorded Confirmed Type magnesium 250 mg tablet 250 mg PO 3XWK 08/02/18 02/11/23 History cholecalciferol (vitamin D3) 25 1,000 units PO QAM 05/30/19 02/11/23 History mcg (1,000 unit) tablet multivitamin 1 tab PO QAM 09/04/20 02/11/23 History promethazine-DM 6.25 mg-15 mg/5 mL 5 ml PO Q6H PRN cough #473 mL 09/24/21 02/11/23 Rx oral syrup levothyroxine 150 mcg tablet 150 mcg PO QAM #90 tabs 02/03/22 02/11/23 Rx diltiazem HCl 180 mg capsule,24 180 mg PO QAM 90 days #90 caps 04/22/22 02/11/23 Rx hr,extended release (Tiazac) fluticasone fur. 100 mcg-umeclid 1 inh inhalation QAM #3 Inhalers 08/26/22 02/11/23 Rx 62.5 mcg-vilant 25 mcg inhalat.powder (Trelegy Ellipta) albuterol sulfate 90 mcg/actuation 2 puff inhalation Q6H #8.5 grams 10/17/22 02/11/23 Rx aerosol inhaler (Ventolin HFA) ipratropium 0.5 mg-albuterol 3 mg 3 ml NEB Q6H PRN 10/17/22 02/11/23 Rx (2.5 mg base)/3 mL nebulization cough/wheeze/dyspnea #1 box soln diclofenac sodium 1 % topical gel 2 g topical QID 10/23/22 02/11/23 History omeprazole 40 mg capsule,delayed 40 mg PO DAILY 11/05/22 02/11/23 History release mupirocin 2 % topical ointment 1 applic topical BID #22 grams 11/10/22 02/11/23 Rx oxycodone 5 mg tablet 2.5 mg PO Q4H PRN Pain #30 tabs 11/20/22 02/11/23 Rx potassium chloride 20 mEq 20 meq PO DAILY #72 tabs 12/12/22 02/11/23 Rx tablet,extended release(part/cryst) Oxygen Home 12/31/22 02/11/23 History bumetanide 2 mg tablet 2 mg PO BID 12/31/22 02/11/23 History sennosides 8.6 mg tablet (Senokot) 8.6 mg PO QAM 12/31/22 02/11/23 History sodium chloride 3 % for 4 ml inhalation BID #120 mL 01/02/23 02/11/23 Rx nebulization ciclopirox 8 % topical solution 1 applic topical DAILY #6.6 mL 01/15/23 02/11/23 Rx finasteride 5 mg tablet 5 mg PO DAILY #30 tabs 01/21/23 02/11/23 Rx tobramycin 300 mg/5 mL in 0.225 % 300 mg (5 mL) inhalation BID 28 02/02/23 02/11/23 Rx sodium chloride for nebulization days #280 mL (Josue) acetaminophen 325 mg tablet 650 mg PO Q6H PRN FEVER/PAIN 02/11/23 02/11/23 History (Tylenol) polyethylene glycol 3350 17 gram 17 g PO DAILY PRN Constipation 02/11/23 02/11/23 History oral powder packet (Miralax) tamsulosin 0.4 mg capsule 0.4 mg PO HS 02/11/23 02/11/23 History Past Med/Surg History Medical History Acute and chronic respiratory failure Acute on chronic diastolic (congestive) heart failure Acute on chronic diastolic (congestive) heart failure Acute on chronic kidney failure Avulsion injury of right elbow region Back problem BPH (benign prostatic hyperplasia) Candidal diaper rash Cellulitis Cellulitis Cellulitis Cellulitis of both lower extremities Cellulitis of left leg Cellulitis of left lower extremity CHI (closed head injury) Chronic obstructive pulmonary disease Chronic respiratory failure with hypoxia Closed hip fracture Contusion of elbow Contusion of face COPD (chronic obstructive pulmonary disease) Early satiety Elevated troponin Fluid retention in legs GERD (gastroesophageal reflux disease) Hematoma of right lower extremity History of bronchitis History of cellulitis Hypernatremia Hypertension Hypothyroidism Hypothyroidism (acquired) Left lumbar radiculopathy Leg length discrepancy Livedo reticularis Lumbar spinal stenosis Lymphedema MRSA (methicillin resistant Staphylococcus aureus) On home oxygen therapy PRISCILA (obstructive sleep apnea) Osteoarthritis Osteoporosis, unspecified Personal history of MRSA (methicillin resistant Staphylococcus aureus) Pulmonary edema Pulmonary nodule Sepsis Sepsis Skin tear Sleep apnea Spinal stenosis Syncope Urethral stricture Vitamin D deficiency Surgical History History of cardiac cath History of cholecystectomy History of colonoscopy History of herniorrhaphy History of partial knee replacement History of tonsillectomy History of tooth extraction Hx of surgical procedure Family History Mother Cerebral atherosclerosis Father Diverticulosis Other No significant family history Denies family history of Ovarian cancer Prostate cancer Myocardial infarction Breast cancer Colorectal cancer Social History Smoking Status: Former smoker Tobacco Type: Cigarettes Age Started Using Tobacco: 22; packs per day: 1; Cigarettes Per Day: 20; Second Hand Exposure: No; Do You Dip or Chew Tobacco: No; Tobacco Cessation Education Requested by Patient: No Hx Alcohol Use: No Hx Substance Use: No Preferred Language: Luxembourgish Communication Ability: Effective Visual Impairment: No Limitations Hearing Ability: Normal Systems Developer Required: No Beliefs That Will Affect Care: None marital status: Current Living Situation: Correction current occupational status: retired Other Information That Helps Us Care for You: No Feels Safe at Home: Yes Safety Concerns: Feels Safe At This Time Dental Care, Regularly: No Physical Activity Frequency: 1-2 Times per Week Seatbelt Use: always Sunscreen Use: Yes Assistive Devices: Glasses, Hearing Aid - Bilateral and Walker Review of Systems Review of Systems: ENT- no epistaxis Respiratory-presents with shortness of breath Cardiac-no palpitations, no chest pain, GI-no nausea, vomiting, diarrhea, -no urinary retention, no urinary incontinence, Musculoskeletal-no joint pain, no muscle tenderness Skin-no bruising, Neuro-no isolated weakness, Physical Exam Physical Exam: Head and ENT no thyroid enlargement trachea midline Cardiovascular S1-S2 are normal no S3 Lungs bilateral air entry decreased at bases with scattered rhonchi Abdomen soft nondistended no rebound tenderness Extremity shows trace edema Neurologically no focal deficits Skin shows no rash no cyanosis Results & Data Results & Data Vital Signs (Past 12 Hours) Vital Signs Temp Pulse Pulse Resp BP BP Pulse Ox 02/12/23 05:00 36.5 C 96 H 20 136/71 96 02/12/23 05:13 101 H 02/12/23 04:59 02/12/23 02:25 94 H 20 136/91 97 02/12/23 01:30 84 22 126/75 95 02/12/23 00:49 105 H 02/12/23 00:00 99 H 24 116/72 98 02/11/23 23:30 107 H 24 125/71 98 02/11/23 23:00 102 H 22 128/72 98 02/11/23 21:56 108 H 95 02/11/23 20:43 127 H 02/11/23 21:36 112 H 94 02/11/23 20:50 143 H 23 132/91 95 02/11/23 19:06 28 H 100 02/11/23 19:00 150 H 28 H 100 02/11/23 19:29 99 02/11/23 19:25 02/11/23 19:14 145 H 32 H 98 02/11/23 19:06 143 H 23 148/94 H 97 O2 Del Method O2 Flow Rate FiO2 02/12/23 05:00 Nasal Cannula 5 02/12/23 05:13 02/12/23 04:59 Room Air 02/12/23 02:25 Nasal Cannula 5 02/12/23 01:30 Nasal Cannula 5 02/12/23 00:49 02/12/23 00:00 Nasal Cannula 5 02/11/23 23:30 Nasal Cannula 5 02/11/23 23:00 Nasal Cannula 5 02/11/23 21:56 Nasal Cannula 5 02/11/23 20:43 02/11/23 21:36 Nasal Cannula 5 02/11/23 20:50 CPAP 02/11/23 19:06 BiPAP 40 02/11/23 19:00 40 02/11/23 19:29 CPAP 02/11/23 19:25 CPAP 02/11/23 19:14 CPAP 02/11/23 19:06 CPAP Laboratory Results Short CBC 02/11/23 Range/Units 19:00 WBC 10.53 (4.8-10.8) K/ul Hgb 11.6 L (14.0-18.0) g/dl Hct 37.9 L (42.0-52.0) % Plt Count 313 (130-400) K/uL BMP 02/11/23 19:00 Sodium 139 Potassium 3.8 Chloride 98 Carbon Dioxide 33 H BUN 25 H Creatinine 1.63 H Glucose 109 H Calcium 8.9 Liver Function 02/11/23 Range/Units 19:00 Total Bilirubin 0.5 (0.2-1.0) mg/dl AST 12 L (13-39) U/L ALT 6 L (7-52) U/L Alkaline Phosphatase 58 (34-104) U/L Albumin 3.3 L (3.4-5.0) gm/dl Urine 02/11/23 Range/Units 19:12 Urine Color Yellow Urine Appearance Clear (Clear) Urine pH 6.0 (4.5-7.5) Ur Specific [place] 1.010 (1.000-1.030) Urine Protein Negative (Negative) Urine Glucose (UA) Negative (Negative) Code Status & VTE Plan VTE Prophylaxis Plan VTE Prophylaxis will be ordered: Yes PG Care Time/CCT Total # of Minutes Spent Total Time Spent with Patient: Total time spent is greater than 50% in coordination of care (as documented) at patient's floor/unit and/or counseling patient: Coding Level of Care Code 25908 INT INP/OBS CARE 2/55MIN Diagnoses Acute hypoxemic respiratory failure J96.01 COVID-19 U07.1 Chronic obstructive pulmonary disease J44.9 Elevated troponin R77.8 Hypothyroidism (acquired) E03.9 Hypertension I10
[2023-02-12] MEDS: LEVOTHYROXINE SODIUM 150 MCG TABLET PO SCH (06:16)
--- NOTE | 2023-02-12 07:17 | XRay Report ---
SINGLE VIEW CHEST CLINICAL HISTORY: Dyspnea FINDINGS: An AP, portable, upright chest radiograph is compared to study dated 01/29/2023. Correlation is made with chest CT dated 01/27/2023. The heart is enlarged noting atherosclerotic calcification of the thoracic aorta. There is pulmonary vascular congestion. Emphysema And chronic interstitial thick ening is similar to previous. Multifocal airspace consolidation is seen throughout both lungs. There are small pleural effusions No pneumothorax is seen. The skeletal structures are osteopenic. The bony thorax is grossly intact. IMPRESSION: 1. Cardiomegaly and emphysema with pulmonary vascular congestion. 2. Multifocal patchy airspace consolidation is seen throughout both lungs. This could represent pulmo nary edema and/or multifocal pneumonia. Clinical correlation will be required and radiographic follow -up to resolution is recommended. 3. Small pleural effusions. ACT 112: Negative or not required by law. Electronically signed by: Roosevelt Hairston M.D. 02/12/2023 7:16 AM
[2023-02-12] MEDS: ASPIRIN 81 MG ECTAB PO SCH (08:23)
[2023-02-12] MEDS: MUPIROCIN 2% OINT 22 GM TUBE TOP SCH ×2 (08:24→19:04)
[2023-02-12] MEDS: FLUTICASONE FUROATE 100MCG 14 PUFFS/INHALER INH SCH (08:24)
[2023-02-12] MEDS: dilTIAZem HCL 180 MG CAPCR PO SCH (08:24)
[2023-02-12] MEDS: PANTOprazole 40 MG TAB PO SCH (08:24)
[2023-02-12] MEDS: UMECLIDINIUM/VILANTEROL 62.5/25MCG 7 PUFFS/INHALER INH SCH (08:24)
[2023-02-12] MEDS: FINASTERIDE 5 MG TAB PO SCH (08:24)
--- NOTE | 2023-02-12 08:35 | Electrocardiogram Report ---
Test Reason : Blood Pressure : / mmHG Vent. Rate : 136 BPM Atrial Rate : 136 BPM P-R Int : 086 ms QRS Dur : 068 ms QT Int : 302 ms P-R-T Axes : 016 -36 065 degrees QTc Int : 454 ms Poor data quality, interpretation may be adversely affected Sinus tachycardia with Premature supraventricular complexes vs. afib Left anterior fascicular block Poor R wave progression, consider anterior AR vs. lead placement vs. LVH Possible Old Inferior infarct Abnormal ECG When compared with ECG of 26-JAN-2023 15:00, HR has increased by 24 bpm P waves no longer visible due to artifact, possible atrial fibrillation now present Confirmed by Butch Haq ([id number]) on 02/12/2023 8:35:02 AM Referred By: REFERRED SELF Confirmed By:Butch Haq
[2023-02-12 08:36] LABS: Hematocrit (blood only) 33.6 % (42.0-52.0); Hemoglobin 10.2 g/dl (14.0-18.0); Mean Corpuscular Hemoglobin 25.6 pg (25.0-34.0); Mean Corpuscular Hgb Conc 30.4 g/dL (32.0-36.0); Mean Corpuscular Volume 84.4 fL (80.0-100.0); Platelet Count 260 K/uL (130-400); RDW Coefficient of Variation 16.2 % (11.5-14.5); RDW Standard Deviation 50.1 fL (36.4-46.3); Red Blood Count 3.98 M/uL (4.70-6.10); White Blood Count 5.52 K/ul (4.8-10.8)
--- NOTE | 2023-02-12 08:49 | Electrocardiogram Report ---
Test Reason : Blood Pressure : / mmHG Vent. Rate : 127 BPM Atrial Rate : 127 BPM P-R Int : 170 ms QRS Dur : 066 ms QT Int : 268 ms P-R-T Axes : 000 -23 032 degrees QTc Int : 389 ms Multifocal atrial tachycardia Possible Old Inferior infarct Abnormal ECG When compared with ECG of 11-FEB-2023 18:59, P waves now apparent Otherwise no significant change Confirmed by Butch Haq ([id number]) on 02/12/2023 8:49:22 AM Referred By: REFERRED SELF Confirmed By:Butch Haq
[2023-02-12] MEDS ORDERED: methylPREDNISolone 40 MG in SYRINGE 0 ML IV SCH (09:00)
[2023-02-12] MEDS ORDERED: ENOXAPARIN INJ 30 MG/0.3 ML SYR SQ SCH (09:00)
[2023-02-12] MEDS ORDERED: NON-FORMULARY MEDICATION (Fluticasone-Umeclidin-Vilanter [Trelegy Ellipta] 100-62.5-25 mcg INH SCH (09:00)
[2023-02-12 09:10] LABS: BUN Creatinine Ratio 15.6 (10-20); Bilirubin Direct 0.1 mg/dl (0-0.2); Bilirubin,Total 0.4 mg/dl (0.2-1.0); Calcium 8.4 mg/dl (8.6-10.3); Creatinine Clr Calc Pharmacy 35.1 ml/min; Est GFR (African American) 42.3 ml/min; Est GFR (Non-African American) 36.5 ml/min; Potassium 3.7 mmol/L (3.5-5.1); Total Protein 6.8 gm/dl (6.0-8.3)
[2023-02-12 09:25] LABS: Troponin I High Sensitivity 457.6 pg/ml (0-20)
[2023-02-12 13:17] LABS: C Reactive Protein 9.93 mg/dl (0-0.5)
[2023-02-12] MEDS ORDERED: DEXAMETHASONE SOD INJ 4 MG/ML VIAL IV ONE (18:00)
[2023-02-12] MEDS ORDERED: dexAMETHasone 6 MG in SYRINGE 0 ML IV ONE (18:00)
[2023-02-12] MEDS: TAMSULOSIN HCL 0.4 MG CAP PO SCH (19:03)
[2023-02-12] MEDS ORDERED: COUGH DROP (SUGAR FREE) LOZ 24 LOZ/1 BOX BUCCAL ONE (20:29)
[2023-02-13] MEDS: ALBUTEROL HFA 8 GM INHALER INH SCH ×4 (00:51→21:17)
[2023-02-13] MEDS: LEVOTHYROXINE SODIUM 150 MCG TABLET PO SCH (04:58)
[2023-02-13] MEDS: dilTIAZem HCL 180 MG CAPCR PO SCH (07:52)
[2023-02-13] MEDS: FINASTERIDE 5 MG TAB PO SCH (07:52)
[2023-02-13] MEDS: PANTOprazole 40 MG TAB PO SCH (07:53)
[2023-02-13] MEDS: ASPIRIN 81 MG ECTAB PO SCH (07:53)
[2023-02-13] MEDS: dexAMETHasone 4 MG TAB PO SCH (07:53)
[2023-02-13] MEDS: MUPIROCIN 2% OINT 22 GM TUBE TOP SCH ×2 (07:54→21:17)
[2023-02-13] MEDS: FLUTICASONE FUROATE 100MCG 14 PUFFS/INHALER INH SCH (07:54)
[2023-02-13] MEDS: UMECLIDINIUM/VILANTEROL 62.5/25MCG 7 PUFFS/INHALER INH SCH (07:54)
[2023-02-13 08:09] LABS: Hematocrit (blood only) 30.5 % (42.0-52.0); Hemoglobin 9.5 g/dl (14.0-18.0); Mean Corpuscular Hemoglobin 25.5 pg (25.0-34.0); Mean Corpuscular Hgb Conc 31.1 g/dL (32.0-36.0); Platelet Count 246 K/uL (130-400); RDW Coefficient of Variation 16.3 % (11.5-14.5); RDW Standard Deviation 48.9 fL (36.4-46.3); Red Blood Count 3.72 M/uL (4.70-6.10); White Blood Count 5.13 K/ul (4.8-10.8)
[2023-02-13 08:25] LABS: BUN Creatinine Ratio 21.6 (10-20); C Reactive Protein 5.17 mg/dl (0-0.5); Calcium 8.3 mg/dl (8.6-10.3); Creatinine Clr Calc Pharmacy 30.1 ml/min; Est GFR (African American) 35.3 ml/min; Est GFR (Non-African American) 30.5 ml/min; Potassium 3.6 mmol/L (3.5-5.1)
[2023-02-13] MEDS ORDERED: dexAMETHasone 1 MG TAB PO SCH (09:00)
[2023-02-13] MEDS ORDERED: MAGNESIUM OXIDE 400 MG TAB PO SCH (09:00)
[2023-02-13] MEDS ORDERED: ENOXAPARIN INJ 40 MG/0.4 ML SYR SQ SCH (09:00)
[2023-02-13] MEDS ORDERED: BUMETANIDE 2 MG in SYRINGE 0 ML IV STA (20:08)
[2023-02-13] MEDS: TAMSULOSIN HCL 0.4 MG CAP PO SCH (21:17)
--- NOTE | 2023-02-13 23:12 | Hospitalist Progress Note ---
Date of Service February 13, 2023 Assessment & Plan (1) Acute hypoxemic respiratory failure: Plan: Patient presents to ED brought in by EMS from [facility] with complaints of worsening shortness of breath and found to be hypoxic upon initial evaluation. Patient started on nonrebreather mask and converted to CPAP and BiPAP subsequently in the ED and presently on nasal cannula to maintain oxygen sats over 90. Acute hypoxia likely secondary to underlying COVID-19 infection and accompanying underlying COPD. Continue supplemental oxygen to keep pulse oximetry over 90 IV steroids and bronchodilators as needed. (2) COVID-19: Plan: Patient presents with shortness of breath with accompanying significant hypoxia. Initial lab data shows no leukocytosis and venous blood gas shows compensated pH of 7.38. Initial chest m-[id number] report shows multifocal pneumonic infiltrates consistent with COVID-19 infection. No elevation white count and proBNP not elevated. IV steroids and bronchodilators as needed His CRP has improved on 02/13 will continue to monitor. Oxygen requirements have also improved. PAtient will be placed on bumex given his chornic lower extremity edema. (3) Chronic obstructive pulmonary disease: Plan: Patient has a known history of underlying COPD and is on oxygen supplementation in nursing facility. Continue IV steroids and bronchodilators as needed Venous blood gas shows pH of 7.38 that indicates metabolic compensation along with bicarb of 33 Continue supplemental oxygen to keep sats over 90 (4) Elevated troponin: Plan: Myocardial infarction type 2 due to demand ischemia Patient noted to have elevated troponin level of 435 but no active chest pain and no acute EKG changes noted Patient also noted to have elevated high sensitive troponin of 600 a few weeks ago when he was discharged in the hospital. This elevated troponin is in a downward trend patient also has accompanying CKD we will check follow-up troponin to ensure that the troponin levels are not worsening. repeat levels were essentially the same. terra monitor Antiplatelet therapy with aspirin (5) Hypothyroidism (acquired): Plan: Continue levothyroxine 150 mcg daily Check TSH level (6) Hypertension: Plan: Continue home dose of long-acting Cardizem 180 mg daily Monitor blood pressure trend and titrate meds as tolerated Admission and Anticipated Discharge Date Admission Date: February 12, 2023 Subjective Patient reports feeling better. He states he is less short of breath. He is not quite at his aseline. Continues to cough. Review of Systems Review of Systems: All systems reviewed & are unremarkable except as noted in HPI & below Physical Exam Physical Exam: Head and ENT no thyroid enlargement trachea midline Cardiovascular S1-S2 are normal no S3 Lungs bilateral air entry decreased at bases with scattered rhonchi Abdomen soft nondistended no rebound tenderness Extremity shows trace edema Neurologically no focal deficits Skin shows no rash no cyanosis Results & Data Results & Data Vital Signs (Past 12 Hours) Vital Signs Temp Pulse Resp BP Pulse Ox O2 Del Method O2 Flow Rate 02/13/23 22:37 36.8 C 80 18 127/76 95 Nasal Cannula 2 02/13/23 19:42 36.6 C 82 18 146/77 H 94 Nasal Cannula 2 02/13/23 16:38 37.1 C 87 20 131/78 93 Nasal Cannula 02/13/23 16:00 86 02/13/23 13:33 72 18 94 Nasal Cannula 2 02/13/23 11:28 36.6 C 88 20 105/65 92 Nasal Cannula 3.0 PG Care Time/CCT Total # of Minutes Spent Total Time Spent with Patient: Total time spent is greater than 50% in coordination of care (as documented) at patient's floor/unit and/or counseling patient: Coding Level of Care Code 13010 SUB INP/OBS CARE 2/35MIN Diagnoses Acute hypoxemic respiratory failure J96.01 COVID-19 U07.1 Chronic obstructive pulmonary disease J44.9 Elevated troponin R77.8 Hypothyroidism (acquired) E03.9 Hypertension I10
[2023-02-14] MEDS: ALBUTEROL HFA 8 GM INHALER INH SCH ×3 (00:44→13:32)
[2023-02-14] MEDS: LEVOTHYROXINE SODIUM 150 MCG TABLET PO SCH (06:08)
[2023-02-14 07:03] LABS: Hematocrit (blood only) 34.3 % (42.0-52.0); Hemoglobin 10.8 g/dl (14.0-18.0); Mean Corpuscular Hemoglobin 25.9 pg (25.0-34.0); Mean Corpuscular Hgb Conc 31.5 g/dL (32.0-36.0); Mean Corpuscular Volume 82.3 fL (80.0-100.0); Mean Platelet Volume 12.1 fL (9.4-12.4); Platelet Count 264 K/uL (130-400); RDW Standard Deviation 48.4 fL (36.4-46.3); Red Blood Count 4.17 M/uL (4.70-6.10); White Blood Count 7.44 K/ul (4.8-10.8)
[2023-02-14 07:18] LABS: BUN Creatinine Ratio 29.8 (10-20); C Reactive Protein 2.91 mg/dl (0-0.5); Calcium 8.5 mg/dl (8.6-10.3); Creatinine Clr Calc Pharmacy 38.1 ml/min; Est GFR (African American) 47.8 ml/min; Est GFR (Non-African American) 41.2 ml/min; Potassium 3.4 mmol/L (3.5-5.1)
[2023-02-14] MEDS: PANTOprazole 40 MG TAB PO SCH (08:23)
[2023-02-14] MEDS: UMECLIDINIUM/VILANTEROL 62.5/25MCG 7 PUFFS/INHALER INH SCH (08:24)
[2023-02-14] MEDS: dexAMETHasone 4 MG TAB PO SCH (08:24)
[2023-02-14] MEDS: FINASTERIDE 5 MG TAB PO SCH (08:24)
[2023-02-14] MEDS: dilTIAZem HCL 180 MG CAPCR PO SCH (08:24)
[2023-02-14] MEDS: FLUTICASONE FUROATE 100MCG 14 PUFFS/INHALER INH SCH (08:24)
[2023-02-14] MEDS: MUPIROCIN 2% OINT 22 GM TUBE TOP SCH (08:25)
[2023-02-14] MEDS ORDERED: POTASSIUM CHLORIDE CRTAB 20 MEQ TABCR PO STA ×2 (08:45→12:50)
[2023-02-14 09:49] LABS: Troponin I High Sensitivity 337.7 pg/ml (0-20)
[2023-02-14] MEDS ORDERED: BUMETANIDE 1 MG TAB PO ONE (12:50)
--- NOTE | 2023-02-14 13:40 | Discharge Summary ---
Date of Service February 14, 2023 Admission HPI Per Admitting Provider This is a 87-year-old male with past medical history significant history of diastolic CHF, COPD on home oxygen therapy with 2 L oxygen supplementation, hypothyroidism, hypertension, who presents to the emergency department brought in by EMS with complaints of worsening shortness of breath. Patient lives in [facility] and was reported to have worsening shortness of breath when he ambulated to the restroom and EMS was activated. Patient was reported to have initial oxygen saturation in the 60s and patient subsequently was placed on nasal cannula and nonrebreather mask and brought into ED for furt her evaluation. Patient was initially placed on nonrebreather mask and was switched to CPAP as patient had increased work of breathing and converted to BiPAP ventilation in the ED. Patient evaluated in the ED and found to have positive COVID-19 infection and found to have a chest x-ray indicating multifocal pneumonia. Patient is being continued on oxygen supplementation at this time via nasal c annula as is respiratory status has improved in the ED and patient is being admitted for further management at this time. Discharge Data Allergies Allergy/AdvReac Type Severity Reaction Status Date / Time clarithromycin Allergy Intermediate RASH Verified 02/11/23 20:47 Consultations 02/11/23 21:01 ED Decision to Admit Stat Hospital Course (1) Acute hypoxemic respiratory failure: Patient presents to ED brought in by EMS from [facility] with complaints of worsening shortness of breath and found to be hypoxic upon initial evaluation. Patient started on nonrebreather mask and converted to CPAP and BiPAP subsequently in the ED and presently on nasal cannula to maintain oxygen sats over 90. Acute hypoxia likely secondary to underlying COVID-19 infection and accompanying underlying COPD. Continue supplemental oxygen to keep pulse oximetry over 90 IV steroids and bronchodilators as needed. (2) COVID-19: Patient presents with shortness of breath with accompanying significant hypoxia. Initial lab data shows no leukocytosis and venous blood gas shows compensated pH of 7.38. Initial chest d-hfx-dbsqazqitic report shows multifocal pneumonic infiltrates consistent with COVID-19 infection. No elevation white count and proBNP not elevated. IV steroids and bronchodilators as needed His CRP has improved on 02/13 will continue to monitor. Oxygen requirements have also improved. PAtient will be placed on bumex given his chornic lower extremity edema. (3) Chronic obstructive pulmonary disease: Patient has a known history of underlying COPD and is on oxygen supplementation in nursing facility. Continue IV steroids and bronchodilators as needed Venous blood gas shows pH of 7.38 that indicates metabolic compensation along with bicarb of 33 Continue supplemental oxygen to keep sats over 90 (4) Elevated troponin: Myocardial infarction type 2 due to demand ischemia Patient noted to have elevated troponin level of 435 but no active chest pain and no acute EKG changes noted Patient also noted to have elevated high sensitive troponin of 600 a few weeks ago when he was discharged in the hospital. This elevated troponin is in a downward trend patient also has accompanying CKD we will check follow-up troponin to ensure that the troponin levels are not worsening. repeat levels were essentially the same. terra monitor Antiplatelet therapy with aspirin (5) Hypothyroidism (acquired): Continue levothyroxine 150 mcg daily Check TSH level (6) Hypertension: Continue home dose of long-acting Cardizem 180 mg daily Monitor blood pressure trend and titrate meds as tolerated Discharge Plan Discharge Items Patient Disposition: Home - Home Health Services Reason For Visit: COVID PNEUMONIA Discharge Diagnosis: COVID 19 pneumonia Activity: Resume your previous activity Non-emergency contact: Primary Care Provider Call non-emergency contact if: you have any medication questions Follow-up/Referrals: Luciano Downing III, MD [Primary Care Provider] - Diet: Heart Healthy Addtl Attending Provider Instructions: Recommend followup with your PCP in the next 7-14 days. Please quarantine for the weekend. Please wear a mask for next 2 days when in presence of someone else. Have the windows down on the drive home. Starting Thursday, please wear a mask when in public for 5 days. You will also be on dexamethasone for 7 days starting tomorrow. Pending Studies at Discharge: No Stand-Alone Forms: [facility], Smoking Cessation Medications and DC Order Prescriptions: New dexamethasone 6 mg tablet 6 mg PO DAILY Qty: 7 0RF Continued promethazine-DM 6.25-15 mg/5 mL syrup 5 ml PO Q6H PRN (Reason: cough) Qty: 473 0RF levothyroxine 150 mcg tablet 150 mcg PO QAM Qty: 90 3RF diltiazem HCl [Tiazac] 180 mg capsule,extended release 24 hr 180 mg PO QAM 90 Days Qty: 90 3RF Trelegy Ellipta 100-62.5-25 mcg blister with device 1 inh INH QAM Qty: 3 3RF tobramycin in 0.225 % NaCl [Josue] 300 mg/5 mL solution for nebulization 300 mg inhalation BID 28 Days Qty: 280 5RF Rx Instructions: separate doses by at least 6 hours 28 days on then 28 days off then repeat oxycodone 5 mg tablet 2.5 mg PO Q4H PRN (Reason: Pain) Qty: 30 0RF finasteride 5 mg tablet 5 mg PO DAILY Qty: 30 11RF sodium chloride 3 % solution for nebulization 4 ml inhalation BID Qty: 120 3RF Rx Instructions: 28 days on, 28 days off ciclopirox 8 % solution 1 applic topical DAILY Qty: 6.6 4RF Rx Instructions: Apply to affected nails daily. Do not wash nails for 8hr post application. Remove w/alcohol every 7 days diclofenac sodium 1 % gel 2 g topical QID Rx Instructions: apply to single elbow, wrist or hand; for hand includes palm/fingers/back of hand mupirocin 2 % ointment 1 applic topical BID Qty: 22 0RF potassium chloride 20 mEq tablet,ER particles/crystals 20 meq PO DAILY Qty: 72 3RF bumetanide 2 mg tablet 2 mg PO BID Rx Instructions: May increase to 4 mg BID PRN for weight gain, edema, SOB sennosides [Senokot] 8.6 mg tablet 8.6 mg PO QAM (DME) Oxygen Home Liters Per Minute See Rx Instructions .Route Rx Instructions: As directed magnesium 250 mg Tablet 250 mg PO [id number] Rx Instructions: Thursday,Thursday,Thursday cholecalciferol (vitamin D3) 1,000 unit (25 mcg) tablet 1,000 units PO QAM multivitamin Tablet 1 tab PO QAM ipratropium-albuterol 0.5 mg-3 mg(2.5 mg base)/3 mL Solution For Nebulization 3 ml NEB Q6H PRN (Reason: cough/wheeze/dyspnea) Qty: 1 0RF albuterol sulfate [Ventolin HFA] 90 mcg/actuation HFA aerosol inhaler 2 puff inhalation Q6H Qty: 8.5 5RF omeprazole 40 mg capsule,delayed release(DR/EC) 40 mg PO DAILY acetaminophen [Tylenol] 325 mg Tablet 650 mg PO Q6H PRN (Reason: FEVER/PAIN) polyethylene glycol 3350 [Miralax] 17 gram powder in packet 17 g PO DAILY PRN (Reason: Constipation) tamsulosin 0.4 mg capsule 0.4 mg PO HS Discharge Orders: Discharge Order (Routine); Ordered 02/14/23 Ordered By: Harris Haque Admission Data Admit Date/Time: 02/12/23 00:54 Attending Provider: Harris Haque Admit Provider: Dany Menchaca Primary Care Provider: Luciano Downing III Other Providers: Tyler Hawkins ; Dany Menchaca Coding Diagnoses Acute hypoxemic respiratory failure J96.01 COVID-19 U07.1 Chronic obstructive pulmonary disease J44.9 Elevated troponin R77.8 Hypothyroidism (acquired) E03.9 Hypertension I10
== END 2023-02-14 15:19 | disposition home health service (06) | DRG 177 ==
LOC: ED 18:52 → EDINP 02-12 00:54 → SUATTDRO 02-12 00:54 → 2S 02-12 02:02

== ENCOUNTER 2023-02-18 16:05 | Inpatient (IN) ==
[2023-02-18] MEDS ORDERED: ALBUT/IPRATROP 3MG/0.5MG NEB 3 ML VIAL NEB ONE (16:36)
[2023-02-18] MEDS ORDERED: methylPREDNISolone 125 MG/2 ML VIAL IV STA (16:36)
--- NOTE | 2023-02-18 16:43 | Emergency Department Note ---
Impression & Plan Hypoxia, COPD exacerbation, COVID-19 ED Provider Note NAME: NICOLAS YU AGE: 87 SEX: M : 1935 ARRIVES VIA: Walk-In INFORMANT: Patient ED PROVIDER(S): Buzz Mcmahon DO CHIEF COMPLAINT: shortness of breath HPI: Patient is an 87-year-old male who presents the ER for above-stated complaint. He has a past medical history of hypertension, COPD chronically on 2 L nasal cannula at night, heart failure and peripheral vascular disease. He just had a recent admission and was discharged this past Thursday following COVID hypoxia. He notes that he saw his PCP today and was sent in. Shortness of breath has been getting worse since this past Thursday. He has a little bit of a worsening cough. He notes any movement makes him significantly short of breath. Denies any fevers. No headache or change in vision. No chest pain. No dysuria, urgency, or frequency. Has been wearing oxygen chronically and he has been having O2 sats in the low 70s at home. He is increased his oxygen to 3 L chronically now since Thursday. PAST MEDICAL HISTORY:See Below PAST SURGICAL HISTORY:See Below FAMILY HISTORY:See Below SOCIAL HISTORY:See Below HOME MEDICATIONS:See Below ALLERGIES:See Below VITALS:See Below PHYSICAL EXAMINATION: GENERAL: Sitting up in bed, alert, chronically ill-appearing, disheveled on 4 L nasal cannula and dyspneic with conversation EYE EXAM: normal conjunctiva. PERRL and EOM's grossly intact. OROPHARYNX: no exudate, no erythema, lips, buccal mucosa, and tongue normal and mucous membranes are moist NECK: supple, no nuchal rigidity, no adenopathy, non-tender LUNGS: Wheezing bilaterally. Normal chest wall mechanics HEART: no murmurs, S1 normal and S2 normal ABDOMEN: abdomen soft, non-tender, normo-active bowel sounds, no masses, no rebound or guarding. UPPER EXTREMITIES: upper extremities are grossly normal. LOWER EXTREMITIES: Pitting edema bilaterally and calves are equal NEURO EXAM: Normal sensorium, cranial nerves II-XII grossly intact, normal speech, no gross weakness of arms, no gross weakness of legs. MEDICAL DECISION MAKING: Patient is an 87-year-old male who presents ER for above-stated complaint. IV was established blood work was obtained. External records were reviewed. He was hypoxic and placed on 4 L nasal cannula. Was slightly tachycardic. Labs show mild leukocytosis 16,000. No significant anemia. VBG with pH 7.49. BMP with mild hypokalemia 3.2. Troponin was elevated to 51 which actually less than his previous baseline. He is still COVID-positive. Pro-Ash was negative. Chest x-ray appears to be consistent with previous. Patient was given neb treatments as well as steroids. He was updated bedside. Discussed with the hospitalist Dr. Harris Naidu and admitted for further work-up. Triage Nursing notes reviewed. Limited review of prior medical records performed Vital Signs: reviewed and remarkable for hypoxic Differential diagnosis: Differential diagnoses includes but is not limited to pneumonia, bronchitis, COPD/Asthma exacerbation, pneumothorax, pulmonary embolism, congestive heart failure, acute coronary syndrome ER treatment provided: See below Diagnostics interpreted by me include EKG and cardiac monitoring as listed below: -Cardiac Monitoring: An order was placed for continuous cardiac monitoring. The monitor shows a rate of 110 with multifocal atrial tachycardia rhythm. -ECG: Multifocal atrial tachycardia rate of 120 Left axis No PVCs Poor baseline QTc 508 No significant change from previous -Laboratory studies:Interpreted by me as stated above in MDM and shown below. Imaging studies: Xrays: As interpreted by me: Portable AP upright 1 view of the chest shows patchy infiltrates CTs show: none Consultation(s): As described in MDM Procedures:none Critical Care: I have personally spent 32 minutes of critical care time in the direct management of this patient. This includes bedside care, interpretation of diagnostic studies, and testing, discussion with consultants, patient, and family members, and other required patient management activities. This 32 minutes is in excess of all separately billable procedures. Past Med/Surg History Medical History Acute and chronic respiratory failure Acute on chronic diastolic (congestive) heart failure Acute on chronic diastolic (congestive) heart failure Acute on chronic kidney failure Avulsion injury of right elbow region Back problem BPH (benign prostatic hyperplasia) Candidal diaper rash Cellulitis Cellulitis Cellulitis Cellulitis of both lower extremities Cellulitis of left leg Cellulitis of left lower extremity CHI (closed head injury) Chronic obstructive pulmonary disease Chronic respiratory failure with hypoxia Closed hip fracture Contusion of elbow Contusion of face COPD (chronic obstructive pulmonary disease) Early satiety Elevated troponin Fluid retention in legs GERD (gastroesophageal reflux disease) Hematoma of right lower extremity History of bronchitis History of cellulitis Hypernatremia Hypertension Hypothyroidism Hypothyroidism (acquired) Left lumbar radiculopathy Leg length discrepancy Livedo reticularis Lumbar spinal stenosis Lymphedema MRSA (methicillin resistant Staphylococcus aureus) On home oxygen therapy PRISCLIA (obstructive sleep apnea) Osteoarthritis Osteoporosis, unspecified Personal history of MRSA (methicillin resistant Staphylococcus aureus) Pulmonary edema Pulmonary nodule Sepsis Sepsis Skin tear Sleep apnea Spinal stenosis Syncope Urethral stricture Vitamin D deficiency Surgical History History of cardiac cath History of cholecystectomy History of colonoscopy History of herniorrhaphy History of partial knee replacement History of tonsillectomy History of tooth extraction Hx of surgical procedure Family History Mother Cerebral atherosclerosis Father Diverticulosis Other No significant family history Denies family history of Ovarian cancer Prostate cancer Myocardial infarction Breast cancer Colorectal cancer Social History Smoking Status: Former smoker Tobacco Type: Cigarettes Age Started Using Tobacco: 22; packs per day: 1; Cigarettes Per Day: 20; Second Hand Exposure: No; Do You Dip or Chew Tobacco: No; Hx Alcohol Use: No Hx Substance Use: No Preferred Language: Tajik Communication Ability: Effective Visual Impairment: No Limitations Hearing Ability: Normal Client Services Coordinator Required: No Beliefs That Will Affect Care: None marital status: Current Living Situation: Prison current occupational status: retired Feels Safe at Home: Yes Dental Care, Regularly: No Physical Activity Frequency: 1-2 Times per Week Seatbelt Use: always Sunscreen Use: Yes Assistive Devices: Oxygen - at Night and Walker Allergies Allergies Allergy/AdvReac Type Severity Reaction Status Date / Time clarithromycin Allergy Intermediate RASH Verified 02/18/23 15:22 Home Meds Home Medications Medication Instructions Recorded Confirmed magnesium 250 mg tablet 250 mg PO 3XWK 08/02/18 02/18/23 cholecalciferol (vitamin D3) 25 1,000 units PO QAM 05/30/19 02/18/23 mcg (1,000 unit) tablet multivitamin 1 tab PO QAM 09/04/20 02/18/23 diclofenac sodium 1 % topical gel 2 g topical QID 10/23/22 02/18/23 omeprazole 40 mg capsule,delayed 40 mg PO DAILY 11/05/22 02/18/23 release Oxygen Home 12/31/22 02/18/23 bumetanide 2 mg tablet 2 mg PO BID 12/31/22 02/18/23 sennosides 8.6 mg tablet (Senokot) 8.6 mg PO QAM 12/31/22 02/18/23 acetaminophen 325 mg tablet 650 mg PO Q6H PRN FEVER/PAIN 02/11/23 02/18/23 (Tylenol) polyethylene glycol 3350 17 gram 17 g PO DAILY PRN Constipation 02/11/23 02/18/23 oral powder packet (Miralax) tamsulosin 0.4 mg capsule 0.4 mg PO HS 02/11/23 02/18/23 Previous Rx's Medication Instructions Recorded promethazine-DM 6.25 mg-15 mg/5 mL 5 ml PO Q6H PRN cough #473 mL 09/24/21 oral syrup levothyroxine 150 mcg tablet 150 mcg PO QAM #90 tabs 02/03/22 diltiazem HCl 180 mg capsule,24 180 mg PO QAM 90 days #90 caps 04/22/22 hr,extended release (Tiazac) fluticasone fur. 100 mcg-umeclid 1 inh inhalation QAM #3 Inhalers 08/26/22 62.5 mcg-vilant 25 mcg inhalat.powder (Trelegy Ellipta) albuterol sulfate 90 mcg/actuation 2 puff inhalation Q6H #8.5 grams 10/17/22 aerosol inhaler (Ventolin HFA) ipratropium 0.5 mg-albuterol 3 mg 3 ml NEB Q6H PRN 10/17/22 (2.5 mg base)/3 mL nebulization cough/wheeze/dyspnea #1 box soln mupirocin 2 % topical ointment 1 applic topical BID #22 grams 11/10/22 oxycodone 5 mg tablet 2.5 mg PO Q4H PRN Pain #30 tabs 11/20/22 potassium chloride 20 mEq 20 meq PO DAILY #72 tabs 12/12/22 tablet,extended release(part/cryst) sodium chloride 3 % for 4 ml inhalation BID #120 mL 01/02/23 nebulization ciclopirox 8 % topical solution 1 applic topical DAILY #6.6 mL 01/15/23 finasteride 5 mg tablet 5 mg PO DAILY #30 tabs 01/21/23 tobramycin 300 mg/5 mL in 0.225 % 300 mg (5 mL) inhalation BID 28 02/02/23 sodium chloride for nebulization days #280 mL (Josue) dexamethasone 6 mg tablet 6 mg PO DAILY #7 tabs 02/14/23 Results & Data (ED) Vital Signs Vital Signs - 24 hr 02/18/23 16:10 02/18/23 16:25 02/18/23 16:26 Temperature 37.1 C Temperature Source Temporal Artery Scan Pulse Rate 111 H Pulse Rate [Right Finger] 113 H Respiratory Rate 22 22 Respiratory Effort / Characteristics Non-Labored Spontaneous Labored Respiratory Depth Normal Normal Respiratory Pattern Regular Blood Pressure 123/76 Blood Pressure [Left Arm] 136/100 Blood Pressure Mean 91 Blood Pressure Mean [Left Arm] 112 Blood Pressure Position Sitting Pulse Oximetry 89 L 95 Oxygen Delivery Method Nasal Cannula Nasal Cannula Room Air Oxygen Flow Rate 2 4 Sepsis Recent Fever Within 48 Hours No Sepsis New/Unexplained Change in Mental Status N/A Sepsis Action Taken by Nursing No Action Required 02/18/23 16:48 02/18/23 16:48 02/18/23 16:53 Temperature Temperature Source Pulse Rate Pulse Rate [Right Finger] 86 87 Respiratory Rate 24 22 22 Respiratory Effort / Characteristics Labored Spontaneous Short of Breath Respiratory Depth Normal Respiratory Pattern Regular Blood Pressure Blood Pressure [Left Arm] 125/93 Blood Pressure Mean Blood Pressure Mean [Left Arm] 103 Blood Pressure Position Pulse Oximetry 97 97 98 Oxygen Delivery Method Nasal Cannula Nasal Cannula Nasal Cannula Oxygen Flow Rate 4 4 4 Sepsis Recent Fever Within 48 Hours Sepsis New/Unexplained Change in Mental Status Sepsis Action Taken by Nursing 02/18/23 17:28 02/18/23 17:42 02/18/23 18:15 Temperature Temperature Source Pulse Rate 131 H Pulse Rate [Right Finger] 71 116 H Respiratory Rate 22 22 Respiratory Effort / Characteristics Non-Labored Respiratory Depth Normal Respiratory Pattern Blood Pressure Blood Pressure [Left Arm] 137/53 L 109/67 Blood Pressure Mean Blood Pressure Mean [Left Arm] 81 81 Blood Pressure Position Pulse Oximetry 98 93 Oxygen Delivery Method Nebulizer Nasal Cannula Oxygen Flow Rate 4 Sepsis Recent Fever Within 48 Hours Sepsis New/Unexplained Change in Mental Status Sepsis Action Taken by Nursing 02/18/23 19:17 02/18/23 19:51 Temperature Temperature Source Pulse Rate 133 H 128 H Pulse Rate [Right Finger] Respiratory Rate 17 Respiratory Effort / Characteristics Respiratory Depth Respiratory Pattern Blood Pressure 122/61 Blood Pressure [Left Arm] Blood Pressure Mean Blood Pressure Mean [Left Arm] Blood Pressure Position Pulse Oximetry 92 Oxygen Delivery Method Nasal Cannula Oxygen Flow Rate 4 Sepsis Recent Fever Within 48 Hours Sepsis New/Unexplained Change in Mental Status Sepsis Action Taken by Nursing Laboratory Data 02/18/23 16:23 02/18/23 16:23 Lab Results 02/18/23 02/18/23 02/18/23 Range/Units 16:23 16:23 16:33 WBC 16.40 H (4.8-10.8) K/ul RBC 5.22 (4.70-6.10) M/uL Hgb 13.3 L (14.0-18.0) g/dl Hct 42.1 (42.0-52.0) % MCV 80.7 (80.0-100.0) fL MCH 25.5 (25.0-34.0) pg MCHC 31.6 L (32.0-36.0) g/dL RDW Std Deviation 46.3 (36.4-46.3) fL RDW Coeff of Jordan 15.9 H (11.5-14.5) % Plt Count 269 (130-400) K/uL MPV 12.7 H (9.4-12.4) fL Immature Gran % (Auto) 1.3 % Neut % (Auto) 92.2 % Lymph % (Auto) 2.6 % [place] % (Auto) 3.7 % Eos % (Auto) 0.0 % Baso % (Auto) 0.2 % Neut # (Auto) 15.14 H (1.40-6.50) K/uL Lymph # (Auto) 0.42 L (1.2-3.4) K/uL [place] # (Auto) 0.60 H (0.11-0.59) K/uL Eos # (Auto) 0.00 (0-0.50) K/uL Baso # (Auto) 0.03 (0-0.2) K/uL Immature Gran # (Auto) 0.21 H (0.01-0.20) K/uL VBG pH (7.36-7.41) VBG pCO2 (38-50) mmHg VBG pO2 mmHg VBG HCO3 mmol/L VBG O2 Saturation % VBG Base Excess mEq/L Sodium 140 (136-145) mmol/L Potassium 3.2 L (3.5-5.1) mmol/L Chloride 93 L (98-107) mmol/L Carbon Dioxide 34 H (21-32) mmol/L Anion Gap 13 H (3-11) BUN 50 H (6-23) mg/dl Creatinine 1.37 (0.6-1.4) mg/dl Est Cr Clr Drug Dosing 43.4 ml/min Est GFR ( Amer) 53.7 ml/min Est GFR (Non-Af Amer) 46.4 ml/min BUN/Creatinine Ratio 36.5 H (10-20) Glucose 136 H (70-99(Fasting)) mg/dl Calcium 8.7 (8.6-10.3) mg/dl Total Bilirubin 0.5 (0.2-1.0) mg/dl AST 56 H (13-39) U/L ALT 68 H (7-52) U/L Alkaline Phosphatase 68 (34-104) U/L Troponin I High Sens 251.2 H* (0-20) pg/ml C-Reactive Protein 1.17 H (0-0.5) mg/dl Total Protein 7.4 (6.0-8.3) gm/dl Albumin 3.3 L (3.4-5.0) gm/dl Globulin 4.1 H (2.5-4.0) gm/dl Albumin/Globulin Ratio 0.8 L (0.9-2) Lipase 24 (11-82) U/L Procalcitonin 0.06 (0-0.5) ng/ml SARS-CoV-2, RNA, NAAT (NEGATIVE) 02/18/23 02/18/23 Range/Units 16:45 19:06 WBC (4.8-10.8) K/ul RBC (4.70-6.10) M/uL Hgb (14.0-18.0) g/dl Hct (42.0-52.0) % MCV (80.0-100.0) fL MCH (25.0-34.0) pg MCHC (32.0-36.0) g/dL RDW Std Deviation (36.4-46.3) fL RDW Coeff of Jordan (11.5-14.5) % Plt Count (130-400) K/uL MPV (9.4-12.4) fL Immature Gran % (Auto) % Neut % (Auto) % Lymph % (Auto) % [place] % (Auto) % Eos % (Auto) % Baso % (Auto) % Neut # (Auto) (1.40-6.50) K/uL Lymph # (Auto) (1.2-3.4) K/uL [place] # (Auto) (0.11-0.59) K/uL Eos # (Auto) (0-0.50) K/uL Baso # (Auto) (0-0.2) K/uL Immature Gran # (Auto) (0.01-0.20) K/uL VBG pH 7.49 H (7.36-7.41) VBG pCO2 51 H (38-50) mmHg VBG pO2 35 mmHg VBG HCO3 39 mmol/L VBG O2 Saturation < 60.0 % VBG Base Excess 13.4 mEq/L Sodium (136-145) mmol/L Potassium (3.5-5.1) mmol/L Chloride (98-107) mmol/L Carbon Dioxide (21-32) mmol/L Anion Gap (3-11) BUN (6-23) mg/dl Creatinine (0.6-1.4) mg/dl Est Cr Clr Drug Dosing ml/min Est GFR ( Amer) ml/min Est GFR (Non-Af Amer) ml/min BUN/Creatinine Ratio (10-20) Glucose (70-99(Fasting)) mg/dl Calcium (8.6-10.3) mg/dl Total Bilirubin (0.2-1.0) mg/dl AST (13-39) U/L ALT (7-52) U/L Alkaline Phosphatase (34-104) U/L Troponin I High Sens (0-20) pg/ml C-Reactive Protein (0-0.5) mg/dl Total Protein (6.0-8.3) gm/dl Albumin (3.4-5.0) gm/dl Globulin (2.5-4.0) gm/dl Albumin/Globulin Ratio (0.9-2) Lipase (11-82) U/L Procalcitonin (0-0.5) ng/ml SARS-CoV-2, RNA, NAAT POSITIVE A* (NEGATIVE) Administered Medications Discontinued Medications Albuterol (Albut/Ipratrop 3mg/0.5mg Neb 3 Ml Vial) 12 ml NEB ONE ONE; Protocol Stop: 02/18/23 16:37 Last Admin: 02/18/23 16:51 Dose: 12 ml Documented By: SHARDA Bumetanide 1 mg/ Syringe 4 mls @ 4 mls/min IV ONE ONE Stop: 02/18/23 20:12 Last Admin: 02/18/23 20:38 Dose: Not Given Documented By: ML Bumetanide 2 mg/ Syringe 8 mls @ 4 mls/min IV ONE ONE Stop: 02/18/23 20:12 Last Admin: 02/18/23 20:54 Dose: 4 mls/min Documented By: LIOR Methylprednisolone (Methylprednisolone 125 Mg/2 Ml Vial) 60 mg IV NOW STA Stop: 02/18/23 16:37 Last Admin: 02/18/23 16:48 Dose: 60 mg Documented By: RICKEYW Metoprolol Tartrate (Metoprolol Tartrate 1 Mg/Ml Vial) 2.5 mg IV NOW STA Stop: 02/18/23 20:25 Last Admin: 02/18/23 20:38 Dose: 2.5 mg Documented By: LIOR Imaging Data Radiologist's Impression: Chest X-Ray 02/18/23 16:27 XR chest 1V portable HISTORY: 87 years-old Male Chest pain, nonspecific acute chest pain COMPARISON: 02/11/2023 TECHNIQUE: AP view of the chest FINDINGS: Cardiac silhouette is enlarged. Pulmonary vascular congestion. Edema with chronic interstitial coarsening. Mild patchy bilateral airspace opacities are again noted, most pronounced in the lung bases. Small pleural effusions. IMPRESSION: 1. Cardiomegaly with pulmonary vascular congestion and small pleural effusions. 2. Mild patchy bilateral airspace opacities are again noted suggestive of an infectious or inflammatory process, mildly improved within the right upper lobe. 3. Emphysema. ACT 112: Negative or not required by law. The above report was generated using voice recognition software. It may contain grammatical, syntax or spelling errors. Electronically signed by: Denver Will M.D. 02/18/2023 5:16 PM Discharge Plan Visit Data Chief Complaint: Shortness of Breath/Dyspnea Stated Complaint: SOB ED Provider: Buzz Mcmahon Discharge Problem: Hypoxia, COPD exacerbation, COVID-19 Patient Disposition: Admitted As Inpatient Discharge Instructions Interventions: ED Discharge Assessment Last Done: 02/18/23 19:51 Forms Stand Alone Forms: [employer] Prescriptions Prescriptions: No Action promethazine-DM 6.25-15 mg/5 mL syrup 5 ml PO Q6H PRN (Reason: cough) Qty: 473 0RF Rx Instructions: ER Nurse and patient's both stated nothing has changed since pt release on February levothyroxine 150 mcg tablet 150 mcg PO QAM Qty: 90 3RF Rx Instructions: ER Nurse and patient's both stated nothing has changed since pt release on February diltiazem HCl [Tiazac] 180 mg capsule,extended release 24 hr 180 mg PO QAM 90 Days Qty: 90 3RF Rx Instructions: ER Nurse and patient's both stated nothing has changed since pt release on February Trelegy Ellipta 100-62.5-25 mcg blister with device 1 inh INH QAM Qty: 3 3RF Rx Instructions: ER Nurse and patient's both stated nothing has changed since pt release on February tobramycin in 0.225 % NaCl [Josue] 300 mg/5 mL solution for nebulization 300 mg inhalation BID 28 Days Qty: 280 5RF Rx Instructions: ER Nurse and patient's both stated nothing has changed since pt release on February separate doses by at least 6 hours 28 days on then 28 days off then repeat oxycodone 5 mg tablet 2.5 mg PO Q4H PRN (Reason: Pain) Qty: 30 0RF Rx Instructions: ER Nurse and patient's both stated nothing has changed since pt release on February finasteride 5 mg tablet 5 mg PO DAILY Qty: 30 11RF Rx Instructions: ER Nurse and patient's both stated nothing has changed since pt release on February sodium chloride 3 % solution for nebulization 4 ml inhalation BID Qty: 120 3RF Rx Instructions: ER Nurse and patient's both stated nothing has changed since pt release on February 28 days on, 28 days off ciclopirox 8 % solution 1 applic topical DAILY Qty: 6.6 4RF Rx Instructions: ER Nurse and patient's both stated nothing has changed since pt release on February Apply to affected nails daily. Do not wash nails for 8hr post application. Remove w/alcohol every 7 days diclofenac sodium 1 % gel 2 g topical QID Rx Instructions: ER Nurse and patient's both stated nothing has changed since pt release on February apply to single elbow, wrist or hand; for hand includes palm/fingers/back of hand mupirocin 2 % ointment 1 applic topical BID Qty: 22 0RF Rx Instructions: ER Nurse and patient's both stated nothing has changed since pt release on February potassium chloride 20 mEq tablet,ER particles/crystals 20 meq PO DAILY Qty: 72 3RF Rx Instructions: ER Nurse and patient's both stated nothing has changed since pt release on February bumetanide 2 mg tablet 2 mg PO BID Rx Instructions: May increase to 4 mg BID PRN for weight gain, edema, SOB ER Nurse and patient's both stated nothing has changed since pt release on February sennosides [Senokot] 8.6 mg tablet 8.6 mg PO QAM Rx Instructions: ER Nurse and patient's both stated nothing has changed since pt release on February (DME) Oxygen Home Liters Per Minute See Rx Instructions .Route Rx Instructions: As directed magnesium 250 mg Tablet 250 mg PO 3XWK Rx Instructions: ER Nurse and patient's both stated nothing has changed since pt release on February,Thursday,Thursday cholecalciferol (vitamin D3) 1,000 unit (25 mcg) tablet 1,000 units PO QAM Rx Instructions: ER Nurse and patient's both stated nothing has changed since pt release on February multivitamin Tablet 1 tab PO QAM Rx Instructions: ER Nurse and patient's both stated nothing has changed since pt release on February ipratropium-albuterol 0.5 mg-3 mg(2.5 mg base)/3 mL Solution For Nebulization 3 ml NEB Q6H PRN (Reason: cough/wheeze/dyspnea) Qty: 1 0RF Rx Instructions: ER Nurse and patient's both stated nothing has changed since pt release on February albuterol sulfate [Ventolin HFA] 90 mcg/actuation HFA aerosol inhaler 2 puff inhalation Q6H Qty: 8.5 5RF Rx Instructions: ER Nurse and patient's both stated nothing has changed since pt release on February omeprazole 40 mg capsule,delayed release(DR/EC) 40 mg PO DAILY Rx Instructions: ER Nurse and patient's both stated nothing has changed since pt release on February acetaminophen [Tylenol] 325 mg Tablet 650 mg PO Q6H PRN (Reason: FEVER/PAIN) Rx Instructions: ER Nurse and patient's both stated nothing has changed since pt release on February polyethylene glycol 3350 [Miralax] 17 gram powder in packet 17 g PO DAILY PRN (Reason: Constipation) Rx Instructions: ER Nurse and patient's both stated nothing has changed since pt release on February tamsulosin 0.4 mg capsule 0.4 mg PO HS Rx Instructions: ER Nurse and patient's both stated nothing has changed since pt release on February dexamethasone 6 mg tablet 6 mg PO DAILY Qty: 7 0RF Rx Instructions: ER Nurse and patient's both stated nothing has changed since pt release on February Referrals Referrals: Luciano Downing III, MD [Physician] -
[2023-02-18 16:46] LABS: Hematocrit (blood only) 42.1 % (42.0-52.0); Hemoglobin 13.3 g/dl (14.0-18.0); Mean Corpuscular Hemoglobin 25.5 pg (25.0-34.0); Mean Corpuscular Hgb Conc 31.6 g/dL (32.0-36.0); Mean Corpuscular Volume 80.7 fL (80.0-100.0); Mean Platelet Volume 12.7 fL (9.4-12.4); Platelet Count 269 K/uL (130-400); RDW Coefficient of Variation 15.9 % (11.5-14.5); RDW Standard Deviation 46.3 fL (36.4-46.3); Red Blood Count 5.22 M/uL (4.70-6.10)
[2023-02-18 16:59] LABS: Albumin Globulin Ratio 0.8 (0.9-2); Albumin Level 3.3 gm/dl (3.4-5.0); BUN Creatinine Ratio 36.5 (10-20); Bilirubin,Total 0.5 mg/dl (0.2-1.0); Calcium 8.7 mg/dl (8.6-10.3); Creatinine Clr Calc Pharmacy 43.4 ml/min; Est GFR (African American) 53.7 ml/min; Est GFR (Non-African American) 46.4 ml/min; Globulin 4.1 gm/dl (2.5-4.0); Potassium 3.2 mmol/L (3.5-5.1); Total Protein 7.4 gm/dl (6.0-8.3)
[2023-02-18 17:06] LABS: Basophils # (auto) 0.03 K/uL (0-0.2); Basophils % (auto) 0.2 %; Immature Granulocytes # (auto) 0.21 K/uL (0.01-0.20); Immature Granulocytes % (auto) 1.3 %; Lymphocytes # (auto) 0.42 K/uL (1.2-3.4); Lymphocytes % (auto) 2.6 %; Monocytes % (auto) 3.7 %; Neutrophils # (auto) 15.14 K/uL (1.40-6.50); Neutrophils % (auto) 92.2 %
--- NOTE | 2023-02-18 17:17 | XRay Report ---
XR chest 1V portable HISTORY: 87 years-old Male Chest pain, nonspecific acute chest pain COMPARISON: 02/11/2023 TECHNIQUE: AP view of the chest FINDINGS: Cardiac silhouette is enlarged. Pulmonary vascular congestion. Edema with chronic interstitial coarse hermes. Mild patchy bilateral airspace opacities are again noted, most pronounced in the lung bases. Sm all pleural effusions. IMPRESSION: 1. Cardiomegaly with pulmonary vascular congestion and small pleural effusions. 2. Mild patchy bilateral airspace opacities are again noted suggestive of an infectious or inflammato ry process, mildly improved within the right upper lobe. 3. Emphysema. ACT 112: Negative or not required by law. The above report was generated using voice recognition software. It may contain grammatical, syntax o r spelling errors. Electronically signed by: Denver Will M.D. 02/18/2023 5:16 PM
[2023-02-18 17:18] LABS: Troponin I High Sensitivity 251.2 pg/ml (0-20)
[2023-02-18 18:43] LABS: C Reactive Protein 1.17 mg/dl (0-0.5)
[2023-02-18 19:16] LABS: Base Excess VBG 13.4 mEq/L; HCO3 VBG 39 mmol/L; Oxygen Saturation VBG < 60.0 %; PCO2 VBG 51 mmHg (38-50); PO2 VBG 35 mmHg; pH VBG 7.49 (7.36-7.41)
[2023-02-18] MEDS ORDERED: BUMETANIDE 2 MG in SYRINGE 0 ML IV ONE (20:11)
[2023-02-18] MEDS ORDERED: BUMETANIDE 1 MG in SYRINGE 0 ML IV ONE (20:11)
[2023-02-18] MEDS ORDERED: METOPROLOL TARTRATE 1 MG/ML VIAL IV STA (20:24)
[2023-02-18] MEDS ORDERED: POLYETHYLENE (MIRALAX) 17 GM PACK PO PRN (21:08)
--- NOTE | 2023-02-18 21:08 | History & Physical Report ---
Date of Service February 18, 2023 Assessment & Plan (1) Acute hypoxemic respiratory failure: Plan: Acute hypoxic respiratory failure in a 87 yo male with PMH of COPD and recent COVID 19 Patient will be admitted to PCU due to his tachycardia Patient is currently requiring 4 liters, baseline is 2 liters at bedtime. Last discharge patient had a 2 step: 3 liters only on ambulation Patient appeared wet on exam, with crackles and sputum production. INital plan was to hold antibiotics and treat with diuretics. At home takes Bumex PO BID will order bumex IV BID. will obtain BNP. Ordered CT scan: given that patient has a consolidation, will consult pulm, may require a bronch. Obtain sputum culture and place on cefepime and doxy. (2) COVID-19: Plan: Patient was discharged with a recent covid 19 diagnosis. Patient placed on decadron, requires 3 more days of his 10 days course (3) COPD exacerbation: Plan: COPD Will treat with cefepime and doxycycline nebs ordered CT scan findings as above. (4) Hypertension: Plan: resume home meds. (5) Multifocal atrial tachycardia: Plan: Telemetry.No need for heparin drip. Continue diltiazem, likely albuterol and adrenergic response from his distress feeding into tachycardia, will give one time dose of IV metoprolol and will monitor. Anticipate as he improves, the patient's HR will improve. (6) Hypothyroidism: Plan: resume levothyroxine. Plan CPAP in evening for Obstructive sleep apnea. History of Present Illness Chief Complaint: SOB Primary Care Provider: Tyler Hawkins MD 87 yo male with PMH of COPD on home oxygen therapy with 2 L oxygen supplementation at bedtime, diastolic CHF, hypothyroidism, hypertension returns to the [facility] after 2 recent hospital stays. Patient was admitted for sepsis in Early January for COPD flair, and then discharged to SNF. Patient returned for COVID 19 and was treated with decadron. Patient's oxygen requirements slowly improved to the point where patient only required 3 liters on ambulation, none at rest. Patient had PT and was stated he can return home on home health. However, once he was home, his oxygen requirements lily, and required at least 2 liters at rest, and then 4 liters continuously. Patient reports having clear sputum production. Patient states he was compliant with his decadron and only has 3 tablets left. Patient denies any fever, chills. Patient arrives in the ED where the ED provider gave patient IV methylprednisolone and albuterol treatment. Chest x ray shows bilateral patchy infiltrates and admission was called. Allergies Allergy/AdvReac Type Severity Reaction Status Date / Time clarithromycin Allergy Intermediate RASH Verified 02/18/23 15:22 Home Medications Medication Instructions Recorded Confirmed Type magnesium 250 mg tablet 250 mg PO 3XWK 08/02/18 02/18/23 History cholecalciferol (vitamin D3) 25 1,000 units PO QAM 05/30/19 02/18/23 History mcg (1,000 unit) tablet multivitamin 1 tab PO QAM 09/04/20 02/18/23 History promethazine-DM 6.25 mg-15 mg/5 mL 5 ml PO Q6H PRN cough #473 mL 09/24/21 02/18/23 Rx oral syrup levothyroxine 150 mcg tablet 150 mcg PO QAM #90 tabs 02/03/22 02/18/23 Rx diltiazem HCl 180 mg capsule,24 180 mg PO QAM 90 days #90 caps 04/22/22 02/18/23 Rx hr,extended release (Tiazac) fluticasone fur. 100 mcg-umeclid 1 inh inhalation QAM #3 Inhalers 08/26/22 02/18/23 Rx 62.5 mcg-vilant 25 mcg inhalat.powder (Trelegy Ellipta) albuterol sulfate 90 mcg/actuation 2 puff inhalation Q6H #8.5 grams 10/17/22 02/18/23 Rx aerosol inhaler (Ventolin HFA) ipratropium 0.5 mg-albuterol 3 mg 3 ml NEB Q6H PRN 10/17/22 02/18/23 Rx (2.5 mg base)/3 mL nebulization cough/wheeze/dyspnea #1 box soln diclofenac sodium 1 % topical gel 2 g topical QID 10/23/22 02/18/23 History omeprazole 40 mg capsule,delayed 40 mg PO DAILY 11/05/22 02/18/23 History release mupirocin 2 % topical ointment 1 applic topical BID #22 grams 11/10/22 02/18/23 Rx oxycodone 5 mg tablet 2.5 mg PO Q4H PRN Pain #30 tabs 11/20/22 02/18/23 Rx potassium chloride 20 mEq 20 meq PO DAILY #72 tabs 12/12/22 02/18/23 Rx tablet,extended release(part/cryst) Oxygen Home 12/31/22 02/18/23 History bumetanide 2 mg tablet 2 mg PO BID 12/31/22 02/18/23 History sennosides 8.6 mg tablet (Senokot) 8.6 mg PO QAM 12/31/22 02/18/23 History sodium chloride 3 % for 4 ml inhalation BID #120 mL 01/02/23 02/18/23 Rx nebulization ciclopirox 8 % topical solution 1 applic topical DAILY #6.6 mL 01/15/23 02/18/23 Rx finasteride 5 mg tablet 5 mg PO DAILY #30 tabs 01/21/23 02/18/23 Rx tobramycin 300 mg/5 mL in 0.225 % 300 mg (5 mL) inhalation BID 28 02/02/23 02/18/23 Rx sodium chloride for nebulization days #280 mL (Josue) acetaminophen 325 mg tablet 650 mg PO Q6H PRN FEVER/PAIN 02/11/23 02/18/23 History (Tylenol) polyethylene glycol 3350 17 gram 17 g PO DAILY PRN Constipation 02/11/23 02/18/23 History oral powder packet (Miralax) tamsulosin 0.4 mg capsule 0.4 mg PO HS 02/11/23 02/18/23 History dexamethasone 6 mg tablet 6 mg PO DAILY #7 tabs 02/14/23 02/18/23 Rx Past Med/Surg History Medical History (Updated 02/19/23 @ 08:08 by Harris Haque) Acute and chronic respiratory failure Acute on chronic diastolic (congestive) heart failure Acute on chronic diastolic (congestive) heart failure Acute on chronic kidney failure Avulsion injury of right elbow region Back problem BPH (benign prostatic hyperplasia) Candidal diaper rash Cellulitis Cellulitis Cellulitis Cellulitis of both lower extremities Cellulitis of left leg Cellulitis of left lower extremity CHI (closed head injury) Chronic obstructive pulmonary disease Chronic respiratory failure with hypoxia Closed hip fracture Contusion of elbow Contusion of face COPD (chronic obstructive pulmonary disease) Early satiety Elevated troponin Fluid retention in legs GERD (gastroesophageal reflux disease) Hematoma of right lower extremity History of bronchitis History of cellulitis Hypernatremia Hypertension Hypothyroidism Hypothyroidism (acquired) Left lumbar radiculopathy Leg length discrepancy Livedo reticularis Lumbar spinal stenosis Lymphedema MRSA (methicillin resistant Staphylococcus aureus) On home oxygen therapy 02 2LPM AT HS PRISCILA (obstructive sleep apnea) Osteoarthritis Osteoporosis, unspecified Personal history of MRSA (methicillin resistant Staphylococcus aureus) Pulmonary edema Pulmonary nodule Sepsis Sepsis Skin tear Sleep apnea cpap Spinal stenosis Syncope Urethral stricture Vitamin D deficiency Surgical History History of cardiac cath 12/2019 - [place] - increased edema - no stents/angioplasty History of cholecystectomy History of colonoscopy History of herniorrhaphy left inguinal History of partial knee replacement left History of tonsillectomy History of tooth extraction Hx of surgical procedure LEFT FEMUR FX WITH REPAIR Family History Mother Cerebral atherosclerosis Father Diverticulosis Other No significant family history Denies family history of Ovarian cancer Prostate cancer Myocardial infarction Breast cancer Colorectal cancer Social History Smoking Status: Former smoker Tobacco Type: Cigarettes Age Started Using Tobacco: 22; packs per day: 1; Cigarettes Per Day: 20; Second Hand Exposure: No; Do You Dip or Chew Tobacco: No; Tobacco Cessation Education Requested by Patient: No Hx Alcohol Use: No Hx Substance Use: No Preferred Language: [place] Communication Ability: Effective Visual Impairment: No Limitations Hearing Ability: Normal [employer] 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[employer] 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: No Beliefs That Will Affect Care: None marital status: Current Living Situation: Spouse current occupational status: retired Other Information That Helps Us Care for You: No Feels Safe at Home: Yes Safety Concerns: Feels Safe At This Time Dental Care, Regularly: No Physical Activity Frequency: 1-2 Times per Week Seatbelt Use: always Sunscreen Use: Yes Assistive Devices: Glasses, Hearing Aid - Bilateral, Oxygen - at Night, Oxygen - Continuous and Walker Review of Systems Review of Systems: Const: no fever, chills ENT- no epistaxis Eyes: No blurry vision Respiratory-presents with shortness of breath Cardiac-no palpitations, no chest pain, GI-no nausea, vomiting, diarrhea, -no urinary retention, no urinary incontinence, Musculoskeletal-no joint pain, no muscle tenderness Skin-no bruising, Neuro-no isolated weakness, Physical Exam Physical Exam: General: Patient appears to be in moderate distress, using accessory muscles to breath, A&Ox3. NAD. Cooperative. HEENT: Atraumatic, normocephalic. Vision/hearing grossly intact Pulm: Coarse breath sounds with rales, Symmetrical chest rise. Cardiac: tachycardic. Radial pulses intact and symmetrical. No JVD. Abdominal: Nontender, nondistended, soft. BS present. Extremities: Warm, dry. Compression stockings are on feet bilaterally, underlying ankle pitting edema is present bilaterally. Results & Data Results & Data Vital Signs (Past 12 Hours) Vital Signs Temp Pulse Pulse Resp BP BP Pulse Ox 02/18/23 19:51 128 H 17 122/61 92 02/18/23 19:17 133 H 02/18/23 18:15 116 H 22 109/67 93 02/18/23 17:42 131 H 02/18/23 17:28 71 22 137/53 L 98 02/18/23 16:53 87 22 98 02/18/23 16:48 86 22 125/93 97 02/18/23 16:48 24 97 02/18/23 16:26 113 H 22 136/100 95 02/18/23 16:25 02/18/23 16:10 37.1 C 111 H 22 123/76 89 L O2 Del Method O2 Flow Rate 02/18/23 19:51 Nasal Cannula 4 02/18/23 19:17 02/18/23 18:15 Nasal Cannula 4 02/18/23 17:42 02/18/23 17:28 Nebulizer 02/18/23 16:53 Nasal Cannula 4 02/18/23 16:48 Nasal Cannula 4 02/18/23 16:48 Nasal Cannula 4 02/18/23 16:26 Room Air 02/18/23 16:25 Nasal Cannula 4 02/18/23 16:10 Nasal Cannula 2 PG Care Time/CCT Total # of Minutes Spent Total Time Spent with Patient: Total time spent is greater than 50% in coordination of care (as documented) at patient's floor/unit and/or counseling patient: Coding Level of Care Code 37073 INT INP/OBS CARE 3/75MIN Diagnoses Acute hypoxemic respiratory failure J96.01 COVID-19 U07.1 COPD exacerbation J44.1 Hypertension I10 Multifocal atrial tachycardia I47.1 Hypothyroidism E03.9 Hypothyroidism type: unspecified (6) Hypothyroidism Hypothyroidism type: unspecified Qualified Code(s): E03.9 - Hypothyroidism, unspecified
[2023-02-18] MEDS ORDERED: SODIUM CHLORIDE INH SCH (21:15)
[2023-02-18] MEDS ORDERED: [UNRECOGNIZED DRUG - OTHER] INH SCH (21:15)
[2023-02-18] MEDS ORDERED: TOBRAMYCIN INH SCH (21:15)
--- NOTE | 2023-02-18 21:31 | CT Scan Report ---
Exam(s): CT CHEST Without Contrast EXAM: CT Chest Without Intravenous Contrast CLINICAL HISTORY: Reason for exam: HYPOXIA. TECHNIQUE: Axial computed tomography images of the chest without intravenous contrast. CTDI is 19.15 mGy and DLP is 642.43 mGy-cm. Automated exposure control was utilized for the study. A dose lowering technique was utilized adhering to the principles of ALARA. COMPARISON: No relevant prior studies available. FINDINGS: Lungs: Atelectasis. Moderate centrilobular emphysema. No pleural effusion or pneumothorax. Irregular nodular opacity in the inferior aspect of the RIGHT upper lobe, which measures approximately 2.3 x 1.8 cm. When compared to January 27, 2023, this may represent residual infiltrates. Continued follow-up recommended to document resolution. Pleural space: See above. Heart: Cardiomegaly. No pericardial effusion. No significant coronary artery calcifications. Bones/joints: Degenerative changes of the spine. No acute fracture. No dislocation. Soft tissues: Unremarkable. Vasculature: Atherosclerotic changes of the aorta. Atherosclerotic changes of aorta. No thoracic aortic aneurysm. Lymph nodes: Unremarkable. No enlarged lymph nodes. IMPRESSION: Irregular nodular opacity in the inferior aspect of the RIGHT upper lobe, which measures approximately 2.3 x 1.8 cm. When compared to January 27, 2023, this may represent residual infiltrates. Continued follow-up recommended to document resolution. Moderate centrilobular emphysema. No pleural effusion or pneumothorax. Electronically signed by: Darrius Cruz MD 02/18/23 21:30 PM
[2023-02-18] MEDS ORDERED: guaiFENesin/DEXTROM SYRUP 100MG/10MG 5ML UDC PO PRN (22:24)
[2023-02-18] MEDS: TOBRAMYCIN 300MG NEB INH SCH (23:04)
[2023-02-18] MEDS: CEFEPIME 2,000 MG in SYRINGE 0 ML IV SCH (23:25)
[2023-02-18] MEDS: DOXYCYCLINE HYCLATE 100 MG in DEXTROSE 5% 100 ML IV SCH (23:26)
[2023-02-18] MEDS: [UNRECOGNIZED DRUG - OTHER] SCH (23:38)
[2023-02-18] MEDS ORDERED: LEVALBUTEROL 1.25 MG/3 ML NEB ONE (23:53)
[2023-02-19] MEDS: LEVALBUTEROL 1.25 MG/3 ML NEB NEB SCH ×4 (00:22→19:59)
[2023-02-19] MEDS: LEVOTHYROXINE SODIUM 150 MCG TABLET PO SCH (06:49)
[2023-02-19] MEDS ORDERED: SODIUM CHLOR 7% 4 ML NEB INH SCH (07:00)
[2023-02-19] MEDS: [UNRECOGNIZED DRUG - OTHER] SCH ×2 (07:05→15:04)
[2023-02-19] MEDS: TOBRAMYCIN 300MG NEB INH SCH (07:41)
--- NOTE | 2023-02-19 08:05 | Hospitalist Progress Note ---
Date of Service February 19, 2023 Assessment & Plan (1) Acute hypoxemic respiratory failure: Plan: Acute hypoxic respiratory failure in a 87 yo male with PMH of COPD and recent COVID 19 Patient is currently requiring 4 liters, baseline is 2 liters at bedtime. will order bumex IV BID. Cardiology wishes to keep negative fluid balance CT chest shows L irregular nodular opacity in the inferior aspect of the right upper lobe which measures 2.3 x 1.8 this may be residual infiltrates from previous CT scan from January [address] on cefepime and doxy. (2) COVID-19: Plan: Patient was discharged with a recent covid 19 diagnosis. Patient placed on decadron, requires 3 more days of his 10 days course (3) Hypertension: Plan: Chronic and stable on diltiazem and Bumex (4) COPD exacerbation: Plan: COPD Will treat with cefepime and doxycycline and dexamethasone for COVID also for COPD nebs ordered (5) Multifocal atrial tachycardia: Plan: Continue diltiazem, likely albuterol and adrenergic response from his distress feeding into tachycardia, Tachycardia is brought on by physiological stress (6) Hypothyroidism: Plan: resume levothyroxine. Plan CPAP in evening for Obstructive sleep apnea. Admission and Anticipated Discharge Date Admission Date: February 18, 2023 Subjective Patient in no significant distress still requiring oxygen supplementation that exceeds his baseline. Cardiology wishes to continue diuresis to try to keep in a negative fluid balance patient also recovering from COVID with baseline of COPD Physical Exam Physical Exam: Patient's pulm exam is abnormal with basilar rhonchi with rales above cardiac exam is irregular but rate controlled no overt murmurs Results & Data Results & Data Vital Signs (Past 12 Hours) Vital Signs Temp Pulse Pulse Resp BP Pulse Ox O2 Del Method 02/19/23 07:41 98 H 20 93 Nasal Cannula 02/19/23 07:38 98 H 02/19/23 02:54 97.5 F L 95 H 18 106/65 96 Nasal Cannula 02/19/23 00:22 107 H 20 97 Nasal Cannula 02/18/23 22:10 Nasal Cannula 02/18/23 22:00 97.7 F 129 H 19 115/70 94 Nasal Cannula O2 Flow Rate 02/19/23 07:41 4 02/19/23 07:38 02/19/23 02:54 4 02/19/23 00:22 5 02/18/23 22:10 4 02/18/23 22:00 4 Laboratory Results Reviewed CBC reviewed chemistry PG Care Time/CCT Total # of Minutes Spent Total Time Spent with Patient: Total time spent is greater than 50% in coordination of care (as documented) at patient's floor/unit and/or counseling patient: Coding Level of Care Code 29671 SUB INP/OBS CARE 2/35MIN Diagnoses Acute hypoxemic respiratory failure J96.01 COVID-19 U07.1 Hypertension I10 COPD exacerbation J44.1 Multifocal atrial tachycardia I47.1 Hypothyroidism E03.9 Hypothyroidism type: unspecified (6) Hypothyroidism Hypothyroidism type: unspecified Qualified Code(s): E03.9 - Hypothyroidism, unspecified
[2023-02-19] MEDS ORDERED: HEPARIN SOD 5,000 UNIT/0.5 ML VIAL SQ STA (08:19)
[2023-02-19] MEDS: SENNA 8.6 MG TAB PO SCH (08:21)
[2023-02-19] MEDS: dilTIAZem HCL 180 MG CAPCR PO SCH (08:22)
[2023-02-19] MEDS: FINASTERIDE 5 MG TAB PO SCH (08:22)
[2023-02-19] MEDS: CHOLECALCIFEROL 1,000 UNITS 25 MCG TAB PO SCH (08:22)
[2023-02-19] MEDS: MULTIVITAMIN TAB PO SCH (08:22)
[2023-02-19] MEDS: PANTOprazole 40 MG TAB PO SCH (08:22)
[2023-02-19] MEDS: DICLOFENAC SOD 1% GEL 100 GM TUBE EXT SCH ×4 (08:23→20:30)
[2023-02-19] MEDS: MUPIROCIN 2% OINT 22 GM TUBE TOP SCH ×2 (08:23→20:31)
[2023-02-19] MEDS: FLUTICASONE FUROATE 100MCG 14 PUFFS/INHALER INH SCH (08:24)
[2023-02-19] MEDS: UMECLIDINIUM/VILANTEROL 62.5/25MCG 7 PUFFS/INHALER INH SCH (08:24)
[2023-02-19] MEDS ORDERED: NON-FORMULARY MEDICATION (Fluticasone-Umeclidin-Vilanter [Trelegy Ellipta] 100-62.5-25 mcg INH SCH (09:00)
[2023-02-19] MEDS ORDERED: dexAMETHasone 4 MG TAB PO SCH (09:00)
[2023-02-19] MEDS ORDERED: POTASSIUM CHLORIDE CRTAB 20 MEQ TABCR PO SCH (09:00)
[2023-02-19 09:36] LABS: Hematocrit (blood only) 35.2 % (42.0-52.0); Hemoglobin 11.3 g/dl (14.0-18.0); Mean Corpuscular Hemoglobin 25.8 pg (25.0-34.0); Mean Corpuscular Hgb Conc 32.1 g/dL (32.0-36.0); Mean Corpuscular Volume 80.4 fL (80.0-100.0); Mean Platelet Volume 12.5 fL (9.4-12.4); Platelet Count 209 K/uL (130-400); RDW Standard Deviation 46.6 fL (36.4-46.3); Red Blood Count 4.38 M/uL (4.70-6.10); White Blood Count 10.73 K/ul (4.8-10.8)
[2023-02-19 10:24] LABS: Calcium 8.1 mg/dl (8.6-10.3); Magnesium 1.6 mg/dl (1.7-2.4); Potassium 3.1 mmol/L (3.5-5.1)
[2023-02-19 10:30] LABS: Creatinine Clr Calc Pharmacy 44.1 ml/min; Est GFR (African American) 54.2 ml/min; Est GFR (Non-African American) 46.8 ml/min
[2023-02-19] MEDS: DOXYCYCLINE HYCLATE 100 MG in DEXTROSE 5% 100 ML IV SCH ×2 (11:56→22:25)
[2023-02-19] MEDS: CEFEPIME 2,000 MG in SYRINGE 0 ML IV SCH ×2 (11:56→22:25)
--- NOTE | 2023-02-19 12:32 | Cardiology Consultation ---
Date of Consultation February 19, 2023 Assessment & Plan (1) Acute hypoxemic respiratory failure: (2) Multifocal atrial tachycardia: (3) Hypertension: (4) COVID-19: (5) Elevated troponin: (6) Edema: Plan ASSESSMENT/PLAN: 1. Acute hypoxemic respiratory failure: Most likely respiratory etiology given COPD and COVID-19 infection. Is on large diuretic dosing at home and therefore will arrange for Bumex 2 mg IV twice daily, which is his home dose but in IV form. Would maintain net negative fluid balance as long as renal function tolerates. 2. Multifocal atrial tachycardia: Asymptomatic. Continue diltiazem. Likely due to COPD. 3. Hypertension: Blood pressure acceptable. No changes at this time. 4. COVID-19 infection: As per pulmonology and hospitalist service. 5. Elevated troponin: Likely due to demand ischemia. Troponin is actually lower than it was on 02/14/2023 and may be trending downward. He did not present with acute coronary syndrome. No ischemic evaluation necessary at this time. 6. Edema: Based on record review, this is a chronic issue. He had significant edema in 2019 with shortness of breath and underwent right heart catheterization which reported normal pulmonary capillary wedge pressure. Edema has been attributed to lymphedema and hypoalbuminemia. No obvious intravascular hypervolemia currently. Chronically on diuretics and can continue while hospitalized as tolerated. 7. Disposition: Cardiology will sign off. Please call with questions or concerns. Patient care communicated with Dr. Pickett of the primary hospitalist service. Thank you for allowing me to participate in the care of your patient. Please call for any other questions or concerns. Sincerely, Sukumar Carter M.D. History of Present Illness Reason for Consultation: "tachycardia/ concern over possible CHF" Requesting Physician: Harris Haque Attending Physician: Edmundo Pickett MD History of Present Illness Mr. Wesley is a very pleasant 87-year-old gentleman with a history significant for COPD, hypertension, multifocal atrial tachycardia, lymphedema, and spinal stenosis. She has followed in the heart failure program for edema thought to be due to hypoalbuminemia and lymphedema as the main contributors. He underwent a right heart catheterization on 12/23/2019 for edema and shortness of breath. He has had the following's studies/procedures: 1. 12/22/20 Venous reflux duplex: RT GSV dilated but no reflux. RT SSV dilated with borderline reflux. LT GSV dilated with reflux below the knee. LT SSV not dilated, no reflux. Significant subcutaneous edema. Complex fluid collection in the right medial calf. 2. 12/30/19 Right heart catheterization: Normal right and left sided filling pressures. Normal PA pressures. Normal cardiac output. No IVC/bilateral iliac obstructive venous disease. 3. 03/28/21 Echo: LV systolic function is normal. EF 50-55%. Borderline RV enlargement. Mild AR. RVSP elevated 40-50 mmHg. 4. 10/05/22 Echo: LV normal size. Moderate concentric LVH. EF 50-55%. No WMA. RV normal size/function. Mild AI. RVSP elevated 30-40mmHg. He was admitted on 02/18/2023 with shortness of breath and diagnosed with acute hypoxemic respiratory failure. He had been discharged on 12/04 after treated for COVID-19 infection and acute hypoxemic respiratory failure. He reports that after being discharged, he has had increased shortness of breath, orthopnea, increased edema, and increased weight gain at times. He took additional Bumex several days ago and reports significantly increased urine output but symptoms continued. He maintains a low-sodium diet. Since admission here yesterday, he notes improvement in his breathing. He has been administered Bumex 2 mg IV x1. He also has received cefepime, dexamethasone, methylprednisolone and inhaled tobramycin, and nebulizer treatments. He reports improvement with nebulizer treatments as well. He has been coughing green sputum. He denies fevers or chills. He denies chest pain, palpitations, melena, hematochezia, or hematuria. He reports syncope sev eral months ago during a bowel movement and otherwise becoming somewhat unresponsive during a septic episode, but nothing new since last hospitalization. Review of systems: As above. Review of systems otherwise negative/unremarkable. Family history: Noncontributory. Social history: He quit smoking approximately 20 years ago. No alcohol or drug abuse. He lives at home with his . He has 2 sons. He was unaccompanied in his hospital room. Allergies Allergy/AdvReac Type Severity Reaction Status Date / Time clarithromycin Allergy Intermediate RASH Verified 02/18/23 15:22 Home Medications Medication Instructions Recorded Confirmed Type magnesium 250 mg tablet 250 mg PO [id number] 11/19/18 06/07/23 History cholecalciferol (vitamin D3) 25 1,000 units PO QAM 05/30/19 02/18/23 History mcg (1,000 unit) tablet multivitamin 1 tab PO QAM 09/04/20 02/18/23 History promethazine-DM 6.25 mg-15 mg/5 mL 5 ml PO Q6H PRN cough #473 mL 09/24/21 02/18/23 Rx oral syrup levothyroxine 150 mcg tablet 150 mcg PO QAM #90 tabs 02/03/22 02/18/23 Rx diltiazem HCl 180 mg capsule,24 180 mg PO QAM 90 days #90 caps 04/22/22 02/18/23 Rx hr,extended release (Tiazac) fluticasone fur. 100 mcg-umeclid 1 inh inhalation QAM #3 Inhalers 08/26/22 02/18/23 Rx 62.5 mcg-vilant 25 mcg inhalat.powder (Trelegy Ellipta) albuterol sulfate 90 mcg/actuation 2 puff inhalation Q6H #8.5 grams 10/17/22 02/18/23 Rx aerosol inhaler (Ventolin HFA) ipratropium 0.5 mg-albuterol 3 mg 3 ml NEB Q6H PRN 10/17/22 02/18/23 Rx (2.5 mg base)/3 mL nebulization cough/wheeze/dyspnea #1 box soln diclofenac sodium 1 % topical gel 2 g topical QID 10/23/22 02/18/23 History omeprazole 40 mg capsule,delayed 40 mg PO DAILY 11/05/22 02/18/23 History release mupirocin 2 % topical ointment 1 applic topical BID #22 grams 11/10/22 02/18/23 Rx oxycodone 5 mg tablet 2.5 mg PO Q4H PRN Pain #30 tabs 11/20/22 02/18/23 Rx potassium chloride 20 mEq 20 meq PO DAILY #72 tabs 12/12/22 02/18/23 Rx tablet,extended release(part/cryst) Oxygen Home 12/31/22 02/18/23 History bumetanide 2 mg tablet 2 mg PO BID 12/31/22 02/18/23 History sennosides 8.6 mg tablet (Senokot) 8.6 mg PO QAM 12/31/22 02/18/23 History sodium chloride 3 % for 4 ml inhalation BID #120 mL 01/02/23 02/18/23 Rx nebulization ciclopirox 8 % topical solution 1 applic topical DAILY #6.6 mL 01/15/23 02/18/23 Rx finasteride 5 mg tablet 5 mg PO DAILY #30 tabs 01/21/23 02/18/23 Rx tobramycin 300 mg/5 mL in 0.225 % 300 mg (5 mL) inhalation BID 28 02/02/23 02/18/23 Rx sodium chloride for nebulization days #280 mL (Josue) acetaminophen 325 mg tablet 650 mg PO Q6H PRN FEVER/PAIN 02/11/23 02/18/23 History (Tylenol) polyethylene glycol 3350 17 gram 17 g PO DAILY PRN Constipation 02/11/23 02/18/23 History oral powder packet (Miralax) tamsulosin 0.4 mg capsule 0.4 mg PO HS 02/11/23 02/18/23 History dexamethasone 6 mg tablet 6 mg PO DAILY #7 tabs 02/14/23 02/18/23 Rx Patient History Medical History (Updated 02/19/23 @ 13:13 by Kwasi Carter MD) Acute and chronic respiratory failure Acute on chronic diastolic (congestive) heart failure Acute on chronic kidney failure Avulsion injury of right elbow region Back problem BPH (benign prostatic hyperplasia) Candidal diaper rash Cellulitis of both lower extremities Cellulitis of left leg Cellulitis of left lower extremity CHI (closed head injury) Chronic obstructive pulmonary disease Chronic respiratory failure with hypoxia Closed hip fracture Contusion of elbow Contusion of face COPD (chronic obstructive pulmonary disease) Early satiety Elevated troponin Fluid retention in legs GERD (gastroesophageal reflux disease) Hematoma of right lower extremity History of bronchitis Hypernatremia Hypertension Hypothyroidism Left lumbar radiculopathy Leg length discrepancy Livedo reticularis Lumbar spinal stenosis Lymphedema MRSA (methicillin resistant Staphylococcus aureus) On home oxygen therapy 02 2LPM AT HS Osteoarthritis Personal history of MRSA (methicillin resistant Staphylococcus aureus) Pulmonary nodule Sepsis Skin tear Sleep apnea cpap Spinal stenosis Syncope Urethral stricture Vitamin D deficiency Surgical History History of cardiac cath 12/2019 - [place] - increased edema - no stents/angioplasty History of cholecystectomy History of colonoscopy History of herniorrhaphy left inguinal History of partial knee replacement left History of tonsillectomy History of tooth extraction Hx of surgical procedure LEFT FEMUR FX WITH REPAIR Family History Mother Cerebral atherosclerosis Father Diverticulosis Other No significant family history Denies family history of Ovarian cancer Prostate cancer Myocardial infarction Breast cancer Colorectal cancer Social History Smoking Status: Former smoker Tobacco Type: Cigarettes Age Started Using Tobacco: 22; packs per day: 1; Cigarettes Per Day: 20; Second Hand Exposure: No; Do You Dip or Chew Tobacco: No; Hx Alcohol Use: No Hx Substance Use: No Preferred Language: Occitan Communication Ability: Effective Visual Impairment: No Limitations Hearing Ability: Normal Ob/Gyn Physician Required: No Beliefs That Will Affect Care: None marital status: Current Living Situation: Spouse current occupational status: retired Feels Safe at Home: Yes Dental Care, Regularly: No Physical Activity Frequency: 1-2 Times per Week Seatbelt Use: always Sunscreen Use: Yes Assistive Devices: Oxygen - at Night and Walker Physical Exam Physical Exam: Gen.: No acute distress. Alert and oriented. HEENT: Anicteric sclera. Neck: No significant JVD. No significant hepatojugular reflux. No bruits. Normal carotid upstrokes bilaterally. Cardiac: No ventricular heave. Regular with ectopy. Normal S1-S2. No murmurs, rubs, or gallops. Pulmonary: Decreased breath sounds bilaterally with expiratory wheezing and coarse breath sounds. Abdomen: Soft, nontender, nondistended, with normoactive bowel sounds. No bruits noted. Extremities: 2+ radial pulses bilaterally. 2+ posterior tibialis pulses bilaterally. 2 to bilateral lower extremity edema. No cyanosis. Psychiatric: Affect appears appropriate. Results & Data Vital Signs (Past 12 Hours) Vital Signs Temp Pulse Pulse Resp BP BP Pulse Ox 02/19/23 12:00 36.9 C 104 H 22 120/75 93 02/19/23 08:00 02/19/23 07:41 98 H 20 93 02/19/23 07:38 98 H 02/19/23 02:54 36.4 C L 95 H 18 106/65 96 O2 Del Method O2 Flow Rate 02/19/23 12:00 Nasal Cannula 3 02/19/23 08:00 Nasal Cannula 4 02/19/23 07:41 Nasal Cannula 4 02/19/23 07:38 02/19/23 02:54 Nasal Cannula 4 Intake & Output 02/17/23 02/18/23 02/19/23 02/20/23 06:59 06:59 06:59 06:59 Intake Total 110 / 110 Output Total 1050 / 1050 Balance -940 / -940 Weight 198 lb 13.711 oz Laboratory Results Laboratory Results - last 24 hr 02/18/23 02/18/23 02/18/23 16:23 16:23 16:33 WBC 16.40 H RBC 5.22 Hgb 13.3 L Hct 42.1 MCV 80.7 MCH 25.5 MCHC 31.6 L RDW Std Deviation 46.3 RDW Coeff of [place] 15.9 H Plt Count 269 MPV 12.7 H Immature Gran % (Auto) 1.3 Neut % (Auto) 92.2 Lymph % (Auto) 2.6 [place] % (Auto) 3.7 Eos % (Auto) 0.0 Baso % (Auto) 0.2 Neut # (Auto) 15.14 H Lymph # (Auto) 0.42 L [place] # (Auto) 0.60 H Eos # (Auto) 0.00 Baso # (Auto) 0.03 Immature Gran # (Auto) 0.21 H VBG pH VBG pCO2 VBG pO2 VBG HCO3 VBG O2 Saturation VBG Base Excess Sodium 140 Potassium 3.2 L Chloride 93 L Carbon Dioxide 34 H Anion Gap 13 H BUN 50 H Creatinine 1.37 Est Cr Clr Drug Dosing 43.4 Est GFR ( Amer) 53.7 Est GFR (Non-Af Amer) 46.4 BUN/Creatinine Ratio 36.5 H Glucose 136 H Calcium 8.7 Magnesium Total Bilirubin 0.5 AST 56 H ALT 68 H Alkaline Phosphatase 68 Troponin I High Sens 251.2 H* C-Reactive Protein 1.17 H B-Natriuretic Peptide Total Protein 7.4 Albumin 3.3 L Globulin 4.1 H Albumin/Globulin Ratio 0.8 L Lipase 24 Procalcitonin 0.06 SARS-CoV-2, RNA, NAAT 02/18/23 02/18/23 02/18/23 16:45 19:06 22:59 WBC RBC Hgb Hct MCV MCH MCHC RDW Std Deviation RDW Coeff of [place] Plt Count MPV Immature Gran % (Auto) Neut % (Auto) Lymph % (Auto) [place] % (Auto) Eos % (Auto) Baso % (Auto) Neut # (Auto) Lymph # (Auto) [place] # (Auto) Eos # (Auto) Baso # (Auto) Immature Gran # (Auto) VBG pH 7.49 H VBG pCO2 51 H VBG pO2 35 VBG HCO3 39 VBG O2 Saturation < 60.0 VBG Base Excess 13.4 Sodium Potassium Chloride Carbon Dioxide Anion Gap BUN Creatinine Est Cr Clr Drug Dosing Est GFR ( Amer) Est GFR (Non-Af Amer) BUN/Creatinine Ratio Glucose Calcium Magnesium Total Bilirubin AST ALT Alkaline Phosphatase Troponin I High Sens C-Reactive Protein B-Natriuretic Peptide 136 H Total Protein Albumin Globulin Albumin/Globulin Ratio Lipase Procalcitonin SARS-CoV-2, RNA, NAAT POSITIVE A* 02/19/23 02/19/23 08:58 08:58 WBC 10.73 RBC 4.38 L Hgb 11.3 L Hct 35.2 L MCV 80.4 MCH 25.8 MCHC 32.1 RDW Std Deviation 46.6 H RDW Coeff of [place] 16.0 H Plt Count 209 MPV 12.5 H Immature Gran % (Auto) Neut % (Auto) Lymph % (Auto) [place] % (Auto) Eos % (Auto) Baso % (Auto) Neut # (Auto) Lymph # (Auto) [place] # (Auto) Eos # (Auto) Baso # (Auto) Immature Gran # (Auto) VBG pH VBG pCO2 VBG pO2 VBG HCO3 VBG O2 Saturation VBG Base Excess Sodium 142 Potassium 3.1 L Chloride 95 L Carbon Dioxide 37 H Anion Gap 10 BUN 53 H Creatinine 1.36 Est Cr Clr Drug Dosing 44.1 Est GFR ( Amer) 54.2 Est GFR (Non-Af Amer) 46.8 BUN/Creatinine Ratio 39.0 H Glucose 211 H Calcium 8.1 L Magnesium 1.6 L Total Bilirubin AST ALT Alkaline Phosphatase Troponin I High Sens C-Reactive Protein B-Natriuretic Peptide Total Protein Albumin Globulin Albumin/Globulin Ratio Lipase Procalcitonin SARS-CoV-2, RNA, NAAT Diagnostic Findings History and physical report reviewed. Labs reviewed and notable for hypokalemia, improved renal function from recent values, hypomagnesemia, mildly elevated transaminase levels, mild anemia. Telemetry personally reviewed: Sinus rhythm with PACs. ECG personally reviewed 02/18/2023: Multifocal atrial tachycardia. Poor R wave progression. CT chest 02/18/2023: Irregular nodular opacity right upper lobe, which may represent residual infiltrates per radiology. Moderate centrilobular emphysema. No pleural effusion. Echo 01/24/2023: Normal LV size, wall motion, systolic function. EF 55 to 60%. Limited study. Medications Administered Current Inpatient Medications Acetaminophen (Acetaminophen 325 Mg Tab) 650 mg PO Q6H PRN PRN Reason: FEVER/PAIN Stop: 03/20/23 21:07 Dexamethasone (Dexamethasone 4 Mg Tab) 6 mg PO DAILY [facility] Stop: 02/21/23 09:01 Last Admin: 02/19/23 08:21 Dose: 6 mg Diclofenac Sodium (Diclofenac Sod 1% Gel 100 Gm Tube) 2 gm EXT QID [facility]; Protocol Stop: 03/21/23 08:59 Last Admin: 02/19/23 11:57 Dose: 2 gm Diltiazem HCl (Diltiazem Hcl 180 Mg Capcr) 180 mg PO QAM [facility] Stop: 03/21/23 08:59 Last Admin: 02/19/23 08:22 Dose: 180 mg Finasteride (Finasteride 5 Mg Tab) 5 mg PO DAILY [facility] Stop: 03/21/23 08:59 Last Admin: 02/19/23 08:22 Dose: 5 mg Fluticasone Furoate (Fluticasone Furoate 100mcg 14 Puffs/Inhaler) 1 puffs INH DAILY [facility] Stop: 03/21/23 08:59 Last Admin: 02/19/23 08:24 Dose: 1 puffs Guaifenesin/Dextromethorphan (Guaifenesin/Dextrom Syrup 100mg/10mg 5ml Udc) 5 ml PO Q6H PRN PRN Reason: Cough Stop: 03/20/23 22:23 Heparin Sodium (Porcine) (Heparin Sod 5,000 Unit/0.5 Ml Vial) 5,000 units SQ Q8 [facility] Stop: 03/21/23 13:59 Last Admin: 02/19/23 13:04 Dose: 5,000 units Cefepime HCl 2,000 mg/ Syringe 20 mls @ 5 mls/min IV Q12H [facility]; Protocol Stop: 02/25/23 22:59 Last Admin: 02/19/23 11:56 Dose: 5 mls/min Doxycycline Hyclate 100 mg/ (Dextrose) 110 mls @ 50 mls/hr IV Q12H [facility] Stop: 02/25/23 22:59 Last Admin: 02/19/23 11:56 Dose: 50 mls/hr Levalbuterol HCl (Levalbuterol 1.25 Mg/3 Ml Neb) 1.25 mg NEB Q6R [facility]; Protocol Stop: 03/21/23 00:59 Last Admin: 02/19/23 12:37 Dose: 1.25 mg Levothyroxine Sodium (Levothyroxine Sodium 150 Mcg Tablet) 150 mcg PO DAILYBB [facility] Stop: 03/21/23 06:29 Last Admin: 02/19/23 06:49 Dose: 150 mcg Magnesium Oxide (Magnesium Oxide 400 Mg Tab) 400 mg PO MoWeFr@0900 [facility] Stop: 03/22/23 08:59 Miscellaneous (*Ciclopirox*Order Awaiting Action) 1 each N/A QS [facility] Stop: 03/21/23 00:00 Last Admin: 02/19/23 07:05 Dose: Not Given Multivitamins (Multivitamin Tab) 1 tab PO QAM [facility] Stop: 03/21/23 08:59 Last Admin: 02/19/23 08:22 Dose: 1 tab Mupirocin (Mupirocin 2% Oint 22 Gm Tube) 1 appln TOP BID [facility] Stop: 03/21/23 08:59 Last Admin: 02/19/23 08:23 Dose: 1 appln Oxycodone HCl (Oxycodone Hcl Ir 5 Mg Tab (Immediate Release)) 2.5 mg PO Q4H PRN PRN Reason: Pain unrelieved by APAP Stop: 03/04/23 21:07 Pantoprazole Sodium (Pantoprazole 40 Mg Tab) 40 mg PO DAILY [facility]; Protocol Stop: 03/21/23 08:59 Last Admin: 02/19/23 08:22 Dose: 40 mg Polyethylene Glycol (Polyethylene (Miralax) 17 Gm Pack) 17 gm PO DAILY PRN PRN Reason: Constipation Stop: 03/20/23 21:07 Potassium Chloride (Potassium Chloride Crtab 20 Meq Tabcr) 20 meq PO DAILY [facility] Stop: 03/21/23 08:59 Last Admin: 02/19/23 08:20 Dose: 20 meq Sennosides (Senna 8.6 Mg Tab) 8.6 mg PO QAM [facility] Stop: 03/21/23 08:59 Last Admin: 02/19/23 08:21 Dose: 8.6 mg Sodium Chloride (Sodium Chlor 7% 4 Ml Neb) 4 ml INH BIDR [facility] Stop: 03/21/23 06:59 Last Admin: 02/19/23 07:41 Dose: 4 ml Tamsulosin HCl (Tamsulosin Hcl 0.4 Mg Cap) 0.4 mg PO HS [facility] Stop: 03/21/23 20:59 Umeclidinium/Vilanterol (Umeclidinium/Vilanterol 62.5/25mcg 7 Puffs/Inhaler) 1 puffs INH DAILY [facility] Stop: 03/21/23 08:59 Last Admin: 02/19/23 08:24 Dose: 1 puffs Vitamin D (Cholecalciferol 1,000 Units 25 Mcg Tab) 1,000 units PO QAM [facility] Stop: 03/21/23 08:59 Last Admin: 02/19/23 08:22 Dose: 1,000 units PG Care Time/CCT Total # of Minutes Spent Total Time Spent with Patient: Total time spent is greater than 50% in coordination of care (as documented) at patient's floor/unit and/or counseling patient: Coding Level of Care Code 20544 INT INP/OBS CARE 3/75MIN Diagnoses Acute hypoxemic respiratory failure J96.01 Multifocal atrial tachycardia I47.1 Hypertension I10 COVID-19 U07.1 Elevated troponin R77.8 Edema R60.9
[2023-02-19] MEDS: HEPARIN SOD 5,000 UNIT/0.5 ML VIAL SQ SCH ×2 (13:04→20:32)
[2023-02-19] MEDS ORDERED: VANCOMYCIN CONSULT ACTIVE PRN (14:10)
--- NOTE | 2023-02-19 14:14 | Pulmonary Consultation ---
Date of Consultation February 19, 2023 Assessment & Plan (1) Multifocal pneumonia: Patient with a history of Pseudomonas and MRSA in the sputum. Continue cefepime and doxycycline. We will add vancomycin. (2) Acute hypoxemic respiratory failure: Continue to wean O2 to maintain sats of 88 to 92%. (3) Pulmonary nodule: Will need outpatient follow-up with a CT chest in 8 to 10 weeks of the nodular opacity in the right upper lobe which is likely inflammatory or infectious. (4) Bronchiectasis with (acute) exacerbation: Continue antibiotics for 14 days total. Will need 14 days of coverage for MRSA and Pseudomonas. Hypertonic saline twice daily and percussive vest therapy added to regimen. No overt wheezing at this time. We will discontinue dexamethasone. Can restart nebulized tobramycin as an outpatient. Will need follow-up with his primary director corporate sales, . (5) COVID-19: Tested positive for COVID. Continue supportive care. Plan Thank you for allowing me to participate the care of the patient. We will continue to follow along with you. History of Present Illness Reason for Consultation: "COPD/CT findings/bronch? " Attending Physician: Edmundo Pickett MD History of Present Illness 87-year-old male admitted to the hospital yesterday with is chronically on 2 L of oxygen at night. He was seen by his PCP who recommended he go to the ER due to increasing shortness of breath since Thursday. Patient notes increasing cough as well. CT chest completed yesterday revealed multifocal infiltrates and nodular opacity in the right upper lobe. There is also findings consistent with centrilobular emphysema which is quite severe. CT is compared to 01/27/2023 which also revealed bilateral airspace opacities. Patient was found to be COVID-positive 02/11/2023 and during this admission he is also positive for COVID-19. He is currently on dexamethasone, cefepime, doxycycline and inhaler therapy. Spirometry 09/04/2020 revealed moderate obstructive ventilatory defect with an FEV1 of 61%. No significant postbronchodilator response. 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 In December he was seen and was recommended that he start hypertonic saline twice daily and nebulized tobramycin on 28-day cycles due to bronchiectasis and recurrent pneumonia. He denies any shortness of breath at rest. He does have some cough. No fevers or chills currently. Allergies Allergy/AdvReac Type Severity Reaction Status Date / Time clarithromycin Allergy Intermediate RASH Verified 02/18/23 15:22 Home Medications Medication Instructions Recorded Confirmed Type magnesium 250 mg tablet 250 mg PO 3XWK 08/02/18 02/18/23 History cholecalciferol (vitamin D3) 25 1,000 units PO QAM 05/30/19 02/18/23 History mcg (1,000 unit) tablet multivitamin 1 tab PO QAM 09/04/20 02/18/23 History promethazine-DM 6.25 mg-15 mg/5 mL 5 ml PO Q6H PRN cough #473 mL 09/24/21 02/18/23 Rx oral syrup levothyroxine 150 mcg tablet 150 mcg PO QAM #90 tabs 02/03/22 02/18/23 Rx diltiazem HCl 180 mg capsule,24 180 mg PO QAM 90 days #90 caps 04/22/22 02/18/23 Rx hr,extended release (Tiazac) fluticasone fur. 100 mcg-umeclid 1 inh inhalation QAM #3 Inhalers 08/26/22 02/18/23 Rx 62.5 mcg-vilant 25 mcg inhalat.powder (Trelegy Ellipta) albuterol sulfate 90 mcg/actuation 2 puff inhalation Q6H #8.5 grams 10/17/22 02/18/23 Rx aerosol inhaler (Ventolin HFA) ipratropium 0.5 mg-albuterol 3 mg 3 ml NEB Q6H PRN 10/17/22 02/18/23 Rx (2.5 mg base)/3 mL nebulization cough/wheeze/dyspnea #1 box soln diclofenac sodium 1 % topical gel 2 g topical QID 10/23/22 02/18/23 History omeprazole 40 mg capsule,delayed 40 mg PO DAILY 11/05/22 02/18/23 History release mupirocin 2 % topical ointment 1 applic topical BID #22 grams 11/10/22 02/18/23 Rx oxycodone 5 mg tablet 2.5 mg PO Q4H PRN Pain #30 tabs 11/20/22 02/18/23 Rx potassium chloride 20 mEq 20 meq PO DAILY #72 tabs 12/12/22 02/18/23 Rx tablet,extended release(part/cryst) Oxygen Home 12/31/22 02/18/23 History bumetanide 2 mg tablet 2 mg PO BID 12/31/22 02/18/23 History sennosides 8.6 mg tablet (Senokot) 8.6 mg PO QAM 12/31/22 02/18/23 History sodium chloride 3 % for 4 ml inhalation BID #120 mL 01/02/23 02/18/23 Rx nebulization ciclopirox 8 % topical solution 1 applic topical DAILY #6.6 mL 01/15/23 02/18/23 Rx finasteride 5 mg tablet 5 mg PO DAILY #30 tabs 01/21/23 02/18/23 Rx tobramycin 300 mg/5 mL in 0.225 % 300 mg (5 mL) inhalation BID 28 02/02/23 02/18/23 Rx sodium chloride for nebulization days #280 mL (Josue) acetaminophen 325 mg tablet 650 mg PO Q6H PRN FEVER/PAIN 02/11/23 02/18/23 History (Tylenol) polyethylene glycol 3350 17 gram 17 g PO DAILY PRN Constipation 02/11/23 02/18/23 History oral powder packet (Miralax) tamsulosin 0.4 mg capsule 0.4 mg PO HS 02/11/23 02/18/23 History dexamethasone 6 mg tablet 6 mg PO DAILY #7 tabs 02/14/23 02/18/23 Rx Patient History Medical History (Updated 02/19/23 @ 14:10 by Jaswant Allen MD) Acute and chronic respiratory failure Acute on chronic diastolic (congestive) heart failure Acute on chronic kidney failure Avulsion injury of right elbow region Back problem BPH (benign prostatic hyperplasia) Bronchiectasis with (acute) exacerbation Candidal diaper rash Cellulitis of both lower extremities Cellulitis of left leg Cellulitis of left lower extremity CHI (closed head injury) Chronic obstructive pulmonary disease Chronic respiratory failure with hypoxia Closed hip fracture Contusion of elbow Contusion of face COPD (chronic obstructive pulmonary disease) Early satiety Elevated troponin Fluid retention in legs GERD (gastroesophageal reflux disease) Hematoma of right lower extremity History of bronchitis Hypernatremia Hypertension Hypothyroidism Left lumbar radiculopathy Leg length discrepancy Livedo reticularis Lumbar spinal stenosis Lymphedema MRSA (methicillin resistant Staphylococcus aureus) Multifocal pneumonia On home oxygen therapy 02 2LPM AT HS Osteoarthritis Personal history of MRSA (methicillin resistant Staphylococcus aureus) Pulmonary nodule Sepsis Skin tear Sleep apnea cpap Spinal stenosis Syncope Urethral stricture Vitamin D deficiency Surgical History History of cardiac cath 12/2019 - [place] - increased edema - no stents/angioplasty History of cholecystectomy History of colonoscopy History of herniorrhaphy left inguinal History of partial knee replacement left History of tonsillectomy History of tooth extraction Hx of surgical procedure LEFT FEMUR FX WITH REPAIR Family History Mother Cerebral atherosclerosis Father Diverticulosis Other No significant family history Denies family history of Ovarian cancer Prostate cancer Myocardial infarction Breast cancer Colorectal cancer Social History Smoking Status: Former smoker Tobacco Type: Cigarettes Age Started Using Tobacco: 22; packs per day: 1; Cigarettes Per Day: 20; Second Hand Exposure: No; Do You Dip or Chew Tobacco: No; Tobacco Cessation Education Requested by Patient: No Hx Alcohol Use: No Hx Substance Use: No Preferred Language: Norwegian Communication Ability: Effective Visual Impairment: No Limitations Hearing Ability: Normal Care Connector Required: No Beliefs That Will Affect Care: None marital status: Current Living Situation: Spouse current occupational status: retired Other Information That Helps Us Care for You: No Feels Safe at Home: Yes Safety Concerns: Feels Safe At This Time Dental Care, Regularly: No Physical Activity Frequency: 1-2 Times per Week Seatbelt Use: always Sunscreen Use: Yes Assistive Devices: Oxygen - at Night and Walker Review of Systems Review of Systems: All systems reviewed & are unremarkable except as noted in HPI & below Physical Exam Constitutional: WD/WN, vitals as above Neck: trachea midline, no thyromegaly Respiratory: normal respiratory effort, lungs clear to auscultation no respiratory distress and no labored breathing Cardiovascular: Rate/Rhythm: regular rate Heart Sounds: normal S1 and normal S2; no murmur Extremities: + edema Gastrointestinal (Abdomen): normal bowel sounds, soft, nontender, no hepato splenomegaly Musculoskeletal: Extremities: extremities normal to inspection Skin: no rashes, warm and dry Lymphatic: no cervical lymphadenopathy Results & Data Results & Data Vital Signs (Past 12 Hours) Vital Signs Temp Pulse Pulse Resp BP BP Pulse Ox 02/19/23 12:37 118 H 92 02/19/23 12:00 36.9 C 104 H 22 120/75 93 02/19/23 08:00 02/19/23 07:41 98 H 20 93 02/19/23 07:38 98 H 02/19/23 02:54 36.4 C L 95 H 18 106/65 96 O2 Del Method O2 Flow Rate 02/19/23 12:37 Nasal Cannula 4 02/19/23 12:00 Nasal Cannula 3 02/19/23 08:00 Nasal Cannula 4 02/19/23 07:41 Nasal Cannula 4 02/19/23 07:38 02/19/23 02:54 Nasal Cannula 4 PG Care Time/CCT Total # of Minutes Spent Total Time Spent with Patient: Total time spent is greater than 50% in coordination of care (as documented) at patient's floor/unit and/or counseling patient: Coding Level of Care Code 89437 INT INP/OBS CARE 3/75MIN Diagnoses Multifocal pneumonia J18.9 Acute hypoxemic respiratory failure J96.01 Pulmonary nodule R91.1 Bronchiectasis with (acute) exacerbation J47.1 COVID-19 U07.1
[2023-02-19] MEDS ORDERED: VANCOMYCIN HCL 1,750 MG in SODIUM CHLORIDE 0.9% 500 ML IV ONE (14:45)
--- NOTE | 2023-02-19 15:03 | Pharmacy Report ---
Pharmacy Vanc AUC Short Note - Date of Service February 19, 2023 - Assessment & Plan Assessment * 87 year old M receiving VANCOMYCIN + CEFEPIME + DOXYCYCLINE for treatment of multifocal pneumonia. * Pertinent microbiologic data includes: probable pseudomonas growing in sputum cx from this admission, + COVID19 resp swab, prior h/o both MRSA and pseudomonas aeruginosa in sputum, nasal MRSA swab ordered this admission (not yet collected) * Day # 1 of antimicrobial therapy. Plan Vancomycin * AUC/REGINALD is the preferred PK/PD target for vancomycin * AUC guided dosing is effective and associated with decreased risk of nephrotoxicity compared to traditional trough targets * Will give 1750mg load x 1 now, then begin a maint dose of 1250mg IV Q 24 hrs beginning ~0800 tomorrow * This maint dose is predicted to achieve target AUC/REGINALD of 400-600 mg/L.hr and may be associated with a 13 % risk of nephrotoxicity * Will check a vancomycin level 6/9 AM prior to 2nd maint dose Cefepime * 2gm Q 12 hrs dosed appropriately for current renal fxn and indication Pharmacy will continue to follow and will adjust dose/frequency as necessary. Thank you.
[2023-02-19] MEDS: BUMETANIDE 2 MG in SYRINGE 0 ML IV SCH (15:53)
[2023-02-19] MEDS: SODIUM CHLOR 7% 4 ML NEB NEB SCH (19:59)
[2023-02-19] MEDS: TAMSULOSIN HCL 0.4 MG CAP PO SCH (20:30)
[2023-02-19] MEDS: POTASSIUM CHLORIDE CRTAB 20 MEQ TABCR PO SCH (20:31)
[2023-02-19] MEDS ORDERED: VANCOMYCIN HCL 1,250 MG in SODIUM CHLORIDE 0.9% 500 ML IV SCH (21:00)
[2023-02-20] MEDS: [UNRECOGNIZED DRUG - OTHER] SCH ×4 (00:48→23:52)
[2023-02-20] MEDS: LEVALBUTEROL 1.25 MG/3 ML NEB NEB SCH ×4 (01:30→19:32)
[2023-02-20] MEDS: HEPARIN SOD 5,000 UNIT/0.5 ML VIAL SQ SCH ×3 (05:42→20:22)
[2023-02-20] MEDS: LEVOTHYROXINE SODIUM 150 MCG TABLET PO SCH (05:42)
[2023-02-20] MEDS: SODIUM CHLOR 7% 4 ML NEB NEB SCH ×2 (07:25→19:32)
[2023-02-20 07:53] LABS: BUN Creatinine Ratio 36.2 (10-20); Calcium 7.8 mg/dl (8.6-10.3); Creatinine Clr Calc Pharmacy 43.4 ml/min; Est GFR (African American) 53.3 ml/min; Magnesium 1.7 mg/dl (1.7-2.4); Potassium 3.7 mmol/L (3.5-5.1)
--- NOTE | 2023-02-20 09:14 | Hospitalist Progress Note ---
Date of Service February 20, 2023 Assessment & Plan (1) Acute hypoxemic respiratory failure: Plan: Acute hypoxic respiratory failure in a 87 yo male with PMH of COPD and recent COVID 19 Patient is currently requiring supplemental oxygen near his baseline methylprednisolone added by pulmonary med, budesonide and formoterol nebulizers added hypertonic saline and chest vest for mucolytic and expression of mucus Continues on bumex IV BID. Cardiology wishes to keep negative fluid balance renal function has been stable CT chest shows L irregular nodular opacity in the inferior aspect of the right upper lobe which measures 2.3 x 1.8 this may be residual infiltrates from previous CT scan from January [address] on cefepime and doxy. (2) COVID-19: Plan: Patient was discharged with a recent covid 19 diagnosis. Patient started on methylprednisolone per pulmonary medicine (3) Hypertension: Plan: Chronic and stable on diltiazem and Bumex (4) COPD exacerbation: Plan: COPD, concern for multifocal pneumonia, Pulmonary added Vancomycin to cefepime and doxycycline and methylprednisolone for COVID also for COPD nebs ordered. Placed powdered medication inhalers (5) Multifocal atrial tachycardia: Plan: Continue diltiazem, likely albuterol and adrenergic response from his distress feeding into tachycardia, Tachycardia is brought on by physiological stress (6) Hypothyroidism: Plan: resume levothyroxine. Plan CPAP in evening for Obstructive sleep apnea. Admission and Anticipated Discharge Date Admission Date: February 18, 2023 Subjective Patient with some improvement continues with increased tactile fremitus and wheezes. Pulmonary medicine continues antibiotic endorsement for 14 days and added intravenous Solu-Medrol to his regiment today change inhalers to nebulized form from powdered form Physical Exam Physical Exam: Awake and in weekend patient with coughing Lung exam with expiratory wheezes and increased tactile fremitus in all lung brown Results & Data Results & Data Vital Signs (Past 12 Hours) Vital Signs Temp Pulse Pulse Resp BP Pulse Ox O2 Del Method 02/20/23 07:25 103 H 18 97 Nasal Cannula 02/20/23 06:39 98.1 F 91 H 20 105/67 93 Nasal Cannula 02/19/23 22:54 99 H 02/20/23 03:50 97.9 F 92 H 20 105/70 91 Nasal Cannula, Oxymask 02/20/23 01:31 85 16 97 Nasal Cannula 02/19/23 23:59 98.4 F 93 H 20 113/75 94 Nasal Cannula O2 Flow Rate 02/20/23 07:25 3 02/20/23 06:39 3 02/19/23 22:54 02/20/23 03:50 3 02/20/23 01:31 2 02/19/23 23:59 4 Laboratory Results Reviewed chemistry Personally spoke to Dr. Jennifer guerra pulmonary medicine about changes made PG Care Time/CCT Total # of Minutes Spent Total Time Spent with Patient: Total time spent is greater than 50% in coordination of care (as documented) at patient's floor/unit and/or counseling patient: Coding Level of Care Code 57996 SUB INP/OBS CARE 2/35MIN Diagnoses Acute hypoxemic respiratory failure J96.01 COVID-19 U07.1 Hypertension I10 COPD exacerbation J44.1 Multifocal atrial tachycardia I47.1 Hypothyroidism E03.9 Hypothyroidism type: unspecified (6) Hypothyroidism Hypothyroidism type: unspecified Qualified Code(s): E03.9 - Hypothyroidism, unspecified
[2023-02-20] MEDS: PANTOprazole 40 MG TAB PO SCH (10:16)
[2023-02-20] MEDS: MULTIVITAMIN TAB PO SCH (10:16)
[2023-02-20] MEDS: VANCOMYCIN HCL 1,250 MG in SODIUM CHLORIDE 0.9% 250 ML IV SCH (10:16)
[2023-02-20] MEDS: SENNA 8.6 MG TAB PO SCH (10:16)
[2023-02-20] MEDS: POTASSIUM CHLORIDE CRTAB 20 MEQ TABCR PO SCH ×2 (10:16→20:22)
[2023-02-20] MEDS: BUMETANIDE 2 MG in SYRINGE 0 ML IV SCH ×2 (10:16→19:21)
[2023-02-20] MEDS: FINASTERIDE 5 MG TAB PO SCH (10:17)
[2023-02-20] MEDS: FLUTICASONE FUROATE 100MCG 14 PUFFS/INHALER INH SCH (10:17)
[2023-02-20] MEDS: MUPIROCIN 2% OINT 22 GM TUBE TOP SCH ×2 (10:17→20:23)
[2023-02-20] MEDS: dilTIAZem HCL 180 MG CAPCR PO SCH (10:17)
[2023-02-20] MEDS: UMECLIDINIUM/VILANTEROL 62.5/25MCG 7 PUFFS/INHALER INH SCH (10:17)
[2023-02-20] MEDS: MAGNESIUM OXIDE 400 MG TAB PO SCH (10:18)
[2023-02-20] MEDS: DICLOFENAC SOD 1% GEL 100 GM TUBE EXT SCH ×4 (10:18→20:22)
[2023-02-20] MEDS: CHOLECALCIFEROL 1,000 UNITS 25 MCG TAB PO SCH (10:23)
[2023-02-20] MEDS ORDERED: FORMOTEROL 20 MCG/2 ML VIAL ONE (11:29)
--- NOTE | 2023-02-20 11:30 | Pulmonology Progress Note ---
Date of Service February 20, 2023 Assessment & Plan (1) COPD exacerbation: Plan: He is quite bronchospastic today. We will start Solu-Medrol 40 mg twice daily. We will transition from powdered inhalers to nebulized budesonide and formoterol twice daily. Duo nebs every 4 hours as needed added. Communicated with RT and nursing. He needs to get out of bed into a chair. Recommend PT. (2) Multifocal pneumonia: Plan: Patient with a history of Pseudomonas and MRSA in the sputum. Continue cefepime and doxycycline. Continue vancomycin. (3) Acute hypoxemic respiratory failure: Plan: Continue to wean O2 to maintain sats of 88 to 92%. (4) Pulmonary nodule: Plan: Will need outpatient follow-up with a CT chest in 8 to 10 weeks of the nodular opacity in the right upper lobe which is likely inflammatory or infectious. (5) Bronchiectasis with (acute) exacerbation: Plan: Continue antibiotics for 14 days total. Will need 14 days of coverage for MRSA and Pseudomonas. Hypertonic saline twice daily and percussive vest therapy added to regimen. Can restart nebulized tobramycin as an outpatient. Will need follow-up with his primary patient partner, . (6) COVID-19: Plan: Tested positive for COVID. Continue supportive care. (7) Wheezing: Plan: Restart IV corticosteroids. Plan Thank you for allowing me to participate the care of the patient. We will continue to follow along with you. Admission and Anticipated Discharge Date Admission Date: February 18, 2023 Subjective Patient with no significant improvement compared to yesterday. Today he has significant cough and wheezing. Denies any fevers or chills. He has not been out of bed. Review of Systems Review of Systems: All systems reviewed & are unremarkable except as noted in HPI & below Physical Exam Constitutional: WD/WN, vitals as above Neck: trachea midline, no thyromegaly Respiratory: normal respiratory effort, lungs clear to auscultation + labored breathing; no respiratory distress Diffuse expiratory wheeze with rales bilaterally. Cardiovascular: Rate/Rhythm: regular rate Heart Sounds: normal S1 and normal S2; no murmur Extremities: + edema Gastrointestinal (Abdomen): normal bowel sounds, soft, nontender, no hepatosplenomegaly Musculoskeletal: Extremities: extremities normal to inspection Skin: no rashes, warm and dry Lymphatic: no cervical lymphadenopathy Results & Data Results & Data Vital Signs (Past 12 Hours) Vital Signs Temp Pulse Resp BP Pulse Ox O2 Del Method O2 Flow Rate 02/20/23 07:25 103 H 18 97 Nasal Cannula 3 02/20/23 06:39 36.7 C 91 H 20 105/67 93 Nasal Cannula 3 02/20/23 03:50 36.6 C 92 H 20 105/70 91 Nasal Cannula, Oxymask 3 02/20/23 01:31 85 16 97 Nasal Cannula 2 02/19/23 23:59 36.9 C 93 H 20 113/75 94 Nasal Cannula 4 PG Care Time/CCT Total # of Minutes Spent Total Time Spent with Patient: Total time spent is greater than 50% in coordination of care (as documented) at patient's floor/unit and/or counseling patient: Coding Level of Care Code 47717 SUB INP/OBS CARE 3/50MIN Diagnoses COPD exacerbation J44.1 Multifocal pneumonia J18.9 Acute hypoxemic respiratory failure J96.01 Pulmonary nodule R91.1 Bronchiectasis with (acute) exacerbation J47.1 COVID-19 U07.1 Wheezing R06.2
[2023-02-20] MEDS: FORMOTEROL 20 MCG/2 ML VIAL NEB SCH ×2 (11:37→19:32)
[2023-02-20] MEDS: BUDESONIDE 0.5 MG/2 ML VIAL (PULMICORT) NEB SCH ×2 (11:40→19:32)
[2023-02-20] MEDS: DOXYCYCLINE HYCLATE 100 MG in DEXTROSE 5% 100 ML IV SCH ×2 (12:27→23:52)
[2023-02-20] MEDS: CEFEPIME 2,000 MG in SYRINGE 0 ML IV SCH ×2 (12:27→23:49)
[2023-02-20] MEDS: methylPREDNISolone 40 MG in SYRINGE 0 ML IV SCH ×2 (12:28→20:22)
[2023-02-20] MEDS: TAMSULOSIN HCL 0.4 MG CAP PO SCH (20:23)
[2023-02-21] MEDS: LEVALBUTEROL 1.25 MG/3 ML NEB NEB SCH ×4 (00:24→19:16)
[2023-02-21] MEDS: oxyCODONE HCL IR 5 MG TAB (IMMEDIATE RELEASE) PO PRN ×2 (01:42→10:01)
--- NOTE | 2023-02-21 06:08 | Electrocardiogram Report ---
Test Reason : Blood Pressure : / mmHG Vent. Rate : 120 BPM Atrial Rate : 000 BPM P-R Int : 000 ms QRS Dur : 076 ms QT Int : 360 ms P-R-T Axes : 000 -36 052 degrees QTc Int : 508 ms Multifocal atrial tachycardia Left axis deviation Minimal voltage criteria for LVH, may be normal variant Possible Anterior infarct , age undetermined Abnormal ECG When compared with ECG of 11-FEB-2023 19:56, Criteria for Inferior infarct are no longer Present Confirmed by Kwasi Carter ([id number]) on 02/21/2023 6:08:31 AM Referred By: REFERRED SELF Confirmed By:Kwasi Carter
[2023-02-21] MEDS: LEVOTHYROXINE SODIUM 150 MCG TABLET PO SCH (06:24)
[2023-02-21] MEDS: HEPARIN SOD 5,000 UNIT/0.5 ML VIAL SQ SCH ×3 (06:24→19:40)
[2023-02-21 07:06] LABS: BUN Creatinine Ratio 38.7 (10-20); Calcium 8.1 mg/dl (8.6-10.3); Creatinine Clr Calc Pharmacy 48.3 ml/min; Est GFR (African American) 60.6 ml/min; Est GFR (Non-African American) 52.3 ml/min; Magnesium 1.7 mg/dl (1.7-2.4); Potassium 4.7 mmol/L (3.5-5.1)
[2023-02-21] MEDS: FORMOTEROL 20 MCG/2 ML VIAL NEB SCH ×2 (07:57→19:16)
[2023-02-21] MEDS: BUDESONIDE 0.5 MG/2 ML VIAL (PULMICORT) NEB SCH ×2 (07:58→19:15)
[2023-02-21] MEDS: [UNRECOGNIZED DRUG - OTHER] SCH ×3 (08:02→23:11)
[2023-02-21] MEDS: SODIUM CHLOR 7% 4 ML NEB NEB SCH ×2 (08:08→19:16)
[2023-02-21] MEDS: SENNA 8.6 MG TAB PO SCH (09:11)
[2023-02-21] MEDS: PANTOprazole 40 MG TAB PO SCH (09:11)
[2023-02-21] MEDS: dilTIAZem HCL 180 MG CAPCR PO SCH (09:11)
[2023-02-21] MEDS: BUMETANIDE 1 MG TAB PO SCH (09:11)
[2023-02-21] MEDS: FINASTERIDE 5 MG TAB PO SCH (09:11)
[2023-02-21] MEDS: MUPIROCIN 2% OINT 22 GM TUBE TOP SCH ×2 (09:11→19:39)
[2023-02-21] MEDS: CHOLECALCIFEROL 1,000 UNITS 25 MCG TAB PO SCH (09:11)
[2023-02-21] MEDS: DICLOFENAC SOD 1% GEL 100 GM TUBE EXT SCH ×4 (09:11→19:39)
[2023-02-21] MEDS: POTASSIUM CHLORIDE CRTAB 20 MEQ TABCR PO SCH ×2 (09:11→19:40)
[2023-02-21] MEDS: MULTIVITAMIN TAB PO SCH (09:11)
[2023-02-21] MEDS: methylPREDNISolone 40 MG in SYRINGE 0 ML IV SCH ×2 (09:12→19:41)
[2023-02-21] MEDS ORDERED: VANCOMYCIN LEVEL ONE (09:30)
[2023-02-21] MEDS: VANCOMYCIN HCL 1,250 MG in SODIUM CHLORIDE 0.9% 250 ML IV SCH (10:05)
--- NOTE | 2023-02-21 10:06 | Pharmacy Report ---
Pharmacy PK ABX Note - Date of Service February 21, 2023 - Assessment and Plan Assessment 87 year old M receiving VANCOMYCIN + CEFEPIME + DOXYCYCLINE for treatment of multifocal pneumonia. * Pertinent microbiologic data includes: Pseudomonas aeruginosa growing in sputum cx from this admission, + COVID19 resp swab, prior h/o both MRSA and pseudomonas aeruginosa in sputum, nasal MRSA swab negative but continuing coverage x 14 days d/t worsening pulmonary status. * Random level this AM predicts current dosing will achieve target AUC/REGINALD. * Day # 3 of antimicrobial therapy. Plan Vancomycin * Maintenance dose: 1250 mg IV every 24 hours * Regimen is predicted to achieve target AUC/REGINALD of 400-600 mg/L.hr * Random level ordered for 02/23 @ 4784 Pharmacy will continue to follow and will adjust dose/frequency as necessary. Thank you. Pharmacy has transitioned to AUC monitoring for vancomycin. AUC/REGINALD is the preferred PK/PD target and is associated with decreased risk of nephrotoxicity compared to traditional trough targets.
[2023-02-21] MEDS: DOXYCYCLINE HYCLATE 100 MG in DEXTROSE 5% 100 ML IV SCH ×2 (11:22→23:10)
[2023-02-21] MEDS: CEFEPIME 2,000 MG in SYRINGE 0 ML IV SCH ×2 (11:22→23:10)
--- NOTE | 2023-02-21 13:36 | Pulmonology Progress Note ---
Date of Service February 21, 2023 Assessment & Plan (1) COPD exacerbation: Plan: Continue IV solumedrol, 40 mg BID. Continue nebulized budesonide and formoterol twice daily. Duo nebs every 4 hours as needed added. He needs to get out of bed into a chair. Recommend PT. (2) Multifocal pneumonia: Plan: Patient with a history of Pseudomonas and MRSA in the sputum. Continue cefepime and doxycycline. Continue vancomycin. (3) Acute hypoxemic respiratory failure: Plan: Continue to wean O2 to maintain sats of 88 to 92%. (4) Pulmonary nodule: Plan: Will need outpatient follow-up with a CT chest in 8 to 10 weeks of the nodular opacity in the right upper lobe which is likely inflammatory or infectious. (5) Bronchiectasis with (acute) exacerbation: Plan: Continue antibiotics for 14 days total. Will need 14 days of coverage for MRSA and Pseudomonas. Hypertonic saline twice daily and percussive vest therapy added to regimen. Can restart nebulized tobramycin as an outpatient. 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 (6) COVID-19: Plan: Tested positive for COVID. Continue supportive care. (7) Wheezing: Plan: Continue IV steroids and nebs. Plan Thank you for allowing me to participate the care of the patient. We will continue to follow along with you. Admission and Anticipated Discharge Date Admission Date: February 18, 2023 Subjective No significant change compared to yesterday. Still requiring 4l via nc. No chest pain. Dyspneic with minimal activity. Review of Systems Review of Systems: All systems reviewed & are unremarkable except as noted in HPI & below Physical Exam Constitutional: WD/WN, vitals as above Neck: trachea midline, no thyromegaly Respiratory: normal respiratory effort, lungs clear to auscultation + labored breathing and + audible wheezes; no respiratory distress Cardiovascular: Rate/Rhythm: regular rate Heart Sounds: normal S1 and normal S2; no murmur Extremities: + edema Gastrointestinal (Abdomen): normal bowel sounds, soft, nontender, no hepatosplenomegaly Musculoskeletal: Extremities: extremities normal to inspection Skin: no rashes, warm and dry Lymphatic: no cervical lymphadenopathy Results & Data Results & Data Vital Signs (Past 12 Hours) Vital Signs Temp Pulse Resp BP BP Pulse Ox O2 Del Method 02/21/23 12:54 105 H 20 90 Nasal Cannula 02/21/23 10:37 Nasal Cannula 02/21/23 07:58 96 H 20 90 Nasal Cannula 02/21/23 07:47 36.5 C 86 18 128/96 90 Nasal Cannula 02/21/23 03:14 36.7 C 83 20 122/72 90 Nasal Cannula O2 Flow Rate 02/21/23 12:54 4 02/21/23 10:37 4 02/21/23 07:58 4 02/21/23 07:47 4 02/21/23 03:14 4 PG Care Time/CCT Total # of Minutes Spent Total Time Spent with Patient: Total time spent is greater than 50% in coordination of care (as documented) at patient's floor/unit and/or counseling patient: Coding Level of Care Code 44821 SUB INP/OBS CARE 235MIN Diagnoses COPD exacerbation J44.1 Multifocal pneumonia J18.9 Acute hypoxemic respiratory failure J96.01 Pulmonary nodule R91.1 Bronchiectasis with (acute) exacerbation J47.1 COVID-19 U07.1 Wheezing R06.2
--- NOTE | 2023-02-21 14:29 | Hospitalist Progress Note ---
Date of Service February 21, 2023 Assessment & Plan (1) Acute hypoxemic respiratory failure: Plan: Acute hypoxic respiratory failure in a 87 yo male with PMH of COPD and recent COVID 19, treating for MRSA pneumonia and also gram-negative pneumonia Pulmonary medicine considers possible COPD exacerbation and methylprednisolone , budesonide and formoterol nebulizers added hypertonic saline and chest vest for mucolytic and expression of mucus He also feels acute exacerbation of his diastolic heart failure and recommended negative fluid balance. Initially treated with twice daily Bumex now reduced to p.o. once a day follow I's and O's and fluid balance c CT chest shows L irregular nodular opacity in the inferior aspect of the right upper lobe which measures 2.3 x 1.8 this may be residual infiltrates from previous CT scan from January 27 Vancomycin, cefepime and doxy. (2) COVID-19: Plan: Patient was discharged with a recent covid 19 diagnosis. Patient started on methylprednisolone per pulmonary medicine (3) Hypertension: Plan: Chronic and stable on diltiazem and Bumex, Bumex changed to p.o. on 02/21 (4) COPD exacerbation: Plan: COPD, concern for multifocal pneumonia, Pulmonary added Vancomycin to cefepime and doxycycline and methylprednisolone for COVID also for COPD nebs ordered. Replace powdered medications (5) Multifocal atrial tachycardia: Plan: Continue diltiazem, likely albuterol and adrenergic response from his distress feeding into tachycardia, Tachycardia is brought on by physiological stress (6) Hypothyroidism: Plan: resume levothyroxine. Plan CPAP in evening for Obstructive sleep apnea. Admission and Anticipated Discharge Date Admission Date: February 18, 2023 Subjective present the bedside many questions feels he was discharged to early last admission. Patient himself does not feel substantially improved, is on 4 L of oxygen and still having cough productive of sputum is very weak. PT OT ordered Physical Exam Physical Exam: Patient is rhonchi at the bases of his lungs has wheezes in the apex, productive cough Results & Data Results & Data Vital Signs (Past 12 Hours) Vital Signs Temp Pulse Resp BP BP Pulse Ox O2 Del Method 02/21/23 12:54 105 H 20 90 Nasal Cannula 02/21/23 10:37 Nasal Cannula 02/21/23 07:58 96 H 20 90 Nasal Cannula 02/21/23 07:47 97.7 F 86 18 128/96 90 Nasal Cannula 02/21/23 03:14 98.1 F 83 20 122/72 90 Nasal Cannula O2 Flow Rate 02/21/23 12:54 4 02/21/23 10:37 4 02/21/23 07:58 4 02/21/23 07:47 4 02/21/23 03:14 4 Laboratory Results Reviewed chemistry Reviewed vancomycin level PG Care Time/CCT Total # of Minutes Spent Total Time Spent with Patient: Total time spent is greater than 50% in coordination of care (as documented) at patient's floor/unit and/or counseling patient: Coding Level of Care Code 40356 SUB INP/OBS CARE 2/35MIN Diagnoses Acute hypoxemic respiratory failure J96.01 COVID-19 U07.1 Hypertension I10 COPD exacerbation J44.1 Multifocal atrial tachycardia I47.1 Hypothyroidism E03.9 Hypothyroidism type: unspecified (6) Hypothyroidism Hypothyroidism type: unspecified Qualified Code(s): E03.9 - Hypothyroidism, unspecified
[2023-02-21] MEDS: TAMSULOSIN HCL 0.4 MG CAP PO SCH (19:40)
[2023-02-22] MEDS: LEVALBUTEROL 1.25 MG/3 ML NEB NEB SCH ×4 (00:01→19:53)
[2023-02-22] MEDS: oxyCODONE HCL IR 5 MG TAB (IMMEDIATE RELEASE) PO PRN ×2 (01:41→12:16)
[2023-02-22] MEDS: LEVOTHYROXINE SODIUM 150 MCG TABLET PO SCH (04:31)
[2023-02-22] MEDS: HEPARIN SOD 5,000 UNIT/0.5 ML VIAL SQ SCH ×3 (04:31→20:32)
[2023-02-22] MEDS: BUDESONIDE 0.5 MG/2 ML VIAL (PULMICORT) NEB SCH ×2 (07:21→19:21)
[2023-02-22] MEDS: FORMOTEROL 20 MCG/2 ML VIAL NEB SCH ×2 (07:21→19:21)
[2023-02-22] MEDS: SODIUM CHLOR 7% 4 ML NEB NEB SCH ×2 (07:38→19:21)
[2023-02-22] MEDS: [UNRECOGNIZED DRUG - OTHER] SCH ×2 (07:50→12:57)
[2023-02-22 08:24] LABS: BUN Creatinine Ratio 39.7 (10-20); Calcium 8.1 mg/dl (8.6-10.3); Creatinine Clr Calc Pharmacy 49.5 ml/min; Est GFR (African American) 62.5 ml/min; Est GFR (Non-African American) 53.9 ml/min; Magnesium 1.7 mg/dl (1.7-2.4); Potassium 5.4 mmol/L (3.5-5.1)
[2023-02-22] MEDS: SENNA 8.6 MG TAB PO SCH (09:03)
[2023-02-22] MEDS: methylPREDNISolone 40 MG in SYRINGE 0 ML IV SCH (09:03)
[2023-02-22] MEDS: CHOLECALCIFEROL 1,000 UNITS 25 MCG TAB PO SCH (09:03)
[2023-02-22] MEDS: PANTOprazole 40 MG TAB PO SCH (09:03)
[2023-02-22] MEDS: dilTIAZem HCL 180 MG CAPCR PO SCH (09:03)
[2023-02-22] MEDS: POTASSIUM CHLORIDE CRTAB 20 MEQ TABCR PO SCH (09:03)
[2023-02-22] MEDS: MULTIVITAMIN TAB PO SCH (09:03)
[2023-02-22] MEDS: BUMETANIDE 1 MG TAB PO SCH (09:03)
[2023-02-22] MEDS: DICLOFENAC SOD 1% GEL 100 GM TUBE EXT SCH ×4 (09:03→20:35)
[2023-02-22] MEDS: FINASTERIDE 5 MG TAB PO SCH (09:03)
[2023-02-22] MEDS: VANCOMYCIN HCL 1,250 MG in SODIUM CHLORIDE 0.9% 250 ML IV SCH (09:04)
[2023-02-22] MEDS: MUPIROCIN 2% OINT 22 GM TUBE TOP SCH ×2 (09:04→20:36)
[2023-02-22] MEDS: DOXYCYCLINE HYCLATE 100 MG in DEXTROSE 5% 100 ML IV SCH ×2 (10:43→23:12)
[2023-02-22] MEDS: CEFEPIME 2,000 MG in SYRINGE 0 ML IV SCH ×2 (10:43→23:12)
--- NOTE | 2023-02-22 14:00 | Pulmonology Progress Note ---
Date of Service February 22, 2023 Assessment & Plan (1) COPD exacerbation: Plan: Transition IV Solu-Medrol to prednisone 40 mg daily. Continue nebulized budesonide and formoterol twice daily. Duo nebs every 4 hours as needed added. Continue PT and OT. Doubtful that the patient will be able to go home given his profound weakness. (2) Multifocal pneumonia: Plan: Patient with a history of Pseudomonas and MRSA in the sputum. Continue cefepime and doxycycline. Continue vancomycin. (3) Acute hypoxemic respiratory failure: Plan: Continue to wean O2 to maintain sats of 88 to 92%. (4) Pulmonary nodule: Plan: Will need outpatient follow-up with a CT chest in 8 to 10 weeks of the nodular opacity in the right upper lobe which is likely inflammatory or infectious. (5) Bronchiectasis with (acute) exacerbation: Plan: Continue antibiotics for 14 days total. Will need 14 days of coverage for MRSA and Pseudomonas. Hypertonic saline twice daily and flutter valve. Intolerant of percussive vest. Can restart nebulized tobramycin as an outpatient. Will need follow-up with his primary junior java developer, Dr. Burt. (6) COVID-19: Plan: Tested positive for COVID. Continue supportive care. (7) Wheezing: Plan: Continue corticosteroids and nebs. Plan Thank you for allowing me to participate the care of the patient. We will continue to follow along with you. Admission and Anticipated Discharge Date Admission Date: February 18, 2023 Subjective He is sitting up in a chair today. Oxygen saturations 95 to 97% on 4 to 5 L of oxygen. He does note some improvement in his wheezes. He notes that he is very weak and this is very concerning to him. He is working with PT. No fevers or chills. Occasional cough. No hemoptysis. Review of Systems Review of Systems: All systems reviewed & are unremarkable except as noted in HPI & below Physical Exam Constitutional: WD/WN, vitals as above Neck: trachea midline, no thyromegaly Respiratory: normal respiratory effort, lungs clear to auscultation + audible wheezes; no labored breathing Cardiovascular: Rate/Rhythm: regular rate Heart Sounds: normal S1 and normal S2; no murmur Extremities: + edema Gastrointestinal (Abdomen): normal bowel sounds, soft, nontender, no hepatosplenomegaly Musculoskeletal: Extremities: extremities normal to inspection Skin: no rashes, warm and dry Lymphatic: no cervical lymphadenopathy Results & Data Results & Data Vital Signs (Past 12 Hours) Vital Signs Temp Pulse Resp BP Pulse Ox Pulse Ox Pulse Ox 02/22/23 13:23 88 L 94 02/22/23 13:03 95 H 20 93 02/22/23 12:01 141/86 H 02/22/23 11:42 36.8 C 84 21 90 02/22/23 08:01 36.8 C 85 22 96 02/22/23 07:21 80 20 90 02/22/23 03:41 36.4 C L 80 16 118/76 92 Pulse Ox Pulse Ox O2 Del Method O2 Flow Rate O2 Flow Rate O2 Flow Rate O2 Flow Rate 02/22/23 13:23 91 84 L 5 5 5 02/22/23 13:03 Nasal Cannula 5 02/22/23 12:01 02/22/23 11:42 Nasal Cannula 5 02/22/23 08:01 Other 02/22/23 07:21 Nasal Cannula 5 02/22/23 03:41 Nasal Cannula 4 O2 Flow Rate 02/22/23 13:23 5 02/22/23 13:03 02/22/23 12:01 02/22/23 11:42 02/22/23 08:01 02/22/23 07:21 02/22/23 03:41 PG Care Time/CCT Total # of Minutes Spent Total Time Spent with Patient: Total time spent is greater than 50% in coordination of care (as documented) at patient's floor/unit and/or counseling patient: Coding Level of Care Code 94777 SUB INP/OBS CARE 2/35MIN Diagnoses COPD exacerbation J44.1 Multifocal pneumonia J18.9 Acute hypoxemic respiratory failure J96.01 Pulmonary nodule R91.1 Bronchiectasis with (acute) exacerbation J47.1 COVID-19 U07.1 Wheezing R06.2
--- NOTE | 2023-02-22 15:55 | Hospitalist Progress Note ---
Date of Service February 22, 2023 Assessment & Plan (1) Acute hypoxemic respiratory failure: Plan: Acute hypoxic respiratory failure in a 87 yo male with PMH of COPD and recent COVID 19, treating for MRSA pneumonia and also gram-negative pneumonia Pulmonary medicine considers possible COPD exacerbation and methylprednisolone , budesonide and formoterol nebulizers added hypertonic saline and chest vest for mucolytic and expression of mucus, pt has progressed to near baseline with regard to respiratory status but functionally is very weak He also feels acute exacerbation of his diastolic heart failure and recommended negative fluid balance. Initially treated with twice daily Bumex now reduced to p.o. once a day follow I's and O's and fluid balance potassium over augmented will cut supplements due to hyperkalemia CT chest shows L irregular nodular opacity in the inferior aspect of the right upper lobe which measures 2.3 x 1.8 this may be residual infiltrates from previous CT scan from January 27 Vancomycin, cefepime and doxy.-> compelte 7 days of antibitoics (2) COVID-19: Plan: Patient was discharged with a recent covid 19 diagnosis. day 11 is 02/22 pt with chronic pulmonary sx now at baseline Patient started on methylprednisolone per pulmonary medicine-> taper to prednsione 02/23/23 (3) Hypertension: Plan: Chronic and stable on diltiazem and Bumex, Bumex changed to p.o. on 02/21 (4) COPD exacerbation: Plan: COPD, concern for multifocal pneumonia, Pulmonary added Vancomycin to cefepime and doxycycline and methylprednisolone for COVID also for COPD nebs ordered. Replace powdered medications (5) Multifocal atrial tachycardia: Plan: Continue diltiazem, likely albuterol and adrenergic response from his distress feeding into tachycardia, Tachycardia is brought on by physiological stress (6) Hypothyroidism: Plan: resume levothyroxine. Plan CPAP in evening for Obstructive sleep apnea. Admission and Anticipated Discharge Date Admission Date: February 18, 2023 Subjective pt states he feels similar to baseline with regard to his pulmonary status but is very weak and does not think he can be supported at home with this level of weakness Physical Exam Physical Exam: Patient is rhonchi at the bases of his lungs has wheezes in the apex, continues with productive cough Results & Data Results & Data Vital Signs (Past 12 Hours) Vital Signs Temp Pulse Resp BP Pulse Ox Pulse Ox Pulse Ox 02/22/23 15:36 98.1 F 92 H 13 119/82 95 02/22/23 15:13 02/22/23 13:23 88 L 94 02/22/23 13:03 95 H 20 93 02/22/23 12:01 141/86 H 02/22/23 11:42 98.2 F 84 21 90 02/22/23 08:01 98.2 F 85 22 96 02/22/23 07:21 80 20 90 Pulse Ox Pulse Ox O2 Del Method O2 Flow Rate O2 Flow Rate O2 Flow Rate O2 Flow Rate 02/22/23 15:36 Nasal Cannula 5 02/22/23 15:13 Nasal Cannula 3 02/22/23 13:23 91 84 L 5 5 5 02/22/23 13:03 Nasal Cannula 5 02/22/23 12:01 02/22/23 11:42 Nasal Cannula 5 02/22/23 08:01 Other 02/22/23 07:21 Nasal Cannula 5 O2 Flow Rate 02/22/23 15:36 02/22/23 15:13 02/22/23 13:23 5 02/22/23 13:03 02/22/23 12:01 02/22/23 11:42 02/22/23 08:01 02/22/23 07:21 Laboratory Results reviewed chemistry PG Care Time/CCT Total # of Minutes Spent Total Time Spent with Patient: Total time spent is greater than 50% in coordination of care (as documented) at patient's floor/unit and/or counseling patient: Coding Level of Care Code 23013 SUB INP/OBS CARE 2/35MIN Diagnoses Acute hypoxemic respiratory failure J96.01 COVID-19 U07.1 Hypertension I10 COPD exacerbation J44.1 Multifocal atrial tachycardia I47.1 Hypothyroidism E03.9 Hypothyroidism type: unspecified (6) Hypothyroidism Hypothyroidism type: unspecified Qualified Code(s): E03.9 - Hypothyroidism, unspecified
[2023-02-22] MEDS: TAMSULOSIN HCL 0.4 MG CAP PO SCH (20:33)
[2023-02-23] MEDS: LEVALBUTEROL 1.25 MG/3 ML NEB NEB SCH ×4 (01:14→19:21)
[2023-02-23] MEDS: [UNRECOGNIZED DRUG - OTHER] SCH ×4 (01:57→23:56)
[2023-02-23] MEDS: LEVOTHYROXINE SODIUM 150 MCG TABLET PO SCH (06:28)
[2023-02-23] MEDS: HEPARIN SOD 5,000 UNIT/0.5 ML VIAL SQ SCH ×3 (06:28→21:35)
[2023-02-23 06:36] LABS: BUN Creatinine Ratio 35.6 (10-20); Calcium 8.3 mg/dl (8.6-10.3); Creatinine Clr Calc Pharmacy 44.4 ml/min; Est GFR (African American) 54.7 ml/min; Est GFR (Non-African American) 47.2 ml/min; Potassium 4.9 mmol/L (3.5-5.1)
[2023-02-23] MEDS: BUDESONIDE 0.5 MG/2 ML VIAL (PULMICORT) NEB SCH ×2 (07:16→19:21)
[2023-02-23] MEDS: FORMOTEROL 20 MCG/2 ML VIAL NEB SCH ×2 (07:16→19:21)
[2023-02-23] MEDS: SODIUM CHLOR 7% 4 ML NEB NEB SCH ×2 (07:16→19:21)
--- NOTE | 2023-02-23 07:42 | Hospitalist Progress Note ---
Date of Service February 23, 2023 Assessment & Plan (1) Acute hypoxemic respiratory failure: Plan: Acute hypoxic respiratory failure in a 87 yo male with PMH of COPD and recent COVID 19, treating for MRSA pneumonia and also gram-negative pneumonia Pulmonary medicine considers possible COPD exacerbation and methylprednisolone , budesonide and formoterol nebulizers added hypertonic saline and chest vest for mucolytic and expression of mucus, pt has progressed to near baseline with regard to respiratory status but functionally is very weak He also feels acute exacerbation of his diastolic heart failure and recommended negative fluid balance. Initially treated with twice daily Bumex now reduced to p.o. once a day follow I's and O's and fluid balance potassium over augmented will cut supplements due to hyperkalemia CT chest shows L irregular nodular opacity in the inferior aspect of the right upper lobe which measures 2.3 x 1.8 this may be residual infiltrates from previous CT scan from January 27 Vancomycin, cefepime and doxy.-> compelte 7 days of antibitoics (2) COVID-19: Plan: Patient was discharged with a recent covid 19 diagnosis. day 11 is 02/22 pt with chronic pulmonary sx now at baseline Patient started on methylprednisolone per pulmonary medicine-> taper to prednsione 02/23/23 (3) Hypertension: Plan: Chronic and stable on diltiazem and Bumex, Bumex changed to p.o. on 02/21 (4) COPD exacerbation: Plan: COPD, concern for multifocal pneumonia, Pulmonary added Vancomycin to cefepime and doxycycline and methylprednisolone for COVID also for COPD nebs ordered. Replace powdered medications (5) Multifocal atrial tachycardia: Plan: Continue diltiazem, likely albuterol and adrenergic response from his distress feeding into tachycardia, Tachycardia is brought on by physiological stress (6) Hypothyroidism: Plan: resume levothyroxine. Plan CPAP in evening for Obstructive sleep apnea. Admission and Anticipated Discharge Date Admission Date: February 18, 2023 Subjective Feels at his baseline except for weakness and tiredness but his respiratory status seems to be typical. He does typically have a daily cough he is not expectorating sputum he is down to his typical oxygen level Speaking with infection control the patient should come off isolation precautions therefore will downgraded from telemetry to regular medical floor bed Physical Exam Physical Exam: Patient is rhonchi at the bases of his lungs has wheezes in the apex, continues with productive cough Results & Data Results & Data Vital Signs (Past 12 Hours) Vital Signs Temp Pulse Pulse Resp BP Pulse Ox O2 Del Method 02/23/23 07:18 85 18 91 Nasal Cannula 02/23/23 03:17 97.9 F 81 18 119/69 87 L Nasal Cannula 02/23/23 01:16 82 18 91 Nasal Cannula 02/22/23 23:27 86 02/22/23 23:21 98.1 F 81 20 135/83 90 Nasal Cannula 02/22/23 22:33 Nasal Cannula O2 Flow Rate 02/23/23 07:18 4 02/23/23 03:17 4 02/23/23 01:16 4 02/22/23 23:27 02/22/23 23:21 4 02/22/23 22:33 3 Laboratory Results Reviewed chemistry reviewed vancomycin level PG Care Time/CCT Total # of Minutes Spent Total Time Spent with Patient: Total time spent is greater than 50% in coordination of care (as documented) at patient's floor/unit and/or counseling patient: Coding Level of Care Code 13414 SUB INP/OBS CARE 2/35MIN Diagnoses Acute hypoxemic respiratory failure J96.01 COVID-19 U07.1 Hypertension I10 COPD exacerbation J44.1 Multifocal atrial tachycardia I47.1 Hypothyroidism E03.9 Hypothyroidism type: unspecified (6) Hypothyroidism Hypothyroidism type: unspecified Qualified Code(s): E03.9 - Hypothyroidism, unspecified
--- NOTE | 2023-02-23 08:12 | Pulmonology Progress Note ---
Date of Service February 23, 2023 Assessment & Plan (1) Bronchiectasis with (acute) exacerbation: (2) COPD exacerbation: (3) Pseudomonas aeruginosa infection: (4) Hypoxia: Plan Impression: 87-year-old male with mild sleep disordered breathing and moderate obstructive lung disease (overlap syndrome) admitted with progressive hypoxemic respiratory failure. He is status post recent admission for COVID. Patient does have Pseudomonas and bronchiectasis and is likely suffering from an exacerbation of his bronchiectasis. He continues to demonstrate fluid overload. Recommendations: 1. Bronchiectasis exacerbation: Sputum culture positive for pansensitive Pseudomonas. Currently day #5 cefepime and day #5 doxycycline. Doxycycline can be discontinued. Vancomycin can also be discontinued. The MRSA was isolated over a month ago and has not grown on repeat culture. Doxycycline can be discontinued at this point in time. Would complete 10 to 14 days IV antimicrobial therapy. The patient can then resume his nebulized tobramycin 28 days on 28 days off in the outpatient setting. 2. COPD: Continue budesonide and hypertonic saline. Commence weaning of prednisone. Continue Perforomist and as needed DuoNebs. 3. Hypoxemia: Continue oxygen at night. 4. Sleep disordered breathing: Continue CPAP. We will see if he can bring in his home machine 5. Pulmonary nodule: Outpatient follow-up will be arranged at discharge. Follow-up CT scan in 3 to 4 months is reasonable. 6. Management the patient's other medical issues including his heart failure is per his primary service. He does have fluid overload which may be contributing to his respiratory issues. We will continue to follow with you in the hospital. Feel free to contact us with questions or concerns Admission and Anticipated Discharge Date Admission Date: February 18, 2023 Subjective Patient seen and examined. EMR reviewed. Discussed with off going rn lvn. The patient states that he is feeling about at his baseline. He states he was able to get out of the chair and move around a little bit yesterday. He is at his baseline oxygen requirement. He is not coughing or expectorating phlegm. He is not had any hemoptysis. He continues to demonstrate lower extremity edema. He has compression hose in place. Review of Systems Review of Systems: All systems reviewed & are unremarkable except as noted in Subjective Physical Exam Constitutional: WD/WN, vitals as above Neck: trachea midline, no thyromegaly Respiratory: normal respiratory effort, lungs clear to auscultation no respiratory distress and no labored breathing Auscultation: + wheezes Cardiovascular: Rate/Rhythm: regular rate Heart Sounds: normal S1 and normal S2; no murmur Extremities: + edema Gastrointestinal (Abdomen): normal bowel sounds, soft, nontender, no hepatosplenomegaly Musculoskeletal: Extremities: extremities normal to inspection Skin: no rashes, warm and dry Lymphatic: no cervical lymphadenopathy Results & Data Results & Data Vital Signs (Past 12 Hours) Vital Signs Temp Pulse Pulse Resp BP Pulse Ox O2 Del Method 02/23/23 07:49 36.4 C L 107 H 18 132/77 95 Other 02/23/23 07:18 85 18 91 Nasal Cannula 02/23/23 03:17 36.6 C 81 18 119/69 87 L Nasal Cannula 02/23/23 01:16 82 18 91 Nasal Cannula 02/22/23 23:27 86 02/22/23 23:21 36.7 C 81 20 135/83 90 Nasal Cannula 02/22/23 22:33 Nasal Cannula O2 Flow Rate 02/23/23 07:49 02/23/23 07:18 4 02/23/23 03:17 4 02/23/23 01:16 4 02/22/23 23:27 02/22/23 23:21 4 02/22/23 22:33 3 Critical Care Results & Data Vital Signs (Past 12 Hours) Vital Signs Temp Pulse Pulse Resp BP Pulse Ox O2 Del Method 02/23/23 07:49 36.4 C L 107 H 18 132/77 95 Other 02/23/23 07:18 85 18 91 Nasal Cannula 02/23/23 03:17 36.6 C 81 18 119/69 87 L Nasal Cannula 02/23/23 01:16 82 18 91 Nasal Cannula 02/22/23 23:27 86 02/22/23 23:21 36.7 C 81 20 135/83 90 Nasal Cannula 02/22/23 22:33 Nasal Cannula O2 Flow Rate 02/23/23 07:49 02/23/23 07:18 4 02/23/23 03:17 4 02/23/23 01:16 4 02/22/23 23:27 02/22/23 23:21 4 02/22/23 22:33 3 Lab & Micro Results (Past 24 Hours) No Data to Display Na 135 mmol/L (136-145) L 02/23/23 K 4.9 mmol/L (3.5-5.1) 02/23/23 Cl 98 mmol/L (98-107) 02/23/23 CO2 31 mmol/L (21-32) 02/23/23 Anion Gap 6 (3-11) 02/23/23 BUN 48 mg/dl (6-23) H 02/23/23 Creatinine 1.35 mg/dl (0.6-1.4) 02/23/23 Estimated GFR ( Amer) 54.7 ml/min 02/23/23 Estimated GFR (Non-Af Amer) 47.2 ml/min 02/23/23 BUN/Creatinine Ratio 35.6 (10-20) H 02/23/23 Glu 118 mg/dl (70-99(Fasting)) H 02/23/23 Ca 8.3 mg/dl (8.6-10.3) L 02/23/23 Calcium Level 8.3 mg/dl (8.6-10.3) L 02/23/23 05:38 I & O Totals 24 Hours 02/22/23 02/23/23 02/24/23 06:59 06:59 06:59 Intake Total 495 / 495 695 / 695 Output Total 650 / 650 2350 / 2350 Balance -155 / -155 -1655 / -1655 Cumulative 02/18/23 16:05 thru 02/23/23 03:22 Intake Total 2550 Output Total 7200 Balance -4650 RT Ventilator Mngmt (Last Documented) Ventilator Ordered Settings Respiratory Rate 18 02/23/23 07:49 Ventilator - PT Measurements Respiratory Rate 18 PG Care Time/CCT Total # of Minutes Spent Total Time Spent with Patient: Total time spent is greater than 50% in coordination of care (as documented) at patient's floor/unit and/or counseling patient: Coding Level of Care Code 80706 SUB INP/OBS CARE 2/35MIN Diagnoses Bronchiectasis with (acute) exacerbation J47.1 COPD exacerbation J44.1 Pseudomonas aeruginosa infection A49.8 Hypoxia R09.02
[2023-02-23] MEDS ORDERED: predniSONE 20 MG TAB PO SCH (09:00)
[2023-02-23] MEDS: predniSONE 20 MG TAB PO SCH (09:13)
[2023-02-23] MEDS: dilTIAZem HCL 180 MG CAPCR PO SCH (09:13)
[2023-02-23] MEDS: MULTIVITAMIN TAB PO SCH (09:14)
[2023-02-23] MEDS: DICLOFENAC SOD 1% GEL 100 GM TUBE EXT SCH ×4 (09:14→21:37)
[2023-02-23] MEDS: BUMETANIDE 1 MG TAB PO SCH (09:14)
[2023-02-23] MEDS: CHOLECALCIFEROL 1,000 UNITS 25 MCG TAB PO SCH (09:15)
[2023-02-23] MEDS: SENNA 8.6 MG TAB PO SCH (09:15)
[2023-02-23] MEDS: PANTOprazole 40 MG TAB PO SCH (09:15)
[2023-02-23] MEDS: MUPIROCIN 2% OINT 22 GM TUBE TOP SCH ×2 (09:16→21:38)
[2023-02-23] MEDS: FINASTERIDE 5 MG TAB PO SCH (09:16)
[2023-02-23] MEDS: CEFEPIME 2,000 MG in SYRINGE 0 ML IV SCH (11:18)
[2023-02-23] MEDS: MAGNESIUM OXIDE 400 MG TAB PO SCH (11:18)
[2023-02-23] MEDS: oxyCODONE HCL IR 5 MG TAB (IMMEDIATE RELEASE) PO PRN (11:32)
[2023-02-23] MEDS: TAMSULOSIN HCL 0.4 MG CAP PO SCH (21:35)
[2023-02-23] MEDS: Cefepime 2,000 MG Extended Infusion IV SCH (22:07)
[2023-02-24] MEDS: LEVALBUTEROL 1.25 MG/3 ML NEB NEB SCH ×4 (01:33→19:20)
[2023-02-24] MEDS: HEPARIN SOD 5,000 UNIT/0.5 ML VIAL SQ SCH ×3 (05:40→22:03)
[2023-02-24] MEDS: LEVOTHYROXINE SODIUM 150 MCG TABLET PO SCH (05:40)
[2023-02-24] MEDS: FORMOTEROL 20 MCG/2 ML VIAL NEB SCH ×2 (07:06→19:19)
[2023-02-24] MEDS: BUDESONIDE 0.5 MG/2 ML VIAL (PULMICORT) NEB SCH ×2 (07:06→19:19)
[2023-02-24] MEDS: SODIUM CHLOR 7% 4 ML NEB NEB SCH ×2 (07:06→19:19)
[2023-02-24] MEDS: CHOLECALCIFEROL 1,000 UNITS 25 MCG TAB PO SCH (07:54)
[2023-02-24] MEDS: BUMETANIDE 1 MG TAB PO SCH (07:54)
[2023-02-24] MEDS: predniSONE 20 MG TAB PO SCH (07:55)
[2023-02-24] MEDS: FINASTERIDE 5 MG TAB PO SCH (07:55)
[2023-02-24] MEDS: MULTIVITAMIN TAB PO SCH (07:55)
[2023-02-24] MEDS: dilTIAZem HCL 180 MG CAPCR PO SCH (07:56)
[2023-02-24] MEDS: SENNA 8.6 MG TAB PO SCH (07:56)
[2023-02-24] MEDS: PANTOprazole 40 MG TAB PO SCH (07:56)
[2023-02-24] MEDS: MUPIROCIN 2% OINT 22 GM TUBE TOP SCH ×2 (07:57→20:07)
[2023-02-24] MEDS: DICLOFENAC SOD 1% GEL 100 GM TUBE EXT SCH ×4 (07:58→20:07)
--- NOTE | 2023-02-24 08:22 | XRay Report ---
XR chest 1V portable CLINICAL HISTORY: eval pneumonia COMPARISON STUDY: Chest radiograph and chest CT February 18, 2023. FINDINGS: There is no pneumothorax or pleural effusion. Cardiomegaly is unchanged. Emphysema is prese nt. Interstitial thickening and patchy bilateral opacities are again noted. Left lower lung opacities have increased. IMPRESSION: 1. Interstitial thickening and patchy bilateral airspace opacities. Left lower lung opacity has sligh tly increased. The findings favor pneumonia. Pulmonary edema could appear similar. 2. Emphysema. ACT 112: Negative or not required by law. Electronically signed by: Conner Villalpando M.D. 02/24/2023 8:20 AM
--- NOTE | 2023-02-24 09:52 | Pulmonology Progress Note ---
Date of Service February 24, 2023 Assessment & Plan (1) Bronchiectasis with (acute) exacerbation: (2) COPD exacerbation: (3) Pseudomonas aeruginosa infection: (4) Hypoxia: Plan Impression: 87-year-old male with mild sleep disordered breathing and moderate obstructive lung disease (overlap syndrome) admitted with progressive hypoxemic respiratory failure. He is status post recent admission for COVID. Patient does have Pseudomonas and bronchiectasis and is likely suffering from an exacerbation of his bronchiectasis. He continues to demonstrate fluid overload. Recommendations: 1. Bronchiectasis exacerbation: Sputum culture positive for pansensitive Pseudomonas. Recommend completing 14 days extended dosing cefuroxime under the direction of pharmacy. The patient can then resume his nebulized tobramycin 28 days on 28 days off in the outpatient setting. 2. COPD: Continue budesonide and hypertonic saline. Continue steroids for an additional 3 days then discontinue. Continue Perforomist and as needed DuoNebs. 3. Hypoxemia: Continue oxygen at night. 4. Sleep disordered breathing: Continue CPAP. No one can bring in his home machine so we will continue our machine at night. 5. Pulmonary nodule: Outpatient follow-up will be arranged at discharge. Follow-up CT scan in 3 to 4 months is reasonable. 6. Management the patient's other medical issues including his heart failure is per his primary service. He does have fluid overload which may be contributing to his respiratory issues. Pulmonary status appears to be at or close to baseline. He does require aggressive rehab. We will continue to follow with Admission and Anticipated Discharge Date Admission Date: February 18, 2023 Subjective Patient seen and examined. EMR reviewed. The patient feels that his breathing is back to his baseline. He continues to work on pulmonary toilet. He is coughing up some phlegm. He remains profoundly weak. He is working on rehab. Review of Systems Review of Systems: All systems reviewed & are unremarkable except as noted in Subjective Physical Exam Constitutional: WD/WN, vitals as above Neck: trachea midline, no thyromegaly Respiratory: normal respiratory effort, lungs clear to auscultation no respiratory distress and no labored breathing Auscultation: + wheezes Cardiovascular: Rate/Rhythm: regular rate Heart Sounds: normal S1 and normal S2; no murmur Extremities: + edema Gastrointestinal (Abdomen): normal bowel sounds, soft, nontender, no hepa tosplenomegaly Musculoskeletal: Extremities: extremities normal to inspection Skin: no rashes, warm and dry Lymphatic: no cervical lymphadenopathy Results & Data Results & Data Vital Signs (Past 12 Hours) Vital Signs Temp Pulse Resp BP Pulse Ox O2 Del Method O2 Flow Rate 02/24/23 08:59 36.4 C L 78 18 127/67 99 Room Air 02/24/23 07:09 72 22 86 L Nasal Cannula 5 02/24/23 01:34 51 L 14 88 L Oxymask 5 02/24/23 01:15 89 20 127/66 89 L Nasal Cannula 5 Laboratory Results 02/19/23 08:58 02/23/23 05:38 Diagnostic Findings No new imaging PG Care Time/CCT Total # of Minutes Spent Total Time Spent with Patient: Total time spent is greater than 50% in coordination of care (as documented) at patient's floor/unit and/or counseling patient: Coding Level of Care Code 56545 SUB INP/OBS CARE 2/35MIN Diagnoses Bronchiectasis with (acute) exacerbation J47.1 COPD exacerbation J44.1 Pseudomonas aeruginosa infection A49.8 Hypoxia R09.02
[2023-02-24] MEDS: [UNRECOGNIZED DRUG - OTHER] SCH ×2 (10:23→17:29)
[2023-02-24] MEDS: Cefepime 2,000 MG Extended Infusion IV SCH ×2 (12:18→22:04)
--- NOTE | 2023-02-24 13:32 | Hospitalist Progress Note ---
Date of Service February 24, 2023 Assessment & Plan (1) Acute hypoxemic respiratory failure: Plan: Acute hypoxic respiratory failure in a 87 yo male with PMH of COPD and recent COVID 19, treating for MRSA pneumonia and also gram-negative pneumonia Pulmonary medicine feels exacerbation of bronchiectasis with previous history of Pseudomonas, Recommend completing 14 days extended dosing cefuroxime under the direction of pharmacy. The patient can then resume his nebulized tobramycin 28 days on 28 days off in the outpatient setting. Tapering steroids over the next few days and continuing performance and as needed DuoNebs His respiratory status was also impacted by acute exacerbation of his diastolic heart failure and cardiology recommended negative fluid balance. Initially treated with twice daily Bumex now reduced to p.o. once a day CT chest shows L irregular nodular opacity in the inferior aspect of the right upper lobe which measures 2.3 x 1.8 this may be residual infiltrates from previous CT scan from January 27 (2) COVID-19: Plan: Patient was discharged with a recent covid 19 diagnosis. day 11 is 02/22 pt with chronic pulmonary sx now at baseline Patient started on methylprednisolone per pulmonary medicine-> taper to prednsione 02/23/23 (3) Hypertension: Plan: Chronic and stable on diltiazem and Bumex, Bumex changed to p.o. on 02/21 (4) COPD exacerbation: Plan: COPD, concern for multifocal pneumonia, Pulmonary de-escalated to cefepime monotherapy plus tapering steroids nebs ordered. Replace powdered medications (5) Multifocal atrial tachycardia: Plan: Continue diltiazem, likely albuterol and adrenergic response from his distress feeding into tachycardia, Tachycardia is brought on by physiological stress (6) Hypothyroidism: Plan: resume levothyroxine. Plan CPAP in evening for Obstructive sleep apnea. Patient in need of rehab placement due to weakness Admission and Anticipated Discharge Date Admission Date: February 18, 2023 Subjective Patient states he feels near his baseline. He has had waxing and waning hypoxia likely due to some mucus production when I saw him he was comfortable Physical Exam Physical Exam: Coarse rhonchi with coughing prolonged expiratory phase no wheezes Results & Data Results & Data Vital Signs (Past 12 Hours) Vital Signs Temp Pulse Resp BP Pulse Ox O2 Del Method O2 Flow Rate 02/24/23 13:09 86 20 93 Nasal Cannula 6 02/24/23 12:17 6 02/24/23 08:00 Nasal Cannula 3 02/24/23 08:59 97.5 F L 78 18 127/67 99 Nasal Cannula 6 02/24/23 07:09 72 22 86 L Nasal Cannula 5 02/24/23 01:34 51 L 14 88 L Oxymask 5 PG Care Time/CCT Total # of Minutes Spent Total Time Spent with Patient: Total time spent is greater than 50% in coordination of care (as documented) at patient's floor/unit and/or counseling patient: Coding Level of Care Code 59133 SUB INP/OBS CARE 2/35MIN Diagnoses Acute hypoxemic respiratory failure J96.01 COVID-19 U07.1 Hypertension I10 COPD exacerbation J44.1 Multifocal atrial tachycardia I47.1 Hypothyroidism E03.9 Hypothyroidism type: unspecified (6) Hypothyroidism Hypothyroidism type: unspecified Qualified Code(s): E03.9 - Hypothyroidism, unspecified
[2023-02-24] MEDS ORDERED: BUMETANIDE 2 MG in SYRINGE 0 ML IV ONE (13:45)
[2023-02-24] MEDS: TAMSULOSIN HCL 0.4 MG CAP PO SCH (20:06)
[2023-02-25] MEDS: LEVALBUTEROL 1.25 MG/3 ML NEB NEB SCH ×5 (00:04→23:53)
[2023-02-25] MEDS: [UNRECOGNIZED DRUG - OTHER] SCH ×4 (01:05→22:23)
[2023-02-25] MEDS ORDERED: CHLORASEPTIC 1.4% SOLN 180 ML BTL MT PRN (04:20)
[2023-02-25] MEDS: HEPARIN SOD 5,000 UNIT/0.5 ML VIAL SQ SCH ×3 (06:04→20:06)
[2023-02-25] MEDS: LEVOTHYROXINE SODIUM 150 MCG TABLET PO SCH (06:04)
[2023-02-25] MEDS: CLOTRIMAZOLE 10 MG TROCHE BUCCAL SCH ×5 (06:06→22:21)
[2023-02-25] MEDS: SODIUM CHLOR 7% 4 ML NEB NEB SCH ×2 (07:21→19:27)
[2023-02-25] MEDS: FORMOTEROL 20 MCG/2 ML VIAL NEB SCH ×2 (07:21→19:27)
[2023-02-25] MEDS: BUDESONIDE 0.5 MG/2 ML VIAL (PULMICORT) NEB SCH ×2 (07:21→19:27)
--- NOTE | 2023-02-25 07:42 | Pulmonology Progress Note ---
Date of Service February 25, 2023 Assessment & Plan (1) Bronchiectasis with (acute) exacerbation: (2) COPD exacerbation: (3) Pseudomonas aeruginosa infection: (4) Hypoxia: Plan Impression: 87-year-old male with mild sleep disordered breathing and moderate obstructive lung disease (overlap syndrome) admitted with progressive hypoxemic respiratory failure. He is status post recent admission for COVID. Patient does have Pseudomonas and bronchiectasis and is likely suffering from an exacerbation of his bronchiectasis. He continues to demonstrate fluid overload. Recommendations: 1. Bronchiectasis exacerbation: Sputum culture positive for pansensitive Pseudomonas. Recommend completing 14 days extended dosing cefepime under the direction of pharmacy. The patient can then resume his nebulized tobramycin 28 days on 28 days off in the outpatient setting. 2. COPD: Continue budesonide and hypertonic saline. Continue steroids for an additional 2 days then discontinue. Continue Perforomist and as needed DuoNebs. 3. Hypoxemia: Continue oxygen at night. 4. Sleep disordered breathing: Continue CPAP. No one can bring in his home machine so we will continue our machine at night. 5. Pulmonary nodule: Outpatient follow-up will be arranged at discharge. Follow-up CT scan in 3 to 4 months is reasonable. 6. Management the patient's other medical issues including his heart failure is per his primary service. He does have fluid overload which may be contributing to his respiratory issues. This point time the patient appears to be at or close to back to his pulmonary baseline. Disposition per primary service. The patient will need rehab to improve his functional status prior to going home Admission and Anticipated Discharge Date Admission Date: February 18, 2023 Subjective Patient seen and examined. EMR reviewed. The patient states that his breathing is normal. His sputum is decreased. Has not had any hemoptysis. No fevers chills or night sweats. He remains profoundly deconditioned. Review of Systems Review of Systems: All systems reviewed & are unremarkable except as noted in Subjective Physical Exam Constitutional: WD/WN, vitals as above Neck: trachea midline, no thyromegaly Respiratory: normal respiratory effort, lungs clear to auscultation no respiratory distress and no labored breathing Auscultation: + wheezes Cardiovascular: Rate/Rhythm: regular rate Heart Sounds: normal S1 and normal S2; no murmur Extremities: + edema Gastrointestinal (Abdomen): normal bowel sounds, soft, nontender, no hepatosplenomegaly Musculoskeletal: Extremities: extremities normal to inspection Skin: no rashes, warm and dry Lymphatic: no cervical lymphadenopathy Results & Data Results & Data Vital Signs (Past 12 Hours) Vital Signs Temp Pulse Resp BP Pulse Ox O2 Del Method O2 Flow Rate 02/25/23 07:21 65 22 94 Nasal Cannula 7 02/25/23 07:05 36.4 C L 97 H 18 132/80 93 Nasal Cannula 7 02/25/23 00:04 53 L 25 H 88 L Nasal Cannula 5 02/24/23 22:22 86 20 93 Nasal Cannula 5 02/24/23 21:23 36.9 C 111 H 22 115/85 90 Nasal Cannula 5 02/24/23 20:16 Nasal Cannula 5 Laboratory Results 02/19/23 08:58 02/23/23 05:38 Diagnostic Findings No new imaging PG Care Time/CCT Total # of Minutes Spent Total Time Spent with Patient: Total time spent is greater than 50% in coordination of care (as documented) at patient's floor/unit and/or counseling patient: Coding Level of Care Code 06202 SUB INP/OBS CARE 2/35MIN Diagnoses Bronchiectasis with (acute) exacerbation J47.1 COPD exacerbation J44.1 Pseudomonas aeruginosa infection A49.8 Hypoxia R09.02
[2023-02-25] MEDS: MAGNESIUM OXIDE 400 MG TAB PO SCH (08:33)
[2023-02-25] MEDS: FINASTERIDE 5 MG TAB PO SCH (08:33)
[2023-02-25] MEDS: CHOLECALCIFEROL 1,000 UNITS 25 MCG TAB PO SCH (08:33)
[2023-02-25] MEDS: BUMETANIDE 1 MG TAB PO SCH (08:33)
[2023-02-25] MEDS: dilTIAZem HCL 180 MG CAPCR PO SCH (08:33)
[2023-02-25] MEDS: predniSONE 20 MG TAB PO SCH (08:33)
[2023-02-25] MEDS: PANTOprazole 40 MG TAB PO SCH (08:33)
[2023-02-25] MEDS: MULTIVITAMIN TAB PO SCH (08:33)
[2023-02-25] MEDS: MUPIROCIN 2% OINT 22 GM TUBE TOP SCH ×2 (08:34→20:07)
[2023-02-25] MEDS: SENNA 8.6 MG TAB PO SCH (08:34)
[2023-02-25] MEDS: DICLOFENAC SOD 1% GEL 100 GM TUBE EXT SCH ×4 (08:34→20:07)
[2023-02-25 08:35] LABS: BUN Creatinine Ratio 32.3 (10-20); Calcium 8.2 mg/dl (8.6-10.3); Creatinine Clr Calc Pharmacy 42.1 ml/min; Est GFR (African American) 57.3 ml/min; Est GFR (Non-African American) 49.4 ml/min; Potassium 3.6 mmol/L (3.5-5.1)
[2023-02-25] MEDS: Cefepime 2,000 MG Extended Infusion IV SCH ×2 (10:45→22:21)
--- NOTE | 2023-02-25 11:06 | Hospitalist Progress Note ---
Date of Service February 25, 2023 Assessment & Plan (1) Acute hypoxemic respiratory failure: Plan: Acute hypoxic respiratory failure in a 87 yo male with PMH of COPD and recent COVID 19, treating for MRSA pneumonia and also gram-negative pneumonia Pulmonary medicine feels exacerbation of bronchiectasis with previous history of Pseudomonas, Recommend completing 14 days extended dosing cefuroxime under the direction of pharmacy. The patient can then resume his nebulized tobramycin 28 days on 28 days off in the outpatient setting. Tapering steroids over the next few days and continuing performance and as needed DuoNebs His respiratory status was also impacted by acute exacerbation of his diastolic heart failure and cardiology recommended negative fluid balance. Initially treated with twice daily Bumex now reduced to p.o. once a day CT chest shows L irregular nodular opacity in the inferior aspect of the right upper lobe which measures 2.3 x 1.8 this may be residual infiltrates from previous CT scan from January 27 Patient appears to be tolerating diuresis and his antibiotic treatment. currently on 5 liters nasal cannula an improvement from 7 liters (2) COVID-19: Plan: Patient was discharged with a recent covid 19 diagnosis. day 11 is 02/22 pt with chronic pulmonary sx now at baseline Patient started on methylprednisolone per pulmonary medicine-> taper to prednsione 02/23/23 (3) Hypertension: Plan: Chronic and stable on diltiazem and Bumex, Bumex changed to p.o. on 02/21 (4) COPD exacerbation: Plan: COPD, concern for multifocal pneumonia, Pulmonary de-escalated to cefepime monotherapy plus tapering steroids nebs ordered. Replace powdered medications (5) Multifocal atrial tachycardia: Plan: Continue diltiazem, likely albuterol and adrenergic response from his distress feeding into tachycardia, Tachycardia is brought on by physiological stress (6) Hypothyroidism: Plan: resume levothyroxine. Plan CPAP in evening for Obstructive sleep apnea. Patient in need of rehab placement due to weakness Admission and Anticipated Discharge Date Admission Date: February 18, 2023 Subjective Patient reports feeling better than when he first came in. Patient states feeling weak. But he has been in the chair 2 out of the past 3 days. He is willing to try. He does report to be breathing better Review of Systems Review of Systems: All systems reviewed & are unremarkable except as noted in HPI & below Physical Exam Physical Exam: Patient lying in bed slightly uprght. Patient in no acute distress, able to speak in full sentences, Coarse rhonchi with coughing prolonged expiratory phase no wheezes Results & Data Results & Data Vital Signs (Past 12 Hours) Vital Signs Temp Pulse Resp BP Pulse Ox O2 Del Method O2 Flow Rate 02/25/23 09:00 Nasal Cannula 5 02/25/23 07:21 65 22 94 Nasal Cannula 7 02/25/23 07:05 36.4 C L 97 H 18 132/80 93 Nasal Cannula 7 02/25/23 00:04 53 L 25 H 88 L Nasal Cannula 5 PG Care Time/CCT Total # of Minutes Spent Total Time Spent with Patient: Total time spent is greater than 50% in coordination of care (as documented) at patient's floor/unit and/or counseling patient: Coding Level of Care Code 87326 SUB INP/OBS CARE 2/35MIN Diagnoses Acute hypoxemic respiratory failure J96.01 COVID-19 U07.1 Hypertension I10 COPD exacerbation J44.1 Multifocal atrial tachycardia I47.1 Hypothyroidism E03.9 Hypothyroidism type: unspecified (6) Hypothyroidism Hypothyroidism type: unspecified Qualified Code(s): E03.9 - Hypothyroidism, unspecified
[2023-02-25] MEDS: TAMSULOSIN HCL 0.4 MG CAP PO SCH (21:04)
[2023-02-26] MEDS: CLOTRIMAZOLE 10 MG TROCHE BUCCAL SCH ×5 (05:19→22:12)
[2023-02-26] MEDS: LEVOTHYROXINE SODIUM 150 MCG TABLET PO SCH (05:19)
[2023-02-26] MEDS: HEPARIN SOD 5,000 UNIT/0.5 ML VIAL SQ SCH ×3 (05:22→22:13)
[2023-02-26] MEDS: SODIUM CHLOR 7% 4 ML NEB NEB SCH ×2 (06:53→19:14)
[2023-02-26] MEDS: LEVALBUTEROL 1.25 MG/3 ML NEB NEB SCH ×4 (06:53→23:54)
[2023-02-26] MEDS: FORMOTEROL 20 MCG/2 ML VIAL NEB SCH ×2 (06:53→19:13)
[2023-02-26] MEDS: BUDESONIDE 0.5 MG/2 ML VIAL (PULMICORT) NEB SCH ×2 (06:53→19:14)
[2023-02-26] MEDS: [UNRECOGNIZED DRUG - OTHER] SCH ×2 (07:05→14:45)
--- NOTE | 2023-02-26 08:32 | Pulmonology Progress Note ---
Date of Service February 26, 2023 Assessment & Plan (1) Bronchiectasis with (acute) exacerbation: (2) COPD exacerbation: (3) Pseudomonas aeruginosa infection: (4) Hypoxia: Plan Impression: 87-year-old male with mild sleep disordered breathing and moderate obstructive lung disease (overlap syndrome) admitted with progressive hypoxemic respiratory failure. He is status post recent admission for COVID. Patient does have Pseudomonas and bronchiectasis and is likely suffering from an exacerbation of his bronchiectasis. He continues to demonstrate fluid overload. Recommendations: 1. Bronchiectasis exacerbation: Sputum culture positive for pansensitive Pseudomonas. Recommend completing 14 days extended dosing cefepime under the direction of pharmacy. The patient can then resume his nebulized tobramycin 28 days on 28 days off in the outpatient setting. 2. COPD: Continue budesonide and hypertonic saline. Continue steroids for an additional 2 days then discontinue. Continue Perforomist and as needed DuoNebs. 3. Hypoxemia: Continue oxygen at night. Continue incentive spirometry and flutter valve. Oxygenation would improve if the patient was out of bed to chair and upright. 4. Sleep disordered breathing: Continue CPAP. No one can bring in his home machine so we will continue our machine at night. 5. Pulmonary nodule: Outpatient follow-up will be arranged at discharge. Follow-up CT scan in 3 to 4 months is reasonable. 6. Continue diuretics as tolerated Patient will need rehab. Discussion of goals of care would not be unreasonable in this patient Admission and Anticipated Discharge Date Admission Date: February 18, 2023 Subjective Patient seen and examined. EMR reviewed. The patient is sleeping and his oxygen saturations are in the mid to high 80% range. Upon awakening, his saturations rapidly improved to 90% on 7 L. He states his breathing is doing okay. He is not really coughing up any phlegm. He denies chest pain or palpitations. No significant lower extremity edema. He remains profoundly deconditioned. Review of Systems Review of Systems: All systems reviewed & are unremarkable except as noted in Subjective Physical Exam Constitutional: WD/WN, vitals as above Neck: trachea midline, no thyromegaly Respiratory: no respiratory distress and no labored breathing Auscultation: + wheezes Cardiovascular: Rate/Rhythm: regular rate Heart Sounds: normal S1 and normal S2; no murmur Extremities: + edema Gastrointestinal (Abdomen): normal bowel sounds, soft, nontender, no hepatosplenomegaly Musculoskeletal: Extremities: extremities normal to inspection Skin: no rashes, warm and dry Lymphatic: no cervical lymphadenopathy Results & Data Results & Data Vital Signs (Past 12 Hours) Vital Signs Temp Pulse Resp BP Pulse Ox O2 Del Method O2 Flow Rate 02/26/23 07:21 36.7 C 105 H 14 130/80 95 Nasal Cannula 02/26/23 06:54 88 18 91 Nasal Cannula 7 02/26/23 06:00 97 H 20 126/80 94 Nasal Cannula 7 02/26/23 05:24 36.3 C L 96 H 20 107/67 90 Nasal Cannula 7 02/26/23 04:00 94 Nasal Cannula 6 02/26/23 03:45 87 20 95 Nasal Cannula 7 02/26/23 01:50 20 95 Nasal Cannula 7 02/25/23 23:53 104 H 20 93 Nasal Cannula 7 02/25/23 22:25 95 H 20 93 High Flow Nasal Cannula 7 02/25/23 21:44 36.9 C 109 H 24 128/75 92 Nasal Cannula 7 Laboratory Results 02/19/23 08:58 02/25/23 07:47 PG Care Time/CCT Total # of Minutes Spent Total Time Spent with Patient: Total time spent is greater than 50% in coordination of care (as documented) at patient's floor/unit and/or counseling patient: Coding Level of Care Code 27529 SUB INP/OBS CARE 2/35MIN Diagnoses Bronchiectasis with (acute) exacerbation J47.1 COPD exacerbation J44.1 Pseudomonas aeruginosa infection A49.8 Hypoxia R09.02
[2023-02-26] MEDS: dilTIAZem HCL 180 MG CAPCR PO SCH (08:39)
[2023-02-26] MEDS: MULTIVITAMIN TAB PO SCH (08:40)
[2023-02-26] MEDS: MUPIROCIN 2% OINT 22 GM TUBE TOP SCH ×2 (08:40→20:08)
[2023-02-26] MEDS: PANTOprazole 40 MG TAB PO SCH (08:40)
[2023-02-26] MEDS: BUMETANIDE 1 MG TAB PO SCH (08:40)
[2023-02-26] MEDS: FINASTERIDE 5 MG TAB PO SCH (08:40)
[2023-02-26] MEDS: predniSONE 20 MG TAB PO SCH (08:40)
[2023-02-26] MEDS: CHOLECALCIFEROL 1,000 UNITS 25 MCG TAB PO SCH (08:40)
[2023-02-26] MEDS: DICLOFENAC SOD 1% GEL 100 GM TUBE EXT SCH ×4 (08:40→20:08)
[2023-02-26] MEDS: SENNA 8.6 MG TAB PO SCH (08:40)
[2023-02-26 09:14] LABS: BUN Creatinine Ratio 32.9 (10-20); C Reactive Protein 5.95 mg/dl (0-0.5); Calcium 8.4 mg/dl (8.6-10.3); Creatinine Clr Calc Pharmacy 39.1 ml/min; Est GFR (African American) 52.4 ml/min; Est GFR (Non-African American) 45.2 ml/min; Potassium 3.2 mmol/L (3.5-5.1)
[2023-02-26 09:23] LABS: Hematocrit (blood only) 38.5 % (42.0-52.0); Hemoglobin 12.3 g/dl (14.0-18.0); Mean Corpuscular Hemoglobin 25.6 pg (25.0-34.0); Mean Corpuscular Hgb Conc 31.9 g/dL (32.0-36.0); Platelet Count 179 K/uL (130-400); RDW Coefficient of Variation 16.1 % (11.5-14.5); RDW Standard Deviation 45.7 fL (36.4-46.3); Red Blood Count 4.81 M/uL (4.70-6.10)
[2023-02-26] MEDS: POLYETHYLENE (MIRALAX) 17 GM PACK PO SCH (11:11)
[2023-02-26] MEDS: Cefepime 2,000 MG Extended Infusion IV SCH ×2 (11:22→22:12)
[2023-02-26] MEDS: FIRST - Mouthwash BLM 119 ML PO PRN ×2 (12:53→18:11)
--- NOTE | 2023-02-26 14:18 | XRay Report ---
XR chest 1V portable CLINICAL HISTORY: hypoxia/pneumonia COMPARISON STUDY: Chest CT February 18, 2023. Chest radiograph February 24, 2023. FINDINGS: There is no pneumothorax. Lung volumes are diminished. This is unchanged. Left basilar airs pace opacity has progressed. There is mild right basilar opacity, similar to prior exam. Diffuse inte rstitial thickening is again noted. IMPRESSION: 1. Increase in left basilar airspace opacity suggestive of pneumonia. No significant change in right basilar opacity which may also be infectious. 2. No change in interstitial thickening. 3. Emphysema. ACT 112: Negative or not required by law. Electronically signed by: Conner Villalpando M.D. 02/26/2023 2:17 PM
--- NOTE | 2023-02-26 15:37 | XRay Report ---
XR KUB/Abdomen 1 view CLINICAL HISTORY: abdominal distention TECHNIQUE: 1 view of the abdomen was obtained. Comparison: Comparison is made to chest and abdomen radiographs 09/17/2022 FINDINGS: Lung bases are unremarkable. Degenerative changes are seen in the visualized skeleton. Right hip tota l arthroplasty and left femoral medullary nail is seen. The bowel gas pattern is nonobstructive. A mo derate amount of stool is noted within the large bowel. IMPRESSION: Nonobstructive bowel gas pattern. ACT 112: Negative or not required by law. Electronically signed by: Henry Ellsworth M.D. 02/26/2023 3:36 PM
[2023-02-26] MEDS: TAMSULOSIN HCL 0.4 MG CAP PO SCH (20:07)
--- NOTE | 2023-02-26 23:06 | Hospitalist Progress Note ---
Date of Service February 26, 2023 Assessment & Plan (1) Acute hypoxemic respiratory failure: Plan: Acute hypoxic respiratory failure in a 87 yo male with PMH of COPD and recent COVID 19, treating for MRSA pneumonia and also gram-negative pneumonia Pulmonary medicine feels exacerbation of bronchiectasis with previous history of Pseudomonas, Recommend completing 14 days extended dosing cefuroxime under the direction of pharmacy. The patient can then resume his nebulized tobramycin 28 days on 28 days off in the outpatient setting. Tapering steroids over the next few days and continuing performance and as needed DuoNebs His respiratory status was also impacted by acute exacerbation of his diastolic heart failure and cardiology recommended negative fluid balance. Initially treated with twice daily Bumex now reduced to p.o. once a day CT chest shows L irregular nodular opacity in the inferior aspect of the right upper lobe which measures 2.3 x 1.8 this may be residual infiltrates from previous CT scan from January 27 Patient still requiring a large amount of oxygen. Imaging shows slight worsening, WBC also worsening. Inflamatory markers are worse Will recheck labs in AM. If no improvement, will consider MRSA coverage. (2) COVID-19: Plan: Patient was discharged with a recent covid 19 diagnosis. day 11 is 02/22 pt with chronic pulmonary sx now at baseline Patient started on methylprednisolone per pulmonary medicine-> taper to prednsione 02/23/23 (3) Hypertension: Plan: Chronic and stable on diltiazem and Bumex, Bumex changed to p.o. on 02/21 (4) COPD exacerbation: Plan: COPD, concern for multifocal pneumonia, Pulmonary de-escalated to cefepime monotherapy plus tapering steroids nebs ordered. Replace powdered medications (5) Multifocal atrial tachycardia: Plan: Continue diltiazem, likely albuterol and adrenergic response from his distress feeding into tachycardia, Tachycardia is brought on by physiological stress (6) Hypothyroidism: Plan: resume levothyroxine. Plan CPAP in evening for Obstructive sleep apnea. Patient in need of rehab placement due to weakness Admission and Anticipated Discharge Date Admission Date: February 18, 2023 Subjective Patient reports feeling better. Patient not at baseline. Review of Systems Review of Systems: All systems reviewed & are unremarkable except as noted in HPI & below Physical Exam Physical Exam: Patient lying in bed slightly uprght. Patient in no acute distress, able to speak in full sentences, Coarse rhonchi with coughing prolonged expiratory phase no wheezes Results & Data Results & Data Vital Signs (Past 12 Hours) Vital Signs Temp Pulse Resp BP Pulse Ox O2 Del Method O2 Flow Rate 02/26/23 19:30 Nasal Cannula 7 02/26/23 19:52 36.6 C 95 H 20 137/78 96 Nasal Cannula 7 02/26/23 19:14 97 H 18 95 Nasal Cannula 7 02/26/23 14:47 36.5 C 88 14 127/78 94 Nasal Cannula 7 02/26/23 12:08 111 H 20 94 Nasal Cannula 7 PG Care Time/CCT Total # of Minutes Spent Total Time Spent with Patient: Total time spent is greater than 50% in coordination of care (as documented) at patient's floor/unit and/or counseling patient: Coding Level of Care Code 94580 SUB INP/OBS CARE 2/35MIN Diagnoses Acute hypoxemic respiratory failure J96.01 COVID-19 U07.1 Hypertension I10 COPD exacerbation J44.1 Multifocal atrial tachycardia I47.1 Hypothyroidism E03.9 Hypothyroidism type: unspecified (6) Hypothyroidism Hypothyroidism type: unspecified Qualified Code(s): E03.9 - Hypothyroidism, unspecified
[2023-02-27] MEDS: [UNRECOGNIZED DRUG - OTHER] SCH ×2 (01:19→09:07)
[2023-02-27] MEDS: HEPARIN SOD 5,000 UNIT/0.5 ML VIAL SQ SCH ×3 (05:50→22:02)
[2023-02-27] MEDS: LEVOTHYROXINE SODIUM 150 MCG TABLET PO SCH (05:50)
[2023-02-27] MEDS: CLOTRIMAZOLE 10 MG TROCHE BUCCAL SCH ×5 (05:50→22:02)
[2023-02-27] MEDS: FIRST - Mouthwash BLM 119 ML PO PRN ×3 (05:51→20:16)
[2023-02-27] MEDS: BUDESONIDE 0.5 MG/2 ML VIAL (PULMICORT) NEB SCH ×2 (07:12→19:21)
[2023-02-27] MEDS: FORMOTEROL 20 MCG/2 ML VIAL NEB SCH ×2 (07:12→19:21)
[2023-02-27] MEDS: SODIUM CHLOR 7% 4 ML NEB NEB SCH ×2 (07:12→19:21)
[2023-02-27] MEDS: LEVALBUTEROL 1.25 MG/3 ML NEB NEB SCH ×3 (07:12→19:21)
--- NOTE | 2023-02-27 07:45 | Pulmonology Progress Note ---
Date of Service February 27, 2023 Assessment & Plan (1) Bronchiectasis with (acute) exacerbation: (2) COPD exacerbation: (3) Pseudomonas aeruginosa infection: (4) Hypoxia: Plan Impression: 87-year-old male with mild sleep disordered breathing and moderate obstructive lung disease (overlap syndrome) admitted with progressive hypoxemic respiratory failure. He is status post recent admission for COVID. Patient does have Pseudomonas and bronchiectasis and is likely suffering from an exacerbation of his bronchiectasis. He continues to demonstrate fluid overload. Recommendations: 1. Bronchiectasis exacerbation: Sputum culture positive for pansensitive Pseudomonas. Recommend completing 14 days extended dosing cefepime under the direction of pharmacy. The patient can then resume his nebulized tobramycin 28 days on 28 days off in the outpatient setting. Antibiotics can be administered through the correction facility and he does not necessarily need to be in the hospital to complete the course of antibiotics. His white count was elevated yesterday but has been afebrile. Repeat CBC today recommended. Would continue to follow clinically. Would hold on staph coverage. Can repeat sputum culture today. Recommend speech therapy evaluation for occult aspiration 2. COPD: Continue budesonide and hypertonic saline. Continue steroids for an additional day then discontinue. Continue Perforomist and as needed DuoNebs. 3. Hypoxemia: Continue oxygen at night. Continue incentive spirometry and flutter valve. Oxygenation would improve if the patient was out of bed to chair and upright. 4. Sleep disordered breathing: Continue CPAP. No one can bring in his home machine so we will continue our machine at night. 5. Pulmonary nodule: Outpatient follow-up will be arranged at discharge. Follow-up CT scan in 3 to 4 months is reasonable. 6. Continue diuretics as tolerated Patient will need rehab. Discussion of goals of care would not be unreasonable in this patient Admission and Anticipated Discharge Date Admission Date: February 18, 2023 Subjective Patient seen and examined. MAR reviewed. The patient feels that he is arnulfo athing a little bit better. He is expectorating less and is profoundly weak and deconditioned. He has not been out of bed. He has not experienced any hemoptysis. He feels his wheezing is reasonably well controlled. He is tolerating a diet. Review of Systems Review of Systems: All systems reviewed & are unremarkable except as noted in Subjective Physical Exam Constitutional: WD/WN, vitals as above Neck: trachea midline, no thyromegaly Respiratory: normal respiratory effort, lungs clear to auscultation no respiratory distress and no labored breathing Auscultation: + wheezes Cardiovascular: Rate/Rhythm: regular rate Heart Sounds: normal S1 and normal S2; no murmur Extremities: + edema Gastrointestinal (Abdomen): normal bowel sounds, soft, nontender, no hepatosplenomegaly Musculoskeletal: Extremities: extremities normal to inspection Skin: no rashes, warm and dry Lymphatic: no cervical lymphadenopathy Results & Data Results & Data Vital Signs (Past 12 Hours) Vital Signs Temp Pulse Resp BP Pulse Ox O2 Del Method O2 Flow Rate 02/27/23 07:13 98 H 15 89 L Nasal Cannula 5 02/26/23 23:54 99 H 18 96 Nasal Cannula 5 02/26/23 19:52 36.6 C 95 H 20 137/78 96 Nasal Cannula 7 Laboratory Results 02/26/23 08:32 02/26/23 08:32 PG Care Time/CCT Total # of Minutes Spent Total Time Spent with Patient: Total time spent is greater than 50% in coordination of care (as documented) at patient's floor/unit and/or counseling patient: Coding Level of Care Code 32370 SUB INP/OBS CARE 2/35MIN Diagnoses Bronchiectasis with (acute) exacerbation J47.1 COPD exacerbation J44.1 Pseudomonas aeruginosa infection A49.8 Hypoxia R09.02
[2023-02-27 08:34] LABS: Hematocrit (blood only) 36.7 % (42.0-52.0); Hemoglobin 11.9 g/dl (14.0-18.0); Mean Corpuscular Hemoglobin 25.9 pg (25.0-34.0); Mean Corpuscular Hgb Conc 32.4 g/dL (32.0-36.0); Mean Corpuscular Volume 79.8 fL (80.0-100.0); Mean Platelet Volume 12.3 fL (9.4-12.4); Platelet Count 170 K/uL (130-400); RDW Coefficient of Variation 16.4 % (11.5-14.5); RDW Standard Deviation 46.5 fL (36.4-46.3)
[2023-02-27 08:36] LABS: Albumin Globulin Ratio 0.9 (0.9-2); Albumin Level 2.8 gm/dl (3.4-5.0); BUN Creatinine Ratio 33.3 (10-20); Bilirubin,Total 0.7 mg/dl (0.2-1.0); C Reactive Protein 4.51 mg/dl (0-0.5); Calcium 8.4 mg/dl (8.6-10.3); Creatinine Clr Calc Pharmacy 40.6 ml/min; Est GFR (African American) 54.7 ml/min; Est GFR (Non-African American) 47.2 ml/min; Globulin 3.1 gm/dl (2.5-4.0); Potassium 3.5 mmol/L (3.5-5.1); Total Protein 5.9 gm/dl (6.0-8.3)
[2023-02-27] MEDS: MAGNESIUM OXIDE 400 MG TAB PO SCH (09:07)
[2023-02-27] MEDS: FINASTERIDE 5 MG TAB PO SCH (09:07)
[2023-02-27] MEDS: predniSONE 20 MG TAB PO SCH (09:07)
[2023-02-27] MEDS: BUMETANIDE 1 MG TAB PO SCH (09:07)
[2023-02-27] MEDS: POLYETHYLENE (MIRALAX) 17 GM PACK PO SCH (09:07)
[2023-02-27] MEDS: DICLOFENAC SOD 1% GEL 100 GM TUBE EXT SCH ×4 (09:07→20:14)
[2023-02-27] MEDS: SENNA 8.6 MG TAB PO SCH (09:07)
[2023-02-27] MEDS: dilTIAZem HCL 180 MG CAPCR PO SCH (09:07)
[2023-02-27] MEDS: CHOLECALCIFEROL 1,000 UNITS 25 MCG TAB PO SCH (09:07)
[2023-02-27] MEDS: PANTOprazole 40 MG TAB PO SCH (09:07)
[2023-02-27] MEDS: MUPIROCIN 2% OINT 22 GM TUBE TOP SCH ×2 (09:08→20:13)
[2023-02-27] MEDS: MULTIVITAMIN TAB PO SCH (09:18)
[2023-02-27] MEDS: Cefepime 2,000 MG Extended Infusion IV SCH ×2 (11:57→22:02)
--- NOTE | 2023-02-27 12:05 | Fluoroscopy Report ---
FL video swallow CLINICAL HISTORY: r/o aspiration TECHNIQUE: Video fluoroscopy of the pharyngeal region was performed as barium mixtures of varying con sistencies were administered to the patient by the speech pathologist. A formal esophagram was not pe rformed. Comparison: None available at the time of this dictation. FINDINGS: Total fluoroscopy time: 1.27 minutes. Radiation dose: 7.79 mGy. The patient swallowed the different barium consistencies without difficulty. There was no laryngeal v estibular penetration or shalini tracheal aspiration. Pooling of barium was noted in the bilateral piri form sinuses and valleculae. Retrograde flow in the esophagus was noted. IMPRESSION: No evidence of aspiration. Please see the speech pathology report for further details. ACT 112: Negative or not required by law. Electronically signed by: Henry Ellsworth M.D. 02/27/2023 12:03 PM
[2023-02-27] MEDS: TAMSULOSIN HCL 0.4 MG CAP PO SCH (20:13)
--- NOTE | 2023-02-27 23:07 | Hospitalist Progress Note ---
Date of Service February 27, 2023 Assessment & Plan (1) Acute hypoxemic respiratory failure: Plan: Acute hypoxic respiratory failure in a 87 yo male with PMH of COPD and recent COVID 19, treating for MRSA pneumonia and also gram-negative pneumonia Pulmonary medicine feels exacerbation of bronchiectasis with previous history of Pseudomonas, Recommend completing 14 days extended dosing cefuroxime under the direction of pharmacy. The patient can then resume his nebulized tobramycin 28 days on 28 days off in the outpatient setting. Tapering steroids over the next few days and continuing performance and as needed DuoNebs His respiratory status was also impacted by acute exacerbation of his diastolic heart failure and cardiology recommended negative fluid balance. Initially treated with twice daily Bumex now reduced to p.o. once a day CT chest shows L irregular nodular opacity in the inferior aspect of the right upper lobe which measures 2.3 x 1.8 this may be residual infiltrates from previous CT scan from January 27 Patient still requiring a large amount of oxygen. Imaging shows slight worsening, WBC also worsening. lab work appears better on 02/27; will continue current management. discussed with pulmonary. Updated on 02/27 (2) COVID-19: Plan: Patient was discharged with a recent covid 19 diagnosis. day 11 is 02/22 pt with chronic pulmonary sx now at baseline Patient started on methylprednisolone per pulmonary medicine-> taper to prednsione 02/23/23 (3) Hypertension: Plan: Chronic and stable on diltiazem and Bumex, Bumex changed to p.o. on 02/21 (4) COPD exacerbation: Plan: COPD, concern for multifocal pneumonia, Pulmonary de-escalated to cefepime monotherapy plus tapering steroids nebs ordered. Replace powdered medications (5) Multifocal atrial tachycardia: Plan: Continue diltiazem, likely albuterol and adrenergic response from his distress feeding into tachycardia, Tachycardia is brought on by physiological stress (6) Hypothyroidism: Plan: resume levothyroxine. Plan CPAP in evening for Obstructive sleep apnea. Patient in need of rehab placement due to weakness Admission and Anticipated Discharge Date Admission Date: February 18, 2023 Subjective 87 yo male reports no new symptoms. Review of Systems Review of Systems: All systems reviewed & are unremarkable except as noted in HPI & below Physical Exam Physical Exam: Patient lying in bed slightly uprght. Patient in no acute distress, able to speak in full sentences, Coarse rhonchi with coughing prolonged expiratory phase no wheezes Results & Data Results & Data Vital Signs (Past 12 Hours) Vital Signs Temp Pulse Resp BP Pulse Ox O2 Del Method O2 Flow Rate 02/27/23 22:09 36.6 C 107 H 22 130/85 95 Nasal Cannula 7 02/27/23 19:15 Nasal Cannula 7 02/27/23 21:03 36.6 C 94 H 22 126/75 93 Nasal Cannula 7 02/27/23 19:22 97 H 18 94 Nasal Cannula 7 02/27/23 15:36 36.7 C 93 H 16 113/65 92 Nasal Cannula 7 02/27/23 14:07 101 H 15 95 Nasal Cannula 6 PG Care Time/CCT Total # of Minutes Spent Total Time Spent with Patient: Total time spent is greater than 50% in coordination of care (as documented) at patient's floor/unit and/or counseling patient: Coding Level of Care Code 99197 SUB INP/OBS CARE 2/35MIN Diagnoses Acute hypoxemic respiratory failure J96.01 COVID-19 U07.1 Hypertension I10 COPD exacerbation J44.1 Multifocal atrial tachycardia I47.1 Hypothyroidism E03.9 Hypothyroidism type: unspecified Time Spent (min) 35 (6) Hypothyroidism Hypothyroidism type: unspecified Qualified Code(s): E03.9 - Hypothyroidism, unspecified
[2023-02-28] MEDS: LEVALBUTEROL 1.25 MG/3 ML NEB NEB SCH ×4 (00:23→19:15)
[2023-02-28] MEDS: FIRST - Mouthwash BLM 119 ML PO PRN ×7 (04:27→23:32)
[2023-02-28] MEDS: LEVOTHYROXINE SODIUM 150 MCG TABLET PO SCH (06:20)
[2023-02-28] MEDS: HEPARIN SOD 5,000 UNIT/0.5 ML VIAL SQ SCH ×3 (06:20→22:30)
[2023-02-28] MEDS: CLOTRIMAZOLE 10 MG TROCHE BUCCAL SCH ×5 (06:20→22:34)
[2023-02-28] MEDS: FORMOTEROL 20 MCG/2 ML VIAL NEB SCH ×2 (07:13→19:14)
[2023-02-28] MEDS: BUDESONIDE 0.5 MG/2 ML VIAL (PULMICORT) NEB SCH ×2 (07:13→19:14)
[2023-02-28] MEDS: SODIUM CHLOR 7% 4 ML NEB NEB SCH ×2 (07:13→19:14)
--- NOTE | 2023-02-28 08:16 | Pulmonology Progress Note ---
Date of Service February 28, 2023 Assessment & Plan (1) Bronchiectasis with (acute) exacerbation: (2) COPD exacerbation: (3) Pseudomonas aeruginosa infection: (4) Hypoxia: Plan Impression: 87-year-old male with mild sleep disordered breathing and moderate obstructive lung disease (overlap syndrome) admitted with progressive hypoxemic respiratory failure. He is status post recent admission for COVID. Patient does have Pseudomonas and bronchiectasis and is likely suffering from an exacerbation of his bronchiectasis. He is clinically improving. Recommendations: 1. Bronchiectasis exacerbation: Sputum culture positive for pansensitive Pseudomonas. Recommend completing 14 days extended dosing cefepime under the direction of pharmacy. The patient can then resume his nebulized tobramycin 14 days on and 14 days off in the outpatient setting. Antibiotics can be administered through the assisted facility and he does not necessarily need to be in the hospital to complete the course of antibiotics. White blood cell count better today. Speech therapy evaluation showed no evidence of aspiration. 2. COPD: Continue budesonide and hypertonic saline. Continue steroids for an additional day then discontinue. Continue Perforomist and as needed DuoNebs. 3. Hypoxemia: Continue oxygen at night. Continue incentive spirometry and flutter valve. Ambulate patient 3 times daily and out of bed to chair as much as possible during the day. Wean oxygen to maintain oxygen saturations at or above 90% 4. Sleep disordered breathing: Continue CPAP. No one can bring in his home machine so we will continue our machine at night. 5. Pulmonary nodule: Outpatient follow-up will be arranged at discharge. Follow-up CT scan in 3 to 4 months is reasonable. 6. Continue diuretics as tolerated Patient will need rehab. Discussion of goals of care would not be unreasonable in this patient. The patient appears to have plateaued with regards to his inpatient needs. Clinical improvement is going to be slow. I think the patient is appropriate for transition to the next level of care (assisted facility or LTAC) Admission and Anticipated Discharge Date Admission Date: February 18, 2023 Subjective Patient seen and examined. EMR reviewed. The patient states that he feels like he is doing better from a respiratory standpoint. His oxygen requirement is improved. He is coughing less. He does not feel that he is wheezing. He worked with physical therapy and states he was out of bed yesterday. He did reasonably well. Patient denies fevers chills night sweats or other constitutional symptoms. The patient completed a swallow study yesterday which showed no evidence of aspiration. Review of Systems Review of Systems: All systems reviewed & are unremarkable except as noted in Subjective Physical Exam Constitutional: WD/WN, vitals as above Neck: trachea midline, no thyromegaly Respiratory: normal respiratory effort, lungs clear to auscultation no respiratory distress and no labored breathing Auscultation: + wheezes Cardiovascular: Rate/Rhythm: regular rate Heart Sounds: normal S1 and normal S2; no murmur Extremities: + edema Gastrointestinal (Abdomen): normal bowel sounds, soft, nontender, no hepatosplenomegaly Musculoskeletal: Extremities: extremities normal to inspection Skin: no rashes, warm and dry Lymphatic: no cervical lymphadenopathy Results & Data Results & Data Vital Signs (Past 12 Hours) Vital Signs Temp Pulse Resp BP Pulse Ox O2 Del Method O2 Flow Rate 02/28/23 07:17 36.6 C 86 22 126/79 94 Nasal Cannula 7 02/28/23 07:14 86 18 94 Nasal Cannula 7 02/28/23 00:24 93 H 16 91 Nasal Cannula 7 02/27/23 22:09 36.6 C 107 H 22 130/85 95 Nasal Cannula 7 02/27/23 21:03 36.6 C 94 H 22 126/75 93 Nasal Cannula 7 Laboratory Results 02/27/23 07:38 02/27/23 07:38 Sputum culture for yesterday is pending Diagnostic Findings No new imaging PG Care Time/CCT Total # of Minutes Spent Total Time Spent with Patient: Total time spent is greater than 50% in coordination of care (as documented) at patient's floor/unit and/or counseling patient: Coding Level of Care Code 87756 SUB INP/OBS CARE 2/35MIN Diagnoses Bronchiectasis with (acute) exacerbation J47.1 COPD exacerbation J44.1 Pseudomonas aeruginosa infection A49.8 Hypoxia R09.02
[2023-02-28] MEDS: SENNA 8.6 MG TAB PO SCH (08:27)
[2023-02-28] MEDS: FINASTERIDE 5 MG TAB PO SCH (08:27)
[2023-02-28] MEDS: predniSONE 20 MG TAB PO SCH (08:27)
[2023-02-28] MEDS: BUMETANIDE 1 MG TAB PO SCH (08:27)
[2023-02-28] MEDS: MULTIVITAMIN TAB PO SCH (08:28)
[2023-02-28] MEDS: dilTIAZem HCL 180 MG CAPCR PO SCH (08:28)
[2023-02-28] MEDS: CHOLECALCIFEROL 1,000 UNITS 25 MCG TAB PO SCH (08:28)
[2023-02-28] MEDS: PANTOprazole 40 MG TAB PO SCH (08:28)
[2023-02-28] MEDS: MUPIROCIN 2% OINT 22 GM TUBE TOP SCH ×2 (08:28→20:30)
[2023-02-28] MEDS: DICLOFENAC SOD 1% GEL 100 GM TUBE EXT SCH ×4 (08:28→20:30)
[2023-02-28] MEDS: POLYETHYLENE (MIRALAX) 17 GM PACK PO SCH (08:28)
[2023-02-28] MEDS ORDERED: MAGNESIUM HYDROXIDE SUSP 30 ML UDC PO PRN (09:52)
[2023-02-28 13:09] LABS: Hematocrit (blood only) 39.4 % (42.0-52.0); Hemoglobin 12.5 g/dl (14.0-18.0); Mean Corpuscular Hemoglobin 25.9 pg (25.0-34.0); Mean Corpuscular Hgb Conc 31.7 g/dL (32.0-36.0); Mean Corpuscular Volume 81.7 fL (80.0-100.0); Mean Platelet Volume 12.6 fL (9.4-12.4); Platelet Count 186 K/uL (130-400); RDW Coefficient of Variation 16.8 % (11.5-14.5); RDW Standard Deviation 47.8 fL (36.4-46.3); Red Blood Count 4.82 M/uL (4.70-6.10); White Blood Count 12.08 K/ul (4.8-10.8)
[2023-02-28 13:24] LABS: BUN Creatinine Ratio 33.3 (10-20); C Reactive Protein 3.44 mg/dl (0-0.5); Calcium 8.9 mg/dl (8.6-10.3); Creatinine Clr Calc Pharmacy 41.5 ml/min; Est GFR (African American) 56.2 ml/min; Est GFR (Non-African American) 48.5 ml/min; Potassium 3.6 mmol/L (3.5-5.1)
[2023-02-28] MEDS ORDERED: Nursing to Pharmacy Communication SCH (15:00)
[2023-02-28] MEDS: Cefepime 2,000 MG Extended Infusion IV SCH ×2 (15:33→22:23)
[2023-02-28] MEDS: TAMSULOSIN HCL 0.4 MG CAP PO SCH (20:29)
--- NOTE | 2023-02-28 23:30 | Hospitalist Progress Note ---
Date of Service February 28, 2023 Assessment & Plan (1) Acute hypoxemic respiratory failure: Plan: Acute hypoxic respiratory failure in a 87 yo male with PMH of COPD and recent COVID 19, treating for MRSA pneumonia and also gram-negative pneumonia Pulmonary medicine feels exacerbation of bronchiectasis with previous history of Pseudomonas, Recommend completing 14 days extended dosing cefuroxime under the direction of pharmacy. The patient can then resume his nebulized tobramycin 28 days on 28 days off in the outpatient setting. Tapering steroids over the next few days and continuing performance and as needed DuoNebs His respiratory status was also impacted by acute exacerbation of his diastolic heart failure and cardiology recommended negative fluid balance. Initially treated with twice daily Bumex now reduced to p.o. once a day CT chest shows L irregular nodular opacity in the inferior aspect of the right upper lobe which measures 2.3 x 1.8 this may be residual infiltrates from previous CT scan from January 27 Patient still requiring 7 liters on 02/28 Will continue above treatment, obtained PICC line. Updated on 02/27 (2) COVID-19: Plan: Patient was discharged with a recent covid 19 diagnosis. day 11 is 02/22 pt with chronic pulmonary sx now at baseline Patient started on methylprednisolone per pulmonary medicine-> taper to prednsione 02/23/23 (3) Hypertension: Plan: Chronic and stable on diltiazem and Bumex, Bumex changed to p.o. on 02/21 (4) COPD exacerbation: Plan: COPD, concern for multifocal pneumonia, Pulmonary de-escalated to cefepime monotherapy plus tapering steroids nebs ordered. Replace powdered medications (5) Multifocal atrial tachycardia: Plan: Continue diltiazem, likely albuterol and adrenergic response from his distress feeding into tachycardia, Tachycardia is brought on by physiological stress (6) Hypothyroidism: Plan: resume levothyroxine. Plan CPAP in evening for Obstructive sleep apnea. Patient in need of rehab placement due to weakness Admission and Anticipated Discharge Date Admission Date: February 18, 2023 Subjective Patient reports no new symptoms. Review of Systems Review of Systems: All systems reviewed & are unremarkable except as noted in HPI & below Physical Exam Physical Exam: Patient lying in bed slightly uprght. Patient in no acute distress, able to speak in full sentences, Coarse rhonchi with coughing prolonged expiratory phase no wheezes Results & Data Results & Data Vital Signs (Past 12 Hours) Vital Signs Temp Pulse Resp BP BP Pulse Ox O2 Del Method 02/28/23 19:50 Nasal Cannula 02/28/23 20:35 36.6 C 95 H 22 153/79 H 94 High Flow Nasal Cannula 02/28/23 19:15 55 L 18 95 Nasal Cannula 02/28/23 14:15 36.8 C 97 H 20 118/74 96 Nasal Cannula 02/28/23 12:53 108 H 18 Nasal Cannula O2 Flow Rate 02/28/23 19:50 7 02/28/23 20:35 7 02/28/23 19:15 7 02/28/23 14:15 7 02/28/23 12:53 6 PG Care Time/CCT Total # of Minutes Spent Total Time Spent with Patient: Total time spent is greater than 50% in coordination of care (as documented) at patient's floor/unit and/or counseling patient: Coding Level of Care Code 66921 SUB INP/OBS CARE 2/35MIN Diagnoses Acute hypoxemic respiratory failure J96.01 COVID-19 U07.1 Hypertension I10 COPD exacerbation J44.1 Multifocal atrial tachycardia I47.1 Hypothyroidism E03.9 Hypothyroidism type: unspecified (6) Hypothyroidism Hypothyroidism type: unspecified Qualified Code(s): E03.9 - Hypothyroidism, unspecified
[2023-03-01] MEDS: ALBUT/IPRATROP 3MG/0.5MG NEB 3 ML VIAL NEB PRN (00:25)
[2023-03-01] MEDS: LEVALBUTEROL 1.25 MG/3 ML NEB NEB SCH ×4 (00:31→18:47)
[2023-03-01] MEDS: LEVOTHYROXINE SODIUM 150 MCG TABLET PO SCH (05:56)
[2023-03-01] MEDS: HEPARIN SOD 5,000 UNIT/0.5 ML VIAL SQ SCH ×3 (05:57→22:17)
[2023-03-01] MEDS: FIRST - Mouthwash BLM 119 ML PO PRN ×2 (06:22→19:56)
[2023-03-01] MEDS: CLOTRIMAZOLE 10 MG TROCHE BUCCAL SCH ×5 (06:23→22:17)
[2023-03-01] MEDS: SODIUM CHLOR 7% 4 ML NEB NEB SCH ×2 (07:27→18:46)
[2023-03-01] MEDS: BUDESONIDE 0.5 MG/2 ML VIAL (PULMICORT) NEB SCH ×2 (07:27→18:47)
[2023-03-01] MEDS: FORMOTEROL 20 MCG/2 ML VIAL NEB SCH ×2 (07:27→18:47)
[2023-03-01 07:29] LABS: Hematocrit (blood only) 35.9 % (42.0-52.0); Hemoglobin 11.4 g/dl (14.0-18.0); Mean Corpuscular Hemoglobin 25.7 pg (25.0-34.0); Mean Corpuscular Hgb Conc 31.8 g/dL (32.0-36.0); Mean Platelet Volume 11.8 fL (9.4-12.4); Platelet Count 156 K/uL (130-400); RDW Coefficient of Variation 16.8 % (11.5-14.5); RDW Standard Deviation 47.1 fL (36.4-46.3); Red Blood Count 4.43 M/uL (4.70-6.10); White Blood Count 10.91 K/ul (4.8-10.8)
[2023-03-01 07:49] LABS: BUN Creatinine Ratio 33.1 (10-20); C Reactive Protein 2.14 mg/dl (0-0.5); Calcium 8.8 mg/dl (8.6-10.3); Creatinine Clr Calc Pharmacy 40.3 ml/min; Est GFR (African American) 54.2 ml/min; Est GFR (Non-African American) 46.8 ml/min; Potassium 3.5 mmol/L (3.5-5.1)
[2023-03-01] MEDS: BUMETANIDE 1 MG TAB PO SCH (09:30)
[2023-03-01] MEDS: CHOLECALCIFEROL 1,000 UNITS 25 MCG TAB PO SCH (09:31)
[2023-03-01] MEDS: dilTIAZem HCL 180 MG CAPCR PO SCH (09:32)
[2023-03-01] MEDS: FINASTERIDE 5 MG TAB PO SCH (09:32)
[2023-03-01] MEDS: MULTIVITAMIN TAB PO SCH (09:33)
[2023-03-01] MEDS: SENNA 8.6 MG TAB PO SCH (09:33)
[2023-03-01] MEDS: PANTOprazole 40 MG TAB PO SCH (09:34)
[2023-03-01] MEDS: predniSONE 20 MG TAB PO SCH (09:34)
--- NOTE | 2023-03-01 10:07 | XRay Report ---
TWO VIEW CHEST CLINICAL HISTORY: Hypoxia. FINDINGS: AP upright and lateral chest radiographs are compared to study dated 02/26/2023 and correlat ed with chest CT dated 02/18/2023. The AP view is degraded by patient rotation. A right PICC line is ne w from previous. The tip of the catheter projects over the cavoatrial junction. The heart is enlarged . Emphysema and changes of chronic interstitial lung disease are similar to previous. There are incre asing bibasilar airspace opacities when compared to 02/26/2023. There is no large pleural effusion or pneumothorax. The skeletal structures are osteopenic. The bony thorax appears intact. Degenerative ch dieudonne and mild hyperkyphosis is seen in the spine. Residual enteric contrast is noted in the bowel. IMPRESSION: 1. Cardiomegaly and emphysema with superimposed changes of chronic interstitial lung disease. This is similar to previous. 2. There are increasing bibasilar airspace opacities. This could represent pneumonia/aspiration pneum onitis and/or possibly a component of pulmonary edema. Correlate clinically. Radiographic follow-up t o resolution is recommended. 3. A right PICC line is new from previous. ACT 112: Negative or not required by law. Electronically signed by: Roosevelt Hairsotn M.D. 03/01/2023 10:06 AM
[2023-03-01] MEDS: POLYETHYLENE (MIRALAX) 17 GM PACK PO SCH (10:18)
[2023-03-01] MEDS: DICLOFENAC SOD 1% GEL 100 GM TUBE EXT SCH ×4 (10:47→22:17)
--- NOTE | 2023-03-01 12:17 | Pulmonology Progress Note ---
Date of Service March 01, 2023 Assessment & Plan (1) Bronchiectasis with (acute) exacerbation: (2) COPD exacerbation: (3) Pseudomonas aeruginosa infection: (4) Hypoxia: Plan Impression: 87-year-old male with mild sleep disordered breathing and moderate obstructive lung disease (overlap syndrome) with associated bronchiectasis admitted with progressive hypoxemic and hypercarbic respiratory failure. He is status post recent admission for COVID. Patient does have Pseudomonas and bronchiectasis and is likely suffering from an exacerbation of his bronchiectasis. He is clinically improving. His oxygen requirements appear to have plateaued. Recommendations: 1. Bronchiectasis exacerbation: Sputum culture positive for pansensitive Pseudomonas. Day #12 of 14 extended dosing cefepime under the direction of pharmacy. The patient can then resume his nebulized tobramycin 14 days on and 14 days off after the completion of parenteral antibiotics. Antibiotics can be administered through the intermediate facility and he does not necessarily need to be in the hospital to complete the course of antibiotics. Speech therapy evaluation showed no evidence of aspiration. 2. COPD: Continue budesonide and hypertonic saline. Continue Perforomist and as needed DuoNebs. Completed course of prednisone and will discontinue 3. Hypoxemia: Continue oxygen at night. Continue incentive spirometry and flutter valve. Ambulate patient 3 times daily and out of bed to chair as much as possible during the day. Wean oxygen to maintain oxygen saturations at or above 88% 4. Sleep disordered breathing: Continue CPAP. No one can bring in his home machine so we will continue our machine at night. 5. Pulmonary nodule: Outpatient follow-up will be arranged at discharge. Fo llow-up CT scan in 3 to 4 months is reasonable. 6. Continue diuretics as tolerated I had a long and extensive discussion with the patient and with all of his family members at bedside. Some of his daughters are nurses so they have some medical knowledge. We discussed the patient has end-stage lung disease with both hypoxemic and hypercarbic respiratory failure. Unfortunately this is not likely to be reversible given his underlying structural lung disease. I discussed with the patient with his family in attendance that his ultimate demise will likely be as a result of a respiratory issue and having a discussion with his family members present to decide what that looks like would be entirely appropriate at this point in time. I think if the patient were to develop progressive respiratory failure requiring intubation mechanical ventilation it would be unlikely that we would improve his quantity or quality of life with mechanical ventilation and I would take him out of the pictures for his decision-making processes. I encouraged him to have discussions with his family and to try and make some decisions regarding advanced directives. In addition I advised the patient that at some point or efforts to try and optimize his pulmonary status will ultimately be unsuccessful at that point time I would favor transition to a palliative approach. We discussed symptom management for dyspnea and cough and I advised the patient that these medications can be highly effective in alleviating symptoms. He is taken it under advisement and will discuss with his family. The patient's oxygen requirement appears to be too high to support at a intermediate facility. If that is the case, would recommend reaching out to a long- term acute care facility as I think the patient has achieved maximal benefit of inpatient hospitalization at this point in time. Admission and Anticipated Discharge Date Admission Date: February 18, 2023 Subjective Patient seen and examined. EMR reviewed. Multiple family members in attendance. The patient is sitting up in a chair today. He states his breathing is doing okay. He continues to cough and expectorate clear to slightly green-tinged phlegm. He is not had any hemoptysis. His oxygen requirement remains high. He is eating okay. Review of Systems Review of Systems: All systems reviewed & are unremarkable except as noted in Subjective Physical Exam Constitutional: WD/WN, vitals as above Neck: trachea midline, no thyromegaly Respiratory: normal respiratory effort, lungs clear to auscultation no r espiratory distress and no labored breathing Auscultation: + wheezes Cardiovascular: Rate/Rhythm: regular rate Heart Sounds: normal S1 and normal S2; no murmur Extremities: + edema Gastrointestinal (Abdomen): normal bowel sounds, soft, nontender, no hepatosplenomegaly Musculoskeletal: Extremities: extremities normal to inspection Skin: Bilateral lower extremities from the mid calf distal are purple. Slight edema. Lymphatic: no cervical lymphadenopathy Results & Data Results & Data Vital Signs (Past 12 Hours) Vital Signs Pulse Resp BP Pulse Ox O2 Del Method O2 Flow Rate 03/01/23 11:22 111 H 20 89 L Nasal Cannula 8 03/01/23 09:44 84 L Nasal Cannula 5 03/01/23 07:45 89 18 129/84 99 Nasal Cannula 7 03/01/23 07:28 97 H 19 93 Nasal Cannula 03/01/23 06:40 96 H 18 130/88 94 Nasal Cannula 03/01/23 00:25 96 H 18 92 Nasal Cannula 7 Laboratory Results 03/01/23 07:11 03/01/23 07:11 Diagnostic Findings Chest x-ray from today was reviewed. Lung volumes are low. There are bibasilar densities noted. PG Care Time/CCT Total # of Minutes Spent Total Time Spent with Patient: Total time spent is greater than 50% in coordination of care (as documented) at patient's floor/unit and/or counseling patient: Coding Level of Care Code 98197 SUB INP/OBS CARE 2/35MIN Diagnoses Bronchiectasis with (acute) exacerbation J47.1 COPD exacerbation J44.1 Pseudomonas aeruginosa infection A49.8 Hypoxia R09.02
[2023-03-01] MEDS: Cefepime 2,000 MG Extended Infusion IV SCH ×2 (13:38→22:33)
[2023-03-01] MEDS: MUPIROCIN 2% OINT 22 GM TUBE TOP SCH ×2 (13:39→22:17)
[2023-03-01] MEDS ORDERED: SODIUM CHLORIDE 0.65% NA SOLN 45 ML (OCEAN) ONE (13:45)
[2023-03-01] MEDS ORDERED: POTASSIUM CHLORIDE CRTAB 20 MEQ TABCR PO STA (15:13)
[2023-03-01] MEDS ORDERED: BUMETANIDE 2 MG in SYRINGE 0 ML IV ONE (15:30)
[2023-03-01] MEDS ORDERED: POLYETHYLENE (MIRALAX) 17 GM PACK PO PRN (21:32)
--- NOTE | 2023-03-01 22:09 | Hospitalist Progress Note ---
Date of Service March 01, 2023 Assessment & Plan (1) Acute hypoxemic respiratory failure: Plan: Acute hypoxic respiratory failure in a 87 yo male with PMH of COPD and recent COVID 19, treating for MRSA pneumonia and also gram-negative pneumonia Pulmonary medicine feels exacerbation of bronchiectasis with previous history of Pseudomonas, Recommend completing 14 days extended dosing cefuroxime under the direction of pharmacy. The patient can then resume his nebulized tobramycin 28 days on 28 days off in the outpatient setting. Tapering steroids over the next few days and continuing performance and as needed DuoNebs His respiratory status was also impacted by acute exacerbation of his diastolic heart failure and cardiology recommended negative fluid balance. Initially treated with twice daily Bumex now reduced to p.o. once a day CT chest shows L irregular nodular opacity in the inferior aspect of the right upper lobe which measures 2.3 x 1.8 this may be residual infiltrates from previous CT scan from January 27 Oxygen requirement is not improving which is a stong concern. Labs are improving though. Pulmonary discussed with patient and family poor prognosis. will try chest vest. Will continue above treatment, obtained PICC line. Updated on 03/01 (2) COVID-19: Plan: Patient was discharged with a recent covid 19 diagnosis. day 11 is 02/22 pt with chronic pulmonary sx now at baseline Patient started on methylprednisolone per pulmonary medicine-> taper to prednsione 02/23/23 (3) Hypertension: Plan: Chronic and stable on diltiazem and Bumex, Bumex changed to p.o. on 02/21 (4) COPD exacerbation: Plan: COPD, concern for multifocal pneumonia, Pulmonary de-escalated to cefepime monotherapy plus tapering steroids nebs ordered. Replace powdered medications (5) Multifocal atrial tachycardia: Plan: Continue diltiazem, likely albuterol and adrenergic response from his distress feeding into tachycardia, Tachycardia is brought on by physiological stress (6) Hypothyroidism: Plan: resume levothyroxine. Plan CPAP in evening for Obstructive sleep apnea. Patient in need of rehab placement due to weakness Admission and Anticipated Discharge Date Admission Date: February 18, 2023 Subjective Patient reports no new symptoms. Review of Systems Review of Systems: All systems reviewed & are unremarkable except as noted in HPI & below Physical Exam Physical Exam: Patient lying in bed slightly uprght. Patient in no acute distress, able to speak in full sentences, Coarse rhonchi with coughing prolonged expiratory phase no wheezes Results & Data Results & Data Vital Signs (Past 12 Hours) Vital Signs Temp Pulse Resp BP Pulse Ox O2 Del Method O2 Flow Rate 03/01/23 22:06 36.6 C 99 H 20 136/83 90 Nasal Cannula, High Flow Nasal Cannula 03/01/23 19:01 104 H 24 91 High Flow Nasal Cannula 35 03/01/23 18:47 22 High Flow Nasal Cannula 03/01/23 18:29 36.5 C 100 H 20 113/65 03/01/23 16:06 61 15 91 High Flow Nasal Cannula 25 03/01/23 13:33 120 H 24 97 Nasal Cannula 8 03/01/23 11:22 111 H 20 89 L Nasal Cannula 8 FiO2 03/01/23 22:06 03/01/23 19:01 40 03/01/23 18:47 03/01/23 18:29 03/01/23 16:06 35 03/01/23 13:33 03/01/23 11:22 PG Care Time/CCT Total # of Minutes Spent Total Time Spent with Patient: Total time spent is greater than 50% in coordination of care (as documented) at patient's floor/unit and/or counseling patient: Coding Level of Care Code 98824 SUB INP/OBS CARE 2/35MIN Diagnoses Acute hypoxemic respiratory failure J96.01 COVID-19 U07.1 Hypertension I10 COPD exacerbation J44.1 Multifocal atrial tachycardia I47.1 Hypothyroidism E03.9 Hypothyroidism type: unspecified (6) Hypothyroidism Hypothyroidism type: unspecified Qualified Code(s): E03.9 - Hypothyroidism, unspecified
[2023-03-01] MEDS: TAMSULOSIN HCL 0.4 MG CAP PO SCH (22:17)
[2023-03-02] MEDS: ALBUT/IPRATROP 3MG/0.5MG NEB 3 ML VIAL NEB PRN (00:08)
[2023-03-02] MEDS: LEVALBUTEROL 1.25 MG/3 ML NEB NEB SCH ×4 (00:08→19:17)
[2023-03-02] MEDS: LEVOTHYROXINE SODIUM 150 MCG TABLET PO SCH (06:34)
[2023-03-02] MEDS: HEPARIN SOD 5,000 UNIT/0.5 ML VIAL SQ SCH ×3 (06:35→20:52)
[2023-03-02] MEDS: CLOTRIMAZOLE 10 MG TROCHE BUCCAL SCH ×5 (06:35→22:34)
[2023-03-02] MEDS: FIRST - Mouthwash BLM 119 ML PO PRN (06:36)
[2023-03-02 06:57] LABS: Hematocrit (blood only) 34.3 % (42.0-52.0); Hemoglobin 11.2 g/dl (14.0-18.0); Mean Corpuscular Hemoglobin 25.7 pg (25.0-34.0); Mean Corpuscular Hgb Conc 32.7 g/dL (32.0-36.0); Mean Corpuscular Volume 78.9 fL (80.0-100.0); Mean Platelet Volume 11.5 fL (9.4-12.4); Platelet Count 146 K/uL (130-400); RDW Standard Deviation 46.4 fL (36.4-46.3); Red Blood Count 4.35 M/uL (4.70-6.10); White Blood Count 11.01 K/ul (4.8-10.8)
[2023-03-02] MEDS: SODIUM CHLOR 7% 4 ML NEB NEB SCH ×2 (07:09→19:16)
[2023-03-02] MEDS: BUDESONIDE 0.5 MG/2 ML VIAL (PULMICORT) NEB SCH ×2 (07:09→19:16)
[2023-03-02] MEDS: FORMOTEROL 20 MCG/2 ML VIAL NEB SCH ×2 (07:09→19:16)
[2023-03-02 07:24] LABS: BUN Creatinine Ratio 36.3 (10-20); C Reactive Protein 2.33 mg/dl (0-0.5); Calcium 8.6 mg/dl (8.6-10.3); Creatinine Clr Calc Pharmacy 40.6 ml/min; Est GFR (African American) 54.7 ml/min; Est GFR (Non-African American) 47.2 ml/min; Potassium 3.6 mmol/L (3.5-5.1)
[2023-03-02] MEDS: BUMETANIDE 1 MG TAB PO SCH (08:40)
[2023-03-02] MEDS: MAGNESIUM OXIDE 400 MG TAB PO SCH (08:41)
[2023-03-02] MEDS: dilTIAZem HCL 180 MG CAPCR PO SCH (08:41)
[2023-03-02] MEDS: PANTOprazole 40 MG TAB PO SCH (08:41)
[2023-03-02] MEDS: MULTIVITAMIN TAB PO SCH (08:41)
--- NOTE | 2023-03-02 08:41 | Pulmonology Progress Note ---
Date of Service March 02, 2023 Assessment & Plan (1) Bronchiectasis with (acute) exacerbation: (2) COPD exacerbation: (3) Pseudomonas aeruginosa infection: (4) Hypoxia: Plan Impression: 87-year-old male with mild sleep disordered breathing and moderate obstructive lung disease (overlap syndrome) with associated bronchiectasis admitted with progressive hypoxemic and hypercarbic respiratory failure. He is status post recent admission for COVID. Patient does have Pseudomonas and bronchiectasis and is likely suffering from an exacerbation of his bronchiectasis. He is clinically improving. His oxygen requirements appear to have plateaued. Recommendations: 1. Bronchiectasis exacerbation: Sputum culture positive for pansensitive Pseudomonas. Day #13 of 14 extended dosing cefepime under the direction of pharmacy. The patient can then resume his nebulized tobramycin 14 days on and 14 days off after the completion of parenteral antibiotics. Antibiotics can be administered through the nursing home facility and he does not necessarily need to be in the hospital to complete the course of antibiotics. Speech therapy evaluation showed no evidence of aspiration. 2. COPD: Continue budesonide and hypertonic saline. Continue Perforomist and as needed DuoNebs. Completed course of prednisone and will discontinue 3. Hypoxemia: Continue oxygen at night. Continue incentive spirometry and flutter valve. Ambulate patient 3 times daily and out of bed to chair as much as possible during the day. Wean oxygen to maintain oxygen saturations at or above 88% 4. Sleep disordered breathing: Continue CPAP. No one can bring in his home machine so we will continue our machine at night. 5. Pulmonary nodule: Outpatient follow-up will be arranged at discharge. Follow-up CT scan in 3 to 4 months is reasonable. 6. Continue diuretics as tolerated 7. Patient is still thinking over code status after discussion yesterday. The patient's oxygen requirement appears to be too high to support at a nursing home facility. If that is the case, would recommend reaching out to a long- term acute care facility as I think the patient has achieved maximal benefit of inpatient hospitalization at this point in time. Admission and Anticipated Discharge Date Admission Date: February 18, 2023 Subjective Patient was seen and evaluated by myself at bedside. He is resting comfortably, but slightly dyspneic without exertion. He offers no complaints. He is still digesting the conversation from yesterday regarding consideration for palliative care medicine. Review of Systems Review of Systems: Unchanged from prior Physical Exam Physical Exam: VITAL SIGNS - Vital signs and nursing notes were reviewed. GENERAL - 87-year-old male appearing his stated age who is in no acute distress. Communicates well with provider and answers questions appropriately. MOUTH/OROPHARYNX - Without perioral cyanosis. LUNGS - Slightly tachypneic. Coarse breath sounds appreciated throughout all lung brown. CARDIAC - RRR with S1/S2. No murmur, rubs, or gallops appreciated. ABDOMEN - BS normoactive all four quadrants. No tenderness, palpable masses, or ascites noted. PSYCH - A&Ox3 and cooperates fully with examiner. Pt is very pleasant and interacts well with examiner. Results & Data Results & Data Vital Signs (Past 12 Hours) Vital Signs Temp Pulse Resp BP Pulse Ox O2 Del Method O2 Flow Rate 03/02/23 07:41 36.4 C 97 H 20 118/73 92 High Flow Nasal Cannula 03/02/23 07:14 78 20 90 High Flow Nasal Cannula 35 03/02/23 03:09 103 H 22 89 L High Flow Nasal Cannula 35 03/02/23 00:08 102 H 20 92 High Flow Nasal Cannula 35 03/01/23 22:27 111 H 20 90 High Flow Nasal Cannula 35 03/01/23 22:06 36.6 C 99 H 20 136/83 90 Nasal Cannula, High Flow Nasal Cannula FiO2 03/02/23 07:41 03/02/23 07:14 40 03/02/23 03:09 40 03/02/23 00:08 40 03/01/23 22:27 40 03/01/23 22:06 PG Care Time/CCT Total # of Minutes Spent Total Time Spent with Patient: Total time spent is greater than 50% in coordination of care (as documented) at patient's floor/unit and/or counseling patient: Coding Level of Care Code 27697 SUB INP/OBS CARE 3/50MIN Diagnoses Bronchiectasis with (acute) exacerbation J47.1 COPD exacerbation J44.1 Pseudomonas aeruginosa infection A49.8 Hypoxia R09.02
[2023-03-02] MEDS: FINASTERIDE 5 MG TAB PO SCH (08:42)
[2023-03-02] MEDS: POLYETHYLENE (MIRALAX) 17 GM PACK PO SCH (08:42)
[2023-03-02] MEDS: SENNA 8.6 MG TAB PO SCH (08:42)
[2023-03-02] MEDS: MUPIROCIN 2% OINT 22 GM TUBE TOP SCH ×2 (08:42→20:51)
[2023-03-02] MEDS: CHOLECALCIFEROL 1,000 UNITS 25 MCG TAB PO SCH (08:43)
[2023-03-02] MEDS: DICLOFENAC SOD 1% GEL 100 GM TUBE EXT SCH ×4 (08:43→20:52)
[2023-03-02] MEDS: Cefepime 2,000 MG Extended Infusion IV SCH ×3 (11:39→23:20)
[2023-03-02] MEDS ORDERED: DICYCLOMINE HCL 20 MG TAB PO PRN (13:50)
[2023-03-02] MEDS ORDERED: DICYCLOMINE HCL 10 MG CAP PO ONE (14:00)
[2023-03-02] MEDS ORDERED: OPTIRAY 320 125ml IV ONE (14:51)
--- NOTE | 2023-03-02 15:37 | CT Scan Report ---
CT ANGIOGRAM OF THE CHEST CLINICAL HISTORY: Dyspnea. COMPARISON STUDY: Chest x-ray dated 03/01/2023. Chest CT dated 02/18/2023. TECHNIQUE: Following the IV administration of 115 cc of Optiray 320, CT angiogram of the chest was pe rformed from the upper abdomen to the thoracic inlet utilizing the pulmonary embolus protocol. Images are reviewed in the axial, sagittal, and coronal planes. 3-D MIPS images are created and assessed. I V contrast was administered without complication. A dose lowering technique was utilized adhering to the principles of ALARA. The examination is significantly degraded by motion artifact, as well as by streak artifact from the right arm which could not be elevated above the chest. CT DOSE: 1071.84 mGy.cm FINDINGS: Thyroid: Imaged portions of the thyroid gland are normal in size and attenuation. Thoracic aorta: There is atherosclerotic calcification of the thoracic aorta, which is normal in [place] and demonstrates standard 3-vessel arch anatomy. No dissection is seen. Pulmonary vasculature: The main pulmonary arteries are dilated suggesting pulmonary artery hypertensi on. There are no filling defects identified in main, lobar, or proximal segmental pulmonary branches to suggest pulmonary embolus. Evaluation of the segmental and subsegmental branches is significantly compromised by motion artifact. Heart: The heart is enlarged and without pericardial effusion. The coronary arteries are densely calc ified. Lungs and pleural spaces: Evaluation of the lung parenchyma is significantly degraded by motion artif act. There is advanced emphysema with changes of chronic superimposed interstitial lung disease. Ther e is increasing multifocal airspace consolidation in the mid to lower lungs bilaterally. There are sm all pleural effusions. The trachea and central airways are grossly clear. Mediastinum: Mildly enlarged mediastinal lymph nodes measure up to 10 mm in short axis. Lottie: Mildly enlarged left hilar nodes measure up to 10 mm in short axis. Axillae: There is no axillary lymphadenopathy. Upper abdomen: Diverticula are noted in the partially imaged left colon. There is retained enteric co ntrast within the imaged colon. Skeletal structures: The skeletal structures are osteopenic. Arthritic change is seen in the shoulder s. Degenerative change and hyperkyphosis is noted in the thoracic spine. There is a chronic compressi on deformity of T4. No lytic or blastic bony lesions are seen. IMPRESSION: 1. Streak and motion compromised examination. 2. There is no evidence of central pulmonary embolus in the main, lobar, or proximal segmental pulmon luh arteries. 3. Cardiomegaly and advanced emphysema with changes of superimposed chronic interstitial lung disease . 4. There is extensive superimposed multifocal airspace consolidation in the mid to lower lungs. This has significantly increased from 02/18/2023 and favors pneumonia/aspiration pneumonitis. Correlate clin ically for evidence of concurrent pulmonary edema. Radiographic follow-up to resolution is recommende d. 5. Small pleural effusions. 6. Mildly enlarged mediastinal and hilar lymph nodes are likely reactive. 7. Additional findings as above. ACT 112: Negative or not required by law. Electronically signed by: Roosevelt Hairston M.D. 03/02/2023 3:35 PM
[2023-03-02] MEDS ORDERED: LINEZOLID 600 MG/300 ML D5W IV SCH (18:30)
[2023-03-02] MEDS: LINEZOLID 600 MG/300 ML BAG IV SCH (20:42)
[2023-03-02] MEDS: TAMSULOSIN HCL 0.4 MG CAP PO SCH (20:50)
[2023-03-02] MEDS: SIMETHICONE 80 MG CHEW PO PRN (22:14)
--- NOTE | 2023-03-02 22:38 | Hospitalist Progress Note ---
Date of Service March 02, 2023 Assessment & Plan (1) Acute hypoxemic respiratory failure: Plan: Acute hypoxic respiratory failure in a 87 yo male with PMH of COPD and recent COVID 19, treating for MRSA pneumonia and also gram-negative pneumonia Pulmonary medicine feels exacerbation of bronchiectasis with previous history of Pseudomonas, Recommend completing 14 days extended dosing cefuroxime under the direction of pharmacy. The patient can then resume his nebulized tobramycin 28 days on 28 days off in the outpatient setting. Tapering steroids over the next few days and continuing performance and as needed DuoNebs His respiratory status was also impacted by acute exacerbation of his diastolic heart failure and cardiology recommended negative fluid balance. Initially treated with twice daily Bumex now reduced to p.o. once a day CT chest shows L irregular nodular opacity in the inferior aspect of the right upper lobe which measures 2.3 x 1.8 this may be residual infiltrates from previous CT scan from January 27 Oxygen requirement is not improving which is a stong concern. Labs are improving though. Pulmonary discussed with patient and family poor prognosis. will try chest vest. Will continue above treatment, obtained PICC line. Updated on 03/02 Patient will be treated on linezolid to cover pneumonia. Now requiring 35 liters/min (2) COVID-19: Plan: Patient was discharged with a recent covid 19 diagnosis. day 11 is 02/22 pt with chronic pulmonary sx now at baseline Patient started on methylprednisolone per pulmonary medicine-> taper to prednsione 02/23/23 (3) Hypertension: Plan: Chronic and stable on diltiazem and Bumex, Bumex changed to p.o. on 02/21 (4) COPD exacerbation: Plan: COPD, concern for multifocal pneumonia, Pulmonary de-escalated to cefepime monotherapy plus tapering steroids nebs ordered. Replace powdered medications (5) Multifocal atrial tachycardia: Plan: Continue diltiazem, likely albuterol and adrenergic response from his distress feeding into tachycardia, Tachycardia is brought on by physiological stress (6) Hypothyroidism: Plan: resume levothyroxine. Plan CPAP in evening for Obstructive sleep apnea. Patient in need of rehab placement due to weakness Admission and Anticipated Discharge Date Admission Date: February 18, 2023 Subjective Patient reports no new symptoms. Review of Systems Review of Systems: All systems reviewed & are unremarkable except as noted in HPI & below Physical Exam Physical Exam: Patient lying in bed slightly uprght. Patient in no acute distress, able to speak in full sentences, Coarse rhonchi with coughing prolonged expiratory phase no wheezes Results & Data Results & Data Vital Signs (Past 12 Hours) Vital Signs Temp Pulse Resp BP Pulse Ox O2 Del Method O2 Flow Rate 03/02/23 20:26 36.8 C 94 H 20 128/71 93 High Flow Nasal Cannula 35 03/02/23 19:17 95 H 20 91 High Flow Nasal Cannula 35 03/02/23 15:55 36.3 C L 98 H 20 116/66 91 High Flow Nasal Cannula 03/02/23 15:19 90 24 92 High Flow Nasal Cannula 35 03/02/23 12:11 98 H 22 91 High Flow Nasal Cannula 35 FiO2 03/02/23 20:26 50 03/02/23 19:17 50 03/02/23 15:55 03/02/23 15:19 50 03/02/23 12:11 50 PG Care Time/CCT Total # of Minutes Spent Total Time Spent with Patient: Total time spent is greater than 50% in coordination of care (as documented) at patient's floor/unit and/or counseling patient: Coding Level of Care Code 91213 SUB INP/OBS CARE 2/35MIN Diagnoses Acute hypoxemic respiratory failure J96.01 COVID-19 U07.1 Hypertension I10 COPD exacerbation J44.1 Multifocal atrial tachycardia I47.1 Hypothyroidism E03.9 Hypothyroidism type: unspecified (6) Hypothyroidism Hypothyroidism type: unspecified Qualified Code(s): E03.9 - Hypothyroidism, unspecified
[2023-03-03] MEDS: LEVALBUTEROL 1.25 MG/3 ML NEB NEB SCH ×4 (01:20→19:35)
[2023-03-03] MEDS: LEVOTHYROXINE SODIUM 150 MCG TABLET PO SCH (05:58)
[2023-03-03] MEDS: LINEZOLID 600 MG/300 ML BAG IV SCH ×2 (05:59→20:50)
[2023-03-03] MEDS: HEPARIN SOD 5,000 UNIT/0.5 ML VIAL SQ SCH ×3 (05:59→22:41)
[2023-03-03] MEDS: BUDESONIDE 0.5 MG/2 ML VIAL (PULMICORT) NEB SCH ×2 (07:18→19:34)
[2023-03-03] MEDS: SODIUM CHLOR 7% 4 ML NEB NEB SCH ×2 (07:18→19:34)
[2023-03-03] MEDS: FORMOTEROL 20 MCG/2 ML VIAL NEB SCH ×2 (07:18→19:34)
[2023-03-03] MEDS: PANTOprazole 40 MG TAB PO SCH (08:10)
[2023-03-03] MEDS: SENNA 8.6 MG TAB PO SCH (08:12)
[2023-03-03] MEDS: dilTIAZem HCL 180 MG CAPCR PO SCH (08:12)
[2023-03-03] MEDS: CHOLECALCIFEROL 1,000 UNITS 25 MCG TAB PO SCH (08:13)
[2023-03-03] MEDS: BUMETANIDE 1 MG TAB PO SCH (08:13)
[2023-03-03] MEDS: MUPIROCIN 2% OINT 22 GM TUBE TOP SCH ×2 (08:14→22:42)
[2023-03-03] MEDS: POLYETHYLENE (MIRALAX) 17 GM PACK PO SCH (08:14)
[2023-03-03] MEDS: DICLOFENAC SOD 1% GEL 100 GM TUBE EXT SCH ×4 (08:15→22:42)
[2023-03-03] MEDS: FINASTERIDE 5 MG TAB PO SCH (08:16)
[2023-03-03] MEDS: MULTIVITAMIN TAB PO SCH (08:16)
[2023-03-03] MEDS: CLOTRIMAZOLE 10 MG TROCHE BUCCAL SCH ×5 (08:30→22:43)
--- NOTE | 2023-03-03 09:28 | Pulmonology Progress Note ---
Date of Service March 03, 2023 Assessment & Plan (1) Bronchiectasis with (acute) exacerbation: (2) COPD exacerbation: (3) Pseudomonas aeruginosa infection: (4) Hypoxia: Plan Impression: 87-year-old male with mild sleep disordered breathing and moderate obstructive lung disease (overlap syndrome) with associated bronchiectasis admitted with progressive hypoxemic and hypercarbic respiratory failure. He is status post recent admission for COVID. Patient does have Pseudomonas and bronchiectasis and is likely suffering from an exacerbation of his bronchiectasis. He is clinically improving. His oxygen requirements appear to have plateaued. Recommendations: 1. Bronchiectasis exacerbation: Sputum culture positive for pansensitive Pseudomonas. Day #14 of 14 extended dosing cefepime under the direction of pharmacy. The patient can then resume his nebulized tobramycin 14 days on and 14 days off after the completion of parenteral antibiotics. Has been accepted to [facility] in [place]. Will likely need new PICC placed as he pulled his previous site last night. Antibiotics [facility] be administered [facility] and he does not necessarily need to be in the hospital to complete the course of antibiotics. 2. COPD: Continue budesonide and hypertonic saline. Continue Perforomist and as needed DuoNebs. Completed course of prednisone and will discontinue 3. Hypoxemia: Continue oxygen at night. Continue incentive spirometry and flutter valve. Ambulate patient 3 times daily and out of bed to chair as much as possible during the day. Wean oxygen to maintain oxygen saturations at or above 88% 4. Sleep disordered breathing: Continue CPAP. No one can bring in his home machine so we will continue our machine at night. 5. Pulmonary nodule: Outpatient follow-up will be arranged at discharge. Follow-up CT scan in 3 to 4 months is reasonable. 6. Continue diuretics as tolerated 7. Patient is still thinking over code status after discussion. Patient accepted to [facility] in [place]. Will defer palliative engagement at this time. Thank you for allowing us to participate in the care of this patient. Admission and Anticipated Discharge Date Admission Date: February 18, 2023 Subjective Patient seen and evaluated today. He reports some ongoing dyspnea, but otherwise no changes. Review of Systems Review of Systems: Unchanged from prior Physical Exam Physical Exam: VITAL SIGNS - Vital signs and nursing notes were reviewed. GENERAL - 87-year-old male appearing his stated age who is in no acute distress. Communicates well with provider and answers questions appropriately. MOUTH/OROPHARYNX - Without perioral cyanosis. LUNGS - Slightly tachypneic. Coarse breath sounds appreciated throughout all lung brown. CARDIAC - RRR with S1/S2. No murmur, rubs, or gallops appreciated. ABDOMEN - BS normoactive all four quadrants. No tenderness, palpable masses, or ascites noted. PSYCH - A&Ox3 and cooperates fully with examiner. Pt is very pleasant and interacts well with examiner. Results & Data Results & Data Vital Signs (Past 12 Hours) Vital Signs Temp Pulse Resp BP Pulse Ox O2 Del Method O2 Flow Rate 03/03/23 08:01 Nasal Cannula 35 03/03/23 07:42 36.4 C L 117 H 24 118/68 91 High Flow Nasal Cannula 35 03/03/23 07:24 99 H 22 95 High Flow Nasal Cannula 35 03/03/23 07:09 36.4 C L 93 H 20 114/55 L 92 High Flow Nasal Cannula 35 03/03/23 02:35 98 H 22 90 High Flow Nasal Cannula 35 03/03/23 01:21 99 H 22 91 High Flow Nasal Cannula 35 03/02/23 22:36 100 H 22 93 High Flow Nasal Cannula 35 FiO2 03/03/23 08:01 03/03/23 07:42 50 03/03/23 07:24 60 03/03/23 07:09 03/03/23 02:35 60 03/03/23 01:21 50 03/02/23 22:36 50 PG Care Time/CCT Total # of Minutes Spent Total Time Spent with Patient: Total time spent is greater than 50% in coordination of care (as documented) at patient's floor/unit and/or counseling patient: Coding Level of Care Code 19857 SUB INP/OBS CARE 2MIN Diagnoses Bronchiectasis with (acute) exacerbation J47.1 COPD exacerbation J44.1 Pseudomonas aeruginosa infection A49.8 Hypoxia R09.02
[2023-03-03 10:27] LABS: Basophils # (auto) 0.01 K/uL (0-0.2); Basophils % (auto) 0.1 %; Eosinophils # (auto) 0.11 K/uL (0-0.50); Eosinophils % (auto) 0.9 %; Hematocrit (blood only) 34.9 % (42.0-52.0); Hemoglobin 11.3 g/dl (14.0-18.0); Immature Granulocytes # (auto) 0.16 K/uL (0.01-0.20); Immature Granulocytes % (auto) 1.3 %; Lymphocytes # (auto) 0.64 K/uL (1.2-3.4); Lymphocytes % (auto) 5.3 %; Mean Corpuscular Hemoglobin 25.9 pg (25.0-34.0); Mean Corpuscular Hgb Conc 32.4 g/dL (32.0-36.0); Mean Corpuscular Volume 79.9 fL (80.0-100.0); Mean Platelet Volume 12.6 fL (9.4-12.4); Monocytes # (auto) 1.05 K/uL (0.11-0.59); Monocytes % (auto) 8.6 %; Neutrophils # (auto) 10.21 K/uL (1.40-6.50); Neutrophils % (auto) 83.8 %; Platelet Count 145 K/uL (130-400); RDW Coefficient of Variation 17.7 % (11.5-14.5); RDW Standard Deviation 49.1 fL (36.4-46.3); Red Blood Count 4.37 M/uL (4.70-6.10); White Blood Count 12.18 K/ul (4.8-10.8)
[2023-03-03 10:38] LABS: Albumin Globulin Ratio 0.9 (0.9-2); Albumin Level 2.8 gm/dl (3.4-5.0); BUN Creatinine Ratio 30.5 (10-20); Bilirubin,Total 0.7 mg/dl (0.2-1.0); C Reactive Protein 2.95 mg/dl (0-0.5); Calcium 8.7 mg/dl (8.6-10.3); Creatinine Clr Calc Pharmacy 41.8 ml/min; Est GFR (African American) 56.7 ml/min; Potassium 3.5 mmol/L (3.5-5.1); Total Protein 5.8 gm/dl (6.0-8.3)
--- NOTE | 2023-03-03 11:27 | XRay Report ---
XR chest 1V portable CLINICAL HISTORY: PICC tip placement COMPARISON STUDY: Chest radiograph March 01, 2023. Chest CT March 02, 2023. FINDINGS: The tip of the left PICC projects over the proximal SVC. There is no pneumothorax. There ar e trace bilateral pleural effusions. Multifocal airspace opacities persist. Underlying emphysema is b susan depicted on chest CT. Cardiomegaly is again noted. IMPRESSION: 1. Tip of left PICC projects over the proximal SVC. 2. Multifocal airspace opacities suggestive of pneumonia, similar to prior chest CT. 3. Trace bilateral pleural effusions. 4. Emphysema. ACT 112: Negative or not required by law. Electronically signed by: Conner Villalpando M.D. 03/03/2023 11:26 AM
[2023-03-03] MEDS: Cefepime 2,000 MG Extended Infusion IV SCH ×2 (11:54→22:42)
[2023-03-03] MEDS: TAMSULOSIN HCL 0.4 MG CAP PO SCH (22:41)
--- NOTE | 2023-03-03 23:25 | Hospitalist Progress Note ---
Date of Service March 03, 2023 Assessment & Plan (1) Acute hypoxemic respiratory failure: Plan: Acute hypoxic respiratory failure in a 87 yo male with PMH of COPD and recent COVID 19, treating for MRSA pneumonia and also gram-negative pneumonia Pulmonary medicine feels exacerbation of bronchiectasis with previous history of Pseudomonas, Recommend completing 14 days extended dosing cefuroxime under the direction of pharmacy. The patient can then resume his nebulized tobramycin 28 days on 28 days off in the outpatient setting. Tapering steroids over the next few days and continuing performance and as needed DuoNebs His respiratory status was also impacted by acute exacerbation of his diastolic heart failure and cardiology recommended negative fluid balance. Initially treated with twice daily Bumex now reduced to p.o. once a day CT chest shows L irregular nodular opacity in the inferior aspect of the right upper lobe which measures 2.3 x 1.8 this may be residual infiltrates from previous CT scan from January 27 Oxygen requirement is not improving which is a stong concern. Labs are improving though. Pulmonary discussed with patient and family poor prognosis. will try chest vest. Will continue above treatment, obtained PICC line. Updated on Patient will be treated on linezolid to cover pneumonia. Plan is to transition patient to LTAC. Now on high flow, but down to 15 liters. (2) COVID-19: Plan: Patient was discharged with a recent covid 19 diagnosis. day 11 is 02/22 pt with chronic pulmonary sx now at baseline Patient started on methylprednisolone per pulmonary medicine-> taper to prednsione 02/23/23 (3) Hypertension: Plan: Chronic and stable on diltiazem and Bumex, Bumex changed to p.o. on 02/21 (4) COPD exacerbation: Plan: COPD, concern for multifocal pneumonia, Pulmonary de-escalated to cefepime monotherapy plus tapering steroids nebs ordered. Replace powdered medications (5) Multifocal atrial tachycardia: Plan: Continue diltiazem, likely albuterol and adrenergic response from his distress feeding into tachycardia, Tachycardia is brought on by physiological stress (6) Hypothyroidism: Plan: resume levothyroxine. Plan CPAP in evening for Obstructive sleep apnea. Patient in need of rehab placement due to weakness Admission and Anticipated Discharge Date Admission Date: February 18, 2023 Subjective Patient reports no new symptoms. Review of Systems Review of Systems: All systems reviewed & are unremarkable except as noted in HPI & below Physical Exam Physical Exam: Patient lying in bed slightly uprght. Patient in no acute distress, able to speak in full sentences, Coarse rhonchi with coughing prolonged expiratory phase no wheezes Results & Data Results & Data Vital Signs (Past 12 Hours) Vital Signs Temp Pulse Resp BP Pulse Ox O2 Del Method O2 Flow Rate 03/03/23 21:48 36.6 C 119 H 20 144/67 H 92 Nasal Cannula 15 03/03/23 19:45 High Flow Nasal Cannula 15 03/03/23 19:35 97 H 22 90 Nasal Cannula 15 03/03/23 17:26 92 Nasal Cannula 15 03/03/23 15:12 36.4 C L 89 22 133/79 93 Nasal Cannula 11 03/03/23 14:38 90 8 03/03/23 14:00 75 22 94 Nasal Cannula 9 PG Care Time/CCT Total # of Minutes Spent Total Time Spent with Patient: Total time spent is greater than 50% in coordination of care (as documented) at patient's floor/unit and/or counseling patient: Coding Level of Care Code 52603 SUB INP/OBS CARE 2/35MIN Diagnoses Acute hypoxemic respiratory failure J96.01 COVID-19 U07.1 Hypertension I10 COPD exacerbation J44.1 Multifocal atrial tachycardia I47.1 Hypothyroidism E03.9 Hypothyroidism type: unspecified (6) Hypothyroidism Hypothyroidism type: unspecified Qualified Code(s): E03.9 - Hypothyroidism, unspecified
[2023-03-04] MEDS: LEVALBUTEROL 1.25 MG/3 ML NEB NEB SCH ×4 (00:24→19:10)
[2023-03-04] MEDS: HEPARIN SOD 5,000 UNIT/0.5 ML VIAL SQ SCH ×3 (05:57→21:32)
[2023-03-04] MEDS: LEVOTHYROXINE SODIUM 150 MCG TABLET PO SCH (05:57)
[2023-03-04] MEDS: ALBUT/IPRATROP 3MG/0.5MG NEB 3 ML VIAL NEB PRN (06:54)
[2023-03-04] MEDS: FORMOTEROL 20 MCG/2 ML VIAL NEB SCH ×2 (06:55→19:10)
[2023-03-04] MEDS: SODIUM CHLOR 7% 4 ML NEB NEB SCH ×2 (06:55→19:10)
[2023-03-04] MEDS: BUDESONIDE 0.5 MG/2 ML VIAL (PULMICORT) NEB SCH ×2 (06:55→19:10)
[2023-03-04] MEDS: LINEZOLID 600 MG/300 ML BAG IV SCH ×2 (08:03→18:09)
[2023-03-04] MEDS: CLOTRIMAZOLE 10 MG TROCHE BUCCAL SCH ×5 (08:08→22:44)
[2023-03-04] MEDS: POLYETHYLENE (MIRALAX) 17 GM PACK PO SCH (08:08)
[2023-03-04] MEDS: BUMETANIDE 1 MG TAB PO SCH (08:09)
[2023-03-04] MEDS: MAGNESIUM OXIDE 400 MG TAB PO SCH (08:10)
[2023-03-04] MEDS: SENNA 8.6 MG TAB PO SCH (08:10)
[2023-03-04] MEDS: MULTIVITAMIN TAB PO SCH (08:10)
[2023-03-04] MEDS: PANTOprazole 40 MG TAB PO SCH (08:10)
[2023-03-04] MEDS: CHOLECALCIFEROL 1,000 UNITS 25 MCG TAB PO SCH (08:10)
[2023-03-04] MEDS: FINASTERIDE 5 MG TAB PO SCH (08:10)
[2023-03-04] MEDS: dilTIAZem HCL 180 MG CAPCR PO SCH (08:10)
[2023-03-04] MEDS: DICLOFENAC SOD 1% GEL 100 GM TUBE EXT SCH ×4 (08:11→21:31)
[2023-03-04] MEDS: MUPIROCIN 2% OINT 22 GM TUBE TOP SCH ×2 (10:11→21:31)
[2023-03-04] MEDS: Cefepime 2,000 MG Extended Infusion IV SCH ×2 (10:55→22:44)
--- NOTE | 2023-03-04 16:03 | XRay Report ---
RIGHT SHOULDER 3 VIEWS CLINICAL HISTORY: Right shoulder pain. FINDINGS: 3 portable views of the right shoulder are compared to study dated 07/02/2022. The skeletal structures are osteopenic. There is no radiographic evidence of fracture or dislocation. Degenerativ e change is seen at the glenohumeral and acromioclavicular joints. Mild superior subluxation of the h umeral head suggests chronic rotator cuff injury. The overlying soft tissues are normal as imaged. rspace consolidation is seen at the right lung base. A left-sided central venous catheter is partiall y visualized. IMPRESSION: 1. There is no radiographic evidence of right shoulder fracture or dislocation. 2. Airspace consolidation is again seen in the right lung base. Electronically signed by: Roosevelt Hairston M.D. 03/04/2023 4:02 PM
[2023-03-04] MEDS ORDERED: POTASSIUM CHLORIDE CRTAB 20 MEQ TABCR PO STA (18:44)
[2023-03-04] MEDS ORDERED: BUMETANIDE 2 MG in SYRINGE 0 ML IV ONE (19:15)
[2023-03-04] MEDS: TAMSULOSIN HCL 0.4 MG CAP PO SCH (21:30)
--- NOTE | 2023-03-04 22:55 | Hospitalist Progress Note ---
Date of Service March 04, 2023 Assessment & Plan (1) Acute hypoxemic respiratory failure: Plan: Acute hypoxic respiratory failure in a 87 yo male with PMH of COPD and recent COVID 19, treating for MRSA pneumonia and also gram-negative pneumonia Pulmonary medicine feels exacerbation of bronchiectasis with previous history of Pseudomonas, Recommend completing 14 days extended dosing cefepime under the direction of pharmacy. The patient can then resume his nebulized tobramycin 28 days on 28 days off in the outpatient setting. Tapering steroids over the next few days and continuing performance and as needed DuoNebs His respiratory status was also impacted by acute exacerbation of his diastolic heart failure and cardiology recommended negative fluid balance. Initially treated with twice daily Bumex now reduced to p.o. once a day CT chest shows L irregular nodular opacity in the inferior aspect of the right upper lobe which measures 2.3 x 1.8 this may be residual infiltrates from previous CT scan from January 27 Oxygen requirement iremains high which is a concern. Repeat CT scan shows extensive scarring and infiltrates in lower lung brown bilaterallu. O2 supplementation is higher than the 8 liters from 03/01 but improved from the 35 liters on 03/02. Pulmonary discussed with patient and family poor prognosis. (Please refer to Dr. Wylie's note on 03/01) Informed that intubation will likly not prolong his life, or provide any quality Patient using flutter valve; tried chest vest but states he is not coughing up more. Will continue above treatment, obtained PICC line. Updated on 03/04 Patient will be treated on linezolid to cover pneumonia. Plan is to transition patient to LTAC. Now on high flow, but down to 15 liters. Completed 14 days of cefepime. Will continue linezolid to complete 14 days. May consider a trial of cough assist. Plan is for discharge to an LTAC. Awaiting auth. (2) COVID-19: Plan: Patient was discharged with a recent covid 19 diagnosis. day 11 is 02/22 pt with chronic pulmonary sx now at baseline Patient started on methylprednisolone per pulmonary medicine-> taper to prednsione 02/23/23 (3) Hypertension: Plan: Chronic and stable on diltiazem and Bumex, Bumex changed to p.o. on 02/21 (4) COPD exacerbation: Plan: COPD, concern for multifocal pneumonia, Pulmonary de-escalated to cefepime monotherapy plus tapering steroids nebs ordered. Replace powdered medications (5) Multifocal atrial tachycardia: Plan: Continue diltiazem, likely albuterol and adrenergic response from his distress feeding into tachycardia, Tachycardia is brought on by physiological stress (6) Hypothyroidism: Plan: resume levothyroxine. Plan CPAP in evening for Obstructive sleep apnea. Patient in need of rehab placement due to weakness Admission and Anticipated Discharge Date Admission Date: February 18, 2023 Subjective 87 yo male reports no new symptoms. Patient continues to be short of breath. Patient reorts he has right shoulder pain, but this is chronic. He was concerned about a dislocation. Review of Systems Review of Systems: All systems reviewed & are unremarkable except as noted in HPI & below Physical Exam Physical Exam: Patient sitting in bed slightly uprght. Patient in no acute distress, able to speak in full sentences, Coarse rhonchi with coughing prolonged expiratory phase no wheezes Results & Data Results & Data Vital Signs (Past 12 Hours) Vital Signs Temp Pulse Resp BP Pulse Ox O2 Del Method O2 Flow Rate 03/04/23 19:20 High Flow Nasal Cannula 15 03/04/23 19:36 102 H 20 134/81 92 Nasal Cannula 15 03/04/23 19:10 110 H 24 93 Nasal Cannula 13 03/04/23 14:29 36.3 C L 110 H 22 124/70 91 Nasal Cannula 15 03/04/23 13:05 108 H 24 90 Nasal Cannula 13 PG Care Time/CCT Total # of Minutes Spent Total Time Spent with Patient: Total time spent is greater than 50% in coordination of care (as documented) at patient's floor/unit and/or counseling patient: Coding Level of Care Code 43562 SUB INP/OBS CARE 3/50MIN Diagnoses Acute hypoxemic respiratory failure J96.01 COVID-19 U07.1 Hypertension I10 COPD exacerbation J44.1 Multifocal atrial tachycardia I47.1 Hypothyroidism E03.9 Hypothyroidism type: unspecified (6) Hypothyroidism Hypothyroidism type: unspecified Qualified Code(s): E03.9 - Hypothyroidism, u nspecified
[2023-03-05] MEDS: LEVALBUTEROL 1.25 MG/3 ML NEB NEB SCH ×4 (01:37→19:16)
[2023-03-05] MEDS: LINEZOLID 600 MG/300 ML BAG IV SCH ×2 (06:13→18:08)
[2023-03-05] MEDS: LEVOTHYROXINE SODIUM 150 MCG TABLET PO SCH (06:13)
[2023-03-05] MEDS: CLOTRIMAZOLE 10 MG TROCHE BUCCAL SCH ×4 (06:13→18:10)
[2023-03-05] MEDS: HEPARIN SOD 5,000 UNIT/0.5 ML VIAL SQ SCH ×3 (06:13→20:05)
[2023-03-05] MEDS: SODIUM CHLOR 7% 4 ML NEB NEB SCH ×2 (06:56→19:16)
[2023-03-05] MEDS: BUDESONIDE 0.5 MG/2 ML VIAL (PULMICORT) NEB SCH ×2 (06:56→19:16)
[2023-03-05] MEDS: FORMOTEROL 20 MCG/2 ML VIAL NEB SCH ×2 (06:56→19:16)
[2023-03-05] MEDS: DICLOFENAC SOD 1% GEL 100 GM TUBE EXT SCH ×4 (08:11→20:06)
[2023-03-05] MEDS: MUPIROCIN 2% OINT 22 GM TUBE TOP SCH ×2 (08:11→20:08)
[2023-03-05] MEDS: POLYETHYLENE (MIRALAX) 17 GM PACK PO SCH (08:11)
[2023-03-05] MEDS: BUMETANIDE 1 MG TAB PO SCH (08:12)
[2023-03-05] MEDS: MULTIVITAMIN TAB PO SCH (08:13)
[2023-03-05] MEDS: dilTIAZem HCL 180 MG CAPCR PO SCH (08:13)
[2023-03-05] MEDS: FINASTERIDE 5 MG TAB PO SCH (08:13)
[2023-03-05] MEDS: PANTOprazole 40 MG TAB PO SCH (08:13)
[2023-03-05] MEDS: CHOLECALCIFEROL 1,000 UNITS 25 MCG TAB PO SCH (08:13)
[2023-03-05] MEDS: SENNA 8.6 MG TAB PO SCH (08:14)
[2023-03-05 10:55] LABS: BUN Creatinine Ratio 20.1 (10-20); Calcium 8.8 mg/dl (8.6-10.3); Creatinine Clr Calc Pharmacy 32.4 ml/min; Est GFR (African American) 41.7 ml/min; Phosphorus 4.3 mg/dl (2.5-4.9)
[2023-03-05 11:23] LABS: Potassium 3.6 mmol/L (3.5-5.1)
[2023-03-05] MEDS: ALBUT/IPRATROP 3MG/0.5MG NEB 3 ML VIAL NEB PRN (12:41)
[2023-03-05 16:19] LABS: Cdiff Toxin B Gene (2yr or >) Positive Cdiff Gene (Neg)
[2023-03-05 16:20] LABS: Cdiff Antigen Positive; Cdiff Toxin A+B Negative Cdiff Toxin (Negative)
--- NOTE | 2023-03-05 17:45 | Pulmonology Progress Note ---
Date of Service March 05, 2023 Assessment & Plan (1) Bronchiectasis with (acute) exacerbation: (2) COPD exacerbation: (3) Pseudomonas aeruginosa infection: (4) Hypoxia: Plan Impression: 87-year-old male with mild sleep disordered breathing and moderate obstructive lung disease (overlap syndrome) with associated bronchiectasis admitted with progressive hypoxemic and hypercarbic respiratory failure. He is status post recent admission for COVID. Patient does have Pseudomonas and bronchiectasis and is likely suffering from an exacerbation of his bronchiectasis. He is clinically improving. His oxygen requirements appear to have plateaued. Recommendations: 1. Bronchiectasis exacerbation: Sputum culture positive for pansensitive Pseudomonas. Patient completed cefepime. He is currently on linezolid. Orders placed to start 28 days on and 20 days off of nebulized tobramycin. [facility] Plan is to decrease oxygen requirement and discharged to long-term. 2. COPD: Continue budesonide and hypertonic saline. Continue Perforomist and as needed DuoNebs. Completed course of prednisone and will discontinue 3. Hypoxemia: Continue oxygen at night. Continue incentive spirometry and flutter valve. Ambulate patient 3 times daily and out of bed to chair as much as possible during the day. Wean oxygen to maintain oxygen saturations at or above 88% 4. Sleep disordered breathing: Continue CPAP. Patient refuses our CPAP mac alvino. His is present at bedside and reports that she will bring his home machine in. 5. Pulmonary nodule: Outpatient follow-up will be arranged at discharge. Follow-up CT scan in 3 to 4 months is reasonable. 6. Continue diuretics as tolerated 7. Patient is still thinking over code status after discussion. Will engage palliative care at this point. Thank you for allowing us to participate in the care of this patient. Admission and Anticipated Discharge Date Admission Date: February 18, 2023 Subjective Patient seen and evaluated at bedside. Patient is slightly tachypneic at rest. He states that there is been no real change. He did attempt to get out of bed today, but became too short of breath. Review of Systems Review of Systems: Unchanged from prior Physical Exam Physical Exam: VITAL SIGNS - Vital signs and nursing notes were reviewed. GENERAL - 87-year-old male appearing his stated age who is in no acute distress. Communicates well with provider and answers questions appropriately. MOUTH/OROPHARYNX - Without perioral cyanosis. LUNGS - Slightly tachypneic. Coarse breath sounds appreciated throughout all lung brown. CARDIAC - RRR with S1/S2. No murmur, rubs, or gallops appreciated. PSYCH - A&Ox3 and cooperates fully with examiner. Pt is very pleasant and interacts well with examiner. Results & Data Results & Data Vital Signs (Past 12 Hours) Vital Signs Temp Pulse Resp BP Pulse Ox O2 Del Method O2 Flow Rate 03/05/23 15:00 36.6 C 99 H 20 123/71 93 High Flow Nasal Cannula 15 03/05/23 12:41 90 20 97 Nasal Cannula 14 03/05/23 11:42 36.6 C 96 H 18 136/86 96 High Flow Nasal Cannula 15 03/05/23 08:15 High Flow Nasal Cannula 15 03/05/23 07:29 36.6 C 123 H 20 124/76 90 Nasal Cannula 15 03/05/23 06:57 108 H 22 92 Nasal Cannula 15 PG Care Time/CCT Total # of Minutes Spent Total Time Spent with Patient: Total time spent is greater than 50% in coordination of care (as documented) at patient's floor/unit and/or counseling patient: Coding Level of Care Code 17144 SUB INP/OBS CARE 3/50MIN Diagnoses Bronchiectasis with (acute) exacerbation J47.1 COPD exacerbation J44.1 Pseudomonas aeruginosa infection A49.8 Hypoxia R09.02
--- NOTE | 2023-03-05 19:09 | Hospitalist Progress Note ---
Date of Service March 05, 2023 Assessment & Plan (1) Acute on chronic respiratory failure with hypoxia and hypercapnia: Plan: combination of COVID-19 infection (dx 02/12/23), COPD exacerbation, bronchiectasis exacerbation, recent pseudomonas infection, acute/chronic diastolic CHF, etc. has had progressive respiratory failure due to the above factors. 03/01/23 -- significant worsening in hypoxia, with HFNC requirements rising to 35 L at that time. CTA chest on 03/02 with severe b/l infiltrates. cannot rule out fibrosis development based on 03/02 CTA chest. No PEs seen at that time. completed 14 day course of cefepime for pseudomonas infection. now on zyvox - started 03/02 - to cover for possible MRSA superinfection of lungs. completed dexamethasone course (10 days) earlier in February for COVID-19. has received diuresis but now creatinine rising - thus, hold any further bumex. cont supportive care, HFNC, bronchodilators, zyvox, etc. (2) Pneumonia due to COVID-19 virus: Plan: dx 02/12/23 suspect COVID-19 infection contributed heavily to his worsening respiratory status since earlier this month off airborne precautions (3) C. difficile diarrhea: Plan: although toxin negative on testing today he has had COPIOUS antibiotics in January and February for various infections he has had numerous stools today, poor appetite, etc. reasonable to treat start vancomycin 125mg QID x 10 days contract precautions add lactinex daily hold any stool agents (senna, etc) (4) COPD with exacerbation: Plan: appreciate pulmonary recommendations cont supportive care see #1 above given the extent of his wheezing/rhonchi consider resumption of steroids (5) Bronchiectasis with (acute) exacerbation: Plan: 2nd to pseudomonas see above placed back on tobramycin nebs BID starting today as ordered by pulmonary (6) Acute kidney injury: Plan: 2nd to over-diuresis -- suspected hold bumex BMP am cespedes in place (7) Acute on chronic diastolic (congestive) heart failure: Plan: in face of diuresis has developed ALFONSO hold further bumex (8) Hypothyroidism: Plan: most recent TSH wnl cont synthroid (9) Hypertension: Plan: reasonable control (10) Multifocal atrial tachycardia: Plan: cont CCB (11) Chronic indwelling Cespedes catheter: (12) Pseudomonas aeruginosa infection: Plan: see above (13) BPH (benign prostatic hyperplasia): Plan: finasteride flomax coy (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: Plan: contact precautions treating for active MRSA infection of lungs with zyvox (this is presumed rather than confirmed); zyvox added due to acute worsening of his pulmonary status on 03/01 (15) DVT prophylaxis: Plan: heparin SC Plan patient was being prepped to go to LTACH in [place] [facility] was requested by his insurance co I spoke with bilingual medical assistant at insurance co - patient NOT approved for LTACH I spoke with social work after LTACH was denied; asked social work to appeal this decision family aware of LTACH denial care d/w [facility] pulmonary patient's prognosis is guarded may need to consider palliative care consultation if any worsening Admission and Anticipated Discharge Date Admission Date: February 18, 2023 Subjective patient has developed multiple episodes of diarrhea today c diff sent --> gene+,toxin negative stool is quite loose he has little to no appetite he continues with cough, wheezing, dyspnea at rest he is quite tired at bedside during the visit Review of Systems Review of Systems: gen - very tired, fatigued; no fever cv - no chest pain pulm - cough, dyspnea, wheezing GI - no abd pain or vomiting Physical Exam Physical Exam: gen - looks fragile, quite ill, fatigued, tachypneic mouth - MM slightly dry, lips dry & irritated neck - no JVD heart - irregular, tachy, s1 s2 lungs - diffuse wheezing/rhonchi; crackles b/l bases; tachypnea, mild subcostal retractions abd - soft NT ND BS+ ext - pulses 1-2+ b/l; no edema; TEDS in place psych - awake, alert, oriented x 3 skin - ecchymoses on arms Results & Data Results & Data Vital Signs (Past 12 Hours) Vital Signs Temp Pulse Resp BP Pulse Ox O2 Del Method O2 Flow Rate 03/05/23 15:00 36.6 C 99 H 20 123/71 93 High Flow Nasal Cannula 15 03/05/23 12:41 90 20 97 Nasal Cannula 14 03/05/23 11:42 36.6 C 96 H 18 136/86 96 High Flow Nasal Cannula 15 03/05/23 08:15 High Flow Nasal Cannula 15 03/05/23 07:29 36.6 C 123 H 20 124/76 90 Nasal Cannula 15 Laboratory Results Laboratory Results - last 48 hr 03/05/23 03/05/23 10:06 14:10 WBC RBC Hgb Hct MCV MCH MCHC RDW Std Deviation RDW Coeff of Jordan Plt Count MPV Sodium 134 L Potassium 3.6 Chloride 94 L Carbon Dioxide 33 H Anion Gap 7 BUN 34 H Creatinine 1.69 H Est Cr Clr Drug Dosing 32.4 Est GFR ( Amer) 41.7 Est GFR (Non-Af Amer) 36.0 BUN/Creatinine Ratio 20.1 H Glucose 112 H Calcium 8.8 Phosphorus 4.3 Magnesium 2.0 Stl C. diff Tox B Gene Positive Cdiff Gene H Stl C.difficile Tox A&B Negative Cdiff Toxin PG Care Time/CCT Total # of Minutes Spent Total Time Spent with Patient: Total time spent is greater than 50% in coordination of care (as documented) at patient's floor/unit and/or counseling patient: Coding Level of Care Code 81449 SUB INP/OBS CARE 3/50MIN Diagnoses Acute on chronic respiratory failure with hypoxia and hypercapnia J96.21; J96.22 Pneumonia due to COVID-19 virus U07.1; J12.82 C. difficile diarrhea A04.72 COPD with exacerbation J44.1 Bronchiectasis with (acute) exacerbation J47.1 Acute kidney injury N17.9 Acute on chronic diastolic (congestive) heart failure I50.33 Hypothyroidism E03.9 Hypothyroidism type: unspecified Hypertension I10 Multifocal atrial tachycardia I47.1 Chronic indwelling Cespedes catheter Z97.8 Pseudomonas aeruginosa infection A49.8 BPH (benign prostatic hyperplasia) N40.0 MRSA carrier Z22.322 DVT prophylaxis Z29.9 (8) Hypothyroidism Hypothyroidism type: unspecified Qualified Code(s): E03.9 - Hypothyroidism, unspecified
[2023-03-05] MEDS: ADVANCED PROBIOTIC 1250 MG CAPSULE PO SCH (19:57)
[2023-03-05] MEDS: RASPBERRY SYRUP 5 ML UDP PO SCH (19:58)
[2023-03-05] MEDS: VANCOMYCIN HCL 125 MG/2.5ML SOLN PO SCH (19:58)
[2023-03-05] MEDS: TOBRAMYCIN SULFATE VIAL INH SCH ×2 (19:59→20:52)
[2023-03-05] MEDS: TAMSULOSIN HCL 0.4 MG CAP PO SCH (20:05)
[2023-03-06] MEDS: VANCOMYCIN HCL 125 MG/2.5ML SOLN PO SCH ×5 (00:08→23:30)
[2023-03-06] MEDS: CLOTRIMAZOLE 10 MG TROCHE BUCCAL SCH ×5 (00:08→18:46)
[2023-03-06] MEDS: RASPBERRY SYRUP 5 ML UDP PO SCH ×5 (00:08→23:30)
[2023-03-06] MEDS: LEVALBUTEROL 1.25 MG/3 ML NEB NEB SCH ×4 (00:15→19:21)
[2023-03-06] MEDS: HEPARIN SOD 5,000 UNIT/0.5 ML VIAL SQ SCH ×3 (06:05→20:09)
[2023-03-06] MEDS: LEVOTHYROXINE SODIUM 150 MCG TABLET PO SCH (06:06)
[2023-03-06] MEDS: LINEZOLID 600 MG/300 ML BAG IV SCH ×2 (06:35→20:00)
[2023-03-06] MEDS: FORMOTEROL 20 MCG/2 ML VIAL NEB SCH ×2 (07:03→19:20)
[2023-03-06] MEDS: BUDESONIDE 0.5 MG/2 ML VIAL (PULMICORT) NEB SCH ×2 (07:03→19:21)
[2023-03-06] MEDS: SODIUM CHLOR 7% 4 ML NEB NEB SCH ×2 (07:13→19:20)
[2023-03-06] MEDS: TOBRAMYCIN SULFATE VIAL INH SCH ×2 (07:23→19:42)
[2023-03-06 07:32] LABS: Hematocrit (blood only) 34.8 % (42.0-52.0); Hemoglobin 11.2 g/dl (14.0-18.0); Mean Corpuscular Hemoglobin 25.8 pg (25.0-34.0); Mean Corpuscular Hgb Conc 32.2 g/dL (32.0-36.0); Mean Corpuscular Volume 80.2 fL (80.0-100.0); Mean Platelet Volume 11.8 fL (9.4-12.4); Platelet Count 144 K/uL (130-400); RDW Coefficient of Variation 17.7 % (11.5-14.5); RDW Standard Deviation 50.8 fL (36.4-46.3); Red Blood Count 4.34 M/uL (4.70-6.10); White Blood Count 9.96 K/ul (4.8-10.8)
[2023-03-06 07:44] LABS: BUN Creatinine Ratio 19.8 (10-20); Calcium 8.4 mg/dl (8.6-10.3); Creatinine Clr Calc Pharmacy 28.5 ml/min; Est GFR (African American) 35.7 ml/min; Est GFR (Non-African American) 30.8 ml/min; Potassium 3.5 mmol/L (3.5-5.1)
[2023-03-06] MEDS: dilTIAZem HCL 180 MG CAPCR PO SCH (09:01)
[2023-03-06] MEDS: MULTIVITAMIN TAB PO SCH (09:01)
[2023-03-06] MEDS: ADVANCED PROBIOTIC 1250 MG CAPSULE PO SCH (09:02)
[2023-03-06] MEDS: BUMETANIDE 1 MG TAB PO SCH (09:02)
[2023-03-06] MEDS: SENNA 8.6 MG TAB PO SCH (09:02)
[2023-03-06] MEDS: MAGNESIUM OXIDE 400 MG TAB PO SCH (09:03)
[2023-03-06] MEDS: PANTOprazole 40 MG TAB PO SCH (09:03)
[2023-03-06] MEDS: DICLOFENAC SOD 1% GEL 100 GM TUBE EXT SCH ×4 (09:05→20:07)
[2023-03-06] MEDS: CHOLECALCIFEROL 1,000 UNITS 25 MCG TAB PO SCH (09:07)
[2023-03-06] MEDS: MUPIROCIN 2% OINT 22 GM TUBE TOP SCH ×2 (09:07→20:07)
[2023-03-06] MEDS: FINASTERIDE 5 MG TAB PO SCH (09:08)
--- NOTE | 2023-03-06 11:13 | Palliative Care Consultation ---
Date of Consultation March 06, 2023 Assessment & Plan (1) Palliative care by specialist: Met with pt/family. Provided overview of Palliative Medicine, a subspecialty that provides specialized medical care for people living with a serious illness by offering a focus on quality of life. Palliative Medicine is often conflated with hospice: I advised patient/family that Palliative and hospice can be partners but we are not the same. It is important to understand the difference so that we may be informed, and not afraid. Palliative Medicine works to improve QOL through reduction of symptom burden/more control over their illness, for both the patient and family. Palliative medicine clinicians are board certified, specially-trained and another member of the patient's medical care team. We often provide an extra layer of support because our care is based on the needs of the patient, not the prognosis; as such, it's appropriate at any age/advancing stage of a serious illness and can be provided along with curative treatment. Palliative Medicine clinicians are also trained in advanced communication methodologies, to facilitate complex discussions about advanced illness planning, which are needed to help assure that the treatment choices match the patient's goals, aka delivering Goal Concordant care. Finally, we discussed that hospice is a visiting nurse service that focuses on care delivered at the very end of life for patients with terminal illness, with life expectancy less than 6 month. (2) Advanced care planning/counseling discussion: I met with Mr Wesley face to face at bedside for 45min and also called his by phone x 30min for total ACP time of 75min. We reviewed that all chronic/progressive disease has a declining trajectory over time where facets of patient self-identity and independence are lost. Every acute event leads to a further decline, resulting- many times, in a new baseline. Advised that the greatest priority is to determine what matters most to pt, then family and to develop a plan of care that is aligned with those priorities. We reviewed the nature of COPD: the ATS and ERS define COPD as a preventable and treatable disease state characterized by airflow limitation that is not fully reversible. The airflow limitation is usually progressive and associated with a chronic inflammatory response of the lungs to noxious particles or gases. COPD is incurable and will worsen over time. Sometimes when patients stop smoking, the progression will slow down, but all COPD over time will get worse. Medications become less effective and do not work as well; in general these patients experience a significant decline in QOL. Patients with COPD constitute a large group of symptomatic patients with a common, chronic, and generally progressive respiratory disorder. Recent studies indicate that patients in this group, on the whole, receive less palliative care in their terminal phase than patients with lung cancer. We discussed that Palliative care can begin when a patient becomes symptomatic and is usually concurrent with restorative and life- prolonging care. Palliative care is titrated, analogous to curative/restorative care, to meet the needs of the patient and family in accord with their preferences. We will help manage their symptoms and assist with goals of care discussions. We spoke about his adv lung issues, infections, growing frailty,rising O2 needs and code status. He understands he has an end stage lung disease and things are not as fixable as perhaps they once were; we reviewed CPR survival: Only about 10% of patients who have [id number] sudden cardiac arrest survive to hospital discharge, with many survivors having neurologic impairment. This rate is even lower among patients with serious coexisting conditions, ie chance of survival to hospital discharge for in-hospital CPR in older people is low to moderate (15%) and decreases with age, comorbidities, performance status and frailty: for pts > 70 yo, more than half of the patients who initially survived resuscitation in the hospital before hospital discharge. The pooled survival to discharge after in-hospital CPR was 18% for patients between 70 and 79 years old, 15% for patients between 80 and 89 years old and 11% for patients of 90 years and older. (Ferny HERNÁNDEZ, Perico LJ, Nils F, et al. Trends in short- and long-term survival among knh-si-[id number] cardiac arrest patients alive at hospital arrival. Circulation 2014;130:6447-2326. AND Susan Amaya, Demetria T, Rosalia R, et al. Performance of clinical risk scores to predict mortality and neurological outcome in cardiac arrest patients. Resuscitation 2019;136:21-29.) After above discussion and review of the likely scenarious for CPR related outcomes in the context of his very advanced lung failure, he agreed to DNR/DNI, wants to go home with hospice if rehab isn't an option/he isn't getting better/time is running out. He understands that his O2 currently cannot be done at home BUT if it comes down over the weekend (below 10lpm [place]) we can review home with hospice. is in agreement. I am teaching next week but I provided her with my contact info and told her I am happy to remain available by phone for additional questions/family meetings which I can arrange by Zoom if her children desire. It would just have to be done around my teaching schedule for the week. She was thankful for this and also in agreement for the plan as outlined above. I told both of them he may have an acute/sudden decline and they both desire immediate move to comfort care if that happens while he is here; for the weekend, they want to try the approach of treat what's treatable/fix what's fixable to see if we can get to where home with hospice may be feasible. We discussed the goals of hospice as a patient service and the goals of care; we discussed EOL trajectories and transitions lloyd the emotional impact of realizing mortality as a concrete reality from prior abstract considerations. Pt was reassured that no matter where they are along this trajectory, they are not a lone - their medical team will remain by their side through their journey. Discussed the pros/cons of accepting help when especially weakened and distressed by pain-which would also help provide relief/decrease caregiver burden/strain. I provided education about the hospice benefit: an interdisciplinary program offered by nurses, nurses aides, social workers, chaplains and a director medical writing for patients with a terminal condition and a life expectancy of less than 6 months. This is covered by Medicare at 100%/no out of pocket expense to patient and all meds/supplies needed by patient for the reason they are on hospice are paid for/covered by hospice. The goal is assure quality of life of the patient in their home setting (home, penitentiary, inpatient hospice sett ing) by providing symptoms management, psychosocial and spiritual support. However, they cannot offer 24 hours care and if the family is unable to provide that care, they will have to consider personal care with out of pocket cost vs. penitentiary placement. We discussed the goals of hospice as a patient service and the goals of care; we discussed EOL trajectories and transitions lloyd the emotional impact of realizing mortality as a concrete reality from prior abstract considerations. Pt was reassured that no matter where they are along this trajectory, they are not alone - their medical team will remain by their side through their journey. Discussed the pros/cons of accepting help when especially weakened and distressed by pain-which would also help provide relief/decrease caregiver burden/strain. Also briefly reviewed that dying patients fear dyspnea and pain, therefore, symptom control is one cornerstone of pulmonary palliative care. Dyspnea is a prominent symptom of the patient with advanced respiratory disease of any cause: nearly all patients with COPD had dyspnea during the last 3 days of their lives. Providers routinely care for patients with chronic or advanced respiratory diseases and critical illnesses. The ATS recognizes: the growing importance and complexity of palliative care for patients with life-threatening and life-limiting diseases and disorders and the need for improving professional competence and teamwork in providing such care. The statement strongly endorses the concept that palliative care should be available to patients at all stages of illness and should be individualized based on the needs and preferences of the patient and the patients family. Clinicians should consult with palliative care specialists as appropriate for managing palliative care situations beyond the clinicians level of competence. (ATS Clinical Policy Statement: Palliative Care for Patients with Respiratory Diseases and Critical Illnesses; Miko Rodriguez, et al., for the [employer], the [employer], the [employer], and the Respiratory Society* Diagnosis and Management of Stable Chronic Obstructive Pulmonary Disease: A Clinical Practice Guideline Update from the [employer], [employer], [employer], and Respiratory Society . [employer]. 2011;155:179-191.) (3) Discussion about advance care planning held with family member: see #2 above (4) Dyspnea and respiratory abnormalities: (5) (HFpEF) heart failure with preserved ejection fraction: (6) Pneumonia: Laterality: right Lung location: unspecified part of lung Pneumonia type: due to unspecified organism Qualified Code(s): J18.9 - Pneumonia, unspecified organism (7) COPD exacerbation: (8) Bronchiectasis with (acute) exacerbation: (9) Acute on chronic respiratory failure with hypoxia and hypercapnia: (10) Acute on chronic diastolic (congestive) heart failure: (11) C. difficile diarrhea: Plan * Patient and are in agreement and hoping for home with hospice if Oxygen will allow * Agreed to see how this weekend goes: if he worsens acutely will move to comfort care * He agrees to no code, see discussion above * He and are aware if O2 needs escalate he may not be able to make it home - can have comfort care +/- ?GIP here in house Thank you for allowing us to participate in the ongoing care of this patient. Please don't hesitate to call or page with any additional concerns. Dr. Christie Caraballo DNP Director, Palliative Care History of Present Illness Reason for Consultation: goals of care, end of life decision making Attending Physician: Uday Kong MD History of Present Illness 87-year-old male with mild sleep disordered breathing and moderate obstructive lung disease (overlap syndrome) with associated bronchiectasis admitted with progressive hypoxemic and hypercarbic respiratory failure. He is status post recent admission for COVID. Patient has Pseudomonas and bronchiectasis, likely acute exacerbation of his bronchiectasis. He is now clinically improving. His oxygen requirements appear to have plateaued. On 03/01/23, Dr Burt noted the following: "I had a long and extensive discussion with the patient and with all of his family members at bedside. Some of his daughters are nurses so they have some medical knowledge. We discussed the patient has end-stage lung disease with both hypoxemic and hypercarbic respiratory failure. Unfortunately this is not likely to be reversible given his underlying structural lung disease. I discussed with the patient with his family in attendance that his ultimate demise will likely be as a result of a respiratory issue and having a discussion with his family members present to decide what that looks like would be entirely appropriate at this point in time. I think if the patient were to develop progressive respiratory failure requiring intubation mechanical ventilation it would be unlikely that we would improve his quantity or quality of life with mechanical ventilation and I would take him out of the pictures for his decision-making processes. I encouraged him to have discussions with his family and to try and make some decisions regarding advanced directives. In addition I advised the patient that at some point or efforts to try and optimize his pulmonary status will ultimately be unsuccessful at that point time I would favor transition to a palliative approach. We discussed symptom management for dyspnea and cough and I advised the patient that these medications can be highly effective in alleviating symptoms. He is taken it under advisement and will discuss with his family." Allergies Allergy/AdvReac Type Severity Reaction Status Date / Time clarithromycin Allergy Intermediate RASH Verified 02/18/23 15:22 Home Medications Medication Instructions Recorded Confirmed Type magnesium 250 mg tablet 250 mg PO [id number] 08/02/18 02/18/23 History cholecalciferol (vitamin D3) 25 1,000 units PO QAM 05/30/19 02/18/23 History mcg (1,000 unit) tablet multivitamin 1 tab PO QAM 09/04/20 02/18/23 History promethazine-DM 6.25 mg-15 mg/5 mL 5 ml PO Q6H PRN cough #473 mL 09/24/21 02/18/23 Rx oral syrup levothyroxine 150 mcg tablet 150 mcg PO QAM #90 tabs 02/03/22 02/18/23 Rx diltiazem HCl 180 mg capsule,24 180 mg PO QAM 90 days #90 caps 04/22/22 02/18/23 Rx hr,extended release (Tiazac) fluticasone fur. 100 mcg-umeclid 1 inh inhalation QAM #3 Inhalers 08/26/22 02/18/23 Rx 62.5 mcg-vilant 25 mcg inhalat.powder (Trelegy Ellipta) albuterol sulfate 90 mcg/actuation 2 puff inhalation Q6H #8.5 grams 10/17/22 02/18/23 Rx aerosol inhaler (Ventolin HFA) ipratropium 0.5 mg-albuterol 3 mg 3 ml NEB Q6H PRN 10/17/22 02/18/23 Rx (2.5 mg base)/3 mL nebulization cough/wheeze/dyspnea #1 box soln diclofenac sodium 1 % topical gel 2 g topical QID 10/23/22 02/18/23 History omeprazole 40 mg capsule,delayed 40 mg PO DAILY 11/05/22 02/18/23 History release mupirocin 2 % topical ointment 1 applic topical BID #22 grams 11/10/22 02/18/23 Rx oxycodone 5 mg tablet 2.5 mg PO Q4H PRN Pain #30 tabs 11/20/22 02/18/23 Rx potassium chloride 20 mEq 20 meq PO DAILY #72 tabs 12/12/22 02/18/23 Rx tablet,extended release(part/cryst) Oxygen Home 12/31/22 02/18/23 History bumetanide 2 mg tablet 2 mg PO BID 12/31/22 02/18/23 History sennosides 8.6 mg tablet (Senokot) 8.6 mg PO QAM 12/31/22 02/18/23 History sodium chloride 3 % for 4 ml inhalation BID #120 mL 01/02/23 02/18/23 Rx nebulization ciclopirox 8 % topical solution 1 applic topical DAILY #6.6 mL 01/15/23 02/18/23 Rx finasteride 5 mg tablet 5 mg PO DAILY #30 tabs 01/21/23 02/18/23 Rx tobramycin 300 mg/5 mL in 0.225 % 300 mg (5 mL) inhalation BID 28 02/02/23 02/18/23 Rx sodium chloride for nebulization days #280 mL (Josue) acetaminophen 325 mg tablet 650 mg PO Q6H PRN FEVER/PAIN 02/11/23 02/18/23 History (Tylenol) polyethylene glycol 3350 17 gram 17 g PO DAILY PRN Constipation 02/11/23 02/18/23 History oral powder packet (Miralax) tamsulosin 0.4 mg capsule 0.4 mg PO HS 02/11/23 02/18/23 History dexamethasone 6 mg tablet 6 mg PO DAILY #7 tabs 02/14/23 02/18/23 Rx Patient History Medical History (Updated 03/06/23 @ 13:02 by Christie Caraballo, AUNG) Acute and chronic respiratory failure Acute on chronic diastolic (congestive) heart failure Acute on chronic kidney failure Advanced care planning/counseling discussion Avulsion injury of right elbow region Back problem BPH (benign prostatic hyperplasia) Bronchiectasis with (acute) exacerbation Candidal diaper rash Cellulitis of both lower extremities Cellulitis of left leg Cellulitis of left lower extremity CHI (closed head injury) Chronic obstructive pulmonary disease Chronic respiratory failure with hypoxia Closed hip fracture Contusion of elbow Contusion of face COPD (chronic obstructive pulmonary disease) Discussion about advance care planning held with family member Dyspnea and respiratory abnormalities Early satiety Elevated troponin Fluid retention in legs GERD (gastroesophageal reflux disease) Hematoma of right lower extremity History of bronchitis Hypernatremia Hypertension Hypothyroidism Left lumbar radiculopathy Leg length discrepancy Livedo reticularis Lumbar spinal stenosis Lymphedema MRSA (methicillin resistant Staphylococcus aureus) Multifocal pneumonia On home oxygen therapy 02 2LPM AT Osteoarthritis Palliative care by specialist Personal history of MRSA (methicillin resistant Staphylococcus aureus) Pulmonary nodule Sepsis Skin tear Sleep apnea cpap Spinal stenosis Syncope Urethral stricture Vitamin D deficiency Wheezing Surgical History History of cardiac cath 12/2019 - [place] - increased edema - no stents/angioplasty History of cholecystectomy History of colonoscopy History of herniorrhaphy left inguinal History of partial knee replacement left History of tonsillectomy History of tooth extraction Hx of surgical procedure LEFT FEMUR FX WITH REPAIR Family History Mother Cerebral atherosclerosis Father Diverticulosis Other No significant family history Denies family history of Ovarian cancer Prostate cancer Myocardial infarction Breast cancer Colorectal cancer Social History Smoking Status: Former smoker Tobacco Type: Cigarettes Age Started Using Tobacco: 22; packs per day: 1; Cigarettes Per Day: 20; Second Hand Exposure: No; Do You Dip or Chew Tobacco: No; Hx Alcohol Use: No Hx Substance Use: No Preferred Language: Faroese Communication Ability: Effective Visual Impairment: No Limitations Hearing Ability: Normal Asphalt Patcher Required: No Beliefs That Will Affect Care: Church marital status: Current Living Situation: Spouse current occupational status: retired Feels Safe at Home: Yes Dental Care, Regularly: No Physical Activity Frequency: 1-2 Times per Week Seatbelt Use: always Sunscreen Use: Yes Assistive Devices: Oxygen - at Night and Walker Review of Systems Constitutional: + body aches, + fatigue, + malaise, + weakness, + anorexia, + weight loss and + daytime sleepiness Eyes: + corrective lenses Ear, Nose, Mouth, Throat: + hearing loss, + nasal congestion, + post nasal drip, + snoring and + hoarseness Respiratory: + cough, + chest congestion, + change in sputum, + dyspnea, + dyspnea on exertion, + snoring, + stopping breathing during sleep (known PRISCILA and has trouble tolerating PAP) and + sputum production Cardiovascular: + dyspnea, + dyspnea on exertion, + orthopnea, + lightheadedness and + edema Gastrointestinal: + bloating, + heartburn and + diarrhea/loose stools Musculoskeletal: + back pain, + stiffness, + myalgia, + muscle weakness and + muscle atrophy Neurologic: + unsteadiness and + generalized weakness Psychiatric: + depression, + change in appetite, + anxiety and + difficulty concentrating Endocrine: + fatigue Hematologic / Lymphatic: + easy bruising Physical Exam Constitutional: + acute distress, + ill appearing, + frail appearing, + diaphoretic and + underweight Eyes: PERRL, conjunctivae normal, anicteric sclerae ENMT: Nose: + dry nasal mucous membranes Mouth: + poor dentition Throat: uvula midline Neck: normal visual inspection and trachea midline Thyroid: normal thyroid Respiratory: + respiratory distress, + labored breathing, + uses accessory muscles, + cough and + pursed lip breathing Auscultation: + diminished lung sounds, + rales and + rhonchi Cardiovascular: Rate/Rhythm: + tachycardic Gastrointestinal (Abdomen): Inspection/Auscultation: + abdomen distended and + high-pitched sounds Percussion/Palpation: + abdomen tender Musculoskeletal: generalized weakness Skin: pale, cool Neurologic: AAOx3, sometimes slow to respond/breathing effort and loss of focus/cannot recall words Psychiatric: AAOx3, insight and understanding intact Results & Data Vital Signs (Past 12 Hours) Vital Signs Temp Pulse Resp BP Pulse Ox O2 Del Method O2 Flow Rate 03/06/23 08:25 36.7 C 89 20 116/75 91 High Flow Nasal Cannula 13 03/06/23 07:03 111 H 18 94 Nasal Cannula 11 03/06/23 00:16 103 H 98 Nasal Cannula 11 Laboratory Results data reviewed Diagnostic Findings data reviewed PG Care Time/CCT Total # of Minutes Spent Total Time Spent: 120 Total Time Spent with Patient: Total time spent is greater than 50% in coordination of care (as documented) at patient's floor/unit and/or counseling patient: I spent 120 minutes overall addressing this case: 25 in medical data review/discussion with referring provider(s) and/or preparation for the visit, d/w teams, nursing, chart review, etc 20 in direct interaction with the patient 75 Advance Care Planning/Goals of Care discussions as detailed above in note (must be >16min) 15 in subsequent review and synthesis of assessment and plan 25 in communicating with other providers regarding the patient's case: primary team, pulmonary, care mgt, nursing Prolonged Care Time Prolonged Care Time: Yes Advanced Care Planning [id number] Advanced Care Planning 30 Min 21720 Advanced Care Planning Additional 30 [place] [address] IN/OBS CONSULT LVL 5,80M Patient Type New History Comprehensive Exam Comprehensive Medical Decision Making High Complexity Diagnoses Palliative care by specialist Z51.5 Advanced care planning/counseling discussion Z71.89 Discussion about advance care planning held with family member Z71.0 Dyspnea and respiratory abnormalities R06.00; R06.89 (HFpEF) heart failure with preserved ejection fraction I50.30 Pneumonia J18.9 Laterality: right Lung location: unspecified part of lung Pneumonia type: due to unspecified organism COPD exacerbation J44.1 Bronchiectasis with (acute) exacerbation J47.1 Acute on chronic respiratory failure with hypoxia and hypercapnia J96.21; J96.22 Acute on chronic diastolic (congestive) heart failure I50.33 C. difficile diarrhea A04.72 Additional Codes Advanced Care Planning - 74097 Advanced Care Planning 30 Min: 27818 Advanced Care Planning 30 Min ([id number]) Advanced Care Planning - 24737 Advanced Care Planning Additional 30 Min: 38858 Advanced Care Planning Additional 30 Min ([id number]) Prolonged Care Time - Prolonged Care Time: Yes ([id number])
[2023-03-06] MEDS: TAMSULOSIN HCL 0.4 MG CAP PO SCH (20:09)
--- NOTE | 2023-03-06 20:10 | Hospitalist Progress Note ---
Date of Service March 06, 2023 Assessment & Plan (1) Acute on chronic respiratory failure with hypoxia and hypercapnia: Plan: combination of COVID-19 infection (dx 02/12/23), COPD exacerbation, bronchiectasis exacerbation, recent pseudomonas infection, acute/chronic diastolic CHF, etc. has had progressive respiratory failure due to the above factors. 03/01/23 -- significant worsening in hypoxia, with HFNC requirements rising to 35 L at that time. CTA chest on 03/02 with severe b/l infiltrates. cannot rule out fibrosis development based on 03/02 CTA chest. No PEs seen at that time. completed 14 day course of cefepime for pseudomonas infection. now on zyvox - started 03/02 - to cover for possible MRSA superinfection of lungs. completed dexamethasone course (10 days) earlier in February for COVID-19. has received diuresis but now creatinine rising - thus, hold any further bumex. cont supportive care, HFNC, bronchodilators, zyvox, etc. strongly consider re-institution of steroid therapy. 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 consider repeat course of steroids (3) C. difficile diarrhea: Plan: although toxin negative on testing he has had COPIOUS antibiotics in January and February for various infections he has had numerous stools, poor appetite, etc. reasonable to treat day #2 of vancomycin 125mg QID x 10 days contract precautions lactinex daily hold any stool agents (senna, etc) (4) COPD with exacerbation: Plan: appreciate pulmonary recommendations cont supportive care see #1 above given the extent of his wheezing/rhonchi consider resumption of steroids (5) Bronchiectasis with (acute) exacerbation: Plan: 2nd to pseudomonas see above placed back on tobramycin nebs BID (6) Acute kidney injury: Plan: 2nd to over-diuresis -- suspected hold bumex BMP am cespedes in place (7) Acute on chronic diastolic (congestive) heart failure: Plan: in face of diuresis has developed ALFONSO hold further bumex (8) Hypothyroidism: Plan: most recent TSH wnl cont synthroid (9) Hypertension: (10) Multifocal atrial tachycardia: Plan: cont CCB (11) Chronic indwelling Cespedes catheter: (12) Pseudomonas aeruginosa infection: Plan: see above (13) BPH (benign prostatic hyperplasia): Plan: finasteride flomax cespedes (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: Plan: contact precautions treating for active MRSA infection of lungs with zyvox (this is presumed rather than confirmed); zyvox added due to acute worsening of his pulmonary status on 03/01 (15) DVT prophylaxis: Plan: heparin SC Plan right arm weakness/heaviness - I believe this is due to his chronic right sh oulder rotator cuff arthropathy cont renetta could consider CT head but suspect it would be negative for CVA doubt he could tolerate an MRI brain thus defer right great toe inflammation - suspect mild cellulitis - zyvox should cover extensive update given to pt's family today expressed my concerns about his lack of progress and his failure to thrive told them I would likely have a better sense of what trajectory we are on come Thursday into Thursday prognosis is very poor appreciate palliative care consultation yesterday Admission and Anticipated Discharge Date Admission Date: February 18, 2023 Subjective diarrhea is a bit better today - less frequent still next to no appetite ongoing cough ongoing dyspnea with minimal activity (moving in the bed, eating, etc makes breathing worse) c/o mild right great toe pain no pain other locations numerous family at bedside including his sons, , daughter in law, etc multiple questions answered regarding plan of care, prognosis, etc he apparently told his family today he "wants to keep going" and not give up Review of Systems Review of Systems: gen - extreme fatigue, weakness, anorexia cv - no chest pain pulm - cough, congestion, wheezing, dyspnea GI - no abd pain or vomiting/nausea - cespedes remains in place musculo/neuro - right arm feels "heavy" for several days Physical Exam Physical Exam: gen - looks fragile, quite ill, fatigued, tired, mild tachypnea mouth - MM slightly dry, lips dry & irritated, oral mucosa irritated neck - no JVD heart - irregular, tachy, s1 s2, no obvious murmur lungs - diffuse wheezing/rhonchi; crackles b/l bases; tachypnea, mild subcostal retractions abd - soft NT ND BS+ ext - pulses 1-2+ b/l; no edema; TEDS in place psych - awake, alert, oriented x 3 skin - ecchymoses on arms - extensive musculo - right great toe with erythema on distal tuft; tender to touch; right first MTP joint without synovitis; right shoulder - periarticular muscle wasting; tender to palpation subacromial region neuro - handgrip 5/5 b/l; no pronator drift; mild weakness right shoulder with active ROM Results & Data Results & Data Vital Signs (Past 12 Hours) Vital Signs Temp Pulse Resp BP Pulse Ox O2 Del Method O2 Flow Rate 03/06/23 19:21 131 H 24 89 L Room Air 15 03/06/23 14:45 36.3 C L 98 H 20 127/78 93 High Flow Nasal Cannula 15 03/06/23 13:01 90 22 92 Nasal Cannula 15 03/06/23 08:25 36.7 C 89 20 116/75 91 High Flow Nasal Cannula 13 Laboratory Results Laboratory Results - last 24 hr 03/06/23 03/06/23 06:26 06:26 WBC 9.96 RBC 4.34 L Hgb 11.2 L Hct 34.8 L MCV 80.2 MCH 25.8 MCHC 32.2 RDW Std Deviation 50.8 H RDW Coeff of Jordan 17.7 H Plt Count 144 MPV 11.8 Sodium 136 Potassium 3.5 Chloride 95 L Carbon Dioxide 34 H Anion Gap 7 BUN 38 H Creatinine 1.92 H Est Cr Clr Drug Dosing 28.5 Est GFR ( Amer) 35.7 Est GFR (Non-Af Amer) 30.8 BUN/Creatinine Ratio 19.8 Glucose 103 H Calcium 8.4 L PG Care Time/CCT Total # of Minutes Spent Total Time Spent with Patient: Total time spent is greater than 50% in coordination of care (as documented) at patient's floor/unit and/or counseling patient: Coding Level of Care Code 51723 SUB INP/OBS CARE 3/50MIN Diagnoses Acute on chronic respiratory failure with hypoxia and hypercapnia J96.21; J96.22 Pneumonia due to COVID-19 virus U07.1; J12.82 C. difficile diarrhea A04.72 COPD with exacerbation J44.1 Bronchiectasis with (acute) exacerbation J47.1 Acute kidney injury N17.9 Acute on chronic diastolic (congestive) heart failure I50.33 Hypothyroidism E03.9 Hypothyroidism type: unspecified Hypertension I10 Multifocal atrial tachycardia I47.1 Chronic indwelling Cespedes catheter Z97.8 Pseudomonas aeruginosa infection A49.8 BPH (benign prostatic hyperplasia) N40.0 MRSA carrier Z22.322 DVT prophylaxis Z29.9 (8) Hypothyroidism Hypothyroidism type: unspecified Qualified Code(s): E03.9 - Hypothyroidism, unspecified
[2023-03-06] MEDS: MELATONIN 3 MG TAB PO SCH (22:39)
[2023-03-06] MEDS: NYSTATIN SUSP 500,000 U/5 ML UDC PO SCH (22:39)
[2023-03-07] MEDS: LEVALBUTEROL 1.25 MG/3 ML NEB NEB SCH ×4 (00:16→19:27)
[2023-03-07] MEDS: RASPBERRY SYRUP 5 ML UDP PO SCH ×3 (06:02→18:25)
[2023-03-07] MEDS: VANCOMYCIN HCL 125 MG/2.5ML SOLN PO SCH ×3 (06:02→18:25)
[2023-03-07] MEDS: HEPARIN SOD 5,000 UNIT/0.5 ML VIAL SQ SCH ×3 (06:03→20:53)
[2023-03-07] MEDS: LEVOTHYROXINE SODIUM 150 MCG TABLET PO SCH (06:08)
[2023-03-07] MEDS: LINEZOLID 600 MG/300 ML BAG IV SCH ×2 (06:09→18:32)
[2023-03-07] MEDS: FORMOTEROL 20 MCG/2 ML VIAL NEB SCH ×2 (07:26→19:26)
[2023-03-07] MEDS: BUDESONIDE 0.5 MG/2 ML VIAL (PULMICORT) NEB SCH ×2 (07:26→19:26)
[2023-03-07] MEDS: TOBRAMYCIN SULFATE VIAL INH SCH ×2 (07:40→19:29)
[2023-03-07] MEDS: SODIUM CHLOR 7% 4 ML NEB NEB SCH ×2 (08:13→19:26)
[2023-03-07] MEDS: NYSTATIN SUSP 500,000 U/5 ML UDC PO SCH ×4 (09:50→20:54)
[2023-03-07] MEDS: FINASTERIDE 5 MG TAB PO SCH (09:50)
[2023-03-07] MEDS: PANTOprazole 40 MG TAB PO SCH (09:51)
[2023-03-07] MEDS: MULTIVITAMIN TAB PO SCH (09:51)
[2023-03-07] MEDS: ADVANCED PROBIOTIC 1250 MG CAPSULE PO SCH (09:52)
[2023-03-07] MEDS: CHOLECALCIFEROL 1,000 UNITS 25 MCG TAB PO SCH (09:52)
[2023-03-07] MEDS: dilTIAZem HCL 180 MG CAPCR PO SCH (09:53)
[2023-03-07] MEDS: DICLOFENAC SOD 1% GEL 100 GM TUBE EXT SCH ×4 (09:53→20:51)
[2023-03-07] MEDS: MUPIROCIN 2% OINT 22 GM TUBE TOP SCH ×2 (09:54→20:52)
[2023-03-07 15:59] LABS: Basophils # (auto) 0.02 K/uL (0-0.2); Basophils % (auto) 0.3 %; Eosinophils # (auto) 0.11 K/uL (0-0.50); Eosinophils % (auto) 1.4 %; Hemoglobin 11.4 g/dl (14.0-18.0); Immature Granulocytes # (auto) 0.03 K/uL (0.01-0.20); Immature Granulocytes % (auto) 0.4 %; Lymphocytes # (auto) 0.51 K/uL (1.2-3.4); Lymphocytes % (auto) 6.6 %; Mean Corpuscular Hemoglobin 26.1 pg (25.0-34.0); Mean Corpuscular Hgb Conc 31.7 g/dL (32.0-36.0); Mean Corpuscular Volume 82.4 fL (80.0-100.0); Monocytes # (auto) 0.64 K/uL (0.11-0.59); Monocytes % (auto) 8.3 %; Neutrophils # (auto) 6.41 K/uL (1.40-6.50); Platelet Count 147 K/uL (130-400); RDW Coefficient of Variation 17.7 % (11.5-14.5); RDW Standard Deviation 51.9 fL (36.4-46.3); Red Blood Count 4.37 M/uL (4.70-6.10); White Blood Count 7.72 K/ul (4.8-10.8)
[2023-03-07 16:10] LABS: BUN Creatinine Ratio 19.3 (10-20); C Reactive Protein 11.19 mg/dl (0-0.5); Calcium 8.7 mg/dl (8.6-10.3); Creatinine Clr Calc Pharmacy 27.8 ml/min; Est GFR (African American) 34.6 ml/min; Est GFR (Non-African American) 29.9 ml/min; Potassium 3.4 mmol/L (3.5-5.1)
--- NOTE | 2023-03-07 18:42 | XRay Report ---
XR chest 1V portable CLINICAL HISTORY: worsening resp failure, b/l pneumonia TECHNIQUE: Single frontal radiograph of the chest was obtained. Comparison: Comparison is made to chest radiograph 03/03/2023 FINDINGS: No lines and tubes are seen. The cardiomediastinal silhouette is normal. Multifocal airspace opacitie s are seen. Small bilateral pleural effusions are seen. IMPRESSION: Multifocal airspace opacities may represent atelectasis, pneumonia, and/or aspiration, increased from prior exam. Small bilateral pleural effusions are seen. ACT 112: Negative or not required by law. Electronically signed by: Henry Ellsworth M.D. 03/07/2023 6:41 PM
--- NOTE | 2023-03-07 20:14 | Hospitalist Progress Note ---
Date of Service March 07, 2023 Assessment & Plan (1) Acute on chronic respiratory failure with hypoxia and hypercapnia: Plan: combination of COVID-19 infection (dx 02/12/23), COPD exacerbation, bronchiectasis exacerbation, recent pseudomonas infection, presumptive MRSA pneumonia, acute/chronic diastolic CHF, etc. has had progressive respiratory failure due to the above factors. 03/01/23 -- significant worsening in hypoxia, with HFNC requirements rising to 35 L at that time. CTA chest on 03/02 with severe b/l infiltrates. cannot rule out fibrosis development based on 03/02 CTA chest. No PEs seen at that time. since 03/01/23 he has been weaned down on his O2, but [id number] he continues to have severe failure to thrive, increased work of breathing, and worsening infiltrates on cxr today. crp is also the highest it has been since admission (11.1). completed 14 day course of cefepime for pseudomonas infection. now on zyvox - started 03/02 - to cover for possible MRSA superinfection of lungs. completed dexamethasone course (10 days) earlier in February for COVID-19. was diuresed last week but now has ALFONSO - holding diuresis again today. in light of overall worsening status will restart IV steroids - dexamethasone 6mg IV q12h. cont supportive care, bronchodilators, etc. 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 in light of worsening status will restart IV steroids - dexamethasone 6mg IV q12h. (3) C. difficile diarrhea: Plan: although toxin negative on testing he has had COPIOUS antibiotics in January and February for various infections he has had numerous stools, poor appetite, etc. reasonable to treat for c diff symptoms modestly better today day #3 of vancomycin 125mg QID x 10 days contract precautions lactinex daily hold any stool agents (senna, etc) (4) COPD with exacerbation: Plan: appreciate pulmonary recommendations cont supportive care see #1 above given the extent of his wheezing/rhonchi resuming IV steroids today as above (5) Bronchiectasis with (acute) exacerbation: Plan: 2nd to pseudomonas see above cont tobramycin nebs BID (6) Acute kidney injury: Plan: 2nd to over-diuresis -- suspected cont to hold bumex BMP am cespedes in place (7) Acute on chronic diastolic (congestive) heart failure: Plan: in face of diuresis has developed ALFONSO hold further bumex (8) Hypothyroidism: Plan: most recent TSH wnl cont synthroid (9) Hypertension: Plan: controlled (10) Multifocal atrial tachycardia: Plan: cont CCB (11) Chronic indwelling Cespedes catheter: Plan: no issues (12) Pseudomonas aeruginosa infection: Plan: see above (13) BPH (benign prostatic hyperplasia): Plan: finasteride flomax cespedes (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: Plan: contact precautions treating for active MRSA infection of lungs with zyvox (this is presumed rather than confirmed); zyvox added due to acute worsening of his pulmonary status on 03/01 (15) DVT prophylaxis: Plan: heparin SC Plan c/o right arm weakness/heaviness - I believe this is due to his chronic right shoulder rotator cuff arthropathy cont renetta could consider CT head but suspect it would be negative for CVA doubt he could tolerate an MRI brain thus defer right great toe inflammation - suspect mild cellulitis - improved with zyvox no evidence of gout prognosis remains guarded appreciate palliative care consultation although his O2 requirement is down, he overall continues to do poorly Admission and Anticipated Discharge Date Admission Date: February 18, 2023 Subjective during the visit the patient was quite tachypnea, coughing, very course audible breath sounds that I could hear while I was speaking with him earlier today the HFNC was d/c and he was changed to oxymask he reports severe fatigue still with diarrhea but not as frequent no appetite numerous family at bedside today including his , grandson, son, etc Review of Systems Review of Systems: gen - severe fatigue & weakness, no appetite; no fevers; does stay cold cv - no chest pain or tightness pulm - ongoing cough/wheezing/dyspnea with minimal activity GI - no abd pain/nausea/emesis musculo - right great toe pain improved Physical Exam Physical Exam: gen - looks very fatigued, weak, fragile; significant tachypnea (rates high 20s/30 or so), retractions, visible breathlessness mouth - MM dry neck - no JVD heart - irregular, tachy, s1 s2, no obvious murmur lungs - diffuse wheezing/rhonchi; crackles b/l; tachypnea, subcostal retractions, etc abd - soft NT ND BS+ ext - pulses 1-2+ b/l; no edema; TEDS in place psych - awake, alert, oriented x 3 skin - ecchymoses on arms - extensive; right great toe erythema resolving; pre- ulcer distal tip of right first toe Results & Data Results & Data Vital Signs (Past 12 Hours) Vital Signs Temp Pulse Resp BP Pulse Ox O2 Del Method O2 Flow Rate 03/07/23 19:29 99 H 20 94 Oxymask 8 03/07/23 14:51 37.0 C 109 H 18 125/77 94 High Flow Nasal Cannula 8 03/07/23 13:15 93 H 24 91 Nasal Cannula 15 Laboratory Results Laboratory Results - last 24 hr 03/07/23 03/07/23 15:00 15:00 WBC 7.72 RBC 4.37 L Hgb 11.4 L Hct 36.0 L MCV 82.4 MCH 26.1 MCHC 31.7 L RDW Std Deviation 51.9 H RDW Coeff of Jordan 17.7 H Plt Count 147 MPV 11.0 Immature Gran % (Auto) 0.4 Neut % (Auto) 83.0 Lymph % (Auto) 6.6 Mccone % (Auto) 8.3 Eos % (Auto) 1.4 Baso % (Auto) 0.3 Neut # (Auto) 6.41 Lymph # (Auto) 0.51 L Mccone # (Auto) 0.64 H Eos # (Auto) 0.11 Baso # (Auto) 0.02 Immature Gran # (Auto) 0.03 Sodium 134 L Potassium 3.4 L Chloride 93 L Carbon Dioxide 34 H Anion Gap 7 BUN 38 H Creatinine 1.97 H Est Cr Clr Drug Dosing 27.8 Est GFR ( Amer) 34.6 Est GFR (Non-Af Amer) 29.9 BUN/Creatinine Ratio 19.3 Glucose 100 H Calcium 8.7 C-Reactive Protein 11.19 H Diagnostic Findings Chest X-Ray 03/07/23 18:18 XR chest 1V portable CLINICAL HISTORY: worsening resp failure, b/l pneumonia TECHNIQUE: Single frontal radiograph of the chest was obtained. Comparison: Comparison is made to chest radiograph 03/03/2023 FINDINGS: No lines and tubes are seen. The cardiomediastinal silhouette is normal. Multifocal airspace opacities are seen. Small bilateral pleural effusions are seen. IMPRESSION: Multifocal airspace opacities may represent atelectasis, pneumonia, and/or aspiration, increased from prior exam. Small bilateral pleural effusions are seen. ACT 112: Negative or not required by law. Electronically signed by: Henry Ellsworth M.D. 03/07/2023 6:41 PM PG Care Time/CCT Total # of Minutes Spent Total Time Spent with Patient: Total time spent is greater than 50% in coordination of care (as documented) at patient's floor/unit and/or counseling patient: Coding Level of Care Code 17343 SUB INP/OBS CARE 3/50MIN Diagnoses Acute on chronic respiratory failure with hypoxia and hypercapnia J96.21; J96.22 Pneumonia due to COVID-19 virus U07.1; J12.82 C. difficile diarrhea A04.72 COPD with exacerbation J44.1 Bronchiectasis with (acute) exacerbation J47.1 Acute kidney injury N17.9 Acute on chronic diastolic (congestive) heart failure I50.33 Hypothyroidism E03.9 Hypothyroidism type: unspecified Hypertension I10 Multifocal atrial tachycardia I47.1 Chronic indwelling Cespedes catheter Z97.8 Pseudomonas aeruginosa infection A49.8 BPH (benign prostatic hyperplasia) N40.0 MRSA carrier Z22.322 DVT prophylaxis Z29.9 (8) Hypothyroidism Hypothyroidism type: unspecified Qualified Code(s): E03.9 - Hypothyroidism, unspecified
[2023-03-07] MEDS: dexAMETHasone 6 MG in SYRINGE 0 ML IV SCH (20:50)
[2023-03-07] MEDS: MELATONIN 3 MG TAB PO SCH (20:51)
[2023-03-07] MEDS: POTASSIUM CHLORIDE PWD 20 MEQ PACK PO SCH (20:51)
[2023-03-07] MEDS: TAMSULOSIN HCL 0.4 MG CAP PO SCH (20:54)
[2023-03-07] MEDS ORDERED: LEVALBUTEROL 1.25 MG/3 ML NEB NEB PRN (22:18)
[2023-03-08] MEDS: RASPBERRY SYRUP 5 ML UDP PO SCH ×6 (00:10→23:58)
[2023-03-08] MEDS: VANCOMYCIN HCL 125 MG/2.5ML SOLN PO SCH ×6 (00:10→23:58)
[2023-03-08] MEDS: LEVALBUTEROL 1.25 MG/3 ML NEB NEB SCH ×5 (00:16→23:46)
[2023-03-08] MEDS: HEPARIN SOD 5,000 UNIT/0.5 ML VIAL SQ SCH ×3 (05:34→21:22)
[2023-03-08] MEDS: LEVOTHYROXINE SODIUM 150 MCG TABLET PO SCH (05:36)
[2023-03-08] MEDS: LINEZOLID 600 MG/300 ML BAG IV SCH ×2 (05:45→18:13)
[2023-03-08] MEDS: dexAMETHasone 6 MG in SYRINGE 0 ML IV SCH ×2 (05:45→18:35)
[2023-03-08 06:45] LABS: BUN Creatinine Ratio 19.9 (10-20); C Reactive Protein 11.29 mg/dl (0-0.5); Calcium 8.5 mg/dl (8.6-10.3); Creatinine Clr Calc Pharmacy 27.9 ml/min; Est GFR (African American) 34.9 ml/min; Est GFR (Non-African American) 30.1 ml/min; Potassium 4.2 mmol/L (3.5-5.1)
[2023-03-08] MEDS: BUDESONIDE 0.5 MG/2 ML VIAL (PULMICORT) NEB SCH ×2 (07:07→19:18)
[2023-03-08] MEDS: FORMOTEROL 20 MCG/2 ML VIAL NEB SCH ×2 (07:07→19:17)
[2023-03-08] MEDS: SODIUM CHLOR 7% 4 ML NEB NEB SCH ×2 (07:12→19:17)
[2023-03-08] MEDS: TOBRAMYCIN SULFATE VIAL INH SCH ×2 (07:52→19:18)
[2023-03-08] MEDS: PANTOprazole 40 MG TAB PO SCH (09:17)
[2023-03-08] MEDS: CHOLECALCIFEROL 1,000 UNITS 25 MCG TAB PO SCH (09:17)
[2023-03-08] MEDS: dilTIAZem HCL 180 MG CAPCR PO SCH (09:17)
[2023-03-08] MEDS: FINASTERIDE 5 MG TAB PO SCH (09:18)
[2023-03-08] MEDS: MULTIVITAMIN TAB PO SCH (09:18)
[2023-03-08] MEDS: ADVANCED PROBIOTIC 1250 MG CAPSULE PO SCH (09:19)
[2023-03-08] MEDS: NYSTATIN SUSP 500,000 U/5 ML UDC PO SCH ×4 (09:19→21:22)
[2023-03-08] MEDS: DICLOFENAC SOD 1% GEL 100 GM TUBE EXT SCH ×4 (09:19→21:20)
[2023-03-08] MEDS: MUPIROCIN 2% OINT 22 GM TUBE TOP SCH ×2 (09:22→21:21)
[2023-03-08] MEDS: POTASSIUM CHLORIDE PWD 20 MEQ PACK PO SCH (09:56)
--- NOTE | 2023-03-08 21:01 | Hospitalist Progress Note ---
Date of Service March 08, 2023 Assessment & Plan (1) Acute on chronic respiratory failure with hypoxia and hypercapnia: Plan: acute components --> combination of COVID-19 infection (dx 02/12/23), COPD exacerbation, bronchiectasis exacerbation, recent pseudomonas infection, presumptive MRSA pneumonia, acute/chronic diastolic CHF, etc. has had progressive respiratory failure due to the above factors. 03/01/23 -- significant worsening in hypoxia, with HFNC requirements rising to 35 L at that time. CTA chest on 03/02 with severe b/l infiltrates. cannot rule out fibrosis development based on 03/02 CTA chest. No PEs seen at that time. since 03/01/23 he has been weaned down on his O2, but [id number] he continues to have severe failure to thrive, increased work of breathing, and worsening infiltrates on cxr 03/07. crp remains at 11. completed 14 day course of cefepime for pseudomonas infection. now on zyvox - started 03/01 - to cover for possible MRSA superinfection of lungs. will d/c zyvox tomorrow. completed dexamethasone course (10 days) earlier in February for COVID-19. was diuresed last week but now has ALFONSO - holding diuresis again today. in light of overall worsening status restarted IV steroids on 03/07 - dexamethasone 6mg IV q12h. cont steroids without any wean today. cont supportive care, bronchodilators, etc. 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 in light of worsening status restarted IV steroids - dexamethasone 6mg IV q12h - 03/07. (3) C. difficile diarrhea: Plan: although toxin negative on testing he has had COPIOUS antibiotics in January and February for various infections he has had numerous stools, poor appetite, etc. reasonable to treat for c diff symptoms again better today day #4 of vancomycin 125mg QID x 10 days contract precautions lactinex daily (4) COPD with exacerbation: Plan: appreciate pulmonary recommendations cont supportive care see #1 above cont IV dexamethasone 6mg BID (5) Bronchiectasis with (acute) exacerbation: Plan: 2nd to pseudomonas see above cont tobramycin nebs BID (6) Acute kidney injury: Plan: 2nd to over-diuresis -- suspected cont to hold bumex BMP am cespedes in place (7) Acute on chronic diastolic (congestive) heart failure: Plan: in face of diuresis has developed ALFONSO hold further bumex (8) Hypothyroidism: Plan: most recent TSH wnl cont synthroid (9) Hypertension: Plan: controlled (10) Multifocal atrial tachycardia: Plan: cont CCB (11) Chronic indwelling Cespedes catheter: Plan: no issues (12) Pseudomonas aeruginosa infection: Plan: see above (13) BPH (benign prostatic hyperplasia): Plan: finasteride flomax cespedes (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: Plan: contact precautions treating for active MRSA infection of lungs with zyvox (this is presumed rather than confirmed); zyvox added due to acute worsening of his pulmonary status on 03/01 plan to stop zyvox after tomorrow's doses (15) DVT prophylaxis: Plan: heparin SC Plan right arm weakness/heaviness - I believe this is due to his chronic right shoulder rotator cuff arthropathy cont voltaren right great toe inflammation - suspected mild cellulitis - improved/resolved with zyvox no evidence of gout prognosis remains guarded appreciate palliative care consultation although his O2 requirement is down, he overall continues to do poorly re-eval tomorrow Admission and Anticipated Discharge Date Admission Date: February 18, 2023 Subjective patient feels slightly better today than yesterday still quite weak appetite remains poor easily dyspneic coughing some mild sputum production multiple family at bedside right great toe pain resolved Review of Systems Review of Systems: gen - no fevers or chills cv - no chest pain pulm - cough/wheezing/dyspnea/REID GI - no abd pain; diarrhea improving, stools not liquid (loose at this point) Physical Exam Physical Exam: gen - continues to look very fatigued, weak; still with mild tachypnea, visible breathlessness when he talks a lot mouth - MM dry, no obvious thrush neck - no JVD heart - RR, tachy, s1 s2, no obvious murmur lungs - still with diffuse wheezing/rhonchi - scantly better; crackles b/l; tac hypnea abd - soft NT ND BS+ ext - pulses 1-2+ b/l; no edema; TEDS in place psych - awake, alert, oriented x 3 skin - right great toe erythema resolved; pre-ulcer distal tip of right first toe unchanged Results & Data Results & Data Vital Signs (Past 12 Hours) Vital Signs Temp Pulse Resp BP Pulse Ox O2 Del Method O2 Flow Rate 03/08/23 19:20 52 L 18 93 Nasal Cannula 6 03/08/23 14:42 36.7 C 108 H 22 111/59 L 96 Nasal Cannula 6 03/08/23 12:11 106 H 24 96 Oxymask 6 03/08/23 09:39 36.4 C L 107 H 20 119/63 92 Oxymask 6 Laboratory Results Laboratory Results - last 24 hr 03/08/23 05:53 Sodium 134 L Potassium 4.2 D Chloride 93 L Carbon Dioxide 33 H Anion Gap 8 BUN 39 H Creatinine 1.96 H Est Cr Clr Drug Dosing 27.9 Est GFR ( Amer) 34.9 Est GFR (Non-Af Amer) 30.1 BUN/Creatinine Ratio 19.9 Glucose 145 H Calcium 8.5 L C-Reactive Protein 11.29 H PG Care Time/CCT Total # of Minutes Spent Total Time Spent with Patient: Total time spent is greater than 50% in coordination of care (as documented) at patient's floor/unit and/or counseling patient: Coding Level of Care Code 00958 SUB INP/OBS CARE 2/35MIN Diagnoses Acute on chronic respiratory failure with hypoxia and hypercapnia J96.21; J96.22 Pneumonia due to COVID-19 virus U07.1; J12.82 C. difficile diarrhea A04.72 COPD with exacerbation J44.1 Bronchiectasis with (acute) exacerbation J47.1 Acute kidney injury N17.9 Acute on chronic diastolic (congestive) heart failure I50.33 Hypothyroidism E03.9 Hypothyroidism type: unspecified Hypertension I10 Multifocal atrial tachycardia I47.1 Chronic indwelling Cespedes catheter Z97.8 Pseudomonas aeruginosa infection A49.8 BPH (benign prostatic hyperplasia) N40.0 MRSA carrier Z22.322 DVT prophylaxis Z29.9 (8) Hypothyroidism Hypothyroidism type: unspecified Qualified Code(s): E03.9 - Hypothyroidism, unspecified
[2023-03-08] MEDS: TAMSULOSIN HCL 0.4 MG CAP PO SCH (21:22)
[2023-03-08] MEDS: MELATONIN 3 MG TAB PO SCH (21:30)
[2023-03-09] MEDS: VANCOMYCIN HCL 125 MG/2.5ML SOLN PO SCH ×4 (06:22→23:53)
[2023-03-09] MEDS: RASPBERRY SYRUP 5 ML UDP PO SCH ×4 (06:22→23:53)
[2023-03-09] MEDS: HEPARIN SOD 5,000 UNIT/0.5 ML VIAL SQ SCH ×3 (06:24→20:48)
[2023-03-09] MEDS: LEVOTHYROXINE SODIUM 150 MCG TABLET PO SCH (06:25)
[2023-03-09] MEDS: LINEZOLID 600 MG/300 ML BAG IV SCH (06:30)
[2023-03-09 06:35] LABS: Base Excess VBG 8.2 mEq/L; HCO3 VBG 36 mmol/L; Oxygen Saturation VBG 64.1 %; PCO2 VBG 60 mmHg (38-50); PO2 VBG 36 mmHg; pH VBG 7.38 (7.36-7.41)
[2023-03-09] MEDS: dexAMETHasone 6 MG in SYRINGE 0 ML IV SCH ×2 (06:40→17:45)
[2023-03-09] MEDS: SODIUM CHLOR 7% 4 ML NEB NEB SCH ×2 (07:04→20:18)
[2023-03-09 07:05] LABS: BUN Creatinine Ratio 24.3 (10-20); C Reactive Protein 5.57 mg/dl (0-0.5); Calcium 8.3 mg/dl (8.6-10.3); Creatinine Clr Calc Pharmacy 27.1 ml/min; Est GFR (African American) 33.6 ml/min; Potassium 4.1 mmol/L (3.5-5.1)
[2023-03-09] MEDS: LEVALBUTEROL 1.25 MG/3 ML NEB NEB SCH ×3 (07:19→20:18)
[2023-03-09] MEDS: BUDESONIDE 0.5 MG/2 ML VIAL (PULMICORT) NEB SCH ×2 (07:19→20:18)
[2023-03-09] MEDS: FORMOTEROL 20 MCG/2 ML VIAL NEB SCH ×2 (07:19→20:18)
[2023-03-09] MEDS: TOBRAMYCIN SULFATE VIAL INH SCH ×2 (07:29→20:22)
[2023-03-09] MEDS: ACETAMINOPHEN 325 MG TAB PO PRN (09:06)
[2023-03-09] MEDS: DICLOFENAC SOD 1% GEL 100 GM TUBE EXT SCH ×4 (09:07→20:47)
[2023-03-09] MEDS: PANTOprazole 40 MG TAB PO SCH (09:08)
[2023-03-09] MEDS: dilTIAZem HCL 180 MG CAPCR PO SCH (09:09)
[2023-03-09] MEDS: FINASTERIDE 5 MG TAB PO SCH (09:09)
[2023-03-09] MEDS: MAGNESIUM OXIDE 400 MG TAB PO SCH (09:09)
[2023-03-09] MEDS: MULTIVITAMIN TAB PO SCH (09:10)
[2023-03-09] MEDS: CHOLECALCIFEROL 1,000 UNITS 25 MCG TAB PO SCH (09:10)
[2023-03-09] MEDS: ADVANCED PROBIOTIC 1250 MG CAPSULE PO SCH (09:11)
[2023-03-09] MEDS: MUPIROCIN 2% OINT 22 GM TUBE TOP SCH ×2 (09:12→20:48)
[2023-03-09] MEDS: NYSTATIN SUSP 500,000 U/5 ML UDC PO SCH ×4 (09:12→20:48)
--- NOTE | 2023-03-09 10:53 | Palliative Care Progress Note ---
Date of Service March 09, 2023 Assessment & Plan (1) Palliative care by specialist: (2) Discussion about advance care planning held with family member: (3) Dyspnea and respiratory abnormalities: Plan I called pt to offer a family meeting and have made the following times available for her and family: Today 4-5pm or tomorrow between 1230-4pm. I offered to hold meeting either in person or via Zoom because she indicated concerns for a daughter in law with immunity issues. I also offered to have a Zoom meeting with them as a family first then a second, in person meeting with them (whomever she selects to attend) and patient at his bedside. She likes this option but notes she ahs to speak with family to see what is best for everyone's schedule. She states she will speak with her sons and get back to me with preferred date/time. TS 23min in teleconf with , brief discussion of AD/goals. patient not seen/await family meeting no charge submitted Thank you for allowing us to participate in the ongoing care of this patient. Please don't hesitate to call or page with any additional concerns. Dr. Christie Caraballo DNP Director, Palliative Care Admission and Anticipated Discharge Date Admission Date: February 18, 2023 Subjective case d/w Dr Burroughs, weekend events noted oral intake remains poor easily exerted, no pulm reserve family struggling with coming to terms with his prognosis Results & Data Vital Signs (Past 12 Hours) Vital Signs Temp Pulse Resp BP Pulse Ox O2 Del Method O2 Flow Rate 03/09/23 07:09 36.8 C 91 H 18 122/70 99 Oxymask 7 03/09/23 07:04 90 18 97 CPAP 7 03/08/23 23:46 105 H 20 93 CPAP 7 PG Care Time/CCT Total # of Minutes Spent Total Time Spent with Patient: Total time spent is greater than 50% in coordination of care (as documented) at patient's floor/unit and/or counseling patient: Coding Level of Care Code Established Pt None Patient Type Established Medical Decision Making High Complexity Diagnoses Palliative care by specialist Z51.5 Discussion about advance care planning held with family member Z71.0 Dyspnea and respiratory abnormalities R06.00; R06.89
[2023-03-09] MEDS: FIRST - Mouthwash BLM 119 ML PO PRN (13:30)
--- NOTE | 2023-03-09 20:10 | Hospitalist Progress Note ---
Date of Service March 09, 2023 Assessment & Plan (1) Acute on chronic respiratory failure with hypoxia and hypercapnia: Plan: acute components --> combination of COVID-19 infection (dx 02/12/23), COPD exacerbation, bronchiectasis exacerbation, recent pseudomonas infection, presumptive MRSA pneumonia, acute/chronic diastolic CHF, etc. has had progressive respiratory failure due to the above factors over the last 3+ weeks. there was some mild improvement but then, on 03/01/23, had significant acute worsening in hypoxia, with HFNC requirements rising to 35 L at that time. CTA chest on 03/02 with severe b/l infiltrates. cannot rule out fibrosis development based on 03/02 CTA chest. No PEs seen at that time. since 03/01/23 he has been weaned down on his O2, but [id number] he continues to have failure to thrive, periods of increased work of breathing, and worsening infiltrates on cxr 03/07. crp increased to 11 over the weekend, but is down to 5 today s/p steroids (instituted 03/07/23). completed 14 day course of cefepime for pseudomonas infection. completed 7-day course of zyvox for possible MRSA superinfection of lungs. d/c zyvox today. completed dexamethasone course (10 days) earlier in February for COVID-19. was diuresed last week but now has ALFONSO - holding diuresis again today. in light of overall worsening status restarted IV steroids on 03/07 - dexamethasone 6mg IV q12h. cont steroids without any wean today. cont supportive care, bronchodilators, etc. (2) Pneumonia due to COVID-19 virus: Plan: dx 02/12/23 suspect COVID-19 infection contributed heavily to his worsening respiratory status since earlier this month followed by bacterial superinfection off airborne precautions s/p 10 day course of decadron earlier this month in light of worsening status over this past weekend restarted IV steroids - dexamethasone 6mg IV q12h - on 03/07. ?developing post-COVID fibrosis on recent chest CT? (3) C. difficile diarrhea: Plan: although toxin negative on testing he has had COPIOUS antibiotics in January and February for various infections he had had numerous stools, poor appetite, etc. reasonable to treat for c diff slowly improving today is day #5 of vancomycin 125mg QID x 10 days contract precautions lactinex daily (4) COPD with exacerbation: Plan: appreciate pulmonary recommendations cont supportive care see #1 above cont IV dexamethasone 6mg BID no wean today (5) Bronchiectasis with (acute) exacerbation: Plan: 2nd to pseudomonas see above cont tobramycin nebs BID (6) Acute kidney injury: Plan: 2nd to over-diuresis -- suspected cont to hold bumex Creatinine 2 today BMP am cespedes in place (7) Acute on chronic diastolic (congestive) heart failure: Plan: in face of last week's diuresis has developed ALFONSO cont to hold bumex (8) Hypothyroidism: Plan: most recent TSH wnl cont synthroid (9) Hypertension: Plan: controlled (10) Multifocal atrial tachycardia: Plan: cont CCB (11) Chronic indwelling Cespedes catheter: Plan: no issues (12) Pseudomonas aeruginosa infection: Plan: see above (13) BPH (benign prostatic hyperplasia): Plan: finasteride flomax cespedes (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: Plan: contact precautions treating for active MRSA infection of lungs with zyvox (this is presumed rather than confirmed); zyvox added due to acute worsening of his pulmonary status on 03/01 s/p 7 days of zyvox thus stop after today's doses (15) DVT prophylaxis: Plan: heparin SC (16) Hyponatremia: Plan: 2nd to ALFONSO + poor oral intake serial BMPs avoid IV fluids --> develops fluid overload very easily Plan right arm weakness/heaviness - I believe this is due to his chronic right shoulder rotator cuff arthropathy cont voltaren feels about the same today right great toe inflammation - suspected mild cellulitis - resolved with zyvox no evidence of gout prognosis remains guarded appreciate palliative care consultation and their ongoing efforts Ms Caraballo met with family today --> lengthy meeting held hospice vs comfort care discussed another meeting to take place on cont current care plan but with no escalation of care if any clinical worsening updated at bedside today Admission and Anticipated Discharge Date Admission Date: February 18, 2023 Subjective patient resting in bed during my visit at bedside this afternoon the patient and his family met with Linda Caraballo from palliative care current status, options for care, hospice vs comfort care, etc all discussed patient states he will be meeting with Ms Caraballo again later in the week he is still having some loose stool but improving appetite better today he thinks his breathing is a little better today still with cough but sputum is clear still with REID with minimal activity towards the end of the visit he stated "I know my time is short." He said this in the context of talking about his family and being so appreciative for their love & support. Review of Systems Review of Systems: gen - fatigue/weakness; no fevers; appetite mildly improved cv - no chest pain pulm - cough/congestion/wheezing/dyspnea; still requiring 9 L of O2 via oxymask GI - no abd pain or nausea Physical Exam Physical Exam: gen - looks better than yesterday - looks a bit more rested, not as fatigued; however - still with mild tachypnea and some breathlessness when he talks a lot; harsh bronchial cough as previous mouth - MM dry neck - no JVD heart - RR, tachy, s1 s2, no obvious murmur lungs - still with diffuse wheezing/rhonchi - about the same as yesterday; crackles b/l; decreased BS b/l bases; mild tachypnea abd - soft NT ND BS+ ext - pulses 2+ b/l; no edema; TEDS in place psych - awake, alert, oriented x 3 skin - right great toe erythema resolved; no tenderness to palpation Results & Data Results & Data Vital Signs (Past 12 Hours) Vital Signs Temp Pulse Resp BP Pulse Ox O2 Del Method O2 Flow Rate 03/09/23 09:00 Oxymask 6 03/09/23 14:27 36.4 C L 87 18 122/72 100 Oxymask 03/09/23 13:11 90 20 97 Oxymask 11 Laboratory Results Laboratory Results - last 24 hr 03/09/23 03/09/23 06:29 06:29 VBG pH 7.38 VBG pCO2 60 H VBG pO2 36 VBG HCO3 36 VBG O2 Saturation 64.1 VBG Base Excess 8.2 Sodium 130 L Potassium 4.1 Chloride 92 L Carbon Dioxide 31 Anion Gap 7 BUN 49 H Creatinine 2.02 H Est Cr Clr Drug Dosing 27.1 Est GFR ( Amer) 33.6 Est GFR (Non-Af Amer) 29.0 BUN/Creatinine Ratio 24.3 H Glucose 144 H Calcium 8.3 L C-Reactive Protein 5.57 H PG Care Time/CCT Total # of Minutes Spent Total Time Spent with Patient: Total time spent is greater than 50% in coordination of care (as documented) at patient's floor/unit and/or counseling patient: Coding Level of Care Code 93501 SUB INP/OBS CARE 2/35MIN Diagnoses Acute on chronic respiratory failure with hypoxia and hypercapnia J96.21; J96.22 Pneumonia due to COVID-19 virus U07.1; J12.82 C. difficile diarrhea A04.72 COPD with exacerbation J44.1 Bronchiectasis with (acute) exacerbation J47.1 Acute kidney injury N17.9 Acute on chronic diastolic (congestive) heart failure I50.33 Hypothyroidism E03.9 Hypothyroidism type: unspecified Hypertension I10 Multifocal atrial tachycardia I47.1 Chronic indwelling Cespedes catheter Z97.8 Pseudomonas aeruginosa infection A49.8 BPH (benign prostatic hyperplasia) N40.0 MRSA carrier Z22.322 DVT prophylaxis Z29.9 Hyponatremia E87.1 (8) Hypothyroidism Hypothyroidism type: unspecified Qualified Code(s): E03.9 - Hypothyroidism, unspecified
[2023-03-09] MEDS: MELATONIN 3 MG TAB PO SCH (20:47)
[2023-03-09] MEDS: TAMSULOSIN HCL 0.4 MG CAP PO SCH (20:48)
[2023-03-10] MEDS: LEVALBUTEROL 1.25 MG/3 ML NEB NEB SCH ×5 (01:49→23:40)
[2023-03-10] MEDS: LEVOTHYROXINE SODIUM 150 MCG TABLET PO SCH (05:39)
[2023-03-10] MEDS: RASPBERRY SYRUP 5 ML UDP PO SCH ×3 (05:39→18:24)
[2023-03-10] MEDS: HEPARIN SOD 5,000 UNIT/0.5 ML VIAL SQ SCH ×3 (05:39→21:40)
[2023-03-10] MEDS: dexAMETHasone 6 MG in SYRINGE 0 ML IV SCH ×2 (05:40→18:24)
[2023-03-10] MEDS: VANCOMYCIN HCL 125 MG/2.5ML SOLN PO SCH ×3 (05:49→18:23)
[2023-03-10] MEDS: BUDESONIDE 0.5 MG/2 ML VIAL (PULMICORT) NEB SCH ×2 (07:28→19:21)
[2023-03-10] MEDS: FORMOTEROL 20 MCG/2 ML VIAL NEB SCH ×2 (07:28→19:21)
[2023-03-10] MEDS: SODIUM CHLOR 7% 4 ML NEB NEB SCH ×2 (07:28→19:21)
--- NOTE | 2023-03-10 07:59 | Palliative Family Discussion ---
Date of Service March 09, 2023 Patient Directed Conference Time of Meetin-515pm via Zoom Participants: Christie Caraballo DNP Patient participation: yes with at bedside Patient Support System: by Zoom: son Dharmesh + , son Trevor + Other Healthcare Provider Participation: None Meeting Location: pt bedside w/ + zoom for family as noted above Advanced Directive available: no The patient's surrogate medical decision maker participated:yes, Legally authorized health care proxy: by [place] Act 169 Other surrogate: not applicable A family meeting was held for ISMA YU. This meeting was necessary for determining the appropriate course of treatment. Topics of Discussion Topics of Discussion: 1. advanced /end stage lung disease: copd w/bronchiectasis complicated by PsA & MRSA infections/impaired airway clearance/inc work of breathing + Covid + Covid sequelae of lungs - + interstitial changes and now +C diff infection/active. i reviewed their prior discussions with pulmonary team and we discussed pt's overall declining trajectory with growing frailty. 2. worsening resp failure requiring HFNC alternating with PAP and oxymask 11- 15lpm;desalts with any minimal exertion including conversations , eatin g/drinking, care in bed from nursing. Pt is PS 4. 3. Comorbidities of heart failure, renal insufficiency, anorexia, cachexia, severe deconditioning,etc. 4. Pt is at end stages of lung failure, which cannot be cured or reversed. In spite of maximal medical therapies, he continues to decline. He understands CPR will not be of meaningful benefit at this end stage of disease and reaffirms no code/dnr-dni status which and family are in agreement about with pt. His insurance denied coverage for [facility] though we also discussed that we are at a point where time is limited. we spoke about where would Isma want to spend this time. We reviewed he shared with me preference to return home to maximize time w/family but current oxygen needs are too high for at home support. he does not want a chcf. family agrees with his preference. they want to support his choice. 5. we spoke about comfort care vs inpatient hospice. son dharmesh reports "bad experience with my father in law and hospice there at the hospital not too long ago." after further discussion ,it became clear his father in law was placed on comfort care in the hospital but perhaps the messaging of that care became confused because providers and staff kept calling it 'hospice'. no hospice agency was involved/Dharmesh states they never met with or spoke to anyone from [facility] which is the agency who does [facility]. because they never met anyone from hospice, they felt it was a "scam." i provided detailed information and clarity - this sounds more like comfort care status that was erroneously called hospice which created a misunderstanding with family, who perceived 'hospice never showed up.' dharmesh and his repeatedly inquired if hospital would "kick him out because he wasn't acute anymore" and I advised/reassured that is not the case but rather a plan for disposition needed to come together and without knowing their wishes, our care mgt team could not work towards this goal. i reiterated that current oxygen needs cannot be met at home or a basic local snf, therefore he needs someplace with the capacity to provide advanced oxygen modality which would be acute rehabs, ltach's, or maybe a vent snf if they could make an exception for a non vented but high flow requiring pt. i told them the nearest vent snf i knew was in [place] [facility] the [facility] near [place] but it is small and generally always full. i told them I asked care mgt to call this facility to inquire if they'd accept a pt like Isma. 6. Trevor feels pt is still enjoying life even on current oxygen demands. he asked about comfort focused care in hospital which they would prefer over hospice or a chcf. dtr in law commented that going further away from home at this point would not make sense and create more isolation for pt who had limited time. i shared the same concern and asked him to speak further as a family about identifying their specific goals. 7. when asked directly, Isma stated his goal/wish is for comfort care in the hospital unless we can get him home,where he would be amenable to home hospice. We discussed the goals of hospice as a patient service and the goals of care; we discussed EOL trajectories and transitions lloyd the emotional impact of realizing mortality as a concrete reality from prior abstract considerations. Pt was reassured that no matter where they are along this trajectory, they are not alone - their medical team will remain by their side through their journey. Discussed the pros/cons of accepting help when especially weakened and distressed by pain-which would also help provide relief/decrease caregiver burden/strain. I provided education about the hospice benefit: an interdisciplinary program offered by nurses, nurses aides, social workers, chaplains and a senior medical transcriptionist for patients with a terminal condition and a life expectancy of less than 6 months. This is covered by Medicare at 100%/no out of pocket expense to patient and all meds/supplies needed by patient for the reason they are on hospice are paid for/covered by hospice. The goal is assure quality of life of the patient in their home setting (home, chcf, inpatient hospice setting) by providing symptoms management, psychosocial and spiritual support. However, they cannot offer 24 hours care and if the family is unable to provide that care, they will have to consider personal care with out of pocket cost vs. chcf placement. We discussed the goals of hospice as a patient service and the goals of care; we discussed EOL trajectories and transitions lloyd the emotional impact of realizing mortality as a concrete reality from prior abstract considerations. Pt was reassured that no matter where they are along this trajectory, they are not alone - their medical team will remain by their side through their journey. Discussed the pros/cons of accepting help when especially weakened and distressed by pain-which would also help provide relief/decrease caregiver burden/strain. Other Content of Meetin. Opportunity given for participants to speak and ask questions. 2. Participants were assured of attention to patient comfort. 3. Reassurance provided. 4. Support was provided for informed, good-tyrell decisions. 5. Emotions expressed by family were acknowledged and addressed. 6. Follow-up: Zoom conference at 3pm, family state they cannot meet sooner due to prior commitments/work schedules. 7. Plan of Care: MODIFIED COMFORT APPROACH BUT NOT FORMALLY COMFORT CARE. NO ESCALATION OF CARE. LIMITED LABS BUT NO DAILY LABS. LIBERALIZE DIET FOR COMFORT/PLEASURE. NO TRACKING CALORIES. NO I & O, DAILY WEIGHTS ETC. * please note: Dying adv lung failure patients fear dyspnea and pain, therefore, symptom control is one cornerstone of pulmonary palliative care. Dyspnea is a prominent symptom of the patient with advanced respiratory disease of any cause: nearly all patients with COPD had dyspnea during the last 3 days of t heir lives. Providers routinely care for patients with chronic or advanced respiratory diseases and critical illnesses. The ATS recognizes: the growing importance and complexity of palliative care for patients with life- threatening and life-limiting diseases and disorders and the need for improving professional competence and teamwork in providing such care. The statement strongly endorses the concept that palliative care should be available to patients at all stages of illness and should be individualized based on the needs and preferences of the patient and the patients family. Clinicians should consult with palliative care specialists as appropriate for managing palliative care situations beyond the clinicians level of competence. (ATS Clinical Policy Statement: Palliative Care for Patients with Respiratory Diseases and Critical Illnesses; Miko Rodriguez et al., for the [employer], the [employer], the [place] [employer], and the Respiratory Society* Diagnosis and Management of Stable Chronic Obstructive Pulmonary Disease: A Clinical Practice Guideline Update from the [employer], [employer], [place] [employer] Society, and Respiratory Society . [employer] Med. 2011;[phone].) Time Involved in Meeting: I spent 90 minutes overall addressing this case: 15 in medical data review/discussion with referring provider(s) and/or preparation for the visit 60 in direct interaction with the patient/ which was the full 60 on Advance Care Planning/Goals of Care discussions as detailed above in note (must be >16min) 5 in subsequent review and synthesis of assessment and plan 10 in communicating with other providers regarding the patient's case: primary team Thank you for allowing us to participate in the ongoing care of this patient. Please don't hesitate to call or page with any additional concerns. Dr. Christie Caraballo DNP Director, Palliative Care late entry note completed 03/10 for visit done 03/09/23
[2023-03-10] MEDS: ADVANCED PROBIOTIC 1250 MG CAPSULE PO SCH (08:46)
[2023-03-10] MEDS: NYSTATIN SUSP 500,000 U/5 ML UDC PO SCH ×4 (08:46→21:40)
[2023-03-10] MEDS: MUPIROCIN 2% OINT 22 GM TUBE TOP SCH ×2 (08:46→21:40)
[2023-03-10] MEDS: DICLOFENAC SOD 1% GEL 100 GM TUBE EXT SCH ×4 (08:46→21:39)
[2023-03-10] MEDS: PANTOprazole 40 MG TAB PO SCH (08:47)
[2023-03-10] MEDS: CHOLECALCIFEROL 1,000 UNITS 25 MCG TAB PO SCH (08:48)
[2023-03-10] MEDS: FINASTERIDE 5 MG TAB PO SCH (08:48)
[2023-03-10] MEDS: MULTIVITAMIN TAB PO SCH (08:48)
[2023-03-10] MEDS: dilTIAZem HCL 180 MG CAPCR PO SCH (08:48)
[2023-03-10] MEDS: TOBRAMYCIN SULFATE VIAL INH SCH ×2 (09:07→19:21)
[2023-03-10] MEDS: oxyCODONE HCL IR 5 MG TAB (IMMEDIATE RELEASE) PO PRN (10:13)
--- NOTE | 2023-03-10 15:42 | Hospitalist Progress Note ---
Date of Service March 10, 2023 Assessment & Plan (1) Acute on chronic respiratory failure with hypoxia and hypercapnia: Plan: A combination of COVID-19 infection (dx 02/12/23), COPD exacerbation, bronchiectasis exacerbation, recent pseudomonas infection, presumptive MRSA pneumonia, acute/chronic diastolic CHF, etc. has had progressive respiratory failure due to the above factors. 03/01/23 -- significant worsening in hypoxia, with HFNC requirements rising to 35 L at that time. CTA chest on 03/02 with severe b/l infiltrates. No PEs seen at that time. Completed a course of antibiotics, Zyvox and Cefepime Currently on 5L through nasal canula Continue Budesonide, Dexamethasone, Formeterol, Levalbuterol, saline nasal wash Patient says he wants to go home on home oxygen, instead of SNF Palliative in discussion with family regarding discharge plans and goals of care (2) Pneumonia due to COVID-19 virus: Plan: dx 02/12/23 suspect COVID-19 infection contributed heavily to his worsening respiratory status since earlier this month off airborne precautions s/p 10 day course of decadron earlier this month ?developing post-COVID fibrosis on CT? in light of worsening status restarted IV steroids - dexamethasone 6mg IV q12h - 03/07. (3) C. difficile diarrhea: Plan: although toxin negative on testing he has had COPIOUS antibiotics in January and February for various infections he has had numerous stools, poor appetite, etc. reasonable to treat for c diff day #5 of vancomycin 125mg QID x 10 days contract precautions lactinex daily (4) COPD with exacerbation: Plan: appreciate pulmonary recommendations cont supportive care cont IV dexamethasone 6mg BID (5) Bronchiectasis with (acute) exacerbation: Plan: 2nd to pseudomonas see above cont tobramycin nebs BID, 30 days on and 20 days off (6) Acute kidney injury: Plan: 2nd to over-diuresis -- suspected cont to hold bumex BMP am cespedes in place (7) Acute on chronic diastolic (congestive) heart failure: Plan: in face of diuresis has developed ALFONSO hold further bumex (8) Hypothyroidism: Plan: most recent TSH wnl cont synthroid (9) Hypertension: Plan: controlled (10) Multifocal atrial tachycardia: Plan: cont CCB (11) Chronic indwelling Cespedes catheter: Plan: no issues (12) Pseudomonas aeruginosa infection: Plan: see above (13) BPH (benign prostatic hyperplasia): Plan: finasteride flomax coy (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: Plan: contact precautions treating for active MRSA infection of lungs with zyvox (this is presumed rather than confirmed); zyvox added due to acute worsening of his pulmonary status on 03/01 plan to stop zyvox after tomorrow's doses (15) DVT prophylaxis: Plan: heparin SC Plan patient wants to go homw with home oxygen, instead of snf Admission and Anticipated Discharge Date Admission Date: February 18, 2023 Subjective patient seen and examined, says his SOB is better today, now on 5L of oxygen, down from a high of 35L, says he would prefer to go home on oxygen Review of Systems Review of Systems: All systems reviewed are negative, apart from the ones contained in the history. Physical Exam Physical Exam: The patient is awake, alert and oriented 3, well developed and well nourished, in mild distress HEENT--PERRL, EOMI, mucous membranes and oropharynx mildly dry Neck--supple. No JVD. No bruits. Thyroid normal, trachea midline, no adenopathy. Heart--normal S1 and S2. No murmurs, rubs or gallops. Lungs--reduced air entry on auscultation, bibasilar crackles Abdomen--normal bowel sounds and soft. Mild epigastric and left sided abdominal pain Extremities--no cyanosis or clubbing. No edema. Dermatologic--normal skin turgor, normal color, no abnormal lymph nodes, no rash. Neurologic--cranial nerves II through XII grossly intact. Rheumatologic--normal range of motion. Psychiatric--normal affect. Results & Data Results & Data Vital Signs (Past 12 Hours) Vital Signs Temp Pulse Resp BP Pulse Ox O2 Del Method O2 Flow Rate 03/10/23 15:20 100 H 14 135/64 95 Nasal Cannula 03/10/23 13:08 105 H 20 94 Nasal Cannula 03/10/23 09:00 Nasal Cannula 5 03/10/23 09:08 106 H 20 94 Nasal Cannula 5 03/10/23 07:33 96 H 24 99 Nasal Cannula 5 03/10/23 07:01 97.5 F L 91 H 18 118/56 L 95 CPAP PG Care Time/CCT Total # of Minutes Spent Total Time Spent with Patient: Total time spent is greater than 50% in coordination of care (as documented) at patient's floor/unit and/or counseling patient: Coding Level of Care Code 66314 SUB INP/OBS CARE 2/35MIN Diagnoses Acute on chronic respiratory failure with hypoxia and hypercapnia J96.21; J96.22 Pneumonia due to COVID-19 virus U07.1; J12.82 C. difficile diarrhea A04.72 COPD with exacerbation J44.1 Bronchiectasis with (acute) exacerbation J47.1 Acute kidney injury N17.9 Acute on chronic diastolic (congestive) heart failure I50.33 Hypothyroidism E03.9 Hypothyroidism type: unspecified Hypertension I10 Multifocal atrial tachycardia I47.1 Chronic indwelling Cespedes catheter Z97.8 Pseudomonas aeruginosa infection A49.8 BPH (benign prostatic hyperplasia) N40.0 MRSA carrier Z22.322 DVT prophylaxis Z29.9 Time Spent (min) 35 (8) Hypothyroidism Hypothyroidism type: unspecified Qualified Code(s): E03.9 - Hypothyroidism, unspecified
[2023-03-10] MEDS: TAMSULOSIN HCL 0.4 MG CAP PO SCH (21:40)
[2023-03-10] MEDS: MELATONIN 3 MG TAB PO SCH (21:41)
[2023-03-10] MEDS: ALBUT/IPRATROP 3MG/0.5MG NEB 3 ML VIAL NEB PRN (23:39)
[2023-03-11] MEDS: RASPBERRY SYRUP 5 ML UDP PO SCH ×5 (01:18→23:05)
[2023-03-11] MEDS: VANCOMYCIN HCL 125 MG/2.5ML SOLN PO SCH ×5 (01:18→23:05)
[2023-03-11] MEDS: HEPARIN SOD 5,000 UNIT/0.5 ML VIAL SQ SCH ×3 (05:54→20:34)
[2023-03-11] MEDS: dexAMETHasone 6 MG in SYRINGE 0 ML IV SCH ×2 (05:55→17:58)
[2023-03-11] MEDS: LEVOTHYROXINE SODIUM 150 MCG TABLET PO SCH (05:55)
[2023-03-11] MEDS: FORMOTEROL 20 MCG/2 ML VIAL NEB SCH ×2 (07:31→19:27)
[2023-03-11] MEDS: BUDESONIDE 0.5 MG/2 ML VIAL (PULMICORT) NEB SCH ×2 (07:31→19:27)
[2023-03-11] MEDS: SODIUM CHLOR 7% 4 ML NEB NEB SCH ×2 (07:32→19:27)
[2023-03-11] MEDS: LEVALBUTEROL 1.25 MG/3 ML NEB NEB SCH ×3 (07:32→19:28)
[2023-03-11] MEDS: TOBRAMYCIN SULFATE VIAL INH SCH ×2 (07:33→19:44)
[2023-03-11] MEDS: CHOLECALCIFEROL 1,000 UNITS 25 MCG TAB PO SCH (08:47)
[2023-03-11] MEDS: dilTIAZem HCL 180 MG CAPCR PO SCH (08:48)
[2023-03-11] MEDS: FINASTERIDE 5 MG TAB PO SCH (08:49)
[2023-03-11] MEDS: ADVANCED PROBIOTIC 1250 MG CAPSULE PO SCH (08:49)
[2023-03-11] MEDS: MULTIVITAMIN TAB PO SCH (08:50)
[2023-03-11] MEDS: NYSTATIN SUSP 500,000 U/5 ML UDC PO SCH ×4 (08:50→20:32)
[2023-03-11] MEDS: PANTOprazole 40 MG TAB PO SCH (08:52)
[2023-03-11] MEDS: MUPIROCIN 2% OINT 22 GM TUBE TOP SCH ×2 (09:51→20:32)
[2023-03-11] MEDS: DICLOFENAC SOD 1% GEL 100 GM TUBE EXT SCH ×4 (09:51→20:31)
--- NOTE | 2023-03-11 15:39 | Hospitalist Progress Note ---
Date of Service March 11, 2023 Assessment & Plan (1) Acute on chronic respiratory failure with hypoxia and hypercapnia: Plan: A combination of COVID-19 infection (dx 02/12/23), COPD exacerbation, bronchiectasis exacerbation, recent pseudomonas infection, presumptive MRSA pneumonia, acute/chronic diastolic CHF, etc. has had progressive respiratory failure due to the above factors. 03/01/23 -- significant worsening in hypoxia, with HFNC requirements rising to 35 L at that time. CTA chest on 03/02 with severe b/l infiltrates. No PEs seen at that time. Completed a course of antibiotics, Zyvox and Cefepime Currently on 5L through nasal canula Continue Budesonide, Dexamethasone, Formeterol, Levalbuterol, saline nasal wash Patient says he wants to go home on home oxygen, instead of SNF Palliative in discussion with family regarding discharge plans and goals of care (2) Pneumonia due to COVID-19 virus: Plan: dx 02/12/23 suspect COVID-19 infection contributed heavily to his worsening respiratory status since earlier this month off airborne precautions s/p 10 day course of decadron earlier this month Currently on Dexamethasone, which seems to be helping (3) C. difficile diarrhea: Plan: although toxin negative on testing he has had COPIOUS antibiotics in January and February for various infections he has had numerous stools, poor appetite, etc. reasonable to treat for c diff day #6 of vancomycin 125mg QID x 10 days (4) COPD with exacerbation: Plan: appreciate pulmonary recommendations cont supportive care cont IV dexamethasone 6mg BID, Albuterol, Budesonide (5) Bronchiectasis with (acute) exacerbation: Plan: 2nd to pseudomonas see above cont tobramycin nebs BID, 30 days on and 20 days off (6) Acute kidney injury: Plan: 2nd to over-diuresis -- suspected cont to hold bumex BMP am cespedes in place (7) Acute on chronic diastolic (congestive) heart failure: Plan: in face of diuresis has developed ALFONSO hold further bumex (8) Hypothyroidism: Plan: most recent TSH wnl cont synthroid (9) Hypertension: Plan: controlled (10) Multifocal atrial tachycardia: Plan: cont CCB (11) Chronic indwelling Cespedes catheter: Plan: no issues (12) Pseudomonas aeruginosa infection: Plan: see above (13) BPH (benign prostatic hyperplasia): Plan: finasteride flomax coy (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: Plan: contact precautions treating for active MRSA infection of lungs with zyvox (this is presumed rather than confirmed); zyvox added due to acute worsening of his pulmonary status on 03/01 plan to stop zyvox after tomorrow's doses (15) DVT prophylaxis: Plan: heparin SC Plan patient wants to go home with home oxygen, instead of snf, discussions ongoing with family and palliative team Admission and Anticipated Discharge Date Admission Date: February 18, 2023 Subjective patient seen and examined, in mild respiratory distress, but said his SOB is much improved Review of Systems Review of Systems: All systems reviewed are negative, apart from the ones contained in the history. Physical Exam 2 Physical Exam: The patient is awake, alert and oriented 3, well developed and well nourished, in mild distress HEENT--PERRL, EOMI, mucous membranes and oropharynx mildly dry Neck--supple. No JVD. No bruits. Thyroid normal, trachea midline, no adenopathy. Heart--normal S1 and S2. No murmurs, rubs or gallops. Lungs--reduced air entry on auscultation, bibasilar crackles Abdomen--normal bowel sounds and soft. Mild epigastric and left sided abdominal pain Extremities--no cyanosis or clubbing. No edema. Dermatologic--normal skin turgor, normal color, no abnormal lymph nodes, no rash. Neurologic--cranial nerves II through XII grossly intact. Rheumatologic--normal range of motion. Psychiatric--normal affect. Results & Data Results & Data Vital Signs (Past 12 Hours) Vital Signs Temp Pulse Resp BP Pulse Ox O2 Del Method O2 Flow Rate 03/11/23 12:42 107 H 19 94 Nasal Cannula 5 03/11/23 08:35 Nasal Cannula 5 03/11/23 07:47 97.5 F L 102 H 18 142/72 H 96 CPAP 03/11/23 07:35 103 H 19 94 CPAP 4 PG Care Time/CCT Total # of Minutes Spent Total Time Spent with Patient: Total time spent is greater than 50% in coordination of care (as documented) at patient's floor/unit and/or counseling patient: Coding Level of Care Code 67453 SUB INP/OBS CARE 2/35MIN Diagnoses Acute on chronic respiratory failure with hypoxia and hypercapnia J96.21; J96.22 Pneumonia due to COVID-19 virus U07.1; J12.82 C. difficile diarrhea A04.72 COPD with exacerbation J44.1 Bronchiectasis with (acute) exacerbation J47.1 Acute kidney injury N17.9 Acute on chronic diastolic (congestive) heart failure I50.33 Hypothyroidism E03.9 Hypothyroidism type: unspecified Hypertension I10 Multifocal atrial tachycardia I47.1 Chronic indwelling Cespedes catheter Z97.8 Pseudomonas aeruginosa infection A49.8 BPH (benign prostatic hyperplasia) N40.0 MRSA carrier Z22.322 DVT prophylaxis Z29.9 Time Spent (min) 35 (8) Hypothyroidism Hypothyroidism type: unspecified Qualified Code(s): E03.9 - Hypothyroidism, unspecified
[2023-03-11] MEDS: MELATONIN 3 MG TAB PO SCH (20:32)
[2023-03-11] MEDS: TAMSULOSIN HCL 0.4 MG CAP PO SCH (20:34)
[2023-03-12] MEDS: LEVALBUTEROL 1.25 MG/3 ML NEB NEB SCH ×4 (00:11→19:25)
[2023-03-12] MEDS: VANCOMYCIN HCL 125 MG/2.5ML SOLN PO SCH ×4 (05:54→22:41)
[2023-03-12] MEDS: RASPBERRY SYRUP 5 ML UDP PO SCH ×4 (05:54→22:41)
[2023-03-12] MEDS: HEPARIN SOD 5,000 UNIT/0.5 ML VIAL SQ SCH ×3 (05:55→21:46)
[2023-03-12] MEDS: LEVOTHYROXINE SODIUM 150 MCG TABLET PO SCH (05:55)
[2023-03-12] MEDS: dexAMETHasone 6 MG in SYRINGE 0 ML IV SCH (05:56)
[2023-03-12] MEDS: BUDESONIDE 0.5 MG/2 ML VIAL (PULMICORT) NEB SCH ×2 (07:03→19:25)
[2023-03-12] MEDS: FORMOTEROL 20 MCG/2 ML VIAL NEB SCH ×2 (07:03→19:24)
[2023-03-12] MEDS: SODIUM CHLOR 7% 4 ML NEB NEB SCH ×2 (07:15→19:24)
[2023-03-12] MEDS: TOBRAMYCIN SULFATE VIAL INH SCH ×2 (07:25→19:24)
[2023-03-12] MEDS: oxyCODONE HCL IR 5 MG TAB (IMMEDIATE RELEASE) PO PRN ×2 (09:15→14:42)
[2023-03-12] MEDS: CHOLECALCIFEROL 1,000 UNITS 25 MCG TAB PO SCH (09:16)
[2023-03-12] MEDS: DICLOFENAC SOD 1% GEL 100 GM TUBE EXT SCH ×4 (09:17→20:25)
[2023-03-12] MEDS: dilTIAZem HCL 180 MG CAPCR PO SCH (09:17)
[2023-03-12] MEDS: FINASTERIDE 5 MG TAB PO SCH (09:18)
[2023-03-12] MEDS: ADVANCED PROBIOTIC 1250 MG CAPSULE PO SCH (09:18)
[2023-03-12] MEDS: MUPIROCIN 2% OINT 22 GM TUBE TOP SCH ×2 (09:19→20:40)
[2023-03-12] MEDS: MULTIVITAMIN TAB PO SCH (09:19)
[2023-03-12] MEDS: NYSTATIN SUSP 500,000 U/5 ML UDC PO SCH ×4 (09:19→20:26)
[2023-03-12] MEDS: PANTOprazole 40 MG TAB PO SCH (09:20)
[2023-03-12] MEDS ORDERED: MELATONIN 3 MG TAB PO PRN (10:21)
--- NOTE | 2023-03-12 11:43 | Hospitalist Progress Note ---
Date of Service March 12, 2023 Assessment & Plan (1) Acute on chronic respiratory failure with hypoxia and hypercapnia: Plan: A combination of COVID-19 infection (dx 02/12/23), COPD exacerbation, bronchiectasis exacerbation, recent pseudomonas infection, presumptive MRSA pneumonia, acute/chronic diastolic CHF, etc. has had progressive respiratory failure due to the above factors. 03/01/23 -- significant worsening in hypoxia, with HFNC requirements rising to 35 L at that time. CTA chest on 03/02 with severe b/l infiltrates. No PEs seen at that time. Completed a course of antibiotics, Zyvox and Cefepime Currently on 5L through nasal canula Continue Budesonide, Formeterol, Levalbuterol, saline nasal wash. Discontinue Dexamethasone Patient says he wants to go home on home oxygen, instead of SNF Palliative in discussion with family regarding discharge plans and goals of care Repeat chest x ray today for follow up (2) Pneumonia due to COVID-19 virus: Plan: dx 02/12/23 suspect COVID-19 infection contributed heavily to his worsening respiratory status since earlier this month off airborne precautions s/p 10 day course of decadron earlier this month Currently on Dexamethasone, which seems to be helping (3) C. difficile diarrhea: Plan: although toxin negative on testing he has had COPIOUS antibiotics in January and February for various infections he has had numerous stools, poor appetite, etc. reasonable to treat for c diff day #7 of vancomycin 125mg QID x 10 days No more diarrhera (4) COPD with exacerbation: Plan: appreciate pulmonary recommendations cont supportive care cont , Albuterol, Budesonide (5) Bronchiectasis with (acute) exacerbation: Plan: 2nd to pseudomonas see above cont tobramycin nebs BID, 30 days on and 20 days off (6) Acute kidney injury: Plan: 2nd to over-diuresis -- suspected cont to hold bumex BMP am cespedes in place (7) Acute on chronic diastolic (congestive) heart failure: Plan: in face of diuresis has developed ALFONSO hold further bumex recheck BMP tomorrow (8) Hypothyroidism: Plan: most recent TSH wnl cont synthroid (9) Hypertension: Plan: controlled (10) Multifocal atrial tachycardia: Plan: cont CCB (11) Chronic indwelling Cespedes catheter: Plan: no issues (12) Pseudomonas aeruginosa infection: Plan: see above (13) BPH (benign prostatic hyperplasia): Plan: finasteride flomax coy (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 Physical Exam Physical Exam: The patient is awake, alert and oriented 3, well developed and well nourished, in mild distress HEENT--PERRL, EOMI, mucous membranes and oropharynx mildly dry Neck--supple. No JVD. No bruits. Thyroid normal, trachea midline, no adenopathy. Heart--normal S1 and S2. No murmurs, rubs or gallops. Lungs--reduced air entry on auscultation, bibasilar crackles Abdomen--normal bowel sounds and soft. Mild epigastric and left sided abdominal pain Extremities--no cyanosis or clubbing. No edema. Dermatologic--normal skin turgor, normal color, no abnormal lymph nodes, no rash. Neurologic--cranial nerves II through XII grossly intact. Rheumatologic--normal range of motion. Psychiatric--normal affect. Results & Data Results & Data Vital Signs (Past 12 Hours) Vital Signs Temp Pulse Resp BP Pulse Ox O2 Del Method O2 Flow Rate 03/12/23 09:00 Nasal Cannula 5 03/12/23 07:59 97.7 F 107 H 21 149/74 H 94 Nasal Cannula 5 03/12/23 07:05 96 H 18 95 CPAP 5 03/12/23 00:11 102 H 92 CPAP 5 PG Care Time/CCT Total # of Minutes Spent Total Time Spent with Patient: Total time spent is greater than 50% in coordination of care (as documented) at patient's floor/unit and/or counseling patient: Coding Level of Care Code 32450 SUB INP/OBS CARE 2/35MIN Diagnoses Acute on chronic respiratory failure with hypoxia and hypercapnia J96.21; J96.22 Pneumonia due to COVID-19 virus U07.1; J12.82 C. difficile diarrhea A04.72 COPD with exacerbation J44.1 Bronchiectasis with (acute) exacerbation J47.1 Acute kidney injury N17.9 Acute on chronic diastolic (congestive) heart failure I50.33 Hypothyroidism E03.9 Hypothyroidism type: unspecified Hypertension I10 Multifocal atrial tachycardia I47.1 Chronic indwelling Cespedes catheter Z97.8 Pseudomonas aeruginosa infection A49.8 BPH (benign prostatic hyperplasia) N40.0 MRSA carrier Z22.322 DVT prophylaxis Z29.9 Time Spent (min) 35 (8) Hypothyroidism Hypothyroidism type: unspecified Qualified Code(s): E03.9 - Hypothyroidism, unspecified
--- NOTE | 2023-03-12 11:56 | XRay Report ---
XR shoulder RT min 2V routine CLINICAL HISTORY: pain TECHNIQUE: 3 views of the right shoulder were obtained. Comparison: Comparison is made to right shoulder arthroplasty 03/04/2023 FINDINGS: There is no evidence of an acute fracture. Degenerative changes are seen in the glenohumeral joint. T he overlying soft tissues are unremarkable. The visualized portions of the lungs are clear. IMPRESSION: Degenerative changes without evidence of acute abnormality. ACT 112: Negative or not required by law. Electronically signed by: Henry Ellsworth M.D. 03/12/2023 11:54 AM
--- NOTE | 2023-03-12 12:36 | XRay Report ---
XR chest 1V portable CLINICAL HISTORY: follow up TECHNIQUE: Single frontal radiograph of the chest was obtained. Comparison: Comparison is made to chest radiograph 03/07/2023 FINDINGS: No lines and tubes are seen. The cardiomediastinal silhouette is normal. Bilateral lower lung predomi nant airspace opacities are seen. Moderate bilateral pleural effusions are seen. IMPRESSION: 1. Multifocal airspace opacities have increased from prior exam. 2. Interval enlargement in moderate bilateral pleural effusions. ACT 112: Negative or not required by law. Electronically signed by: Henry Ellsworth M.D. 03/12/2023 12:35 PM
--- NOTE | 2023-03-12 14:53 | Palliative Care Progress Note ---
Date of Service March 12, 2023 Assessment & Plan (1) Palliative care by specialist: (2) Advanced care planning/counseling discussion: Plan: A 65min face to face meeting was held at bedside with patient, , sons dharmesh and abelcorbinr in law x1.. They have multiple concerns: * He feels he has inc shoulder pain from being turned and states he has hx has existing rotator tears bilat. * Patient and family would like for him to be seen by ortho, usually sees Dr Cross. I ordered that referral and sent reji text to Dr Cross as FYI per pt request. * Family had a fairly extensive list of concerns and things they were not happy about/concerns that they are hearing mixed messages i.e., "some providers think he is very sick then someone else says he's 'better' and can go home but look at home, look at all the care he needs -do you guys think our mom can honestly do all of this or that they'll have enough help to do everything? he hasn't been out of bed or done anything on his own for weeks!" I offered/they accepted referral to the patient advocate to come meet with them and patient - I have ordered this. I reassured them the medical teams are committed to assuring his well being and a safe discharge. There was reason to feel he might be able to go home since oxygen came down off high flow to now nasal cannula 5lpm--> his original goal expressed at last meeting was a desire to return home, which can be done (theoretically) on 5lpm NC. However patient now wants to try rehab because he is feeling "better" with more energy and appetite. I advised them I believe this may be steroid effect but if he wants to try rehab, it will be a rodent exterminator facility that he needs. Pt tells me he feels 2 weeks of rehab "will do the trick" and I advised him, gently, that 2 weeks would not fix his issues. Given his adv illness, muscle deconditioning, malnutrition etc., he will need months of therapy. * I advised them I will also let the manager nursing home, Marisela Avina - notified by Reji. * Patient advocate consult ordered I shared with them I reached out to Dr Burt earlier today and given patient desire to try and optimize as best he can, we felt it was worth a re attempt for LTACH, which will likely be best place for him: since he is no longer on high flow, he may now be accepted by [facility]. A very extensive and detailed conversation ensured. Son Dharmesh expressed concern for patient's goals for himself perhaps not aligning with reality of his medical situation. Dtr in law commented about frustration of pt being further from home for LTACH then if urgent medical care is needed he will be brought to a hospital that does not know him like [facility] and/or if he goes to [facility] he will use up his rehab days then family will have OOP costs and she feels this is not fair to pt/family as financial burden/what will pt lose in the process. Support and empathy provided lloyd with the frustrations of the healthcare systems and the deficits/burden it places on patients and their families. I have asked Clair[facility]OB[facility] to [facility]see what they [facility]. Patient/family willing to go to [facility] if [facility] says no, but they also understand [facility] may say no as well. We agreed that he would have to stay here until he has a facility that can accept him. I was very clear, explicitly clear, with pt and family that [facility] and provider/staff teams have no control over which facilities will accept or deny patient or if his insurance will approve the discharge to a facility once he is accepted. Patient and family all in agreement that if he worsens at any time from this point forward, whether it is in hospital, LTACH or SNF, then he wants to be transitioned to comfort care. (3) Dyspnea and respiratory abnormalities: Plan: I shared with pt and family the results of PT visit I requested from earlier this afternoon: Starting: SpO2 at rest 95%. SpO2 dropped to 75% after supine -> sit transfer. Sitting unsupported at EOB, SpO2 fluctuates from high 70s to mid 80s. He was not able to maintain 88% for longer than ~15-20" before desating again. He was unable to stand due to SOB. (4) Generalized weakness: (5) Acute on chronic respiratory failure with hypoxia and hypercapnia: (6) C. difficile diarrhea: (7) Tendonitis of both rotator cuffs: (8) Bronchiectasis with (acute) exacerbation: (9) Rotator cuff tear arthropathy of right shoulder: (10) COPD with exacerbation: (11) Acute on chronic diastolic (congestive) heart failure: (12) Pseudomonas aeruginosa infection: Plan * Numerous concerns voiced by pt and family - patient rep, unit mgr, CM and primary team notified by reji * Ortho consult for Right shoulder pain, Reji FYI message sent to Dr Cross at pt request/pt follows with Dr Cross * Current hope/plan: since oxygen is now off high flow and down to 5lpm NC, he would like a chance to try rehab and understands he would be better served at an LTACH over SNF rehab because the LTACH can manage fluctuating oxygen needs through the course of his admission there BUT the LTACH admittedly is not going to be local. CM will submit LTACH apps. * He understand he will remain in hospital until there is an accepting facility that can meet his needs and both he and family understand, very clearly, we have no control of where these facilities may be located/will possibly be farther from home. * Much appreciation to PT for bedside assessment, this was reviewed with pt/family in detail * He will remain in [facility] until he has placement that can manage his needs * If he acutely worsens, move to comfort care, but for now stay the current course. * Patient and family expressed great appreciation for discussion, review of clinical issues and dispo options. Thank you for allowing us to participate in the ongoing care of this patient. Please don't hesitate to call or page with any additional concerns. Dr. Christie Caraballo DNP Director, Palliative Care Admission and Anticipated Discharge Date Admission Date: February 18, 2023 Subjective pt asked for earlier meeting face to face in pt room. he feels his RUE was "pulled" during personal care earlier. now with inc Right shoulder pain and decreased ROM. no numbness or tingling. Appetite sharply increased with oral steroid, also feeling more energetic oxygen is now around 5lpm NC he wants to try rehab family concerned that his expectations of rehab vs most likely outcomes are not aligned. Review of Systems Review of Systems: All systems reviewed & are unremarkable except as noted in Subjective Physical Exam Physical Exam: Elderly male resting in bed appears a little uncomfortable holding RUE at 90 degrees , cannot move RUE without using left hand ROM to right sharply reduce though samples and repairs preparer remains intact no paresthesia no capsular discomfort with palpation EXCEPT for anteriorly on lower side, no obvious bony instability, ecchymoses or edema resp effort inc at rest, ++conversational dyspnea scattered ecchymoses friable skin numerous skin tears AAOx3 Results & Data Vital Signs (Past 12 Hours) Vital Signs Temp Pulse Resp BP Pulse Ox O2 Del Method O2 Flow Rate 03/12/23 13:19 118 H 26 H 90 Nasal Cannula 6 03/12/23 09:00 Nasal Cannula 5 03/12/23 07:59 36.5 C 107 H 21 149/74 H 94 Nasal Cannula 5 03/12/23 07:05 96 H 18 95 CPAP 5 Laboratory Results data reviewed Diagnostic Findings right shoulder imaging without acute fx PG Care Time/CCT Total # of Minutes Spent Total Time Spent: 125 Total Time Spent with Patient: Total time spent is greater than 50% in coordination of care (as documented) at patient's floor/unit and/or counseling patient: I spent 125 minutes overall addressing this complex, extensive case: 15 in medical data review/discussion with referring provider(s) and/or preparation for the visit 15 in direct interaction with the patient 65 Advance Care Planning/Goals of Care discussions as detailed above in note (must be >16min) 10 in subsequent review and synthesis of assessment and plan 20 in communicating with other providers regarding the patient's case: primary team, CM, nursing, patient advocate, nursing mgt Prolonged Care Time Prolonged Care Time: Yes Advanced Care Planning 25912 Advanced Care Planning 30 Min [id number] Advanced Care Planning Additional 30 Min [place] [address] SUB INP/OBS CARE 3/50MIN Patient Type Established Medical Decision Making High Complexity Diagnoses Palliative care by specialist Z51.5 Advanced care planning/counseling discussion Z71.89 Dyspnea and respiratory abnormalities R06.00; R06.89 Generalized weakness R53.1 Acute on chronic respiratory failure with hypoxia and hypercapnia J96.21; J96.22 C. difficile diarrhea A04.72 Tendonitis of both rotator cuffs M75.81; M75.82 Bronchiectasis with (acute) exacerbation J47.1 Rotator cuff tear arthropathy of right shoulder M75.101; M12.811 COPD with exacerbation J44.1 Acute on chronic diastolic (congestive) heart failure I50.33 Pseudomonas aeruginosa infection A49.8 Additional Codes Prolonged Care Time - Prolonged Care Time: Yes ([id number]) Advanced Care Planning - 14870 Advanced Care Planning 30 Min: 36624 Advanced Care Planning 30 Min ([id number]) Advanced Care Planning - 77149 Advanced Care Planning Additional 30 Min: 22655 Advanced Care Planning Additional 30 Min ([id number])
[2023-03-12] MEDS: MELATONIN 3 MG TAB PO SCH (20:26)
[2023-03-12] MEDS: TAMSULOSIN HCL 0.4 MG CAP PO SCH (20:26)
[2023-03-13] MEDS: LEVALBUTEROL 1.25 MG/3 ML NEB NEB SCH ×4 (00:25→19:47)
[2023-03-13] MEDS: LEVOTHYROXINE SODIUM 150 MCG TABLET PO SCH (05:36)
[2023-03-13] MEDS: HEPARIN SOD 5,000 UNIT/0.5 ML VIAL SQ SCH ×3 (05:36→21:56)
[2023-03-13] MEDS: RASPBERRY SYRUP 5 ML UDP PO SCH ×3 (05:36→20:05)
[2023-03-13] MEDS: VANCOMYCIN HCL 125 MG/2.5ML SOLN PO SCH ×3 (05:36→20:05)
[2023-03-13 06:47] LABS: Hematocrit (blood only) 34.2 % (42.0-52.0); Hemoglobin 10.8 g/dl (14.0-18.0); Mean Corpuscular Hemoglobin 26.4 pg (25.0-34.0); Mean Corpuscular Hgb Conc 31.6 g/dL (32.0-36.0); Mean Corpuscular Volume 83.6 fL (80.0-100.0); Nucleated RBC # (auto) 0.02 K/uL (0-0.12); Nucleated RBC % (auto) 0.2 %; Platelet Count 191 K/uL (130-400); RDW Coefficient of Variation 17.8 % (11.5-14.5); RDW Standard Deviation 53.4 fL (36.4-46.3); Red Blood Count 4.09 M/uL (4.70-6.10); White Blood Count 8.41 K/ul (4.8-10.8)
[2023-03-13] MEDS: SODIUM CHLOR 7% 4 ML NEB NEB SCH ×2 (07:06→19:47)
[2023-03-13] MEDS: BUDESONIDE 0.5 MG/2 ML VIAL (PULMICORT) NEB SCH ×2 (07:06→19:46)
[2023-03-13] MEDS: FORMOTEROL 20 MCG/2 ML VIAL NEB SCH ×2 (07:06→19:46)
[2023-03-13] MEDS: TOBRAMYCIN SULFATE VIAL INH SCH ×3 (07:07→20:35)
[2023-03-13 07:10] LABS: BUN Creatinine Ratio 44.4 (10-20); Calcium 8.5 mg/dl (8.6-10.3); Creatinine Clr Calc Pharmacy 44.2 ml/min; Est GFR (African American) 60.6 ml/min; Est GFR (Non-African American) 52.3 ml/min; Potassium 4.9 mmol/L (3.5-5.1)
[2023-03-13] MEDS: oxyCODONE HCL IR 5 MG TAB (IMMEDIATE RELEASE) PO PRN (07:48)
[2023-03-13] MEDS: BUMETANIDE 1 MG TAB PO SCH (09:09)
[2023-03-13] MEDS: CHOLECALCIFEROL 1,000 UNITS 25 MCG TAB PO SCH (09:11)
[2023-03-13] MEDS: DICLOFENAC SOD 1% GEL 100 GM TUBE EXT SCH ×4 (09:11→21:55)
[2023-03-13] MEDS: dilTIAZem HCL 180 MG CAPCR PO SCH (09:12)
[2023-03-13] MEDS: MULTIVITAMIN TAB PO SCH (09:13)
[2023-03-13] MEDS: FINASTERIDE 5 MG TAB PO SCH (09:13)
[2023-03-13] MEDS: ADVANCED PROBIOTIC 1250 MG CAPSULE PO SCH (09:13)
[2023-03-13] MEDS: MUPIROCIN 2% OINT 22 GM TUBE TOP SCH ×2 (09:14→21:56)
[2023-03-13] MEDS: PANTOprazole 40 MG TAB PO SCH (09:15)
[2023-03-13] MEDS: NYSTATIN SUSP 500,000 U/5 ML UDC PO SCH ×4 (09:15→21:55)
[2023-03-13] MEDS: KETOROLAC TROMETHAMINE 15 MG/ML VIAL IV PRN ×2 (11:32→20:12)
--- NOTE | 2023-03-13 14:22 | Hospitalist Progress Note ---
Date of Service March 13, 2023 Assessment & Plan (1) Acute on chronic respiratory failure with hypoxia and hypercapnia: Plan: A combination of COVID-19 infection (dx 02/12/23), COPD exacerbation, bronchiectasis exacerbation, recent pseudomonas infection, presumptive MRSA pneumonia, acute/chronic diastolic CHF, etc. has had progressive respiratory failure due to the above factors. 03/01/23 -- significant worsening in hypoxia, with HFNC requirements rising to 35 L at that time. CTA chest on 03/02 with severe b/l infiltrates. No PEs seen at that time. Completed a course of antibiotics, Zyvox and Cefepime Currently on 5L through nasal canula, occasionally 6L lying in bed, But desaturates when he tries ti sit up Continue Budesonide, Formeterol, Levalbuterol, saline nasal wash. Discontinue Dexamethasone Palliative in discussion with family regarding discharge plans and goals of care, LTAC vs SNF, however, if patient declines while still here, he will be made comfort care Repeat chest x ray 03/12 showed worsening multifocal airspace opacity and interval enlargement in moderate bilateral effusions (2) Pneumonia due to COVID-19 virus: Plan: dx 02/12/23 suspect COVID-19 infection contributed heavily to his worsening respiratory status since earlier this month off airborne precautions s/p 10 day course of decadron earlier this month Currently on Dexamethasone, which seems to be helping (3) C. difficile diarrhea: Plan: although toxin negative on testing he has had COPIOUS antibiotics in January and February for various infections he has had numerous stools, poor appetite, etc. reasonable to treat for c diff day #8 of vancomycin 125mg QID x 10 days No more diarrhera (4) COPD with exacerbation: Plan: appreciate pulmonary recommendations cont supportive care cont , Albuterol, Budesonide (5) Bronchiectasis with (acute) exacerbation: Plan: 2nd to pseudomonas see above cont tobramycin nebs BID, 30 days on and 20 days off (6) Acute kidney injury: Plan: resolved (7) Acute on chronic diastolic (congestive) heart failure: Plan: continue Bumex Monitor I/O, daily weights (8) Hypothyroidism: Plan: most recent TSH wnl cont synthroid (9) Hypertension: Plan: controlled (10) Multifocal atrial tachycardia: Plan: cont CCB (11) Chronic indwelling Cespedes catheter: Plan: no issues (12) Pseudomonas aeruginosa infection: Plan: see above (13) BPH (benign prostatic hyperplasia): Plan: finasteride flomax cespedes (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 Physical Exam Physical Exam: The patient is awake, alert and oriented 3, well developed and well nourished, in mild distress HEENT--PERRL, EOMI, mucous membranes and oropharynx mildly dry Neck--supple. No JVD. No bruits. Thyroid normal, trachea midline, no adenopathy. Heart--normal S1 and S2. No murmurs, rubs or gallops. Lungs--reduced air entry on auscultation, bibasilar crackles Abdomen--normal bowel sounds and soft. Mild epigastric and left sided abdominal pain Extremities--no cyanosis or clubbing. No edema. Dermatologic--normal skin turgor, normal color, no abnormal lymph nodes, no rash. Neurologic--cranial nerves II through XII grossly intact. Rheumatologic--normal range of motion. Psychiatric--normal affect. Results & Data Results & Data Vital Signs (Past 12 Hours) Vital Signs Temp Pulse Resp BP Pulse Ox O2 Del Method O2 Flow Rate 03/13/23 12:44 99 H 19 94 Nasal Cannula 6 03/13/23 08:42 97.7 F 118 H 18 133/81 94 Nasal Cannula 6 03/13/23 07:49 Nasal Cannula 5 PG Care Time/CCT Total # of Minutes Spent Total Time Spent with Patient: Total time spent is greater than 50% in coordination of care (as documented) at patient's floor/unit and/or counseling patient: Coding Level of Care Code 61444 SUB INP/OBS CARE 2/35MIN Diagnoses Acute on chronic respiratory failure with hypoxia and hypercapnia J96.21; J96.22 Pneumonia due to COVID-19 virus U07.1; J12.82 C. difficile diarrhea A04.72 COPD with exacerbation J44.1 Bronchiectasis with (acute) exacerbation J47.1 Acute kidney injury N17.9 Acute on chronic diastolic (congestive) heart failure I50.33 Hypothyroidism E03.9 Hypothyroidism type: unspecified Hypertension I10 Multifocal atrial tachycardia I47.1 Chronic indwelling Cespedes catheter Z97.8 Pseudomonas aeruginosa infection A49.8 BPH (benign prostatic hyperplasia) N40.0 MRSA carrier Z22.322 DVT prophylaxis Z29.9 Time Spent (min) 35 (8) Hypothyroidism Hypothyroidism type: unspecified Qualified Code(s): E03.9 - Hypothyroidism, unspecified
[2023-03-13] MEDS ORDERED: FUROSEMIDE 40 MG/4 ML VIAL IV ONE (14:26)
--- NOTE | 2023-03-13 15:42 | Palliative Care Progress Note ---
Date of Service March 13, 2023 Assessment & Plan (1) Palliative care by specialist: (2) Advanced care planning/counseling discussion: (3) Dyspnea and respiratory abnormalities: (4) Generalized weakness: (5) Acute on chronic respiratory failure with hypoxia and hypercapnia: (6) C. difficile diarrhea: (7) Rotator cuff tear arthropathy of right shoulder: (8) Tendonitis of both rotator cuffs: (9) Bronchiectasis with (acute) exacerbation: (10) COPD with exacerbation: (11) Acute on chronic diastolic (congestive) heart failure: (12) Pseudomonas aeruginosa infection: Plan Case d/w primary team, ortho to see pt later this afternoon No acute issues at time of my visit Lengthy and extensive family meeting yesterday with clear GOC noted. CM assisting with placement, we hav NOT heard back from any facilities as of 130pm today. Thank you for allowing us to participate in the ongoing care of this patient. Please don't hesitate to call or page with any additional concerns. Dr. Christie Caraballo DNP Director, Palliative Care Admission and Anticipated Discharge Date Admission Date: February 18, 2023 Subjective Arrived to see pt earlier this afternoon He is deeply asleep no family present at time of my visit SpO2 varying 86-91 during sleep, +mouth breathing, +nasal cannula in use Review of Systems Review of Systems: All systems reviewed & are unremarkable except as noted in Subjective Physical Exam Physical Exam: full exam deferred patient asleep, no family present resp even no resp effort/distress color pink RRR no JVD Results & Data Vital Signs (Past 12 Hours) Vital Signs Temp Pulse Resp BP Pulse Ox O2 Del Method O2 Flow Rate 03/13/23 12:44 99 H 19 94 Nasal Cannula 6 03/13/23 08:42 36.5 C 118 H 18 133/81 94 Nasal Cannula 6 03/13/23 07:49 Nasal Cannula 5 Laboratory Results data reviewed Diagnostic Findings data reviewed PG Care Time/CCT Total # of Minutes Spent Total Time Spent: 40 Total Time Spent with Patient: Total time spent is greater than 50% in coordination of care (as documented) at patient's floor/unit and/or counseling patient: Coding [place] [address] SUB INP/OBS CARE 2/35MIN Patient Type Established History Expanded Problem Focused Exam Expanded Problem Focused Medical Decision Making High Complexity Diagnoses Palliative care by specialist Z51.5 Advanced care planning/counseling discussion Z71.89 Dyspnea and respiratory abnormalities R06.00; R06.89 Generalized weakness R53.1 Acute on chronic respiratory failure with hypoxia and hypercapnia J96.21; J96.22 C. difficile diarrhea A04.72 Rotator cuff tear arthropathy of right shoulder M75.101; M12.811 Tendonitis of both rotator cuffs M75.81; M75.82 Bronchiectasis with (acute) exacerbation J47.1 COPD with exacerbation J44.1 Acute on chronic diastolic (congestive) heart failure I50.33 Pseudomonas aeruginosa infection A49.8
[2023-03-13] MEDS ORDERED: TRIAMCINOLONE ACET 40 MG/ML VIAL IA ONE (16:59)
[2023-03-13] MEDS ORDERED: BUPIVACAINE/EPINEPHRINE 0.25% 1:200,000 30 ML VIAL INFIL ONE (16:59)
--- NOTE | 2023-03-13 17:05 | Orthopedic Consultation ---
Date of Service March 13, 2023 Assessment & Plan (1) Rotator cuff tear arthropathy of right shoulder: I think they just reaggravated a pre-existing condition when he was pulled by the nursing staff. I explained this to him and his . He is dealing with cuff tear arthropathy of his right shoulder. I ordered up a cortisone injection for me to give to his shoulder tomorrow. I plan to give him the shot tomorrow morning. He is not a surgical candidate at this time. History of Present Illness Reason for Consultation: Right shoulder pain. Requesting Physician: . Attending Physician: Te Bustillo MD Isma is a pleasant 87-year-old male who is well-known to me. He has been dealing with cuff tear arthropathy of both shoulders for years. I am given him injections in the shoulders. The last injection was in October 2022. He has been admitted to the hospital with multiple medical issues. The nursing staff was trying to transfer him or roll him yesterday when they pulled on his right arm. He began having an increase of right arm pain. X-rays were taken and were negative. Orthopedics was consulted to evaluate and treat.. Allergies Allergy/AdvReac Type Severity Reaction Status Date / Time clarithromycin Allergy Intermediate RASH Verified 02/18/23 15:22 Home Medications Medication Instructions Recorded Confirmed Type magnesium 250 mg tablet 250 mg PO 3XWK 08/02/18 02/18/23 History cholecalciferol (vitamin D3) 25 1,000 units PO QAM 05/30/19 02/18/23 History mcg (1,000 unit) tablet multivitamin 1 tab PO QAM 09/04/20 02/18/23 History promethazine-DM 6.25 mg-15 mg/5 mL 5 ml PO Q6H PRN cough #473 mL 09/24/21 02/18/23 Rx oral syrup levothyroxine 150 mcg tablet 150 mcg PO QAM #90 tabs 02/03/22 02/18/23 Rx diltiazem HCl 180 mg capsule,24 180 mg PO QAM 90 days #90 caps 04/22/22 02/18/23 Rx hr,extended release (Tiazac) fluticasone fur. 100 mcg-umeclid 1 inh inhalation QAM #3 Inhalers 08/26/22 02/18/23 Rx 62.5 mcg-vilant 25 mcg inhalat.powder (Trelegy Ellipta) albuterol sulfate 90 mcg/actuation 2 puff inhalation Q6H #8.5 grams 10/17/22 02/18/23 Rx aerosol inhaler (Ventolin HFA) ipratropium 0.5 mg-albuterol 3 mg 3 ml NEB Q6H PRN 10/17/22 02/18/23 Rx (2.5 mg base)/3 mL nebulization cough/wheeze/dyspnea #1 box soln diclofenac sodium 1 % topical gel 2 g topical QID 10/23/22 02/18/23 History omeprazole 40 mg capsule,delayed 40 mg PO DAILY 11/05/22 02/18/23 History release mupirocin 2 % topical ointment 1 applic topical BID #22 grams 11/10/22 02/18/23 Rx oxycodone 5 mg tablet 2.5 mg PO Q4H PRN Pain #30 tabs 11/20/22 02/18/23 Rx potassium chloride 20 mEq 20 meq PO DAILY #72 tabs 12/12/22 02/18/23 Rx tablet,extended release(part/cryst) Oxygen Home 12/31/22 02/18/23 History bumetanide 2 mg tablet 2 mg PO BID 12/31/22 02/18/23 History sennosides 8.6 mg tablet (Senokot) 8.6 mg PO QAM 12/31/22 02/18/23 History sodium chloride 3 % for 4 ml inhalation BID #120 mL 01/02/23 02/18/23 Rx nebulization ciclopirox 8 % topical solution 1 applic topical DAILY #6.6 mL 01/15/23 02/18/23 Rx finasteride 5 mg tablet 5 mg PO DAILY #30 tabs 01/21/23 02/18/23 Rx tobramycin 300 mg/5 mL in 0.225 % 300 mg (5 mL) inhalation BID 28 02/02/23 02/18/23 Rx sodium chloride for nebulization days #280 mL (Josue) acetaminophen 325 mg tablet 650 mg PO Q6H PRN FEVER/PAIN 02/11/23 02/18/23 History (Tylenol) polyethylene glycol 3350 17 gram 17 g PO DAILY PRN Constipation 02/11/23 02/18/23 History oral powder packet (Miralax) tamsulosin 0.4 mg capsule 0.4 mg PO HS 02/11/23 02/18/23 History dexamethasone 6 mg tablet 6 mg PO DAILY #7 tabs 02/14/23 02/18/23 Rx Past Med/Surg History Medical History Acute and chronic respiratory failure Acute on chronic diastolic (congestive) heart failure Acute on chronic kidney failure Advanced care planning/counseling discussion Avulsion injury of right elbow region Back problem BPH (benign prostatic hyperplasia) Bronchiectasis with (acute) exacerbation Candidal diaper rash Cellulitis of both lower extremities Cellulitis of left leg Cellulitis of left lower extremity CHI (closed head injury) Chronic obstructive pulmonary disease Chronic respiratory failure with hypoxia Closed hip fracture Contusion of elbow Contusion of face COPD (chronic obstructive pulmonary disease) Discussion about advance care planning held with family member Dyspnea and respiratory abnormalities Early satiety Elevated troponin Fluid retention in legs GERD (gastroesophageal reflux disease) Hematoma of right lower extremity History of bronchitis Hypernatremia Hypertension Hypothyroidism Left lumbar radiculopathy Leg length discrepancy Livedo reticularis Lumbar spinal stenosis Lymphedema MRSA (methicillin resistant Staphylococcus aureus) Multifocal pneumonia On home oxygen therapy 02 2LPM AT Osteoarthritis Palliative care by specialist Personal history of MRSA (methicillin resistant Staphylococcus aureus) Pulmonary nodule Sepsis Skin tear Sleep apnea cpap Spinal stenosis Syncope Urethral stricture Vitamin D deficiency Wheezing Surgical History History of cardiac cath 12/2019 - [place] - increased edema - no stents/angioplasty History of cholecystectomy History of colonoscopy History of herniorrhaphy left inguinal History of partial knee replacement left History of tonsillectomy History of tooth extraction Hx of surgical procedure LEFT FEMUR FX WITH REPAIR Family History Mother Cerebral atherosclerosis Father Diverticulosis Other No significant family history Denies family history of Ovarian cancer Prostate cancer Myocardial infarction Breast cancer Colorectal cancer Social History Smoking Status: Former smoker Tobacco Type: Cigarettes Age Started Using Tobacco: 22; packs per day: 1; Cigarettes Per Day: 20; Second Hand Exposure: No; Do You Dip or Chew Tobacco: No; Hx Alcohol Use: No Hx Substance Use: No Preferred Language: Citizen Of [place] Communication Ability: Effective Visual Impairment: No Limitations Hearing Ability: Normal Fuel Agent Required: No Beliefs That Will Affect Care: Cheondoism marital status: Current Living Situation: Spouse current occupational status: retired Feels Safe at Home: Yes Dental Care, Regularly: No Physical Activity Frequency: 1-2 Times per Week Seatbelt Use: always Sunscreen Use: Yes Assistive Devices: Oxygen - at Night and Walker Review of Systems All systems reviewed & are unremarkable except as noted in HPI & below. Physical Exam On physical examination of the right shoulder, he only has about 60 degrees of forward elevation 40 degrees of abduction. He has pain with range of motion. He has a little bit of ecchymosis around the shoulder.. Constitutional WD/WN, vitals as above Eyes PERRL, conjunctivae normal, anicteric sclerae ENMT external ear and nose normal, oropharynx normal Neck trachea midline, no thyromegaly Respiratory normal respiratory effort, lungs clear to auscultation Cardiovascular RRR, no murmur, no edema Gastrointestinal (Abdomen) normal bowel sounds, soft, nontender, no hepatosplenomegaly Skin no rashes, warm and dry Psychiatric A+Ox3, euthymic affect Results & Data Results & Data Laboratory Results . Diagnostic Findings X-rays of the right shoulder show signs of cuff tear arthropathy with superior migration of the humeral head of the glenoid and some glenohumeral arthritis.. PG Care Time/CCT Total # of Minutes Spent Total Time Spent with Patient: Total time spent is greater than 50% in coordination of care (as documented) at patient's floor/unit and/or counseling patient: Coding Level of Care Code 61302 IN/OBS CONSULT LVL 4,60M Diagnoses Rotator cuff tear arthropathy of right shoulder M75.101; M12.811
[2023-03-13] MEDS: MELATONIN 3 MG TAB PO SCH (21:55)
[2023-03-13] MEDS: TAMSULOSIN HCL 0.4 MG CAP PO SCH (21:55)
[2023-03-14] MEDS: LEVALBUTEROL 1.25 MG/3 ML NEB NEB SCH ×4 (00:02→19:17)
[2023-03-14] MEDS: RASPBERRY SYRUP 5 ML UDP PO SCH ×4 (00:59→18:18)
[2023-03-14] MEDS: VANCOMYCIN HCL 125 MG/2.5ML SOLN PO SCH ×4 (00:59→18:19)
[2023-03-14] MEDS: KETOROLAC TROMETHAMINE 15 MG/ML VIAL IV PRN (05:48)
[2023-03-14] MEDS: HEPARIN SOD 5,000 UNIT/0.5 ML VIAL SQ SCH ×3 (05:49→21:22)
[2023-03-14] MEDS: LEVOTHYROXINE SODIUM 150 MCG TABLET PO SCH (05:49)
[2023-03-14] MEDS: FORMOTEROL 20 MCG/2 ML VIAL NEB SCH ×2 (07:11→19:16)
[2023-03-14] MEDS: BUDESONIDE 0.5 MG/2 ML VIAL (PULMICORT) NEB SCH ×2 (07:11→19:17)
[2023-03-14] MEDS: SODIUM CHLOR 7% 4 ML NEB NEB SCH ×2 (07:12→19:17)
[2023-03-14] MEDS: TOBRAMYCIN SULFATE VIAL INH SCH ×2 (07:12→20:16)
[2023-03-14] MEDS: MULTIVITAMIN TAB PO SCH (09:10)
[2023-03-14] MEDS: PANTOprazole 40 MG TAB PO SCH (09:10)
[2023-03-14] MEDS: BUMETANIDE 1 MG TAB PO SCH (09:10)
[2023-03-14] MEDS: CHOLECALCIFEROL 1,000 UNITS 25 MCG TAB PO SCH (09:10)
[2023-03-14] MEDS: FINASTERIDE 5 MG TAB PO SCH (09:10)
[2023-03-14] MEDS: ADVANCED PROBIOTIC 1250 MG CAPSULE PO SCH (09:10)
[2023-03-14] MEDS: dilTIAZem HCL 180 MG CAPCR PO SCH (09:12)
[2023-03-14] MEDS: NYSTATIN SUSP 500,000 U/5 ML UDC PO SCH ×4 (09:16→21:11)
[2023-03-14] MEDS: DICLOFENAC SOD 1% GEL 100 GM TUBE EXT SCH ×4 (09:17→21:11)
--- NOTE | 2023-03-14 09:18 | Orthopedic Progress Note ---
Date of Service March 14, 2023 Assessment & Plan (1) Rotator cuff tear arthropathy of right shoulder: He has been dealing with cuff tear arthropathy of his right shoulder for years. I think the incident with the nurse was just an acute aggravation of a pre- existing condition. His shoulder is fairly sore. The x-rays show signs of cuff tear arthropathy. I gave him a right posterior subacromial injection at bedside today. Hopefully calm down some of his symptoms. He can follow-up with me in the office on as-needed basis. Poncho Ashby was seen and examined at bedside this morning. Overall is doing okay. He still has some pain in the right shoulder. He was hoping to have an injection of his right shoulder today.. Review of Systems All systems reviewed & are unremarkable except as noted in HPI & below. Physical Exam On physical examination of his right shoulder, he has about 60 degrees of forward elevation and 60 degrees of abduction. He has weakness throughout.. Results & Data Results & Data Laboratory Results . Diagnostic Findings . PG Care Time/CCT Total # of Minutes Spent Total Time Spent with Patient: Total time spent is greater than 50% in coordination of care (as documented) at patient's floor/unit and/or counseling patient: Coding Level of Care Code 82002 Post Operative Follow-Up Diagnoses Rotator cuff tear arthropathy of right shoulder M75.101; M12.811
[2023-03-14] MEDS: MUPIROCIN 2% OINT 22 GM TUBE TOP SCH ×2 (09:51→21:11)
--- NOTE | 2023-03-14 12:34 | Hospitalist Progress Note ---
Date of Service March 14, 2023 Assessment & Plan (1) Acute on chronic respiratory failure with hypoxia and hypercapnia: Plan: A combination of COVID-19 infection (dx 02/12/23), COPD exacerbation, bronchiectasis exacerbation, recent pseudomonas infection, presumptive MRSA pneumonia, acute/chronic diastolic CHF, etc. has had progressive respiratory failure due to the above factors. 03/01/23 -- significant worsening in hypoxia, with HFNC requirements rising to 35 L at that time. CTA chest on 03/02 with severe b/l infiltrates. No PEs seen at that time. Completed a course of antibiotics, Zyvox and Cefepime Currently on 5L through nasal canula, occasionally 6L lying in bed, But desaturates when he tries ti sit up Continue Budesonide, Formeterol, Levalbuterol, saline nasal wash. Discontinue Dexamethasone Palliative in discussion with family regarding discharge plans and goals of care, LTAC vs SNF, however, if patient declines while still here, he will be made comfort care Repeat chest x ray 03/12 showed worsening multifocal airspace opacity and interval enlargement in moderate bilateral effusions (2) Pneumonia due to COVID-19 virus: Plan: dx 02/12/23 suspect COVID-19 infection contributed heavily to his worsening respiratory status since earlier this month off airborne precautions s/p 10 day course of decadron earlier this month Currently on Dexamethasone, which seems to be helping (3) C. difficile diarrhea: Plan: although toxin negative on testing he has had COPIOUS antibiotics in January and February for various infections he has had numerous stools, poor appetite, etc. reasonable to treat for c diff day #9 of vancomycin 125mg QID x 10 days No more diarrhera (4) COPD with exacerbation: Plan: appreciate pulmonary recommendations cont supportive care cont , Albuterol, Budesonide (5) Bronchiectasis with (acute) exacerbation: Plan: 2nd to pseudomonas see above cont tobramycin nebs BID, 30 days on and 20 days off (6) Acute kidney injury: Plan: resolved (7) Acute on chronic diastolic (congestive) heart failure: Plan: continue Bumex Monitor I/O, daily weights (8) Hypothyroidism: Plan: most recent TSH wnl cont synthroid (9) Hypertension: Plan: controlled (10) Multifocal atrial tachycardia: Plan: cont CCB (11) Chronic indwelling Cespedes catheter: Plan: no issues (12) Pseudomonas aeruginosa infection: Plan: see above (13) BPH (benign prostatic hyperplasia): Plan: finasteride flomax cespedes (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 Physical Exam Physical Exam: The patient is awake, alert and oriented 3, well developed and well nourished, in mild distress HEENT--PERRL, EOMI, mucous membranes and oropharynx mildly dry Neck--supple. No JVD. No bruits. Thyroid normal, trachea midline, no adenopathy. Heart--normal S1 and S2. No murmurs, rubs or gallops. Lungs--reduced air entry on auscultation, bibasilar crackles Abdomen--normal bowel sounds and soft. Mild epigastric and left sided abdominal pain Extremities--no cyanosis or clubbing. No edema. Dermatologic--normal skin turgor, normal color, no abnormal lymph nodes, no rash. Neurologic--cranial nerves II through XII grossly intact. Rheumatologic--normal range of motion. Psychiatric--normal affect. Results & Data Results & Data Vital Signs (Past 12 Hours) Vital Signs Temp Pulse Resp BP Pulse Ox O2 Del Method O2 Flow Rate 03/14/23 09:52 Nasal Cannula 6 03/14/23 07:41 97.7 F 105 H 18 139/80 95 Nasal Cannula 5 03/14/23 07:12 101 H 25 H 95 Nasal Cannula 5 PG Care Time/CCT Total # of Minutes Spent Total Time Spent with Patient: Total time spent is greater than 50% in coordination of care (as documented) at patient's floor/unit and/or counseling patient: Coding Level of Care Code 19349 SUB INP/OBS CARE 2/35MIN Diagnoses Acute on chronic respiratory failure with hypoxia and hypercapnia J96.21; J96.22 Pneumonia due to COVID-19 virus U07.1; J12.82 C. difficile diarrhea A04.72 COPD with exacerbation J44.1 Bronchiectasis with (acute) exacerbation J47.1 Acute kidney injury N17.9 Acute on chronic diastolic (congestive) heart failure I50.33 Hypothyroidism E03.9 Hypothyroidism type: unspecified Hypertension I10 Multifocal atrial tachycardia I47.1 Chronic indwelling Cespedes catheter Z97.8 Pseudomonas aeruginosa infection A49.8 BPH (benign prostatic hyperplasia) N40.0 MRSA carrier Z22.322 DVT prophylaxis Z29.9 Shoulder symptoms with history of shoulder arthroplasty R29.91; Z98.890 Time Spent (min) 35 (8) Hypothyroidism Hypothyroidism type: unspecified Qualified Code(s): E03.9 - Hypothyroidism, unspecified
[2023-03-14] MEDS ORDERED: FUROSEMIDE 40 MG/4 ML VIAL IV ONE (14:07)
[2023-03-14] MEDS: MELATONIN 3 MG TAB PO SCH (21:11)
[2023-03-14] MEDS: TAMSULOSIN HCL 0.4 MG CAP PO SCH (21:21)
[2023-03-15] MEDS: LEVALBUTEROL 1.25 MG/3 ML NEB NEB SCH ×4 (00:26→19:33)
[2023-03-15] MEDS: RASPBERRY SYRUP 5 ML UDP PO SCH ×3 (00:39→11:57)
[2023-03-15] MEDS: VANCOMYCIN HCL 125 MG/2.5ML SOLN PO SCH ×3 (00:39→11:57)
[2023-03-15] MEDS: HEPARIN SOD 5,000 UNIT/0.5 ML VIAL SQ SCH ×3 (06:04→20:37)
[2023-03-15] MEDS: LEVOTHYROXINE SODIUM 150 MCG TABLET PO SCH (06:04)
[2023-03-15] MEDS: oxyCODONE HCL IR 5 MG TAB (IMMEDIATE RELEASE) PO PRN ×2 (06:43→10:55)
[2023-03-15] MEDS: FORMOTEROL 20 MCG/2 ML VIAL NEB SCH ×2 (07:00→19:33)
[2023-03-15] MEDS: TOBRAMYCIN SULFATE VIAL INH SCH ×2 (07:00→20:03)
[2023-03-15] MEDS: BUDESONIDE 0.5 MG/2 ML VIAL (PULMICORT) NEB SCH ×2 (07:01→19:33)
[2023-03-15] MEDS: SODIUM CHLOR 7% 4 ML NEB NEB SCH ×2 (07:01→19:33)
[2023-03-15] MEDS: DICLOFENAC SOD 1% GEL 100 GM TUBE EXT SCH ×4 (08:16→20:37)
[2023-03-15] MEDS: BUMETANIDE 1 MG TAB PO SCH (08:16)
[2023-03-15] MEDS: CHOLECALCIFEROL 1,000 UNITS 25 MCG TAB PO SCH (08:16)
[2023-03-15] MEDS: MUPIROCIN 2% OINT 22 GM TUBE TOP SCH ×2 (08:17→20:39)
[2023-03-15] MEDS: FINASTERIDE 5 MG TAB PO SCH (08:17)
[2023-03-15] MEDS: MULTIVITAMIN TAB PO SCH (08:17)
[2023-03-15] MEDS: PANTOprazole 40 MG TAB PO SCH (08:17)
[2023-03-15] MEDS: ADVANCED PROBIOTIC 1250 MG CAPSULE PO SCH (08:17)
[2023-03-15] MEDS: NYSTATIN SUSP 500,000 U/5 ML UDC PO SCH ×4 (08:17→20:37)
[2023-03-15] MEDS: dilTIAZem HCL 180 MG CAPCR PO SCH (08:17)
[2023-03-15] MEDS ORDERED: FUROSEMIDE 40 MG/4 ML VIAL IV ONE (11:18)
--- NOTE | 2023-03-15 11:37 | Hospitalist Progress Note ---
Date of Service March 15, 2023 Assessment & Plan (1) Acute on chronic respiratory failure with hypoxia and hypercapnia: Plan: A combination of COVID-19 infection (dx 02/12/23), COPD exacerbation, bronchiectasis exacerbation, recent pseudomonas infection, presumptive MRSA pneumonia, acute/chronic diastolic CHF, etc. has had progressive respiratory failure due to the above factors. 03/01/23 -- significant worsening in hypoxia, with HFNC requirements rising to 35 L at that time. CTA chest on 03/02 with severe b/l infiltrates. No PEs seen at that time. Completed a course of antibiotics, Zyvox and Cefepime Currently on 5L through nasal canula, occasionally 6L lying in bed, But desaturates when he tries ti sit up Continue Budesonide, Formeterol, Levalbuterol, saline nasal wash. Discontinue Dexamethasone Palliative in discussion with family regarding discharge plans and goals of care, LTAC vs SNF, however, if patient declines while still here, he will be made comfort care Repeat chest x ray 03/12 showed worsening multifocal airspace opacity and interval enlargement in moderate bilateral effusions Will add IV Lasix to his PO Bumex (2) Pneumonia due to COVID-19 virus: Plan: dx 02/12/23 suspect COVID-19 infection contributed heavily to his worsening respiratory status since earlier this month off airborne precautions s/p 10 day course of decadron Last procalcitonin on 03/13 was normal (3) C. difficile diarrhea: Plan: although toxin negative on testing he has had COPIOUS antibiotics in January and February for various infections he has had numerous stools, poor appetite, etc. reasonable to treat for c diff last dose of PO vancomycin today (4) COPD with exacerbation: Plan: appreciate pulmonary recommendations cont supportive care cont , Albuterol, Budesonide (5) Bronchiectasis with (acute) exacerbation: Plan: 2nd to pseudomonas see above cont tobramycin nebs BID, 30 days on and 20 days off (6) Acute kidney injury: Plan: resolved (7) Acute on chronic diastolic (congestive) heart failure: Plan: continue Bumex Monitor I/O, daily weights (8) Hypothyroidism: Plan: most recent TSH wnl cont synthroid (9) Hypertension: Plan: controlled (10) Multifocal atrial tachycardia: Plan: cont CCB (11) Chronic indwelling Cespedes catheter: Plan: no issues (12) Pseudomonas aeruginosa infection: Plan: see above (13) BPH (benign prostatic hyperplasia): Plan: finasteride flomax cespedes (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 Admission and Anticipated Discharge Date Admission Date: February 18, 2023 Subjective patient seen and examined, says his shortness of breath is the same Physical Exam Physical Exam: The patient is awake, alert and oriented 3, well developed and well nourished, in mild distress HEENT--PERRL, EOMI, mucous membranes and oropharynx mildly dry Neck--supple. No JVD. No bruits. Thyroid normal, trachea midline, no adenopathy. Heart--normal S1 and S2. No murmurs, rubs or gallops. Lungs--reduced air entry on auscultation, bibasilar crackles Abdomen--normal bowel sounds and soft. Extremities--no cyanosis or clubbing. No edema. right shoulder tenderness on abduction Dermatologic--normal skin turgor, normal color, no abnormal lymph nodes, no rash. Neurologic--cranial nerves II through XII grossly intact. Rheumatologic--normal range of motion. Psychiatric--normal affect. Results & Data Results & Data Vital Signs (Past 12 Hours) Vital Signs Temp Pulse Resp BP Pulse Ox O2 Del Method O2 Flow Rate 03/15/23 08:15 Nasal Cannula 5 03/15/23 07:37 97.7 F 114 H 16 145/84 H 94 Nasal Cannula 5 03/15/23 07:01 108 H 22 98 Nasal Cannula 5 03/15/23 00:29 107 H 18 96 CPAP 4 PG Care Time/CCT Total # of Minutes Spent Total Time Spent with Patient: Total time spent is greater than 50% in coordination of care (as documented) at patient's floor/unit and/or counseling patient: Coding Level of Care Code 52425 SUB INP/OBS CARE 2/35MIN Diagnoses Acute on chronic respiratory failure with hypoxia and hypercapnia J96.21; J96.22 Pneumonia due to COVID-19 virus U07.1; J12.82 C. difficile diarrhea A04.72 COPD with exacerbation J44.1 Bronchiectasis with (acute) exacerbation J47.1 Acute kidney injury N17.9 Acute on chronic diastolic (congestive) heart failure I50.33 Hypothyroidism E03.9 Hypothyroidism type: unspecified Hypertension I10 Multifocal atrial tachycardia I47.1 Chronic indwelling Cespedes catheter Z97.8 Pseudomonas aeruginosa infection A49.8 BPH (benign prostatic hyperplasia) N40.0 MRSA carrier Z22.322 DVT prophylaxis Z29.9 Unspecified arthropathy, shoulder region M19.019 Time Spent (min) 35 (8) Hypothyroidism Hypothyroidism type: unspecified Qualified Code(s): E03.9 - Hypothyroidism, unspecified
[2023-03-15] MEDS ORDERED: KETOROLAC TROMETHAMINE 15 MG/ML VIAL IV ONE (12:17)
[2023-03-15] MEDS: MELATONIN 3 MG TAB PO SCH (20:37)
[2023-03-15] MEDS: TAMSULOSIN HCL 0.4 MG CAP PO SCH (20:38)
[2023-03-16] MEDS: LEVALBUTEROL 1.25 MG/3 ML NEB NEB SCH ×4 (01:31→19:48)
[2023-03-16] MEDS: HEPARIN SOD 5,000 UNIT/0.5 ML VIAL SQ SCH ×3 (05:50→21:35)
[2023-03-16] MEDS: LEVOTHYROXINE SODIUM 150 MCG TABLET PO SCH (05:51)
[2023-03-16] MEDS: TOBRAMYCIN SULFATE VIAL INH SCH ×2 (07:06→19:48)
[2023-03-16] MEDS: BUDESONIDE 0.5 MG/2 ML VIAL (PULMICORT) NEB SCH ×2 (07:28→19:48)
[2023-03-16] MEDS: FORMOTEROL 20 MCG/2 ML VIAL NEB SCH ×2 (07:28→19:48)
[2023-03-16] MEDS: SODIUM CHLOR 7% 4 ML NEB NEB SCH ×2 (07:28→19:48)
[2023-03-16] MEDS: ACETAMINOPHEN 325 MG TAB PO PRN (07:39)
[2023-03-16] MEDS: PANTOprazole 40 MG TAB PO SCH (09:36)
[2023-03-16] MEDS: FINASTERIDE 5 MG TAB PO SCH (09:37)
[2023-03-16] MEDS: ADVANCED PROBIOTIC 1250 MG CAPSULE PO SCH (09:37)
[2023-03-16] MEDS: MULTIVITAMIN TAB PO SCH (09:37)
[2023-03-16] MEDS: dilTIAZem HCL 180 MG CAPCR PO SCH (09:37)
[2023-03-16] MEDS: DICLOFENAC SOD 1% GEL 100 GM TUBE EXT SCH ×4 (09:38→21:34)
[2023-03-16] MEDS: BUMETANIDE 1 MG TAB PO SCH (09:38)
[2023-03-16] MEDS: MUPIROCIN 2% OINT 22 GM TUBE TOP SCH ×2 (09:38→21:34)
[2023-03-16] MEDS: CHOLECALCIFEROL 1,000 UNITS 25 MCG TAB PO SCH (09:38)
[2023-03-16] MEDS: NYSTATIN SUSP 500,000 U/5 ML UDC PO SCH ×3 (09:38→16:40)
[2023-03-16] MEDS ORDERED: FUROSEMIDE 40 MG/4 ML VIAL IV ONE (10:14)
--- NOTE | 2023-03-16 14:07 | Hospitalist Progress Note ---
Date of Service March 16, 2023 Assessment & Plan (1) Acute on chronic respiratory failure with hypoxia and hypercapnia: Plan: A combination of COVID-19 infection (dx 02/12/23), COPD exacerbation, bronchiectasis exacerbation, recent pseudomonas infection, presumptive MRSA pneumonia, acute/chronic diastolic CHF, etc. has had progressive respiratory failure due to the above factors. 03/01/23 -- significant worsening in hypoxia, with HFNC requirements rising to 35 L at that time. CTA chest on 03/02 with severe b/l infiltrates. No PEs seen at that time. Completed a course of antibiotics, Zyvox and Cefepime Repeat chest x ray 03/12 showed worsening multifocal airspace opacity and interval enlargement in moderate bilateral effusions Has had some slight improvement in SOB and oxygen requirement after additional Lasix doses, continue PO Bumex and occasional IV Lasix Currently on 3L through nasal canula, Continue Budesonide, Formeterol, Levalbuterol, saline nasal wash. Discontinue Dexamethasone Palliative in discussion with family regarding discharge plans (2) Pneumonia due to COVID-19 virus: Plan: dx 02/12/23 suspect COVID-19 infection contributed heavily to his worsening respiratory status since earlier this month off airborne precautions s/p 10 day course of decadron Last procalcitonin on 03/13 was normal (3) C. difficile diarrhea: Plan: although toxin negative on testing he has had COPIOUS antibiotics in January and February for various infections he has had numerous stools, poor appetite, etc. reasonable to treat for c diff completed a course of PO vancomycin (4) COPD with exacerbation: Plan: appreciate pulmonary recommendations cont supportive care cont , Albuterol, Budesonide (5) Bronchiectasis with (acute) exacerbation: Plan: 2nd to pseudomonas see above cont tobramycin nebs BID, 30 days on and 20 days off (6) Unspecified arthropathy, shoulder region: Plan: Got steroid injection from Ortho outpatient follow up not a surgical candidate (7) Acute kidney injury: Plan: resolved (8) Acute on chronic diastolic (congestive) heart failure: Plan: continue Bumex Monitor I/O, daily weights (9) Hypothyroidism: Plan: most recent TSH wnl cont synthroid (10) Hypertension: Plan: controlled (11) Multifocal atrial tachycardia: Plan: cont CCB (12) Chronic indwelling Cespedes catheter: Plan: no issues (13) Pseudomonas aeruginosa infection: Plan: see above (14) BPH (benign prostatic hyperplasia): Plan: finasteride flomax cespedes (15) MRSA carrier: Plan: completed a course of zyvoxx (16) DVT prophylaxis: Plan: heparin SC Plan discussions ongoing with family and palliative team regarding discharge plans. His shoulder arthropathy may complicate his qualification for SNF Admission and Anticipated Discharge Date Admission Date: February 18, 2023 Subjective patient seen and examined, says his shortness of breath is improved, now on 3L of oxygen Review of Systems Review of Systems: All systems reviewed are negative, apart from the ones contained in the history. Physical Exam Physical Exam: The patient is awake, alert and oriented 3, well developed and well nourished, in mild distress HEENT--PERRL, EOMI, mucous membranes and oropharynx mildly dry Neck--supple. No JVD. No bruits. Thyroid normal, trachea midline, no adenopathy. Heart--normal S1 and S2. No murmurs, rubs or gallops. Lungs--reduced air entry on auscultation, bibasilar crackles Abdomen--normal bowel sounds and soft. Extremities--no cyanosis or clubbing. No edema. right shoulder tenderness on abduction Dermatologic--normal skin turgor, normal color, no abnormal lymph nodes, no rash. Neurologic--cranial nerves II through XII grossly intact. Rheumatologic--normal range of motion. Psychiatric--normal affect. Results & Data Results & Data Vital Signs (Past 12 Hours) Vital Signs Temp Pulse Resp BP Pulse Ox Pulse Ox O2 Del Method 03/16/23 13:29 118 H 20 4 L 03/16/23 13:29 111 H 20 87 L Nasal Cannula 03/16/23 12:51 Nasal Cannula 03/16/23 07:29 99 H 17 96 Nasal Cannula 03/16/23 07:12 98.1 F 100 H 18 141/67 H 100 Nebulizer 03/16/23 07:06 108 H 18 98 Nasal Cannula O2 Del Method O2 Flow Rate FiO2 03/16/23 13:29 Nasal Cannula 90 03/16/23 13:29 3 03/16/23 12:51 3 03/16/23 07:29 3 03/16/23 07:12 03/16/23 07:06 4 PG Care Time/CCT Total # of Minutes Spent Total Time Spent with Patient: Total time spent is greater than 50% in coordination of care (as documented) at patient's floor/unit and/or counseling patient: Coding Level of Care Code 81301 SUB INP/OBS CARE 2/35MIN Diagnoses Acute on chronic respiratory failure with hypoxia and hypercapnia J96.21; J96.22 Pneumonia due to COVID-19 virus U07.1; J12.82 C. difficile diarrhea A04.72 COPD with exacerbation J44.1 Bronchiectasis with (acute) exacerbation J47.1 Unspecified arthropathy, shoulder region M19.019 Acute kidney injury N17.9 Acute on chronic diastolic (congestive) heart failure I50.33 Hypothyroidism E03.9 Hypothyroidism type: unspecified Hypertension I10 Multifocal atrial tachycardia I47.1 Chronic indwelling Cespedes catheter Z97.8 Pseudomonas aeruginosa infection A49.8 BPH (benign prostatic hyperplasia) N40.0 MRSA carrier Z22.322 DVT prophylaxis Z29.9 Time Spent (min) 35 (9) Hypothyroidism Hypothyroidism type: unspecified Qualified Code(s): E03.9 - Hypothyroidism, unspecified
[2023-03-16] MEDS: MELATONIN 3 MG TAB PO SCH (21:34)
[2023-03-16] MEDS: TAMSULOSIN HCL 0.4 MG CAP PO SCH (21:35)
[2023-03-16] MEDS: METOPROLOL TARTRATE 25 MG TAB PO SCH (21:35)
[2023-03-17] MEDS: LEVALBUTEROL 1.25 MG/3 ML NEB NEB SCH ×4 (01:33→20:13)
[2023-03-17] MEDS: LEVOTHYROXINE SODIUM 150 MCG TABLET PO SCH (06:14)
[2023-03-17] MEDS: HEPARIN SOD 5,000 UNIT/0.5 ML VIAL SQ SCH ×3 (06:14→22:26)
[2023-03-17] MEDS: BUDESONIDE 0.5 MG/2 ML VIAL (PULMICORT) NEB SCH ×2 (07:42→20:13)
[2023-03-17] MEDS: SODIUM CHLOR 7% 4 ML NEB NEB SCH ×2 (07:42→20:13)
[2023-03-17] MEDS: FORMOTEROL 20 MCG/2 ML VIAL NEB SCH ×2 (07:42→20:13)
[2023-03-17] MEDS: TOBRAMYCIN SULFATE VIAL INH SCH ×2 (08:05→20:13)
[2023-03-17] MEDS: METOPROLOL TARTRATE 25 MG TAB PO SCH ×2 (08:59→22:25)
[2023-03-17] MEDS: SIMETHICONE 80 MG CHEW PO PRN (09:00)
[2023-03-17] MEDS: ADVANCED PROBIOTIC 1250 MG CAPSULE PO SCH (09:01)
[2023-03-17] MEDS: PANTOprazole 40 MG TAB PO SCH (09:01)
[2023-03-17] MEDS: MUPIROCIN 2% OINT 22 GM TUBE TOP SCH ×2 (09:02→22:26)
[2023-03-17] MEDS: DICLOFENAC SOD 1% GEL 100 GM TUBE EXT SCH ×4 (09:04→22:26)
[2023-03-17] MEDS: MULTIVITAMIN TAB PO SCH (09:07)
[2023-03-17] MEDS: FINASTERIDE 5 MG TAB PO SCH (09:08)
[2023-03-17] MEDS: BUMETANIDE 1 MG TAB PO SCH (09:08)
[2023-03-17] MEDS: dilTIAZem HCL 180 MG CAPCR PO SCH (09:08)
[2023-03-17] MEDS: CHOLECALCIFEROL 1,000 UNITS 25 MCG TAB PO SCH (09:09)
--- NOTE | 2023-03-17 13:54 | Hospitalist Progress Note ---
Date of Service March 17, 2023 Assessment & Plan (1) Acute on chronic respiratory failure with hypoxia and hypercapnia: Plan: A combination of COVID-19 infection (dx 02/12/23), COPD exacerbation, bronchiectasis exacerbation, recent pseudomonas infection, presumptive MRSA pneumonia, acute/chronic diastolic CHF, etc. has had progressive respiratory failure due to the above factors. 03/01/23 -- significant worsening in hypoxia, with HFNC requirements rising to 35 L at that time. CTA chest on 03/02 with severe b/l infiltrates. No PEs seen at that time. Completed a course of antibiotics, Zyvox and Cefepime Repeat chest x ray 03/12 showed worsening multifocal airspace opacity and interval enlargement in moderate bilateral effusions Has had some slight improvement in SOB and oxygen requirement after additional Lasix doses, continue PO Bumex and occasional IV Lasix Currently on 3L through nasal canula, Continue Budesonide, Formeterol, Levalbuterol, saline nasal wash. Discontinue Dexamethasone Palliative in discussion with family regarding discharge plans (2) Pneumonia due to COVID-19 virus: Plan: dx 02/12/23 suspect COVID-19 infection contributed heavily to his worsening respiratory stat us since earlier this month off airborne precautions s/p 10 day course of decadron Last procalcitonin on 03/13 was normal (3) C. difficile diarrhea: Plan: although toxin negative on testing he has had COPIOUS antibiotics in January and February for various infections he has had numerous stools, poor appetite, etc. reasonable to treat for c diff completed a course of PO vancomycin (4) COPD with exacerbation: Plan: appreciate pulmonary recommendations cont supportive care cont , Albuterol, Budesonide (5) Bronchiectasis with (acute) exacerbation: Plan: 2nd to pseudomonas see above cont tobramycin nebs BID, 30 days on and 20 days off (6) Unspecified arthropathy, shoulder region: Plan: Got steroid injection from Ortho outpatient follow up not a surgical candidate (7) Acute kidney injury: Plan: resolved (8) Acute on chronic diastolic (congestive) heart failure: Plan: continue Bumex Monitor I/O, daily weights (9) Hypothyroidism: Plan: most recent TSH wnl cont synthroid (10) Hypertension: Plan: controlled (11) Multifocal atrial tachycardia: Plan: cont CCB (12) Chronic indwelling Cespedes catheter: Plan: no issues (13) Pseudomonas aeruginosa infection: Plan: see above (14) BPH (benign prostatic hyperplasia): Plan: finasteride flomax cespedes (15) MRSA carrier: Plan: completed a course of zyvoxx (16) DVT prophylaxis: Plan: heparin SC Plan discussions ongoing with family and palliative team regarding discharge plans. His right shoulder arthropathy makes him unable to participate in PT, coupled with desaturation with mild movement This makes d/c to snf difficult. he does not qualify for LTAC because he is no longer on high flow, and does not have other qualifying comorbidities Admission and Anticipated Discharge Date Admission Date: February 18, 2023 Subjective patient seen and examined, says his shortness of breath is improved, now on 3L of oxygen, but has not gotten out of bed in weeks, any attempt at even sitting up often leads to worsening SOB and desaturation Review of Systems Review of Systems: All systems reviewed are negative, apart from the ones contained in the history. Physical Exam Physical Exam: The patient is awake, alert and oriented 3, well developed and well nourished, in mild distress HEENT--PERRL, EOMI, mucous membranes and oropharynx mildly dry Neck--supple. No JVD. No bruits. Thyroid normal, trachea midline, no adenopathy. Heart--normal S1 and S2. No murmurs, rubs or gallops. Lungs--reduced air entry on auscultation, bibasilar crackles Abdomen--normal bowel sounds and soft. Extremities--no cyanosis or clubbing. No edema. right shoulder tenderness on abduction Dermatologic--normal skin turgor, normal color, no abnormal lymph nodes, no rash. Neurologic--cranial nerves II through XII grossly intact. Rheumatologic--right arm movement limited by pain Psychiatric--normal affect. Results & Data Results & Data Vital Signs (Past 12 Hours) Vital Signs Temp Pulse Resp BP Pulse Ox O2 Del Method O2 Flow Rate 03/17/23 07:43 84 18 93 Nasal Cannula 3 03/17/23 07:26 Nasal Cannula 3 03/17/23 07:13 98.4 F 93 H 18 152/76 H 95 Nasal Cannula 3 PG Care Time/CCT Total # of Minutes Spent Total Time Spent with Patient: Total time spent is greater than 50% in coordination of care (as documented) at patient's floor/unit and/or counseling patient: Coding Level of Care Code 98843 SUB INP/OBS CARE MIN Diagnoses Acute on chronic respiratory failure with hypoxia and hypercapnia J96.21; J96.22 Pneumonia due to COVID-19 virus U07.1; J12.82 C. difficile diarrhea A04.72 COPD with exacerbation J44.1 Bronchiectasis with (acute) exacerbation J47.1 Unspecified arthropathy, shoulder region M19.019 Acute kidney injury N17.9 Acute on chronic diastolic (congestive) heart failure I50.33 Hypothyroidism E03.9 Hypothyroidism type: unspecified Hypertension I10 Multifocal atrial tachycardia I47.1 Chronic indwelling Cespedes catheter Z97.8 Pseudomonas aeruginosa infection A49.8 BPH (benign prostatic hyperplasia) N40.0 MRSA carrier Z22.322 DVT prophylaxis Z29.9 Time Spent (min) 35 (9) Hypothyroidism Hypothyroidism type: unspecified Qualified Code(s): E03.9 - Hypothyroidism, unspecified
[2023-03-17] MEDS: MELATONIN 3 MG TAB PO SCH (22:24)
[2023-03-17] MEDS: TAMSULOSIN HCL 0.4 MG CAP PO SCH (22:25)
[2023-03-18] MEDS: LEVALBUTEROL 1.25 MG/3 ML NEB NEB SCH ×4 (00:06→19:21)
[2023-03-18] MEDS: HEPARIN SOD 5,000 UNIT/0.5 ML VIAL SQ SCH ×3 (06:26→21:24)
[2023-03-18] MEDS: LEVOTHYROXINE SODIUM 150 MCG TABLET PO SCH (06:26)
[2023-03-18] MEDS: SODIUM CHLOR 7% 4 ML NEB NEB SCH ×2 (07:23→19:21)
[2023-03-18] MEDS: FORMOTEROL 20 MCG/2 ML VIAL NEB SCH ×2 (07:23→19:21)
[2023-03-18] MEDS: BUDESONIDE 0.5 MG/2 ML VIAL (PULMICORT) NEB SCH ×2 (07:23→19:22)
[2023-03-18] MEDS: TOBRAMYCIN SULFATE VIAL INH SCH ×2 (07:46→19:21)
[2023-03-18] MEDS: METOPROLOL TARTRATE 25 MG TAB PO SCH ×2 (08:16→21:23)
[2023-03-18] MEDS: dilTIAZem HCL 180 MG CAPCR PO SCH (08:17)
[2023-03-18] MEDS: MULTIVITAMIN TAB PO SCH (08:17)
[2023-03-18] MEDS: CHOLECALCIFEROL 1,000 UNITS 25 MCG TAB PO SCH (08:18)
[2023-03-18] MEDS: FINASTERIDE 5 MG TAB PO SCH (08:18)
[2023-03-18] MEDS: PANTOprazole 40 MG TAB PO SCH (08:19)
[2023-03-18] MEDS: ADVANCED PROBIOTIC 1250 MG CAPSULE PO SCH (08:19)
[2023-03-18] MEDS: BUMETANIDE 1 MG TAB PO SCH (08:19)
[2023-03-18] MEDS: DICLOFENAC SOD 1% GEL 100 GM TUBE EXT SCH ×4 (09:00→21:22)
[2023-03-18] MEDS: MUPIROCIN 2% OINT 22 GM TUBE TOP SCH ×2 (09:02→21:22)
--- NOTE | 2023-03-18 12:26 | XRay Report ---
XR chest 1V portable CLINICAL HISTORY: f/u PNA<pleural effusions COMPARISON STUDY: Chest CT March 02, 2003. Chest radiograph March 12, 2023. FINDINGS: There is no pneumothorax. Small bilateral pleural effusions have slightly improved. Multifo bronson airspace opacities have also improved. Cardiomediastinal silhouette is stable. Left PICC is in pl [place]. There is no pneumothorax. IMPRESSION: 1. Slight improvement in small bilateral pleural effusions. 2. Multifocal airspace opacities suggestive of pneumonia, improved since prior exam. Continued radiog raphic follow-up to ensure resolution is recommended. ACT 112: Negative or not required by law. Electronically signed by: Conner Villalpando M.D. 03/18/2023 12:25 PM
[2023-03-18 12:36] LABS: Hemoglobin 11.6 g/dl (14.0-18.0); Mean Corpuscular Hemoglobin 26.2 pg (25.0-34.0); Mean Corpuscular Hgb Conc 31.4 g/dL (32.0-36.0); Mean Corpuscular Volume 83.5 fL (80.0-100.0); Platelet Count 225 K/uL (130-400); RDW Coefficient of Variation 19.1 % (11.5-14.5); RDW Standard Deviation 55.9 fL (36.4-46.3); Red Blood Count 4.43 M/uL (4.70-6.10); White Blood Count 10.95 K/ul (4.8-10.8)
[2023-03-18 12:54] LABS: Albumin Level 2.9 gm/dl (3.4-5.0); BUN Creatinine Ratio 49.1 (10-20); Bilirubin,Total 0.5 mg/dl (0.2-1.0); Calcium 8.5 mg/dl (8.6-10.3); Creatinine Clr Calc Pharmacy 48.9 ml/min; Est GFR (African American) 68.6 ml/min; Est GFR (Non-African American) 59.2 ml/min; Potassium 4.1 mmol/L (3.5-5.1); Total Protein 5.9 gm/dl (6.0-8.3)
[2023-03-18 13:11] LABS: Basophils # (auto) 0.08 K/uL (0-0.2); Basophils % (auto) 0.7 %; Eosinophils # (auto) 0.07 K/uL (0-0.50); Eosinophils % (auto) 0.6 %; Hypochromasia Present; Immature Granulocytes # (auto) 0.69 K/uL (0.01-0.20); Immature Granulocytes % (auto) 6.3 %; Lymphocytes # (auto) 0.64 K/uL (1.2-3.4); Lymphocytes % (auto) 5.8 %; Monocytes # (auto) 1.89 K/uL (0.11-0.59); Monocytes % (auto) 17.3 %; Neutrophils # (auto) 7.58 K/uL (1.40-6.50); Neutrophils % (auto) 69.3 %
[2023-03-18] MEDS: ALBUT/IPRATROP 3MG/0.5MG NEB 3 ML VIAL NEB PRN (14:11)
--- NOTE | 2023-03-18 18:25 | Hospitalist Progress Note ---
Date of Service March 18, 2023 Assessment & Plan (1) Acute on chronic respiratory failure with hypoxia and hypercapnia: Plan: A combination of COVID-19 infection (dx 02/12/23), COPD exacerbation, bronchiectasis exacerbation, recent pseudomonas infection, presumptive MRSA pneumonia, acute/chronic diastolic CHF, etc. has had progressive respiratory failure due to the above factors. 03/01/23 -- significant worsening in hypoxia, with HFNC requirements rising to 35 L at that time. CTA chest on 03/02 with severe b/l infiltrates. No PEs seen at that time. Completed a course of antibiotics, Zyvox and Cefepime Repeat chest x ray 03/12 showed worsening multifocal airspace opacity and interval enlargement in moderate bilateral effusions Has had some slight improvement in SOB and oxygen requirement after additional Lasix doses, continue PO Bumex and occasional IV Lasix Currently on 3L through nasal canula, continues with desaturations with exertion requiring increasing O2 requirement. With diffuse wheezing Continue Budesonide, Formoterol, Levalbuterol, saline nebs. Have since Discontinued Dexamethasone Palliative in discussion with family regarding discharge plans continue flutter valve needs repeat Chest CT in Apr, 3 months from the last with large pulm nodule (2) Pneumonia due to COVID-19 virus: Plan: dx 02/12/23 suspect COVID-19 infection contributed heavily to his worsening respiratory status since earlier this month off airborne precautions s/p 10 day course of decadron Last procalcitonin on 03/13 was normal (3) C. difficile diarrhea: Plan: although toxin negative on testing he has had COPIOUS antibiotics in January and February for various infections he has had numerous stools, poor appetite, etc. and was reasonable to treat for c diff completed a course of PO vancomycinand stools are now formed (4) COPD with exacerbation: Plan: appreciate pulmonary recommendations cont supportive care cont , Albuterol, Budesonide (5) Bronchiectasis with (acute) exacerbation: Plan: 2nd to pseudomonas see above cont tobramycin nebs BID, 30 days on and 20 days off (6) Unspecified arthropathy, shoulder region: Plan: Got steroid injection from Ortho on in right shoulder, improving outpatient follow up not a surgical candidate (7) Acute kidney injury: Plan: resolved (8) Acute on chronic diastolic (congestive) heart failure: Plan: continue Bumex po Monitor I/O, daily weights (9) Hypothyroidism: Plan: most recent TSH wnl cont synthroid (10) Hypertension: Plan: controlled continue diltiazem, bumex, metoprolol was added (11) Multifocal atrial tachycardia: Plan: cont CCB, metoprolol was added (12) Chronic indwelling Cespedes catheter: Plan: placed after urethral strictures dilated in beginning of January with Urology Was supposed to be removed in one week but has been in the hospital ever since Was exchanged February 18, 2023 Consult Urology to see if should do TOV or just exchange catheter prior to discharge to SNF (13) BPH (benign prostatic hyperplasia): Plan: finasteride flomax cespedes (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 Moving bowels and is formed. Eating. He has no other concerns other than that he feels extremely weak all over. Physical Exam Constitutional: WD/WN, vitals as above Respiratory: + cough, able to speak in complete sentences and + tachypneic Auscultation: + wheezes (diffusely) and + bronchial breath sounds Cardiovascular: Rate/Rhythm: regular rate and regular rhythm Extremities: no edema Gastrointestinal (Abdomen): normal bowel sounds, soft, nontender, no hepatosplenomegaly Genitourinary: Cespedes in place draining clear yellow urine Results & Data Results & Data Vital Signs (Past 12 Hours) Vital Signs Temp Pulse Resp BP Pulse Ox O2 Del Method O2 Flow Rate 03/18/23 15:54 36.6 C 103 H 18 145/76 H 91 Nasal Cannula 3 03/18/23 14:17 90 22 95 Nasal Cannula 3 03/18/23 07:25 94 H 20 97 Nasal Cannula 2 03/18/23 07:12 Nasal Cannula 3 03/18/23 07:00 36.4 C L 98 H 18 137/79 98 Nasal Cannula 3 Laboratory Results CBC, CMP, magnesium reviewed PG Care Time/CCT Total # of Minutes Spent Total Time Spent with Patient: Total time spent is greater than 50% in coordination of care (as documented) at patient's floor/unit and/or counseling patient: Coding Level of Care Code 84606 SUB INP/OBS CARE 2/35MIN Diagnoses Acute on chronic respiratory failure with hypoxia and hypercapnia J96.21; J96.22 Pneumonia due to COVID-19 virus U07.1; J12.82 C. difficile diarrhea A04.72 COPD with exacerbation J44.1 Bronchiectasis with (acute) exacerbation J47.1 Unspecified arthropathy, shoulder region M19.019 Acute kidney injury N17.9 Acute on chronic diastolic (congestive) heart failure I50.33 Hypothyroidism E03.9 Hypothyroidism type: unspecified Hypertension I10 Multifocal atrial tachycardia I47.1 Chronic indwelling Cespedes catheter Z97.8 BPH (benign prostatic hyperplasia) N40.0 MRSA carrier Z22.322 DVT prophylaxis Z29.9 (9) Hypothyroidism Hypothyroidism type: unspecified Qualified Code(s): E03.9 - Hypothyroidism, unspecified
[2023-03-18] MEDS ORDERED: COVID19 BIVALENT Vaccine (Pfizer) 30mcg/0.3mL MDV IM ONE (20:00)
[2023-03-18] MEDS: MELATONIN 3 MG TAB PO SCH (21:21)
[2023-03-18] MEDS: TAMSULOSIN HCL 0.4 MG CAP PO SCH (21:23)
[2023-03-19] MEDS: LEVALBUTEROL 1.25 MG/3 ML NEB NEB SCH ×3 (00:53→13:25)
[2023-03-19] MEDS: LEVOTHYROXINE SODIUM 150 MCG TABLET PO SCH (06:32)
[2023-03-19] MEDS: HEPARIN SOD 5,000 UNIT/0.5 ML VIAL SQ SCH ×2 (06:32→14:02)
[2023-03-19] MEDS: BUDESONIDE 0.5 MG/2 ML VIAL (PULMICORT) NEB SCH (07:18)
[2023-03-19] MEDS: FORMOTEROL 20 MCG/2 ML VIAL NEB SCH (07:18)
[2023-03-19] MEDS: SODIUM CHLOR 7% 4 ML NEB NEB SCH (07:18)
[2023-03-19] MEDS: TOBRAMYCIN SULFATE VIAL INH SCH (07:51)
[2023-03-19] MEDS: CHOLECALCIFEROL 1,000 UNITS 25 MCG TAB PO SCH (09:01)
[2023-03-19] MEDS: PANTOprazole 40 MG TAB PO SCH (09:01)
[2023-03-19] MEDS: BUMETANIDE 1 MG TAB PO SCH (09:01)
[2023-03-19] MEDS: ADVANCED PROBIOTIC 1250 MG CAPSULE PO SCH (09:01)
[2023-03-19] MEDS: METOPROLOL TARTRATE 25 MG TAB PO SCH (09:01)
[2023-03-19] MEDS: FINASTERIDE 5 MG TAB PO SCH (09:01)
[2023-03-19] MEDS: DICLOFENAC SOD 1% GEL 100 GM TUBE EXT SCH ×2 (09:01→11:56)
[2023-03-19] MEDS: dilTIAZem HCL 180 MG CAPCR PO SCH (09:01)
[2023-03-19] MEDS: MULTIVITAMIN TAB PO SCH (09:01)
[2023-03-19] MEDS: MUPIROCIN 2% OINT 22 GM TUBE TOP SCH (09:02)
--- NOTE | 2023-03-19 12:05 | Discharge Summary ---
Discharge Summary Date of Service March 19, 2023 Notes For Next Care Provider Medication Changes From Visit Added budesonide and Perforomist nebs bid Admission HPI Per Admitting Provider 87 yo male with PMH of COPD on home oxygen therapy with 2 L oxygen supplementation at bedtime, diastolic CHF, hypothyroidism, hypertension returns to the [facility] after 2 recent hospital stays. Patient was admitted for sepsis in Early January for COPD flair, and then discharged to SNF. Patient returned for COVID 19 and was treated with decadron. Patient's oxygen requirements slowly improved to the point where patient only required 3 liters on ambulation, none at rest. Patient had PT and was stated he can return home on home health. However, once he was home, his oxygen requirements lily, and required at least 2 liters at rest, and then 4 liters continuously. Patient reports having clear sputum production. Patient states he was compliant with his decadron and only has 3 tablets left. Patient denies any fever, chills. Patient arrives in the ED where the ED provider gave patient IV methylprednisolone and albuterol treatment. Chest x ray shows bilateral patchy infiltrates and admission was called. Principal Dx & Hospital Course #1 = Principal Diagnosis (1) Acute on chronic respiratory failure with hypoxia and hypercapnia: A combination of COVID-19 infection (dx 02/12/23), COPD exacerbation, bronchiectasis exacerbation, recent pseudomonas infection, presumptive MRSA pneumonia, acute/chronic diastolic CHF, etc. has had progressive respiratory failure due to the above factors. 03/01/23 -- significant worsening in hypoxia, with HFNC requirements rising to 35 L at that time. CTA chest on 03/02 with severe b/l infiltrates. No PEs seen at that time. Completed a course of antibiotics, Zyvox and Cefepime Repeat chest x ray 03/12 showed worsening multifocal airspace opacity and interval enlargement in moderate bilateral effusions Has had some slight improvement in SOB and oxygen requirement after additional Lasix doses, continue PO Bumex and occasional IV Lasix Currently on 3L through nasal canula, continues with desaturations with exertion requiring increasing O2 requirement. With diffuse wheezing Continue Budesonide, Formoterol, Levalbuterol, saline nebs. Have since Discontinued Dexamethasone Palliative in discussion with family regarding discharge plans continue flutter valve needs repeat Chest CT in Apr, 3 months from the last with large pulm nodule (2) Pneumonia due to COVID-19 virus: dx 02/12/23 suspect COVID-19 infection contributed heavily to his worsening respiratory status since earlier this month off airborne precautions s/p 10 day course of decadron Last procalcitonin on 03/13 was normal (3) C. difficile diarrhea: although toxin negative on testing he has had COPIOUS antibiotics in January and February for various infections he has had numerous stools, poor appetite, etc. and was reasonable to treat for c diff completed a course of PO vancomycinand stools are now formed (4) COPD with exacerbation: appreciate pulmonary recommendations cont supportive care cont , Albuterol, Budesonide (5) Bronchiectasis with (acute) exacerbation: 2nd to pseudomonas see above cont tobramycin nebs BID, 28 days on and 28 days off (6) Unspecified arthropathy, shoulder region: Got steroid injection from Ortho on 03/14 in right shoulder, improving outpatient follow up not a surgical candidate (7) Acute kidney injury: resolved (8) Acute on chronic diastolic (congestive) heart failure: continue Bumex po Monitor I/O, daily weights (9) Hypothyroidism: most recent TSH wnl cont synthroid (10) Hypertension: controlled continue diltiazem, bumex, metoprolol was added (11) Multifocal atrial tachycardia: cont CCB, metoprolol was added (12) Chronic indwelling Cespedes catheter: placed after urethral strictures dilated in beginning of January with Urology Was supposed to be removed in one week but has been in the hospital ever since Was exchanged February 18, 2023 and then again on 03/19 day of discharge Discussed with Urology and plan to keep Cespedes in for discharge and arrange outpatient TOV in 2 weeks (13) BPH (benign prostatic hyperplasia): finasteride flomax cespedes (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: completed a course of Zyvox (15) DVT prophylaxis: heparin SC Plan Dispo-dc to [facility] Discharge Exam Constitutional WD/WN, vitals as above Respiratory + cough; not tachypneic Auscultation: + wheezes (diffusely) and + bronchial breath sounds Cardiovascular Rate/Rhythm: regular rate and regular rhythm Extremities: no edema Gastrointestinal (Abdomen) normal bowel sounds, soft, nontender, no hepatosplenomegaly Genitourinary Cespedes cath in place draining clear yellow urine Updated Medication List Medication Instructions Recorded Confirmed Type magnesium 250 mg tablet 250 mg PO 3XWK 08/02/18 02/18/23 History promethazine-DM 6.25 mg-15 mg/5 mL 5 ml PO Q6H PRN cough #473 mL 09/24/21 02/18/23 Rx oral syrup fluticasone fur. 100 mcg-umeclid 1 inh inhalation QAM #3 Inhalers 08/26/22 02/18/23 Rx 62.5 mcg-vilant 25 mcg inhalat.powder (Trelegy Ellipta) albuterol sulfate 90 mcg/actuation 2 puff inhalation Q6H #8.5 grams 10/17/22 02/18/23 Rx aerosol inhaler (Ventolin HFA) mupirocin 2 % topical ointment 1 applic topical BID #22 grams 11/10/22 02/18/23 Rx potassium chloride 20 mEq 20 meq PO DAILY #72 tabs 12/12/22 02/18/23 Rx tablet,extended release(part/cryst) Oxygen Home 12/31/22 02/18/23 History sennosides 8.6 mg tablet (Senokot) 8.6 mg PO QAM 12/31/22 02/18/23 History ciclopirox 8 % topical solution 1 applic topical DAILY #6.6 mL 01/15/23 02/18/23 Rx acetaminophen 325 mg tablet 650 mg PO Q6H PRN FEVER/PAIN 02/11/23 02/18/23 History (Tylenol) polyethylene glycol 3350 17 gram 17 g PO DAILY PRN Constipation 02/11/23 02/18/23 History oral powder packet (Miralax) dexamethasone 6 mg tablet 6 mg PO DAILY #7 tabs 02/14/23 02/18/23 Rx L.acidop,casei,lactis,rham-B.lact,lisa 2 cap PO DAILY #60 caps 03/19/23 Rx 625 mg (10 billion cell) capsule (Advanced Probiotic) budesonide 0.5 mg/2 mL suspension 0.5 mg (2 mL) NEB BIDR #60 mL 03/19/23 Rx for nebulization bumetanide 2 mg tablet 2 mg PO QAM #30 tabs 03/19/23 Rx cholecalciferol (vitamin D3) 25 1,000 units PO QAM #30 tabs 03/19/23 Rx mcg (1,000 unit) tablet dextromethorphan-guaifenesin 10 5 ml PO Q6H PRN cough #237 mL 03/19/23 Rx mg-100 mg/5 mL oral syrup diclofenac sodium 1 % topical gel 2 g topical QID #100 grams 03/19/23 Rx diltiazem HCl 180 mg capsule,24 180 mg PO QAM 30 days #30 caps 03/19/23 Rx hr,extended release (Tiazac) finasteride 5 mg tablet 5 mg PO DAILY #30 tabs 03/19/23 Rx formoterol fumarate 20 mcg/2 mL 20 mcg (2 mL) NEB BIDR #120 mL 03/19/23 Rx solution for nebulization (Perforomist) ipratropium 0.5 mg-albuterol 3 mg 3 ml NEB Q6H PRN 03/19/23 Rx (2.5 mg base)/3 mL nebulization cough/wheeze/dyspnea #1 box soln levothyroxine 150 mcg tablet 150 mcg PO QAM #30 tabs 03/19/23 Rx melatonin 3 mg tablet 3 mg PO HS #30 tabs 03/19/23 Rx metoprolol tartrate 25 mg tablet 25 mg PO BID #60 tabs 03/19/23 Rx multivitamin 1 tab PO QAM #30 tabs 03/19/23 Rx omeprazole 40 mg capsule,delayed 40 mg PO DAILY #30 caps 03/19/23 Rx release oxycodone 5 mg tablet 2.5 mg PO Q4H PRN moderate-severe 03/19/23 Rx Pain #30 tabs sodium chloride 3 % for 4 ml inhalation BID #120 mL 03/19/23 Rx nebulization tamsulosin 0.4 mg capsule 0.4 mg PO HS #30 caps 03/19/23 Rx tobramycin 300 mg/5 mL in 0.225 % 300 mg (5 mL) inhalation BID 28 03/19/23 Rx sodium chloride for nebulization days #280 mL (Josue) Hospital Stay Data Consultations 02/18/23 17:20 ED Decision to Admit Stat 02/18/23 22:29 Consult Pulmonology Routine 02/18/23 22:32 Consult Cardiology Routine 03/05/23 16:08 Consult Palliative Care Routine 03/12/23 14:46 Consult Patient Rep [Consult Patient Services] Stat 03/12/23 14:53 Consult Orthopedic Surgery Routine Diagnostic Imagining Performed 02/18/23 20:14 CT chest diagnostic wo con Urgent 02/27/23 11:00 FL video swallow Routine 03/02/23 12:46 CT angio chest PE protocol Urgent Pending Results Patient Have Any Pending Studies at Discharge: No Discharge Instructions Given to Patient (Per Discharging Provider) Please continue using supplemental O2 at 3LNC at rest but will need to turn up to 5LNC with exertion during PT/OT. Continue the nebulizers as prescribed. You will need a repeat CT Chest in 4-6 weeks and follow up with the Crts. Keep Cespedes in place until voiding trial with Urology within 2 weeks. Total Time Total Time Spent Total Time Spent (In Minutes): 40 min Coding Level of Care Code 87501 INP/OBS DISCH >30 MIN Diagnoses Acute on chronic respiratory failure with hypoxia and hypercapnia J96.21; J96.22 Pneumonia due to COVID-19 virus U07.1; J12.82 C. difficile diarrhea A04.72 COPD with exacerbation J44.1 Bronchiectasis with (acute) exacerbation J47.1 Unspecified arthropathy, shoulder region M19.019 Acute kidney injury N17.9 Acute on chronic diastolic (congestive) heart failure I50.33 Hypothyroidism E03.9 Hypothyroidism type: unspecified Hypertension I10 Multifocal atrial tachycardia I47.1 Chronic indwelling Cespedes catheter Z97.8 BPH (benign prostatic hyperplasia) N40.0 MRSA carrier Z22.322 DVT prophylaxis Z29.9
--- NOTE | 2023-03-19 21:59 | Electrocardiogram Report ---
Test Reason : Blood Pressure : / mmHG Vent. Rate : 115 BPM Atrial Rate : 115 BPM P-R Int : 128 ms QRS Dur : 080 ms QT Int : 336 ms P-R-T Axes : 038 -35 025 degrees QTc Int : 464 ms Sinus tachycardia with frequent Premature supraventricular complexes Left axis deviation Voltage criteria for left ventricular hypertrophy Poor R wave progression, consider anterior GA vs. lead placement vs. LVH Abnormal ECG When compared with ECG of 18-FEB-2023 16:21, Sinus rhythm has replaced Multifocal atrial tachycardia Confirmed by Kwasi Carter ([id number]) on 03/19/2023 9:58:41 PM Referred By: REFERRED SELF Confirmed By:Kwasi Carter
== END 2023-03-19 16:50 | DRG 177 ==
LOC: ED 16:05 → SUATTDRO 18:17 → 2E 18:17 → 3W 02-23 20:31

== ENCOUNTER 2023-03-29 21:04 | Inpatient (IN) ==
--- NOTE | 2023-03-29 21:29 | Emergency Department Note ---
History of Present Illness General Chief complaint: Respiratory Distress Time Seen by Provider: 03/29/23 21:21 Home Medications Medication Instructions Recorded Confirmed Type Oxygen Home 12/31/22 03/29/23 History L.acidop,casei,lactis,rham-B.lact,lisa 2 cap PO DAILY #60 caps 03/19/23 03/29/23 Rx 625 mg (10 billion cell) capsule (Advanced Probiotic) acetaminophen 325 mg tablet 650 mg PO Q6H PRN FEVER/PAIN #60 03/19/23 03/29/23 Rx (Tylenol) tabs budesonide 0.5 mg/2 mL suspension 0.5 mg (2 mL) NEB BIDR #60 mL 03/19/23 03/29/23 Rx for nebulization bumetanide 2 mg tablet 2 mg PO QAM #30 tabs 03/19/23 03/29/23 Rx cholecalciferol (vitamin D3) 25 1,000 units PO QAM #30 tabs 03/19/23 03/29/23 Rx mcg (1,000 unit) tablet dextromethorphan-guaifenesin 10 5 ml PO Q6H PRN cough #237 mL 03/19/23 03/29/23 Rx mg-100 mg/5 mL oral syrup diclofenac sodium 1 % topical gel 2 g topical QID #100 grams 03/19/23 03/29/23 Rx diltiazem HCl 180 mg capsule,24 180 mg PO QAM 30 days #30 caps 03/19/23 03/29/23 Rx hr,extended release (Tiazac) finasteride 5 mg tablet 5 mg PO DAILY #30 tabs 03/19/23 03/29/23 Rx formoterol fumarate 20 mcg/2 mL 20 mcg (2 mL) NEB BIDR #120 mL 03/19/23 03/29/23 Rx solution for nebulization (Perforomist) ipratropium 0.5 mg-albuterol 3 mg 3 ml NEB Q6H PRN 03/19/23 03/29/23 Rx (2.5 mg base)/3 mL nebulization cough/wheeze/dyspnea #1 box soln levothyroxine 150 mcg tablet 150 mcg PO QAM #30 tabs 03/19/23 03/29/23 Rx melatonin 3 mg tablet 3 mg PO HS #30 tabs 03/19/23 03/29/23 Rx metoprolol tartrate 25 mg tablet 25 mg PO BID #60 tabs 03/19/23 03/29/23 Rx multivitamin 1 tab PO QAM #30 tabs 03/19/23 03/29/23 Rx omeprazole 40 mg capsule,delayed 40 mg PO DAILY #30 caps 03/19/23 03/29/23 Rx release oxycodone 5 mg tablet 2.5 mg PO Q4H PRN moderate-severe 03/19/23 03/29/23 Rx Pain #30 tabs sodium chloride 3 % for 4 ml inhalation BID #120 mL 03/19/23 03/29/23 Rx nebulization tamsulosin 0.4 mg capsule 0.4 mg PO HS #30 caps 03/19/23 03/29/23 Rx tobramycin 300 mg/5 mL in 0.225 % 300 mg (5 mL) inhalation BID 28 03/19/23 03/29/23 Rx sodium chloride for nebulization days #280 mL (Josue) Allergies Allergy/AdvReac Type Severity Reaction Status Date / Time clarithromycin Allergy Intermediate RASH Verified 02/18/23 15:22 Past Med/Surg History Medical History Acute and chronic respiratory failure Acute on chronic diastolic (congestive) heart failure Acute on chronic kidney failure Advanced care planning/counseling discussion Avulsion injury of right elbow region Back problem BPH (benign prostatic hyperplasia) Bronchiectasis with (acute) exacerbation Candidal diaper rash Cellulitis of both lower extremities Cellulitis of left leg Cellulitis of left lower extremity CHI (closed head injury) Chronic obstructive pulmonary disease Chronic respiratory failure with hypoxia Closed hip fracture Contusion of elbow Contusion of face COPD (chronic obstructive pulmonary disease) Discussion about advance care planning held with family member Dyspnea and respiratory abnormalities Early satiety Elevated troponin Fluid retention in legs GERD (gastroesophageal reflux disease) Hematoma of right lower extremity History of bronchitis Hypernatremia Hypertension Hypothyroidism Left lumbar radiculopathy Leg length discrepancy Livedo reticularis Lumbar spinal stenosis Lymphedema MRSA (methicillin resistant Staphylococcus aureus) Multifocal pneumonia On home oxygen therapy 02 2LPM AT HS Osteoarthritis Palliative care by specialist Personal history of MRSA (methicillin resistant Staphylococcus aureus) Pulmonary nodule Sepsis Skin tear Sleep apnea cpap Spinal stenosis Syncope Urethral stricture Vitamin D deficiency Wheezing Surgical History History of cardiac cath 12/2019 - [place] - increased edema - no stents/angioplasty History of cholecystectomy History of colonoscopy History of herniorrhaphy left inguinal History of partial knee replacement left History of tonsillectomy History of tooth extraction Hx of surgical procedure LEFT FEMUR FX WITH REPAIR Family History Mother Cerebral atherosclerosis Father Diverticulosis Other No significant family history Denies family history of Ovarian cancer Prostate cancer Myocardial infarction Breast cancer Colorectal cancer Social History Smoking Status: Former smoker Tobacco Type: Cigarettes Age Started Using Tobacco: 22; packs per day: 1; Cigarettes Per Day: 20; Second Hand Exposure: No; Do You Dip or Chew Tobacco: No; Hx Alcohol Use: No Hx Substance Use: No Preferred Language: Slovenian Communication Ability: Effective Visual Impairment: No Limitations Hearing Ability: Normal Scada Technician Required: No Beliefs That Will Affect Care: Caodaism marital status: Current Living Situation: Spouse current occupational status: retired Feels Safe at Home: Yes Dental Care, Regularly: No Physical Activity Frequency: 1-2 Times per Week Seatbelt Use: always Sunscreen Use: Yes Assistive Devices: Oxygen - at Night and Walker Physical Exam Vital Signs Vital Signs - 24 hr 03/29/23 21:24 03/29/23 21:24 03/29/23 21:14 Temperature Temperature Source Pulse Rate 115 H 118 H Respiratory Rate 30 H 21 Respiratory Effort / Characteristics Accessory Muscle Use Pursed Lip Short of Breath Accessory Muscle Use Short of Breath Spontaneous Respiratory Depth Deep Normal Shallow Blood Pressure 135/104 H Blood Pressure Mean 114 Pulse Oximetry 93 95 Oxygen Delivery Method CPAP CPAP Fraction of Inspired Oxygen 30 Sepsis Recent Fever Within 48 Hours No Sepsis New/Unexplained Change in Mental Status No Sepsis Action Taken by Nursing No Action Required 03/29/23 21:14 03/29/23 22:19 03/29/23 22:30 Temperature 36.6 C Temperature Source Oral Pulse Rate 112 H Respiratory Rate Respiratory Effort / Characteristics Respiratory Depth Blood Pressure Blood Pressure Mean Pulse Oximetry 96 Oxygen Delivery Method CPAP Fraction of Inspired Oxygen Sepsis Recent Fever Within 48 Hours Sepsis New/Unexplained Change in Mental Status Sepsis Action Taken by Nursing GENERAL: Patient is awake alert in no acute distress; patient is wearing BiPAP upon my arrival EYES: The conjunctivae are clear. The pupils are round and reactive. EARS, NOSE, MOUTH AND THROAT: The nose is without any evidence of any deformity. Mucous membranes are moist. Tongue is midline. NECK: The neck is nontender and supple. RESPIRATORY: Patient is on BiPAP and has crackles bilaterally CARDIOVASCULAR: Regular rate and rhythm noted there no murmurs rubs or gallops normal S1 normal S2. GASTROINTESTINAL: The abdomen is soft. Abdomen is nontender. Patient has a Carrero catheter present BACK: No midline tenderness or or step-off noted range of motion in flexion extension as well as rotation no signs of muscle spasm noted MUSCULOSKELETAL/EXTREMITIES: There is no evidence of gross deformity full range of motion is noted in the hips and shoulders. There are bruits present patient has bilateral lower extremity edema SKIN: There is no obvious evidence of any rash. There are no petechiae, pallor or cyanosis noted. NEUROLOGIC: Patient is awake alert and oriented x3 strength is symmetric Course Reevaluation(s) Reevaluation #1: Patient was started on IV cefepime, IV Lasix, BiPAP, aspirin; patient is much more comfortable on BiPAP Time: 23:05 Consultations Consultation #1: Case was discussed with the [facility] hospitalist for admission Time: 23:05 Administered Medications Discontinued Medications Aspirin (Aspirin Chew 324 Mg) 324 mg PO NOW STA Stop: 03/29/23 22:43 Last Admin: 03/29/23 22:58 Dose: 324 mg Documented By: IFEOMA Furosemide (Furosemide 40 Mg/4 Ml Vial) 40 mg IV ONE ONE Stop: 03/29/23 22:08 Last Admin: 03/29/23 22:21 Dose: 40 mg Documented By: IFEOMA Cefepime HCl (Maxipime) 2,000 mg in 20 mls @ 5 mls/min IV NOW STA; Protocol Stop: 03/29/23 22:10 Last Admin: 03/29/23 22:20 Dose: 5 mls/min Documented By: IFEOMA Critical Care Time Critical Care Time: Yes Total Critical Care Time: 35 I have personally spent greater than 35 minutes of critical care time in the direct management of this patient. This includes bedside care, interpretation of diagnostic studies, and testing, discussion with consultants, patient, and family members, and other required patient management activities. These minutes are in excess of all separately billable procedures. Medical Decision Making Medical Records Attestation: I reviewed the patient's medical records. Home Medications Current Medication List: was personally reviewed by me Laboratory Data Attestation: I reviewed the patient's lab results. Patient has an elevated white blood cell count, elevated troponin, elevated BNP 03/29/23 21:51 03/29/23 21:51 Lab Results 03/29/23 03/29/23 03/29/23 Range/Units 21:51 21:51 21:51 WBC 21.53 H (4.8-10.8) K/ul RBC 4.80 (4.70-6.10) M/uL Hgb 12.8 L (14.0-18.0) g/dl Hct 39.9 L (42.0-52.0) % MCV 83.1 (80.0-100.0) fL MCH 26.7 (25.0-34.0) pg MCHC 32.1 (32.0-36.0) g/dL RDW Std Deviation 58.3 H (36.4-46.3) fL RDW Coeff of [place] 19.8 H (11.5-14.5) % Plt Count 269 (130-400) K/uL MPV 11.4 (9.4-12.4) fL Immature Gran % (Auto) 4.0 % Neut % (Auto) 90.4 % Lymph % (Auto) 2.6 % [place] % (Auto) 2.5 % Eos % (Auto) 0.0 % Baso % (Auto) 0.5 % Neut # (Auto) 19.45 H (1.40-6.50) K/uL Lymph # (Auto) 0.57 L (1.2-3.4) K/uL [place] # (Auto) 0.53 (0.11-0.59) K/uL Eos # (Auto) 0.01 (0-0.50) K/uL Baso # (Auto) 0.10 (0-0.2) K/uL Immature Gran # (Auto) 0.87 H (0.01-0.20) K/uL PT 10.3 (9.0-12.0) Seconds INR 0.9 (0.9-1.1) APTT 23.3 (21.0-31.0) Seconds PTT Ratio 0.8 VBG pH (7.36-7.41) VBG pCO2 (38-50) mmHg VBG pO2 mmHg VBG HCO3 mmol/L VBG O2 Saturation % VBG Base Excess mEq/L Sodium (136-145) mmol/L Potassium (3.5-5.1) mmol/L Chloride (98-107) mmol/L Carbon Dioxide (21-32) mmol/L Anion Gap (3-11) BUN (6-23) mg/dl Creatinine (0.6-1.4) mg/dl Est Cr Clr Drug Dosing ml/min Est GFR ( Amer) ml/min Est GFR (Non-Af Amer) ml/min BUN/Creatinine Ratio (10-20) Glucose (70-99(Fasting)) mg/dl Calcium (8.6-10.3) mg/dl Total Bilirubin (0.2-1.0) mg/dl AST (13-39) U/L ALT (7-52) U/L Alkaline Phosphatase (34-104) U/L Troponin I High Sens (0-20) pg/ml B-Natriuretic Peptide 143 H (0-100) pg/ml Total Protein (6.0-8.3) gm/dl Albumin (3.4-5.0) gm/dl Globulin (2.5-4.0) gm/dl Albumin/Globulin Ratio (0.9-2) SARS-CoV-2, RNA, NAAT (NEGATIVE) 03/29/23 03/29/23 03/29/23 Range/Units 21:51 21:51 22:18 WBC (4.8-10.8) K/ul RBC (4.70-6.10) M/uL Hgb (14.0-18.0) g/dl Hct (42.0-52.0) % MCV (80.0-100.0) fL MCH (25.0-34.0) pg MCHC (32.0-36.0) g/dL RDW Std Deviation (36.4-46.3) fL RDW Coeff of Jordan (11.5-14.5) % Plt Count (130-400) K/uL MPV (9.4-12.4) fL Immature Gran % (Auto) % Neut % (Auto) % Lymph % (Auto) % [place] % (Auto) % Eos % (Auto) % Baso % (Auto) % Neut # (Auto) (1.40-6.50) K/uL Lymph # (Auto) (1.2-3.4) K/uL [place] # (Auto) (0.11-0.59) K/uL Eos # (Auto) (0-0.50) K/uL Baso # (Auto) (0-0.2) K/uL Immature Gran # (Auto) (0.01-0.20) K/uL PT (9.0-12.0) Seconds INR (0.9-1.1) APTT (21.0-31.0) Seconds PTT Ratio VBG pH 7.39 (7.36-7.41) VBG pCO2 60 H (38-50) mmHg VBG pO2 38 mmHg VBG HCO3 36 mmol/L VBG O2 Saturation 62.2 % VBG Base Excess 9.1 mEq/L Sodium 140 (136-145) mmol/L Potassium 3.9 (3.5-5.1) mmol/L Chloride 98 (98-107) mmol/L Carbon Dioxide 33 H (21-32) mmol/L Anion Gap 9 (3-11) BUN 54 H (6-23) mg/dl Creatinine 1.36 (0.6-1.4) mg/dl Est Cr Clr Drug Dosing 41.5 ml/min Est GFR ( Amer) 54.2 ml/min Est GFR (Non-Af Amer) 46.8 ml/min BUN/Creatinine Ratio 39.7 H (10-20) Glucose 139 H (70-99(Fasting)) mg/dl Calcium 8.5 L (8.6-10.3) mg/dl Total Bilirubin 0.5 (0.2-1.0) mg/dl AST 16 (13-39) U/L ALT 17 (7-52) U/L Alkaline Phosphatase 72 (34-104) U/L Troponin I High Sens 935.5 H* (0-20) pg/ml B-Natriuretic Peptide (0-100) pg/ml Total Protein 6.8 (6.0-8.3) gm/dl Albumin 3.2 L (3.4-5.0) gm/dl Globulin 3.6 (2.5-4.0) gm/dl Albumin/Globulin Ratio 0.9 (0.9-2) SARS-CoV-2, RNA, NAAT POSITIVE A* (NEGATIVE) Imaging Data Attestation: I personally reviewed and interpreted this imaging study as follows: My Impression: Chest x-ray interpreted by me consistent with congestive heart failure versus bilateral lower lobe infiltrate with pleural effusions ECG Data Attestation: I personally reviewed and interpreted this ECG as follows: Additional Comments: EKG interpreted by me sinus tachycardia rate of 112 LVH poor R wave progression the precordium no obvious ST segment elevation or depression poor baseline left axis deviation is present Telemetry was ordered by me, interpreted as sinus tachycardia rate of 112 MDM Narrative Medical decision making differential diagnosis includes CHF, pneumonia, COVID, COPD exacerbation, anemia, cardiac event Plan is to check labs, EKG, chest x-ray, maintain BiPAP Patient's prior medical records were reviewed by me Patient was started empirically on IV cefepime, patient was not given a 30 mL/kg bolus as the patient's not septic shock and the patient has CHF. Patient has an elevated troponin and was started on aspirin. Patient will be admitted for further treatment of CHF, pneumonia, elevated troponin Impression & Plan CHF (congestive heart failure), Hypoxia, Pneumonia, Acute non-ST elevation myocardial infarction (NSTEMI), COVID-19 Discharge Plan Visit Data Chief Complaint: Respiratory Distress ED Provider: Earl Edouard Discharge Problem: CHF (congestive heart failure), Hypoxia, Pneumonia, Acute non-ST elevation myocardial infarction (NSTEMI), COVID-19 Patient Disposition: Admitted As Inpatient Forms Stand Alone Forms: My [facility] Prescriptions Prescriptions: No Action (DME) Oxygen Home Liters Per Minute See Rx Instructions .Route Rx Instructions: As directed formoterol fumarate [Perforomist] 20 mcg/2 mL Solution For Nebulization 20 mcg NEB BIDR Qty: 120 0RF metoprolol tartrate 25 mg Tablet 25 mg PO BID Qty: 60 0RF Advanced Probiotic 625 mg (10 billion cell) Capsule 2 cap PO DAILY Qty: 60 0RF melatonin 3 mg Tablet 3 mg PO HS Qty: 30 0RF dextromethorphan-guaifenesin 10-100 mg/5 mL Syrup 5 ml PO Q6H PRN (Reason: cough) Qty: 237 0RF budesonide 0.5 mg/2 mL Suspension For Nebulization 0.5 mg NEB BIDR Qty: 60 0RF multivitamin Tablet 1 tab PO QAM Qty: 30 0RF acetaminophen [Tylenol] 325 mg Tablet 650 mg PO Q6H PRN (Reason: FEVER/PAIN) Qty: 60 0RF ipratropium-albuterol 0.5 mg-3 mg(2.5 mg base)/3 mL Solution For Nebulization 3 ml NEB Q6H PRN (Reason: cough/wheeze/dyspnea) Qty: 1 0RF bumetanide 2 mg tablet 2 mg PO QAM Qty: 30 0RF Rx Instructions: May increase to 2 mg BID PRN for weight gain, edema, SOB tobramycin in 0.225 % NaCl [Josue] 300 mg/5 mL solution for nebulization 300 mg inhalation BID 28 Days Qty: 280 0RF Rx Instructions: separate doses by at least 6 hours 28 days on then 28 days off then repeat diltiazem HCl [Tiazac] 180 mg capsule,extended release 24 hr 180 mg PO QAM 30 Days Qty: 30 0RF sodium chloride 3 % solution for nebulization 4 ml inhalation BID Qty: 120 0RF Rx Instructions: 28 days on, 28 days off omeprazole 40 mg capsule,delayed release(DR/EC) 40 mg PO DAILY Qty: 30 0RF tamsulosin 0.4 mg capsule 0.4 mg PO HS Qty: 30 0RF Rx Instructions: ER Nurse and patient's both stated nothing has changed since pt release on February levothyroxine 150 mcg tablet 150 mcg PO QAM Qty: 30 0RF finasteride 5 mg tablet 5 mg PO DAILY Qty: 30 0RF oxycodone 5 mg tablet 2.5 mg PO Q4H PRN (Reason: moderate-severe Pain) Qty: 30 0RF cholecalciferol (vitamin D3) 1,000 unit (25 mcg) tablet 1,000 units PO QAM Qty: 30 0RF diclofenac sodium 1 % gel 2 g topical QID Qty: 100 0RF Rx Instructions: apply to shoulders Referrals Referrals: Tyler Hawkins MD [Primary Care Provider] -
[2023-03-29] MEDS ORDERED: CEFEPIME 2,000 MG/20 ML VIAL IV STA (22:07)
[2023-03-29] MEDS ORDERED: FUROSEMIDE 40 MG/4 ML VIAL IV ONE (22:07)
[2023-03-29 22:09] LABS: Base Excess VBG 9.1 mEq/L; HCO3 VBG 36 mmol/L; Oxygen Saturation VBG 62.2 %; PCO2 VBG 60 mmHg (38-50); PO2 VBG 38 mmHg; pH VBG 7.39 (7.36-7.41)
[2023-03-29 22:19] LABS: Hematocrit (blood only) 39.9 % (42.0-52.0); Hemoglobin 12.8 g/dl (14.0-18.0); Mean Corpuscular Hemoglobin 26.7 pg (25.0-34.0); Mean Corpuscular Hgb Conc 32.1 g/dL (32.0-36.0); Mean Corpuscular Volume 83.1 fL (80.0-100.0); Mean Platelet Volume 11.4 fL (9.4-12.4); Platelet Count 269 K/uL (130-400); RDW Coefficient of Variation 19.8 % (11.5-14.5); RDW Standard Deviation 58.3 fL (36.4-46.3); White Blood Count 21.53 K/ul (4.8-10.8)
[2023-03-29 22:29] LABS: Albumin Globulin Ratio 0.9 (0.9-2); Albumin Level 3.2 gm/dl (3.4-5.0); BUN Creatinine Ratio 39.7 (10-20); Bilirubin,Total 0.5 mg/dl (0.2-1.0); Calcium 8.5 mg/dl (8.6-10.3); Creatinine Clr Calc Pharmacy 41.5 ml/min; Est GFR (African American) 54.2 ml/min; Est GFR (Non-African American) 46.8 ml/min; Globulin 3.6 gm/dl (2.5-4.0); Potassium 3.9 mmol/L (3.5-5.1); Total Protein 6.8 gm/dl (6.0-8.3)
[2023-03-29 22:37] LABS: INR 0.9 (0.9-1.1); Partial Thromboplastin Ratio 0.8; Partial Thromboplastin Time 23.3 Seconds (21.0-31.0); Prothrombin Time 10.3 Seconds (9.0-12.0)
[2023-03-29 22:39] LABS: Troponin I High Sensitivity 935.5 pg/ml (0-20)
[2023-03-29 22:41] LABS: Basophils % (auto) 0.5 %; Eosinophils # (auto) 0.01 K/uL (0-0.50); Immature Granulocytes # (auto) 0.87 K/uL (0.01-0.20); Lymphocytes # (auto) 0.57 K/uL (1.2-3.4); Lymphocytes % (auto) 2.6 %; Monocytes # (auto) 0.53 K/uL (0.11-0.59); Monocytes % (auto) 2.5 %; Neutrophils # (auto) 19.45 K/uL (1.40-6.50); Neutrophils % (auto) 90.4 %
[2023-03-29] MEDS ORDERED: ASPIRIN CHEW 324 MG PO STA (22:42)
--- NOTE | 2023-03-30 00:17 | History & Physical Report ---
Date of Service March 29, 2023 Assessment & Plan (1) Acute on chronic respiratory failure with hypoxia and hypercapnia: Plan: Patient is an 87-year-old male with past medical history of bronchiectasis, COPD, on home O2, diastolic heart failure, hypothyroidism, and hypertension returns to the hospital for hypoxia for which she was sent from [facility]. Patient has had complicated past couple of months with multiple admissions to the hospital in relation to respiratory failure. Suspect respiratory failure is multifactorial. Patient currently on BiPAP and is hemodynamically stable. -Admit to telemetry -Suspect combination of pneumonia causing COPD exacerbation with history of bronchiectasis, and fluid overload -X-ray suggestive of pneumonia and fluid overload. CT of the chest ordered for further evaluation given complicated history -We will hold off pulm consult for now, however, if patient does not improve, patient may require bronchoscopy for tailoring antimicrobial treatment -Patient given cefepime in the ED, continue for now. Added doxycycline for COPD exacerbation based on physical exam, patient has erythromycin allergy. Blood culture obtained prior to antibiotic administration. -Sputum cultures ordered, pending collection -Continue BiPAP in setting of CO2 retention wean off as able -DuoNeb 4 times daily scheduled for now -40 mg Solu-Medrol daily -Mucinex twice daily -Pulmonary toilet (2) Bronchiectasis: Plan: - Hypertonic saline nebulizer twice daily scheduled -Otherwise as above (3) COPD exacerbation: Plan: - DuoNeb 4 times daily scheduled -Doxycycline as above -Pulmonary toilet (4) Chronic obstructive pulmonary disease: Plan: - Continue home medications in addition to scheduled DuoNeb (5) Elevated troponin: Plan: - Patient without chest pain or ACS symptoms -Suspect elevated secondary to demand ischemia from acute hypoxemic hypercarbic respiratory failure, repeat 2h and trend to peak. -Cardiology consulted, appreciate Recs (6) Sepsis: Plan: - Patient meets SIRS criteria with elevated white blood cell count, tachycardia, and tachypnea with likely pneumonia indicating sepsis -Given complicated pulmonary history and being somewhat overloaded on exam, did not do typical 30 cc/kg fluid bolus as to not exacerbate CHF in the setting of acute respiratory failure. -Antibiotics as above, currently hemodynamically stable -Blood cultures and sputum culture pending (7) Pneumonia: Plan: - Started on cefepime given previous bronch revealed pansensitive Pseudomonas -Continue doxycycline which will offer atypical coverage as well (8) History of COVID-19: Plan: - Antigen test positive on admission -Suspect this is due to to the same COVID-19 infection that the patient had gotten in end of January but cannot rule out new infection entirely -Isolation precautions in place -Solu-Medrol for COPD exacerbation as treatment if new COVID-19 infection -Do not feel remdesivir is indicated at this time (9) Multifocal atrial tachycardia: Plan: - Continue metoprolol and diltiazem (10) (HFpEF) heart failure with preserved ejection fraction: Plan: - Typically patient is on 2 mg of Bumex in the morning -Patient is status post 40 mg of Lasix IV in the ED -Given septic picture, will hold morning dose of Bumex as to not disrupt patient's current stable vitals -If respiratory failure were to worsen, patient may need additional diuresis. We will base on physical exam -Cardiology consulted, appredat shah (11) BPH (benign prostatic hyperplasia): Plan: - Continue finasteride and Flomax (12) Hypertension: Plan: -Continue metoprolol and diltiazem as above Plan Disposition: Admit to telemetry for acute respiratory failure CODE STATUS: DNR DNI as discussed with patient Diet: Heart healthy, low-sodium, easy to chew DVT prophylaxis: Heparin History of Present Illness Chief Complaint: Hypoxia Primary Care Provider: Tyler Hawkins MD Patient is an 87-year-old male with past medical history of bronchiectasis, COPD, on home O2, diastolic heart failure, hypothyroidism, and hypertension returns to the hospital for hypoxia for which she was sent from [facility]. Patient has had complicated past couple of months with multiple admissions to the hospital in relation to respiratory failure. Patient has multiple pulmonary comorbidities including COPD, frequent pneumonia, bronchiectasis, and CHF requiring diuresis. Patient having COVID-19 in end of January and has been antigen test positive since. Patient is currently on BiPAP upon my arrival to examination. Apparently, patient having longtime difficulty with shortness of breath and today one of the [facility] workers had noted O2 saturation down to the 70s which prompted him being brought over by ambulance. Patient was brought back to the emergency department and put on BiPAP which improved his oxygen saturation. Interview is limited as his responses are difficult to understand behind the BiPAP and if he is taken off he desats down into the low 80s. Patient is able to state that he is more comfortable now that he is able to breathe better. Denies chest pain. ED course: Patient was brought back and seen by one of our providers. Patient was placed on BiPAP Imaging was significant for a chest x-ray which shows possible pneumonia of the left lower lobe as well as evidence of pulmonary edema per my interpretation. CBC was significant for a white blood cell count of 21.5 with a left shift. VBG having a pH of 7.39 with a PCO2 of 60. BNP slightly elevated 143. High-sensitivity troponin elevated at 935.5. Procalcitonin negative at 0.38. Patient was given 40 of Lasix, was started on cefepime, and was given a loading dose of aspirin at 324 mg. The hospitalist service was consulted for admission to the hospital. Allergies Allergy/AdvReac Type Severity Reaction Status Date / Time clarithromycin Allergy Intermediate RASH Verified 02/18/23 15:22 Home Medications Medication Instructions Recorded Confirmed Type Oxygen Home 12/31/22 03/29/23 History L.acidop,casei,lactis,rham-B.lact,lisa 2 cap PO DAILY #60 caps 03/19/23 03/29/23 Rx 625 mg (10 billion cell) capsule (Advanced Probiotic) acetaminophen 325 mg tablet 650 mg PO Q6H PRN FEVER/PAIN #60 03/19/23 03/29/23 Rx (Tylenol) tabs budesonide 0.5 mg/2 mL suspension 0.5 mg (2 mL) NEB BIDR #60 mL 03/19/23 03/29/23 Rx for nebulization bumetanide 2 mg tablet 2 mg PO QAM #30 tabs 03/19/23 03/29/23 Rx cholecalciferol (vitamin D3) 25 1,000 units PO QAM #30 tabs 03/19/23 03/29/23 Rx mcg (1,000 unit) tablet dextromethorphan-guaifenesin 10 5 ml PO Q6H PRN cough #237 mL 03/19/23 03/29/23 Rx mg-100 mg/5 mL oral syrup diclofenac sodium 1 % topical gel 2 g topical QID #100 grams 03/19/23 03/29/23 Rx diltiazem HCl 180 mg capsule,24 180 mg PO QAM 30 days #30 caps 03/19/23 03/29/23 Rx hr,extended release (Tiazac) finasteride 5 mg tablet 5 mg PO DAILY #30 tabs 03/19/23 03/29/23 Rx formoterol fumarate 20 mcg/2 mL 20 mcg (2 mL) NEB BIDR #120 mL 03/19/23 03/29/23 Rx solution for nebulization (Perforomist) ipratropium 0.5 mg-albuterol 3 mg 3 ml NEB Q6H PRN 03/19/23 03/29/23 Rx (2.5 mg base)/3 mL nebulization cough/wheeze/dyspnea #1 box soln levothyroxine 150 mcg tablet 150 mcg PO QAM #30 tabs 03/19/23 03/29/23 Rx melatonin 3 mg tablet 3 mg PO HS #30 tabs 03/19/23 03/29/23 Rx metoprolol tartrate 25 mg tablet 25 mg PO BID #60 tabs 03/19/23 03/29/23 Rx multivitamin 1 tab PO QAM #30 tabs 03/19/23 03/29/23 Rx omeprazole 40 mg capsule,delayed 40 mg PO DAILY #30 caps 03/19/23 03/29/23 Rx release oxycodone 5 mg tablet 2.5 mg PO Q4H PRN moderate-severe 03/19/23 03/29/23 Rx Pain #30 tabs sodium chloride 3 % for 4 ml inhalation BID #120 mL 03/19/23 03/29/23 Rx nebulization tamsulosin 0.4 mg capsule 0.4 mg PO HS #30 caps 03/19/23 03/29/23 Rx tobramycin 300 mg/5 mL in 0.225 % 300 mg (5 mL) inhalation BID 28 03/19/23 03/29/23 Rx sodium chloride for nebulization days #280 mL (Josue) Past Med/Surg History Medical History Acute and chronic respiratory failure Acute on chronic diastolic (congestive) heart failure Acute on chronic kidney failure Advanced care planning/counseling discussion Avulsion injury of right elbow region Back problem BPH (benign prostatic hyperplasia) Bronchiectasis with (acute) exacerbation Candidal diaper rash Cellulitis of both lower extremities Cellulitis of left leg Cellulitis of left lower extremity CHI (closed head injury) Chronic obstructive pulmonary disease Chronic respiratory failure with hypoxia Closed hip fracture Contusion of elbow Contusion of face COPD (chronic obstructive pulmonary disease) Discussion about advance care planning held with family member Dyspnea and respiratory abnormalities Early satiety Elevated troponin Fluid retention in legs GERD (gastroesophageal reflux disease) Hematoma of right lower extremity History of bronchitis Hypernatremia Hypertension Hypothyroidism Left lumbar radiculopathy Leg length discrepancy Livedo reticularis Lumbar spinal stenosis Lymphedema MRSA (methicillin resistant Staphylococcus aureus) Multifocal pneumonia On home oxygen therapy 02 2LPM AT Osteoarthritis Palliative care by specialist Personal history of MRSA (methicillin resistant Staphylococcus aureus) Pulmonary nodule Sepsis Skin tear Sleep apnea cpap Spinal stenosis Syncope Urethral stricture Vitamin D deficiency Wheezing Surgical History History of cardiac cath 12/2019 - [place] - increased edema - no stents/angioplasty History of cholecystectomy History of colonoscopy History of herniorrhaphy left inguinal History of partial knee replacement left History of tonsillectomy History of tooth extraction Hx of surgical procedure LEFT FEMUR FX WITH REPAIR Family History Mother Cerebral atherosclerosis Father Diverticulosis Other No significant family history Denies family history of Ovarian cancer Prostate cancer Myocardial infarction Breast cancer Colorectal cancer Social History Smoking Status: Former smoker Tobacco Type: Cigarettes Age Started Using Tobacco: 22; packs per day: 1; Cigarettes Per Day: 20; Second Hand Exposure: No; Do You Dip or Chew Tobacco: No; Tobacco Cessation Education Requested by Patient: No Hx Alcohol Use: No Hx Substance Use: No Preferred Language: Faroese Communication Ability: Effective Visual Impairment: No Limitations Hearing Ability: Normal Dry End Tester Required: No Beliefs That Will Affect Care: None marital status: Current Living Situation: Spouse current occupational status: retired Other Information That Helps Us Care for You: No Feels Safe at Home: Yes Safety Concerns: Feels Safe At This Time Dental Care, Regularly: No Physical Activity Frequency: 1-2 Times per Week Seatbelt Use: always Sunscreen Use: Yes Assistive Devices: Glasses, Hearing Aid - Bilateral, Oxygen - Continuous and Walker Review of Systems Review of Systems: Other (Difficult to obtain given bipap us and SOB) Physical Exam Constitutional: well developed, well nourished, + well hydrated and cooperative Neck: trachea midline, no thyromegaly Respiratory: + labored breathing and + prolonged expiratory phase Aus cultation: + rales, + wheezes and + bronchial breath sounds Cardiovascular: RRR, no murmur, no edema Vessels: no JVD Extremities: + edema (1+ b/l) Gastrointestinal (Abdomen): Inspection/Auscultation: abdomen normal to inspection Musculoskeletal: Head/Neck/Chest: normocephalic and head atraumatic Skin: no rashes, warm and dry scattered echymoses Neurologic: moves all extremities and awake Psychiatric: Orientation: alert, oriented to person, oriented to place and cooperative Lymphatic: no cervical or axillary lymphadenopathy Results & Data Results & Data Vital Signs (Past 12 Hours) Vital Signs Temp Pulse Resp BP Pulse Ox O2 Del Method FiO2 03/30/23 00:00 89 20 124/80 95 CPAP 03/29/23 23:30 90 22 130/82 96 CPAP 03/29/23 23:10 92 H 27 H 94 30 03/29/23 23:00 109 H 22 117/88 95 03/29/23 22:30 95 H 24 134/83 96 03/29/23 22:00 102 H 24 128/78 95 03/29/23 22:30 96 CPAP 03/29/23 22:19 36.6 C 03/29/23 21:14 112 H 03/29/23 21:14 118 H 21 95 30 03/29/23 21:24 115 H 30 H 135/104 H 93 CPAP 03/29/23 21:24 CPAP Supervising Physician Co-Signing Physician Notes Patient seen and examined, chart reviewed, case discussed with Dr. Medina and I agree with the assessment and plan as documented above. In brief, patient is an 87yo male with emphysema/COPD, bronchiectasis, diastolic CHF presenting with SOB. Patient with progressive shortness of breath. Acute hypoxic respiratory failure noted today at [facility] with sats in the 70's which prompted transfer to [facility]. Patient in respiratory distress on arrival requiring placement of rescue BiPAP During exam patient able to speak in complete sentences. BiPAP was temporarily removed for Covid/Biofire testing and patient desaturated to 86% fairly rapidly. On exam he is resting comfortably Skin - intact HEENT - MMM, No JVD Heart - +S1/S2, regular, no m/r/g Lungs - Coarse breath sounds, labored breathing, scattered wheezing and rales Abd - +BS, soft, NT/ND Labs and images reviewed Covid+ since January Assessment/Plan: Acute on chronic respiratory failure with hypoxia and hypercapnia requiring placement of rescue BiPAP in the ER. Now improved, on 3L NC with adequate saturation Cause is likely multifactorial - patient with recent Covid-19. Doubt that his positive test today reflects true, active infection. However, patient likely suffering from some post-Covid effects, poor baseline pulmonary status with not much reserve. More strongly suspect today's issue to be COPD exacerbation, possible PNA. Possible mucus plugging in patient with bronchiectasis, possible CHF volume overload contributing as well. -Management with Solumedrol -Cefepime and Doxycycline - patient did test POSITIVE for MRSA -Mucinex/Hypertonic saline -Nebs -Maintain Covid isolation precautions until cleared by infection control in AM -Troponin has downtrended. Suspect supply-demand mismatch in setting of acute hypoxic respiratory failure and increased work of breathing -Lasix give - will monitor output. No further diuresis at this time given possible active infection/sepsis picture on arrival -Remainder of plan as above (7) Pneumonia Laterality: right Lung location: unspecified part of lung Pneumonia type: due to unspecified organism Qualified Code(s): J18.9 - Pneumonia, unspecified organism
[2023-03-30 00:35] LABS: Adenovirus PCR Not Detected (NotDetected); Bordetella parapertussis PCR Not Detected (NotDetected); Bordetella pertussis PCR Not Detected (NotDetected); Chlamydia pneumoniae PCR Not Detected (NotDetected); Coronavirus 229E PCR Not Detected (NotDetected); Coronavirus HKU1 PCR Not Detected (NotDetected); Coronavirus NL63 PCR Not Detected (NotDetected); Coronavirus OC43PCR Not Detected (NotDetected); Human Metapneumovirus PCR Not Detected (NotDetected); Influenza A PCR Not Detected (NotDetected); Influenza B PCR Not Detected (NotDetected); Mycoplasma pneumoniae PCR Not Detected (NotDetected); Parainfluenza Virus 1 PCR Not Detected (NotDetected); Parainfluenza Virus 2 PCR Not Detected (NotDetected); Parainfluenza Virus 3 PCR Not Detected (NotDetected); Parainfluenza Virus 4 PCR Not Detected (NotDetected); Respiratory Syncytial VirusPCR Not Detected (NotDetected); Rhinovirus/Enterovirus PCR Not Detected (NotDetected)
[2023-03-30 00:37] LABS: Coronavirus CoV-2 (COVID19)PCR DETECTED (NotDetected)
[2023-03-30] MEDS ORDERED: ONDANSETRON INJ 2 MG/ML 2 ML VIAL IV PRN (01:01)
--- NOTE | 2023-03-30 01:26 | CT Scan Report ---
Exam(s): CT CHEST Without Contrast EXAM: CT Chest Without Intravenous Contrast CLINICAL HISTORY: Reason for exam: Hypoxia with hx of bronchiectasis, COPD, CHF. TECHNIQUE: Axial computed tomography images of the chest without intravenous contrast. CTDI is 18.12 mGy and DLP is 494.54 mGy-cm. Automated exposure control was utilized for the study. A dose lowering technique was utilized adhering to the principles of ALARA. COMPARISON: CT chest 02/18/23 FINDINGS: There is moderate centrilobular emphysema. Diffuse bronchial wall thickening is present. There is also thickening of the pulmonary interstitium with gravitational distribution. Small volumes of pleural fluid are present bilaterally. There has been partial resolution of previously seen consolidative opacity in the posterior right upper lobe, with some residual opacity remaining. No pneumothorax is present. There is thoracic aortic atherosclerosis without aneurysm. Main pulmonary artery is enlarged suggesting pulmonary arterial hypertension. There is no adenopathy. Heart size is normal. There is left anterior descending coronary artery atherosclerosis. There is no significant pericardial effusion. There is a stable chronic compression fracture at T4. There is no acute fracture or dislocation. IMPRESSION: 1. Emphysema and bronchitis, as on prior. 2. Suspect superimposed pulmonary edema. Small volumes of pleural fluid bilaterally. 3. In this context, it is difficult to exclude an infectious process and clinical correlation is requested. 4. Of note, previously seen consolidative opacity in the posterior right upper lobe demonstrates near-complete resolution. Electronically signed by: Lulú Boggs M.D. 03/30/23 01:24 AM
[2023-03-30] MEDS: LACTATED RINGER'S 1,000 ML IV SCH ×2 (01:31→14:08)
[2023-03-30] MEDS: DOXYCYCLINE HYCLATE 100 MG in DEXTROSE 5% 100 ML IV SCH ×2 (01:32→14:11)
[2023-03-30] MEDS ORDERED: ALBUT/IPRATROP 3MG/0.5MG NEB 3 ML VIAL ONE (01:59)
[2023-03-30] MEDS: ALBUT/IPRATROP 3MG/0.5MG NEB 3 ML VIAL NEB SCH ×6 (02:02→22:31)
[2023-03-30] MEDS: oxyCODONE HCL IR 5 MG TAB (IMMEDIATE RELEASE) PO PRN ×4 (02:27→20:55)
--- NOTE | 2023-03-30 03:59 | Billing Data ---
Date of Service March 30, 2023 Coding Level of Care Code 42113 INT INP/OBS CARE
[2023-03-30] MEDS: LEVOTHYROXINE SODIUM 150 MCG TABLET PO SCH (06:40)
[2023-03-30 07:33] LABS: Base Excess VBG 7.3 mEq/L; HCO3 VBG 35 mmol/L; Oxygen Saturation VBG < 60.0 %; PCO2 VBG 65 mmHg (38-50); PO2 VBG 35 mmHg; pH VBG 7.34 (7.36-7.41)
[2023-03-30] MEDS: BUDESONIDE 0.5 MG/2 ML VIAL (PULMICORT) NEB SCH ×2 (07:37→19:17)
[2023-03-30] MEDS: FORMOTEROL 20 MCG/2 ML VIAL NEB SCH ×2 (07:37→19:17)
[2023-03-30 07:39] LABS: Hematocrit (blood only) 40.3 % (42.0-52.0); Hemoglobin 12.9 g/dl (14.0-18.0); Mean Corpuscular Hemoglobin 26.2 pg (25.0-34.0); Mean Corpuscular Volume 81.9 fL (80.0-100.0); Mean Platelet Volume 11.2 fL (9.4-12.4); Nucleated RBC # (auto) 0.02 K/uL (0-0.12); Nucleated RBC % (auto) 0.1 %; Platelet Count 233 K/uL (130-400); RDW Coefficient of Variation 19.3 % (11.5-14.5); RDW Standard Deviation 56.6 fL (36.4-46.3); Red Blood Count 4.92 M/uL (4.70-6.10); White Blood Count 15.27 K/ul (4.8-10.8)
--- NOTE | 2023-03-30 07:44 | Hospitalist Progress Note ---
Date of Service March 30, 2023 Assessment & Plan (1) Acute on chronic respiratory failure with hypoxia and hypercapnia: Plan: Patient is an 87-year-old male with past medical history of bronchiectasis, COPD (3L O2 @ baseline) diastolic heart failure, hypothyroidism, and hypertension returns to the hospital for hypoxia (sent from [facility]). Patient has had complicated past couple of months with multiple admissions to the hospital in relation to respiratory failure. Suspect respiratory failure is multifactorial, likely COPD +/- Viral PNA at present. Patient received BiPAP on admission and is currently stable on 3L NC. Respiratory Failure - Patient admitted to telemetry - Ddx: PNA vs COPD exacerbation vs Bronchiectasis vs Fluid Overload - CXR indicative of PNA w/ fluid overload * No change in the small bilateral pleural effusions and patchy bibasilar densities. This may represent atelectasis or a pneumonia. * Emphysema and chronic interstitial thickening persists. - CT Chest * Emphysema and bronchitis, as on prior. * Suspect superimposed pulmonary edema. Small volumes of pleural fluid bilaterally. * In this context, it is difficult to exclude an infectious process and clinical correlation is requested. * Of note, previously seen consolidative opacity in the posterior right upper lobe demonstrates near-complete resolution. - Pulmonary consult deferred at this time, will reserve for if patient's clinical picture worsens or bronchoscopy is indicated - Antibiotic Mgmt: Cefepime, Doxycycline (COPD exacerbation, Erythromycin allergy) - Blood cultures pending - Sputum cultures ordered - BiPAP weaned to 3L NC - Continue DuoNeb QID, Solumedrol 40 mg daily, Mucinex BID, and pulmonary toiled --- Antibiotics: Discontinue Cefepime, Continue Doxycycline for atypical coverage --- Follow CRP today and tomorrow (2) Bronchiectasis: Plan: - Hypertonic saline nebulizer twice daily scheduled - Otherwise as above (3) COPD exacerbation: Plan: - Continue DuoNeb QID - Continue Doxycycline - Continue Pulmonary toilet - Ongoing oxygen supplementation (3L NC at baseline) - Follows with Pulmonology outpatient (4) Chronic obstructive pulmonary disease: Plan: - Continue home medications in addition to scheduled DuoNeb - See COPD Exacerbation (5) Elevated troponin: Plan: - Troponin elevated on admission, now downtrending (84) - Patient w/o chest pain, dyspnea, or concerning features for DANA - Likely a/w demand ischemia - Cardiology consulted, appreciate recommendations --- Cardiology recommending return to home diuretics (6) Sepsis: Plan: - SIRS criteria met on admission: elevated WBC count, tachycardia, and tachypnea - Likely a/w PNA/COPD exacerbation - Given complex pulmonary hx and overload on presentation, fluid resuscitation was deferred - Continue Abx as above - Blood and sputum cultures ordered (7) Pneumonia: Plan: - Hx of potter-sensitive Pseudomonas on last admission (d/c 03/19/23) - Continue Cefepime - Continue Doxycycline for atypical coverage in setting of COPD exacerbation (8) History of COVID-19: Plan: - Antigen test positive on admission, likely d/t recent infection - Previously positive in January (02/11/23) - Continue Solu-Medrol, COVID-19 possible contribution to COPD exacerbation - Remdesavir not indicated at this time (9) Multifocal atrial tachycardia: Plan: - Continue metoprolol and diltiazem (10) (HFpEF) heart failure with preserved ejection fraction: Plan: - Patient on Bumex 2 mg qAM at baseline, received Lasix 40 mg IV in ED - AM Bumex held on admission given septic picture, vitals remain stable, no clinical evidence of fluid overload - Respiratory status remains stable, will re-instate diuresis if clinically worsening - Cardiology consulted, appreciate recommendations --- Cardiology recommending return to home diuretics (11) BPH (benign prostatic hyperplasia): Plan: - Continue finasteride and Flomax (12) Hypertension: Plan: -Continue metoprolol and diltiazem as above Plan Disposition: Admit to telemetry for acute respiratory failure CODE STATUS: DNR DNI as discussed with patient Diet: Heart healthy, low-sodium, easy to chew DVT prophylaxis: Heparin Admission and Anticipated Discharge Date Admission Date: March 29, 2023 Supervising Physician Co-Signing Physician Notes I personally examined the patient and verified all huerta points of history and exam, discussed case, and agree with decision making with Dr Fernandez Feeling okay. Seems to be breathing more or less at baseline. Vitals noted, in general he is awake and alert pleasant no distress. HEENT normocephalic atraumatic mucous membranes moist. Breathing unlabored no accessory muscle use good effort His lungs show scattered wheezes and left rales. Skin shows no rashes no pallor or icterus. dyspnea/hypoxiaseems to be rapidly improving to baseline. Imaging most consistent with resolving pneumonia from last hospitalization, but hard to rule out concomitant small secondary pneumoniaparticularly given his white count. Narrow antibiotic coverage, but continue care. DVT prophylaxisheparin Subjective 03/30: Isma was resting comfortably in bed upon arrival to the room. He notes ongoing dyspnea, but states that otherwise he feels well. He notes that [facility] sent him in because his O2 saturation was low. He states that he did not have any preceding URI symptoms (had COVID in January) but has wheezing at baseline (2/2 COPD). Patient denies any chest pain, nausea, emesis, fever, or chills. He is not experiencing any lightheadedness or dizziness. Patient notes that he follows with Pulmonology (Dr. Burt) at baseline and would like for him to be notified of his admission. In addition, patient is concerned about how quickly he loses IV sites, he notes that his last admission required a PIC line for access. Patient requested that this be discussed and relayed to his care team. Physical Exam Physical Exam: Gen: NAD, alert, interactive Neuro: AO x 3, no focal neurologic deficits HEENT: NCAT, no JVD, no LAD, MMM Resp:Mildly labored, significant/coarse bilateral wheezing CV:RRR, normal S1/S2, no M/R/G Abd: Soft, non-distended, no TTP, normoactive bowels, no masses Extr: 2+ dp bilaterally, 1+ LE edema bilaterally Skin: No rashes lesions or erythema Results & Data Results & Data Vital Signs (Past 12 Hours) Vital Signs Temp Pulse Pulse Resp BP BP BP 03/30/23 07:40 100 H 18 03/30/23 06:47 36.5 C 102 H 24 135/97 03/30/23 02:00 03/30/23 02:31 98 H 24 116/79 03/30/23 02:02 98 H 22 03/30/23 01:15 03/30/23 00:55 36.5 C 22 144/91 H 03/30/23 00:00 89 20 124/80 03/29/23 23:30 90 22 130/82 03/29/23 23:10 92 H 27 H 03/29/23 23:00 109 H 22 117/88 03/29/23 22:30 95 H 24 134/83 03/29/23 22:00 102 H 24 128/78 03/29/23 22:30 03/29/23 22:19 36.6 C 03/29/23 21:14 112 H 03/29/23 21:14 118 H 21 03/29/23 21:24 115 H 30 H 135/104 H 03/29/23 21:24 Pulse Ox O2 Del Method O2 Flow Rate FiO2 03/30/23 07:40 95 Nasal Cannula 3 03/30/23 06:47 95 Nasal Cannula 3.0 03/30/23 02:00 100 Nasal Cannula 6 03/30/23 02:31 100 Nasal Cannula 3 03/30/23 02:02 96 Nasal Cannula 4 03/30/23 01:15 Oxymask 8 03/30/23 00:55 99 Oxymask 10 03/30/23 00:00 95 CPAP 03/29/23 23:30 96 CPAP 03/29/23 23:10 94 30 03/29/23 23:00 95 03/29/23 22:30 96 03/29/23 22:00 95 03/29/23 22:30 96 CPAP 03/29/23 22:19 03/29/23 21:14 03/29/23 21:14 95 30 03/29/23 21:24 93 CPAP 03/29/23 21:24 CPAP Resident Activity Tracking Resident Involvement: Resident Care Provided Care Provided: Adult Hospital Medicine (7) Pneumonia Laterality: right Lung location: unspecified part of lung Pneumonia type: due to unspecified organism Qualified Code(s): J18.9 - Pneumonia, unspecified organism
[2023-03-30] MEDS: SODIUM CHLOR 7% 4 ML NEB NEB SCH ×2 (07:49→19:17)
--- NOTE | 2023-03-30 07:53 | XRay Report ---
XR chest 1V portable HISTORY: Chest pain, nonspecific COMPARISON: Chest 03/18/2023. FINDINGS: There are low lung volumes. No pneumothorax. The cardiac silhouette remains mildly enlarged . Interstitial thickening persists. There are small bilateral pleural effusions and patchy bibasilar densities, unchanged. Emphysema again noted. IMPRESSION: 1. No change in the small bilateral pleural effusions and patchy bibasilar densities. This may repres ent atelectasis or a pneumonia. 2. Emphysema and chronic interstitial thickening persists. ACT 112: Negative or not required by law. Electronically signed by: Amandeep Monsivais M.D. 03/30/2023 7:51 AM
[2023-03-30 07:56] LABS: Albumin Globulin Ratio 0.9 (0.9-2); Albumin Level 3.2 gm/dl (3.4-5.0); Bilirubin,Total 0.5 mg/dl (0.2-1.0); Calcium 8.5 mg/dl (8.6-10.3); Creatinine Clr Calc Pharmacy 42.1 ml/min; Est GFR (African American) 57.3 ml/min; Est GFR (Non-African American) 49.4 ml/min; Globulin 3.5 gm/dl (2.5-4.0); Magnesium 1.8 mg/dl (1.7-2.4); Potassium 4.1 mmol/L (3.5-5.1); Total Protein 6.7 gm/dl (6.0-8.3)
[2023-03-30 08:11] LABS: INR 0.9 (0.9-1.1); Prothrombin Time 10.4 Seconds (9.0-12.0)
[2023-03-30] MEDS: FINASTERIDE 5 MG TAB PO SCH (08:55)
[2023-03-30] MEDS: guaiFENesin 600 MG TABCR PO SCH ×2 (08:55→22:11)
[2023-03-30] MEDS: dilTIAZem HCL 180 MG CAPCR PO SCH (08:56)
[2023-03-30] MEDS: METOPROLOL TARTRATE 25 MG TAB PO SCH ×2 (08:56→20:57)
[2023-03-30] MEDS: HEPARIN SOD 5,000 UNIT/0.5 ML VIAL SQ SCH ×2 (08:56→20:57)
[2023-03-30] MEDS ORDERED: CEFEPIME 2,000 MG in SYRINGE 0 ML IV SCH (10:00)
[2023-03-30] MEDS ORDERED: FIRST - Mouthwash BLM 5 ML UDP PO ONE ×2 (11:05→13:15)
--- NOTE | 2023-03-30 11:41 | Cardiology Consultation ---
Date of Consultation March 30, 2023 Assessment & Plan (1) Acute on chronic respiratory failure with hypoxia and hypercapnia: -etiology is multifactorial. -bronchiectasis, COPD, recent COVID infection, and possible infectious etiology. -likely also a component of diastolic CHF. -on Bumex 2 mg daily as an outpatient. -would consider resuming diuretic therapy. (2) Multifocal atrial tachycardia: -EKG on presentation consistent with multifocal atrial tachycardia. -continue diltiazem and metoprolol tartrate. (3) Chronic diastolic CHF (congestive heart failure): -as above, consider diuretic therapy. (4) Hypertension: -adequate control on current regimen. (5) Elevated troponin: -likely secondary to a supply demand mismatch. -do not suspect an acute coronary syndrome. History of Present Illness Attending Physician: Buzz Dobson DO History of Present Illness Mr. Wesley is an 87-year-old male admitted earlier today with acute on chronic respiratory failure. This consultation was ordered to assist in his cardiac management. The patient was in his usual state of health until the evening of presentation. He was noticing shortness of breath and a nurse at [facility] check to saturation finding the to be reduced down to the 70s. An ambulance was summoned and the patient was sent to the emergency room for further care. On arrival here, the patient was in acute respiratory distress. He was placed on BiPAP which greatly improved his oxygen saturation. He was given a dose of intravenous Lasix, intravenous methylprednisolone, and was started on cefepime. At no time has he experienced substernal chest discomfort. He further denies syncope, presyncope, PND, orthopnea and change in his lower extremity edema. Past medical and surgical history 1. Hypertension 2. LVH 3. Hypercholesterolemia 4. Chronic diastolic CHF 5. Multifocal atrial tachycardia 6. Mild aortic insufficiency 7. Chronic respiratory failure 8. COPD 9. Bronchiectasis 10. Chronic renal failure 11. GERD 12. Hypothyroidism 13. Lymphedema 14. Spinal stenosis 15. DJD 16. Obstructive sleep apnea 17. Urethral stricture 18. Vitamin-D deficiency 19. Left inguinal hernia repair 20. Left TKR 21. Left femur ORIF 22. Tonsillectomy Social history , lives with his Quit tobacco use 20 years ago No alcohol Family history Noncontributory Review of systems A 10 point review systems was undertaken and negative except that described above. Allergies Allergy/AdvReac Type Severity Reaction Status Date / Time clarithromycin Allergy Intermediate RASH Verified 02/18/23 15:22 Home Medications Medication Instructions Recorded Confirmed Type Oxygen Home 12/31/22 03/29/23 History L.acidop,casei,lactis,rham-B.lact,lisa 2 cap PO DAILY #60 caps 03/19/23 03/29/23 Rx 625 mg (10 billion cell) capsule (Advanced Probiotic) acetaminophen 325 mg tablet 650 mg PO Q6H PRN FEVER/PAIN #60 03/19/23 03/29/23 Rx (Tylenol) tabs budesonide 0.5 mg/2 mL suspension 0.5 mg (2 mL) NEB BIDR #60 mL 03/19/23 03/29/23 Rx for nebulization bumetanide 2 mg tablet 2 mg PO QAM #30 tabs 03/19/23 03/29/23 Rx cholecalciferol (vitamin D3) 25 1,000 units PO QAM #30 tabs 03/19/23 03/29/23 Rx mcg (1,000 unit) tablet dextromethorphan-guaifenesin 10 5 ml PO Q6H PRN cough #237 mL 03/19/23 03/29/23 Rx mg-100 mg/5 mL oral syrup diclofenac sodium 1 % topical gel 2 g topical QID #100 grams 03/19/23 03/29/23 Rx diltiazem HCl 180 mg capsule,24 180 mg PO QAM 30 days #30 caps 03/19/23 03/29/23 Rx hr,extended release (Tiazac) finasteride 5 mg tablet 5 mg PO DAILY #30 tabs 03/19/23 03/29/23 Rx formoterol fumarate 20 mcg/2 mL 20 mcg (2 mL) NEB BIDR #120 mL 03/19/23 03/29/23 Rx solution for nebulization (Perforomist) ipratropium 0.5 mg-albuterol 3 mg 3 ml NEB Q6H PRN 03/19/23 03/29/23 Rx (2.5 mg base)/3 mL nebulization cough/wheeze/dyspnea #1 box soln levothyroxine 150 mcg tablet 150 mcg PO QAM #30 tabs 03/19/23 03/29/23 Rx melatonin 3 mg tablet 3 mg PO HS #30 tabs 03/19/23 03/29/23 Rx metoprolol tartrate 25 mg tablet 25 mg PO BID #60 tabs 03/19/23 03/29/23 Rx multivitamin 1 tab PO QAM #30 tabs 03/19/23 03/29/23 Rx omeprazole 40 mg capsule,delayed 40 mg PO DAILY #30 caps 03/19/23 03/29/23 Rx release oxycodone 5 mg tablet 2.5 mg PO Q4H PRN moderate-severe 03/19/23 03/29/23 Rx Pain #30 tabs sodium chloride 3 % for 4 ml inhalation BID #120 mL 03/19/23 03/29/23 Rx nebulization tamsulosin 0.4 mg capsule 0.4 mg PO HS #30 caps 03/19/23 03/29/23 Rx tobramycin 300 mg/5 mL in 0.225 % 300 mg (5 mL) inhalation BID 28 03/19/23 03/29/23 Rx sodium chloride for nebulization days #280 mL (Josue) Patient History Medical History Acute and chronic respiratory failure Acute on chronic diastolic (congestive) heart failure Acute on chronic kidney failure Advanced care planning/counseling discussion Avulsion injury of right elbow region Back problem BPH (benign prostatic hyperplasia) Bronchiectasis with (acute) exacerbation Candidal diaper rash Cellulitis of both lower extremities Cellulitis of left leg Cellulitis of left lower extremity CHI (closed head injury) Chronic obstructive pulmonary disease Chronic respiratory failure with hypoxia Closed hip fracture Contusion of elbow Contusion of face COPD (chronic obstructive pulmonary disease) Discussion about advance care planning held with family member Dyspnea and respiratory abnormalities Early satiety Elevated troponin Fluid retention in legs GERD (gastroesophageal reflux disease) Hematoma of right lower extremity History of bronchitis Hypernatremia Hypertension Hypothyroidism Left lumbar radiculopathy Leg length discrepancy Livedo reticularis Lumbar spinal stenosis Lymphedema MRSA (methicillin resistant Staphylococcus aureus) Multifocal pneumonia On home oxygen therapy 02 2LPM AT HS Osteoarthritis Palliative care by specialist Personal history of MRSA (methicillin resistant Staphylococcus aureus) Pulmonary nodule Sepsis Skin tear Sleep apnea cpap Spinal stenosis Syncope Urethral stricture Vitamin D deficiency Wheezing Surgical History History of cardiac cath 12/2019 - [place] - increased edema - no stents/angioplasty History of cholecystectomy History of colonoscopy History of herniorrhaphy left inguinal History of partial knee replacement left History of tonsillectomy History of tooth extraction Hx of surgical procedure LEFT FEMUR FX WITH REPAIR Family History Mother Cerebral atherosclerosis Father Diverticulosis Other No significant family history Denies family history of Ovarian cancer Prostate cancer Myocardial infarction Breast cancer Colorectal cancer Social History Smoking Status: Former smoker Tobacco Type: Cigarettes Age Started Using Tobacco: 22; packs per day: 1; Cigarettes Per Day: 20; Second Hand Exposure: No; Do You Dip or Chew Tobacco: No; Tobacco Cessation Education Requested by Patient: No Hx Alcohol Use: No Hx Substance Use: No Preferred Language: Polish Communication Ability: Effective Visual Impairment: No Limitations Hearing Ability: Normal Food Preparer Required: No Beliefs That Will Affect Care: None marital status: Current Living Situation: Spouse current occupational status: retired Other Information That Helps Us Care for You: No Feels Safe at Home: Yes Safety Concerns: Feels Safe At This Time Dental Care, Regularly: No Physical Activity Frequency: 1-2 Times per Week Seatbelt Use: always Sunscreen Use: Yes Assistive Devices: Glasses, Hearing Aid - Bilateral, Oxygen - Continuous and Walker Physical Exam Physical Exam: Exam per hospitalist team as patient in COVID isolation. Results & Data Vital Signs (Past 12 Hours) Vital Signs Temp Pulse Pulse Resp BP BP BP 03/30/23 10:59 91 H 20 03/30/23 09:00 100 H 03/30/23 07:56 36.6 C 92 H 18 123/81 03/30/23 07:40 100 H 18 03/30/23 06:47 36.5 C 102 H 24 135/97 03/30/23 02:00 03/30/23 02:31 98 H 24 116/79 03/30/23 02:02 98 H 22 03/30/23 01:15 03/30/23 00:55 36.5 C 22 144/91 H 03/30/23 00:00 89 20 124/80 Pulse Ox O2 Del Method O2 Flow Rate 03/30/23 10:59 98 Nasal Cannula 3 03/30/23 09:00 03/30/23 07:56 96 Nasal Cannula 3 03/30/23 07:40 95 Nasal Cannula 3 03/30/23 06:47 95 Nasal Cannula 3.0 03/30/23 02:00 100 Nasal Cannula 6 03/30/23 02:31 100 Nasal Cannula 3 03/30/23 02:02 96 Nasal Cannula 4 03/30/23 01:15 Oxymask 8 03/30/23 00:55 99 Oxymask 10 03/30/23 00:00 95 CPAP Laboratory Results CBC notes hemoglobin 12.9 hematocrit 40.3, white count 15.3, and platelet count of [id number]. Electrolytes note a sodium of 140, potassium 4.1, chloride 99, bicarb 32, BUN 59, and a creatinine 1.3. High sensitivity troponin on presentation was 935.5 with a follow-up value of 784.8. BNP is mildly elevated 143. Diagnostic Findings Echocardiogram performed back in January noted normal systolic function ejection fraction 55-60%. Current EKG notes MAT with left ventricular hypertrophy and poor R-wave progression across the anterior precordium. Chest x-ray notes cardiomegaly and poor inspiration. PG Care Time/CCT Total # of Minutes Spent Total Time Spent with Patient: Total time spent is greater than 50% in coordination of care (as documented) at patient's floor/unit and/or counseling patient: Coding Level of Care Code 83564 INT INP/OBS CARE MIN Diagnoses Acute on chronic respiratory failure with hypoxia and hypercapnia J96.21; J96.22 Multifocal atrial tachycardia I47.1 Chronic diastolic CHF (congestive heart failure) I50.32 Hypertension I10 Elevated troponin R77.8
[2023-03-30] MEDS ORDERED: FIRST - Mouthwash BLM 119 ML PO ONE (12:45)
--- NOTE | 2023-03-30 13:05 | Electrocardiogram Report ---
Test Reason : Blood Pressure : / mmHG Vent. Rate : 112 BPM Atrial Rate : 112 BPM P-R Int : 174 ms QRS Dur : 076 ms QT Int : 342 ms P-R-T Axes : 040 -29 020 degrees QTc Int : 466 ms Multifocal atrial tachycardia Minimal voltage criteria for LVH, may be normal variant ( R in aVL ) Possible Anterior infarct , age undetermined Abnormal ECG When compared with ECG of 16-MAR-2023 21:21, No significant change was found Confirmed by Tyler Ward ([id number]) on 03/30/2023 1:05:16 PM Referred By: Ish swan [facility] Confirmed By:Tyler Ward
[2023-03-30] MEDS: PANTOprazole 40 MG in SYRINGE 0 ML IV SCH (13:16)
[2023-03-30] MEDS: methylPREDNISolone 40 MG in SYRINGE 0 ML IV SCH (13:17)
--- NOTE | 2023-03-30 18:47 | Billing Data ---
Date of Service March 30, 2023 Coding Level of Care Code 88038 SUB INP/OBS CARE MIN
[2023-03-30] MEDS: TAMSULOSIN HCL 0.4 MG CAP PO SCH (20:57)
[2023-03-30] MEDS: MELATONIN 3 MG TAB PO SCH (20:58)
[2023-03-30] MEDS ORDERED: POLYETHYLENE (MIRALAX) 17 GM PACK PO PRN (23:03)
[2023-03-30] MEDS ORDERED: methylPREDNISolone 125 MG/2 ML VIAL IV SCH (23:45)
[2023-03-30] MEDS ORDERED: Nursing to Pharmacy Communication SCH (23:45)
[2023-03-31] MEDS: ALBUT/IPRATROP 3MG/0.5MG NEB 3 ML VIAL NEB SCH ×6 (02:06→23:00)
[2023-03-31] MEDS: DOXYCYCLINE HYCLATE 100 MG in DEXTROSE 5% 100 ML IV SCH ×2 (02:22→16:00)
[2023-03-31] MEDS: LEVOTHYROXINE SODIUM 150 MCG TABLET PO SCH (06:19)
[2023-03-31] MEDS: SODIUM CHLOR 7% 4 ML NEB NEB SCH ×2 (06:59→18:24)
[2023-03-31] MEDS: FORMOTEROL 20 MCG/2 ML VIAL NEB SCH ×2 (06:59→18:23)
[2023-03-31] MEDS: BUDESONIDE 0.5 MG/2 ML VIAL (PULMICORT) NEB SCH ×2 (06:59→18:23)
--- NOTE | 2023-03-31 07:14 | Hospitalist Progress Note ---
Date of Service March 31, 2023 Assessment & Plan (1) Acute on chronic respiratory failure with hypoxia and hypercapnia: Plan: Patient is an 87-year-old male with past medical history of bronchiectasis, COPD (3L O2 @ baseline) diastolic heart failure, hypothyroidism, and hypertension returns to the hospital for hypoxia (sent from [facility]). Patient has had complicated past couple of months with multiple admissions to the hospital in relation to respiratory failure. Suspect respiratory failure is multifactorial, likely COPD +/- Viral PNA at present. Patient received BiPAP on admission and is currently stable on 3L NC. Respiratory Failure - Patient admitted to telemetry - Ddx: PNA vs COPD exacerbation vs Bronchiectasis vs Fluid Overload - CXR indicative of PNA w/ fluid overload * No change in the small bilateral pleural effusions and patchy bibasilar densities. This may represent atelectasis or a pneumonia. * Emphysema and chronic interstitial thickening persists. - CT Chest * Emphysema and bronchitis, as on prior. * Suspect superimposed pulmonary edema. Small volumes of pleural fluid bilaterally. * In this context, it is difficult to exclude an infectious process and clinical correlation is requested. * Of note, previously seen consolidative opacity in the posterior right upper lobe demonstrates near-complete resolution. - Pulmonary consult deferred at this time, will reserve for if patient's clinical picture worsens or bronchoscopy is indicated - Antibiotic Mgmt: Cefepime, Doxycycline (COPD exacerbation, Erythromycin allergy) - Blood cultures pending - Sputum cultures ordered - BiPAP weaned to 3L NC - Continue DuoNeb QID, Solumedrol 40 mg daily, Mucinex BID, and pulmonary toiled --- Antibiotics: Continue Doxycycline for atypical coverage --- Follow CRP downtrending Leukocytosis: - Elevation to 20 7/18 - Likely a/w ongoing steroids - Ongoing clinical improvement and downtrending CRP support steroid etiology Elevated Creatinine - Suspect a/w mild dehydration, volume status clinical challenging to determine - Patient with decreased LE edema, but ongoing bi-basilar crackles - Mucous membranes appear moist on exam - Will continue diuretic hold at this time and avoid IVF, but encourage PO fluid intake - Continue to trend Cr (2) Bronchiectasis: Plan: - Hypertonic saline nebulizer twice daily scheduled - Otherwise as above (3) COPD exacerbation: Plan: - Continue DuoNeb QID - Continue Doxycycline - Continue Pulmonary toilet - Ongoing oxygen supplementation (3L NC at baseline) - Follows with Pulmonology outpatient (4) Chronic obstructive pulmonary disease: Plan: - Continue home medications in addition to scheduled DuoNeb - See COPD Exacerbation (5) Elevated troponin: Plan: - Troponin elevated on admission, now downtrending (84) - Patient w/o chest pain, dyspnea, or concerning features for DANA - Likely a/w demand ischemia - Cardiology consulted, appreciate recommendations (6) Sepsis: Plan: - SIRS criteria met on admission: elevated WBC count, tachycardia, and tachypnea - Likely a/w PNA/COPD exacerbation - Given complex pulmonary hx and overload on presentation, fluid resuscitation was deferred - Continue Abx as above - Blood and sputum cultures ordered (7) Pneumonia: Plan: - Hx of potter-sensitive Pseudomonas on last admission (d/c 03/19/23) - Continue Cefepime - Continue Doxycycline for atypical coverage in setting of COPD exacerbation (8) History of COVID-19: Plan: - Antigen test positive on admission, likely d/t recent infection - Previously positive in January (02/11/23) - Continue Solu-Medrol, COVID-19 possible contribution to COPD exacerbation - Remdesavir not indicated at this time (9) Multifocal atrial tachycardia: Plan: - Continue metoprolol and diltiazem (10) (HFpEF) heart failure with preserved ejection fraction: Plan: - Patient on Bumex 2 mg qAM at baseline, received Lasix 40 mg IV in ED - AM Bumex held on admission given septic picture, vitals remain stable, no clinical evidence of fluid overload - Respiratory status remains stable, will re-instate diuresis if clinically worsening - Cardiology consulted, appreciate recommendations (11) BPH (benign prostatic hyperplasia): Plan: - Continue finasteride and Flomax (12) Hypertension: Plan: -Continue metoprolol and diltiazem as above (13) Leukocytosis: (14) Elevated serum creatinine: Plan Disposition: Stable for discharge to nursing facility when bed available/auth approved, patient preference for [facility] CODE STATUS: DNR DNI as discussed with patient Diet: Heart healthy, low-sodium, easy to chew DVT prophylaxis: Heparin Admission and Anticipated Discharge Date Admission Date: March 29, 2023 Supervising Physician Co-Signing Physician Notes I personally examined the patient and verified all huerta points of history and exam, discussed case, and agree with decision making with Dr Fernandez Feeling okay. no new breathing issues. not able to return to [facility] Vitals noted, in general he is awake and alert pleasant no distress. HEENT normocephalic atraumatic mucous membranes moist. Breathing unlabored no accessory muscle use good effort Skin shows no rashes no pallor or icterus. dyspnea/hypoxiawith hindsight almost certainly was COPD exac not recurrent pneumonia. stable for return to snf - case management working on arranging. continue steroids, doxy DVT prophylaxisheparin Subjective 03/31: Patient resting comfortably this AM upon arrival. He notes that his breathing has returned to baseline and that he is feeling much improved. He denies any chest pain, emesis, nausea, fevers, or chills. He is not experiencing lightheadedness or dizziness. Patient notes that his mouth feels more dry than normal today. He experienced no acute events overnight and has no concerns this morning. Questions answered. Physical Exam Physical Exam: Gen: NAD, alert, interactive Neuro: AO x 3, no focal neurologic deficits HEENT: NCAT, no JVD, no LAD, dry mucous membranes Resp:Mildly labored, coarse bilateral wheezing (improved), faint basilar crackles CV:RRR, normal S1/S2, no M/R/G Abd: Soft, non-distended, no TTP, normoactive bowels, no masses Extr: 2+ dp bilaterally, trace LE edema bilaterally Skin: No rashes lesions or erythema Results & Data Results & Data Vital Signs (Past 12 Hours) Vital Signs Temp Pulse Pulse Resp BP Pulse Ox O2 Del Method 03/31/23 06:59 79 18 95 Nasal Cannula 03/31/23 03:00 36 C L 89 20 127/80 100 CPAP 03/31/23 02:28 90 24 98 CPAP 03/30/23 22:57 87 03/30/23 23:07 36.7 C 85 20 110/75 100 BiPAP 03/30/23 20:40 Nasal Cannula 03/30/23 22:37 18 90 CPAP 03/30/23 19:18 118 H 22 97 Nasal Cannula O2 Flow Rate 03/31/23 06:59 3 03/31/23 03:00 5 03/31/23 02:28 5 03/30/23 22:57 03/30/23 23:07 03/30/23 20:40 3 03/30/23 22:37 5 07/17/23 19:18 3 Resident Activity Tracking Resident Involvement: Resident Care Provided Care Provided: Adult Hospital Medicine (7) Pneumonia Laterality: right Lung location: unspecified part of lung Pneumonia type: due to unspecified organism Qualified Code(s): J18.9 - Pneumonia, unspecified organism (13) Leukocytosis Leukocytosis type: bandemia Qualified Code(s): D72.825 - Bandemia
[2023-03-31 07:38] LABS: Hemoglobin 11.2 g/dl (14.0-18.0); Mean Corpuscular Hemoglobin 25.9 pg (25.0-34.0); Mean Platelet Volume 12.3 fL (9.4-12.4); Nucleated RBC # (auto) 0.03 K/uL (0-0.12); Nucleated RBC % (auto) 0.1 %; Platelet Count 268 K/uL (130-400); RDW Coefficient of Variation 18.7 % (11.5-14.5); RDW Standard Deviation 55.5 fL (36.4-46.3); Red Blood Count 4.32 M/uL (4.70-6.10); White Blood Count 20.96 K/ul (4.8-10.8)
[2023-03-31] MEDS: ACETAMINOPHEN 325 MG TAB PO PRN (07:49)
[2023-03-31] MEDS: HEPARIN SOD 5,000 UNIT/0.5 ML VIAL SQ SCH ×2 (07:49→21:36)
[2023-03-31] MEDS: FINASTERIDE 5 MG TAB PO SCH (07:50)
[2023-03-31] MEDS: dilTIAZem HCL 180 MG CAPCR PO SCH (07:50)
[2023-03-31] MEDS: guaiFENesin 600 MG TABCR PO SCH ×2 (07:50→21:37)
[2023-03-31] MEDS: METOPROLOL TARTRATE 25 MG TAB PO SCH ×2 (07:50→21:37)
[2023-03-31 08:03] LABS: BUN Creatinine Ratio 42.4 (10-20); C Reactive Protein 1.47 mg/dl (0-0.5); Calcium 8.1 mg/dl (8.6-10.3); Creatinine Clr Calc Pharmacy 34.7 ml/min; Est GFR (African American) 45.2 ml/min
[2023-03-31] MEDS: LACTOBACILLUS ACIDOPHILUS 1 GM PACK PO SCH ×2 (12:14→17:25)
[2023-03-31] MEDS: PANTOprazole 40 MG in SYRINGE 0 ML IV SCH (12:14)
[2023-03-31] MEDS: oxyCODONE HCL IR 5 MG TAB (IMMEDIATE RELEASE) PO PRN (12:14)
[2023-03-31] MEDS: methylPREDNISolone 40 MG in SYRINGE 0 ML IV SCH (12:16)
--- NOTE | 2023-03-31 18:29 | Billing Data ---
Date of Service March 31, 2023 Coding Level of Care Code 81023 SUB INP/OBS CARE
[2023-03-31] MEDS: TAMSULOSIN HCL 0.4 MG CAP PO SCH (21:36)
[2023-03-31] MEDS: MELATONIN 3 MG TAB PO SCH (21:36)
[2023-04-01] MEDS: ALBUT/IPRATROP 3MG/0.5MG NEB 3 ML VIAL NEB SCH ×7 (03:14→22:32)
[2023-04-01] MEDS: DOXYCYCLINE HYCLATE 100 MG in DEXTROSE 5% 100 ML IV SCH ×2 (03:25→13:54)
[2023-04-01] MEDS: LEVOTHYROXINE SODIUM 150 MCG TABLET PO SCH (05:38)
[2023-04-01 06:41] LABS: Hematocrit (blood only) 35.6 % (42.0-52.0); Hemoglobin 11.3 g/dl (14.0-18.0); Mean Corpuscular Hemoglobin 26.3 pg (25.0-34.0); Mean Corpuscular Hgb Conc 31.7 g/dL (32.0-36.0); Mean Platelet Volume 11.3 fL (9.4-12.4); Nucleated RBC # (auto) 0.02 K/uL (0-0.12); Nucleated RBC % (auto) 0.1 %; Platelet Count 222 K/uL (130-400); RDW Coefficient of Variation 18.9 % (11.5-14.5); RDW Standard Deviation 56.1 fL (36.4-46.3); Red Blood Count 4.29 M/uL (4.70-6.10)
[2023-04-01] MEDS: SODIUM CHLOR 7% 4 ML NEB NEB SCH ×2 (07:02→19:49)
[2023-04-01] MEDS: BUDESONIDE 0.5 MG/2 ML VIAL (PULMICORT) NEB SCH ×2 (07:02→19:50)
[2023-04-01] MEDS: FORMOTEROL 20 MCG/2 ML VIAL NEB SCH ×2 (07:02→19:49)
[2023-04-01 07:15] LABS: BUN Creatinine Ratio 55.8 (10-20); Calcium 8.1 mg/dl (8.6-10.3); Creatinine Clr Calc Pharmacy 48.5 ml/min; Est GFR (African American) 67.8 ml/min; Est GFR (Non-African American) 58.5 ml/min; Potassium 4.2 mmol/L (3.5-5.1)
--- NOTE | 2023-04-01 08:02 | Hospitalist Progress Note ---
Date of Service April 01, 2023 Assessment & Plan (1) Acute on chronic respiratory failure with hypoxia and hypercapnia: Plan: Patient is an 87-year-old male with past medical history of bronchiectasis, COPD (3L O2 @ baseline) diastolic heart failure, hypothyroidism, and hypertension returns to the hospital for hypoxia (sent from [facility]). Patient has had complicated past couple of months with multiple admissions to the hospital in relation to respiratory failure. Suspect respiratory failure is multifactorial, likely COPD +/- Viral PNA at present. Patient received BiPAP on admission and is currently stable on 3L NC. Respiratory Failure - Patient admitted to telemetry - Ddx: PNA vs COPD exacerbation vs Bronchiectasis vs Fluid Overload - CXR indicative of PNA w/ fluid overload * No change in the small bilateral pleural effusions and patchy bibasilar densities. This may represent atelectasis or a pneumonia. * Emphysema and chronic interstitial thickening persists. - CT Chest * Emphysema and bronchitis, as on prior. * Suspect superimposed pulmonary edema. Small volumes of pleural fluid bilaterally. * In this context, it is difficult to exclude an infectious process and clinical correlation is requested. * Of note, previously seen consolidative opacity in the posterior right upper lobe demonstrates near-complete resolution. - Pulmonary consult deferred at this time, will reserve for if patient's clinical picture worsens or bronchoscopy is indicated - Antibiotic Mgmt: Doxycycline (COPD exacerbation, Erythromycin allergy) - Blood cultures - No growth @ 48 hours - Sputum cultures ordered - CPAP downtrending --- Continue DuoNeb QID, Solumedrol 40 mg daily, Mucinex BID, and pulmonary toiled Leukocytosis: - Elevation to 20 03/31-04/01 - Likely a/w ongoing steroids - Ongoing clinical improvement and downtrending CRP support steroid etiology Elevated Creatinine 03/31 (Resolved 04/01) - Suspect a/w mild dehydration, volume status clinical challenging to determine - LE edema unchanged, bi-basilar crackles resolved - Will continue diuretic hold at this time and avoid IVF, but encourage PO fluid intake - Continue to trend Cr (2) Bronchiectasis: Plan: - Hypertonic saline nebulizer twice daily scheduled - Otherwise as above (3) COPD exacerbation: Plan: - Continue DuoNeb QID, Doxycycline, pulmonary toilet, and O2 supplementation (3L baseline) (4) Chronic obstructive pulmonary disease: Plan: - Continue home medications in addition to scheduled DuoNeb - See COPD Exacerbation (5) Elevated troponin: Plan: - Troponin elevated on admission, now downtrending - Patient w/o chest pain, dyspnea, or concerning features for ACS - Likely a/w demand ischemia - Cardiology consulted, appreciate recommendations * Holding diuresis at this time d/t clinical hypovolemia (6) Sepsis: Plan: - SIRS criteria met on admission: elevated WBC count, tachycardia, and tachypnea - Likely a/w PNA/COPD exacerbation - Given complex pulmonary hx and overload on presentation, fluid resuscitation was deferred - Continue Abx as above - Blood and sputum cultures ordered (7) Pneumonia: Plan: - Hx of potter-sensitive Pseudomonas on last admission (d/c 03/19/23) - Continue Cefepime - Continue Doxycycline for atypical coverage in setting of COPD exacerbation (8) History of COVID-19: Plan: - Antigen test positive on admission, likely d/t recent infection - Previously positive in January (02/11/23) - Continue Solu-Medrol, COVID-19 possible contribution to COPD exacerbation - Remdesavir not indicated at this time (9) Multifocal atrial tachycardia: Plan: - Continue metoprolol and diltiazem (10) (HFpEF) heart failure with preserved ejection fraction: Plan: - Patient on Bumex 2 mg qAM at baseline, received Lasix 40 mg IV in ED - AM Bumex held on admission given septic picture, vitals remain stable, no clinical evidence of fluid overload - Respiratory status remains stable, will re-instate diuresis if clinically worsening - Cardiology consulted, appreciate recommendations (11) BPH (benign prostatic hyperplasia): Plan: - Continue finasteride and Flomax (12) Hypertension: Plan: -Continue metoprolol and diltiazem as above (13) Leukocytosis: (14) Elevated serum creatinine: Plan Disposition: Stable for discharge, pending [facility], following Code: DNR/DNI Diet: Heart healthy, low-sodium, easy to chew DVT prophylaxis: Heparin Admission and Anticipated Discharge Date Admission Date: March 29, 2023 Supervising Physician Co-Signing Physician Notes I personally examined the patient and verified all huerta points of history and exam, discussed case, and agree with decision making with Dr Fernandez Feeling okay. no new breathing issues. not able to return to [facility] care Vitals noted, in general he is awake and alert pleasant no distress. HEENT normocephalic atraumatic mucous membranes moist. Breathing unlabored no accessory muscle use good effort Skin shows no rashes no pallor or icterus. dyspnea/hypoxiawith hindsight almost certainly was COPD exac not recurrent pneumonia. stable for return to snf - case management working on arranging. continue steroids, doxy. chronic diastolic CHF appears compensated DVT prophylaxisheparin Subjective 04/01: Patient comfortable, sleeping in bed upon arrival. Patient notes no changes in his breathing, he notes he is back to his baseline. He is not experiencing any dyspnea, pleuritic pain, or increased wheezing. He denies chest pain, nausea, emesis, fevers or chills. Patient has no acute concerns and had no events overnight. Patient planning to transition to [facility] upon discharge. Physical Exam Physical Exam: Gen: NAD, alert, interactive Neuro: AO x 3, no focal neurologic deficits HEENT: NCAT, no JVD, no LAD, dry mucous membranes Resp:Non-labored, bilateral wheezing (improved) CV:RRR, normal S1/S2, no M/R/G Abd: Soft, non-distended, no TTP, normoactive bowels, no masses Extr: 2+ dp bilaterally, trace LE edema bilaterally Skin: No rashes lesions or erythema Results & Data Results & Data Vital Signs (Past 12 Hours) Vital Signs Temp Pulse Resp BP BP Pulse Ox O2 Del Method 04/01/23 07:27 36.6 C 94 H 16 138/87 138/87 98 CPAP 04/01/23 07:03 97 H 18 98 BiPAP 04/01/23 03:15 88 18 90 04/01/23 01:07 Nasal Cannula 03/31/23 23:01 100 H 20 96 BiPAP 03/31/23 21:09 36.7 C 104 H 20 137/74 95 Nasal Cannula O2 Flow Rate 04/01/23 07:27 04/01/23 07:03 7 04/01/23 03:15 3 04/01/23 01:07 3 03/31/23 23:01 3 03/31/23 21:09 3 Resident Activity Tracking Resident Involvement: Resident Care Provided Care Provided: Adult Hospital Medicine (7) Pneumonia Laterality: right Lung location: unspecified part of lung Pneumonia type: due to unspecified organism Qualified Code(s): J18.9 - Pneumonia, unspecified organism (13) Leukocytosis Leukocytosis type: bandemia Qualified Code(s): D72.825 - Bandemia
[2023-04-01] MEDS: LACTOBACILLUS ACIDOPHILUS 1 GM PACK PO SCH ×3 (08:39→17:30)
[2023-04-01] MEDS: METOPROLOL TARTRATE 25 MG TAB PO SCH ×2 (09:30→20:33)
[2023-04-01] MEDS: HEPARIN SOD 5,000 UNIT/0.5 ML VIAL SQ SCH ×2 (09:30→20:32)
[2023-04-01] MEDS: guaiFENesin 600 MG TABCR PO SCH ×2 (09:30→20:32)
[2023-04-01] MEDS: FINASTERIDE 5 MG TAB PO SCH (09:30)
[2023-04-01] MEDS: dilTIAZem HCL 180 MG CAPCR PO SCH (09:30)
[2023-04-01] MEDS: methylPREDNISolone 40 MG in SYRINGE 0 ML IV SCH (12:22)
[2023-04-01] MEDS: PANTOprazole 40 MG TAB PO SCH (12:22)
[2023-04-01] MEDS: oxyCODONE HCL IR 5 MG TAB (IMMEDIATE RELEASE) PO PRN ×2 (15:20→20:46)
[2023-04-01] MEDS: POLYETHYLENE (MIRALAX) 17 GM PACK PO PRN (17:30)
--- NOTE | 2023-04-01 19:16 | Billing Data ---
Date of Service April 01, 2023 Coding Level of Care Code 54011 SUB INP/OBS CARE
[2023-04-01] MEDS: MELATONIN 3 MG TAB PO SCH (20:32)
[2023-04-01] MEDS: TAMSULOSIN HCL 0.4 MG CAP PO SCH (20:33)
[2023-04-01] MEDS ORDERED: bisacodyL 10 MG SUPP PR STA (21:24)
[2023-04-02] MEDS: ALBUT/IPRATROP 3MG/0.5MG NEB 3 ML VIAL NEB SCH ×6 (02:27→22:02)
[2023-04-02] MEDS: DOXYCYCLINE HYCLATE 100 MG in DEXTROSE 5% 100 ML IV SCH ×2 (02:31→13:35)
[2023-04-02] MEDS: LEVOTHYROXINE SODIUM 150 MCG TABLET PO SCH (05:59)
[2023-04-02] MEDS: FORMOTEROL 20 MCG/2 ML VIAL NEB SCH ×2 (07:13→19:13)
[2023-04-02] MEDS: BUDESONIDE 0.5 MG/2 ML VIAL (PULMICORT) NEB SCH ×2 (07:13→19:13)
[2023-04-02] MEDS: SODIUM CHLOR 7% 4 ML NEB NEB SCH ×2 (07:13→19:13)
[2023-04-02 07:18] LABS: Hemoglobin 11.2 g/dl (14.0-18.0); Mean Corpuscular Hemoglobin 25.9 pg (25.0-34.0); Mean Corpuscular Hgb Conc 31.1 g/dL (32.0-36.0); Mean Corpuscular Volume 83.3 fL (80.0-100.0); Mean Platelet Volume 12.1 fL (9.4-12.4); Platelet Count 239 K/uL (130-400); RDW Coefficient of Variation 19.2 % (11.5-14.5); RDW Standard Deviation 57.7 fL (36.4-46.3); Red Blood Count 4.32 M/uL (4.70-6.10); White Blood Count 24.26 K/ul (4.8-10.8)
[2023-04-02 07:33] LABS: Calcium 8.5 mg/dl (8.6-10.3); Creatinine Clr Calc Pharmacy 54.8 ml/min; Est GFR (African American) 78.6 ml/min; Est GFR (Non-African American) 67.8 ml/min; Potassium 5.6 mmol/L (3.5-5.1)
[2023-04-02] MEDS: METOPROLOL TARTRATE 25 MG TAB PO SCH ×2 (08:48→20:21)
[2023-04-02] MEDS: LACTOBACILLUS ACIDOPHILUS 1 GM PACK PO SCH ×3 (08:48→17:17)
[2023-04-02] MEDS: FINASTERIDE 5 MG TAB PO SCH (08:49)
[2023-04-02] MEDS: HEPARIN SOD 5,000 UNIT/0.5 ML VIAL SQ SCH ×2 (08:49→20:22)
[2023-04-02] MEDS: dilTIAZem HCL 180 MG CAPCR PO SCH (08:49)
[2023-04-02] MEDS: guaiFENesin 600 MG TABCR PO SCH ×2 (08:49→20:21)
--- NOTE | 2023-04-02 11:05 | Hospitalist Progress Note ---
Date of Service April 02, 2023 Assessment & Plan (1) Acute on chronic respiratory failure with hypoxia and hypercapnia: Plan: Patient is an 87-year-old male with past medical history of bronchiectasis, COPD (3L O2 @ baseline) diastolic heart failure, hypothyroidism, and hypertension returns to the hospital for hypoxia (sent from [facility]). Patient has had complicated past couple of months with multiple admissions to the hospital in relation to respiratory failure. Suspect respiratory failure is multifactorial, likely COPD +/- Viral PNA at present. Patient received BiPAP on admission and is currently stable on 3L NC. Respiratory Failure - Patient admitted to telemetry - Ddx: PNA vs COPD exacerbation vs Bronchiectasis vs Fluid Overload - CXR indicative of PNA w/ fluid overload * No change in the small bilateral pleural effusions and patchy bibasilar densities. This may represent atelectasis or a pneumonia. * Emphysema and chronic interstitial thickening persists. - CT Chest * Emphysema and bronchitis, as on prior. * Suspect superimposed pulmonary edema. Small volumes of pleural fluid bilaterally. * In this context, it is difficult to exclude an infectious process and clinical correlation is requested. * Of note, previously seen consolidative opacity in the posterior right upper lobe demonstrates near-complete resolution. - Pulmonary consult deferred at this time, will reserve for if patient's clinical picture worsens or bronchoscopy is indicated - Antibiotic Mgmt: Doxycycline (COPD exacerbation, Erythromycin allergy) - Blood cultures - No growth - Sputum cultures ordered - CPAP downtrending --- Continue DuoNeb QID, Solumedrol 40 mg daily, Mucinex BID, and pulmonary toilet Leukocytosis: - Elevation to 20 03/31-04/01 - Likely a/w ongoing steroids - Ongoing clinical improvement and downtrending CRP support steroid etiology Elevated Creatinine 03/31 (Resolved 04/01) - Suspect a/w mild dehydration, volume status clinical challenging to determine - LE edema unchanged, bi-basilar crackles resolved - Will continue diuretic hold at this time and avoid IVF, but encourage PO fluid intake - Continue to trend Cr (2) Bronchiectasis: Plan: - Hypertonic saline nebulizer twice daily scheduled - Otherwise as above (3) COPD exacerbation: Plan: - Continue DuoNeb QID, Doxycycline, pulmonary toilet, and O2 supplementation (3L baseline) (4) Chronic obstructive pulmonary disease: Plan: - Continue home medications in addition to scheduled DuoNeb - See COPD Exacerbation (5) Elevated troponin: Plan: - Troponin elevated on admission, now downtrending - Patient w/o chest pain, dyspnea, or concerning features for ACS - Likely a/w demand ischemia - Cardiology consulted, appreciate recommendations * Holding diuresis at this time d/t clinical hypovolemia (6) Sepsis: Plan: - SIRS criteria met on admission: elevated WBC count, tachycardia, and tachypnea - Likely a/w PNA/COPD exacerbation - Given complex pulmonary hx and overload on presentation, fluid resuscitation was deferred - Continue Abx as above - Blood and sputum cultures ordered (7) Pneumonia: Plan: - Hx of potter-sensitive Pseudomonas on last admission (d/c 03/19/23) - Continue Cefepime - Continue Doxycycline for atypical coverage in setting of COPD exacerbation (8) History of COVID-19: Plan: - Antigen test positive on admission, likely d/t recent infection - Previously positive in January (02/11/23) - Continue Solu-Medrol, COVID-19 possible contribution to COPD exacerbation - Remdesavir not indicated at this time (9) Multifocal atrial tachycardia: Plan: - Continue metoprolol and diltiazem (10) (HFpEF) heart failure with preserved ejection fraction: Plan: - Patient on Bumex 2 mg qAM at baseline, received Lasix 40 mg IV in ED - AM Bumex held on admission given septic picture, vitals remain stable, no clinical evidence of fluid overload - Respiratory status remains stable, will re-instate diuresis if clinically worsening - Cardiology consulted, appreciate recommendations (11) BPH (benign prostatic hyperplasia): Plan: - Continue finasteride and Flomax (12) Hypertension: Plan: -Continue metoprolol and diltiazem as above (13) Leukocytosis: (14) Elevated serum creatinine: Plan Disposition: Stable for discharge, pending [facility], following Code: DNR/DNI Diet: Heart healthy, low-sodium, easy to chew DVT prophylaxis: Heparin Admission and Anticipated Discharge Date Admission Date: March 29, 2023 Supervising Physician Co-Signing Physician Notes I personally examined the patient and verified all huerta points of history and exam, discussed case, and agree with decision making with Dr Fernandez no new problems. waiting on bureaucracy Vitals noted, in general he is awake and alert pleasant no distress. HEENT normocephalic atraumatic mucous membranes moist. Breathing unlabored no accessory muscle use good effort Skin shows no rashes no pallor or icterus. dyspnea/hypoxiawith hindsight almost certainly was COPD exac not recurrent pneumonia. stable for return to snf - case management working on arranging. continue steroids (changed to PO), doxy. chronic diastolic CHF appears compensated DVT prophylaxisheparin Subjective 04/02: Patient sleeping comfortably upon arrival, pleasant upon awakening. He notes no acute concerns or distress. Patient denies chest pain, dyspnea, or pleuritic pain. Hhe denies abdominal pain, nausea, or emesis. He notes that he is at his baseline and is anticipating discharge back to SNF. Physical Exam Physical Exam: Gen: NAD, alert, interactive Neuro: AO x 3, no focal neurologic deficits HEENT: NCAT, no JVD, no LAD, dry mucous membranes Resp:Non-labored, bilateral wheezing (ongoing improvement) CV:RRR, normal S1/S2, no M/R/G Abd: Soft, non-distended, no TTP, normoactive bowels, no masses Extr: 2+ dp bilaterally, trace LE edema bilaterally Skin: No rashes lesions or erythema Results & Data Results & Data Vital Signs (Past 12 Hours) Vital Signs Temp Pulse Resp BP Pulse Ox O2 Del Method O2 Flow Rate 04/02/23 07:45 37.5 C 100 H 18 128/82 95 Nasal Cannula 2.5 04/02/23 07:14 99 H 18 98 Nasal Cannula 3 04/02/23 02:28 100 H 18 93 Nasal Cannula 3 Resident Activity Tracking Resident Involvement: Resident Care Provided Care Provided: Adult Hospital Medicine (7) Pneumonia Laterality: right Lung location: unspecified part of lung Pneumonia type: due to unspecified organism Qualified Code(s): J18.9 - Pneumonia, unspecified organism (13) Leukocytosis Leukocytosis type: bandemia Qualified Code(s): D72.825 - Bandemia
[2023-04-02] MEDS: predniSONE 20 MG TAB PO SCH (12:12)
[2023-04-02] MEDS: PANTOprazole 40 MG TAB PO SCH (12:12)
[2023-04-02] MEDS: oxyCODONE HCL IR 5 MG TAB (IMMEDIATE RELEASE) PO PRN ×2 (12:42→21:24)
[2023-04-02] MEDS: ACETAMINOPHEN 325 MG TAB PO PRN (13:50)
--- NOTE | 2023-04-02 14:40 | Electrocardiogram Report ---
Test Reason : Blood Pressure : / mmHG Vent. Rate : 109 BPM Atrial Rate : 109 BPM P-R Int : 138 ms QRS Dur : 078 ms QT Int : 334 ms P-R-T Axes : 034 -33 006 degrees QTc Int : 449 ms Sinus tachycardia Left axis deviation Moderate voltage criteria for LVH, may be normal variant Poor R wave progression, consider anterior TX vs. lead placement vs. LVH Abnormal ECG Confirmed by Stas Patton ([id number]) on 04/02/2023 2:40:24 PM Referred By: Ish swan [facility] Confirmed By:Yefri Patton
--- NOTE | 2023-04-02 19:18 | Billing Data ---
Date of Service April 02, 2023 Coding Level of Care Code 35743 SUB INP/OBS CARE
[2023-04-02] MEDS: TAMSULOSIN HCL 0.4 MG CAP PO SCH (20:21)
[2023-04-02] MEDS: MELATONIN 3 MG TAB PO SCH (21:24)
[2023-04-03] MEDS: DOXYCYCLINE HYCLATE 100 MG in DEXTROSE 5% 100 ML IV SCH ×2 (01:49→13:45)
[2023-04-03] MEDS: ALBUT/IPRATROP 3MG/0.5MG NEB 3 ML VIAL NEB SCH ×6 (02:14→22:36)
[2023-04-03] MEDS: oxyCODONE HCL IR 5 MG TAB (IMMEDIATE RELEASE) PO PRN ×2 (03:55→18:13)
[2023-04-03] MEDS: LEVOTHYROXINE SODIUM 150 MCG TABLET PO SCH (05:47)
[2023-04-03] MEDS: BUDESONIDE 0.5 MG/2 ML VIAL (PULMICORT) NEB SCH ×2 (07:19→18:53)
[2023-04-03] MEDS: FORMOTEROL 20 MCG/2 ML VIAL NEB SCH ×2 (07:19→18:53)
[2023-04-03] MEDS: SODIUM CHLOR 7% 4 ML NEB NEB SCH ×2 (07:19→18:53)
--- NOTE | 2023-04-03 07:29 | Hospitalist Progress Note ---
Date of Service April 03, 2023 Assessment & Plan (1) Acute on chronic respiratory failure with hypoxia and hypercapnia: Plan: Patient is an 87-year-old male with past medical history of bronchiectasis, COPD (3L O2 @ baseline) diastolic heart failure, hypothyroidism, and hypertension returns to the hospital for hypoxia (sent from [facility]). Patient has had complicated past couple of months with multiple admissions to the hospital in relation to respiratory failure. Suspect respiratory failure is multifactorial, likely COPD +/- Viral PNA at present. Patient received BiPAP on admission and is currently stable on 3L NC. Respiratory Failure - Patient admitted to telemetry - Ddx: PNA vs COPD exacerbation vs Bronchiectasis vs Fluid Overload - CXR indicative of PNA w/ fluid overload * No change in the small bilateral pleural effusions and patchy bibasilar densities. This may represent atelectasis or a pneumonia. * Emphysema and chronic interstitial thickening persists. - CT Chest * Emphysema and bronchitis, as on prior. * Suspect superimposed pulmonary edema. Small volumes of pleural fluid bilaterally. * In this context, it is difficult to exclude an infectious process and clinical correlation is requested. * Of note, previously seen consolidative opacity in the posterior right upper lobe demonstrates near-complete resolution. - Pulmonary consult deferred at this time, will reserve for if patient's clinical picture worsens or bronchoscopy is indicated - Antibiotic Mgmt: Doxycycline (COPD exacerbation, Erythromycin allergy) - Blood cultures - No growth - Sputum cultures ordered - CPAP downtrending --- Continue DuoNeb QID, Prednisone 30 mg daily, Mucinex BID, and pulmonary toilet Leukocytosis: - Elevation to 20 03/31-04/03 - Likely a/w ongoing steroids - Ongoing clinical improvement and downtrending CRP support steroid etiology Elevated Creatinine 03/31 (Resolved 04/01) - Suspect a/w mild dehydration, volume status clinical challenging to determine - LE edema unchanged, bi-basilar crackles resolved - Will continue diuretic hold at this time and avoid IVF, but encourage PO fluid intake - Continue to trend Cr (2) Bronchiectasis: Plan: - Hypertonic saline nebulizer twice daily scheduled - Otherwise as above (3) COPD exacerbation: Plan: - Continue DuoNeb QID, Doxycycline, pulmonary toilet, and O2 supplementation (3L baseline) (4) Chronic obstructive pulmonary disease: Plan: - Continue home medications in addition to scheduled DuoNeb - See COPD Exacerbation (5) Elevated troponin: Plan: - Troponin elevated on admission, now downtrending - Patient w/o chest pain, dyspnea, or concerning features for ACS - Likely a/w demand ischemia - Cardiology consulted, appreciate recommendations * Holding diuresis at this time d/t clinical hypovolemia (6) Sepsis: Plan: - SIRS criteria met on admission: elevated WBC count, tachycardia, and tachypnea - Likely a/w PNA/COPD exacerbation - Given complex pulmonary hx and overload on presentation, fluid resuscitation was deferred - Continue Abx as above - Blood and sputum cultures ordered (7) Pneumonia: Plan: - Hx of potter-sensitive Pseudomonas on last admission (d/c 03/19/23) - Continue Cefepime - Continue Doxycycline for atypical coverage in setting of COPD exacerbation (8) History of COVID-19: Plan: - Antigen test positive on admission, likely d/t recent infection - Previously positive in January (02/11/23) - Continue Solu-Medrol, COVID-19 possible contribution to COPD exacerbation - Remdesavir not indicated at this time (9) Multifocal atrial tachycardia: Plan: - Continue metoprolol and diltiazem (10) (HFpEF) heart failure with preserved ejection fraction: Plan: - Patient on Bumex 2 mg qAM at baseline, received Lasix 40 mg IV in ED - AM Bumex held on admission given septic picture, vitals remain stable, no clinical evidence of fluid overload - Respiratory status remains stable, will re-instate diuresis if clinically worsening - Cardiology consulted, appreciate recommendations (11) BPH (benign prostatic hyperplasia): Plan: - Continue finasteride and Flomax (12) Hypertension: Plan: -Continue metoprolol and diltiazem as above (13) Leukocytosis: (14) Elevated serum creatinine: Plan Disposition: Stable for discharge, pending [facility], likely Thursday Code: DNR/DNI Diet: Heart healthy, low-sodium, easy to chew DVT prophylaxis: Heparin Admission and Anticipated Discharge Date Admission Date: March 29, 2023 Supervising Physician Co-Signing Physician Notes I personally examined the patient and verified all huerta points of history and exam, discussed case, and agree with decision making with Dr Fernandez no new problems. placement thursday Vitals noted, in general he is awake and alert pleasant no distress. HEENT normocephalic atraumatic mucous membranes moist. Breathing unlabored no accessory muscle use good effort Skin shows no rashes no pallor or icterus. dyspnea/hypoxiawith hindsight almost certainly was COPD exac not recurrent pneumonia. stable for return to snf - case management working on arranging - thursday. continue steroids (changed to PO - weaning every few days - today was first day of 30mg), doxy. chronic diastolic CHF appears compensated DVT prophylaxisheparin Subjective 04/03: Patient resting in bed upon arrival. Patient has no acute concerns. Patient denies dyspnea or pleuritic pain. He is not experiencing any chest pain, abdominal pain, nausea, or emesis. Patient states he is back to his baseline. Physical Exam Physical Exam: Gen: NAD, alert, interactive Neuro: AO x 3, no focal neurologic deficits HEENT: NCAT, no JVD, no LAD, dry mucous membranes Resp:Non-labored, bilateral wheezing (ongoing improvement) CV:RRR, normal S1/S2, no M/R/G Abd: Soft, non-distended, no TTP, normoactive bowels, no masses Extr: 2+ dp bilaterally, trace LE edema bilaterally Skin: No rashes lesions or erythema Results & Data Results & Data Vital Signs (Past 12 Hours) Vital Signs Temp Pulse Resp BP Pulse Ox O2 Del Method O2 Flow Rate 04/03/23 07:20 94 H 18 99 Nasal Cannula 3 04/03/23 02:14 90 20 91 CPAP 3 04/02/23 20:30 Nasal Cannula 2 04/02/23 22:03 100 H 20 96 CPAP 2 04/02/23 20:18 36.6 C 108 H 20 116/71 93 Nasal Cannula 2 Resident Activity Tracking Resident Involvement: Resident Care Provided Care Provided: Adult Hospital Medicine (7) Pneumonia Laterality: right Lung location: unspecified part of lung Pneumonia type: due to unspecified organism Qualified Code(s): J18.9 - Pneumonia, unspecified organism (13) Leukocytosis Leukocytosis type: bandemia Qualified Code(s): D72.825 - Bandemia
[2023-04-03] MEDS: dilTIAZem HCL 180 MG CAPCR PO SCH (08:19)
[2023-04-03] MEDS: LACTOBACILLUS ACIDOPHILUS 1 GM PACK PO SCH ×3 (08:19→16:49)
[2023-04-03] MEDS: FINASTERIDE 5 MG TAB PO SCH (08:20)
[2023-04-03] MEDS: guaiFENesin 600 MG TABCR PO SCH ×2 (08:20→21:16)
[2023-04-03] MEDS: HEPARIN SOD 5,000 UNIT/0.5 ML VIAL SQ SCH ×2 (08:20→21:16)
[2023-04-03] MEDS: predniSONE 20 MG TAB PO SCH (08:21)
[2023-04-03] MEDS: METOPROLOL TARTRATE 25 MG TAB PO SCH ×2 (08:21→21:16)
[2023-04-03] MEDS: ACETAMINOPHEN 325 MG TAB PO PRN ×2 (08:24→23:17)
[2023-04-03 08:29] LABS: Hematocrit (blood only) 35.5 % (42.0-52.0); Hemoglobin 11.2 g/dl (14.0-18.0); Mean Corpuscular Hemoglobin 25.9 pg (25.0-34.0); Mean Corpuscular Hgb Conc 31.5 g/dL (32.0-36.0); Mean Corpuscular Volume 82.2 fL (80.0-100.0); Mean Platelet Volume 11.4 fL (9.4-12.4); Platelet Count 222 K/uL (130-400); RDW Coefficient of Variation 19.3 % (11.5-14.5); RDW Standard Deviation 56.7 fL (36.4-46.3); Red Blood Count 4.32 M/uL (4.70-6.10); White Blood Count 19.26 K/ul (4.8-10.8)
[2023-04-03 08:45] LABS: Potassium 4.7 mmol/L (3.5-5.1)
[2023-04-03 08:46] LABS: Calcium 8.3 mg/dl (8.6-10.3); Creatinine Clr Calc Pharmacy 54.8 ml/min; Est GFR (African American) 78.6 ml/min; Est GFR (Non-African American) 67.8 ml/min
[2023-04-03] MEDS: PANTOprazole 40 MG TAB PO SCH (11:23)
--- NOTE | 2023-04-03 19:55 | Billing Data ---
Date of Service April 03, 2023 Coding Level of Care Code 94813 SUB INP/OBS CARE
[2023-04-03] MEDS: MELATONIN 3 MG TAB PO SCH (21:16)
[2023-04-03] MEDS: TAMSULOSIN HCL 0.4 MG CAP PO SCH (21:16)
[2023-04-04] MEDS: ALBUT/IPRATROP 3MG/0.5MG NEB 3 ML VIAL NEB SCH ×6 (02:22→22:26)
[2023-04-04] MEDS: POLYETHYLENE (MIRALAX) 17 GM PACK PO PRN (06:10)
[2023-04-04] MEDS: LEVOTHYROXINE SODIUM 150 MCG TABLET PO SCH (06:10)
--- NOTE | 2023-04-04 06:52 | Hospitalist Progress Note ---
Date of Service April 04, 2023 Assessment & Plan (1) Acute on chronic respiratory failure with hypoxia and hypercapnia: Plan: Patient is an 87-year-old male with past medical history of bronchiectasis, COPD (3L O2 @ baseline) diastolic heart failure, hypothyroidism, and hypertension returns to the hospital for hypoxia (sent from [facility]). Patient has had complicated past couple of months with multiple admissions to the hospital in relation to respiratory failure. Suspect respiratory failure is multifactorial, likely COPD +/- Viral PNA at present. Patient received BiPAP on admission and is currently stable on 3L NC. Acute on chronic hypoxic Respiratory Failure -Now on chronic baseline O2 need at 3L COPD exacerbation Bronchiectasis - Blood cultures - No growth; Sputum cultures - Pinpoint growth, re-incubating -WBC elevation from steroids --- Finished course of Doxycycline ----PO Steroids (Day 6) --- Continue DuoNeb QID, Mucinex BID and pulmonary toilet ALFONSO - resolved -Home diuretics on hold. - Continue to trend Cr (1.0 on 04/04) Concern of SIRS on admission -Started on broad spectrum abx. -No source of infection identified. -Presentation possibly due to copd exacerbation. Chronic HFpEF - received Lasix 40 mg IV in ED - Patient on Bumex 2 mg qAM at baseline - on hold - Remains euvolemic Elevated troponin -sec to demand ischemia + COVID Antigen test positive on admission, likely d/t recent infection 02/11/23 Multifocal atrial tachycardia - Continue metoprolol and diltiazem BPH- Continue finasteride and Flomax HTN-Continue metoprolol and diltiazem as above Plan Disposition: Stable for discharge, pending [facility], likely Thursday Code: DNR/DNI Diet: Heart healthy, low-sodium, easy to chew DVT prophylaxis: Heparin (2) Bronchiectasis: (3) COPD exacerbation: (4) Elevated troponin: (5) Sepsis: (6) Pneumonia: (7) History of COVID-19: (8) Multifocal atrial tachycardia: (9) (HFpEF) heart failure with preserved ejection fraction: (10) BPH (benign prostatic hyperplasia): (11) Hypertension: (12) Leukocytosis: (13) Elevated serum creatinine: Admission and Anticipated Discharge Date Admission Date: March 29, 2023 Supervising Physician Co-Signing Physician Notes Resident Physician Supervision Note: I independently interviewed and examined the patient and verified the huerta history and physical, reviewed labs and image studies and agree with resident findings and care plan. Subjective 04/04: Patient resting upon arrival, notes he has not moved his bowels in 2 days and is uncomfortable. Patient requesting a suppository (like he normally uses at home). Patient noted mild sensation of reflux and notes this happens at home, requesting medication. Patient denies dyspnea or pleuritic pain. He is not experiencing any chest pain, abdominal pain, nausea, or emesis. Patient states he is at his baseline. Physical Exam Physical Exam: Gen: NAD, alert, interactive Neuro: AO x 3, no focal neurologic deficits HEENT: NCAT, no JVD, no LAD, dry mucous membranes Resp:Non-labored, bilateral wheezing, coarse breath sounds CV:RRR, normal S1/S2, no M/R/G Abd: Soft, non-distended, no TTP, normoactive bowels, no masses Extr: 2+ dp bilaterally, trace LE edema bilaterally Skin: No rashes lesions or erythema, scattered ecchymosis Results & Data Results & Data Vital Signs (Past 12 Hours) Vital Signs Temp Pulse Resp BP Pulse Ox O2 Del Method O2 Flow Rate 04/03/23 22:36 110 H 24 97 CPAP 3 04/03/23 21:00 Nasal Cannula 3 04/03/23 21:14 36.6 C 106 H 20 135/57 L 93 Nasal Cannula 3 04/03/23 18:53 108 H 18 96 Nasal Cannula 3 Resident Activity Tracking Resident Involvement: Resident Care Provided Care Provided: Adult Hospital Medicine (6) Pneumonia Laterality: right Lung location: unspecified part of lung Pneumonia type: due to unspecified organism Qualified Code(s): J18.9 - Pneumonia, unspecified organism (12) Leukocytosis Leukocytosis type: bandemia Qualified Code(s): D72.825 - Bandemia
[2023-04-04] MEDS: BUDESONIDE 0.5 MG/2 ML VIAL (PULMICORT) NEB SCH ×2 (07:19→18:57)
[2023-04-04] MEDS: FORMOTEROL 20 MCG/2 ML VIAL NEB SCH ×2 (07:19→18:57)
[2023-04-04] MEDS: SODIUM CHLOR 7% 4 ML NEB NEB SCH ×2 (07:19→18:58)
[2023-04-04] MEDS: ACETAMINOPHEN 325 MG TAB PO PRN ×2 (08:48→23:36)
[2023-04-04] MEDS: LACTOBACILLUS ACIDOPHILUS 1 GM PACK PO SCH ×3 (08:49→17:28)
[2023-04-04] MEDS: dilTIAZem HCL 180 MG CAPCR PO SCH (08:50)
[2023-04-04] MEDS: METOPROLOL TARTRATE 25 MG TAB PO SCH ×2 (08:50→21:03)
[2023-04-04] MEDS: FINASTERIDE 5 MG TAB PO SCH (08:51)
[2023-04-04] MEDS: predniSONE 10 MG TABLET PO SCH (08:52)
[2023-04-04] MEDS: guaiFENesin 600 MG TABCR PO SCH ×2 (08:52→21:03)
[2023-04-04] MEDS: HEPARIN SOD 5,000 UNIT/0.5 ML VIAL SQ SCH ×2 (08:57→21:02)
[2023-04-04] MEDS ORDERED: FAMOTIDINE 20 MG TAB PO STA (09:04)
[2023-04-04] MEDS ORDERED: bisacodyL 10 MG SUPP PR STA (09:06)
[2023-04-04] MEDS: PANTOprazole 40 MG TAB PO SCH (11:00)
[2023-04-04] MEDS: DICLOFENAC SOD 1% GEL 100 GM TUBE EXT PRN (17:24)
[2023-04-04] MEDS: TAMSULOSIN HCL 0.4 MG CAP PO SCH (21:02)
[2023-04-04] MEDS: MELATONIN 3 MG TAB PO SCH (21:03)
[2023-04-05] MEDS: ALBUT/IPRATROP 3MG/0.5MG NEB 3 ML VIAL NEB SCH ×6 (02:10→22:28)
[2023-04-05] MEDS: LEVOTHYROXINE SODIUM 150 MCG TABLET PO SCH (05:54)
[2023-04-05 06:08] LABS: Hemoglobin 11.8 g/dl (14.0-18.0); Mean Corpuscular Hemoglobin 26.3 pg (25.0-34.0); Mean Corpuscular Hgb Conc 31.9 g/dL (32.0-36.0); Mean Corpuscular Volume 82.6 fL (80.0-100.0); Mean Platelet Volume 11.5 fL (9.4-12.4); Platelet Count 248 K/uL (130-400); RDW Coefficient of Variation 19.9 % (11.5-14.5); RDW Standard Deviation 57.9 fL (36.4-46.3); Red Blood Count 4.48 M/uL (4.70-6.10); White Blood Count 26.68 K/ul (4.8-10.8)
[2023-04-05 06:22] LABS: BUN Creatinine Ratio 42.3 (10-20); Calcium 8.5 mg/dl (8.6-10.3); Creatinine Clr Calc Pharmacy 70.2 ml/min; Est GFR (African American) 94.7 ml/min; Est GFR (Non-African American) 81.7 ml/min; Potassium 4.6 mmol/L (3.5-5.1)
[2023-04-05] MEDS: BUDESONIDE 0.5 MG/2 ML VIAL (PULMICORT) NEB SCH ×2 (07:09→19:01)
[2023-04-05] MEDS: SODIUM CHLOR 7% 4 ML NEB NEB SCH ×2 (07:09→19:01)
[2023-04-05] MEDS: FORMOTEROL 20 MCG/2 ML VIAL NEB SCH ×2 (07:09→19:02)
--- NOTE | 2023-04-05 07:44 | Hospitalist Progress Note ---
Date of Service April 05, 2023 Assessment & Plan (1) Acute on chronic respiratory failure with hypoxia and hypercapnia: Plan: Patient is an 87-year-old male with past medical history of bronchiectasis, COPD (3L O2 @ baseline) diastolic heart failure, hypothyroidism, and hypertension returns to the hospital for hypoxia (sent from [facility]). Patient has had complicated past couple of months with multiple admissions to the hospital in relation to respiratory failure. Suspect respiratory failure is multifactorial, likely COPD +/- Viral PNA at present. Patient received BiPAP on admission and is currently stable on 3L NC. Acute on chronic hypoxic Respiratory Failure - Now on chronic baseline O2 need at 3L - No respiratory distress COPD exacerbation Pneumonia - Blood cultures - No growth - Sputum cultures - Gram negative bacilli (collected 04/03, resulted 04/05) - WBC elevation from steroids - Completed course of Doxycycline - Continue PO steroids (Day 7) - Continue DuoNeb QID, Mucinex BID and pulmonary toilet --- Start Ceftriaxone 1g IV q24 hours given positive sputum culture, anticipate discharge on PO Cephalosporin ALFONSO (Resolved) - Continue to trend Cr (0.78 on 04/05) - Home diuretic restarted 04/05 SIRS + on Admission from Pneumonia - Started on broad spectrum abx on admission, no source of infection identified, broad spectrum d/c on 03/30 - Sputum cultures obtained 04/03 growing G neg bacilli, start CTX 04/05 - finish course with cefdinir. Chronic HFpEF -CT chest showing concern of pulmonary infiltrate and Pul HTN - Received Lasix 40 mg IV in ED with rise in creatinine. - Evidence of bibasilar crackles and increased LE edema on 04/05 * Patient on Bumex 2 mg qAM at baseline - held on admission, restarted 04/05 Elevated Troponin - Likely 2/2 demand ischemia COVID + - Likely 2/2 recent infection 02/11/23 Multifocal atrial tachycardia - Continue metoprolol and diltiazem BPH - Continue finasteride and Flomax HTN -Continue metoprolol and diltiazem as above (2) Bronchiectasis: (3) COPD exacerbation: (4) Elevated troponin: (5) Sepsis: (6) Pneumonia: (7) History of COVID-19: (8) Multifocal atrial tachycardia: (9) (HFpEF) heart failure with preserved ejection fraction: (10) BPH (benign prostatic hyperplasia): (11) Hypertension: (12) Leukocytosis: (13) Elevated serum creatinine: Plan Disposition: Stable for discharge, pending [facility], likely Thursday Code: DNR/DNI Diet: Heart healthy, low-sodium, easy to chew DVT prophylaxis: Heparin Admission and Anticipated Discharge Date Admission Date: March 29, 2023 Supervising Physician Co-Signing Physician Notes Resident Physician Supervision Note: I independently interviewed and examined the patient and verified the huerta history and physical, reviewed labs and image studies and agree with resident findings and care plan. Subjective 04/05: Patient comfortable watching television upon arrival. He notes that he moved his bowels independently w/o suppository yesterday and that his reflux is much improved. He notes no change in dyspnea and is not having pleuritic pain. Patient denies chest pain, abdominal pain, nausea, or emesis. Physical Exam Physical Exam: Gen: NAD, alert, interactive Neuro: AO x 3, no focal neurologic deficits HEENT: NCAT, no JVD, no LAD, dry mucous membranes Resp:Non-labored, bilateral wheezing, crackles at bases (R>L), coarse breath sounds CV:RRR, normal S1/S2, no M/R/G Abd: Soft, non-distended, no TTP, normoactive bowels, no masses Extr: 2+ dp bilaterally, 1+ LE edema bilaterally Skin: No rashes lesions or erythema, scattered ecchymosis Results & Data Results & Data Vital Signs (Past 12 Hours) Vital Signs Temp Pulse Resp BP Pulse Ox O2 Del Method O2 Flow Rate 04/05/23 07:12 36.9 C 83 16 131/74 97 Nasal Cannula 2 04/05/23 07:09 85 16 93 Nasal Cannula 4 04/04/23 21:00 Nasal Cannula 3 04/05/23 02:10 103 H 20 95 CPAP 3 04/04/23 22:26 97 H 18 92 CPAP 3 04/04/23 20:57 37.0 C 112 H 20 148/89 H 90 Nasal Cannula 3 Resident Activity Tracking Resident Involvement: Resident Care Provided Care Provided: Adult Hospital Medicine (6) Pneumonia Laterality: right Lung location: unspecified part of lung Pneumonia type: due to unspecified organism Qualified Code(s): J18.9 - Pneumonia, unspecified organism (12) Leukocytosis Leukocytosis type: bandemia Qualified Code(s): D72.825 - Bandemia
[2023-04-05 08:24] LABS: C Reactive Protein 5.38 mg/dl (0-0.5)
[2023-04-05] MEDS: LACTOBACILLUS ACIDOPHILUS 1 GM PACK PO SCH ×3 (08:37→17:31)
[2023-04-05] MEDS: guaiFENesin 600 MG TABCR PO SCH ×2 (08:37→21:10)
[2023-04-05] MEDS: dilTIAZem HCL 180 MG CAPCR PO SCH (08:37)
[2023-04-05] MEDS: HEPARIN SOD 5,000 UNIT/0.5 ML VIAL SQ SCH ×2 (08:38→21:11)
[2023-04-05] MEDS: predniSONE 10 MG TABLET PO SCH (08:38)
[2023-04-05] MEDS: METOPROLOL TARTRATE 25 MG TAB PO SCH ×2 (08:38→21:10)
[2023-04-05] MEDS: FINASTERIDE 5 MG TAB PO SCH (08:38)
[2023-04-05] MEDS: PANTOprazole 40 MG TAB PO SCH (12:21)
[2023-04-05] MEDS: BUMETANIDE 1 MG TAB PO SCH (12:56)
[2023-04-05] MEDS: cefTRIAXone SODIUM 2,000 MG in DEXTROSE 5% 50 ML IV SCH (16:32)
[2023-04-05] MEDS: MELATONIN 3 MG TAB PO SCH (21:10)
[2023-04-05] MEDS: TAMSULOSIN HCL 0.4 MG CAP PO SCH (21:10)
[2023-04-05] MEDS: DICLOFENAC SOD 1% GEL 100 GM TUBE EXT PRN (21:11)
[2023-04-05] MEDS: ACETAMINOPHEN 325 MG TAB PO PRN (22:12)
[2023-04-06] MEDS: ALBUT/IPRATROP 3MG/0.5MG NEB 3 ML VIAL NEB SCH ×6 (02:59→23:49)
[2023-04-06] MEDS: LEVOTHYROXINE SODIUM 150 MCG TABLET PO SCH (05:41)
--- NOTE | 2023-04-06 06:59 | Hospitalist Progress Note ---
Date of Service April 06, 2023 Assessment & Plan (1) Acute on chronic respiratory failure with hypoxia and hypercapnia: Plan: Patient is an 87-year-old male with past medical history of bronchiectasis, COPD (3L O2 @ baseline) diastolic heart failure, hypothyroidism, and hypertension returns to the hospital for hypoxia (sent from [facility]). Patient has had complicated past couple of months with multiple admissions to the hospital in relation to respiratory failure. Suspect respiratory failure is multifactorial, likely COPD exacerbation + Pseudomonas PNA. Patient received BiPAP on admission and is currently stable on 3L NC. Acute on chronic hypoxic Respiratory Failure - Now on chronic baseline O2 need at 3L - No respiratory distress, ongoing cough, now more productive 04/06 COPD exacerbation Pseudomonas Pneumonia - Blood cultures - No growth - Sputum cultures - Pseudomonas (collected 04/03, resulted 04/06) - WBC elevation from steroids - Completed course of Doxycycline - Continue PO 30mgs prednisone (Day 8) - cut dose to 20mgs 04/06. - Continue DuoNeb QID, Mucinex BID and pulmonary toilet - Received single dose of Ceftriaxone 1g IV 04/05, transitioned to IV Cefepime 2g Q12h (based on CrCl) for Pseudomonas coverage, possible discharge on PO Ciprofloxacin ALFONSO (Resolved) - Continue to trend Cr (0.94 on 04/05) - Home diuretic restarted 04/05 SIRS + on Admission from Pneumonia - Started on broad spectrum abx on admission, no source of infection identified, broad spectrum d/c on 03/30 - Sputum cultures obtained 04/03 growing Pseudomonas, start Cefepime 04/06 . Chronic HFpEF -CT chest showing concern of pulmonary infiltrate and Pul HTN - Received Lasix 40 mg IV in ED with rise in creatinine. - Evidence of bibasilar crackles and increased LE edema on 04/05 * Patient on Bumex 2 mg qAM at baseline - held on admission, restarted 04/05, clinically improved 04/06 Elevated Troponin - Likely 2/2 demand ischemia COVID + - Likely 2/2 recent infection 02/11/23 Multifocal atrial tachycardia - Continue metoprolol and diltiazem BPH - Continue finasteride and Flomax HTN -Continue metoprolol and diltiazem as above Disposition: Stable for discharge, pending [facility], likely Thursday Code: DNR/DNI Diet: Heart healthy, low-sodium, easy to chew DVT prophylaxis: Heparin (2) Bronchiectasis: (3) COPD exacerbation: (4) Elevated troponin: (5) Sepsis: (6) Pneumonia: (7) History of COVID-19: (8) Multifocal atrial tachycardia: (9) (HFpEF) heart failure with preserved ejection fraction: (10) BPH (benign prostatic hyperplasia): (11) Hypertension: (12) Leukocytosis: (13) Elevated serum creatinine: Admission and Anticipated Discharge Date Admission Date: March 29, 2023 Supervising Physician Co-Signing Physician Notes Resident Physician Supervision Note: I independently interviewed and examined the patient and verified the huerta history and physical, reviewed labs and image studies and agree with resident findings and care plan. Subjective 04/06: Patient comfortable this morning w/o acute concerns. Patient denies increased dyspnea, chest pain or pleuritic pain. He denies fevers or chills. Patient notes that he feels his cough is more productive and is somewhat green in color. He is not experiencing nausea or emesis. Physical Exam Physical Exam: Gen: NAD, alert, interactive Neuro: AO x 3, no focal neurologic deficits HEENT: NCAT, no JVD, no LAD, dry mucous membranes Resp:Non-labored, bilateral wheezing, faint crackles at bases, coarse breath sounds CV:RRR, normal S1/S2, no M/R/G Abd: Soft, non-distended, no TTP, normoactive bowels, no masses Extr: 2+ dp bilaterally, trace LE edema bilaterally Skin: No rashes lesions or erythema, scattered ecchymosis Results & Data Results & Data Vital Signs (Past 12 Hours) Vital Signs Temp Pulse Resp BP Pulse Ox O2 Del Method O2 Flow Rate 04/06/23 02:59 93 H 16 95 CPAP 4 04/05/23 22:28 98 H 18 96 CPAP 4 04/05/23 21:00 Nasal Cannula 4 04/05/23 21:04 36.8 C 105 H 20 121/80 90 Nasal Cannula 4 04/05/23 19:02 94 H 20 95 Nasal Cannula 4 Resident Activity Tracking Resident Involvement: Resident Care Provided Care Provided: Adult Hospital Medicine (6) Pneumonia Laterality: right Lung location: unspecified part of lung Pneumonia type: due to unspecified organism Qualified Code(s): J18.9 - Pneumonia, unspecified organism (12) Leukocytosis Leukocytosis type: bandemia Qualified Code(s): D72.825 - Bandemia
[2023-04-06] MEDS: BUDESONIDE 0.5 MG/2 ML VIAL (PULMICORT) NEB SCH ×2 (07:12→19:17)
[2023-04-06] MEDS: FORMOTEROL 20 MCG/2 ML VIAL NEB SCH ×2 (07:12→19:17)
[2023-04-06] MEDS: SODIUM CHLOR 7% 4 ML NEB NEB SCH ×2 (07:12→19:17)
[2023-04-06 07:29] LABS: Hematocrit (blood only) 35.5 % (42.0-52.0); Hemoglobin 11.2 g/dl (14.0-18.0); Mean Corpuscular Hemoglobin 26.3 pg (25.0-34.0); Mean Corpuscular Hgb Conc 31.5 g/dL (32.0-36.0); Mean Corpuscular Volume 83.3 fL (80.0-100.0); Mean Platelet Volume 11.2 fL (9.4-12.4); Platelet Count 225 K/uL (130-400); RDW Coefficient of Variation 20.3 % (11.5-14.5); RDW Standard Deviation 60.1 fL (36.4-46.3); Red Blood Count 4.26 M/uL (4.70-6.10); White Blood Count 18.98 K/ul (4.8-10.8)
[2023-04-06 07:46] LABS: BUN Creatinine Ratio 36.2 (10-20); Calcium 8.3 mg/dl (8.6-10.3); Creatinine Clr Calc Pharmacy 58.2 ml/min; Est GFR (African American) 84.7 ml/min; Est GFR (Non-African American) 73.1 ml/min; Potassium 4.1 mmol/L (3.5-5.1)
[2023-04-06] MEDS: LACTOBACILLUS ACIDOPHILUS 1 GM PACK PO SCH ×2 (08:20→11:04)
[2023-04-06] MEDS: BUMETANIDE 1 MG TAB PO SCH (08:23)
[2023-04-06] MEDS: dilTIAZem HCL 180 MG CAPCR PO SCH (08:23)
[2023-04-06] MEDS: guaiFENesin 600 MG TABCR PO SCH ×2 (08:24→20:15)
[2023-04-06] MEDS: FINASTERIDE 5 MG TAB PO SCH (08:24)
[2023-04-06] MEDS: predniSONE 10 MG TABLET PO SCH (08:25)
[2023-04-06] MEDS: METOPROLOL TARTRATE 25 MG TAB PO SCH ×2 (08:25→20:16)
[2023-04-06] MEDS: HEPARIN SOD 5,000 UNIT/0.5 ML VIAL SQ SCH ×2 (08:26→20:16)
[2023-04-06] MEDS: PANTOprazole 40 MG TAB PO SCH (11:04)
[2023-04-06] MEDS: ACETAMINOPHEN 325 MG TAB PO PRN (11:55)
[2023-04-06] MEDS: CEFEPIME 2,000 MG in SYRINGE 0 ML IV SCH (13:13)
[2023-04-06] MEDS: cefTRIAXone SODIUM 2,000 MG in DEXTROSE 5% 50 ML IV SCH (14:50)
[2023-04-06] MEDS ORDERED: ADVANCED PROBIOTIC 1250 MG CAPSULE PO SCH (15:00)
[2023-04-06] MEDS: MELATONIN 3 MG TAB PO SCH (20:16)
[2023-04-06] MEDS: TAMSULOSIN HCL 0.4 MG CAP PO SCH (20:16)
[2023-04-06] MEDS ORDERED: CEFEPIME 2,000 MG in SYRINGE 0 ML IV SCH (21:30)
[2023-04-07] MEDS: CEFEPIME 2,000 MG in SYRINGE 0 ML IV SCH ×2 (00:41→13:52)
[2023-04-07] MEDS: ALBUT/IPRATROP 3MG/0.5MG NEB 3 ML VIAL NEB SCH ×3 (02:39→11:21)
[2023-04-07] MEDS: ACETAMINOPHEN 325 MG TAB PO PRN ×2 (02:53→12:31)
[2023-04-07] MEDS: LEVOTHYROXINE SODIUM 150 MCG TABLET PO SCH (06:17)
[2023-04-07 07:00] LABS: Hematocrit (blood only) 37.4 % (42.0-52.0); Hemoglobin 11.6 g/dl (14.0-18.0); Mean Corpuscular Hemoglobin 26.1 pg (25.0-34.0); Mean Corpuscular Volume 84.2 fL (80.0-100.0); Mean Platelet Volume 11.5 fL (9.4-12.4); Platelet Count 238 K/uL (130-400); RDW Coefficient of Variation 20.3 % (11.5-14.5); RDW Standard Deviation 61.3 fL (36.4-46.3); Red Blood Count 4.44 M/uL (4.70-6.10)
[2023-04-07] MEDS: SODIUM CHLOR 7% 4 ML NEB NEB SCH (07:18)
[2023-04-07] MEDS: BUDESONIDE 0.5 MG/2 ML VIAL (PULMICORT) NEB SCH (07:18)
[2023-04-07] MEDS: FORMOTEROL 20 MCG/2 ML VIAL NEB SCH (07:18)
[2023-04-07 07:19] LABS: BUN Creatinine Ratio 42.9 (10-20); Calcium 8.5 mg/dl (8.6-10.3); Creatinine Clr Calc Pharmacy 60.2 ml/min; Est GFR (African American) 88.1 ml/min; Potassium 4.2 mmol/L (3.5-5.1)
--- NOTE | 2023-04-07 07:30 | Discharge Summary ---
Date of Service April 07, 2023 Admission HPI Per Admitting Provider Patient is an 87-year-old male with past medical history of bronchiectasis, COPD, on home O2, diastolic heart failure, hypothyroidism, and hypertension returns to the hospital for hypoxia for which she was sent from [facility]. Patient has had complicated past couple of months with multiple admissions to the hospital in relation to respiratory failure. Patient has multiple pulmonary comorbidities including COPD, frequent pneumonia, bronchiectasis, and CHF requiring diuresis. Patient having COVID-19 in end of January and has been antigen test positive since. Patient is currently on BiPAP upon my arrival to examination. Apparently, patient having longtime difficulty with shortness of breath and today one of the [facility] workers had noted O2 saturation down to the 70s which prompted him being brought over by ambulance. Patient was brought back to the emergency department and put on BiPAP which improved his oxygen saturation. Interview is limited as his responses are difficult to understand behind the BiPAP and if he is taken off he desats down into the low 80s. Patient is able to state that he is more comfortable now that he is able to breathe better. Denies chest pain. ED course: Patient was brought back and seen by one of our providers. Patient was placed on BiPAP Imaging was significant for a chest x-ray which shows possible pneumonia of the left lower lobe as well as evidence of pulmonary edema per my interpretation. CBC was significant for a white blood cell count of 21.5 with a left shift. VBG having a pH of 7.39 with a PCO2 of 60. BNP slightly elevated 143. High-sensitivity troponin elevated at 935.5. Procalcitonin negative at 0.38. Patient was given 40 of Lasix, was started on cefepime, and was given a loading dose of aspirin at 324 mg. The hospitalist service was consulted for admission to the hospital. Admission Exam Per Admitting Provider Constitutional: well developed, well nourished, + well hydrated and cooperative Neck: trachea midline, no thyromegaly Respiratory: + labored breathing and + prolonged expiratory phase Auscultation: + rales, + wheezes and + bronchial breath sounds Cardiovascular: RRR, no murmur, no edema Vessels: no JVD Extremities: + ada ma (1+ b/l) Gastrointestinal (Abdomen): Inspection/Auscultation: abdomen normal to inspection Musculoskeletal: Head/Neck/Chest: normocephalic and head atraumatic Skin: no rashes, warm and dry scattered echymoses Neurologic: moves all extremities and awake Psychiatric: Orientation: alert, oriented to person, oriented to place and cooperative Lymphatic: no cervical or axillary lymphadenopathy Principal Diagnosis COPD Exacerbation Pseudomonas/MRSA Pneumonia Discharge Exam Gen: NAD, alert, interactive Neuro: AO x 3, no focal neurologic deficits HEENT: NCAT, no JVD, no LAD, dry mucous membranes Resp:Non-labored, bilateral wheezing, faint crackles at bases, coarse breath sounds CV:RRR, normal S1/S2, no M/R/G Abd: Soft, non-distended, no TTP, normoactive bowels, no masses Extr: 2+ dp bilaterally, trace LE edema bilaterally Skin: No rashes lesions or erythema, scattered ecchymosis Discharge Data Allergies Allergy/AdvReac Type Severity Reaction Status Date / Time clarithromycin Allergy Intermediate RASH Verified 02/18/23 15:22 Consultations 03/29/23 22:54 ED Decision to Admit Stat 03/30/23 01:01 Consult Cardiology Routine Ordered Studies 03/29/23 23:18 CT chest diagnostic wo con Stat Hospital Course (1) Acute on chronic respiratory failure with hypoxia and hypercapnia: Patient is an 87-year-old male with past medical history of bronchiectasis, COPD (3L O2 @ baseline) diastolic heart failure, hypothyroidism, and hypertension returns to the hospital for hypoxia (sent from [facility]). Patient has had complicated past couple of months with multiple admissions to the hospital in relation to respiratory failure. Suspect respiratory failure is multifactorial, likely COPD exacerbation + Pseudomonas PNA. Patient received BiPAP on admission and is currently stable on 3L NC. Acute on chronic hypoxic Respiratory Failure - Discharging on chronic baseline O2 need at 3L SIRS + on Admission from Pneumonia COPD exacerbation Pseudomonas/MRSA Pneumonia - Blood cultures - No growth - Sputum cultures - Pseudomonas MRSA - IV Cefepime 2g Q12h (based on CrCl) IV Vancomycin 1500 mg - Transition to Linezolid 600 mg PO BID and Ciprofloxacin 750 mg PO BID for 7 days upon discharge - No respiratory distress, ongoing cough, now more productive 04/06 - likely from thick secretion -- continue flutter valve. - Continue PO 30mgs prednisone (Day 8) - cut dose to 20mgs 04/06, plan for taper via Medrol dose javad upon discahrge - Continue DuoNeb QID, Mucinex BID and pulmonary toilet ALFONSO (Resolved) - Home diuretic restarted 04/05 Chronic HFpEF -CT chest showing concern of pulmonary infiltrate and Pul HTN - Received Lasix 40 mg IV in ED with rise in creatinine. * Patient on Bumex 2 mg qAM at baseline - held on admission, restarted Bumex 1 mg qAM 04/05, clinically improved 04/06 * Continue Bumex at 1 mg qAM upon discharge Elevated Troponin - Likely 2/2 demand ischemia COVID + - Likely 2/2 recent infection 02/11/23 Multifocal atrial tachycardia - Continue metoprolol and diltiazem BPH - Continue finasteride and Flomax HTN -Continue metoprolol and diltiazem as above Disposition: [facility] Code: DNR/DNI Diet: Heart healthy, low-sodium, easy to chew DVT prophylaxis: Heparin (2) Bronchiectasis: (3) COPD exacerbation: (4) Elevated troponin: (5) Sepsis: (6) Pneumonia: (7) History of COVID-19: (8) Multifocal atrial tachycardia: (9) (HFpEF) heart failure with preserved ejection fraction: (10) BPH (benign prostatic hyperplasia): (11) Hypertension: (12) Leukocytosis: (13) Elevated serum creatinine: Total Time Total Time Spent Total Time Spent (In Minutes): See attending attestation Discharge Plan Discharge Items Patient Disposition: Transfer Nursing Home Fac Reason For Visit: HYPOXIA Discharge Diagnosis: Pseudomonas Pneumonia COPD Exacerbation Activity: Per Instructions section Non-emergency contact: Primary Care Provider Call non-emergency contact if: you have any medication questions and your symptoms worsen Follow-up/Referrals: ProTyler MD [Primary Care Provider] - 04/16/23 11:00 am (APPOINTMENT WITH [facility]) Diet: Heart Healthy Addtl Attending Provider Instructions: Patient is an 87-year-old male with past medical history of bronchiectasis, COPD (3L O2 @ baseline) diastolic heart failure, hypothyroidism, and hypertension returns to the hospital for hypoxia (sent from [facility]). Patient has had complicated past couple of months with multiple admissions to the hospital in relation to respiratory failure. Suspect respiratory failure is multifactorial, likely COPD exacerbation + Pseudomonas PNA. Patient received BiPAP on admission and is currently stable on 3L NC. Acute on chronic hypoxic Respiratory Failure - Now on chronic baseline O2 need at 3L - No respiratory distress, ongoing cough, now more productive 04/06 COPD exacerbation Pseudomonas Pneumonia - Blood cultures - No growth - Sputum cultures - Pseudomonas (collected 04/03, resulted 04/06) - WBC elevation from steroids - Completed course of Doxycycline - Continue PO 30mgs prednisone (Day 8) - cut dose to 20mgs 04/06, plan for taper via Medrol dose javad upon discahrge - Continue DuoNeb QID, Mucinex BID and pulmonary toilet - Received single dose of Ceftriaxone 1g IV 04/05, transitioned to IV Cefepime 2g Q12h (based on CrCl) for Pseudomonas coverage - Cultures grew additional MRSA on 04/06, patient received single dose of IV Vancomycin 1500 mg - Transition to Linezolid 600 mg PO BID for 7 days (MRSA coverage) and Ciprofloxacin 750 mg PO BID for 7 days (Pseudomonas coverage) upon discharge ALFONSO (Resolved) - Continue to trend Cr (0.94 on 04/05) - Home diuretic restarted 04/05 SIRS + on Admission from Pneumonia - Started on broad spectrum abx on admission, no source of infection identified, broad spectrum d/c on 03/30 - Sputum cultures obtained 04/03 growing Pseudomonas, start Cefepime 04/06 . Chronic HFpEF -CT chest showing concern of pulmonary infiltrate and Pul HTN - Received Lasix 40 mg IV in ED with rise in creatinine. - Evidence of bibasilar crackles and increased LE edema on 04/05 * Patient on Bumex 2 mg qAM at baseline - held on admission, restarted Bumex 1 mg qAM 04/05, clinically improved 04/06 * Continue Bumex at 1 mg qAM upon discharge Elevated Troponin - Likely 2/2 demand ischemia COVID + - Likely 2/2 recent infection 02/11/23 Multifocal atrial tachycardia - Continue metoprolol and diltiazem BPH - Continue finasteride and Flomax HTN -Continue metoprolol and diltiazem as above Disposition: Stable for discharge, pending [facility], likely Thursday Code: DNR/DNI Diet: Heart healthy, low-sodium, easy to chew DVT prophylaxis: Heparin Pending Studies at Discharge: No Stand-Alone Forms: My [facility] Skilled Items Patient informed of condition?: Yes DNR: Yes Discharge Level of Care: Skilled Communicable Disease: No Discharge Prognosis: Stable Lines: None Urinary Catheter: No Medications and DC Order Prescriptions: New Advanced Probiotic 625 mg (10 billion cell) Capsule 2 cap PO DAILY 30 Days Qty: 60 0RF methylprednisolone [Methylpred DP] 4 mg tablets,dose pack 4 mg PO DAILY Qty: 21 0RF ciprofloxacin HCl 750 mg tablet 750 mg PO Q12H 7 Days Qty: 14 0RF linezolid 600 mg tablet 600 mg PO Q12H 7 Days Qty: 14 0RF Continued (DME) Oxygen Home Liters Per Minute See Rx Instructions .Route Rx Instructions: As directed formoterol fumarate [Perforomist] 20 mcg/2 mL Solution For Nebulization 20 mcg NEB BIDR Qty: 120 0RF metoprolol tartrate 25 mg Tablet 25 mg PO BID Qty: 60 0RF Advanced Probiotic 625 mg (10 billion cell) Capsule 2 cap PO DAILY Qty: 60 0RF melatonin 3 mg Tablet 3 mg PO HS Qty: 30 0RF dextromethorphan-guaifenesin 10-100 mg/5 mL Syrup 5 ml PO Q6H PRN (Reason: cough) Qty: 237 0RF budesonide 0.5 mg/2 mL Suspension For Nebulization 0.5 mg NEB BIDR Qty: 60 0RF multivitamin Tablet 1 tab PO QAM Qty: 30 0RF acetaminophen [Tylenol] 325 mg Tablet 650 mg PO Q6H PRN (Reason: FEVER/PAIN) Qty: 60 0RF ipratropium-albuterol 0.5 mg-3 mg(2.5 mg base)/3 mL Solution For Nebulization 3 ml NEB Q6H PRN (Reason: cough/wheeze/dyspnea) Qty: 1 0RF bumetanide 2 mg tablet 2 mg PO QAM Qty: 30 0RF Rx Instructions: May increase to 2 mg BID PRN for weight gain, edema, SOB tobramycin in 0.225 % NaCl [Josue] 300 mg/5 mL solution for nebulization 300 mg inhalation BID 28 Days Qty: 280 0RF Rx Instructions: separate doses by at least 6 hours 28 days on then 28 days off then repeat diltiazem HCl [Tiazac] 180 mg capsule,extended release 24 hr 180 mg PO QAM 30 Days Qty: 30 0RF sodium chloride 3 % solution for nebulization 4 ml inhalation BID Qty: 120 0RF Rx Instructions: 28 days on, 28 days off omeprazole 40 mg capsule,delayed release(DR/EC) 40 mg PO DAILY Qty: 30 0RF tamsulosin 0.4 mg capsule 0.4 mg PO HS Qty: 30 0RF Rx Instructions: ER Nurse and patient's both stated nothing has changed since pt release on February levothyroxine 150 mcg tablet 150 mcg PO QAM Qty: 30 0RF finasteride 5 mg tablet 5 mg PO DAILY Qty: 30 0RF oxycodone 5 mg tablet 2.5 mg PO Q4H PRN (Reason: moderate-severe Pain) Qty: 30 0RF cholecalciferol (vitamin D3) 1,000 unit (25 mcg) tablet 1,000 units PO QAM Qty: 30 0RF diclofenac sodium 1 % gel 2 g topical QID Qty: 100 0RF Rx Instructions: apply to shoulders Discharge Orders: Discharge Order (Routine); Ordered 04/07/23 Ordered By: Cynthia Fernandez Admission Data Admit Date/Time: 03/29/23 23:42 Attending Provider: Ernestine Peng Admit Provider: Jenaro Medina Primary Care Provider: Tyler Hawkins Other Providers: [facility] ; Barbie Valerio ; Tyler Ward ; Buzz Dobson Other Interventions: Discharge Summary Assessment (RN) Last Done: 04/07/23 14:14 Supervising Physician Co-Signing Physician Notes Resident Physician Supervision Note: I independently interviewed and examined the patient and verified the huerta history and physical, reviewed labs and image studies and agree with resident findings and care plan. Resident Activity Tracking Resident Involvement: Resident Care Provided Care Provided: Adult Hospital Medicine
[2023-04-07] MEDS: FINASTERIDE 5 MG TAB PO SCH (08:39)
[2023-04-07] MEDS: guaiFENesin 600 MG TABCR PO SCH (08:40)
[2023-04-07] MEDS: BUMETANIDE 1 MG TAB PO SCH (08:40)
[2023-04-07] MEDS: HEPARIN SOD 5,000 UNIT/0.5 ML VIAL SQ SCH (08:41)
[2023-04-07] MEDS: METOPROLOL TARTRATE 25 MG TAB PO SCH (08:53)
[2023-04-07] MEDS: dilTIAZem HCL 180 MG CAPCR PO SCH (08:53)
[2023-04-07] MEDS ORDERED: predniSONE 20 MG TAB PO SCH (09:00)
[2023-04-07] MEDS ORDERED: ADVANCED PROBIOTIC 1250 MG CAPSULE PO SCH (09:00)
[2023-04-07] MEDS ORDERED: VANCOMYCIN CONSULT ACTIVE PRN (09:36)
[2023-04-07] MEDS ORDERED: VANCOMYCIN HCL 1,500 MG in SODIUM CHLORIDE 0.9% 500 ML IV ONE (10:00)
[2023-04-07] MEDS: PANTOprazole 40 MG TAB PO SCH (10:21)
[2023-04-07] MEDS: DICLOFENAC SOD 1% GEL 100 GM TUBE EXT PRN (10:32)
--- NOTE | 2023-04-07 13:24 | Pharmacy Report ---
Pharmacy PK ABX Note - Date of Service April 07, 2023 - Assessment and Plan Assessment 87 year old M receiving Vancomycin for treatment of MRSA pulmonary infection. Pertinent microbiologic data includes: Positive MRSA Nasal Swab. Sputum culture growing Pseudomonas aeruginosa and MRSA which is resistant to Tetracyclines; sensitive to Bactrim, Vancomycin and Rifampin. Patient is currently receiving Cefepime for Pseudomonas. Vancomycin initiated today for MRSA coverage. Day #1 of antimicrobial therapy. Plan Vancomycin * Loading dose: 1500 mg (18 mg/kg) IV x 1 given this AM. * Maintenance dose: 1500 mg IV every 24 hours to start this evening. * Regimen is predicted to achieve target AUC/REGINALD of 400-600 mg/L.hr * Random Vancomycin level ordered for: 04/09/23 with AM labs. Pharmacy will continue to follow and will adjust dose/frequency as necessary. Thank you. Pharmacy has transitioned to AUC monitoring for vancomycin. AUC/REGINALD is the preferred PK/PD target and is associated with decreased risk of nephrotoxicity compared to traditional trough targets.
[2023-04-07] MEDS ORDERED: VANCOMYCIN HCL 1,500 MG in SODIUM CHLORIDE 0.9% 500 ML IV SCH (20:00)
== END 2023-04-07 16:21 | DRG 871 ==
LOC: ED 21:04 → 2S 23:42 → SUATTDRO 23:42 → 2S 03-30 00:15 → 3E 03-31 21:01

== ENCOUNTER 2023-04-16 09:35 | Inpatient (IN) ==
[2023-04-16] MEDS ORDERED: ACETAMINOPHEN 1,000 MG/100 ML VIAL IV STA (10:11)
[2023-04-16] MEDS ORDERED: SODIUM CHLORIDE 0.9% 1000ML 1,000 ML IV ONE (10:11)
--- NOTE | 2023-04-16 10:14 | XRay Report ---
XR chest 1V portable HISTORY: 87 years-old Male Sepsis COMPARISON: 04/14/2023 TECHNIQUE: AP view of the chest FINDINGS: Cardiac silhouette is enlarged. Emphysema with chronic fibrotic changes. Bibasilar predominant bronch iectasis with left greater than right bibasilar airspace opacities again noted. Small pleural effusio ns are similar to prior. Degenerative changes of the shoulders and spine. IMPRESSION: 1. Cardiomegaly without overt pulmonary edema. 2. Emphysema with chronic fibrotic changes. 3. Small pleural effusions with persistent left greater than right bibasilar consolidation suggestive of an infectious or inflammatory pneumonitis. ACT 112: Negative or not required by law. The above report was generated using voice recognition software. It may contain grammatical, syntax o r spelling errors. Electronically signed by: Denver Will M.D. 04/16/2023 10:13 AM
[2023-04-16] MEDS ORDERED: VANCOMYCIN HCL 1,500 MG in SODIUM CHLORIDE 0.9% 500 ML IV ONE (10:22)
[2023-04-16] MEDS ORDERED: PIPERACILLIN/TAZOBACTAM 4.5 GM/120 ML BAG IV ONE (10:22)
[2023-04-16] MEDS ORDERED: VANCOMYCIN CONSULT ACTIVE PRN ×2 (10:22→13:16)
--- NOTE | 2023-04-16 10:26 | Emergency Department Note ---
History of Present Illness General Chief complaint: Respiratory Distress Stated complaint: RESP. DISTRESS Time Seen by Provider: 04/16/23 09:52 History of Present Illness Maximum Pain Intensity: 4 87-year-old male presents via EMS from [facility], had a recent admission for CHF COPD and pneumonia presents with hypoxia potential fever and increased shortness of breath. Patient was placed on oxy mask by EMS for low saturations. Patient was discharged on approximately April 08 to [facility] for further treatment admission was on BiPAP was also treated for CHF and pneumonia. Patient states he actually feels a little bit improved. Patient denies chest pain. There are no other complaints. Home Medications Medication Instructions Recorded Confirmed Type Oxygen Home 12/31/22 04/14/23 History acetaminophen 325 mg tablet 650 mg PO Q6H PRN FEVER/PAIN #60 03/19/23 04/14/23 Rx (Tylenol) tabs budesonide 0.5 mg/2 mL suspension 0.5 mg (2 mL) NEB BIDR #60 mL 03/19/23 04/14/23 Rx for nebulization bumetanide 2 mg tablet 2 mg PO QAM #30 tabs 03/19/23 04/14/23 Rx cholecalciferol (vitamin D3) 25 1,000 units PO QAM #30 tabs 03/19/23 04/14/23 Rx mcg (1,000 unit) tablet dextromethorphan-guaifenesin 10 5 ml PO Q6H PRN cough #237 mL 03/19/23 04/14/23 Rx mg-100 mg/5 mL oral syrup diclofenac sodium 1 % topical gel 2 g topical QID #100 grams 03/19/23 04/14/23 Rx diltiazem HCl 180 mg capsule,24 180 mg PO QAM 30 days #30 caps 03/19/23 04/14/23 Rx hr,extended release (Tiazac) finasteride 5 mg tablet 5 mg PO DAILY #30 tabs 03/19/23 04/14/23 Rx formoterol fumarate 20 mcg/2 mL 20 mcg (2 mL) NEB BIDR #120 mL 03/19/23 04/14/23 Rx solution for nebulization (Perforomist) ipratropium 0.5 mg-albuterol 3 mg 3 ml NEB Q6H PRN 03/19/23 04/14/23 Rx (2.5 mg base)/3 mL nebulization cough/wheeze/dyspnea #1 box soln levothyroxine 150 mcg tablet 150 mcg PO QAM #30 tabs 03/19/23 04/14/23 Rx melatonin 3 mg tablet 3 mg PO HS #30 tabs 03/19/23 04/14/23 Rx metoprolol tartrate 25 mg tablet 25 mg PO BID #60 tabs 03/19/23 04/14/23 Rx multivitamin 1 tab PO QAM #30 tabs 03/19/23 04/14/23 Rx omeprazole 40 mg capsule,delayed 40 mg PO DAILY #30 caps 03/19/23 04/14/23 Rx release oxycodone 5 mg tablet 2.5 mg PO Q4H PRN moderate-severe 03/19/23 04/14/23 Rx Pain #30 tabs sodium chloride 3 % for 4 ml inhalation BID #120 mL 03/19/23 04/14/23 Rx nebulization tamsulosin 0.4 mg capsule 0.4 mg PO HS #30 caps 03/19/23 04/14/23 Rx tobramycin 300 mg/5 mL in 0.225 % 300 mg (5 mL) inhalation BID 28 03/19/23 04/14/23 Rx sodium chloride for nebulization days #280 mL (Josue) L.acidop,casei,lactis,rham-B.lact,lisa 2 cap PO DAILY 30 days #60 caps 04/06/23 04/14/23 Rx 625 mg (10 billion cell) capsule (Advanced Probiotic) methylprednisolone 4 mg tablets in 4 mg PO DAILY #21 ea 04/06/23 04/14/23 Rx a dose pack (Methylpred DP) magnesium hydroxide 400 mg/5 mL 5 ml PO DAILY PRN 04/14/23 04/14/23 History oral suspension (Milk of Magnesia) revefenacin 175 mcg/3 mL solution 175 mcg (3 mL) inhalation DAILY 04/14/23 0 04/14/23 Rx for nebulization (Yupelri) #90 mL Allergies Allergy/AdvReac Type Severity Reaction Status Date / Time clarithromycin Allergy Intermediate RASH Verified 02/18/23 15:22 Past Med/Surg History Medical History Acute and chronic respiratory failure Acute on chronic kidney failure Avulsion injury of right elbow region Back problem BPH (benign prostatic hyperplasia) C. difficile diarrhea Candidal diaper rash Cellulitis of both lower extremities Cellulitis of left leg Cellulitis of left lower extremity CHI (closed head injury) Chronic obstructive pulmonary disease Chronic respiratory failure with hypoxia Closed hip fracture Contusion of elbow Contusion of face COPD (chronic obstructive pulmonary disease) Dyspnea and respiratory abnormalities Early satiety Elevated troponin Fluid retention in legs GERD (gastroesophageal reflux disease) Hematoma of right lower extremity History of bronchitis Hypernatremia Hypertension Hypothyroidism Left lumbar radiculopathy Leg length discrepancy Livedo reticularis Lumbar spinal stenosis Lymphedema MRSA (methicillin resistant Staphylococcus aureus) Multifocal pneumonia On home oxygen therapy 02 2LPM AT HS Osteoarthritis Personal history of MRSA (methicillin resistant Staphylococcus aureus) Pneumonia due to COVID-19 virus Pseudomonas aeruginosa infection Pulmonary nodule Sepsis Skin tear Sleep apnea cpap Spinal stenosis Syncope Urethral stricture Vitamin D deficiency Wheezing Surgical History History of cardiac cath 12/2019 - [place] - increased edema - no stents/angioplasty History of cholecystectomy History of colonoscopy History of herniorrhaphy left inguinal History of partial knee replacement left History of tonsillectomy History of tooth extraction Hx of surgical procedure LEFT FEMUR FX WITH REPAIR Family History Mother Cerebral atherosclerosis Father Diverticulosis Other No significant family history Denies family history of Ovarian cancer Prostate cancer Myocardial infarction Breast cancer Colorectal cancer Social History Smoking Status: Former smoker Tobacco Type: Cigarettes Age Started Using Tobacco: 22; packs per day: 1; Cigarettes Per Day: 20; Second Hand Exposure: No; Do You Dip or Chew Tobacco: No; Hx Alcohol Use: No Hx Substance Use: No Preferred Language: Iranian Communication Ability: Effective Visual Impairment: No Limitations 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 Beliefs That Will Affect Care: None marital status: Current Living Situation: Spouse current occupational status: retired Feels Safe at Home: Yes Dental Care, Regularly: No Physical Activity Frequency: 1-2 Times per Week Seatbelt Use: always Sunscreen Use: Yes Assistive Devices: Glasses, Hearing Aid - Bilateral, Oxygen - Continuous and Walker Review of Systems Unobtainable due to cognitive status Physical Exam Vital Signs Vital Signs - 24 hr 04/16/23 09:39 08/03/23 09:46 04/16/23 09:59 Temperature Temperature Source Pulse Rate 132 H 141 H Respiratory Rate 20 Pulse Oximetry 95 50 L Oxygen Delivery Method Oxymask Nasal Cannula Oxymask Oxygen Flow Rate 9 4 Sepsis Recent Fever Within 48 Hours No Sepsis New/Unexplained Change in Mental Status No Sepsis Action Taken by Nursing No Action Required Oxygen Flow Rate - Titration 9 Pulse Oximetry Post Tiitration 95 04/16/23 10:05 04/16/23 10:50 Temperature 37.5 C Temperature Source Oral Pulse Rate Respiratory Rate Pulse Oximetry Oxygen Delivery Method Oxymask Oxygen Flow Rate 6 Sepsis Recent Fever Within 48 Hours Sepsis New/Unexplained Change in Mental Status Sepsis Action Taken by Nursing Oxygen Flow Rate - Titration Pulse Oximetry Post Tiitration GENERAL: Patient is awake alert in mild respiratory distress, ill-appearing EYES: The conjunctivae are clear. The pupils are round and reactive. EARS, NOSE, MOUTH AND THROAT: The nose is without any evidence of any deformity. Mucous membranes are moist. Tongue is midline. NECK: The neck is nontender and supple. RESPIRATORY: Normal respiratory effort is noted there is no evidence of wheezing rhonchi or rales CARDIOVASCULAR: Tachycardia noted there no murmurs rubs or gallops normal S1 normal S2. GASTROINTESTINAL: The abdomen is soft. Abdomen is nontender. exam Carrero catheter is present BACK: No midline tenderness or or step-off noted range of motion in flexion extension as well as rotation no signs of muscle spasm noted MUSCULOSKELETAL/EXTREMITIES: There is no evidence of gross deformity full range of motion is noted in the hips and shoulders. Patient has bilateral lower extremity pitting edema with erythema anteriorly SKIN: Erythema noted to the bilateral anterior shins NEUROLOGIC: Patient is awake alert; is able to speak to me and answer questions Course Reevaluation(s) Reevaluation #1: Patient on repeat examination is resting in no distress he is in no respiratory distress he is conversant with me is actually stating that he would like something to drink. Patient's heart rate is 120 the monitor seems to be indicating that he has an SVT however his pulse rate is approximately 120 on my examination. Patient was given IV fluids judiciously as he has a history of CHF and his chest x-ray appears to be CHF with potentially pneumonia therefore he was not given 30 mL/kg of IV fluids. Patient was given Zosyn and vancomycin as well and he was given 1 dose of IV Cardizem 10 mg. Time: 11:20 Administered Medications Discontinued Medications Diltiazem HCl (Diltiazem Hcl 5 Mg/Ml 5 Ml Vial) 10 mg IV NOW STA Stop: 04/16/23 11:02 Last Admin: 04/16/23 11:11 Dose: 10 mg Documented By: BRIE Co-signed By: SIERRA Sodium Chloride (Nss 1000ml) 1,000 mls @ 999 mls/hr IV .Q1H1M ONE Stop: 04/16/23 11:11 Last Admin: 04/16/23 10:30 Dose: 999 mls/hr Documented By: DRE Acetaminophen (Ofirmev) 1,000 mg in 100 mls @ 400 mls/hr IV NOW STA Stop: 04/16/23 10:25 Last Infusion: 04/16/23 11:12 Dose: 0 mls/hr Documented By: Admin: 04/16/23 10:30 Dose: 400 mls/hr Documented By: DRE Piperacillin Sod/Tazobactam Sod (Zosyn) 4.5 gm in 120 mls @ 240 mls/hr IV NOW ONE Stop: 04/16/23 10:51 Last Admin: 04/16/23 10:55 Dose: 240 mls/hr Documented By: DRE Critical Care Time Critical Care Time: Yes Total Critical Care Time: 40 I have personally spent greater than 40 minutes of critical care time in the direct management of this patient. This includes bedside care, interpretation of diagnostic studies, and testing, discussion with consultants, patient, and family members, and other required patient management activities. These minutes are in excess of all separately billable procedures. Medical Decision Making Medical Records Attestation: I reviewed the patient's medical records. Home Medications Current Medication List: was personally reviewed by me Laboratory Data Attestation: I reviewed the patient's lab results. 04/16/23 09:52 04/16/23 09:52 Lab Results 04/16/23 04/16/23 04/16/23 Range/Units 09:52 09:52 09:52 WBC 22.47 H (4.8-10.8) K/ul RBC 4.57 L (4.70-6.10) M/uL Hgb 12.0 L (14.0-18.0) g/dl Hct 38.7 L (42.0-52.0) % MCV 84.7 (80.0-100.0) fL MCH 26.3 (25.0-34.0) pg MCHC 31.0 L (32.0-36.0) g/dL RDW Std Deviation 62.1 H (36.4-46.3) fL RDW Coeff of Jordan 20.3 H (11.5-14.5) % Plt Count 112 L (130-400) K/uL MPV 11.1 (9.4-12.4) fL PT 10.5 (9.0-12.0) Seconds INR 1.0 (0.9-1.1) APTT 24.7 (21.0-31.0) Seconds PTT Ratio 0.9 Sodium 141 (136-145) mmol/L Potassium 4.4 (3.5-5.1) mmol/L Chloride 101 (98-107) mmol/L Carbon Dioxide 33 H (21-32) mmol/L Anion Gap 7 (3-11) BUN 35 H (6-23) mg/dl Creatinine 1.13 (0.6-1.4) mg/dl Est Cr Clr Drug Dosing 51.5 ml/min Est GFR ( Amer) 67.8 ml/min Est GFR (Non-Af Amer) 58.5 ml/min BUN/Creatinine Ratio 31.0 H (10-20) Glucose 114 H (70-99(Fasting)) mg/dl Lactate (0.4-2.0) mmol/L Calcium 8.8 (8.6-10.3) mg/dl Magnesium 1.9 (1.7-2.4) mg/dl Total Bilirubin 1.0 (0.2-1.0) mg/dl Direct Bilirubin 0.2 (0-0.2) mg/dl AST 14 (13-39) U/L ALT 17 (7-52) U/L Alkaline Phosphatase 58 (34-104) U/L Total Protein 6.3 (6.0-8.3) gm/dl Albumin 3.1 L (3.4-5.0) gm/dl SARS-CoV-2, RNA, NAAT (NEGATIVE) 04/16/23 04/16/23 Range/Units 09:52 09:57 WBC (4.8-10.8) K/ul RBC (4.70-6.10) M/uL Hgb (14.0-18.0) g/dl Hct (42.0-52.0) % MCV (80.0-100.0) fL MCH (25.0-34.0) pg MCHC (32.0-36.0) g/dL RDW Std Deviation (36.4-46.3) fL RDW Coeff of Jordan (11.5-14.5) % Plt Count (130-400) K/uL MPV (9.4-12.4) fL PT (9.0-12.0) Seconds INR (0.9-1.1) APTT (21.0-31.0) Seconds PTT Ratio Sodium (136-145) mmol/L Potassium (3.5-5.1) mmol/L Chloride (98-107) mmol/L Carbon Dioxide (21-32) mmol/L Anion Gap (3-11) BUN (6-23) mg/dl Creatinine (0.6-1.4) mg/dl Est Cr Clr Drug Dosing ml/min Est GFR ( Amer) ml/min Est GFR (Non-Af Amer) ml/min BUN/Creatinine Ratio (10-20) Glucose (70-99(Fasting)) mg/dl Lactate 2.1 H* (0.4-2.0) mmol/L Calcium (8.6-10.3) mg/dl Magnesium (1.7-2.4) mg/dl Total Bilirubin (0.2-1.0) mg/dl Direct Bilirubin (0-0.2) mg/dl AST (13-39) U/L ALT (7-52) U/L Alkaline Phosphatase (34-104) U/L Total Protein (6.0-8.3) gm/dl Albumin (3.4-5.0) gm/dl SARS-CoV-2, RNA, NAAT NEGATIVE (NEGATIVE) Imaging Data Attestation: I personally reviewed and interpreted this imaging study as follows: Radiologist's Impression: Chest X-Ray 04/16/23 09:52 XR chest 1V portable HISTORY: 87 years-old Male Sepsis COMPARISON: 04/14/2023 TECHNIQUE: AP view of the chest FINDINGS: Cardiac silhouette is enlarged. Emphysema with chronic fibrotic changes. Biba silar predominant bronchiectasis with left greater than right bibasilar airspace opacities again noted. Small pleural effusions are similar to prior. Degenerative changes of the shoulders and spine. IMPRESSION: 1. Cardiomegaly without overt pulmonary edema. 2. Emphysema with chronic fibrotic changes. 3. Small pleural effusions with persistent left greater than right bibasilar consolidation suggestive of an infectious or inflammatory pneumonitis. ACT 112: Negative or not required by law. The above report was generated using voice recognition software. It may contain grammatical, syntax or spelling errors. Electronically signed by: Denver Will M.D. 04/16/2023 10:13 AM ECG Data Attestation: I personally reviewed and interpreted this ECG as follows: Additional Comments: EKG interpreted by me sinus tachycardia rate of 120 left axis deviation occas ional PVCs poor R wave progression the precordium no obvious ST segment elevation or depression Telemetry was ordered by me, interpreted as sinus tachycardia rate of 120 MDM Narrative Medical decision making differential diagnosis includes COPD exacerbation, pneumonia, CHF, metabolic derangement, sepsis Plan is to check sepsis labs [facility] Patient's discharge summary from March was reviewed by me Impression & Plan Pneumonia, Hypoxia, Sepsis, Elevated troponin, CHF (congestive heart failure) Discharge Plan Visit Data Chief Complaint: Respiratory Distress Stated Complaint: RESP. DISTRESS ED Provider: Earl Edouard Discharge Problem: Pneumonia, Hypoxia, Sepsis, Elevated troponin, CHF (congestive heart failure) Patient Disposition: Admitted As Inpatient Forms Stand Alone Forms: My [facility] [facility] Prescriptions Prescriptions: No Action Yupelri 175 mcg/3 mL solution for nebulization 175 mcg inhalation DAILY Qty: 90 2RF magnesium hydroxide [Milk of Magnesia] 400 mg/5 mL suspension 5 ml PO DAILY PRN (DME) Oxygen Home Liters Per Minute See Rx Instructions .Route Rx Instructions: As directed formoterol fumarate [Perforomist] 20 mcg/2 mL Solution For Nebulization 20 mcg NEB BIDR Qty: 120 0RF metoprolol tartrate 25 mg Tablet 25 mg PO BID Qty: 60 0RF melatonin 3 mg Tablet 3 mg PO HS Qty: 30 0RF dextromethorphan-guaifenesin 10-100 mg/5 mL Syrup 5 ml PO Q6H PRN (Reason: cough) Qty: 237 0RF budesonide 0.5 mg/2 mL Suspension For Nebulization 0.5 mg NEB BIDR Qty: 60 0RF multivitamin Tablet 1 tab PO QAM Qty: 30 0RF acetaminophen [Tylenol] 325 mg Tablet 650 mg PO Q6H PRN (Reason: FEVER/PAIN) Qty: 60 0RF ipratropium-albuterol 0.5 mg-3 mg(2.5 mg base)/3 mL Solution For Nebulization 3 ml NEB Q6H PRN (Reason: cough/wheeze/dyspnea) Qty: 1 0RF bumetanide 2 mg tablet 2 mg PO QAM Qty: 30 0RF Rx Instructions: May increase to 2 mg BID PRN for weight gain, edema, SOB tobramycin in 0.225 % NaCl [Josue] 300 mg/5 mL solution for nebulization 300 mg inhalation BID 28 Days Qty: 280 0RF Rx Instructions: separate doses by at least 6 hours 28 days on then 28 days off then repeat diltiazem HCl [Tiazac] 180 mg capsule,extended release 24 hr 180 mg PO QAM 30 Days Qty: 30 0RF sodium chloride 3 % solution for nebulization 4 ml inhalation BID Qty: 120 0RF Rx Instructions: 28 days on, 28 days off omeprazole 40 mg capsule,delayed release(DR/EC) 40 mg PO DAILY Qty: 30 0RF tamsulosin 0.4 mg capsule 0.4 mg PO HS Qty: 30 0RF Rx Instructions: ER Nurse and patient's both stated nothing has changed since pt release on February levothyroxine 150 mcg tablet 150 mcg PO QAM Qty: 30 0RF finasteride 5 mg tablet 5 mg PO DAILY Qty: 30 0RF oxycodone 5 mg tablet 2.5 mg PO Q4H PRN (Reason: moderate-severe Pain) Qty: 30 0RF cholecalciferol (vitamin D3) 1,000 unit (25 mcg) tablet 1,000 units PO QAM Qty: 30 0RF diclofenac sodium 1 % gel 2 g topical QID Qty: 100 0RF Rx Instructions: apply to shoulders Advanced Probiotic 625 mg (10 billion cell) Capsule 2 cap PO DAILY 30 Days Qty: 60 0RF methylprednisolone [Methylpred DP] 4 mg tablets,dose pack 4 mg PO DAILY Qty: 21 0RF Referrals Referrals: Pro,Tyler Gomez MD [Primary Care Provider] -
[2023-04-16 10:45] LABS: Appearance Urine Turbid (Clear); Bacteria Urine Automated 4+ (Negative); Bilirubin Urine Negative (Negative); Blood Urine Negative (Negative); Color Urine Dark Yellow; Epithelial Cell Urine Auto 0-5 /lpf (0-5); Glucose Urine UA Negative (Negative); Ketones Urine Negative (Negative); Leukocyte Esterase Urine 1+ (Negative); Nitrite Urine Positive (Negative); Protein Urine 1+ (Negative); RBC Urine Automated 0-4 /hpf (0-4); Specific Gravity Urine 1.019 (1.000-1.030); Urobilinogen Urine Negative (Negative); pH Urine 5.5 (4.5-7.5)
[2023-04-16 10:48] LABS: Hematocrit (blood only) 38.7 % (42.0-52.0); Mean Corpuscular Hemoglobin 26.3 pg (25.0-34.0); Mean Corpuscular Volume 84.7 fL (80.0-100.0); Mean Platelet Volume 11.1 fL (9.4-12.4); Platelet Count 112 K/uL (130-400); RDW Coefficient of Variation 20.3 % (11.5-14.5); RDW Standard Deviation 62.1 fL (36.4-46.3); Red Blood Count 4.57 M/uL (4.70-6.10); White Blood Count 22.47 K/ul (4.8-10.8)
[2023-04-16] MEDS ORDERED: dilTIAZem HCl 5 MG/ML 5 ML VIAL IV STA (11:01)
[2023-04-16 11:08] LABS: Albumin Level 3.1 gm/dl (3.4-5.0); Bilirubin Direct 0.2 mg/dl (0-0.2); Calcium 8.8 mg/dl (8.6-10.3); Creatinine Clr Calc Pharmacy 51.5 ml/min; Est GFR (African American) 67.8 ml/min; Est GFR (Non-African American) 58.5 ml/min; Magnesium 1.9 mg/dl (1.7-2.4); Potassium 4.4 mmol/L (3.5-5.1); Total Protein 6.3 gm/dl (6.0-8.3)
[2023-04-16 11:17] LABS: Partial Thromboplastin Ratio 0.9; Partial Thromboplastin Time 24.7 Seconds (21.0-31.0); Prothrombin Time 10.5 Seconds (9.0-12.0)
[2023-04-16 11:21] LABS: Troponin I High Sensitivity 529.7 pg/ml (0-20)
[2023-04-16 11:23] LABS: Anisocytosis Present; Basophils # (auto) 0.03 K/uL (0-0.2); Basophils % (auto) 0.1 %; Eosinophils # (auto) 0.01 K/uL (0-0.50); Immature Granulocytes # (auto) 0.52 K/uL (0.01-0.20); Immature Granulocytes % (auto) 2.3 %; Lymphocytes # (auto) 0.69 K/uL (1.2-3.4); Lymphocytes % (auto) 3.1 %; Monocytes # (auto) 0.98 K/uL (0.11-0.59); Monocytes % (auto) 4.4 %; Neutrophils # (auto) 20.24 K/uL (1.40-6.50); Neutrophils % (auto) 90.1 %; Polychromasia 1+; Toxic Vacuolation 1+
[2023-04-16 11:25] LABS: Calcium Oxalate Crystals Urine Present (None Prsent)
[2023-04-16 11:28] LABS: Base Excess VBG 6.8 mEq/L; HCO3 VBG 36 mmol/L; Oxygen Saturation VBG 65.9 %; PCO2 VBG 71 mmHg (38-50); PO2 VBG 39 mmHg; pH VBG 7.31 (7.36-7.41)
--- NOTE | 2023-04-16 11:40 | History & Physical Report ---
Date of Service April 16, 2023 Assessment & Plan (1) Acute and chronic respiratory failure: Plan: Sepsis, AHRF 2/2 multifocalpneumonia with acute hypoxic respiratory failure Recently completed 14 days of treatment 04/14 for superimposed Pseudomonas/MRSA pneumonia. Was discharged to rehab to [facility] 03/19/2023, remained until 03/29/2023 and was hospitalized for suspected pneumonia on 03/29 and then was [facility] 04/[facility]. Sputum culture positive for MRSA and Pseudomonas, patient is post COVID 02/11/2023. Last admit/dc treated with cefepime/linezolid in hospital transitioned to high-dose oral ciprofloxacin+linezolid on discharge. Ciprofloxacin 750 mg p.o. every 12 hours and linezolid 600 mg p.o. every 12 hours complete 04/14/2023. Leukocytosis up trended to 22.47, completed steroid taper 04/14 - ABG with acute on chronic respiratory acidosis with incomplete metabolic compensation and hypoxia Sodium normal, potassium normal Creatinine around 1 at baseline, 1.13 on admission Lactate elevated at 2.1 --> normalized post 1L NSS High-sensitivity troponin chronically elevated ranging from [id number], 529.7 on admission. EKG: Sinus tachycardia with PACs, QTc 452, no territorial ST or T wave changes; aberrant conduction noted UA with protein, nitrites, leukocyte esterase, 4+ bacteria. Infected appearing without contamination, no urinary sx. Covered with abx for PNA. COVID-negative Chest x-ray: Cardiomegaly without pulmonary edema. Emphysema with chronic fibrotic changes are noted. Small pleural effusions with persistent left greater than right bibasilar consolidation suggestive of infection versus inflammatory pneumonitis. Prior sputum positive for Pseudomonas and MRSA. Pseudomonas with intermediate gentamicin sensitivity, otherwise sensitive to usual agents. MRSA isolate resistant to clindamycin/tetracycline, sensitive to Bactrim/Vanco. Started on Zosyn/vancomycin in ER given Pseudomonas history For renal protection we will switch to cefepime/vancomycin. bactrim /methylpred added as noted - Fluid assessment clinically is challenging, has pitting edema in the lower extremities bilaterally but this is greatly improved from his baseline and his weight is 6 kg lower than prior by bed weight. Lungs are diffusely coarse with bibasilar crackles, chronic fibrotic changes are present and small pleural effusions with bibasilar consolidation are suspicious for CHF versus pneumonia. Has responded favorably to 1L NSS with resolution of lacatate and poor PO intake x several days suggesting intravascularly volume depleted. +500cc plasma lyte given. Follow HR on tele. Rebolus as needed clinically. Initial 30cc/kg sepsis bolus deferred due to hx of CHF. Last BNP around 143, repeat pending Echo pending - CT-Chest: 1. Cardiomegaly and emphysema with superimposed changes of chronic interstitial lung disease. 2. There are small pleural effusions with dense bibasilar airspace consolidation. This has increased from previous, and there is patchy nodular airspace consolidation in the upper lobes. The appearance favors multifocal pneumonia/aspiration pneumonitis. Clinical correlation will be required and radiographic follow-up to resolution is recommended. 3. Additional findings as above. - Pulm consulted. Fibrosis suspected, also at risk for PJP. Will start methylpred 80 q8h, bactrim TID IV, and continue cefe/vanc. Appreciate recommendations. Fungitell/galactomannan sent Chronic respiratory failure 2/2 severe emphysema Chronically on 2 L oxygen at night History of COPD/central lobar severe emphysema Post COVID 02/11/2023, also with superimposed pneumonia as noted Starting December 2022 has been on hypertonic saline twice daily and nebulized tobramycin 28-day cycles PFTs 08/2020: Moderate airflow obstruction without bronchodilator response. FVC 77% predicted (2.96), FEV1 61% predicted (1.75), ratio 59. Former tobacco use Chronic diastolic CHF without acute exacerbation, elevated troponin Last cardiology 03/30/2023. Noted to have significant supply/demand mismatch and chronically elevated troponin although unlikely to have ACS at that time Current troponin remains chronically elevated, although lower than prior. No chest pain, suspect this is demand ischemia in the setting of sepsis. Downtrending post fluids Continue diltiazem/metoprolol Hold diuretics in the setting of elevated lactate and sepsis. Additional IVF deferred as noted TTE 01/24/2023: LVEF 55 to 60%, technically limited study unable to rule out wall motion abnormalities. Normal LV wall size and thickness. History of MAT Diltiazem, metoprolol continued. Patient did take his home metoprolol prior to presentation to the ER this morning Patient is tachycardic [id number], recieved cardizem 10mg IV in ER - Defer additional rate control 2/2 hypovolemia with sepsis. After initial resuscitation will add lopressor IV as needed Hypothyroidism Continue Synthroid Hypertension Bumex held for suspected hypovolemia, sepsis Continue diltiazem Continue metoprolol DVT PPx: Lovenox CODE: DNR/DNI. Pt notes that he is aware that he is underlying lung disease is severe, and if he were to progressively worsen to the point of needing a breathing tube he would not want this. He notes he does not think he would have a good outcome if he were sick enough to need a breathing tube. Did discuss CODE STATUS, patient indicates that if his breathing were to worsen to the point of needing intubation, or if he were to sustain a cardiac or respiratory arrest, he would not want intubation or CPR. Updated to DNR/DNI, notified by phone of conversation as well as this is a change from his paperwork from [facility] which represented full code. His notes that she understands this change, and her goal would be to respect his wishes. Dispo: PCU Diet: HH (2) Sepsis: (3) Elevated troponin: (4) Chronic diastolic CHF (congestive heart failure): (5) COPD exacerbation: (6) Chronic obstructive pulmonary disease: (7) Urinary tract infection: History of Present Illness Primary Care Provider: Tyler Hawkins MD Isma Wesley is an 87-year-old male with a past medical history of emphysema/COPD, bronchiectasis, CHF with preserved ejection fraction, past admissions for acute on chronic respiratory failure with combined hypoxia/hypercapnia, BPH, and hypertension who presented to the emergency department 04/16/2023 by EMS from [facility] for fever, shortness of breath, and hypoxia. Patient was recently admitted and treated for respiratory failure due to CHF, COPD exacerbations with superimposed pneumonia from 03/30/2023 - 04/07/2023. Prior to this had an admission from 02/18/2023 - 03/19/2023 for respiratory failure with COVID-19 pneumonia, COPD exacerbation and during which visit had a extensive discussion of goals of care and family meeting with palliative care. At that visit patient recognizes at the end stage of lung failure which cannot be cured over first and patient continued to have decline despite maximal medical therapies. Recognize CPR would not be likely to produce meaningful benefit and from DNR/DNI status at that time. Patient's preference was to return home to maximize time with family, but his oxygen requirements precluded home support and ultimately did not want a penitentiary. Comfort care versus hospice has been discussed at that time, patient's [id number] had been inpatient comfort care and there was some confusion regarding difference between this and hospice. Ultimately patient improved and was able to be discharged to [facility] at that time. Saw pulmonary 04/14/2023. Noted to be on linezolid and ciprofloxacin at that time, was to continue course for total of 14 days. Is also on tobramycin alternating every 28 days. Rapid steroid taper being performed, Akanksha added. Guarded prognosis overall Per Pt: He reports he was at [facility] and was feeling generally okay for the past few days although he notes a very poor almost absent appetite in the past week. He notes his breathing seem to have improved after his last discharge up until morning of admission when he had very coarse breathing, a feeling of feverishness and chills, and greatly increased shortness of breath with congestion. He has not any chest pain or chest pressure. He has felt lightheaded, but has not passed out. He denies night sweats. He does not have fever/chills at bedside assessment. He does not know if he had a temperature prior to admission. He reports his legs are normally swollen, they are less swollen than normal at bedside assessment. No nausea, vomiting. No abdominal pain. Endorses chronically loose bowel movements, had a C. difficile test previously which was negative. He reports he completed antibiotics per the [facility] records, is not a good historian and reports what ever is in the med rec is what he was taking. Denies any increased salt load. Denies orthopnea, although reports his breathing overall just feels terrible. he notes that he is aware that he is underlying lung disease is severe, and if he were to progressively worsen to the point of needing a breathing tube he would not want this. He notes he does not think he would have a good outcome if he were sick enough to need a breathing tube. Did discuss CODE STATUS, patient indicates that if his breathing were to worsen to the point of needing intubation, or if he were to sustain a cardiac or respiratory arrest, he would not want intubation or CPR. Updated to DNR/DNI, notified by phone of conversation as well as this is a change from his paperwork from [facility] which represented full code. His notes that she understands this change, and her goal would be to respect his wishes Medical History: Reviewed Medications: Reviewed Surgical History: Reviewed Family history: Reviewed Allergies: Reviewed Social History: Reviewed Code Status: Updated to DNR/DNI, see HPI for CODE STATUS discussion Allergies Allergy/AdvReac Type Severity Reaction Status Date / Time clarithromycin Allergy Intermediate RASH Verified 02/18/23 15:22 Home Medications Medication Instructions Recorded Confirmed Type Oxygen Home 12/31/22 04/14/23 History acetaminophen 325 mg tablet 650 mg PO Q6H PRN FEVER/PAIN #60 03/19/23 04/14/23 Rx (Tylenol) tabs budesonide 0.5 mg/2 mL suspension 0.5 mg (2 mL) NEB BIDR #60 mL 03/19/23 04/14/23 Rx for nebulization bumetanide 2 mg tablet 2 mg PO QAM #30 tabs 03/19/23 04/14/23 Rx cholecalciferol (vitamin D3) 25 1,000 units PO QAM #30 tabs 03/19/23 04/14/23 Rx mcg (1,000 unit) tablet dextromethorphan-guaifenesin 10 5 ml PO Q6H PRN cough #237 mL 03/19/23 04/14/23 Rx mg-100 mg/5 mL oral syrup diclofenac sodium 1 % topical gel 2 g topical QID #100 grams 03/19/23 04/14/23 Rx diltiazem HCl 180 mg capsule,24 180 mg PO QAM 30 days #30 caps 03/19/23 04/14/23 Rx hr,extended release (Tiazac) finasteride 5 mg tablet 5 mg PO DAILY #30 tabs 03/19/23 04/14/23 Rx formoterol fumarate 20 mcg/2 mL 20 mcg (2 mL) NEB BIDR #120 mL 03/19/23 04/14/23 Rx solution for nebulization (Perforomist) ipratropium 0.5 mg-albuterol 3 mg 3 ml NEB Q6H PRN 03/19/23 04/14/23 Rx (2.5 mg base)/3 mL nebulization cough/wheeze/dyspnea #1 box soln levothyroxine 150 mcg tablet 150 mcg PO QAM #30 tabs 03/19/23 04/14/23 Rx melatonin 3 mg tablet 3 mg PO HS #30 tabs 03/19/23 04/14/23 Rx metoprolol tartrate 25 mg tablet 25 mg PO BID #60 tabs 03/19/23 04/14/23 Rx multivitamin 1 tab PO QAM #30 tabs 03/19/23 04/14/23 Rx omeprazole 40 mg capsule,delayed 40 mg PO DAILY #30 caps 03/19/23 04/14/23 Rx release oxycodone 5 mg tablet 2.5 mg PO Q4H PRN moderate-severe 03/19/23 04/14/23 Rx Pain #30 tabs sodium chloride 3 % for 4 ml inhalation BID #120 mL 03/19/23 04/14/23 Rx nebulization tamsulosin 0.4 mg capsule 0.4 mg PO HS #30 caps 03/19/23 04/14/23 Rx tobramycin 300 mg/5 mL in 0.225 % 300 mg (5 mL) inhalation BID 28 03/19/23 04/14/23 Rx sodium chloride for nebulization days #280 mL (Josue) L.acidop,casei,lactis,rham-B.lact,lisa 2 cap PO DAILY 30 days #60 caps 04/06/23 04/14/23 Rx 625 mg (10 billion cell) capsule (Advanced Probiotic) methylprednisolone 4 mg tablets in 4 mg PO DAILY #21 ea 04/06/23 04/14/23 Rx a dose pack (Methylpred DP) magnesium hydroxide 400 mg/5 mL 5 ml PO DAILY PRN 04/14/23 04/14/23 History oral suspension (Milk of Magnesia) revefenacin 175 mcg/3 mL solution 175 mcg (3 mL) inhalation DAILY 04/14/23 04/14/23 Rx for nebulization (Yupelri) #90 mL Past Med/Surg History Medical History Acute and chronic respiratory failure Acute on chronic kidney failure Avulsion injury of right elbow region Back problem BPH (benign prostatic hyperplasia) C. difficile diarrhea Candidal diaper rash Cellulitis of both lower extremities Cellulitis of left leg Cellulitis of left lower extremity CHI (closed head injury) Chronic obstructive pulmonary disease Chronic respiratory failure with hypoxia Closed hip fracture Contusion of elbow Contusion of face COPD (chronic obstructive pulmonary disease) Dyspnea and respiratory abnormalities Early satiety Elevated troponin Fluid retention in legs GERD (gastroesophageal reflux disease) Hematoma of right lower extremity History of bronchitis Hypernatremia Hypertension Hypothyroidism Left lumbar radiculopathy Leg length discrepancy Livedo reticularis Lumbar spinal stenosis Lymphedema MRSA (methicillin resistant Staphylococcus aureus) Multifocal pneumonia On home oxygen therapy 02 2LPM AT HS Osteoarthritis Personal history of MRSA (methicillin resistant Staphylococcus aureus) Pneumonia due to COVID-19 virus Pseudomonas aeruginosa infection Pulmonary nodule Sepsis Skin tear Sleep apnea cpap Spinal stenosis Syncope Urethral stricture Vitamin D deficiency Wheezing Surgical History History of cardiac cath 12/2019 - [place] - increased edema - no stents/angioplasty History of cholecystectomy History of colonoscopy History of herniorrhaphy left inguinal History of partial knee replacement left History of tonsillectomy History of tooth extraction Hx of surgical procedure LEFT FEMUR FX WITH REPAIR Family History Mother Cerebral atherosclerosis Father Diverticulosis Other No significant family history Denies family history of Ovarian cancer Prostate cancer Myocardial infarction Breast cancer Colorectal cancer Social History Smoking Status: Former smoker Tobacco Type: Cigarettes Age Started Using Tobacco: 22; packs per day: 1; Cigarettes Per Day: 20; Second Hand Exposure: No; Do You Dip or Chew Tobacco: No; Hx Alcohol Use: No Hx Substance Use: No Preferred Language: Palauan Communication Ability: Effective Visual Impairment: No Limitations Hearing Ability: Normal Boat 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 NAD. Cooperative. Appears fatigued, ill but nontoxic HEENT: Atraumatic, normocephalic. VIsion/hearing intact. EoM intact. Pulm: Diffusely coarse, fine crackles in bases, scattered expiratory wheezes. Symmetrical chest rise. No increased work of breathing. No respiratory distress. Cardiac: tachycardic, -mrg. Radial pulses intact and symmetrical. Abdominal: Nontender, nondistended, soft. BS present. Ext: LE with 1+ pitting edema bilaterally. Sensation and strength in arms, legs, and feet intact and symmetrical. Results & Data Results & Data Vital Signs (Past 12 Hours) Vital Signs Temp Pulse Resp Pulse Ox O2 Del Method O2 Flow Rate 04/16/23 11:20 98 Oxymask 6 04/16/23 10:50 37.5 C 04/16/23 10:05 Oxymask 6 04/16/23 09:59 50 L Nasal Cannula, Oxymask 4 04/16/23 09:46 141 H 04/16/23 09:39 132 H 20 95 Oxymask 9 PG Care Time/CCT Total # of Minutes Spent Total Time Spent with Patient: Total time spent is greater than 50% in coordination of care (as documented) at patient's floor/unit and/or counseling patient: Coding Level of Care Code 58042 INT INP/OBS CARE 3/75MIN Diagnoses Acute and chronic respiratory failure J96.20 Sepsis A41.9 Elevated troponin R77.8 Chronic diastolic CHF (congestive heart failure) I50.32 COPD exacerbation J44.1 Chronic obstructive pulmonary disease J44.9 Urinary tract infection N39.0; R31.9 Hematuria presence: with hematuria Urinary tract infection type: site unspecified (7) Urinary tract infection Hematuria presence: with hematuria Urinary tract infection type: site unspecified Qualified Code(s): N39.0 - Urinary tract infection, site not specified; R31.9 - Hematuria, unspecified
[2023-04-16] MEDS ORDERED: PLASMA-LYTE A 500 ML IV ONE ×2 (11:59→12:54)
[2023-04-16] MEDS ORDERED: METOPROLOL TARTRATE 1 MG/ML VIAL IV SCH (12:00)
[2023-04-16 12:29] LABS: Base Excess ABG 5.6 mEq/L (-9-1.8); HCO3 ABG 33 mmol/L (19-24); Oxygen Saturation ABG 96.1 % (90-95); PCO2 ABG 62 mmHg (35-46); PO2 ABG 72 mmHg (80-95); pH ABG 7.34 (7.35-7.45)
[2023-04-16 12:32] LABS: Allen Test Pos (Pos)
--- NOTE | 2023-04-16 12:46 | CT Scan Report ---
CT SCAN OF THE CHEST WITHOUT IV CONTRAST CLINICAL HISTORY: Sepsis. COMPARISON STUDY: Chest CT dated 03/30/2023. Chest x-ray dated 04/16/2023. TECHNIQUE: CT scan of the thorax was performed from the thoracic inlet to the upper abdomen. Images are reviewed in the axial, sagittal, and coronal planes. IV contrast was not administered for this ex amination as per the referring clinician. A dose lowering technique was utilized adhering to the cody patterson of [place]. CT DOSE: 522.81 mGy.cm FINDINGS: Thyroid: Imaged portions of the thyroid gland are normal in size and attenuation. Thoracic aorta: There is atherosclerotic calcification of the thoracic aorta, which is normal in paula paul and demonstrates standard 3-vessel arch anatomy. Heart: The heart is enlarged and without pericardial effusion. There is diminished attenuation of the cardiac blood pool as compared to the myocardium suggesting anemia. The coronary arteries are densel y calcified. The pulmonary trunk is dilated, measuring up to 3.8 cm. This suggests pulmonary artery h ypertension. Lungs and pleural spaces: Evaluation of the lung parenchyma is modestly degraded by motion artifact. There is advanced emphysema with changes of chronic superimposed interstitial lung disease. There are small pleural effusions and dependent consolidation. There is moderate patchy nodular airspace conso lidation in the upper lobes. Secretions/debris is seen within the trachea and mainstem bronchi. Bronc hiectasis is noted in the lower lobes. Mediastinum: Prominent mediastinal lymph nodes measure up to 10 mm short axis. Lottie: Mildly enlarged left hilar nodes measure up to 10 mm in short axis. Axillae: There is no axillary lymphadenopathy. Upper abdomen: Diverticula are noted in the partially imaged left colon. Partially visualized upper a bdominal viscera is otherwise grossly unremarkable. Skeletal structures: The skeletal structures are osteopenic. Arthritic change is seen in the shoulder s. Degenerative change and hyperkyphosis is noted in the thoracic spine. There is a chronic compressi on deformity of T4. No lytic or blastic bony lesions are seen. 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 IMPRESSION: 1. Cardiomegaly and emphysema with superimposed changes of chronic interstitial lung disease. 2. There are small pleural effusions with dense bibasilar airspace consolidation. This has increased from previous, and there is patchy nodular airspace consolidation in the upper lobes. The appearance favors multifocal pneumonia/aspiration pneumonitis. Clinical correlation will be required and radiogr aphic follow-up to resolution is recommended. 3. Additional findings as above. ACT 112: Negative or not required by law. Electronically signed by: Roosevelt Hairston M.D. 04/16/2023 12:45 PM
[2023-04-16] MEDS ORDERED: ALBUT/IPRATROP 3MG/0.5MG NEB 3 ML VIAL NEB PRN (13:16)
[2023-04-16] MEDS ORDERED: CEFEPIME 2,000 MG in SYRINGE 0 ML IV SCH (13:30)
[2023-04-16] MEDS ORDERED: methylPREDNISolone 125 MG/2 ML VIAL IV ONE (14:30)
[2023-04-16] MEDS: SULFA/TRIMETH 80/16MG/ML 320 MG in DEXTROSE 5% 500 ML IV SCH ×2 (15:27→22:57)
[2023-04-16] MEDS ORDERED: ACETAMINOPHEN 325 MG TAB PO PRN (15:29)
[2023-04-16] MEDS ORDERED: METOPROLOL TARTRATE 1 MG/ML VIAL IV PRN (15:54)
--- NOTE | 2023-04-16 16:07 | Pharmacy Report ---
Pharmacy Vanc AUC Short Note - Date of Service April 16, 2023 - Assessment & Plan Assessment * 87 year old M receiving VANCOMYCIN, CEFEPIME, BACTRIM IV for treatment of sepsis from pulmonary source. * Pertinent microbiologic data includes: Positive MRSA Nasal Swab, 04/03 sputum culture grew MRSA (sens vanco, REGINALD 1) and ps aeruginosa (sens cefepime, REGINALD </=8), 04/16 BLCXs and urine cx ordered * Renal fxn appears to be at baseline * Day # 1 of antimicrobial therapy. Plan Vancomycin * AUC/REGINALD is the preferred PK/PD target for vancomycin * AUC guided dosing is effective and associated with decreased risk of nephrotoxicity compared to traditional trough targets * Loading dose: 1500mg (~19mg/kg) * Maint dose: 1250mg IV Q 24 hrs, to begin at ~2100 tonight, is predicted to achieve target AUC/REGINALD of 400-600 mg/L.hr and may be associated with a 12 % risk of nephrotoxicity * Level ordered for: 04/18 Pharmacy will continue to follow and will adjust dose/frequency as necessary. Thank you.
--- NOTE | 2023-04-16 16:08 | Pulmonary Consultation ---
Date of Consultation April 16, 2023 Assessment & Plan (1) Pneumonia: (2) Sepsis: (3) CHF (congestive heart failure): (4) Acute non-ST elevation myocardial infarction (NSTEMI): Plan -- Acute on chronic respiratory failure with new alvolar infiltrates. Possible exacerbation of bronchectasis, fibrotic ILD exacerbation, vs. fungal PNA -- Agree with: bronchodilator/LABA/ICS/steroids. Start mini-pulse steroids with solumedrol 80 mg IV q8 hrs. Empiric bactrim with fungitell and galactomannan -- Continue coverage for CAP and pseudomonas and PJP for now. -- Once fluid resuscitated, will need diuresis -- DNR/DNI but is medically appropirate for hospice care. Palliative care to follow Will follow with you History of Present Illness Reason for Consultation: COPD / CHF exacerbation Requesting Physician: Dr. Mcqueen Attending Physician: Tony Mcqueen MD History of Present Illness 87 M with hx of advanced COPD, chronic hypoxemic / hypercapnic respiratory failure, bronchectasis, HFpEF, with 5 prior hospitalizations this year. Last admissions was from 03/30 to 04/07/2023 for COPD/CHF exacerbation. In February he had COVID PNA. Presents to ED today for worsening dyspnea. Current CT with new alveolar infiltrates b/l despite being on linezolid, cipro, and tobramycin. He is known to have psudomonas infections in the past and has been on mutliple rounds of high dose steroids this year. In the ED he is dehydrated and required IVF resuscitation with HR in to 140s. Currently he appears more comfortable and continues to have tenous respiratory status. Code status is DNR/DNI. Allergies Allergy/AdvReac Type Severity Reaction Status Date / Time clarithromycin Allergy Intermediate RASH Verified 02/18/23 15:22 Home Medications Medication Instructions Recorded Confirmed Type Oxygen Home 12/31/22 04/14/23 History acetaminophen 325 mg tablet 650 mg PO Q6H PRN FEVER/PAIN #60 03/19/23 04/14/23 Rx (Tylenol) tabs budesonide 0.5 mg/2 mL suspension 0.5 mg (2 mL) NEB BIDR #60 mL 03/19/23 04/14/23 Rx for nebulization bumetanide 2 mg tablet 2 mg PO QAM #30 tabs 03/19/23 04/14/23 Rx cholecalciferol (vitamin D3) 25 1,000 units PO QAM #30 tabs 03/19/23 04/14/23 Rx mcg (1,000 unit) tablet dextromethorphan-guaifenesin 10 5 ml PO Q6H PRN cough #237 mL 03/19/23 04/14/23 Rx mg-100 mg/5 mL oral syrup diclofenac sodium 1 % topical gel 2 g topical QID #100 grams 03/19/23 04/14/23 Rx diltiazem HCl 180 mg capsule,24 180 mg PO QAM 30 days #30 caps 03/19/23 04/14/23 Rx hr,extended release (Tiazac) finasteride 5 mg tablet 5 mg PO DAILY #30 tabs 03/19/23 04/14/23 Rx formoterol fumarate 20 mcg/2 mL 20 mcg (2 mL) NEB BIDR #120 mL 03/19/23 04/14/23 Rx solution for nebulization (Perforomist) ipratropium 0.5 mg-albuterol 3 mg 3 ml NEB Q6H PRN 03/19/23 04/14/23 Rx (2.5 mg base)/3 mL nebulization cough/wheeze/dyspnea #1 box soln levothyroxine 150 mcg tablet 150 mcg PO QAM #30 tabs 03/19/23 04/14/23 Rx melatonin 3 mg tablet 3 mg PO HS #30 tabs 03/19/23 04/14/23 Rx metoprolol tartrate 25 mg tablet 25 mg PO BID #60 tabs 03/19/23 04/14/23 Rx multivitamin 1 tab PO QAM #30 tabs 03/19/23 04/14/23 Rx omeprazole 40 mg capsule,delayed 40 mg PO DAILY #30 caps 03/19/23 04/14/23 Rx release oxycodone 5 mg tablet 2.5 mg PO Q4H PRN moderate-severe 03/19/23 04/14/23 Rx Pain #30 tabs sodium chloride 3 % for 4 ml inhalation BID #120 mL 03/19/23 04/14/23 Rx nebulization tamsulosin 0.4 mg capsule 0.4 mg PO HS #30 caps 03/19/23 04/14/23 Rx tobramycin 300 mg/5 mL in 0.225 % 300 mg (5 mL) inhalation BID 28 03/19/23 04/14/23 Rx sodium chloride for nebulization days #280 mL (Josue) L.acidop,casei,lactis,rham-B.lact,lisa 2 cap PO DAILY 30 days #60 caps 04/06/23 04/14/23 Rx 625 mg (10 billion cell) capsule (Advanced Probiotic) methylprednisolone 4 mg tablets in 4 mg PO DAILY #21 ea 04/06/23 04/14/23 Rx a dose pack (Methylpred DP) magnesium hydroxide 400 mg/5 mL 5 ml PO DAILY PRN 04/14/23 04/14/23 History oral suspension (Milk of Magnesia) revefenacin 175 mcg/3 mL solution 175 mcg (3 mL) inhalation DAILY 04/14/23 04/14/23 Rx for nebulization (Yupelri) #90 mL Patient History Medical History Acute and chronic respiratory failure Acute on chronic kidney failure Avulsion injury of right elbow region Back problem BPH (benign prostatic hyperplasia) C. difficile diarrhea Candidal diaper rash Cellulitis of both lower extremities Cellulitis of left leg Cellulitis of left lower extremity CHI (closed head injury) Chronic obstructive pulmonary disease Chronic respiratory failure with hypoxia Closed hip fracture Contusion of elbow Contusion of face COPD (chronic obstructive pulmonary disease) Dyspnea and respiratory abnormalities Early satiety Elevated troponin Fluid retention in legs GERD (gastroesophageal reflux disease) Hematoma of right lower extremity History of bronchitis Hypernatremia Hypertension Hypothyroidism Left lumbar radiculopathy Leg length discrepancy Livedo reticularis Lumbar spinal stenosis Lymphedema MRSA (methicillin resistant Staphylococcus aureus) Multifocal pneumonia On home oxygen therapy 02 2LPM AT HS Osteoarthritis Personal history of MRSA (methicillin resistant Staphylococcus aureus) Pneumonia due to COVID-19 virus Pseudomonas aeruginosa infection Pulmonary nodule Sepsis Skin tear Sleep apnea cpap Spinal stenosis Syncope Urethral stricture Vitamin D deficiency Wheezing Surgical History History of cardiac cath 12/2019 [place] - increased edema - no stents/angioplasty History of cholecystectomy History of colonoscopy History of herniorrhaphy left inguinal History of partial knee replacement left History of tonsillectomy History of tooth extraction Hx of surgical procedure LEFT FEMUR FX WITH REPAIR Family History Mother Cerebral atherosclerosis Father Diverticulosis Other No significant family history Denies family history of Ovarian cancer Prostate cancer Myocardial infarction Breast cancer Colorectal cancer Social History Smoking Status: Former smoker Tobacco Type: Cigarettes Age Started Using Tobacco: 22; packs per day: 1; Cigarettes Per Day: 20; Second Hand Exposure: No; Do You Dip or Chew Tobacco: No; Hx Alcohol Use: No Hx Substance Use: No Preferred Language: Luxembourgish Communication Ability: Effective Visual Impairment: No Limitations Hearing Ability: Normal Waterfront Director Required: No Beliefs That Will Affect Care: None marital status: Current Living Situation: Spouse current occupational status: retired Feels Safe at Home: Yes Dental Care, Regularly: No Physical Activity Frequency: 1-2 Times per Week Seatbelt Use: always Sunscreen Use: Yes Assistive Devices: Glasses, Hearing Aid - Bilateral, Oxygen - Continuous and Walker Review of Systems Review of Systems: Unable to be obtained due to acuity of condition Physical Exam Physical Exam: Gen: Appears chronically ill CV: tachycardia Resp: audible rhonchi Abd: soft, distended Ext: +3 pitting edema b/l Results & Data Results & Data Vital Signs (Past 12 Hours) Vital Signs Temp Pulse Resp Pulse Ox O2 Del Method O2 Flow Rate 04/16/23 14:01 72 04/16/23 11:20 98 Oxymask 6 04/16/23 10:50 37.5 C 04/16/23 10:05 Oxymask 6 04/16/23 09:59 50 L Nasal Cannula, Oxymask 4 04/16/23 09:46 141 H 04/16/23 09:39 132 H 20 95 Oxymask 9 PG Care Time/CCT Total # of Minutes Spent Total Time Spent with Patient: Total time spent is greater than 50% in coordination of care (as documented) at patient's floor/unit and/or counseling patient: Coding Level of Care Code 53119 INT INP/OBS CARE 2/55MIN Diagnoses Pneumonia J18.9 Sepsis A41.9 CHF (congestive heart failure) I50.9 Acute non-ST elevation myocardial infarction (NSTEMI) I21.4
[2023-04-16] MEDS: Cefepime 2,000 MG Extended Infusion IV SCH (17:35)
--- NOTE | 2023-04-16 17:35 | XCELERA ---
[id number]
[2023-04-16] MEDS: FORMOTEROL 20 MCG/2 ML VIAL NEB SCH (19:54)
[2023-04-16] MEDS: BUDESONIDE 0.5 MG/2 ML VIAL (PULMICORT) NEB SCH (19:55)
[2023-04-16] MEDS ORDERED: VANCOMYCIN HCL 1,250 MG in SODIUM CHLORIDE 0.9% 500 ML IV SCH (21:00)
[2023-04-16] MEDS ORDERED: MELATONIN 3 MG TAB PO SCH (21:00)
[2023-04-16] MEDS ORDERED: TAMSULOSIN HCL 0.4 MG CAP PO SCH (21:00)
[2023-04-16] MEDS: ENOXAPARIN INJ 40 MG/0.4 ML SYR SQ SCH (21:22)
[2023-04-16] MEDS: VANCOMYCIN HCL 1,250 MG in SODIUM CHLORIDE 0.9% 250 ML IV SCH (21:22)
[2023-04-16] MEDS: oxyCODONE HCL IR 5 MG TAB (IMMEDIATE RELEASE) PO PRN (21:35)
[2023-04-16] MEDS: METOPROLOL TARTRATE 25 MG TAB PO SCH (21:36)
[2023-04-16] MEDS ORDERED: methylPREDNISolone 125 MG/2 ML VIAL IV SCH (22:00)
[2023-04-16] MEDS: methylPREDNISolone 80 MG in SYRINGE 0 ML IV SCH (22:58)
[2023-04-17] MEDS: Cefepime 2,000 MG Extended Infusion IV SCH ×3 (01:26→17:26)
[2023-04-17] MEDS ORDERED: LEVOTHYROXINE SODIUM 150 MCG TABLET PO SCH (06:30)
[2023-04-17] MEDS: FORMOTEROL 20 MCG/2 ML VIAL NEB SCH ×2 (07:17→19:07)
[2023-04-17] MEDS: BUDESONIDE 0.5 MG/2 ML VIAL (PULMICORT) NEB SCH ×2 (07:17→19:07)
[2023-04-17 07:31] LABS: Albumin Globulin Ratio 0.9 (0.9-2); Albumin Level 2.8 gm/dl (3.4-5.0); BUN Creatinine Ratio 27.7 (10-20); Bilirubin,Total 0.4 mg/dl (0.2-1.0); C Reactive Protein 12.29 mg/dl (0-0.5); Calcium 8.2 mg/dl (8.6-10.3); Creatinine Clr Calc Pharmacy 44.8 ml/min; Est GFR (African American) 57.3 ml/min; Est GFR (Non-African American) 49.4 ml/min; Magnesium 1.8 mg/dl (1.7-2.4); Potassium 4.6 mmol/L (3.5-5.1); Total Protein 5.8 gm/dl (6.0-8.3)
[2023-04-17 07:35] LABS: Basophils # (auto) 0.02 K/uL (0-0.2); Basophils % (auto) 0.1 %; Hematocrit (blood only) 35.8 % (42.0-52.0); Hemoglobin 10.9 g/dl (14.0-18.0); Immature Granulocytes % (auto) 0.6 %; Lymphocytes # (auto) 0.19 K/uL (1.2-3.4); Lymphocytes % (auto) 1.2 %; Mean Corpuscular Hemoglobin 26.4 pg (25.0-34.0); Mean Corpuscular Hgb Conc 30.4 g/dL (32.0-36.0); Mean Corpuscular Volume 86.7 fL (80.0-100.0); Mean Platelet Volume 10.2 fL (9.4-12.4); Monocytes # (auto) 0.08 K/uL (0.11-0.59); Monocytes % (auto) 0.5 %; Neutrophils # (auto) 16.09 K/uL (1.40-6.50); Neutrophils % (auto) 97.6 %; Platelet Count 92 K/uL (130-400); RBC Morphology Unremarkable; RDW Coefficient of Variation 19.8 % (11.5-14.5); RDW Standard Deviation 62.5 fL (36.4-46.3); Red Blood Count 4.13 M/uL (4.70-6.10); White Blood Count 16.48 K/ul (4.8-10.8)
[2023-04-17] MEDS: SULFA/TRIMETH 80/16MG/ML 320 MG in DEXTROSE 5% 500 ML IV SCH ×3 (08:31→23:35)
[2023-04-17] MEDS: methylPREDNISolone 80 MG in SYRINGE 0 ML IV SCH ×3 (08:35→23:35)
[2023-04-17] MEDS ORDERED: FINASTERIDE 5 MG TAB PO SCH (09:00)
[2023-04-17] MEDS ORDERED: PANTOprazole 40 MG TAB PO SCH (09:00)
[2023-04-17] MEDS ORDERED: dilTIAZem HCL 180 MG CAPCR PO SCH (09:00)
[2023-04-17] MEDS: METOPROLOL TARTRATE 25 MG TAB PO SCH (09:14)
[2023-04-17] MEDS: UMECLIDINIUM BROMIDE 62.5MCG/BLISTER 7 PUFFS/INHALER INH SCH (09:14)
--- NOTE | 2023-04-17 12:48 | Pulmonology Progress Note ---
Date of Service April 17, 2023 Assessment & Plan (1) Pneumonia: (2) Sepsis: (3) CHF (congestive heart failure): (4) Acute non-ST elevation myocardial infarction (NSTEMI): Plan -- Acute on chronic respiratory failure with new alvolar infiltrates. Possible exacerbation of bronchectasis, fibrotic ILD exacerbation, vs. fungal PNA -- Continue bronchodilator/LABA/ICS/steroids. Solumedrol 80 mg IV q8 hrs started on 04/16/2023. Empiric bactrim pending fungitell, also sent galactomannan -- Continue broad abx with pseudomonas and PJP coverage for now with pulse steroids -- Can consider resuming home diuretics -- Prognosis remains poor. DNR/DNI but is medically appropriate for hospice care. Palliative care to follow Will follow with you Admission and Anticipated Discharge Date Admission Date: April 16, 2023 Subjective 04/17/2023. Awake, ate breakfast. Still has diffuse rhonchi this am. Vitals stable. Review of Systems Review of Systems: Denies chest pain, has mild dyspnea, no nausea Physical Exam Physical Exam: Gen: Appears chronically ill CV: tachycardia Resp: audible rhonchi Abd: soft, distended Ext: +3 pitting edema b/l Results & Data Results & Data Vital Signs (Past 12 Hours) Vital Signs Temp Pulse Pulse Resp BP Pulse Ox O2 Del Method 04/17/23 09:00 Oxymask 04/17/23 09:00 95 H 04/17/23 11:12 36.7 C 93 H 19 102/64 93 Oxymask 04/17/23 07:48 36.4 C L 118 H 20 110/69 90 Oxymask 04/17/23 07:18 83 20 94 Oxymask 04/17/23 03:00 36.4 C L 92 H 22 106/66 95 Oxymask O2 Flow Rate 04/17/23 09:00 4 04/17/23 09:00 04/17/23 11:12 04/17/23 07:48 4 04/17/23 07:18 4 04/17/23 03:00 4 PG Care Time/CCT Total # of Minutes Spent Total Time Spent with Patient: Total time spent is greater than 50% in coordination of care (as documented) at patient's floor/unit and/or counseling patient: Coding Level of Care Code 91586 SUB INP/OBS CARE MIN Diagnoses Pneumonia J18.9 Sepsis A41.9 CHF (congestive heart failure) I50.9 Acute non-ST elevation myocardial infarction (NSTEMI) I21.4
--- NOTE | 2023-04-17 15:39 | Palliative Care Consultation ---
Date of Consultation April 17, 2023 Assessment & Plan (1) Palliative care by specialist: Isma + family are well known to me from February 2023 admission. I have discussed this case with primary team and due to time constraints today, I will defer completion of this consult with a family discussion on Thursday.. Palliative Medicine notes [facility] in [facility] for review. From all prior discussions with me, pt was consistent that if he is worsening/transitioning to EOL, he would want comfort. He had also expressed interest in home hospice but it was always less clear if family were comfortable with this option. If he is at the junction where he is continuing to worsen in spite of escalated medical support, then telling him this along with the recommendation to move to comfort care would be the most direct approach for him, as he very consistently looks to his medical teams to given him guidance. Please note, during February admission, family had several perceptions of mixed messages from providers, and this created some mistrust for the family and patient. Would gently encourage that all teams to convey information consistently/use the same language to minimize confusion and same misunderstandings from evolving again. Plan Full consult to be done Thursday. I am available for an urgent ZOOM based family meeting this weekend if desired/please tiger text me to arrange a time. Thank you for allowing us to participate in the ongoing care of this patient. Please don't hesitate to call or page with any additional concerns. Dr. Christie Caraballo DNP Director, Palliative Care History of Present Illness Attending Physician: Uday Kong MD History of Present Illness Isma is well known to the palliative medicine service from February 2023 admission. He was readmitted 03/29/23 and 04/16/23. Prior admissions this year: 04/16/23 - current 03/28/23 - 04/07/23 02/18/23 - 03/19/23 INITIAL PALL MED CONSULT 03/06/23 w/numerous follow up visits and family meetings 02/11/23 - 02/14/23 01/24/23 - 01/30/23 11/25/22 - ED visit with dc 11/06/22 - 11/07/22 10/04/22 - 10/17/22 sent to [facility] Allergies Allergy/AdvReac Type Severity Reaction Status Date / Time clarithromycin Allergy Intermediate RASH Verified 02/18/23 15:22 Home Medications Medication Instructions Recorded Confirmed Type Oxygen Home 12/31/22 04/14/23 History acetaminophen 325 mg tablet 650 mg PO Q6H PRN FEVER/PAIN #60 03/19/23 04/14/23 Rx (Tylenol) tabs budesonide 0.5 mg/2 mL suspension 0.5 mg (2 mL) NEB BIDR #60 mL 03/19/23 04/14/23 Rx for nebulization bumetanide 2 mg tablet 2 mg PO QAM #30 tabs 03/19/23 04/14/23 Rx cholecalciferol (vitamin D3) 25 1,000 units PO QAM #30 tabs 03/19/23 04/14/23 Rx mcg (1,000 unit) tablet dextromethorphan-guaifenesin 10 5 ml PO Q6H PRN cough #237 mL 03/19/23 04/14/23 Rx mg-100 mg/5 mL oral syrup diclofenac sodium 1 % topical gel 2 g topical QID #100 grams 03/19/23 04/14/23 Rx diltiazem HCl 180 mg capsule,24 180 mg PO QAM 30 days #30 caps 03/19/23 04/14/23 Rx hr,extended release (Tiazac) finasteride 5 mg tablet 5 mg PO DAILY #30 tabs 03/19/23 04/14/23 Rx formoterol fumarate 20 mcg/2 mL 20 mcg (2 mL) NEB BIDR #120 mL 03/19/23 04/14/23 Rx solution for nebulization (Perforomist) ipratropium 0.5 mg-albuterol 3 mg 3 ml NEB Q6H PRN 03/19/23 04/14/23 Rx (2.5 mg base)/3 mL nebulization cough/wheeze/dyspnea #1 box soln levothyroxine 150 mcg tablet 150 mcg PO QAM #30 tabs 03/19/23 04/14/23 Rx melatonin 3 mg tablet 3 mg PO HS #30 tabs 03/19/23 04/14/23 Rx metoprolol tartrate 25 mg tablet 25 mg PO BID #60 tabs 03/19/23 04/14/23 Rx multivitamin 1 tab PO QAM #30 tabs 03/19/23 04/14/23 Rx omeprazole 40 mg capsule,delayed 40 mg PO DAILY #30 caps 03/19/23 04/14/23 Rx release oxycodone 5 mg tablet 2.5 mg PO Q4H PRN moderate-severe 03/19/23 04/14/23 Rx Pain #30 tabs sodium chloride 3 % for 4 ml inhalation BID #120 mL 03/19/23 04/14/23 Rx nebulization tamsulosin 0.4 mg capsule 0.4 mg PO HS #30 caps 03/19/23 04/14/23 Rx tobramycin 300 mg/5 mL in 0.225 % 300 mg (5 mL) inhalation BID 28 03/19/23 04/14/23 Rx sodium chloride for nebulization days #280 mL (Josue) L.acidop,casei,lactis,rham-B.lact,lisa 2 cap PO DAILY 30 days #60 caps 04/06/23 04/14/23 Rx 625 mg (10 billion cell) capsule (Advanced Probiotic) methylprednisolone 4 mg tablets in 4 mg PO DAILY #21 ea 04/06/23 04/14/23 Rx a dose pack (Methylpred DP) magnesium hydroxide 400 mg/5 mL 5 ml PO DAILY PRN 04/14/23 04/14/23 History oral suspension (Milk of Magnesia) revefenacin 175 mcg/3 mL solution 175 mcg (3 mL) inhalation DAILY 04/14/23 04/14/23 Rx for nebulization (Yupelri) #90 mL Patient History Medical History Acute and chronic respiratory failure Acute on chronic kidney failure Avulsion injury of right elbow region Back problem BPH (benign prostatic hyperplasia) C. difficile diarrhea Candidal diaper rash Cellulitis of both lower extremities Cellulitis of left leg Cellulitis of left lower extremity CHI (closed head injury) Chronic obstructive pulmonary disease Chronic respiratory failure with hypoxia Closed hip fracture Contusion of elbow Contusion of face COPD (chronic obstructive pulmonary disease) Dyspnea and respiratory abnormalities Early satiety Elevated troponin Fluid retention in legs GERD (gastroesophageal reflux disease) Hematoma of right lower extremity History of bronchitis Hypernatremia Hypertension Hypothyroidism Left lumbar radiculopathy Leg length discrepancy Livedo reticularis Lumbar spinal stenosis Lymphedema MRSA (methicillin resistant Staphylococcus aureus) Multifocal pneumonia On home oxygen therapy 02 2LPM AT HS Osteoarthritis Personal history of MRSA (methicillin resistant Staphylococcus aureus) Pneumonia due to COVID-19 virus Pseudomonas aeruginosa infection Pulmonary nodule Sepsis Skin tear Sleep apnea cpap Spinal stenosis Syncope Urethral stricture Vitamin D deficiency Wheezing Surgical History History of cardiac cath 12/2019 [place] - [place] edema - no stents/angioplasty History of cholecystectomy History of colonoscopy History of herniorrhaphy left inguinal History of partial knee replacement left History of tonsillectomy History of tooth extraction Hx of surgical procedure LEFT FEMUR FX WITH REPAIR Family History Mother Cerebral atherosclerosis Father Diverticulosis Other No significant family history Denies family history of Ovarian cancer Prostate cancer Myocardial infarction Breast cancer Colorectal cancer Social History Smoking Status: Former smoker Tobacco Type: Cigarettes Age Started Using Tobacco: 22; packs per day: 1; Cigarettes Per Day: 20; Second Hand Exposure: No; Do You Dip or Chew Tobacco: No; Hx Alcohol Use: No Hx Substance Use: No Preferred Language: Polish Communication Ability: Effective Visual Impairment: No Limitations Hearing Ability: Normal 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: No Beliefs That Will Affect Care: None marital status: Current Living Situation: [facility] current occupational status: retired Feels Safe at Home: Yes Dental Care, Regularly: No Physical Activity Frequency: 1-2 Times per Week Seatbelt Use: always Sunscreen Use: Yes Assistive Devices: Walker and Wheelchair Results & Data Vital Signs (Past 12 Hours) Vital Signs Temp Pulse Pulse Resp BP Pulse Ox O2 Del Method 04/17/23 15:22 90 04/17/23 09:00 Oxymask 04/17/23 09:00 95 H 04/17/23 11:12 36.7 C 93 H 19 102/64 93 Oxymask 04/17/23 07:48 36.4 C L 118 H 20 110/69 90 Oxymask 04/17/23 07:18 83 20 94 Oxymask O2 Flow Rate 04/17/23 15:22 04/17/23 09:00 4 04/17/23 09:00 04/17/23 11:12 04/17/23 07:48 4 04/17/23 07:18 4 PG Care Time/CCT Total # of Minutes Spent Total Time Spent with Patient: Total time spent is greater than 50% in coordination of care (as documented) at patient's floor/unit and/or counseling patient: Coding Diagnoses Palliative care by specialist Z51.5
[2023-04-17] MEDS: oxyCODONE HCL IR 5 MG TAB (IMMEDIATE RELEASE) PO PRN (16:16)
[2023-04-17] MEDS: VANCOMYCIN HCL 1,250 MG in SODIUM CHLORIDE 0.9% 250 ML IV SCH (20:26)
--- NOTE | 2023-04-17 21:07 | Hospitalist Progress Note ---
Date of Service April 17, 2023 Assessment & Plan (1) Acute and chronic respiratory failure: Plan: acute component 2nd to b/l pneumonia and COPD/bronchiectasis exacerbation in the setting of COVID pneumonia 02/2023, Pseudomonas/MRSA pneumonia 03/2023, and post- COVID fibrosis. he was mildly acidotic yesterday upon admission. he continues to decline globally. he is on maximal medical therapy with high-dose IV steroids, cefepime/vancomycin for gram negative & MRSA pneumonia coverage, and TMP/sulfa for coverage of PJP. cannot rule out fungal pneumonia - fungitell, etc pending. appreciate pulmonary consult & recs. by report from pt's family it sounds as if he is aspirating with all PO intake. he cannot expectorate any sputum due to generalized weakness. prognosis is very, very poor. we discussed this in detail this evening. advised NPO including PO meds, institution of morphine IV prn for air hunger/dyspnea, and to avoid CPAP tonight as this will simply force aspiration material into the airway/lungs. patient apparently has told palliative care and staff that if he declines further he would want to be made comfortable. I believe that by sometime tomorrow we will know if he will have any ability to recover from this illness - I suspect he will not recover however. if any worsening in his status tonight would advise full transition to comfort care measures. (2) Aspiration into respiratory tract: Plan: highly suspicious for such based on family's description of mealtime cough, posturing, etc. see #1 above (3) Sepsis: Plan: 2nd to pneumonia 2nd to UTI broad-spectrum IV abx are on board (4) Urinary tract infection: Plan: 2nd GNR cont cefepime (5) Elevated troponin: Plan: myocardial demand ischemia in setting of sepsis, pneumonia, etc. (6) Chronic diastolic CHF (congestive heart failure): Plan: likely with some element of decompensation takes bumex daily typically mild hypoalbuminemia also contributing to edema consider diuresis (7) COPD exacerbation: Plan: cont IV steroids cont bronchodilators and O2 support keep O2 sats low 90s (8) Chronic obstructive pulmonary disease: (9) Pneumonia: Plan: b/l bacterial vs viral vs fungal appreciate pulmonary consultation & recs (10) Thrombocytopenia: Plan: 2nd to bactrim? 2nd to sepsis? other? 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 (13) BPH (benign prostatic hyperplasia): Plan: cespedes is in place hold flomax and finasteride due to aspiration risk (14) Bronchiectasis: Plan: known dx (15) Hypothyroidism (acquired): Plan: hold synthroid due to aspiration risk Plan DVT proph - lovenox family extensively updated at bedside care d/w palliative care - formal consult placed to them total care time activities today about 50 min complex care coordination Admission and Anticipated Discharge Date Admission Date: April 16, 2023 Subjective during my visit the pt's and multiple children were at bedside patient was lying in bed with oxymask in place there were loud, audible girgling breath sounds from Mr Wesley he was awake but it was very, very difficult to understand his speech voice was dysarthric and hoarse reports that for several days/weeks he has been coughing with eating/drinking he was doing such earlier in the evening when he was taking a meal pt's children reports he has "really gone down hill" over the last few days pt denies pain in any location but does state he is short of breath Review of Systems Review of Systems: limited ROS - denies chest pain or abdominal pain Physical Exam Physical Exam: gen - patient looks very ill, severely fatigued appearing, girgling breath sounds audible without a stethoscope, sickly neck - ?JVD heart - RRR, s1 s2 lungs - diffuse rhonchi/rales/wheeze, mild subcostal retractions, girgling breath sounds abd - soft NT ND BS+ ext - 1+ edema all 4 limbs skin - extensive ecchymoses on all 4 limbs; RUE with serous fluid leaking from the biceps area; triceps area is a small hematoma psych - awake but sleepy, does follow commands, unable to assess orientation Results & Data Results & Data Vital Signs (Past 12 Hours) Vital Signs Temp Pulse Pulse Pulse Resp BP Pulse Ox 04/17/23 19:00 36.5 C 98 H 20 107/64 91 04/17/23 19:07 22 92 04/17/23 16:00 04/17/23 15:36 36.4 C L 88 19 97/61 L 92 04/17/23 15:22 90 04/17/23 11:12 36.7 C 93 H 19 102/64 93 O2 Del Method O2 Flow Rate 04/17/23 19:00 Oxymask 4 04/17/23 19:07 Oxymask 4 04/17/23 16:00 Oxymask 4 04/17/23 15:36 Nasal Cannula 04/17/23 15:22 04/17/23 11:12 Oxymask Laboratory Results Laboratory Results - last 24 hr 04/17/23 04/17/23 06:43 06:43 WBC 16.48 H RBC 4.13 L Hgb 10.9 L Hct 35.8 L MCV 86.7 MCH 26.4 MCHC 30.4 L RDW Std Deviation 62.5 H RDW Coeff of Jordan 19.8 H Plt Count 92 L MPV 10.2 Immature Gran % (Auto) 0.6 Neut % (Auto) 97.6 Lymph % (Auto) 1.2 Bradley % (Auto) 0.5 Eos % (Auto) 0.0 Baso % (Auto) 0.1 Neut # (Auto) 16.09 H Lymph # (Auto) 0.19 L Bradley # (Auto) 0.08 L Eos # (Auto) 0.00 Baso # (Auto) 0.02 Immature Gran # (Auto) 0.10 RBC Morphology Unremarkable Sodium 138 Potassium 4.6 Chloride 101 Carbon Dioxide 32 Anion Gap 5 BUN 36 H Creatinine 1.30 Est Cr Clr Drug Dosing 44.8 Est GFR ( Amer) 57.3 Est GFR (Non-Af Amer) 49.4 BUN/Creatinine Ratio 27.7 H Glucose 119 H Calcium 8.2 L Magnesium 1.8 Total Bilirubin 0.4 D AST 23 ALT 35 Alkaline Phosphatase 51 C-Reactive Protein 12.29 H Total Protein 5.8 L Albumin 2.8 L Globulin 3.0 Albumin/Globulin Ratio 0.9 Diagnostic Findings blood cx's neg to date urine cx - GNR >100,000 PG Care Time/CCT Total # of Minutes Spent Total Time Spent with Patient: Total time spent is greater than 50% in coordination of care (as documented) at patient's floor/unit and/or counseling patient: Coding Level of Care Code 15696 SUB INP/OBS CARE 3/50MIN Diagnoses Acute and chronic respiratory failure J96.20 Aspiration into respiratory tract T17.908A Sepsis A41.9 Urinary tract infection N39.0; R31.9 Hematuria presence: with hematuria Urinary tract infection type: site unspecified Elevated troponin R77.8 Chronic diastolic CHF (congestive heart failure) I50.32 COPD exacerbation J44.1 Chronic obstructive pulmonary disease J44.9 Pneumonia J18.9 Thrombocytopenia D69.6 Anasarca R60.1 History of COVID-19 Z86.16 BPH (benign prostatic hyperplasia) N40.0 Bronchiectasis J47.9 Hypothyroidism (acquired) E03.9 (4) Urinary tract infection Hematuria presence: with hematuria Urinary tract infection type: site unspecified Qualified Code(s): N39.0 - Urinary tract infection, site not specified; R31.9 - Hematuria, unspecified
[2023-04-17] MEDS: ENOXAPARIN INJ 40 MG/0.4 ML SYR SQ SCH (21:51)
--- NOTE | 2023-04-17 22:15 | Electrocardiogram Report ---
Test Reason : Blood Pressure : / mmHG Vent. Rate : 120 BPM Atrial Rate : 120 BPM P-R Int : 116 ms QRS Dur : 072 ms QT Int : 320 ms P-R-T Axes : 054 -37 041 degrees QTc Int : 452 ms Sinus tachycardia with Premature atrial complexes with Aberrant conduction Left axis deviation Anterolateral infarct (cited on or before 16-APR-2023) Abnormal ECG When compared with ECG of 02-APR-2023 08:43, Aberrant conduction is now Present T wave inversion no longer evident in Inferior leads Premature atrial complexes are now Present Confirmed by Kwasi Carter ([id number]) on 04/17/2023 10:15:18 PM Referred By: Confirmed By:Kwasi Carter
[2023-04-18] MEDS: Cefepime 2,000 MG Extended Infusion IV SCH ×2 (01:10→10:14)
[2023-04-18] MEDS: MoRPHine SULFATE 2 MG/ML CARP IV PRN ×5 (01:25→22:25)
[2023-04-18] MEDS: FORMOTEROL 20 MCG/2 ML VIAL NEB SCH ×2 (07:06→19:18)
[2023-04-18] MEDS: BUDESONIDE 0.5 MG/2 ML VIAL (PULMICORT) NEB SCH ×2 (07:06→19:18)
[2023-04-18 08:20] LABS: Hematocrit (blood only) 34.1 % (42.0-52.0); Hemoglobin 10.6 g/dl (14.0-18.0); Mean Corpuscular Hemoglobin 26.4 pg (25.0-34.0); Mean Corpuscular Hgb Conc 31.1 g/dL (32.0-36.0); Mean Platelet Volume 10.3 fL (9.4-12.4); Nucleated RBC # (auto) 0.06 K/uL (0-0.12); Nucleated RBC % (auto) 0.4 %; Platelet Count 88 K/uL (130-400); RDW Coefficient of Variation 19.2 % (11.5-14.5); RDW Standard Deviation 59.8 fL (36.4-46.3); Red Blood Count 4.01 M/uL (4.70-6.10); White Blood Count 15.23 K/ul (4.8-10.8)
[2023-04-18 08:34] LABS: BUN Creatinine Ratio 29.1 (10-20); Calcium 8.2 mg/dl (8.6-10.3); Creatinine Clr Calc Pharmacy 38.5 ml/min; Est GFR (African American) 47.8 ml/min; Est GFR (Non-African American) 41.2 ml/min; Potassium 4.8 mmol/L (3.5-5.1)
[2023-04-18] MEDS: methylPREDNISolone 80 MG in SYRINGE 0 ML IV SCH (08:47)
[2023-04-18] MEDS: SULFA/TRIMETH 80/16MG/ML 320 MG in DEXTROSE 5% 500 ML IV SCH ×2 (08:47→15:40)
[2023-04-18] MEDS: UMECLIDINIUM BROMIDE 62.5MCG/BLISTER 7 PUFFS/INHALER INH SCH (08:47)
--- NOTE | 2023-04-18 12:05 | Pharmacy Report ---
Pharmacy PK ABX Note - Date of Service April 18, 2023 - Assessment and Plan Assessment 87 year old M receiving CEFEPIME/VANCOMCYIN/SEPTRA for treatment of PULM/SEPSIS. Pertinent microbiologic data includes: Positive MRSA Nasal Swab, 04/03 sputum culture grew MRSA (sens vanco, REGINALD 1) and ps aeruginosa (sens cefepime, REGINALD </=8), 04/16 BLCX negative to date, Gram negative bacilli growing in urine culture. Day #3 of antibiotics. SCr seems to be worsening 1.13 --> 1.30 --> 1.51. Cefepime adjusted. Vancomcyin level this morning suggests supratherapeutic dosing at steady state, will decrease dose for tonight. Monitor renal function for further dosing reduction need. Plan Vancomycin * Adjust maintenance dose to 750 mg IV every 24 hours * Regimen is predicted to achieve target AUC/REGINALD of 400-600 mg/L.hr * Random level ordered for tomorrow ~1200. Pharmacy will continue to follow and will adjust dose/frequency as necessary. Thank you. Pharmacy has transitioned to AUC monitoring for vancomycin. AUC/REGINALD is the preferred PK/PD target and is associated with decreased risk of nephrotoxicity compared to traditional trough targets.
--- NOTE | 2023-04-18 12:07 | Pulmonology Progress Note ---
Date of Service April 18, 2023 Assessment & Plan (1) Pneumonia: (2) Sepsis: (3) CHF (congestive heart failure): (4) Acute non-ST elevation myocardial infarction (NSTEMI): Plan -- Acute on chronic respiratory failure with new alvolar infiltrates. Possible exacerbation of bronchectasis, fibrotic ILD exacerbation, vs. fungal PNA -- Continue bronchodilator/LABA/ICS/steroids. Solumedrol 80 mg IV q8 hrs started on 04/16/2023, will reduce to 40 mg iv bid today. Empiric bactrim pending fungitell, if negative can dc. -- Continue broad abx with pseudomonas and PJP coverage for now. Can dc bactrim if fungitell negative, and dc vanco if MRSA swab negative. Will add flagyl tod ay to cover aspiration / anaerobes -- Can consider resuming home diuretics. PRODUCT SPECIALIST evaluation. -- Prognosis remains poor. DNR/DNI but is medically appropriate for hospice care. Will follow with you Admission and Anticipated Discharge Date Admission Date: April 16, 2023 Subjective 04/18/2023. No acute events overnight. NPO due to concerns for recurrent aspiration. Gram negative bacilli in urine. Review of Systems Review of Systems: Denies chest pain, has mild dyspnea, no nausea Physical Exam Physical Exam: Gen: Appears chronically ill CV: tachycardia Resp: audible rhonchi Abd: soft, distended Ext: +3 pitting edema b/l Results & Data Results & Data Vital Signs (Past 12 Hours) Vital Signs Temp Pulse Pulse Resp BP BP Pulse Ox 04/18/23 10:23 36.5 C 102 H 19 111/66 98 04/18/23 09:00 04/18/23 09:00 83 04/18/23 07:22 36.7 C 96 H 21 113/72 99 04/18/23 07:07 86 20 96 04/18/23 02:24 36.1 C L 97 H 28 H 113/73 96 O2 Del Method O2 Flow Rate 04/18/23 10:23 Oxymask 04/18/23 09:00 Oxymask 4 04/18/23 09:00 04/18/23 07:22 Oxymask 04/18/23 07:07 Oxymask 4 04/18/23 02:24 Oxymask 4 PG Care Time/CCT Total # of Minutes Spent Total Time Spent with Patient: Total time spent is greater than 50% in coordination of care (as documented) at patient's floor/unit and/or counseling patient: Coding Level of Care Code 98834 SUB INP/OBS CARE 235MIN Diagnoses Pneumonia J18.9 Sepsis A41.9 CHF (congestive heart failure) I50.9 Acute non-ST elevation myocardial infarction (NSTEMI) I21.4
--- NOTE | 2023-04-18 12:23 | Hospitalist Progress Note ---
Date of Service April 18, 2023 Assessment & Plan (1) Acute and chronic respiratory failure: Plan: acute component 2nd to b/l pneumonia and COPD/bronchiectasis exacerbation in the setting of COVID pneumonia 02/2023, Pseudomonas/MRSA pneumonia 03/2023, and post- COVID fibrosis. he was mildly acidotic upon admission. he continues to decline globally. remains on oxymask. he is aspirating and is NPO; bedside swallow eval went very poorly today. he is on maximal medical therapy with high-dose IV steroids, cefepime/vancomycin for gram negative & MRSA pneumonia coverage, and TMP/sulfa for coverage of PJP. Flagyl added today by ICU attending for anaerobic coverage. cannot rule out fungal pneumonia - fungitell, etc pending. appreciate pulmonary consult & recs. requiring increasing amounts of morphine for air hunger/dyspnea. he has evidence of anasarca. continue supportive care and the steroids/abx as above. if any clinical worsening today would strongly recommend transitioning to comfort care. (2) Aspiration into respiratory tract: Plan: highly suspicious for such based on family's description of mealtime cough, posturing, etc. speech therapy consult appreciated failed swallow eval today cont NPO status (3) Sepsis: Plan: 2nd to pneumonia 2nd to UTI broad-spectrum IV abx are on board await urine cx results blood cx's thus far negative (4) Urinary tract infection: Plan: 2nd GNR cont cefepime (5) Elevated troponin: Plan: myocardial demand ischemia in setting of sepsis, pneumonia, etc. (6) Chronic diastolic CHF (congestive heart failure): Plan: likely with some element of decompensation takes bumex daily typically mild hypoalbuminemia also contributing to edema consider diuresis but hold off for now with rising creatinine (7) COPD exacerbation: Plan: cont IV steroids but lowered to q12h by pulmonary cont bronchodilators and O2 support keep O2 sats low 90s (8) Chronic obstructive pulmonary disease: (9) Pneumonia: Plan: b/l bacterial vs viral vs fungal appreciate pulmonary consultation & recs (10) Thrombocytopenia: Plan: 2nd to bactrim? 2nd to sepsis? other? 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 (13) BPH (benign prostatic hyperplasia): Plan: cespedes is in place hold flomax and finasteride due to aspiration risk (14) Bronchiectasis: Plan: known dx (15) Hypothyroidism (acquired): Plan: hold synthroid due to aspiration risk (16) Acute encephalopathy: Plan: either metabolic from acidosis/pneumonia/UTI/etc vs toxic (morphine) supportive care treat infections etc Plan DVT proph - lovenox extensively updated at bedside prognosis remains very, very poor Admission and Anticipated Discharge Date Admission Date: April 16, 2023 Subjective during my visit pt's was at bedside patient had rough night - required multiple doses of IV morphine for discomfort and/or dyspnea still with excess secretions and girgling breath sounds but not as bad as yesterday still cannot expectorate secretions on his own he has been hallucinating per his we had lengthy discussion about plan of care - proceeding forward with routine care which would necessitate speech consult for bedside swallow vs transitioning to comfort care after I left the room I later heard from staff that he & his wanted to pursue ongoing routine care speech therapy later saw him and he did not pass his bedside swallow tele overnight - sinus tach, copious ectopy Review of Systems Review of Systems: gen - fatigue, weakness cv - no chest pain pulm - dyspnea GI - no pain Physical Exam Physical Exam: gen - tachypneic, I can hear him better today (voice is more clear) but still with considerable secretions in larynx neck - possible JVD heart - tachy, irregular, s1 s2, no obvious murmur lungs - diffuse rhonchi/wheeze with coarse breath sounds, still with some subcostal retractions, girgling breath sounds still present abd - soft NT ND BS+ ext - 1-2+ edema all 4 limbs skin - extensive ecchymoses on all 4 limbs; RUE with dressings in place psych - more awake this am then yesterday Results & Data Results & Data Vital Signs (Past 12 Hours) Vital Signs Temp Pulse Pulse Resp BP BP Pulse Ox 04/18/23 10:23 36.5 C 102 H 19 111/66 98 04/18/23 09:00 04/18/23 09:00 83 04/18/23 07:22 36.7 C 96 H 21 113/72 99 04/18/23 07:07 86 20 96 04/18/23 02:24 36.1 C L 97 H 28 H 113/73 96 O2 Del Method O2 Flow Rate 04/18/23 10:23 Oxymask 04/18/23 09:00 Oxymask 4 04/18/23 09:00 04/18/23 07:22 Oxymask 04/18/23 07:07 Oxymask 4 04/18/23 02:24 Oxymask 4 Laboratory Results Laboratory Results - last 24 hr 04/18/23 04/18/23 04/18/23 07:51 07:51 07:51 WBC 15.23 H RBC 4.01 L Hgb 10.6 L Hct 34.1 L MCV 85.0 MCH 26.4 MCHC 31.1 L RDW Std Deviation 59.8 H RDW Coeff of Jordan 19.2 H Plt Count 88 L MPV 10.3 Absolute Nucleated RBC 0.06 Nucleated RBC % (auto) 0.4 Sodium 133 L Potassium 4.8 Chloride 96 L Carbon Dioxide 32 Anion Gap 5 BUN 44 H Creatinine 1.51 H Est Cr Clr Drug Dosing 38.5 Est GFR ( Amer) 47.8 Est GFR (Non-Af Amer) 41.2 BUN/Creatinine Ratio 29.1 H Glucose 127 H Calcium 8.2 L Random Vancomycin 22.7 H PG Care Time/CCT Total # of Minutes Spent Total Time Spent with Patient: Total time spent is greater than 50% in coordination of care (as documented) at patient's floor/unit and/or counseling patient: Coding Level of Care Code 88893 SUB INP/OBS CARE 2/35MIN Diagnoses Acute and chronic respiratory failure J96.20 Aspiration into respiratory tract T17.908A Sepsis A41.9 Urinary tract infection N39.0; R31.9 Hematuria presence: with hematuria Urinary tract infection type: site unspecified Elevated troponin R77.8 Chronic diastolic CHF (congestive heart failure) I50.32 COPD exacerbation J44.1 Chronic obstructive pulmonary disease J44.9 Pneumonia J18.9 Thrombocytopenia D69.6 Anasarca R60.1 History of COVID-19 Z86.16 BPH (benign prostatic hyperplasia) N40.0 Bronchiectasis J47.9 Hypothyroidism (acquired) E03.9 Acute encephalopathy G93.40 (4) Urinary tract infection Hematuria presence: with hematuria Urinary tract infection type: site unspecified Qualified Code(s): N39.0 - Urinary tract infection, site not specified; R31.9 - Hematuria, unspecified
[2023-04-18] MEDS: metroNIDAZOLE 500 MG/100 ML BAG IV SCH ×2 (12:45→20:01)
[2023-04-18] MEDS: methylPREDNISolone 40 MG in SYRINGE 0 ML IV SCH (20:01)
[2023-04-18] MEDS: ENOXAPARIN INJ 40 MG/0.4 ML SYR SQ SCH (20:02)
[2023-04-18] MEDS ORDERED: VANCOMYCIN HCL 750 MG in SODIUM CHLORIDE 0.9% 250 ML IV SCH (21:00)
[2023-04-18] MEDS ORDERED: Cefepime 2,000 MG Extended Infusion IV SCH (22:00)
[2023-04-19] MEDS: MoRPHine SULFATE 2 MG/ML CARP IV PRN ×5 (00:28→10:43)
[2023-04-19] MEDS: SULFA/TRIMETH 80/16MG/ML 320 MG in DEXTROSE 5% 500 ML IV SCH ×2 (00:29→10:04)
[2023-04-19] MEDS: metroNIDAZOLE 500 MG/100 ML BAG IV SCH (04:51)
[2023-04-19] MEDS: BUDESONIDE 0.5 MG/2 ML VIAL (PULMICORT) NEB SCH (07:17)
[2023-04-19] MEDS: FORMOTEROL 20 MCG/2 ML VIAL NEB SCH (07:17)
[2023-04-19 07:55] LABS: Hematocrit (blood only) 34.3 % (42.0-52.0); Hemoglobin 10.7 g/dl (14.0-18.0); Mean Corpuscular Hemoglobin 26.6 pg (25.0-34.0); Mean Corpuscular Hgb Conc 31.2 g/dL (32.0-36.0); Mean Corpuscular Volume 85.3 fL (80.0-100.0); Mean Platelet Volume 10.4 fL (9.4-12.4); Nucleated RBC # (auto) 0.06 K/uL (0-0.12); Nucleated RBC % (auto) 0.3 %; Platelet Count 95 K/uL (130-400); RDW Coefficient of Variation 19.1 % (11.5-14.5); RDW Standard Deviation 59.1 fL (36.4-46.3); Red Blood Count 4.02 M/uL (4.70-6.10); White Blood Count 22.59 K/ul (4.8-10.8)
[2023-04-19] MEDS ORDERED: ERTAPENEM SODIUM 1,000 MG in SYRINGE 0 ML IV SCH (08:00)
[2023-04-19 08:05] LABS: BUN Creatinine Ratio 28.4 (10-20); Calcium 8.2 mg/dl (8.6-10.3); Creatinine Clr Calc Pharmacy 33.1 ml/min; Est GFR (African American) 39.7 ml/min; Est GFR (Non-African American) 34.3 ml/min
[2023-04-19] MEDS: methylPREDNISolone 40 MG in SYRINGE 0 ML IV SCH (09:43)
[2023-04-19] MEDS: UMECLIDINIUM BROMIDE 62.5MCG/BLISTER 7 PUFFS/INHALER INH SCH (09:44)
[2023-04-19] MEDS ORDERED: ONDANSETRON INJ 2 MG/ML 2 ML VIAL IV PRN (11:57)
[2023-04-19] MEDS ORDERED: MoRPHine SULF/NSS 100 MG/100 ML BAG IV SCH (11:57)
[2023-04-19] MEDS ORDERED: GLYCOPYRROLATE 0.2 MG/ML VIAL IV PRN (11:57)
[2023-04-19] MEDS ORDERED: STAT IV Infusion **Titration per Protocol STA (11:57)
[2023-04-19] MEDS ORDERED: LORazepam 2 MG/1 ML VIAL IV PRN (11:57)
[2023-04-19] MEDS ORDERED: ATROPINE SULFATE 1% OP SOLN 5 ML BTL SL PRN (11:57)
[2023-04-19] MEDS ORDERED: MoRPHine BOLUS from BAG IV PRN (11:57)
--- NOTE | 2023-04-19 16:57 | Death Pronouncement Note ---
Date of Service April 19, 2023 Pronouncement Note Admission Date April 16, 2023 Date and Time of Date of : 04/19/23 Time of : 15:50 Preliminary Cause of (1) Acute and chronic respiratory failure: (2) Sepsis: (3) Pneumonia: (4) Chronic obstructive pulmonary disease: Additional Data Confirmation of : no pulse, no respirations, no heart sounds and pupils fixed and dilated Pronouncement Performed By: Attending Physician Family: at bedside Attending/PCP notified?: Yes Attending physician: Uday Kong MD Was code activated?: No Autopsy requested?: No law examiner notified?: No Coding Level of Care Code None Diagnoses Acute and chronic respiratory failure J96.20 Sepsis A41.9 Pneumonia J18.9 Chronic obstructive pulmonary disease J44.9
--- NOTE | 2023-04-19 16:58 | Discharge Summary ---
Date of Service April 19, 2023 Admission HPI Per Admitting Provider Isma Wesley is an 87-year-old male with a past medical history of emphysema/COPD, bronchiectasis, CHF with preserved ejection fraction, past admissions for acute on chronic respiratory failure with combined hypoxia/h ypercapnia, BPH, and hypertension who presented to the emergency department 04/16/2023 by EMS from [facility] for fever, shortness of breath, and hypoxia. Patient was recently admitted and treated for respiratory failure due to CHF, COPD exacerbations with superimposed pneumonia from 03/30/2023 - 04/07/2023. Prior to this had an admission from 02/18/2023 - 03/19/2023 for respiratory failure with COVID-19 pneumonia, COPD exacerbation and during which visit had a extensive discussion of goals of care and family meeting with palliative care. At that visit patient recognizes at the end stage of lung failure which cannot be cured over first and patient continued to have decline despite maximal medical therapies. Recognize CPR would not be likely to produce meaningful benefit and from DNR/DNI status at that time. Patient's preference was to return home to maximize time with family, but his oxygen requirements precluded home support and ultimately did not want a retirement. Comfort care versus hospice has been discussed at that time, patient's [id number] had been inpatient comfort care and there was some confusion regarding difference between this and hospice. Ultimately patient improved and was able to be discharged to [facility] at that time. Saw pulmonary 04/14/2023. Noted to be on linezolid and ciprofloxacin at that time, was to continue course for total of 14 days. Is also on tobramycin alternating every 28 days. Rapid steroid taper being performed, Akanksha added. Guarded prognosis overall Per Pt: He reports he was at [facility] and was feeling generally okay for the past few days although he notes a very poor almost absent appetite in the past week. He notes his breathing seem to have improved after his last discharge up until morning of admission when he had very coarse breathing, a feeling of feverishness and chills, and greatly increased shortness of breath with congestion. He has not any chest pain or chest pressure. He has felt lightheaded, but has not passed out. He denies night sweats. He does not have fever/chills at bedside assessment. He does not know if he had a temperature prior to admission. He reports his legs are normally swollen, they are less swollen than normal at bedside assessment. No nausea, vomiting. No abdominal pain. Endorses chronically loose bowel movements, had a C. difficile test previously which was negative. He reports he completed antibiotics per the [facility] records, is not a good historian and reports what ever is in the med rec is what he was taking. Denies any increased salt load. Denies orthopnea, although reports his breathing overall just feels terrible. he notes that he is aware that he is underlying lung disease is severe, and if he were to progressively worsen to the point of needing a breathing tube he would not want this. He notes he does not think he would have a good outcome if he were sick enough to need a breathing tube. Did discuss CODE STATUS, patient indicates noelle t if his breathing were to worsen to the point of needing intubation, or if he were to sustain a cardiac or respiratory arrest, he would not want intubation or CPR. Updated to DNR/DNI, notified by phone of conversation as well as this is a change from his paperwork from [facility] which represented full code. His notes that she understands this change, and her goal would be to respect his wishes Medical History: Reviewed Medications: Reviewed Surgical History: Reviewed Family history: Reviewed Allergies: Reviewed Social History: Reviewed Code Status: Updated to DNR/DNI, see [facility] for CODE STATUS discussion Discharge Data Allergies Allergy/AdvReac Type Severity Reaction Status Date / Time clarithromycin Allergy Intermediate RASH Verified 02/18/23 15:22 Consultations 04/16/23 11:38 ED Decision to Admit Stat 04/16/23 13:16 Consult Pulmonology Routine 04/17/23 14:36 Consult Palliative Care Routine Ordered Studies 04/16/23 11:58 CT chest diagnostic wo con Stat Hospital Course (1) Acute and chronic respiratory failure: acute component 2nd to b/l pneumonia and COPD/bronchiectasis exacerbation in the setting of COVID pneumonia 02/2023, Pseudomonas/MRSA pneumonia 03/2023, and post- COVID fibrosis. he was mildly acidotic upon admission. he continues to decline globally. remains on oxymask. he is aspirating and is NPO; bedside swallow eval went very poorly today. he is on maximal medical therapy with high-dose IV steroids, cefepime/vancomycin for gram negative & MRSA pneumonia coverage, and TMP/sulfa for coverage of PJP. Flagyl added today by ICU attending for anaerobic coverage. cannot rule out fungal pneumonia - fungitell, etc pending. appreciate pulmonary consult & recs. requiring increasing amounts of morphine for air hunger/dyspnea. he has evidence of anasarca. continue supportive care and the steroids/abx as above. if any clinical worsening today would strongly recommend transitioning to comfort care. (2) Pneumonia: b/l bacterial vs viral vs fungal appreciate pulmonary consultation & recs (3) Sepsis: 2nd to pneumonia 2nd to UTI broad-spectrum IV abx are on board await urine cx results blood cx's thus far negative Plan DVT proph - lovenox extensively updated at bedside prognosis remains very, very poor Discharge Plan Discharge Items Reason For Visit: AOC RESP FAILURE, MULTIFOCAL PNA Follow-up/Referrals: Tyler Hawkins MD [Primary Care Provider] - Medications and DC Order Prescriptions: No Action Yupelri 175 mcg/3 mL solution for nebulization 175 mcg inhalation DAILY Qty: 90 2RF magnesium hydroxide [Milk of Magnesia] 400 mg/5 mL suspension 5 ml PO DAILY PRN (DME) Oxygen Home Liters Per Minute See Rx Instructions .Route Rx Instructions: As directed formoterol fumarate [Perforomist] 20 mcg/2 mL Solution For Nebulization 20 mcg NEB BIDR Qty: 120 0RF metoprolol tartrate 25 mg Tablet 25 mg PO BID Qty: 60 0RF melatonin 3 mg Tablet 3 mg PO HS Qty: 30 0RF dextromethorphan-guaifenesin 10-100 mg/5 mL Syrup 5 ml PO Q6H PRN (Reason: cough) Qty: 237 0RF budesonide 0.5 mg/2 mL Suspension For Nebulization 0.5 mg NEB BIDR Qty: 60 0RF multivitamin Tablet 1 tab PO QAM Qty: 30 0RF acetaminophen [Tylenol] 325 mg Tablet 650 mg PO Q6H PRN (Reason: FEVER/PAIN) Qty: 60 0RF ipratropium-albuterol 0.5 mg-3 mg(2.5 mg base)/3 mL Solution For Nebulization 3 ml NEB Q6H PRN (Reason: cough/wheeze/dyspnea) Qty: 1 0RF bumetanide 2 mg tablet 2 mg PO QAM Qty: 30 0RF Rx Instructions: May increase to 2 mg BID PRN for weight gain, edema, SOB tobramycin in 0.225 % NaCl [Josue] 300 mg/5 mL solution for nebulization 300 mg inhalation BID 28 Days Qty: 280 0RF Rx Instructions: separate doses by at least 6 hours 28 days on then 28 days off then repeat diltiazem HCl [Tiazac] 180 mg capsule,extended release 24 hr 180 mg PO QAM 30 Days Qty: 30 0RF sodium chloride 3 % solution for nebulization 4 ml inhalation BID Qty: 120 0RF Rx Instructions: 28 days on, 28 days off omeprazole 40 mg capsule,delayed release(DR/EC) 40 mg PO DAILY Qty: 30 0RF tamsulosin 0.4 mg capsule 0.4 mg PO HS Qty: 30 0RF Rx Instructions: ER Nurse and patient's both stated nothing has changed since pt release on February levothyroxine 150 mcg tablet 150 mcg PO QAM Qty: 30 0RF finasteride 5 mg tablet 5 mg PO DAILY Qty: 30 0RF oxycodone 5 mg tablet 2.5 mg PO Q4H PRN (Reason: moderate-severe Pain) Qty: 30 0RF cholecalciferol (vitamin D3) 1,000 unit (25 mcg) tablet 1,000 units PO QAM Qty: 30 0RF diclofenac sodium 1 % gel 2 g topical QID Qty: 100 0RF Rx Instructions: apply to shoulders Advanced Probiotic 625 mg (10 billion cell) Capsule 2 cap PO DAILY 30 Days Qty: 60 0RF methylprednisolone [Methylpred DP] 4 mg tablets,dose pack 4 mg PO DAILY Qty: 21 0RF Admission Data Admit Date/Time: 04/16/23 13:33 Attending Provider: Uday Kong Admit Provider: Tony Mcqueen Primary Care Provider: Tyler Hawkins Other Providers: Tony Mcqueen ; Earl Turner ; Chery Mariano Coding Diagnoses Acute and chronic respiratory failure J96.20 Pneumonia J18.9 Sepsis A41.9
[2023-04-23 18:32] LABS: Fungitell (1-3)-B-D-Glucan 82 pg/mL
== END 2023-04-19 18:30 | disposition expired | DRG 871 ==
LOC: ED 09:35 → EDINP 13:33 → SUATTDRO 13:33 → 2S 15:29